=== PATIENT | female | born 1970 | race Caucasian/White ===

== ENCOUNTER 2022-12-30 23:55 | Emergency (ER) | payer MEDICARE, MEDICAID, SELFPAY ==
[2022-12-30 23:55] VITALS: BP 160/80; PULSE 96; RESP 16; O2SAT 96; BMI 37.3
--- NOTE | 2022-12-31 00:04 | XR_ITS ---
The [address] [address] Patient Name: COLETTE DINH MRN: [id number] date: 1970 Sex: F Assigned Patient Location: ED.MAIN Current Patient Location: ED.MAIN Accession/Order Number: [id number] Exam Date: 12/31/2022 00:20 Report Date: 12/31/2022 01:29 At the request of: SHIRIN WOLFE Procedure: XR ribs LT min 3V w CXR1V EXAM: XR ribs LT min 3V w CXR1V HISTORY: fall, anterolateral left rib injury COMPARISON: None. TECHNIQUE: One view of the chest with frontal and oblique views of the left ribs were obtained. FINDINGS: Cholecystectomy clips are noted. The cardiac silhouette is normal in size. There are medial left basilar opacities. There is no significant pneumothorax or pleural effusion. No acute osseous abnormality is seen. No definite displaced rib fracture is seen. XR/XR ribs LT min 3V w CXR1V IMPRESSION: 1. Medial left basilar opacities which are felt to represent atelectasis. 2. No definite displaced rib fracture is seen. Electronically authenticated by: Thea RAI Date: 12/31/2022 01:29
--- NOTE | 2022-12-31 00:05 | ED_ITS ---
HPI - General Adult General Chief complaint: Fall Stated complaint: FALL L KNEE Time Seen by Provider: 12/31/22 00:00 History of Present Illness HPI narrative: patient arrived by EMS for evaluation of left anterolateral rib cage pain after a fall about 4.5 hours ago. She was walking when she tripped on sidewalk edging and fell forward and to the left, landing onto bent knees, scraping the left knee and striking the left anterolateral chest wall on the ground. No head injury or LOC. NO neck or back injury. No injury to the left UE. She scraped the left knee and applied a bandage and libia wrap to the left knee. She took some tylenol for pain. She said that the left sided rib pain worsened so she called 911 around 1135pm tonight. She received 4mg Zofran IV and 2mg Morphine IV by EMS. Related Data Home Medications Medication Instructions Recorded Confirmed albuterol sulfate 90 mcg/actuation 2 inh inhalation PRN PRN shortness 12/31/22 12/31/22 aerosol inhaler of breath or wheezing aspirin 81 mg capsule 81 mg PO DAILY 12/31/22 12/31/22 atorvastatin 40 mg tablet 40 mg PO DAILY 12/31/22 12/31/22 carvedilol 6.25 mg tablet 6.25 mg PO Q12H 12/31/22 12/31/22 esomeprazole magnesium 40 mg 40 mg PO Q24H 12/31/22 12/31/22 capsule,delayed release fluticasone propionate 110 3 puff inhalation PRN PRN 12/31/22 12/31/22 mcg/actuation HFA aerosol inhaler bronchospasm (Flovent HFA) glipizide 10 mg tablet 20 mg PO BID 12/31/22 12/31/22 hydrochlorothiazide 12.5 mg capsule 12.5 mg PO DAILY 12/31/22 12/31/22 insulin glargine U-300 conc 300 unit subcut 12/31/22 unit/mL (1.5 mL) subcutaneous pen (Bill Astudillo U-300 Insulin) insulin lispro 100 unit/mL subcut 12/31/22 subcutaneous pen lisinopril 5 mg tablet 5 mg PO DAILY 12/31/22 12/31/22 losartan 25 mg tablet 25 mg PO DAILY 12/31/22 12/31/22 metformin 1,000 mg tablet 1,000 mg PO BID 12/31/22 12/31/22 Previous Rx's Medication Instructions Recorded nabumetone 750 mg tablet 750 mg PO BID PRN pain #20 tabs 12/31/22 Allergies Allergy/AdvReac Type Severity Reaction Status Date / Time latex Allergy Intermediate itch Verified 12/31/22 00:07 codine AdvReac Intermediate Vomiting Uncoded 12/31/22 00:07 Exam Narrative Exam Narrative: Nurses note and vital signs reviewed and patient is not hypoxic. afebrile General: The patient appears well and in no apparent distress. Patient is resting comfortably on cart. GCS = 15. Skin: Warm, dry, no pallor noted. Head: Normocephalic, atraumatic Neck: Supple, trachea mid-line. Full ROM and no cervical spinal tenderness. Eyes: PERRLA, EOMI ENT: TMs clear, no hemotympanum detected, no blood in posterior oropharynx Cardiovascular: Regular Rate and Rhythm Respiratory: Patient is in no distress, no accessory muscle use, lungs are clear to auscultation, no wheezing, rales or rhonchi Chest Wall: anterolateral left rib cage tenderness just below the left breast at the midaxillary and nipple lines - no flail chest, contusion, abrasion, or other external signs of chest trauma. Back: No thoracic or lumbar tenderness to palpation. Negative straight leg raise bilaterally. Musculoskeletal: Soft tissue abrasion to the left knee at the patella - no sign of long bone fracture, no upper or lower extremity tenderness or swelling. Pulses at femoral, DP, PT, and popliteal were 2+ bilaterally. Moves all four extremities in all modalities with 5/5 strength. GI: Normal bowel sounds, no tenderness to palpation, no masses appreciated. No rebound, guarding, or rigidity noted. Neurological: A&O x4, normal equal harpsichord maker strength, normal finger to nose, normal speech, normal coordination, normal motor, normal sensory. Psychiatric: Cooperative Constitutional Vital Signs, click to edit/add: Last Vital Signs Pulse 96 H 12/30/22 23:55 Resp 16 12/30/22 23:55 BP 160/80 H 12/30/22 23:55 Pulse Ox 96 12/30/22 23:55 O2 Del Method Room Air 12/30/22 23:55 Course Vital Signs Vital signs: Vital Signs Pulse Rate 96 H 12/30/22 23:55 Respiratory Rate 16 12/30/22 23:55 Blood Pressure 160/80 H 12/30/22 23:55 Pulse Oximetry 96 12/30/22 23:55 Oxygen Delivery Method Room Air 12/30/22 23:55 Pulse Rate 96 H 12/30/22 23:55 Respiratory Rate 16 12/30/22 23:55 Blood Pressure 160/80 H 12/30/22 23:55 Pulse Oximetry 96 12/30/22 23:55 Oxygen Delivery Method Room Air 12/30/22 23:55 Medical Decision Making MDM Narrative Medical decision making narrative: patient already received morphine IV from EMS. Xrays of the left ribs and chest obtained. ED nurse bandaged an reapplied libia wrap to left knee. No acute rib fractures identified. Patient informed of my rad interpretation and was discharged home with prescriptions for relafen and robaxin to be taken at home.. Imaging Data xr ribs and chest: My impression: no acute fracture, PTX or other acute cardiopulmonary abnormality identified Discharge Plan Discharge Chief Complaint: Fall Clinical Impression: Contusion of rib on left side, Abrasion of knee, left Patient Disposition: Home, Self-Care Time of Disposition Decision: 01:26 Prescriptions / Home Meds: New nabumetone 750 mg tablet 750 mg PO BID PRN (Reason: pain) Qty: 20 0RF No Action albuterol sulfate 90 mcg/actuation HFA aerosol inhaler 2 inh INHALATION PRN PRN (Reason: shortness of breath or wheezing) insulin lispro 100 unit/mL insulin pen SUBCUT Bill Astudillo U-300 Insulin 300 unit/mL (1.5 mL) insulin pen SUBCUT aspirin 81 mg capsule 81 mg PO DAILY atorvastatin 40 mg tablet 40 mg PO DAILY losartan 25 mg tablet 25 mg PO DAILY fluticasone propionate [Flovent HFA] 110 mcg/actuation HFA aerosol inhaler 3 puff INHALATION PRN PRN (Reason: bronchospasm) esomeprazole magnesium 40 mg capsule,delayed release(DR/EC) 40 mg PO Q24H glipizide 10 mg tablet 20 mg PO BID hydrochlorothiazide 12.5 mg capsule 12.5 mg PO DAILY lisinopril 5 mg tablet 5 mg PO DAILY metformin 1,000 mg tablet 1,000 mg PO BID carvedilol 6.25 mg tablet 6.25 mg PO Q12H Instructions: Abrasion (ED), Rib Contusion (ED) Stand Alone Forms: Portal Instructions Referrals: Shayy Ly MD [Primary Care Provider] - 1 week
[2022-12-31 01:34] VITALS: BP 140/70
== END 2022-12-31 02:00 | disposition home or self-care (01) ==
PROVIDERS: Emergency Provider Emergency Medicine; PCP Family Medicine
DX: S20.212A Contusion of left front wall of thorax, initial encounter (principal); S80.212A Abrasion, left knee, initial encounter; W01.10XA Fall on same level from slipping, tripping and stumbling with subsequent striking against unspecified object, initial encounter; Z79.82 Long term (current) use of aspirin; Z79.899 Other long term (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 therapy; Z79.4 Long term (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 of insulin; Z79.84 Long term (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 of oral hypoglycemic drugs
CPT/HCPCS: 71101; 99283

== ENCOUNTER 2023-03-22 08:27 | Outpatient (OUT) | payer MEDICARE, MEDICAID, SELFPAY ==
[2023-03-22 10:03] LABS: Estimated Average Glucose 324 mg/dL; Glycohemoglobin A1C 12.9 % (4.5-6.2)
== END 2023-03-22 08:28 | disposition home or self-care (01) ==
LOC: LAB 08:29
PROVIDERS: PCP Family Medicine; Visit Provider Family Medicine
DX: E11.65 Type 2 diabetes mellitus with hyperglycemia (principal)
CPT/HCPCS: 36415; 83036

== ENCOUNTER 2023-04-25 23:05 | Emergency (ER) | payer MEDICARE, MEDICAID, SELFPAY ==
--- NOTE | 2023-04-25 23:27 | ED_ITS ---
HPI - Nausea/Vomiting/Diarrhea General Chief complaint: Nausea/Vomiting/Diarrhea Stated complaint: ABD Pain Time Seen by Provider: 04/25/23 23:22 History of Present Illness HPI Narrative: ill past 3 days. complains of elevated BS. Emesis x4 today. urine felt hot and she was taking OTC Azo. No diarrhea or dyspnea Related Data Home Medications Medication Instructions Recorded Confirmed albuterol sulfate 90 mcg/actuation 2 inh inhalation PRN PRN shortness 12/31/22 12/31/22 aerosol inhaler of breath or wheezing aspirin 81 mg capsule 81 mg PO DAILY 12/31/22 12/31/22 atorvastatin 40 mg tablet 40 mg PO DAILY 12/31/22 12/31/22 carvedilol 6.25 mg tablet 6.25 mg PO Q12H 12/31/22 12/31/22 esomeprazole magnesium 40 mg 40 mg PO Q24H 12/31/22 12/31/22 capsule,delayed release fluticasone propionate 110 3 puff inhalation PRN PRN 12/31/22 12/31/22 mcg/actuation HFA aerosol inhaler bronchospasm (Flovent HFA) glipizide 10 mg tablet 20 mg PO BID 12/31/22 12/31/22 hydrochlorothiazide 12.5 mg capsule 12.5 mg PO DAILY 12/31/22 12/31/22 insulin glargine U-300 conc 300 unit subcut 12/31/22 unit/mL (1.5 mL) subcutaneous pen ([employer] SoloStar U-300 Insulin) insulin lispro 100 unit/mL subcut 12/31/22 subcutaneous pen lisinopril 5 mg tablet 5 mg PO DAILY 12/31/22 12/31/22 losartan 25 mg tablet 25 mg PO DAILY 12/31/22 12/31/22 metformin 1,000 mg tablet 1,000 mg PO BID 12/31/22 12/31/22 Previous Rx's Medication Instructions Recorded nabumetone 750 mg tablet 750 mg PO BID PRN pain #20 tabs 12/31/22 Allergies Allergy/AdvReac Type Severity Reaction Status Date / Time latex Allergy Intermediate itch Verified 12/31/22 00:07 codine AdvReac Intermediate Vomiting Uncoded 12/31/22 00:07 Review of Systems ROS Status of ROS 10 or more systems reviewed and unremark able except as noted in history and below PFSH PFSH Social History Smoking status: Never smoker Exam Constitutional Vital Signs, click to edit/add: Last Vital Signs Pulse 87 04/26/23 04:36 Resp 16 04/26/23 04:36 BP 140/80 04/26/23 04:36 Pulse Ox 94 L 04/26/23 04:36 O2 Del Method Room Air 04/26/23 04:36 Common normals: no apparent distress, oriented x3, healthy appearing, alert and well nourished Eye Common normals: EOMs intact bilaterally and conjunctivae normal Respiratory Common normals: normal respiratory effort, no retractions, no use of accessory muscles and clear to auscultation bilaterally Cardio Common normals: regular rate, regular rhythm, S1 normal heart sound and S2 normal heart sound GI Other: suprapubic tenderness Extremity Common normals: normal to inspection and full ROM Other: trace ankle edema bilat Neuro Common normals: oriented x3, CN's II-XII intact bilaterally, moves all extremities and no focal motor deficits Psych Appearance: grossly normal Course Vital Signs Vital signs: Vital Signs Pulse Rate 89 04/26/23 02:01 Respiratory Rate 14 04/26/23 02:01 Blood Pressure 156/80 H 04/26/23 02:01 Pulse Oximetry 95 04/26/23 02:01 Oxygen Delivery Method Room Air 04/26/23 02:01 Pulse Rate 87 04/26/23 04:36 Respiratory Rate 16 04/26/23 04:36 Blood Pressure 140/80 04/26/23 04:36 Pulse Oximetry 94 L 04/26/23 04:36 Oxygen Delivery Method Room Air 04/26/23 04:36 MDM - Nausea/Vomiting/Diarrhea MDM Narrative Medical decision making narrative: patient presents with suprapubic pain. States her BS was high at home and she vomited. On exam found to have suprapubic tenderness. labs with hyponatremia that will require follow up as well as mild hypokalemia. abnormal labs likely related to diuretic use. UA positive. cxray WNL. Patient not in DKA. RBS 268 and Ph WNL. patient feeling better after hydration and antiemetics. Given dose of Rocephin and discharged with prescription for bactrim and zofran. Is to follow up with her doctor for recheck including recheck of her labs Lab Data Labs: Lab Results 04/25/23 04/26/23 04/26/23 Range/Units 23:44 01:26 01:50 WBC 11.0 (4.0-11.0) 10^3/uL RBC 4.60 (4.20-5.40) 10^6/uL Hgb 13.5 (12.0-16.0) g/dL Hct 39.7 (36.0-48.0) % MCV 86.3 (81.0-99.0) fL MCH 29.3 (26.7-34.0) pg MCHC 34.0 (29.9-35.2) g/dL RDW 12.3 (11.0-15.0) % Plt Count 252 (150-450) 10^3/uL MPV 10.8 (9.5-13.5) fL Neut % (Auto) 58.2 (43.0-75.0) % Lymph % (Auto) 32.0 (20.5-60.0) % [place] % (Auto) 7.0 (1.7-12.0) % Eos % (Auto) 2.0 (0.9-7.0) % Baso % (Auto) 0.5 (0.2-2.0) % Neut # (Auto) 6.4 (1.4-6.5) 10^3/uL Lymph # (Auto) 3.5 (1.2-3.8) 10^3/uL [place] # (Auto) 0.8 (0.3-0.8) 10^3/uL Eos # (Auto) 0.2 (0.0-0.7) 10^3/uL Baso # (Auto) 0.1 (0.0-0.1) 10^3/uL Abs Immat Gran (auto) 0.03 (0.00-0.03) 10^3/uL Imm/Tot Granulo (auto) 0.3 (0.0-0.5) % VBG pH 7.367 (7.330-7.430) VBG pCO2 46.3 (40.0-52.0) mmHg Sodium 128 L (136-145) mmol/L Potassium 3.2 L (3.5-5.1) mmol/L Chloride 93 L (98-107) mmol/L Carbon Dioxide 28.1 (21.0-32.0) mmol/L Anion Gap 10.1 BUN 14.0 (7.0-18.0) mg/dL Creatinine 0.77 (0.55-1.02) mg/dL Est GFR ( Amer) >60 (>=60) Est GFR (Non-Af Amer) >60 (>=60) BUN/Creatinine Ratio 18.2 Glucose 268 H (74-106) mg/dL Lactate 2.3 H* (0.4-2.0) mmol/L Calcium 9.0 (8.5-10.1) mg/dL Total Bilirubin 0.4 (0.2-1.0) mg/dL AST 37 (15-37) U/L ALT 83 H (14-59) U/L Alkaline Phosphatase 123 H (46-116) U/L Troponin I High Sens 19.1 (4.0-51.3) pg/mL Total Protein 6.8 (6.4-8.2) g/dL Albumin 2.9 L (3.4-5.0) g/dL Globulin 3.9 g/dL Albumin/Globulin Ratio 0.7 Lipase 70.0 (16.0-77.0) U/L Urine Color Lt. yellow (YELLOW) Urine Clarity Clear (CLEAR) Urine pH 5.5 (5.0-9.0) Ur Specific [place] 1.025 (1.005-1.025) Urine Protein 30 A (NEG/TRACE) mg/dL Urine Glucose (UA) 100 A (NEGATIVE) mg/dL Urine Ketones Negative (NEGATIVE) mg/dL Urine Occult Blood Moderate A (NEGATIVE) Urine Nitrite Negative (NEGATIVE) Urine Bilirubin Negative (NEGATIVE) Urine Urobilinogen 0.2 (0.2-1.0) EU/dL Ur Leukocyte Esterase Moderate A (NEGATIVE) Urine RBC 0-2 (0-2) #/HPF Urine WBC 5-10 A (NONE SEEN) #/HPF Ur Squamous Epith Cells Rare (NONE/RARE) #/LPF Urine Crystals None seen (None Seen) #/HPF Urine Bacteria None seen (NONE SEEN) #/HPF Urine Casts None seen (NONE SEEN) #/LPF Urine Mucus None seen (NONE SEEN) POC Glucose (74-106) mg/dL 12/26/23 12/26/23 Range/Units 02:51 03:53 WBC (4.0-11.0) 10^3/uL RBC (4.20-5.40) 10^6/uL Hgb (12.0-16.0) g/dL Hct (36.0-48.0) % MCV (81.0-99.0) fL MCH (26.7-34.0) pg MCHC (29.9-35.2) g/dL RDW (11.0-15.0) % Plt Count (150-450) 10^3/uL MPV (9.5-13.5) fL Neut % (Auto) (43.0-75.0) % Lymph % (Auto) (20.5-60.0) % [place] % (Auto) (1.7-12.0) % Eos % (Auto) (0.9-7.0) % Baso % (Auto) (0.2-2.0) % Neut # (Auto) (1.4-6.5) 10^3/uL Lymph # (Auto) (1.2-3.8) 10^3/uL [place] # (Auto) (0.3-0.8) 10^3/uL Eos # (Auto) (0.0-0.7) 10^3/uL Baso # (Auto) (0.0-0.1) 10^3/uL Abs Immat Gran (auto) (0.00-0.03) 10^3/uL Imm/Tot Granulo (auto) (0.0-0.5) % VBG pH (7.330-7.430) VBG pCO2 (40.0-52.0) mmHg Sodium (136-145) mmol/L Potassium (3.5-5.1) mmol/L Chloride (98-107) mmol/L Carbon Dioxide (21.0-32.0) mmol/L Anion Gap BUN (7.0-18.0) mg/dL Creatinine (0.55-1.02) mg/dL Est GFR ( Amer) (>=60) Est GFR (Non-Af Amer) (>=60) BUN/Creatinine Ratio Glucose (74-106) mg/dL Lactate 1.3 (0.4-2.0) mmol/L Calcium (8.5-10.1) mg/dL Total Bilirubin (0.2-1.0) mg/dL AST (15-37) U/L ALT (14-59) U/L Alkaline Phosphatase (46-116) U/L Troponin I High Sens (4.0-51.3) pg/mL Total Protein (6.4-8.2) g/dL Albumin (3.4-5.0) g/dL Globulin g/dL Albumin/Globulin Ratio Lipase (16.0-77.0) U/L Urine Color (YELLOW) Urine Clarity (CLEAR) Urine pH (5.0-9.0) Ur Specific [place] [address] [place] (1.005-1.025) Urine Protein (NEG/TRACE) mg/dL Urine Glucose (UA) (NEGATIVE) mg/dL Urine Ketones (NEGATIVE) mg/dL Urine Occult Blood (NEGATIVE) Urine Nitrite (NEGATIVE) Urine Bilirubin (NEGATIVE) Urine Urobilinogen (0.2-1.0) EU/dL Ur Leukocyte Esterase (NEGATIVE) Urine RBC (0-2) #/HPF Urine WBC (NONE SEEN) #/HPF Ur Squamous Epith Cells (NONE/RARE) #/LPF Urine Crystals (None Seen) #/HPF Urine Bacteria (NONE SEEN) #/HPF Urine Casts (NONE SEEN) #/LPF Urine Mucus (NONE SEEN) POC Glucose 279 H (74-106) mg/dL Imaging Data Chest x-ray: Radiologist's impression: xam Date: 04/25/2023 23:40 Report Date: 04/26/2023 01:34 At the request of: SAWYER MERINO Procedure: XR chest 1V EXAMINATION:XR chest 1V INDICATION:vomiting COMPARISON:12/31/2022 TECHNIQUE:A single frontal view of the chest is submitted. FINDINGS: The cardiac silhouette is accentuated due to the technique of the exam. The pulmonary vascularity is within normal limits. There is bibasilar atelectasis related to hypoventilatory changes in the chest. No suspicious infiltrates are present. There is no costophrenic angle blunting. XR/XR chest 1V IMPRESSION: Bibasilar atelectasis. Unremarkable plain film examination of the chest otherwise. Discharge Plan Discharge Chief Complaint: Nausea/Vomiting/Diarrhea Clinical Impression: UTI (urinary tract infection), Nausea & vomiting, Acute hyponatremia Patient Disposition: Home, Self-Care Prescriptions / Home Meds: No Action albuterol sulfate 90 mcg/actuation HFA aerosol inhaler 2 inh INHALATION PRN PRN (Reason: shortness of breath or wheezing) insulin lispro 100 unit/mL insulin pen SUBCUT [employer] SoloStar U-300 Insulin 300 unit/mL (1.5 mL) insulin pen SUBCUT aspirin 81 mg capsule 81 mg PO DAILY atorvastatin 40 mg tablet 40 mg PO DAILY losartan 25 mg tablet 25 mg PO DAILY fluticasone propionate [Flovent HFA] 110 mcg/actuation HFA aerosol inhaler 3 puff INHALATION PRN PRN (Reason: bronchospasm) esomeprazole magnesium 40 mg capsule,delayed release(DR/EC) 40 mg PO Q24H glipizide 10 mg tablet 20 mg PO BID hydrochlorothiazide 12.5 mg capsule 12.5 mg PO DAILY lisinopril 5 mg tablet 5 mg PO DAILY metformin 1,000 mg tablet 1,000 mg PO BID carvedilol 6.25 mg tablet 6.25 mg PO Q12H nabumetone 750 mg tablet 750 mg PO BID PRN (Reason: pain) Qty: 20 0RF Instructions: Urinary Tract Infection in Women (DC), Acute Nausea and Vomiting (DC) Stand Alone Forms: Portal Instructions Referrals: Shayy Ly MD [Primary Care Provider] - 1 week Discharge Date/Time: 04/26/23 04:38
--- NOTE | 2023-04-25 23:29 | XR_ITS ---
The [address] [address] Patient Name: COLETTE DINH MRN: [id number] date: 1970 Sex: F Assigned Patient Location: ER Current Patient Location: ER Accession/Order Number: [id number] Exam Date: 04/25/2023 23:40 Report Date: 04/26/2023 01:34 At the request of: SAWYER MERINO Procedure: XR chest 1V EXAMINATION:XR chest 1V INDICATION:vomiting COMPARISON:12/31/2022 TECHNIQUE:A single frontal view of the chest is submitted. FINDINGS: The cardiac silhouette is accentuated due to the technique of the exam. The pulmonary vascularity is within normal limits. There is bibasilar atelectasis related to hypoventilatory changes in the chest. No suspicious infiltrates are present. There is no costophrenic angle blunting. XR/XR chest 1V IMPRESSION: Bibasilar atelectasis. Unremarkable plain film examination of the chest otherwise. Electronically authenticated by: JEISON JORDAN Date: 04/26/2023 01:34
[2023-04-25 23:51] LABS: Basophils Absolute Auto 0.1 10^3/uL (0.0-0.1); Basophils Percent Auto 0.5 % (0.2-2.0); Eosinophils Absolute Auto 0.2 10^3/uL (0.0-0.7); Hematocrit 39.7 % (36.0-48.0); Hemoglobin 13.5 g/dL (12.0-16.0); Immature Granulocytes Abs Auto 0.03 10^3/uL (0.00-0.03); Immature Granulocytes Pct Auto 0.3 % (0.0-0.5); Lymphocytes Absolute Auto 3.5 10^3/uL (1.2-3.8); Mean Corpuscular Hemoglobin 29.3 pg (26.7-34.0); Mean Corpuscular Volume 86.3 fL (81.0-99.0); Mean Platelet Volume 10.8 fL (9.5-13.5); Monocytes Absolute Auto 0.8 10^3/uL (0.3-0.8); Neutrophils Absolute Auto 6.4 10^3/uL (1.4-6.5); Neutrophils Percent Auto 58.2 % (43.0-75.0); Platelet Count 252 10^3/uL (150-450); Red Cell Distribution Width 12.3 % (11.0-15.0)
[2023-04-26] MEDS: 0.9 % SODIUM CHLORIDE 1,000 ML 999 ML IV ×2 (00:07→03:02)
[2023-04-26] MEDS: KETOROLAC TROMETHAMINE 30 MG/ML VIAL IVP (00:08)
[2023-04-26] MEDS: ONDANSETRON PF 4 MG/2 ML VIAL IV (00:08)
[2023-04-26 00:13] LABS: Alanine Aminotransferase 83 U/L (14-59); Albumin Globulin Ratio 0.7; Albumin Level 2.9 g/dL (3.4-5.0); Alkaline Phosphatase 123 U/L (46-116); Anion Gap 10.1; Aspartate Amino Transferase 37 U/L (15-37); BUN Creatinine Ratio 18.2; Bilirubin Total 0.4 mg/dL (0.2-1.0); Carbon Dioxide 28.1 mmol/L (21.0-32.0); Chloride 93 mmol/L (98-107); Estimated GFR (African America >60 (>=60); Estimated GFR (Non-African Ame >60 (>=60); Globulin 3.9 g/dL; Glucose 268 mg/dL (74-106); Potassium 3.2 mmol/L (3.5-5.1); Sodium 128 mmol/L (136-145); Total Protein 6.8 g/dL (6.4-8.2); Troponin I High Sensitivity 19.1 pg/mL (4.0-51.3)
[2023-04-26 00:18] LABS: Lactate/Lactic Acid 2.3 mmol/L (0.4-2.0)
[2023-04-26 01:34] LABS: PCO2 VBG 46.3 mmHg (40.0-52.0); pH VBG 7.367 (7.330-7.430)
[2023-04-26 02:01] VITALS: BP 156/80; PULSE 89; RESP 14; O2SAT 95
[2023-04-26 02:03] LABS: Bilirubin Urine NEGATIVE (NEGATIVE); Blood Urine MODERATE (NEGATIVE); Clarity Urine CLEAR (CLEAR); Color Urine LT. YELLOW (YELLOW); Glucose Urine UA 100 mg/dL (NEGATIVE); Ketones Urine NEGATIVE (NEGATIVE); Leukocyte Esterase Urine MODERATE (NEGATIVE); Nitrite Urine NEGATIVE (NEGATIVE); Protein Urine 30 mg/dL (NEG/TRACE); Specific Gravity Urine 1.025 (1.005-1.025); Urobilinogen Urine 0.2 EU/dL (0.2-1.0); pH Urine 5.5 (5.0-9.0)
[2023-04-26 02:05] LABS: Urine Microscopic Indicated YES
[2023-04-26 02:21] LABS: Bacteria Urine NONE SEEN #/HPF (NONE SEEN); Cast Seen? NONE SEEN #/LPF (NONE SEEN); Crystals Seen? None Seen #/HPF (None Seen); Mucus Urine NONE SEEN (NONE SEEN); RBC Urine 0-2 #/HPF (0-2); Squamous Epithelial Cell Urine RARE #/LPF (NONE/RARE)
[2023-04-26] MEDS: CEFTRIAXONE 1,000 MG in 0.9 % SODIUM CHLORIDE 50 ML 100 MG IV (03:03)
[2023-04-26 03:14] LABS: Lactate/Lactic Acid 1.3 mmol/L (0.4-2.0)
[2023-04-26 03:55] LABS: Glucometer 279 mg/dL (74-106)
[2023-04-26 04:36] VITALS: BP 140/80; PULSE 87; RESP 16; O2SAT 94
== END 2023-04-26 04:38 | disposition home or self-care (01) ==
PROVIDERS: Emergency Provider Internal Medicine; PCP Family Medicine
DX: N39.0 Urinary tract infection, site not specified (principal); R11.2 Nausea with vomiting, unspecified; E87.1 Hypo-osmolality and hyponatremia; Z79.82 Long term (current) use of aspirin; Z79.4 Long term (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 of insulin; Z79.84 Long term (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 of oral hypoglycemic drugs; Z79.899 Other long term (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 therapy
CPT/HCPCS: 36415; 36600; 71045; 80053; 81001; 82800; 82805; 83605; 83690; 84484; 85025; 96361; 96365; 96375; 99284

== ENCOUNTER 2023-05-06 16:14 | Emergency (ER) | payer MEDICARE, MEDICAID, SELFPAY ==
--- OUTSIDE RECORDS SUMMARY | 2023-05-06 16:20 | XMS_ITS | CCD ---
Author Name Unknown Address [address] [facility] [address] [place] [address] Organization [facility] Care Team Providers Care Rehabilitation Team Lead Name Role Phone PHYSICIAN, DEFAULT Unavailable Unavailable PHYSICIAN, DEFAULT Unavailable Unavailable MATT MIDDLETON Unavailable Unavailable PHYSICIAN, DEFAULT Unavailable Unavailable PHYSICIAN, DEFAULT Unavailable Unavailable MATT MIDDLETON Unavailable Unavailable Shayy Dela Cruz Unavailable JOSE DE JESUS, DR SHAYY Reyes Primary Care Unavailable MALCOLM EVANS Consulting Unavailable MALCOLM EVANS Attending Unavailable MALCOLM EVANS Admitting Unavailable JOSE DE JESUS, DR SHAYY Reyes Consulting Unavailable DELA CRUZ, DR SHAYY Reyes Attending Unavailable DELA CRUZ, DR SHAYY Reyes Admitting Unavailable DELA CRUZ, DR SHAYY Reyes Primary Care Unavailable DANIEL, JORDYN Ayon Attending Unavailable JORDYN SANCHEZ Admitting Unavailable Narinder Lan Consulting Unavailable DELA CRUZ, DR SHAYY Reyes Primary Care Unavailable JORDYN SANCHEZ Consulting Unavailable DELA CRUZ, DR SHAYY Reyes Primary Care Unavailable MARKER ., DR FOWLER Attending Unavailable GRECHNY ., SHAY CESPEDES Consulting Unavailabl e MARKER ., DR FOWLER Admitting Unavailable JAVAD ROB Consulting Unavailable HAY ., DR CARPIO Consulting Unavailable HAY ., DR CARPIO Attending Unavailable DELA CRUZ, DR SHAYY Reyes Primary Care Unavailable HAY ., DR CARPIO Admitting Unavailable DELA CRUZ, DR SHAYY Reyes Attending Unavailable DELA CRUZ, DR SHAYY Reyes Admitting Unavailable Narinder Lan Consulting Unavailable DELA CRUZ, DR SHAYY Reyes Primary Care Unavailable DELA CRUZ, DR SHAYY Reyes Consulting Unavailable DELA CRUZ, DR SHAYY Reyes Consulting Unavailable DELA CRUZ, DR SHAYY Reyes Attending Unavailable DELA CRUZ, DR SHAYY Reyes Admitting Unavailable DELA CRUZ, DR SHAYY Reyes Primary Care Unavailable DELA CRUZ, DR SHAYY Reyes Primary Care Unavailable MISC, DR IVERSON Consulting Unavailable MISC, DR IVERSON Attending Unavailable MISC, DR IVERSON Admitting Unavailable DELA CRUZ, DR SHAYY Reyes Attending Unavailable DELA CRUZ, DR SHAYY Reyes Admitting Unavailable DELA CRUZ, DR SHAYY Reyes Primary Care Unavailable Narinder Lan Consulting Unavailable DELA CRUZ, DR SHAYY Reyes Consulting Unavailable Shayy Dela Cruz Admitting Unavailable Shayy Dela Cruz Attending Unavailable MARQUES MOROCHO Attending Unavailable CHRISTEN BENITES Attending Unavailable MALCOLM EVANS Attending Unavailable Lynne Hernandez Unavailable Allergies Allergy Classification Reported Allergen(s) Allergy Type Date of Onset Reaction(s) Facility (1 source) codeine Drug Allergy 9 [facility] Repository (3 sources) Latex; Translations: [LATEX] Drug allergy (disorder) 9 [facility]ository (19 sources) Codeine; Translations: [CODEINE] Drug Allergy 0 nausea [facility] Repository (12 sources) Latex Drug allergy sores on skin [employer] Other (1 source) Codeine Drug Allergy [facility] Repository (1 source) atorvastatin; Translations: [ATORVASTATIN] Drug Allergy 3 [facility] Repository Medications Current Medications Medication Drug Class(es) Dates Sig (Normalized) Sig (Original) Albuterol (18 sources) beta2-Adrenergic Agonist take 2 puff(s) by inhalation every four hours as needed Albuterol Sulfate HFA 108 (90 Base) MCG/ACT INHALE 2 PUFFS EVERY 4 HOURS NEEDED for 17 Active take 2 puff(s) by in halation every four hours as needed Albuterol Sulfate HFA 108 (90 Base) MCG/ACT INHALE 2 PUFFS EVERY 4 HOURS NEEDED for 17 Active ProAir HFA Activ e Albuterol Sulfate 108 (90 Base) MCG/ACT (6 sources) take 1 puff(s) by inhalation every four hours as needed Albuterol Sulfate 108 (90 Base) MCG/ACT 1 puff as needed Inhalation every 4 hrs Active Alcohol Swabs - (5 sources) Alcohol Swabs - as directed Active Aspir-81 (12 sources) Aspir-81 Active carvedilol 6.25 mg oral tablet (5 sources) alpha-Adrenergic Petty, beta-Adrenergic Petty take 1 tablet by mouth every twenty-four hours Carvedilol 6.25 MG 1 tablet once a day Active cetirizine hydrochloride 10 mg oral tablet (12 sources) Histamine-1 Receptor Antagonist take 1 tablet by mouth every twenty-four hours ZyrTEC Allergy 10 MG 1 tablet Orally Once a day Active esomeprazole 40 mg delayed release oral capsule (12 sources) Proton Pump Inhibitor take 1 capsule by mouth once daily Esomeprazole Magnesium 40 mg TAKE ONE CAPSULE BY MOUTH DAILY 90 for 90 Active fluticasone propionate 0.05 mg/actuat metered dose nasal spray (20 sources) Corticosteroid take 2 puff(s) by mouth twice daily Flovent HFA 110 MCG/ACT INHALE 2 PUFFS BY MOUTH TWICE A DAY for 90 Active take 2 spray(s) nasal route once daily Fluticasone Propionate 50 MCG/ACT 2 spray in each nostril Nasally Once a day Active take 2 spray(s) nasal route once daily Fluticasone Propionate 50 MCG/ACT 2 spray in each nostril Nasally Once a day Active glipiZIDE 10 mg oral tablet (12 sources) Sulfonylurea take 2 tablets by mouth twice daily glipiZIDE 10 mg TAKE 2 (TWO) TABLET BY MOUTH TWO TIMES DAILY for 90 Active hydroCHLOROthiazide 12.5 mg oral capsule (7 sources) Thiazide Diuretic take 1 capsule by mouth every twenty-four hours hydroCHLOROthiazide 12.5 MG 1 capsule in the morning Orally Once a day Active 1.5 ml insulin glargine 300 unt/ml pen injector (12 sources) Insulin Analog Toujeo SoloStar 300 UNIT/ML INJECT 75U UNDER SKIN TWICE DAILY for 79 Active 3 ml insulin lispro 100 unt/ml pen injector (18 sources) Insulin Analog HumaLOG KwikPen 100 UNIT/ML as directed Subcutaneous three times daily Active Insulin Lispro ( 1 Unit Dial) 100 UNIT/ML INJECT DIRECTED PER SLIDING SCALE THREE TIMES A DAY (EXPECTED 30 TO 40 UNITS DAILY) for 90 Active isopropyl alcohol 0.7 ml/ml medicated pad (7 sources) Alcohol Swabs - as directed 4 times a day for 30 days Active Alcohol Swabs - as directed Active losartan potassium 25 mg oral tablet (12 sources) Angiotensin 2 Receptor Petty take 1 tablet by mouth every twenty-four hours Losartan Potassium 25 MG 1 tablet Orally Once a day Active metFORMIN hydrochloride 1000 mg oral tablet (12 sources) Biguanide take 1 tablet by mouth twice daily metFORMIN HCl 1000 mg TAKE 1 (ONE) TABLET BY MOUTH TWO TIMES DAILY for 90 Active metoprolol tartrate 25 mg oral tablet (12 sources) beta-Adrenergic Petty take 1 tablet by mouth every twelve hours Metoprolol Tartrate 25 MG 1 tablet with food Orally Twice a day Active montelukast 10 mg oral tablet (12 sources) Leukotriene Receptor Antagonist take 1 tablet by mouth every twenty-four hours Singulair 10 MG 1 tablet Orally Once a day Active Nitro Sublingual 0.4 0.4mg (12 sources) Nitro Sublingual 0.4 0.4mg 1 Sublingual Every 5min x3 Active OneTouch Verio - (6 sources) OneTouch Verio - USE ONE STRIP FOUR TIMES A DAY for 30 days Active OneTouch Verio - USE ONE STRIP FOUR TIMES A DAY for 30 Active simvastatin 20 mg oral tablet (12 sources) HMG-CoA Reductase Inhibitor take 1 tablet by mouth every twenty-four hours Simvastatin 20 MG 1 tablet in the evening Orally Once a day Active Completed/Discontinued Medications Medication Drug Class(es) Dates Sig (Normalized) Sig (Original) azithromycin 250 mg oral tablet (12 sources) Macrolide Antimicrobial Start: 06-22-2022 Azithromycin 250 MG as directed Orally 2 tabs po today, then 1 tab daily x 4 more days for 5 Jun, Not-Taking/PRN tiZANidine 4 mg oral tablet (12 sources) Central alpha-2 Adrenergic Agonist take 1 tablet by mouth every eight hours tiZANidine HCl 4 MG 1 tablet as needed Orally Three times a day Not-Taking/PRN Problems Active Problems Problem Classification Problem Date Documented Date Episodic/Chronic Acquired foot deformities (12 sources) Acquired deformity of toe of left foot; Translations: [Acquired deformities of toe(s), unspecified, left foot] Episodic Acquired foot deformities (12 sources) Acquired deformity of toe; Translations: [Acquired deformities of toe(s), unspecified, right foot] Episodic Asthma (13 sources) Intermittent asthma; Translations: [Mild intermittent asthma, uncomplicated] Onset: 11-09-2021 Chronic Coronary atherosclerosis and other heart disease (19 sources) Atherosclerosis of coronary artery without angina pectoris; Translations: [Atherosclerotic heart disease of [place] coronary artery without angina pectoris] Onset: 03-24-2022 Chronic Diabetes mellitus with complications (20 sources) Hyperglycemia due to type 2 diabetes mellitus; Translations: [Type 2 diabetes mellitus with hyperglycemia] Onset: 05-19-2022 Chronic Diabetes mellitus without complication (1 source) Type 2 diabetes mellitus without complications; Translations: [TYPE 2 DM WITHOUT COMPLICATIONS] Onset: 04-08-2022 Chronic Disorders of lipid metabolism (19 sources) Dyslipidemia; Translations: [Hyperlipidemia, unspecified] Onset: 11-09-2021 Chronic Esophageal disorders (13 sources) Gastroesophageal reflux disease; Translations: [Gastro-esophageal reflux disease without esophagitis] Onset: 11-09-2021 Chronic Essential hypertension (3 sources) Essential (primary) hypertension; Translations: [ESSENTIAL PRIMARY HYPERTENSION] Onset: 05-19-2022 Chronic Mycoses (12 sources) Candidiasis of mouth; Translations: [Candidal stomatitis] Episodic Osteoarthritis (1 source) Unspecified osteoarthritis, unspecified site; Translations: [UNSPECIFIED OSTEOARTHRITIS UNS SITE] Onset: 11-09-2021 Chronic Other aftercare (2 sources) terminal gauger (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 of insulin; Translations: [QUALITY CONTROL CHEMIST CURRENT USE OF INSULIN] Onset: 04-08-2022 Episodic Other aftercare (6 sources) Long-term current use of insulin; Translations: [[facility] (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 of insulin] Episodic Other connective tissue disease (20 sources) Pain in limb; Translations: [Pain in right toe(s)] Episodic Other connective tissue disease (5 sources) Pain in right toe(s); Translations: [PAIN IN RIGHT TOES] Onset: 01-11-2022 Episodic Other non-traumatic joint disorders (5 sources) Shoulder pain; Translations: [Pain in left shoulder] Episodic Other non-traumatic joint disorders (7 sources) Pain in left shoulder; Translations: [Left shoulder pain] Episodic Other nutritional; endocrine; and metabolic disorders (12 sources) Obesity; Translations: [Obesity, unspecified] Chronic Other screening for suspected conditions (not mental disorders or infectious disease) (5 sources) Encounter for screening mammogram for malignant neoplasm of breast; Translations: [ENC SCR MAMMO MALIG NEOPLASM BREAST] Onset: 07-20-2022 Episodic Other upper respiratory infections (1 source) Acute maxillary sinusitis, unspecified Episodic Spondylosis; intervertebral disc disorders; other back problems (12 sources) Pain in thoracic spine; Translations: [Pain in thoracic spine] Episodic Unclassified (1 source) Encounter for screening for malignant neoplasm of cervix; Translations: [Encounter for screening for malignant neoplasm of cervix] Onset: 09-20-2022 Viral infection (12 sources) Herpes labialis; Translations: [Herpesviral vesicular dermatitis] Episodic Past or Other Problems Problem Classification Problem Date Documented Da te Episodic/Chronic Acute and chronic tonsillitis (1 source) Acute tonsillitis, unspecified; Translations: [ACUTE TONSILLITIS UNSPECIFIED] Onset: 11-09-2021 Episodic E Codes: Natural/environment (1 source) Other and unspecified overexertion or strenuous movements or postures, initial encounter; Translations: [OTH AND UNS OVREXRT/STRN MVMT/POS INT] Onset: 04-08-2022 Episodic Genitourinary symptoms and ill-defined conditions (1 source) Personal history of urinary (tract) infections; Translations: [PERS HX URINARY TRACT INFECTIONS] Onset: 04-08-2022 Episodic Other aftercare (1 source) terminal gauger (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; Translations: [INTERMEDIATE CURRENT USE OF ASPIRIN] Onset: 04-08-2022 Episodic Other aftercare (1 source) terminal gauger (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 of oral hypoglycemic drugs; Translations: [QUALITY CONTROL CHEMIST USE ORAL HYPOGLYCEMIC DX] Onset: 04-08-2022 Episodic Other aftercare (1 source) Other fpc (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 therapy; Translations: [OTH QUALITY CONTROL CHEMIST CURRENT DRUG THERAPY] Onset: 11-09-2021 Episodic Other connective tissue disease (4 sources) Pain in left foot; Translations: [PAIN IN LEFT FOOT] Onset: 04-14-2022 Episodic Other non-traumatic joint disorders (4 sources) Pain in right hip; Translations: [PAIN IN RIGHT HIP] Onset: 04-06-2022 Episodic Other upper respiratory disease (4 sources) Pain in throat; Translations: [PAIN IN THROAT] Onset: 11-05-2021 Episodic Phlebitis; thrombophlebitis and thromboembolism (1 source) Personal history of other venous thrombosis and embolism; Translations: [PERS HX OTH VENOUS THROMBOSIS AND EMBO] Onset: 11-09-2021 Episodic Residual codes; unclassified (1 source) Acquired absence of other specified parts of digestive tract; Translations: [ACQ ABSENCE OTH PART DIGESTV TRACT] Onset: 11-09-2021 Episodic Sprains and strains (1 source) Strain of muscle, fascia and tendon of right hip, initial encounter; Translations: [STRAIN MUSC FASC TENDON RT HIP INIT] Onset: 04-08-2022 Episodic Results Test Name Value Interpretation Reference Range Facility Office Visiton 12-13-2022 Follow-up visit [id number] Arlette Ramos 1970 F Date Provider Department Center 12/13/2022 3848-MARQUES MOROCHO [facility]ARD [facility] No family history on file Level of Service:07045 HI OFFICE/OUTPATIENT ESTABLISHED LOW MDM 20-29 MIN Reason for Visit and Comments: Follow-up [773824] - 4 mo follow up Normal [facility] IGP,Aptima HPV,Age Gdlnon PAP HPV Aptima Negative Normal Negative [facility] Comment on above: Order Comment: RAE ENRIQUEZ TECHNIQUE:: BROOM-ALONE GYNOCOLOGICAL BODY SITE:: CERVIX ENDOCERVIX Result Comment: This nucleic acid amplification test detects fourteen high- risk HPV types (16,18,31,33,35,39,45,51,52,56,58,59,66,68) without differentiation. PERFORMED BY: [address] [address] PATHOLOGIST HOUSE REGISTRY RN RUBINA RICCI M.D. Performed By: #### P AP [id number] #### [facility] , Pap Image Guided Note Normal . [facility] Comment on above: Order Comment: RAE ENRIQUEZ TECHNIQUE:: BROOM-ALONE GYNOCOLOGICAL BODY SITE:: CERVIX ENDOCERVIX Result Comment: TEST S RESULT FLAG UNITS REF RANGE LAB Clinician Provided Cytology Information Source.............Cervix;Endocervix No. of containers..01 ThinPrep Vial Age Brandono MARTINOG Joie... FLAG LEGEND: L-Low Normal,H-High Normal,LL-Alert Low,HH-Alert High <-Panic Low,>-Panic High,A-Abnormal,AA-Critical Abnormal Performed at: 01 =G [facility] [id number] Christina Burden MD, Performed By: #### P AP [id number] #### [facility] , Result Comment: TEST S RESULT FLAG UNITS REF RANGE LAB DIAGNOSIS: 02 NEGATIVE FOR INTRAEPITHELIAL LESION OR MALIGNANCY. CELLULAR CHANGES ASSOCIATED WITH ATROPHY ARE PRESENT. Specimen adequacy: 02 Satisfactory for evaluation. Endocervical component may not be distinguished in cases of atrophy. Performed by: 02 Rama Baker, Human Resources Benefits Manager (ASCP) . 02 Note: Note 02 The Pap smear is a screening test designed to aid in the detection of premalignant and malignant conditions of the uterine cervix. It is not a diagnostic procedure and should not be used as the sole means of detecting cervical cancer. Both false-positive and false-negative reports do occur. Test Methodology: Note 02 This liquid based ThinPrep(R) pap test was screened with the use of an image guided system. FLAG LEGEND: L-Low Normal,H-High Normal,LL-Alert Low,HH-Alert High <-Panic Low,>-Panic High,A-Abnormal,AA-Critical Abnormal Performed at: [address] [facility] [id number] Christina Burden MD, CBC AUTO DIFFon 08-27-2022 BASO # 0.0 103/ul Normal 0.0-0.1 [facility] Comment on above: Performed By: #### C BC #### [facility] [address] [address] [address] Sarah Church Basophils/100 WBC (Bld) 0.5 % Normal 0.2-2.0 [facility] Comment on above: Performed By: #### C BC #### [facility] [address] [place] [address] Dr. Sarah Church EO # 0.2 103/ul Normal 0.0-0.7 [facility] Comment on above: Performed By: #### C BC #### [facility] [address] [place] [address] Dr. Sarah Church Eosinophils/100 WBC (Bld) 2.2 % Normal 0.9-7.0 [facility] Comment on above: Performed By: #### C BC #### [facility] [address] [place] [address] Dr. Sarah Church Erythrocyte distribution width (RBC) [Ratio] 12.5 % Normal 11.0-15.0 [facility] Comment on above: Performed By: #### C BC #### [facility] [address] [place] [address] Dr. Sarah Church Hematocrit (Bld) [Volume fraction] 44.1 % Normal 36.0-48.0 [facility] Comment on above: Performed By: #### C BC #### [facility] [address] [place], [place] [id number] Dr. Sarah Church Hemoglobin (Bld) [Mass/Vol] 15.1 g/dL Normal 12.0-16.0 [facility] Comment on above: Performed By: #### C BC #### [facility] [address] [place] [address] Dr. Sarah Church IG # 0.02 10e3/ul Normal 0.00-0.03 [facility] Comment on above: Performed By: #### C BC #### [facility] [address] [place] [address] Dr. Sarah Church IG % 0.2 % Normal 0.0-0.5 [facility] Comment on above: Performed By: #### C BC #### [facility] [address] [place] [address] Dr. Sarah Chucrh LYMPH # 2.9 103/ul Normal 1.2-3.8 [facility] Comment on above: Performed By: #### C BC #### [facility] [address] [place] [address] Dr. Sarah Church Lymphocytes/100 WBC (Bld) 33.4 % Normal 20.5-60.0 [facility] Comment on above: Performed By: #### C BC #### [facility] [address] [place] [address] Dr. Sarah Church MANUAL DIFF REQ NO Normal [facility] Comment on above: Performed By: #### C BC #### [facility] [address] [place] [address] Dr. Sarah Church MCH (RBC) [Entitic mass] 29.1 pg Normal 26.7-34.0 [facility] Comment on above: Performed By: #### C BC #### [facility] [address] [place] [address] Dr. Sarah Church MCHC (RBC) [Mass/Vol] 34.2 g/dL Normal 29.9-35.2 [facility] Comment on above: Performed By: #### C BC #### [facility] [address] [place] [address] Dr. Sarah Church MCV (RBC) [Entitic vol] 85.0 fL Normal 81.0-99.0 [facility] Comment on above: Performed By: #### C BC #### [facility] [address] [place] [address] Dr. Sarah Church MONO # 0.6 103/ul Normal 0.3-0.8 [facility] Comment on above: Performed By: #### C BC #### [facility] [address] [address] [address] Sarah Church Monocytes/100 WBC (Bld) 6.8 % Normal 1.7-12.0 [facility] Comment on above: Performed By: #### C BC #### [facility] [address] [place] [address] Dr. Sarah Church NEUT # 4.9 103/ul Normal 1.4-6.5 [facility] Comment on above: Performed By: #### C BC #### [facility] [address] [place] [address] Dr. Sarah Church Neutrophils/100 WBC (Bld) 56.9 % Normal 43.0-75.0 [facility] Comment on above: Performed By: #### C BC #### [facility] [address] [place] [address] Dr. Sarah Church Platelet mean volume (Bld) [Entitic vol] 10.8 fL Normal 9.5-13.5 [facility] Comment on above: Performed By: #### C BC #### [facility] [address] [place] [address] Dr. Sarah Church PLT 276 103/ul Normal 150-450 [facility] Comment on above: Performed By: #### C BC #### [facility] [address] [place] [address] Dr. Sarah Church RBC 5.19 106/ul Normal 4.20-5.40 [facility] Comment on above: Performed By: #### C BC #### [facility] [address] [place] [address] Dr. Sarah Church WBC 8.6 103/ul Normal 4.0-11.0 [facility] Comment on above: Performed By: #### C BC #### [facility] [address] [place] [address] Dr. Sarah Church LIPID PROFILEon 08-27-2022 CHOL-HDL RATIO NORM SEE BELOW Normal [facility] Comment on above: Result Comment: 3.3 - 4.4 LOW RISK 4.4 - 7.1 AVERAGE RISK 7.1 - 11.0 MODERATE RISK >11.0 HIGH RISK Performed By: #### L IPID, CMP #### [facility] [address] [address] [address] Sarah Church Cholesterol [Mass/Vol] 110 mg/dL Normal <=200 [facility] Comment on above: Performed By: #### L IPID, CMP #### [facility] [address] [address] [address] Sarah Church Cholesterol in HDL [Mass/Vol] 33 mg/dL Critically low 40-60 [facility] Comment on above: Performed By: #### L IPID, CMP #### [facility] [address] [address] [address] Sarah Church Cholesterol in LDL [Mass/Vol] 58.0 mg/dL Normal [facility] Comment on above: Performed By: #### L IPID, CMP #### [facility] [address] [address] [address] Sarah Church Cholesterol.total/C holesterol in HDL [Mass ratio] 3.3 {ratio} Normal [facility] Comment on above: Performed By: #### L IPID, CMP #### [facility] [address] [address] [address] Sarah Church HDL NORMAL > or = 60 mg/dl - LO W CARDIOVASCULAR RISK <40 mg/dl - HIGH CARDIOVASCULAR RISK Normal [facility] Comment on above: Performed By: #### L IPID, CMP #### [facility] [address] [address] [address] Sarah Church LDL CALC NORMAL SEE BELOW Normal [facility] Comment on above: Result Comment: <100 mg/dl OPTIMAL 100 - 129 mg/dl NEAR OR ABOVE OPTIMAL 130 - 159 mg/dl BORDERLINE HIGH 160 - 189 mg/dl HIGH >190 mg/dl VERY HIGH Performed By: #### L IPID, CMP #### [facility] [address] [address] [address] Sarah Church Triglyceride [Mass/Vol] 95 mg/dL Normal <=150 [facility] Comment on above: Performed By: #### L IPID, CMP #### [facility] [address] [place] [address] Dr. Sarah Church VLDL CALC 19.0 mg/dL Normal [facility] Comment on above: Performed By: #### L IPID, CMP #### [facility] [address] [place] [address] Dr. Sarah Church PROF 14(COMP METB)on 023 Albumin [Mass/Vol] 3.3 g/dL Critically low 3.4-5.0 [facility] Comment on above: Performed By: #### L IPID, CMP #### [facility] [address] [place] [address] Dr. Sarah Church Albumin/Globulin [Mass ratio] 0.8 {ratio} Normal [facility] Comment on above: Performed By: #### L IPID, CMP #### [facility] [address] [place] [address] Dr. Sarah Church ALP [Catalytic activity/Vol] 100 U/L Normal 46-116 [facility] Comment on above: Performed By: #### L IPID, CMP #### [facility] [address] [place] [address] Dr. Sarah Church ALT [Catalytic activity/Vol] 74 U/L Critically high 14-59 [facility] Comment on above: Performed By: #### L IPID, CMP #### [facility] [address] [place] [address] Dr. Sarah Church Anion gap [Moles/Vol] 13.2 mmol/L Normal [facility] Comment on above: Performed By: #### L IPID, CMP #### [facility] [address] [place] [address] Dr. Sarah Church AST [Catalytic activity/Vol] 42 U/L Critically high 15-37 [facility] Comment on above: Performed By: #### L IPID, CMP #### [facility] [address] [place] [address] Dr. Sarah Church Bilirubin [Mass/Vol] 0.4 mg/dL Normal 0.2-1.0 [facility] Comment on above: Performed By: #### L IPID, CMP #### [facility] [address] [place] [address] Dr. Sarah Church Calcium [Mass/Vol] 9.2 mg/dL Normal 8.5-10.1 [facility] Comment on above: Performed By: #### L IPID, CMP #### [facility] [address] [place] [address] Dr. Sarah Church Chloride [Moles/Vol] 99 mmol/L Normal 98-107 [facility] Comment on above: Performed By: #### L IPID, CMP #### [facility] [address] [place] [address] Dr. Sarah Church CO2 [Moles/Vol] 30.4 mmol/L Normal 21.0-32.0 [facility] Comment on above: Performed By: #### L IPID, CMP #### [facility] Laboratory [address] [place] [address] Dr. Sarah Church Creatinine [Mass/Vol] 0.78 mg/dL Normal 0.55-1.02 [facility] Comment on above: Performed By: #### L IPID, CMP #### [facility] [address] [place] [address] Dr. Sarah Church EGFR-AF MALAYSIAN >60 Normal >=60 [facility] [place] [facility] Comment on above: Performed By: #### L IPID, CMP #### [facility] [address] [place] [address] Dr. Sarah Church EGFR-NON AF MALAYSIAN >60 Normal >=60 [facility] Comment on above: Performed By: #### L IPID, CMP #### [facility] [address] [place] [address] Dr. Sarah Church Globulin (S) [Mass/Vol] 4.0 g/dL Normal [facility] Comment on above: Performed By: #### L IPID, CMP #### [facility] [address] [place] [address] Dr. Sarah Church Glucose [Mass/Vol] 255 mg/dL Critically high 74-106 [facility] Comment on above: Performed By: #### L IPID, CMP #### [facility] [address] [address] [address] Sarah Church Potassium [Moles/Vol] 3.6 mmol/L Normal 3.5-5.1 [facility] Comment on above: Performed By: #### L IPID, CMP #### [facility] [address] [place] [address] Dr. Sarah Church Protein [Mass/Vol] 7.3 g/dL Normal 6.4-8.2 [facility] Comment on above: Performed By: #### L IPID, CMP #### [facility] [address] [place] [address] Dr. Sarah Church Sodium [Moles/Vol] 139 mmol/L Normal 136-145 [facility] Comment on above: Performed By: #### L IPID, CMP #### [facility] [address] [place] [address] Dr. Sarah Church Urea nitrogen [Mass/Vol] 8.0 mg/dL Normal 7.0-18.0 [facility] Comment on above: Performed By: #### L IPID, CMP #### [facility] [address] [place] [address] Dr. Sarah Church Urea nitrogen/Creatinine [Mass ratio] 10.3 mg/mg Normal [facility] Comment on above: Performed By: #### L IPID, CMP #### [facility] [address] [place] [address] Dr. Sarah Church 37on 08-10-2022 37 -Start hydrochlorothiazide 12.5 mg in the morning -Check labs 1 week after starting new medication -Take blood pressure to appointment with Dr. Dela Cruz for correlation Normal [facility] Office Visiton 08-10-2022 Follow-up visit [id number] Arlette Ramos 1970 F Date Provider Department Center 08/10/2022 [id number]-[facility]RHAPREDCHRISTEN [facility] No family history on file Level of Service:73839 HI OFFICE/OUTPATIENT ESTABLISHED MOD MDM 30-39 MIN Reason for Visit and Comments: Coronary Artery Disease [187] Hypertension [748614] Normal [facility] MG MAMM SCREEN 3D ROB CADon 07-20-2022 MG MAMM SCREEN 3D ROB CAD Patient: ZOILA RAMOS Exam Date: 07/20/2022 : 1970 Gender:F Ordering : DR SHAYY DELA CRUZ M.D. Admission #: [id number] Family : Order #: [id number] CLICK HERE TO VIEW EXAM RADIOLOGY REPORT PROCEDURE: MAMMOGRAM SCREENING 3D BILATERAL CAD COMPARISON: MAMMO ROB SCREEN W CAD DIG, 05/16/2012. INDICATIONS: Screening mammography Calculator Name NCI Breast Cancer Risk Assessment Tool 5 Year Breast Cancer Risk 1.20% Lifetime Breast Cancer Risk 10.80% Personal Breast Cancer No Personal Ovarian Cancer No Treatments None Family Cancers None LOCATION: [facility] BREAST COMPOSITION: Almost entirely fatty. FINDINGS: DIAGNOSTIC CATEGORY 1--NEGATIVE. RIGHT BREAST: No significant suspicious finding. No significant change has occurred. LEFT BREAST: No significant suspicious finding. No significant change has occurred. RECOMMENDATIONS: ROUTINE MAMMOGRAM AND CLINICAL EVALUATION IN 12 MONTHS. PLEASE NOTE: A NORMAL MAMMOGRAM DOES NOT EXCLUDE THE POSSIBILITY OF BREAST CANCER. A CLINICALLY SUSPICIOUS PALPABLE LUMP SHOULD BE BIOPSIED. Dictated by: Narinder Lan M.D. on 07/21/2022 at 08:22 Approved by: Narinder Lan M.D. on 07/21/2022 at 08:24 Normal [facility] PROF CHEM 8 (BAS METB)on Anion gap [Moles/Vol] 14.5 mmol/L Normal [facility] Comment on above: Performed By: #### B MP #### [facility] [address] [place], [place] [address] Dr. Sarah Church Calcium [Mass/Vol] 9.8 mg/dL Normal 8.5-10.1 [facility] Comment on above: Performed By: #### B MP #### [facility] [address] [place], [place] [address] Dr. Sarah Church Chloride [Moles/Vol] 99 mmol/L Normal 98-107 [facility] Comment on above: Performed By: #### B MP #### [facility] [address] [address] [address] Sarah Church CO2 [Moles/Vol] 27.2 mmol/L Normal 21.0-32.0 [facility] Comment on above: Performed By: #### B MP #### [facility] [address] [address] [address] Sarah Church Creatinine [Mass/Vol] 0.80 mg/dL Normal 0.55-1.02 [facility] Comment on above: Performed By: #### B MP #### [facility] [address] [address] [address] Sarah Church EGFR-AF MALAYSIAN >60 Normal >=60 [facility] Comment on above: Performed By: #### B MP #### [facility] [address] [address] [address] Sarah Church EGFR-NON AF MALAYSIAN >60 Normal >=60 [facility] Comment on above: Performed By: #### B MP #### [facility] [address] [address] [address] Sarah Church Glucose [Mass/Vol] 458 mg/dL Critically high 74-106 [facility] Comment on above: Performed By: #### B MP #### [facility] [address] [address] [address] Sarah Church Potassium [Moles/Vol] 4.7 mmol/L Normal 3.5-5.1 [facility] Comment on above: Performed By: #### B MP #### [facility] [address] [address] [address] Saarh Church Sodium [Moles/Vol] 136 mmol/L Normal 136-145 [facility] Comment on above: Performed By: #### B MP #### [facility] [address] [address] [address] Sarah Church Urea nitrogen [Mass/Vol] 15.0 mg/dL Normal 7.0-18.0 [facility] Comment on above: Performed By: #### B MP #### [facility] [address] [address] [address] Sarah Church Urea nitrogen/Creatinine [Mass ratio] 18.8 mg/mg Normal [facility] Comment on above: Performed By: #### B MP #### [facility] [address] [address] [address] Sarah Church Orders Onlyon 06-04-2022 Orders Only [id number] Richard,Arlette Sidhu 1970 F Date Provider Department Center 06/04/2022 Shila-JESSICA STONE [facility] No family history on file [facility] 36on 06-01-2022 36 Patient called and i s very confused. You recently switched her from lisinopril to losartan (due to cough). She called today to tell me the pharmacy did not have her script for Lipitor. I told her you did not prescribe that and made no mention of it in your note. She swears you told her you were switching her to Lipitor for her high cholesterol . HELP!! lol Normal [facility] Orders Onlyon 06-01-2022 Orders Only [id number] RichardArlette Sidhu 1970 F Date Provider Department Center 06/01/2022 aCrlos-MALCOLM EVANS [facility]. No family history on file [facility] 36on 05-28-2022 36 Spoke with flaca she states to call in script of losartan 25 mg QD Normal [facility] GLYCOHEMOGLOBIN A1Con 2022 ADA RECOMMENDATION SEE BELOW Normal [facility] Comment on above: Result Comment: ADA RECOMMENDED LIMIT 4.0 - 6.0 ADA THERAPEUTIC TARGET < 7.0 ACTION SUGGESTED > 7.0 Performed By: #### A 1C ####[facility] [address] [id number]. Sarah Church Glucose [Mass/Vol] 266 mg/dL Normal [facility] Comment on above: Performed By: #### A 1C ####[facility] [address] [id number]. Sarah Church HbA1c (Bld) [Mass fraction] 10.9 % Critically high 4.5-6.2 [facility] Comment on above: Performed By: #### A 1C ####[facility] [address] [place], [place] [address]VaDr. Sarah Church Office Visiton 05-19-2022 Follow-up visit [id number] Arlette Ramos 1970 F Date Provider Department Center 05/19/2022 MALCOLM SCHAFER [facility] C[facility] No family history on file Level of Service:08649 HI OFFICE/OUTPATIENT ESTABLISHED MOD MDM 30-39 MIN Reason for Visit and Comments: Coronary Artery Disease [187] Hyperlipidemia [182] Normal [facility] XR HIP RT 2 3V W PELVISon XR HIP RT 2 3V W PELVIS EXAM: XR HIP RT 2 3V W PELVIS HISTORY: Pain in right hip joint COMPARISON: None. TECHNIQUE: 2 views of the right hip FINDINGS: No acute fracture seen. Joint alignment is normal. Joint spaces are preserved. Soft tissues appear unremarkable. IMPRESSION: No acute fracture or malalignment. Electronically authenticated by: JAVAD ROB Date: 2022-04-06 21:15 Normal [facility] CBC AUTO DIFFon 11-05-2021 BASO # 0.1 103/ul Normal 0.0-0.1 [facility] Comment on above: Performed By: #### C BC #### [facility] [address] [address] [address] Sarah Church Basophils/100 WBC (Bld) 0.4 % Normal 0.2-2.0 [facility] Comment on above: Performed By: #### C BC #### [facility] [address] [address] [address] Sarah Church EO # 0.2 103/ul Normal 0.0-0.7 [facility] Comment on above: Performed By: #### C BC #### [facility] [address] [address] [address] Sarah Church Eosinophils/100 WBC (Bld) 1.3 % Normal 0.9-7.0 [facility] Comment on above: Performed By: #### C BC #### [facility] [address] [place] [address] Dr. Sarah Church Erythrocyte distribution width (RBC) [Ratio] 12.3 % Normal 11.0-15.0 [facility] Comment on above: Performed By: #### C BC #### [facility] [address] [place] [address] Dr. Sarah Church Hematocrit (Bld) [Volume fraction] 43.1 % Normal 36.0-48.0 [facility] Comment on above: Performed By: #### C BC #### [facility] [address] [place] [address] Dr. Sarah Church Hemoglobin (Bld) [Mass/Vol] 14.6 g/dL Normal 12.0-16.0 [facility] Comment on above: Performed By: #### C BC #### [facility] [address] [place] [address] Dr. Sarah Church IG # 0.04 10e3/ul Critically high 0.00-0.03 [facility] Comment on above: Performed By: #### C BC #### [facility] [address] [place] [address] Dr. Sarah Church IG % 0.3 % Normal 0.0-0.5 [facility] Comment on above: Performed By: #### C BC #### [facility] [address] [place] [address] Dr. Sarah Church LYMPH # 1.6 103/ul Normal 1.2-3.8 [facility] Comment on above: Performed By: #### C BC #### [facility] [address] [place] [address] Dr. Sarah Church Lymphocytes/100 WBC (Bld) 12.5 % Critically low 20.5-60.0 [facility] Comment on above: Performed By: #### C BC #### [facility] [address] [place] [address] Dr. Sarah Church MANUAL DIFF REQ NO Normal [facility] Comment on above: Performed By: #### C BC #### [facility] [address] [place] [address] Dr. Sarah Church MCH (RBC) [Entitic mass] 29.4 pg Normal 26.7-34.0 [facility] Comment on above: Performed By: #### C BC #### [facility] [address] [place] [address] Dr. Sarah Church MCHC (RBC) [Mass/Vol] 33.9 g/dL Normal 29.9-35.2 [facility] Comment on above: Performed By: #### C BC #### [facility] [address] [address] [address] Sarah Church MCV (RBC) [Entitic vol] 86.7 fL Normal 81.0-99.0 [facility] Comment on above: Performed By: #### C BC #### [facility] [address] [place] [address] Dr. Sarah Church MONO # 1.0 103/ul Critically high 0.3-0.8 [facility] Comment on above: Performed By: #### C BC #### [facility] [address] [place] [address] Dr. Sarah Church Monocytes/100 WBC (Bld) 7.7 % Normal 1.7-12.0 [facility] Comment on above: Performed By: #### C BC #### [facility] [address] [place] [address] Dr. Sarah Church NEUT # 9.6 103/ul Critically high 1.4-6.5 [facility] Comment on above: Performed By: #### C BC #### [facility] [address] [place] [address] Dr. Sarah Church Neutrophils/100 WBC (Bld) 77.8 % Critically high 43.0-75.0 [facility] Comment on above: Performed By: #### C BC #### [facility] [address] [place] [address] Dr. Sarah Church Platelet mean volume (Bld) [Entitic vol] 11.0 fL Normal 9.5-13.5 [facility] Comment on above: Performed By: #### C BC #### [facility] [address] [place] [address] Dr. Sarah Church PLT 220 103/ul Normal 150-450 [facility] Comment on above: Performed By: #### C BC #### [facility] [address] [address] [address] Sarah Church RBC 4.97 106/ul Normal 4.20-5.40 [facility] Comment on above: Performed By: #### C BC #### [facility] [address] [address] [address] Sarah Church WBC 12.4 103/ul Critically high 4.0-11.0 [facility] Comment on above: Performed By: #### C BC #### [facility] [address] [address] [address] Sarah Church GROUP A STREP CULTUREon S. pyogenes Ag Ql (Unsp spec) Culture Observations: NEGATIVE FOR GROUP A STREPTOCOCCUS. Normal [facility] Comment on above: Performed By: #### G RASTCX, SSCRN ####[facility] [address] [address]Dr. Sarah Church POINT OF CARE GLUCOSEon Glucose [Mass/Vol] 214 mg/dL Critically high 74-106 [facility] Comment on above: Performed By: #### P OCGLUC #### [facility] [address] [address] [address] Sarah Church STREPT SCREENon 11-05-2021 STREP SCREEN A Negative Normal NEGATIVE [facility] Comment on above: Performed By: #### G RASTCX, SSCRN ####[facility] [address] [address]Dr. Sarah Church CBC AUTO DIFFon 10-16-2021 BASO # 0.1 103/ul Normal 0.0-0.1 [facility] Comment on above: Performed By: #### C BC #### [facility] [address] [address] [address] Sarah Church Basophils/100 WBC (Bld) 0.8 % Normal 0.2-2.0 [facility] Comment on above: Performed By: #### C BC #### [facility] [address] [place] [address] Dr. Sarah Church EO # 0.3 103/ul Normal 0.0-0.7 [facility] Comment on above: Performed By: #### C BC #### [facility] [address] [place] [address] Dr. Sarah Church Eosinophils/100 WBC (Bld) 3.4 % Normal 0.9-7.0 [facility] Comment on above: Performed By: #### C BC #### [facility] [address] [place] [address] Dr. Sarah Church Erythrocyte distribution width (RBC) [Ratio] 12.6 % Normal 11.0-15.0 [facility] Comment on above: Performed By: #### C BC #### [facility] [address] [place] [address] Dr. Sarah Church Hematocrit (Bld) [Volume fraction] 45.4 % Normal 36.0-48.0 [facility] Comment on above: Performed By: #### C BC #### [facility] [address] [place] [address] Dr. Sarah Church Hemoglobin (Bld) [Mass/Vol] 15.0 g/dL Normal 12.0-16.0 [facility] Comment on above: Performed By: #### C BC #### [facility] [address] [place] [address] Dr. Sarah Church IG # 0.02 10e3/ul Normal 0.00-0.03 [facility] Comment on above: Performed By: #### C BC #### [facility] [address] [place] [address] Dr. Sarah Church IG % 0.2 % Normal 0.0-0.5 [facility] Comment on above: Performed By: #### C BC #### [facility] [address] [place] [address] Dr. Sarah Church LYMPH # 2.7 103/ul Normal 1.2-3.8 [facility] Comment on above: Performed By: #### C BC #### [facility] [address] [place] [address] Dr. Sarah Church Lymphocytes/100 WBC (Bld) 31.0 % Normal 20.5-60.0 [facility] Comment on above: Performed By: #### C BC #### [facility] [address] [place] [address] Dr. Sarah Church MANUAL DIFF REQ NO Normal [facility] Comment on above: Performed By: #### C BC #### [facility] [address] [place] [address] Dr. Sarah Church MCH (RBC) [Entitic mass] 29.3 pg Normal 26.7-34.0 [facility] Comment on above: Performed By: #### C BC #### [facility] [address] [place] [address] Dr. Sarah Church MCHC (RBC) [Mass/Vol] 33.0 g/dL Normal 29.9-35.2 [facility] Comment on above: Performed By: #### C BC #### [facility] [address] [place] [address] Dr. Sarah Church MCV (RBC) [Entitic vol] 88.7 fL Normal 81.0-99.0 [facility] Comment on above: Performed By: #### C BC #### [facility] [address] [place] [address] Dr. Sarah Church MONO # 0.6 103/ul Normal 0.3-0.8 [facility] Comment on above: Performed By: #### C BC #### [facility] [address] [place] [address] Dr. Sarah Church Monocytes/100 WBC (Bld) 6.5 % Normal 1.7-12.0 [facility] Comment on above: Performed By: #### C BC #### [facility] [address] [place] [address] Dr. Sarah Church NEUT # 5.0 103/ul Normal 1.4-6.5 [facility] Comment on above: Performed By: #### C BC #### [facility] [address] [address] [address] Sarah Church Neutrophils/100 WBC (Bld) 58.1 % Normal 43.0-75.0 [facility] Comment on above: Performed By: #### C BC #### [facility] [address] [address] [address] Sarah Church Platelet mean volume (Bld) [Entitic vol] 11.0 fL Normal 9.5-13.5 [facility] Comment on above: Performed By: #### C BC #### [facility] [address] [address] [address] Sarah Church PLT 226 103/ul Normal 150-450 [facility] Comment on above: Performed By: #### C BC #### [facility] [address] [place] [address] [address] Sarah Church RBC 5.12 106/ul Normal 4.20-5.40 [facility] Comment on above: Performed By: #### C BC #### [facility] [address] [address] [address] Sarah Church WBC 8.6 103/ul Normal 4.0-11.0 [facility] Comment on above: Performed By: #### C BC #### [facility] [address] [address] [address] Sarah Church GLYCOHEMOGLOBIN A1Con 2021 ADA RECOMMENDATION SEE BELOW Normal [facility] Comment on above: Result Comment: ADA RECOMMENDED LIMIT 4.0 - 6.0 ADA THERAPEUTIC TARGET < 7.0 ACTION SUGGESTED > 7.0 Performed By: #### A 1C ####[facility] [address] [place] [address]Dr. Sarah Church Glucose [Mass/Vol] 275 mg/dL Normal [facility] Comment on above: Performed By: #### A 1C ####[facility] [address] [place] [id number]. Sarah Church HbA1c (Bld) [Mass fraction] 11.2 % Critically high 4.5-6.2 [facility] Comment on above: Performed By: #### A 1C ####[facility] [address] [place], [place] [address]Np. Sarah Church LIPID PROFILEon 10-16-2021 CHOL-HDL RATIO NORM SEE BELOW Normal [facility] Comment on above: Result Comment: 3.3 - 4.4 LOW RISK 4.4 - 7.1 AVERAGE RISK 7.1 - 11.0 MODERATE RISK >11.0 HIGH RISK Performed By: #### L IPID, CMP ####[facility] [address] [place], [place] [address]Do. Sarah Church Cholesterol [Mass/Vol] 159 mg/dL Normal <=200 [facility] Comment on above: Performed By: #### L IPID, CMP ####[facility] [address] [place] [id number]. Corriebrenden Church Cholesterol in HDL [Mass/Vol] 41 mg/dL Normal 40-60 [facility] Comment on above: Performed By: #### L IPID, CMP ####[facility] [address] [place] [id number]. Corriebrenden Ranjit Cholesterol in LDL [Mass/Vol] 102.6 mg/dL Normal [facility] Comment on above: Performed By: #### L IPID, CMP ####[facility] [address] [place] [id number]. Sarah Ranjit Cholesterol.total/C holesterol in HDL [Mass ratio] 3.9 {ratio} Normal [facility] Comment on above: Performed By: #### L IPID, CMP ####[facility] [address] [place] [id number]. Sarah Church HDL NORMAL > or = 60 mg/dl - LO W CARDIOVASCULAR RISK <40 mg/dl - HIGH CARDIOVASCULAR RISK Normal [facility] Comment on above: Performed By: #### L IPID, CMP ####[facility] [address] [place] [id number]. Sarah Church LDL CALC NORMAL SEE BELOW Normal [facility] Comment on above: Result Comment: <100 mg/dl OPTIMAL 100 - 129 mg/dl NEAR OR ABOVE OPTIMAL 130 - 159 mg/dl BORDERLINE HIGH 160 - 189 mg/dl HIGH >190 mg/dl VERY HIGH Performed By: #### L IPID, CMP ####[facility] [address] [place] [address]Dr. Sarah Church Triglyceride [Mass/Vol] 77 mg/dL Normal <=150 [facility] Comment on above: Performed By: #### L IPID, CMP ####[facility] [address] [place] [address]Dr. Sarah Church VLDL CALC 15.4 mg/dL Normal [facility] Comment on above: Performed By: #### L IPID, CMP ####[facility] [address] [place] [address]Dr. Sarah Church MICROALBUMIN, RAND URon 09-30 mALB 2.0 mg/L Normal <=30.0 [facility] Comment on above: Performed By: #### M ALBR #### [facility] [address] [place] [address] [address] Sarah Church PROF 14(COMP METB)on 022 Albumin [Mass/Vol] 3.5 g/dL Normal 3.4-5.0 [facility] Comment on above: Performed By: #### L IPID, CMP ####[facility] [address] [place] [address]Dr. Sarah Church Albumin/Globulin [Mass ratio] 0.8 {ratio} Normal [facility] Comment on above: Performed By: #### L IPID, CMP ####[facility] [address] [place] [address]Dr. Sarah Church ALP [Catalytic activity/Vol] 85 U/L Normal 46-116 [facility] Comment on above: Performed By: #### L IPID, CMP ####[facility] [address] [place] [address]Dr. Sarah Church ALT [Catalytic activity/Vol] 59 U/L Normal 14-59 [facility] Comment on above: Performed By: #### L IPID, CMP ####[facility] [address] [place] [address]Dr. Sarah Church Anion gap [Moles/Vol] 15.1 mmol/L Normal [facility] Comment on above: Performed By: #### L IPID, CMP ####[facility] [address] [place], [place] [address]Dr. Sarah Church AST [Catalytic activity/Vol] 32 U/L Normal 15-37 [facility] Comment on above: Performed By: #### L IPID, CMP ####[facility] [address] [place], [place] [address]Dr. Sarah Church Bilirubin [Mass/Vol] 0.4 mg/dL Normal 0.2-1.0 [facility] Comment on above: Performed By: #### L IPID, CMP ####[facility] [address] [place], [place] [address]Dr. Sarah Church Calcium [Mass/Vol] 9.0 mg/dL Normal 8.5-10.1 [facility] Comment on above: Performed By: #### L IPID, CMP ####[facility] [address] [place], [place] [address]Dr. Sarah Church Chloride [Moles/Vol] 102 mmol/L Normal 98-107 [facility] Comment on above: Performed By: #### L IPID, CMP ####[facility] [address] [place], [place] [address]Dr. Sarah Church CO2 [Moles/Vol] 30.2 mmol/L Normal 21.0-32.0 [facility] [place] [facility] Comment on above: Performed By: #### L IPID, CMP ####[facility] [address] [place], [place] [address]Dr. Sarah Church Creatinine [Mass/Vol] 0.81 mg/dL Normal 0.55-1.02 [facility] Comment on above: Performed By: #### L IPID, CMP ####[facility] [address] [place], [place] [address]Dr. Sarah Church EGFR-AF MALAYSIAN >60 Normal >=60 [facility] [place] [facility] Comment on above: Performed By: #### L IPID, CMP ####[facility] [address] [place], [place] [address]Dr. Sarah Church EGFR-NON AF MALAYSIAN >60 Normal >=60 [facility] Comment on above: Performed By: #### L IPID, CMP ####[facility] [address] [place] [address]Dr. Sarah Church Globulin (S) [Mass/Vol] 3.9 g/dL Normal [facility] Comment on above: Performed By: #### L IPID, CMP ####[facility] [address] [place] [id number]. Sarah Church Glucose [Mass/Vol] 218 mg/dL Critically high 74-106 T [facility] Comment on above: Performed By: #### L IPID, CMP ####[facility] [id number] [place], [place] [address]Dr. Sarah Church Potassium [Moles/Vol] 4.3 mmol/L Normal 3.5-5.1 [facility] Comment on above: Performed By: #### L IPID, CMP ####[facility] [id number] [place], [place] [address]Dr. Sarah Church Protein [Mass/Vol] 7.4 g/dL Normal 6.4-8.2 [facility] Comment on above: Performed By: #### L IPID, CMP ####[facility] [address] [place], [place] [address]Dr. Sarah Church Sodium [Moles/Vol] 143 mmol/L Normal 136-145 [facility] Comment on above: Performed By: #### L IPID, CMP ####[facility] [id number] [place], [place] [address]Dr. Sarah Church Urea nitrogen [Mass/Vol] 14.0 mg/dL Normal 7.0-18.0 [facility] Comment on above: Performed By: #### L IPID, CMP ####[facility] [id number] [place], [place] [address]Dr. Sarah Church Urea nitrogen/Creatinine [Mass ratio] 17.2 mg/mg Normal [facility] Comment on above: Performed By: #### L IPID, CMP ####[facility] [address] [place], [place] [address]Lp. Sarah Church Vital Signs Date Time Vital Sign Value Performing Clinician Facility 04-15-2023 11:00-0500 Body height 157.48 cm Shayy Dela Cruz Other [facility] Other 04-15-2023 11:00-0500 Body mass index (BMI) [Ratio] 37.49 kg/m2 Shayy Dela Cruz Other [facility] Other 04-15-2023 11:00-0500 Body weight 92.99 kg Shayy Dela Cruz Other [facility] Other 04-15-2023 11:00-0500 Diastolic blood pressure 84 mm[Hg] Shayy Dela Cruz Other [facility] Other 04-15-2023 11:00-0500 Systolic blood pressure 142 mm[Hg] Shayy Dela Cruz Other [facility] Other 06-22-2022 13:30-0500 Body height 157.48 cm Shayy Dela Cruz Other [facility] Other 06-22-2022 13:30-0500 Body mass index (BMI) [Ratio] 36.94 kg/m2 Shayy Dela Cruz Other [facility] Other 06-22-2022 13:30-0500 Body weight 91.63 kg Shayy Dela Cruz Other [facility] Other 06-22-2022 13:30-0500 Diastolic blood pressure 74 mm[Hg] Shayy Dela Cruz Other [facility] Other 06-22-2022 13:30-0500 SaO2% (BldA) [Mass fraction] 97 % Shayy Dela Cruz Other [facility] Other 06-22-2022 13:30-0500 Systolic blood pressure 112 mm[Hg] Shayy Jose De Jesus Other [facility] Other Encounters Encounter Date Encounter Type Care Provider Facility Start: 04-22-2023 End: 04-22-2023 ambulatory Shayy Jose De Jesus Other [facility] Other Start: 04-22-2023 Telephone encounter Shayy Jose De Jesus [facility] Start: 04-20-2023 End: 04-20-2023 ambulatory Lynne Fitt Other [facility] Other Start: 04-20-2023 Telephone encounter Lynne Fitt [facility] Start: 04-18-2023 End: 04-18-2023 ambulatory Lynne Fitt Other [facility] Other Start: 04-18-2023 Telephone encounter Lynne Austint [facility] Start: 04-15-2023 End: 04-15-2023 ambulatory Shayy Jose De Jesus Other [facility] Other Start: 04-15-2023 Office outpatient visit 15 minutes Shayyjudi Dela Cruz [facility] Start: 04-06-2023 End: 04-06-2023 ambulatory Shayy Dela Cruz Other [facility] Other Start: 04-06-2023 Telephone encounter Shayy Jose De Jesus [facility] Start: 02-25-2023 End: 02-25-2023 ambulatory Shayy Dela Cruz Other [facility] Other Start: 02-25-2023 Telephone encounter Shayy Jose De Jesus [facility] Start: 12-13-2022 End: 12-13-2022 ambulatory [facility] Start: 10-29-2022 End: 10-29-2022 ambulatory Shayy Dela Cruz Other [facility] Other Start: 10-29-2022 Telephone encounter Shayy Dela Cruz [facility] Start: 09-20-2022 End: 09-20-2022 ambulatory Shayy Dela Cruz Facility:[facility] Start: 08-27-2022 End: 08-28-[address] SHAYY DELA CRUZ Facility:[facility] Start: 08-10-2022 End: 08-10-2022 ambulatory [facility] Start: 07-20-2022 End: 07-21-[address] SHAYY DELA CRUZ Facility:[facility] Start: 07-19-2022 End: 07-19-2022 ambulatory Shayy Dela Cruz Other [facility] Other Start: 07-19-2022 Telephone encounter Shayy Dela Cruz [facility] Start: 07-12-2022 End: 07-13-[address] SHAYY DELA CRUZ Facility:[facility] Start: 07-05-2022 End: 07-05-2022 ambulatory Shayy Dela Cruz Other [facility] Other Start: 07-05-2022 Telephone encounter Shayy Dela Cruz [facility] Start: 06-28-2022 End: 06-28-2022 ambulatory Shayy Dela Cruz Other [facility] Other Start: 06-28-2022 Telephone encounter Shayy Dela Cruz [facility] Start: 06-22-2022 End: 06-22-2022 ambulatory Shayy Dela Cruz Other [facility] Other Start: 06-22-2022 Office outpatient visit 15 minutes Shayy Dela Cruz [facility] Start: 05-27-2022 End: 05-27-2022 ambulatory Shayy Dela Cruz Other [facility] Other Start: 05-27-2022 Telephone encounter Shayy Dela Cruz [facility] Start: 05-19-2022 End: 05-20-[address] SHAYY DELA CRUZ Facility:[facility] Start: 04-14-2022 End: 04-15-2022 ambulatory JORDYN HOLLANDCECIL Facility:[facility] Start: 04-06-2022 End: 04-07-[address] SHAYY DELA CRUZ Facility:[facility] Start: 01-11-2022 End: 01-12-[address] SHAYY DELA CRUZ Facility:[facility] Start: 11-05-2021 End: 11-05-[address] SHIRIN Hitchcock Facility:[facility] Start: 10-16-2021 End: 10-17-[address] SHAYY DELA CRUZ Facility:[facility] Start: 05-10-2017 End: 05-11-2017 Ambulatory DEFAULT PHYSICIAN Facility:[facility] Start: 05-05-2017 End: 05-06-2017 Ambulatory DEFAULT PHYSICIAN Facility:[facility] Procedures Date Procedure Procedure Detail Performing Clinician Start: 12-13-2022 Follow-up visit Follow-up MARQUES MOROCHO Immunizations Immunization Date Immunization Notes Care Provider Fa cili 02-01-2022 influenza virus vaccine, split virus (incl. purified surface antigen) Shayy Dela Cruz Other [facility] Other Payers Date Payer Category Payer Self-pay 2021 Medicaid [id number] 2017 Unknown [id number] 1972 Unknown [id number] 2..84 [id number] 1972 Unknown [id number] 2.16.84 [id number] 1972 Unknown [id number] .16.84 [id number] 1972 Unknown [id number] 2.16.84 [id number] 1972 Unknown [id number] 2.16.84 [id number] 1972 Unknown [id number] 2.16.84 [id number] 1972 Unknown [id number] 2.16.84 [id number] 1972 Unknown [id number] 2.16.84 [id number] 1972 Unknown [id number] 2.16.84 [id number] 1957 Medicaid [id number] 2. [id number] 1957 Medicare [id number] 2. [id number] Unknown Unknown [id number] 2.16.8 [id number] Social History Date Type Detail Facility Unknown if ever smoked [facility] Other Sex Assigned At Sex Assigned At Bir th [facility] Other Medical Equipment Procedure Code Equipment Code Equipment Original Text Equi pment Identifier Dates Clinical Notes 01-11-2022 to 04-15-2023 Note Date & Type Note Facility 04-15-2023 Evaluation note Encounter Date Diagnosis Assessment Notes Apr, Type 2 diabetes mellitus with hyperglycemia (ICD-10 - E11.65) Rx handwritten for diabetic shoes. Pt agrees to referral to specialty clinic. Continue present meds and discussed healthy diet in meantime. 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 year old female patient with coronary artery disease status post PCI to proximal RCA and mid circumflex in 2004, hyperlipidemia, hypertension, type 2 diabetes, and obesity seen in follow-up. Patient adamantly denies any cardiac complaints or concerns. Patient denies any chest pain or shortness of breath. Patient denies any lower extremity edema, orthopnea, or proximal nocturnal dyspnea. No near-syncope or syncope. No dizziness or lightheadedness. She states that her blood pressure has been well controlled at home. She is unsure as to why it is elevated when she comes into clinic, but she states that it is well controlled when checked at home. She checks Bp at home at least twice daily. 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 Social History Tobacco Use Smoking status: Never Smokeless tobacco: Never Substance Use Topics Alcohol use: Not Currently Review of Systems Cardiovascular: Positive for leg swelling. Negative for chest pain, claudication, dyspnea on exertion, irregular heartbeat, near-syncope, orthopnea, palpitations, paroxysmal nocturnal dyspnea and syncope. Objective Visit Vitals BP 143/80 (BP Location: Left arm, Patient Position: Sitting, BP Cuff Size: Large adult) Pulse 87 Ht 1.575 m (5' 2 ) Wt 92.7 kg (204 lb 6.4 oz) SpO2 97% BMI 37.39 kg/m??? Smoking Status Never BSA 2.01 m??? Physical Exam General: Awake, alert, in no acute distress Pulm: Breath sounds clear to ascultation bilaterally with no wheeze, crackles or rhonchi Cards: Regular rate and rhythm, S1, S2. No S3 or S4 gallop. Murmur: none Abd: Soft, Nontender, physiologic bowel sounds are present Extr: Lower extremity edema: 1+. Skin: warm, dry, well perfused Neuro: A&Ox3, No gross deficits Allergies Allergies Allergen Reactions Codeine Latex Other Lipitor [Atorvastatin] Cough Medications Current Outpatient Medications: albuterol 90 mcg/actuation inhaler, INHALE TWO PUFFS EVERY FOUR HOURS, NEEDED, Disp: , Rfl: aspirin 81 mg EC tablet, Take 1 tablet every day by oral route as directed for 90 days., Disp: , Rfl: atorvastatin (Lipitor) 40 mg tablet, Take 1 tablet (40 mg) by mouth in the morning., Disp: 90 tablet, Rfl: 3 budesonide-formoteroL (Symbicort) 160-4.5 mcg/actuation inhaler, , Disp: , Rfl: esomeprazole (NexIUM) [address] capsule, Take 1 capsule by mouth in the morning., Disp: , Rfl: glipiZIDE (Glucotrol) 10 mg tablet, TAKE 2 (TWO) TABLET BY MOUTH TWO TIMES DAILY, Disp: , Rfl: hydroCHLOROthiazide (Microzide) 12.5 mg capsule, Take 1 capsule (12.5 mg) by mouth in the morning., Disp: 30 capsule, Rfl: 2 insulin glargine (Toujeo SoloStar U-300 Insulin) 300 unit/mL (1.5 mL) injection, INJECT 75 UNITS UNDER SKIN TWICE A DAY, Disp: , Rfl: losartan (Cozaar) 25 mg tablet, Take 1 tablet (25 mg) by mouth in the morning., Disp: 90 tablet, Rfl: 3 magnesium oxide (Mag-Ox) 400 mg tablet, 400 mg in the morning., Disp: , Rfl: metFORMIN (Glucophage) 1,000 mg tablet, TAKE 1 (ONE) TABLET BY MOUTH TWO TIMES DAILY, Disp: , Rfl: metoprolol tartrate (Lopressor) 25 mg tablet, Take 1 tablet (25 mg) by mouth in the morning and at bedtime., Disp: 180 tablet, Rfl: 3 montelukast (Singulair) 10 mg tablet, Take 1 tablet every day by oral route for 30 days., Disp: , Rfl: nitroglycerin (Nitrostat) 0.4 mg SL tablet, PLACE 1 TABLET UNDER YOUR TONGUE EVERY 5 MINUTES NEEDED FOR CHEST PAIN FOR 3 DOSES ONLY. IF NO RELIEF, CALL 911, Disp: , Rfl: carvedilol (Coreg) 6.25 mg tablet, Take 1 tablet (6.25 mg) by mouth with breakfast and with evening meal., Disp: 180 tablet, Rfl: 3 Recent Labs 07/12/2022 Sodium 136, potassium 4.7, chloride 99, CO2 27.2, BUN 15, creatinine 0.8, GFR greater than 60% 10/17/2021 WBC 8.6, hemoglobin 15, hematocrit 45.4, platelets 226 Sodium 143, potassium 4.3, chloride 102, CO2 30.2, glucose 218, BUN 14, creatinine 0.81, ALT 59, AST 32 Cholesterol 159, HDL 41, triglycerides 77, LDL 102.6 Imaging and other tests Echocardiogram: 05/05/2017 Left Ventricle: Global left ventricular systolic function is normal (Visually estimated EF 65-70%). The left ventricle is normal size. No regional wall motion abnormality. Interventricular septal thickness is increased in the proximal portion. Right Ventricle: The right ventricle is normal in size. Normal right ventricular systolic function. Doppler studies suggest normal right sided pressures. Left Atrium: The left atrium is normal in size. Right Atrium: The right atrium is normal in size. The IVC is normal sized. There is inspiratory collapse of the IVC. Mitral V (more content not included)...[facility] 08-10-2022 NoteCardiology Clinic Note Subjective Zoila Ramos is a 52 y.o. year old female patient with coronary artery disease status post PCI to proximal RCA and mid circumflex in 2004, hyperlipidemia, hypertension, type 2 diabetes, and obesity seen in follow-up. She was last seen by Manny Evans CNP on 05/19/2022. She was hypertensive at the time, lisinopril 5 mg was added and she was asked to continue her metoprolol. She did not tolerate lisinopril due to a cough, was subsequently switched to losartan. She is doing better now with resolution of the cough. She is has been maintaining a log at home with BP predominantly in the 130s/70s. 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 Social History Tobacco Use Smoking status: Never Smokeless tobacco: Never Substance Use Topics Alcohol use: Not Currently Review of Systems Cardiovascular: Positive for leg swelling. Negative for chest pain, claudication, dyspnea on exertion, irregular heartbeat, near-syncope, orthopnea, palpitations, paroxysmal nocturnal dyspnea and syncope. Objective Visit Vitals BP 169/86 (BP Location: Right arm, Patient Position: Sitting) Pulse 84 Ht 1.575 m (5' 2 ) Wt 95.3 kg (210 lb) SpO2 96% BMI 38.41 kg/m??? Smoking Status Never BSA 2.04 m??? Physical Exam General: Awake, alert, in no acute distress Pulm: Breath sounds clear to ascultation bilaterally with no wheeze, crackles or rhonchi Cards: Regular rate and rhythm, S1, S2. No S3 or S4 gallop. Murmur: none Abd: Soft, Nontender, physiologic bowel sounds are present Extr: Lower extremity edema: 1+. Skin: warm, dry, well perfused Neuro: A&Ox3, No gross deficits Allergies Allergies Allergen Reactions Codeine Latex Other Lipitor [Atorvastatin] Cough Medications Current Outpatient Medications: albuterol 90 mcg/actuation inhaler, INHALE TWO PUFFS EVERY FOUR HOURS, NEEDED, Disp: , Rfl: aspirin 81 mg EC tablet, Take 1 tablet every day by oral route as directed for 90 days., Disp: , Rfl: atorvastatin (Lipitor) 40 mg tablet, Take 1 tablet (40 mg) by mouth in the morning., Disp: 90 tablet, Rfl: 3 budesonide-formoteroL (Symbicort) 160-4.5 mcg/actuation inhaler, , Disp: , Rfl: esomeprazole (NexIUM) [address] capsule, Take 1 capsule by mouth in the morning., Disp: , Rfl: glipiZIDE (Glucotrol) 10 mg tablet, TAKE 2 (TWO) TABLET BY MOUTH TWO TIMES DAILY, Disp: , Rfl: insulin glargine (Toujeo SoloStar U-300 Insulin) 300 unit/mL (1.5 mL) injection, INJECT 75 UNITS UNDER SKIN TWICE A DAY, Disp: , Rfl: losartan (Cozaar) 25 mg tablet, Take 1 tablet (25 mg) by mouth in the morning., Disp: 90 tablet, Rfl: 3 metFORMIN (Glucophage) 1,000 mg tablet, TAKE 1 (ONE) TABLET BY MOUTH TWO TIMES DAILY, Disp: , Rfl: metoprolol tartrate (Lopressor) 25 mg tablet, Take 1 tablet (25 mg) by mouth in the morning and at bedtime., Disp: 180 tablet, Rfl: 3 montelukast (Singulair) 10 mg tablet, Take 1 tablet every day by oral route for 30 days., Disp: , Rfl: nitroglycerin (Nitrostat) 0.4 mg SL tablet, PLACE 1 TABLET UNDER YOUR TONGUE EVERY 5 MINUTES NEEDED FOR CHEST PAIN FOR 3 DOSES ONLY. IF NO RELIEF, CALL 911, Disp: , Rfl: hydroCHLOROthiazide (Microzide) 12.5 mg capsule, Take 1 capsule (12.5 mg) by mouth in the morning., Disp: 30 capsule, Rfl: 2 Recent Labs 07/12/2022 Sodium 136, potassium 4.7, chloride 99, CO2 27.2, BUN 15, creatinine 0.8, GFR greater than 60% 10/17/2021 WBC 8.6, hemoglobin 15, hematocrit 45.4, platelets 226 Sodium 143, potassium 4.3, chloride 102, CO2 30.2, glucose 218, BUN 14, creatinine 0.81, ALT 59, AST 32 Cholesterol 159, HDL 41, triglycerides 77, LDL 102.6 Imaging and other tests Echocardiogram: 05/05/2017 Left Ventricle: Global left ventricular systolic function is normal (Visually estimated EF 65-70%). The left ventricle is normal size. No regional wall motion abnormality. Interventricular septal thickness is increased in the proximal portion. Right Ventricle: The right ventricle is normal in size. Normal right ventricular systolic function. Doppler studies suggest normal right sided pressures. Left Atrium: The left atrium is normal in size. Right Atrium: The right atrium is normal in size. The IVC is normal sized. There is inspiratory collapse of the IVC. Mitral Valve: The mitral valve is normal in mobility and thickness. Mild mitral regurgitation. Aortic Valve: Trileaflet aortic valve with normal mobility. No aortic valve regurgitation. Tricuspid Valve: Normal tricuspid valve. Trivial tricuspid regurgitation. Pulmonic Valve: Normal pulmonary valve. Trivial pulmonary regurgitation. Great Vessels: The root is normal in size. The (more content not included)... [facility]02-21-2023 Evaluation note* Encounter Date Diagnosis Assessment Notes Treatment Notes Treatment Clinical Notes Jun, Acute non-recurrent maxillary sinusitis (ICD-10 - J01.00) Jun, Controlled type 2 diabetes mellitus with hyperglycemia, unspecified whether fpc insulin use (ICD-10 - E11.65) Once again advised management at diabetes clinic. She declines and will continue meds, followup in 3 months, and recheck labs at that time. She is eating more of a keto diet and is certain that is helping her A1C improve. Jun, Screening mammogram for breast cancer (ICD-10 - Z12.31) Zoila will call for an appt [facility] Other 01-31-2023 NoteIn light of elevated LDL will change simvastatin to lipitor 40 mg daily. Will repeat liver function and lipid level in 2 months. Staff to notify pt. Malcolm Eavns NP Division of Cardiology, [facility]- [phone] Pager- [phone] Email- [email or web address] NotePatient here for 1 year follow up CAD and dyslipidemia. Had lipid in September 2021. Denies chest pain and SOB. Says her BP has been high lately, but is unable to give me readings, as she does not have a BP monitor at home. Has been wearing compression stockings for LE edema and says they help a lot. Gets lightheaded sometimes and thinks it's related to her blood sugar. PCP switched her from atorvastatin to simvastatin since last visit. Review of Systems Cardiovascular: Positive for leg swelling. Neurological: Positive for headaches and light-headedness. All other systems reviewed and are negative.[facility] 05-19-2022 NoteUTP CARDIOLOGY PROGRESS NOTE HPI: Zoila Ramos is a 52 y.o. female here for Coronary Artery Disease and Hyperlipidemia Patient here for 1 year follow up CAD and dyslipidemia. Had lipid in September 2021. Denies chest pain and SOB. Says her BP has been high lately, but is unable to give me readings, as she does not have a BP monitor at home. Has been wearing compression stockings for LE edema and says they help a lot. Gets lightheaded sometimes and thinks it's related to her blood sugar. Denied chest pain, shortness of breath, orthopnea Reports elevated b/p at times. Denied headache, vision changes, one sided weakness, N/T other than her typical neuropathy of B/L feet. States she has increased levels of stress r/t taking care of her sister and family issues Review of Systems Cardiovascular: Positive for leg swelling. Neurological: Positive for headaches and light-headedness. All other systems reviewed and are negative. Visit Vitals BP 164/83 (BP Location: Right arm, Patient Position: Sitting) Pulse 81 Ht 1.575 m (5' 2 ) Wt 93.9 kg (207 lb) SpO2 97% BMI 37.86 kg/m??? Smoking Status Never BSA 2.03 m??? Allergies Allergen Reactions Codeine Latex Other Medications: Current Outpatient Medications on File Prior to Visit Medication Sig Dispense Refill albuterol 90 mcg/actuation inhaler INHALE TWO PUFFS EVERY FOUR HOURS, NEEDED aspirin 81 mg EC tablet Take 1 tablet every day by oral route as directed for 90 days. budesonide-formoteroL (Symbicort) 160-4.5 mcg/actuation inhaler esomeprazole (NexIUM) [address] capsule Take 1 capsule by mouth in the morning. glipiZIDE (Glucotrol) 10 mg tablet TAKE 2 (TWO) TABLET BY MOUTH TWO TIMES DAILY insulin aspart (NovoLOG) 100 unit/mL (3 mL) pen Inject by sub-q route as directed for 28 days. insulin glargine (Toujeo SoloStar U-300 Insulin) 300 unit/mL (1.5 mL) injection INJECT 75 UNITS UNDER SKIN TWICE A DAY metFORMIN (Glucophage) 1,000 mg tablet TAKE 1 (ONE) TABLET BY MOUTH TWO TIMES DAILY montelukast (Singulair) 10 mg tablet Take 1 tablet every day by oral route for 30 days. nitroglycerin (Nitrostat) 0.[address] 1 TABLET UNDER YOUR TONGUE EVERY 5 MINUTES NEEDED FOR CHEST PAIN FOR 3 DOSES ONLY. IF NO RELIEF, CALL 911 simvastatin (Zocor) 20 mg tablet Take 1 tablet by mouth at bedtime. [DISCONTINUED] atorvastatin (Lipitor) 40 mg tablet Take 1 tablet by mouth at bedtime. [DISCONTINUED] metoprolol tartrate (Lopressor) 25 mg tablet Take 1 tablet by mouth in the morning and at bedtime. [DISCONTINUED] clopidogrel (Plavix) 75 mg tablet Take 1 tablet by mouth in the morning. [DISCONTINUED] fluticasone (Flovent HFA) 110 mcg/actuation inhaler No current facility-administered medications on file prior to visit. Physical Exam: Constitutional: Appearance: Normal appearance. Without apparent distress, obese HENT: Head: Normocephalic and atraumatic. Nose: Nose normal. Mouth/Throat: Mouth: Mucous membranes are moist. Eyes: Extraocular Movements: Extraocular movements intact. Conjunctiva/sclera: Conjunctivae normal. Neck: Vascular: No JVD. Cardiovascular: Rate and Rhythm: Normal rate and regular rhythm. Pulses: Dorsalis pedis pulses are 3 on the right side and 3on the left side. Posterior tibial pulses are 3 on the right side and 3 on the left side. Heart sounds: Normal heart sounds, S1 normal and S2 normal. Pulmonary: Effort: Pulmonary effort is normal. Breath sounds: Normal breath sounds. Abdominal: General: Bowel sounds are normal. Palpations: Abdomen is soft. Musculoskeletal: General: Normal range of motion. Cervical back: Normal range of motion. Right lower leg: No edema. Left lower leg: No edema. Skin: General: Skin is warm and dry. Capillary Refill: Capillary refill takes less than 2 seconds. Neurological: General: No focal deficit present. Mental Status: She is alert and oriented to person, place, and time. Psychiatric: Mood and Affect: Mood normal. Behavior: Behavior normal. Thought Content: Thought content normal. Judgment: Judgment normal. Labs: Reviewed- renal function normal, K+ normal Liver function normal and lipid panel LDL remains > 70- at 102.6 she has continued simvastatin Last lab values have been reviewed CV Testing: No echocardiogram results found for the past 12 months Assessment/Plan: Coronary arteriosclerosis in [place] artery Coronary artery disease is stable, no concerning symptoms continue risk factor modifications- heart healthy diet, regular exercise as tolerated and continue all medications. Essential hypertension Hypertension is uncontrolled, Will add lisinopril 5 mg po daily, and continue metoprolol Goal b/p 130/80 or less, monitor for dry persistent cough- call office for any concerns, repeat BMP in 1 week RTC 1 month to review B/P [facility]Un[facility] Note Hypertension is uncontrolled, Will add lisinopril 5 mg po daily, and continue metoprolol Goal b/p 130/80 or less, monitor for dry persistent cough- call office for any concerns, repeat BMP in 1 week RTC 1 month to review B/P [facility]01-18-2023 Note Coronary artery disease is stable, no concerning symptoms continue risk factor modifications- heart healthy diet, regular exercise as tolerated and continue all medications.[facility] 04-15-2022 NotePROCEDURE: XR FOOT LT MIN 3 VIEWS HISTORY: Pain in left foot ; chronic midfoot plantar pain; no known injury COMPARISON: None. FINDINGS: BONES:Mild degenerative changes of the first toe interphalangeal joints and the second metatarsophalangeal joint. No fracture, dislocation, bone lesion. SOFT TISSUES:No visible soft tissue swelling. EFFUSION:None visible. OTHER: Negative. IMPRESSION: 1. No specific findings to account for patient's symptoms. 2. Mild degenerative joint disease. Electronically authenticated by: NARINDER LAN Date: 2022-04-15 06:08[facility]09-12-2022 NotePROCEDURE: XR TOES RT MIN 2 V HISTORY: Pain of toe of right foot ; first toe pain following injury COMPARISON: None. FINDINGS: BONES:No fracture, acute abnormality, or significant arthropathy. SOFT TISSUES:No visible soft tissue swelling. EFFUSION:None visible. OTHER: Negative. IMPRESSION: 1. No acute bone abnormality. 2. Mild degenerative joint disease. Electronically authenticated by: NARINDER LAN Date: 2022-01-11 18:48[facility] note[facility] InformationNort [employer] Other History general Narrative - Reported* Type Description Date Medical History Herpes labialis Medical History Candidiasis of mouth Medical History Type 2 diabetes holli itus with diabetic polyneuropathy, unspecified whether terminal supervisor insulin use Medical History Controlled type 2 di abetes mellitus with hyperglycemia, unspecified whether fpc insulin use Medical History Obesity Medical History Dyslipidemia Medical History CAD in [place] artery Medical History Asthma, intermittent Medical History Gastroesophageal reflux disease Medical History Acquired deformities of toe(s), unspecified, right foot Medical History Acquired deformity of left toe Medical History Left shoulder pain Medical History Back pain, thoracic Medical History Pain of left foot Medical History Toe pain, right Medical History Hypertension Surgical History right shoulder arthroscopy Surgical History cholecystectomy Surgical History appendectomy Surgical History 7 stents 1999 [employer] Other History general Narrative - Reported* Type Description Date Medical History Herpes labialis Medical History Candidiasis of mouth Medical History Type 2 diabetes holli itus with diabetic polyneuropathy, unspecified whether terminal supervisor insulin use Medical History Controlled type 2 di abetes mellitus with hyperglycemia, unspecified whether fpc insulin use Medical History Obesity Medical History Dyslipidemia Medical History CAD in [place] artery Medical History Asthma, intermittent Medical History Gastroesophageal reflux disease Medical History Acquired deformities of toe(s), unspecified, right foot Medical History Acquired deformity of left toe Medical History Left shoulder pain Medical History Back pain, thoracic Medical History Pain of left foot Medical History Toe pain, right Medical History Hypertension Surgical History right shoulder arthroscopy Surgical History cholecystectomy Surgical History appendectomy Surgical History 7 stents 1999 Hospitalization History see surgical history [employer] Other Summary Purpose Family History No Family History Records FoundNo Family History Records FoundNo Family History Records FoundNo Family History Records Found Advance Directives No Advanced Directives Records FoundNo Advanced Directives Records FoundNo Advanced Directives Records FoundNo Advanced Directives Records Found Reason for Referral Reason *FU 04/22 [facility] - on insulin. high readings. Diagnosis 1 Type 2 diabetes holli itus with hyperglycemia (E11.65) Referral Organization [facility] Referring Provider First Name Shayy Referring Provider Last Name Jose De Jesus Referring Provider Specialty Family [facility] cine Referred Organization [facility] Referred Provider Marcia Mendes Referred Address [address],[place], [place],[address] Referred Provider Specialty Nurse Huey saldaña Referral Priority Routine General Notes Heather Jenkins 01:25:59 PM >received today, notes locked, insurance attached, referral faxed Additional Source Comments INFORMATION SOURCE (unrecogn ized section and content) DATE CREATED AUTHOR 10/25/2017 [facility] DATE CREATED AUTHOR AUTHOR'S ORGANIZ ATION 09/03/2022 [facility] DATE CREATED AUTHOR AUTHOR'S ORGANIZ ATION 10/10/2022 [facility] DATE CREATED AUTHOR AUTHOR'S ORGANIZ ATION 12/13/2022 [facility] REASON FOR VISIT (unrecogniz ed section and content) labsmessage3 MONTH FOLLOW UP ACrefillmessagemessageRefill3 month Follow upDM [id number] Referralrefills FOR RECORDS PERTAINING TO PATIENTS WHO ARE OR HAVE BEEN ENROLLED IN A CHEMICAL DEPENDENCY/SUBSTANCEABUSE PROGRAM, SOME INFORMATION MAY BE OMITTED. This clinical summary was aggregated from multiple sources. Caution should be exercised in using it in the provision of clinical care. This summary normalizes information from multiple sources, and as a consequence, information in this document may materially change the coding, format and clinical context of patient data. In addition, data may be omitted in some cases. CLINICAL DECISIONS SHOULD BE BASED ON THE PRIMARY CLINICAL RECORDS. [employer] provides no warranty or guarantee of the accuracy or completeness of information in this document.
[2023-05-06 16:21] VITALS: BP 163/83; PULSE 93; RESP 18; TEMP 36.4; O2SAT 96; BMI 34.4
--- NOTE | 2023-05-06 16:22 | XR_ITS ---
The [address] [place] [address] [address] Patient Name: COLETTE DINH MRN: [id number] date: 1970 Sex: F Assigned Patient Location: ER Current Patient Location: ER Accession/Order Number: [id number] Exam Date: 05/06/2023 16:32 Report Date: 05/06/2023 17:31 At the request of: SANDRINE CORRALES Procedure: XR wrist RT min 3V IMAGES REVIEWED: XR wrist RT min 3V, XR hand RT 2V COMPARISON: 11/06/2015. CLINICAL INDICATION: injury, pain FINDINGS/IMPRESSION: Suspect acute nondisplaced distal ulnar fracture with adjacent focal ulnar wrist soft tissue swelling. Otherwise the right hand and wrist appear intact. No dislocation. Electronically authenticated by: BARRON BEY Date: 05/06/2023 17:31
--- NOTE | 2023-05-06 16:22 | XR_ITS ---
The [address] [address] Patient Name: COLETTE DINH MRN: [id number] date: 1970 Sex: F Assigned Patient Location: ER Current Patient Location: ER Accession/Order Number: [id number] Exam Date: 05/06/2023 16:32 Report Date: 05/06/2023 17:31 At the request of: SANDRINE CORRALES Procedure: XR hand RT 2V IMAGES REVIEWED: XR wrist RT min 3V, XR hand RT 2V COMPARISON: 11/06/2015. CLINICAL INDICATION: injury, pain FINDINGS/IMPRESSION: Suspect acute nondisplaced distal ulnar fracture with adjacent focal ulnar wrist soft tissue swelling. Otherwise the right hand and wrist appear intact. No dislocation. Electronically authenticated by: BARRON BEY Date: 05/06/2023 17:31
[2023-05-06] MEDS: ACETAMINOPHEN 325 MG TABLET 650 MG PO (16:55)
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
== END 2023-05-06 17:59 | disposition home or self-care (01) ==
PROVIDERS: Emergency Provider Emergency Medicine; PCP Family Medicine
DX: S52.601A Unspecified fracture of lower end of right ulna, initial encounter for closed fracture (principal); W23.0XXA Caught, crushed, jammed, or pinched between moving objects, initial encounter; Z79.82 Long term (current) use of aspirin; Z79.899 Other long term (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 therapy; Z79.4 Long term (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 of insulin; Z79.84 Long term (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 of oral hypoglycemic drugs
CPT/HCPCS: 29125; 73110; 73120; 99283

== ENCOUNTER 2023-05-11 15:15 | Emergency (ER) | payer MEDICARE, MEDICAID, SELFPAY ==
[2023-05-11 15:28] VITALS: BP 148/90; PULSE 86; TEMP 36.8; O2SAT 98; BMI 37.5
--- OUTSIDE RECORDS SUMMARY | 2023-05-11 15:31 | XMS_ITS | CCD ---
Author Name Unknown Address [address] [facility] [address] [place] [address] Organization [facility] Care Team Providers Care Reconstructive Surgeon Name Role Phone PHYSICIAN, DEFAULT Unavailable Unavailable [...] e MARKER ., DR FOWLER Admitting Unavailable AHJAVAD ARREGUIN Consulting Unavailable HAY ., DR CARPIO Consulting [...] DELA CRUZ, DR SHAYY Reyes Admitting Unavailable DLEA CRUZ, DR SHAYY Reyes Primary Care Unavailable [...] (1 source) codeine Drug Allergy 9 [facility] Repository (3 sources) Latex; Translations: [LATEX] Drug allergy (disorder) 9 [facility] Repository (19 sources) Codeine; Translations: [CODEINE] Drug Allergy 0 nausea [facility] Repository (12 sources) Latex Drug allergy sores on skin [employer] Other (1 source) Codeine Drug Allergy [facility] Repository (1 source) atorvastatin; Translations: [ATORVASTATIN] Drug Allergy 3 [facility] Repository Medications Current Medications Medication Drug Class(es) [...] angina pectoris; Translations: [Atherosclerotic heart disease of [place] coronary artery without angina pectoris] Onset: 03-24-2022 [...] Onset: 11-09-2021 Chronic Other aftercare (2 sources) 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; Translations: [SUBSTATION WIREMAN CURRENT USE OF INSULIN] Onset: 04-08-2022 Episodic Other aftercare (6 sources) Long-term current use of insulin; Translations: [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] Episodic Other connective [...] Onset: 04-08-2022 Episodic Other aftercare (1 source) 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 (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; Translations: [SUBSTATION WIREMAN CURRENT USE OF ASPIRIN] Onset: 04-08-2022 Episodic Other aftercare (1 source) care home (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 of oral hypoglycemic drugs; Translations: [SUBSTATION WIREMAN USE ORAL HYPOGLYCEMIC DX] Onset: 04-08-2022 Episodic Other aftercare (1 source) 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 (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 therapy; Translations: [OTH SUBSTATION WIREMAN CURRENT DRUG THERAPY] Onset: 11-09-2021 Episodic Other [...] Range Facility Office Visiton 12-13-2022 Follow-up visit [id number] Arlette Ramos 1970 F Date Provider Department Center 12/13/2022 3848-MARQUES MOROCHO CARD [facility] No family history on file Level of Service:37729 ID OFFICE/OUTPATIENT ESTABLISHED LOW MDM 20-29 MIN Reason for Visit and Comments: Follow-up [851142] - 4 mo follow up Normal [facility] IGP,Aptima HPV,Age Gdlnon PAP HPV Aptima Negative Normal Negative [facility] Comment on above: Order Comment: RAE ENRIQUEZ TECHNIQUE:: BROOM-ALONE GYNOCOLOGICAL BODY SITE:: CERVIX ENDOCERVIX Result Comment: This nucleic acid amplification test detects fourteen high- risk HPV types (16,18,31,33,35,39,45,51,52,56,58,59,66,68) without differentiation. PERFORMED BY: [address] [place] [address] PATHOLOGIST VAMP THROATER RUBINA RICCI M.D. Performed By: #### P AP [id number] #### [facility] , Pap Image Guided Note Normal . [facility] Comment on above: Order Comment: RAE ENRIQUEZ TECHNIQUE:: BROOM-ALONE GYNOCOLOGICAL BODY SITE:: CERVIX ENDOCERVIX Result Comment: TEST S RESULT FLAG UNITS REF RANGE LAB Clinician Provided Cytology Information Source.............Cervix;Endocervix No. of containers..01 ThinPrep Vial Age Brandono MARTINOG Joie... FLAG LEGEND: L-Low Normal,H-High Normal,LL-Alert Low,HH-Alert High <-Panic Low,>-Panic High,A-Abnormal,AA-Critical Abnormal Performed at: 01 =G [facility] [id number] Christina Burden MD, Performed By: #### P AP [id number] #### [facility] , Result Comment: TEST S RESULT FLAG UNITS REF RANGE LAB DIAGNOSIS: 02 NEGATIVE FOR INTRAEPITHELIAL LESION OR MALIGNANCY. CELLULAR CHANGES ASSOCIATED WITH ATROPHY ARE PRESENT. Specimen adequacy: 02 Satisfactory for evaluation. Endocervical component may not be distinguished in cases of atrophy. Performed by: 02 Rama Baker, Avionics Mechanic (ASCP) . 02 Note: Note 02 The [...] <-Panic Low,>-Panic High,A-Abnormal,AA-Critical Abnormal Performed at: [address] [id number] Christina Burden MD, CBC AUTO DIFFon 08-27-2022 BASO # 0.0 103/ul Normal 0.0-0.1 [facility] Comment on above: Performed By: #### C BC #### [facility] [address] [address] [address] Sarah Church Basophils/100 WBC (Bld) 0.5 % Normal 0.2-2.0 [facility] Comment on above: Performed By: #### C BC #### [facility] [address] [place] [address] Dr. Sarah Church EO # 0.2 103/ul Normal 0.0-0.7 [facility] Comment on above: Performed By: #### C BC #### [facility] [address] [place] [address] Dr. Sarah Church Eosinophils/100 WBC (Bld) 2.2 % Normal 0.9-7.0 [facility] Comment on above: Performed By: #### C BC #### [facility] [address] [place] [address] Dr. Sarah Church Erythrocyte distribution width (RBC) [Ratio] 12.5 % Normal 11.0-15.0 [facility] Comment on above: Performed By: #### C BC #### [facility] [address] [place] [address] Dr. Sarah Church Hematocrit (Bld) [Volume fraction] 44.1 % Normal 36.0-48.0 [facility] Comment on above: Performed By: #### C BC #### [facility] [address] [place], [place] [id number] Dr. Sarah Church Hemoglobin (Bld) [Mass/Vol] 15.1 g/dL Normal 12.0-16.0 [facility] Comment on above: Performed By: #### C BC #### [facility] [address] [place] [address] Dr. Sarah Church IG # 0.02 10e3/ul Normal 0.00-0.03 [facility] Comment on above: Performed By: #### C BC #### [facility] [address] [place] [address] Dr. Sarah Church IG % 0.2 % Normal 0.0-0.5 [facility] Comment on above: Performed By: #### C BC #### [facility] [address] [place] [address] Dr. Sarah Church LYMPH # 2.9 103/ul Normal 1.2-3.8 [facility] Comment on above: Performed By: #### C BC #### [facility] [address] [place] [address] Dr. Sarah Church Lymphocytes/100 WBC (Bld) 33.4 % Normal 20.5-60.0 [facility] Comment on above: Performed By: #### C BC #### [facility] [address] [place] [address] Dr. Sarah Church MANUAL DIFF REQ NO Normal [facility] Comment on above: Performed By: #### C BC #### [facility] [address] [place] [address] Dr. Sarah Church MCH (RBC) [Entitic mass] 29.1 pg Normal 26.7-34.0 [facility] Comment on above: Performed By: #### C BC #### [facility] [address] [place] [address] Dr. Sarah Church MCHC (RBC) [Mass/Vol] 34.2 g/dL Normal 29.9-35.2 [facility] Comment on above: Performed By: #### C BC #### [facility] [address] [place] [address] Dr. Sarah Church MCV (RBC) [Entitic vol] 85.0 fL Normal 81.0-99.0 [facility] Comment on above: Performed By: #### C BC #### [facility] [address] [place] [address] Dr. Sarah Church MONO # 0.6 103/ul Normal 0.3-0.8 [facility] Comment on above: Performed By: #### C BC #### [facility] [address] [address] [address] Sarah Church Monocytes/100 WBC (Bld) 6.8 % Normal 1.7-12.0 [facility] Comment on above: Performed By: #### C BC #### [facility] [address] [place] [address] Dr. Sarah Church NEUT # 4.9 103/ul Normal 1.4-6.5 [facility] Comment on above: Performed By: #### C BC #### [facility] [address] [place] [address] Dr. Sarah Church Neutrophils/100 WBC (Bld) 56.9 % Normal 43.0-75.0 [facility] Comment on above: Performed By: #### C BC #### [facility] [address] [place] [address] Dr. Sarah Church Platelet mean volume (Bld) [Entitic vol] 10.8 fL Normal 9.5-13.5 [facility] Comment on above: Performed By: #### C BC #### [facility] [address] [place] [address] Dr. Sarah Church PLT 276 103/ul Normal 150-450 [facility] Comment on above: Performed By: #### C BC #### [facility] [address] [place] [address] Dr. Sarah Church RBC 5.19 106/ul Normal 4.20-5.40 [facility] Comment on above: Performed By: #### C BC #### [facility] [address] [place] [address] Dr. Sarah Church WBC 8.6 103/ul Normal 4.0-11.0 [facility] Comment on above: Performed By: #### C BC #### [facility] [address] [place] [address] Dr. Sarah Church LIPID PROFILEon 08-27-2022 CHOL-HDL RATIO NORM SEE BELOW Normal [facility] Comment on above: Result Comment: 3.3 - 4.4 LOW RISK 4.4 - 7.1 AVERAGE RISK 7.1 - 11.0 MODERATE RISK >11.0 HIGH RISK Performed By: #### L IPID, CMP #### [facility] [address] [address] [address] Sarah Church Cholesterol [Mass/Vol] 110 mg/dL Normal <=200 [facility] Comment on above: Performed By: #### L IPID, CMP #### [facility] [address] [address] [address] Sarah Church Cholesterol in HDL [Mass/Vol] 33 mg/dL Critically low 40-60 [facility] Comment on above: Performed By: #### L IPID, CMP #### [facility] [address] [address] [address] Sarah Church Cholesterol in LDL [Mass/Vol] 58.0 mg/dL Normal [facility] Comment on above: Performed By: #### L IPID, CMP #### [facility] [address] [address] [address] Sarah Church Cholesterol.total/C holesterol in HDL [Mass ratio] 3.3 {ratio} Normal [facility] Comment on above: Performed By: #### L IPID, CMP #### [facility] [address] [address] [address] Sarah Church HDL NORMAL > or = 60 mg/dl - LO W CARDIOVASCULAR RISK <40 mg/dl - HIGH CARDIOVASCULAR RISK Normal [facility] Comment on above: Performed By: #### L IPID, CMP #### [facility] [address] [address] [address] Sarah Church LDL CALC NORMAL SEE BELOW Normal [facility] Comment on above: Result Comment: <100 mg/dl OPTIMAL 100 - 129 mg/dl NEAR OR ABOVE OPTIMAL 130 - 159 mg/dl BORDERLINE HIGH 160 - 189 mg/dl HIGH >190 mg/dl VERY HIGH Performed By: #### L IPID, CMP #### [facility] [address] [address] [address] Sarah Church Triglyceride [Mass/Vol] 95 mg/dL Normal <=150 [facility] Comment on above: Performed By: #### L IPID, CMP #### [facility] [address] [place] [address] Dr. Sarah Church VLDL CALC 19.0 mg/dL Normal [facility] Comment on above: Performed By: #### L IPID, CMP #### [facility] [address] [place] [address] Dr. Sarah Church PROF 14(COMP METB)on 023 Albumin [Mass/Vol] 3.3 g/dL Critically low 3.4-5.0 Th e [facility] Comment on above: Performed By: #### L IPID, CMP #### [facility] [address] [place] [address] Dr. Sarah Church Albumin/Globulin [Mass ratio] 0.8 {ratio} Normal [facility] Comment on above: Performed By: #### L IPID, CMP #### [facility] [address] [place] [address] Dr. Sarah Church ALP [Catalytic activity/Vol] 100 U/L Normal 46-116 [facility] Comment on above: Performed By: #### L IPID, CMP #### [facility] [address] [place] [address] Dr. Sarah Church ALT [Catalytic activity/Vol] 74 U/L Critically high 14-59 [facility] Comment on above: Performed By: #### L IPID, CMP #### [facility] [address] [place] [address] Dr. Sarah Church Anion gap [Moles/Vol] 13.2 mmol/L Normal [facility] Comment on above: Performed By: #### L IPID, CMP #### [facility] [address] [place] [address] Dr. Sarah Church AST [Catalytic activity/Vol] 42 U/L Critically high 15-37 [facility] Comment on above: Performed By: #### L IPID, CMP #### [facility] [address] [place] [address] Dr. Sarah Church Bilirubin [Mass/Vol] 0.4 mg/dL Normal 0.2-1.0 [facility] Comment on above: Performed By: #### L IPID, CMP #### [facility] [address] [place] [address] Dr. Sarah Church Calcium [Mass/Vol] 9.2 mg/dL Normal 8.5-10.1 [facility] Comment on above: Performed By: #### L IPID, CMP #### [facility] [address] [place] [address] Dr. Sarah Church Chloride [Moles/Vol] 99 mmol/L Normal 98-107 [facility] Comment on above: Performed By: #### L IPID, CMP #### [facility] [address] [place] [address] Dr. Sarah Church CO2 [Moles/Vol] 30.4 mmol/L Normal 21.0-32.0 [facility] Comment on above: Performed By: #### L IPID, CMP #### [facility] [address] [place] [address] Dr. Sarah Church Creatinine [Mass/Vol] 0.78 mg/dL Normal 0.55-1.02 [facility] Comment on above: Performed By: #### L IPID, CMP #### [facility] [address] [place] [address] Dr. Sarah Church EGFR-AF CONGOLESE >60 Normal >=[address] [facility] Comment on above: Performed By: #### L IPID, CMP #### [facility] [address] [place] [address] Dr. Sarah Church EGFR-NON AF CONGOLESE >60 Normal >=60 [facility] Comment on above: Performed By: #### L IPID, CMP #### [facility] [address] [place] [address] Dr. Sarah Church Globulin (S) [Mass/Vol] 4.0 g/dL Normal [facility] Comment on above: Performed By: #### L IPID, CMP #### [facility] [address] [place] [address] Dr. Sarah Church Glucose [Mass/Vol] 255 mg/dL Critically high 74-106 [facility] Comment on above: Performed By: #### L IPID, CMP #### [facility] [address] [address] [address] Sarah Church Potassium [Moles/Vol] 3.6 mmol/L Normal 3.5-5.1 [facility] Comment on above: Performed By: #### L IPID, CMP #### [facility] [address] [place] [address] Dr. Sarah Church Protein [Mass/Vol] 7.3 g/dL Normal 6.4-8.2 [facility] Comment on above: Performed By: #### L IPID, CMP #### [facility] [address] [place] [address] Dr. Sarah Church Sodium [Moles/Vol] 139 mmol/L Normal 136-145 [facility] Comment on above: Performed By: #### L IPID, CMP #### [facility] [address] [place] [address] Dr. Sarah Church Urea nitrogen [Mass/Vol] 8.0 mg/dL Normal 7.0-18.0 [facility] Comment on above: Performed By: #### L IPID, CMP #### [facility] [address] [place] [address] Dr. Sarah Church Urea nitrogen/Creatinine [Mass ratio] 10.3 mg/mg Normal [facility] Comment on above: Performed By: #### L IPID, CMP #### [facility] [address] [place] [address] Dr. Sarah Church 37on 08-10-2022 37 -Start hydrochlorothiazide 12.5 mg in the morning -Check labs 1 week after starting new medication -Take blood pressure to appointment with Dr. Dela Cruz for correlation Normal [facility] Office Visiton 08-10-2022 Follow-up visit [id number] Arlette Ramos 1970 F Date Provider Department Center 08/10/2022 [id number]-ZUKNGWZRECHRISTEN BENITES BH CARD [facility] No family history on file Level of Service:76572 ID OFFICE/OUTPATIENT ESTABLISHED MOD MDM 30-39 MIN Reason for Visit and Comments: Coronary Artery Disease [187] Hypertension [471312] Normal [facility] MG MAMM SCREEN 3D ROB CADon 07-20-2022 MG MAMM SCREEN 3D ROB CAD Patient: ZOILA RAMOS Exam Date: 07/20/2022 : 1970 Gender:F Ordering : DR SHAYY DELA CRUZ M.D. Admission #: [id number] Family : Order #: [id number] CLICK HERE TO VIEW EXAM RADIOLOGY REPORT PROCEDURE: MAMMOGRAM SCREENING 3D BILATERAL CAD COMPARISON: MAMMO ROB SCREEN W CAD DIG, 05/16/2012. INDICATIONS: Screening mammography Calculator Name NCI Breast Cancer Risk Assessment Tool 5 Year Breast Cancer Risk 1.20% Lifetime Breast Cancer Risk 10.80% Personal Breast Cancer No Personal Ovarian Cancer No Treatments None Family Cancers None LOCATION: [facility] BREAST COMPOSITION: Almost entirely fatty. FINDINGS: DIAGNOSTIC [...] Lan M.D. on 07/21/2022 at 08:24 Normal [facility] PROF CHEM 8 (BAS METB)on Anion gap [Moles/Vol] 14.5 mmol/L Normal [facility] Comment on above: Performed By: #### B MP #### [facility] [address] [place], [place] [address] Dr. Sarah Church Calcium [Mass/Vol] 9.8 mg/dL Normal 8.5-10.1 [facility] Comment on above: Performed By: #### B MP #### [facility] [address] [place], [place] [address] Dr. Sarah Church Chloride [Moles/Vol] 99 mmol/L Normal 98-107 [facility] Comment on above: Performed By: #### B MP #### [facility] [address] [address] [address] Sarah Church CO2 [Moles/Vol] 27.2 mmol/L Normal 21.0-32.0 [facility] Comment on above: Performed By: #### B MP #### [facility] [address] [address] [address] Sarah Church Creatinine [Mass/Vol] 0.80 mg/dL Normal 0.55-1.02 [facility] Comment on above: Performed By: #### B MP #### [facility] [address] [address] [address] Sarah Church EGFR-AF CONGOLESE >60 Normal >=60 [facility] Comment on above: Performed By: #### B MP #### [facility] [address] [address] [address] Sarah Church EGFR-NON AF CONGOLESE >60 Normal >=60 [facility] Comment on above: Performed By: #### B MP #### [facility] [address] [address] [address] Sarah Church Glucose [Mass/Vol] 458 mg/dL Critically high 74-106 T [facility] Comment on above: Performed By: #### B MP #### [facility] [address] [address] [address] Sarah Church Potassium [Moles/Vol] 4.7 mmol/L Normal 3.5-5.1 [facility] Comment on above: Performed By: #### B MP #### [facility] [address] [address] [address] Sarah Church Sodium [Moles/Vol] 136 mmol/L Normal 136-145 [facility] Comment on above: Performed By: #### B MP #### [facility] [address] [address] [address] Sarah Church Urea nitrogen [Mass/Vol] 15.0 mg/dL Normal 7.0-18.0 [facility] Comment on above: Performed By: #### B MP #### [facility] [address] [address] [address] Sarah Church Urea nitrogen/Creatinine [Mass ratio] 18.8 mg/mg Normal [facility] Comment on above: Performed By: #### B MP #### [facility] [address] [address] [address] Sarah Church Orders Onlyon 06-04-2022 Orders Only [id number] Richard,Arlette Sidhu 1970 F Date Provider Department Center 06/04/2022 Shila-JESSICA STONE [facility] No family history on file [facility] 36on 06-01-2022 36 Patient called and i [...] her high cholesterol . HELP!! lol Normal [facility] Orders Onlyon 06-01-2022 Orders Only [id number] RichardArlette Sidhu 1970 F Date Provider Department Center 06/01/2022 Carlos-MALCOLM EVANS [facility]. No family history on file [facility] 36on 05-28-2022 36 Spoke with flaca she states to call in script of losartan 25 mg QD Normal [facility] GLYCOHEMOGLOBIN A1Con 2022 ADA RECOMMENDATION SEE BELOW Normal [facility] Comment on above: Result Comment: ADA RECOMMENDED LIMIT 4.0 - 6.0 ADA THERAPEUTIC TARGET < 7.0 ACTION SUGGESTED > 7.0 Performed By: #### A 1C ####[facility] [id number] [id number][address] Sarah Church Glucose [Mass/Vol] 266 mg/dL Normal [facility] Comment on above: Performed By: #### A 1C ####[facility] [id number] [id number][address] Sarah Church HbA1c (Bld) [Mass fraction] 10.9 % Critically high 4.5-6.2 [facility] Comment on above: Performed By: #### A 1C ####[facility] [id number] [place], [place] [address]XkDr. Sarah Church Office Visiton 05-19-2022 Follow-up visit [id number] Arlette Ramos 1970 F Date Provider Department Center 05/19/2022 MALCOLM SCHAFER BH CARD [facility] No family history on file Level of Service:66251 ID OFFICE/OUTPATIENT ESTABLISHED MOD MDM 30-39 MIN Reason for Visit and Comments: Coronary Artery Disease [187] Hyperlipidemia [182] [facility] Center XR HIP RT 2 3V W PELVISon [...] JAVAD ROB Date: 2022-04-06 21:15 Normal [facility] CBC AUTO DIFFon 11-05-2021 BASO # 0.1 103/ul Normal 0.0-0.1 [facility] Comment on above: Performed By: #### C BC #### [facility] Laboratory [address] [address] [address] Sarah Church Basophils/100 WBC (Bld) 0.4 % Normal 0.2-2.0 [facility] Comment on above: Performed By: #### C BC #### [facility] Laboratory [address] [address] [address] Sarah Church EO # 0.2 103/ul Normal 0.0-0.7 [facility] Comment on above: Performed By: #### C BC #### [facility] [address] [address] [address] Sarah Church Eosinophils/100 WBC (Bld) 1.3 % Normal 0.9-7.0 [facility] Comment on above: Performed By: #### C BC #### [facility] Laboratory [address] [place] [address] Dr. Sarah Church Erythrocyte distribution width (RBC) [Ratio] 12.3 % Normal 11.0-15.0 [facility] Comment on above: Performed By: #### C BC #### [facility] Laboratory [address] [place] [address] Dr. Sarah Church Hematocrit (Bld) [Volume fraction] 43.1 % Normal 36.0-48.0 [facility] Comment on above: Performed By: #### C BC #### [facility] [address] [place] [address] Dr. Sarah Church Hemoglobin (Bld) [Mass/Vol] 14.6 g/dL Normal 12.0-16.0 [facility] Comment on above: Performed By: #### C BC #### [facility] Laboratory [address] [place] [address] Dr. Sarah Church IG # 0.04 10e3/ul Critically high 0.00-0.03 [facility] Comment on above: Performed By: #### C BC #### [facility] [address] [place] [address] Dr. Sarah Church IG % 0.3 % Normal 0.0-0.5 [facility] Comment on above: Performed By: #### C BC #### [facility] [address] [place] [address] Dr. Sarah Church LYMPH # 1.6 103/ul Normal 1.2-3.8 [facility] Comment on above: Performed By: #### C BC #### [facility] [address] [place] [address] Dr. Sarah Church Lymphocytes/100 WBC (Bld) 12.5 % Critically low 20.5-60.0 [facility] Comment on above: Performed By: #### C BC #### [facility] [address] [place] [address] Dr. Sarah Church MANUAL DIFF REQ NO Normal [facility] Comment on above: Performed By: #### C BC #### [facility] [address] [place] [address] Dr. Sarah Church MCH (RBC) [Entitic mass] 29.4 pg Normal 26.7-34.0 [facility] Comment on above: Performed By: #### C BC #### [facility] [address] [place] [address] Dr. Sarah Church MCHC (RBC) [Mass/Vol] 33.9 g/dL Normal 29.9-35.2 [facility] Comment on above: Performed By: #### C BC #### [facility] [address] [address] [address] Sarah Church MCV (RBC) [Entitic vol] 86.7 fL Normal 81.0-99.0 [facility] Comment on above: Performed By: #### C BC #### [facility] [address] [place] [address] Dr. Sarah Church MONO # 1.0 103/ul Critically high 0.3-0.8 [facility] Comment on above: Performed By: #### C BC #### [facility] [address] [place] [address] Dr. Sarah Church Monocytes/100 WBC (Bld) 7.7 % Normal 1.7-12.0 [facility] Comment on above: Performed By: #### C BC #### [facility] [address] [place] [address] Dr. Sarah Church NEUT # 9.6 103/ul Critically high 1.4-6.5 [facility] Comment on above: Performed By: #### C BC #### [facility] [address] [place] [address] Dr. Sarah Church Neutrophils/100 WBC (Bld) 77.8 % Critically high 43.0-75.0 [facility] Comment on above: Performed By: #### C BC #### [facility] [address] [place] [address] Dr. Sarah Church Platelet mean volume (Bld) [Entitic vol] 11.0 fL Normal 9.5-13.5 [facility] Comment on above: Performed By: #### C BC #### [facility] [address] [place] [address] Dr. Sarah Church PLT 220 103/ul Normal 150-450 [facility] Comment on above: Performed By: #### C BC #### [facility] [address] [address] [address] Sarah Church RBC 4.97 106/ul Normal 4.20-5.40 [facility] Comment on above: Performed By: #### C BC #### [facility] [address] [address] [address] Sarah Church WBC 12.4 103/ul Critically high 4.0-11.0 [facility] Comment on above: Performed By: #### C BC #### [facility] [address] [address] [address] Sarah Church GROUP A STREP CULTUREon S. pyogenes Ag Ql (Unsp spec) Culture Observations: NEGATIVE FOR GROUP A STREPTOCOCCUS. Normal [facility] Comment on above: Performed By: #### G RASTCX, SSCRN ####[facility] [address] [address]Dr. Sarah Church POINT OF CARE GLUCOSEon Glucose [Mass/Vol] 214 mg/dL Critically high 74-106 [facility] Comment on above: Performed By: #### P OCGLUC #### [facility] [address] [address] [address] Sarah Church STREPT SCREENon 11-05-2021 STREP SCREEN A Negative Normal NEGATIVE [facility] Comment on above: Performed By: #### G RASTCX, SSCRN ####[facility] [address] [address]Dr. Sarah Church CBC AUTO DIFFon 10-16-2021 BASO # 0.1 103/ul Normal 0.0-0.1 [facility] Comment on above: Performed By: #### C BC #### [facility] [address] [address] [address] Sarah Church Basophils/100 WBC (Bld) 0.8 % Normal 0.2-2.0 [facility] Comment on above: Performed By: #### C BC #### [facility] [address] [place] [address] Dr. Sarah Church EO # 0.3 103/ul Normal 0.0-0.7 [facility] Comment on above: Performed By: #### C BC #### [facility] [address] [place] [address] Dr. Sarah Church Eosinophils/100 WBC (Bld) 3.4 % Normal 0.9-7.0 [facility] Comment on above: Performed By: #### C BC #### [facility] [address] [place] [address] Dr. Sarah Church Erythrocyte distribution width (RBC) [Ratio] 12.6 % Normal 11.0-15.0 [facility] Comment on above: Performed By: #### C BC #### [facility] [address] [place] [address] Dr. Sarah Church Hematocrit (Bld) [Volume fraction] 45.4 % Normal 36.0-48.0 [facility] Comment on above: Performed By: #### C BC #### [facility] [address] [place] [address] Dr. Sarah Church Hemoglobin (Bld) [Mass/Vol] 15.0 g/dL Normal 12.0-16.0 [facility] Comment on above: Performed By: #### C BC #### [facility] [address] [place] [address] Dr. Sarah Church IG # 0.02 10e3/ul Normal 0.00-0.03 [facility] Comment on above: Performed By: #### C BC #### [facility] [address] [place] [address] Dr. Sarah Church IG % 0.2 % Normal 0.0-0.5 [facility] Comment on above: Performed By: #### C BC #### [facility] [address] [place] [address] Dr. Sarah Church LYMPH # 2.7 103/ul Normal 1.2-3.8 [facility] Comment on above: Performed By: #### C BC #### [facility] [address] [place] [address] Dr. Sarah Church Lymphocytes/100 WBC (Bld) 31.0 % Normal 20.5-60.0 [facility] Comment on above: Performed By: #### C BC #### [facility] [address] [place] [address] Dr. Sarah Church MANUAL DIFF REQ NO Normal [facility] Comment on above: Performed By: #### C BC #### [facility] [address] [place] [address] Dr. Sarah Church MCH (RBC) [Entitic mass] 29.3 pg Normal 26.7-34.0 [facility] Comment on above: Performed By: #### C BC #### [facility] [address] [place] [address] Dr. Sarah Church MCHC (RBC) [Mass/Vol] 33.0 g/dL Normal 29.9-35.2 [facility] Comment on above: Performed By: #### C BC #### [facility] [address] [place] [address] Dr. Sarah Church MCV (RBC) [Entitic vol] 88.7 fL Normal 81.0-99.0 [facility] Comment on above: Performed By: #### C BC #### [facility] [address] [place] [address] Dr. Sarah Church MONO # 0.6 103/ul Normal 0.3-0.8 [facility] Comment on above: Performed By: #### C BC #### [facility] [address] [place] [address] Dr. Sarah Church Monocytes/100 WBC (Bld) 6.5 % Normal 1.7-12.0 [facility] Comment on above: Performed By: #### C BC #### [facility] [address] [place] [address] Dr. Sarah Church NEUT # 5.0 103/ul Normal 1.4-6.5 [facility] Comment on above: Performed By: #### C BC #### [facility] [address] [address] [address] Sarah Church Neutrophils/100 WBC (Bld) 58.1 % Normal 43.0-75.0 [facility] Comment on above: Performed By: #### C BC #### [facility] [address] [address] [address] Sarah Church Platelet mean volume (Bld) [Entitic vol] 11.0 fL Normal 9.5-13.5 [facility] Comment on above: Performed By: #### C BC #### [facility] [address] [address] [address] Sarah Church PLT 226 103/ul Normal 150-450 [facility] Comment on above: Performed By: #### C BC #### [facility] [address] [address] [address] Sarah Church RBC 5.12 106/ul Normal 4.20-5.40 [facility] Comment on above: Performed By: #### C BC #### [facility] [address] [address] [address] Sarah Church WBC 8.6 103/ul Normal 4.0-11.0 [facility] Comment on above: Performed By: #### C BC #### [facility] [address] [address] [address] Sarah Church GLYCOHEMOGLOBIN A1Con 2021 ADA RECOMMENDATION SEE BELOW Normal [facility] Comment on above: Result Comment: ADA RECOMMENDED LIMIT 4.0 - 6.0 ADA THERAPEUTIC TARGET < 7.0 ACTION SUGGESTED > 7.0 Performed By: #### A 1C ####[facility] [address] [address]Dr. Sarah Church Glucose [Mass/Vol] 275 mg/dL Normal [facility] Comment on above: Performed By: #### A 1C ####[facility] [address] [id number]. Sarah Church HbA1c (Bld) [Mass fraction] 11.2 % Critically high 4.5-6.2 [facility] Comment on above: Performed By: #### A 1C ####[facility] [address] [place], [place] [address]Bm. Sarah Church LIPID PROFILEon 10-16-2021 CHOL-HDL RATIO NORM SEE BELOW Normal [facility] Comment on above: Result Comment: 3.3 - 4.4 LOW RISK 4.4 - 7.1 AVERAGE RISK 7.1 - 11.0 MODERATE RISK >11.0 HIGH RISK Performed By: #### L IPID, CMP ####[facility] [address] [place], [place] [address]Fj. Sarah Church Cholesterol [Mass/Vol] 159 mg/dL Normal <=200 [facility] Comment on above: Performed By: #### L IPID, CMP ####[facility] [address] [id number]. Corriebrenden Church Cholesterol in HDL [Mass/Vol] 41 mg/dL Normal 40-60 [facility] Comment on above: Performed By: #### L IPID, CMP ####[facility] [address] [id number]. Corriebrenden Ranjit Cholesterol in LDL [Mass/Vol] 102.6 mg/dL Normal [facility] Comment on above: Performed By: #### L IPID, CMP ####[facility] [address] [id number]. Sarah Ranjit Cholesterol.total/C holesterol in HDL [Mass ratio] 3.9 {ratio} Normal [facility] Comment on above: Performed By: #### L IPID, CMP ####[facility] [address] [id number]. Sarah Church HDL NORMAL > or = 60 mg/dl - LO W CARDIOVASCULAR RISK <40 mg/dl - HIGH CARDIOVASCULAR RISK Normal [facility] Comment on above: Performed By: #### L IPID, CMP ####[facility] [address] [id number]. Sarah Church LDL CALC NORMAL SEE BELOW Normal [facility] Comment on above: Result Comment: <100 mg/dl OPTIMAL 100 - 129 mg/dl NEAR OR ABOVE OPTIMAL 130 - 159 mg/dl BORDERLINE HIGH 160 - 189 mg/dl HIGH >190 mg/dl VERY HIGH Performed By: #### L IPID, CMP ####[facility] [address] [address]Dr. Sarah Church Triglyceride [Mass/Vol] 77 mg/dL Normal <=150 [facility] Comment on above: Performed By: #### L IPID, CMP ####[facility] [address] [address]Dr. Sarah Church VLDL CALC 15.4 mg/dL Normal [facility] Comment on above: Performed By: #### L IPID, CMP ####[facility] [address] [address]Dr. Sarah Church MICROALBUMIN, RAND URon 09-30 mALB 2.0 mg/L Normal <=30.0 [facility] Comment on above: Performed By: #### M ALBR #### [facility] Laboratory [address] [address] [address] Sarah Church PROF 14(COMP METB)on 022 Albumin [Mass/Vol] 3.5 g/dL Normal 3.4-5.0 [facility] Comment on above: Performed By: #### L IPID, CMP ####[facility] [address] [address]Dr. Sarah Church Albumin/Globulin [Mass ratio] 0.8 {ratio} Normal [facility] Comment on above: Performed By: #### L IPID, CMP ####[facility] [address] [address]Dr. Sarah Church ALP [Catalytic activity/Vol] 85 U/L Normal 46-116 [facility] Comment on above: Performed By: #### L IPID, CMP ####[facility] [address] [address]Dr. Sarah Church ALT [Catalytic activity/Vol] 59 U/L Normal 14-59 [facility] Comment on above: Performed By: #### L IPID, CMP ####[facility] [address] [address]Dr. Sarah Church Anion gap [Moles/Vol] 15.1 mmol/L Normal [facility] Comment on above: Performed By: #### L IPID, CMP ####[facility] [address] [place], [place] [address]Dr. Sarah Church AST [Catalytic activity/Vol] 32 U/L Normal 15-37 [facility] Comment on above: Performed By: #### L IPID, CMP ####[facility] [address] [place], [place] [address]Dr. Sarah Church Bilirubin [Mass/Vol] 0.4 mg/dL Normal 0.2-1.0 [facility] Comment on above: Performed By: #### L IPID, CMP ####[facility] [address] [place], [place] [address]Dr. Sarah Church Calcium [Mass/Vol] 9.0 mg/dL Normal 8.5-10.1 [facility] Comment on above: Performed By: #### L IPID, CMP ####[facility] [address] [place], [place] [address]Dr. Sarah Church Chloride [Moles/Vol] 102 mmol/L Normal 98-107 [facility] Comment on above: Performed By: #### L IPID, CMP ####[facility] [address] [place], [place] [address]Dr. Sarah Church CO2 [Moles/Vol] 30.2 mmol/L Normal 21.0-32.[address] [facility] Comment on above: Performed By: #### L IPID, CMP ####[facility] [address] [place], [place] [address]Dr. Sarah Church Creatinine [Mass/Vol] 0.81 mg/dL Normal 0.55-1.02 [facility] Comment on above: Performed By: #### L IPID, CMP ####[facility] [address] [place], [place] [address]Dr. Sarah Church EGFR-AF CONGOLESE >60 Normal >=[address] [facility] Comment on above: Performed By: #### L IPID, CMP ####[facility] [address] [place], [place] [id number]. Sarah Church EGFR-NON AF CONGOLESE >60 Normal >=60 [facility] Comment on above: Performed By: #### L IPID, CMP ####[facility] [address] [address]Dr. Sarah Church Globulin (S) [Mass/Vol] 3.9 g/dL Normal [facility] Comment on above: Performed By: #### L IPID, CMP ####[facility] [address] [address]Dr. Sarah Church Glucose [Mass/Vol] 218 mg/dL Critically high 74-106 T [facility] Comment on above: Performed By: #### L IPID, CMP ####[facility] [address] [place], [place] [address]Dr. Sarah Church Potassium [Moles/Vol] 4.3 mmol/L Normal 3.5-5.1 [facility] Comment on above: Performed By: #### L IPID, CMP ####[facility] [address] [place], [place] [address]Dr. Sarah Church Protein [Mass/Vol] 7.4 g/dL Normal 6.4-8.2 [facility] Comment on above: Performed By: #### L IPID, CMP ####[facility] [address] [place], [place] [address]Dr. Sarah Church Sodium [Moles/Vol] 143 mmol/L Normal 136-145 [facility] Comment on above: Performed By: #### L IPID, CMP ####[facility] [address] [place], [place] [address]Dr. Sarah Church Urea nitrogen [Mass/Vol] 14.0 mg/dL Normal 7.0-18.0 [facility] Comment on above: Performed By: #### L IPID, CMP ####[facility] [address] [place], [place] [address]Dr. Sarah Church Urea nitrogen/Creatinine [Mass ratio] 17.2 mg/mg Normal [facility] Comment on above: Performed By: #### L IPID, CMP ####[facility] [address] [place], [place] [address]Uw. Sarah Church Vital Signs Date Time Vital Sign Value Performing Clinician Facility 04-15-2023 11:00-0500 Body height 157.48 cm Shayy Dela Cruz Other [facility] Other 04-15-2023 11:00-0500 Body mass index (BMI) [Ratio] 37.49 kg/m2 Shayy Dela Cruz Other [facility] Other 04-15-2023 11:00-0500 Body weight 92.99 kg Shayy Dela Cruz Other [facility] Other 04-15-2023 11:00-0500 Diastolic blood pressure 84 mm[Hg] Shayy Dela Cruz Other [facility] Other 04-15-2023 11:00-0500 Systolic blood pressure 142 mm[Hg] Shayy Dela Cruz Other [facility] Other 06-22-2022 13:30-0500 Body height 157.48 cm Shayy Dela Cruz Other [facility] Other 06-22-2022 13:30-0500 Body mass index (BMI) [Ratio] 36.94 kg/m2 Shayy Dela Cruz Other [facility] Other 06-22-2022 13:30-0500 Body weight 91.63 kg Shayy Dela Cruz Other [facility] Other 06-22-2022 13:30-0500 Diastolic blood pressure 74 mm[Hg] Shayy Dela Cruz Other [facility] Other 06-22-2022 13:30-0500 SaO2% (BldA) [Mass fraction] 97 % Shayy Dela Cruz Other [facility] Other 06-22-2022 13:30-0500 Systolic blood pressure 112 mm[Hg] Shayy Jose De Jesus Other [facility] Other Encounters Encounter Date Encounter Type Care Provider Facility Start: 04-22-2023 End: 04-22-2023 ambulatory Shayy Jose De Jesus Other [facility] Other Start: 04-22-2023 Telephone encounter Shayy Jose De Jesus [facility] Start: 04-20-2023 End: 04-20-2023 ambulatory Lynne Fitt Other [facility] Other Start: 04-20-2023 Telephone encounter Lynne Fitt [facility] Start: 04-18-2023 End: 04-18-2023 ambulatory Lynne Fitt Other [facility] Other Start: 04-18-2023 Telephone encounter Lynne Austint [facility] Start: 04-15-2023 End: 04-15-2023 ambulatory Shayy Jose De Jesus Other [facility] Other Start: 04-15-2023 Office outpatient visit 15 minutes Shayyjudi Dela Cruz [facility] Start: 04-06-2023 End: 04-06-2023 ambulatory Shayy Dela Cruz Other [facility] Other Start: 04-06-2023 Telephone encounter Shayy Jose De Jesus [facility] Start: 02-25-2023 End: 02-25-2023 ambulatory Shayy Dela Cruz Other [facility] Other Start: 02-25-2023 Telephone encounter Shayy Jose De Jesus [facility] Start: 12-13-2022 End: 12-13-2022 ambulatory [facility] Start: 10-29-2022 End: 10-29-2022 ambulatory Shayy Dela Cruz Other [facility] Other Start: 10-29-2022 Telephone encounter [facility] [facility] Start: 09-20-2022 End: 09-20-2022 ambulatory Shayy Dela Cruz Facility:[facility] Start: 08-27-2022 End: 08-28-[address] SHAYY DELA CRUZ Facility:[facility] Start: 08-10-2022 End: 08-10-2022 ambulatory [facility] Start: 07-20-2022 End: 07-21-[address] SHAYY DELA CRUZ Facility:[facility] Start: 07-19-2022 End: 07-19-2022 ambulatory Shayy Dela Cruz Other [employer] Other Start: 07-19-2022 Telephone encounter Shayy Dela Cruz [facility] Start: 07-12-2022 End: 07-13-[address] SHAYY DELA CRUZ Facility:[facility] Start: 07-05-2022 End: 07-05-2022 ambulatory Shayy Deal Cruz Other [employer] Other Start: 07-05-2022 Telephone encounter Shayy Dela Cruz [facility] Start: 06-28-2022 End: 06-28-2022 ambulatory Shayy Dela Cruz Other [employer] Other Start: 06-28-2022 Telephone encounter Shayy Dela Cruz [facility] Start: 06-22-2022 End: 06-22-2022 ambulatory Shayy Dela Cruz Other [employer] Other Start: 06-22-2022 Office outpatient visit 15 minutes Shayy Dela Cruz [facility] Start: 05-27-2022 End: 05-27-2022 ambulatory Shayy Dela Cruz Other [employer] Other Start: 05-27-2022 Telephone encounter Shayy Dela Cruz [facility] Start: 05-19-2022 End: 05-20-[address] SHAYY [...] Start: 05-10-2017 End: 05-11-2017 Ambulatory DEFAULT PHYSICIAN Facility:[facility] Start: 05-05-2017 End: 05-06-2017 Ambulatory DEFAULT PHYSICIAN Facility:[facility] Procedures Date Procedure Procedure Detail Performing Clinician Start: 12-13-2022 Follow-up visit Follow-up MARQUES MOROCHO Immunizations Immunization Date Immunization Notes Care Provider Fa cili 02-01-2022 influenza virus vaccine, split virus (incl. purified surface antigen) Shayy Dela Cruz Other [employer] Other Payers Date Payer Category Payer Self-pay 2021 Medicaid [id number] 2017 Unknown [id number] 1972 Unknown [id number] 2..84 [id number] 1972 Unknown [id number] 2.16.84 [id number] 1972 Unknown [id number] .16.84 0.1.524275.3.579.2.593 1972 Unknown [id number] 2.16.84 0.1.859854.3.579.2.59 1972 Unknown [id number] 2.16.84 0.1.932140.3.579.2.593 1972 Unknown [id number] 2.16.84 0.1.819483.3.579.2.593 1972 Unknown [id number] 2.16.84 0.1.316880.3.579.2.593 1972 Unknown [id number] 2.16.84 0.1.071707.3.579.2.593 1972 Unknown [id number] 2.16.84 0.1.056108.3.579.2.593 1957 Medicaid [id number] 2. [id number] 1957 Medicare [id number] 2. [id number] Unknown Unknown [id number] 2.16.8 [id number] Social History Date Type Detail Facility Unknown if ever smoked [employer] Other Sex Assigned At Sex Assigned At Bir th [employer] Other Medical Equipment Procedure Code Equipment Code [...] and discussed healthy diet in meantime. 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 Mitral V (more content not included)...[facility] 08-10-2022 NoteCardiology Clinic Note Subjective Zoila Ramos [...] Active Problem List Diagnosis Coronary arteriosclerosis in [place] artery Old myocardial infarction Sinusitis Type 1 [...] in size. The (more content not included)... [facility]02-21-2023 Evaluation note* Encounter Date Diagnosis Assessment Notes Treatment Notes Treatment Clinical Notes Jun, Acute non-recurrent maxillary sinusitis (ICD-10 - J01.00) Jun, Controlled type 2 diabetes mellitus with hyperglycemia, unspecified whether residential insulin use (ICD-10 - E11.65) Once again advised management at diabetes clinic. She declines and will continue meds, followup in 3 months, and recheck labs at that time. She is eating more of a keto diet and is certain that is helping her A1C improve. Jun, Screening mammogram for breast cancer (ICD-10 - Z12.31) Zoila will call for an appt [facility] Other 01-31-2023 NoteIn light of elevated LDL will change simvastatin to lipitor 40 mg daily. Will repeat liver function and lipid level in 2 months. Staff to notify pt. Malcolm Evans NP Division of Cardiology, [facility]- [phone] Pager- [phone] Email- [email or web address] NotePatient here for 1 year follow up [...] light-headedness. All other systems reviewed and are negative.[facility] 05-19-2022 NoteUTP CARDIOLOGY PROGRESS NOTE HPI: Zoila [...] past 12 months Assessment/Plan: Coronary arteriosclerosis in [place] artery Coronary artery disease is stable, no [...] week RTC 1 month to review B/P [facility]Un[facility]01-18-2023 Note Hypertension is uncontrolled, Will add lisinopril 5 mg po daily, and continue metoprolol Goal b/p 130/80 or less, monitor for dry persistent cough- call office for any concerns, repeat BMP in 1 week RTC 1 month to review B/P [facility]01-18-2023 Note Coronary artery disease is stable, no concerning symptoms continue risk factor modifications- heart healthy diet, regular exercise as tolerated and continue all medications.[facility] 04-15-2022 NotePROCEDURE: XR FOOT LT MIN 3 [...] Electronically authenticated by: NARINDER LAN Date: 2022-04-15 06:08[facility]09-12-2022 NotePROCEDURE: XR TOES RT MIN 2 V HISTORY: Pain of toe of right foot ; first toe pain following injury COMPARISON: None. FINDINGS: BONES:No fracture, acute abnormality, or significant arthropathy. SOFT TISSUES:No visible soft tissue swelling. EFFUSION:None visible. OTHER: Negative. IMPRESSION: 1. No acute bone abnormality. 2. Mild degenerative joint disease. 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 Medical History Controlled type 2 di abetes mellitus with hyperglycemia, unspecified whether residential insulin use Medical History Obesity Medical History Dyslipidemia Medical History CAD in [place] artery Medical History Asthma, intermittent Medical History [...] History appendectomy Surgical History 7 stents 1999 [employer] Other History general Narrative - Reported* Type Description Date Medical History Herpes labialis Medical History Candidiasis of mouth Medical History Type 2 diabetes holli itus with diabetic polyneuropathy, unspecified whether residential insulin use Medical History Controlled type 2 di abetes mellitus with hyperglycemia, unspecified whether residential insulin use Medical History Obesity Medical History Dyslipidemia Medical History CAD in [place] artery Medical History Asthma, intermittent Medical History [...] stents 1999 Hospitalization History see surgical history [employer] Other Summary Purpose Family History No Family [...] itus with hyperglycemia (E11.65) Referral Organization [facility] Referring Provider First Name Shayy Referring Provider Last Name Jose De Jesus Referring Provider Specialty [facility] cine Referred Organization [facility] Referred Provider Marcia Mendes Referred Address [address],[place], [place],[address] Referred Provider Specialty Nurse Huey saldaña Referral Priority Routine General Notes Heather Jenkins 01:25:59 PM >received today, notes locked, insurance attached, referral faxed Additional Source Comments INFORMATION SOURCE (unrecogn ized section and content) DATE CREATED AUTHOR 10/25/2017 [facility] DATE CREATED AUTHOR AUTHOR'S ORGANIZ ATION 09/03/2022 [facility] DATE CREATED AUTHOR AUTHOR'S ORGANIZ ATION 10/10/2022 [facility] DATE CREATED AUTHOR AUTHOR'S ORGANIZ ATION 12/13/2022 [facility] REASON FOR VISIT (unrecogniz ed section and content) labsmessage3 MONTH FOLLOW UP ACrefillmessagemessageRefill3 month Follow upDM [id number] Referralrefills FOR RECORDS PERTAINING TO PATIENTS WHO [...] BE BASED ON THE PRIMARY CLINICAL RECORDS. [employer] provides no warranty or guarantee of the accuracy or completeness of information in this document.
== END 2023-05-11 15:53 | disposition left against medical advice (07) ==
PROVIDERS: Emergency Provider Emergency Medicine Emergency Medical Services; PCP Family Medicine
DX: Z53.21 Procedure and treatment not carried out due to patient leaving prior to being seen by health care provider (principal)

== ENCOUNTER 2023-05-23 09:56 | Outpatient (OUT) | payer MEDICARE, MEDICAID, SELFPAY ==
--- NOTE | 2023-05-23 | XR_ITS ---
The [place] [id number] Patient Name: COLETTE DINH MRN: [id number] date: 1970 Sex: F Assigned Patient Location: [facility] Current Patient Location: RAD Accession/Order Number: [id number] Exam Date: 05/23/2023 10:05 Report Date: 05/23/2023 10:27 At the request of: COLTEN ENCARNACION Procedure: XR wrist RT min 3V PROCEDURE: XR wrist RT min 3V COMPARISON: 05/06/2023 HISTORY: RIGHT WRIST PAIN FINDINGS: BONES:Increase in lytic changes of the distal ulna consistent with a healing fracture. Distal radius appears intact. Mild degenerative changes SOFT TISSUES:Negative. No visible soft tissue swelling. EFFUSION:None visible. OTHER: Overlying fiberglass cast obscures bone detail XR/XR wrist RT min 3V IMPRESSION: Stable distal ulnar fracture with lytic phase of healing Electronically authenticated by: JOHN JAVED Date: 05/23/2023 10:27
== END 2023-05-23 09:57 | disposition home or self-care (01) ==
LOC: RAD 09:56
PROVIDERS: PCP Family Medicine; Visit Provider Orthopaedic Surgery
DX: S52.691D Other fracture of lower end of right ulna, subsequent encounter for closed fracture with routine healing (principal)
CPT/HCPCS: 73110

== ENCOUNTER 2023-06-20 09:58 | Outpatient (OUT) | payer MEDICARE, MEDICAID, SELFPAY ==
--- NOTE | 2023-06-20 | XR_ITS ---
The [address] [address] Patient Name: COLETTE DINH MRN: [id number] date: 1970 Sex: F Assigned Patient Location: Current Patient Location: Accession/Order Number: [id number] Exam Date: 06/20/2023 11:00 Report Date: 06/20/2023 13:51 At the request of: COLTEN ENCARNACION Procedure: XR wrist RT min 3V EXAM: XR wrist RT min 3V HISTORY: RIGHT WRIST PAIN COMPARISON: 05/23/2023 TECHNIQUE: 3 views of the right wrist were obtained. FINDINGS: The circular cast has been removed. There is a comminuted fracture involving the distal ulnar metaphysis, with additional fracture lines now visible, primarily related to demineralization. Healing is incomplete. There is no other evidence of an acute fracture or dislocation. Increasing osteopenia is noted. Arteriovascular calcifications are seen in the wrist. XR/XR wrist RT min 3V IMPRESSION: The circular cast has been removed. The mineralization secondary to disuse has revealed multiple additional fracture lines involve a the distal ulna, and the fracture lines remain visible. There is no other evidence of an acute fracture or dislocation. Electronically authenticated by: JORDYN PAIGE Date: 06/20/2023 13:51
--- OUTSIDE RECORDS SUMMARY | 2023-06-20 10:02 | XMS_ITS | CCD ---
Author Name Unknown Address [address] [place] [address] Organization [facility] Care Team Providers Care Customer Service Associate Name Role Phone PHYSICIAN, DEFAULT Unavailable Unavailable PHYSICIAN, DEFAULT Unavailable Unavailable MATT MIDDLETON Unavailable Unavailable PHYSICIAN, DEFAULT Unavailable Unavailable PHYSICIAN, DEFAULT Unavailable Unavailable MATT MIDDLETON Unavailable Unavailable Shayy Dela Cruz Unavailable JOSE DE JESUS, DR SHAYY Delgado Primary Care Unavailable MALCOLM EVANS Consulting Unavailable MALCOLM EVANS Attending Unavailable MALCOLM EVANS Admitting Unavailable JOSE DE JESUS, DR SHAYY Delgado Consulting Unavailable DELA CRUZ, DR SHAYY Delgado Attending Unavailable DELA CRUZ, DR SHAYY Delgado Admitting Unavailable DELA CRUZ, DR SHAYY Delgado Primary Care Unavailable DANIEL, JORDYN Ayon Attending Unavailable JORDYN SANCHEZ Admitting Unavailable Narinder Lan Consulting Unavailable JOSE DE JESUS, DR SHAYY Delgado Primary Care Unavailable JORDYN SANCHEZ Consulting Unavailable JOSE DE JESUS, DR SHAYY Delgado Primary Care Unavailable MARKER ., DR FOWLER Attending Unavailable GRECHNY ., SHAY CESPEDES Consulting Unavailjia delgado MARKER ., DR FOWLER Admitting Unavailable JAVAD ROB Consulting Unavailable HAY ., DR CARPIO Consulting Unavailable HAY ., DR CARPIO Attending Unavailable DELA CRUZ, DR SHAYY Delgado Primary Care Unavailable HAY ., DR CARPIO Admitting Unavailable DELA CRUZ, DR SHAYY Delgado Attending Unavailable DELA CRUZ, DR SHAYY Delgado Admitting Unavailable Narinder Lan Consulting Unavailable JOSE DE JESUS, DR SHAYY Delgado Primary Care Unavailable JOSE DE JESUS, DR SHAYY Delgado Consulting Unavailable JOSE DE JESUS, DR SHAYY Delgado Consulting Unavailable DELA CRUZ, DR SHAYY Delgado Attending Unavailable DELA CRUZ, DR SHAYY Delgado Admitting Unavailable DELA CRUZ, DR SHAYY Delgado Primary Care Unavailable JOSE DE JESUS, DR SHAYY Delgado Primary Care Unavailable MISC, DR IVERSON Consulting Unavailable MISC, DR IVERSON Attending Unavailable MISC, DR IVERSON Admitting Unavailable DELA CRUZ, DR SHAYY Delgado Attending Unavailable DELA CRUZ, DR SHAYY Delgado Admitting Unavailable JOSE DE JESUS, DR SHAYY Delgado Primary Care Unavailable Narinder Lan Consulting Unavailable JOSE DE JESUS, DR SHAYY Delgado Consulting Unavailable MARQUES MOROCHO Attending Unavailable CHRISTEN BENITES Attending Unavailable MALCOLM EVANS Attending Unavailable AustinLynne crook Unavailable Cathie Vargas Unavailable MD Shayy Dela Cruz Primary Care Provider [phone] MD Shayy Dela Cruz Attending Provider [phone] Shayy Dela Cruz Admitting Unavailable Shayy Dela Cruz Attending Unavailable Brittani Collier Admitting Unavailable Brittani Collier Attending Unavailable Shayy Dela Cruz Primary Care Unavailable Shayy Dela Cruz Admitting Unavailable Shayy Dela Cruz Primary Care Unavailable Shayy Dela Cruz Attending Unavailable Allergies Allergy Classification Reported Allergen(s) Allergy Type Date of Onset Reaction(s) Facility (1 source) codeine Drug Allergy 9 [facility] Repository (4 sources) Latex; Translations: [LATEX] Drug allergy (disorder) 9 sores on skin [facility] Repository (20 sources) Codeine; Translations: [CODEINE] Drug Allergy 0 nausea [facility] Repository (18 sources) Latex Drug allergy sores on skin [facility] Other (1 source) Codeine Drug Allergy [facility] Repository (1 source) atorvastatin; Translations: [ATORVASTATIN] Drug Allergy 3 [facility] Repository (1 source) Codeine Drug Allergy 4 [facility] Repository (1 source) Latex Drug allergy (disorder) 4 [facility] Repository Medications Current Medications Medication Drug Class(es) Dates Sig (Normalized) Sig (Original) [id number] 60 actuat albuterol 0.09 mg/actuat metered dose inhaler (20 sources) beta2-Adrenergic Agonist take 2 puff(s) by inhalation every four hours as needed Albuterol Sulfate HFA 108 (90 Base) MCG/ACT INHALE 2 PUFFS EVERY 4 HOURS NEEDED for 17 Active ProAir HFA Not-T aking/PRN take 2 puff(s) by in halation every four hours as needed Albuterol Sulfate HFA 108 (90 Base) MCG/ ACT INHALE 2 PUFFS EVERY 4 HOURS NEEDED for 17 Active ProAir HFA Activ e Albuterol Sulfate 108 (90 Base) MCG/ACT (6 sources) take 1 puff(s) by inhalation every four hours as needed Albuterol Sulfate 108 (90 Base) MCG/ACT 1 puff as needed Inhalation every 4 hrs Active Alcohol Swabs - (5 sources) Alcohol Swabs - as directed Active Aspir-81 (12 sources) Aspir-81 Active aspirin 81 mg delayed release oral tablet (4 sources) Platelet Aggregation Inhibitor, Nonsteroidal Anti-inflammatory Drug take 1 tablet by mouth every twenty-four hours Aspirin Adult Low Dose 81 MG 1 tablet Orally Once a day Active atorvastatin 40 mg oral tablet (5 sources) HMG-CoA Reductase Inhibitor Start: take 1 tablet by mouth every twenty-four hours Atorvastatin Calcium 40 MG 1 tablet Orally Once a day for 90 days May, Active carvedilol 6.25 mg oral tablet (11 sources) alpha-Adrenergic Petty, beta-Adrenergic Petty take 1 tablet by mouth every twenty-four hours Carvedilol 6.25 MG 1 tablet with food Orally once a day for 90 days Active cetirizine hydrochloride 10 mg oral tablet (12 sources) Histamine-1 Receptor Antagonist take 1 tablet by mouth every twenty-four hours ZyrTEC Allergy 10 MG 1 tablet Orally Once a day Active Dexcom G7 Buggy Ladle Tender - (4 sources) Start: Dexcom G7 Buggy Ladle Tender - as directed as directed 4 x daily for 365 days E 11.65, Z 79.4 Jun, Active Dexcom G7 Sensor - (4 sources) Start: Dexcom G7 Sensor - as directed in vitro every 10 days for 90 days E 11.65, Z79.4 Jun, Active esomeprazole 40 mg delayed release oral capsule (18 sources) Proton Pump Inhibitor take 1 capsule by mouth once daily Esomeprazole Magnesium 40 mg TAKE ONE CAPSULE BY MOUTH DAILY 90 for 90 Active 120 actuat fluticasone propionate 0.11 mg/actuat metered dose inhaler (20 sources) Corticosteroid take 2 puff(s) by [...] each nostril Nasally Once a day Active FreeStyle Amrik 3 Strong - (3 sources) Start: 06-06-2023 FreeStyle Libr e 3 Strong - as directed invitro 4 times daily for 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 Jun, Active FreeStyle Amrik 3 Sensor - (3 sources) Start: 06-06-2023 FreeStyle Libr e 3 Sensor - as directed invitro change every 14 days for 84 days Dx E11.65 Jun, Active glipiZIDE 10 mg oral tablet (18 sources) Sulfonylurea glipiZIDE 10 mg take 1 tablet twice daily with meals Active take 2 tablets by mouth twice da natalio glipiZIDE 10 mg TAKE 2 (TWO) TABLET BY MOUTH TWO TIMES DAILY for 90 Active hydroCHLOROthiazide 12.5 mg oral capsule (7 sources) Thiazide Diuretic take 1 capsule by mouth every twenty-four hours hydroCHLOROthiazide 12.5 MG 1 capsule in the morning Orally Once a day Active 1.5 ml insulin glargine 300 unt/ml pen injector (18 sources) Insulin Analog Toujeo SoloStar 300 UNIT/ML 78 u Subcutaneous daily for 90 days Active Toujeo SoloStar 300 UNIT/ML 75 Units q am 80 Units q PM 75 U q am , 80 U q pm for 90 days Active Toujeo SoloStar 300 UNIT/ML INJECT 75U UNDER SKIN TWICE DAILY for 79 Active 3 ml insulin lispro 100 unt/ ml pen injector (20 sources) Insulin Analog HumaLOG KwikPen 100 UNIT/ML ISS 1:10 and ICF 1:5 Subcutaneous 4 x daily for 90 days Expect up to 120 u per day Active isopropyl alcohol 0.7 ml/ml medicated pad (13 sources) Alcohol Swabs - as directed 4 times a day for 30 days Active Alcohol Swabs - as directed Active losartan potassium 25 mg oral tablet (18 sources) Angiotensin 2 Receptor Petty take 1 tablet by mouth every twenty-four hours Losartan Potassium 25 MG 1 tablet Orally Once a day Active metFORMIN hydrochloride 1000 mg oral tablet (18 sources) Biguanide take 1 tablet by mouth every twenty-four hours metFORMIN HCl 1000 mg 1 tablet with a meal Orally Once a day Active take 1 tablet by mouth twice johnathon ly metFORMIN HCl 1000 mg TAKE 1 (ONE) TABLET BY MOUTH TWO TIMES DAILY for 90 Active metoprolol tartrate 25 mg oral tablet (12 sources) beta-Adrenergic Petty take 1 tablet by mouth every twelve hours Metoprolol Tartrate 25 MG 1 tablet with food Orally Twice a day Active montelukast 10 mg oral tablet (18 sources) Leukotriene Receptor Antagonist take 1 tablet by mouth every twenty-four hours Singulair 10 MG 1 tablet Orally Once a day Active Nitro Sublingual 0.4 0.4mg (20 sources) Nitro Sublingual 0.4 0.4mg 1 Sublingual Tablet As Needed for 30 days Not-Taking/PRN Nitro Sublingual 0.4 0.4mg 1 Sublingual Tablet As Needed for 30 days Active Nitro Sublingual 0.4 0.4mg 1 Sublingual Every 5min x3 for 30 days Active Nitro Sublingual 0.4 0.4mg 1 Sublingual Every 5min x3 Active OneTouch Verio - (12 sources) OneTouch Verio - USE ONE STRIP FOUR TIMES A DAY Active OneTouch Verio - USE ONE STRIP FOUR TIMES A DAY for 30 days Active OneTouch Verio - USE ONE STRIP FOUR TIMES A DAY for 30 Active Completed/Discontinued Medications Medication Drug Class(es) Dates Sig (Normalized) Sig (Original) azithromycin 250 mg oral tablet (18 sources) Macrolide Antimicrobial Start: 06-22-2022 Azithromycin 250 MG as directed Orally 2 tabs po today, then 1 tab daily x 4 more days for 5 Jun, Not-Taking/PRN simvastatin 20 mg oral tablet (18 sources) HMG-CoA Reductase Inhibitor take 1 tablet by mouth every twenty-four hours Simvastatin 20 MG 1 tablet in the evening Orally Once a day Not-Taking/PRN tiZANidine 4 mg oral tablet (18 sources) Central alpha-2 Adrenergic Agonist take 1 tablet by mouth every eight hours tiZANidine HCl 4 MG 1 tablet as needed Orally Three times a day Not-Taking/PRN Problems Active Problems Problem Classification Problem Date Documented Date Episodic/Chronic Acquired foot deformities (18 sources) Acquired deformity of toe of left foot; Translations: [Acquired deformities of toe(s), unspecified, left foot] Episodic Acquired foot deformities (18 sources) Acquired deformity of toe; Translations: [Acquired deformities of toe(s), unspecified, right foot] Episodic Administrative/social admission (1 source) Dietary counseling and surveillance Episodic Asthma (19 sources) Intermittent asthma; Translations: [Mild intermittent asthma, uncomplicated] Onset: 11-09-2021 Chronic Coronary atherosclerosis and other heart disease (20 sources) Atherosclerosis of coronary artery without angina pectoris; Translations: [Atherosclerotic heart disease of [place] coronary artery without angina pectoris] Onset: 03-24-2022 Chronic Diabetes mellitus with complications (20 sources) Hyperglycemia due to type 2 diabetes mellitus; Translations: [Type 2 diabetes mellitus with hyperglycemia] Onset: 05-19-2022 Chronic Diabetes mellitus without complication (2 sources) Type 2 diabetes mellitus without complications; Translations: [TYPE 2 DM WITHOUT COMPLICATIONS] Onset: 04-08-2022 Chronic Disorders of lipid metabolism (20 sources) Dyslipidemia; Translations: [Hyperlipidemia, unspecified] Onset: 11-09-2021 Chronic Esophageal disorders (19 sources) Gastroesophageal reflux disease; Translations: [Gastro-esophageal reflux disease without esophagitis] Onset: 11-09-2021 Chronic Essential hypertension (8 sources) Essential (primary) hypertension; Translations: [Hypertensive disorder] Onset: 05-19-2022 Chronic Mycoses (18 sources) Candidiasis of mouth; Translations: [Candidal stomatitis] Episodic Nutritional deficiencies (5 sources) Vitamin D deficiency; Translations: [Vitamin D deficiency, unspecified] Chronic Osteoarthritis (1 source) Unspecified osteoarthritis, unspecified site; Translations: [UNSPECIFIED OSTEOARTHRITIS UNS SITE] Onset: 11-09-2021 Chronic Other aftercare (4 sources) 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; Translations: [[facility] CURRENT USE OF INSULIN] Onset: 04-08-2022 Episodic Other aftercare (15 sources) Long-term current use of insulin; Translations: [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] Episodic Other connective tissue disease (20 sources) Pain in limb; Translations: [Pain in right toe(s)] Episodic Other connective tissue disease (5 sources) Pain in left foot; Translations: [PAIN IN LEFT FOOT] Onset: 04-14-2022 Episodic Other connective tissue disease (6 sources) Pain in right toe(s); Translations: [PAIN IN RIGHT TOES] Onset: 01-11-2022 Episodic Other non-traumatic joint disorders (5 sources) Shoulder pain; Translations: [Pain in left shoulder] Episodic Other non-traumatic joint disorders (13 sources) Pain in left shoulder; Translations: [Left shoulder pain] Episodic Other nutritional; endocrine; and metabolic disorders (18 sources) Obesity; Translations: [Obesity, unspecified] Chronic Other nutritional; endocrine; and metabolic disorders (3 sources) Obese class II; Translations: [Body mass index (BMI) 37.0-37.9, adult] Chronic Other nutritional; endocrine; and metabolic disorders (2 sources) Body mass index (BMI) 37.0-37.9, adult; Translations: [BMI 37.0-37.9, adult] Chronic Other screening for suspected conditions (not mental disorders or infectious disease) (5 sources) Encounter for screening mammogram for malignant neoplasm of breast; Translations: [ENC SCR MAMMO MALIG NEOPLASM BREAST] Onset: 07-20-2022 Episodic Other upper respiratory infections (1 source) Acute maxillary sinusitis, unspecified Episodic Spondylosis; intervertebral disc disorders; other back problems (18 sources) Pain in thoracic spine; Translations: [Pain in thoracic spine] Episodic Unclassified (1 source) Encounter for screening for malignant neoplasm of cervix; Translations: [Encounter for screening for malignant neoplasm of cervix] Onset: 09-20-2022 Viral infection (18 sources) Herpes labialis; Translations: [Herpesviral vesicular dermatitis] [...] Onset: 04-08-2022 Episodic Other aftercare (1 source) [facility] (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; Translations: [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 CURRENT USE OF ASPIRIN] Onset: 04-08-2022 Episodic Other aftercare (1 source) 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 of oral hypoglycemic drugs; Translations: [[facility] USE ORAL HYPOGLYCEMIC DX] Onset: 04-08-2022 Episodic Other aftercare (1 source) Other joint terminal attack controller (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 therapy; Translations: [OTH 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 CURRENT DRUG THERAPY] Onset: 11-09-2021 Episodic Other non-traumatic joint disorders (4 sources) [...] Test Name Value Interpretation Reference Range Facility Glucose - FINGER STICKon Glucose [Mass/Vol] 360 mg/dL [facility] Other Office Visiton 12-13-2022 Follow-up visit [id number] Arlette Ramos 1970 F Date Provider Department Center 12/13/2022 [facility]8-MARQUES MOROCHO CARD [facility] No family history on file Level of Service:07066 [place] OFFICE/OUTPATIENT ESTABLISHED LOW MDM 20-29 MIN Reason for Visit and Comments: Follow-up [412648] - 4 mo follow up Normal [facility] IGP,Aptima HPV,Age Gdlnon PAP HPV Aptima Negative Normal Negative [facility] Comment on above: Order Comment: COLLE CTION TECHNIQUE:: BROOM-ALONE GYNOCOLOGICAL BODY SITE:: CERVIX ENDOCERVIX Result Comment: This nucleic acid amplification test detects fourteen high- risk HPV types (16,18,31,33,35,39,45,51,52,56,58,59,66,68) without differentiation. PERFORMED BY: [facility] [place] [address] PATHOLOGIST BIOLOGY LECTURER RUBINA RICCI M.D. Performed By: #### P AP [id number] #### [facility] , Pap Image Guided Note Normal . [facility] Comment on above: Order Comment: COLLE CTGEO TECHNIQUE:: BROOM-ALONE GYNOCOLOGICAL BODY SITE:: CERVIX ENDOCERVIX Result Comment: TEST S RESULT FLAG UNITS REF RANGE LAB Clinician Provided Cytology Information Source.............Cervix;Endocervix No. of containers..01 ThinPrep Vial Age Algo ACOG Joie... 01 FLAG LEGEND: L-Low Normal,H-High Normal,LL-Alert Low,HH-Alert High <-Panic Low,>-Panic High,A-Abnormal,AA-Critical Abnormal Performed at: 01 =G Dary Torrez [address] [place] [address] [place] [address] Christina Burden MD, Performed By: #### P AP [id number] #### [facility] , Result Comment: TEST S RESULT FLAG UNITS REF RANGE LAB DIAGNOSIS: 02 NEGATIVE FOR INTRAEPITHELIAL LESION OR MALIGNANCY. CELLULAR CHANGES ASSOCIATED WITH ATROPHY ARE PRESENT. Specimen adequacy: 02 Satisfactory for evaluation. Endocervical component may not be distinguished in cases of atrophy. Performed by: 02 [employer] ([facility]) . 02 Note: Note 02 The Pap [...] <-Panic Low,>-Panic High,A-Abnormal,AA-Critical Abnormal Performed at: [address] [facility] [address] Christina Burden MD, CBC AUTO DIFFon 08-27-2022 BASO # 0.0 103/ul Normal 0.0-0.1 [facility] Comment on above: Performed By: #### C BC #### [facility] Laboratory [address] [address] [address] Sarah Church Basophils/100 WBC (Bld) 0.5 % Normal 0.2-2.0 [facility] Comment on above: Performed By: #### C BC #### [facility] [address] [address] [address] Sarah Church EO # 0.2 103/ul Normal 0.0-0.7 [facility] Comment on above: Performed By: #### C BC #### [facility] [address] [place] [address] Dr. Sarah Church Eosinophils/100 WBC (Bld) 2.2 % Normal 0.9-7.0 [facility] Comment on above: Performed By: #### C BC #### [facility] [address] [place] [address] Dr. Sarah Church Erythrocyte distribution width (RBC) [Ratio] 12.5 % Normal 11.0-15.0 [facility] Comment on above: Performed By: #### C BC #### [facility] [address] [place] [address] Dr. Sarah Church Hematocrit (Bld) [Volume fraction] 44.1 % Normal 36.0-48.0 [facility] Comment on above: Performed By: #### C BC #### [facility] [address] [place] [address] Dr. Sarah Church Hemoglobin (Bld) [Mass/Vol] 15.1 g/dL Normal 12.0-16.0 [facility] Comment on above: Performed By: #### C BC #### [facility] [address] [place] [address] Dr. Sarah Church IG # 0.02 10e3/ul Normal 0.00-0.03 [facility] Comment on above: Performed By: #### C BC #### [facility] [address] [place] [address] Dr. Sarah Church IG % 0.2 % Normal 0.0-0.5 [facility] Comment on above: Performed By: #### C BC #### [facility] [address] [place] [address] Dr. Sarah Church LYMPH # 2.9 103/ul Normal 1.2-3.8 [facility] Comment on above: Performed By: #### C BC #### [facility] [address] [place] [address] Dr. Sarah Church Lymphocytes/100 WBC (Bld) 33.4 % Normal 20.5-60.0 [facility] Comment on above: Performed By: #### C BC #### [facility] [address] [place] [address] Dr. Sarah Church MANUAL DIFF REQ NO Normal [facility] Comment on above: Performed By: #### C BC #### [facility] [address] [place] [address] Dr. Sarah Church MCH (RBC) [Entitic mass] 29.1 pg Normal 26.7-34.0 [facility] Comment on above: Performed By: #### C BC #### [facility] [address] [place] [address] Dr. Sarah Church MCHC (RBC) [Mass/Vol] 34.2 g/dL Normal 29.9-35.2 [facility] Comment on above: Performed By: #### C BC #### [facility] [address] [place] [address] Dr. Sarah Church MCV (RBC) [Entitic vol] 85.0 fL Normal 81.0-99.0 [facility] Comment on above: Performed By: #### C BC #### [facility] [address] [place] [address] Dr. Sarah Church MONO # 0.6 103/ul Normal 0.3-0.8 [facility] Comment on above: Performed By: #### C BC #### [facility] [address] [place] [address] Dr. Sarah Church Monocytes/100 WBC (Bld) 6.8 % Normal 1.7-12.0 [facility] Comment on above: Performed By: #### C BC #### [facility] [address] [place] [address] Dr. Sarah Church NEUT # 4.9 103/ul Normal 1.4-6.5 [facility] Comment on above: Performed By: #### C BC #### [facility] [address] [place] [address] Dr. Sarah Church Neutrophils/100 WBC (Bld) 56.9 % Normal 43.0-75.0 [facility] Comment on above: Performed By: #### C BC #### [facility] [address] [place] [address] Dr. Sarah Church Platelet mean volume (Bld) [Entitic vol] 10.8 fL Normal 9.5-13.5 [facility] Comment on above: Performed By: #### C BC #### [facility] [address] [place] [address] Dr. Sarah Church PLT 276 103/ul Normal 150-450 [facility] Comment on above: Performed By: #### C BC #### [facility] [address] [place] [address] Dr. Sarah Church RBC 5.19 106/ul Normal 4.20-5.40 [facility] Comment on above: Performed By: #### C BC #### [facility] [address] [place] [address] Dr. Sarah Church WBC 8.6 103/ul Normal 4.0-11.0 [facility] Comment on above: Performed By: #### C BC #### [facility] [address] [place] [address] Dr. Sarah Church LIPID PROFILEon 08-27-2022 CHOL-HDL RATIO NORM SEE BELOW Normal [facility] Comment on above: Result Comment: 3.3 - 4.4 LOW RISK 4.4 - 7.1 AVERAGE RISK 7.1 - 11.0 MODERATE RISK >11.0 HIGH RISK Performed By: #### L IPID, CMP #### [facility] [address] [place] [address] Dr. Sarah Church Cholesterol [Mass/Vol] 110 mg/dL Normal <=200 [facility] Comment on above: Performed By: #### L IPID, CMP #### [facility] [address] [place] [address] Dr. Sarah Church Cholesterol in HDL [Mass/Vol] 33 mg/dL Critically low 40-60 [facility] Comment on above: Performed By: #### L IPID, CMP #### [facility] [address] [address] [address] Sarah Church Cholesterol in LDL [Mass/Vol] 58.0 mg/dL Normal [facility] Comment on above: Performed By: #### L IPID, CMP #### [facility] [address] [address] [address] Sarah Church Cholesterol.total/C holesterol in HDL [Mass ratio] 3.3 {ratio} Normal [facility] Comment on above: Performed By: #### L IPID, CMP #### [facility] [address] [address] [address] Sarah Church HDL NORMAL > or = 60 mg/dl - LO W CARDIOVASCULAR RISK <40 mg/dl - HIGH CARDIOVASCULAR RISK Normal [facility] Comment on above: Performed By: #### L IPID, CMP #### [facility] [address] [place] [address] Dr. Sarah Church LDL CALC NORMAL SEE BELOW Normal [place] Comment on above: Result Comment: <100 mg/dl OPTIMAL 100 - 129 mg/dl NEAR OR ABOVE OPTIMAL 130 - 159 mg/dl BORDERLINE HIGH 160 - 189 mg/dl HIGH >190 mg/dl VERY HIGH Performed By: #### L IPID, CMP #### [facility] [address] [place] [address] Dr. Sarah Church Triglyceride [Mass/Vol] 95 mg/dL Normal <=150 [facility] Comment on above: Performed By: #### L IPID, CMP #### [facility] [address] [address] [address] Sarah Church VLDL CALC 19.0 mg/dL Normal [facility] Comment on above: Performed By: #### L IPID, CMP #### [facility] [address] [place] [address] Dr. Sarah Church PROF 14(COMP METB)on 023 Albumin [Mass/Vol] 3.3 g/dL Critically low 3.4-5.0 [facility] Comment on above: Performed By: #### L IPID, CMP #### [facility] [address] [address] [address] Sarah Church Albumin/Globulin [Mass ratio] 0.8 {ratio} Normal [facility] Comment on above: Performed By: #### L IPID, CMP #### [facility] [address] [address] [address] Sarah Church ALP [Catalytic activity/Vol] 100 U/L Normal 46-116 [facility] Comment on above: Performed By: #### L IPID, CMP #### [facility] [address] [address] [address] Sarah Church ALT [Catalytic activity/Vol] 74 U/L Critically high 14-59 [facility] Comment on above: Performed By: #### L IPID, CMP #### [facility] [address] [address] [address] Sarah Church Anion gap [Moles/Vol] 13.2 mmol/L Normal [facility] Comment on above: Performed By: #### L IPID, CMP #### [facility] [address] [address] [address] Sarah Church AST [Catalytic activity/Vol] 42 U/L Critically high 15-37 [facility] Comment on above: Performed By: #### L IPID, CMP #### [facility] [address] [address] [address] Sarah Church Bilirubin [Mass/Vol] 0.4 mg/dL Normal 0.2-1.0 [facility] Comment on above: Performed By: #### L IPID, CMP #### [facility] [address] [address] [address] Sarah Church Calcium [Mass/Vol] 9.2 mg/dL Normal 8.5-10.1 [facility] Comment on above: Performed By: #### L IPID, CMP #### [facility] [address] [address] [address] Sarah Church Chloride [Moles/Vol] 99 mmol/L Normal 98-107 [facility] Comment on above: Performed By: #### L IPID, CMP #### [facility] [address] [address] [address] Sarah Church CO2 [Moles/Vol] 30.4 mmol/L Normal 21.0-32.0 [facility] Comment on above: Performed By: #### L IPID, CMP #### [facility] [address] [address] [address] Sarah Church Creatinine [Mass/Vol] 0.78 mg/dL Normal 0.55-1.02 [facility] Comment on above: Performed By: #### L IPID, CMP #### [facility] [address] [address] [address] Sarah Church EGFR-AF MAURITANIAN >60 Normal >=60 [facility] Comment on above: Performed By: #### L IPID, CMP #### [facility] [address] [address] [address] Sarah Church EGFR-NON AF MAURITANIAN >60 Normal >=60 [facility] Comment on above: Performed By: #### L IPID, CMP #### [facility] [address] [address] [address] Sarah Church Globulin (S) [Mass/Vol] 4.0 g/dL Normal [facility] Comment on above: Performed By: #### L IPID, CMP #### [facility] [address] [address] [address] Sarah Church Glucose [Mass/Vol] 255 mg/dL Critically high 74-106 [facility] Comment on above: Performed By: #### L IPID, CMP #### [facility] [address] [address] [address] Sarah Church Potassium [Moles/Vol] 3.6 mmol/L Normal 3.5-5.1 [facility] Comment on above: Performed By: #### L IPID, CMP #### [facility] [address] [address] [address] Sarah Church Protein [Mass/Vol] 7.3 g/dL Normal 6.4-8.2 [facility] Comment on above: Performed By: #### L IPID, CMP #### [facility] [address] [address] [address] Sarah Church Sodium [Moles/Vol] 139 mmol/L Normal 136-145 [facility] Comment on above: Performed By: #### L IPID, CMP #### [facility] [address] [address] [address] Sarah Church Urea nitrogen [Mass/Vol] 8.0 mg/dL Normal 7.0-18.0 [facility] Comment on above: Performed By: #### L IPID, CMP #### [facility] [address] [address] [address] Sarah Church Urea nitrogen/Creatinine [Mass ratio] 10.3 mg/mg Normal [facility] Comment on above: Performed By: #### L IPID, CMP #### [facility] [address] [address] [address] Sarah Church 37on 08-10-2022 37 -Start hydrochlorothiazide 12.5 mg in the morning -Check labs 1 week after starting new medication -Take blood pressure to appointment with Dr. Dela Cruz for correlation [facility] Office Visiton 08-10-2022 Follow-up visit [id number] Richard,Arlettefrancisco Sidhu 1970 F Date Provider Department Center 08/10/2022 [id number] BENITES [facility] No family history on file Level of Service:07236 [place] OFFICE/OUTPATIENT ESTABLISHED MOD MDM 30-39 MIN Reason for Visit and Comments: Coronary Artery Disease [187] Hypertension [777078] Normal [facility] MG MAMM SCREEN 3D ROB CADon 07-20-2022 MG MAMM SCREEN 3D ROB CAD Patient: ZOILA RAMOS Exam Date: 07/20/2022 : 1970 Gender:F Ordering : DR SHAYY DELA CRUZ M.D. Admission #: [id number] Family : Order #: [id number] CLICK HERE TO VIEW EXAM RADIOLOGY REPORT PROCEDURE: MAMMOGRAM SCREENING 3D BILATERAL CAD COMPARISON: MAMMO ROB SCREEN W CAD DIG, 05/16/2012. INDICATIONS: Screening mammography Calculator Name NCI Breast Cancer Risk Assessment Tool 5 Year Breast Cancer Risk 1.20% Lifetime Breast Cancer Risk 10.80% Personal Breast Cancer No Personal Ovarian Cancer No Treatments None Family Cancers None LOCATION: [facility] BREAST COMPOSITION: Almost entirely fatty. FINDINGS: DIAGNOSTIC CATEGORY 1--NEGATIVE. RIGHT BREAST: No significant suspicious finding. No significant change has occurred. LEFT BREAST: No significant suspicious finding. No significant change has occurred. RECOMMENDATIONS: ROUTINE MAMMOGRAM AND CLINICAL EVALUATION IN 12 MONTHS. PLEASE NOTE: A NORMAL MAMMOGRAM DOES NOT EXCLUDE THE POSSIBILITY OF BREAST CANCER. A CLINICALLY SUSPICIOUS PALPABLE LUMP SHOULD BE BIOPSIED. Dictated by: Nrainder Lan M.D. on 07/21/2022 at 08:22 Approved by: Narinder Lan M.D. on 07/21/2022 at 08:24 Normal [facility] PROF CHEM 8 (BAS METB)on Anion gap [Moles/Vol] 14.5 mmol/L Normal [facility] Comment on above: Performed By: #### B MP #### [facility] [address] [address] [address] Sarah Church Calcium [Mass/Vol] 9.8 mg/dL Normal 8.5-10.1 [facility] Comment on above: Performed By: #### B MP #### [facility] [address] [address] [address] Sarah Church Chloride [Moles/Vol] 99 mmol/L Normal 98-107 [facility] Comment on above: Performed By: #### B MP #### [facility] [address] [address] [address] Sarah Church CO2 [Moles/Vol] 27.2 mmol/L Normal 21.0-32.0 [facility] Comment on above: Performed By: #### B MP #### [facility] [address] [address] [address] Sarah Church Creatinine [Mass/Vol] 0.80 mg/dL Normal 0.55-1.02 [facility] Comment on above: Performed By: #### B MP #### [facility] [address] [address] [address] Sarah Chruch EGFR-AF MAURITANIAN >60 Normal >=60 [facility] Comment on above: Performed By: #### B MP #### [facility] [address] [address] [address] Sarah Church EGFR-NON AF MAURITANIAN >60 Normal >=60 [facility] Comment on above: Performed By: #### B MP #### [facility] [address] [id number] Sarah Church Glucose [Mass/Vol] 458 mg/dL Critically high 74-106 [facility] Comment on above: Performed By: #### B MP #### [facility] [address] [address] [address] Sarah Church Potassium [Moles/Vol] 4.7 mmol/L Normal 3.5-5.1 [facility] Comment on above: Performed By: #### B MP #### [facility] [address] [address] [address] Sarah Church Sodium [Moles/Vol] 136 mmol/L Normal 136-145 [facility] Comment on above: Performed By: #### B MP #### [facility] [address] [address] [address] Sarah Church Urea nitrogen [Mass/Vol] 15.0 mg/dL Normal 7.0-18.0 [facility] Comment on above: Performed By: #### B MP #### [facility] [address] [address] [address] Sarah Church Urea nitrogen/Creatinine [Mass ratio] 18.8 mg/mg Normal [facility] Comment on above: Performed By: #### B MP #### [facility] [address] [address] [address] Sarah Church Orders Onlyon 06-04-2022 Orders Only [id number] Arlette Ramos 1970 F Date Provider Department Center 06/04/2022 Harris8JESSICA KAY [facility] No family history on file Normal [facility] 36on 06-01-2022 36 Patient called [...] her high cholesterol . HELP!! lol Normal [facility] Orders Onlyon 06-01-2022 Orders Only [id number] Arlette Ramos K 1970 F Date Provider Department Center 06/01/2022 [facility]COL[facility] SCHAFER [facility] Leobardo . No family history on file Normal [facility] 36on 05-28-2022 36 Spoke with flaca she states to call in script of losartan 25 mg QD Normal [facility] GLYCOHEMOGLOBIN A1Con 2022 ADA RECOMMENDATION SEE BELOW Normal [facility] Comment on above: Result Comment: ADA RECOMMENDED LIMIT 4.0 - 6.0 ADA THERAPEUTIC TARGET < 7.0 ACTION SUGGESTED > 7.0 Performed By: #### A 1C ####[facility] [id number] [address]DrCoretta Church Glucose [Mass/Vol] 266 mg/dL Normal [facility] Comment on above: Performed By: #### A 1C ####[facility] [id number] [address]DrCoretta Church HbA1c (Bld) [Mass fraction] 10.9 % Critically high 4.5-6.2 [facility] Comment on above: Performed By: #### A 1C ####[facility] [id number] [address] Sarah Church Office Visiton 05-19-2022 Follow-up visit [id number] Arlette Ramos 1970 F Date Provider Department Center 05/19/2022 MALCOLM SCHAFER MADELYN [facility] No family history on file Level of Service:07446 [place] OFFICE/OUTPATIENT ESTABLISHED MOD MDM 30-39 MIN Reason for Visit and Comments: Coronary Artery Disease [187] Hyperlipidemia [182] Normal [facility] XR HIP RT 2 3V [...] JAVAD ROB Date: 2022-04-06 21:15 Normal [facility] CBC AUTO DIFFon 11-05-2021 BASO # 0.1 103/ul Normal 0.0-0.1 [facility] Comment on above: Performed By: #### C BC #### [facility] [address] [address] [address] Sarah Church Basophils/100 WBC (Bld) 0.4 % Normal 0.2-2.0 [facility] Comment on above: Performed By: #### C BC #### [facility] [address] [place] [address] Dr. Sarah Church EO # 0.2 103/ul Normal 0.0-0.7 [facility] Comment on above: Performed By: #### C BC #### [facility] [address] [address] [address] Sarah Church Eosinophils/100 WBC (Bld) 1.3 % Normal 0.9-7.0 [facility] Comment on above: Performed By: #### C BC #### [facility] [address] [place] [address] Dr. Sarah Church Erythrocyte distribution width (RBC) [Ratio] 12.3 % Normal 11.0-15.0 [facility] Comment on above: Performed By: #### C BC #### [facility] [address] [address] [address] Sarah Church Hematocrit (Bld) [Volume fraction] 43.1 % Normal 36.0-48.0 [facility] Comment on above: Performed By: #### C BC #### [facility] [address] [place] [address] Dr. Sarah Church Hemoglobin (Bld) [Mass/Vol] 14.6 g/dL Normal 12.0-16.0 [facility] Comment on above: Performed By: #### C BC #### [facility] [address] [address] [address] Sarah Church IG # 0.04 10e3/ul Critically high 0.00-0.03 [facility] Comment on above: Performed By: #### C BC #### [facility] [address] [address] [address] Sarah Church IG % 0.3 % Normal 0.0-0.5 [facility] Comment on above: Performed By: #### C BC #### [facility] [address] [place] [address] Dr. Sarah Church LYMPH # 1.6 103/ul Normal 1.2-3.8 [facility] Comment on above: Performed By: #### C BC #### [facility] [address] [place] [address] Dr. Sarah Church Lymphocytes/100 WBC (Bld) 12.5 % Critically low 20.5-60.0 [facility] Comment on above: Performed By: #### C BC #### [facility] [address] [place] [address] Dr. Sarah Church MANUAL DIFF REQ NO Normal [place] Comment on above: Performed By: #### C BC #### [facility] [address] [place] [address] Dr. Sarah Church MCH (RBC) [Entitic mass] 29.4 pg Normal 26.7-34.0 [facility] Comment on above: Performed By: #### C BC #### [facility] [address] [place] [address] Dr. Sarah Church MCHC (RBC) [Mass/Vol] 33.9 g/dL Normal 29.9-35.2 [facility] Comment on above: Performed By: #### C BC #### [facility] [address] [place] [address] Dr. Sarah Church MCV (RBC) [Entitic vol] 86.7 fL Normal 81.0-99.0 [facility] Comment on above: Performed By: #### C BC #### [facility] [address] [address] [address] Sarah Church MONO # 1.0 103/ul Critically high 0.3-0.8 [facility] Comment on above: Performed By: #### C BC #### [facility] [address] [place] [address] Dr. Sarah Church Monocytes/100 WBC (Bld) 7.7 % Normal 1.7-12.0 [facility] Comment on above: Performed By: #### C BC #### [facility] [address] [place] [address] Dr. Sarah Church NEUT # 9.6 103/ul Critically high 1.4-6.5 [facility] Comment on above: Performed By: #### C BC #### [facility] [address] [place] [address] Dr. Sarah Church Neutrophils/100 WBC (Bld) 77.8 % Critically high 43.0-75.0 [facility] Comment on above: Performed By: #### C BC #### [facility] [address] [place] [address] Dr. Sarah Church Platelet mean volume (Bld) [Entitic vol] 11.0 fL Normal 9.5-13.5 [facility] Comment on above: Performed By: #### C BC #### [facility] [address] [place] [address] Dr. Sarah Church PLT 220 103/ul Normal 150-450 [facility] Comment on above: Performed By: #### C BC #### [facility] [address] [place] [address] Dr. Sarah Church RBC 4.97 106/ul Normal 4.20-5.40 [facility] Comment on above: Performed By: #### C BC #### [facility] [address] [place] [address] Dr. Sarah Church WBC 12.4 103/ul Critically high 4.0-11.0 [facility] Comment on above: Performed By: #### C BC #### [facility] [address] [place] [address] Dr. Sarah Church GROUP A STREP CULTUREon S. pyogenes Ag Ql (Unsp spec) Culture Observations: NEGATIVE FOR GROUP A STREPTOCOCCUS. Normal [facility] Comment on above: Performed By: #### G RASTCX, SSCRN ####[facility] [id number] [address]Dr[address] Sarah Church POINT OF CARE GLUCOSEon Glucose [Mass/Vol] 214 mg/dL Critically high 74-106 [facility] Comment on above: Performed By: #### P OCGLUC #### [facility] [address] [address] [address] Sarah Church STREPT SCREENon 11-05-2021 STREP SCREEN A Negative Normal NEGATIVE [facility] Comment on above: Performed By: #### G RASTCX, SSCRN ####[facility] [id number] [address]Dr. Sarah Church CBC AUTO DIFFon 10-16-2021 BASO # 0.1 103/ul Normal 0.0-0.1 [facility] Comment on above: Performed By: #### C BC #### [facility] [address] [address] [address] Sarah Church Basophils/100 WBC (Bld) 0.8 % Normal 0.2-2.0 [facility] Comment on above: Performed By: #### C BC #### [facility] [address] [address] [address] Sarah Church EO # 0.3 103/ul Normal 0.0-0.7 [facility] Comment on above: Performed By: #### C BC #### [facility] [address] [address] [address] Sarah Church Eosinophils/100 WBC (Bld) 3.4 % Normal 0.9-7.0 [facility] Comment on above: Performed By: #### C BC #### [facility] [address] [place] [address] Dr. Sarah Church Erythrocyte distribution width (RBC) [Ratio] 12.6 % Normal 11.0-15.0 [facility] Comment on above: Performed By: #### C BC #### [facility] [address] [place] [address] Dr. Sarah Church Hematocrit (Bld) [Volume fraction] 45.4 % Normal 36.0-48.0 [facility] Comment on above: Performed By: #### C BC #### [facility] [address] [place] [address] Dr. Sarah Church Hemoglobin (Bld) [Mass/Vol] 15.0 g/dL Normal 12.0-16.0 [facility] Comment on above: Performed By: #### C BC #### [facility] [address] [place] [address] Dr. Sarah Church IG # 0.02 10e3/ul Normal 0.00-0.03 [facility] Comment on above: Performed By: #### C BC #### [facility] [address] [place] [address] Dr. Sarah Church IG % 0.2 % Normal 0.0-0.5 [facility] Comment on above: Performed By: #### C BC #### [facility] [address] [place] [address] Dr. Sarah Church LYMPH # 2.7 103/ul Normal 1.2-3.8 [facility] Comment on above: Performed By: #### C BC #### [facility] [address] [place] [address] Dr. Sarah Church Lymphocytes/100 WBC (Bld) 31.0 % Normal 20.5-60.0 [facility] Comment on above: Performed By: #### C BC #### [facility] [address] [place] [address] Dr. Sarah Church MANUAL DIFF REQ NO Normal [place] Comment on above: Performed By: #### C BC #### [facility] [address] [place] [address] Dr. Sarah Church MCH (RBC) [Entitic mass] 29.3 pg Normal 26.7-34.0 [facility] Comment on above: Performed By: #### C BC #### [facility] Laboratory [address] [address] [address] Sarah Church MCHC (RBC) [Mass/Vol] 33.0 g/dL Normal 29.9-35.2 [facility] Comment on above: Performed By: #### C BC #### [facility] Laboratory [address] [address] [address] Sarah Church MCV (RBC) [Entitic vol] 88.7 fL Normal 81.0-99.0 [facility] [place] Comment on above: Performed By: #### C BC #### [facility] Laboratory [address] [place] [address] Dr. Sarah Church MONO # 0.6 103/ul Normal 0.3-0.8 [facility] Comment on above: Performed By: #### C BC #### [facility] Laboratory [address] [place] [address] Dr. Sarah Church Monocytes/100 WBC (Bld) 6.5 % Normal 1.7-12.0 [facility] Comment on above: Performed By: #### C BC #### [facility] Laboratory [address] [place] [address] Dr. Sarah Church NEUT # 5.0 103/ul Normal 1.4-6.5 [facility] Comment on above: Performed By: #### C BC #### [facility] Laboratory [address] [place] [address] Dr. Sarah Church Neutrophils/100 WBC (Bld) 58.1 % Normal 43.0-75.0 [facility] [place] Comment on above: Performed By: #### C BC #### [facility] Laboratory [address] [place] [address] Dr. Sarah Church Platelet mean volume (Bld) [Entitic vol] 11.0 fL Normal 9.5-13.5 [facility] [place] Comment on above: Performed By: #### C BC #### [facility] Laboratory [address] [place] [address] Dr. Sarah Church PLT 226 103/ul Normal 150-450 [facility] [place] Comment on above: Performed By: #### C BC #### [facility] Laboratory [address] [address] [address] Sarah Church RBC 5.12 106/ul Normal 4.20-5.40 [facility] Comment on above: Performed By: #### C BC #### [facility] Laboratory [address] [address] [address] Sarah Church WBC 8.6 103/ul Normal 4.0-11.0 [facility] Comment on above: Performed By: #### C BC #### [facility] Laboratory [address] [address] [address] Sarah Church GLYCOHEMOGLOBIN A1Con 2021 ADA RECOMMENDATION SEE BELOW Normal [facility] Comment on above: Result Comment: ADA RECOMMENDED LIMIT 4.0 - 6.0 ADA THERAPEUTIC TARGET < 7.0 ACTION SUGGESTED > 7.0 Performed By: #### A 1C ####[facility] [address] [address]DrCoretta Church Glucose [Mass/Vol] 275 mg/dL Normal [facility] Comment on above: Performed By: #### A 1C ####[facility] [address] [address]DrCoretta Church HbA1c (Bld) [Mass fraction] 11.2 % Critically high 4.5-6.2 [facility] Comment on above: Performed By: #### A 1C ####[facility] [address] [address]DrCoretta Church LIPID PROFILEon 10-16-2021 CHOL-HDL RATIO NORM SEE BELOW Normal [facility] Comment on above: Result Comment: 3.3 - 4.4 LOW RISK 4.4 - 7.1 AVERAGE RISK 7.1 - 11.0 MODERATE RISK >11.0 HIGH RISK Performed By: #### L IPID, CMP ####[facility] [address] [address]DrCoretta Church Cholesterol [Mass/Vol] 159 mg/dL Normal <=200 [facility] Comment on above: Performed By: #### L IPID, CMP ####[facility] [address] [address]Dr. Sarah Church Cholesterol in HDL [Mass/Vol] 41 mg/dL Normal 40-60 [facility] Comment on above: Performed By: #### L IPID, CMP ####[facility] [address] [address]Dr. Corriebrenden Ranjit Cholesterol in LDL [Mass/Vol] 102.6 mg/dL Normal [facility] Comment on above: Performed By: #### L IPID, CMP ####[facility] [address] [address]Dr. Sarah Church Cholesterol.total/C holesterol in HDL [Mass ratio] 3.9 {ratio} Normal [facility] Comment on above: Performed By: #### L IPID, CMP ####[facility] [address] [address]Dr. Sarah Church HDL NORMAL > or = 60 mg/dl - LO W CARDIOVASCULAR RISK <40 mg/dl - HIGH CARDIOVASCULAR RISK Normal [facility] Comment on above: Performed By: #### L IPID, CMP ####[facility] [address] [address]Dr. Sarah Church LDL CALC NORMAL SEE BELOW Normal [facility] Comment on above: Result Comment: <100 mg/dl OPTIMAL 100 - 129 mg/dl NEAR OR ABOVE OPTIMAL 130 - 159 mg/dl BORDERLINE HIGH 160 - 189 mg/dl HIGH >190 mg/dl VERY HIGH Performed By: #### L IPID, CMP ####[facility] [address] [address]Dr. Sarah Church Triglyceride [Mass/Vol] 77 mg/dL Normal <=150 [facility] Comment on above: Performed By: #### L IPID, CMP ####[facility] [address] [address]Dr. Sarah Church VLDL CALC 15.4 mg/dL Normal [facility] Comment on above: Performed By: #### L IPID, CMP ####[facility] [address] [address]Dr. Sarah Church MICROALBUMIN, RAND URon 06-1 mALB 2.0 mg/L Normal <=30.0 [facility] Comment on above: Performed By: #### M ALBR #### [facility] Laboratory [address] [address] [address] Sarah Church PROF 14(COMP METB)on 022 Albumin [Mass/Vol] 3.5 g/dL Normal 3.4-5.0 [facility] Comment on above: Performed By: #### L IPID, CMP ####[facility] [address] [address]Dr. Sarah Church Albumin/Globulin [Mass ratio] 0.8 {ratio} Normal [facility] Comment on above: Performed By: #### L IPID, CMP ####[facility] [address] [address]Dr. Sarah Church ALP [Catalytic activity/Vol] 85 U/L Normal 46-116 [facility] [place] Comment on above: Performed By: #### L IPID, CMP ####[facility] [address] [address]Dr. Sarah Church ALT [Catalytic activity/Vol] 59 U/L Normal 14-59 [facility] Comment on above: Performed By: #### L IPID, CMP ####[facility] [address] [address]Dr. Sarah Church Anion gap [Moles/Vol] 15.1 mmol/L Normal [facility] Comment on above: Performed By: #### L IPID, CMP ####[facility] [address] [address]Dr. Sarah Church AST [Catalytic activity/Vol] 32 U/L Normal 15-37 [facility] Comment on above: Performed By: #### L IPID, CMP ####[facility] [address] [address]Dr. Sarah Church Bilirubin [Mass/Vol] 0.4 mg/dL Normal 0.2-1.0 [facility] Comment on above: Performed By: #### L IPID, CMP ####[facility] [address] [address]Dr. Sarah Church Calcium [Mass/Vol] 9.0 mg/dL Normal 8.5-10.1 [facility] Comment on above: Performed By: #### L IPID, CMP ####[facility] [address] [address]Dr. Sarah Church Chloride [Moles/Vol] 102 mmol/L Normal 98-107 [facility] Comment on above: Performed By: #### L IPID, CMP ####[facility] [address] [address]Dr. Sarah Church CO2 [Moles/Vol] 30.2 mmol/L Normal 21.0-32.0 [facility] Comment on above: Performed By: #### L IPID, CMP ####[facility] [address] [address]Dr. Sarah Church Creatinine [Mass/Vol] 0.81 mg/dL Normal 0.55-1.02 [facility] Comment on above: Performed By: #### L IPID, CMP ####[facility] [address] [address]Dr. Sarah Church EGFR-AF MAURITANIAN >60 Normal >=60 [facility] Comment on above: Performed By: #### L IPID, CMP ####[facility] [address] [address]Dr. Sarah Church EGFR-NON AF MAURITANIAN >60 Normal >=60 [facility] Comment on above: Performed By: #### L IPID, CMP ####[facility] [address] [address]Dr. Sarah Church Globulin (S) [Mass/Vol] 3.9 g/dL Normal [facility] [place] Comment on above: Performed By: #### L IPID, CMP ####[facility] [address] [address]Dr. Sarah Church Glucose [Mass/Vol] 218 mg/dL Critically high 74-106 [facility] Comment on above: Performed By: #### L IPID, CMP ####[facility] [address] [id number]. Sarah Church Potassium [Moles/Vol] 4.3 mmol/L Normal 3.5-5.1 [facility] Comment on above: Performed By: #### L IPID, CMP ####[facility] [address] [place], [place] [address]Dr. Sarah Church Protein [Mass/Vol] 7.4 g/dL Normal 6.4-8.2 [facility] Comment on above: Performed By: #### L IPID, CMP ####[facility] [address] [id number]. Corriebrenden Church Sodium [Moles/Vol] 143 mmol/L Normal 136-145 [facility] Comment on above: Performed By: #### L IPID, CMP ####[facility] [address] [place], [place] [address]Dr. Sarah Church Urea nitrogen [Mass/Vol] 14.0 mg/dL Normal 7.0-18.0 [facility] Comment on above: Performed By: #### L IPID, CMP ####[facility] [address] [place], [place] [address]Dr. Sarah Ranjit Urea nitrogen/Creatinine [Mass ratio] 17.2 mg/mg Normal [facility] Comment on above: Performed By: #### L IPID, CMP ####[facility] [address] [place], [place] [address]Dr. Corriebrenden Ranjit Vital Signs Date Time Vital Sign Value Performing Clinician Facility 05-25-2023 11:00-0500 Body height 157.48 cm Cathie Vargas Other [facility] 05-25-2023 11:00-0500 Body mass index (BMI) [Ratio] 37.23 kg/m2 Cathie Vargas Other [facility] Other 05-25-2023 11:00-0500 Body weight 92.35 kg Cathie Vargas Other [facility] 05-25-2023 11:00-0500 Diastolic blood pressure 71 mm[Hg] Cathie Scally Other [facility] 05-25-2023 11:00-0500 Respiratory rate 18 /min Cathie Scally Other [facility] Other 05-25-2023 11:00-0500 SaO2% (BldA) [Mass fraction] 95 % Cathie Scally Other [facility] Other 05-25-2023 11:00-0500 Systolic blood pressure 139 mm[Hg] Cathie Scally Other [facility] 04-15-2023 11:00-0500 Body height 157.48 cm Shayy Dela Cruz Other [facility] 04-15-2023 11:00-0500 Body mass index (BMI) [Ratio] 37.49 kg/m2 Shayy Dela Cruz Other [facility] Other 04-15-2023 11:00-0500 Body weight 92.99 kg Shayy Dela Cruz Other [facility] Other 04-15-2023 11:00-0500 Body weight 92.98 kg MD Shayy Dela Cruz Work Phone: [facility] 04-15-2023 11:00-0500 Diastolic blood pressure 84 mm[Hg] Shayy Dela Cruz Other [facility] 04-15-2023 11:00-0500 Systolic blood pressure 142 mm[Hg] Shayy Dela Cruz Other [facility] 06-22-2022 13:30-0500 Body height 157.48 cm Shayy Dela Cruz Other [facility] Other 06-22-2022 13:30-0500 Body mass index (BMI) [Ratio] 36.94 kg/m2 Shayy Dela Cruz Other [facility] Other 06-22-2022 13:30-0500 Body weight 91.63 kg Shayy Dela Cruz Other [facility] Other 06-22-2022 13:30-0500 Diastolic blood pressure 74 mm[Hg] Shayy Dela Cruz Other [facility] Other 06-22-2022 13:30-0500 SaO2% (BldA) [Mass fraction] 97 % Shayy Dela Cruz Other [facility] Other 06-22-2022 13:30-0500 Systolic blood pressure 112 mm[Hg] Shayy Dela Cruz Other [facility] Other Encounters Encounter Date Encounter Type Care Provider Facility Start: 06-14-2023 ambulatory Brittani Quirosi lity:[facility] Start: 06-14-2023 End: 06-14-2023 ambulatory MD Shayy Dela Cruz Work Phone: [facility] Work Phone: Start: 06-14-2023 End: 06-14-2023 Patient encounter procedure MD Shayy Dela rCuz Work Phone: [facility] Work Phone: Start: 06-06-2023 End: 06-06-2023 ambulatory Shayy Dela Cruz Other [facility] Other Start: 06-06-2023 Telephone encounter Shayy Dela Cruz [facility] Start: 05-25-2023 [facility] visit new patient Cathie Sheikh kate [facility] Start: 05-25-2023 End: 05-25-2023 ambulatory Shayy Dela Cruz [facility] Other Start: 05-25-2023 Registered Recurring MD Shayy Dela Cruz [facility] Work Phone: Start: 05-25-2023 End: 05-25-2023 Patient encounter procedure MD Shayy Dela Cruz Work Phone: [facility]- Start: 05-12-2023 End: 05-12-2023 ambulatory Shayy Dela Cruz Other [facility] Other Start: 05-12-2023 Telephone encounter Shayy Dela Cruz [facility] Start: 05-10-2023 End: 05-10-2023 ambulatory Shayy Dela Cruz Other [facility] Other Start: 05-10-2023 Telephone encounter Shayy Dela Cruz [facility] Start: 04-22-2023 End: 04-22-2023 ambulatory Shayy Dela Cruz Other [facility] Other Start: 04-22-2023 Telephone encounter Shayy Dela Cruz [facility] Start: 04-20-2023 End: 04-20-2023 ambulatory Lynne Hernandez Other [facility] Other Start: 04-20-2023 Telephone encounter Lynne Hernandez [facility] Start: 04-18-2023 End: 04-18-2023 ambulatory Lynne Hernandez Other [facility] Other Start: 04-18-2023 Telephone encounter Lynne Hernandez [facility] Start: 04-15-2023 End: 04-15-2023 ambulatory Shayy Dela Cruz Other [facility] Other Start: 04-15-2023 Office outpatient visit 15 minutes Shayy Dela Cruz [facility] Start: 04-15-2023 End: 04-15-2023 Patient encounter procedure MD Shayy Dela Cruz Work Phone: [facility] Work Phone: Start: 04-06-2023 End: 04-06-2023 ambulatory Shayy Dela Cruz Other [facility] Other Start: 04-06-2023 Telephone encounter Shayy Dela Cruz [facility] Start: 02-25-2023 End: 02-25-2023 ambulatory Shayy Dela Cruz Other [facility] Other Start: 02-25-2023 Telephone encounter Shayy Dela Cruz [facility] Start: 12-13-2022 End: 12-13-2022 [facility] Start: 10-29-2022 End: 10-29-2022 ambulatory Shayy Dela Cruz Other [facility] Other Start: 10-29-2022 Telephone encounter Shayy Dela Cruz [facility] Start: 09-20-2022 End: 09-20-2022 ambulatory Shayy Dela Cruz Facility:[facility] Start: 08-27-2022 End: 08-28-[address] SHAYY DELA CRUZ Facility:[facility] Start: 08-10-2022 End: 08-10-2022 ambulatory [facility] Start: 07-20-2022 End: 07-21-[address] SHAYY DELA CRUZ Facility:[facility] Start: 07-19-2022 End: 07-19-2022 ambulatory Shayy Dela Cruz Other [facility] Other Start: 07-19-2022 Telephone encounter Shayy Dela Cruz [facility] Start: 07-12-2022 End: 07-13-[address] SHAYY DELA CRUZ Facility:[facility] Start: 07-05-2022 End: 07-05-2022 ambulatory Shayy Dela Cruz Other [facility] Other Start: 07-05-2022 Telephone encounter Shayy Dela Cruz [facility] Start: 06-28-2022 End: 06-28-2022 ambulatory Shayy Dela Cruz Other [facility] Other Start: 06-28-2022 Telephone encounter Shayy Dela Cruz [facility] Start: 06-22-2022 End: 06-22-2022 ambulatory Shayy Dela Cruz Other [facility] Other Start: 06-22-2022 Office outpatient visit 15 minutes Shayy Dela Cruz [facility] Start: 05-27-2022 End: 05-27-2022 ambulatory Shayy Dela Cruz Other [facility] Other Start: 05-27-2022 Telephone encounter Shayy Dela Cruz [facility] Start: 05-19-2022 End: 05-20-[address] SHAYY DELA CRUZ Facility:[facility] Start: 04-14-2022 End: 04-15-2022 ambulatory JORDYN SANCHEZ Facility:[facility] Start: 04-06-2022 End: 04-07-[address] SHAYY DELA CRUZ Facility:[facility] Start: 01-11-2022 End: 01-12-[address] SHAYY DELA CRUZ Facility:[facility] Start: 11-05-2021 End: 11-05-[address] SHIRIN Hitchcock Facility:[facility] Start: 10-16-2021 End: 10-17-[address] SHAYY DELA CRUZ Facility:[facility] Start: 05-10-2017 End: 05-11-2017 Ambulatory DEFAULT PHYSICIAN Facility:[facility] Start: 05-05-2017 End: 05-06-2017 Ambulatory DEFAULT PHYSICIAN Facility:[facility] Procedures Date Procedure Procedure Detail Performing Clinician Start: 12-13-2022 Follow-up visit Follow-up MARQUES MOROCHO Immunizations Immunization Date Immunization Notes Care Provider Fa cility 02-01-2022 influenza virus vaccine, split virus (incl. purified surface antigen) Shayy Dela Cruz Other [facility] Other 02-01-2022 influenza virus vaccine, unspecified formulation MD Shayy Dela Cruz Work Phone: [facility] Payers Date Payer Category Payer Medicare [id number] 2022 Self-pay 2021 Medicaid [id number] 2017 Unknown [id number] 1972 Unknown [id number] 2.16.84 [id number] 1972 Unknown [id number] 2.16.84 [id number] 1972 Unknown [id number] 2.16.84 [id number] 1972 Unknown [id number] 2.16.84 [id number] 1972 Unknown [id number] 2.16.84 [id number] 1972 Unknown [id number] 2.16.84 [id number] 1972 Unknown [id number] 2.16.84 [id number] 1972 Unknown [id number] 2.16.84 [id number] 1972 Unknown [id number] 2.16.84 [id number] 1957 Medicaid [id number] 2. [id number] 1957 Medicare [id number] . [id number] Unknown Unknown [id number] .16.8 [id number] Unknown [id number] .16.8 [id number] Unknown [id number] .16.8 [id number] Social History Date Type Detail Facility Unknown if ever smoked [facility] Other Sex Assigned At Sex Assigned At Bir th [facility] Other Start: 1970 Sex Assigned At Female F [facility] Medical Equipment Procedure Code Equipment Code Equipment Original Text Equi pment Identifier Dates Clinical Notes 01-11-2022 to 06-06-2023 Note Date & Type Note Facility 06-06-2023 Evaluation note Encounter Date Diagnosis Assessment Notes Jun, Controlled type 2 diabetes mellitus with hyperglycemia, unspecified whether joint terminal attack controller insulin use (ICD-10 - E11.65) [facility] Other 01-24-2024 Evaluation note* Encounter Date Diagnosis Assessment Notes Treatment Notes Treatment Clinical Notes May, Type 2 diabetes mellitus with hyperglycemia (ICD-10 - E11.65) ASSESSMENT: 1. Uncontrolled, a Type 2 diabetes with A1c of 12.9% (per PCP 03-24-2023) 2. Blood glucose levels are significantly above goal according to A1c, handwritten blood glucose offers sugars consistent with elevations but unclear variability could have concern for lows due to likely overbasalization. Will have patient reduce to once daily Toujeo 78 units, if she is noted to have blood glucose running under 103 of 7 days in a week we will reduce by 10%. We will have her take her Humalog 1 unit for every 5 carbohydrates and 1 unit for every 10 mg/dL above goal. Have given her handwritten information since she is able to easily identify amounts of insulin for each scenario. We did review signs and symptoms of hypoglycemia.Will continue patient on metformin 1000 mg once daily, Ozempic consideration next visit when medication of concerns for close. She will continue glipizide, reduce to 10 mg twice daily instead of 20 mg twice daily. Will have her stop if she has postprandial low blood sugars. We did place CGM today. I have her return to clinic in 10 days for download and further optimization. Follow-up with provider in 8 weeks. 3. Patient is alert, oriented and receptive to making changes or counseling. Notes: Seen for an assessment of current glucose pattern, changes in treatment plan, counseling and coordination of care related to diabetes, risks, and benefits of treatment, medications, side effects. Given handouts to reinforce concepts reviewed during counseling, see scanned notes. TOPICS REVIEWED: 1. Time was spent reviewing: a. Basic concepts of diabetes, progressive beta cell , concepts of basal/bolus/correc tive insulin requirements. Basal: The goal is fasting blood glucose of 90-130mg. IF fasting blood glucose starts to run under 100mg 3x's/ week, decrease dose by 10%. Bolus: The goal is to hold the blood glucose level steady meal to meal. If pt. is going to have increased physical activity after a meal, decrease the schedule meal dose prior to the activity by 30-50%. If pt. skips a meal do not take this dose. Correction: The goal is to correct an elevated glucose back into the 100-150mg range b. Nutrition: Concepts of healthy diet, encouraged to decrease saturated fat in diet and increase non-starchy vegetables and fruits in diet. BMI: Pt. needs to select one small change to decrease caloric intake or increase physical activity to help decrease weight. c. Correct treatment of hypoglycemia, carry a glucose source at all times on your person, in vehicles, and at bedside. Can use glucose tablets/4, four ounces of pop or juice equal to 15 G of carbohydrate. Blood glucose should be 100 mg/dl or higher when driving. d. ADA glucose goals for age and medical complexity reviewed e. Patient questions addressed 2. Activity/exercise: Encouraged to start any form of physical activity. Start low level and increase slowly to a minimal goal of 150 minutes/week. Limit activity to what is allowed by other issues such as cardiac, pulmonary or orthopedic restrictions. 3. Standards of care: Reminded to have an annual dilated eye exam, A1C every 3 months, urine testing for microalbumin once/year, check feet daily and report any cuts or sores that do not appear to be healing. 4. Meter: Plan to check blood glucose: Please check blood glucose levels 4 times/day. Back to back meals reveal effectiveness of bolus dosing. The blood glucose data is used to determine insulin doses and confirm symptoms for hypoglycemia and hyperglcyemia. 5. [facility]. Contact office if any issues or concerns with patterns of hypoglycemia, hyperglycemia, or diabetes medication issues. 6. Prescriptions: New patient 05-25-2023 uses [facility]. May, Vitamin D deficiency (ICD-10 - E55.9) Learning About Vitamin D material was published to portal May, Dietary counseling and surveillance (ICD-10 - Z71.3) Learning About Healthy Weight material was published to portal May, Hyperlipidemia (ICD-10 - E78.5) Learning About High Cholesterol material was published to portal May, HTN (hypertension) (ICD-10 - I10) High Blood Pressure: Care Instructions material was published to portal May, FDC current use of insulin (ICD-10 - Z79.4) May, BMI 37.0-37.9, adult (ICD-10 - Z68.37) May, Other 05/25/2023 The patient was given a Dexcom G7 sensor sample and an Office Owned Proacta Strong. She was taught how to use the system and shown how to apply the sensor via demonstration and provided picture/written handout. She successfully applied the sensor to the back of her right arm with assistance from her sister. She was not able to open the insertion device or apply the Overpatch on her own due to having a cast on her right arm. 30 minutes were spent educating the patient by Nguyễn Norwood RN, [facility]. [facility] Other 12-15-2023 Evaluation note* Encounter Date Diagnosis Assessment Notes Treatment Notes Treatment Clinical Notes Apr, Type 2 diabetes mellitus with hyperglycemia (ICD-10 - E11.65) Rx handwritten for diabetic shoes. Pt agrees to referral to specialty clinic. Continue present meds and discussed healthy diet in meantime. 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 Mitral V (more content not included)...[facility] 08-10-2022 NoteCardiology Clinic Note Subjective [...] Active Problem List Diagnosis Coronary arteriosclerosis in [place] artery Old myocardial infarction Sinusitis Type 1 [...] in size. The (more content not included)... [facility]02-21-2023 Evaluation note* Encounter Date Diagnosis Assessment Notes Treatment Notes Treatment Clinical Notes Jun, Acute non-recurrent maxillary sinusitis (ICD-10 - J01.00) Jun, Controlled type 2 diabetes mellitus with hyperglycemia, unspecified whether joint terminal attack controller insulin use (ICD-10 - E11.65) Once again advised management at diabetes clinic. She declines and will continue meds, followup in 3 months, and recheck labs at that time. She is eating more of a keto diet and is certain that is helping her A1C improve. Jun, Screening mammogram for breast cancer (ICD-10 - Z12.31) Zoila will call for an appt [facility] Other 01-31-2023 NoteIn light of elevated LDL will change simvastatin to lipitor 40 mg daily. Will repeat liver function and lipid level in 2 months. Staff to notify ptCoretta Evans QUILL REAMER Division of Cardiology, [facility]- [phone] Pager- [phone] Email- [email or web address]01-18-2023 NotePatient here for 1 year [...] light-headedness. All other systems reviewed and are negative.[facility] 05-19-2022 NoteUTP CARDIOLOGY PROGRESS NOTE [...] past 12 months Assessment/Plan: Coronary arteriosclerosis in [place] artery Coronary artery disease is stable, no [...] week RTC 1 month to review [facility] Hypertension is uncontrolled, Will add lisinopril 5 mg po daily, and continue metoprolol Goal b/p 130/80 or less, monitor for dry persistent cough- call office for any concerns, repeat BMP in 1 week RTC 1 month to review B/P [facility]01-18-2023 Note Coronary artery disease is stable, no concerning symptoms continue risk factor modifications- heart healthy diet, regular exercise as tolerated and continue all medications.[facility] 04-15-2022 NotePROCEDURE: XR FOOT LT [...] Electronically authenticated by: NARINDER LAN Date: 2022-04-15 06:08[facility]09-12-2022 NotePROCEDURE: XR TOES RT MIN 2 V HISTORY: Pain of toe of right foot ; first toe pain following injury COMPARISON: None. FINDINGS: BONES:No fracture, acute abnormality, or significant arthropathy. SOFT TISSUES:No visible soft tissue swelling. EFFUSION:None visible. OTHER: Negative. IMPRESSION: 1. No acute bone abnormality. 2. Mild degenerative joint disease. Electronically authenticated by: NARINDER LAN Date: 2022-01-11 18:48[facility] complaint+Reason for visit Narrative* Chief Complaint 3 Month Follow Up Referral Dr. Negro Dela Cruz DM download [facility] Work Phone: Evaluation noteNo InformationNort [employer] Other Evaluation noteNo assessment information available [facility] Work Phone: History general Narrative - Reported* Type Description Date Medical History Herpes labialis Medical History Candidiasis of mouth Medical History Type 2 diabetes holli itus with diabetic polyneuropathy, unspecified whether mcfp insulin use Medical History Controlled type 2 di abetes mellitus with hyperglycemia, unspecified whether mcfp insulin use Medical History Obesity Medical History Dyslipidemia Medical History CAD in [place] artery Medical History Asthma, intermittent Medical History [...] History appendectomy Surgical History 7 stents 1999 [facility] Other [facility] general Narrative - Reported* Type Description Date Medical History Herpes labialis Medical History Candidiasis of mouth Medical History Type 2 diabetes holli itus with diabetic polyneuropathy, unspecified whether joint terminal attack controller insulin use Medical History Controlled type 2 di abetes mellitus with hyperglycemia, unspecified whether joint terminal attack controller insulin use Medical History Obesity Medical History Dyslipidemia Medical History CAD in [place] artery Medical History Asthma, intermittent Medical History [...] stents 1999 Hospitalization History see surgical history [facility] Other History general Narrative - Reported* Type Description Date Medical History Herpes labialis Medical History Candidiasis of mouth Medical History Type 2 diabetes holli itus with diabetic polyneuropathy, unspecified whether joint terminal attack controller insulin use Medical History Controlled type 2 di abetes mellitus with hyperglycemia, unspecified whether mcfp insulin use Medical History Obesity Medical History Dyslipidemia Medical History CAD in [place] artery Medical History Asthma, intermittent Medical History Gastroesophageal reflux disease Medical History Acquired deformities of toe(s), unspecified, right foot Medical History Acquired deformity of left toe Medical History Left shoulder pain Medical History Back pain, thoracic Medical History Pain of left foot Medical History Toe pain, right Medical History Hypertension Medical History Right writ fracture 05-06-2023 Surgical History right shoulder arthroscopy Surgical History cholecystectomy Surgical History appendectomy Surgical History 7 stents, coronary 2000 Hospitalization History see surgical history [facility] Other Summary Purpose Family History No Family History Records Found Relationship Condition Age at Onset Recorded Date/T matt father Diabetes mellitus Unknown Heart disease Unknown Unknown family member Family history of other condition Unknow n Not Specified Unknown Diabetes mellitus Unknown Advance Directives No Advanced Directives Records Found Advance Directive Response Recorded Date/ Time Advance Directives No September 22 2:19pm Reason for Referral Reason *FU 04/22 [facility] - on insulin. high readings. Diagnosis 1 Type 2 diabetes holli itus with hyperglycemia (E11.65) Referral Organization [facility] Referring Provider First Name Shayy Referring Provider Last Name Jose De Jesus Referring Provider Specialty [facility] Referred Organization [facility] Referred Provider Marcia Mendes Referred Address [address] [place] [address],[facility],[place], [place],[address] Referred Provider Specialty Nurse Huey saldaña Referral Priority Routine General Notes Heather Jenkins 01:25:59 PM >received today, notes locked, insurance attached, referral faxed Additional Source Comments INFORMATION SOURCE (unrecogn ized section and content) DATE CREATED AUTHOR 10/25/2017 [facility] DATE CREATED AUTHOR AUTHOR'S ORGANIZ ATION 09/03/2022 [facility] DATE CREATED AUTHOR AUTHOR'S ORGANIZ ATION 12/13/2022 [facility] DATE CREATED AUTHOR AUTHOR'S ORGANIZ ATION 06/19/2023 [facility] REASON FOR VISIT (unrecogniz ed section and content) labsmessage3 MONTH FOLLOW UP ACrefillmessagemessageRefill3 month Follow upDM [id number] ReferralrefillsNo InformationRefillReferral Dr. Negro OsoriogeDDiogenes sensor running outNo Information Care Teams (unrecognized sec tion and content) Team Status: Active Member Role Status Dates Shayy Dela Cruz MD Primary Care Provider Active Team Status: Inactive Member Role Status Dates Shayy Dela Cruz MD Attending Provider Active St art: April 15, 2023 End: April 15, 2023 Team Status: Inactive Member Role Status Dates Cathie Vargas APRN Attending Provider Active Start: May 25, 2023 End: May 25, 2023 Team Status: Active Member Role Status Dates Shayy Dela Cruz MD Primary Care Provide r, Attending Provider Active Start: May 25, 2023 Team Status: Inactive Member Role Status Dates Shayy Dela Cruz MD Primary Care Provider Active Start: June 14, 2023 End: June 14, 2023 Brittani Collier RN Attending Provider Active Start: June 14, 2023 End: June 14, 2023 Cathie Vargas APRN Active Star t: June 14, 2023 End: June 14, 2023 Goals (unrecognized section and content) Goals may be documented in a n alternate section FOR RECORDS PERTAINING TO PATIENTS WHO ARE [...] BE BASED ON THE PRIMARY CLINICAL RECORDS. [employer] provides no warranty or guarantee of the accuracy or completeness of information in this document.
== END 2023-06-20 09:59 | disposition home or self-care (01) ==
LOC: EC 09:58
PROVIDERS: PCP Family Medicine; Visit Provider Orthopaedic Surgery
DX: S52.691D Other fracture of lower end of right ulna, subsequent encounter for closed fracture with routine healing (principal)
CPT/HCPCS: 73110

== ENCOUNTER 2023-07-04 07:20 | Outpatient (RCR) | payer MEDICARE, MEDICAID, SELFPAY | END 2023-09-16 12:07 | disposition home or self-care (01) | LOC: OT 07:20 | PROVIDERS: PCP Family Medicine; Visit Provider Orthopaedic Surgery | DX: S52.691D Other fracture of lower end of right ulna, subsequent encounter for closed fracture with routine healing (principal); M25.531 Pain in right wrist | CPT/HCPCS: 97022; 97140; 97165; 97530 ==

== ENCOUNTER 2023-07-12 18:12 | Emergency (ER) | payer MEDICARE, MEDICAID, SELFPAY ==
[2023-07-12 18:16] VITALS: BP 190/107; PULSE 90; RESP 17; TEMP 36.8; O2SAT 96; BMI 38.4
--- NOTE | 2023-07-12 18:24 | PC.NURSE ---
patient reports she has had issues with elevated blood pressure since last night. patient states it has been fluctuating and she had palpitations, dizziness, and some shortness of breath when it was at its highest. patient reports she has not been taking her hydrochlorothiazide for the past 2 months due to it makes me pee nonstop and i didn't think it was good to sit on the toilet all day.
--- OUTSIDE RECORDS SUMMARY | 2023-07-12 18:30 | XMS_ITS | CCD ---
Author Name Unknown Address [address] [place] [address] Organization [facility] Care Team Providers Care Major Account Representative Name Role Phone PHYSICIAN, DEFAULT Unavailable Unavailable [...] SHAYY Reyes Primary Care Unavailable JORDYN SANCHEZ Attending Unavailable JORDYN SANCHEZ Admitting Unavailable Narinder Lna Consulting Unavailable DELA CRUZ, DR SHAYY Reyes Primary Care Unavailable JORDYN SANCHEZ Consulting Unavailable JOSE DE JESUS, DR SHAYY Reyes Primary Care Unavailable MARKER [...] Reyes Admitting Unavailable Narinder Lan Consulting Unavailable JOSE DE JESUS, DR SHAYY Reyes Primary Care Unavailable DELA CRUZ, DR SHAYY Reyes Consulting Unavailable JOSE DE JESUS, DR SHAYY Reyes [...] DELA CRUZ, DR SHAYY Reyes Consulting Unavailable ALGHOTHANI, MOHAMAD Attending Unavailable CHRISTEN BENITES Attending Unavailable MALCOLM EVANS Attending Unavailable Lynne Hernandez Unavailable Cathie Vargas Unavailable MD Shayy Dela Cruz Primary Care Provider [phone] MD Shayy Dela Cruz Attending Provider [phone] Shayy Dela Cruz Admitting Unavailable Shayy Dela Cruz Primary Care Unavailable Shayy Dela Cruz Attending Unavailable Shayy Dela Cruz Admitting Unavailable Shayy Dela Cruz Attending Unavailable Brittani Collier Admitting Unavailable Brittani Collier Attending Unavailable Shayy Dela Cruz Primary Care Unavailable Allergies Allergy Classification Reported Allergen(s) Allergy Type Date of Onset Reaction(s) Facility (1 source) codeine Drug Allergy 9 [facility] (5 sources) Latex; Translations: [LATEX] Drug allergy (disorder) 9 sores on skin [facility] (20 sources) Codeine; Translations: [CODEINE] Drug Allergy 0 nausea [facility] Repository (18 sources) Latex Drug allergy sores on skin [facility] Other (1 source) Codeine Drug Allergy [facility] Repository (1 source) atorvastatin; Translations: [ATORVASTATIN] Drug Allergy 3 [facility]ository (1 source) Codeine Drug Allergy 4 [facility] Repository (1 source) Latex Drug allergy (disorder) 4 [facility] Medications Current Medications Medication Drug Class(es) Dates Sig (Normalized) Sig (Original) [id number] actuat albuterol 0.09 mg/actuat metered dose [...] Orally Once a day Active Dexcom G7 Phone Counselor - (4 sources) Start: Dexcom G7 Phone Counselor - as directed as directed 4 x [...] Once a day Active FreeStyle Amrik 3 [place] - (3 sources) Start: 06-06-2023 FreeStyle Libr e 3 [place] - as directed invitro 4 times daily [...] angina pectoris; Translations: [Atherosclerotic heart disease of seminole coronary artery without angina pectoris] Onset: 03-24-2022 Chronic Diabetes mellitus with complications (20 sources) Hyperglycemia due to type 2 diabetes mellitus; Translations: [Type 2 diabetes mellitus with hyperglycemia] Onset: 05-19-2022 Chronic Diabetes mellitus without complication (4 sources) Type 2 diabetes mellitus without complications; Translations: [Type 2 diabetes mellitus] Onset: 04-08-2022 06-14-2023 Chronic Disorders of lipid metabolism (20 sources) [...] Onset: 11-09-2021 Chronic Other aftercare (4 sources) 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; Translations: [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 OF INSULIN] Onset: 04-08-2022 Episodic Other aftercare (15 sources) Long-term current use of insulin; Translations: [FPC (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 of insulin] Episodic Other connective [...] Onset: 04-08-2022 Episodic Other aftercare (1 source) FPC (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; Translations: [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] Onset: 04-08-2022 Episodic Other aftercare (1 source) 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 helper termite (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 of oral hypoglycemic drugs; Translations: [[facility] USE ORAL HYPOGLYCEMIC DX] Onset: 04-08-2022 Episodic Other aftercare (1 source) Other skilled nursing (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 therapy; Translations: [OTH [facility] CURRENT DRUG THERAPY] Onset: 11-09-2021 Episodic Other [...] - FINGER STICKon Glucose [Mass/Vol] 360 mg/dL [facility] Other Office Visiton 12-13-2022 Follow-up visit [id number] Arlette Ramos 1970 F Date Provider Department Center 12/13/2022 Jay8-MARQUES MOROCHO CARD [facility] No family history on file Level of Service:45800 SD OFFICE/OUTPATIENT ESTABLISHED LOW MDM 20-29 MIN Reason for Visit and Comments: Follow-up [814201] - 4 mo follow up Normal [facility] IGP,Aptima HPV,Age Gdlnon PAP HPV Aptima Negative Normal Negative [facility] Comment on above: Order Comment: COLLE CTION TECHNIQUE:: BROOM-ALONE GYNOCOLOGICAL BODY SITE:: CERVIX ENDOCERVIX Result Comment: This nucleic acid amplification test detects fourteen high- risk HPV types (16,18,31,33,35,39,45,51,52,56,58,59,66,68) without differentiation. PERFORMED BY: [facility] OLEGARIO MARTINEZ [id number] PATHOLOGIST VACUUM CLEANER ASSEMBLER RUBINA RICCI M.D. Performed By: ###Domenica FREEMAN [id number] #### [facility] , Pap Image Guided Note Normal . [facility] Comment on above: Order Comment: COLLE CTION TECHNIQUE:: BROOM-ALONE GYNOCOLOGICAL BODY SITE:: CERVIX ENDOCERVIX Result Comment: TEST S RESULT FLAG UNITS REF RANGE LAB Clinician Provided Cytology Information Source.............Cervix;Endocervix No. of containers..01 ThinPrep Vial Age Algo ACOG Joie... 01 FLAG LEGEND: L-Low Normal,H-High Normal,LL-Alert Low,HH-Alert High <-Panic Low,>-Panic High,A-Abnormal,AA-Critical Abnormal Performed at: 01 =G Dary Torrez [address] [place] [place] [address] Christina Burden MD, Performed By: #### Tejinder FREEMAN [id number] #### [facility] , Result Comment: TEST S RESULT FLAG UNITS REF RANGE LAB DIAGNOSIS: 02 NEGATIVE FOR INTRAEPITHELIAL LESION OR MALIGNANCY. CELLULAR CHANGES ASSOCIATED WITH ATROPHY ARE PRESENT. Specimen adequacy: 02 Satisfactory for evaluation. Endocervical component may not be distinguished in cases of atrophy. Performed by: 02 Rama Baker, Music Box Mechanic ([facility]) . 02 Note: Note 02 The [...] Low,>-Panic High,A-Abnormal,AA-Critical Abnormal Performed at: [address] [address] Christina Burden MD, CBC AUTO DIFFon 08-27-2022 BASO # 0.0 103/ul Normal 0.0-0.1 [facility] Comment on above: Performed By: #### C BC #### [facility] [address] [place] [address] Dr. Sarah Church Basophils/100 WBC (Bld) 0.5 % Normal 0.2-2.0 [facility] Comment on above: Performed By: #### C BC #### [facility] [address] [place] [address] [address] Sarah Church EO # 0.2 103/ul Normal 0.0-0.7 [facility] Comment on above: Performed By: #### C BC #### [facility] [address] [place] [address] Dr. Sarah Church Eosinophils/100 WBC (Bld) 2.2 % Normal 0.9-7.0 [facility] Comment on above: Performed By: #### C BC #### [facility] [address] [place] [address] Dr. Sarah Church Erythrocyte distribution width (RBC) [Ratio] 12.5 % Normal 11.0-15.0 [facility] Comment on above: Performed By: #### C BC #### [facility] [address] [place] [address] Dr. Sarah Church Hematocrit (Bld) [Volume fraction] 44.1 % Normal 36.0-48.0 [facility] Comment on above: Performed By: #### C BC #### [facility] [address] [place] [address] Dr. Sarah Churhc Hemoglobin (Bld) [Mass/Vol] 15.1 g/dL Normal 12.0-16.0 [facility] Comment on above: Performed By: #### C BC #### [facility] [address] [place] [address] Dr. Sarah Church IG # 0.02 10e3/ul Normal 0.00-0.03 [facility] Comment on above: Performed By: #### C BC #### [facility] [address] [place] [address] Dr. Sarah Church IG % 0.2 % Normal 0.0-0.5 [facility] Comment on above: Performed By: #### C BC #### [facility] [address] [place] [address] Dr. Sarah Church LYMPH # 2.9 103/ul Normal 1.2-3.8 [facility] Comment on above: Performed By: #### C BC #### [facility] [address] [place] [address] Dr. Sarah Church Lymphocytes/100 WBC (Bld) 33.4 % Normal 20.5-60.0 [facility] Comment on above: Performed By: #### C BC #### [facility] [address] [place] [address] Dr. Sarah Church MANUAL DIFF REQ NO Normal [facility] Comment on above: Performed By: #### C BC #### [facility] [address] [place] [address] Dr. Sarah Church MCH (RBC) [Entitic mass] 29.1 pg Normal 26.7-34.0 [facility] Comment on above: Performed By: #### C BC #### [facility] [address] [place] [address] Dr. Sarah Church MCHC (RBC) [Mass/Vol] 34.2 g/dL Normal 29.9-35.2 [facility] Comment on above: Performed By: #### C BC #### [facility] [address] [place] [address] Dr. Sarah Church MCV (RBC) [Entitic vol] 85.0 fL Normal 81.0-99.0 [facility] Comment on above: Performed By: #### C BC #### [facility] [address] [place] [address] Dr. Sarah Church MONO # 0.6 103/ul Normal 0.3-0.8 [facility] Comment on above: Performed By: #### C BC #### [facility] [address] [place] [address] Dr. Sarah Church Monocytes/100 WBC (Bld) 6.8 % Normal 1.7-12.0 [facility] Comment on above: Performed By: #### C BC #### [facility] [address] [place] [address] Dr. Sarah Church NEUT # 4.9 103/ul Normal 1.4-6.5 [facility] Comment on above: Performed By: #### C BC #### [facility] [address] [place] [address] Dr. Sarah Church Neutrophils/100 WBC (Bld) 56.9 % Normal 43.0-75.0 [facility] Comment on above: Performed By: #### C BC #### [facility] [address] [address] [address] Sarah Church Platelet mean volume (Bld) [Entitic vol] 10.8 fL Normal 9.5-13.5 [facility] Comment on above: Performed By: #### C BC #### [facility] [address] [address] [address] Sarah Church PLT 276 103/ul Normal 150-450 [facility] Comment on above: Performed By: #### C BC #### [facility] [address] [place] [address] Dr. Sarah Church RBC 5.19 106/ul Normal 4.20-5.40 [facility] Comment on above: Performed By: #### C BC #### [facility] [address] [place] [address] Dr. Sarah Church WBC 8.6 103/ul Normal 4.0-11.0 [facility] Comment on above: Performed By: #### C BC #### [facility] [address] [place] [address] Dr. Sarah Church LIPID PROFILEon 08-27-2022 CHOL-HDL RATIO NORM SEE BELOW Normal [facility] Comment on above: Result Comment: 3.3 - 4.4 LOW RISK 4.4 - 7.1 AVERAGE RISK 7.1 - 11.0 MODERATE RISK >11.0 HIGH RISK Performed By: #### L IPID, CMP #### [facility] [address] [place] [address] Dr. Sarah Church Cholesterol [Mass/Vol] 110 mg/dL Normal <=200 [facility] Comment on above: Performed By: #### L IPID, CMP #### [facility] [address] [place] [address] Dr. Sarah Church Cholesterol in HDL [Mass/Vol] 33 mg/dL Critically low 40-60 [facility] Comment on above: Performed By: #### L IPID, CMP #### [facility] [address] [place] [address] Dr. Sarah Church Cholesterol in LDL [Mass/Vol] 58.0 mg/dL Normal [facility] Comment on above: Performed By: #### L IPID, CMP #### [facility] [address] [address] [address] Sarah Church Cholesterol.total/C holesterol in HDL [Mass ratio] 3.3 {ratio} Normal [facility] Comment on above: Performed By: #### L IPID, CMP #### [facility] [address] [address] [address] Sarah Church HDL NORMAL > or = 60 mg/dl - LO W CARDIOVASCULAR RISK <40 mg/dl - HIGH CARDIOVASCULAR RISK Normal [facility] Comment on above: Performed By: #### L IPID, CMP #### [facility] [address] [place] [address] Dr. Sarah Church LDL CALC NORMAL SEE BELOW Normal [facility] Comment on above: Result Comment: <100 mg/dl OPTIMAL 100 - 129 mg/dl NEAR OR ABOVE OPTIMAL 130 - 159 mg/dl BORDERLINE HIGH 160 - 189 mg/dl HIGH >190 mg/dl VERY HIGH Performed By: #### L IPID, CMP #### [facility] [address] [place] [address] Dr. Sarah Church Triglyceride [Mass/Vol] 95 mg/dL Normal <=150 [facility] Comment on above: Performed By: #### L IPID, CMP #### [facility] [address] [place] [address] Dr. Sarah Church VLDL CALC 19.0 mg/dL Normal [facility] Comment on above: Performed By: #### L IPID, CMP #### [facility] [address] [place] [address] Dr. Sarah Church PROF 14(COMP METB)on 023 Albumin [Mass/Vol] 3.3 g/dL Critically low 3.4-5.0 Th [facility] Comment on above: Performed By: #### L IPID, CMP #### [facility] [address] [place] [address] Dr. Sarah Church Albumin/Globulin [Mass ratio] 0.8 {ratio} Normal [facility] Comment on above: Performed By: #### L IPID, CMP #### [facility] [address] [place] [address] Dr. Sarah Church ALP [Catalytic activity/Vol] 100 U/L Normal 46-116 [facility] Comment on above: Performed By: #### L IPID, CMP #### [facility] [address] [address] [address] Sarah Church ALT [Catalytic activity/Vol] 74 U/L Critically high 14-59 [facility] Comment on above: Performed By: #### L IPID, CMP #### [facility] [address] [place] [address] Dr. Sarah Church Anion gap [Moles/Vol] 13.2 mmol/L Normal [facility] Comment on above: Performed By: #### L IPID, CMP #### [facility] [address] [place] [address] Dr. Sarah Church AST [Catalytic activity/Vol] 42 U/L Critically high 15-37 [facility] Comment on above: Performed By: #### L IPID, CMP #### [facility] [address] [place] [address] Dr. Sarah Church Bilirubin [Mass/Vol] 0.4 mg/dL Normal 0.2-1.0 [facility] Comment on above: Performed By: #### L IPID, CMP #### [facility] [address] [place] [address] Dr. Sarah Church Calcium [Mass/Vol] 9.2 mg/dL Normal 8.5-10.1 [facility] Comment on above: Performed By: #### L IPID, CMP #### [facility] [address] [place] [address] Dr. Sarah Church Chloride [Moles/Vol] 99 mmol/L Normal 98-107 [facility] Comment on above: Performed By: #### L IPID, CMP #### [facility] [address] [place] [address] Dr. Sarah Church CO2 [Moles/Vol] 30.4 mmol/L Normal 21.0-32.0 [facility] Comment on above: Performed By: #### L IPID, CMP #### [facility] [address] [place] [address] Dr. Sarah Church Creatinine [Mass/Vol] 0.78 mg/dL Normal 0.55-1.02 [facility] Comment on above: Performed By: #### L IPID, CMP #### [facility] [address] [address] [address] Sarah Church EGFR-AF CUBAN >60 Normal >=60 [facility] Comment on above: Performed By: #### L IPID, CMP #### [facility] [address] [place] [address] Dr. Sarah Church EGFR-NON AF CUBAN >60 Normal >=60 [facility] Comment on above: Performed By: #### L IPID, CMP #### [facility] [address] [place] [address] Dr. Sarah Church Globulin (S) [Mass/Vol] 4.0 g/dL Normal [facility] Comment on above: Performed By: #### L IPID, CMP #### [facility] [address] [place] [address] Dr. Sarah Church Glucose [Mass/Vol] 255 mg/dL Critically high 74-[address] [facility] Comment on above: Performed By: #### L IPID, CMP #### [facility] [address] [place] [address] Dr. Sarah Church Potassium [Moles/Vol] 3.6 mmol/L Normal 3.5-5.1 [facility] Comment on above: Performed By: #### L IPID, CMP #### [facility] [address] [place] [address] Dr. Sarah Church Protein [Mass/Vol] 7.3 g/dL Normal 6.4-8.2 [facility] Comment on above: Performed By: #### L IPID, CMP #### [facility] [address] [place] [address] Dr. Sarah Church Sodium [Moles/Vol] 139 mmol/L Normal 136-145 [facility] Comment on above: Performed By: #### L IPID, CMP #### [facility] [address] [address] [address] Sarah Church Urea nitrogen [Mass/Vol] 8.0 mg/dL Normal 7.0-18.0 [facility] Comment on above: Performed By: #### L IPID, CMP #### [facility] [address] [address] [address] Sarah Church Urea nitrogen/Creatinine [Mass ratio] 10.3 mg/mg Normal [facility] Comment on above: Performed By: #### L IPID, CMP #### [facility] [address] [address] [address] Sarah Church 37on 08-10-2022 37 -Start hydrochlorothiazide 12.5 mg in the morning -Check labs 1 week after starting new medication -Take blood pressure to appointment with Dr. Dela Cruz for correlation [facility] Office Visiton 08-10-2022 Follow-up visit [id number] RichardArlette 1970 F Date Provider Department Center 08/10/2022 [id number] BENITES [facility] No family history on file Level of Service:32968 SD OFFICE/OUTPATIENT ESTABLISHED MOD MDM 30-39 MIN Reason for Visit and Comments: Coronary Artery Disease [187] Hypertension [049602] Normal [facility] MG MAMM SCREEN 3D ROB CADon 07-20-2022 MG MAMM SCREEN 3D ROB CAD Patient: ZOILA RAMOS Dorothy Exam Date: 07/20/2022 : 1970 Gender:F Ordering : DR SHAYY DELA CRUZ M.D. Admission #: [id number] Family : Order #: [id number] CLICK HERE TO VIEW EXAM RADIOLOGY REPORT PROCEDURE: MAMMOGRAM SCREENING 3D BILATERAL CAD COMPARISON: MAMMO ROB SCREEN W CAD DIG, 05/16/2012. INDICATIONS: Screening mammography Calculator Name NCI Breast Cancer Risk Assessment Tool 5 Year Breast Cancer Risk 1.20% Lifetime Breast Cancer Risk 10.80% Personal Breast Cancer No Personal Ovarian Cancer No Treatments None Family Cancers None LOCATION: [facility] BREAST COMPOSITION: Almost entirely fatty. FINDINGS: DIAGNOSTIC [...] By: #### B MP #### [facility] [address] [address] [address] Sarah Church Calcium [Mass/Vol] 9.8 mg/dL Normal 8.5-10.1 [facility] Comment on above: Performed By: #### B MP #### [facility] [address] [address] [address] Sarah Church Chloride [Moles/Vol] 99 mmol/L Normal 98-107 [facility] Comment on above: Performed By: #### B MP #### [facility] [address] [address] [address] Sarah Church CO2 [Moles/Vol] 27.2 mmol/L Normal 21.0-32.0 [facility] Comment on above: Performed By: #### B MP #### [facility] [address] [address] [address] Sarah Church Creatinine [Mass/Vol] 0.80 mg/dL Normal 0.55-1.02 [facility] Comment on above: Performed By: #### B MP #### [facility] [address] [address] [address] Sarah Church EGFR-AF CUBAN >60 Normal >=60 [facility] Comment on above: Performed By: #### B MP #### [facility] [address] [address] [address] Sarah Church EGFR-NON AF CUBAN >60 Normal >=60 [facility] Comment on above: Performed By: #### B MP #### [facility] [address] [address] [address] Sarah Church Glucose [Mass/Vol] 458 mg/dL Critically high 74-[address] [facility] Comment on above: Performed By: #### B MP #### [facility] [address] [address] [address] Sarah Church Potassium [Moles/Vol] 4.7 mmol/L Normal 3.5-5.1 [facility] Comment on above: Performed By: #### B MP #### [facility] [address] [address] [address] Sarah Church Sodium [Moles/Vol] 136 mmol/L Normal 136-145 [facility] Comment on above: Performed By: #### B MP #### [facility] [address] [address] [address] Sarah Church Urea nitrogen [Mass/Vol] 15.0 mg/dL Normal 7.0-18.0 [facility] Comment on above: Performed By: #### B MP #### [facility] [address] [address] [address] Sarah Church Urea nitrogen/Creatinine [Mass ratio] 18.8 mg/mg Normal [facility] Comment on above: Performed By: #### B MP #### [facility] [address] [address] [address] Sarah Church Orders Onlyon 06-04-2022 Orders Only [id number] Arlette Ramos 1970 F Date Provider Department Center 06/04/2022 Harris8-JESSICA STONE [facility] No family history on file Normal [facility] 36on 06-01-2022 36 Patient called and i [...] her high cholesterol . HELP!! lol Normal [facility] Orders Onlyon 06-01-2022 Orders Only [id number] Arlette Ramos K 1970 Provider Department Center 06/01/2022 MALCOLM SCHAFER [facility] Le[facility] . No family history on file Normal [facility] 36on 05-28-2022 36 Spoke with flaca she states to call in script of losartan 25 mg QD Normal [facility] GLYCOHEMOGLOBIN A1Con 2022 ADA RECOMMENDATION SEE BELOW Normal [facility] Comment on above: Result Comment: ADA RECOMMENDED LIMIT 4.0 - 6.0 ADA THERAPEUTIC TARGET < 7.0 ACTION SUGGESTED > 7.0 Performed By: #### A 1C ####[facility] [id number] [address] Sarah Church Glucose [Mass/Vol] 266 mg/dL Normal [facility] Comment on above: Performed By: #### A 1C ####[facility] [id number] [address]Dr[address] Sarah Church HbA1c (Bld) [Mass fraction] 10.9 % Critically high 4.5-6.2 [facility] Comment on above: Performed By: #### A 1C ####[facility] [address] [place] [address]Dr. Sarah Church Office Visiton 05-19-2022 Follow-up visit [id number] Arlette Ramos [facility] 1970 Provider Department Center 05/19/2022 MALCOLM SCHAFER [facility] No family history on file Level of Service:47042 SD OFFICE/OUTPATIENT ESTABLISHED MOD MDM 30-39 MIN Reason for Visit and Comments: Coronary Artery Disease [187] Hyperlipidemia [182] Normal [facility] XR HIP RT 2 3V W PELVISon [...] fracture or malalignment. Electronically authenticated by: JAVAD VIRGILIORODRÍGUEZ Date: 2022-04-06 21:15 Normal [facility] CBC AUTO DIFFon 11-05-2021 BASO # 0.1 103/ul Normal 0.0-0.1 [facility] Comment on above: Performed By: #### C BC #### [facility] Laboratory [address] [place] [address] Dr. Sarah Church Basophils/100 WBC (Bld) 0.4 % Normal 0.2-2.0 [facility] Comment on above: Performed By: #### C BC #### [facility] Laboratory [address] [place] [address] Dr. Sarah Church EO # 0.2 103/ul Normal 0.0-0.7 [facility] Comment on above: Performed By: #### C BC #### [facility] Laboratory [address] [place] [address] Dr. Sarah Church Eosinophils/100 WBC (Bld) 1.3 % Normal 0.9-7.0 [facility] Comment on above: Performed By: #### C BC #### [facility] Laboratory [address] [place] [address] Dr. Sarah Church Erythrocyte distribution width (RBC) [Ratio] 12.3 % Normal 11.0-15.0 [facility] Comment on above: Performed By: #### C BC #### [facility] Laboratory [address] [place] [address] Dr. Sarah Church Hematocrit (Bld) [Volume fraction] 43.1 % Normal 36.0-48.0 [facility] Comment on above: Performed By: #### C BC #### [facility] Laboratory [address] [place] [address] Dr. Sarah Church Hemoglobin (Bld) [Mass/Vol] 14.6 g/dL Normal 12.0-16.0 [facility] Comment on above: Performed By: #### C BC #### [facility] Laboratory [address] [place] [address] Dr. Sarah Church IG # 0.04 10e3/ul Critically high 0.00-0.03 [facility] Comment on above: Performed By: #### C BC #### [facility] Laboratory [address] [place] [address] Dr. Sarah Church IG % 0.3 % Normal 0.0-0.5 [facility] Comment on above: Performed By: #### C BC #### [facility] Laboratory [address] [place] [address] Dr. Sarah Church LYMPH # 1.6 103/ul Normal 1.2-3.8 [facility] Comment on above: Performed By: #### C BC #### [facility] Laboratory [address] [place] [address] Dr. Sarah Church Lymphocytes/100 WBC (Bld) 12.5 % Critically low 20.5-60.0 [facility] Comment on above: Performed By: #### C BC #### [facility] Laboratory [address] [place] [address] Dr. Sarah Church MANUAL DIFF REQ NO Normal [facility] Comment on above: Performed By: #### C BC #### [facility] Laboratory [address] [place] [address] Dr. Sarah Church MCH (RBC) [Entitic mass] 29.4 pg Normal 26.7-34.0 [facility] Comment on above: Performed By: #### C BC #### [facility] Laboratory [address] [place] [address] Dr. Sarah Church MCHC (RBC) [Mass/Vol] 33.9 g/dL Normal 29.9-35.2 [facility] Comment on above: Performed By: #### C BC #### [facility] Laboratory [address] [place] [address] Dr. Sarah Church MCV (RBC) [Entitic vol] 86.7 fL Normal 81.0-99.0 [facility] Comment on above: Performed By: #### C BC #### [facility] Laboratory [address] [place] [address] Dr. Sarah Church MONO # 1.0 103/ul Critically high 0.3-0.8 [facility] Comment on above: Performed By: #### C BC #### [facility] Laboratory [address] [place] [address] Dr. Sarah Church Monocytes/100 WBC (Bld) 7.7 % Normal 1.7-12.0 [facility] Comment on above: Performed By: #### C BC #### [facility] Laboratory [address] [place] [address] Dr. Sarah Church NEUT # 9.6 103/ul Critically high 1.4-6.5 [facility] Comment on above: Performed By: #### C BC #### [facility] Laboratory [address] [place] [address] Dr. Sarah Church Neutrophils/100 WBC (Bld) 77.8 % Critically high 43.0-75.0 [facility] Comment on above: Performed By: #### C BC #### [facility] Laboratory [address] [place] [address] Dr. Sarah Church Platelet mean volume (Bld) [Entitic vol] 11.0 fL Normal 9.5-13.5 [facility] Comment on above: Performed By: #### C BC #### [facility] Laboratory [address] [place] [address] Dr. Sarah Church PLT 220 103/ul Normal 150-450 [facility] Comment on above: Performed By: #### C BC #### [facility] Laboratory [address] [place] [address] Dr. Sarah Church RBC 4.97 106/ul Normal 4.20-5.40 [facility] Comment on above: Performed By: #### C BC #### [facility] Laboratory [address] [place] [address] Dr. Sarah Church WBC 12.4 103/ul Critically high 4.0-11.0 [facility] Comment on above: Performed By: #### C BC #### [facility] Laboratory [address] [place] [address] Dr. Sarah Church GROUP A STREP CULTUREon 07-0 S. pyogenes Ag (Unsp spec) Culture Observations: NEGATIVE FOR GROUP A STREPTOCOCCUS. Normal [facility] Comment on above: Performed By: #### G RASTCX, SSCRN ####[facility] [address] [place] [address]Dr. Sarah Church POINT OF CARE GLUCOSEon 07-0 Glucose [Mass/Vol] 214 mg/dL Critically high 74-[address] [facility] Comment on above: Performed By: #### P OCGLUC #### [facility] Laboratory [address] [address] [address] Sarah Church STREPT SCREENon 11-05-2021 STREP SCREEN A Negative Normal NEGATIVE [facility] Comment on above: Performed By: #### G RASTCX SSCRN ####[facility] [address] [place] [address]Dr. Sarah Church CBC AUTO DIFFon 10-16-2021 BASO # 0.1 103/ul Normal 0.0-0.1 [facility] Comment on above: Performed By: #### C BC #### [facility] Laboratory [address] [place] [address] Dr. Sarah Church Basophils/100 WBC (Bld) 0.8 % Normal 0.2-2.0 [facility] Comment on above: Performed By: #### C BC #### [facility] Laboratory [address] [place] [address] Dr. Sarah Church EO # 0.3 103/ul Normal 0.0-0.7 [facility] Comment on above: Performed By: #### C BC #### [facility] Laboratory [address] [place] [address] Dr. Sarah Church Eosinophils/100 WBC (Bld) 3.4 % Normal 0.9-7.0 [facility] Comment on above: Performed By: #### C BC #### [facility] Laboratory [address] [place] [address] Dr. Sarah Church Erythrocyte distribution width (RBC) [Ratio] 12.6 % Normal 11.0-15.0 [facility] Comment on above: Performed By: #### C BC #### [facility] Laboratory [address] [place] [address] Dr. Sarah Church Hematocrit (Bld) [Volume fraction] 45.4 % Normal 36.0-48.0 [facility] Comment on above: Performed By: #### C BC #### [facility] Laboratory [address] [place] [address] Dr. Sarah Church Hemoglobin (Bld) [Mass/Vol] 15.0 g/dL Normal 12.0-16.0 [facility] Comment on above: Performed By: #### C BC #### [facility] Laboratory [address] [place] [address] Dr. Sarah Church IG # 0.02 10e3/ul Normal 0.00-0.03 [facility] Comment on above: Performed By: #### C BC #### [facility] Laboratory [address] [place] [address] Dr. Sarah Church IG % 0.2 % Normal 0.0-0.5 [facility] Comment on above: Performed By: #### C BC #### [facility] Laboratory [address] [place] [address] Dr. Sarah Church LYMPH # 2.7 103/ul Normal 1.2-3.8 [facility] Comment on above: Performed By: #### C BC #### [facility] Laboratory [address] [place] [address] Dr. Sarah Church Lymphocytes/100 WBC (Bld) 31.0 % Normal 20.5-60.0 [facility] Comment on above: Performed By: #### C BC #### [facility] Laboratory [address] [place] [address] Dr. Sarah Church MANUAL DIFF REQ NO Normal [facility] Comment on above: Performed By: #### C BC #### [facility] Laboratory [address] [place] [address] Dr. Sarah Church MCH (RBC) [Entitic mass] 29.3 pg Normal 26.7-34.0 [facility] Comment on above: Performed By: #### C BC #### [facility] Laboratory [address] [place] [address] Dr. Sarah Church MCHC (RBC) [Mass/Vol] 33.0 g/dL Normal 29.9-35.2 [facility] Comment on above: Performed By: #### C BC #### [facility] Laboratory [address] [place] [address] Dr. Sarah Church MCV (RBC) [Entitic vol] 88.7 fL Normal 81.0-99.0 [facility] Comment on above: Performed By: #### C BC #### [facility] Laboratory [address] [address] [address] Sarah Church MONO # 0.6 103/ul Normal 0.3-0.8 [facility] Comment on above: Performed By: #### C BC #### [facility] Laboratory [address] [place] [address] Dr. Sarah Church Monocytes/100 WBC (Bld) 6.5 % Normal 1.7-12.0 [facility] Comment on above: Performed By: #### C BC #### [facility] Laboratory [address] [place] [address] Dr. Sarah Church NEUT # 5.0 103/ul Normal 1.4-6.5 [facility] Comment on above: Performed By: #### C BC #### [facility] Laboratory [address] [place] [address] Dr. Sarah Church Neutrophils/100 WBC (Bld) 58.1 % Normal 43.0-75.0 [facility] Comment on above: Performed By: #### C BC #### [facility] Laboratory [address] [place] [address] Dr. Sarah Church Platelet mean volume (Bld) [Entitic vol] 11.0 fL Normal 9.5-13.5 [facility] Comment on above: Performed By: #### C BC #### [facility] Laboratory [address] [place] [address] Dr. Sarah Church PLT 226 103/ul Normal 150-450 [facility] Comment on above: Performed By: #### C BC #### [facility] Laboratory [address] [place] [address] Dr. Sarah Church RBC 5.12 106/ul Normal 4.20-5.40 [facility] Comment on above: Performed By: #### C BC #### [facility] Laboratory [address] [address] [address] Sarah Church WBC 8.6 103/ul Normal 4.0-11.0 [facility] Comment on above: Performed By: #### C BC #### [facility] Laboratory [address] [address] [address] Sarah Church GLYCOHEMOGLOBIN A1Con 2021 ADA RECOMMENDATION SEE BELOW Normal [facility] Comment on above: Result Comment: ADA RECOMMENDED LIMIT 4.0 - 6.0 ADA THERAPEUTIC TARGET < 7.0 ACTION SUGGESTED > 7.0 Performed By: #### A 1C ####[facility] [address] [place] [address]Dr. Sarah Church Glucose [Mass/Vol] 275 mg/dL Normal [facility] Comment on above: Performed By: #### A 1C ####[facility] [address] [place] [address]DrCoretta Church HbA1c (Bld) [Mass fraction] 11.2 % Critically high 4.5-6.2 [facility] Comment on above: Performed By: #### A 1C ####[facility] [address] [place] [address]DrCoretta Church LIPID PROFILEon 10-16-2021 CHOL-HDL RATIO NORM SEE BELOW Normal [facility] Comment on above: Result Comment: 3.3 - 4.4 LOW RISK 4.4 - 7.1 AVERAGE RISK 7.1 - 11.0 MODERATE RISK >11.0 HIGH RISK Performed By: #### L IPID, CMP ####[facility] [address] [place] [address]Dr. Sarah Church Cholesterol [Mass/Vol] 159 mg/dL Normal <=200 [facility] Comment on above: Performed By: #### L IPID, CMP ####[facility] [address] [place] [id number] Church Cholesterol in HDL [Mass/Vol] 41 mg/dL Normal 40-60 [facility] Comment on above: Performed By: #### L IPID, CMP ####[facility] [address] [place] [address]Dr. Sarah Church Cholesterol in LDL [Mass/Vol] 102.6 mg/dL Normal [facility] Comment on above: Performed By: #### L IPID, CMP ####[facility] [address] [place] [address]Dr. Sraah Church Cholesterol.total/C holesterol in HDL [Mass ratio] 3.9 {ratio} Normal [facility] Comment on above: Performed By: #### L IPID, CMP ####[facility] [address] [place] [address]Dr. Sarah Church HDL NORMAL > or = 60 mg/dl - LO W CARDIOVASCULAR RISK <40 mg/dl - HIGH CARDIOVASCULAR RISK Normal [facility] Comment on above: Performed By: #### L IPID, CMP ####[facility] [address] [place], [place] [address]Dr. Sarah Church LDL CALC NORMAL SEE BELOW Normal [facility] Comment on above: Result Comment: <100 mg/dl OPTIMAL 100 - 129 mg/dl NEAR OR ABOVE OPTIMAL 130 - 159 mg/dl BORDERLINE HIGH 160 - 189 mg/dl HIGH >190 mg/dl VERY HIGH Performed By: #### L IPID, CMP ####[facility] [address] [place] [address]Dr. Sarah Church Triglyceride [Mass/Vol] 77 mg/dL Normal <=150 [facility] Comment on above: Performed By: #### L IPID, CMP ####[facility] [address] [place] [address]Dr. Sarah Church VLDL CALC 15.4 mg/dL Normal [facility] Comment on above: Performed By: #### L IPID, CMP ####[facility] [address] [place] [address]Dr. Sarah Church MICROALBUMIN, RAND URon 06-1 mALB 2.0 mg/L Normal <=30.0 [facility] Comment on above: Performed By: #### M ALBR #### [facility] Laboratory [address] [place], [place] [address] Dr. Sarah Church PROF 14(COMP METB)on 022 Albumin [Mass/Vol] 3.5 g/dL Normal 3.4-5.0 [facility] Comment on above: Performed By: #### L IPID, CMP ####[facility] [address] [place] [id number]. Sarah Church Albumin/Globulin [Mass ratio] 0.8 {ratio} Normal [facility] Comment on above: Performed By: #### L IPID, CMP ####[facility] [address] [place] [address]Dr. Sarah Church ALP [Catalytic activity/Vol] 85 U/L Normal 46-116 [facility] Comment on above: Performed By: #### L IPID, CMP ####[facility] [address] [place] [address]Dr. Sarah Church ALT [Catalytic activity/Vol] 59 U/L Normal 14-59 [facility] Comment on above: Performed By: #### L IPID, CMP ####[facility] [address] [place] [address]Dr. Sarah Church Anion gap [Moles/Vol] 15.1 mmol/L Normal [facility] Comment on above: Performed By: #### L IPID, CMP ####[facility] [address] [place] [address]Dr. Sarah Church AST [Catalytic activity/Vol] 32 U/L Normal 15-37 [facility] Comment on above: Performed By: #### L IPID, CMP ####[facility] [address] [place] [id number]. Sarah Church Bilirubin [Mass/Vol] 0.4 mg/dL Normal 0.2-1.0 [facility] Comment on above: Performed By: #### L IPID, CMP ####[facility] [address] [place] [address]Dr. Sarah Church Calcium [Mass/Vol] 9.0 mg/dL Normal 8.5-10.1 [facility] Comment on above: Performed By: #### L IPID, CMP ####[facility] [address] [place] [address]Dr. Sarah Church Chloride [Moles/Vol] 102 mmol/L Normal 98-107 [facility] Comment on above: Performed By: #### L IPID, CMP ####[facility] [address] [place] [address]Dr. Sarah Church CO2 [Moles/Vol] 30.2 mmol/L Normal 21.0-32.0 [facility] Comment on above: Performed By: #### L IPID, CMP ####[facility] [address] [place], [place] [address]Dr. Sarah Church Creatinine [Mass/Vol] 0.81 mg/dL Normal 0.55-1.02 [facility] Comment on above: Performed By: #### L IPID, CMP ####[facility] [address] [place], [place] [address]Dr. Sarah Church EGFR-AF CUBAN >60 Normal >=60 [facility] Comment on above: Performed By: #### L IPID, CMP ####[facility] [address] [place], [place] [address]Dr. Sarah Church EGFR-NON AF CUBAN >60 Normal >=60 [facility] Comment on above: Performed By: #### L IPID, CMP ####[facility] [address] [place], [place] [address]Dr. Sarah Church Globulin (S) [Mass/Vol] 3.9 g/dL Normal [facility] Comment on above: Performed By: #### L IPID, CMP ####[facility] [address] [place], [place] [address]Dr. Sarah Church Glucose [Mass/Vol] 218 mg/dL Critically high 74-[address] [facility] Comment on above: Performed By: #### L IPID, CMP ####[facility] [address] [place], [place] [address]Dr. Sarah Church Potassium [Moles/Vol] 4.3 mmol/L Normal 3.5-5.1 [facility] Comment on above: Performed By: #### L IPID, CMP ####[facility] [address] [address]Dr. Sarah Church Protein [Mass/Vol] 7.4 g/dL Normal 6.4-8.2 [facility] Comment on above: Performed By: #### L IPID, CMP ####[facility] [address] [place], [place] [address]Dr. Sarah Church Sodium [Moles/Vol] 143 mmol/L Normal 136-145 [facility] Comment on above: Performed By: #### L IPID, CMP ####[facility] [address] [place], [place] [address]Dr. Sarah Church Urea nitrogen [Mass/Vol] 14.0 mg/dL Normal 7.0-18.0 [facility] Comment on above: Performed By: #### L IPID, CMP ####[facility] [address] [place], [place] [address]Dr. Sarah Church Urea nitrogen/Creatinine [Mass ratio] 17.2 mg/mg Normal [facility] Comment on above: Performed By: #### L IPID, CMP ####[facility] [address] [place], [place] [address]Dr. Sarah Church Vital Signs Date Time Vital Sign Value Performing Clinician Facility 05-25-2023 11:00-0500 Body height 157.48 cm Cathie Vargas Other [facility] 05-25-2023 11:00-0500 Body mass index (BMI) [Ratio] 37.23 kg/m2 Cathie Vargas Other [facility] Other 05-25-2023 11:00-0500 Body weight 92.35 kg Cathie Vargas Other [facility] 05-25-2023 11:00-0500 Diastolic blood pressure 71 mm[Hg] Cathie Vargas Other [facility] 05-25-2023 11:00-0500 Respiratory rate 18 /min Cathie Vargas Other [facility] Other 05-25-2023 11:00-0500 SaO2% (BldA) [Mass fraction] 95 % Cathie Vargas Other [facility] Other 05-25-2023 11:00-0500 Systolic blood pressure 139 mm[Hg] Cathie Vargas Other [facility] 04-15-2023 11:00-0500 Body height 157.48 cm Shayy Dela Cruz Other [facility] 04-15-2023 11:00-0500 Body mass index (BMI) [Ratio] 37.49 kg/m2 Shayy Dela Cruz Other [facility] Other 04-15-2023 11:00-0500 Body weight 92.99 kg Shayy Dela Cruz Other [facility] Other 04-15-2023 11:00-0500 Body weight 92.98 kg MD Shayy Dela Cruz Work Phone: [facility] 04-15-2023 11:00-0500 Diastolic blood pressure 84 mm[Hg] Shayy Dela Cruz Other [facility] 04-15-2023 11:00-0500 Systolic blood pressure 142 mm[Hg] Shayy Dela Cruz Other [facility] 06-22-2022 13:30-0500 Body height 157.48 cm Shayy Dela Cruz Other [facility] Other 06-22-2022 13:30-0500 Body mass index (BMI) [Ratio] 36.94 kg/m2 Shayy Dela Cruz Other [facility] Other 06-22-2022 13:30-0500 Body weight 91.63 kg Shayy Dela Cruz Other [facility] Other 06-22-2022 13:30-0500 Diastolic blood pressure 74 mm[Hg] Shayy Dela Cruz Other [facility] Other 06-22-2022 13:30-0500 SaO2% (BldA) [Mass fraction] 97 % Shayy Dela Cruz Other [facility] Other 06-22-2022 13:30-0500 Systolic blood pressure 112 mm[Hg] Shayy Dela Cruz Other [facility] Other Encounters Encounter Date Encounter Type Care Provider Facility Start: 06-14-2023 ambulatory Brittani Law lity:[facility] Start: 06-14-2023 End: 06-14-2023 ambulatory MD Shayy Dela Cruz Work Phone: [facility] Work Phone: Start: 06-14-2023 End: 06-14-2023 Patient encounter procedure MD Shayy Dela Cruz Work Phone: [facility] Work Phone: Start: 06-06-2023 End: 06-06-2023 ambulatory Shayy Dela Cruz Other [facility] Other Start: 06-06-2023 Telephone encounter Shayy Dela Cruz [facility] Start: 05-25-2023 FQ visit new patient Cathie love [facility] Start: 05-25-2023 End: 05-26-2023 ambulatory MD Shayy Dela Cruz Work Phone: [facility] Other Start: 05-25-2023 End: 05-25-2023 Discharged Recurring MD Shayy Dela Cruz Work Phone: [facility] Work Phone: Start: 05-25-2023 Registered Recurring MD [facility] Work Phone: Start: 05-25-2023 End: 05-25-2023 Patient encounter procedure MD Shayy Dela Cruz Work Phone: [facility]- Start: 05-12-2023 End: 05-12-2023 ambulatory Shayy Dela Cruz Other [facility] Other Start: 05-12-2023 Telephone encounter Shayy Dela Cruz [facility] Start: 05-10-2023 End: 05-10-2023 ambulatory Shayy Dela Cruz Other [facility] Other Start: 05-10-2023 Telephone encounter Shayy Dela Cruz [facility] Start: 04-22-2023 End: 04-22-2023 ambulatory Shayy Dela Cruz Other [facility] Other Start: 04-22-2023 Telephone encounter Shayy Dela Cruz [facility] Start: 04-20-2023 End: 04-20-2023 ambulatory Lynne Avilat Other [facility] Other Start: 04-20-2023 Telephone encounter Lynneana Avilat [facility] Start: 04-18-2023 End: 04-18-2023 ambulatory Lynneana Avilat Other [facility] Other Start: 04-18-2023 Telephone encounter Lynneana Avilat [facility] Start: 04-15-2023 End: 04-15-2023 ambulatory Shayy Dela Cruz Other [facility] Other Start: 04-15-2023 Office outpatient visit 15 minutes Shayy Dela Cruz [facility] Start: 04-15-2023 End: 04-15-2023 Patient encounter procedure MD Shayy Dela Cruz Work Phone: [facility] Work Phone: Start: 04-06-2023 End: 04-06-2023 ambulatory Shayy Dela Cruz Other [facility] Other Start: 04-06-2023 Telephone encounter Shayy Dela Cruz [facility] Start: 02-25-2023 End: 02-25-2023 ambulatory Shayy Dela Cruz Other [facility] Other Start: 02-25-2023 Telephone encounter Shayy Dela Cruz [facility] Start: 12-13-2022 End: 12-13-2022 ambulatory [facility] Start: 10-29-2022 End: 10-29-2022 ambulatory Shayy Dela Cruz Other [facility] Other Start: 10-29-2022 Telephone encounter Shayy Dela Cruz [facility] Start: 09-20-2022 End: 09-20-2022 ambulatory Shayy Dela Cruz Facility:[facility] Start: 08-27-2022 End: 08-28-[address] SHAYY DELA CRUZ Facility:[facility] Start: 08-10-2022 End: 08-10-2022 ambulatory [facility] Start: 07-20-2022 End: 07-21-[address] SHAYY DELA CRUZ Facility:[facility] Start: 07-19-2022 End: 07-19-2022 ambulatory Shayy Dela Cruz Other [facility] Other Start: 07-19-2022 Telephone encounter Shayy Dela Cruz [facility] Start: 07-12-2022 End: 07-13-[address] SHAYY DELA CRUZ Facility:[facility] Start: 07-05-2022 End: 07-05-2022 ambulatory Shayy Dela Cruz Other [facility] Other Start: 07-05-2022 Telephone encounter Shayy Dela Cruz [facility] Start: 06-28-2022 End: 06-28-2022 ambulatory Shayy Dela Cruz Other [facility] Other Start: 06-28-2022 Telephone encounter Shayy Dela Cruz [facility] Start: 06-22-2022 End: 06-22-2022 ambulatory Shayy Dela Cruz Other [employer] Other Start: 06-22-2022 Office outpatient visit 15 minutes Shayy Dela Cruz [facility] Start: 05-27-2022 End: 05-27-2022 ambulatory Shayy Dela Cruz Other [facility] Other Start: 05-27-2022 Telephone encounter Shayy Dela Cruz [facility] Start: 05-19-2022 End: 05-20-[address] SHAYY DELA CRUZ Facility:[facility] Start: 04-14-2022 End: 04-15-2022 ambulatory JORDYN SANCHEZ Facility:[facility] Start: 04-06-2022 End: 04-07-[address] SHAYY DELA CRUZ Facility:[facility] Start: 01-11-2022 End: 01-12-[address] SHAYY DELA CRUZ Facility:[facility] Start: 11-05-2021 End: 11-05-[address] SHIRIN Hitchcock Facility:[facility] Start: 10-16-2021 End: 10-17-[address] SHAYY DELA CRUZ Facility: Start: 05-10-2017 End: 05-11-2017 Ambulatory DEFAULT PHYSICIAN Facility:[facility] Start: 05-05-2017 End: 05-06-2017 Ambulatory DEFAULT PHYSICIAN Facility:[facility] Procedures Date Procedure Procedure Detail Performing Clinician Start: 12-13-2022 Follow-up visit Follow-up MARQUES MOROCHO Immunizations Immunization Date Immunization Notes Care Provider Fa ciliadrrion 02-01-2022 influenza virus vaccine, split virus (incl. purified surface antigen) Shayy Dela Cruz Other [facility] Other 02-01-2022 influenza virus vaccine, unspecified formulation MD Shayy Dela Cruz Work Phone: [facility] Payers Date Payer Category Payer Medicare [id number] 2022 Self-pay 2021 Medicaid [id number] 2017 Unknown [id number] 1972 Unknown [id number] 2.16.84 [id number] 1972 Unknown [id number] 2.16.84 [id number] 1972 Unknown [id number] 2.16.84 [id number] 1972 Unknown [id number] 2.16.84 [id number] 1972 Unknown [id number] 2.16.84 0.1.529450.3.579.2.593 1972 Unknown [id number] 2.16.84 0.1.810375.3.579.2.593 1972 Unknown [id number] 2.16.84 0.1.454266.3.579.2.593 1972 Unknown [id number] 2.16.84 0.1.996403.3.579.2.593 1972 Unknown [id number] 2.16.84 0.1.412089.3.579.2.593 1957 Medicaid [id number] . .[id number] 1957 Medicare [id number] . .[id number] Unknown Unknown [id number] .16.8 [id number] Unknown [id number] .16. 40.1.521325.3.579.2.531 Unknown [id number] .16. [id number] Social History Date Type Detail Facility Unknown if ever smoked [facility] Other Sex Assigned At Sex Assigned At Bir th [facility] Other Start: 1970 Sex Assigned At Female F [facility] Medical Equipment Procedure Code Equipment Code Equipment Original Text Equi pment Identifier Dates Clinical Notes 01-11-2022 to 06-06-2023 Note Date & Type Note Facility 06-06-2023 Evaluation note Encounter Date Diagnosis Assessment Notes Jun, Controlled type 2 diabetes mellitus with hyperglycemia, unspecified whether long term care administrator insulin use (ICD-10 - E11.65) [facility] Other 01-24-2024 Evaluation note* Encounter Date Diagnosis [...] issues. 6. Prescriptions: New patient 05-25-2023 uses [facility]. 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 She was taught how to use the [...] educating the patient by Nguyễn Norwood RN, [facility]. [facility] Other 12-15-2023 Evaluation note* Encounter Date Diagnosis Assessment Notes Treatment Notes Treatment Clinical Notes Apr, Type 2 diabetes mellitus with hyperglycemia (ICD-10 - E11.65) Rx handwritten for diabetic shoes. Pt agrees to referral to specialty clinic. Continue present meds and discussed healthy diet in meantime. 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 Mitral V (more content not included)...[facility] 08-10-2022 NoteCardiology Clinic Note Subjective Zoila Ramos [...] Active Problem List Diagnosis Coronary arteriosclerosis in seminole artery Old myocardial infarction Sinusitis Type 1 [...] in size. The (more content not included)... [facility]02-21-2023 Evaluation note* Encounter Date Diagnosis Assessment Notes Treatment Notes Treatment Clinical Notes Jun, Acute non-recurrent maxillary sinusitis (ICD-10 - J01.00) Jun, Controlled type 2 diabetes mellitus with hyperglycemia, unspecified whether long term care administrator insulin use (ICD-10 - E11.65) Once again advised management at diabetes clinic. She declines and will continue meds, followup in 3 months, and recheck labs at that time. She is eating more of a keto diet and is certain that is helping her A1C improve. Jun, Screening mammogram for breast cancer (ICD-10 - Z12.31) Zoila will call for an appt [facility] Other 01-31-2023 NoteIn light of elevated LDL will change simvastatin to lipitor 40 mg daily. Will repeat liver function and lipid level in 2 months. Staff to notify pt. Malcolm Evans GAS FITTER HELPER Division of Cardiology, [facility] Ph- [phone] Pager- [phone] Email- [email or web address]01-18-2023 NotePatient here for 1 year follow up [...] light-headedness. All other systems reviewed and are negative.[facility] 05-19-2022 NoteUTP CARDIOLOGY PROGRESS NOTE HPI: Zoila [...] past 12 months Assessment/Plan: Coronary arteriosclerosis in seminole artery Coronary artery disease is stable, no [...] week RTC 1 month to review B/P [facility]-18-2023 Note Hypertension is uncontrolled, Will add lisinopril 5 mg po daily, and continue metoprolol Goal b/p 130/80 or less, monitor for dry persistent cough- call office for any concerns, repeat BMP in 1 week RTC 1 month to review B/P [facility]01-18-2023 Note Coronary artery disease is stable, no concerning symptoms continue risk factor modifications- heart healthy diet, regular exercise as tolerated and continue all medications.[facility] 04-15-2022 NotePROCEDURE: XR FOOT LT MIN 3 [...] authenticated by: NARINDER LAN Date: 2022-01-11 18:48[facility]Reason for [facility] Narrative* Chief Complaint 3 Month Follow Up Referral Dr. Negro LAGUERRE download [facility] Work Phone: Chief complaint+Reason for visit Narrative* Chief Complaint 3 Month Follow Up Referral Dr. Negro LAGUERRE download Reason for Visit Type 2 diabetes holli itus [facility] Work Phone: Evaluation noteNo InformationNort inEarth Other Evaluation noteNo assessment information available [facility] Work Phone: Evaluation note* Diagnosis Onset Date Resolution Status Type 2 diabetes mellitus acu te [facility] Work Phone: History general Narrative - Reported* Type Description Date Medical History Herpes labialis Medical History Candidiasis of mouth Medical History Type 2 diabetes holli itus with diabetic polyneuropathy, unspecified whether skilled nursing insulin use Medical History Controlled type 2 di abetes mellitus with hyperglycemia, unspecified whether long term care administrator insulin use Medical History Obesity Medical History Dyslipidemia Medical History CAD in seminole artery Medical History Asthma, intermittent Medical History [...] History appendectomy Surgical History 7 stents 1999 [facility] Other Hisvjjp general Narrative - Reported* Type Description Date Medical History Herpes labialis Medical History Candidiasis of mouth Medical History Type 2 diabetes holli itus with diabetic polyneuropathy, unspecified whether long term care administrator insulin use Medical History Controlled type 2 di abetes mellitus with hyperglycemia, unspecified whether long term care administrator insulin use Medical History Obesity Medical History Dyslipidemia Medical History CAD in seminole artery Medical History Asthma, intermittent Medical History [...] stents 1999 Hospitalization History see surgical history [facility] Other History general Narrative - Reported* Type Description Date Medical History Herpes labialis Medical History Candidiasis of mouth Medical History Type 2 diabetes holli itus with diabetic polyneuropathy, unspecified whether long term care administrator insulin use Medical History Controlled type 2 di abetes mellitus with hyperglycemia, unspecified whether skilled nursing insulin use Medical History Obesity Medical History Dyslipidemia Medical History CAD in seminole artery Medical History Asthma, intermittent Medical History [...] History appendectomy Surgical History 7 stents, coronary 1999 Hospitalization History see surgical history [facility] Other Summary Purpose Family History No Family History Records Found Relationship Condition Age at Onset Recorded Date/T matt father Diabetes mellitus Unknown Heart disease Unknown Unknown family member Family history of other condition Unknow n Not Specified Unknown Diabetes mellitus Unknown Advance Directives No Advanced Directives Records Found Advance Directive Response Recorded Date/ Time Advance Directives No September 22 3 2:19pm Reason for Referral Reason *FU 04/22 [facility] - on insulin. high readings. Diagnosis 1 Type 2 diabetes holli itus with hyperglycemia (E11.65) Referral Organization [facility] Referring Provider First Name Shayy Referring Provider Last Name Jose De Jesus Referring Provider Specialty Family [facility] Referred Organization [facility] Referred Provider Marcia Mendes Referred Address [address] [place] [address],[address],[place], [place],[address] Referred Provider Specialty Nurse Huey saldaña Referral Priority Routine General Notes Heather Jenkins 01:25:59 PM >received today, notes locked, insurance attached, referral faxed Additional Source Comments INFORMATION SOURCE (unrecogn ized section and content) DATE CREATED AUTHOR 10/25/2017 [facility] DATE CREATED AUTHOR AUTHOR'S ORGANIZ ATION [facility] [facility] DATE CREATED AUTHOR AUTHOR'S ORGANIZ ATION 12/13/2022 [facility] DATE CREATED AUTHOR AUTHOR'S ORGANIZ ATION 07/01/2023 [facility] REASON FOR VISIT (unrecogniz ed section and content) labsmessage3 MONTH FOLLOW UP ACrefillmessagemessageRefill3 month Follow upDM [id number] ReferralrefillsNo InformationRefillReferral Dr. Negro Gallegos sensor running outNo Information Care Teams (unrecognized [...] June 14, 2023 End: June 14, 2023 Team Status: Inactive Member Role Status Dates Shayy Dela Cruz MD Primary Care Provide r, Attending Provider Active Start: May 25, 2023 End: May 25, 2023 Goals (unrecognized section and content) Goals [...] BE BASED ON THE PRIMARY CLINICAL RECORDS. [facility]. provides no warranty or guarantee of the accuracy or completeness of information in this document.
--- NOTE | 2023-07-12 18:31 | ECG_ITS ---
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: : 1970 Requested By: SUKH DELA CRUZ Order Number: [id number] Reading MD: ANDER KAMARA Measurements Intervals [place] Rate: 88 P: 63 DE: 142 QRS: -54 QRSD: 114 T: 102 QT: 396 QTc: 442 Interpretive Statements 1100 Sinus rhythm 2630 Left anterior fascicular block 5234 Left ventricular hypertrophy with repolarization abnormality 8003 Consistent with pulmonary disease Remote anteroseptal VA 9150 abnormal ECG Compared to ECG 04/26/2017 10:53:16 Left ventricular hypertrophy now present Early repolarization now present Myocardial infarct finding no longer present Electronically Signed On 07-12-2023 22:37:45 EDT by ANDER KAMARA
--- NOTE | 2023-07-12 18:32 | ED.GENADUL1 ---
HPI - General Adult General Chief complaint: Arrhythmia/Palpitations Stated complaint: High Blood Pressure Time Seen by Provider: 07/12/23 18:13 Source: patient Mode of arrival: ambulance Limitations: no limitations History of Present Illness HPI narrative: 53-year-old female to the emergency department with chief complaint of elevated blood pressure. Patient reports that over the last twenty-four hours she has noted her blood pressures been increasing. She reports it is been high for the last two months that she has had some medication issues. She reports it has been greater than a hundred and eighty systolic for the last twenty-four hours. She has been taking her carvedilol and losartan. Patient reports that there was an issue transferring her prescriptions to a different pharmacy and she was not taking them correctly because the instructions change by accident. She reports that today is the 1st day she is taking the medications at the prescribed doses. She denies any chest pain or shortness of breath. She reports she is also out of her insulin and is urinating a lot. She is concerned her glucose may be high. Related Data Home Medications Medication Instructions Recorded Confirmed albuterol sulfate 90 mcg/actuation 2 inh inhalation PRN PRN shortness 12/31/22 12/31/22 aerosol inhaler of breath or wheezing aspirin 81 mg capsule 81 mg PO DAILY 12/31/22 12/31/22 atorvastatin 40 mg tablet 40 mg PO DAILY 12/31/22 12/31/22 carvedilol 6.25 mg tablet 6.25 mg PO Q12H 12/31/22 12/31/22 esomeprazole magnesium 40 mg 40 mg PO Q24H 12/31/22 12/31/22 capsule,delayed release fluticasone propionate 110 3 puff inhalation PRN PRN 12/31/22 12/31/22 mcg/actuation HFA aerosol inhaler bronchospasm (Flovent HFA) glipizide 10 mg tablet 20 mg PO BID 12/31/22 12/31/22 hydrochlorothiazide 12.5 mg capsule 12.5 mg PO DAILY 12/31/22 12/31/22 insulin glargine U-300 conc 300 unit subcut 12/31/22 unit/mL (1.5 mL) subcutaneous pen (Bill Astudillo U-300 Insulin) insulin lispro 100 unit/mL subcut 12/31/22 subcutaneous pen lisinopril 5 mg tablet 5 mg PO DAILY 12/31/22 12/31/22 losartan 25 mg tablet 25 mg PO DAILY 12/31/22 12/31/22 metformin 1,000 mg tablet 1,000 mg PO BID 12/31/22 12/31/22 Previous Rx's Medication Instructions Recorded nabumetone 750 mg tablet 750 mg PO BID PRN pain #20 tabs 12/31/22 Allergies Allergy/AdvReac Type Severity Reaction Status Date / Time latex Allergy Intermediate itch Verified 07/12/23 18:16 insulin lispro Allergy Mild Rash Verified 07/12/23 18:16 codine AdvReac Intermediate Vomiting Uncoded 07/12/23 18:16 Review of Systems ROS Status of ROS 10 or more systems reviewed and unremarkable except as noted in history and below [facility] Social History Smoking status: Never smoker Exam Narrative Exam Narrative: VITALS: I have reviewed the triage vital signs. GENERAL: Well developed, well appearing adult in no acute distress. NEURO: Alert and oriented. Moves all extremities. Face is symmetric and expressive. EYES: PERRL. No scleral icterus or conjunctival injection. No discharge. HENT: Normocephalic, atraumatic. Hearing is grossly intact. Nares grossly patent and without discharge. Mucous membranes moist. NECK: No JVD. Patient moves neck without restriction. CARDIO: Rhythm regular. Normal rate. No murmur, rub, or gallop. Pulses equal bilaterally in the upper and lower extremity. No lower extremity edema. PULM: Lungs clear to auscultation in all dickens. No wheezes, rales, or rhonchi. No conversational dyspnea. No splinting, stridor, or accessory muscle use. GI/: Abdomen is soft and non-tender. Normoactive bowel sounds. EXTREMITIES: Symmetric muscle bulk. No joint swelling. No clubbing, cyanosis, or deformity. SKIN: Warm and dry. Normal turgor. No rash or lesions appreciated. PSYCH: Mood, affect, and interaction is appropriate to the setting. Constitutional Vital Signs, click to edit/add: Last Vital Signs Temp 98.2 F 07/12/23 18:16 Pulse 90 07/12/23 18:16 Resp 17 07/12/23 18:16 BP 190/107 H 07/12/23 18:16 Pulse Ox 96 07/12/23 18:16 Course Vital Signs Vital signs: Vital Signs Temperature 98.2 F 07/12/23 18:16 Pulse Rate 90 07/12/23 18:16 Respiratory Rate 17 07/12/23 18:16 Blood Pressure 190/107 H 07/12/23 18:16 Pulse Oximetry 96 07/12/23 18:16 Temperature 98.2 F 07/12/23 18:16 Pulse Rate 90 07/12/23 18:16 Respiratory Rate 17 07/12/23 18:16 Blood Pressure 190/107 H 07/12/23 18:16 Pulse Oximetry 96 07/12/23 18:16 Medical Decision Making MDM Narrative Medical decision making narrative: 53-year-old female to the emergency Department chief complaint of elevated blood pressure. Vital stable, patient is afebrile. She has no evidence of hypertensive emergency. She does report she has not been taking her insulin. We'll obtain some basic labs. EKG performed. Patient agrees with this plan. Care was signed out to Dr. Ayala. Lab Data Lab results reviewed: Yes I reviewed the patient's lab results ECG Data Attestation: I personally reviewed and interpreted this ECG as follows: (NSR @ 88. LVH. NO STEMI. NORMAL QTC. ) Discharge Plan Discharge Chief Complaint: Arrhythmia/Palpitations Clinical Impression: Non compliance w medication regimen, Asymptomatic hypertension Patient Disposition: Still a Patient Prescriptions / Home Meds: No Action albuterol sulfate 90 mcg/actuation HFA aerosol inhaler 2 inh INHALATION PRN PRN (Reason: shortness of breath or wheezing) insulin lispro 100 unit/mL insulin pen SUBCUT Toulast SoloStar U-300 Insulin 300 unit/mL (1.5 mL) insulin pen SUBCUT aspirin 81 mg capsule 81 mg PO DAILY atorvastatin 40 mg tablet 40 mg PO DAILY losartan 25 mg tablet 25 mg PO DAILY fluticasone propionate [Flovent HFA] 110 mcg/actuation HFA aerosol inhaler 3 puff INHALATION PRN PRN (Reason: bronchospasm) esomeprazole magnesium 40 mg capsule,delayed release(DR/EC) 40 mg PO Q24H glipizide 10 mg tablet 20 mg PO BID hydrochlorothiazide 12.5 mg capsule 12.5 mg PO DAILY lisinopril 5 mg tablet 5 mg PO DAILY metformin 1,000 mg tablet 1,000 mg PO BID carvedilol 6.25 mg tablet 6.25 mg PO Q12H nabumetone 750 mg tablet 750 mg PO BID PRN (Reason: pain) Qty: 20 0RF Referrals: Shayy Ly MD [Primary Care Provider] - 1 week
[2023-07-12 18:37] LABS: Basophils Percent Auto 0.5 % (0.2-2.0); Eosinophils Absolute Auto 0.1 10^3/uL (0.0-0.7); Eosinophils Percent Auto 1.5 % (0.9-7.0); Hematocrit 42.8 % (36.0-48.0); Hemoglobin 14.3 g/dL (12.0-16.0); Immature Granulocytes Abs Auto 0.01 10^3/uL (0.00-0.03); Immature Granulocytes Pct Auto 0.1 % (0.0-0.5); Lymphocytes Absolute Auto 2.7 10^3/uL (1.2-3.8); Lymphocytes Percent Auto 34.1 % (20.5-60.0); Mean Corpuscular HGB Conc 33.4 g/dL (29.9-35.2); Mean Corpuscular Hemoglobin 29.2 pg (26.7-34.0); Mean Corpuscular Volume 87.5 fL (81.0-99.0); Mean Platelet Volume 10.9 fL (9.5-13.5); Monocytes Absolute Auto 0.5 10^3/uL (0.3-0.8); Monocytes Percent Auto 6.4 % (1.7-12.0); Neutrophils Absolute Auto 4.5 10^3/uL (1.4-6.5); Neutrophils Percent Auto 57.4 % (43.0-75.0); Platelet Count 259 10^3/uL (150-450); Red Blood Count 4.89 10^6/uL (4.20-5.40); Red Cell Distribution Width 12.7 % (11.0-15.0); White Blood Count 7.8 10^3/uL (4.0-11.0)
[2023-07-12 18:40] LABS: Anion Gap 14.9; BUN Creatinine Ratio 15.4; Calcium 9.1 mg/dL (8.5-10.1); Carbon Dioxide 26.1 mmol/L (21.0-32.0); Chloride 100 mmol/L (98-107); Estimated GFR (African America >60 (>=60); Estimated GFR (Non-African Ame >60 (>=60); Glucose 215 mg/dL (74-106); Sodium 137 mmol/L (136-145)
== END 2023-07-12 18:57 | disposition home or self-care (01) ==
PROVIDERS: Emergency Provider Student in an Organized Health Care Education/Training Program; PCP Family Medicine
DX: I10 Essential (primary) hypertension (principal); Z91.148 Patient's other noncompliance with medication regimen for other reason; Z79.899 Other long term (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 therapy; Z79.4 Long term (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 of insulin; Z79.82 Long term (current) use of aspirin; Z79.84 Long term (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 of oral hypoglycemic drugs
CPT/HCPCS: 36415; 80048; 85025; 93005; 99284

== ENCOUNTER 2023-07-18 09:20 | Outpatient (OUT) | payer MEDICARE, MEDICAID, SELFPAY ==
--- NOTE | 2023-07-18 | XR_ITS ---
[facility] [place] [id number] Patient Name: COLETTE DINH MRN: [id number] date: 1970 Sex: F Assigned Patient Location: Current Patient Location: Accession/Order Number: [id number] Exam Date: 07/18/2023 09:37 Report Date: 07/18/2023 13:48 At the request of: COLTEN ENCARNACION Procedure: XR wrist RT min 3V PROCEDURE: XR wrist RT min 3V COMPARISON: 06/20/2023 HISTORY: RIGHT WRIST PAIN FINDINGS: BONES:Distal ulna fractures are less well seen on the current exam consistent with interval bone formation. No new fracture or dislocation. Degenerative changes with joint space narrowing most significant in the medial carpus SOFT TISSUES:Negative. No visible soft tissue swelling. EFFUSION:None visible. OTHER: Incidental vascular calcifications XR/XR wrist RT min 3V IMPRESSION: Stable healing complex fracture of the distal ulna Electronically authenticated by: JOHN JAVED Date: 07/18/2023 13:48
--- OUTSIDE RECORDS SUMMARY | 2023-07-18 09:40 | XMS_ITS | CCD ---
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 Role Phone PHYSICIAN, DEFAULT Unavailable Unavailable [...] Unavailable HAY ., DR CARPIO Attending Unavailable EDLA CRUZ, DR SHAYY Reyes Primary Care Unavailable [...] MD Shayy Dela Cruz Primary Care Provider MD Shayy Dela Cruz Attending Provider Shayy Dela Cruz Admitting Unavailable Shayy Dela Cruz Primary Care Unavailable Shayy Dela Cruz Attending Unavailable Shayy Dela Cruz Admitting Unavailable Shayy Dela Cruz Attending Unavailable Brittani Collier Admitting Unavailable Brittani Collier Attending Unavailable Shayy Dela Cruz Primary Care Unavailable Allergies Allergy Classification Reported Allergen(s) Allergy Type Date of Onset Reaction(s) Facility (1 source) codeine Drug Allergy 9 [facility] Repository (5 sources) Latex; Translations: [LATEX] Drug allergy (disorder) 9 sores on skin [facility] Repository (20 sources) Codeine; Translations: [CODEINE] Drug Allergy 0 nausea [facility] Repository (18 sources) Latex Drug allergy sores on skin [facility] Other (1 source) Codeine Drug Allergy [facility] Repository (1 source) atorvastatin; Translations: [ATORVASTATIN] Drug Allergy 3 [facility] Repository (1 source) Codeine Drug Allergy 4 [facility] Repository (1 source) Latex Drug allergy (disorder) 4 [facility] Repository Medications Current Medications Medication Drug Class(es) Dates Sig (Normalized) Sig (Original) [id number] 60 actuat albuterol 0.09 mg/actuat metered dose [...] Orally Once a day Active Dexcom 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 - (4 sources) Start: Dexcom 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 - as directed as directed 4 x [...] Once a day Active FreeStyle Amrik 3 Hayden - (3 sources) Start: 06-06-2023 FreeStyle Libr e 3 Hayden - as directed invitro 4 times daily [...] angina pectoris; Translations: [Atherosclerotic heart disease of [place] coronary artery without angina pectoris] Onset: 03-24-2022 [...] Chronic Other aftercare (4 sources) 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; Translations: [RETAIL COORDINATOR CURRENT USE OF INSULIN] Onset: 04-08-2022 Episodic Other aftercare (15 sources) Long-term current use of insulin; Translations: [MCC (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 of insulin] Episodic Other connective [...] Onset: 04-08-2022 Episodic Other aftercare (1 source) MCC (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; Translations: [RETAIL COORDINATOR CURRENT USE OF ASPIRIN] Onset: 04-08-2022 Episodic Other aftercare (1 source) 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 helper (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 of oral hypoglycemic drugs; Translations: [RESIDENTIAL USE ORAL HYPOGLYCEMIC DX] Onset: 04-08-2022 Episodic Other aftercare (1 source) Other jail (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 therapy; Translations: [OTH RESIDENTIAL CURRENT DRUG THERAPY] Onset: 11-09-2021 Episodic Other [...] - FINGER STICKon Glucose [Mass/Vol] 360 mg/dL [facility] Other Office Visiton 12-13-2022 Follow-up visit [id number] Arlette Ramos 1970 F Date Provider Department Center 12/13/2022 Jay8-MARQUES MOROCHO [facility]ARD [facility] No family history on file Level of Service:94108 [place] OFFICE/OUTPATIENT ESTABLISHED LOW MDM 20-29 MIN Reason for Visit and Comments: Follow-up [274110] - 4 mo follow up Normal [facility] IGP,Aptima HPV,Age Gdlnon PAP HPV Aptima Negative Normal Negative [facility] Comment on above: Order Comment: COLLE CTION TECHNIQUE:: BROOM-ALONE GYNOCOLOGICAL BODY SITE:: CERVIX ENDOCERVIX Result Comment: This nucleic acid amplification test detects fourteen high- risk HPV types (16,18,31,33,35,39,45,51,52,56,58,59,66,68) without differentiation. PERFORMED BY: [facility] OLEGARIO MARTINEZ [id number] PATHOLOGIST TRANSCRIPTION TYPIST RUBINA RICCI M.D. Performed By: ###Domenica FREEMAN [id number] #### [facility] , Pap Image Guided Note Normal . [facility] Comment on above: Order Comment: COLLE CTION TECHNIQUE:: BROOM-ALONE GYNOCOLOGICAL BODY SITE:: CERVIX ENDOCERVIX Result Comment: TEST S RESULT FLAG UNITS REF RANGE LAB Clinician Provided Cytology Information Source.............Cervix;Endocervix No. of containers..01 ThinPrep Vial Age Algo ACOG Joie... 01 FLAG LEGEND: L-Low Normal,H-High Normal,LL-Alert Low,HH-Alert High <-Panic Low,>-Panic High,A-Abnormal,AA-Critical Abnormal Performed at: 01 =G Dary Torrez [address] [place] [address] Christina Burden MD, Performed By: #### Tejinder FREEMAN [id number] #### [facility] , Result Comment: TEST S RESULT FLAG UNITS REF RANGE LAB DIAGNOSIS: 02 NEGATIVE FOR INTRAEPITHELIAL LESION OR MALIGNANCY. CELLULAR CHANGES ASSOCIATED WITH ATROPHY ARE PRESENT. Specimen adequacy: 02 Satisfactory for evaluation. Endocervical component may not be distinguished in cases of atrophy. Performed by: 02 Rama Baker, Supervisor [employer]illing And Packing ([facility]) . 02 Note: Note 02 The Pap [...] Low,>-Panic High,A-Abnormal,AA-Critical Abnormal Performed at: [address] [address] Christina Burden MD, CBC AUTO DIFFon 08-27-2022 BASO # 0.0 103/ul Normal 0.0-0.1 [facility] Comment on above: Performed By: #### C BC #### [facility] [address] [place] [address] Dr. Sarah Church Basophils/100 WBC (Bld) 0.5 % Normal 0.2-2.0 [facility] Comment on above: Performed By: #### C BC #### [facility] [address] [place] [address] [address] Sarah Church EO # 0.2 103/ul Normal 0.0-0.7 [facility] Comment on above: Performed By: #### C BC #### [facility] [address] [place] [address] Dr. Sarah Church Eosinophils/100 WBC (Bld) 2.2 % Normal 0.9-7.0 [facility] Comment on above: Performed By: #### C BC #### [facility] [address] [place] [address] Dr. Sarah Church Erythrocyte distribution width (RBC) [Ratio] 12.5 % Normal 11.0-15.0 [facility] Comment on above: Performed By: #### C BC #### [facility] [address] [place] [address] Dr. Sarah Church Hematocrit (Bld) [Volume fraction] 44.1 % Normal 36.0-48.0 [facility] Comment on above: Performed By: #### C BC #### [facility] [address] [place] [address] Dr. Sarah Church Hemoglobin (Bld) [Mass/Vol] 15.1 g/dL Normal 12.0-16.0 [facility] Comment on above: Performed By: #### C BC #### [facility] [address] [place] [address] Dr. Sarah Church IG # 0.02 10e3/ul Normal 0.00-0.03 [facility] Comment on above: Performed By: #### C BC #### [facility] [address] [place] [address] Dr. Sarah Church IG % 0.2 % Normal 0.0-0.5 [facility] Comment on above: Performed By: #### C BC #### [facility] [address] [place] [address] Dr. Sarah Church LYMPH # 2.9 103/ul Normal 1.2-3.8 [facility] Comment on above: Performed By: #### C BC #### [facility] [address] [place] [address] Dr. Sarah Church Lymphocytes/100 WBC (Bld) 33.4 % Normal 20.5-60.0 [facility] Comment on above: Performed By: #### C BC #### [facility] [address] [place] [address] Dr. Sarah Church MANUAL DIFF REQ NO Normal [facility] Comment on above: Performed By: #### C BC #### [facility] [address] [place] [address] Dr. Sarah Church MCH (RBC) [Entitic mass] 29.1 pg Normal 26.7-34.0 [facility] Comment on above: Performed By: #### C BC #### [facility] [address] [place] [address] Dr. Sarah Church MCHC (RBC) [Mass/Vol] 34.2 g/dL Normal 29.9-35.2 [facility] Comment on above: Performed By: #### C BC #### [facility] [address] [place] [address] Dr. Sarah Church MCV (RBC) [Entitic vol] 85.0 fL Normal 81.0-99.0 [facility] Comment on above: Performed By: #### C BC #### [facility] [address] [place] [address] Dr. Sarah Church MONO # 0.6 103/ul Normal 0.3-0.8 [facility] Comment on above: Performed By: #### C BC #### [facility] [address] [place] [address] Dr. Sarah Church Monocytes/100 WBC (Bld) 6.8 % Normal 1.7-12.0 [facility] Comment on above: Performed By: #### C BC #### [facility] [address] [place] [address] Dr. Sarah Church NEUT # 4.9 103/ul Normal 1.4-6.5 [facility] Comment on above: Performed By: #### C BC #### [facility] [address] [place] [address] Dr. Sarah Church Neutrophils/100 WBC (Bld) 56.9 % Normal 43.0-75.0 [facility] Comment on above: Performed By: #### C BC #### [facility] [address] [address] [address] Sarah Church Platelet mean volume (Bld) [Entitic vol] 10.8 fL Normal 9.5-13.5 [facility] Comment on above: Performed By: #### C BC #### [facility] [address] [address] [address] Sarah Church PLT 276 103/ul Normal 150-450 [facility] Comment on above: Performed By: #### C BC #### [facility] [address] [place] [address] Dr. Sarah Church RBC 5.19 106/ul Normal 4.20-5.40 [facility] Comment on above: Performed By: #### C BC #### [facility] [address] [place] [address] Dr. Sarah Church WBC 8.6 103/ul Normal 4.0-11.0 [facility] Comment on above: Performed By: #### C BC #### [facility] [address] [place] [address] Dr. Sarah Church LIPID PROFILEon 08-27-2022 CHOL-HDL RATIO NORM SEE BELOW Normal [facility] Comment on above: Result Comment: 3.3 - 4.4 LOW RISK 4.4 - 7.1 AVERAGE RISK 7.1 - 11.0 MODERATE RISK >11.0 HIGH RISK Performed By: #### L IPID, CMP #### [facility] [address] [place] [address] Dr. Sarah Church Cholesterol [Mass/Vol] 110 mg/dL Normal <=200 [facility] Comment on above: Performed By: #### L IPID, CMP #### [facility] [address] [place] [address] Dr. Sarah Church Cholesterol in HDL [Mass/Vol] 33 mg/dL Critically low 40-60 [facility] Comment on above: Performed By: #### L IPID, CMP #### [facility] [address] [place] [address] Dr. Sarah Church Cholesterol in LDL [Mass/Vol] 58.0 mg/dL Normal [facility] Comment on above: Performed By: #### L IPID, CMP #### [facility] [address] [address] [address] Sarah Church Cholesterol.total/C holesterol in HDL [Mass ratio] 3.3 {ratio} Normal [facility] Comment on above: Performed By: #### L IPID, CMP #### [facility] [address] [address] [address] Sarah Church HDL NORMAL > or = 60 mg/dl - LO W CARDIOVASCULAR RISK <40 mg/dl - HIGH CARDIOVASCULAR RISK Normal [facility] Comment on above: Performed By: #### L IPID, CMP #### [facility] [address] [place] [address] Dr. Sarah Church LDL CALC NORMAL SEE BELOW Normal [facility] Comment on above: Result Comment: <100 mg/dl OPTIMAL 100 - 129 mg/dl NEAR OR ABOVE OPTIMAL 130 - 159 mg/dl BORDERLINE HIGH 160 - 189 mg/dl HIGH >190 mg/dl VERY HIGH Performed By: #### L IPID, CMP #### [facility] [address] [place] [address] Dr. Sarah Church Triglyceride [Mass/Vol] 95 mg/dL Normal <=150 [facility] Comment on above: Performed By: #### L IPID, CMP #### [facility] [address] [place] [address] Dr. Sarah Church VLDL CALC 19.0 mg/dL Normal [facility] Comment on above: Performed By: #### L IPID, CMP #### [facility] [address] [place] [address] Dr. Sarah Church PROF 14(COMP METB)on 023 Albumin [Mass/Vol] 3.3 g/dL Critically low 3.4-5.0 [facility] Comment on above: Performed By: #### L IPID, CMP #### [facility] [address] [place] [address] Dr. Sarah Church Albumin/Globulin [Mass ratio] 0.8 {ratio} Normal [facility] Comment on above: Performed By: #### L IPID, CMP #### [facility] [address] [place] [address] Dr. Sarah Church ALP [Catalytic activity/Vol] 100 U/L Normal 46-116 [facility] Comment on above: Performed By: #### L IPID, CMP #### [facility] [address] [address] [address] Sarah Church ALT [Catalytic activity/Vol] 74 U/L Critically high 14-59 [facility] Comment on above: Performed By: #### L IPID, CMP #### [facility] [address] [place] [address] Dr. Sarah Church Anion gap [Moles/Vol] 13.2 mmol/L Normal [facility] Comment on above: Performed By: #### L IPID, CMP #### [facility] [address] [place] [address] Dr. Sarah Church AST [Catalytic activity/Vol] 42 U/L Critically high 15-37 [facility] Comment on above: Performed By: #### L IPID, CMP #### [facility] [address] [place] [address] Dr. Sarah Church Bilirubin [Mass/Vol] 0.4 mg/dL Normal 0.2-1.0 [facility] Comment on above: Performed By: #### L IPID, CMP #### [facility] [address] [place] [address] Dr. Sarah Church Calcium [Mass/Vol] 9.2 mg/dL Normal 8.5-10.1 [facility] Comment on above: Performed By: #### L IPID, CMP #### [facility] [address] [place] [address] Dr. Sarah Church Chloride [Moles/Vol] 99 mmol/L Normal 98-107 [facility] Comment on above: Performed By: #### L IPID, CMP #### [facility] [address] [place] [address] Dr. Sarah Church CO2 [Moles/Vol] 30.4 mmol/L Normal 21.0-32.0 [facility] Comment on above: Performed By: #### L IPID, CMP #### [facility] [address] [place] [address] Dr. Sarah Church Creatinine [Mass/Vol] 0.78 mg/dL Normal 0.55-1.02 [facility] Comment on above: Performed By: #### L IPID, CMP #### [facility] [address] [address] [address] Sarah Church EGFR-AF MACEDONIAN >60 Normal >=60 [facility] Comment on above: Performed By: #### L IPID, CMP #### [facility] [address] [place] [address] Dr. Sarah Church EGFR-NON AF MACEDONIAN >60 Normal >=60 [facility] Comment on above: Performed By: #### L IPID, CMP #### [facility] [address] [place] [address] Dr. Sarah Church Globulin (S) [Mass/Vol] 4.0 g/dL Normal [facility] Comment on above: Performed By: #### L IPID, CMP #### [facility] [address] [place] [address] Dr. Sarah Church Glucose [Mass/Vol] 255 mg/dL Critically high 74-[address] [facility] Comment on above: Performed By: #### L IPID, CMP #### [facility] [address] [place] [address] Dr. Sarah Church Potassium [Moles/Vol] 3.6 mmol/L Normal 3.5-5.1 [facility] Comment on above: Performed By: #### L IPID, CMP #### [facility] [address] [place] [address] Dr. Sarah Church Protein [Mass/Vol] 7.3 g/dL Normal 6.4-8.2 [facility] Comment on above: Performed By: #### L IPID, CMP #### [facility] [address] [place] [address] Dr. Sarah Church Sodium [Moles/Vol] 139 mmol/L Normal 136-145 [facility] Comment on above: Performed By: #### L IPID, CMP #### [facility] [address] [address] [address] Sarah Church Urea nitrogen [Mass/Vol] 8.0 mg/dL Normal 7.0-18.0 [facility] Comment on above: Performed By: #### L IPID, CMP #### [facility] [address] [address] [address] Sarah Church Urea nitrogen/Creatinine [Mass ratio] 10.3 mg/mg Normal [facility] Comment on above: Performed By: #### L IPID, CMP #### [facility] [address] [address] [address] Sarah Church 37on 08-10-2022 37 -Start hydrochlorothiazide 12.5 mg in the morning -Check labs 1 week after starting new medication -Take blood pressure to appointment with Dr. Dela Cruz for correlation [facility] Office Visiton 08-10-2022 Follow-up visit [id number] RichardArlette 1970 F Date Provider Department Center 08/10/2022 [id number] BENITES [facility] No family history on file Level of Service:75059 [place] OFFICE/OUTPATIENT ESTABLISHED MOD MDM 30-39 MIN Reason for Visit and Comments: Coronary Artery Disease [187] Hypertension [225237] Normal [facility] MG MAMM SCREEN 3D ROB CADon 07-20-2022 MG MAMM SCREEN 3D ROB CAD Patient: ZOILA RAMOS Dorothy Exam Date: 07/20/2022 : 1970 Gender:F Ordering : DR SHAYY DELA CRUZ M.D. Admission #: [id number] Family : Order #: [id number] CLICK HERE TO VIEW EXAM RADIOLOGY REPORT PROCEDURE: MAMMOGRAM SCREENING 3D BILATERAL CAD COMPARISON: MAMMO ROB SCREEN W CAD DIG, 05/16/2012. INDICATIONS: Screening mammography Calculator Name NCI Breast Cancer Risk Assessment Tool 5 Year Breast Cancer Risk 1.20% Lifetime Breast Cancer Risk 10.80% Personal Breast Cancer No Personal Ovarian Cancer No Treatments None Family Cancers None LOCATION: [facility] BREAST COMPOSITION: Almost entirely fatty. FINDINGS: [...] Lan M.D. on 07/21/2022 at 08:24 Normal [facility] PROF CHEM 8 (BAS METB)on Anion gap [Moles/Vol] 14.5 mmol/L Normal [facility] Comment on above: Performed By: #### B MP #### [facility] [address] [address] [address] Sarah Church Calcium [Mass/Vol] 9.8 mg/dL Normal 8.5-10.1 [facility] Comment on above: Performed By: #### B MP #### [facility] [address] [address] [address] Sraah Church Chloride [Moles/Vol] 99 mmol/L Normal 98-107 [facility] Comment on above: Performed By: #### B MP #### [facility] [address] [address] [address] Sarah Church CO2 [Moles/Vol] 27.2 mmol/L Normal 21.0-32.0 [facility] Comment on above: Performed By: #### B MP #### [facility] [address] [address] [address] Sarah Church Creatinine [Mass/Vol] 0.80 mg/dL Normal 0.55-1.02 [facility] Comment on above: Performed By: #### B MP #### [facility] [address] [address] [address] Sarah Church EGFR-AF MACEDONIAN >60 Normal >=60 [facility] Comment on above: Performed By: #### B MP #### [facility] [address] [address] [address] Sarah Church EGFR-NON AF MACEDONIAN >60 Normal >=60 [facility] Comment on above: Performed By: #### B MP #### [facility] [address] [address] [address] Sarah Church Glucose [Mass/Vol] 458 mg/dL Critically high 74-[address] [facility] Comment on above: Performed By: #### B MP #### [facility] [address] [address] [address] Sarah Church Potassium [Moles/Vol] 4.7 mmol/L Normal 3.5-5.1 [facility] Comment on above: Performed By: #### B MP #### [facility] [address] [address] [address] Sarah Church Sodium [Moles/Vol] 136 mmol/L Normal 136-145 [facility] Comment on above: Performed By: #### B MP #### [facility] [address] [address] [address] Sarah Church Urea nitrogen [Mass/Vol] 15.0 mg/dL Normal 7.0-18.0 [facility] Comment on above: Performed By: #### B MP #### [facility] [address] [address] [address] Sarah Church Urea nitrogen/Creatinine [Mass ratio] 18.8 mg/mg Normal [facility] Comment on above: Performed By: #### B MP #### [facility] [address] [address] [address] Sarah Church Orders Onlyon 06-04-2022 Orders Only [id number] Arlette Ramos 1970 F Date Provider Department Center 06/04/2022 Harris8-JESSICA STONE [facility] No family history on file Normal [facility] 36on 06-01-2022 36 Patient called and [...] her high cholesterol . HELP!! lol Normal [facility] Orders Onlyon 06-01-2022 Orders Only [id number] Arlette Ramos K 1970 Provider Department Center 06/01/2022 MALCOLM SCHAFER [facility] Leobardo . No family history on file Normal [facility] 36on 05-28-2022 36 Spoke with flaca she states to call in script of losartan 25 mg QD Normal [facility] GLYCOHEMOGLOBIN A1Con 2022 ADA RECOMMENDATION SEE BELOW Normal [facility] Comment on above: Result Comment: ADA RECOMMENDED LIMIT 4.0 - 6.0 ADA THERAPEUTIC TARGET < 7.0 ACTION SUGGESTED > 7.0 Performed By: #### A 1C ####[facility] [id number] [address] Sarah Church Glucose [Mass/Vol] 266 mg/dL Normal [facility] Comment on above: Performed By: #### A 1C ####[facility] [id number] [address]Dr[address] Sarah Church HbA1c (Bld) [Mass fraction] 10.9 % Critically high 4.5-6.2 [facility] Comment on above: Performed By: #### A 1C ####[facility] [id number] [address]Dr[address] Sarah Church Office Visiton 05-19-2022 Follow-up visit [id number] Arlette Ramos Thea 1970 Provider Department Center 05/19/2022 MALCOLM SCHAFER [facility] No family history on file Level of Service:13108 [place] OFFICE/OUTPATIENT ESTABLISHED MOD MDM 30-39 MIN Reason for Visit and Comments: Coronary Artery Disease [187] Hyperlipidemia [182] Normal [facility] XR HIP RT 2 3V W [...] JAVAD VIRGILIORODRÍGUEZ Date: 2022-04-06 21:15 Normal [facility] CBC AUTO DIFFon 11-05-2021 BASO # 0.1 103/ul Normal 0.0-0.1 [facility] Comment on above: Performed By: #### C BC #### [facility] [address] [place] [address] Dr. Sarah Church Basophils/100 WBC (Bld) 0.4 % Normal 0.2-2.0 [facility] Comment on above: Performed By: #### C BC #### [facility] [address] [place] [address] Dr. Sarah Church EO # 0.2 103/ul Normal 0.0-0.7 [facility] Comment on above: Performed By: #### C BC #### [facility] [address] [place] [address] Dr. Sarah Church Eosinophils/100 WBC (Bld) 1.3 % Normal 0.9-7.0 [facility] Comment on above: Performed By: #### C BC #### [facility] [address] [place] [address] Dr. Sarah Church Erythrocyte distribution width (RBC) [Ratio] 12.3 % Normal 11.0-15.0 [facility] Comment on above: Performed By: #### C BC #### [facility] [facility] [address] [place] [address] Dr. Sarah Church Hematocrit (Bld) [Volume fraction] 43.1 % Normal 36.0-48.0 [facility] Comment on above: Performed By: #### C BC #### [facility] [address] [place] [address] Dr. Sarah Church Hemoglobin (Bld) [Mass/Vol] 14.6 g/dL Normal 12.0-16.0 [facility] Comment on above: Performed By: #### C BC #### [facility] [address] [place] [address] Dr. Sarah Church IG # 0.04 10e3/ul Critically high 0.00-0.03 [facility] Comment on above: Performed By: #### C BC #### [facility] [address] [place] [address] Dr. Sarah Church IG % 0.3 % Normal 0.0-0.5 [facility] Comment on above: Performed By: #### C BC #### [facility] [address] [place] [address] Dr. Sarah Church LYMPH # 1.6 103/ul Normal 1.2-3.8 [facility] Comment on above: Performed By: #### C BC #### [facility] [address] [place] [address] Dr. Sarah Church Lymphocytes/100 WBC (Bld) 12.5 % Critically low 20.5-60.0 [facility] Comment on above: Performed By: #### C BC #### [facility] [address] [place] [address] Dr. Sarah Church MANUAL DIFF REQ NO Normal [facility] Comment on above: Performed By: #### C BC #### [facility] [address] [place] [address] Dr. Sarah Church MCH (RBC) [Entitic mass] 29.4 pg Normal 26.7-34.0 [facility] Comment on above: Performed By: #### C BC #### [facility] [address] [place] [address] Dr. Sarah Church MCHC (RBC) [Mass/Vol] 33.9 g/dL Normal 29.9-35.2 [facility] Comment on above: Performed By: #### C BC #### [facility] [address] [place] [address] Dr. Sarah Church MCV (RBC) [Entitic vol] 86.7 fL Normal 81.0-99.0 [facility] Comment on above: Performed By: #### C BC #### [facility] [address] [place] [address] Dr. Sarah Church MONO # 1.0 103/ul Critically high 0.3-0.8 [facility] Comment on above: Performed By: #### C BC #### [facility] [address] [place] [address] Dr. Sarah Church Monocytes/100 WBC (Bld) 7.7 % Normal 1.7-12.0 [facility] Comment on above: Performed By: #### C BC #### [facility] [address] [place] [address] Dr. Sarah Church NEUT # 9.6 103/ul Critically high 1.4-6.5 [facility] Comment on above: Performed By: #### C BC #### [facility] [address] [place] [address] Dr. Sarah Church Neutrophils/100 WBC (Bld) 77.8 % Critically high 43.0-75.0 [facility] Comment on above: Performed By: #### C BC #### [facility] [address] [place] [address] Dr. Sarah Church Platelet mean volume (Bld) [Entitic vol] 11.0 fL Normal 9.5-13.5 [facility] Comment on above: Performed By: #### C BC #### [facility] [address] [place] [address] Dr. Sarah Church PLT 220 103/ul Normal 150-450 [facility] Comment on above: Performed By: #### C BC #### [facility] [address] [place] [address] Dr. Sarah Church RBC 4.97 106/ul Normal 4.20-5.40 [facility] Comment on above: Performed By: #### C BC #### [facility] [address] [place] [address] Dr. Sarah Church WBC 12.4 103/ul Critically high 4.0-11.0 [facility] Comment on above: Performed By: #### C BC #### [facility] [address] [place] [address] Dr. Sarah Church GROUP A STREP CULTUREon 07-0 S. pyogenes Ag (Unsp spec) Culture Observations: NEGATIVE FOR GROUP A STREPTOCOCCUS. Normal [facility] Comment on above: Performed By: #### G RASTCX, SSCRN ####[facility] [address] [address]Dr. Sarah Church POINT OF CARE GLUCOSEon 07-0 Glucose [Mass/Vol] 214 mg/dL Critically high 74-[address] [facility] Comment on above: Performed By: #### P OCGLUC #### [facility] [address] [address] [address] Sarah Church STREPT SCREENon 11-05-2021 STREP SCREEN A Negative Normal NEGATIVE [facility] Comment on above: Performed By: #### G RASTCX SSCRN ####[facility] [address] [address]Dr. Sarah Church CBC AUTO DIFFon 10-16-2021 BASO # 0.1 103/ul Normal 0.0-0.1 [facility] Comment on above: Performed By: #### C BC #### [facility] [address] [place] [address] Dr. Sarah Church Basophils/100 WBC (Bld) 0.8 % Normal 0.2-2.0 [facility] Comment on above: Performed By: #### C BC #### [facility] [address] [place] [address] Dr. Sarah Church EO # 0.3 103/ul Normal 0.0-0.7 [facility] Comment on above: Performed By: #### C BC #### [facility] [address] [place] [address] Dr. Sarah Church Eosinophils/100 WBC (Bld) 3.4 % Normal 0.9-7.0 [facility] Comment on above: Performed By: #### C BC #### [facility] [address] [place] [address] Dr. Sarah Church Erythrocyte distribution width (RBC) [Ratio] 12.6 % Normal 11.0-15.0 [facility] Comment on above: Performed By: #### C BC #### [facility] [address] [place] [address] Dr. Sarah Church Hematocrit (Bld) [Volume fraction] 45.4 % Normal 36.0-48.0 [facility] Comment on above: Performed By: #### C BC #### [facility] [address] [place] [address] Dr. Sarah Church Hemoglobin (Bld) [Mass/Vol] 15.0 g/dL Normal 12.0-16.0 [facility] Comment on above: Performed By: #### C BC #### [facility] [address] [place] [address] Dr. Sarah Church IG # 0.02 10e3/ul Normal 0.00-0.03 [facility] Comment on above: Performed By: #### C BC #### [facility] [address] [place] [address] Dr. Sarah Church IG % 0.2 % Normal 0.0-0.5 [facility] Comment on above: Performed By: #### C BC #### [facility] [address] [place] [address] Dr. Sarah Church LYMPH # 2.7 103/ul Normal 1.2-3.8 [facility] Comment on above: Performed By: #### C BC #### [facility] [address] [place] [address] Dr. Sarah Church Lymphocytes/100 WBC (Bld) 31.0 % Normal 20.5-60.0 [facility] Comment on above: Performed By: #### C BC #### [facility] [address] [place] [address] Dr. Sarah Church MANUAL DIFF REQ NO Normal [facility] Comment on above: Performed By: #### C BC #### [facility] [address] [place] [address] Dr. Sarah Church MCH (RBC) [Entitic mass] 29.3 pg Normal 26.7-34.0 [facility] Comment on above: Performed By: #### C BC #### [facility] [address] [place] [address] Dr. Sarah Church MCHC (RBC) [Mass/Vol] 33.0 g/dL Normal 29.9-35.2 [facility] Comment on above: Performed By: #### C BC #### [facility] [address] [place] [address] Dr. Sarah Church MCV (RBC) [Entitic vol] 88.7 fL Normal 81.0-99.0 [facility] Comment on above: Performed By: #### C BC #### [facility] [address] [address] [address] Sarah Church MONO # 0.6 103/ul Normal 0.3-0.8 [facility] Comment on above: Performed By: #### C BC #### [facility] [address] [place] [address] Dr. Sarah Church Monocytes/100 WBC (Bld) 6.5 % Normal 1.7-12.0 [facility] Comment on above: Performed By: #### C BC #### [facility] [address] [place] [address] Dr. Sarah Church NEUT # 5.0 103/ul Normal 1.4-6.5 [facility] Comment on above: Performed By: #### C BC #### [facility] [address] [place] [address] Dr. Sarah Church Neutrophils/100 WBC (Bld) 58.1 % Normal 43.0-75.0 [facility] Comment on above: Performed By: #### C BC #### [facility] [address] [place] [address] Dr. Sarah Church Platelet mean volume (Bld) [Entitic vol] 11.0 fL Normal 9.5-13.5 [facility] Comment on above: Performed By: #### C BC #### [facility] [address] [place] [address] Dr. Sarah Church PLT 226 103/ul Normal 150-450 [facility] Comment on above: Performed By: #### C BC #### [facility] [address] [place] [address] Dr. Sarah Church RBC 5.12 106/ul Normal 4.20-5.40 [facility] Comment on above: Performed By: #### C BC #### [facility] [address] [address] [address] Sarah Church WBC 8.6 103/ul Normal 4.0-11.0 [facility] Comment on above: Performed By: #### C BC #### [facility] [address] [address] [address] Sarah Church GLYCOHEMOGLOBIN A1Con 2021 ADA RECOMMENDATION SEE BELOW Normal [facility] Comment on above: Result Comment: ADA RECOMMENDED LIMIT 4.0 - 6.0 ADA THERAPEUTIC TARGET < 7.0 ACTION SUGGESTED > 7.0 Performed By: #### A 1C ####[facility] [address] [address]Dr. Sarah Church Glucose [Mass/Vol] 275 mg/dL Normal [facility] Comment on above: Performed By: #### A 1C ####[facility] [address] [address]DrCoretta Church HbA1c (Bld) [Mass fraction] 11.2 % Critically high 4.5-6.2 [facility] Comment on above: Performed By: #### A 1C ####[facility] [address] [address]DrCoretta Church LIPID PROFILEon 10-16-2021 CHOL-HDL RATIO NORM SEE BELOW Normal [facility] Comment on above: Result Comment: 3.3 - 4.4 LOW RISK 4.4 - 7.1 AVERAGE RISK 7.1 - 11.0 MODERATE RISK >11.0 HIGH RISK Performed By: #### L IPID, CMP ####[facility] [address] [address]Dr. Sarah Church Cholesterol [Mass/Vol] 159 mg/dL Normal <=200 [facility] Comment on above: Performed By: #### L IPID, CMP ####[facility] [address] [id number] Church Cholesterol in HDL [Mass/Vol] 41 mg/dL Normal 40-60 [facility] Comment on above: Performed By: #### L IPID, CMP ####[facility] [address] [address]Dr. Sarah Church Cholesterol in LDL [Mass/Vol] 102.6 mg/dL Normal [facility] Comment on above: Performed By: #### L IPID, CMP ####[facility] [address] [address]Dr. Sarah Church Cholesterol.total/C holesterol in HDL [Mass ratio] 3.9 {ratio} Normal [facility] Comment on above: Performed By: #### L IPID, CMP ####[facility] [address] [address]Dr. Sarah Church HDL NORMAL > or = 60 mg/dl - LO W CARDIOVASCULAR RISK <40 mg/dl - HIGH CARDIOVASCULAR RISK Normal [facility] Comment on above: Performed By: #### L IPID, CMP ####[facility] [address] [place], [place] [address]Dr. Sarah Church LDL CALC NORMAL SEE BELOW Normal [facility] Comment on above: Result Comment: <100 mg/dl OPTIMAL 100 - 129 mg/dl NEAR OR ABOVE OPTIMAL 130 - 159 mg/dl BORDERLINE HIGH 160 - 189 mg/dl HIGH >190 mg/dl VERY HIGH Performed By: #### L IPID, CMP ####[facility] [address] [address]Dr. Sarah Church Triglyceride [Mass/Vol] 77 mg/dL Normal <=150 [facility] Comment on above: Performed By: #### L IPID, CMP ####[facility] [address] [address]Dr. Sarah Church VLDL CALC 15.4 mg/dL Normal [facility] Comment on above: Performed By: #### L IPID, CMP ####[facility] [address] [address]Dr. Sarah Church MICROALBUMIN, RAND URon 06-1 mALB 2.0 mg/L Normal <=30.0 [facility] Comment on above: Performed By: #### M ALBR #### [facility] [address] [place], [place] [address] Dr. Sarah Church PROF 14(COMP METB)on 022 Albumin [Mass/Vol] 3.5 g/dL Normal 3.4-5.0 [facility] Comment on above: Performed By: #### L IPID, CMP ####[facility] [address] [id number]. Sarah Church Albumin/Globulin [Mass ratio] 0.8 {ratio} Normal [facility] Comment on above: Performed By: #### L IPID, CMP ####[facility] [address] [address]Dr. Sarah Church ALP [Catalytic activity/Vol] 85 U/L Normal 46-116 [facility] Comment on above: Performed By: #### L IPID, CMP ####[facility] [address] [address]Dr. Sarah Church ALT [Catalytic activity/Vol] 59 U/L Normal 14-59 [facility] Comment on above: Performed By: #### L IPID, CMP ####[facility] [address] [address]Dr. Sarah Church Anion gap [Moles/Vol] 15.1 mmol/L Normal [facility] Comment on above: Performed By: #### L IPID, CMP ####[facility] [address] [address]Dr. Sarah Church AST [Catalytic activity/Vol] 32 U/L Normal 15-37 [facility] Comment on above: Performed By: #### L IPID, CMP ####[facility] [address] [id number]. Sarah Church Bilirubin [Mass/Vol] 0.4 mg/dL Normal 0.2-1.0 [facility] Comment on above: Performed By: #### L IPID, CMP ####[facility] [address] [address]Dr. Sarah Church Calcium [Mass/Vol] 9.0 mg/dL Normal 8.5-10.1 [facility] Comment on above: Performed By: #### L IPID, CMP ####[facility] [address] [address]Dr. Sarah Church Chloride [Moles/Vol] 102 mmol/L Normal 98-107 [facility] Comment on above: Performed By: #### L IPID, CMP ####[facility] [address] [address]Dr. Sarah Church CO2 [Moles/Vol] 30.2 mmol/L Normal 21.0-32.0 [facility] Comment on above: Performed By: #### L IPID, CMP ####[facility] [address] [place], [place] [address]Dr. Sarah Church Creatinine [Mass/Vol] 0.81 mg/dL Normal 0.55-1.02 [facility] Comment on above: Performed By: #### L IPID, CMP ####[facility] [address] [place], [place] [address]Dr. Sarah Church EGFR-AF MACEDONIAN >60 Normal >=60 [facility] Comment on above: Performed By: #### L IPID, CMP ####[facility] [address] [place], [place] [address]Dr. Sarah Church EGFR-NON AF MACEDONIAN >60 Normal >=60 [facility] Comment on above: Performed By: #### L IPID, CMP ####[facility] [address] [place], [place] [address]Dr. Sarah Church Globulin (S) [Mass/Vol] 3.9 g/dL Normal [facility] Comment on above: Performed By: #### L IPID, CMP ####[facility] [address] [place], [place] [address]Dr. Sarah Church Glucose [Mass/Vol] 218 mg/dL Critically high 74-[address] [facility] Comment on above: Performed By: #### L IPID, CMP ####[facility] [address] [place], [place] [address]Dr. Sarah Church Potassium [Moles/Vol] 4.3 mmol/L Normal 3.5-5.1 [facility] Comment on above: Performed By: #### L IPID, CMP ####[facility] [address] [address]Dr. Sarah Church Protein [Mass/Vol] 7.4 g/dL Normal 6.4-8.2 [facility] Comment on above: Performed By: #### L IPID, CMP ####[facility] [address] [place], [place] [address]Dr. Sarah Church Sodium [Moles/Vol] 143 mmol/L Normal 136-145 [facility] Comment on above: Performed By: #### L IPID, CMP ####[facility] [address] [place], [place] [address]Dr. Sarah Church Urea nitrogen [Mass/Vol] 14.0 mg/dL Normal 7.0-18.0 [facility] Comment on above: Performed By: #### L IPID, CMP ####[facility] [address] [place], [place] [address]Dr. Sarah Church Urea nitrogen/Creatinine [Mass ratio] 17.2 mg/mg Normal [facility] Comment on above: Performed By: #### L IPID, CMP ####[facility] [address] [place], [place] [address]Dr. Sarah Church Vital Signs Date Time Vital Sign Value Performing Clinician Facility 05-25-2023 11:00-0500 Body height 157.48 cm Cathie Vargas Other [facility] 05-25-2023 11:00-0500 Body mass index (BMI) [Ratio] 37.23 kg/m2 Cathie Vargas Other [facility] Other 05-25-2023 11:00-0500 Body weight 92.35 kg Cathie Vargas Other [facility] 05-25-2023 11:00-0500 Diastolic blood pressure 71 mm[Hg] Cathie Vargas Other [facility] 05-25-2023 11:00-0500 Respiratory rate 18 /min Cathie Vargas Other [facility] Other 05-25-2023 11:00-0500 SaO2% (BldA) [Mass fraction] 95 % Cathie Vargas Other [facility] Other 05-25-2023 11:00-0500 Systolic blood pressure 139 mm[Hg] Cathie Vargas Other [facility] 04-15-2023 11:00-0500 Body height 157.48 cm Shayy Dela Cruz Other [facility] 04-15-2023 11:00-0500 Body mass index (BMI) [Ratio] 37.49 kg/m2 Shayy Dela Cruz Other [facility] Other 04-15-2023 11:00-0500 Body weight 92.99 kg Shayy Dela Cruz Other [facility] Other 04-15-2023 11:00-0500 Body weight 92.98 kg MD Shayy Dela Cruz Work Phone: [facility] 04-15-2023 11:00-0500 Diastolic blood pressure 84 mm[Hg] Shayy Dela Cruz Other [facility] 04-15-2023 11:00-0500 Systolic blood pressure 142 mm[Hg] Shayy Dela Cruz Other [facility] 06-22-2022 13:30-0500 Body height 157.48 cm Shayy Dela Cruz Other [facility] Other 06-22-2022 13:30-0500 Body mass index (BMI) [Ratio] 36.94 kg/m2 Shayy Dela Cruz Other [facility] Other 06-22-2022 13:30-0500 Body weight 91.63 kg Shayy Dela Cruz Other [facility] Other 06-22-2022 13:30-0500 Diastolic blood pressure 74 mm[Hg] Shayy Dela Cruz Other [facility] Other 06-22-2022 13:30-0500 SaO2% (BldA) [Mass fraction] 97 % Shayy Dela Cruz Other [facility] [employer] Other 06-22-2022 13:30-0500 Systolic blood pressure 112 mm[Hg] Shayy Dela Cruz Other [facility] Other Encounters Encounter Date Encounter Type Care Provider Facility Start: 06-14-2023 ambulatory Brittani Law lity:[facility] Start: 06-14-2023 End: 06-14-2023 ambulatory MD Shayy Dela Cruz Work Phone: [facility] Work Phone: Start: 06-14-2023 End: 06-14-2023 Patient encounter procedure MD Shayy Dela Cruz Work Phone: [facility] Work Phone: Start: 06-06-2023 End: 06-06-2023 ambulatory Shayy Dela Cruz Other [facility] Other Start: 06-06-2023 Telephone encounter Shayy Dela Cruz [facility] Start: 05-25-2023 FQ visit new patient Cathie love [facility] Start: 05-25-2023 End: 05-26-2023 ambulatory MD Shayy Dela Cruz Work Phone: [facility] [employer] Other Start: 05-25-2023 End: 05-25-2023 Discharged Recurring MD Shayy Dela Cruz Work Phone: [facility] Work Phone: Start: 05-25-2023 Registered Recurring MD [facility] Work Phone: Start: 05-25-2023 End: 05-25-2023 Patient encounter procedure MD Shayy Dela Cruz Work Phone: [facility]- Start: 05-12-2023 End: 05-12-2023 ambulatory Shayy Dela Cruz Other [facility] Other Start: 05-12-2023 Telephone encounter Shayy Dela Cruz [facility] Start: 05-10-2023 End: 05-10-2023 ambulatory Shayy Dela Cruz Other [facility] Other Start: 05-10-2023 Telephone encounter Shayy Dela Cruz [facility] Start: 04-22-2023 End: 04-22-2023 ambulatory Shayy Dela Cruz Other [facility] Other Start: 04-22-2023 Telephone encounter Shayy Dela Cruz [facility] Start: 04-20-2023 End: 04-20-2023 ambulatory Lynne Avilat Other [facility] Other Start: 04-20-2023 Telephone encounter Lynneana Avilat [facility] Start: 04-18-2023 End: 04-18-2023 ambulatory Lynneana Avilat Other [facility] Other Start: 04-18-2023 Telephone encounter Lynneana Avilat [facility] Start: 04-15-2023 End: 04-15-2023 ambulatory Shayy Dela Cruz Other [facility] Other Start: 04-15-2023 Office outpatient visit 15 [address] [facility] Start: 04-15-2023 End: 04-15-2023 Patient encounter procedure MD Shayy Dela Cruz Work Phone: [facility] Work Phone: Start: 04-06-2023 End: 04-06-2023 ambulatory Shayy Dela Cruz Other [facility] Other Start: 04-06-2023 Telephone encounter Shayy Dela Cruz [facility] Start: 02-25-2023 End: 02-25-2023 ambulatory Shayy Dela Curz Other [facility] Other Start: 02-25-2023 Telephone encounter Shayy Dela Cruz [facility] Start: 12-13-2022 End: 12-13-2022 ambulatory [facility] Start: 10-29-2022 End: 10-29-2022 ambulatory Shayy Dela Cruz Other [facility] Other Start: 10-29-2022 Telephone encounter Shayy Dela Cruz [facility] Start: 09-20-2022 End: 09-20-2022 ambulatory Shayy Dela Cruz Facility:[facility] Start: 08-27-2022 End: 08-28-[address] SHAYY DELA CRUZ Facility:[facility] Start: 08-10-2022 End: 08-10-2022 ambulatory [facility] Start: 07-20-2022 End: 07-21-[address] SHAYY DELA CRUZ Facility:[facility] Start: 07-19-2022 End: 07-19-2022 ambulatory Shayy Dela Cruz Other [facility] Other Start: 07-19-2022 Telephone encounter Shayy Dela Cruz [facility] Start: 07-12-2022 End: 07-13-[address] SHAYY DELA CRUZ Facility:[facility] Start: 07-05-2022 End: 07-05-2022 ambulatory Shayy Dela Cruz Other [facility] Other Start: 07-05-2022 Telephone encounter Shayy Dela Cruz [facility] Start: 06-28-2022 End: 06-28-2022 ambulatory Shayy Dela Cruz Other [facility] Other Start: 06-28-2022 Telephone encounter Shayy Dela Cruz [facility] Start: 06-22-2022 End: 06-22-2022 ambulatory Shayy Dela Cruz Other [facility] Other Start: 06-22-2022 Office outpatient visit [address] [facility] Start: 05-27-2022 End: 05-27-2022 ambulatory Shayy Dela Cruz Other [facility] Other Start: 05-27-2022 Telephone encounter Shayy Dela Cruz [facility] Start: 05-19-2022 End: 05-20-2022 ambulatory [...] Start: 05-10-2017 End: 05-11-2017 Ambulatory DEFAULT PHYSICIAN Facility:[facility] Start: 05-05-2017 End: 05-06-2017 Ambulatory DEFAULT PHYSICIAN Facility:[facility] Procedures Date Procedure Procedure Detail Performing Clinician Start: 12-13-2022 Follow-up visit Follow-up MARQUES MOROCHO Immunizations Immunization Date Immunization Notes Care Provider Fa cilidarrion 02-01-2022 influenza virus vaccine, split virus (incl. purified surface antigen) Shayy Dela Cruz Other [facility] Other 02-01-2022 influenza virus vaccine, unspecified formulation MD Shayy Dela Cruz Work Phone: [facility] Payers Date Payer Category Payer Medicare [id number] 2022 Self-pay 2021 Medicaid [id number] 2017 Unknown [id number] 1972 Unknown [id number] 2.16.84 0.1.779403.3.579.2.593 1972 Unknown [id number] 2.16.84 0.1.324786.3.579.2.593 1972 Unknown [id number] 2.16.84 0.1.787677.3.579.2.593 1972 Unknown [id number] 2.16.84 0.1.702136.3.579.2.593 1972 Unknown [id number] 2.16.84 0.1.875306.3.579.2.593 1972 Unknown [id number] 2.16.84 0.1.539964.3.579.2.593 1972 Unknown [id number] 2.16.84 0.1.180210.3.579.2.593 1972 Unknown [id number] 2.16.84 0.1.945089.3.579.2.593 1972 Unknown [id number] 2.16.84 0.1.153585.3.579.2.593 1957 Medicaid [id number] . .[id number] 1957 Medicare [id number] . .[id number] Unknown Unknown [id number] .16.8 40.1.116063.3.579.2.531 Unknown [id number] .16. 40.1.910713.3.579.2.531 Unknown [id number] .16. 40.1.415430.3.579.2.531 Social History Date Type Detail Facility Unknown if ever smoked [facility] Other Sex Assigned At Sex Assigned At Bir th [facility] Other Start: 1970 Sex Assigned At Female F [facility] Medical Equipment Procedure Code Equipment Code Equipment Original Text Equi pment Identifier Dates Clinical Notes 01-11-2022 to 06-06-2023 Note Date & Type Note Facility 06-06-2023 Evaluation note Encounter Date Diagnosis Assessment Notes Jun, Controlled type 2 diabetes mellitus with hyperglycemia, unspecified whether long lines operator insulin use (ICD-10 - E11.65) [facility] Other 01-24-2024 Evaluation note* Encounter Date Diagnosis [...] issues. 6. Prescriptions: New patient 05-25-2023 uses [facility]. 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 She was taught how to use the [...] educating the patient by Nguyễn Norwood RN, [facility]. [facility] Other 12-15-2023 Evaluation note* Encounter Date Diagnosis Assessment Notes Treatment Notes Treatment Clinical Notes Apr, Type 2 diabetes mellitus with hyperglycemia (ICD-10 - E11.65) Rx handwritten for diabetic shoes. Pt agrees to referral to specialty clinic. Continue present meds and discussed healthy diet in meantime. Apr, MCC (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 of insulin (ICD-10 - Z79.4) [facility] Other 08-14-2023 NoteCardiology Clinic Note Subjective Zoila [...] Active Problem List Diagnosis Coronary arteriosclerosis in sho[place] artery Old myocardial infarction Sinusitis Type 1 [...] the IVC. Mitral V (more content not included)...[facility] 08-10-2022 NoteCardiology Clinic Note Subjective Zoila [...] Active Problem List Diagnosis Coronary arteriosclerosis in sho[place] artery Old myocardial infarction Sinusitis Type 1 [...] in size. The (more content not included)... [facility]02-21-2023 Evaluation note* Encounter Date Diagnosis Assessment Notes Treatment Notes Treatment Clinical Notes Jun, Acute non-recurrent maxillary sinusitis (ICD-10 - J01.00) Jun, Controlled type 2 diabetes mellitus with hyperglycemia, unspecified whether long lines operator insulin use (ICD-10 - E11.65) Once again advised management at diabetes clinic. She declines and will continue meds, followup in 3 months, and recheck labs at that time. She is eating more of a keto diet and is certain that is helping her A1C improve. Jun, Screening mammogram for breast cancer (ICD-10 - Z12.31) Zoila will call for an appt [facility] Other 01-31-2023 NoteIn light of elevated LDL will change simvastatin to lipitor 40 mg daily. Will repeat liver function and lipid level in 2 months. Staff to notify pt. Malcolm Evans [employer] Division of Cardiology, [facility] Ph- [phone] Pager- [phone] Email- [email or web address]-2023 NotePatient here for 1 year follow [...] light-headedness. All other systems reviewed and are negative.[facility] 05-19-2022 NoteUTP CARDIOLOGY PROGRESS NOTE HPI: [...] past 12 months Assessment/Plan: Coronary arteriosclerosis in [place] artery Coronary artery disease is stable, no [...] week RTC 1 month to review B/P [facility]01-18-2023 Note Hypertension is uncontrolled, Will add lisinopril 5 mg po daily, and continue metoprolol Goal b/p 130/80 or less, monitor for dry persistent cough- call office for any concerns, repeat BMP in 1 week RTC 1 month to review B/P [facility]01-18-2023 Note Coronary artery disease is stable, no concerning symptoms continue risk factor modifications- heart healthy diet, regular exercise as tolerated and continue all medications.[facility] 04-15-2022 NotePROCEDURE: XR FOOT LT MIN [...] Electronically authenticated by: NARINDER LAN Date: 2022-04-15 06:08[facility]09-12-2022 NotePROCEDURE: XR TOES RT MIN 2 V HISTORY: Pain of toe of right foot ; first toe pain following injury COMPARISON: None. FINDINGS: BONES:No fracture, acute abnormality, or significant arthropathy. SOFT TISSUES:No visible soft tissue swelling. EFFUSION:None visible. OTHER: Negative. IMPRESSION: 1. No acute bone abnormality. 2. Mild degenerative joint disease. Electronically authenticated by: NARINDER LAN Date: 2022-01-11 18:48[facility] for [facility] Narrative* Chief Complaint 3 Month Follow Up Referral Dr. Negro LAGUERRE download [facility] Work Phone: Chief complaint+Reason for visit Narrative* Chief Complaint 3 Month Follow Up Referral Dr. Negro LAGUERRE download Reason for Visit Type 2 diabetes holli itus [facility] Work Phone: Evaluation noteNo InformationNort [employer] Other Evaluation noteNo assessment information available [facility] Work Phone: Evaluation note* Diagnosis Onset Date Resolution Status Type 2 diabetes mellitus acu te [facility] Work Phone: History general Narrative - Reported* Type Description Date Medical History Herpes labialis Medical History Candidiasis of mouth Medical History Type 2 diabetes holli itus with diabetic polyneuropathy, unspecified whether jail insulin use Medical History Controlled type 2 di abetes mellitus with hyperglycemia, unspecified whether long lines operator insulin use Medical History Obesity Medical History Dyslipidemia Medical History CAD in [place] artery Medical History Asthma, intermittent Medical History [...] History appendectomy Surgical History 7 stents 1999 [facility] Other Histykb general Narrative - Reported* Type Description Date Medical History Herpes labialis Medical History Candidiasis of mouth Medical History Type 2 diabetes holli itus with diabetic polyneuropathy, unspecified whether long lines operator insulin use Medical History Controlled type 2 di abetes mellitus with hyperglycemia, unspecified whether long lines operator insulin use Medical History Obesity Medical History Dyslipidemia Medical History CAD in [place] artery Medical History Asthma, intermittent Medical History [...] stents 1999 Hospitalization History see surgical history [facility] Other History general Narrative - Reported* Type Description Date Medical History Herpes labialis Medical History Candidiasis of mouth Medical History Type 2 diabetes holli itus with diabetic polyneuropathy, unspecified whether long lines operator insulin use Medical History Controlled type 2 di abetes mellitus with hyperglycemia, unspecified whether jail insulin use Medical History Obesity Medical History Dyslipidemia Medical History CAD in [place] artery Medical History Asthma, intermittent Medical History [...] coronary 1999 Hospitalization History see surgical history [facility] Other Summary Purpose Family History No Family [...] Jose De Jesus Referring Provider Specialty Family [facility] Referred Organization [facility] Referred Provider Marcia Mendes Referred Address [address] [place] [address],[address],[place], [place],[address] Referred Provider Specialty Nurse Huey saldaña Referral Priority Routine General Notes Heather Jenkins 01:25:59 PM >received today, notes locked, insurance attached, referral faxed Additional Source Comments INFORMATION SOURCE (unrecogn ized section and content) DATE CREATED AUTHOR 10/25/2017 [facility] DATE CREATED AUTHOR AUTHOR'S ORGANIZ ATION 09/03/2022 [facility] DATE CREATED AUTHOR AUTHOR'S ORGANIZ ATION 12/13/2022 [facility] DATE CREATED AUTHOR AUTHOR'S ORGANIZ ATION 07/01/2023 [facility] REASON FOR VISIT (unrecogniz ed section and content) labsmessage3 MONTH FOLLOW UP ACrefillmessagemessageRefill3 month Follow upDM IkrymyalI2nEB ReferralrefillsNo InformationRefillReferral Dr. Negro Gallegos sensor running [...] BE BASED ON THE PRIMARY CLINICAL RECORDS. [facility]. provides no warranty or guarantee of the accuracy or completeness of information in this document.
== END 2023-07-18 09:21 | disposition home or self-care (01) ==
LOC: EC 09:20
PROVIDERS: PCP Family Medicine; Visit Provider Orthopaedic Surgery
DX: S52.691D Other fracture of lower end of right ulna, subsequent encounter for closed fracture with routine healing (principal)
CPT/HCPCS: 73110

== ENCOUNTER 2023-08-29 10:22 | Outpatient (OUT) | payer MEDICARE, MEDICAID, SELFPAY ==
--- NOTE | 2023-08-29 | XR_ITS ---
The [address] [address] Patient Name: COLETTE DINH MRN: [id number] date: 1970 Sex: F Assigned Patient Location: Current Patient Location: Accession/Order Number: [id number] Exam Date: 08/29/2023 10:25 Report Date: 08/29/2023 13:38 At the request of: COLTEN ENCARNACION Procedure: XR wrist RT min 3V EXAM: XR wrist RT min 3V HISTORY: RIGHT WRIST PAIN COMPARISON: 07/18/2023 TECHNIQUE: 3 views the right wrist were obtained. FINDINGS: There is been progressive osseous healing of the fracture of the distal ulna previously noted. No acute fracture or dislocation is otherwise identified. Diffuse osteopenia is noted. The joint spaces are intact throughout. Arteriovascular calcifications are noted. XR/XR wrist RT min 3V IMPRESSION: Continued progressive healing of the fracture of the distal ulna. Fracture lines are not readily visualized. Electronically authenticated by: JORDYN PAIGE Date: 08/29/2023 13:38
--- OUTSIDE RECORDS SUMMARY | 2023-08-29 10:38 | XMS_ITS | CCD ---
Author Organization [facility] Care Team Providers Care Customer Trainer Name Role Phone PHYSICIAN, DEFAULT Unavailable Unavailable PHYSICIAN, DEFAULT Unavailable Unavailable NADERER MATT Unavailable Unavailable PHYSICIAN, DEFAULT Unavailable Unavailable PHYSICIAN, DEFAULT Unavailable Unavailable NADERER MATT Unavailable Unavailable Shayy Dela Cruz Unavailable JOSE DE JESUS, DR SHAYY Reyes Primary Care Unavailable MALCOLM EVANS Consulting Unavailable MALCOLM EVANS Attending Unavailable MALCOLM EVANS Admitting Unavailable DELA CRUZ, DR SHAYY Reyes Consulting [...] e MARKER ., DR FOWLER Admitting Unavailable AHDOOTJAVAD Consulting Unavailable HAY ., DR CARPIO Consulting [...] DELA CRUZ, DR SHAYY Reyes Consulting Unavailable MARQUES MOROCHO Attending Unavailable WITHERELL, SHELMITH Attending Unavailable MALCOLM EVANS Attending Unavailable Lynne Hernandez Unavailable Cathie Vargas Unavailable MD Shayy Dela Cruz Primary Care Provider [phone] MD Shayy Dela Cruz Attending Provider Shayy Dela Cruz Admitting Unavailable Shayy Dela Cruz Primary Care Unavailable Shayy Dela Cruz Attending Unavailable Shayy Dela Cruz Admitting Unavailable Shayy Dela Cruz Attending Unavailable Brittani Collier Admitting Unavailable Brittani Collier Attending Unavailable Shayy Dela Cruz Primary Care Unavailable MD Shayy Dela Cruz Primary Care Provider MD Shayy Dela Cruz Attending Provider Allergies Allergy Classification Reported Allergen(s) Allergy Type Date of Onset Reaction(s) Facility (1 source) codeine Drug Allergy 9 [facility] Repository (9 sources) Latex; Translations: [LATEX] Drug allergy (disorder) 9 sores on skin [facility] Repository (20 sources) Codeine; Translations: [CODEINE] Drug Allergy 0 nausea [facility] Repository (18 sources) Latex Drug allergy sores on skin [facility] Other (1 source) Codeine Drug Allergy [facility] Repository (1 source) atorvastatin; Translations: [ATORVASTATIN] Drug Allergy 3 [facility] Repository (1 source) Codeine Drug Allergy 4 [facility] Repository (1 source) Latex Drug allergy (disorder) 4 [facility] Repository Medications Current Medications Medication Drug Class(es) Dates Sig (Normalized) Sig (Original) [id number] 200 actuat albuterol 0.09 mg/actuat metered dose inhaler (20 sources) beta2-Adrenergic Agonist Start: 07-28-2023 take 1 puff(s) by inhalation every four hours Albuterol Sulfate Active 2 PUFF INHALATION Every 4 hours July 28, 2023 12:00am take 2 puff(s) by in halation every [...] aspirin 81 mg delayed release oral tablet (8 sources) Platelet Aggregation Inhibitor, Nonsteroidal Anti-inflammatory Drug Start: Aspirin (Adult Low Dose Aspirin) 81 mg tablet,delayed release (DR/EC) Active 81 MG PO Daily July 06, 2023 1:00am take 1 tablet by bin th every twenty-four hours Aspirin Adult Low Dose 81 MG 1 tablet Orally Once a day Active atorvastatin 40 mg oral tablet (13 sources) HMG-CoA Reductase Inhibitor Start: 07-06-2023 End: 07-19-2023 take 40 mg by mouth once daily Atorvastatin Active 40 MG PO Daily July 19, 2023 12:00am Start: 05-12-2023 take 1 tablet by bin th every twenty-four hours Atorvastatin Calcium 40 MG 1 tablet Orally Once a day for 90 days May, Active Blood-Glucose Meter,Continuous (Freestyle Amrik 3 [place]) misc (3 sources) Start: 07-28-2023 Blood-Glucose Meter,Continuous (Freestyle Amrik 3 [place]) misc Active EACH .ROUTE .MEDSUPPLY July 28, 2023 12:00am As directed Blood-Glucose Sensor (Freestyle Amrik 3 Sensor) device (3 sources) Start: 07-28-2023 Blood-Glucose Sensor (Freestyle Amrik 3 Sensor) device Active EACH .ROUTE .MEDSUPPLY July 28, 2023 12:00am As directed carvedilol 6.25 mg oral tablet (15 sources) alpha-Adrener gic Petty, beta-Adrenerg ic Petty Start: 07-06-2023 take 1 tablet by mouth once daily at mealtime Carvedilol Active 6.25 MG PO Daily July 06, 2023 1:00am FreeTextSi tablet with food Orally once a day; Note: Source Status: Taking; Refills: 3; Qty: 90 Tablet; Provider: Jose De Jesus Reyes take 1 tablet by bni th every twenty-four hours Carvedilol 6.25 MG 1 tablet with food Orally once a day for 90 days Active cetirizine hydrochloride 10 mg oral tablet (12 sources) Histamine-1 Receptor Antagonist take 1 tablet by mouth every twenty-four hours ZyrTEC Allergy 10 MG 1 tablet Orally Once a day Active Dexcom G7 [place]oconut Boiler - (4 sources) Start: 06-03-19 24 Dexcom G7 [place] Boiler - as directed as directed 4 x daily for 365 days E 11.65, Z 79.4 Jun, Active Dexcom G7 Sensor - (4 sources) Start: 06-03-19 24 Dexcom G7 Sensor - as directed in vitro every 10 days for 90 days E 11.65, Z79.4 Jun, Active esomeprazole 40 mg delayed release oral capsule (20 sources) Proton Pump Inhibitor Start: 07-06-19 24 take 1 capsule by mouth once daily Esomeprazole Magnesium Active 40 MG PO Daily July 06, 2023 1:00am FreeTextSig: TAKE ONE CAPSULE BY MOUTH DAILY 90; Note: Source Status: Taking; Refills: 1; Qty: 90 Each; Provider: Jose De Jesus Reyes take 1 capsule by mouth once johnathon ly Esomeprazole Magnesium 40 mg TAKE ONE CAPSULE BY MOUTH DAILY 90 for 90 Active famotidine 20 mg oral tablet (1 source) Histamine-2 Receptor Antagonist Start: 08-22-2023 take 20 mg by mouth once daily at bedtime Famotidine Active 20 MG PO Daily at bedtime August 22, 2023 12:00am fluticasone (20 sources) Corticosteroid Start: 07-28-2023 take 1 puff(s) by inhalation twice daily Fluticasone Propionate Active 2 PUFF INHALATION Twice daily July 28, 2023 12:40pm Start: 07-06-2023 take 2 spray(s) nasa l route once daily Fluticasone Propionate Active 2 SPRAY INTRANASAL Daily July 06, 2023 1:00am FreeTextSi spray in each nostril Nasally Once a day; Note: Source Status: Taking; Provider: Sam Brand ( ) Start: 07-06-2023 End: 07-28-2023 take 2 puff(s) by mouth twice daily Fluticasone Propionate Discontinued INHALATION July 06, 2023 1:00am July 28, 2023 12:43pm FreeTextSig: INHALE 2 PUFFS BY MOUTH TWICE A DAY; Note: Source Status: Taking; Refills: 1; Qty: 36 Gram; Provider: Jose De Jesus Lucas ( ) Start: 07-06-2023 take 2 puff(s) by mo uth twice daily Fluticasone Propionate Active INHALATION July 06, 2023 1:00am FreeTextSig: INHALE 2 PUFFS BY MOUTH TWICE A DAY; Note: Source Status: Taking; Refills: 1; Qty: 36 Gram; Provider: Jose De Jesus Lucas ( ) take 2 puff(s) by mo uth twice daily Flovent HFA 110 MCG/ACT INHALE 2 PUFFS BY MOUTH TWICE A DAY for 90 Active take 2 spray(s) nasa l route once daily Fluticasone Propionate 50 MCG/ACT 2 spray in each nostril Nasally Once a day Active take 2 spray(s) nasa l route once daily Fluticasone Propionate 50 MCG/ACT 2 spray in each nostril Nasally Once a day Active FreeStyle Amrik 3 [place] - (3 sources) Start: 06-06-2023 FreeStyle Libr e 3 [place] - as directed invitro 4 times daily for 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 Jun, Active FreeStyle Amrik 3 Sensor - (3 sources) Start: 06-06-2023 FreeStyle Libr e 3 Sensor - as directed invitro change every 14 days for 84 days Dx E11.65 Jun, Active glipiZIDE 10 mg oral tablet (20 sources) Sulfonylurea Start: 08-24-2023 take 5 mg by mouth twice daily at mealtime Glipizide Active 5 MG PO Twice daily August 24, 2023 2:14pm FreeTextSig: take 5 mg twice daily with meals; Note: Source Status: Continue; Provider: Sam Brand Start: 07-06-2023 End: 08-24-2023 take 1 tablet by mouth twice daily at mealtime Glipizide Discontinued 10 MG PO Twice daily July 06, 2023 1:00am August 24, 2023 2:15pm FreeTextSig: take 1 tablet twice daily with meals; Note: Source Status: Continue; Provider: Jose De Jesus Reyes glipiZIDE 10 mg take 1 tablet twice daily with meals Active take 2 tablets by mo uth twice daily glipiZIDE 10 mg TAKE 2 [...] UNDER SKIN TWICE DAILY for 79 Active Insulin Glargine U-300 Conc (Toujeo Solostar U-300 Insulin) 300 unit/mL (1.5 mL) insulin pen (8 sources) Start: 08-24-2023 Insulin Glargi ne U-300 Conc (Toujeo Solostar U-300 Insulin) 300 unit/mL (1.5 mL) insulin pen Active 76 UNIT SUBCUT Daily August 24, 2023 2:13pm Start: 07-28-2023 End: 08-24-2023 Insulin Glargine U-300 Conc (Toujeo Solostar U-300 Insulin) 300 unit/mL (1.5 mL) insulin pen Discontinued 78 UNIT SUBCUT Daily July 28, 2023 12:38pm August 24, 2023 2:15pm Start: 07-28-2023 Insulin Glargi ne U-300 Conc (Toujeo Solostar U-300 Insulin) 300 unit/mL (1.5 mL) insulin pen Active 78 UNIT SUBCUT Daily July 28, 2023 12:38pm Start: 07-06-2023 End: 07-28-2023 Insulin Glargine U-300 Conc (Toujeo Solostar U-300 Insulin) 300 unit/mL (1.5 mL) insulin pen Discontinued UNIT SUBCUT July 06, 2023 1:00am July 28, 2023 12:43pm FreeTextSi u Subcutaneous daily; Note: Source Status: Continue; Provider: Jose De Jesus Reyes Start: 07-06-2023 Insulin Glargi ne U-300 Conc (Toujeo Solostar U-300 Insulin) 300 unit/mL (1.5 mL) insulin pen Active UNIT SUBCUT July 06, 2023 1:00am FreeTextSi u Subcutaneous daily; Note: Source Status: Continue; Provider: Jose De Jesus Reyes Insulin Lispro (Humalog Kwikpen Insulin) 100 unit/mL insulin pen (11 sources) Start: 07-28-2023 inject 1 dose by subcutaneous injection once before mealtime Insulin Lispro (Humalog Kwikpen Insulin) 100 unit/mL insulin pen Active 1 sliding scale dose SUBCUT 3x/Day before meals & bedtime July 28, 2023 12:39pm Start: 07-08-2023 End: 07-28-2023 Insulin Lispro (Humalog Kwik pen Insulin) 100 unit/mL insulin pen Discontinued SUBCUT July 08, 2023 10:01am July 28, 2023 12:43pm Start: 07-08-2023 Insulin Lispro (Humalog Kwikpen Insulin) 100 unit/mL insulin pen Active SUBCUT July 08, 2023 10:01am Start: 07-06-2023 End: 07-08-2023 Insulin Lispro (Humalog Kwik pen Insulin) 100 unit/mL insulin pen Discontinued SUBCUT July 06, 2023 1:00am July 08, 2023 10:08am FreeTextSig: ISS 1:10 and ICF 1:5 Subcutaneous 4 x daily; Note: Source Status: ContinueExpect up to 120 u per day; Provider: Sam Calvillo isopropyl alcohol 0.7 ml/ml medicated pad (17 sources) Start: 07-06-2023 Alcohol Swabs Active PAD TOPICAL July 06, 2023 1:00am FreeTextSig: as directed 4 times a day; Note: Source Status: Taking; Refills: 3; Provider: Jose De Jesus Reyes Alcohol Swabs - as directed 4 times a day for 30 days Active Alcohol Swabs - as directed Active losartan potassium 25 mg oral tablet (20 sources) Angiotensin 2 Receptor Petty Start: 07-28-2023 take 25 mg by mouth once daily Losartan Active 25 MG PO Daily July 28, 2023 12:00am Start: 07-06-2023 End: 07-19-2023 take 1 tablet by mouth once daily Losartan Discontinued 1 TAB PO Daily July 06, 2023 1:00am July 19, 2023 11:12am FreeTextSi tablet Orally Once a day; Note: Source Status: Taking; Provider: Sam Brand ( ) take 1 tablet by bin th every twenty-four hours Losartan Potassium 25 MG 1 tablet Orally Once a day Active metFORMIN hydrochloride 1000 mg oral tablet (20 sources) Biguanide Start: 07-06-2023 End: 07-19-2023 take 1 tablet by mouth once daily Metformin Active 1000 MG PO Daily July 19, 2023 11:06am FreeTextSi tablet with a meal Orally Once a day; Note: Source Status: Continue; Provider: Jose De Jesus Reyes take 1 tablet by bin th every twenty-four hours metFORMIN HCl 1000 mg [...] day Active montelukast 10 mg oral tablet (20 sources) Leukotriene Receptor Antagonist Start: 07-06-19 take 1 tablet by mouth once daily Montelukast (Singulair) 10 mg tablet Active 1 TAB PO Daily July 06, 2023 1:00am FreeTextSi tablet Orally Once a day; Note: Source Status: Taking; Provider: Sam Brand ( ) take 1 tablet by bin th every twenty-four hours Singulair 10 MG 1 [...] FOUR TIMES A DAY for 30 Active simethicone 125 mg oral caps ule (3 sources) Start: 07-28-2023 Simethicone (G as-X Extra Strength) 125 mg capsule Active 125 MG PO 1 to 2 times per day July 28, 2023 12:00am Completed/Discontinued Medications Medication Drug Class(es) Dates Sig (Normalized) Sig (Original) azithromycin 250 mg oral tablet (18 sources) Macrolide Antimicrobial Start: 06-22-2022 Azithromycin 250 MG as directed Orally 2 tabs po today, then 1 tab daily x 4 more days for 5 Jun, Not-Taking/PRN Insulin Aspart U-100 (Novolog Flexpen U-100 Insulin) 100 unit/mL (3 mL) insulin pen (4 sources) Start: 07-12-2023 End: 07-19-2023 inject 1 dose by subcutaneous injection once daily Insulin Aspart U-100 (Novolog Flexpen U-100 Insulin) 100 unit/mL (3 mL) insulin pen Discontinued 1 sliding scale dose SUBCUT Use as Directed July 12, 2023 12:00am July 19, 2023 11:10am ICR 1:5, ISS 1:10, expect up to 100 u per day. Did not tolerate Lispro 3 ml insulin lispro 200 unt/ml pen injector (20 sources) Insulin Analog Start: 07-08-2023 End: 07-19-2023 Insulin Lispro (Humalog Kwikpen Insulin) 200 unit/mL (3 mL) insulin pen Discontinued 1 sliding scale dose SUBCUT Use as Directed July 08, 2023 1:00am July 19, 2023 11:11am icr 1:5, iss 1:10, EXPECT UP TO 100 U PER DAY, HAS WRITTEN INSTRUCTIONS HumaLOG KwikPen 100 UNIT/ML ISS 1:10 and ICF 1:5 Subcutaneous 4 x daily for 90 days Expect up to 120 u per day Active Semaglutide (2 sources) Start: 07-28-2023 End: 08-19-2023 Semaglutide (Ozempic) 0.25 mg or 0.5 mg (2 mg/3 mL) pen injector Discontinued 0.25 MG SUBCUT every week 1.84 30 July 28, 2023 12:00am August 19, 2023 10:52am for 4 weeks simvastatin 20 mg oral tablet (20 sources) HMG-CoA Reductase Inhibitor Start: 07-06-2023 End: 07-19-2023 take 1 tablet by mouth once daily in the evening Simvastatin Discontinued 1 TAB PO Daily July 06, 2023 1:00am July 19, 2023 11:07am FreeTextSi tablet in the evening Orally Once a day; Note: Source Status: Not-Taking\PRN; Provider: Sam Brand ( ) take 1 tablet by bin th every twenty-four hours Simvastatin 20 MG 1 tablet in the evenin g Orally Once a day Not-Taking/PRN tiZANidine 4 mg oral tablet (20 sources) Central alpha-2 Adrenergic Agonist Start: 07-06-2023 End: 07-19-2023 take 1 tablet by mouth three times daily as needed Tizanidine Discontinued 4 MG PO Three times daily July 06, 2023 1:00am July 19, 2023 11:08am FreeTextSi tablet as needed Orally Three times a day; Note: Source Status: Not-Taking\PRN; Provider: Sam Brand ( ) take 1 tablet by bin th every eight hours tiZANidine HCl 4 MG 1 tablet as needed O rally Three times a day Not-Taking/PRN Problems Active Problems Problem Classification Problem Date Documented Date Episodic/Chronic Acquired foot deformities (18 sources) Acquired deformity of toe of left foot; Translations: [Acquired deformities of toe(s), unspecified, left foot] Episodic Acquired foot deformities (18 sources) Acquired deformity of toe; Translations: [Acquired deformities of toe(s), unspecified, right foot] Episodic Administrative/social admission (6 sources) Dietary counseling and surveillance; Translations: [Patient encounter status] Episodic Asthma (19 sources) Intermittent asthma; Translations: [Mild intermittent asthma, uncomplicated] Onset: 11-09-2021 Chronic Coronary atherosclerosis and other heart disease (20 sources) Atherosclerosis of coronary artery without angina pectoris; Translations: [Atherosclerotic heart disease of [place] coronary artery without angina pectoris] Onset: 03-24-2022 Chronic Diabetes mellitus with complications (20 sources) Hyperglycemia due to type 2 diabetes mellitus; Translations: [Type 2 diabetes mellitus with hyperglycemia] Onset: 05-19-2022 Chronic Diabetes mellitus without complication (18 sources) Type 2 diabetes mellitus without complications; Translations: [Type 2 diabetes mellitus] Onset: 04-08-2022 06-14-2023 Chronic Disorders of lipid metabolism (20 sources) Dyslipidemia; Translations: [Hyperlipidemia, unspecified] Onset: 11-09-2021 Chronic Esophageal disorders (20 sources) Gastroesophageal reflux disease; Translations: [Gastro-esophageal reflux disease without esophagitis] Onset: 11-09-2021 08-19-2023 Chronic Essential hypertension (13 sources) Essential (primary) hypertension; Translations: [Hypertensive disorder] Onset: 05-19-2022 Chronic Fracture of upper limb (6 sources) Fracture at wrist and/or hand level; Translations: [Fracture of unspecified carpal bone, right wrist, initial encounter for closed fracture] 07-19-2023 Episodic Mycoses (18 sources) Candidiasis of mouth; Translations: [Candidal stomatitis] Episodic Nutritional deficiencies (10 sources) Vitamin D deficiency; Translations: [Vitamin D deficiency, unspecified] Chronic Osteoarthritis (1 source) Unspecified osteoarthritis, unspecified site; Translations: [UNSPECIFIED OSTEOARTHRITIS UNS SITE] Onset: 11-09-2021 Chronic Other aftercare (6 sources) FPC (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 of insulin; Translations: [Long-term (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 of insulin] Onset: 04-08-2022 Episodic Other aftercare (18 sources) Long-term current use of insulin; Translations: [FPC (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 of insulin] 07-28-2023 Episodic Other connective tissue disease (20 sources) Pain in limb; Translations: [Pain in right toe(s)] Episodic Other connective tissue disease (5 sources) Pain in left foot; Translations: [PAIN IN LEFT FOOT] Onset: 04-14-2022 Episodic Other connective tissue disease (6 sources) Pain in right toe(s); Translations: [PAIN IN RIGHT TOES] Onset: 01-11-2022 Episodic Other injuries and conditions due to external causes (3 sources) Fracture of bone; Translations: [Other injury of unspecified body region, initial encounter] 07-28-2023 Episodic Other non-traumatic joint disorders (5 sources) [...] Chronic Other nutritional; endocrine; and metabolic disorders (4 sources) Body mass index (BMI) 37.0-37.9, adult; Translations: [Body Mass Index 37.0-37.9, adult] Chronic Other nutritional; endocrine; and metabolic disorders (3 sources) Body mass index 30+ - obesity; Translations: [Body mass index (BMI) 37.0-37.9, adult] 07-28-2023 Chronic Other screening for suspected conditions (not [...] source) FPC (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; Translations: [GENERAL ENGINEER CURRENT USE OF ASPIRIN] Onset: 04-08-2022 Episodic Other aftercare (1 source) FPC (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 of oral hypoglycemic drugs; Translations: [ALF USE ORAL HYPOGLYCEMIC DX] Onset: 04-08-2022 Episodic Other aftercare (1 source) Other superintendent container terminal (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 therapy; Translations: [OTH GENERAL ENGINEER CURRENT DRUG THERAPY] Onset: 11-09-2021 Episodic Other [...] Test Name Value Interpretation Reference Range Facility HbA1c HPLC (Bld) [Mass fract ion]on 07-28-2023 HbA1c (Bld) [Mass fraction] 10.3 % [facility] No Panel Informationon 07-27 Bedside Glucose 126 [facility] Basophils Auto (Bld) [#/Vol] on 07-12-2023 Basophils (Bld) [#/Vol] 0.0 10 3/uL 0.0-0.1 [facility] Basophils/100 WBC Auto (Bld) on 07-12-2023 Basophils/100 WBC (Bld) 0.5 % 0.2-2.0 [facility] Eosinophils/100 WBC Auto (Bl d)on 07-12-2023 Eosinophils/100 WBC (Bld) 1.5 % 0.9-7.0 [facility] Erythrocyte distribution wid th Auto (RBC) [Ratio]on 07-12-2023 Erythrocyte distribution width (RBC) [Ratio] 12.7 % 11.0-15.0 [facility] Estimated glomerular filtrat ion rate (GFR) non- Americanon 07-12-2023 GFR/1.73 sq M.predicted among non-blacks MDRD (S/P/Bld) [Vol rate/Area] mL/min/{1.73_m2} >=60 [facility] Hematocrit Auto (Bld) [Volum e fraction]on 07-12-2023 Hematocrit (Bld) [Volume fraction] 42.8 % 36.0-48.0 [facility] Hemoglobin [Mass/volume] in Bloodon 07-12-2023 Hemoglobin (Bld) [Mass/Vol] 14.3 g/dL 12.0-16.0 [facility] Laboratory - Chemistry and C hemistry - challengeon 07-12-2023 Calcium [Mass/Vol] 9.1 mg/dL 8.5-10.1 [facility] Chloride [Moles/Vol] 100 mmol/L 98-107 [facility] CO2 [Moles/Vol] 26.1 mmol/L 21.0-32.0 [facility] Creatinine [Mass/Vol] 0.78 mg/dL 0.55-1.02 [facility] GFR/1.73 sq M.predicted MDRD (S/P/Bld) [Vol rate/Area] mL/min/{1.73_m2} >=60 [facility] Glucose [Mass/Vol] 215 mg/dL 74-106 [facility] Potassium [Moles/Vol] 4.0 mmol/L 3.5-5.1 [facility] Sodium [Moles/Vol] 137 mmol/L 136-145 [facility] Urea nitrogen [Mass/Vol] 12.0 mg/dL 7.0-18.0 [facility] Urea nitrogen/Creatinine [Mass ratio] 15.4 mg/mg [facility] Laboratory - Hematology and Cell countson 07-12-2023 Immature granulocytes/100 WBC (Bld) 0.1 % 0.0-0.5 [facility] Leukocytes [#/volume] correc alma delia for nucleated erythrocytes in Blood by Automated counon 07-12-2023 WBC corrected for nucl RBC Auto (Bld) [#/Vol] 7.8 10 3/uL 4.0-11.0 [facility] Lymphocytes Auto (Bld) [#/Vo l]on 07-12-2023 Lymphocytes (Bld) [#/Vol] 2.7 10 3/uL 1.2-3.8 [facility] Lymphocytes/100 WBC Auto (Bl d)on 07-12-2023 Lymphocytes/100 WBC (Bld) 34.1 % 20.5-60.0 [facility] MCH Auto (RBC) [Entitic mass ]on 07-12-2023 MCH (RBC) [Entitic mass] 29.2 pg 26.7-34.0 [facility] MCHC Auto (RBC) [Mass/Vol]on 07-12-2023 MCHC (RBC) [Mass/Vol] 33.4 g/dL 29.9-35.2 [facility] MCV Auto (RBC) [Entitic vol] on 07-12-2023 MCV (RBC) [Entitic vol] 87.5 fL 81.0-99.0 [facility] Monocytes Auto (Bld) [#/Vol] on 07-12-2023 Monocytes (Bld) [#/Vol] 0.5 10 3/uL 0.3-0.8 [facility] Monocytes/100 WBC Auto (Bld) on 07-12-2023 Monocytes/100 WBC (Bld) 6.4 % 1.7-12.0 [facility] Neutrophils Auto (Bld) [#/Vo l]on 07-12-2023 Neutrophils (Bld) [#/Vol] 4.5 10 3/uL 1.4-6.5 [facility] Neutrophils/100 WBC Auto (Bl d)on 07-12-2023 Neutrophils/100 WBC (Bld) 57.4 % 43.0-75.0 [facility] No Panel Informationon 07-11 Eosinophils # (Auto) 0.1 10 3/uL 0.0-0.7 [facility] Immature Granulocyte # (Auto) 0.01 10 3/uL 0.00-0.03 [facility] Platelet mean volume Auto (B ld) [Entitic vol]on 07-12-2023 Platelet mean volume (Bld) [Entitic vol] 10.9 fL 9.5-13.5 [facility] Platelets Auto (Bld) [#/Vol] on 07-12-2023 Platelets (Bld) [#/Vol] 259 10 3/uL 150-450 [facility] RBC Auto (Bld) [#/Vol]on RBC (Bld) [#/Vol] 4.89 10 6/uL 4.20-5.40 [facility] Serum or plasma anion gap de terminationon 07-12-2023 Anion gap [Moles/Vol] 14.9 mmol/L [facility] Glucose - FINGER STICKon Glucose [Mass/Vol] 360 mg/dL [employer] Other Office Visiton 12-13-2022 Follow-up visit [id number] Arlette Ramos 1970 F Date Provider Department Center 12/13/2022 [facility]8-MARQUES MOROCHO CARD [facility] No family history on file Level of Service:20234 [place] OFFICE/OUTPATIENT ESTABLISHED LOW MDM 20-29 MIN Reason for Visit and Comments: Follow-up [139692] - 4 mo follow up Normal [facility] IGP,Aptima HPV,Age Gdlnon PAP HPV Aptima Negative Normal Negative [facility] Comment on above: Order Comment: COLLE CTION TECHNIQUE:: BROOM-ALONE GYNOCOLOGICAL BODY SITE:: CERVIX ENDOCERVIX Result Comment: This nucleic acid amplification test detects fourteen high- risk HPV types (16,18,31,33,35,39,45,51,52,56,58,59,66,68) without differentiation. PERFORMED BY: [facility] [place] [address] PATHOLOGIST BAIL ATTACHER RUBINA RICCI M.D. Performed By: #### Tejinder FREEMAN [id number] #### [facility] , Pap Image Guided Note Normal . [facility] Comment on above: Order Comment: COLLE CTION TECHNIQUE:: BROOM-ALONE GYNOCOLOGICAL BODY SITE:: CERVIX ENDOCERVIX Result Comment: TEST S RESULT FLAG UNITS REF RANGE LAB Clinician Provided Cytology Information Source.............Cervix;Endocervix No. of containers..01 ThinPrep Vial Age Algo ACOG Joie... 67 01 FLAG LEGEND: L-Low Normal,H-High Normal,LL-Alert Low,HH-Alert High <-Panic Low,>-Panic High,A-Abnormal,AA-Critical Abnormal Performed at: 01 =G Dary Torrez [address] [place] [address], [place] [id number] Christina Burden MD, Performed By: #### Tejinder FREEMAN [id number] #### [facility] , Result Comment: TEST S RESULT FLAG UNITS REF RANGE LAB DIAGNOSIS: 02 NEGATIVE FOR INTRAEPITHELIAL LESION OR MALIGNANCY. CELLULAR CHANGES ASSOCIATED WITH ATROPHY ARE PRESENT. Specimen adequacy: 02 Satisfactory for evaluation. Endocervical component may not be distinguished in cases of atrophy. Performed by: 02 Rama Baker, Shift Supervisor Rn ([facility]) . 02 Note: Note 02 The [...] Low,>-Panic High,A-Abnormal,AA-Critical Abnormal Performed at: [address] [id number] Christina Burden MD, CBC AUTO DIFFon 08-27-2022 BASO # 0.0 103/ul Normal 0.0-0.1 [facility] Comment on above: Performed By: #### C BC #### [facility] [address] [place], [place] [address] Dr. Sarah Church Basophils/100 WBC (Bld) 0.5 % Normal 0.2-2.0 [facility] Comment on above: Performed By: #### C BC #### [facility] [address] [place] [address] Dr. Sarah Church EO # 0.2 103/ul Normal 0.0-0.7 [facility] Comment on above: Performed By: #### C BC #### [facility] [address] [place] [address] Dr. Sarah Church Eosinophils/100 WBC (Bld) 2.2 % Normal 0.9-7.0 [facility] Comment on above: Performed By: #### C BC #### [facility] [address] [place] [address] Dr. Sarah Church Erythrocyte distribution width (RBC) [Ratio] 12.5 % Normal 11.0-15.0 [facility] Comment on above: Performed By: #### C BC #### [facility] [address] [place] [address] Dr. Sarah Church Hematocrit (Bld) [Volume fraction] 44.1 % Normal 36.0-48.0 [facility] Comment on above: Performed By: #### C BC #### [facility] [address] [place] [address] Dr. Sarah Church Hemoglobin (Bld) [Mass/Vol] 15.1 g/dL Normal 12.0-16.0 [facility] Comment on above: Performed By: #### C BC #### [facility] [address] [place] [address] Dr. Sarah Church IG # 0.02 10e3/ul Normal 0.00-0.03 [facility] Comment on above: Performed By: #### C BC #### [facility] [address] [place] [address] Dr. Sarah Church IG % 0.2 % Normal 0.0-0.5 [facility] Comment on above: Performed By: #### C BC #### [facility] [address] [place] [address] Dr. Sarah Church LYMPH # 2.9 103/ul Normal 1.2-3.8 [facility] Comment on above: Performed By: #### C BC #### [facility] [address] [place] [address] Dr. Sarah Church Lymphocytes/100 WBC (Bld) 33.4 % Normal 20.5-60.0 [facility] Comment on above: Performed By: #### C BC #### [facility] [address] [place] [address] Dr. Sarah Church MANUAL DIFF REQ NO Normal [facility] Comment on above: Performed By: #### C BC #### [facility] [address] [place] [address] Dr. Sarah Church MCH (RBC) [Entitic mass] 29.1 pg Normal 26.7-34.0 [facility] Comment on above: Performed By: #### C BC #### [facility] [address] [place] [address] Dr. Sarah Church MCHC (RBC) [Mass/Vol] 34.2 g/dL Normal 29.9-35.2 [facility] Comment on above: Performed By: #### C BC #### [facility] [address] [place] [address] Dr. Sarah Church MCV (RBC) [Entitic vol] 85.0 fL Normal 81.0-99.0 [facility] Comment on above: Performed By: #### C BC #### [facility] [address] [place] [address] Dr. Sarah Church MONO # 0.6 103/ul Normal 0.3-0.8 [facility] Comment on above: Performed By: #### C BC #### [facility] [address] [place] [address] Dr. Sarah Church Monocytes/100 WBC (Bld) 6.8 % Normal 1.7-12.0 [facility] Comment on above: Performed By: #### C BC #### [facility] [address] [place] [address] Dr. Sarah Church NEUT # 4.9 103/ul Normal 1.4-6.5 [facility] Comment on above: Performed By: #### C BC #### [facility] [address] [place] [address] Dr. Sarah Church Neutrophils/100 WBC (Bld) 56.9 % Normal 43.0-75.0 [facility] Comment on above: Performed By: #### C BC #### [facility] [address] [place] [address] Dr. Sarah Church Platelet mean volume (Bld) [Entitic vol] 10.8 fL Normal 9.5-13.5 [facility] Comment on above: Performed By: #### C BC #### [facility] [address] [place] [address] [address] Sarah Church PLT 276 103/ul Normal 150-450 [facility] Comment on above: Performed By: #### C BC #### [facility] [address] [place] [address] Dr. Sarah Church RBC 5.19 106/ul Normal 4.20-5.40 [facility] Comment on above: Performed By: #### C BC #### [facility] [address] [place] [address] Dr. Sarah Church WBC 8.6 103/ul Normal 4.0-11.0 [facility] Comment on above: Performed By: #### C BC #### [facility] [address] [place] [address] Dr. Sarah Church LIPID PROFILEon 08-27-2022 CHOL-HDL RATIO NORM SEE BELOW Normal [facility] Comment on above: Result Comment: 3.3 - 4.4 LOW RISK 4.4 - 7.1 AVERAGE RISK 7.1 - 11.0 MODERATE RISK >11.0 HIGH RISK Performed By: #### L IPID, CMP #### [facility] [address] [place] [address] Dr. Sarah Church Cholesterol [Mass/Vol] 110 mg/dL Normal <=200 [facility] Comment on above: Performed By: #### L IPID, CMP #### [facility] [address] [place] [address] Dr. Sarah Church Cholesterol in HDL [Mass/Vol] 33 mg/dL Critically low 40-60 [facility] Comment on above: Performed By: #### L IPID, CMP #### [facility] [address] [place] [address] [address] Sarah Church Cholesterol in LDL [Mass/Vol] 58.0 mg/dL Normal [facility] Comment on above: Performed By: #### L IPID, CMP #### [facility] [address] [address] [address] Sarah Church Cholesterol.total/C holesterol in HDL [Mass ratio] 3.3 {ratio} Normal [facility] Comment on above: Performed By: #### L IPID, CMP #### [facility] [address] [address] [address] Sarah Church HDL NORMAL > or = 60 mg/dl - LO W CARDIOVASCULAR RISK <40 mg/dl - HIGH CARDIOVASCULAR RISK Normal [facility] Comment on above: Performed By: #### L IPID, CMP #### [facility] [address] [place] [address] Dr. Sarah Church LDL CALC NORMAL SEE BELOW Normal [facility] Comment on above: Result Comment: <100 mg/dl OPTIMAL 100 - 129 mg/dl NEAR OR ABOVE OPTIMAL 130 - 159 mg/dl BORDERLINE HIGH 160 - 189 mg/dl HIGH >190 mg/dl VERY HIGH Performed By: #### L IPID, CMP #### [facility] [address] [address] [address] Sarah Church Triglyceride [Mass/Vol] 95 mg/dL Normal <=150 [facility] Comment on above: Performed By: #### L IPID, CMP #### [facility] [address] [address] [address] Sarah Church VLDL CALC 19.0 mg/dL Normal [facility] Comment on above: Performed By: #### L IPID, CMP #### [facility] [address] [address] [address] Sarah Church PROF 14(COMP METB)on 023 Albumin [Mass/Vol] 3.3 g/dL Critically low 3.4-5.0 [facility] Comment on above: Performed By: #### L IPID, CMP #### [facility] [address] [place] [address] Dr. Sarah Church Albumin/Globulin [Mass ratio] 0.8 {ratio} Normal [facility] Comment on above: Performed By: #### L IPID, CMP #### [facility] [address] [address] [address] Sarah Church ALP [Catalytic activity/Vol] 100 U/L Normal 46-116 [facility] Comment on above: Performed By: #### L IPID, CMP #### [facility] [address] [address] [address] Sarah Church ALT [Catalytic activity/Vol] 74 U/L Critically high 14-59 [facility] Comment on above: Performed By: #### L IPID, CMP #### [facility] [address] [address] [address] Sarah Church Anion gap [Moles/Vol] 13.2 mmol/L Normal [facility] Comment on above: Performed By: #### L IPID, CMP #### [facility] [address] [address] [address] Sarah Church AST [Catalytic activity/Vol] 42 U/L Critically high 15-37 [facility] Comment on above: Performed By: #### L IPID, CMP #### [facility] [address] [place] [address] [address] Sarah Church Bilirubin [Mass/Vol] 0.4 mg/dL Normal 0.2-1.0 [facility] Comment on above: Performed By: #### L IPID, CMP #### [facility] [address] [address] [address] Sarah Church Calcium [Mass/Vol] 9.2 mg/dL Normal 8.5-10.1 [facility] Comment on above: Performed By: #### L IPID, CMP #### [facility] [address] [address] [address] Sarah Church Chloride [Moles/Vol] 99 mmol/L Normal 98-107 [facility] Comment on above: Performed By: #### L IPID, CMP #### [facility] [address] [place] [address] Dr. Sarah Church CO2 [Moles/Vol] 30.4 mmol/L Normal 21.0-32.0 [facility] Comment on above: Performed By: #### L IPID, CMP #### [facility] [address] [address] [address] Sarah Church Creatinine [Mass/Vol] 0.78 mg/dL Normal 0.55-1.02 [facility] Comment on above: Performed By: #### L IPID, CMP #### [facility] [address] [place] [address] Dr. Sarah Church EGFR-AF COLOMBIAN >60 Normal >=60 [facility] Comment on above: Performed By: #### L IPID, CMP #### [facility] [address] [place] [address] Dr. Sarah Church EGFR-NON AF COLOMBIAN >60 Normal >=60 [facility] Comment on above: Performed By: #### L IPID, CMP #### [facility] [address] [address] [address] Sarah Church Globulin (S) [Mass/Vol] 4.0 g/dL Normal [facility] Comment on above: Performed By: #### L IPID, CMP #### [facility] [address] [place] [address] Dr. Sarah Church Glucose [Mass/Vol] 255 mg/dL Critically high 74-106 T [facility] Comment on above: Performed By: #### L IPID, CMP #### [facility] [address] [address] [address] Sarah Church Potassium [Moles/Vol] 3.6 mmol/L Normal 3.5-5.1 [facility] Comment on above: Performed By: #### L IPID, CMP #### [facility] [address] [address] [address] Sarah Church Protein [Mass/Vol] 7.3 g/dL Normal 6.4-8.[address] [facility] Comment on above: Performed By: #### L IPID, CMP #### [facility] [address] [address] [address] Sarah Church Sodium [Moles/Vol] 139 mmol/L Normal 136-145 [facility] Comment on above: Performed By: #### L IPID, CMP #### [facility] [address] [address] [address] Sarah Church Urea nitrogen [Mass/Vol] 8.0 mg/dL Normal 7.0-18.0 [facility] Comment on above: Performed By: #### L IPID, CMP #### [facility] [address] [address] [address] Sarah Church Urea nitrogen/Creatinine [Mass ratio] 10.3 mg/mg Normal [facility] Comment on above: Performed By: #### L IPID, CMP #### [facility] [address] [address] [address] Sarah Church 37on 08-10-2022 37 -Start hydrochlorothiazide 12.5 mg in the morning -Check labs 1 week after starting new medication -Take blood pressure to appointment with Dr. Dela Cruz for correlation [facility] Office Visiton 08-10-2022 Follow-up visit [id number] Qi Ramosfrancisco Sidhu 1970 F Date Provider Department Center 08/10/2022 [id number]-HOGBURNBNCHRISTEN BENITES [facility] No family history on file Level of Service:06779 [place] OFFICE/OUTPATIENT ESTABLISHED MOD MDM 30-39 MIN Reason for Visit and Comments: Coronary Artery Disease [187] Hypertension [142527] Normal [facility] MG MAMM SCREEN 3D ROB CADon 07-20-2022 MG MAMM SCREEN 3D ROB CAD Patient: ZOILA RAMOS Exam Date: 07/20/2022 : 1970 Gender:F Ordering : DR SHAYY DELA CRUZ M.D. Admission #: [id number] Family : Order #: [id number] CLICK HERE TO VIEW EXAM RADIOLOGY REPORT PROCEDURE: MAMMOGRAM SCREENING 3D BILATERAL CAD COMPARISON: MAMMO ROB SCREEN W CAD DIG, 05/16/2012. INDICATIONS: Screening mammography Calculator Name NCI Breast Cancer Risk Assessment Tool 5 Year Breast Cancer Risk 1.20% Lifetime Breast Cancer Risk 10.80% Personal Breast Cancer No Personal Ovarian Cancer No Treatments None Family Cancers None LOCATION: [facility] BREAST COMPOSITION: Almost entirely fatty. FINDINGS: [...] Lan M.D. on 07/21/2022 at 08:24 Normal [facility] PROF CHEM 8 (BAS METB)on Anion gap [Moles/Vol] 14.5 mmol/L Normal [facility] Comment on above: Performed By: #### B MP #### [facility] [address] [address] [address] Sarah Church Calcium [Mass/Vol] 9.8 mg/dL Normal 8.5-10.1 [facility] Comment on above: Performed By: #### B MP #### [facility] [address] [address] [address] Sarah Church Chloride [Moles/Vol] 99 mmol/L Normal 98-107 [facility] Comment on above: Performed By: #### B MP #### [facility] [address] [place] [address] [address] Sarah Church CO2 [Moles/Vol] 27.2 mmol/L Normal 21.0-32.0 [facility] Comment on above: Performed By: #### B MP #### [facility] [address] [address] [address] Sarah Church Creatinine [Mass/Vol] 0.80 mg/dL Normal 0.55-1.02 [facility] Comment on above: Performed By: #### B MP #### [facility] [address] [place] [address] [address] Sarah Church EGFR-AF COLOMBIAN >60 Normal >=60 [facility] Comment on above: Performed By: #### B MP #### [facility] [address] [address] [address] Sarah Church EGFR-NON AF COLOMBIAN >60 Normal >=60 [facility] Comment on above: Performed By: #### B MP #### [facility] [address] [address] [address] Sarah Church Glucose [Mass/Vol] 458 mg/dL Critically high 74-106 T [facility] Comment on above: Performed By: #### B MP #### [facility] [address] [address] [address] Sarah Church Potassium [Moles/Vol] 4.7 mmol/L Normal 3.5-5.1 [facility] Comment on above: Performed By: #### B MP #### [facility] [address] [address] [address] Sarah Church Sodium [Moles/Vol] 136 mmol/L Normal 136-145 [facility] Comment on above: Performed By: #### B MP #### [facility] [address] [address] [address] Sarah Church Urea nitrogen [Mass/Vol] 15.0 mg/dL Normal 7.0-18.0 [facility] Comment on above: Performed By: #### B MP #### [facility] [address] [address] [address] Sarah Church Urea nitrogen/Creatinine [Mass ratio] 18.8 mg/mg Normal [facility] Comment on above: Performed By: #### B MP #### [facility] [address] [address] [address] Sarah Church Orders Onlyon 06-04-2022 Orders Only [id number] Arlette Ramos 1970 F Date Provider Department Center 06/04/20[address] JESSICA MXA [facility] No family history on file Normal [facility] 36on 06-01-2022 36 Patient called and [...] her high cholesterol . HELP!! lol Normal [facility] Orders Onlyon 06-01-2022 Orders Only [id number] Arlette Ramos 1970 F Date Provider Department Center 06/01/2022 MALCOLM SCHAFER [address] No family history on file Normal [facility] 36on 05-28-2022 36 Spoke with flaca she states to call in script of losartan 25 mg QD Normal [facility] GLYCOHEMOGLOBIN A1Con 2022 ADA RECOMMENDATION SEE BELOW Normal [facility] Comment on above: Result Comment: ADA RECOMMENDED LIMIT 4.0 - 6.0 ADA THERAPEUTIC TARGET < 7.0 ACTION SUGGESTED > 7.0 Performed By: #### A 1C ####[facility] [id number] [address]Dr. Sarah Church Glucose [Mass/Vol] 266 mg/dL Normal [facility] Comment on above: Performed By: #### A 1C ####[facility] [id number] [address]Dr. Sarah Church HbA1c (Bld) [Mass fraction] 10.9 % Critically high 4.5-6.2 [facility] Comment on above: Performed By: #### A 1C ####[facility] [id number] [address]Dr. Sarah Church Office Visiton 05-19-2022 Follow-up visit [id number] Arlette Ramos 1970 F Date Provider Department Center 05/19/2022 MALCOML SCHAFER [facility] No family history on file Level of Service:49355 [place] OFFICE/OUTPATIENT ESTABLISHED MOD MDM 30-39 MIN Reason for Visit and Comments: Coronary Artery Disease [187] Hyperlipidemia [182] Normal [facility] XR HIP RT 2 3V W [...] fracture or malalignment. Electronically authenticated by: JAVAD POOLERODRÍGUEZ Date: 2022-04-06 21:15 Normal [facility] CBC AUTO DIFFon 11-05-2021 BASO # 0.1 103/ul Normal 0.0-0.1 [facility] Comment on above: Performed By: #### C BC #### [facility] [address] [address] [address] Sarah Church Basophils/100 WBC (Bld) 0.4 % Normal 0.2-2.0 [facility] Comment on above: Performed By: #### C BC #### [facility] [address] [place] [address] Dr. Sarah Church EO # 0.2 103/ul Normal 0.0-0.7 [facility] Comment on above: Performed By: #### C BC #### [facility] [address] [address] [address] Sarah Church Eosinophils/100 WBC (Bld) 1.3 % Normal 0.9-7.0 [facility] Comment on above: Performed By: #### C BC #### [facility] [address] [place] [address] Dr. Sarah Church Erythrocyte distribution width (RBC) [Ratio] 12.3 % Normal 11.0-15.0 [facility] Comment on above: Performed By: #### C BC #### [facility] [address] [place] [address] Dr. Sarah Church Hematocrit (Bld) [Volume fraction] 43.1 % Normal 36.0-48.0 [facility] Comment on above: Performed By: #### C BC #### [facility] [address] [address] [address] Sarah Church Hemoglobin (Bld) [Mass/Vol] 14.6 g/dL Normal 12.0-16.0 [facility] Comment on above: Performed By: #### C BC #### [facility] [address] [place] [address] Dr. Sarah Church IG # 0.04 10e3/ul Critically high 0.00-0.03 [facility] Comment on above: Performed By: #### C BC #### [facility] [address] [place] [address] Dr. Sarah Church IG % 0.3 % Normal 0.0-0.5 [facility] Comment on above: Performed By: #### C BC #### [facility] [address] [place] [address] Dr. Sarah Church LYMPH # 1.6 103/ul Normal 1.2-3.8 [facility] Comment on above: Performed By: #### C BC #### [facility] [address] [place] [address] Dr. Sarah Church Lymphocytes/100 WBC (Bld) 12.5 % Critically low 20.5-60.0 [facility] Comment on above: Performed By: #### C BC #### [facility] [address] [place] [address] Dr. Sarah Church MANUAL DIFF REQ NO Normal [facility] Comment on above: Performed By: #### C BC #### [facility] [address] [place] [address] Dr. Sarah Church MCH (RBC) [Entitic mass] 29.4 pg Normal 26.7-34.0 [facility] Comment on above: Performed By: #### C BC #### [facility] [address] [place] [address] Dr. Sarah Church MCHC (RBC) [Mass/Vol] 33.9 g/dL Normal 29.9-35.2 [facility] Comment on above: Performed By: #### C BC #### [facility] [address] [place] [address] Dr. Sarah Church MCV (RBC) [Entitic vol] 86.7 fL Normal 81.0-99.0 [facility] Comment on above: Performed By: #### C BC #### [facility] [address] [place] [address] Dr. Sarah Church MONO # 1.0 103/ul Critically high 0.3-0.8 [facility] Comment on above: Performed By: #### C BC #### [facility] [address] [place] [address] Dr. Sarah Church Monocytes/100 WBC (Bld) 7.7 % Normal 1.7-12.0 [facility] Comment on above: Performed By: #### C BC #### [facility] [address] [place] [address] Dr. Sarah Church NEUT # 9.6 103/ul Critically high 1.4-6.5 [facility] Comment on above: Performed By: #### C BC #### [facility] [address] [place] [address] Dr. Sarah Church Neutrophils/100 WBC (Bld) 77.8 % Critically high 43.0-75.0 [facility] Comment on above: Performed By: #### C BC #### [facility] [address] [place] [address] Dr. Sarah Church Platelet mean volume (Bld) [Entitic vol] 11.0 fL Normal 9.5-13.5 [facility] Comment on above: Performed By: #### C BC #### [facility] [address] [place] [address] Dr. Sarah Church PLT 220 103/ul Normal 150-450 [facility] Comment on above: Performed By: #### C BC #### [facility] [address] [place] [address] Dr. Sarah Church RBC 4.97 106/ul Normal 4.20-5.40 [facility] Comment on above: Performed By: #### C BC #### [facility] [address] [place] [address] Dr. Sarah Church WBC 12.4 103/ul Critically high 4.0-11.0 [facility] Comment on above: Performed By: #### C BC #### [facility] [address] [place] [address] Dr. Sarah Church GROUP A STREP CULTUREon S. pyogenes Ag Ql (Unsp spec) Culture Observations: NEGATIVE FOR GROUP A STREPTOCOCCUS. Normal [facility] Comment on above: Performed By: #### G RASTCX, SSCRN ####[facility] [id number] [address]Dr. Sarah Church POINT OF CARE GLUCOSEon 07-0 Glucose [Mass/Vol] 214 mg/dL Critically high 74-106 T [facility] Comment on above: Performed By: #### P OCGLUC #### [facility] [address] [address] [address] Sarah Church STREPT SCREENon 11-05-2021 STREP SCREEN A Negative Normal NEGATIVE [facility] Comment on above: Performed By: #### G RASTCX, SSCRN ####[facility] [id number] [address]Dr. Sarah Church CBC AUTO DIFFon 10-16-2021 BASO # 0.1 103/ul Normal 0.0-0.1 [facility] Comment on above: Performed By: #### C BC #### [facility] [address] [place] [address] Dr. Sarah Church Basophils/100 WBC (Bld) 0.8 % Normal 0.2-2.0 [facility] Comment on above: Performed By: #### C BC #### [facility] Laboratory [address] [place] [address] Dr. Sarah Church EO # 0.3 103/ul Normal 0.0-0.7 [facility] Comment on above: Performed By: #### C BC #### [facility] Laboratory [address] [place] [address] Dr. Sarah Church Eosinophils/100 WBC (Bld) 3.4 % Normal 0.9-7.0 [facility] Comment on above: Performed By: #### C BC #### [facility] Laboratory [address] [place] [address] Dr. Sarah Church Erythrocyte distribution width (RBC) [Ratio] 12.6 % Normal 11.0-15.0 [facility] Comment on above: Performed By: #### C BC #### [facility] [address] [place] [address] Dr. Sarah Church Hematocrit (Bld) [Volume fraction] 45.4 % Normal 36.0-48.0 [facility] Comment on above: Performed By: #### C BC #### [facility] [address] [place] [address] Dr. Sarah Church Hemoglobin (Bld) [Mass/Vol] 15.0 g/dL Normal 12.0-16.0 [facility] Comment on above: Performed By: #### C BC #### [facility] [address] [place] [address] Dr. Sarah Church IG # 0.02 10e3/ul Normal 0.00-0.03 [facility] Comment on above: Performed By: #### C BC #### [facility] [address] [place] [address] Dr. Sarah Church IG % 0.2 % Normal 0.0-0.5 [facility] Comment on above: Performed By: #### C BC #### [facility] [address] [place] [address] Dr. Sarah Church LYMPH # 2.7 103/ul Normal 1.2-3.8 [facility] Comment on above: Performed By: #### C BC #### [facility] [address] [place] [address] Dr. Sarah Church Lymphocytes/100 WBC (Bld) 31.0 % Normal 20.5-60.0 [facility] Comment on above: Performed By: #### C BC #### [facility] [address] [place] [address] Dr. Sarah Church MANUAL DIFF REQ NO Normal [facility] Comment on above: Performed By: #### C BC #### [facility] [address] [place] [address] Dr. Sarah Church MCH (RBC) [Entitic mass] 29.3 pg Normal 26.7-34.0 [facility] Comment on above: Performed By: #### C BC #### [facility] [address] [address] [address] Sarah Church MCHC (RBC) [Mass/Vol] 33.0 g/dL Normal 29.9-35.2 [facility] Comment on above: Performed By: #### C BC #### [facility] [address] [place] [address] Dr. Sarah Church MCV (RBC) [Entitic vol] 88.7 fL Normal 81.0-99.0 [facility] Comment on above: Performed By: #### C BC #### [facility] [address] [place] [address] Dr. Sarah Church MONO # 0.6 103/ul Normal 0.3-0.8 [facility] Comment on above: Performed By: #### C BC #### [facility] [address] [place] [address] Dr. Sarah Church Monocytes/100 WBC (Bld) 6.5 % Normal 1.7-12.0 [facility] Comment on above: Performed By: #### C BC #### [facility] [address] [place] [address] Dr. Sarah Church NEUT # 5.0 103/ul Normal 1.4-6.5 [facility] Comment on above: Performed By: #### C BC #### [facility] [address] [place] [address] Dr. Sarah Church Neutrophils/100 WBC (Bld) 58.1 % Normal 43.0-75.0 [facility] Comment on above: Performed By: #### C BC #### [facility] [address] [place] [address] Dr. Sarah Church Platelet mean volume (Bld) [Entitic vol] 11.0 fL Normal 9.5-13.5 [facility] Comment on above: Performed By: #### C BC #### [facility] [address] [place] [address] Dr. Sarah Church PLT 226 103/ul Normal 150-450 [facility] Comment on above: Performed By: #### C BC #### [facility] [address] [place] [address] Dr. Sarah Church RBC 5.12 106/ul Normal 4.20-5.40 [facility] Comment on above: Performed By: #### C BC #### [facility] [address] [address] [address] Sarah Church WBC 8.6 103/ul Normal 4.0-11.0 [facility] Comment on above: Performed By: #### C BC #### [facility] [address] [address] [address] Sarah Church GLYCOHEMOGLOBIN A1Con 2021 ADA RECOMMENDATION SEE BELOW Normal [facility] Comment on above: Result Comment: ADA RECOMMENDED LIMIT 4.0 - 6.0 ADA THERAPEUTIC TARGET < 7.0 ACTION SUGGESTED > 7.0 Performed By: #### A 1C ####[facility] [address] [address]DrCoretta Church Glucose [Mass/Vol] 275 mg/dL Normal [facility] Comment on above: Performed By: #### A 1C ####[facility] [address] [address]DrCoretta Church HbA1c (Bld) [Mass fraction] 11.2 % Critically high 4.5-6.2 [facility] Comment on above: Performed By: #### A 1C ####[facility] [address] [address]Dr. Sarah Church LIPID PROFILEon 10-16-2021 CHOL-HDL RATIO NORM SEE BELOW Normal [facility] Comment on above: Result Comment: 3.3 - 4.4 LOW RISK 4.4 - 7.1 AVERAGE RISK 7.1 - 11.0 MODERATE RISK >11.0 HIGH RISK Performed By: #### L IPID, CMP ####[facility] [address] [address]DrCoretta Church Cholesterol [Mass/Vol] 159 mg/dL Normal <=200 [facility] Comment on above: Performed By: #### L IPID, CMP ####[facility] [address] [address]DrCoretta Church Cholesterol in HDL [Mass/Vol] 41 mg/dL Normal 40-60 [facility] Comment on above: Performed By: #### L IPID, CMP ####[facility] [address] [address]Dr. Sarah Church Cholesterol in LDL [Mass/Vol] 102.6 mg/dL Normal [facility] Comment on above: Performed By: #### L IPID, CMP ####[facility] [address] [address]Dr. Sarah Church Cholesterol.total/C holesterol in HDL [Mass ratio] 3.9 {ratio} Normal [facility] Comment on above: Performed By: #### L IPID, CMP ####[facility] [address] [address]Dr. Sarah Church HDL NORMAL > or = 60 mg/dl - LO W CARDIOVASCULAR RISK <40 mg/dl - HIGH CARDIOVASCULAR RISK Normal [facility] Comment on above: Performed By: #### L IPID, CMP ####[facility] [address] [address]Dr. Sarah Church LDL CALC NORMAL SEE BELOW Normal [facility] Comment on above: Result Comment: <100 mg/dl OPTIMAL 100 - 129 mg/dl NEAR OR ABOVE OPTIMAL 130 - 159 mg/dl BORDERLINE HIGH 160 - 189 mg/dl HIGH >190 mg/dl VERY HIGH Performed By: #### L IPID, CMP ####[facility] [address] [address]Dr. Sarah Church Triglyceride [Mass/Vol] 77 mg/dL Normal <=150 [facility] Comment on above: Performed By: #### L IPID, CMP ####[facility] [address] [address]Dr. Sarah Church VLDL CALC 15.4 mg/dL Normal [facility] Comment on above: Performed By: #### L IPID, CMP ####[facility] [address] [address]Dr. Sarah Church MICROALBUMIN, RAND URon 06-1 mALB 2.0 mg/L Normal <=30.0 [facility] Comment on above: Performed By: #### M ALBR #### [facility] [address] [place], [place] [address] Dr. Sarah Church PROF 14(COMP METB)on 022 Albumin [Mass/Vol] 3.5 g/dL Normal 3.4-5.0 [facility] Comment on above: Performed By: #### L IPID, CMP ####[facility] [address] [id number] hCurch Albumin/Globulin [Mass ratio] 0.8 {ratio} Normal [facility] Comment on above: Performed By: #### L IPID, CMP ####[facility] [address] [address]DrCoretta Church ALP [Catalytic activity/Vol] 85 U/L Normal 46-116 [facility] Comment on above: Performed By: #### L IPID, CMP ####[facility] [address] [address]DrCoretta Church ALT [Catalytic activity/Vol] 59 U/L Normal 14-59 [facility] Comment on above: Performed By: #### L IPID, CMP ####[facility] [address] [address]DrCoretta Church Anion gap [Moles/Vol] 15.1 mmol/L Normal [facility] Comment on above: Performed By: #### L IPID, CMP ####[facility] [address] [address]Dr. Sarah Church AST [Catalytic activity/Vol] 32 U/L Normal 15-37 [facility] Comment on above: Performed By: #### L IPID, CMP ####[facility] [address] [address]DrCoretta Church Bilirubin [Mass/Vol] 0.4 mg/dL Normal 0.2-1.0 [facility] Comment on above: Performed By: #### L IPID, CMP ####[facility] [address] [address]DrCoretta Church Calcium [Mass/Vol] 9.0 mg/dL Normal 8.5-10.1 [facility] Comment on above: Performed By: #### L IPID, CMP ####[facility] [address] [address]Dr. Sarah Church Chloride [Moles/Vol] 102 mmol/L Normal 98-107 [facility] Comment on above: Performed By: #### L IPID, CMP ####[facility] [address] [address]Dr. Corriebrenden Church CO2 [Moles/Vol] 30.2 mmol/L Normal 21.0-32.0 [facility] Comment on above: Performed By: #### L IPID, CMP ####[facility] [address] [place], [place] [address]Dr. Sarah Church Creatinine [Mass/Vol] 0.81 mg/dL Normal 0.55-1.02 [facility] Comment on above: Performed By: #### L IPID, CMP ####[facility] [address] [place], [place] [address]Dr. Corriebrenden Ranjit EGFR-AF COLOMBIAN >60 Normal >=60 [facility] Comment on above: Performed By: #### L IPID, CMP ####[facility] [address] [place], [place] [address]Dr. Corriebrenden Ranjit EGFR-NON AF COLOMBIAN >60 Normal >=60 [facility] Comment on above: Performed By: #### L IPID, CMP ####[facility] [address] [place], [place] [address]Dr. Sarah Church Globulin (S) [Mass/Vol] 3.9 g/dL Normal [facility] Comment on above: Performed By: #### L IPID, CMP ####[facility] [address] [place], [place] [address]Dr. Sarah Church Glucose [Mass/Vol] 218 mg/dL Critically high 74-106 [facility] Comment on above: Performed By: #### L IPID, CMP ####[facility] [address] [place], [place] [address]Dr. Sarah Church Potassium [Moles/Vol] 4.3 mmol/L Normal 3.5-5.1 [facility] Comment on above: Performed By: #### L IPID, CMP ####[facility] [address] [address]Dr. Sarah Church Protein [Mass/Vol] 7.4 g/dL Normal 6.4-8.[address] [facility] Comment on above: Performed By: #### L IPID, CMP ####[facility] [address] [address]Dr. Sarah Church Sodium [Moles/Vol] 143 mmol/L Normal 136-[address] [facility] Comment on above: Performed By: #### L IPID, CMP ####[facility] [address] [address]Dr. Sarah Church Urea nitrogen [Mass/Vol] 14.0 mg/dL Normal 7.0-18.0 [facility] Comment on above: Performed By: #### L IPID, CMP ####[facility] [address] [address]Dr. Sarah Church Urea nitrogen/Creatinine [Mass ratio] 17.2 mg/mg Normal [facility] Comment on above: Performed By: #### L IPID, CMP ####[facility] [address] [address]Dr. Sarah Church Vital Signs Date Time Vital Sign Value Performing Clinician Facility 08-24-2023 15:08040 Body height 157.48 cm [facility] 08-24-2023 15:080400 Body mass index (BMI) [Ratio] 37.5 kg/m2 [facility] 08-24-2023 15:080400 Body weight 93.21 kg [facility] 08-19-2023 10:43-0400 Body height 157.48 cm MD Shayy Dela Cruz Work Phone: [facility] 08-19-2023 10:43-0400 Body mass index (BMI) [Ratio] 37.5 kg/m2 MD Shayy Dela Cruz Work Phone: [facility] 08-19-2023 10:43-0400 Body weight 93.09 kg MD Shayy Dela Cruz Work Phone: [facility] 08-19-2023 10:43-0400 Diastolic blood pressure 79 mm[Hg] MD Shayy Dela Cruz Work Phone: [facility] 08-19-2023 10:43-0400 Heart rate 83 /min MD Shayy Dela Cruz Work Phone: [facility] 08-19-2023 10:43-0400 Systolic blood pressure 135 mm[Hg] MD Shayy Dela Cruz Work Phone: [facility] 07-28-2023 14:22-0400 Body height 157.48 cm MD Shayy Dela Cruz Work Phone: [facility] 07-28-2023 14:22-0400 Body mass index (BMI) [Ratio] 37.6 kg/m2 MD Shayy Dela Cruz Work Phone: [facility] 07-28-2023 14:22-0400 Body weight 93.44 kg MD Shayy Dela Cruz Work Phone: [facility] 07-28-2023 14:22-0400 Diastolic blood pressure 84 mm[Hg] MD Shayy Dela Cruz Work Phone: [facility] 07-28-2023 14:22-0400 Heart rate 83 /min MD Shayy Dela Cruz Work Phone: [facility] 07-28-2023 14:22-0400 Respiratory rate 18 /min MD Shayy Dela Cruz Work Phone: [facility] 07-28-2023 14:22-0400 SaO2% (BldA) [Mass fraction] 97 % MD Shayy Dela Cruz Work Phone: [facility] 07-28-2023 14:22-0400 Systolic blood pressure 140 mm[Hg] MD Shayy Dela Cruz Work Phone: [facility] 07-19-2023 10:57-0400 Body height 157.48 cm MD Shayy Dela Cruz Work Phone: [facility] 07-19-2023 10:57-0400 Body mass index (BMI) [Ratio] 37.1 kg/m2 MD Shayy Dela Cruz Work Phone: [facility] 07-19-2023 10:57-0400 Body weight 92.07 kg MD Shayy Dela Cruz Work Phone: [facility] 07-19-2023 10:57-0400 Diastolic blood pressure 68 mm[Hg] MD Shayy Dela Cruz Work Phone: [facility] 07-19-2023 10:57-0400 Heart rate 89 /min MD Shayy Dela Cruz Work Phone: [facility] 07-19-2023 10:57-0400 Systolic blood pressure 132 mm[Hg] MD Shayy Dela Cruz Work Phone: [facility] 05-25-2023 11:00-0500 Body height 157.48 cm Cathie Scally Other [facility] 05-25-2023 11:00-0500 Body mass index (BMI) [Ratio] 37.23 kg/m2 Cathie Scally Other [employer] [facility] [employer] Other 05-25-2023 11:00-0500 Body weight 92.35 kg Cathie Scally Other [facility] 05-25-2023 11:00-0500 Diastolic blood pressure 71 mm[Hg] Cathie Scally Other [facility] 05-25-2023 11:00-0500 Respiratory rate 18 /min Cathie Scally Other [employer] Other 05-25-2023 11:00-0500 SaO2% (BldA) [Mass fraction] 95 % Cathie Scally Other [employer] Other 05-25-2023 11:00-0500 Systolic blood pressure 139 mm[Hg] Cathie Vargas Other [facility] 04-15-2023 11:00-0500 Body height 157.48 cm Shayy Dela Cruz Other [facility] 04-15-2023 11:00-0500 Body mass index (BMI) [Ratio] 37.49 kg/m2 Shayy Dela Cruz Other [employer] Other 04-15-2023 11:00-0500 Body weight 92.99 kg Shayy Dela Cruz Other [employer] Other 04-15-2023 11:00-0500 Body weight 92.98 kg MD Shayy Dela Cruz Work Phone: [facility] 04-15-2023 11:00-0500 Diastolic blood pressure 84 mm[Hg] Shayy Dela Cruz Other [facility] 04-15-2023 11:00-0500 Systolic blood pressure 142 mm[Hg] Shayy Dela Cruz Other [facility] 06-22-2022 13:30-0500 Body height 157.48 cm Shayy Dela Cruz Other [employer] Other 06-22-2022 13:30-0500 Body mass index (BMI) [Ratio] 36.94 kg/m2 Shayy Dela Cruz Other [employer] Other 06-22-2022 13:30-0500 Body weight 91.63 kg Shayy Dela Cruz Other [employer] Other 06-22-2022 13:30-0500 Diastolic blood pressure 74 mm[Hg] Shayy Dela Cruz Other [employer] Other 06-22-2022 13:30-0500 SaO2% (BldA) [Mass fraction] 97 % Shayy Dela Cruz Other [facility] [employer] Other 06-22-2022 13:30-0500 Systolic blood pressure 112 mm[Hg] Shayy Dela Cruz Other [facility] [employer] Other Encounters Encounter Date Encounter Type Care Provider Facility Start: 08-24-2023 End: 08-24-2023 ambulatory [facility] Work Phone: Start: 08-24-2023 End: 08-24-2023 Patient encounter procedure [facility] Work Phone: Start: 08-19-2023 End: 08-19-2023 ambulatory MD Shayy Dela Cruz Work Phone: [facility] Work Phone: Start: 08-19-2023 End: 08-19-2023 Patient encounter procedure MD Shayy Dela Cruz Work Phone: [facility]ician [facility] Work Phone: Start: 07-28-2023 End: 07-28-2023 ambulatory MD Shayy Dela Cruz Work Phone: [facility] Work Phone: Start: 07-28-2023 End: 07-28-2023 Patient encounter procedure MD Shayy Dela Cruz Work Phone: [facility] Work Phone: Start: 07-19-2023 End: 07-19-2023 ambulatory MD Shayy Dela Cruz Work Phone: [facility] Work Phone: Start: 07-19-2023 End: 07-19-2023 Patient encounter procedure MD Shayy Dela Cruz Work Phone: [facility] Work Phone: Start: 07-12-2023 Non-patient / Non-visit MD Shayy Dela Cruz Work Phone: [facility] [employer] Work Phone: Start: 06-14-2023 ambulatory Brittani Law lity:[facility] Start: 06-14-2023 End: 06-14-2023 ambulatory MD Shayy Dela Cruz Work Phone: [facility] Work Phone: Start: 06-14-2023 End: 06-14-2023 Patient encounter procedure MD Shayy Dela Cruz Work Phone: [facility]ician [facility] Work Phone: Start: 06-06-2023 End: 06-06-2023 ambulatory Shayy Dela Cruz Other [facility] [employer] Other Start: 06-06-2023 Telephone encounter Shayy Dela Cruz [facility] Start: 05-25-2023 [facility] visit new patient Cathie Sheikh y [facility] Start: 05-25-2023 End: 05-26-2023 ambulatory MD Shayy Dela Cruz Work Phone: [facility] [employer] Other Start: 05-25-2023 End: 05-25-2023 Discharged Recurring MD [facility] Work Phone: Start: 05-25-2023 Registered Recurring MD [facility] Work Phone: Start: 05-25-2023 End: 05-25-2023 Patient encounter procedure MD Shayy Dela Cruz Work Phone: [facility]- Start: 05-12-2023 End: 05-12-2023 ambulatory Shayy Dela Cruz Other [employer] Other Start: 05-12-2023 Telephone encounter Shayy Dela Cruz [facility] Start: 05-10-2023 End: 05-10-2023 ambulatory Shayy Dela Cruz Other [employer] Other Start: 05-10-2023 Telephone encounter Shayy Dela Cruz [facility] Start: 04-22-2023 End: 04-22-2023 ambulatory Shayy Dela Cruz Other [employer] Other Start: 04-22-2023 Telephone encounter Shayy Jose De Jesus [facility] Start: 04-20-2023 End: 04-20-2023 ambulatory Lynne Avilat Other [employer] Other Start: 04-20-2023 Telephone encounter Lynne Hernandez [facility] Start: 04-18-2023 End: 04-18-2023 ambulatory Lynne Fitt Other [employer] Other Start: 04-18-2023 Telephone encounter Lynneana Hernandez [facility] Start: 04-15-2023 End: 04-15-2023 ambulatory Shayy Jose De Jesus Other [employer] Other Start: 04-15-2023 Office outpatient visit 15 minutes Shayy Dela Cruz [facility] Start: 04-15-2023 End: 04-15-2023 Patient encounter procedure MD Shayy Dela Cruz Work Phone: [facility] Work Phone: Start: 04-06-2023 End: 04-06-2023 ambulatory Shayy Dela Cruz Other [employer] Other Start: 04-06-2023 Telephone encounter Shayy Dela Cruz [facility] Start: 02-25-2023 End: 02-25-2023 ambulatory Shayy Dela Cruz Other [employer] Other Start: 02-25-2023 Telephone encounter Shayy Dela Cruz [facility] Start: 12-13-2022 End: 12-13-2022 ambulatory MARQUES MOROCHO [facility] Start: 10-29-2022 End: 10-29-2022 ambulatory Shayy Dela Cruz Other [employer] Other Start: 10-29-2022 Telephone encounter Shayy Dela Cruz [facility] Start: 09-20-2022 End: 09-20-2022 ambulatory Shayy Dela Cruz Facility:[facility] Start: 08-27-2022 End: 08-28-[address] SHAYY DELA CRUZ Facility:[facility] Start: 08-10-2022 End: 08-10-2022 ambulatory [facility] Start: 07-20-2022 End: 07-21-[address] SHAYY DELA CRUZ Facility:[facility] Start: 07-19-2022 End: 07-19-2022 ambulatory Shayy Dela Cruz Other [employer] Other Start: 07-19-2022 Telephone encounter Shayy Dela Cruz [facility] Start: 07-12-2022 End: 07-13-[address] SHAYY DELA CRUZ Facility:[facility] Start: 07-05-2022 End: 07-05-2022 ambulatory Shayy Dela Cruz Other [employer] Other Start: 07-05-2022 Telephone encounter Shayy Dela Cruz [facility] Start: 06-28-2022 End: 06-28-2022 ambulatory Shayy Dela Cruz Other [employer] Other Start: 06-28-2022 Telephone encounter Shayy Dela Cruz [facility] Start: 06-22-2022 End: 06-22-2022 ambulatory Shayy Dela Cruz Other [employer] Other Start: 06-22-2022 Office outpatient visit 15 minutes Shayy Dela Cruz [facility] Start: 05-27-2022 End: 05-27-2022 ambulatory Shayy Dela Cruz Other [employer] Other Start: 05-27-2022 Telephone encounter Shayy Dela Cruz [facility] Start: 05-19-2022 End: 05-20-[address] SHAYY DELA CRUZ Facility:[facility] Start: 04-14-2022 End: 04-15-2022 ambulatory JORDYN SANCHEZ Facility:[facility] Start: 04-06-2022 End: 04-07-[address] SHAYY DELA CRUZ Facility:[facility] Start: 01-11-2022 End: 01-12-[address] SHAYY DELA CRUZ Facility:[facility] Start: 11-05-2021 End: 11-05-[address] SHIRIN WOLFE . Facility:[facility] Start: 10-16-2021 End: 10-17-[address] SHAYY DELA CRUZ Facility:[facility] Start: 05-10-2017 End: 05-11-2017 Ambulatory DEFAULT PHYSICIAN Facility:[facility] Start: 05-05-2017 End: 05-06-2017 Ambulatory DEFAULT PHYSICIAN Facility:[facility] Procedures Date Procedure Procedure Detail Performing Clinician Start: 12-13-2022 Follow-up visit Follow-up MARQUES MOROCHO Immunizations Immunization Date Immunization Notes Care Provider Fa cility 02-01-2022 influenza virus vaccine, split virus (incl. purified surface antigen) Shayy Dela Cruz Other [employer] Other 02-01-2022 influenza virus vaccine, unspecified formulation MD Shayy Dela Cruz Work Phone: [facility] Payers Date Payer Category Payer Medicare [id number] 2022 Self-pay 2021 Medicaid [id number] 2017 Unknown [id number] 1972 Unknown [id number] .. [id number] 1972 Unknown [id number] 06.17.83 [id number] 1972 Unknown [id number] 06.17.83 [id number] 1972 Unknown [id number] 2.16.84 [id number] 1972 Unknown [id number] 2.16.84 [id number] 1972 Unknown [id number] 2.16.84 [id number] 1972 Unknown [id number] 2.16.84 [id number] 1972 Unknown [id number] 2.16.84 [id number] 1972 Unknown [id number] 2.16.84 [id number] 1959 Medicaid [id number] 2. [id number] 1959 Medicare [id number] 2. [id number] Unknown Unknown [id number] 2.16.8 [id number] Unknown [id number] 2.16.8 [id number] Unknown [id number] 2.16.8 [id number] Social History Date Type Detail Facility Unknown if ever smoked [employer] Other Sex Assigned At Sex Assigned At Bir [employer] Other Start: 1970 Sex Assigned At Female F [facility] Start: 07-19-2023 Tobacco smoking status NHIS Never smoked tobacco (finding) [facility] Medical Equipment Procedure Code Equipment Code Equipment Origin al Text Equipment Identifier Dates Pen Needle, Diab etic (Bd Ultra-Fine Mini Pen Needle) 31 gauge x 3/16 needle Start: 07-28-2023 Pen Needle, Diab etic (Bd Ultra-Fine Mini Pen Needle) 31 gauge x 3/16 needle Start: 07-28-2023 Pen Needle, Diab etic (Bd Ultra-Fine Mini Pen Needle) 31 gauge x 3/16 needle Start: 08-23-2023 Pen Needle, Diab etic (Bd Ultra-Fine Mini Pen Needle) 31 gauge x 3/16 needle Start: 07-28-2023 End: 08-23-2023 Clinical Notes 01-11-2022 to 06-06-2023 Note Date & Type Note Facility 06-06-2023 Evaluation note Encounter Date Diagnosis Assessment Notes Jun, Controlled type 2 diabetes mellitus with hyperglycemia, unspecified whether superintendent container terminal insulin use (ICD-10 - E11.65) [facility] Other 01-24-2024 Evaluation note* Encounter Date Diagnosis [...] issues. 6. Prescriptions: New patient 05-25-2023 uses [facility]. 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 She was taught how to use the [...] educating the patient by Nguyễn Norwood RN, [facility]. [employer] Other 12-15-2023 Evaluation note* Encounter Date Diagnosis Assessment Notes Treatment Notes Treatment Clinical Notes Apr, Type 2 diabetes mellitus with hyperglycemia (ICD-10 - E11.65) Rx handwritten for diabetic shoes. Pt agrees to referral to specialty clinic. Continue present meds and discussed healthy diet in meantime. 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 Mitral V (more content not included)...[facility] 08-10-2022 NoteCardiology Clinic Note Subjective Zoila [...] Active Problem List Diagnosis Coronary arteriosclerosis in [place] artery Old myocardial infarction Sinusitis Type 1 [...] in size. The (more content not included)... [facility]02-21-2023 Evaluation note* Encounter Date Diagnosis Assessment Notes Treatment Notes Treatment Clinical Notes Jun, Acute non-recurrent maxillary sinusitis (ICD-10 - J01.00) Jun, Controlled type 2 diabetes mellitus with hyperglycemia, unspecified whether custodial insulin use (ICD-10 - E11.65) Once again advised management at diabetes clinic. She declines and will continue meds, followup in 3 months, and recheck labs at that time. She is eating more of a keto diet and is certain that is helping her A1C improve. Jun, Screening mammogram for breast cancer (ICD-10 - Z12.31) Zoila will call for an appt [facility] Other 01-31-2023 NoteIn light of elevated LDL will change simvastatin to lipitor 40 mg daily. Will repeat liver function and lipid level in 2 months. Staff to notify pt. Malcolm Evans NP Division of Cardiology, [facility]- [phone] Pager- [phone] Email- [email or web address] NotePatient here for 1 year follow [...] light-headedness. All other systems reviewed and are negative.[facility] 05-19-2022 NoteUTP CARDIOLOGY PROGRESS NOTE HPI: [...] past 12 months Assessment/Plan: Coronary arteriosclerosis in [place] artery Coronary artery disease is stable, no [...] week RTC 1 month to review [facility] Hypertension is uncontrolled, Will add lisinopril 5 mg po daily, and continue metoprolol Goal b/p 130/80 or less, monitor for dry persistent cough- call office for any concerns, repeat BMP in 1 week RTC 1 month to review B/P [facility]01-18-2023 Note Coronary artery disease is stable, no concerning symptoms continue risk factor modifications- heart healthy diet, regular exercise as tolerated and continue all medications.[facility] 04-15-2022 NotePROCEDURE: XR FOOT LT MIN [...] Electronically authenticated by: NARINDER LAN Date: 2022-04-15 06:08[facility]09-12-2022 NotePROCEDURE: XR TOES RT MIN 2 V HISTORY: Pain of toe of right foot ; first toe pain following injury COMPARISON: None. FINDINGS: BONES:No fracture, acute abnormality, or significant arthropathy. SOFT TISSUES:No visible soft tissue swelling. EFFUSION:None visible. OTHER: Negative. IMPRESSION: 1. No acute bone abnormality. 2. Mild degenerative joint disease. Electronically authenticated by: NARINDER LAN Date: 2022-01-11 18:48[facility] complaint+Reason for visit Narrative* Chief Complaint 3 Month Follow Up Referral Dr. Negro LAGUERRE download [facility] Work Phone: chief complaint+Reason for visit Narrative* Chief Complaint 3 Month Follow Up Referral Dr. Negro LAGUERRE download Reason for Visit Type 2 diabetes holli [facility] Work Phone: chief complaint+Reason for visit Narrative* Chief Complaint Referral Dr. Negro LAGUERRE download 3 Month Check up Reason for Visit Type 2 diabetes holli [facility] Work Phone: chief complaint+Reason for visit Narrative* Chief Complaint Referral Dr. Negro LAGUERRE download 3 Month Check up amrik reader Reason for Visit Type 2 diabetes holli itus Right wrist fracture Type [address] [facility] Work Phone: chief complaint+Reason for visit Narrative* Chief Complaint Referral Dr. Negro LAGUERRE download 3 Month Check up amrik reader Gastroesophageal reflux disease (GERD) Reason for Visit Type 2 diabetes holli itus Right wrist fracture Type 2 diabetes mellitus BMI 37.0-37.9, adult Dietary counseling and surveillance History of myocardial infarction HTN (hypertension) Hyperlipidemia Long-term insulin use Type 2 diabetes mellitus Vitamin D deficiency Gastroesophageal reflux disease [facility] Work Phone: Evaluation noteNo InformationNort Cmed Other Evaluation noteNo assessment information available [facility] Work Phone: Evaluation note* Diagnosis Onset Date Resolution Status Type 2 diabetes mellitus acu te [facility] Work Phone: Evaluation note* Diagnosis Onset Date Resolution Status Type 2 diabetes mellitus acu te Right wrist fracture acute Type 2 diabetes mellitus acu te [facility] Work Phone: Evaluation note* Diagnosis Onset Date Resolution Status Type 2 diabetes mellitus acu te Right wrist fracture acute Type 2 diabetes mellitus acu te BMI 37.0-37.9, adult acute Dietary counseling and surveillance acute History of myocardial infarction acute HTN (hypertension) acute Hyperlipidemia acute Long-term insulin use acute Type 2 diabetes mellitus acu te Vitamin D deficiency acute Gastroesophageal reflux disease acute [facility] Work Phone: Evaluation note* Diagnosis Onset Date Resolution Status Type 2 diabetes mellitus acu te Right wrist fracture acute Type 2 diabetes mellitus acu te BMI 37.0-37.9, adult acute Dietary counseling and surveillance acute History of myocardial infarction acute HTN (hypertension) acute Hyperlipidemia acute Long-term insulin use acute Type 2 diabetes mellitus acu te Vitamin D deficiency acute Gastroesophageal reflux disease acute Type 2 diabetes mellitus acu te [facility] Work Phone: History general Narrative - Reported* Type Description Date Medical History Herpes labialis Medical History Candidiasis of mouth Medical History Type 2 diabetes holli itus with diabetic polyneuropathy, unspecified whether custodial insulin use Medical History Controlled type 2 di abetes mellitus with hyperglycemia, unspecified whether superintendent container terminal insulin use Medical History Obesity Medical History Dyslipidemia Medical History CAD in [place] artery Medical History Asthma, intermittent Medical History [...] History appendectomy Surgical History 7 stents 1999 [employer] Other Hiswnkp general Narrative - Reported* Type Description Date Medical History Herpes labialis Medical History Candidiasis of mouth Medical History Type 2 diabetes holli itus with diabetic polyneuropathy, unspecified whether superintendent container terminal insulin use Medical History Controlled type 2 di abetes mellitus with hyperglycemia, unspecified whether superintendent container terminal insulin use Medical History Obesity Medical History Dyslipidemia Medical History CAD in [place] artery Medical History Asthma, intermittent Medical History [...] stents 1999 Hospitalization History see surgical history [employer] Other History general Narrative - Reported* Type Description Date Medical History Herpes labialis Medical History Candidiasis of mouth Medical History Type 2 diabetes holli itus with diabetic polyneuropathy, unspecified whether superintendent container terminal insulin use Medical History Controlled type 2 di abetes mellitus with hyperglycemia, unspecified whether superintendent container terminal insulin use Medical History Obesity Medical History Dyslipidemia Medical History CAD in [place] artery Medical History Asthma, intermittent Medical History [...] coronary 1999 Hospitalization History see surgical history [employer] Other Summary Purpose Family History Relationship Condition Age at Onset Recorded Date/T matt father Diabetes mellitus Unknown Heart disease Unknown Unknown family member Family history of other condition Unknow n Not Specified Unknown Diabetes mellitus Unknown Advance Directives Advance Directive Response Recorded Date/ Time Advance Directives No September 22 3 2:19pm Advance Directive Response Recorded Date/ Time Advance Directives No September 22 3 3:19pm Reason for Referral Reason *FU 04/22 [facility] - on insulin. high readings. Diagnosis 1 Type 2 diabetes holli itus with hyperglycemia (E11.65) Referral Organization [facility] Referring Provider First Name Shayy Referring Provider Last Name Jose De Jesus Referring Provider Specialty Family [facility] Referred Organization [facility] Referred Provider Marcia Mendes Referred Address [address],[place], [place],[address] Referred Provider Specialty Nurse Pracenmanuel saldaña Referral Priority Routine General Notes Heather Jenkins 01:25:59 PM >received today, notes locked, insurance attached, referral faxed Chief Complaint and Reason for Visit Chief Complaint download 3 Month Check up amrik reader Gastroesophageal reflux disease (GERD) 4 week DL per DS/ amrik Reason for Visit Type 2 diabetes holli itus Right wrist fracture Type 2 diabetes mellitus BMI 37.0-37.9, adult Dietary counseling and surveillance History of myocardial infarction HTN (hypertension) Hyperlipidemia Long-term insulin use Type 2 diabetes mellitus Vitamin D deficiency Gastroesophageal reflux disease Type 2 diabetes mellitus Additional Source Comments INFORMATION SOURCE (unrecogn ized section and content) DATE CREATED AUTHOR 10/25/2017 [facility] DATE CREATED AUTHOR AUTHOR'S ORGANIZ ATION 09/03/2022 [facility] DATE CREATED AUTHOR AUTHOR'S ORGANIZ ATION 12/13/2022 [facility] DATE CREATED AUTHOR AUTHOR'S ORGANIZ ATION 07/01/2023 [facility] REASON FOR VISIT (unrecogniz ed section and content) labsmessage3 MONTH FOLLOW UP ACrefillmessagemessageRefill3 month Follow upDM [id number] ReferralrefillsNo InformationRefillReferral Dr. Negro Gallegos sensor running [...] Care Provide r, Attending Provider Active Start: July 12, 2023 Team Status: Inactive Member Role Status Dates Shayy Dela Cruz MD Primary Care Provide r, Attending Provider Active Start: July 19, 2023 End: July 19, 2023 Team Status: Inactive Member Role Status Dates Shayy Dela Cruz MD Primary Care Provider Active Start: July 28, 2023 End: July 28, 2023 Cathie Vargas APRN Attending Provider Active Start: July 28, 2023 End: July 28, 2023 Team Status: Inactive Member Role Status Dates Shayy Dela Cruz MD Primary Care Provide r, Attending Provider Active Start: August 19, 2023 End: August 19, 2023 Team Status: Inactive Member Role Status Dates Shayy Dela Cruz MD Primary Care Provider Active Start: August 24, 2023 End: August 24, 2023 Brittani Collier RN Attending Provider Active Start: August 24, 2023 End: August 24, 2023 Cathie Vargas APRN Active Star t: August 24, 2023 End: August 24, 2023 Goals (unrecognized section and content) Goals [...] BE BASED ON THE PRIMARY CLINICAL RECORDS. [employer] provides no warranty or guarantee of the accuracy or completeness of information in this document.
== END 2023-08-29 10:23 | disposition home or self-care (01) ==
LOC: EC 10:22
PROVIDERS: PCP Family Medicine; Visit Provider Orthopaedic Surgery
DX: S52.691D Other fracture of lower end of right ulna, subsequent encounter for closed fracture with routine healing (principal)
CPT/HCPCS: 73110

== ENCOUNTER 2023-09-04 14:48 | Emergency (ER) | payer MEDICARE, MEDICAID, SELFPAY ==
[2023-09-04 14:55] VITALS: BP 192/90; PULSE 86; TEMP 37.3; O2SAT 99; BMI 34.1
--- NOTE | 2023-09-04 15:10 | ED_ITS ---
HPI HPI - Extremity Injury (Lower) General Chief Complaint: Extremity Injury, Lower Stated Complaint: RT LOWER EXTREMITY PAIN Time Seen by Provider: 09/04/23 15:10 Source: patient Mode of arrival: ambulance Limitations: no limitations History of Present Illness HPI Narrative: Patient is a 53-year-old female presents to the ER via EMS for evaluation of right ankle pain. She denies injury. She reports moderate to severe pain on the medial aspect of the right ankle after wearing flat shoes and attending restoration. Patient reports no fever or recent illness. She is on insulin for diabetes but believes she has type II. She reports taking medication for her blood pressure. Patient appears in no distress but admits she is in therapy already for her right wrist, but has never experienced ankle pain before. Patient states she called EMS because she had trouble walking.Pain localized to the medial ankle and radiates to the arch, she denies pain into her foot Injury: Right: ankle Related Data Home Medications ?Medication ?Instructions ?Recorded ?Confirmed albuterol sulfate 90 mcg/actuation 2 inh inhalation PRN PRN shortness 12/31/22 12/31/22 aerosol inhaler of breath or wheezing aspirin 81 mg capsule 81 mg PO DAILY 12/31/22 12/31/22 atorvastatin 40 mg tablet 40 mg PO DAILY 12/31/22 12/31/22 carvedilol 6.25 mg tablet 6.25 mg PO Q12H 12/31/22 12/31/22 esomeprazole magnesium 40 mg 40 mg PO Q24H 12/31/22 12/31/22 capsule,delayed release fluticasone propionate 110 3 puff inhalation PRN PRN 12/31/22 12/31/22 mcg/actuation HFA aerosol inhaler bronchospasm (Flovent HFA) glipizide 10 mg tablet 20 mg PO BID 12/31/22 12/31/22 hydrochlorothiazide 12.5 mg capsule 12.5 mg PO DAILY 12/31/22 12/31/22 insulin glargine U-300 conc 300 unit subcut 12/31/22 unit/mL (1.5 mL) subcutaneous pen (Toujeo SoloStar U-300 Insulin) insulin lispro 100 unit/mL subcut 12/31/22 subcutaneous pen lisinopril 5 mg tablet 5 mg PO DAILY 12/31/22 12/31/22 losartan 25 mg tablet 25 mg PO DAILY 12/31/22 12/31/22 metformin 1,000 mg tablet 1,000 mg PO BID 12/31/22 12/31/22 Previous Rx's ?Medication ?Instructions ?Recorded nabumetone 750 mg tablet 750 mg PO BID PRN pain #20 tabs 12/31/22 ibuprofen 600 mg tablet 600 mg PO TID PRN pain #30 tabs 09/04/23 Allergies Allergy/AdvReac Type Severity Reaction Status Date / Time latex Allergy Intermediate itch Verified 07/12/23 18:16 insulin lispro Allergy Mild Rash Verified 07/12/23 18:16 codine AdvReac Intermediate Vomiting Uncoded 07/12/23 18:16 Opioid HPI Opioid Management Most Recent Pain and Opioid Data: Last Pain Scale 0 09/04/23 15:48 Last MAR Pain Assessment 09/04/23 15:48 Review of Systems ROS Constitutional Denies: fever or chills Eyes Denies: change in vision or blurry vision Ears, nose, mouth, and throat Denies: throat pain or neck pain Cardiovascular Denies: chest pain or palpitations Respiratory Denies: shortness of breath or cough Gastrointestinal Denies: abdominal pain or nausea Musculoskeletal Reports: extremity pain (Right medial ankle); Denies: back pain or neck pain Integumentary/Breast Denies: rash, itching or redness Neurological Denies: headache Psychiatric Denies: anxiety Hematologic/Lymphatic Denies: easy bruising PFSH PFSH Social History Smoking status: Never smoker Exam Narrative Exam Narrative: Vital signs reviewed and nurse's notes. The patient is not hypoxic. General: Alert, no acute distress, patient resting comfortably Skin: warm, intact, no pallor noted Head: Normocephalic, atraumatic Eye: Normal conjunctiva, no exudates Respiratory: No acute distress, lungs CTA Musculoskeletal: No evidence of deformity to the Ankle or knee. There is Minimal amount of swelling The medial ankle along the posterior tibial tendon.. There is no ecchymosis. No erythema or warmth noted. DP and PT pulses are intact 2+. Normal sensation, normal capillary refill less than 2 seconds. There is no cyan osis or mottling noted. The patient has tenderness to Distribution of the posterior tibial tendon medial ankle. No pain to distal fibula. no pain with syndesmotic compression. The patient has no laxity , Negative anterior drawer. The patient has negative Chris testing. The patient was able to flex and extend although with pain at the ankle with resisted planterflexion. No joint warmth. painless prom. Patient was able to extend leg off the cart without difficulty. No tenderness noted to the 5th MT, midfoot, or proximal fibular area. There is no pain with calcaneal squeeze, achilles tendon is intact and no defect is palpated. The patient has no pelvic instability. The patient has no shortening or rotation noted to the bilateral lower extremities. Neurological: alert and orient x4, normal sensory and motor observed. Psychiatric: Cooperative Constitutional Vital Signs, click to edit/add: Last Vital Signs Temp 99.2 F 09/04/23 14:55 Pulse 86 09/04/23 14:55 Resp 18 09/04/23 14:55 BP 192/90 H 09/04/23 14:55 Pulse Ox 99 09/04/23 14:55 O2 Del Method Room Air 09/04/23 14:55 Course Vital Signs Vital signs: Vital Signs Temperature 99.2 F 09/04/23 14:55 Pulse Rate 86 09/04/23 14:55 Respiratory Rate 18 09/04/23 14:55 Blood Pressure 192/90 H 09/04/23 14:55 Pulse Oximetry 99 09/04/23 14:55 Oxygen Delivery Method Room Air 09/04/23 14:55 Temperature 99.2 F 09/04/23 14:55 Pulse Rate 86 09/04/23 14:55 Respiratory Rate 18 09/04/23 14:55 Blood Pressure 192/90 H 09/04/23 14:55 Pulse Oximetry 99 09/04/23 14:55 Oxygen Delivery Method Room Air 09/04/23 14:55 MDM - Extremity Injury (Lower) MDM Narrative Medical decision making narrative: Patient with no bony tenderness, suspect pes planus, patient wearing flat shoes at restoration when symptoms started and patient likely has posterior tibial tendinitis. We discussed Motrin and Tylenol, her blood pressure was rechecked manually at the bedside 170/88. Patient admits to having blood pressure medicine at home but that her blood pressure has been running high. Patient agreeable to ice elevate will use crutches to offload the ankle. X-rays were discussed at bedside Patient denies injury has absolutely 0 pain to the distal fibula. We discussed the read for possible stress fracture and patient is asymptomatic to the lateral malleolus but states she did break this when she was younger. Her pain is focally isolated to the posterior tibial tendon. We discussed calf stretches. She may use crutches to be toe-touch weightbearing pending follow-up with podiatry. Trever wrap applied for compression.Discussed the importance of ice. Patient states she is in physical therapy for right wrist range of motion but that she is okay to use crutches with her right wrist reported a fracture that has resulted in some stiffness but she is working on the range of motion and advised that she would have no difficulty using the crutches. We discussed the risks and benefits of being dispensed a boot, she would like to discuss this with the social welfare research worker that she had a wrist brace that was not covered under her insurance. She ended up purchasing one herself to save cost. As patient does not have any tenderness to the distal fibula I am agreements that she does not require any splinting at this time given her onset of pain after wearing new shoes to restoration. The patient is to followup with primary care physician / Podiatry group in next 1-2 days or to return to the emergency department should any of the signs or symptoms worsen or new symptoms develop. Patient had questions answered. The patient agrees with the following Diagnosis and Treatment plan and the patient will be discharged home. Imaging Data right ankle xray: Radiologist's impression: ITS Impressions Ankle X-Ray 09/04/23 15:28 IMPRESSION: Nondisplaced fracture of the lateral malleolus. There is slight periosteal reaction of the lateral malleolus which may suggest this is a stress fracture. Electronically authenticated by: EZE SHEPPARD Date: 09/04/2023 16:01 discussed pt may have broke ankle with fall and wrist fracture recently,, periosteal reaction noted for healing. ( right wrist fx is healed per pt with no Pain) Discharge Plan Discharge Stand Alone Forms: Portal Instructions Chief Complaint: Extremity Injury, Lower Clinical Impression: Acute right ankle pain, Posterior tibial tendinitis, right leg Patient Disposition: Home, Self-Care Time of Disposition Decision: 16:38 Condition: Good Prescriptions / Home Meds: New ibuprofen 600 mg tablet 600 mg PO TID PRN (Reason: pain) Qty: 30 0RF No Action albuterol sulfate 90 mcg/actuation HFA aerosol inhaler 2 inh INHALATION PRN PRN (Reason: shortness of breath or wheezing) insulin lispro 100 unit/mL insulin pen SUBCUT Bill Desirar U-300 Insulin 300 unit/mL (1.5 mL) insulin pen SUBCUT aspirin 81 mg capsule 81 mg PO DAILY atorvastatin 40 mg tablet 40 mg PO DAILY losartan 25 mg tablet 25 mg PO DAILY fluticasone propionate [Flovent HFA] 110 mcg/actuation HFA aerosol inhaler 3 puff INHALATION PRN PRN (Reason: bronchospasm) esomeprazole magnesium 40 mg capsule,delayed release(DR/EC) 40 mg PO Q24H glipizide 10 mg tablet 20 mg PO BID hydrochlorothiazide 12.5 mg capsule 12.5 mg PO DAILY lisinopril 5 mg tablet 5 mg PO DAILY metformin 1,000 mg tablet 1,000 mg PO BID carvedilol 6.25 mg tablet 6.25 mg PO Q12H nabumetone 750 mg tablet 750 mg PO BID PRN (Reason: pain) Qty: 20 0RF Print Language: Qatari Instructions: Tendinitis (ED) Additional Instructions: call podiatry office for appt tomorrow, Ice/ elevate Use crutches to nonweight bear or toe touch weight bear. Referrals: Shayy Ly MD [Primary Care Provider] - 1 week Sadi Bruce DPM [Physician] - As soon as possible
--- OUTSIDE RECORDS SUMMARY | 2023-09-04 15:22 | XMS_ITS | CCD ---
Author Organization [facility] Care Team Providers Care Assistant General Manager Name Role Phone PHYSICIAN, DEFAULT Unavailable Unavailable [...] [employer] Unavailable DELA CRUZ, DR SHAYY Reeys Primary Care Unavailable DELA CRUZ, DR SHAYY [...] MD Shayy Dela Cruz Primary Care Provider [phone] MD Shayy Dela Cruz Attending Provider Allergies Allergy Classification Reported Allergen(s) Allergy Type Date of Onset Reaction(s) Facility (1 source) codeine Drug Allergy 9 [facility] Repository (9 sources) Latex; Translations: [LATEX] Drug allergy (disorder) 9 sores on skin [facility] Repository (20 sources) Codeine; Translations: [CODEINE] Drug Allergy 0 nausea [facility] Repository (18 sources) Latex Drug allergy sores on skin [facility] Other (1 source) Codeine Drug Allergy [facility] Repository (1 source) atorvastatin; Translations: [ATORVASTATIN] Drug Allergy 3 [facility] Repository (1 source) Codeine Drug Allergy 4 [facility] Repository (1 source) Latex Drug allergy (disorder) 4 [facility] Repository Medications Current Medications Medication Drug Class(es) Dates Sig (Normalized) Sig (Original) [id number] 200 actuat albuterol 0.09 mg/actuat metered dose [...] May, Active Blood-Glucose Meter,Continuous (Freestyle Amrik 3 [place]) misc (3 sources) Start: 07-28-2023 Blood-Glucose Meter,Continuous (Freestyle Amrik 3 [place]) misc Active EACH .ROUTE .MEDSUPPLY July 28, [...] tablet by bin th every twenty-four hours Carvedilol 6.25 MG 1 tablet with food Orally once a day for 90 days Active cetirizine hydrochloride 10 mg oral tablet (12 sources) Histamine-1 Receptor Antagonist take 1 tablet by mouth every twenty-four hours ZyrTEC Allergy 10 MG 1 tablet Orally Once a day Active Dexcom G7 Pulmonologist Intensivist - (4 sources) Start: 06-03-19 24 Dexcom G7 Pulmonologist Intensivist - as directed as directed 4 x [...] Once a day Active FreeStyle Amrik 3 [place] - (3 sources) Start: 06-06-2023 FreeStyle Libr e 3 [place] - as directed invitro 4 times daily [...] angina pectoris; Translations: [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] Onset: 03-24-2022 [...] Onset: 11-09-2021 Chronic Other aftercare (6 sources) custodial (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 of insulin; Translations: [Long-term (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 of insulin] Onset: 04-08-2022 Episodic Other aftercare (18 sources) Long-term current use of insulin; Translations: [terminal gauger (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 of insulin] 07-28-2023 Episodic Other [...] terminal gauger (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; Translations: [[facility] CURRENT USE OF ASPIRIN] Onset: 04-08-2022 Episodic Other aftercare (1 source) terminal gauger (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 of oral hypoglycemic drugs; Translations: [CROSSBAR SWITCH ADJUSTER USE ORAL HYPOGLYCEMIC DX] Onset: 04-08-2022 Episodic Other aftercare (1 source) Other [facility] (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 therapy; Translations: [OTH [facility] CURRENT DRUG THERAPY] Onset: 11-09-2021 Episodic Other [...] 07-28-2023 HbA1c (Bld) [Mass fraction] 10.3 % [facility] No Panel Informationon 07-27 Bedside Glucose 126 [facility] Basophils Auto (Bld) [#/Vol] on 07-12-2023 Basophils (Bld) [#/Vol] 0.0 10 3/uL 0.0-0.1 [facility] Basophils/100 WBC Auto (Bld) on 07-12-2023 Basophils/100 WBC (Bld) 0.5 % 0.2-2.0 [facility] Eosinophils/100 WBC Auto (Bl d)on 07-12-2023 Eosinophils/100 WBC (Bld) 1.5 % 0.9-7.0 [facility] Erythrocyte distribution wid th Auto (RBC) [Ratio]on 07-12-2023 Erythrocyte distribution width (RBC) [Ratio] 12.7 % 11.0-15.0 [facility] Estimated glomerular filtrat ion rate (GFR) non- Americanon 07-12-2023 GFR/1.73 sq M.predicted among non-blacks MDRD (S/P/Bld) [Vol rate/Area] mL/min/{1.73_m2} >=60 [facility] Hematocrit Auto (Bld) [Volum e fraction]on 07-12-2023 Hematocrit (Bld) [Volume fraction] 42.8 % 36.0-48.0 [facility] Hemoglobin [Mass/volume] in Bloodon 07-12-2023 Hemoglobin (Bld) [Mass/Vol] 14.3 g/dL 12.0-16.0 [facility] Laboratory - Chemistry and C hemistry - challengeon 07-12-2023 Calcium [Mass/Vol] 9.1 mg/dL 8.5-10.1 [facility] Chloride [Moles/Vol] 100 mmol/L 98-107 [facility] CO2 [Moles/Vol] 26.1 mmol/L 21.0-32.0 [facility] Creatinine [Mass/Vol] 0.78 mg/dL 0.55-1.02 [facility] GFR/1.73 sq M.predicted MDRD (S/P/Bld) [Vol rate/Area] mL/min/{1.73_m2} >=60 [facility] Glucose [Mass/Vol] 215 mg/dL 74-106 [facility] Potassium [Moles/Vol] 4.0 mmol/L 3.5-5.1 [facility] Sodium [Moles/Vol] 137 mmol/L 136-145 [facility] Urea nitrogen [Mass/Vol] 12.0 mg/dL 7.0-18.0 [facility] Urea nitrogen/Creatinine [Mass ratio] 15.4 mg/mg [facility] Laboratory - Hematology and Cell countson 07-12-2023 Immature granulocytes/100 WBC (Bld) 0.1 % 0.0-0.5 [facility] Leukocytes [#/volume] correc alma delia for nucleated erythrocytes in Blood by Automated counon 07-12-2023 WBC corrected for nucl RBC Auto (Bld) [#/Vol] 7.8 10 3/uL 4.0-11.0 [facility] Lymphocytes Auto (Bld) [#/Vo l]on 07-12-2023 Lymphocytes (Bld) [#/Vol] 2.7 10 3/uL 1.2-3.8 [facility] Lymphocytes/100 WBC Auto (Bl d)on 07-12-2023 Lymphocytes/100 WBC (Bld) 34.1 % 20.5-60.0 [facility] MCH Auto (RBC) [Entitic mass ]on 07-12-2023 MCH (RBC) [Entitic mass] 29.2 pg 26.7-34.0 [facility] MCHC Auto (RBC) [Mass/Vol]on 07-12-2023 MCHC (RBC) [Mass/Vol] 33.4 g/dL 29.9-35.2 [facility] MCV Auto (RBC) [Entitic vol] on 07-12-2023 MCV (RBC) [Entitic vol] 87.5 fL 81.0-99.0 [facility] Monocytes Auto (Bld) [#/Vol] on 07-12-2023 Monocytes (Bld) [#/Vol] 0.5 10 3/uL 0.3-0.8 [facility] Monocytes/100 WBC Auto (Bld) on 07-12-2023 Monocytes/100 WBC (Bld) 6.4 % 1.7-12.0 [facility] Neutrophils Auto (Bld) [#/Vo l]on 07-12-2023 Neutrophils (Bld) [#/Vol] 4.5 10 3/uL 1.4-6.5 [facility] Neutrophils/100 WBC Auto (Bl d)on 07-12-2023 Neutrophils/100 WBC (Bld) 57.4 % 43.0-75.0 [facility] No Panel Informationon 07-11 Eosinophils # (Auto) 0.1 10 3/uL 0.0-0.7 [facility] Immature Granulocyte # (Auto) 0.01 10 3/uL 0.00-0.03 [facility] Platelet mean volume Auto (B ld) [Entitic vol]on 07-12-2023 Platelet mean volume (Bld) [Entitic vol] 10.9 fL 9.5-13.5 [facility] Platelets Auto (Bld) [#/Vol] on 07-12-2023 Platelets (Bld) [#/Vol] 259 10 3/uL 150-450 [facility] RBC Auto (Bld) [#/Vol]on RBC (Bld) [#/Vol] 4.89 10 6/uL 4.20-5.40 [facility] Serum or plasma anion gap de terminationon 07-12-2023 Anion gap [Moles/Vol] 14.9 mmol/L [facility] Glucose - FINGER STICKon Glucose [Mass/Vol] 360 mg/dL [facility] Other Office Visiton 12-13-2022 Follow-up visit [id number] Arlette Ramos 1970 F Date Provider Department Center 12/13/2022 [facility]8-MARQUES [facility]OCHO [facility] No family history on file Level of Service:08662 [place] OFFICE/OUTPATIENT ESTABLISHED LOW MDM 20-29 MIN Reason for Visit and Comments: Follow-up [230469] - 4 mo follow up Normal [facility] IGP,Aptima HPV,Age Gdlnon PAP HPV Aptima Negative Normal Negative [facility] Comment on above: Order Comment: COLLE CTION TECHNIQUE:: BROOM-ALONE GYNOCOLOGICAL BODY SITE:: CERVIX ENDOCERVIX Result Comment: This nucleic acid amplification test detects fourteen high- risk HPV types (16,18,31,33,35,39,45,51,52,56,58,59,66,68) without differentiation. PERFORMED BY: [facility] [place] [address] PATHOLOGIST PATROLLER RUBINA RICCI M.D. Performed By: #### Tejinder FREEMAN [id number] #### [facility] , Pap Image Guided Note Normal . [facility] Comment on above: Order Comment: COLLE CTION TECHNIQUE:: BROOM-ALONE GYNOCOLOGICAL BODY SITE:: CERVIX ENDOCERVIX Result Comment: TEST S RESULT FLAG UNITS REF RANGE LAB Clinician Provided Cytology Information Source.............Cervix;Endocervix No. of containers..01 ThinPrep Vial Age Algo ACOG Joie... 67 01 FLAG LEGEND: L-Low Normal,H-High Normal,LL-Alert Low,HH-Alert High <-Panic Low,>-Panic High,A-Abnormal,AA-Critical Abnormal Performed at: 01 =G Dary Torrez [address] [place] [address], [place] [address] Christina Burden MD, Performed By: #### Tejinder FREEMAN [id number] #### [facility] , Result Comment: TEST S RESULT FLAG UNITS REF RANGE LAB DIAGNOSIS: 02 NEGATIVE FOR INTRAEPITHELIAL LESION OR MALIGNANCY. CELLULAR CHANGES ASSOCIATED WITH ATROPHY ARE PRESENT. Specimen adequacy: 02 Satisfactory for evaluation. Endocervical component may not be distinguished in cases of atrophy. Performed by: 02 Rama Baker, Concrete Placement Equipment Operator ([facility]) . 02 Note: Note 02 The [...] Low,>-Panic High,A-Abnormal,AA-Critical Abnormal Performed at: [address] [address] Christina Burden MD, CBC AUTO DIFFon 08-27-2022 BASO # 0.0 103/ul Normal 0.0-0.1 [facility] Comment on above: Performed By: #### C BC #### [facility] [address] [place], [place] [address] Dr. Sarah Church Basophils/100 WBC (Bld) 0.5 % Normal 0.2-2.0 [facility] Comment on above: Performed By: #### C BC #### [facility] [address] [place] [address] Dr. Sarah Church EO # 0.2 103/ul Normal 0.0-0.7 [facility] Comment on above: Performed By: #### C BC #### [facility] [address] [place] [address] Dr. Sarah Church Eosinophils/100 WBC (Bld) 2.2 % Normal 0.9-7.0 [facility] Comment on above: Performed By: #### C BC #### [facility] [address] [place] [address] Dr. Sarah Church Erythrocyte distribution width (RBC) [Ratio] 12.5 % Normal 11.0-15.0 [facility] Comment on above: Performed By: #### C BC #### [facility] [address] [place] [address] Dr. Sarah Church Hematocrit (Bld) [Volume fraction] 44.1 % Normal 36.0-48.0 [facility] Comment on above: Performed By: #### C BC #### [facility] [address] [place] [address] Dr. Sarah Church Hemoglobin (Bld) [Mass/Vol] 15.1 g/dL Normal 12.0-16.0 [facility] Comment on above: Performed By: #### C BC #### [facility] [address] [place] [address] Dr. Sarah Church IG # 0.02 10e3/ul Normal 0.00-0.03 [facility] Comment on above: Performed By: #### C BC #### [facility] [address] [place] [address] Dr. Sarah Church IG % 0.2 % Normal 0.0-0.5 [facility] Comment on above: Performed By: #### C BC #### [facility] [address] [place] [address] Dr. Sarah Church LYMPH # 2.9 103/ul Normal 1.2-3.8 [facility] Comment on above: Performed By: #### C BC #### [facility] [address] [place] [address] Dr. Sarah Church Lymphocytes/100 WBC (Bld) 33.4 % Normal 20.5-60.0 [facility] Comment on above: Performed By: #### C BC #### [facility] [address] [place] [address] Dr. Sarah Church MANUAL DIFF REQ NO Normal [facility] Comment on above: Performed By: #### C BC #### [facility] [address] [place] [address] Dr. Sarah Church MCH (RBC) [Entitic mass] 29.1 pg Normal 26.7-34.0 [facility] Comment on above: Performed By: #### C BC #### [facility] [address] [place] [address] Dr. Sarah Church MCHC (RBC) [Mass/Vol] 34.2 g/dL Normal 29.9-35.2 [facility] Comment on above: Performed By: #### C BC #### [facility] [address] [place] [address] Dr. Sarah Church MCV (RBC) [Entitic vol] 85.0 fL Normal 81.0-99.0 [facility] Comment on above: Performed By: #### C BC #### [facility] [address] [place] [address] Dr. Sarah Church MONO # 0.6 103/ul Normal 0.3-0.8 [facility] Comment on above: Performed By: #### C BC #### [facility] [address] [place] [address] Dr. Sarah Church Monocytes/100 WBC (Bld) 6.8 % Normal 1.7-12.0 [facility] Comment on above: Performed By: #### C BC #### [facility] [address] [place] [address] Dr. Sarah Church NEUT # 4.9 103/ul Normal 1.4-6.5 [facility] Comment on above: Performed By: #### C BC #### [facility] [address] [place] [address] Dr. Sarah Church Neutrophils/100 WBC (Bld) 56.9 % Normal 43.0-75.0 [facility] Comment on above: Performed By: #### C BC #### [facility] [address] [place] [address] Dr. Sarah Church Platelet mean volume (Bld) [Entitic vol] 10.8 fL Normal 9.5-13.5 [facility] Comment on above: Performed By: #### C BC #### [facility] [address] [place] [address] [address] Sarah Church PLT 276 103/ul Normal 150-450 [facility] Comment on above: Performed By: #### C BC #### [facility] [address] [place] [address] Dr. Sarah Church RBC 5.19 106/ul Normal 4.20-5.40 [facility] Comment on above: Performed By: #### C BC #### [facility] [address] [place] [address] Dr. Sarah Church WBC 8.6 103/ul Normal 4.0-11.0 [facility] Comment on above: Performed By: #### C BC #### [facility] [address] [place] [address] Dr. Sarah Church LIPID PROFILEon 08-27-2022 CHOL-HDL RATIO NORM SEE BELOW Normal [facility] Comment on above: Result Comment: 3.3 - 4.4 LOW RISK 4.4 - 7.1 AVERAGE RISK 7.1 - 11.0 MODERATE RISK >11.0 HIGH RISK Performed By: #### L IPID, CMP #### [facility] [address] [place] [address] Dr. Sarah Church Cholesterol [Mass/Vol] 110 mg/dL Normal <=200 [facility] Comment on above: Performed By: #### L IPID, CMP #### [facility] [address] [place] [address] Dr. Sarah Church Cholesterol in HDL [Mass/Vol] 33 mg/dL Critically low 40-60 [facility] Comment on above: Performed By: #### L IPID, CMP #### [facility] [address] [place] [address] [address] Sarah Church Cholesterol in LDL [Mass/Vol] 58.0 mg/dL Normal [facility] Comment on above: Performed By: #### L IPID, CMP #### [facility] [address] [place] [address] [address] Sarah Church Cholesterol.total/C holesterol in HDL [Mass ratio] 3.3 {ratio} Normal [facility] Comment on above: Performed By: #### L IPID, CMP #### [facility] [address] [place] [address] [address] Sarah Church HDL NORMAL > or = 60 mg/dl - LO W CARDIOVASCULAR RISK <40 mg/dl - HIGH CARDIOVASCULAR RISK Normal [facility] Comment on above: Performed By: #### L IPID, CMP #### [facility] [address] [place] [address] Dr. Sarah Church LDL CALC NORMAL SEE BELOW Normal [facility] Comment on above: Result Comment: <100 mg/dl OPTIMAL 100 - 129 mg/dl NEAR OR ABOVE OPTIMAL 130 - 159 mg/dl BORDERLINE HIGH 160 - 189 mg/dl HIGH >190 mg/dl VERY HIGH Performed By: #### L IPID, CMP #### [facility] [address] [place] [address] [address] Sarah Church Triglyceride [Mass/Vol] 95 mg/dL Normal <=150 [facility] Comment on above: Performed By: #### L IPID, CMP #### [facility] [address] [place] [address] [address] Sarah Church VLDL CALC 19.0 mg/dL Normal [facility] Comment on above: Performed By: #### L IPID, CMP #### [facility] [address] [place] [address] [address] Sarah Church PROF 14(COMP METB)on 023 Albumin [Mass/Vol] 3.3 g/dL Critically low 3.4-5.[address] [facility] Comment on above: Performed By: #### L IPID, CMP #### [facility] [address] [place] [address] Dr. Sarah Church Albumin/Globulin [Mass ratio] 0.8 {ratio} Normal [facility] Comment on above: Performed By: #### L IPID, CMP #### [facility] [address] [place] [address] [address] Sarah Church ALP [Catalytic activity/Vol] 100 U/L Normal 46-116 [facility] Comment on above: Performed By: #### L IPID, CMP #### [facility] [address] [place] [address] [address] Sarah Church ALT [Catalytic activity/Vol] 74 U/L Critically high 14-59 [facility] Comment on above: Performed By: #### L IPID, CMP #### [facility] [address] [place] [address] [address] Sarah Church Anion gap [Moles/Vol] 13.2 mmol/L Normal [facility] Comment on above: Performed By: #### L IPID, CMP #### [facility] [address] [place] [address] [address] Sarah Church AST [Catalytic activity/Vol] 42 U/L Critically high 15-37 [facility] Comment on above: Performed By: #### L IPID, CMP #### [facility] [address] [place] [address] [address] Sarah Church Bilirubin [Mass/Vol] 0.4 mg/dL Normal 0.2-1.0 [facility] Comment on above: Performed By: #### L IPID, CMP #### [facility] [address] [place] [address] [address] Sarah Chucrh Calcium [Mass/Vol] 9.2 mg/dL Normal 8.5-10.1 [facility] Comment on above: Performed By: #### L IPID, CMP #### [facility] [address] [place] [address] [address] Sarah Church Chloride [Moles/Vol] 99 mmol/L Normal 98-107 [facility] Comment on above: Performed By: #### L IPID, CMP #### [facility] [address] [place] [address] Dr. Sarah Church CO2 [Moles/Vol] 30.4 mmol/L Normal 21.0-32.0 [facility] Comment on above: Performed By: #### L IPID, CMP #### [facility] [address] [place] [address] [address] Sarah Church Creatinine [Mass/Vol] 0.78 mg/dL Normal 0.55-1.02 [facility] Comment on above: Performed By: #### L IPID, CMP #### [facility] [address] [place] [address] Dr. Sarah Church EGFR-AF COMORAN >60 Normal >=60 [facility] Comment on above: Performed By: #### L IPID, CMP #### [facility] [address] [place] [address] Dr. Sarah Church EGFR-NON AF COMORAN >60 Normal >=60 [facility] Comment on above: Performed By: #### L IPID, CMP #### [facility] [address] [place] [address] [address] Sarah Church Globulin (S) [Mass/Vol] 4.0 g/dL Normal [facility] Comment on above: Performed By: #### L IPID, CMP #### [facility] [address] [place] [address] Dr. Sarah Church Glucose [Mass/Vol] 255 mg/dL Critically high 74-106 [facility] Comment on above: Performed By: #### L IPID, CMP #### [facility] [address] [place] [address] [address] Sarah Church Potassium [Moles/Vol] 3.6 mmol/L Normal 3.5-5.1 [facility] Comment on above: Performed By: #### L IPID, CMP #### [facility] [address] [place] [address] [address] Sarah Church Protein [Mass/Vol] 7.3 g/dL Normal 6.4-8.2 [facility] Comment on above: Performed By: #### L IPID, CMP #### [facility] [address] [place] [address] [address] Sarah Church Sodium [Moles/Vol] 139 mmol/L Normal 136-145 [facility] Comment on above: Performed By: #### L IPID, CMP #### [facility] [address] [place] [address] [address] Sarah Church Urea nitrogen [Mass/Vol] 8.0 mg/dL Normal 7.0-18.0 [facility] Comment on above: Performed By: #### L IPID, CMP #### [facility] [address] [place] [address] [address] Sarah Church Urea nitrogen/Creatinine [Mass ratio] 10.3 mg/mg Normal [facility] Comment on above: Performed By: #### L IPID, CMP #### [facility] [address] [place] [address] [address] Sarah Church 37on 08-10-2022 37 -Start hydrochlorothiazide 12.5 mg in the morning -Check labs 1 week after starting new medication -Take blood pressure to appointment with Dr. Dela Cruz for correlation [facility] Office Visiton 08-10-2022 Follow-up visit [id number] Qi Ramosfrancisco Sidhu 1970 F Date Provider Department Center 08/10/2022 [id number] BENITES [facility] No family history on file Level of Service:77025 [place] OFFICE/OUTPATIENT ESTABLISHED MOD MDM 30-39 MIN Reason for Visit and Comments: Coronary Artery Disease [187] Hypertension [569663] Normal [facility] MG MAMM SCREEN 3D ROB CADon 07-20-2022 MG MAMM SCREEN 3D ROB CAD Patient: ZOILA RAMOS Exam Date: 07/20/2022 : 1970 Gender:F Ordering : DR SHAYY DELA CRUZ M.D. Admission #: [id number] Family : Order #: [id number] CLICK HERE TO VIEW EXAM RADIOLOGY REPORT PROCEDURE: MAMMOGRAM SCREENING 3D BILATERAL CAD COMPARISON: MAMMO ROB SCREEN W CAD DIG, 05/16/2012. INDICATIONS: Screening mammography Calculator Name NCI Breast Cancer Risk Assessment Tool 5 Year Breast Cancer Risk 1.20% Lifetime Breast Cancer Risk 10.80% Personal Breast Cancer No Personal Ovarian Cancer No Treatments None Family Cancers None LOCATION: [facility] BREAST COMPOSITION: Almost entirely fatty. FINDINGS: DIAGNOSTIC [...] Lan M.D. on 07/21/2022 at 08:24 Normal [facility] PROF CHEM 8 (BAS METB)on Anion gap [Moles/Vol] 14.5 mmol/L Normal [facility] Comment on above: Performed By: #### B MP #### [facility] [address] [place] [address] [address] Sarah Church Calcium [Mass/Vol] 9.8 mg/dL Normal 8.5-10.1 [facility] Comment on above: Performed By: #### B MP #### [facility] [address] [place] [address] [address] Sarah Church Chloride [Moles/Vol] 99 mmol/L Normal 98-107 [facility] Comment on above: Performed By: #### B MP #### [facility] [address] [place] [address] [address] Sarah Church CO2 [Moles/Vol] 27.2 mmol/L Normal 21.0-32.0 [facility] Comment on above: Performed By: #### B MP #### [facility] [address] [place] [address] [address] Sarah Church Creatinine [Mass/Vol] 0.80 mg/dL Normal 0.55-1.02 [facility] Comment on above: Performed By: #### B MP #### [facility] [facility] [address] [address] [address] Sarah Church EGFR-AF COMORAN >60 Normal >=60 [facility] Comment on above: Performed By: #### B MP #### [facility] [address] [address] [address] Sarah Church EGFR-NON AF COMORAN >60 Normal >=60 [facility] Comment on above: Performed By: #### B MP #### [facility] [address] [address] [address] Sarah Church Glucose [Mass/Vol] 458 mg/dL Critically high 74-106 T [facility] Comment on above: Performed By: #### B MP #### [facility] [address] [address] [address] Sarah Church Potassium [Moles/Vol] 4.7 mmol/L Normal 3.5-5.1 [facility] Comment on above: Performed By: #### B MP #### [facility] [address] [address] [address] Sarah Church Sodium [Moles/Vol] 136 mmol/L Normal 136-145 [facility] Comment on above: Performed By: #### B MP #### [facility] [address] [address] [address] Sarah Church Urea nitrogen [Mass/Vol] 15.0 mg/dL Normal 7.0-18.0 [facility] Comment on above: Performed By: #### B MP #### [facility] [address] [address] [address] Sarah Church Urea nitrogen/Creatinine [Mass ratio] 18.8 mg/mg Normal [facility] Comment on above: Performed By: #### B MP #### [facility] [address] [address] [address] Sarah Church Orders Onlyon 06-04-2022 Orders Only [id number] Arlette Ramos 1970 F Date Provider Department Center 06/04/2022 JESSICA MAX [facility] No family history on file Normal [facility] 36on 06-01-2022 36 Patient called and i [...] her high cholesterol . HELP!! lol Normal [facility] Orders Onlyon 06-01-2022 Orders Only [id number] Arlette Ramos 1970 F Date Provider Department Center 06/01/2022 MALCOLM SCHAFER MAD[facility]N [facility] [facility] No family history on file Normal [facility] 36on 05-28-2022 36 Spoke with flaca she states to call in script of losartan 25 mg QD Normal [facility] GLYCOHEMOGLOBIN A1Con 2022 ADA RECOMMENDATION SEE BELOW Normal [facility] Comment on above: Result Comment: ADA RECOMMENDED LIMIT 4.0 - 6.0 ADA THERAPEUTIC TARGET < 7.0 ACTION SUGGESTED > 7.0 Performed By: #### A 1C ####[facility] [address] [address]Dr. Sarah Church Glucose [Mass/Vol] 266 mg/dL Normal [facility] Comment on above: Performed By: #### A 1C ####[facility] [address] [address]Dr. Sarah Church HbA1c (Bld) [Mass fraction] 10.9 % Critically high 4.5-6.2 [facility] Comment on above: Performed By: #### A 1C ####[facility] [address] [address]Dr. Sarah Church Office Visiton 05-19-2022 Follow-up visit [id number] Arlette Ramos 1970 F Date Provider Department Center 05/19/2022 MALCOLM SCHAFER [facility] No family history on file Level of Service:71227 MA OFFICE/OUTPATIENT ESTABLISHED MOD MDM 30-39 MIN Reason for Visit and Comments: Coronary Artery Disease [187] Hyperlipidemia [182] Normal [facility] XR HIP RT 2 3V W PELVISon [...] JAVAD POOLERODRÍGUEZ Date: 2022-04-06 21:15 Normal [facility] CBC AUTO DIFFon 11-05-2021 BASO # 0.1 103/ul Normal 0.0-0.1 [facility] Comment on above: Performed By: #### C BC #### [facility] [address] [address] [address] Sarah Church Basophils/100 WBC (Bld) 0.4 % Normal 0.2-2.0 [facility] Comment on above: Performed By: #### C BC #### [facility] [address] [place] [address] Dr. Sarah Church EO # 0.2 103/ul Normal 0.0-0.7 [facility] Comment on above: Performed By: #### C BC #### [facility] [address] [address] [address] Sarah Church Eosinophils/100 WBC (Bld) 1.3 % Normal 0.9-7.0 [facility] Comment on above: Performed By: #### C BC #### [facility] [address] [place] [address] Dr. Sarah Church Erythrocyte distribution width (RBC) [Ratio] 12.3 % Normal 11.0-15.0 [facility] Comment on above: Performed By: #### C BC #### [facility] [address] [place] [address] Dr. Sarah Church Hematocrit (Bld) [Volume fraction] 43.1 % Normal 36.0-48.0 [facility] Comment on above: Performed By: #### C BC #### [facility] [address] [address] [address] Sarah Church Hemoglobin (Bld) [Mass/Vol] 14.6 g/dL Normal 12.0-16.0 [facility] Comment on above: Performed By: #### C BC #### [facility] [address] [place] [address] Dr. Sarah Church IG # 0.04 10e3/ul Critically high 0.00-0.03 [facility] Comment on above: Performed By: #### C BC #### [facility] [address] [place] [address] Dr. Sarah Church IG % 0.3 % Normal 0.0-0.5 [facility] Comment on above: Performed By: #### C BC #### [facility] [address] [place] [address] Dr. Sarah Church LYMPH # 1.6 103/ul Normal 1.2-3.8 [facility] Comment on above: Performed By: #### C BC #### [facility] [address] [place] [address] Dr. Sarah Church Lymphocytes/100 WBC (Bld) 12.5 % Critically low 20.5-60.0 [facility] Comment on above: Performed By: #### C BC #### [facility] [address] [place] [address] Dr. Sarah Church MANUAL DIFF REQ NO Normal [facility] Comment on above: Performed By: #### C BC #### [facility] [address] [place] [address] Dr. Sarah Church MCH (RBC) [Entitic mass] 29.4 pg Normal 26.7-34.0 [facility] Comment on above: Performed By: #### C BC #### [facility] [address] [place] [address] Dr. Sarah Church MCHC (RBC) [Mass/Vol] 33.9 g/dL Normal 29.9-35.2 [facility] Comment on above: Performed By: #### C BC #### [facility] [address] [place] [address] Dr. Sarah Church MCV (RBC) [Entitic vol] 86.7 fL Normal 81.0-99.0 [facility] Comment on above: Performed By: #### C BC #### [facility] [address] [place] [address] Dr. Sarah Church MONO # 1.0 103/ul Critically high 0.3-0.8 [facility] Comment on above: Performed By: #### C BC #### [facility] [address] [place] [address] Dr. Sarah Church Monocytes/100 WBC (Bld) 7.7 % Normal 1.7-12.0 [facility] Comment on above: Performed By: #### C BC #### [facility] [address] [place] [address] Dr. Sarah Church NEUT # 9.6 103/ul Critically high 1.4-6.5 [facility] Comment on above: Performed By: #### C BC #### [facility] [address] [place] [address] Dr. Sarah Church Neutrophils/100 WBC (Bld) 77.8 % Critically high 43.0-75.0 [facility] Comment on above: Performed By: #### C BC #### [facility] [address] [place] [address] Dr. Sarah Church Platelet mean volume (Bld) [Entitic vol] 11.0 fL Normal 9.5-13.5 [facility] Comment on above: Performed By: #### C BC #### [facility] [address] [place] [address] Dr. Sarah Church PLT 220 103/ul Normal 150-450 [facility] Comment on above: Performed By: #### C BC #### [facility] [address] [place] [address] Dr. Sarah Church RBC 4.97 106/ul Normal 4.20-5.40 [facility] Comment on above: Performed By: #### C BC #### [facility] [address] [place] [address] Dr. Sarah Church WBC 12.4 103/ul Critically high 4.0-11.0 [facility] Comment on above: Performed By: #### C BC #### [facility] [address] [place] [address] Dr. Sarah Church GROUP A STREP CULTUREon S. pyogenes Ag Ql (Unsp spec) Culture Observations: NEGATIVE FOR GROUP A STREPTOCOCCUS. Normal [facility] Comment on above: Performed By: #### G RASTCX, SSCRN ####[facility] [address] [address]Dr. Sarah Church POINT OF CARE GLUCOSEon 07-0 Glucose [Mass/Vol] 214 mg/dL Critically high 74-106 T [facility] Comment on above: Performed By: #### P OCGLUC #### [facility] [address] [address] [address] Sarah Church STREPT SCREENon 11-05-2021 STREP SCREEN A Negative Normal NEGATIVE [facility] Comment on above: Performed By: #### G RASTCX, SSCRN ####[facility] [address] [address]Dr. Sarah Church CBC AUTO DIFFon 10-16-2021 BASO # 0.1 103/ul Normal 0.0-0.1 [facility] Comment on above: Performed By: #### C BC #### [facility] [address] [place] [address] Dr. Sarah Church Basophils/100 WBC (Bld) 0.8 % Normal 0.2-2.0 [facility] Comment on above: Performed By: #### C BC #### [facility] [address] [place] [address] Dr. Sarah Church EO # 0.3 103/ul Normal 0.0-0.7 [facility] Comment on above: Performed By: #### C BC #### [facility] [address] [place] [address] Dr. Sarah Church Eosinophils/100 WBC (Bld) 3.4 % Normal 0.9-7.0 [facility] Comment on above: Performed By: #### C BC #### [facility] [address] [place] [address] Dr. Sarah Church Erythrocyte distribution width (RBC) [Ratio] 12.6 % Normal 11.0-15.0 [facility] Comment on above: Performed By: #### C BC #### [facility] [address] [place] [address] Dr. Sarah Church Hematocrit (Bld) [Volume fraction] 45.4 % Normal 36.0-48.0 [facility] Comment on above: Performed By: #### C BC #### [facility] [address] [place] [address] Dr. Sarah Church Hemoglobin (Bld) [Mass/Vol] 15.0 g/dL Normal 12.0-16.0 [facility] Comment on above: Performed By: #### C BC #### [facility] [address] [place] [address] Dr. Sarah Church IG # 0.02 10e3/ul Normal 0.00-0.03 [facility] Comment on above: Performed By: #### C BC #### [facility] [address] [place] [address] Dr. Sarah Church IG % 0.2 % Normal 0.0-0.5 [facility] Comment on above: Performed By: #### C BC #### [facility] [address] [place] [address] Dr. Sarah Church LYMPH # 2.7 103/ul Normal 1.2-3.8 [facility] Comment on above: Performed By: #### C BC #### [facility] [address] [place] [address] Dr. Sarah Church Lymphocytes/100 WBC (Bld) 31.0 % Normal 20.5-60.0 [facility] Comment on above: Performed By: #### C BC #### [facility] [address] [place] [address] Dr. Sarah Church MANUAL DIFF REQ NO Normal [facility] Comment on above: Performed By: #### C BC #### [facility] [address] [place] [address] Dr. Sarah Church MCH (RBC) [Entitic mass] 29.3 pg Normal 26.7-34.0 [facility] Comment on above: Performed By: #### C BC #### [facility] [address] [address] [address] Sarah Church MCHC (RBC) [Mass/Vol] 33.0 g/dL Normal 29.9-35.2 [facility] Comment on above: Performed By: #### C BC #### [facility] [address] [place] [address] Dr. Sarah Church MCV (RBC) [Entitic vol] 88.7 fL Normal 81.0-99.0 [facility] Comment on above: Performed By: #### C BC #### [facility] [address] [place] [address] Dr. Sarah Church MONO # 0.6 103/ul Normal 0.3-0.8 [facility] Comment on above: Performed By: #### C BC #### [facility] [address] [place] [address] Dr. Sarah Church Monocytes/100 WBC (Bld) 6.5 % Normal 1.7-12.0 [facility] Comment on above: Performed By: #### C BC #### [facility] [address] [place] [address] Dr. Sarah Church NEUT # 5.0 103/ul Normal 1.4-6.5 [facility] Comment on above: Performed By: #### C BC #### [facility] [address] [place] [address] Dr. Sarah Church Neutrophils/100 WBC (Bld) 58.1 % Normal 43.0-75.0 [facility] Comment on above: Performed By: #### C BC #### [facility] [address] [place] [address] Dr. Sarah Church Platelet mean volume (Bld) [Entitic vol] 11.0 fL Normal 9.5-13.5 [facility] Comment on above: Performed By: #### C BC #### [facility] [address] [place] [address] Dr. Sarah Church PLT 226 103/ul Normal 150-450 [facility] Comment on above: Performed By: #### C BC #### [facility] [address] [place] [address] Dr. Sarah Church RBC 5.12 106/ul Normal 4.20-5.40 [facility] Comment on above: Performed By: #### C BC #### [facility] [address] [address] [address] Sarah Church WBC 8.6 103/ul Normal 4.0-11.0 [facility] Comment on above: Performed By: #### C BC #### [facility] [address] [address] [address] Sarah Church GLYCOHEMOGLOBIN A1Con 2021 ADA RECOMMENDATION SEE BELOW Normal [facility] Comment on above: Result Comment: ADA RECOMMENDED LIMIT 4.0 - 6.0 ADA THERAPEUTIC TARGET < 7.0 ACTION SUGGESTED > 7.0 Performed By: #### A 1C ####[facility] [address] [address]DrCoretta Church Glucose [Mass/Vol] 275 mg/dL Normal [facility] Comment on above: Performed By: #### A 1C ####[facility] [address] [address]DrCoretta Church HbA1c (Bld) [Mass fraction] 11.2 % Critically high 4.5-6.2 [facility] Comment on above: Performed By: #### A 1C ####[facility] [address] [address]Dr. Sarah Church LIPID PROFILEon 10-16-2021 CHOL-HDL RATIO NORM SEE BELOW Normal [facility] Comment on above: Result Comment: 3.3 - 4.4 LOW RISK 4.4 - 7.1 AVERAGE RISK 7.1 - 11.0 MODERATE RISK >11.0 HIGH RISK Performed By: #### L IPID, CMP ####[facility] [address] [address]DrCoretta Church Cholesterol [Mass/Vol] 159 mg/dL Normal <=200 [facility] Comment on above: Performed By: #### L IPID, CMP ####[facility] [address] [address]DrCoretta Church Cholesterol in HDL [Mass/Vol] 41 mg/dL Normal 40-60 [facility] Comment on above: Performed By: #### L IPID, CMP ####[facility] [address] [address]Dr. Sarah Church Cholesterol in LDL [Mass/Vol] 102.6 mg/dL Normal [facility] Comment on above: Performed By: #### L IPID, CMP ####[facility] [address] [address]Dr. Sarah Church Cholesterol.total/C holesterol in HDL [Mass ratio] 3.9 {ratio} Normal [facility] Comment on above: Performed By: #### L IPID, CMP ####[facility] [address] [address]Dr. Sarah Church HDL NORMAL > or = 60 mg/dl - LO W CARDIOVASCULAR RISK <40 mg/dl - HIGH CARDIOVASCULAR RISK Normal [facility] Comment on above: Performed By: #### L IPID, CMP ####[facility] [address] [address]Dr. Sarah Church LDL CALC NORMAL SEE BELOW Normal [facility] Comment on above: Result Comment: <100 mg/dl OPTIMAL 100 - 129 mg/dl NEAR OR ABOVE OPTIMAL 130 - 159 mg/dl BORDERLINE HIGH 160 - 189 mg/dl HIGH >190 mg/dl VERY HIGH Performed By: #### L IPID, CMP ####[facility] [address] [address]Dr. Sarah Church Triglyceride [Mass/Vol] 77 mg/dL Normal <=150 [facility] Comment on above: Performed By: #### L IPID, CMP ####[facility] [address] [address]Dr. Sarah Church VLDL CALC 15.4 mg/dL Normal [facility] Comment on above: Performed By: #### L IPID, CMP ####[facility] [address] [address]Dr. Sarah Church MICROALBUMIN, RAND URon 06-1 mALB 2.0 mg/L Normal <=30.0 [facility] Comment on above: Performed By: #### M ALBR #### [facility] [address] [place], [place] [address] Dr. Sarah Church PROF 14(COMP METB)on 022 Albumin [Mass/Vol] 3.5 g/dL Normal 3.4-5.0 [facility] Comment on above: Performed By: #### L IPID, CMP ####[facility] [address] [id number] Church Albumin/Globulin [Mass ratio] 0.8 {ratio} Normal [facility] Comment on above: Performed By: #### L IPID, CMP ####[facility] [address] [address]DrCoretta Church ALP [Catalytic activity/Vol] 85 U/L Normal 46-116 [facility] Comment on above: Performed By: #### L IPID, CMP ####[facility] [address] [address]DrCoretta Church ALT [Catalytic activity/Vol] 59 U/L Normal 14-59 [facility] Comment on above: Performed By: #### L IPID, CMP ####[facility] [address] [address]DrCoretta Church Anion gap [Moles/Vol] 15.1 mmol/L Normal [facility] Comment on above: Performed By: #### L IPID, CMP ####[facility] [address] [address]Dr. Sarah Church AST [Catalytic activity/Vol] 32 U/L Normal 15-37 [facility] Comment on above: Performed By: #### L IPID, CMP ####[facility] [address] [address]DrCoretta Church Bilirubin [Mass/Vol] 0.4 mg/dL Normal 0.2-1.0 [facility] Comment on above: Performed By: #### L IPID, CMP ####[facility] [address] [address]DrCoretta Church Calcium [Mass/Vol] 9.0 mg/dL Normal 8.5-10.1 [facility] Comment on above: Performed By: #### L IPID, CMP ####[facility] [address] [address]Dr. Sarah Church Chloride [Moles/Vol] 102 mmol/L Normal 98-107 [facility] Comment on above: Performed By: #### L IPID, CMP ####[facility] [address] [address]Dr. Corriebrenden Church CO2 [Moles/Vol] 30.2 mmol/L Normal 21.0-32.0 [facility] Comment on above: Performed By: #### L IPID, CMP ####[facility] [address] [place], [place] [address]Dr. Sarah Church Creatinine [Mass/Vol] 0.81 mg/dL Normal 0.55-1.02 [facility] Comment on above: Performed By: #### L IPID, CMP ####[facility] [address] [place], [place] [address]Dr. Corriebrenden Ranjit EGFR-AF COMORAN >60 Normal >=60 [facility] Comment on above: Performed By: #### L IPID, CMP ####[facility] [address] [place], [place] [address]Dr. Corriebrenden Ranjit EGFR-NON AF COMORAN >60 Normal >=60 [facility] Comment on above: Performed By: #### L IPID, CMP ####[facility] [address] [place], [place] [address]Dr. Sarah Church Globulin (S) [Mass/Vol] 3.9 g/dL Normal [facility] Comment on above: Performed By: #### L IPID, CMP ####[facility] [address] [place], [place] [address]Dr. Sarah Church Glucose [Mass/Vol] 218 mg/dL Critically high 74-106 T [facility] Comment on above: Performed By: #### L IPID, CMP ####[facility] [address] [place], [place] [address]Dr. Sarah Church Potassium [Moles/Vol] 4.3 mmol/L Normal 3.5-5.1 [facility] Comment on above: Performed By: #### L IPID, CMP ####[facility] [address] [address]Dr. Sarah Church Protein [Mass/Vol] 7.4 g/dL Normal 6.4-8.2 [facility] Comment on above: Performed By: #### L IPID, CMP ####[facility] [address] [address]Dr. Sarah Church Sodium [Moles/Vol] 143 mmol/L Normal 136-145 [facility] Comment on above: Performed By: #### L IPID, CMP ####[facility] [address] [address]Dr. Sarah Church Urea nitrogen [Mass/Vol] 14.0 mg/dL Normal 7.0-18.0 [facility] Comment on above: Performed By: #### L IPID, CMP ####[facility] [address] [address]Dr. Sarah Church Urea nitrogen/Creatinine [Mass ratio] 17.2 mg/mg Normal [facility] Comment on above: Performed By: #### L IPID, CMP ####[facility] [address] [address]Dr. Sarah Church Vital Signs Date Time Vital Sign Value Performing Clinician Facility 08-24-2023 15:08040 Body height 157.48 cm [facility] 08-24-2023 15:[id number] Body mass index (BMI) [Ratio] 37.5 kg/m2 [facility] 08-24-2023 15:[id number] Body weight 93.21 kg [facility] 08-19-2023 10:43-0400 Body height 157.48 cm MD Shayy Dela Cruz Work Phone: [facility] 08-19-2023 10:43-0400 Body mass index (BMI) [Ratio] 37.5 kg/m2 MD Shayy Dela Cruz Work Phone: [facility] 08-19-2023 10:43-0400 Body weight 93.09 kg MD Shayy Dela Cruz Work Phone: [facility] 08-19-2023 10:43-0400 Diastolic blood pressure 79 mm[Hg] MD Shayy Dela Cruz Work Phone: [facility] 08-19-2023 10:43-0400 Heart rate 83 /min MD Shayy Dela Cruz Work Phone: [facility] 08-19-2023 10:43-0400 Systolic blood pressure 135 mm[Hg] MD Shayy Dela Cruz Work Phone: [facility] 07-28-2023 14:22-0400 Body height 157.48 cm MD Shayy Dela Cruz Work Phone: [facility] 07-28-2023 14:22-0400 Body mass index (BMI) [Ratio] 37.6 kg/m2 MD Shayy Dela Cruz Work Phone: [facility] 07-28-2023 14:22-0400 Body weight 93.44 kg MD Shayy Dela Cruz Work Phone: [facility] 07-28-2023 14:22-0400 Diastolic blood pressure 84 mm[Hg] MD Shayy Dela Cruz Work Phone: [facility] 07-28-2023 14:22-0400 Heart rate 83 /min MD Shayy Dela Cruz Work Phone: [facility] 07-28-2023 14:22-0400 Respiratory rate 18 /min MD Shayy Dela Cruz Work Phone: [facility] 07-28-2023 14:22-0400 SaO2% (BldA) [Mass fraction] 97 % MD Shayy Dela Cruz Work Phone: [facility] 07-28-2023 14:22-0400 Systolic blood pressure 140 mm[Hg] MD Shayy Dela Cruz Work Phone: [facility] 07-19-2023 10:57-0400 Body height 157.48 cm MD Shayy Dela Cruz Work Phone: [facility] 07-19-2023 10:57-0400 Body mass index (BMI) [Ratio] 37.1 kg/m2 MD Shayy Dela Cruz Work Phone: [facility] 07-19-2023 10:57-0400 Body weight 92.07 kg MD Shayy Dela Cruz Work Phone: [facility] 07-19-2023 10:57-0400 Diastolic blood pressure 68 mm[Hg] MD Shayy Dela Cruz Work Phone: [facility] 07-19-2023 10:57-0400 Heart rate 89 /min MD Shayy Dela Cruz Work Phone: [facility] 07-19-2023 10:57-0400 Systolic blood pressure 132 mm[Hg] MD Shayy Dela Cruz Work Phone: [facility] 05-25-2023 11:00-0500 Body height 157.48 cm Cathie Scally Other [facility] 05-25-2023 11:00-0500 Body mass index (BMI) [Ratio] 37.23 kg/m2 Cathie Scally Other [employer] [facility] [employer] Other 05-25-2023 11:00-0500 Body weight 92.35 kg Cathie Scally Other [facility] 05-25-2023 11:00-0500 Diastolic blood pressure 71 mm[Hg] Cathie Scally Other [facility] 05-25-2023 11:00-0500 Respiratory rate 18 /min Cathie Scally Other [employer] Other 05-25-2023 11:00-0500 SaO2% (BldA) [Mass fraction] 95 % Cathie Scally Other [employer] Other 05-25-2023 11:00-0500 Systolic blood pressure 139 mm[Hg] Cathie Vargas Other [facility] 04-15-2023 11:00-0500 Body height 157.48 cm Shayy Dela Cruz Other [facility] 04-15-2023 11:00-0500 Body mass index (BMI) [Ratio] 37.49 kg/m2 Shayy Dela Cruz Other [employer] Other 04-15-2023 11:00-0500 Body weight 92.99 kg Shayy Dela Cruz Other [employer] Other 04-15-2023 11:00-0500 Body weight 92.98 kg MD Shayy Dela Cruz Work Phone: [facility] 04-15-2023 11:00-0500 Diastolic blood pressure 84 mm[Hg] Shayy Dela Cruz Other [facility] 04-15-2023 11:00-0500 Systolic blood pressure 142 mm[Hg] Shayy Dela Cruz Other [facility] 06-22-2022 13:30-0500 Body height 157.48 cm Shayy Dela Cruz Other [employer] Other 06-22-2022 13:30-0500 Body mass index (BMI) [Ratio] 36.94 kg/m2 Shayy Dela Cruz Other [employer] Other 06-22-2022 13:30-0500 Body weight 91.63 kg Shayy Dela Cruz Other [employer] Other 06-22-2022 13:30-0500 Diastolic blood pressure 74 mm[Hg] Shayy Dela Cruz Other [employer] Other 06-22-2022 13:30-0500 SaO2% (BldA) [Mass fraction] 97 % Shayy Dela Cruz Other [facility] [employer] Other 06-22-2022 13:30-0500 Systolic blood pressure 112 mm[Hg] Shayy Dela Cruz Other [facility] [employer] Other Encounters Encounter Date Encounter Type Care Provider Facility Start: 08-24-2023 End: 08-24-2023 ambulatory [facility] Work Phone: Start: 08-24-2023 End: 08-24-2023 Patient encounter procedure [facility] Work Phone: Start: 08-19-2023 End: 08-19-2023 ambulatory MD Shayy Dela Cruz Work Phone: [facility] Work Phone: Start: 08-19-2023 End: 08-19-2023 Patient encounter procedure MD Shayy Dela Cruz Work Phone: [facility] Work Phone: Start: 07-28-2023 End: 07-28-2023 ambulatory MD Shayy Dela Cruz Work Phone: [facility] Work Phone: Start: 07-28-2023 End: 07-28-2023 Patient encounter procedure MD Shayy Dela Cruz Work Phone: [facility] Work Phone: Start: 07-19-2023 End: 07-19-2023 ambulatory MD Shayy Dela Cruz Work Phone: [facility] Work Phone: Start: 07-19-2023 End: 07-19-2023 Patient encounter procedure MD Shayy Dela Cruz Work Phone: [facility] Work Phone: Start: 07-12-2023 Non-patient / Non-visit MD Shayy Dela Cruz Work Phone: [facility] [employer] Work Phone: Start: 06-14-2023 ambulatory Brittani Law lity:[facility] Start: 06-14-2023 End: 06-14-2023 ambulatory MD Shayy Dela Cruz Work Phone: [facility] Work Phone: Start: 06-14-2023 End: 06-14-2023 Patient encounter procedure MD Shayy Dela Cruz Work Phone: [facility] Work Phone: Start: 06-06-2023 End: 06-06-2023 ambulatory Shayy Dela Cruz Other [facility] [employer] Other Start: 06-06-2023 Telephone encounter Shayy Dela Cruz [facility] Start: 05-25-2023 FQHC visit new patient Cathie Sheikh y [facility] Start: 05-25-2023 End: 05-26-2023 ambulatory MD Shayy Dela Cruz Work Phone: [facility] [employer] Other Start: 05-25-2023 End: 05-25-2023 Discharged Recurring MD Shyay Dela [facility] Work Phone: Start: 05-25-2023 Registered Recurring MD Shayy Dela Cruz [facility] Work Phone: Start: 05-25-2023 End: 05-25-2023 Patient encounter procedure MD Shayy Dela Cruz Work Phone: [facility]- Start: 05-12-2023 End: 05-12-2023 ambulatory Shayy Dela Cruz Other [employer] Other Start: 05-12-2023 Telephone encounter Shayy Dela Cruz [facility] Start: 05-10-2023 End: 05-10-2023 ambulatory Shayy Dela Cruz Other [employer] Other Start: 05-10-2023 Telephone encounter Shayy Dela Cruz [facility] Start: 04-22-2023 End: 04-22-2023 ambulatory Shayy Dela Cruz Other [employer] Other Start: 04-22-2023 Telephone encounter Shayy Jose De Jesus [facility] Start: 04-20-2023 End: 04-20-2023 ambulatory Lynne Avilat Other [employer] Other Start: 04-20-2023 Telephone encounter Lynne Hernandez [facility] Start: 04-18-2023 End: 04-18-2023 ambulatory Lynne Fitt Other [employer] Other Start: 04-18-2023 Telephone encounter Lynneana Hernandez [facility] Start: 04-15-2023 End: 04-15-2023 ambulatory Shayy Jose De Jesus Other [employer] Other Start: 04-15-2023 Office outpatient visit 15 minutes Shayy Dela Cruz [facility] Start: 04-15-2023 End: 04-15-2023 Patient encounter procedure MD Shayy Dela Cruz Work Phone: [facility] Work Phone: Start: 04-06-2023 End: 04-06-2023 ambulatory Shayy Dela Cruz Other [employer] Other Start: 04-06-2023 Telephone encounter Shayy Dela Cruz [facility] Start: 02-25-2023 End: 02-25-2023 ambulatory Shayy Dela Cruz Other [employer] Other Start: 02-25-2023 Telephone encounter Shayy Dela Cruz [facility] Start: 12-13-2022 End: 12-13-2022 ambulatory MARQUES MORCOHO [facility] Start: 10-29-2022 End: 10-29-2022 ambulatory Shayy Dela Cruz Other [employer] Other Start: 10-29-2022 Telephone encounter Shayy Dela Cruz [facility] Start: 09-20-2022 End: 09-20-2022 ambulatory Shayy Dela Cruz Facility:[facility] Start: 08-27-2022 End: 08-28-[address] SHAYY DELA CRUZ Facility:[facility] Start: 08-10-2022 End: 08-10-[address] [facility] Start: 07-20-2022 End: 07-21-[address] SHAYY DELA CRUZ Facility:[facility] Start: 07-19-2022 End: 07-19-2022 ambulatory Shayy Dela Cruz Other [employer] Other Start: 07-19-2022 Telephone encounter Shayy Dela Cruz [facility] Start: 07-12-2022 End: 07-13-[address] SHAYY DELA CRUZ Facility:[facility] Start: 07-05-2022 End: 07-05-2022 ambulatory Shayy Dela Cruz Other [employer] Other Start: 07-05-2022 Telephone encounter Shayy Dela Cruz [facility] Start: 06-28-2022 End: 06-28-2022 ambulatory Shayy Dela Cruz Other [employer] Other Start: 06-28-2022 Telephone encounter Shayy Dela Cruz [facility] Start: 06-22-2022 End: 06-22-2022 ambulatory Shayy Dela Cruz Other [employer] Other Start: 06-22-2022 Office outpatient visit 15 minutes Shayy Dela Cruz [facility] Start: 05-27-2022 End: 05-27-2022 ambulatory Shayy Dela Cruz Other [employer] Other Start: 05-27-2022 Telephone encounter Shayy Dela Cruz [facility] Start: 05-19-2022 End: 05-20-[address] SHAYY [...] Start: 05-10-2017 End: 05-11-2017 Ambulatory DEFAULT PHYSICIAN Facility:[facility] Start: 05-05-2017 End: 05-06-2017 Ambulatory DEFAULT PHYSICIAN Facility:[facility] Procedures Date Procedure Procedure Detail Performing Clinician Start: 12-13-2022 Follow-up visit Follow-up MARQUES MOROCHO Immunizations Immunization Date Immunization Notes Care Provider Fa cility 02-01-2022 influenza virus vaccine, split virus (incl. purified surface antigen) Shayy Dela Cruz Other [employer] Other 02-01-2022 influenza virus vaccine, unspecified formulation MD Shayy Dela Cruz Work Phone: [facility] Payers Date Payer Category Payer Medicare [id number] 2022 Self-pay 2021 Medicaid [id number] 2017 Unknown [id number] 1970 Unknown [id number] .. [id number] 1972 Unknown [id number] 06.17.83 [id number] 1972 Unknown [id number] 06.17.83 [id number] 1972 Unknown [id number] 2.16.84 [id number] 1972 Unknown [id number] 2.16.84 [id number] 1972 Unknown [id number] 2.16.84 [id number] 1972 Unknown [id number] 2.16.84 [id number] 1972 Unknown [id number] 2.16.84 [id number] 1972 Unknown [id number] 2.16.84 [id number] 1957 Medicaid [id number] 2. [id number] 1957 Medicare [id number] 2. [id number] Unknown Unknown [id number] 2.16.8 [id number] Unknown [id number] 2.16.8 [id number] Unknown [id number] 2.16.8 [id number] Social History Date Type Detail Facility Unknown if ever smoked [employer] Other Sex Assigned At Sex Assigned At Bir [employer] Other Start: 1970 Sex Assigned At Female F [facility] Start: 07-19-2023 Tobacco smoking status NHIS Never smoked tobacco (finding) [facility] Medical Equipment Procedure Code Equipment Code [...] 2 diabetes mellitus with hyperglycemia, unspecified whether mcc insulin use (ICD-10 - E11.65) [facility] Other 01-24-2024 Evaluation note* Encounter Date Diagnosis [...] Instructions material was published to portal May, custodial current use of insulin (ICD-10 - Z79.4) May, BMI 37.0-37.9, adult (ICD-10 - Z68.37) May, Other 05/25/2023 The patient was given a Dexcom G7 sensor sample and an 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 She was taught how to use the [...] educating the patient by Nguyễn Norwood RN, [facility]. [employer] Other 12-15-2023 Evaluation note* Encounter Date Diagnosis Assessment Notes Treatment Notes Treatment Clinical Notes Apr, Type 2 diabetes mellitus with hyperglycemia (ICD-10 - E11.65) Rx handwritten for diabetic shoes. Pt agrees to referral to specialty clinic. Continue present meds and discussed healthy diet in meantime. Apr, terminal gauger (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 of insulin (ICD-10 - Z79.4) [facility] Other 08-14-2023 NoteCardiology Clinic Note Subjective Zoila [...] Active Problem List Diagnosis Coronary arteriosclerosis in sitka artery Old myocardial infarction Sinusitis Type 1 [...] the IVC. Mitral V (more content not included)...[facility] 08-10-2022 NoteCardiology Clinic Note Subjective Zoila Ramos [...] Active Problem List Diagnosis Coronary arteriosclerosis in sitka artery Old myocardial infarction Sinusitis Type 1 [...] in size. The (more content not included)... [facility]02-21-2023 Evaluation note* Encounter Date Diagnosis Assessment Notes Treatment Notes Treatment Clinical Notes Jun, Acute non-recurrent maxillary sinusitis (ICD-10 - J01.00) Jun, Controlled type 2 diabetes mellitus with hyperglycemia, unspecified whether mcc insulin use (ICD-10 - E11.65) Once again advised management at diabetes clinic. She declines and will continue meds, followup in 3 months, and recheck labs at that time. She is eating more of a keto diet and is certain that is helping her A1C improve. Jun, Screening mammogram for breast cancer (ICD-10 - Z12.31) Zoila will call for an appt [facility] Other 01-31-2023 NoteIn light of elevated LDL will change simvastatin to lipitor 40 mg daily. Will repeat liver function and lipid level in 2 months. Staff to notify pt. Malcolm Eavns NP Division of Cardiology, [facility]- [phone] Pager- [phone] Email- [email or web address] NotePatient here for 1 year follow [...] light-headedness. All other systems reviewed and are negative.[facility] 05-19-2022 NoteUTP CARDIOLOGY PROGRESS NOTE HPI: Zoila [...] past 12 months Assessment/Plan: Coronary arteriosclerosis in sitka artery Coronary artery disease is stable, no [...] week RTC 1 month to review B/[facility] Note Hypertension is uncontrolled, Will add lisinopril 5 mg po daily, and continue metoprolol Goal b/p 130/80 or less, monitor for dry persistent cough- call office for any concerns, repeat BMP in 1 week RTC 1 month to review B/P [facility]01-18-2023 Note Coronary artery disease is stable, no concerning symptoms continue risk factor modifications- heart healthy diet, regular exercise as tolerated and continue all medications.[facility] 04-15-2022 NotePROCEDURE: XR FOOT LT MIN 3 [...] Electronically authenticated by: NARINDER LAN Date: 2022-04-15 06:08[facility]09-12-2022 NotePROCEDURE: XR TOES RT MIN 2 V HISTORY: Pain of toe of right foot ; first toe pain following injury COMPARISON: None. FINDINGS: BONES:No fracture, acute abnormality, or significant arthropathy. SOFT TISSUES:No visible soft tissue swelling. EFFUSION:None visible. OTHER: Negative. IMPRESSION: 1. No acute bone abnormality. 2. Mild degenerative joint disease. Electronically authenticated by: NARINDER LAN Date: 2022-01-11 18:48[facility] complaint+Reason for visit Narrative* Chief Complaint 3 Month Follow Up Referral Dr. Negro LAGUERRE download [facility] Work Phone: chief complaint+Reason for visit Narrative* Chief Complaint 3 Month Follow Up Referral Dr. Negro LAGUERRE download Reason for Visit Type 2 diabetes holli [facility] Work Phone: chief complaint+Reason for visit Narrative* Chief Complaint Referral Dr. Negro LAGUERRE download 3 Month Check up Reason for Visit Type 2 diabetes holli [facility] Work Phone: chief complaint+Reason for visit Narrative* Chief Complaint Referral Dr. Negro LAGUERRE download 3 Month Check up amrik reader Reason for Visit Type 2 diabetes holli itus Right wrist fracture Type 2 diabetes mellitus [facility] Work Phone: chief complaint+Reason for visit Narrative* [...] mellitus Vitamin D deficiency Gastroesophageal reflux disease [facility] Work Phone: Evaluation noteNo InformationNort [employer] Other Evaluation noteNo assessment information available [facility] Work Phone: Evaluation note* Diagnosis Onset Date Resolution Status Type [address] [facility] Work Phone: Evaluation note* Diagnosis Onset Date Resolution Status Type 2 diabetes mellitus acu te Right wrist fracture acute Type 2 diabetes mellitus acu te [facility] Work Phone: Evaluation note* Diagnosis Onset Date Resolution Status Type 2 diabetes mellitus acu te Right wrist fracture acute Type 2 diabetes mellitus acu te BMI 37.0-37.9, adult acute Dietary counseling and surveillance acute History of myocardial infarction acute HTN (hypertension) acute Hyperlipidemia acute Long-term insulin use acute Type 2 diabetes mellitus acu te Vitamin D deficiency acute Gastroesophageal reflux disease acute [facility] Work Phone: Evaluation note* Diagnosis Onset Date [...] acute Type 2 diabetes mellitus acu te [facility] Work Phone: History general Narrative - Reported* Type Description Date Medical History Herpes labialis Medical History Candidiasis of mouth Medical History Type 2 diabetes holli itus with diabetic polyneuropathy, unspecified whether director long term care insulin use Medical History Controlled type 2 di abetes mellitus with hyperglycemia, unspecified whether mcc insulin use Medical History Obesity Medical History Dyslipidemia Medical History CAD in sitka artery Medical History Asthma, intermittent Medical History [...] History appendectomy Surgical History 7 stents 1999 [facility] Other Hishlty general Narrative - Reported* Type Description Date Medical History Herpes labialis Medical History Candidiasis of mouth Medical History Type 2 diabetes holli itus with diabetic polyneuropathy, unspecified whether mcc insulin use Medical History Controlled type 2 di abetes mellitus with hyperglycemia, unspecified whether director long term care insulin use Medical History Obesity Medical History Dyslipidemia Medical History CAD in [place] artery Medical History Asthma, intermittent Medical History [...] stents 1999 Hospitalization History see surgical history [facility] Other History general Narrative - Reported* Type Description Date Medical History Herpes labialis Medical History Candidiasis of mouth Medical History Type 2 diabetes holli itus with diabetic polyneuropathy, unspecified whether director long term care insulin use Medical History Controlled type 2 di abetes mellitus with hyperglycemia, unspecified whether mcc insulin use Medical History Obesity Medical History Dyslipidemia Medical History CAD in [place] artery Medical History Asthma, intermittent Medical History [...] coronary 1999 Hospitalization History see surgical history [facility] Other Summary Purpose Family History Relationship Condition [...] itus with hyperglycemia (E11.65) Referral Organization [facility] Referring Provider First Name Shayy Referring Provider Last Name Jose De Jesus Referring Provider Specialty Family [facility] Referred Organization [facility] Referred Provider Marcia Mendes Referred Address [address],[place], [place],[address] Referred Provider Specialty Nurse Pracenmanuel saldaña Referral [...] and content) DATE CREATED AUTHOR 10/25/2017 [facility] DATE CREATED AUTHOR AUTHOR'S ORGANIZ ATION 09/03/2022 [facility] DATE CREATED AUTHOR AUTHOR'S ORGANIZ ATION 12/13/2022 [facility] DATE CREATED AUTHOR AUTHOR'S ORGANIZ ATION 07/01/2023 [facility] REASON FOR VISIT (unrecogniz ed section and content) labsmessage3 MONTH FOLLOW UP ACrefillmessagemessageRefill3 month Follow upDM [id number] ReferralrefillsNo InformationRefillReferral Dr. Negro Gallegos sensor running [...] BE BASED ON THE PRIMARY CLINICAL RECORDS. [employer] provides no warranty or guarantee of the accuracy or completeness of information in this document.
--- NOTE | 2023-09-04 15:28 | XR_ITS ---
[facility] [place] [id number] Patient Name: COLETTE DINH MRN: [id number] date: 1970 Sex: F Assigned Patient Location: ER Current Patient Location: ER Accession/Order Number: [id number] Exam Date: 09/04/2023 15:37 Report Date: 09/04/2023 16:01 At the request of: WAYNE CALZADA Procedure: XR ankle RT min 3V EXAM: XR ankle RT min 3V TECHNIQUE: AP, lateral and oblique views right ankle HISTORY: pain medial ankle COMPARISON: None. FINDINGS: There is linear lucency of the lateral malleolus on the AP view suspicious for a nondisplaced fracture.Soft tissue swelling anteriorly.Small plantar calculus spur. Ankle mortise is aligned. XR/XR ankle RT min 3V IMPRESSION: Nondisplaced fracture of the lateral malleolus. There is slight periosteal reaction of the lateral malleolus which may suggest this is a stress fracture. Electronically authenticated by: EZE SHEPPARD Date: 09/04/2023 16:01
[2023-09-04] MEDS: ACETAMINOPHEN 500 MG TABLET 1000 MG PO (15:48)
[2023-09-04] MEDS: IBUPROFEN 600 MG TABLET PO (15:48)
== END 2023-09-04 16:56 | disposition home or self-care (01) ==
PROVIDERS: Emergency Provider Emergency Medicine; PCP Family Medicine
DX: M76.821 Posterior tibial tendinitis, right leg (principal); M25.571 Pain in right ankle and joints of right foot; E11.9 Type 2 diabetes mellitus without complications; Z79.4 Long term (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 of insulin; Z79.899 Other long term (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 therapy; Z79.82 Long term (current) use of aspirin; Z79.84 Long term (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 of oral hypoglycemic drugs
CPT/HCPCS: 73610; 99283

== ENCOUNTER 2023-10-04 09:35 | Outpatient (RCR) | payer MEDICARE, MEDICAID, SELFPAY | END 2023-11-17 13:59 | disposition home or self-care (01) | LOC: PT 09:35 | PROVIDERS: PCP Family Medicine; Visit Provider Podiatrist Foot & Ankle Surgery | DX: S86.011D Strain of right Achilles tendon, subsequent encounter (principal) | CPT/HCPCS: 97035; 97110; 97140; 97161 ==

== ENCOUNTER 2023-11-28 10:33 | Outpatient (RCR) | payer MEDICARE, MEDICAID, SELFPAY | END 2023-12-28 16:24 | disposition home or self-care (01) | LOC: PT 10:33 | PROVIDERS: PCP Family Medicine; Visit Provider Physician Assistant | DX: S86.011D Strain of right Achilles tendon, subsequent encounter (principal) | CPT/HCPCS: 20560; 97110; 97140; 97161 ==

== ENCOUNTER 2023-12-23 09:54 | Outpatient (OUT) | payer MEDICARE, MEDICAID, SELFPAY ==
--- NOTE | 2023-12-23 10:05 | MM_ITS ---
Patient Name: COLETTE DINH MR#: [id number] : 1970 Exam Date: 12/23/2023 Ordering Doctor: DR Shayy Ly M.D. RADIOLOGY REPORT PROCEDURE: MM TOMOSYNTHESIS SCREENING BI COMPARISON: MG MAMM SCREEN 3D ROB CAD, 07/20/2022. INDICATIONS: Screening Calculator Name NCI Breast Cancer Risk Assessment Tool 5 Year Breast Cancer Risk 1.20% Lifetime Breast Cancer Risk 10.60% Personal Breast Cancer No Personal Ovarian Cancer No Treatments None Family Cancers Sister with ovarian cancer at age 50. LOCATION: [facility] BREAST COMPOSITION: The breasts are almost entirely fatty. FINDINGS: DIAGNOSTIC CATEGORY 1--NEGATIVE. NO CHANGE FROM COMPARISON ASSESSMENT. Scattered benign-appearing calcifications are present. Scattered benign-appearing lymph nodes are present. RIGHT BREAST: No significant suspicious finding. LEFT BREAST: No significant suspicious finding. RECOMMENDATIONS: ROUTINE MAMMOGRAM AND CLINICAL EVALUATION IN 12 MONTHS. PLEASE NOTE: A NORMAL MAMMOGRAM DOES NOT EXCLUDE THE POSSIBILITY OF BREAST CANCER. A CLINICALLY SUSPICIOUS PALPABLE LUMP SHOULD BE BIOPSIED. Dictated by: Bigg Gutiérrez MD on 12/23/2023 at 11:17 Approved by: Bigg Gutiérrez MD on 12/23/2023 at 11:18
== END 2023-12-23 09:55 | disposition home or self-care (01) ==
LOC: RAD 09:54
PROVIDERS: PCP Family Medicine; Visit Provider Family Medicine
DX: Z12.31 Encounter for screening mammogram for malignant neoplasm of breast (principal); Z80.41 Family history of malignant neoplasm of ovary
CPT/HCPCS: 77063; 77067

== ENCOUNTER 2024-02-27 10:26 | Emergency (ER) | payer MEDICARE, MEDICAID, SELFPAY ==
[2024-02-27 10:30] VITALS: BP 154/91; PULSE 83; TEMP 36.9; O2SAT 97; BMI 38.0
--- NOTE | 2024-02-27 10:42 | XR_ITS ---
The [address] [address] Patient Name: COLETTE DINH MRN: [id number] date: 1970 Sex: F Assigned Patient Location: ER Current Patient Location: ED.MAIN Accession/Order Number: [id number] Exam Date: 02/27/2024 10:55 Report Date: 02/27/2024 11:25 At the request of: SANDRINE CORRALES Procedure: XR ankle RT min 3V PROCEDURE: XR foot RT min 3V, XR ankle RT min 3V, XR tibia fibula RT 2V COMPARISON: None. HISTORY: pain FINDINGS: BONES:No definite fracture or dislocation of the tib-fib, ankle or foot. Lucency in the distal fibula on ankle image 2 likely represents mock band from rotation of the ankle. Moderate plantar enthesopathic spurring of the calcaneus SOFT TISSUES:Negative. No visible soft tissue swelling. EFFUSION:None visible. OTHER: Vascular calcifications XR/XR ankle RT min 3V IMPRESSION: No acute fracture Electronically authenticated by: JOHN JAVED Date: 02/27/2024 11:25
--- NOTE | 2024-02-27 10:42 | XR_ITS ---
The [address] [address] Patient Name: COLETTE DINH MRN: [id number] date: 1970 Sex: F Assigned Patient Location: ER Current Patient Location: ED.MAIN Accession/Order Number: [id number] Exam Date: 02/27/2024 10:57 Report Date: 02/27/2024 11:25 At the request of: SANDRINE CORRALES Procedure: XR foot RT min 3V PROCEDURE: XR foot RT min 3V, XR ankle RT min 3V, XR tibia fibula RT 2V COMPARISON: None. HISTORY: pain FINDINGS: BONES:No definite fracture or dislocation of the tib-fib, ankle or foot. Lucency in the distal fibula on ankle image 2 likely represents mock band from rotation of the ankle. Moderate plantar enthesopathic spurring of the calcaneus SOFT TISSUES:Negative. No visible soft tissue swelling. EFFUSION:None visible. OTHER: Vascular calcifications XR/XR foot RT min 3V IMPRESSION: No acute fracture Electronically authenticated by: JOHN JAVED Date: 02/27/2024 11:25
--- NOTE | 2024-02-27 10:42 | XR_ITS ---
The [address] [address] Patient Name: COLETTE DINH MRN: [id number] date: 1970 Sex: F Assigned Patient Location: ER Current Patient Location: ED.MAIN Accession/Order Number: [id number] Exam Date: 02/27/2024 10:55 Report Date: 02/27/2024 11:25 At the request of: SANDRINE CORRALES Procedure: XR tibia fibula RT 2V PROCEDURE: XR foot RT min 3V, XR ankle RT min 3V, XR tibia fibula RT 2V COMPARISON: None. HISTORY: pain FINDINGS: BONES:No definite fracture or dislocation of the tib-fib, ankle or foot. Lucency in the distal fibula on ankle image 2 likely represents mock band from rotation of the ankle. Moderate plantar enthesopathic spurring of the calcaneus SOFT TISSUES:Negative. No visible soft tissue swelling. EFFUSION:None visible. OTHER: Vascular calcifications XR/XR tibia fibula RT 2V IMPRESSION: No acute fracture Electronically authenticated by: JOHN JAVED Date: 02/27/2024 11:25
--- OUTSIDE RECORDS SUMMARY | 2024-02-27 11:20 | XMS_ITS | CCD ---
Author Organization [facility] CliniSytn Care Team Providers Care Range Scientist Name Role Phone PHYSICIAN, DEFAULT Unavailable Unavailable PHYSICIAN, DEFAULT Unavailable Unavailable NADCADY MATT Unavailable Unavailable PHYSICIAN, DEFAULT Unavailable Unavailable PHYSICIAN, DEFAULT Unavailable Unavailable NADCADY MATT Unavailable Unavailable Shayy Dela Cruz Unavailable [...] e MARKER ., DR FOWLER Admitting Unavailable AHOTJAVAD Consulting Unavailable HAY ., DR CARPIO Consulting [...] Attending Unavailable MISC, DR IVERSON Admitting Unavailable JOSE DE JESUS, DR SHAYY Reyes Attending Unavailable DELA CRUZ, DR SHAYY Reyes Admitting Unavailable DELA CRUZ, DR SHAYY Reyes Primary Care Unavailable Narinder Lan Consulting Unavailable DELA CRUZ, DR SHAYY Reyes Consulting Unavailable MARQUES MOROCHO Attending Unavailable CHRISTEN BENITES Attending Unavailable MALCOLM EVANS Attending Unavailable AustinambreenLynne Unavailable Scalcinthya, Cathie Unavailable MD Shayy Dela Cruz Primary Care Provider MD Shayy Dela Cruz Attending Provider MD Shayy Dela Cruz Primary Care Provider MD Shayy Dela Cruz Attending Provider Sam, ITALIAN TUTOR Cathie C Attending Provider Scally, Cathie C Admitting Unavailable Sam, Cathie C Attending Unavailable Shayy Dela Cruz Admitting Unavailable Shayy Dela Cruz Primary Care Unavailable Shayy Dela Cruz Attending Unavailable Brittani Collier Admitting Unavailable Brittani Collier Attending Unavailable Shayy Dela Cruz Primary Care Unavailable Allergies Allergy Classification Reported Allergen(s) Allergy Type Date of Onset Reaction(s) Facility (1 source) codeine Drug Allergy [address] [facility] Repository (17 sources) Latex; Translations: [LATEX] Drug allergy (disorder) 9 sores on skin [facility] Repository (20 sources) Codeine; Translations: [CODEINE] Drug Allergy [address] [facility] Repository (18 sources) Latex Drug allergy sores on skin [facility] Other (1 source) Codeine Drug Allergy [facility] Repository (1 source) atorvastatin; Translations: [ATORVASTATIN] Drug Allergy 3 [facility] Repository (6 sources) cat dander Allergy to substance 4 Sneezing, Itching [facility] (6 sources) dog dander Allergy to substance 4 Sneezing, Itching [facility] (6 sources) ozempic Propensity to adverse reactions 4 Vomiting [facility] (1 source) Codeine Drug Allergy 4 [facility] Repository (1 source) Latex Drug allergy (disorder) 4 [facility] Repository Medications Current Medications Medication Drug Class(es) Dates Sig (Normalized) Sig (Original) [id number] 200 actuat albuterol 0.09 mg/actuat metered dose inhaler (20 sources) beta2-Adrenergic Agonist Start: 01-23-2024 take 2 puff(s) by inhalation every four hours as needed Albuterol Sulfate Active 0 .ROUTE .COMPLEX 8.5 January 23, 2024 1:13pm INHALE 2 PUFFS EVERY 4 HOURS NEEDED FOR WHEEZE OR FOR SHORTNESS OF BREATH Start: 07-28-2023 End: 01-23-2024 take 1 puff(s) by inhalation every four hours Albuterol Sulfate Discontinued 2 PUFF INHALATION Every 4 hours 8.5 November 29, 2023 4:24pm January 23, 2024 1:13pm take 2 puff(s) by in halation every [...] aspirin 81 mg delayed release oral tablet (20 sources) Platelet Aggregation Inhibitor, Nonsteroidal Anti-inflammatory Drug Start: Aspirin (Adult Low Dose Aspirin) 81 mg tablet,delayed release (DR/EC) Active 81 MG PO Daily December 05, 2023 12:00am Start: 07-06-2023 End: 09-29-2023 Aspirin (Adult Low Dose Aspi rin) 81 mg tablet,delayed release (DR/EC) Discontinued 81 MG PO Daily July 06, 2023 1:00am September 29, 2023 1:34pm take 1 tablet by bin th every twenty-four hours Aspirin Adult Low Dose 81 MG 1 tablet Orally Once a day Active atorvastatin 40 mg oral tablet (20 sources) HMG-CoA Reductase Inhibitor Start: 07-06-2023 End: 07-19-2023 take 40 mg by mouth once daily Atorvastatin Active 40 MG PO Daily July 19, 2023 12:00am Start: 05-12-2023 take 1 tablet by bin th every twenty-four hours Atorvastatin Calcium 40 MG 1 tablet Orally Once a day for 90 days May, Active Blood-Glucose Meter,Continuo us (Dexcom G7 Neon Glass Bender) misc (4 sources) Start: 12-13-2023 Blood-Glucose Meter,Continuous (Dexcom G7 Neon Glass Bender) misc Active 0 .Route December 13, 2023 12:00am As directed Start: 12-13-2023 Blood-Glucose Meter,Continuous (Dexcom G7 Neon Glass Bender) misc Active 0 .ROUTE December 13, 2023 12:00am As directed Blood-Glucose Sensor (Dexcom G7 Sensor) device (4 sources) Start: 12-13-2023 Blood-Glucose Sensor (Dexcom G7 Sensor) device Active 0 .Route December 13, 2023 12:00am As directed Start: 12-13-2023 Blood-Glucose Sensor (Dexcom G7 Sensor) device Active 0 .ROUTE December 13, 2023 12:00am As directed carvedilol 6.25 mg oral tablet (20 sources) alpha-Adrenergic Petty, beta-Adrenergic Petty Start: 10-10-2023 take 1 tablet by mouth twice daily at mealtime Carvedilol Active 6.25 MG PO Twice daily October 10, 2023 3:55pm FreeTextSi tablet with food Orally once a day; Note: Source Status: Taking; Refills: 3; Qty: 90 Tablet; Provider: Jose De Jesus Reyes Start: 07-06-2023 End: 10-10-2023 take 1 tablet by mouth once daily at mealtime Carvedilol Discontinued 6.25 MG PO Daily July 06, 2023 1:00am October 10, 2023 3:58pm FreeTextSi tablet with food Orally once a [...] Orally Once a day Active Dexcom G7 Neon Glass Bender - (4 sources) Start: 06-03-19 24 Dexcom G7 Neon Glass Bender - as directed as directed 4 x daily for 365 days E 11.65, Z 79.4 Jun, Active Dexcom G7 Sensor - (4 sources) Start: 06-03-19 24 Dexcom G7 Sensor - as directed in vitro every 10 days for 90 days E 11.65, Z79.4 02 Jun, 2023 Active Esomeprazole (20 sources) Proton Pump Inhibitor Start: 02-06-20 take 1 capsule by mouth once daily Esomeprazole Magnesium Active 0 .ROUTE .COMPLEX 90 February 06, 2024 9:00am TAKE ONE CAPSULE BY MOUTH DAILY Start: 07-06-2023 End: 02-06-2024 take 1 capsule by mouth once daily Esomeprazole Magnesium Discontinued 40 MG PO Daily July 06, 2023 1:00am February 06, 2024 9:00am FreeTextSig: TAKE ONE CAPSULE BY MOUTH DAILY 90; Note: Source Status: Taking; Refills: 1; Qty: 90 Each; Provider: Jose De Jesus Reyes take 1 capsule by [facility] once daily Esomeprazole Magnesium 40 mg TAKE ONE CAPSULE BY MOUTH DAILY 90 for 90 Active fluticasone (20 sources) Corticosteroid Start: 02-07-2024 take 1 puff(s) by inhalation twice daily Fluticasone Propionate Active 2 PUFF INHALATION Twice daily February 07, 2024 8:24am Start: 02-01-2024 Fluticasone Pr opionate Active 2 SPRAY INTRANASAL Daily February 01, 2024 4:49pm Start: 11-29-2023 End: 02-07-2024 take 1 puff(s) by inhalation twice daily Fluticasone Propionate Discontinued 2 PUFF INHALATION Twice daily November 29, 2023 4:24pm February 07, 2024 8:24am Start: 11-29-2023 take 1 puff(s) by in halation twice daily Fluticasone Propionate Active 2 PUFF INHALATION Twice daily November 29, 2023 4:24pm Start: 07-28-2023 End: 11-29-2023 take 1 puff(s) by inhalation twice daily Fluticasone Propionate Discontinued 2 PUFF INHALATION Twice daily July 28, 2023 12:40pm November 29, 2023 4:24pm Start: 07-28-2023 take 1 puff(s) by in halation twice daily Fluticasone Propionate Active 2 PUFF INHALATION Twice daily July 28, 2023 12:40pm Start: 07-06-2023 End: 02-01-2024 take 2 spray(s) nasal route once daily Fluticasone Propionate Discontinued 2 SPRAY INTRANASAL Daily July 06, 2023 1:00am February 01, 2024 4:49pm FreeTextSi spray in each nostril Nasally Once [...] Once a day Active FreeStyle Amrik 3 Hematite - (3 sources) Start: 06-06-2023 FreeStyle Libr e 3 Hematite - as directed invitro 4 times daily [...] Insulin) 300 unit/mL (1.5 mL) insulin pen (20 sources) Start: 02-23-2024 Insulin Glargi ne U-300 Conc (Toujeo Solostar U-300 Insulin) 300 unit/mL (1.5 mL) insulin pen Active 84 UNIT SUBCUT Daily February 23, 2024 1:21pm Start: 12-13-2023 End: 02-23-2024 Insulin Glargine U-300 Conc (Toujeo Solostar U-300 Insulin) 300 unit/mL (1.5 mL) insulin pen Discontinued 80 UNIT SUBCUT Daily December 13, 2023 1:08pm February 23, 2024 1:22pm Start: 12-13-2023 Insulin Glargi ne U-300 Conc (Toujeo Solostar U-300 Insulin) 300 unit/mL (1.5 mL) insulin pen Active 80 UNIT SUBCUT Daily December 13, 2023 1:08pm Start: 08-24-2023 End: 12-13-2023 Insulin Glargine U-300 Conc (Toujeo Solostar U-300 Insulin) 300 unit/mL (1.5 mL) insulin pen Discontinued 76 UNIT SUBCUT Daily August 24, 2023 2:13pm December 13, 2023 1:15pm Start: 08-24-2023 Insulin Glargi ne U-300 Conc [...] Start: 07-06-2023 Insulin Glargi ne U-300 Conc (Toulast Solostar U-300 Insulin) 300 unit/mL (1.5 mL) insulin pen Active UNIT SUBCUT July 06, 2023 1:00am FreeTextSi u Subcutaneous daily; Note: Source Status: Continue; Provider: Jose De Jesus Reyes isopropyl alcohol 0.7 ml/ml medicated pad (20 sources) Start: 12-23-2023 End: 12-23-2023 Alcohol Swabs Active 1 PAD TOPICAL Three times daily 300 30 December 23, 2023 11:17am Use to cleanse skin before checking blood sugar Start: 07-06-2023 End: 12-23-2023 Alcohol Swabs Discontinued P AD TOPICAL July 06, 2023 1:00am December 23, 2023 11:13am FreeTextSig: as directed 4 times a day; Note: Source Status: Taking; Refills: 3; Provider: Jose De Jesus Reyes Alcohol Swabs - as directed 4 times a day for 30 days Active Alcohol Swabs - as directed Active losartan potassium 25 mg oral tablet (20 sources) Angiotensin 2 Receptor Petty Start: 07-28-2023 End: 10-11-2023 take 25 mg by mouth once daily Losartan Active 25 MG PO Daily October 11, 2023 8:39am Start: 07-06-2023 End: 07-19-2023 take 1 tablet [...] (20 sources) Leukotriene Receptor Antagonist Start: 07-06-19 End: 09-29-19 take 1 tablet by mouth once daily Montelukast (Singulair) 10 mg tablet Active 10 MG PO Daily September 29, 2023 1:39pm take 1 tablet by bin th every [...] Active simethicone 125 mg oral caps ule (18 sources) Start: 09-29-2023 Simethicone (G as-X Extra Strength) 125 mg capsule Active 250 MG PO Daily at bedtime September 29, 2023 1:39pm Start: 07-28-2023 End: 09-29-2023 Simethicone (Gas-X Extra Str ength) 125 mg capsule Discontinued 125 MG PO 1 to 2 times per day July 28, 2023 12:00am September 29, 2023 1:40pm Completed/Discontinued Medications Medication Drug Class(es) Dates Sig (Normalized) Sig (Original) azithromycin 250 mg oral tablet (18 sources) Macrolide Antimicrobial Start: 06-22-2022 Azithromycin 250 MG as directed Orally 2 tabs po today, then 1 tab daily x 4 more days for 5 Jun, Not-Taking/PRN Blood-Glucose Meter,Continuous (Freestyle Amrik 3 Hematite) misc (11 sources) Start: 07-28-2023 End: 12-13-2023 Blood-Glucose Meter,Continuous (Freestyle Amrik 3 Hematite) misc Discontinued EACH .ROUTE .MEDSUPPLY July 28, 2023 12:00am December 13, 2023 1:09pm As directed Start: 07-28-2023 Blood-Glucose Meter,Continuous (Freestyle Amrik 3 Hematite) misc Active EACH .ROUTE .MEDSUPPLY July 28, 2023 12:00am As directed Blood-Glucose Sensor (Freest yle Amrik 3 Sensor) device (11 sources) Start: 07-28-2023 End: 12-13-2023 Blood-Glucose Sensor (Freest yle Amrik 3 Sensor) device Discontinued EACH .ROUTE .MEDSUPPLY July 28, 2023 12:00am December 13, 2023 1:09pm As directed Start: 07-28-2023 Blood-Glucose Sensor (Freestyle Amrik 3 Sensor) device Active EACH .ROUTE .MEDSUPPLY July 28, 2023 12:00am As directed famotidine 20 mg oral tablet (20 sources) Histamine-2 Receptor Antagonist Start: 08-22-2023 End: 09-29-2023 take 20 mg by mouth once daily at bedtime Famotidine Discontinued 20 MG PO Daily at bedtime September 19, 2023 3:02pm September 29, 2023 1:40pm Insulin Aspart U-100 (Novolog Flexpen U-100 Insulin) 100 unit/mL (3 mL) insulin pen (12 sources) Start: 07-12-2023 End: 07-19-2023 inject 1 [...] pen injector (20 sources) Insulin Analog Start: 09-19-2023 End: 02-23-2024 Insulin Lispro (Humalog Kwikpen Insulin) 200 unit/mL (3 mL) insulin pen Discontinued 0 SUBCUT Use as Directed 90 90 December 23, 2023 2:06pm February 23, 2024 1:22pm 1:5 ICR ac TID plus 1:10 Corrective scale ac(hs if >200 half dose) SQ, 90-day (expect up to 190 units/day) Start: 07-08-2023 End: 07-19-2023 Insulin Lispro (Humalog Kwik pen Insulin) 200 unit/mL (3 mL) insulin pen Discontinued 1 sliding scale dose SUBCUT Use as Directed 90 90 July 08, 2023 1:00am July 19, 2023 11:11am icr 1:5, iss 1:10, EXPECT UP TO 100 U PER DAY, HAS WRITTEN INSTRUCTIONS HumaLOG KwikPen 100 UNIT/ML ISS 1:10 and ICF 1:5 Subcutaneous 4 x daily for 90 days Expect up to 120 u per day Active Insulin Lispro (Humalog Kwikpen Insulin) 100 unit/mL insulin pen (20 sources) Start: 07-28-2023 End: 09-19-2023 inject 1 dose by subcutaneous injection once before mealtime Insulin Lispro (Humalog Kwikpen Insulin) 100 unit/mL insulin pen Discontinued 1 sliding scale dose SUBCUT 3x/Day before meals & bedtime July 28, 2023 12:39pm September 19, 2023 10:58am Start: 07-28-2023 inject 1 dose by sub cutaneous injection once before mealtime Insulin Lispro (Humalog [...] 120 u per day; Provider: Sam Calvillo meloxicam 15 mg oral tablet (7 sources) Nonsteroidal Anti-inflammatory Drug Start: 09-29-2023 End: 12-05-2023 take 15 mg by mouth once daily Meloxicam Discontinued 15 MG PO Daily September 29, 2023 12:00am December 05, 2023 11:28am Semaglutide (10 sources) Start: 07-28-2023 End: 08-19-2023 Semaglutide (Ozempic) 0.25 mg or 0.5 mg (2 mg/3 mL) pen injector Discontinued 0.25 MG SUBCUT every week 1.84 July 28, 2023 12:00am August 19, 2023 [...] toe(s), unspecified, right foot] Episodic Administrative/social admission (20 sources) Dietary counseling and surveillance; Translations: [Patient encounter status] Episodic Asthma (19 sources) Intermittent asthma; Translations: [Mild intermittent asthma, uncomplicated] Onset: 11-09-2021 Chronic Coronary atherosclerosis and other heart disease (20 sources) Atherosclerosis of coronary artery without angina pectoris; Translations: [Atherosclerotic heart disease of [place] coronary artery without angina pectoris] Onset: 03-24-2022 Chronic Diabetes mellitus with complications (20 sources) Hyperglycemia due to type 2 diabetes mellitus; Translations: [Type 2 diabetes mellitus with hyperglycemia] Onset: 05-19-2022 Chronic Diabetes mellitus without complication (20 sources) Type 2 diabetes mellitus without complications; Translations: [Type 2 diabetes mellitus] Onset: 04-08-2022 06-14-2023 Chronic Disorders of lipid metabolism (20 sources) Dyslipidemia; Translations: [Hyperlipidemia, unspecified] Onset: 11-09-2021 Chronic Esophageal disorders (20 sources) Gastroesophageal reflux disease; Translations: [Gastro-esophageal reflux disease without esophagitis] Onset: 11-09-2021 08-19-2023 Chronic Essential hypertension (20 sources) Essential (primary) hypertension; Translations: [Hypertensive disorder] Onset: 05-19-2022 Chronic Fracture of upper limb (16 sources) Fracture at wrist and/or hand level; Translations: [Fracture of unspecified carpal bone, right wrist, initial encounter for closed fracture] 07-19-2023 Episodic Mycoses (18 sources) Candidiasis of mouth; Translations: [Candidal stomatitis] Episodic Nutritional deficiencies (20 sources) Vitamin D deficiency; Translations: [Vitamin D deficiency, unspecified] Onset: 02-23-2024 Chronic Osteoarthritis (1 source) Unspecified osteoarthritis, unspecified site; Translations: [UNSPECIFIED OSTEOARTHRITIS UNS SITE] Onset: 11-09-2021 Chronic Other aftercare (17 sources) manager terminal (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 of insulin; Translations: [Long-term (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 of insulin] Onset: 04-08-2022 Episodic Other aftercare (20 sources) Long-term current use of insulin; Translations: [detention (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 of insulin] 07-28-2023 Episodic Other [...] injuries and conditions due to external causes (11 sources) Fracture of bone; Translations: [Other injury of unspecified body region, initial encounter] 07-28-2023 Episodic Other non-traumatic joint disorders (5 sources) Shoulder pain; Translations: [Pain in left shoulder] Episodic Other non-traumatic joint disorders (13 sources) Pain in left shoulder; Translations: [Left shoulder pain] Episodic Other non-traumatic joint disorders (7 sources) Ankle pain; Translations: [Pain in right ankle and joints of right foot] 09-06-2023 Episodic Other non-traumatic joint disorders (3 sources) Pain in right ankle and joints of right foot; Translations: [Pain in joint, ankle and foot] 09-06-2023 Episodic Other nutritional; endocrine; and metabolic disorders (18 sources) Obesity; Translations: [Obesity, unspecified] Chronic Other nutritional; endocrine; and metabolic disorders (3 sources) Obese class II; Translations: [Body mass index (BMI) 37.0-37.9, adult] Chronic Other nutritional; endocrine; and metabolic disorders (15 sources) Body mass index (BMI) 37.0-37.9, adult; Translations: [Body Mass Index 37.0-37.9, adult] Chronic Other nutritional; endocrine; and metabolic disorders (11 sources) Body mass index 30+ - obesity; Translations: [Body mass index (BMI) 37.0-37.9, adult] 07-28-2023 Chronic Other screening for suspected conditions (not mental disorders or infectious disease) (15 sources) Encounter for screening mammogram for malignant neoplasm of breast; Translations: [Patient encounter status] Onset: 07-20-2022 Episodic Other upper respiratory infections (1 source) Acute maxillary sinusitis, unspecified Episodic Spondylosis; intervertebral disc disorders; other back problems (18 sources) Pain in thoracic spine; Translations: [Pain in thoracic spine] Episodic Viral infection (18 sources) Herpes labialis; Translations: [...] Onset: 04-08-2022 Episodic Other aftercare (1 source) detention (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; Translations: [SENIOR CARE CURRENT USE OF ASPIRIN] Onset: 04-08-2022 Episodic Other aftercare (1 source) detention (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 of oral hypoglycemic drugs; Translations: [CLINICAL RESEARCH ADMINISTRATOR USE ORAL HYPOGLYCEMIC DX] Onset: 04-08-2022 Episodic Other aftercare (1 source) Other manager terminal (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 therapy; Translations: [OTH SENIOR CARE CURRENT DRUG THERAPY] Onset: 11-09-2021 Episodic Other [...] Test Name Value Interpretation Reference Range Facility Creatinine [Mass/volume] in UrineOrdered By: Cathie Vargas on 02-23-2024 Creatinine (U) [Mass/Vol] 28.00 mg/dL [facility] Comment on above: No reference range e stablished MicroAlb Creat Ratio,Uon Creatinine, Urine (Random) 28.00 mg/dL Normal [facility] Comment on above: Result Comment: No r eference range established Performed By: #### U RMACRERAT #### [address] Microalbumin/Creati nine Ratio Not performed Normal 0.0-30.0 [facility] Comment on above: Result Comment: PERF ORMED BY: [place] [id number] PATHOLOGIST CORRECTIVE THERAPIST RUBINA RICCI M.D. Performed By: #### U RMACRERAT #### [address] Microalbumin [Mass/volume] i n UrineOrdered By: Cathie Vargas on 02-23-2024 Albumin DL <= 20 mg/L (U) [Mass/Vol] mg/dL Normal 0.0-1.8 [facility] Comment on above: Performed By: #### U RMACRERAT #### [facility] [address] [place] [address] Urine microalbumin/creatinin e mass ratioOrdered By: Cathie Vargas on 02-23-2024 Albumin/Creatinine DL <= 20 mg/L (U) [Mass ratio] TNP [facility] Comment on above: Test not performed HbA1c HPLC (Bld) [Mass fract ion]on 12-13-2023 HbA1c (Bld) [Mass fraction] 9.9 % [facility] No Panel Informationon 12-12 Bedside Glucose 118 [facility] No Panel Informationon 09-28 Bedside Glucose 278 [facility] HbA1c HPLC (Bld) [Mass fract ion]on 07-28-2023 HbA1c (Bld) [Mass fraction] 10.3 % [facility] No Panel Informationon 07-27 Bedside Glucose 126 [facility] Basophils Auto (Bld) [#/Vol] on 07-12-2023 Basophils (Bld) [#/Vol] 0.0 10 3/uL 0.0-0.1 [facility] Basophils/100 WBC Auto (Bld) on 07-12-2023 Basophils/100 WBC (Bld) 0.5 % 0.2-2.0 [facility] Eosinophils/100 WBC Auto (Bl d)on 07-12-2023 Eosinophils/100 WBC (Bld) 1.5 % 0.9-7.0 [facility] Erythrocyte distribution wid th Auto (RBC) [Ratio]on 07-12-2023 Erythrocyte distribution width (RBC) [Ratio] 12.7 % 11.0-15.0 [facility] Estimated glomerular filtrat ion rate (GFR) non- Americanon 07-12-2023 GFR/1.73 sq M.predicted among non-blacks MDRD (S/P/Bld) [Vol rate/Area] mL/min/{1.73_m2} >=60 [facility] Hematocrit Auto (Bld) [Volum e fraction]on 07-12-2023 Hematocrit (Bld) [Volume fraction] 42.8 % 36.0-48.0 [facility] Hemoglobin [Mass/volume] in Bloodon 07-12-2023 Hemoglobin (Bld) [Mass/Vol] 14.3 g/dL 12.0-16.0 [facility] Laboratory - Chemistry and C hemistry - challengeon 07-12-2023 Calcium [Mass/Vol] 9.1 mg/dL 8.5-10.1 [facility] Chloride [Moles/Vol] 100 mmol/L 98-107 [facility] CO2 [Moles/Vol] 26.1 mmol/L 21.0-32.0 [facility] Creatinine [Mass/Vol] 0.78 mg/dL 0.55-1.02 [facility] GFR/1.73 sq M.predicted MDRD (S/P/Bld) [Vol rate/Area] mL/min/{1.73_m2} >=60 [facility] Glucose [Mass/Vol] 215 mg/dL 74-106 [facility] Potassium [Moles/Vol] 4.0 mmol/L 3.5-5.1 [facility] Sodium [Moles/Vol] 137 mmol/L 136-145 [facility] Urea nitrogen [Mass/Vol] 12.0 mg/dL 7.0-18.0 [facility] Urea nitrogen/Creatinine [Mass ratio] 15.4 mg/mg [facility] Laboratory - Hematology and Cell countson 07-12-2023 Immature granulocytes/100 WBC (Bld) 0.1 % 0.0-0.5 [facility] Leukocytes [#/volume] correc alma delia for nucleated erythrocytes in Blood by Automated counon 07-12-2023 WBC corrected for nucl RBC Auto (Bld) [#/Vol] 7.8 10 3/uL 4.0-11.0 [facility] Lymphocytes Auto (Bld) [#/Vo l]on 07-12-2023 Lymphocytes (Bld) [#/Vol] 2.7 10 3/uL 1.2-3.8 [facility] Lymphocytes/100 WBC Auto (Bl d)on 07-12-2023 Lymphocytes/100 WBC (Bld) 34.1 % 20.5-60.0 [facility] MCH Auto (RBC) [Entitic mass ]on 07-12-2023 MCH (RBC) [Entitic mass] 29.2 pg 26.7-34.0 [facility] MCHC Auto (RBC) [Mass/Vol]on 07-12-2023 MCHC (RBC) [Mass/Vol] 33.4 g/dL 29.9-35.2 [facility] MCV Auto (RBC) [Entitic vol] on 07-12-2023 MCV (RBC) [Entitic vol] 87.5 fL 81.0-99.0 [facility] Monocytes Auto (Bld) [#/Vol] on 07-12-2023 Monocytes (Bld) [#/Vol] 0.5 10 3/uL 0.3-0.8 [facility] Monocytes/100 WBC Auto (Bld) on 07-12-2023 Monocytes/100 WBC (Bld) 6.4 % 1.7-12.0 [facility] Neutrophils Auto (Bld) [#/Vo l]on 07-12-2023 Neutrophils (Bld) [#/Vol] 4.5 10 3/uL 1.4-6.5 [facility] Neutrophils/100 WBC Auto (Bl d)on 07-12-2023 Neutrophils/100 WBC (Bld) 57.4 % 43.0-75.0 [facility] No Panel Informationon 07-11 Eosinophils # (Auto) 0.1 10 3/uL 0.0-0.7 [facility] Immature Granulocyte # (Auto) 0.01 10 3/uL 0.00-0.03 [facility] Platelet mean volume Auto (B ld) [Entitic vol]on 07-12-2023 Platelet mean volume (Bld) [Entitic vol] 10.9 fL 9.5-13.5 [facility] Platelets Auto (Bld) [#/Vol] on 07-12-2023 Platelets (Bld) [#/Vol] 259 10 3/uL 150-450 [facility] RBC Auto (Bld) [#/Vol]on RBC (Bld) [#/Vol] 4.89 10 6/uL 4.20-5.40 [facility] Serum or plasma anion gap de terminationon 07-12-2023 Anion gap [Moles/Vol] 14.9 mmol/L [facility] Glucose - FINGER STICKon Glucose [Mass/Vol] 360 mg/dL [facility] Other Office Visiton 12-13-2022 Follow-up visit [id number] Arlette Ramos 1970 F Date Provider Department Center 12/13/2022 [id number]-[facility]QU[facility] No family history on file Level of Service:73852 [place] OFFICE/OUTPATIENT ESTABLISHED LOW MDM 20-29 MIN Reason for Visit and Comments: Follow-up [125254] - [address] [facility] CBC AUTO DIFFon 08-27-2022 BASO # 0.0 103/ul Normal 0.0-0.1 [facility] Comment on above: Performed By: #### C BC #### [facility] [address] [place] [address] Dr. Sarah Church Basophils/100 WBC (Bld) 0.5 % Normal 0.2-2.0 [facility] Comment on above: Performed By: #### C BC #### [facility] [address] [place] [address] Dr. Sarah Church EO # 0.2 103/ul Normal 0.0-0.7 [facility] Comment on above: Performed By: #### C BC #### [facility] [facility] [address] [place] [address] Dr. Sarah Church Eosinophils/100 WBC (Bld) 2.2 % Normal 0.9-7.0 [facility] Comment on above: Performed By: #### C BC #### [facility] [address] [place] [address] Dr. Sarah Church Erythrocyte distribution width (RBC) [Ratio] 12.5 % Normal 11.0-15.0 [facility] Comment on above: Performed By: #### C BC #### [facility] [address] [place] [address] Dr. Sarah Church Hematocrit (Bld) [Volume fraction] 44.1 % Normal 36.0-48.0 [facility] Comment on above: Performed By: #### C BC #### [facility] [address] [place] [address] Dr. Sarah Church Hemoglobin (Bld) [Mass/Vol] 15.1 g/dL Normal 12.0-16.0 [facility] Comment on above: Performed By: #### C BC #### [facility] [address] [place] [address] Dr. Sarah Church IG # 0.02 10e3/ul Normal 0.00-0.03 [facility] Comment on above: Performed By: #### C BC #### [facility] [address] [place] [address] Dr. Sarah Church IG % 0.2 % Normal 0.0-0.5 [facility] Comment on above: Performed By: #### C BC #### [facility] [address] [place] [address] Dr. Sarah Church LYMPH # 2.9 103/ul Normal 1.2-3.8 [facility] Comment on above: Performed By: #### C BC #### [facility] [address] [place] [address] Dr. Sarah Church Lymphocytes/100 WBC (Bld) 33.4 % Normal 20.5-60.0 [facility] Comment on above: Performed By: #### C BC #### [facility] [address] [place] [address] Dr. Sarah Church MANUAL DIFF REQ NO Normal [facility] Comment on above: Performed By: #### C BC #### [facility] [address] [place] [address] Dr. Sarah Church MCH (RBC) [Entitic mass] 29.1 pg Normal 26.7-34.0 [facility] Comment on above: Performed By: #### C BC #### [facility] [address] [place] [address] Dr. Sarah Church MCHC (RBC) [Mass/Vol] 34.2 g/dL Normal 29.9-35.2 [facility] Comment on above: Performed By: #### C BC #### [facility] [address] [place] [address] Dr. Sarah Church MCV (RBC) [Entitic vol] 85.0 fL Normal 81.0-99.0 [facility] Comment on above: Performed By: #### C BC #### [facility] [address] [place] [address] Dr. Sarah Church MONO # 0.6 103/ul Normal 0.3-0.8 [facility] Comment on above: Performed By: #### C BC #### [facility] [address] [place] [address] Dr. Sarah Church Monocytes/100 WBC (Bld) 6.8 % Normal 1.7-12.0 [facility] Comment on above: Performed By: #### C BC #### [facility] [address] [place] [address] Dr. Sarah Church NEUT # 4.9 103/ul Normal 1.4-6.5 [facility] Comment on above: Performed By: #### C BC #### [facility] [address] [place] [address] Dr. Sarah Church Neutrophils/100 WBC (Bld) 56.9 % Normal 43.0-75.0 [facility] Comment on above: Performed By: #### C BC #### [facility] [address] [place] [address] Dr. aSrah Church Platelet mean volume (Bld) [Entitic vol] 10.8 fL Normal 9.5-13.5 [facility] Comment on above: Performed By: #### C BC #### [facility] [address] [place] [address] Dr. Sarah Church PLT 276 103/ul Normal 150-450 [facility] Comment on above: Performed By: #### C BC #### [facility] [address] [place] [address] Dr. Sarah Church RBC 5.19 106/ul Normal 4.20-5.40 [facility] Comment on above: Performed By: #### C BC #### [facility] [address] [place] [address] Dr. Sarah Church WBC 8.6 103/ul Normal 4.0-11.0 [facility] Comment on above: Performed By: #### C BC #### [facility] [address] [place] [address] Dr. Sarah Church LIPID PROFILEon 08-27-2022 CHOL-HDL RATIO NORM SEE BELOW Normal [facility] Comment on above: Result Comment: 3.3 - 4.4 LOW RISK 4.4 - 7.1 AVERAGE RISK 7.1 - 11.0 MODERATE RISK >11.0 HIGH RISK Performed By: #### L IPID, CMP #### [facility] [address] [place] [address] Dr. Sarah Church Cholesterol [Mass/Vol] 110 mg/dL Normal <=200 [facility] Comment on above: Performed By: #### L IPID, CMP #### [facility] [address] [address] [address] Sarah Church Cholesterol in HDL [Mass/Vol] 33 mg/dL Critically low 40-60 [facility] Comment on above: Performed By: #### L IPID, CMP #### [facility] [address] [address] [address] Sarah Church Cholesterol in LDL [Mass/Vol] 58.0 mg/dL Normal [facility] Comment on above: Performed By: #### L IPID, CMP #### [facility] [address] [address] [address] Sarah Church Cholesterol.total/C holesterol in HDL [Mass ratio] 3.3 {ratio} Normal [facility] Comment on above: Performed By: #### L IPID, CMP #### [facility] [address] [address] [address] Sarah Church HDL NORMAL > or = 60 mg/dl - LO W CARDIOVASCULAR RISK <40 mg/dl - HIGH CARDIOVASCULAR RISK Normal [facility] Comment on above: Performed By: #### L IPID, CMP #### [facility] [address] [address] [address] Sarah Church LDL CALC NORMAL SEE BELOW Normal [facility] Comment on above: Result Comment: <100 mg/dl OPTIMAL 100 - 129 mg/dl NEAR OR ABOVE OPTIMAL 130 - 159 mg/dl BORDERLINE HIGH 160 - 189 mg/dl HIGH >190 mg/dl VERY HIGH Performed By: #### L IPID, CMP #### [facility] [address] [address] [address] Sarah Church Triglyceride [Mass/Vol] 95 mg/dL Normal <=150 [facility] Comment on above: Performed By: #### L IPID, CMP #### [facility] [address] [address] [address] Sarah Church VLDL CALC 19.0 mg/dL Normal [facility] Comment on above: Performed By: #### L IPID, CMP #### [facility] [address] [address] [address] Sarah Church PROF 14(COMP METB)on 023 Albumin [Mass/Vol] 3.3 g/dL Critically low 3.4-5.0 [facility] Comment on above: Performed By: #### L IPID, CMP #### [facility] [address] [place] [address] Dr. Sarah Church Albumin/Globulin [Mass ratio] 0.8 {ratio} Normal [facility] Comment on above: Performed By: #### L IPID, CMP #### [facility] [address] [place] [address] Dr. Sarah Church ALP [Catalytic activity/Vol] 100 U/L Normal 46-116 [facility] Comment on above: Performed By: #### L IPID, CMP #### [facility] [address] [place] [address] Dr. Sarah Church ALT [Catalytic activity/Vol] 74 U/L Critically high 14-59 [facility] Comment on above: Performed By: #### L IPID, CMP #### [facility] [address] [place] [address] Dr. Sarah Church Anion gap [Moles/Vol] 13.2 mmol/L Normal [facility] Comment on above: Performed By: #### L IPID, CMP #### [facility] [address] [place] [address] Dr. Sarah Church AST [Catalytic activity/Vol] 42 U/L Critically high 15-37 [facility] Comment on above: Performed By: #### L IPID, CMP #### [facility] [address] [place] [address] Dr. Sarah Church Bilirubin [Mass/Vol] 0.4 mg/dL Normal 0.2-1.0 [facility] Comment on above: Performed By: #### L IPID, CMP #### [facility] [address] [place] [address] Dr. Sarah Church Calcium [Mass/Vol] 9.2 mg/dL Normal 8.5-10.1 [facility] Comment on above: Performed By: #### L IPID, CMP #### [facility] [address] [place] [address] Dr. Sarah Church Chloride [Moles/Vol] 99 mmol/L Normal 98-107 [facility] Comment on above: Performed By: #### L IPID, CMP #### [facility] [address] [place] [address] Dr. Sarah Church CO2 [Moles/Vol] 30.4 mmol/L Normal 21.0-32.0 [facility] Comment on above: Performed By: #### L IPID, CMP #### [facility] [address] [place] [address] Dr. Sarah Church Creatinine [Mass/Vol] 0.78 mg/dL Normal 0.55-1.02 [facility] Comment on above: Performed By: #### L IPID, CMP #### [facility] [address] [place] [address] Dr. Sarah Church EGFR-AF CITIZEN [place] >60 Normal >=60 [facility] Comment on above: Performed By: #### L IPID, CMP #### [facility] [address] [place] [address] Dr. Sarah Church EGFR-NON AF CITIZEN [place] >60 Normal >=60 [facility] Comment on above: Performed By: #### L IPID, CMP #### [facility] [address] [place] [address] Dr. Sarah Church Globulin (S) [Mass/Vol] 4.0 g/dL Normal [facility] Comment on above: Performed By: #### L IPID, CMP #### [facility] [address] [place] [address] Dr. Sarah Church Glucose [Mass/Vol] 255 mg/dL Critically high 74-[address] [facility] Comment on above: Performed By: #### L IPID, CMP #### [facility] [address] [place] [address] Dr. Sarah Church Potassium [Moles/Vol] 3.6 mmol/L Normal 3.5-5.1 [facility] Comment on above: Performed By: #### L IPID, CMP #### [facility] [address] [address] [address] Sarah Church Protein [Mass/Vol] 7.3 g/dL Normal 6.4-8.2 [facility] Comment on above: Performed By: #### L IPID, CMP #### [facility] [address] [address] [address] Sarah Church Sodium [Moles/Vol] 139 mmol/L Normal 136-145 [facility] Comment on above: Performed By: #### L IPID, CMP #### [facility] [address] [place] [address] Dr. Sarah Church Urea nitrogen [Mass/Vol] 8.0 mg/dL Normal 7.0-18.0 [facility] Comment on above: Performed By: #### L IPID, CMP #### [facility] [address] [place] [address] Dr. Sarah Church Urea nitrogen/Creatinine [Mass ratio] 10.3 mg/mg Normal [facility] Comment on above: Performed By: #### L IPID, CMP #### [facility] [address] [place] [address] Dr. Sarah Church 37on 08-10-2022 37 -Start hydrochlorothiazide 12.5 mg in the morning -Check labs 1 week after starting new medication -Take blood pressure to appointment with Dr. Dela Cruz for correlation [facility] Office Visiton 08-10-2022 Follow-up visit [id number] Arlette Ramos 1970 F Date Provider Department Center 08/10/2022 [id number] BENITES [facility] No family history on file Level of Service:28110 [place] OFFICE/OUTPATIENT ESTABLISHED MOD MDM 30-39 MIN Reason for Visit and Comments: Coronary Artery Disease [187] Hypertension [157149] Normal [facility] MG MAMM SCREEN 3D ROB CADon 07-20-2022 MG MAMM SCREEN 3D ROB CAD Patient: ZOILA RAMOS Exam Date: 07/20/2022 : 1970 Gender:F Ordering : DR SHAYY DELA CRUZ M.D. Admission #: [id number] Family : Order #: [id number] CLICK HERE TO VIEW EXAM RADIOLOGY REPORT PROCEDURE: MAMMOGRAM SCREENING 3D BILATERAL CAD COMPARISON: MAMMO ROB SCREEN W CAD DIG, 05/16/2012. INDICATIONS: Screening mammography Calculator Name NCI Breast Cancer Risk Assessment Tool 5 Year Breast Cancer Risk 1.20% Lifetime Breast Cancer Risk 10.80% Personal Breast Cancer No Personal Ovarian Cancer No Treatments None Family Cancers None LOCATION: [facility] BREAST COMPOSITION: Almost entirely fatty. FINDINGS: DIAGNOSTIC [...] Lan M.D. on 07/21/2022 at 08:24 Normal [facility] PROF CHEM 8 (BAS METB)on Anion gap [Moles/Vol] 14.5 mmol/L Normal [facility] Comment on above: Performed By: #### B MP #### [facility] [address] [address] [address] Sarah Church Calcium [Mass/Vol] 9.8 mg/dL Normal 8.5-10.1 [facility] Comment on above: Performed By: #### B MP #### [facility] [address] [address] [address] Sarah Church Chloride [Moles/Vol] 99 mmol/L Normal 98-107 [facility] Comment on above: Performed By: #### B MP #### [facility] [address] [address] [address] Sarah Church CO2 [Moles/Vol] 27.2 mmol/L Normal 21.0-32.0 [facility] Comment on above: Performed By: #### B MP #### [facility] [address] [place] [address] Dr. Sarah Church Creatinine [Mass/Vol] 0.80 mg/dL Normal 0.55-1.02 [facility] Comment on above: Performed By: #### B MP #### [facility] [address] [address] [address] Sarah Church EGFR-AF CITIZ[place] >60 Normal >=60 [facility] Comment on above: Performed By: #### B MP #### [facility] [address] [place] [address] Dr. Sarah Church EGFR-NON AF CITIZEN [place] >60 Normal >=60 [facility] Comment on above: Performed By: #### B MP #### [facility] [address] [place] [address] Dr. Sarah Church Glucose [Mass/Vol] 458 mg/dL Critically high 74-106 [facility] Comment on above: Performed By: #### B MP #### [facility] [address] [address] [address] Sarah Church Potassium [Moles/Vol] 4.7 mmol/L Normal 3.5-5.1 [facility] Comment on above: Performed By: #### B MP #### [facility] [address] [place] [address] Dr. Sarah Church Sodium [Moles/Vol] 136 mmol/L Normal 136-145 [facility] Comment on above: Performed By: #### B MP #### [facility] [address] [place] [address] Dr. Sarah Church Urea nitrogen [Mass/Vol] 15.0 mg/dL Normal 7.0-18.0 [facility] Comment on above: Performed By: #### B MP #### [facility] [address] [place] [address] Dr. Sarah Church Urea nitrogen/Creatinine [Mass ratio] 18.8 mg/mg Normal [facility] Comment on above: Performed By: #### B MP #### [facility] [address] [place] [address] Dr. Sarah Church Orders Onlyon 06-04-2022 Orders Only [id number] RichardArlette crook erasmo Sidhu 1970 Provider Department [facility] 06/04/2022 Shila-JESSICA STONE MADELYN [facility] No family history on file Normal [facility] 36on 06-01-2022 36 Patient called [...] her high cholesterol . HELP!! lol Normal [facility] Orders Onlyon 06-01-2022 Orders Only [id number] RichardArlette crook erasmo Sidhu 1970 Provider [facility] 06/01/[address] No family history on file [facility] 36on 05-28-2022 36 Spoke with flaca she states to call in script of losartan [address] [facility] GLYCOHEMOGLOBIN A1Con 2022 ADA RECOMMENDATION SEE BELOW Normal [facility] Comment on above: Result Comment: ADA RECOMMENDED LIMIT 4.0 - 6.0 ADA THERAPEUTIC TARGET < 7.0 ACTION SUGGESTED > 7.0 Performed By: #### A 1C ####[facility] [id number] [id number] Sarah Church Glucose [Mass/Vol] 266 mg/dL Normal [facility] Comment on above: Performed By: #### A 1C ####[facility] [id number] [place], [place] [address]Lj. Sarah Church HbA1c (Bld) [Mass fraction] 10.9 % Critically high 4.5-6.2 [facility] Comment on above: Performed By: #### A 1C ####[facility] [id number] [id number][address] Sarah Church Office Visiton 05-19-2022 Follow-up visit [id number] RichardArlette Sidhu 1970 F Date Provider Department Center 05/19/2022 MALCOLM SCHAFER CARD [facility] No family history on file Level of Service:61108 [place] OFFICE/OUTPATIENT ESTABLISHED MOD MDM 30-39 MIN Reason for Visit and Comments: Coronary Artery Disease [187] Hyperlipidemia [182] Normal [facility] XR HIP RT 2 3V [...] JAVAD ROB Date: 2022-04-06 21:15 Normal [facility] CBC AUTO DIFFon 11-05-2021 BASO # 0.1 103/ul Normal 0.0-0.1 [facility] Comment on above: Performed By: #### C BC #### [facility] [address] [place] [address] Dr. Sarah Church Basophils/100 WBC (Bld) 0.4 % Normal 0.2-2.0 [facility] Comment on above: Performed By: #### C BC #### [facility] [address] [place] [address] Dr. Sarah Church EO # 0.2 103/ul Normal 0.0-0.7 [facility] Comment on above: Performed By: #### C BC #### [facility] [address] [place] [address] Dr. Sarah Church Eosinophils/100 WBC (Bld) 1.3 % Normal 0.9-7.0 [facility] Comment on above: Performed By: #### C BC #### [facility] [address] [place] [address] Dr. Sarah Church Erythrocyte distribution width (RBC) [Ratio] 12.3 % Normal 11.0-15.0 [facility] Comment on above: Performed By: #### C BC #### [facility] [address] [place] [address] Dr. Sarah Church Hematocrit (Bld) [Volume fraction] 43.1 % Normal 36.0-48.0 [facility] Comment on above: Performed By: #### C BC #### [facility] [address] [place] [address] Dr. Sarah Church Hemoglobin (Bld) [Mass/Vol] 14.6 g/dL Normal 12.0-16.0 [facility] Comment on above: Performed By: #### C BC #### [facility] [address] [place] [address] Dr. Sarah Church IG # 0.04 10e3/ul Critically high 0.00-0.03 [facility] Comment on above: Performed By: #### C BC #### [facility] [address] [place] [address] Dr. Sarah Church IG % 0.3 % Normal 0.0-0.5 [facility] Comment on above: Performed By: #### C BC #### [facility] [address] [place] [address] Dr. Sarah Church LYMPH # 1.6 103/ul Normal 1.2-3.8 [facility] Comment on above: Performed By: #### C BC #### [facility] [address] [place] [address] Dr. Sarah Church Lymphocytes/100 WBC (Bld) 12.5 % Critically low 20.5-60.0 [facility] Comment on above: Performed By: #### C BC #### [facility] [address] [place] [address] Dr. Sarah Church MANUAL DIFF REQ NO Normal [facility] Comment on above: Performed By: #### C BC #### [facility] [address] [place] [address] Dr. Sarah Church MCH (RBC) [Entitic mass] 29.4 pg Normal 26.7-34.0 [facility] Comment on above: Performed By: #### C BC #### [facility] [address] [place] [address] Dr. Sarah Church MCHC (RBC) [Mass/Vol] 33.9 g/dL Normal 29.9-35.2 [facility] Comment on above: Performed By: #### C BC #### [facility] [address] [place] [address] Dr. Sarah Church MCV (RBC) [Entitic vol] 86.7 fL Normal 81.0-99.0 [facility] Comment on above: Performed By: #### C BC #### [facility] [address] [place] [address] Dr. Sarah Church MONO # 1.0 103/ul Critically high 0.3-0.8 [facility] Comment on above: Performed By: #### C BC #### [facility] [address] [place] [address] Dr. Sarah Church Monocytes/100 WBC (Bld) 7.7 % Normal 1.7-12.0 [facility] Comment on above: Performed By: #### C BC #### [facility] [address] [place] [address] Dr. Sarah Church NEUT # 9.6 103/ul Critically high 1.4-6.5 [facility] Comment on above: Performed By: #### C BC #### [facility] [address] [place] [address] Dr. Sarah Church Neutrophils/100 WBC (Bld) 77.8 % Critically high 43.0-75.0 [facility] Comment on above: Performed By: #### C BC #### [facility] [address] [place] [address] Dr. Sarah Church Platelet mean volume (Bld) [Entitic vol] 11.0 fL Normal 9.5-13.5 [facility] Comment on above: Performed By: #### C BC #### [facility] [address] [place] [address] Dr. Sarah Church PLT 220 103/ul Normal 150-450 [facility] Comment on above: Performed By: #### C BC #### [facility] [address] [place] [address] Dr. Sarah Church RBC 4.97 106/ul Normal 4.20-5.40 [facility] Comment on above: Performed By: #### C BC #### [facility] [address] [address] [address] Sarah Church WBC 12.4 103/ul Critically high 4.0-11.0 [facility] Comment on above: Performed By: #### C BC #### [facility] [address] [place] [address] Dr. Sarah Church GROUP A STREP CULTUREon S. pyogenes Ag Ql (Unsp spec) Culture Observations: NEGATIVE FOR GROUP A STREPTOCOCCUS. Normal [facility] Comment on above: Performed By: #### G RASTCX, SSCRN ####[facility] [id number] [address]Dr. Sarah Church POINT OF CARE GLUCOSEon Glucose [Mass/Vol] 214 mg/dL Critically high 74-[address] [facility] Comment on above: Performed By: #### P OCGLUC #### [facility] [address] [place] [address] Dr. Sarah Church STREPT SCREENon 11-05-2021 STREP SCREEN A Negative Normal NEGATIVE [facility] Comment on above: Performed By: #### G RASTCX, SSCRN ####[facility] [id number] [address]Dr. Sarah Church CBC AUTO DIFFon 10-16-2021 BASO # 0.1 103/ul Normal 0.0-0.1 [facility] Comment on above: Performed By: #### C BC #### [facility] [address] [place] [address] Dr. Sarah Church Basophils/100 WBC (Bld) 0.8 % Normal 0.2-2.0 [facility] Comment on above: Performed By: #### C BC #### [facility] [address] [place] [address] Dr. Sarah Church EO # 0.3 103/ul Normal 0.0-0.7 [facility] Comment on above: Performed By: #### C BC #### [facility] [address] [place] [address] Dr. Sarah Church Eosinophils/100 WBC (Bld) 3.4 % Normal 0.9-7.0 [facility] Comment on above: Performed By: #### C BC #### [facility] [address] [place] [address] Dr. Sarah Church Erythrocyte distribution width (RBC) [Ratio] 12.6 % Normal 11.0-15.0 [facility] Comment on above: Performed By: #### C BC #### [facility] [address] [place] [address] Dr. Sarah Church Hematocrit (Bld) [Volume fraction] 45.4 % Normal 36.0-48.0 [facility] Comment on above: Performed By: #### C BC #### [facility] [address] [place] [address] Dr. Sarah Church Hemoglobin (Bld) [Mass/Vol] 15.0 g/dL Normal 12.0-16.0 [facility] Comment on above: Performed By: #### C BC #### [facility] [address] [place] [address] Dr. Sarah Church IG # 0.02 10e3/ul Normal 0.00-0.03 [facility] Comment on above: Performed By: #### C BC #### [facility] [address] [place] [address] Dr. Sarah Church IG % 0.2 % Normal 0.0-0.5 [facility] Comment on above: Performed By: #### C BC #### [facility] [address] [place] [address] Dr. Sarah Church LYMPH # 2.7 103/ul Normal 1.2-3.8 [facility] Comment on above: Performed By: #### C BC #### [facility] [address] [place] [address] Dr. Sarah Church Lymphocytes/100 WBC (Bld) 31.0 % Normal 20.5-60.0 [facility] Comment on above: Performed By: #### C BC #### [facility] [address] [place] [address] Dr. Sarah Church MANUAL DIFF REQ NO Normal [facility] Comment on above: Performed By: #### C BC #### [facility] [address] [place] [address] Dr. Sarah Church MCH (RBC) [Entitic mass] 29.3 pg Normal 26.7-34.0 [facility] Comment on above: Performed By: #### C BC #### [facility] [address] [place] [address] Dr. Sarah Church MCHC (RBC) [Mass/Vol] 33.0 g/dL Normal 29.9-35.2 [facility] Comment on above: Performed By: #### C BC #### [facility] [address] [place] [address] Dr. Sarah Church MCV (RBC) [Entitic vol] 88.7 fL Normal 81.0-99.0 [facility] Comment on above: Performed By: #### C BC #### [facility] [address] [place] [address] Dr. Sarah Church MONO # 0.6 103/ul Normal 0.3-0.8 [facility] Comment on above: Performed By: #### C BC #### [facility] [address] [place] [address] Dr. Sarah Church Monocytes/100 WBC (Bld) 6.5 % Normal 1.7-12.0 [facility] Comment on above: Performed By: #### C BC #### [facility] [address] [place] [address] Dr. Sarah Church NEUT # 5.0 103/ul Normal 1.4-6.5 [facility] Comment on above: Performed By: #### C BC #### [facility] [address] [place] [address] Dr. Sarah Church Neutrophils/100 WBC (Bld) 58.1 % Normal 43.0-75.0 [facility] Comment on above: Performed By: #### C BC #### [facility] [address] [place] [address] Dr. Sarah Church Platelet mean volume (Bld) [Entitic vol] 11.0 fL Normal 9.5-13.5 [facility] Comment on above: Performed By: #### C BC #### [facility] [address] [address] [address] Sarah Church PLT 226 103/ul Normal 150-450 [facility] Comment on above: Performed By: #### C BC #### [facility] [address] [address] [address] Sarah Church RBC 5.12 106/ul Normal 4.20-5.40 [facility] Comment on above: Performed By: #### C BC #### [facility] [address] [address] [address] Sarah Church WBC 8.6 103/ul Normal 4.0-11.0 [facility] Comment on above: Performed By: #### C BC #### [facility] [address] [address] [address] Sarah Church GLYCOHEMOGLOBIN A1Con 2021 ADA RECOMMENDATION SEE BELOW Normal [facility] Comment on above: Result Comment: ADA RECOMMENDED LIMIT 4.0 - 6.0 ADA THERAPEUTIC TARGET < 7.0 ACTION SUGGESTED > 7.0 Performed By: #### A 1C ####[facility] [address] [address]Dr. Sarah Church Glucose [Mass/Vol] 275 mg/dL Normal [facility] Comment on above: Performed By: #### A 1C ####[facility] [id number] [address]Dr. Sarah Church HbA1c (Bld) [Mass fraction] 11.2 % Critically high 4.5-6.2 [facility] Comment on above: Performed By: #### A 1C ####[facility] [address] [address]Dr. Sarah Church LIPID PROFILEon 10-16-2021 CHOL-HDL RATIO NORM SEE BELOW Normal [facility] Comment on above: Result Comment: 3.3 - 4.4 LOW RISK 4.4 - 7.1 AVERAGE RISK 7.1 - 11.0 MODERATE RISK >11.0 HIGH RISK Performed By: #### L IPID, CMP ####[facility] [address] [id number]. Sarah Church Cholesterol [Mass/Vol] 159 mg/dL Normal <=200 [facility] Comment on above: Performed By: #### L IPID, CMP ####[facility] [id number] [id number]. Sarah Church Cholesterol in HDL [Mass/Vol] 41 mg/dL Normal 40-60 [facility] Comment on above: Performed By: #### L IPID, CMP ####[facility] [address] [id number]. Sarah Church Cholesterol in LDL [Mass/Vol] 102.6 mg/dL Normal [facility] Comment on above: Performed By: #### L IPID, CMP ####[facility] [address] [address]Dr. Corriebrenden Ranjit Cholesterol.total/C holesterol in HDL [Mass ratio] 3.9 {ratio} Normal [facility] Comment on above: Performed By: #### L IPID, CMP ####[facility] [address] [id number]. Sarah Church HDL NORMAL > or = 60 mg/dl - LO W CARDIOVASCULAR RISK <40 mg/dl - HIGH CARDIOVASCULAR RISK Normal [facility] Comment on above: Performed By: #### L IPID, CMP ####[facility] [address] [id number]. Sarah Church LDL CALC NORMAL SEE BELOW Normal [facility] Comment on above: Result Comment: <100 mg/dl OPTIMAL 100 - 129 mg/dl NEAR OR ABOVE OPTIMAL 130 - 159 mg/dl BORDERLINE HIGH 160 - 189 mg/dl HIGH >190 mg/dl VERY HIGH Performed By: #### L IPID, CMP ####[facility] [address] [id number]. Sarah Church Triglyceride [Mass/Vol] 77 mg/dL Normal <=150 [facility] Comment on above: Performed By: #### L IPID, CMP ####[facility] [address] [address]Dr. Sarah Church VLDL CALC 15.4 mg/dL Normal [facility] Comment on above: Performed By: #### L IPID, CMP ####[facility] [address] [address]Dr. Sarah Church MICROALBUMIN, RAND URon - mALB 2.0 mg/L Normal <=30.0 [facility] Comment on above: Performed By: #### M ALBR #### [facility] [address] [place], [place] [address] Dr. Sarah Church PROF 14(COMP METB)on 022 Albumin [Mass/Vol] 3.5 g/dL Normal 3.4-5.0 [facility] Comment on above: Performed By: #### L IPID, CMP ####[facility] [address] [address]Dr. Sarah Church Albumin/Globulin [Mass ratio] 0.8 {ratio} Normal [facility] Comment on above: Performed By: #### L IPID, CMP ####[facility] [address] [address]Dr. Sarah Church ALP [Catalytic activity/Vol] 85 U/L Normal 46-116 [facility] Comment on above: Performed By: #### L IPID, CMP ####[facility] [address] [address]Dr. Sarah Church ALT [Catalytic activity/Vol] 59 U/L Normal 14-59 [facility] Comment on above: Performed By: #### L IPID, CMP ####[facility] [address] [id number]. Sarah Church Anion gap [Moles/Vol] 15.1 mmol/L Normal [facility] Comment on above: Performed By: #### L IPID, CMP ####[facility] [address] [address]Dr. Sarah Church AST [Catalytic activity/Vol] 32 U/L Normal 15-37 [facility] Comment on above: Performed By: #### L IPID, CMP ####[facility] [address] [place], [place] [address]Dr. Sarah Church Bilirubin [Mass/Vol] 0.4 mg/dL Normal 0.2-1.0 [facility] Comment on above: Performed By: #### L IPID, CMP ####[facility] [address] [place], [place] [address]Dr. Sarah Church Calcium [Mass/Vol] 9.0 mg/dL Normal 8.5-10.1 [facility] Comment on above: Performed By: #### L IPID, CMP ####[facility] [address] [place], [place] [address]Dr. Sarah Church Chloride [Moles/Vol] 102 mmol/L Normal 98-107 [facility] Comment on above: Performed By: #### L IPID, CMP ####[facility] [address] [place], [place] [address]Dr. Sarah Church CO2 [Moles/Vol] 30.2 mmol/L Normal 21.0-32.0 [facility] Comment on above: Performed By: #### L IPID, CMP ####[facility] [address] [place], [place] [address]Dr. Sarah Church Creatinine [Mass/Vol] 0.81 mg/dL Normal 0.55-1.02 [facility] Comment on above: Performed By: #### L IPID, CMP ####[facility] [address] [place], [place] [address]Dr. Sarah Church EGFR-AF CITIZEN [place] >60 Normal >=60 [facility] Comment on above: Performed By: #### L IPID, CMP ####[facility] [address] [place], [place] [address]Dr. Corriebrenden Church EGFR-NON AF CITIZEN OF [place] >60 Normal >=60 [facility] Comment on above: Performed By: #### L IPID, CMP ####[facility] [address] [place], [place] [address]Dr. Sarah Church Globulin (S) [Mass/Vol] 3.9 g/dL Normal [facility] Comment on above: Performed By: #### L IPID, CMP ####[facility] [address] [place], [place] [address]Dr. Corriebrenden Church Glucose [Mass/Vol] 218 mg/dL Critically high 74-[address] [facility] Comment on above: Performed By: #### L IPID, CMP ####[facility] [address] [place], [place] [address]Dr. Sarah Church Potassium [Moles/Vol] 4.3 mmol/L Normal 3.5-5.1 [facility] Comment on above: Performed By: #### L IPID, CMP ####[facility] [address] [place], [place] [address]Dr. Sarah Church Protein [Mass/Vol] 7.4 g/dL Normal 6.4-8.2 [facility] Comment on above: Performed By: #### L IPID, CMP ####[facility] [address] [place], [place] [address]Dr. Sarah Church Sodium [Moles/Vol] 143 mmol/L Normal 136-145 [facility] Comment on above: Performed By: #### L IPID, CMP ####[facility] [address] [place], [place] [address]Dr. Sarah Church Urea nitrogen [Mass/Vol] 14.0 mg/dL Normal 7.0-18.0 [facility] Comment on above: Performed By: #### L IPID, CMP ####[facility] [address] [place], [place] [address]Dr. Sarah Church Urea nitrogen/Creatinine [Mass ratio] 17.2 mg/mg Normal [facility] Comment on above: Performed By: #### L IPID, CMP ####[facility] [address] [place], [place] [address]Dr. Sarah Church Vital Signs Date Time Vital Sign Value Performing Clinician Facility 02-23-2024 13:23-0400 Body height 157.48 cm [facility] 02-23-2024 13:23-0400 Body mass index (BMI) [Ratio] 38 kg/m2 [facility] 02-23-2024 13:23-0400 Body weight 94.37 kg [facility] 02-23-2024 13:23-0400 Diastolic blood pressure 78 mm[Hg] [facility] 02-23-2024 13:23-0400 Heart rate 75 /min [facility] 02-23-2024 13:23-0400 Respiratory rate 18 /min [facility] 02-23-2024 13:23-0400 SaO2% (BldA) [Mass fraction] 97 % [facility] 02-23-2024 13:23-0400 Systolic blood pressure 170 mm[Hg] [facility] 12-13-2023 13:03-0400 Body height 157.48 cm [facility] 12-13-2023 13:03-0400 Body mass index (BMI) [Ratio] 37.1 kg/m2 [facility] 12-13-2023 13:03-0400 Body weight 92.07 kg [facility] 12-13-2023 13:03-0400 Diastolic blood pressure 86 mm[Hg] [facility] 12-13-2023 13:03-0400 Heart rate 78 /min [facility] 12-13-2023 13:03-0400 Respiratory rate 18 /min [facility] 12-13-2023 13:03-0400 SaO2% (BldA) [Mass fraction] 96 % [facility] 12-13-2023 13:03-0400 Systolic blood pressure 153 mm[Hg] [facility] 12-05-2023 11:24-0400 Body height 157.48 cm [facility] 12-05-2023 11:24-0400 Body mass index (BMI) [Ratio] 36.9 kg/m2 [facility] 12-05-2023 11:24-0400 Body weight 91.62 kg [facility] 12-05-2023 11:24-0400 Diastolic blood pressure 75 mm[Hg] [facility] 12-05-2023 11:24-0400 Heart rate 80 /min [facility] 12-05-2023 11:24-0400 Systolic blood pressure 133 mm[Hg] [facility] 09-29-2023 13:44-0400 Diastolic blood pressure 76 mm[Hg] [facility] 09-29-2023 13:44-0400 Systolic blood pressure 130 mm[Hg] [facility] 09-29-2023 13:19-0400 Body height 157.48 cm [facility] 09-29-2023 13:19-0400 Body mass index (BMI) [Ratio] 38.7 kg/m2 [facility] 09-29-2023 13:19-0400 Body weight 95.9 kg [facility] 09-29-2023 13:19-0400 Heart rate 89 /min [facility] 09-29-2023 13:19-0400 Respiratory rate 18 /min [facility] 09-29-2023 13:19-0400 SaO2% (BldA) [Mass fraction] 98 % [facility] 09-06-2023 11:08-0400 Body height 157.48 cm [facility] 09-06-2023 11:08-0400 Body mass index (BMI) [Ratio] 37.6 kg/m2 [facility] 09-06-2023 11:08-0400 Body weight 93.44 kg [facility] 09-06-2023 11:08-0400 Diastolic blood pressure 72 mm[Hg] [facility] 09-06-2023 11:08-0400 Heart rate 89 /min [facility] 09-06-2023 11:08-0400 Systolic blood pressure 127 mm[Hg] [facility] 08-24-2023 15:08-0400 Body height 157.48 cm [facility] 08-24-2023 15:08-0400 Body mass index (BMI) [Ratio] 37.5 kg/m2 [facility] 08-24-2023 15:08-0400 Body weight 93.21 kg [facility] 08-19-2023 10:43-0400 Body height 157.48 cm MD Shayy Dela Cruz Work Phone: [facility] 08-19-2023 10:43-0400 Body mass index (BMI) [Ratio] 37.5 kg/m2 MD Shayy Dela Cruz Work Phone: [facility] 08-19-2023 10:43-0400 Body weight 93.09 kg MD Shayy Dela Cruz Work Phone: [facility] 08-19-2023 10:43-0400 Diastolic blood pressure 79 mm[Hg] MD Shayy Dela Cruz Work Phone: [facility] 08-19-2023 10:43-0400 Heart rate 83 /min MD Shayy Dela Cruz Work Phone: [facility] 08-19-2023 10:43-0400 Systolic blood pressure 135 mm[Hg] MD Shayy Dela Cruz Work Phone: [facility] 07-28-2023 14:22-0400 Body height 157.48 cm MD Shayy Dela Cruz Work Phone: [facility] 07-28-2023 14:22-0400 Body mass index (BMI) [Ratio] 37.6 kg/m2 MD Shayy Dela Cruz Work Phone: [facility] 07-28-2023 14:22-0400 Body weight 93.44 kg MD Shayy Dela Cruz Work Phone: [facility] 07-28-2023 14:22-0400 Diastolic blood pressure 84 mm[Hg] MD Shayy Dela Cruz Work Phone: [facility] 07-28-2023 14:22-0400 Heart rate 83 /min MD Shayy Dela Cruz Work Phone: [facility] 07-28-2023 14:22-0400 Respiratory rate 18 /min MD Shayy Dela Cruz Work Phone: [facility] 07-28-2023 14:22-0400 SaO2% (BldA) [Mass fraction] 97 % MD Shayy Dela Cruz Work Phone: [facility] 07-28-2023 14:22-0400 Systolic blood pressure 140 mm[Hg] MD Shayy Dela Cruz Work Phone: [facility] 07-19-2023 10:57-0400 Body height 157.48 cm MD Shayy Dela Cruz Work Phone: [facility] 07-19-2023 10:57-0400 Body mass index (BMI) [Ratio] 37.1 kg/m2 MD Shayy Dela Cruz Work Phone: [facility] 07-19-2023 10:57-0400 Body weight 92.07 kg MD Shayy Dela Cruz Work Phone: [facility] 07-19-2023 10:57-0400 Diastolic blood pressure 68 mm[Hg] MD Shayy Dela Cruz Work Phone: [facility] 07-19-2023 10:57-0400 Heart rate 89 /min MD Shayy Dela Cruz Work Phone: [facility] 07-19-2023 10:57-0400 Systolic blood pressure 132 mm[Hg] MD Shayy Dela Cruz Work Phone: [facility] 05-25-2023 11:00-0500 Body height 157.48 cm Cathie Scally Other [facility] 05-25-2023 11:00-0500 Body mass index (BMI) [Ratio] 37.23 kg/m2 Cathie Scally Other [facility] [employer] Other 05-25-2023 11:00-0500 Body weight 92.35 kg Cathie Scally Other [facility] 05-25-2023 11:00-0500 Diastolic blood pressure 71 mm[Hg] Cathie Scally Other [facility] 05-25-2023 11:00-0500 Respiratory rate 18 /min Cathie Scally Other [facility] [employer] Other 05-25-2023 11:00-0500 SaO2% (BldA) [Mass fraction] 95 % Cathie Vargas Other [facility] [employer] Other 05-25-2023 11:00-0500 Systolic blood pressure 139 mm[Hg] Cathie Vargas Other [facility] 04-15-2023 11:00-0500 Body height 157.48 cm Shayy Dela Cruz Other [facility] 04-15-2023 11:00-0500 Body mass index (BMI) [Ratio] 37.49 kg/m2 Shayy Dela Cruz Other [employer] Other 04-15-2023 11:00-0500 Body weight 92.99 kg Shayy Dela Cruz Other [facility] [employer] Other 04-15-2023 11:00-0500 Body weight 92.98 kg MD Shayy Dela Cruz Work Phone: [facility] 04-15-2023 11:00-0500 Diastolic blood pressure 84 mm[Hg] Shayy Dela Cruz Other [facility] 04-15-2023 11:00-0500 Systolic blood pressure 142 mm[Hg] Shayy Dela Cruz Other [facility] 06-22-2022 13:30-0500 Body height 157.48 cm Shayy Dela Cruz Other [employer] Other 06-22-2022 13:30-0500 Body mass index (BMI) [Ratio] 36.94 kg/m2 Shayy Dela Cruz Other [employer] Other 06-22-2022 13:30-0500 Body weight 91.63 kg Shayy Dela Cruz Other [employer] Other 06-22-2022 13:30-0500 Diastolic blood pressure 74 mm[Hg] Shayy Dela Cruz Other [employer] Other 06-22-2022 13:30-0500 SaO2% (BldA) [Mass fraction] 97 % Shayy Dela Cruz Other [employer] Other 06-22-2022 13:30-0500 Systolic blood pressure 112 mm[Hg] Shayy Dela Cruz Other [employer] Other Encounters Encounter Date Encounter Type Care Provider Facility Start: 02-23-2024 End: 02-23-2024 ambulatory Cathie Vargas [facility] Work Phone: Start: 02-23-2024 End: 02-23-2024 Patient encounter procedure [employer] Cathie Vargas Work Phone: [facility] Work Phone: Start: 02-23-2024 End: 02-23-2024 ambulatory [facility] Work Phone: Start: 02-23-2024 End: 02-23-2024 Patient encounter procedure [facility] Work Phone: Start: 01-17-2024 End: 01-17-2024 ambulatory [facility] Work Phone: Start: 01-17-2024 End: 01-17-2024 Patient encounter procedure [facility] Work Phone: Start: 12-13-2023 End: 12-13-2023 ambulatory [facility] Work Phone: Start: 12-13-2023 End: 12-13-2023 Patient encounter procedure [facility] Work Phone: Start: 12-05-2023 End: 12-05-2023 ambulatory [facility] Work Phone: Start: 12-05-2023 End: 12-05-2023 Patient encounter procedure [facility] Work Phone: Start: 11-07-2023 End: 11-07-2023 ambulatory [facility] Work Phone: Start: 11-07-2023 End: 11-07-2023 Patient encounter procedure [facility] Work Phone: Start: 09-29-2023 End: 09-29-2023 ambulatory [facility] Work Phone: Start: 09-29-2023 End: 09-29-2023 Patient encounter procedure [facility] Work Phone: Start: 09-06-2023 End: 09-06-2023 ambulatory [facility] Work Phone: Start: 09-06-2023 End: 09-06-2023 Patient encounter procedure [facility] Work Phone: Start: 08-24-2023 End: 08-24-2023 ambulatory [facility] Work Phone: Start: 08-24-2023 End: 08-24-2023 Patient encounter procedure [facility] Work Phone: Start: 08-19-2023 End: 08-19-2023 ambulatory MD Shayy Dela Cruz Work Phone: [facility] Work Phone: Start: 08-19-2023 End: 08-19-2023 Patient encounter procedure MD Shayy Dela Cruz Work Phone: [facility] Work Phone: Start: 07-28-2023 End: 07-28-2023 ambulatory MD Shayy Dela Cruz Work Phone: [facility] Work Phone: Start: 07-28-2023 End: 07-28-2023 Patient encounter procedure MD Shayy Dela Cruz Work Phone: [facility] Work Phone: Start: 07-19-2023 End: 07-19-2023 ambulatory MD Shayy Dela Cruz Work Phone: [facility] Work Phone: Start: 07-19-2023 End: 07-19-2023 Patient encounter procedure MD Shayy Dela Cruz Work Phone: [facility] Work Phone: Start: 07-12-2023 Non-patient / Non-visit MD Shayy Dela Cruz Work Phone: [facility] Work Phone: Start: 06-14-2023 End: 06-14-2023 Patient encounter procedure MD Shayy Dela Cruz Work Phone: [facility] Work Phone: Start: 06-14-2023 End: 06-14-2023 ambulatory MD Shayy Dela Cruz Work Phone: [facility] Work Phone: Start: 06-06-2023 End: 06-06-2023 ambulatory Shayy Dela Cruz Other [employer] Other Start: 06-06-2023 Telephone encounter Shayy Dela Cruz [facility] Start: 05-25-2023 [facility] visit new patient Cathie Sheikh y [facility] Start: 05-25-2023 End: 05-25-2023 ambulatory MD Shayy Dela Cruz Work Phone: [employer] Other Start: 05-25-2023 End: 05-25-2023 Discharged Recurring MD Shayy Dela Cruz Work Phone: [facility] Work Phone: Start: 05-25-2023 Registered Recurring MD Shayy Dela Cruz [facility] Work Phone: Start: 05-25-2023 End: 05-25-2023 Patient encounter procedure MD Shayy Dela Cruz Work Phone: [facility]- Start: 05-12-2023 End: 05-12-2023 ambulatory Shayy Dela Cruz Other [facility] Other Start: 05-12-2023 Telephone encounter Shayy Dela Cruz [facility] Start: 05-10-2023 End: 05-10-2023 ambulatory Shayy Dela Cruz Other [facility] Other Start: 05-10-2023 Telephone encounter Shayy Dela Cruz [facility] Start: 04-22-2023 End: 04-22-2023 ambulatory Shayy Dela Cruz Other [facility] Other Start: 04-22-2023 Telephone encounter Shayy Dela Cruz [facility] Start: 04-20-2023 End: 04-20-2023 ambulatory Lynne Hernandez Other [facility] Other Start: 04-20-2023 Telephone encounter Lynne Avilat [facility] Start: 04-18-2023 End: 04-18-2023 ambulatory Lynne Avilat Other [facility] Other Start: 04-18-2023 Telephone encounter Lynne Avilat [facility] Start: 04-15-2023 End: 04-15-2023 ambulatory Shayy Dela Cruz Other [facility] Other Start: 04-15-2023 Office outpatient visit 15 minutes Shayy Dela Cruz [facility] Start: 04-15-2023 End: 04-15-2023 Patient encounter procedure MD Shayy Dela Cruz Work Phone: [facility] Work Phone: Start: 04-06-2023 End: 04-06-2023 ambulatory Shayy Dela Cruz Other [facility] Other Start: 04-06-2023 Telephone encounter Shayy Dela Cruz [facility] Start: 02-25-2023 End: 02-25-2023 ambulatory Shayy Dela Cruz Other [facility] Other Start: 02-25-2023 Telephone encounter Shayy Dela Cruz [facility] Start: 12-13-2022 End: 12-13-2022 ambulatory MARQUES [facility] Start: 10-29-2022 End: 10-29-2022 ambulatory Shayy Dela Cruz Other [facility] Other Start: 10-29-2022 Telephone encounter Shayy Dela Cruz [facility] Start: 08-27-2022 End: 08-28-[address] SHAYY DELA CRUZ Facility:[facility] Start: 08-10-2022 End: 08-10-2022 ambulatory [facility] Start: 07-20-2022 End: 07-21-[address] SHAYY DELA CRUZ Facility:[facility] Start: 07-19-2022 End: 07-19-2022 ambulatory Shayy Dela Cruz Other [facility] Other Start: 07-19-2022 Telephone encounter Shayy Dela Cruz [facility] Start: 07-12-2022 End: 07-13-[address] SHAYY DELA CRUZ Facility:[facility] Start: 07-05-2022 End: 07-05-2022 ambulatory Shayy Dela Cruz Other [facility] Other Start: 07-05-2022 Telephone encounter Shayy Dela Cruz [facility] Start: 06-28-2022 End: 06-28-2022 ambulatory Shayy Dela Cruz Other [facility] Other Start: 06-28-2022 Telephone encounter Shayy Dela Cruz [facility] Start: 06-22-2022 End: 06-22-2022 ambulatory Shayy Dela Cruz Other [facility] Other Start: 06-22-2022 Office outpatient visit 15 minutes Shayy Dela Cruz [facility] Start: 05-27-2022 End: 05-27-2022 ambulatory Shayy Dela Cruz Other [facility] Other Start: 05-27-2022 Telephone encounter Shayy Dela Cruz [facility] Start: 05-19-2022 End: 05-20-[address] [...] Start: 12-13-2022 Follow-up visit Follow-up MARQUES MOROCHO Plan of Treatment Date Care Activity Detail Author Comprehensive metabo lic 2000 panel - Serum or Plasma [facility] enter MG Breast - bilateral Screening [facility] Immunizations Immunization Date Immunization Notes Care Provider Fa cility 02-01-2022 influenza virus vaccine, split virus (incl. purified surface antigen) Shayy Dela Cruz Other [facility] Other 02-01-2022 influenza virus vaccine, unspecified formulation MD Shayy Dela Cruz Work Phone: [facility] Payers Date Payer Category Payer Medicare [id number] 2023 Self-pay 2021 Medicaid [id number] 2017 Unknown [id number] 1972 Unknown [id number] 2.16.84 [id number] 1972 Unknown [id number] 2.16.84 [id number] 1972 Unknown [id number] 2.16.84 [id number] 1972 Unknown [id number] 2.16.84 [id number] 1972 Unknown [id number] 2.16.84 [id number] 1972 Unknown [id number] 2.16.84 [id number] 1972 Unknown [id number] 2.16.84 [id number] 1972 Unknown [id number] 2.16.84 [id number] 1972 Unknown [id number] 2.16.84 [id number] 1959 Medicaid [id number] 2. [id number] 1957 Medicare [id number] . [id number] Unknown Unknown [id number] 2.16.8 [id number] Unknown [id number] 2.16.8 [id number] Social History Date Type Detail Facility Unknown if ever smoked [facility] Other Sex Assigned At Sex Assigned At Bir th [facility] Other Start: 1970 Sex Assigned At Female F [facility] Start: 07-19-2023 Tobacco smoking status NHIS Never smoked tobacco (finding) [facility] Medical Equipment Procedure Code Equipment Code [...] x 3/16 needle Start: 07-28-2023 End: 08-23-2023 Pen Needle, Diab etic (Bd Ultra-Fine Mini Pen Needle) 31 gauge x 3/16 needle Start: 08-23-2023 Pen Needle, Diab etic (Bd Ultra-Fine Mini Pen Needle) 31 gauge x 3/16 needle Start: 07-28-2023 End: 08-23-2023 Pen Needle, Diab etic (Bd Ultra-Fine Mini Pen Needle) 31 gauge x 3/16 needle Start: 08-23-2023 Pen Needle, Diab etic (Bd Ultra-Fine Mini Pen Needle) 31 gauge x 3/16 needle Start: 07-28-2023 End: 08-23-2023 Pen Needle, Diab etic (Bd Ultra-Fine Mini Pen Needle) 31 gauge x 3/16 needle Start: 08-23-2023 Pen Needle, Diab etic (Bd Ultra-Fine Mini Pen Needle) 31 gauge x 3/16 needle Start: 07-28-2023 End: 08-23-2023 Pen Needle, Diab etic (Bd Ultra-Fine Mini Pen Needle) 31 gauge x 3/16 needle Start: 08-23-2023 Pen Needle, Diab etic (Bd Ultra-Fine Mini Pen Needle) 31 gauge x 3/16 needle Start: 07-28-2023 End: 08-23-2023 Pen Needle, Diab etic (Bd Ultra-Fine Mini Pen Needle) 31 gauge x 3/16 needle Start: 08-23-2023 Pen Needle, Diab etic (Bd Ultra-Fine Mini Pen Needle) 31 gauge x 3/16 needle Start: 07-28-2023 End: 08-23-2023 Blood Sugar Diagnostic (Onetouch Verio Test Strips) strip Start: 12-23-2023 Lancets Start: 12-23-2023 Pen Needle, Diab etic (Bd Ultra-Fine Mini Pen Needle) 31 gauge x 3/16 needle Start: 08-23-2023 Blood Sugar Diagnostic (Onetouch Verio Test Strips) strip Start: 12-23-2023 End: 12-23-2023 Lancets Start: 12-23-2023 End: 12-23-2023 Pen Needle, Diab etic (Bd Ultra-Fine Mini Pen Needle) 31 gauge x 3/16 needle Start: 07-28-2023 End: 08-23-2023 Blood Sugar Diagnostic (Onetouch Verio Test Strips) strip Start: 12-23-2023 Lancets Start: 12-23-2023 Pen Needle, Diab etic (Bd Ultra-Fine Mini Pen Needle) 31 gauge x 3/16 needle Start: 08-23-2023 Blood Sugar Diagnostic (Onetouch Verio Test Strips) strip Start: 12-23-2023 End: 12-23-2023 Lancets Start: 12-23-2023 End: 12-23-2023 Pen Needle, Diab etic (Bd Ultra-Fine Mini Pen Needle) 31 gauge x 3/16 needle Start: 07-28-2023 End: 08-23-2023 Blood Sugar Diagnostic (Onetouch Verio Test Strips) strip Start: 12-23-2023 Lancets Start: 12-23-2023 Pen Needle, Diab etic (Bd Ultra-Fine Mini Pen Needle) 31 gauge x 3/16 needle Start: 08-23-2023 Blood Sugar Diagnostic (Onetouch Verio Test Strips) strip Start: 12-23-2023 End: 12-23-2023 Lancets Start: 12-23-2023 End: 12-23-2023 Pen Needle, Diab etic (Bd Ultra-Fine Mini Pen Needle) 31 gauge x 3/16 needle Start: 07-28-2023 End: 08-23-2023 Clinical Notes 01-11-2022 to 06-06-2023 Note Date & Type Note Facility 06-06-2023 Evaluation note Encounter Date Diagnosis Assessment Notes Jun, Controlled type 2 diabetes mellitus with hyperglycemia, unspecified whether manager terminal insulin use (ICD-10 - E11.65) [facility] Other 01-24-2024 Evaluation note* Encounter Date Diagnosis [...] Instructions material was published to portal May, detention current use of insulin (ICD-10 - Z79.4) May, BMI 37.0-37.9, adult (ICD-10 - Z68.37) May, Other 05/25/2023 The patient was given a Dexcom G7 sensor sample and an Office Owned Loaner Hematite. She was taught how to use the [...] educating the patient by Nguyễn Norwood RN, [facility]. [facility] Other 12-15-2023 Evaluation note* Encounter Date Diagnosis Assessment Notes Treatment Notes Treatment Clinical Notes Apr, Type 2 diabetes mellitus with hyperglycemia (ICD-10 - E11.65) Rx handwritten for diabetic shoes. Pt agrees to referral to specialty clinic. Continue present meds and discussed healthy diet in meantime. Apr, detention (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 of insulin (ICD-10 - Z79.4) [facility] Other 08-14-2023 NoteCardiology Clinic Note Subjective Zoila [...] Active Problem List Diagnosis Coronary arteriosclerosis in [place] artery Old myocardial infarction Sinusitis Type 1 [...] the IVC. Mitral V (more content not included)...[facility] 08-10-2022 NoteCardiology Clinic Note Subjective [...] Active Problem List Diagnosis Coronary arteriosclerosis in [place] artery Old myocardial infarction Sinusitis Type 1 [...] in size. The (more content not included)... [facility]02-21-2023 Evaluation note* Encounter Date Diagnosis Assessment Notes Treatment Notes Treatment Clinical Notes Jun, Acute non-recurrent maxillary sinusitis (ICD-10 - J01.00) Jun, Controlled type 2 diabetes mellitus with hyperglycemia, unspecified whether manager terminal insulin use (ICD-10 - E11.65) Once again advised management at diabetes clinic. She declines and will continue meds, followup in 3 months, and recheck labs at that time. She is eating more of a keto diet and is certain that is helping her A1C improve. Jun, Screening mammogram for breast cancer (ICD-10 - Z12.31) Zoila will call for an [employer] [facility] Other 01-31-2023 NoteIn light of elevated LDL will change simvastatin to lipitor 40 mg daily. Will repeat liver function and lipid level in 2 months. Staff to notify pt. Malcolm Evans DATA LIBRARIAN Division of Cardiology, [facility]- [phone] Pager- [phone] Email- [email or web address]01-18-2023 NotePatient here for 1 year follow up [...] light-headedness. All other systems reviewed and are negative.[facility] 05-19-2022 NoteUTP CARDIOLOGY PROGRESS NOTE [...] past 12 months Assessment/Plan: Coronary arteriosclerosis in [place] artery Coronary artery disease is stable, no [...] week RTC 1 month to review B/P [facility]01-18-2023 Note Hypertension is uncontrolled, Will add lisinopril 5 mg po daily, and continue metoprolol Goal b/p 130/80 or less, monitor for dry persistent cough- call office for any concerns, repeat BMP in 1 week RTC 1 month to review B/P [facility]01-18-2023 Note Coronary artery disease is stable, no concerning symptoms continue risk factor modifications- heart healthy diet, regular exercise as tolerated and continue all medications.[facility] 04-15-2022 NotePROCEDURE: XR FOOT LT [...] Electronically authenticated by: NARINDER LAN Date: 2022-04-15 06:08[facility]09-12-2022 NotePROCEDURE: XR TOES RT MIN 2 V HISTORY: Pain of toe of right foot ; first toe pain following injury COMPARISON: None. FINDINGS: BONES:No fracture, acute abnormality, or significant arthropathy. SOFT TISSUES:No visible soft tissue swelling. EFFUSION:None visible. OTHER: Negative. IMPRESSION: 1. No acute bone abnormality. 2. Mild degenerative joint disease. Electronically authenticated by: NARINDER LAN Date: 2022-01-11 18:48[facility]Reason for visit Narrative* Chief Complaint 3 Month Follow Up Referral Dr. Negro Dela Cruz DM download [facility] Work Phone: chief complaint+Reason for visit Narrative* Chief Complaint 3 Month Follow Up Referral Dr. Negro Dela Cruz DM download Reason for Visit Type 2 diabetes holli [facility] Work Phone: chief complaint+Reason for visit Narrative* Chief Complaint Referral Dr. Negro LAGUERRE download 3 Month Check up Reason for Visit Type 2 diabetes holli [facility] Work Phone: chief complaint+Reason for visit Narrative* Chief Complaint Referral Dr. Negro LAGUERRE download 3 Month Check up amrik reader Reason for Visit Type 2 diabetes holli itus Right wrist fracture Type 2 diabetes mellitus [facility] Work Phone: chief complaint+Reason for visit [...] mellitus Vitamin D deficiency Gastroesophageal reflux disease [facility] Work Phone: Evaluation noteNo InformationNort [facility] Other Evaluation noteNo assessment information available [facility] Work Phone: Evaluation note* Diagnosis Onset Date Resolution Status Type 2 diabetes mellitus acu te [facility] Work Phone: Evaluation note* Diagnosis Onset Date Resolution Status Type 2 diabetes mellitus acu te Right wrist fracture acute Type 2 diabetes mellitus acu te [facility] Work Phone: Evaluation note* Diagnosis Onset Date Resolution Status Type 2 diabetes mellitus acu te Right wrist fracture acute Type 2 diabetes mellitus acu te BMI 37.0-37.9, adult acute Dietary counseling and surveillance acute History of myocardial infarction acute HTN (hypertension) acute Hyperlipidemia acute Long-term insulin use acute Type 2 diabetes mellitus acu te Vitamin D deficiency acute Gastroesophageal reflux disease acute [facility] Work Phone: evaluation note* Diagnosis Onset Date Resolution Status Type [...] acute Type 2 diabetes mellitus acu te [facility] Work Phone: evaluation note* Diagnosis Onset Date Resolution Status Right wrist fracture acute Type 2 diabetes mellitus acu te BMI 37.0-37.9, adult acute Dietary counseling and surveillance acute History of myocardial infarction acute HTN (hypertension) acute Hyperlipidemia acute Long-term insulin use acute Type 2 diabetes mellitus acu te Vitamin D deficiency acute Gastroesophageal reflux disease acute Type 2 diabetes mellitus acu te Gastroesophageal reflux disease acute Right ankle pain acute Type 2 diabetes mellitus acu te [facility] Work Phone: evaluation note* Diagnosis Onset Date Resolution Status Gastroesophageal reflux disease acute Type 2 diabetes mellitus acu te Gastroesophageal reflux disease acute Right ankle pain acute Type 2 diabetes mellitus acu te BMI 37.0-37.9, adult acute Dietary counseling and surveillance acute History of myocardial infarction acute HTN (hypertension) acute Hyperlipidemia acute Long-term insulin use acute Type 2 diabetes mellitus acu te Vitamin D deficiency acute Type 2 diabetes mellitus acu te [facility] Work Phone: evaluation note* Diagnosis Onset Date Resolution Status Gastroesophageal reflux disease acute Right ankle pain acute Type 2 diabetes mellitus acu te BMI 37.0-37.9, adult acute Dietary counseling and surveillance acute History of myocardial infarction acute HTN (hypertension) acute Hyperlipidemia acute Long-term insulin use acute Type 2 diabetes mellitus acu te Vitamin D deficiency acute Type 2 diabetes mellitus acu te Screening mammogram for breast cancer acute [facility] Work Phone: evaluation note* Diagnosis Onset Date Resolution Status BMI 37.0-37.9, adult acute Dietary counseling and surveillance acute History of myocardial infarction acute HTN (hypertension) acute Hyperlipidemia acute Long-term insulin use acute Type 2 diabetes mellitus acu te Vitamin D deficiency acute Type 2 diabetes mellitus acu te Gastroesophageal reflux disease acute Screening mammogram for breast cancer acute Type 2 diabetes mellitus acu te BMI 37.0-37.9, adult acute Dietary counseling and surveillance acute History of myocardial infarction acute HTN (hypertension) acute Hyperlipidemia acute Long-term insulin use acute Type 2 diabetes mellitus acu te Vitamin D deficiency acute [facility] Work Phone: Evaluation note* Diagnosis Onset Date Resolution Status Type 2 diabetes mellitus acu te Gastroesophageal reflux disease acute Screening mammogram for breast cancer acute Type 2 diabetes mellitus acu te BMI 37.0-37.9, adult acute Dietary counseling and surveillance acute History of myocardial infarction acute HTN (hypertension) acute Hyperlipidemia acute Long-term insulin use acute Type 2 diabetes mellitus acu te Vitamin D deficiency acute Type 2 diabetes mellitus acu te [facility] Work Phone: Evaluation note* Diagnosis Onset Date Resolution Status Gastroesophageal reflux disease acute Screening mammogram for breast cancer acute Type 2 diabetes mellitus acu te BMI 37.0-37.9, adult acute Dietary counseling and surveillance acute History of myocardial infarction acute HTN (hypertension) acute Hyperlipidemia acute Long-term insulin use acute Type 2 diabetes mellitus acu te Vitamin D deficiency acute Type 2 diabetes mellitus acu te BMI 37.0-37.9, adult acute Dietary counseling and surveillance acute History of myocardial infarction acute HTN (hypertension) acute Hyperlipidemia acute Long-term insulin use acute Type 2 diabetes mellitus acu te Vitamin D deficiency acute [facility] Work Phone: Hisblds general Narrative - Reported* Type Description Date Medical History Herpes labialis Medical History Candidiasis of mouth Medical History Type 2 diabetes holli itus with diabetic polyneuropathy, unspecified whether senior care insulin use Medical History Controlled type 2 di abetes mellitus with hyperglycemia, unspecified whether senior care insulin use Medical History Obesity Medical History Dyslipidemia Medical History CAD in [place] artery Medical History Asthma, intermittent Medical History [...] History appendectomy Surgical History 7 stents 1999 [facility] Other [place] general Narrative - Reported* Type Description Date Medical History Herpes labialis Medical History Candidiasis of mouth Medical History Type 2 diabetes holli itus with diabetic polyneuropathy, unspecified whether manager terminal insulin use Medical History Controlled type 2 di abetes mellitus with hyperglycemia, unspecified whether manager terminal insulin use Medical History Obesity Medical History Dyslipidemia Medical History CAD in [place] artery Medical History Asthma, intermittent Medical History [...] stents 1999 Hospitalization History see surgical history [facility] Other History general Narrative - Reported* Type Description Date Medical History Herpes labialis Medical History Candidiasis of mouth Medical History Type 2 diabetes holli itus with diabetic polyneuropathy, unspecified whether manager terminal insulin use Medical History Controlled type 2 di abetes mellitus with hyperglycemia, unspecified whether senior care insulin use Medical History Obesity Medical History Dyslipidemia Medical History CAD in [place] artery Medical History Asthma, intermittent Medical History [...] coronary 1999 Hospitalization History see surgical history [facility] Other Summary Purpose Family History No Family History Records Found Relationship Condition Age at Onset Recorded Date/T matt father Diabetes mellitus Unknown Heart disease Unknown Unknown family member Family history of other condition Unknow n Not Specified Unknown Diabetes mellitus Unknown Relationship Condition Age at Onset Recorded Date/T matt father Diabetes mellitus Unknown Heart disease Unknown Unknown family member Family history of other condition Unknow n mother Unknown Diabetes mellitus Unknown Advance Directives No [...] itus with hyperglycemia (E11.65) Referral Organization [facility] Karli fuchs Referring Provider First Name Shayy Referring Provider Last Name Jose De Jesus Referring Provider [facility]ty [facility] Referred Organization [facility] Referred Provider Marcia Mendes Referred Address [address],[place], [place],[address] Referred Provider Specialty Nurse uHey saldaña Referral Priority Routine General Notes Heather [...] Gastroesophageal reflux disease Type 2 diabetes mellitus Chief Complaint download 3 Month Check up amrik reader Gastroesophageal reflux disease (GERD) 4 week DL per DS/ amrik follow up Reason for Visit Type 2 diabetes holli itus Right wrist fracture Type 2 diabetes mellitus BMI 37.0-37.9, adult Dietary counseling and surveillance History of myocardial infarction HTN (hypertension) Hyperlipidemia Long-term insulin use Type 2 diabetes mellitus Vitamin D deficiency Gastroesophageal reflux disease Type 2 diabetes mellitus Chief Complaint 3 Month Check up amrik reader Gastroesophageal reflux disease (GERD) 4 week DL per DS/ amrik follow up DMN f/u / amrik reader Reason for Visit Right wrist fracture Type 2 diabetes mellitus BMI 37.0-37.9, adult Dietary counseling and surveillance History of myocardial infarction HTN (hypertension) Hyperlipidemia Long-term insulin use Type 2 diabetes mellitus Vitamin D deficiency Gastroesophageal reflux disease Type 2 diabetes mellitus Gastroesophageal reflux disease Right ankle pain Type 2 diabetes mellitus Chief Complaint Gastroesophageal ref lux disease (GERD) 4 week DL per DS/ amrik follow up DMN f/u / amrik reader DL 5 week Reason for Visit Gastroesophageal ref lux disease Type 2 diabetes mellitus Gastroesophageal reflux disease Right ankle pain Type 2 diabetes mellitus BMI 37.0-37.9, adult Dietary counseling and surveillance History of myocardial infarction HTN (hypertension) Hyperlipidemia Long-term insulin use Type 2 diabetes mellitus Vitamin D deficiency Type 2 diabetes mellitus Chief Complaint follow up DMN f/u / amrik reader DL 5 week 3 month f/u Reason for Visit Gastroesophageal ref lux disease Right ankle pain Type 2 diabetes mellitus BMI 37.0-37.9, adult Dietary counseling and surveillance History of myocardial infarction HTN (hypertension) Hyperlipidemia Long-term insulin use Type 2 diabetes mellitus Vitamin D deficiency Type 2 diabetes mellitus Screening mammogram for breast cancer Chief Complaint DMN f/u / amrik read er DL 5 week 3 month f/u 10 week f/u DMN f/u Reason for Visit BMI 37.0-37.9, adult Dietary counseling and surveillance History of myocardial infarction HTN (hypertension) Hyperlipidemia Long-term insulin use Type 2 diabetes mellitus Vitamin D deficiency Type 2 diabetes mellitus Gastroesophageal reflux disease Screening mammogram for breast cancer Type 2 diabetes mellitus BMI 37.0-37.9, adult Dietary counseling and surveillance History of myocardial infarction HTN (hypertension) Hyperlipidemia Long-term insulin use Type 2 diabetes mellitus Vitamin D deficiency Chief Complaint DL 5 week 3 month f/u 10 week f/u DMN f/u 5 week Reason for Visit Type 2 diabetes holli itus Gastroesophageal reflux disease Screening mammogram for breast cancer Type 2 diabetes mellitus BMI 37.0-37.9, adult Dietary counseling and surveillance History of myocardial infarction HTN (hypertension) Hyperlipidemia Long-term insulin use Type 2 diabetes mellitus Vitamin D deficiency Type 2 diabetes mellitus Chief Complaint 3 month f/u 10 week f/u DMN f/u 5 week 10 week f/u-DMN f/u /dexcom on phone Reason for Visit Gastroesophageal ref lux disease Screening mammogram for breast cancer Type 2 diabetes mellitus BMI 37.0-37.9, adult Dietary counseling and surveillance History of myocardial infarction HTN (hypertension) Hyperlipidemia Long-term insulin use Type 2 diabetes mellitus Vitamin D deficiency Type 2 diabetes mellitus BMI 37.0-37.9, adult Dietary counseling and surveillance History of myocardial infarction HTN (hypertension) Hyperlipidemia Long-term insulin use Type 2 diabetes mellitus Vitamin D deficiency Chief Complaint 3 month f/u 10 week f/u DMN f/u 5 week 10 week f/u-DMN f/u /dexcom on phone Vitamin D deficiency Hyperlipidemia Type 2 diabete Reason for Visit Gastroesophageal ref lux disease Screening mammogram for breast cancer Type 2 diabetes mellitus BMI 37.0-37.9, adult Dietary counseling and surveillance History of myocardial infarction HTN (hypertension) Hyperlipidemia Long-term insulin use Type 2 diabetes mellitus Vitamin D deficiency Type 2 diabetes mellitus BMI 37.0-37.9, adult Dietary counseling and surveillance History of myocardial infarction HTN (hypertension) Hyperlipidemia Long-term insulin use Type 2 diabetes mellitus Vitamin D deficiency Additional Source Comments INFORMATION SOURCE (unrecogn ized section and content) DATE CREATED AUTHOR 10/25/2017 [facility] DATE CREATED AUTHOR AUTHOR'S ORGANIZ ATION 09/03/2022 [facility] DATE CREATED AUTHOR AUTHOR'S ORGANIZ ATION 12/13/2022 [facility] DATE CREATED AUTHOR AUTHOR'S ORGANIZ ATION 02/25/2024 [facility] REASON FOR VISIT (unrecogniz ed section and content) labsmessage3 MONTH FOLLOW UP ACrefillmessagemessageRefill3 month Follow upDM [id number] ReferralrefillsNo InformationRefillReferral Dr. Negro Gallegos sensor running [...] August 24, 2023 End: August 24, 2023 Team Status: Inactive Member Role Status Dates Shayy Dela Cruz MD Primary Care Provide r, Attending Provider Active Start: September 06, 2023 End: September 06, 2023 Team Status: Inactive Member Role Status Dates Shayy Dela Cruz MD Primary Care Provider Active Start: September 29, 2023 End: September 29, 2023 Cathie Vargas APRN Attending Provider Active Start: September 29, 2023 End: September 29, 2023 Team Status: Inactive Member Role Status Dates Shayy Dela Cruz MD Primary Care Provider Active Start: November 07, 2023 End: November 07, 2023 Curtis Norwood RN Attending Provider Active St art: November 07, 2023 End: November 07, 2023 Cathie Vargas APRN Active Star t: November 07, 2023 End: November 07, 2023 Team Status: Active Member Role Status Dates Shayy Dela Cruz MD Primary Care Provide r, Attending Provider Active Start: July 12, 2023 Team Status: Inactive Member Role Status Susan Dela Cruz MD Primary Care Provide r, Attending Provider Active Start: July 19, 2023 End: July 19, 2023 Team Status: Inactive Member Role Status Susan Dela Cruz MD Primary Care Provider Active [...] 2023 Team Status: Inactive Member Role Status Susan Dela Cruz MD Primary Care Provider Active Start: June 14, 2023 End: June 14, 2023 Brittani Collier RN Attending Provider Active Start: June 14, 2023 End: June 14, 2023 Cathie Vargas APRN Active Star t: June 14, 2023 End: June 14, 2023 Team Status: Inactive Member Role Status Susan Dela Cruz MD Primary Care Provide r, Attending Provider Active Start: May 25, 2023 End: May 25, 2023 Team Status: Inactive Member Role Status Susan Dela Cruz MD Primary Care Provide r, Attending Provider Active Start: December 05, 2023 End: December 05, 2023 Team Status: Inactive Member Role Status Susan Dela Cruz MD Primary Care Provider Active Start: December 13, 2023 End: December 13, 2023 Cathie Vargas APRN Attending Provider Active Start: December 13, 2023 End: December 13, 2023 Team Status: Inactive Member Role Status Susan Dela Cruz MD Primary Care Provider Active Start: January 17, 2024 End: January 17, 2024 Cathie Vargas APRN Active Star t: January 17, 2024 End: January 17, 2024 Brittani Collier RN Attending Provider Active Start: January 17, 2024 End: January 17, 2024 Team Status: Inactive Member Role Status Dates Shayy Dela Cruz MD Primary Care Provider Active Start: February 23, 2024 End: February 23, 2024 Cathie Vargas APRN Attending Provider Active Start: February 23, 2024 End: February 23, 2024 Team Status: Inactive Member Role Status Dates Cathie Vargas APRN Attending Provider Active Start: February 23, 2024 End: February 23, 2024 Goals (unrecognized section and content) Goals may [...] BE BASED ON THE PRIMARY CLINICAL RECORDS. [facility] [employer] [facility]. provides no warranty or guarantee of the accuracy or completeness of information in this document.
--- NOTE | 2024-02-27 11:55 | ED.GENADUL1 ---
HPI HPI - General Adult General Chief complaint: Extremity Injury, Lower Stated complaint: LOWER EXTREMITY INJURY Time Seen by Provider: 02/27/24 11:41 Source: patient and family Mode of arrival: Wheelchair Limitations: no limitations History of Present Illness HPI narrative: Patient is a 54-year-old female who is presenting to the ER today with chief complaint of right Achilles and calf pain. Patient injured this back in September. Patient has seen Dr. Bruce previously. Patient never had surgery on her left Achilles. Patient does have a walking boot at home that is not in good condition. She does not have crutches. Patient stated that today she had a misstep, and had a possible dorsiflexion injury where she felt a popping sensation to her left Achilles and left lower calf. Patient was brought to the ER by another friend. Patient has pain in the bottom of her left calf and Achilles. Patient has not had anything for pain prior to arrival. Ice was applied. No acute complaints. no other injury.. All systems are negative except as noted/marked. All systems reviewed and otherwise negative. Nurses note and vital signs reviewed and patient is not hypoxic. General: The patient appears well and in no apparent distress. Patient is resting comfortably on cart. Patient is not toxic, lethargic, or listless Skin: Warm, dry, no pallor noted. There is no rash noted. No petechiae, purpura. Head: Normocephalic, atraumatic Eye: Normal conjunctiva, no drainage, EOMI. PERRL Ears, Nose, Mouth, and Throat: oral mucosa is moist. Nares patent. Mouth without vesicles. Cardiovascular: Regular Rate and Rhythm, no murmur, gallop, rub Respiratory: Patient is in no distress, no accessory muscle use, lungs are clear to auscultation, no wheezing, rales or rhonchi Musculoskeletal: Patient has full range of motion of all of the extremities except the left lower leg. Patient has moderate to severe tenderness to palpation to insertion of left Achilles, there is some soft tissue bogginess there as well. Also moderate to severe tenderness to palpation to the bottom of her left calf, positive Lowe test. Otherwise no tenderness to palpation to bilateral malleoli, no bony tenderness to palpation in the left foot., no motor, sensory, or focal neurological deficits Neurological: A&O x4, normal speech Psychiatric: Cooperative Related Data Home Medications ?Medication ?Instructions ?Recorded ?Confirmed albuterol sulfate 90 mcg/actuation 2 inh inhalation PRN PRN shortness 12/31/22 12/31/22 aerosol inhaler of breath or wheezing aspirin 81 mg capsule 81 mg PO DAILY 12/31/22 12/31/22 atorvastatin 40 mg tablet 40 mg PO DAILY 12/31/22 12/31/22 carvedilol 6.25 mg tablet 6.25 mg PO Q12H 12/31/22 12/31/22 esomeprazole magnesium 40 mg 40 mg PO Q24H 12/31/22 12/31/22 capsule,delayed release fluticasone propionate 110 3 puff inhalation PRN PRN 12/31/22 12/31/22 mcg/actuation HFA aerosol inhaler bronchospasm (Flovent HFA) glipizide 10 mg tablet 20 mg PO BID 12/31/22 12/31/22 hydrochlorothiazide 12.5 mg capsule 12.5 mg PO DAILY 12/31/22 12/31/22 insulin glargine U-300 conc 300 unit subcut 12/31/22 unit/mL (1.5 mL) subcutaneous pen (Toujeo SoloStar U-300 Insulin) insulin lispro 100 unit/mL subcut 12/31/22 subcutaneous pen lisinopril 5 mg tablet 5 mg PO DAILY 12/31/22 12/31/22 losartan 25 mg tablet 25 mg PO DAILY 12/31/22 12/31/22 metformin 1,000 mg tablet 1,000 mg PO BID 12/31/22 12/31/22 Previous Rx's ?Medication ?Instructions ?Recorded nabumetone 750 mg tablet 750 mg PO BID PRN pain #20 tabs 12/31/22 ibuprofen 600 mg tablet 600 mg PO TID PRN pain #30 tabs 09/04/23 hydrocodone 5 mg-acetaminophen 325 1 tab PO Q4H PRN pain #10 tabs 02/27/24 mg tablet Allergies Allergy/AdvReac Type Severity Reaction Status Date / Time latex Allergy Intermediate itch Verified 07/12/23 18:16 insulin lispro Allergy Mild Rash Verified 07/12/23 18:16 codine AdvReac Intermediate Vomiting Uncoded 07/12/23 18:16 Opioid HPI Opioid Management Most Recent Opioid Data: Last Pain Scale 9 02/27/24 10:47 02/27/24 Last ED Pain Assessment 02/27/24 10:47 PFSH PFSH Social History Smoking status: Never smoker Little interest or pleasure in doing things: not at all Feeling down, depressed, or hopeless: not at all Exam Constitutional Vital Signs, click to edit/add: Last Vital Signs Temp 98.4 F 02/27/24 10:30 Pulse 83 02/27/24 10:30 Resp 18 02/27/24 10:30 BP 154/91 H 02/27/24 10:30 Pulse Ox 97 02/27/24 10:30 O2 Del Method Room Air 02/27/24 10:30 Course Vital Signs Vital signs: Vital Signs Temperature 98.4 F 02/27/24 10:30 Pulse Rate 83 02/27/24 10:30 Respiratory Rate 18 02/27/24 10:30 Blood Pressure 154/91 H 02/27/24 10:30 Pulse Oximetry 97 02/27/24 10:30 Oxygen Delivery Method Room Air 02/27/24 10:30 Temperature 98.4 F 02/27/24 10:30 Pulse Rate 83 02/27/24 10:30 Respiratory Rate 18 02/27/24 10:30 Blood Pressure 154/91 H 02/27/24 10:30 Pulse Oximetry 97 02/27/24 10:30 Oxygen Delivery Method Room Air 02/27/24 10:30 Medical Decision Making MDM Narrative Medical decision making narrative: Patient x-ray of her left tib-fib, ankle and x-ray and left foot x-ray shows no acute fracture dislocation or acute abnormality. Patient apparently has a soft tissue injury again. Patient was given a knee surgical wound boot, education was done at bedside. Patient has crutches at home. Patient was given a pain pill prior to discharge. Patient understands importance of alternating ice and anti-inflammatories along with prescription for pain medicine. Patient will call Dr. Bruce today. No questions at discharge. Patient understands importance of elevation and ice. Patient was placed in a left cam boot surgical boot Splint was assisted with . The patient was neurovascularly intact before and after the splint was placed. The affected bones/injured area had proper alignment in a splint. Education on splint care at home was given at bedside. Patient and family have no questions at discharge. Discharge Plan Discharge Chief Complaint: Extremity Injury, Lower Clinical Impression: Strain of left Achilles tendon, initial encounter, Pain of left calf Patient Disposition: Home, Self-Care Time of Disposition Decision: 12:00 Condition: Fair Prescriptions / Home Meds: New hydrocodone-acetaminophen 5-325 mg tablet 1 tab PO Q4H PRN (Reason: pain) Qty: 10 0RF No Action albuterol sulfate 90 mcg/actuation HFA aerosol inhaler 2 inh INHALATION PRN PRN (Reason: shortness of breath or wheezing) insulin lispro 100 unit/mL insulin pen SUBCUT Toujeo SoloStar U-300 Insulin 300 unit/mL (1.5 mL) insulin pen SUBCUT aspirin 81 mg capsule 81 mg PO DAILY atorvastatin 40 mg tablet 40 mg PO DAILY losartan 25 mg tablet 25 mg PO DAILY fluticasone propionate [Flovent HFA] 110 mcg/actuation HFA aerosol inhaler 3 puff INHALATION PRN PRN (Reason: bronchospasm) esomeprazole magnesium 40 mg capsule,delayed release(DR/EC) 40 mg PO Q24H glipizide 10 mg tablet 20 mg PO BID hydrochlorothiazide 12.5 mg capsule 12.5 mg PO DAILY lisinopril 5 mg tablet 5 mg PO DAILY metformin 1,000 mg tablet 1,000 mg PO BID carvedilol 6.25 mg tablet 6.25 mg PO Q12H nabumetone 750 mg tablet 750 mg PO BID PRN (Reason: pain) Qty: 20 0RF ibuprofen 600 mg tablet 600 mg PO TID PRN (Reason: pain) Qty: 30 0RF Print Language: Croatian Instructions: Achilles Tendon Rupture (ED), Achilles Tendinitis (ED), P.R.I.C.E. Treatment (ED), Leg Pain (ED) Additional Instructions: I am not diagnosing you with a Achilles tear at this time, but she may have injured her Achilles tendon again on the left. He may also have a left calf strain as well. Call Dr. Bruce today to follow-up. Ice 20 minutes on, 20 minutes off. Use surgical boot while ambulating for the next 1 to 2 weeks, take your surgical boot off for ice and shower. Follow-up with PCP as needed Referrals: Shayy Ly MD [Primary Care Provider] - 1 week Discharge Date/Time: 02/27/24 12:18
[2024-02-27] MEDS: HYDROCODONE/ACET 5-325 MG TABLET 1 TAB PO (12:11)
== END 2024-02-27 12:18 | disposition home or self-care (01) ==
PROVIDERS: Emergency Provider Emergency Medicine; PCP Family Medicine
DX: S86.012A Strain of left Achilles tendon, initial encounter (principal); M79.661 Pain in right lower leg; X58.XXXA Exposure to other specified factors, initial encounter
CPT/HCPCS: 73590; 73610; 73630; 99284

== ENCOUNTER 2024-03-21 08:37 | Outpatient (OUT) | payer MEDICARE, MEDICAID, SELFPAY ==
--- NOTE | 2024-03-21 08:39 | MR_ITS ---
[facility] [place] [id number] Patient Name: COLETTE DINH MRN: [id number] date: 1970 Sex: F Assigned Patient Location: MRI Current Patient Location: Accession/Order Number: [id number] Exam Date: 03/21/2024 09:55 Report Date: 03/24/2024 06:53 At the request of: JORDYN SANCHEZ Procedure: MR ankle RT wo con HISTORY: Pain in the posterior aspect of the right ankle in the region of the Achilles tendon since feeling a pop. Evaluate for Achilles tendon tear. MR ankle RT wo con: 03/21/2024 9:55 AM EST COMPARISON: Radiographs right ankle 02/19/2024. TECHNIQUE: Multiplanar, multisequence MRI images of the ankle were obtained without contrast. FINDINGS: Several images are slightly degraded by motion artifact. LIGAMENTS: The anterior talofibular ligament appears within normal limits. The calcaneofibular ligament, posterior talofibular ligament, and distal tibiofibular ligaments appear within normal limits. The deltoid ligament complex appears within normal limits. TENDONS: There is a high-grade longitudinal partial-thickness intrasubstance tear of the majority of the length of the Achilles tendon extending from the proximal Achilles tendon to the distal Achilles tendon approximately 1.6 cm from its insertion on the calcaneus. This tear spans 4.7 cm in craniocaudal dimension and involves approximately 80% of the AP thickness of the tendon. The other tendons of the ankle appear within normal limits. SINUS TARSI AND TARSAL TUNNEL: No space-occupying mass is seen in the tarsal tunnel or the sinus tarsi. BONES AND JOINTS: The bone marrow signal intensity is age appropriate. There are mild degenerative changes of the tibiotalar joint and there is mild subchondral cystic change within the posterocentral aspect of the tibial plafond. There are mild degenerative changes of the talonavicular joint. There are also mild degenerative changes along the anterior aspect of the distal tibiofibular syndesmosis with osteophyte formation in this region. PLANTAR FASCIA: There is a plantar calcaneal enthesophyte and there is evidence of the sequela of remote plantar fasciitis involving the proximal portion of the central band of the plantar fascia. SOFT TISSUES: There is soft tissue swelling along the posterior aspect of the ankle and along the medial and lateral aspect of the ankle. MR/MR ankle RT wo con IMPRESSION: 1. There is a high-grade longitudinal partial-thickness intrasubstance tear of the majority of the length of the Achilles tendon as described above. The other tendons of the ankle appear within normal limits. 2. There are degenerative changes involving multiple joints as described above. 3. No acute ligamentous injury. Electronically authenticated by: SHAWN WILLIAMSON Date: 03/24/2024 06:53
--- OUTSIDE RECORDS SUMMARY | 2024-03-21 08:55 | XMS_ITS | CCD ---
Author Organization [facility] CliniSynv Care Team Providers Care Process Line Operator Name Role Phone PHYSICIAN, DEFAULT Unavailable Unavailable [...] Provider MD Shayy Dela Cruz Attending Provider [phone] MD Shayy Dela Cruz Primary Care Provider MD Shayy Dela Cruz Attending Provider Sam, SCIENCE INTERPRETER Cathie C Attending Provider Scally, Cathie C Admitting Unavailable Sam, Cathie C Attending Unavailable Shayy Dela Cruz Admitting Unavailable Shayy Dela Cruz Primary Care Unavailable Shayy Dela Cruz Attending Unavailable Brittani Collier Admitting Unavailable Brittani Collier Attending Unavailable Shayy Dela Cruz Primary Care Unavailable Allergies Allergy Classification Reported Allergen(s) Allergy Type Date of Onset Reaction(s) Facility (1 source) codeine Drug Allergy 9 [facility] Repository (17 sources) Latex; Translations: [LATEX] Drug allergy (disorder) 9 sores on skin [facility] Repository (20 sources) Codeine; Translations: [CODEINE] Drug Allergy 0 nausea [facility] Repository (18 sources) Latex Drug allergy sores on skin [facility] Other (1 source) Codeine Drug Allergy [facility] Repository (1 source) atorvastatin; Translations: [ATORVASTATIN] Drug Allergy 3 [facility] Repository (6 sources) cat dander Allergy to substance 4 Sneezing, Itching [facility] (6 sources) dog dander Allergy to substance 4 Sneezing, Itching [facility] (6 sources) ozempic Propensity to adverse reactions 4 Vomiting [facility] (1 source) Codeine Drug Allergy 4 [facility] Repository (1 source) Latex Drug allergy (disorder) 4 [facility] Repository Medications Current Medications Medication Drug Class(es) Dates Sig (Normalized) Sig (Original) [id number] 200 actuat albuterol 0.09 mg/actuat metered dose [...] May, Active Blood-Glucose Meter,Continuo us (Dexcom G[employer]) misc (4 sources) Start: 12-13-2023 Blood-Glucose Meter,Continuous (Dexcom G[employer] T[employer]) misc Active 0 .Route December 13, 2023 12:00am As directed Start: 12-13-2023 Blood-Glucose Meter,Continuous (Dexcom G[employer] Tester) misc Active 0 .ROUTE December 13, 2023 [...] Orally Once a day Active Dexcom G[employer] - (4 sources) Start: 06-03-19 24 Dexcom G7 [employer] Tester - as directed as directed 4 x [...] De Jesus Reyes take 1 capsule by [facility] once daily Esomeprazole Magnesium 40 mg TAKE [...] Once a day Active [employer] Amrik [facility] [place] - (3 sources) Start: 06-06-2023 FreeStyle Libr e 3 [place] - as directed invitro 4 times daily [...] Jun, Not-Taking/PRN Blood-Glucose Meter,Continuous (Freestyle [employer]rik [employer] [place]) misc (11 sources) Start: 07-28-2023 End: 12-13-2023 Blood-Glucose Meter,Continuous (Freestyle [employer]rik [employer] [place]) misc Discontinued EACH .ROUTE .MEDSUPPLY July 28, 2023 12:00am December 13, 2023 1:09pm As directed Start: 07-28-2023 Blood-Glucose Meter,Continuous (Freestyle [employer]rik 3 [place]) misc Active EACH .ROUTE .MEDSUPPLY July 28, [...] a day; Note: Source Status: Not-Taking\PRN; Provider: [employer]Sm [employer] ( ) take 1 tablet by [...] angina pectoris; Translations: [Atherosclerotic heart disease of [place] coronary artery without angina pectoris] Onset: 03-24-2022 [...] Onset: 11-09-2021 Chronic Other aftercare (17 sources) nursing home (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 of insulin; Translations: [Long-term (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 of insulin] Onset: 04-08-2022 Episodic Other aftercare (20 sources) Long-term current use of insulin; Translations: [nursing home (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 of insulin] 07-28-2023 Episodic Other [...] Onset: 04-08-2022 Episodic Other aftercare (1 source) nursing home (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; 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] Onset: 04-08-2022 Episodic Other aftercare (1 source) nursing home (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 of oral hypoglycemic drugs; Translations: [CARE HOME USE ORAL HYPOGLYCEMIC DX] Onset: 04-08-2022 Episodic Other aftercare (1 source) Other assisted (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 therapy; Translations: [OTH MACHINE REPAIRER MAINTENANCE CURRENT DRUG THERAPY] Onset: 11-09-2021 Episodic Other [...] on 02-23-2024 Creatinine (U) [Mass/Vol] 28.00 mg/dL [facility] Comment on above: No reference range e stablished MicroAlb Creat Ratio,Uon Creatinine, Urine (Random) 28.00 mg/dL Normal [facility] Comment on above: Result Comment: No r eference range established Performed By: #### U RMACRERAT #### [address] Microalbumin/Creati nine Ratio Not performed Normal 0.0-30.0 [facility] Comment on above: Result Comment: PERF ORMED BY: [place] [address] PATHOLOGIST EXPENSE ANALYST RUBINA RICCI M.D. Performed By: #### U RMACRERAT #### [address] Microalbumin [Mass/volume] i n UrineOrdered By: Cathie Vargas on 02-23-2024 Albumin DL <= 20 mg/L (U) [Mass/Vol] mg/dL Normal 0.0-1.8 [facility] Comment on above: Performed By: #### U RMACRERAT #### [facility] [address] [place] [address] Urine microalbumin/creatinin e mass ratioOrdered By: Cathie Vargas on 02-23-2024 Albumin/Creatinine DL <= 20 mg/L (U) [Mass ratio] TNP [facility] Comment on above: Test not performed HbA1c HPLC (Bld) [Mass fract ion]on 12-13-2023 HbA1c (Bld) [Mass fraction] 9.9 % [facility] No Panel Informationon 12-12 Bedside Glucose 118 [facility] No Panel Informationon 09-28 Bedside Glucose 278 [facility] HbA1c HPLC (Bld) [Mass fract ion]on 07-28-2023 HbA1c (Bld) [Mass fraction] 10.3 % [facility] No Panel Informationon 07-27 Bedside Glucose 126 [facility] Basophils Auto (Bld) [#/Vol] on 07-12-2023 Basophils (Bld) [#/Vol] 0.0 10 3/uL 0.0-0.1 [facility] Basophils/100 WBC Auto (Bld) on 07-12-2023 Basophils/100 WBC (Bld) 0.5 % 0.2-2.0 [facility] Eosinophils/100 WBC Auto (Bl d)on 07-12-2023 Eosinophils/100 WBC (Bld) 1.5 % 0.9-7.0 [facility] Erythrocyte distribution wid th Auto (RBC) [Ratio]on 07-12-2023 Erythrocyte distribution width (RBC) [Ratio] 12.7 % 11.0-15.0 [facility] Estimated glomerular filtrat ion rate (GFR) non- Americanon 07-12-2023 GFR/1.73 sq M.predicted among non-blacks MDRD (S/P/Bld) [Vol rate/Area] mL/min/{1.73_m2} >=60 [facility] Hematocrit Auto (Bld) [Volum e fraction]on 07-12-2023 Hematocrit (Bld) [Volume fraction] 42.8 % 36.0-48.0 [facility] Hemoglobin [Mass/volume] in Bloodon 07-12-2023 Hemoglobin (Bld) [Mass/Vol] 14.3 g/dL 12.0-16.0 [facility] Laboratory - Chemistry and C hemistry - challengeon 07-12-2023 Calcium [Mass/Vol] 9.1 mg/dL 8.5-10.1 [facility] Chloride [Moles/Vol] 100 mmol/L 98-107 [facility] CO2 [Moles/Vol] 26.1 mmol/L 21.0-32.0 [facility] Creatinine [Mass/Vol] 0.78 mg/dL 0.55-1.02 [facility] GFR/1.73 sq M.predicted MDRD (S/P/Bld) [Vol rate/Area] mL/min/{1.73_m2} >=60 [facility] Glucose [Mass/Vol] 215 mg/dL 74-106 [facility] Potassium [Moles/Vol] 4.0 mmol/L 3.5-5.1 [facility] Sodium [Moles/Vol] 137 mmol/L 136-145 [facility] Urea nitrogen [Mass/Vol] 12.0 mg/dL 7.0-18.0 [facility] Urea nitrogen/Creatinine [Mass ratio] 15.4 mg/mg [facility] Laboratory - Hematology and Cell countson 07-12-2023 Immature granulocytes/100 WBC (Bld) 0.1 % 0.0-0.5 [facility] Leukocytes [#/volume] correc alma delia for nucleated erythrocytes in Blood by Automated counon 07-12-2023 WBC corrected for nucl RBC Auto (Bld) [#/Vol] 7.8 10 3/uL 4.0-11.0 [facility] Lymphocytes Auto (Bld) [#/Vo l]on 07-12-2023 Lymphocytes (Bld) [#/Vol] 2.7 10 3/uL 1.2-3.8 [facility] Lymphocytes/100 WBC Auto (Bl d)on 07-12-2023 Lymphocytes/100 WBC (Bld) 34.1 % 20.5-60.0 [facility] MCH Auto (RBC) [Entitic mass ]on 07-12-2023 MCH (RBC) [Entitic mass] 29.2 pg 26.7-34.0 [facility] MCHC Auto (RBC) [Mass/Vol]on 07-12-2023 MCHC (RBC) [Mass/Vol] 33.4 g/dL 29.9-35.2 [facility] MCV Auto (RBC) [Entitic vol] on 07-12-2023 MCV (RBC) [Entitic vol] 87.5 fL 81.0-99.0 [facility] Monocytes Auto (Bld) [#/Vol] on 07-12-2023 Monocytes (Bld) [#/Vol] 0.5 10 3/uL 0.3-0.8 [facility] Monocytes/100 WBC Auto (Bld) on 07-12-2023 Monocytes/100 WBC (Bld) 6.4 % 1.7-12.0 [facility] Neutrophils Auto (Bld) [#/Vo l]on 07-12-2023 Neutrophils (Bld) [#/Vol] 4.5 10 3/uL 1.4-6.5 [facility] Neutrophils/100 WBC Auto (Bl d)on 07-12-2023 Neutrophils/100 WBC (Bld) 57.4 % 43.0-75.0 [facility] No Panel Informationon 07-11 Eosinophils # (Auto) 0.1 10 3/uL 0.0-0.7 [facility] Immature Granulocyte # (Auto) 0.01 10 3/uL 0.00-0.03 [facility] Platelet mean volume Auto (B ld) [Entitic vol]on 07-12-2023 Platelet mean volume (Bld) [Entitic vol] 10.9 fL 9.5-13.5 [facility] Platelets Auto (Bld) [#/Vol] on 07-12-2023 Platelets (Bld) [#/Vol] 259 10 3/uL 150-450 [facility] RBC Auto (Bld) [#/Vol]on RBC (Bld) [#/Vol] 4.89 10 6/uL 4.20-5.40 [facility] Serum or plasma anion gap de terminationon 07-12-2023 Anion gap [Moles/Vol] 14.9 mmol/L [facility] Glucose - FINGER STICKon Glucose [Mass/Vol] 360 mg/dL [facility] Other Office Visiton 12-13-2022 Follow-up visit [id number] Arlette Ramos 1970 F Date Provider Department Center 12/13/2022 [id number]-MARQUES MOROCHO [facility] No family history on file Level of Service:10146 [place] OFFICE/OUTPATIENT ESTABLISHED LOW MDM 20-29 MIN Reason for Visit and Comments: Follow-up [504539] - 4 mo follow up Normal [facility] CBC AUTO DIFFon 08-27-2022 BASO # 0.0 103/ul Normal 0.0-0.1 [facility] Comment on above: Performed By: #### C BC #### [facility] [address] [place] [address] Dr. Sarah Church Basophils/100 WBC (Bld) 0.5 % Normal 0.2-2.0 [facility] Comment on above: Performed By: #### C BC #### [facility] [address] [place] [address] Dr. Sarah Church EO # 0.2 103/ul Normal 0.0-0.7 [facility] Comment on above: Performed By: #### C BC #### [facility] [address] [place] [address] Dr. Sarah Church Eosinophils/100 WBC (Bld) 2.2 % Normal 0.9-7.0 [facility] Comment on above: Performed By: #### C BC #### [facility] [address] [place] [address] Dr. Sarah Church Erythrocyte distribution width (RBC) [Ratio] 12.5 % Normal 11.0-15.0 [facility] Comment on above: Performed By: #### C BC #### [facility] [address] [place] [address] Dr. Sarah Church Hematocrit (Bld) [Volume fraction] 44.1 % Normal 36.0-48.0 [facility] Comment on above: Performed By: #### C BC #### [facility] [address] [place] [address] Dr. Sarah Church Hemoglobin (Bld) [Mass/Vol] 15.1 g/dL Normal 12.0-16.0 [facility] Comment on above: Performed By: #### C BC #### [facility] [address] [place] [address] Dr. Sarah Church IG # 0.02 10e3/ul Normal 0.00-0.03 [facility] Comment on above: Performed By: #### C BC #### [facility] [address] [place] [address] Dr. Sarah Church IG % 0.2 % Normal 0.0-0.5 [facility] Comment on above: Performed By: #### C BC #### [facility] [address] [place] [address] Dr. Sarah Church LYMPH # 2.9 103/ul Normal 1.2-3.8 [facility] Comment on above: Performed By: #### C BC #### [facility] [address] [place] [address] Dr. Sarah Church Lymphocytes/100 WBC (Bld) 33.4 % Normal 20.5-60.0 [facility] Comment on above: Performed By: #### C BC #### [facility] [address] [place] [address] Dr. Sarah Church MANUAL DIFF REQ NO Normal [facility] Comment on above: Performed By: #### C BC #### [facility] [address] [place] [address] Dr. Sarah Church MCH (RBC) [Entitic mass] 29.1 pg Normal 26.7-34.0 [facility] Comment on above: Performed By: #### C BC #### [facility] [address] [place] [address] Dr. Sarah Church MCHC (RBC) [Mass/Vol] 34.2 g/dL Normal 29.9-35.2 [facility] Comment on above: Performed By: #### C BC #### [facility] [address] [place] [address] Dr. Sarah Church MCV (RBC) [Entitic vol] 85.0 fL Normal 81.0-99.0 [facility] Comment on above: Performed By: #### C BC #### [facility] [address] [place] [address] Dr. Sarah Church MONO # 0.6 103/ul Normal 0.3-0.8 [facility] Comment on above: Performed By: #### C BC #### [facility] [address] [place] [address] Dr. Sarah Church Monocytes/100 WBC (Bld) 6.8 % Normal 1.7-12.0 [facility] Comment on above: Performed By: #### C BC #### [facility] [address] [place] [address] Dr. Sarah Church NEUT # 4.9 103/ul Normal 1.4-6.5 [facility] Comment on above: Performed By: #### C BC #### [facility] [address] [place] [address] Dr. Sarah Church Neutrophils/100 WBC (Bld) 56.9 % Normal 43.0-75.0 [facility] Comment on above: Performed By: #### C BC #### [facility] [address] [place] [address] Dr. Sarah Church Platelet mean volume (Bld) [Entitic vol] 10.8 fL Normal 9.5-13.5 [facility] Comment on above: Performed By: #### C BC #### [facility] [address] [place] [address] Dr. Sarah Church PLT 276 103/ul Normal 150-450 [facility] Comment on above: Performed By: #### C BC #### [facility] [address] [place] [address] Dr. Sarah Church RBC 5.19 106/ul Normal 4.20-5.40 [facility] Comment on above: Performed By: #### C BC #### [facility] [address] [place] [address] Dr. Sarah Church WBC 8.6 103/ul Normal 4.0-11.0 [facility] Comment on above: Performed By: #### C BC #### [facility] [address] [place] [address] Dr. Sarah Church LIPID PROFILEon 08-27-2022 CHOL-HDL RATIO NORM SEE BELOW Normal [facility] Comment on above: Result Comment: 3.3 - 4.4 LOW RISK 4.4 - 7.1 AVERAGE RISK 7.1 - 11.0 MODERATE RISK >11.0 HIGH RISK Performed By: #### L IPID, CMP #### [facility] [address] [place] [address] Dr. Sarah Church Cholesterol [Mass/Vol] 110 mg/dL Normal <=200 [facility] Comment on above: Performed By: #### L IPID, CMP #### [facility] [address] [address] [address] Sarah Church Cholesterol in HDL [Mass/Vol] 33 mg/dL Critically low 40-60 [facility] Comment on above: Performed By: #### L IPID, CMP #### [facility] [address] [address] [address] Sarah Church Cholesterol in LDL [Mass/Vol] 58.0 mg/dL Normal [facility] Comment on above: Performed By: #### L IPID, CMP #### [facility] [address] [address] [address] Sarah Church Cholesterol.total/C holesterol in HDL [Mass ratio] 3.3 {ratio} Normal [facility] Comment on above: Performed By: #### L IPID, CMP #### [facility] [address] [address] [address] Sarah Church HDL NORMAL > or = 60 mg/dl - LO W CARDIOVASCULAR RISK <40 mg/dl - HIGH CARDIOVASCULAR RISK Normal [facility] Comment on above: Performed By: #### L IPID, CMP #### [facility] [address] [address] [address] Sarah Church LDL CALC NORMAL SEE BELOW Normal [facility] Comment on above: Result Comment: <100 mg/dl OPTIMAL 100 - 129 mg/dl NEAR OR ABOVE OPTIMAL 130 - 159 mg/dl BORDERLINE HIGH 160 - 189 mg/dl HIGH >190 mg/dl VERY HIGH Performed By: #### L IPID, CMP #### [facility] [address] [address] [address] Sarah Church Triglyceride [Mass/Vol] 95 mg/dL Normal <=150 [facility] Comment on above: Performed By: #### L IPID, CMP #### [facility] [address] [address] [address] Sarah Church VLDL CALC 19.0 mg/dL Normal [facility] Comment on above: Performed By: #### L IPID, CMP #### [facility] [address] [address] [address] Sarah Church PROF 14(COMP METB)on 023 Albumin [Mass/Vol] 3.3 g/dL Critically low 3.4-5.0 [facility] Comment on above: Performed By: #### L IPID, CMP #### [facility] [address] [place] [address] Dr. Sarah Church Albumin/Globulin [Mass ratio] 0.8 {ratio} Normal [facility] Comment on above: Performed By: #### L IPID, CMP #### [facility] [address] [place] [address] Dr. Sarah Church ALP [Catalytic activity/Vol] 100 U/L Normal 46-116 [facility] Comment on above: Performed By: #### L IPID, CMP #### [facility] [address] [place] [address] Dr. Sarah Church ALT [Catalytic activity/Vol] 74 U/L Critically high 14-59 [facility] Comment on above: Performed By: #### L IPID, CMP #### [facility] [address] [place] [address] Dr. Sarah Church Anion gap [Moles/Vol] 13.2 mmol/L Normal [facility] Comment on above: Performed By: #### L IPID, CMP #### [facility] [address] [place] [address] Dr. Sarah Church AST [Catalytic activity/Vol] 42 U/L Critically high 15-37 [facility] Comment on above: Performed By: #### L IPID, CMP #### [facility] [address] [place] [address] Dr. Sarah Church Bilirubin [Mass/Vol] 0.4 mg/dL Normal 0.2-1.0 [facility] Comment on above: Performed By: #### L IPID, CMP #### [facility] [address] [place] [address] Dr. Sarah Church Calcium [Mass/Vol] 9.2 mg/dL Normal 8.5-10.1 [facility] Comment on above: Performed By: #### L IPID, CMP #### [facility] [address] [place] [address] Dr. Sarah Church Chloride [Moles/Vol] 99 mmol/L Normal 98-107 [facility] Comment on above: Performed By: #### L IPID, CMP #### [facility] [address] [place] [address] Dr. Sarah Church CO2 [Moles/Vol] 30.4 mmol/L Normal 21.0-32.0 [facility] Comment on above: Performed By: #### L IPID, CMP #### [facility] [address] [place] [address] Dr. Sarah Church Creatinine [Mass/Vol] 0.78 mg/dL Normal 0.55-1.02 [facility] Comment on above: Performed By: #### L IPID, CMP #### [facility] [address] [place] [address] Dr. Sarah Church EGFR-AF CANADIAN >60 Normal >=60 [facility] Comment on above: Performed By: #### L IPID, CMP #### [facility] [address] [place] [address] Dr. Sarah Church EGFR-NON AF CANADIAN >60 Normal >=60 [facility] Comment on above: Performed By: #### L IPID, CMP #### [facility] [address] [place] [address] Dr. Sarah Church Globulin (S) [Mass/Vol] 4.0 g/dL Normal [facility] Comment on above: Performed By: #### L IPID, CMP #### [facility] [address] [place] [address] Dr. Sarah Cuhrch Glucose [Mass/Vol] 255 mg/dL Critically high 74-106 [facility] Comment on above: Performed By: #### L IPID, CMP #### [facility] [address] [place] [address] Dr. Sarah Church Potassium [Moles/Vol] 3.6 mmol/L Normal 3.5-5.1 [facility] Comment on above: Performed By: #### L IPID, CMP #### [facility] [address] [address] [address] Sarah Church Protein [Mass/Vol] 7.3 g/dL Normal 6.4-8.2 [facility] Comment on above: Performed By: #### L IPID, CMP #### [facility] [address] [address] [address] Sarah Church Sodium [Moles/Vol] 139 mmol/L Normal 136-145 [facility] Comment on above: Performed By: #### L IPID, CMP #### [facility] [address] [place] [address] Dr. Sarah Church Urea nitrogen [Mass/Vol] 8.0 mg/dL Normal 7.0-18.0 [facility] Comment on above: Performed By: #### L IPID, CMP #### [facility] [address] [place] [address] Dr. Sarah Church Urea nitrogen/Creatinine [Mass ratio] 10.3 mg/mg Normal [facility] Comment on above: Performed By: #### L IPID, CMP #### [facility] [address] [place] [address] Dr. Sarah Church 37on 08-10-2022 37 -Start hydrochlorothiazide 12.5 mg in the morning -Check labs 1 week after starting new medication -Take blood pressure to appointment with Dr. Dela Cruz for correlation [facility] Office Visiton 08-10-2022 Follow-up visit [id number] Arlette Ramos 1970 F Date Provider Department Center 08/10/2022 [id number] BENITES [facility] No family history on file Level of Service:91931 [place] OFFICE/OUTPATIENT ESTABLISHED MOD MDM 30-39 MIN Reason for Visit and Comments: Coronary Artery Disease [187] Hypertension [991361] Normal [facility] MG MAMM SCREEN 3D ROB CADon 07-20-2022 MG MAMM SCREEN 3D ROB CAD Patient: ZOILA RAMOS Exam Date: 07/20/2022 : 1970 Gender:F Ordering : DR SHAYY DELA CRUZ M.D. Admission #: [id number] Family : Order #: [id number] CLICK HERE TO VIEW EXAM RADIOLOGY REPORT PROCEDURE: MAMMOGRAM SCREENING 3D BILATERAL CAD COMPARISON: MAMMO ROB SCREEN W CAD DIG, 05/16/2012. INDICATIONS: Screening mammography Calculator Name NCI Breast Cancer Risk Assessment Tool 5 Year Breast Cancer Risk 1.20% Lifetime Breast Cancer Risk 10.80% Personal Breast Cancer No Personal Ovarian Cancer No Treatments None Family Cancers None LOCATION: [facility] BREAST COMPOSITION: Almost entirely fatty. FINDINGS: DIAGNOSTIC [...] M.D. on 07/21/2022 at 08:24 Normal [facility] PROF CHEM 8 (BAS METB)on Anion gap [Moles/Vol] 14.5 mmol/L Normal [facility] Comment on above: Performed By: #### B MP #### [facility] [address] [address] [address] Sarah Church Calcium [Mass/Vol] 9.8 mg/dL Normal 8.5-10.1 [facility] Comment on above: Performed By: #### B MP #### [facility] [address] [address] [address] Sarah Church Chloride [Moles/Vol] 99 mmol/L Normal 98-107 [facility] [facility] Comment on above: Performed By: #### B MP #### [facility] [address] [address] [address] Sarah Church CO2 [Moles/Vol] 27.2 mmol/L Normal 21.0-32.0 [facility] Comment on above: Performed By: #### B MP #### [facility] [address] [place] [address] Dr. Sarah Church Creatinine [Mass/Vol] 0.80 mg/dL Normal 0.55-1.02 [facility] Comment on above: Performed By: #### B MP #### [facility] [address] [address] [address] Sarah Church EGFR-AF CANADIAN >60 Normal >=60 [facility] Comment on above: Performed By: #### B MP #### [facility] [address] [place] [address] Dr. Sarah Church EGFR-NON AF CANADIAN >60 Normal >=60 [facility] Comment on above: Performed By: #### B MP #### [facility] [address] [place] [address] Dr. Sarah Church Glucose [Mass/Vol] 458 mg/dL Critically high 74-106 [facility] Comment on above: Performed By: #### B MP #### [facility] [address] [address] [address] Sarah Church Potassium [Moles/Vol] 4.7 mmol/L Normal 3.5-5.1 [facility] Comment on above: Performed By: #### B MP #### [facility] [address] [place] [address] Dr. Sarah Church Sodium [Moles/Vol] 136 mmol/L Normal 136-145 [facility] Comment on above: Performed By: #### B MP #### [facility] [address] [place] [address] Dr. Sarah Church Urea nitrogen [Mass/Vol] 15.0 mg/dL Normal 7.0-18.0 [facility] Comment on above: Performed By: #### B MP #### [facility] [address] [place] [address] Dr. Sarah Church Urea nitrogen/Creatinine [Mass ratio] 18.8 mg/mg Normal [facility] Comment on above: Performed By: #### B MP #### [facility] [address] [place] [address] Dr. Sarah Church Orders Onlyon 06-04-2022 Orders Only [id number] RichardArlette crook erasmo Sidhu 1970 Provider Department Center 06/04/2022 Shila-JESSICA STONE MADELYN Robert [facility] No family history on file Normal [facility] 36on 06-01-2022 36 Patient called and [...] her high cholesterol . HELP!! lol Normal [facility] Orders Onlyon 06-01-2022 Orders Only [id number] RichardArlette crook erasmo Sidhu 1970 Provider Department Center 06/01/[address] No family history on file [facility] 36on 05-28-2022 36 Spoke with flaca she states to call in script of losartan 25 mg QD Normal [facility] GLYCOHEMOGLOBIN A1Con 2022 ADA RECOMMENDATION SEE BELOW Normal [facility] Comment on above: Result Comment: ADA RECOMMENDED LIMIT 4.0 - 6.0 ADA THERAPEUTIC TARGET < 7.0 ACTION SUGGESTED > 7.0 Performed By: #### A 1C ####[facility] [id number] [id number]. Sarah Church Glucose [Mass/Vol] 266 mg/dL Normal [facility] Comment on above: Performed By: #### A 1C ####[facility] [address] [place], [place] [address]In. Sarah Church HbA1c (Bld) [Mass fraction] 10.9 % Critically high 4.5-6.2 [facility] Comment on above: Performed By: #### A 1C ####[facility] [address] [id number]. Sarah Church Office Visiton 05-19-2022 Follow-up visit [id number] RichardArlette Sidhu 1970 F Date Provider Department Center 05/19/2022 MALCOLM SCHAFER CARD [facility] No family history on file Level of Service:12850 [place] OFFICE/OUTPATIENT ESTABLISHED MOD MDM 30-39 MIN Reason for Visit and Comments: Coronary Artery Disease [187] Hyperlipidemia [182] Normal [facility] XR HIP RT 2 3V W [...] JAVAD ROB Date: 2022-04-06 21:15 Normal [facility] CBC AUTO DIFFon 11-05-2021 BASO # 0.1 103/ul Normal 0.0-0.1 [facility] Comment on above: Performed By: #### C BC #### [facility] [address] [place] [address] Dr. Sarah Church Basophils/100 WBC (Bld) 0.4 % Normal 0.2-2.0 [facility] Comment on above: Performed By: #### C BC #### [facility] [address] [place] [address] Dr. Sarah Church EO # 0.2 103/ul Normal 0.0-0.7 [facility] Comment on above: Performed By: #### C BC #### [facility] [address] [place] [address] Dr. Sarah Church Eosinophils/100 WBC (Bld) 1.3 % Normal 0.9-7.0 [facility] Comment on above: Performed By: #### C BC #### [facility] [address] [place] [address] Dr. Sarah Church Erythrocyte distribution width (RBC) [Ratio] 12.3 % Normal 11.0-15.0 [facility] Comment on above: Performed By: #### C BC #### [facility] [address] [place] [address] Dr. Sarah Church Hematocrit (Bld) [Volume fraction] 43.1 % Normal 36.0-48.0 [facility] Comment on above: Performed By: #### C BC #### [facility] [address] [place] [address] Dr. Sarah Church Hemoglobin (Bld) [Mass/Vol] 14.6 g/dL Normal 12.0-16.0 [facility] Comment on above: Performed By: #### C BC #### [facility] [address] [place] [address] Dr. Sarah Church IG # 0.04 10e3/ul Critically high 0.00-0.03 [facility] Comment on above: Performed By: #### C BC #### [facility] [address] [place] [address] Dr. Sarah Church IG % 0.3 % Normal 0.0-0.5 [facility] Comment on above: Performed By: #### C BC #### [facility] [address] [place] [address] Dr. Sarah Church LYMPH # 1.6 103/ul Normal 1.2-3.8 [facility] Comment on above: Performed By: #### C BC #### [facility] [address] [place] [address] Dr. Sarah Church Lymphocytes/100 WBC (Bld) 12.5 % Critically low 20.5-60.0 [facility] Comment on above: Performed By: #### C BC #### [facility] [address] [place] [address] Dr. Sarah Church MANUAL DIFF REQ NO Normal [facility] Comment on above: Performed By: #### C BC #### [facility] [address] [place] [address] Dr. Sarah Church MCH (RBC) [Entitic mass] 29.4 pg Normal 26.7-34.0 [facility] Comment on above: Performed By: #### C BC #### [facility] [address] [place] [address] Dr. Sarah Church MCHC (RBC) [Mass/Vol] 33.9 g/dL Normal 29.9-35.2 [facility] Comment on above: Performed By: #### C BC #### [facility] [address] [place] [address] Dr. Sarah Church MCV (RBC) [Entitic vol] 86.7 fL Normal 81.0-99.0 [facility] Comment on above: Performed By: #### C BC #### [facility] [address] [place] [address] Dr. Sarah Church MONO # 1.0 103/ul Critically high 0.3-0.8 [facility] Comment on above: Performed By: #### C BC #### [facility] [address] [place] [address] Dr. Sarah Church Monocytes/100 WBC (Bld) 7.7 % Normal 1.7-12.0 [facility] Comment on above: Performed By: #### C BC #### [facility] [address] [place] [address] Dr. Sarah Church NEUT # 9.6 103/ul Critically high 1.4-6.5 [facility] Comment on above: Performed By: #### C BC #### [facility] [address] [place] [address] Dr. Sarah Church Neutrophils/100 WBC (Bld) 77.8 % Critically high 43.0-75.0 [facility] Comment on above: Performed By: #### C BC #### [facility] [address] [place] [address] Dr. Sarah Church Platelet mean volume (Bld) [Entitic vol] 11.0 fL Normal 9.5-13.5 [facility] Comment on above: Performed By: #### C BC #### [facility] [address] [place] [address] Dr. Sarah Church PLT 220 103/ul Normal 150-450 [facility] Comment on above: Performed By: #### C BC #### [facility] [address] [place] [address] Dr. Sarah Church RBC 4.97 106/ul Normal 4.20-5.40 [facility] Comment on above: Performed By: #### C BC #### [facility] [address] [address] [address] Sarah Church WBC 12.4 103/ul Critically high 4.0-11.0 [facility] Comment on above: Performed By: #### C BC #### [facility] [address] [place] [address] Dr. Sarah Church GROUP A STREP CULTUREon S. pyogenes Ag Ql (Unsp spec) Culture Observations: NEGATIVE FOR GROUP A STREPTOCOCCUS. Normal [facility] Comment on above: Performed By: #### G RASTCX, SSCRN ####[facility] [address] [address]. Sarah Chucrh POINT OF CARE GLUCOSEon Glucose [Mass/Vol] 214 mg/dL Critically high 74-106 [facility] Comment on above: Performed By: #### P OCGLUC #### [facility] [address] [place] [address] Dr. Sarah Church STREPT SCREENon 11-05-2021 STREP SCREEN A Negative Normal NEGATIVE [facility] Comment on above: Performed By: #### G RASTCX, SSCRN ####[facility] [address] [address]Dr. Sarah Church CBC AUTO DIFFon 10-16-2021 BASO # 0.1 103/ul Normal 0.0-0.1 [facility] Comment on above: Performed By: #### C BC #### [facility] [address] [place] [address] Dr. Sarah Church Basophils/100 WBC (Bld) 0.8 % Normal 0.2-2.0 [facility] Comment on above: Performed By: #### C BC #### [facility] [address] [place] [address] Dr. Sarah Church EO # 0.3 103/ul Normal 0.0-0.7 [facility] Comment on above: Performed By: #### C BC #### [facility] [address] [place] [address] Dr. Sarah Church Eosinophils/100 WBC (Bld) 3.4 % Normal 0.9-7.0 [facility] Comment on above: Performed By: #### C BC #### [facility] [address] [place] [address] Dr. Sarah Church Erythrocyte distribution width (RBC) [Ratio] 12.6 % Normal 11.0-15.0 [facility] Comment on above: Performed By: #### C BC #### [facility] [address] [place] [address] Dr. Sarah Church Hematocrit (Bld) [Volume fraction] 45.4 % Normal 36.0-48.0 [facility] Comment on above: Performed By: #### C BC #### [facility] [address] [place] [address] Dr. Sarah Church Hemoglobin (Bld) [Mass/Vol] 15.0 g/dL Normal 12.0-16.0 [facility] Comment on above: Performed By: #### C BC #### [facility] [address] [place] [address] Dr. Sarah Church IG # 0.02 10e3/ul Normal 0.00-0.03 [facility] Comment on above: Performed By: #### C BC #### [facility] [address] [place] [address] Dr. Sarah Church IG % 0.2 % Normal 0.0-0.5 [facility] Comment on above: Performed By: #### C BC #### [facility] [address] [place] [address] Dr. Sarah Church LYMPH # 2.7 103/ul Normal 1.2-3.8 [facility] Comment on above: Performed By: #### C BC #### [facility] [address] [place] [address] Dr. Sarah Church Lymphocytes/100 WBC (Bld) 31.0 % Normal 20.5-60.0 [facility] Comment on above: Performed By: #### C BC #### [facility] [address] [place] [address] Dr. Sarah Church MANUAL DIFF REQ NO Normal [facility] Comment on above: Performed By: #### C BC #### [facility] [address] [place] [address] Dr. Sarah Church MCH (RBC) [Entitic mass] 29.3 pg Normal 26.7-34.0 [facility] Comment on above: Performed By: #### C BC #### [facility] [address] [place] [address] Dr. Sarah Church MCHC (RBC) [Mass/Vol] 33.0 g/dL Normal 29.9-35.2 [facility] Comment on above: Performed By: #### C BC #### [facility] [address] [place] [address] Dr. Sarah Church MCV (RBC) [Entitic vol] 88.7 fL Normal 81.0-99.0 [facility] Comment on above: Performed By: #### C BC #### [facility] [address] [place] [address] Dr. Sarah Church MONO # 0.6 103/ul Normal 0.3-0.8 [facility] Comment on above: Performed By: #### C BC #### [facility] [address] [place] [address] Dr. Sarah Church Monocytes/100 WBC (Bld) 6.5 % Normal 1.7-12.0 [facility] Comment on above: Performed By: #### C BC #### [facility] [address] [place] [address] Dr. Sarah Church NEUT # 5.0 103/ul Normal 1.4-6.5 [facility] Comment on above: Performed By: #### C BC #### [facility] [address] [place] [address] Dr. Sarah Church Neutrophils/100 WBC (Bld) 58.1 % Normal 43.0-75.0 [facility] Comment on above: Performed By: #### C BC #### [facility] [address] [place] [address] Dr. Sarah Church Platelet mean volume (Bld) [Entitic vol] 11.0 fL Normal 9.5-13.5 [facility] Comment on above: Performed By: #### C BC #### [facility] [address] [address] [address] Sarah Church PLT 226 103/ul Normal 150-450 [facility] Comment on above: Performed By: #### C BC #### [facility] [address] [address] [address] Sarah Church RBC 5.12 106/ul Normal 4.20-5.40 [facility] Comment on above: Performed By: #### C BC #### [facility] [address] [address] [address] Sarah Church WBC 8.6 103/ul Normal 4.0-11.0 [facility] Comment on above: Performed By: #### C BC #### [facility] [address] [address] [address] Sarah Church GLYCOHEMOGLOBIN A1Con 2021 ADA RECOMMENDATION SEE BELOW Normal [facility] Comment on above: Result Comment: ADA RECOMMENDED LIMIT 4.0 - 6.0 ADA THERAPEUTIC TARGET < 7.0 ACTION SUGGESTED > 7.0 Performed By: #### A 1C ####[facility] [address] [address]Dr. Sarah Church Glucose [Mass/Vol] 275 mg/dL Normal [facility] Comment on above: Performed By: #### A 1C ####[facility] [address] [address]Dr. Sarah Church HbA1c (Bld) [Mass fraction] 11.2 % Critically high 4.5-6.2 [facility] Comment on above: Performed By: #### A 1C ####[facility] [address] [address]Dr. Sarah Church LIPID PROFILEon 10-16-2021 CHOL-HDL RATIO NORM SEE BELOW Normal [facility] Comment on above: Result Comment: 3.3 - 4.4 LOW RISK 4.4 - 7.1 AVERAGE RISK 7.1 - 11.0 MODERATE RISK >11.0 HIGH RISK Performed By: #### L IPID, CMP ####[facility] [address] [id number]. Sarah Church Cholesterol [Mass/Vol] 159 mg/dL Normal <=200 [facility] Comment on above: Performed By: #### L IPID, CMP ####[facility] [address] [id number]. Sarah Church Cholesterol in HDL [Mass/Vol] 41 mg/dL Normal 40-60 [facility] Comment on above: Performed By: #### L IPID, CMP ####[facility] [address] [id number]. Sarah Church Cholesterol in LDL [Mass/Vol] 102.6 mg/dL Normal [facility] Comment on above: Performed By: #### L IPID, CMP ####[facility] [address] [id number]. Corriebrenden Ranjit Cholesterol.total/C holesterol in HDL [Mass ratio] 3.9 {ratio} Normal [facility] Comment on above: Performed By: #### L IPID, CMP ####[facility] [address] [id number]. Sarah Church HDL NORMAL > or = 60 mg/dl - LO W CARDIOVASCULAR RISK <40 mg/dl - HIGH CARDIOVASCULAR RISK Normal [facility] Comment on above: Performed By: #### L IPID, CMP ####[facility] [address] [id number]. Sarah Church LDL CALC NORMAL SEE BELOW Normal [facility] Comment on above: Result Comment: <100 mg/dl OPTIMAL 100 - 129 mg/dl NEAR OR ABOVE OPTIMAL 130 - 159 mg/dl BORDERLINE HIGH 160 - 189 mg/dl HIGH >190 mg/dl VERY HIGH Performed By: #### L IPID, CMP ####[facility] [address] [id number]. Sarah Church Triglyceride [Mass/Vol] 77 mg/dL Normal <=150 [facility] Comment on above: Performed By: #### L IPID, CMP ####[facility] [address] [id number]. Sarah Church VLDL CALC 15.4 mg/dL Normal [facility] Comment on above: Performed By: #### L IPID, CMP ####[facility] [address] [id number]. Sarah Church MICROALBUMIN, RAND URon - mALB 2.0 mg/L Normal <=30.0 [facility] Comment on above: Performed By: #### M ALBR #### [facility] [address] [place], [place] [address] Dr. Sarah Church PROF 14(COMP METB)on 022 Albumin [Mass/Vol] 3.5 g/dL Normal 3.4-5.0 [facility] Comment on above: Performed By: #### L IPID, CMP ####[facility] [address] [address]Dr. Sarah Church Albumin/Globulin [Mass ratio] 0.8 {ratio} Normal [facility] Comment on above: Performed By: #### L IPID, CMP ####[facility] [address] [address]Dr. Sarah Church ALP [Catalytic activity/Vol] 85 U/L Normal 46-116 [facility] Comment on above: Performed By: #### L IPID, CMP ####[facility] [address] [address]Dr. Sarah Church ALT [Catalytic activity/Vol] 59 U/L Normal 14-59 [facility] Comment on above: Performed By: #### L IPID, CMP ####[facility] [address] [id number]. Sarah Church Anion gap [Moles/Vol] 15.1 mmol/L Normal [facility] Comment on above: Performed By: #### L IPID, CMP ####[facility] [address] [address]Dr. Sarah Church AST [Catalytic activity/Vol] 32 U/L Normal 15-37 [facility] Comment on above: Performed By: #### L IPID, CMP ####[facility] [address] [place], [place] [address]Dr. Sarah Church Bilirubin [Mass/Vol] 0.4 mg/dL Normal 0.2-1.0 [facility] Comment on above: Performed By: #### L IPID, CMP ####[facility] [address] [place], [place] [address]Dr. Sarah Church Calcium [Mass/Vol] 9.0 mg/dL Normal 8.5-10.1 [facility] Comment on above: Performed By: #### L IPID, CMP ####[facility] [address] [place], [place] [address]Dr. Sarah Church Chloride [Moles/Vol] 102 mmol/L Normal 98-107 [facility] Comment on above: Performed By: #### L IPID, CMP ####[facility] [address] [place], [place] [address]Dr. Sarah Church CO2 [Moles/Vol] 30.2 mmol/L Normal 21.0-32.0 [facility] Comment on above: Performed By: #### L IPID, CMP ####[facility] [address] [place], [place] [address]Dr. Sarah Church Creatinine [Mass/Vol] 0.81 mg/dL Normal 0.55-1.02 [facility] Comment on above: Performed By: #### L IPID, CMP ####[facility] [address] [place], [place] [address]Dr. Sarah Chruch EGFR-AF CANADIAN >60 Normal >=60 [facility] Comment on above: Performed By: #### L IPID, CMP ####[facility] [address] [place], [place] [address]Dr. Corriebrenden Church EGFR-NON AF CANADIAN >60 Normal >=60 [facility] Comment on above: Performed By: #### L IPID, CMP ####[facility] [address] [place], [place] [address]Dr. Sarah Church Globulin (S) [Mass/Vol] 3.9 g/dL Normal [facility] Comment on above: Performed By: #### L IPID, CMP ####[facility] [address] [place], [place] [address]Dr. Corriebrenden Church Glucose [Mass/Vol] 218 mg/dL Critically high 74-106 [facility] Comment on above: Performed By: #### L IPID, CMP ####[facility] [address] [place], [place] [address]Dr. Sarah Church Potassium [Moles/Vol] 4.3 mmol/L Normal 3.5-5.1 [facility] Comment on above: Performed By: #### L IPID, CMP ####[facility] [address] [place], [place] [address]Dr. Sarah Church Protein [Mass/Vol] 7.4 g/dL Normal 6.4-8.2 [facility] Comment on above: Performed By: #### L IPID, CMP ####[facility] [address] [place], [place] [address]Dr. Sarah Church Sodium [Moles/Vol] 143 mmol/L Normal 136-145 [facility] Comment on above: Performed By: #### L IPID, CMP ####[facility] [address] [place], [place] [address]Dr. Sarah Church Urea nitrogen [Mass/Vol] 14.0 mg/dL Normal 7.0-18.0 [facility] Comment on above: Performed By: #### L IPID, CMP ####[facility] [address] [place], [place] [address]Dr. Sarah Church Urea nitrogen/Creatinine [Mass ratio] 17.2 mg/mg Normal [facility] Comment on above: Performed By: #### L IPID, CMP ####[facility] [address] [place], [place] [address]Dr. Sarah Church Vital Signs Date Time Vital Sign Value Performing Clinician Facility 02-23-2024 13:23-0400 Body height 157.48 cm [facility] 02-23-2024 13:23-0400 Body mass index (BMI) [Ratio] 38 kg/m2 [facility] 02-23-2024 13:23-0400 Body weight 94.37 kg [facility] 02-23-2024 13:23-0400 Diastolic blood pressure 78 mm[Hg] [facility] 02-23-2024 13:23-0400 Heart rate 75 /min [facility] 02-23-2024 13:23-0400 Respiratory rate 18 /min [facility] 02-23-2024 13:23-0400 SaO2% (BldA) [Mass fraction] 97 % [facility] 02-23-2024 13:23-0400 Systolic blood pressure 170 mm[Hg] [facility] 12-13-2023 13:03-0400 Body height 157.48 cm [facility] 12-13-2023 13:03-0400 Body mass index (BMI) [Ratio] 37.1 kg/m2 [facility] 12-13-2023 13:03-0400 Body weight 92.07 kg [facility] 12-13-2023 13:03-0400 Diastolic blood pressure 86 mm[Hg] [facility] 12-13-2023 13:03-0400 Heart rate 78 /min [facility] 12-13-2023 13:03-0400 Respiratory rate 18 /min [facility] 12-13-2023 13:03-0400 SaO2% (BldA) [Mass fraction] 96 % [facility] 12-13-2023 13:03-0400 Systolic blood pressure 153 mm[Hg] [facility] 12-05-2023 11:24-0400 Body height 157.48 cm [facility] 12-05-2023 11:24-0400 Body mass index (BMI) [Ratio] 36.9 kg/m2 [facility] 12-05-2023 11:24-0400 Body weight 91.62 kg [facility] 12-05-2023 11:24-0400 Diastolic blood pressure 75 mm[Hg] [facility] 12-05-2023 11:24-0400 Heart rate 80 /min [facility] 12-05-2023 11:24-0400 Systolic blood pressure 133 mm[Hg] [facility] 09-29-2023 13:44-0400 Diastolic blood pressure 76 mm[Hg] [facility] 09-29-2023 13:44-0400 Systolic blood pressure 130 mm[Hg] [facility] 09-29-2023 13:19-0400 Body height 157.48 cm [facility] 09-29-2023 13:19-0400 Body mass index (BMI) [Ratio] 38.7 kg/m2 [facility] 09-29-2023 13:19-0400 Body weight 95.9 kg [facility] 09-29-2023 13:19-0400 Heart rate 89 /min [facility] 09-29-2023 13:19-0400 Respiratory rate 18 /min [facility] 09-29-2023 13:19-0400 SaO2% (BldA) [Mass fraction] 98 % [facility] 09-06-2023 11:08-0400 Body height 157.48 cm [facility] 09-06-2023 11:08-0400 Body mass index (BMI) [Ratio] 37.6 kg/m2 [facility] 09-06-2023 11:08-0400 Body weight 93.44 kg [facility] 09-06-2023 11:08-0400 Diastolic blood pressure 72 mm[Hg] [facility] 09-06-2023 11:08-0400 Heart rate 89 /min [facility] 09-06-2023 11:08-0400 Systolic blood pressure 127 mm[Hg] [facility] 08-24-2023 15:08-0400 Body height 157.48 cm [facility] 08-24-2023 15:08-0400 Body mass index (BMI) [Ratio] 37.5 kg/m2 [facility] 08-24-2023 15:08-0400 Body weight 93.21 kg [facility] 08-19-2023 10:43-0400 Body height 157.48 cm MD Shayy Dela Cruz Work Phone: [facility] 08-19-2023 10:43-0400 Body mass index (BMI) [Ratio] 37.5 kg/m2 MD Shayy Dela Cruz Work Phone: [facility] 08-19-2023 10:43-0400 Body weight 93.09 kg MD Shayy Dela Cruz Work Phone: [facility] 08-19-2023 10:43-0400 Diastolic blood pressure 79 mm[Hg] MD Shayy Dela Cruz Work Phone: [facility] 08-19-2023 10:43-0400 Heart rate 83 /min MD Shayy Dela Cruz Work Phone: [facility] 08-19-2023 10:43-0400 Systolic blood pressure 135 mm[Hg] MD Shayy Dela Cruz Work Phone: [facility] 07-28-2023 14:22-0400 Body height 157.48 cm MD Shayy Dela Cruz Work Phone: [facility] 07-28-2023 14:22-0400 Body mass index (BMI) [Ratio] 37.6 kg/m2 MD Shayy Dela Cruz Work Phone: [facility] 07-28-2023 14:22-0400 Body weight 93.44 kg MD Shayy Dela Cruz Work Phone: [facility] 07-28-2023 14:22-0400 Diastolic blood pressure 84 mm[Hg] MD Shayy Dela Cruz Work Phone: [facility] 07-28-2023 14:22-0400 Heart rate 83 /min MD Shayy Dela Cruz Work Phone: [facility] 07-28-2023 14:22-0400 Respiratory rate 18 /min MD Shayy Dela Cruz Work Phone: [facility] 07-28-2023 14:22-0400 SaO2% (BldA) [Mass fraction] 97 % MD Shayy Dela Cruz Work Phone: [facility] 07-28-2023 14:22-0400 Systolic blood pressure 140 mm[Hg] MD Shayy Dela Cruz Work Phone: [facility] 07-19-2023 10:57-0400 Body height 157.48 cm MD Shayy Dela Cruz Work Phone: [facility] 07-19-2023 10:57-0400 Body mass index (BMI) [Ratio] 37.1 kg/m2 MD Shayy Dela Cruz Work Phone: [facility] 07-19-2023 10:57-0400 Body weight 92.07 kg MD Shayy Dela Cruz Work Phone: [facility] 07-19-2023 10:57-0400 Diastolic blood pressure 68 mm[Hg] MD Shayy Dela Cruz Work Phone: [facility] 07-19-2023 10:57-0400 Heart rate 89 /min MD Shayy Dela Cruz Work Phone: [facility] 07-19-2023 10:57-0400 Systolic blood pressure 132 mm[Hg] MD Shayy Dela Cruz Work Phone: [facility] 05-25-2023 11:00-0500 Body height 157.48 cm Cathie Scally Other [facility] 05-25-2023 11:00-0500 Body mass index (BMI) [Ratio] 37.23 kg/m2 Cathie Scally Other [facility] [employer] Other 05-25-2023 11:00-0500 Body weight 92.35 kg Cathie Scally Other [facility] 05-25-2023 11:00-0500 Diastolic blood pressure 71 mm[Hg] Cathie Scally Other [facility] 05-25-2023 11:00-0500 Respiratory rate 18 /min Cathie Scally Other [facility] [employer] Other 05-25-2023 11:00-0500 SaO2% (BldA) [Mass fraction] 95 % Cathie Vargas Other [facility] [employer] Other 05-25-2023 11:00-0500 Systolic blood pressure 139 mm[Hg] Cathie Vargas Other [facility] 04-15-2023 11:00-0500 Body height 157.48 cm Shayy Dela Cruz Other [facility] 04-15-2023 11:00-0500 Body mass index (BMI) [Ratio] 37.49 kg/m2 Shayy Dela Cruz Other [facility] Other 04-15-2023 11:00-0500 Body weight 92.99 kg Shayy Dela Cruz Other [facility] [employer] Other 04-15-2023 11:00-0500 Body weight 92.98 kg MD Shayy Dela Cruz Work Phone: [facility] 04-15-2023 11:00-0500 Diastolic blood pressure 84 mm[Hg] Shayy Dela Cruz Other [facility] 04-15-2023 11:00-0500 Systolic blood pressure 142 mm[Hg] Shayy Dela Cruz Other [facility] 06-22-2022 13:30-0500 Body height 157.48 cm Shayy Dela Cruz Other [facility] Other 06-22-2022 13:30-0500 Body mass index (BMI) [Ratio] 36.94 kg/m2 Shayy Dela Cruz Other [facility] Other 06-22-2022 13:30-0500 Body weight 91.63 kg Shayy Dela Cruz Other [facility] Other 06-22-2022 13:30-0500 Diastolic blood pressure 74 mm[Hg] Shayy Dela Cruz Other [facility] Other 06-22-2022 13:30-0500 SaO2% (BldA) [Mass fraction] 97 % Shayy Dela Cruz Other [facility] Other 06-22-2022 13:30-0500 Systolic blood pressure 112 mm[Hg] Shayy Dela Cruz Other [facility] Other Encounters Encounter Date Encounter Type Care Provider Facility Start: 02-23-2024 End: 02-23-2024 ambulatory Cathie Vargas [facility] Work Phone: Start: 02-23-2024 End: 02-23-2024 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 Work Phone: [facility] Work Phone: Start: 02-23-2024 End: 02-23-2024 ambulatory [facility] Work Phone: Start: 02-23-2024 End: 02-23-2024 Patient encounter procedure [facility] Work Phone: Start: 01-17-2024 End: 01-17-2024 ambulatory [facility] Work Phone: Start: 01-17-2024 End: 01-17-2024 Patient encounter procedure [facility] Work Phone: Start: 12-13-2023 End: 12-13-2023 ambulatory [facility] Work Phone: Start: 12-13-2023 End: 12-13-2023 Patient encounter procedure [facility] Work Phone: Start: 12-05-2023 End: 12-05-2023 ambulatory [facility] Work Phone: Start: 12-05-2023 End: 12-05-2023 Patient encounter procedure [facility] Work Phone: Start: 11-07-2023 End: 11-07-2023 ambulatory [place] Work Phone: Start: 11-07-2023 End: 11-07-2023 Patient encounter procedure [facility] Work Phone: Start: 09-29-2023 End: 09-29-2023 ambulatory [place] Work Phone: Start: 09-29-2023 End: 09-29-2023 Patient encounter procedure [facility] Work Phone: Start: 09-06-2023 End: 09-06-2023 ambulatory [place] Work Phone: Start: 09-06-2023 End: 09-06-2023 Patient encounter procedure [facility] Work Phone: Start: 08-24-2023 End: 08-24-2023 ambulatory [place] Work Phone: Start: 08-24-2023 End: 08-24-2023 Patient encounter procedure [facility] Work Phone: Start: 08-19-2023 End: 08-19-2023 ambulatory MD Shayy Dela Cruz Work Phone: [facility] Work Phone: Start: 08-19-2023 End: 08-19-2023 Patient encounter procedure MD Shayy Dela Cruz Work Phone: [facility] Work Phone: Start: 07-28-2023 End: 07-28-2023 ambulatory MD Shayy Dela Cruz Work Phone: [facility] Work Phone: Start: 07-28-2023 End: 07-28-2023 Patient encounter procedure MD Shayy Dela Cruz Work Phone: [facility] Work Phone: Start: 07-19-2023 End: 07-19-2023 ambulatory MD Shayy Dela Cruz Work Phone: [facility] Work Phone: Start: 07-19-2023 End: 07-19-2023 Patient encounter procedure MD Shayy Dela Cruz Work Phone: [facility] Work Phone: Start: 07-12-2023 Non-patient / Non-visit MD Shayy Dela Cruz Work Phone: [facility] Work Phone: Start: 06-14-2023 End: 06-14-2023 Patient encounter procedure MD Shayy Dela Cruz Work Phone: [facility] Work Phone: Start: 06-14-2023 End: 06-14-2023 ambulatory MD Shayy Dela Cruz Work Phone: [facility] Work Phone: Start: 06-06-2023 End: 06-06-2023 ambulatory Shayy Dela Cruz Other [facility] Other Start: 06-06-2023 Telephone encounter Shayy Dela [facility] Start: 05-25-2023 [facility] visit new patient Cathie Sheikh y [facility] Start: 05-25-2023 End: 05-25-2023 ambulatory MD Shayy Dela Cruz Work Phone: [facility] Other Start: 05-25-2023 End: 05-25-2023 Discharged Recurring MD Shayy Dela Cruz Work Phone: [facility] Work Phone: Start: 05-25-2023 Registered Recurring MD Shayy Dela Cruz [facility] Work Phone: Start: 05-25-2023 End: 05-25-2023 Patient encounter procedure MD Shayy Dela Cruz Work Phone: [facility]- Start: 05-12-2023 End: 05-12-2023 ambulatory Shayy Dela Cruz Other [facility] Other Start: 05-12-2023 Telephone encounter Shayy Dela [facility] Start: 05-10-2023 End: 05-10-2023 ambulatory Shayy Dela Cruz Other [facility] Other Start: 05-10-2023 Telephone encounter Shayy Dela Cruz [facility] Start: 04-22-2023 End: 04-22-2023 ambulatory Shayy Dela Cruz Other [facility] Other Start: 04-22-2023 Telephone encounter Shayy Dela Cruz [facility] Start: 04-20-2023 End: 04-20-2023 ambulatory Lynne Hernandez Other [facility] Other Start: 04-20-2023 Telephone encounter Lynne Avilat [facility] Start: 04-18-2023 End: 04-18-2023 ambulatory Lynne Avilat Other [facility] Other Start: 04-18-2023 Telephone encounter Lynne Avilat [facility] Start: 04-15-2023 End: 04-15-2023 ambulatory Shayy Dela Cruz Other [facility] Other Start: 04-15-2023 Office outpatient visit 15 minutes Shayy Dela Cruz [facility] Start: 04-15-2023 End: 04-15-2023 Patient encounter procedure MD Shayy Dela Cruz Work Phone: [facility] Work Phone: Start: 04-06-2023 End: 04-06-2023 ambulatory Shayy Dela Cruz Other [facility] Other Start: 04-06-2023 Telephone encounter Shayy Dela Cruz [facility] Start: 02-25-2023 End: 02-25-2023 ambulatory Shayy Dela Cruz Other [facility] Other Start: 02-25-2023 Telephone encounter Shayy Dela Cruz [facility] Start: 12-13-2022 End: 12-13-2022 ambulatory [facility] Start: 10-29-2022 End: 10-29-2022 ambulatory Shayy Dela Cruz Other [facility] Other Start: 10-29-2022 Telephone encounter Shayy Dela Cruz [facility] Start: 08-27-2022 End: 08-28-[address] SHAYY DELA CRUZ Facility:[facility] Start: 08-10-2022 End: 08-10-2022 ambulatory [facility] Start: 07-20-2022 End: 07-21-[address] SHAYY DELA CRUZ Facility:[facility] Start: 07-19-2022 End: 07-19-2022 ambulatory Shayy Dela Cruz Other [facility] Other Start: 07-19-2022 Telephone encounter Shayy Dela Cruz [facility] Start: 07-12-2022 End: 07-13-[address] SHAYY DELA CRUZ Facility:[facility] Start: 07-05-2022 End: 07-05-2022 ambulatory Shayy Dela Cruz Other [facility] Other Start: 07-05-2022 Telephone encounter Shayy Dela Cruz [facility] Start: 06-28-2022 End: 06-28-2022 ambulatory Shayy Dela Cruz Other [facility] Other Start: 06-28-2022 Telephone encounter Shayy Dela Cruz [facility] Start: 06-22-2022 End: 06-22-2022 ambulatory Shayy Dela Cruz Other [facility] Other Start: 06-22-2022 Office outpatient visit 15 minutes Shayy Dela Cruz [facility] Start: 05-27-2022 End: 05-27-2022 ambulatory Shayy Dela Cruz Other [facility] Other Start: 05-27-2022 Telephone encounter Shayy Dela Cruz [facility] Start: 05-19-2022 End: 05-20-[address] SHAYY [...] Start: 05-10-2017 End: 05-11-2017 Ambulatory DEFAULT PHYSICIAN Facility:[facility] Start: 05-05-2017 End: 05-06-2017 Ambulatory DEFAULT PHYSICIAN Facility:[facility] Procedures Date Procedure Procedure Detail Performing Clinician Start: 12-13-2022 Follow-up visit Follow-up MARQUES MOROCHO Plan of Treatment Date Care Activity Detail Author Comprehensive metabo lic 2000 panel - Serum or Plasma [facility] enter MG Breast - bilateral Screening [facility] Immunizations Immunization Date Immunization Notes Care Provider Fa cility 02-01-2022 influenza virus vaccine, split virus (incl. purified surface antigen) Shayy Dela Cruz Other [facility] Other 02-01-2022 influenza virus vaccine, unspecified formulation MD Shayy Dela Cruz Work Phone: [facility] Payers Date Payer Category Payer Medicare [id number] 2023 Self-pay 2021 Medicaid [id number] 2017 Unknown [id number] 1972 Unknown [id number] 2.16.84 [id number] 1972 Unknown [id number] 2.16.84 [id number] 1972 Unknown [id number] 2.16.84 [id number] 1972 Unknown [id number] 2.16.84 [id number] 1972 Unknown [id number] 2.16.84 [id number] 1972 Unknown [id number] 2.16.84 [id number] 1972 Unknown [id number] 2.16.84 [id number] 1972 Unknown [id number] 2.16.84 [id number] 1972 Unknown [id number] 2.16.84 [id number] 1957 Medicaid [id number] 2. [id number] 1957 Medicare [id number] . [id number] Unknown Unknown [id number] 2.16.8 [id number] Unknown [id number] 2.16.8 [id number] Social History Date Type Detail Facility Unknown if ever smoked [facility] Other Sex Assigned At Sex Assigned At Bir th [facility] Other Start: 1970 Sex Assigned At Female F [facility] Start: 07-19-2023 Tobacco smoking status NHIS Never smoked tobacco (finding) [facility] Medical Equipment Procedure Code Equipment Code [...] 2 diabetes mellitus with hyperglycemia, unspecified whether assisted insulin use (ICD-10 - E11.65) [place] Other 01-24-2024 Evaluation note* Encounter Date Diagnosis [...] Instructions material was published to portal May, nursing home current use of insulin (ICD-10 - Z79.4) May, BMI 37.0-37.9, adult (ICD-10 - Z68.37) May, Other 05/25/2023 The patient was given a Dexcom G7 sensor sample and an [employer] [place]. She was taught how to use the [...] educating the patient by Nguyễn Norwood RN, [facility]. [facility] Other 12-15-2023 Evaluation note* Encounter Date Diagnosis Assessment Notes Treatment Notes Treatment Clinical Notes Apr, Type 2 diabetes mellitus with hyperglycemia (ICD-10 - E11.65) Rx handwritten for diabetic shoes. Pt agrees to referral to specialty clinic. Continue present meds and discussed healthy diet in meantime. Apr, nursing home (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 of insulin (ICD-10 - Z79.4) [facility] Other 08-14-2023 NoteCardiology Clinic Note Subjective Zoila [...] Active Problem List Diagnosis Coronary arteriosclerosis in [place] artery Old myocardial infarction Sinusitis Type 1 [...] the IVC. Mitral V (more content not included)...[facility] 08-10-2022 NoteCardiology Clinic Note Subjective Zoila [...] Active Problem List Diagnosis Coronary arteriosclerosis in [place] artery Old myocardial infarction Sinusitis Type 1 [...] in size. The (more content not included)... [facility]02-21-2023 Evaluation note* Encounter Date Diagnosis Assessment Notes Treatment Notes Treatment Clinical Notes Jun, Acute non-recurrent maxillary sinusitis (ICD-10 - J01.00) Jun, Controlled type 2 diabetes mellitus with hyperglycemia, unspecified whether director long term care insulin use (ICD-10 - E11.65) Once again advised management at diabetes clinic. She declines and will continue meds, followup in 3 months, and recheck labs at that time. She is eating more of a keto diet and is certain that is helping her A1C improve. Jun, Screening mammogram for breast cancer (ICD-10 - Z12.31) Zoila will call for an [employer] [facility] Other 01-31-2023 NoteIn light of elevated LDL will change simvastatin to lipitor 40 mg daily. Will repeat liver function and lipid level in 2 months. Staff to notify pt. Malcolm Evans PRINT FINISHER Division of Cardiology, [facility]- [phone] Pager- [phone] Email- [email or web address]01-18-2023 NotePatient here for 1 year [...] light-headedness. All other systems reviewed and are negative.[facility] 05-19-2022 NoteUTP CARDIOLOGY PROGRESS NOTE HPI: [...] past 12 months Assessment/Plan: Coronary arteriosclerosis in [place] artery Coronary artery disease is stable, no [...] RTC 1 month to review B/P [facility]01-18-2023 Note Hypertension is uncontrolled, Will add lisinopril 5 mg po daily, and continue metoprolol Goal b/p 130/80 or less, monitor for dry persistent cough- call office for any concerns, repeat BMP in 1 week RTC 1 month to review B/P [facility]01-18-2023 Note Coronary artery disease is stable, no concerning symptoms continue risk factor modifications- heart healthy diet, regular exercise as tolerated and continue all medications.[facility] 04-15-2022 NotePROCEDURE: XR FOOT LT MIN [...] Electronically authenticated by: NARINDER LAN Date: 2022-04-15 06:08[facility]09-12-2022 NotePROCEDURE: XR TOES RT MIN 2 V HISTORY: Pain of toe of right foot ; first toe pain following injury COMPARISON: None. FINDINGS: BONES:No fracture, acute abnormality, or significant arthropathy. SOFT TISSUES:No visible soft tissue swelling. EFFUSION:None visible. OTHER: Negative. IMPRESSION: 1. No acute bone abnormality. 2. Mild degenerative joint disease. Electronically authenticated by: NARINDER LAN Date: 2022-01-11 18:48[facility]Reason for visit Narrative* Chief Complaint 3 Month Follow Up Referral Dr. Negro Dela Cruz DM download [facility] Work Phone: chief complaint+Reason for visit Narrative* Chief Complaint 3 Month Follow Up Referral Dr. Negro Dela Cruz DM download Reason for Visit Type 2 diabetes holli [facility] Work Phone: chief complaint+Reason for visit Narrative* Chief Complaint Referral Dr. Negro LAGUERRE download 3 Month Check up Reason for Visit Type 2 diabetes holli [facility] Work Phone: chief complaint+Reason for visit Narrative* Chief Complaint Referral Dr. Negro LAGUERRE download 3 Month Check up amrik reader Reason for Visit Type 2 diabetes holli itus Right wrist fracture Type 2 diabetes mellitus [facility] Work Phone: chief complaint+Reason [...] D deficiency Gastroesophageal reflux disease [facility] Work Phone: Evaluation noteNo InformationN[place] Other Evaluation noteNo assessment information available [facility] Work Phone: Evaluation note* Diagnosis Onset Date Resolution Status Type 2 diabetes mellitus acu te [facility] Work Phone: Evaluation note* Diagnosis Onset Date Resolution Status Type 2 diabetes mellitus acu te Right wrist fracture acute Type 2 diabetes mellitus acu te [facility] Work Phone: Evaluation note* Diagnosis Onset [...] acute Gastroesophageal reflux disease acute [facility] Work Phone: evaluation note* Diagnosis Onset [...] 2 diabetes mellitus acu te [facility] Work Phone: evaluation note* Diagnosis Onset [...] 2 diabetes mellitus acu te [facility] Work Phone: evaluation note* Diagnosis Onset [...] 2 diabetes mellitus acu te [facility] Work Phone: evaluation note* Diagnosis Onset [...] te Screening mammogram for breast cancer acute [facility] Work Phone: evaluation note* Diagnosis Onset [...] mellitus acu te Vitamin D deficiency acute [facility] Work Phone: Evaluation note* Diagnosis Onset [...] 2 diabetes mellitus acu te [facility] Work Phone: Evaluation note* Diagnosis Onset [...] mellitus acu te Vitamin D deficiency acute [facility] Work Phone: Hisovni general Narrative - Reported* Type Description Date Medical History Herpes labialis Medical History Candidiasis of mouth Medical History Type 2 diabetes holli itus with diabetic polyneuropathy, unspecified whether director long term care insulin use Medical History Controlled type 2 di abetes mellitus with hyperglycemia, unspecified whether assisted insulin use Medical History Obesity Medical History Dyslipidemia Medical History CAD in [place] artery Medical History Asthma, intermittent Medical History [...] History appendectomy Surgical History 7 stents 1999 [facility] Other [facility] general Narrative - Reported* Type Description Date Medical History Herpes labialis Medical History Candidiasis of mouth Medical History Type 2 diabetes holli itus with diabetic polyneuropathy, unspecified whether assisted insulin use Medical History Controlled type 2 di abetes mellitus with hyperglycemia, unspecified whether assisted insulin use Medical History Obesity Medical History Dyslipidemia Medical History CAD in [place] artery Medical History Asthma, intermittent Medical History [...] stents 1999 Hospitalization History see surgical history [facility] Other History general Narrative - Reported* Type Description Date Medical History Herpes labialis Medical History Candidiasis of mouth Medical History Type 2 diabetes holli itus with diabetic polyneuropathy, unspecified whether assisted insulin use Medical History Controlled type 2 di abetes mellitus with hyperglycemia, unspecified whether assisted insulin use Medical History Obesity Medical History Dyslipidemia Medical History CAD in [place] artery Medical History Asthma, intermittent Medical History [...] coronary 1999 Hospitalization History see surgical history [facility] Other Summary Purpose Family History No Family [...] itus with hyperglycemia (E11.65) Referral Organization [facility] Karli fuchs Referring Provider First Name Shayy Referring Provider Last Name Jose De Jesus Referring Provider Specialty [facility] Referred Organization [facility] Referred Provider Marcia Mendes Referred Address [address],[place], [place],[address] Referred Provider Specialty Nurse Huey saldaña Referral [...] and content) DATE CREATED AUTHOR 10/25/2017 [facility] DATE CREATED AUTHOR AUTHOR'S ORGANIZ ATION 09/03/2022 [facility] DATE CREATED AUTHOR AUTHOR'S ORGANIZ ATION 12/13/2022 [facility] DATE CREATED AUTHOR AUTHOR'S ORGANIZ ATION 02/25/2024 [facility] REASON FOR VISIT (unrecogniz ed section and content) labsmessage3 MONTH FOLLOW UP ACrefillmessagemessageRefill3 month Follow upDM [id number] ReferralrefillsNo InformationRefillReferral Dr. Negro Gallegos sensor running [...] June 14, 2023 End: June 14, 2023 Britatni Collier RN Attending Provider Active Start: June [...] BE BASED ON THE PRIMARY CLINICAL RECORDS. [facility] [employer] [facility]. provides no warranty or guarantee of the accuracy or completeness of information in this document.
[2024-03-26 08:08] LABS: Glucometer 145 mg/dL (74-106)
== END 2024-03-21 08:38 | disposition home or self-care (01) ==
LOC: MRI 08:38
PROVIDERS: PCP Family Medicine; Visit Provider Podiatrist Foot & Ankle Surgery
DX: S86.011A Strain of right Achilles tendon, initial encounter (principal)
CPT/HCPCS: 36415; 73721

== ENCOUNTER 2024-04-12 14:53 | Outpatient (RCR) | payer MEDICARE, MEDICAID, SELFPAY | END 2024-05-01 14:59 | disposition home or self-care (01) | LOC: PT 14:53 | PROVIDERS: PCP Family Medicine; Visit Provider Podiatrist Foot & Ankle Surgery | DX: S86.011D Strain of right Achilles tendon, subsequent encounter (principal); E11.42 Type 2 diabetes mellitus with diabetic polyneuropathy | CPT/HCPCS: 97035; 97116; 97140; 97161; 97530 ==

== ENCOUNTER 2024-04-19 21:20 | Emergency (ER) | payer MEDICARE, MEDICAID, SELFPAY ==
[2024-04-19 21:22] VITALS: BP 180/99; PULSE 106; TEMP 36.8; O2SAT 96; BMI 41.2
--- OUTSIDE RECORDS SUMMARY | 2024-04-19 21:25 | XMS_ITS | CCD ---
Author Organization [facility] Care Team Providers Care Linux Unix System Administrator Name Role Phone PHYSICIAN, DEFAULT Unavailable Unavailable [...] Reyes Admitting Unavailable DELA CRUZ, DR SHAYY eRyes Primary Care Unavailable JORDYN SANCHEZ Attending Unavailable [...] MD Shayy Dela Cruz Attending Provider Sam, CONTRACT FORESTER Cathie C Attending Provider Scally, Cathie C Admitting Unavailable Sam, Cathie C Attending Unavailable Shayy Dela Cruz Admitting Unavailable Shayy Dela Cruz Primary Care Unavailable Shayy Dela Cruz Attending Unavailable Brittani Collier Admitting Unavailable Brittani Collier Attending Unavailable Shayy Dela Cruz Primary Care Unavailable Allergies Allergy Classification Reported Allergen(s) Allergy Type Date of Onset Reaction(s) Facility (1 source) codeine Drug Allergy 9 [facility] Repository (17 sources) Latex; Translations: [LATEX] Drug allergy (disorder) 9 sores on skin [facility] Repository (20 sources) Codeine; Translations: [CODEINE] Drug Allergy 0 nausea [facility] Repository (18 sources) Latex Drug allergy sores on skin [facility] Other (1 source) Codeine Drug Allergy [facility] Repository (1 source) atorvastatin; Translations: [ATORVASTATIN] Drug Allergy 3 [facility] Repository (6 sources) cat dander Allergy to substance 4 Sneezing, Itching [facility] (6 sources) dog dander Allergy to substance 4 Sneezing, Itching [facility] (6 sources) ozempic Propensity to adverse reactions 4 Vomiting [facility] (1 source) Codeine Drug Allergy 4 [facility] Repository (1 source) Latex Drug allergy (disorder) 4 [facility] Repository Medications Current Medications Medication Drug Class(es) Dates Sig (Normalized) Sig (Original) [id number] 200 actuat albuterol 0.09 mg/actuat metered dose [...] May, Active Blood-Glucose Meter,Continuo us ([employer]) misc (4 sources) Start: 12-13-2023 Blood-Glucose Meter,Continuous ([employer]) misc Active 0 .Route December 13, 2023 12:00am As directed Start: 12-13-2023 Blood-Glucose Meter,Continuous ([employer]) misc Active 0 .ROUTE December 13, 2023 [...] Orally Once a day Active [employer] - (4 sources) Start: 06-03-19 24 [employer] - as directed as directed 4 x [...] De Jesus Reyes take 1 capsule by [facility] once daily Esomeprazole Magnesium 40 mg [...] Once a day Active [employer] [facility] [place] - (3 sources) Start: 06-06-2023 [employer] [place] - as directed invitro 4 times daily [...] with meals; Note: Source Status: Continue; Provider: Jsoe De Jesus Reyes glipiZIDE 10 mg take [...] Jun, Not-Taking/PRN Blood-Glucose Meter,Continuous ([employer] [place]) misc (11 sources) Start: 07-28-2023 End: 12-13-2023 Blood-Glucose Meter,Continuous ([employer] [place]) misc Discontinued EACH .ROUTE .MEDSUPPLY July 28, 2023 12:00am December 13, 2023 1:09pm As directed Start: 07-28-2023 Blood-Glucose Meter,Continuous ([employer] [place]) misc Active EACH .ROUTE .MEDSUPPLY July 28, [...] a day; Note: Source Status: Not-Taking\PRN; Provider: Sma Brand ( ) take 1 tablet by [...] angina pectoris; Translations: [Atherosclerotic heart disease of [place] coronary artery without angina pectoris] Onset: 03-24-2022 [...] Onset: 11-09-2021 Chronic Other aftercare (17 sources) senior care (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 of insulin; Translations: [Long-term (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 of insulin] Onset: 04-08-2022 Episodic Other aftercare (20 sources) Long-term current use of insulin; Translations: [senior care (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 of insulin] 07-28-2023 Episodic Other [...] Onset: 04-08-2022 Episodic Other aftercare (1 source) senior care (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; Translations: [CONSERVATOR ARTIFACTS CURRENT USE OF ASPIRIN] Onset: 04-08-2022 Episodic Other aftercare (1 source) senior care (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 of oral hypoglycemic drugs; Translations: [INTERMEDIATE USE ORAL HYPOGLYCEMIC DX] Onset: 04-08-2022 Episodic Other aftercare (1 source) Other usp (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 therapy; Translations: [OTH CONSERVATOR ARTIFACTS CURRENT DRUG THERAPY] Onset: 11-09-2021 Episodic Other [...] on 02-23-2024 Creatinine (U) [Mass/Vol] 28.00 mg/dL [facility] Comment on above: No reference range e stablished MicroAlb Creat Ratio,Uon Creatinine, Urine (Random) 28.00 mg/dL Normal [facility] Comment on above: Result Comment: No r eference range established Performed By: #### U RMACRERAT #### [address] Microalbumin/Creati nine Ratio Not performed Normal 0.0-30.0 [facility] Comment on above: Result Comment: PERF ORMED BY: [place] [address] PATHOLOGIST LAST MODEL DEPARTMENT SUPERVISOR RUBINA RICCI M.D. Performed By: #### U RMACRERAT #### [address] Microalbumin [Mass/volume] i n UrineOrdered By: Cathie Vargas on 02-23-2024 Albumin DL <= 20 mg/L (U) [Mass/Vol] mg/dL Normal 0.0-1.8 [facility] Comment on above: Performed By: #### U RMACRERAT #### [facility] [address] [place] [address] Urine microalbumin/creatinin e mass ratioOrdered By: Cathie Vargas on 02-23-2024 Albumin/Creatinine DL <= 20 mg/L (U) [Mass ratio] TNP [facility] Comment on above: Test not performed HbA1c HPLC (Bld) [Mass fract ion]on 12-13-2023 HbA1c (Bld) [Mass fraction] 9.9 % [facility] No Panel Informationon 12-12 Bedside Glucose 118 [facility] No Panel Informationon 09-28 Bedside Glucose 278 [facility] HbA1c HPLC (Bld) [Mass fract ion]on 07-28-2023 HbA1c (Bld) [Mass fraction] 10.3 % [facility] No Panel Informationon 07-27 Bedside Glucose 126 [facility] Basophils Auto (Bld) [#/Vol] on 07-12-2023 Basophils (Bld) [#/Vol] 0.0 10 3/uL 0.0-0.1 [facility] Basophils/100 WBC Auto (Bld) on 07-12-2023 Basophils/100 WBC (Bld) 0.5 % 0.2-2.0 [facility] Eosinophils/100 WBC Auto (Bl d)on 07-12-2023 Eosinophils/100 WBC (Bld) 1.5 % 0.9-7.0 [facility] Erythrocyte distribution wid th Auto (RBC) [Ratio]on 07-12-2023 Erythrocyte distribution width (RBC) [Ratio] 12.7 % 11.0-15.0 [facility] Estimated glomerular filtrat ion rate (GFR) non- Americanon 07-12-2023 GFR/1.73 sq M.predicted among non-blacks MDRD (S/P/Bld) [Vol rate/Area] mL/min/{1.73_m2} >=60 [facility] Hematocrit Auto (Bld) [Volum e fraction]on 07-12-2023 Hematocrit (Bld) [Volume fraction] 42.8 % 36.0-48.0 [facility] Hemoglobin [Mass/volume] in Bloodon 07-12-2023 Hemoglobin (Bld) [Mass/Vol] 14.3 g/dL 12.0-16.0 [facility] Laboratory - Chemistry and C hemistry - challengeon 07-12-2023 Calcium [Mass/Vol] 9.1 mg/dL 8.5-10.1 [facility] Chloride [Moles/Vol] 100 mmol/L 98-107 [facility] CO2 [Moles/Vol] 26.1 mmol/L 21.0-32.0 [facility] Creatinine [Mass/Vol] 0.78 mg/dL 0.55-1.02 [facility] GFR/1.73 sq M.predicted MDRD (S/P/Bld) [Vol rate/Area] mL/min/{1.73_m2} >=60 [facility] Glucose [Mass/Vol] 215 mg/dL 74-106 [facility] Potassium [Moles/Vol] 4.0 mmol/L 3.5-5.1 [facility] Sodium [Moles/Vol] 137 mmol/L 136-145 [facility] Urea nitrogen [Mass/Vol] 12.0 mg/dL 7.0-18.0 [facility] Urea nitrogen/Creatinine [Mass ratio] 15.4 mg/mg [facility] Laboratory - Hematology and Cell countson 07-12-2023 Immature granulocytes/100 WBC (Bld) 0.1 % 0.0-0.5 [facility] Leukocytes [#/volume] correc alma delia for nucleated erythrocytes in Blood by Automated counon 07-12-2023 WBC corrected for nucl RBC Auto (Bld) [#/Vol] 7.8 10 3/uL 4.0-11.0 [facility] Lymphocytes Auto (Bld) [#/Vo l]on 07-12-2023 Lymphocytes (Bld) [#/Vol] 2.7 10 3/uL 1.2-3.8 [facility] Lymphocytes/100 WBC Auto (Bl d)on 07-12-2023 Lymphocytes/100 WBC (Bld) 34.1 % 20.5-60.0 [facility] MCH Auto (RBC) [Entitic mass ]on 07-12-2023 MCH (RBC) [Entitic mass] 29.2 pg 26.7-34.0 [facility] MCHC Auto (RBC) [Mass/Vol]on 07-12-2023 MCHC (RBC) [Mass/Vol] 33.4 g/dL 29.9-35.2 [facility] MCV Auto (RBC) [Entitic vol] on 07-12-2023 MCV (RBC) [Entitic vol] 87.5 fL 81.0-99.0 [facility] Monocytes Auto (Bld) [#/Vol] on 07-12-2023 Monocytes (Bld) [#/Vol] 0.5 10 3/uL 0.3-0.8 [facility] Monocytes/100 WBC Auto (Bld) on 07-12-2023 Monocytes/100 WBC (Bld) 6.4 % 1.7-12.0 [facility] Neutrophils Auto (Bld) [#/Vo l]on 07-12-2023 Neutrophils (Bld) [#/Vol] 4.5 10 3/uL 1.4-6.5 [facility] Neutrophils/100 WBC Auto (Bl d)on 07-12-2023 Neutrophils/100 WBC (Bld) 57.4 % 43.0-75.0 [facility] No Panel Informationon 07-11 Eosinophils # (Auto) 0.1 10 3/uL 0.0-0.7 [facility] Immature Granulocyte # (Auto) 0.01 10 3/uL 0.00-0.03 [facility] Platelet mean volume Auto (B ld) [Entitic vol]on 07-12-2023 Platelet mean volume (Bld) [Entitic vol] 10.9 fL 9.5-13.5 [facility] Platelets Auto (Bld) [#/Vol] on 07-12-2023 Platelets (Bld) [#/Vol] 259 10 3/uL 150-450 [facility] RBC Auto (Bld) [#/Vol]on RBC (Bld) [#/Vol] 4.89 10 6/uL 4.20-5.40 [facility] Serum or plasma anion gap de terminationon 07-12-2023 Anion gap [Moles/Vol] 14.9 mmol/L [facility] Glucose - FINGER STICKon Glucose [Mass/Vol] 360 mg/dL [facility] Other Office Visiton 12-13-2022 Follow-up visit [id number] Arlette Ramos 1970 F Date Provider Department Center 12/13/2022 [id number]-MARQUES MOROCHO [facility] No family history on file Level of Service:04964 [place] OFFICE/OUTPATIENT ESTABLISHED LOW MDM 20-29 MIN Reason for Visit and Comments: Follow-up [980787] - 4 mo follow up Normal [facility] CBC AUTO DIFFon 08-27-2022 BASO # 0.0 103/ul Normal 0.0-0.1 [facility] Comment on above: Performed By: #### C BC #### [facility] [address] [place] [address] Dr. Sarah Church Basophils/100 WBC (Bld) 0.5 % Normal 0.2-2.0 [facility] Comment on above: Performed By: #### C BC #### [facility] [address] [place] [address] Dr. Sarah Church EO # 0.2 103/ul Normal 0.0-0.7 [facility] Comment on above: Performed By: #### C BC #### [facility] [address] [place] [address] Dr. Sarah Church Eosinophils/100 WBC (Bld) 2.2 % Normal 0.9-7.0 [facility] Comment on above: Performed By: #### C BC #### [facility] [address] [place] [address] Dr. Sarah Church Erythrocyte distribution width (RBC) [Ratio] 12.5 % Normal 11.0-15.0 [facility] Comment on above: Performed By: #### C BC #### [facility] [address] [place] [address] Dr. Sarah Church Hematocrit (Bld) [Volume fraction] 44.1 % Normal 36.0-48.0 [facility] Comment on above: Performed By: #### C BC #### [facility] [address] [place] [address] Dr. Sarah Church Hemoglobin (Bld) [Mass/Vol] 15.1 g/dL Normal 12.0-16.0 [facility] Comment on above: Performed By: #### C BC #### [facility] [address] [place] [address] Dr. Sarah Church IG # 0.02 10e3/ul Normal 0.00-0.03 [facility] Comment on above: Performed By: #### C BC #### [facility] [address] [place] [address] Dr. Sarah Church IG % 0.2 % Normal 0.0-0.5 [facility] Comment on above: Performed By: #### C BC #### [facility] [address] [place] [address] Dr. Sarah Church LYMPH # 2.9 103/ul Normal 1.2-3.8 [facility] Comment on above: Performed By: #### C BC #### [facility] [address] [place] [address] Dr. Sarah Church Lymphocytes/100 WBC (Bld) 33.4 % Normal 20.5-60.0 [facility] Comment on above: Performed By: #### C BC #### [facility] [address] [place] [address] Dr. Sarah Church MANUAL DIFF REQ NO Normal [facility] Comment on above: Performed By: #### C BC #### [facility] [address] [place] [address] Dr. Sarah Church MCH (RBC) [Entitic mass] 29.1 pg Normal 26.7-34.0 [facility] Comment on above: Performed By: #### C BC #### [facility] [address] [place] [address] Dr. Sarah Church MCHC (RBC) [Mass/Vol] 34.2 g/dL Normal 29.9-35.2 [facility] Comment on above: Performed By: #### C BC #### [facility] [address] [place] [address] Dr. Sarah Church MCV (RBC) [Entitic vol] 85.0 fL Normal 81.0-99.0 [facility] Comment on above: Performed By: #### C BC #### [facility] [address] [place] [address] Dr. Sarah Church MONO # 0.6 103/ul Normal 0.3-0.8 [facility] Comment on above: Performed By: #### C BC #### [facility] [address] [place] [address] Dr. Sarah Church Monocytes/100 WBC (Bld) 6.8 % Normal 1.7-12.0 [facility] Comment on above: Performed By: #### C BC #### [facility] [address] [place] [address] Dr. Sarah Church NEUT # 4.9 103/ul Normal 1.4-6.5 [facility] Comment on above: Performed By: #### C BC #### [facility] [address] [place] [address] Dr. Sarah Church Neutrophils/100 WBC (Bld) 56.9 % Normal 43.0-75.0 [facility] Comment on above: Performed By: #### C BC #### [facility] [address] [place] [address] Dr. Sarah Church Platelet mean volume (Bld) [Entitic vol] 10.8 fL Normal 9.5-13.5 [facility] Comment on above: Performed By: #### C BC #### [facility] [address] [place] [address] Dr. Sarah Church PLT 276 103/ul Normal 150-450 [facility] Comment on above: Performed By: #### C BC #### [facility] [address] [place] [address] Dr. Sarah Church RBC 5.19 106/ul Normal 4.20-5.40 [facility] Comment on above: Performed By: #### C BC #### [facility] [address] [place] [address] Dr. Sarah Church WBC 8.6 103/ul Normal 4.0-11.0 [facility] Comment on above: Performed By: #### C BC #### [facility] [address] [place] [address] Dr. Sarah Church LIPID PROFILEon 08-27-2022 CHOL-HDL RATIO NORM SEE BELOW Normal [facility] Comment on above: Result Comment: 3.3 - 4.4 LOW RISK 4.4 - 7.1 AVERAGE RISK 7.1 - 11.0 MODERATE RISK >11.0 HIGH RISK Performed By: #### L IPID, CMP #### [facility] [address] [place] [address] Dr. Sarah Church Cholesterol [Mass/Vol] 110 mg/dL Normal <=200 [facility] Comment on above: Performed By: #### L IPID, CMP #### [facility] [address] [address] [address] Sarah Church Cholesterol in HDL [Mass/Vol] 33 mg/dL Critically low 40-60 [facility] Comment on above: Performed By: #### L IPID, CMP #### [facility] [address] [address] [address] Sarah Church Cholesterol in LDL [Mass/Vol] 58.0 mg/dL Normal [facility] Comment on above: Performed By: #### L IPID, CMP #### [facility] [address] [address] [address] Sarah Church Cholesterol.total/C holesterol in HDL [Mass ratio] 3.3 {ratio} Normal [facility] Comment on above: Performed By: #### L IPID, CMP #### [facility] [address] [address] [address] Sarah Church HDL NORMAL > or = 60 mg/dl - LO W CARDIOVASCULAR RISK <40 mg/dl - HIGH CARDIOVASCULAR RISK Normal [facility] Comment on above: Performed By: #### L IPID, CMP #### [facility] [address] [address] [address] Sarah Church LDL CALC NORMAL SEE BELOW Normal [facility] Comment on above: Result Comment: <100 mg/dl OPTIMAL 100 - 129 mg/dl NEAR OR ABOVE OPTIMAL 130 - 159 mg/dl BORDERLINE HIGH 160 - 189 mg/dl HIGH >190 mg/dl VERY HIGH Performed By: #### L IPID, CMP #### [facility] [address] [address] [address] Sarah Church Triglyceride [Mass/Vol] 95 mg/dL Normal <=150 [facility] Comment on above: Performed By: #### L IPID, CMP #### [facility] [address] [address] [address] Sarah Church VLDL CALC 19.0 mg/dL Normal [facility] Comment on above: Performed By: #### L IPID, CMP #### [facility] [address] [address] [address] Sarah Church PROF 14(COMP METB)on 023 Albumin [Mass/Vol] 3.3 g/dL Critically low 3.4-5.0 [facility] Comment on above: Performed By: #### L IPID, CMP #### [facility] [address] [place] [address] Dr. Sarah Church Albumin/Globulin [Mass ratio] 0.8 {ratio} Normal [facility] Comment on above: Performed By: #### L IPID, CMP #### [facility] [address] [place] [address] Dr. Sarah Church ALP [Catalytic activity/Vol] 100 U/L Normal 46-116 [facility] Comment on above: Performed By: #### L IPID, CMP #### [facility] [address] [place] [address] Dr. Sarah Church ALT [Catalytic activity/Vol] 74 U/L Critically high 14-59 [facility] Comment on above: Performed By: #### L IPID, CMP #### [facility] [address] [place] [address] Dr. Sarah Church Anion gap [Moles/Vol] 13.2 mmol/L Normal [facility] Comment on above: Performed By: #### L IPID, CMP #### [facility] [address] [place] [address] Dr. Sarah Church AST [Catalytic activity/Vol] 42 U/L Critically high 15-37 [facility] Comment on above: Performed By: #### L IPID, CMP #### [facility] [address] [place] [address] Dr. Sarah Church Bilirubin [Mass/Vol] 0.4 mg/dL Normal 0.2-1.0 [facility] Comment on above: Performed By: #### L IPID, CMP #### [facility] [address] [place] [address] Dr. Sarah Church Calcium [Mass/Vol] 9.2 mg/dL Normal 8.5-10.1 [facility] Comment on above: Performed By: #### L IPID, CMP #### [facility] [address] [place] [address] Dr. Sarah Church Chloride [Moles/Vol] 99 mmol/L Normal 98-107 [facility] Comment on above: Performed By: #### L IPID, CMP #### [facility] [address] [place] [address] Dr. Sarah Church CO2 [Moles/Vol] 30.4 mmol/L Normal 21.0-32.0 [facility] Comment on above: Performed By: #### L IPID, CMP #### [facility] [address] [place] [address] Dr. Sarah Church Creatinine [Mass/Vol] 0.78 mg/dL Normal 0.55-1.02 [facility] Comment on above: Performed By: #### L IPID, CMP #### [facility] [address] [place] [address] Dr. Sarah Church EGFR-AF ICELANDIC >60 Normal >=60 [facility] Comment on above: Performed By: #### L IPID, CMP #### [facility] [address] [place] [address] Dr. Sarah Church EGFR-NON AF ICELANDIC >60 Normal >=60 [facility] Comment on above: Performed By: #### L IPID, CMP #### [facility] [address] [place] [address] Dr. Sarah Church Globulin (S) [Mass/Vol] 4.0 g/dL Normal [facility] Comment on above: Performed By: #### L IPID, CMP #### [facility] [address] [place] [address] Dr. Sarah Church Glucose [Mass/Vol] 255 mg/dL Critically high 74-106 [facility] Comment on above: Performed By: #### L IPID, CMP #### [facility] [address] [place] [address] Dr. Sarah Church Potassium [Moles/Vol] 3.6 mmol/L Normal 3.5-5.1 [facility] Comment on above: Performed By: #### L IPID, CMP #### [facility] [address] [address] [address] Sarah Church Protein [Mass/Vol] 7.3 g/dL Normal 6.4-8.2 [facility] Comment on above: Performed By: #### L IPID, CMP #### [facility] [address] [address] [address] Sarah Church Sodium [Moles/Vol] 139 mmol/L Normal 136-145 [facility] Comment on above: Performed By: #### L IPID, CMP #### [facility] [address] [place] [address] Dr. Sarah Church Urea nitrogen [Mass/Vol] 8.0 mg/dL Normal 7.0-18.0 [facility] Comment on above: Performed By: #### L IPID, CMP #### [facility] [address] [place] [address] Dr. Sarah Church Urea nitrogen/Creatinine [Mass ratio] 10.3 mg/mg Normal [facility] Comment on above: Performed By: #### L IPID, CMP #### [facility] [address] [place] [address] Dr. Sarah Church 37on 08-10-2022 37 -Start hydrochlorothiazide 12.5 mg in the morning -Check labs 1 week after starting new medication -Take blood pressure to appointment with Dr. Dela Cruz for correlation [facility] Office Visiton 08-10-2022 Follow-up visit [id number] Arlette Ramos 1970 F Date Provider Department Center 08/10/2022 [id number] BENITES [facility] No family history on file Level of Service:29207 [place] OFFICE/OUTPATIENT ESTABLISHED MOD MDM 30-39 MIN Reason for Visit and Comments: Coronary Artery Disease [187] Hypertension [986095] Normal [facility] MG MAMM SCREEN 3D ROB CADon 07-20-2022 MG MAMM SCREEN 3D ROB CAD Patient: ZOILA RAMOS Exam Date: 07/20/2022 : 1970 Gender:F Ordering : DR SHAYY DELA CRUZ M.D. Admission #: [id number] Family : Order #: [id number] CLICK HERE TO VIEW EXAM RADIOLOGY REPORT PROCEDURE: MAMMOGRAM SCREENING 3D BILATERAL CAD COMPARISON: MAMMO ROB SCREEN W CAD DIG, 05/16/2012. INDICATIONS: Screening mammography Calculator Name NCI Breast Cancer Risk Assessment Tool 5 Year Breast Cancer Risk 1.20% Lifetime Breast Cancer Risk 10.80% Personal Breast Cancer No Personal Ovarian Cancer No Treatments None Family Cancers None LOCATION: [facility] BREAST COMPOSITION: Almost entirely fatty. FINDINGS: [...] M.D. on 07/21/2022 at 08:24 Normal [facility] PROF CHEM 8 (BAS METB)on Anion gap [Moles/Vol] 14.5 mmol/L Normal [facility] Comment on above: Performed By: #### B MP #### [facility] [address] [address] [address] Sarah Church Calcium [Mass/Vol] 9.8 mg/dL Normal 8.5-10.1 [facility] Comment on above: Performed By: #### B MP #### [facility] [address] [address] [address] Sarah Church Chloride [Moles/Vol] 99 mmol/L Normal 98-107 [facility] Comment on above: Performed By: #### B MP #### [facility] [address] [address] [address] Sarah Church CO2 [Moles/Vol] 27.2 mmol/L Normal 21.0-32.0 [facility] Comment on above: Performed By: #### B MP #### [facility] [address] [place] [address] Dr. Sarah Church Creatinine [Mass/Vol] 0.80 mg/dL Normal 0.55-1.02 [facility] Comment on above: Performed By: #### B MP #### [facility] [address] [address] [address] Sarah Church EGFR-AF ICELANDIC >60 Normal >=60 [facility] Comment on above: Performed By: #### B MP #### [facility] [address] [place] [address] Dr. Sarah Church EGFR-NON AF ICELANDIC >60 Normal >=60 [facility] Comment on above: Performed By: #### B MP #### [facility] [address] [place] [address] Dr. Sarah Church Glucose [Mass/Vol] 458 mg/dL Critically high 74-106 [facility] Comment on above: Performed By: #### B MP #### [facility] [address] [address] [address] Sarah Church Potassium [Moles/Vol] 4.7 mmol/L Normal 3.5-5.1 [facility] Comment on above: Performed By: #### B MP #### [facility] [address] [place] [address] Dr. Sarah Church Sodium [Moles/Vol] 136 mmol/L Normal 136-145 [facility] Comment on above: Performed By: #### B MP #### [facility] [address] [place] [address] Dr. Sarah Church Urea nitrogen [Mass/Vol] 15.0 mg/dL Normal 7.0-18.0 [facility] Comment on above: Performed By: #### B MP #### [facility] [address] [place] [address] Dr. Sarah Church Urea nitrogen/Creatinine [Mass ratio] 18.8 mg/mg Normal [facility] Comment on above: Performed By: #### B MP #### [facility] [address] [place] [address] Dr. Sarah Church Orders Onlyon 06-04-2022 Orders Only [id number] RichardArlette crook erasmo Sidhu 1970 Provider [facility] 06/04/2022 Shila-JESSICA STONE MADELYN Robert [facility] No family history on file Normal [facility] 36on 06-01-2022 36 Patient called and [...] her high cholesterol . HELP!! lol Normal [facility] Orders Onlyon 06-01-2022 Orders Only [id number] RichardArlette crook erasmo Sidhu 1970 [facility] 06/01/[address] No family history on file [facility] 36on 05-28-2022 36 Spoke with flaca she states to call in script of losartan 25 mg QD Normal [facility] GLYCOHEMOGLOBIN A1Con 2022 ADA RECOMMENDATION SEE BELOW Normal [facility] Comment on above: Result Comment: ADA RECOMMENDED LIMIT 4.0 - 6.0 ADA THERAPEUTIC TARGET < 7.0 ACTION SUGGESTED > 7.0 Performed By: #### A 1C ####[facility] [address] [address]Dr. Sarah Church Glucose [Mass/Vol] 266 mg/dL Normal [facility] Comment on above: Performed By: #### A 1C ####[facility] [address] [place], [place] [address]Dc. Sarah Church HbA1c (Bld) [Mass fraction] 10.9 % Critically high 4.5-6.2 [facility] Comment on above: Performed By: #### A 1C ####[facility] [address] [address]Dr. Sarah Church Office Visiton 05-19-2022 Follow-up visit [id number] RichardArlette Sidhu 1970 F Date Provider Department Center 05/19/2022 MALCOLM SCHAFER CARD [facility] No family history on file Level of Service:52399 UT OFFICE/OUTPATIENT ESTABLISHED MOD MDM 30-39 MIN Reason for Visit and Comments: Coronary Artery Disease [187] Hyperlipidemia [182] Normal [facility] XR HIP RT 2 3V W [...] JAVAD ROB Date: 2022-04-06 21:15 Normal [facility] CBC AUTO DIFFon 11-05-2021 BASO # 0.1 103/ul Normal 0.0-0.1 [facility] Comment on above: Performed By: #### C BC #### [facility] [address] [place] [address] Dr. Sarah Church Basophils/100 WBC (Bld) 0.4 % Normal 0.2-2.0 [facility] Comment on above: Performed By: #### C BC #### [facility] [address] [place] [address] Dr. Sarah Church EO # 0.2 103/ul Normal 0.0-0.7 [facility] Comment on above: Performed By: #### C BC #### [facility] [address] [place] [address] Dr. Sarah Church Eosinophils/100 WBC (Bld) 1.3 % Normal 0.9-7.0 [facility] Comment on above: Performed By: #### C BC #### [facility] [address] [place] [address] Dr. Sarah Church Erythrocyte distribution width (RBC) [Ratio] 12.3 % Normal 11.0-15.0 [facility] Comment on above: Performed By: #### C BC #### [facility] [address] [place] [address] Dr. Sarah Church Hematocrit (Bld) [Volume fraction] 43.1 % Normal 36.0-48.0 [facility] Comment on above: Performed By: #### C BC #### [facility] [address] [place] [address] Dr. Sarah Church Hemoglobin (Bld) [Mass/Vol] 14.6 g/dL Normal 12.0-16.0 [facility] Comment on above: Performed By: #### C BC #### [facility] [address] [place] [address] Dr. Sarah Church IG # 0.04 10e3/ul Critically high 0.00-0.[address] [facility] Comment on above: Performed By: #### C BC #### [facility] [address] [place] [address] Dr. Sarah Church IG % 0.3 % Normal 0.0-0.5 [facility] Comment on above: Performed By: #### C BC #### [facility] [address] [place] [address] Dr. Sarah Church LYMPH # 1.6 103/ul Normal 1.2-3.8 [facility] Comment on above: Performed By: #### C BC #### [facility] [address] [place] [address] Dr. Sarah Church Lymphocytes/100 WBC (Bld) 12.5 % Critically low 20.5-60.0 [facility] Comment on above: Performed By: #### C BC #### [facility] [address] [place] [address] Dr. Sarah Church MANUAL DIFF REQ NO Normal [facility] Comment on above: Performed By: #### C BC #### [facility] [address] [place] [address] Dr. Sarah Church MCH (RBC) [Entitic mass] 29.4 pg Normal 26.7-34.0 [facility] Comment on above: Performed By: #### C BC #### [facility] [address] [place] [address] Dr. Sarah Church MCHC (RBC) [Mass/Vol] 33.9 g/dL Normal 29.9-35.2 [facility] Comment on above: Performed By: #### C BC #### [facility] [address] [place] [address] Dr. Sarah Church MCV (RBC) [Entitic vol] 86.7 fL Normal 81.0-99.0 [facility] Comment on above: Performed By: #### C BC #### [facility] [address] [place] [address] Dr. Sarah Church MONO # 1.0 103/ul Critically high 0.3-0.8 [facility] Comment on above: Performed By: #### C BC #### [facility] [address] [place] [address] Dr. Sarah Church Monocytes/100 WBC (Bld) 7.7 % Normal 1.7-12.0 [facility] Comment on above: Performed By: #### C BC #### [facility] [address] [place] [address] Dr. Sarah Church NEUT # 9.6 103/ul Critically high 1.4-6.5 [facility] Comment on above: Performed By: #### C BC #### [facility] [address] [place] [address] Dr. Sarah Church Neutrophils/100 WBC (Bld) 77.8 % Critically high 43.0-75.0 [facility] Comment on above: Performed By: #### C BC #### [facility] [address] [place] [address] Dr. Sarah Church Platelet mean volume (Bld) [Entitic vol] 11.0 fL Normal 9.5-13.5 [facility] Comment on above: Performed By: #### C BC #### [facility] [address] [place] [address] Dr. Sarah Church PLT 220 103/ul Normal 150-450 [facility] Comment on above: Performed By: #### C BC #### [facility] [address] [place] [address] Dr. Sarah Church RBC 4.97 106/ul Normal 4.20-5.40 [facility] Comment on above: Performed By: #### C BC #### [facility] [address] [address] [address] Sarah Church WBC 12.4 103/ul Critically high 4.0-11.0 [facility] Comment on above: Performed By: #### C BC #### [facility] [address] [place] [address] Dr. Sarah Church GROUP A STREP CULTUREon S. pyogenes Ag Ql (Unsp spec) Culture Observations: NEGATIVE FOR GROUP A STREPTOCOCCUS. Normal [facility] Comment on above: Performed By: #### G RASTCX, SSCRN ####[facility] [address] [address]Dr. Sarah Church POINT OF CARE GLUCOSEon Glucose [Mass/Vol] 214 mg/dL Critically high 74-106 [facility] Comment on above: Performed By: #### P OCGLUC #### [facility] [address] [place] [address] Dr. Sarah Church STREPT SCREENon 11-05-2021 STREP SCREEN A Negative Normal NEGATIVE [facility] Comment on above: Performed By: #### G RASTCX, SSCRN ####[facility] [address] [address]Dr. Sarah Church CBC AUTO DIFFon 10-16-2021 BASO # 0.1 103/ul Normal 0.0-0.1 [facility] Comment on above: Performed By: #### C BC #### [facility] [address] [place] [address] Dr. Sarah Church Basophils/100 WBC (Bld) 0.8 % Normal 0.2-2.0 [facility] Comment on above: Performed By: #### C BC #### [facility] [address] [place] [address] Dr. Sarah Church EO # 0.3 103/ul Normal 0.0-0.7 [facility] Comment on above: Performed By: #### C BC #### [facility] [address] [place] [address] Dr. Sarah Church Eosinophils/100 WBC (Bld) 3.4 % Normal 0.9-7.0 [facility] Comment on above: Performed By: #### C BC #### [facility] [address] [place] [address] Dr. Sarah Church Erythrocyte distribution width (RBC) [Ratio] 12.6 % Normal 11.0-15.0 [facility] Comment on above: Performed By: #### C BC #### [facility] [address] [place] [address] Dr. Sarah Church Hematocrit (Bld) [Volume fraction] 45.4 % Normal 36.0-48.0 [facility] Comment on above: Performed By: #### C BC #### [facility] [address] [place] [address] Dr. Sarah Church Hemoglobin (Bld) [Mass/Vol] 15.0 g/dL Normal 12.0-16.0 [facility] Comment on above: Performed By: #### C BC #### [facility] [address] [place] [address] Dr. Sarah Church IG # 0.02 10e3/ul Normal 0.00-0.03 [facility] Comment on above: Performed By: #### C BC #### [facility] [address] [place] [address] Dr. Sarah Church IG % 0.2 % Normal 0.0-0.5 [facility] Comment on above: Performed By: #### C BC #### [facility] [address] [place] [address] Dr. Sarah Church LYMPH # 2.7 103/ul Normal 1.2-3.8 [facility] Comment on above: Performed By: #### C BC #### [facility] [address] [place] [address] Dr. Sarah Church Lymphocytes/100 WBC (Bld) 31.0 % Normal 20.5-60.0 [facility] Comment on above: Performed By: #### C BC #### [facility] [address] [place] [address] Dr. Sarah Church MANUAL DIFF REQ NO Normal [facility] Comment on above: Performed By: #### C BC #### [facility] [address] [place] [address] Dr. Sarah Church MCH (RBC) [Entitic mass] 29.3 pg Normal 26.7-34.0 [facility] Comment on above: Performed By: #### C BC #### [facility] [address] [place] [address] Dr. Sarah Church MCHC (RBC) [Mass/Vol] 33.0 g/dL Normal 29.9-35.2 [facility] Comment on above: Performed By: #### C BC #### [facility] [address] [place] [address] Dr. Sarah Church MCV (RBC) [Entitic vol] 88.7 fL Normal 81.0-99.0 [facility] Comment on above: Performed By: #### C BC #### [facility] [address] [place] [address] Dr. Sarah Church MONO # 0.6 103/ul Normal 0.3-0.8 [facility] Comment on above: Performed By: #### C BC #### [facility] [address] [place] [address] Dr. Sarah Church Monocytes/100 WBC (Bld) 6.5 % Normal 1.7-12.0 [facility] Comment on above: Performed By: #### C BC #### [facility] [address] [place] [address] Dr. Sarah Church NEUT # 5.0 103/ul Normal 1.4-6.5 [facility] Comment on above: Performed By: #### C BC #### [facility] [address] [place] [address] Dr. Sarah Church Neutrophils/100 WBC (Bld) 58.1 % Normal 43.0-75.0 [facility] Comment on above: Performed By: #### C BC #### [facility] [address] [place] [address] Dr. Sarah Church Platelet mean volume (Bld) [Entitic vol] 11.0 fL Normal 9.5-13.5 [facility] Comment on above: Performed By: #### C BC #### [facility] [address] [address] [address] Sarah Church PLT 226 103/ul Normal 150-450 [facility] Comment on above: Performed By: #### C BC #### [facility] [address] [address] [address] Sarah Church RBC 5.12 106/ul Normal 4.20-5.40 [facility] Comment on above: Performed By: #### C BC #### [facility] [address] [address] [address] Sarah Church WBC 8.6 103/ul Normal 4.0-11.0 [facility] Comment on above: Performed By: #### C BC #### [facility] [address] [address] [address] Sarah Church GLYCOHEMOGLOBIN A1Con 2021 ADA RECOMMENDATION SEE BELOW Normal [facility] Comment on above: Result Comment: ADA RECOMMENDED LIMIT 4.0 - 6.0 ADA THERAPEUTIC TARGET < 7.0 ACTION SUGGESTED > 7.0 Performed By: #### A 1C ####[facility] [address] [address]Dr. Sarah Church Glucose [Mass/Vol] 275 mg/dL Normal [facility] Comment on above: Performed By: #### A 1C ####[facility] [address] [address]Dr. Sarah Church HbA1c (Bld) [Mass fraction] 11.2 % Critically high 4.5-6.2 [facility] Comment on above: Performed By: #### A 1C ####[facility] [address] [address]Dr. Sarah Church LIPID PROFILEon 10-16-2021 CHOL-HDL RATIO NORM SEE BELOW Normal [facility] Comment on above: Result Comment: 3.3 - 4.4 LOW RISK 4.4 - 7.1 AVERAGE RISK 7.1 - 11.0 MODERATE RISK >11.0 HIGH RISK Performed By: #### L IPID, CMP ####[facility] [address] [address]Dr. Sarah Church Cholesterol [Mass/Vol] 159 mg/dL Normal <=200 [facility] Comment on above: Performed By: #### L IPID, CMP ####[facility] [address] [address]Dr. Sarah Church Cholesterol in HDL [Mass/Vol] 41 mg/dL Normal 40-60 [facility] Comment on above: Performed By: #### L IPID, CMP ####[facility] [address] [address]Dr. Sarah Church Cholesterol in LDL [Mass/Vol] 102.6 mg/dL Normal [facility] Comment on above: Performed By: #### L IPID, CMP ####[facility] [address] [address]Dr. Corriebrenden Ranjit Cholesterol.total/C holesterol in HDL [Mass ratio] 3.9 {ratio} Normal [facility] Comment on above: Performed By: #### L IPID, CMP ####[facility] [address] [address]Dr. Sarah Church HDL NORMAL > or = 60 mg/dl - LO W CARDIOVASCULAR RISK <40 mg/dl - HIGH CARDIOVASCULAR RISK Normal [facility] Comment on above: Performed By: #### L IPID, CMP ####[facility] [address] [address]Dr. Sarah Church LDL CALC NORMAL SEE BELOW Normal [facility] Comment on above: Result Comment: <100 mg/dl OPTIMAL 100 - 129 mg/dl NEAR OR ABOVE OPTIMAL 130 - 159 mg/dl BORDERLINE HIGH 160 - 189 mg/dl HIGH >190 mg/dl VERY HIGH Performed By: #### L IPID, CMP ####[facility] [address] [address]Dr. Sarah Church Triglyceride [Mass/Vol] 77 mg/dL Normal <=150 [facility] Comment on above: Performed By: #### L IPID, CMP ####[facility] [address] [address]Dr. Sarah Church VLDL CALC 15.4 mg/dL Normal [facility] Comment on above: Performed By: #### L IPID, CMP ####[facility] [address] [address]Dr. Sarah Church MICROALBUMIN, RAND URon - mALB 2.0 mg/L Normal <=30.0 [facility] Comment on above: Performed By: #### M ALBR #### [facility] [address] [place], [place] [address] Dr. Sarah Church PROF 14(COMP METB)on 022 Albumin [Mass/Vol] 3.5 g/dL Normal 3.4-5.0 [facility] Comment on above: Performed By: #### L IPID, CMP ####[facility] [address] [address]Dr. Sarah Church Albumin/Globulin [Mass ratio] 0.8 {ratio} Normal [facility] Comment on above: Performed By: #### L IPID, CMP ####[facility] [address] [address]Dr. Sarah Church ALP [Catalytic activity/Vol] 85 U/L Normal 46-116 [facility] Comment on above: Performed By: #### L IPID, CMP ####[facility] [address] [address]Dr. Sarah Church ALT [Catalytic activity/Vol] 59 U/L Normal 14-59 [facility] Comment on above: Performed By: #### L IPID, CMP ####[facility] [address] [address]Dr. Sarah Church Anion gap [Moles/Vol] 15.1 mmol/L Normal [facility] Comment on above: Performed By: #### L IPID, CMP ####[facility] [address] [address]Dr. Sarah Church AST [Catalytic activity/Vol] 32 U/L Normal 15-37 [facility] Comment on above: Performed By: #### L IPID, CMP ####[facility] [address] [place], [place] [address]Dr. Sarah Church Bilirubin [Mass/Vol] 0.4 mg/dL Normal 0.2-1.0 [facility] Comment on above: Performed By: #### L IPID, CMP ####[facility] [address] [place], [place] [address]Dr. Sarah Church Calcium [Mass/Vol] 9.0 mg/dL Normal 8.5-10.1 [facility] Comment on above: Performed By: #### L IPID, CMP ####[facility] [address] [place], [place] [address]Dr. Sarah Church Chloride [Moles/Vol] 102 mmol/L Normal 98-107 [facility] Comment on above: Performed By: #### L IPID, CMP ####[facility] [address] [place], [place] [address]Dr. Sarah Church CO2 [Moles/Vol] 30.2 mmol/L Normal 21.0-32.0 [facility] Comment on above: Performed By: #### L IPID, CMP ####[facility] [address] [place], [place] [address]Dr. Sarah Church Creatinine [Mass/Vol] 0.81 mg/dL Normal 0.55-1.02 [facility] Comment on above: Performed By: #### L IPID, CMP ####[facility] [address] [place], [place] [address]Dr. Sarah Church EGFR-AF ICELANDIC >60 Normal >=60 [facility] Comment on above: Performed By: #### L IPID, CMP ####[facility] [address] [place], [place] [address]Dr. Corriebrenden Church EGFR-NON AF ICELANDIC >60 Normal >=60 [facility] Comment on above: Performed By: #### L IPID, CMP ####[facility] [address] [place], [place] [address]Dr. Sarah Church Globulin (S) [Mass/Vol] 3.9 g/dL Normal [facility] Comment on above: Performed By: #### L IPID, CMP ####[facility] [address] [place], [place] [address]Dr. Corriebrenden Church Glucose [Mass/Vol] 218 mg/dL Critically high 74-106 T [facility] Comment on above: Performed By: #### L IPID, CMP ####[facility] [address] [place], [place] [address]Dr. Sarah Church Potassium [Moles/Vol] 4.3 mmol/L Normal 3.5-5.1 [facility] Comment on above: Performed By: #### L IPID, CMP ####[facility] [address] [place], [place] [address]Dr. Sarah Church Protein [Mass/Vol] 7.4 g/dL Normal 6.4-8.2 [facility] Comment on above: Performed By: #### L IPID, CMP ####[facility] [address] [place], [place] [address]Dr. Sarah Church Sodium [Moles/Vol] 143 mmol/L Normal 136-145 [facility] Comment on above: Performed By: #### L IPID, CMP ####[facility] [address] [place], [place] [address]Dr. Sarah Church Urea nitrogen [Mass/Vol] 14.0 mg/dL Normal 7.0-18.0 [facility] Comment on above: Performed By: #### L IPID, CMP ####[facility] [address] [place], [place] [address]Dr. Sarah Church Urea nitrogen/Creatinine [Mass ratio] 17.2 mg/mg Normal [facility] Comment on above: Performed By: #### L IPID, CMP ####[facility] [address] [place], [place] [address]Dr. Sarah Church Vital Signs Date Time Vital Sign Value Performing Clinician Facility 02-23-2024 13:23-0400 Body height 157.48 cm [facility] 02-23-2024 13:23-0400 Body mass index (BMI) [Ratio] 38 kg/m2 [facility] 02-23-2024 13:23-0400 Body weight 94.37 kg [facility] 02-23-2024 13:23-0400 Diastolic blood pressure 78 mm[Hg] [facility] 02-23-2024 13:23-0400 Heart rate 75 /min [facility] 02-23-2024 13:23-0400 Respiratory rate 18 /min [facility] 02-23-2024 13:23-0400 SaO2% (BldA) [Mass fraction] 97 % [facility] 02-23-2024 13:23-0400 Systolic blood pressure 170 mm[Hg] [facility] 12-13-2023 13:03-0400 Body height 157.48 cm [facility] 12-13-2023 13:03-0400 Body mass index (BMI) [Ratio] 37.1 kg/m2 [facility] 12-13-2023 13:03-0400 Body weight 92.07 kg [facility] 12-13-2023 13:03-0400 Diastolic blood pressure 86 mm[Hg] [facility] 12-13-2023 13:03-0400 Heart rate 78 /min [facility] 12-13-2023 13:03-0400 Respiratory rate 18 /min [facility] 12-13-2023 13:03-0400 SaO2% (BldA) [Mass fraction] 96 % [facility] 12-13-2023 13:03-0400 Systolic blood pressure 153 mm[Hg] [facility] 12-05-2023 11:24-0400 Body height 157.48 cm [facility] 12-05-2023 11:24-0400 Body mass index (BMI) [Ratio] 36.9 kg/m2 [facility] 12-05-2023 11:24-0400 Body weight 91.62 kg [facility] 12-05-2023 11:24-0400 Diastolic blood pressure 75 mm[Hg] [facility] 12-05-2023 11:24-0400 Heart rate 80 /min [facility] 12-05-2023 11:24-0400 Systolic blood pressure 133 mm[Hg] [facility] 09-29-2023 13:44-0400 Diastolic blood pressure 76 mm[Hg] [facility] 09-29-2023 13:44-0400 Systolic blood pressure 130 mm[Hg] [facility] 09-29-2023 13:19-0400 Body height 157.48 cm [facility] 09-29-2023 13:19-0400 Body mass index (BMI) [Ratio] 38.7 kg/m2 [facility] 09-29-2023 13:19-0400 Body weight 95.9 kg [facility] 09-29-2023 13:19-0400 Heart rate 89 /min [facility] 09-29-2023 13:19-0400 Respiratory rate 18 /min [facility] 09-29-2023 13:19-0400 SaO2% (BldA) [Mass fraction] 98 % [facility] 09-06-2023 11:08-0400 Body height 157.48 cm [facility] 09-06-2023 11:08-0400 Body mass index (BMI) [Ratio] 37.6 kg/m2 [facility] 09-06-2023 11:08-0400 Body weight 93.44 kg [facility] 09-06-2023 11:08-0400 Diastolic blood pressure 72 mm[Hg] [facility] 09-06-2023 11:08-0400 Heart rate 89 /min [facility] 09-06-2023 11:08-0400 Systolic blood pressure 127 mm[Hg] [facility] 08-24-2023 15:08-0400 Body height 157.48 cm [facility] 08-24-2023 15:08-0400 Body mass index (BMI) [Ratio] 37.5 kg/m2 [facility] 08-24-2023 15:08-0400 Body weight 93.21 kg [facility] 08-19-2023 10:43-0400 Body height 157.48 cm MD Shayy Dela Cruz Work Phone: [facility] 08-19-2023 10:43-0400 Body mass index (BMI) [Ratio] 37.5 kg/m2 MD Shayy Dela Cruz Work Phone: [facility] 08-19-2023 10:43-0400 Body weight 93.09 kg MD Shayy Dela Cruz Work Phone: [facility] 08-19-2023 10:43-0400 Diastolic blood pressure 79 mm[Hg] MD Shayy Dela Cruz Work Phone: [facility] 08-19-2023 10:43-0400 Heart rate 83 /min MD Shayy Dela Cruz Work Phone: [facility] 08-19-2023 10:43-0400 Systolic blood pressure 135 mm[Hg] MD Shayy Dela Cruz Work Phone: [facility] 07-28-2023 14:22-0400 Body height 157.48 cm MD Shayy Dela Cruz Work Phone: [facility] 07-28-2023 14:22-0400 Body mass index (BMI) [Ratio] 37.6 kg/m2 MD Shayy Dela Cruz Work Phone: [facility] 07-28-2023 14:22-0400 Body weight 93.44 kg MD Shayy Dela Cruz Work Phone: [facility] 07-28-2023 14:22-0400 Diastolic blood pressure 84 mm[Hg] MD Shayy Dela Cruz Work Phone: [facility] 07-28-2023 14:22-0400 Heart rate 83 /min MD Shayy Dela Cruz Work Phone: [facility] 07-28-2023 14:22-0400 Respiratory rate 18 /min MD Shayy Dela Cruz Work Phone: [facility] 07-28-2023 14:22-0400 SaO2% (BldA) [Mass fraction] 97 % MD Shayy Dela Cruz Work Phone: [facility] 07-28-2023 14:22-0400 Systolic blood pressure 140 mm[Hg] MD Shayy Dela Cruz Work Phone: [facility] 07-19-2023 10:57-0400 Body height 157.48 cm MD Shayy Dela Cruz Work Phone: [facility] 07-19-2023 10:57-0400 Body mass index (BMI) [Ratio] 37.1 kg/m2 MD Shayy Dela Cruz Work Phone: [facility] 07-19-2023 10:57-0400 Body weight 92.07 kg MD Shayy Dela Cruz Work Phone: [facility] 07-19-2023 10:57-0400 Diastolic blood pressure 68 mm[Hg] MD Shayy Dela Cruz Work Phone: [facility] 07-19-2023 10:57-0400 Heart rate 89 /min MD Shayy Dela Cruz Work Phone: [facility] 07-19-2023 10:57-0400 Systolic blood pressure 132 mm[Hg] MD Shayy Dela Cruz Work Phone: [facility] 05-25-2023 11:00-0500 Body height 157.48 cm Cathie Scally Other [facility] 05-25-2023 11:00-0500 Body mass index (BMI) [Ratio] 37.23 kg/m2 Cathie Scally Other [facility] [employer] Other 05-25-2023 11:00-0500 Body weight 92.35 kg Cathie Scally Other [facility] 05-25-2023 11:00-0500 Diastolic blood pressure 71 mm[Hg] Cathie Scally Other [facility] 05-25-2023 11:00-0500 Respiratory rate 18 /min Cathie Scally Other [facility] [employer] Other 05-25-2023 11:00-0500 SaO2% (BldA) [Mass fraction] 95 % Cathie Vargas Other [facility] [employer] Other 05-25-2023 11:00-0500 Systolic blood pressure 139 mm[Hg] Cathie Vargas Other [facility] 04-15-2023 11:00-0500 Body height 157.48 cm Shayy Dela Cruz Other [facility] 04-15-2023 11:00-0500 Body mass index (BMI) [Ratio] 37.49 kg/m2 Shayy Dela Cruz Other [facility] [email or web address] Other 04-15-2023 11:00-0500 Body weight 92.99 kg Shayy Dela Cruz Other [facility] [employer] Other 04-15-2023 11:00-0500 Body weight 92.98 kg MD Shayy Dela Cruz Work Phone: [facility] 04-15-2023 11:00-0500 Diastolic blood pressure 84 mm[Hg] Shayy Dela Cruz Other [facility] 04-15-2023 11:00-0500 Systolic blood pressure 142 mm[Hg] Shayy Dela Cruz Other [facility] 06-22-2022 13:30-0500 Body height 157.48 cm Shayy Dela Cruz Other [employer] Other 06-22-2022 13:30-0500 Body mass index (BMI) [Ratio] 36.94 kg/m2 Shayy Dela Cruz Other [employer] Other 06-22-2022 13:30-0500 Body weight 91.63 kg Shayy Dela Cruz Other [employer] Other 06-22-2022 13:30-0500 Diastolic blood pressure 74 mm[Hg] Shayy Dela Cruz Other [employer] Other 06-22-2022 13:30-0500 SaO2% (BldA) [Mass fraction] 97 % Shayy Dela Cruz Other [employer] Other 06-22-2022 13:30-0500 Systolic blood pressure 112 mm[Hg] Shayy Dela Cruz Other [employer] Other Encounters Encounter Date Encounter Type Care Provider Facility Start: 02-23-2024 End: 02-23-2024 ambulatory Cathie Vargas [facility] Work Phone: Start: 02-23-2024 End: 02-23-2024 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 Work Phone: Start: 01-17-2024 End: 01-17-2024 ambulatory [facility] Work Phone: Start: 01-17-2024 End: 01-17-2024 Patient encounter procedure [facility] Work Phone: Start: 12-13-2023 End: 12-13-2023 ambulatory [facility] Work Phone: Start: 12-13-2023 End: 12-13-2023 Patient encounter procedure [facility] Work Phone: Start: 12-05-2023 End: 12-05-2023 ambulatory [facility] Work Phone: Start: 12-05-2023 End: 12-05-2023 Patient encounter procedure [facility] Work Phone: Start: 11-07-2023 End: 11-07-2023 ambulatory [facility] Work Phone: Start: 11-07-2023 End: 11-07-2023 Patient encounter procedure [facility] Work Phone: Start: 09-29-2023 End: 09-29-2023 ambulatory [facility] Work Phone: Start: 09-29-2023 End: 09-29-2023 Patient encounter procedure [facility] Work Phone: Start: 09-06-2023 End: 09-06-2023 ambulatory [facility] Work Phone: Start: 09-06-2023 End: 09-06-2023 Patient encounter procedure [facility] Work Phone: Start: 08-24-2023 End: 08-24-2023 ambulatory [facility] Work Phone: Start: 08-24-2023 End: 08-24-2023 Patient encounter procedure [facility] Work Phone: Start: 08-19-2023 End: 08-19-2023 ambulatory MD Shayy Dela Cruz Work Phone: [facility] Work Phone: Start: 08-19-2023 End: 08-19-2023 Patient encounter procedure MD Shayy Dela Cruz Work Phone: [facility] Work Phone: Start: 07-28-2023 End: 07-28-2023 ambulatory MD Shayy Dela Cruz Work Phone: [facility] Work Phone: Start: 07-28-2023 End: 07-28-2023 Patient encounter procedure MD Shayy Dela Cruz Work Phone: [facility] Work Phone: Start: 07-19-2023 End: 07-19-2023 ambulatory MD Shayy Dela Cruz Work Phone: [facility] Work Phone: Start: 07-19-2023 End: 07-19-2023 Patient encounter procedure MD Shayy Dela Cruz Work Phone: [facility] Work Phone: Start: 07-12-2023 Non-patient / Non-visit MD Shayy Dela Cruz Work Phone: [facility] [employer] Work Phone: Start: 06-14-2023 End: 06-14-2023 Patient encounter procedure MD Shayy Dela Cruz Work Phone: [facility] Work Phone: Start: 06-14-2023 End: 06-14-2023 ambulatory MD Shayy Dela Cruz Work Phone: [facility] Work Phone: Start: 06-06-2023 End: 06-06-2023 ambulatory Shayy Dela Cruz Other [employer] Other Start: 06-06-2023 Telephone encounter Shayy Dela Cruz [facility] Start: 05-25-2023 FQHC visit new patient Cathie Sheikh y [facility] Start: 05-25-2023 End: 05-25-2023 ambulatory MD Shayy Dela Cruz Work Phone: [employer] Other Start: 05-25-2023 End: 05-25-2023 Discharged Recurring MD Shayy Dela Cruz Work Phone: [facility] Work Phone: Start: 05-25-2023 Registered Recurring MD Shayy Dela Cruz Work Phone: [facility] Work Phone: Start: 05-25-2023 End: 05-25-2023 Patient encounter procedure MD Shayy Dela Cruz Work Phone: [facility]- Start: 05-12-2023 End: 05-12-2023 ambulatory Shayy Dela Cruz Other [employer] Other Start: 05-12-2023 Telephone encounter Shayy Dela Cruz [facility] Start: 05-10-2023 End: 05-10-2023 ambulatory Shayy Dela Cruz Other [employer] Other Start: 05-10-2023 Telephone encounter Shayy Dela Cruz [facility] Start: 04-22-2023 End: 04-22-2023 ambulatory Shayy Dela Cruz Other [employer] Other Start: 04-22-2023 Telephone encounter Shayy Dela Cruz [facility] Start: 04-20-2023 End: 04-20-2023 ambulatory Lynne Hernandez Other [employer] Other Start: 04-20-2023 Telephone encounter Lynne Avilat [facility] Start: 04-18-2023 End: 04-18-2023 ambulatory Lynne Avilat Other [employer] Other Start: 04-18-2023 Telephone encounter Lynne Avilat [facility] Start: 04-15-2023 End: 04-15-2023 ambulatory Shayy Dela Cruz Other [employer] Other Start: 04-15-2023 Office outpatient visit 15 minutes Shayy Dela Cruz [facility] Start: 04-15-2023 End: 04-15-2023 Patient encounter procedure MD Shayy Dela Cruz Work Phone: [facility] Work Phone: Start: 04-06-2023 End: 04-06-2023 ambulatory Shayy Dela Cruz Other [employer] Other Start: 04-06-2023 Telephone encounter Shayy Dela Cruz [facility] Start: 02-25-2023 End: 02-25-2023 ambulatory Shayy Dela Cruz Other [employer] Other Start: 02-25-2023 Telephone encounter Shayy Dela Cruz [facility] Start: 12-13-2022 End: 12-13-2022 ambulatory [facility] Start: 10-29-2022 End: 10-29-2022 ambulatory Shayy Dela Cruz Other [employer] Other Start: 10-29-2022 Telephone encounter Shayy Dela Cruz [facility] Start: 08-27-2022 End: 08-28-[address] SHAYY DELA CRUZ Facility:[facility] Start: 08-10-2022 End: 08-10-2022 ambulatory [facility] Start: 07-20-2022 End: 07-21-[address] SHAYY DELA CRUZ Facility:[facility] Start: 07-19-2022 End: 07-19-2022 ambulatory Shayy Dela Cruz Other [employer] Other Start: 07-19-2022 Telephone encounter Shayy Dela Cruz [facility] Start: 07-12-2022 End: 07-13-[address] SHAYY DELA CRUZ Facility:[facility] Start: 07-05-2022 End: 07-05-2022 ambulatory Shayy Dela Cruz Other [employer] Other Start: 07-05-2022 Telephone encounter Shayy Dela Cruz [facility] Start: 06-28-2022 End: 06-28-2022 ambulatory Shayy Dela Cruz Other [employer] Other Start: 06-28-2022 Telephone encounter Shayy Dela Cruz [facility] Start: 06-22-2022 End: 06-22-2022 ambulatory Shayy Dela Cruz Other [employer] Other Start: 06-22-2022 Office outpatient visit 15 minutes Shayy Dela Cruz [facility] Start: 05-27-2022 End: 05-27-2022 ambulatory Shayy Dela Cruz Other [employer] Other Start: 05-27-2022 Telephone encounter Shayy Dela Cruz [facility] Start: 05-19-2022 End: 05-20-[address] [...] Start: 05-10-2017 End: 05-11-2017 Ambulatory DEFAULT PHYSICIAN Facility:[facility] Start: 05-05-2017 End: 05-06-2017 Ambulatory DEFAULT PHYSICIAN Facility:[facility] Procedures Date Procedure Procedure Detail Performing Clinician Start: 12-13-2022 Follow-up visit Follow-up MARQUES MOROCHO Plan of Treatment Date Care Activity Detail Author Comprehensive metabo lic 2000 panel - Serum or Plasma [facility] enter MG Breast - bilateral Screening [facility] Immunizations Immunization Date Immunization Notes Care Provider Fa cility 02-01-2022 influenza virus vaccine, split virus (incl. purified surface antigen) Shayy Dela Cruz Other [employer] Other 02-01-2022 influenza virus vaccine, unspecified formulation MD Shayy Dela Cruz Work Phone: [facility] Payers Date Payer Category Payer Medicare [id number] 2023 Self-pay 2021 Medicaid [id number] 2017 Unknown [id number] 1972 Unknown [id number] 2.16.84 [id number] 1972 Unknown [id number] 2.16.84 [id number] 1972 Unknown [id number] 2.16.84 [id number] 1972 Unknown [id number] 2.16.84 [id number] 1972 Unknown [id number] 2.16.84 [id number] 1972 Unknown [id number] 2.16.84 [id number] 1972 Unknown [id number] 2.16.84 [id number] 1972 Unknown [id number] 2.16.84 [id number] 1972 Unknown [id number] 2.16.84 [id number] 1957 Medicaid [id number] 2. [id number] 1957 Medicare [id number] . [id number] Unknown Unknown [id number] 2.16.8 [id number] Unknown [id number] 2.16.8 [id number] Social History Date Type Detail Facility Unknown if ever smoked [employer] Other Sex Assigned At Sex Assigned At Bir th [employer] Other Start: 1970 Sex Assigned At Female F [facility] Start: 07-19-2023 Tobacco smoking status NHIS Never smoked tobacco (finding) [facility] Medical Equipment Procedure Code Equipment Code Equipment [...] 2 diabetes mellitus with hyperglycemia, unspecified whether usp insulin use (ICD-10 - E11.65) [facility] [email or web address] Other 01-24-2024 Evaluation note* Encounter Date Diagnosis [...] Instructions material was published to portal May, senior care current use of insulin (ICD-10 - Z79.4) May, BMI 37.0-37.9, adult (ICD-10 - Z68.37) May, Other 05/25/2023 The patient was given a Dexcom G7 sensor sample and an [employer] [place]. She was taught how to use the [...] educating the patient by Nguyễn Norwood RN, [facility][NOTE 3]. [employer] Other 12-15-2023 Evaluation note* Encounter Date Diagnosis Assessment Notes Treatment Notes Treatment Clinical Notes Apr, Type 2 diabetes mellitus with hyperglycemia (ICD-10 - E11.65) Rx handwritten for diabetic shoes. Pt agrees to referral to specialty clinic. Continue present meds and discussed healthy diet in meantime. Apr, senior care (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 of insulin (ICD-10 - Z79.4) [employer] Other 08-14-2023 NoteCardiology Clinic Note Subjective Zoila [...] Active Problem List Diagnosis Coronary arteriosclerosis in [place] artery Old myocardial infarction Sinusitis Type 1 [...] the IVC. Mitral V (more content not included)...[facility] 08-10-2022 NoteCardiology Clinic Note Subjective Zoila [...] Active Problem List Diagnosis Coronary arteriosclerosis in [place] artery Old myocardial infarction Sinusitis Type 1 [...] in size. The (more content not included)... [facility]02-21-2023 Evaluation note* Encounter Date Diagnosis Assessment Notes Treatment Notes Treatment Clinical Notes Jun, Acute non-recurrent maxillary sinusitis (ICD-10 - J01.00) Jun, Controlled type 2 diabetes mellitus with hyperglycemia, unspecified whether intermission coordinator insulin use (ICD-10 - E11.65) Once again advised management at diabetes clinic. She declines and will continue meds, followup in 3 months, and recheck labs at that time. She is eating more of a keto diet and is certain that is helping her A1C improve. Jun, Screening mammogram for breast cancer (ICD-10 - Z12.31) Zoila will call for an [employer] Other 01-31-2023 NoteIn light of elevated LDL will change simvastatin to lipitor 40 mg daily. Will repeat liver function and lipid level in 2 months. Staff to notify pt. Malcolm Evans LEARNING AND DEVELOPMENT DIRECTOR Division of Cardiology, [facility]- [phone] Pager- [phone] Email- [email or web address]01-18-2023 NotePatient here for 1 year follow [...] light-headedness. All other systems reviewed and are negative.[facility] 05-19-2022 NoteUTP CARDIOLOGY PROGRESS NOTE HPI: [...] past 12 months Assessment/Plan: Coronary arteriosclerosis in [place] artery Coronary artery disease is stable, no [...] week RTC 1 month to review B/P [facility]01-18-2023 Note Hypertension is uncontrolled, Will add lisinopril 5 mg po daily, and continue metoprolol Goal b/p 130/80 or less, monitor for dry persistent cough- call office for any concerns, repeat BMP in 1 week RTC 1 month to review B/P [facility]01-18-2023 Note Coronary artery disease is stable, no concerning symptoms continue risk factor modifications- heart healthy diet, regular exercise as tolerated and continue all medications.[facility] 04-15-2022 NotePROCEDURE: XR FOOT LT MIN [...] Electronically authenticated by: NARINDER LAN Date: 2022-04-15 06:08[facility]09-12-2022 NotePROCEDURE: XR TOES RT MIN 2 V HISTORY: Pain of toe of right foot ; first toe pain following injury COMPARISON: None. FINDINGS: BONES:No fracture, acute abnormality, or significant arthropathy. SOFT TISSUES:No visible soft tissue swelling. EFFUSION:None visible. OTHER: Negative. IMPRESSION: 1. No acute bone abnormality. 2. Mild degenerative joint disease. Electronically authenticated by: NARINDER LAN Date: 2022-01-11 18:48[facility]Reason for visit Narrative* Chief Complaint 3 Month Follow Up Referral Dr. Nergo Dela Cruz DM download [facility] Work Phone: chief complaint+Reason for visit Narrative* Chief Complaint 3 Month Follow Up Referral Dr. Negro Dela Cruz DM download Reason for Visit Type 2 diabetes holli [facility] Work Phone: chief complaint+Reason for visit Narrative* Chief Complaint Referral Dr. Negro LAGUERRE download 3 Month Check up Reason for Visit Type 2 diabetes holli [facility] Work Phone: chief complaint+Reason for visit Narrative* Chief Complaint Referral Dr. Negro [place] download 3 Month Check up amrik reader Reason for Visit Type 2 diabetes holli itus Right wrist fracture Type 2 diabetes mellitus [facility] Work Phone: chief complaint+Reason for [...] mellitus Vitamin D deficiency Gastroesophageal reflux disease [facility] Work Phone: Evaluation noteNo InformationNort [email or web address] Other Evaluation noteNo assessment information available [facility] Work Phone: Evaluation note* Diagnosis Onset Date Resolution Status Type 2 diabetes mellitus acu te [facility] Work Phone: Evaluation note* Diagnosis Onset Date Resolution Status Type 2 diabetes mellitus acu te Right wrist fracture acute Type 2 diabetes mellitus acu te [facility] Work Phone: Evaluation note* Diagnosis [...] D deficiency acute Gastroesophageal reflux disease acute [facility] Work Phone: evaluation note* Diagnosis Onset Date [...] acute Type 2 diabetes mellitus acu te [facility] Work Phone: evaluation note* Diagnosis Onset Date [...] acute Type 2 diabetes mellitus acu te [facility] Work Phone: evaluation note* Diagnosis Onset Date [...] acute Type 2 diabetes mellitus acu te [facility] Work Phone: evaluation note* Diagnosis Onset Date [...] te Screening mammogram for breast cancer acute [facility] Work Phone: evaluation note* Diagnosis Onset Date [...] mellitus acu te Vitamin D deficiency acute [facility] Work Phone: Evaluation note* Diagnosis [...] acute Type 2 diabetes mellitus acu te [facility] Work Phone: Evaluation note* Diagnosis [...] mellitus acu te Vitamin D deficiency acute [facility] Work Phone: Hismatq general Narrative - Reported* Type Description Date Medical History Herpes labialis Medical History Candidiasis of mouth Medical History Type 2 diabetes holli itus with diabetic polyneuropathy, unspecified whether intermission coordinator insulin use Medical History Controlled type 2 di abetes mellitus with hyperglycemia, unspecified whether usp insulin use Medical History Obesity Medical History Dyslipidemia Medical History CAD in [place] artery Medical History Asthma, intermittent Medical History [...] History appendectomy Surgical History 7 stents 1999 [facility] Other Hisyvra general Narrative - Reported* Type Description Date Medical History Herpes labialis Medical History Candidiasis of mouth Medical History Type 2 diabetes holli itus with diabetic polyneuropathy, unspecified whether usp insulin use Medical History Controlled type 2 di abetes mellitus with hyperglycemia, unspecified whether usp insulin use Medical History Obesity Medical History Dyslipidemia Medical History CAD in [place] artery Medical History Asthma, intermittent Medical History [...] stents 1999 Hospitalization History see surgical history [facility] Other History general Narrative - Reported* Type Description Date Medical History Herpes labialis Medical History Candidiasis of mouth Medical History Type 2 diabetes holli itus with diabetic polyneuropathy, unspecified whether usp insulin use Medical History Controlled type 2 di abetes mellitus with hyperglycemia, unspecified whether usp insulin use Medical History Obesity Medical History Dyslipidemia Medical History CAD in [place] artery Medical History Asthma, intermittent Medical History [...] coronary 1999 Hospitalization History see surgical history [facility] Other Summary Purpose Family History No Family [...] itus with hyperglycemia (E11.65) Referral Organization [facility] Karli fuchs Referring Provider First Name Shayy Referring Provider Last Name Jose De Jesus Referring Provider Specialty [facility] Referred Organization [facility] Referred Provider Marcia Mendes Referred Address [address],[place], [place],[address] Referred Provider Specialty Nurse Huey saldaña Referral [...] and content) DATE CREATED AUTHOR 10/25/2017 [facility] DATE CREATED AUTHOR AUTHOR'S ORGANIZ ATION 09/03/2022 [facility] DATE CREATED AUTHOR AUTHOR'S ORGANIZ ATION 12/13/2022 [facility] DATE CREATED AUTHOR AUTHOR'S ORGANIZ ATION 02/25/2024 [facility] REASON FOR VISIT (unrecogniz ed section and content) labsmessage3 MONTH FOLLOW UP ACrefillmessagemessageRefill3 month Follow upDM [id number] ReferralrefillsNo InformationRefillReferral Dr. Negro Gallegos sensor running [...] Status: Inactive Member Role Status Dates Shayy Del aCruz MD Primary Care Provider Active Start: August [...] BE BASED ON THE PRIMARY CLINICAL RECORDS. [facility] provides no warranty or guarantee of the accuracy or completeness of information in this document.
--- NOTE | 2024-04-19 21:31 | XR_ITS ---
[facility] [place] [id number] Patient Name: COLETTE DINH MRN: [id number] date: 1970 Sex: F Assigned Patient Location: ED.MAIN Current Patient Location: Accession/Order Number: [id number] Exam Date: 04/19/2024 21:45 Report Date: 04/19/2024 22:59 At the request of: IRENE WASHBURN Procedure: XR foot LT min 3V EXAMINATION: XR foot LT min 3V, , 04/19/2024 9:45 PM EST INDICATION: second toe injury HISTORY: Ordering Provider Reason for Exam: second toe injury Technologist Note: Additional: COMPARISON: None. TECHNIQUE: Left foot x-ray: 3 view(s). FINDINGS: Acute comminuted mild displaced fracture of the distal phalanx of the second toe is seen with tiny fracture fragments. Joint alignment is anatomic. Joint spaces are preserved. Soft tissues are within normal limits. XR/XR foot LT min 3V IMPRESSION: Acute comminuted mild displaced fracture of the distal phalanx of the second toe is seen with tiny fracture fragments. Electronically authenticated by: JAVAD ROB Date: 04/19/2024 22:59
--- NOTE | 2024-04-19 21:34 | ED.LOWEXI1 ---
HPI HPI - Extremity Injury (Lower) General Chief Complaint: Extremity Injury, Lower Stated Complaint: LE INJURY Time Seen by Provider: 04/19/24 21:21 Source: patient Mode of arrival: walk-in Limitations: no limitations History of Present Illness HPI Narrative: 54-year-old female presents for pain to her left second toe. She states she injured it last night when she was trying to stand on her toes to reach something. She felt sudden onset of pain in the second toe. She did not fall. The pain is moderate and worse if she touches it. Related Data Home Medications ?Medication ?Instructions ?Recorded ?Confirmed albuterol sulfate 90 mcg/actuation 2 inh inhalation PRN PRN shortness 12/31/22 04/19/24 aerosol inhaler of breath or wheezing aspirin 81 mg capsule 81 mg PO DAILY 12/31/22 04/19/24 atorvastatin 40 mg tablet 40 mg PO DAILY 12/31/22 04/19/24 carvedilol 6.25 mg tablet 6.25 mg PO Q12H 12/31/22 04/19/24 esomeprazole magnesium 40 mg 40 mg PO Q24H 12/31/22 04/19/24 capsule,delayed release fluticasone propionate 110 3 puff inhalation PRN PRN 12/31/22 04/19/24 mcg/actuation HFA aerosol inhaler bronchospasm (Flovent HFA) glipizide 10 mg tablet 10 mg PO BID 12/31/22 04/19/24 hydrochlorothiazide 12.5 mg capsule 12.5 mg PO DAILY 12/31/22 04/19/24 insulin glargine U-300 conc 300 unit subcut 12/31/22 unit/mL (1.5 mL) subcutaneous pen (Bill Astudillo U-300 Insulin) insulin lispro 100 unit/mL subcut 12/31/22 subcutaneous pen losartan 25 mg tablet 25 mg PO DAILY 12/31/22 04/19/24 metformin 1,000 mg tablet 500 mg PO BID 12/31/22 04/19/24 famotidine 20 mg tablet mg 04/19/24 meloxicam 15 mg tablet mg 04/19/24 nitroglycerin 0.4 mg sublingual mg 04/19/24 tablet Previous Rx's ?Medication ?Instructions ?Recorded ibuprofen 600 mg tablet 600 mg PO TID PRN pain #30 tabs 09/04/23 amoxicillin 875 mg-potassium 1 tab PO BID #14 tabs 04/19/24 clavulanate 125 mg tablet Allergies Allergy/AdvReac Type Severity Reaction Status Date / Time tomato Allergy Severe Nausea Verified 04/19/24 21:36 latex Allergy Intermediate itch Verified 04/19/24 21:36 insulin lispro Allergy Mild Rash Verified 04/19/24 21:36 codine AdvReac Intermediate Vomiting Uncoded 04/19/24 21:36 Opioid HPI Opioid Management Most Recent Pain and Opioid Data: Last Pain Scale 9 02/27/24 10:47 02/27/24 Review of Systems ROS Narrative A ten point review of systems is negative except as noted above. PFSH PFSH Social History Smoking status: Never smoker Little interest or pleasure in doing things: not at all Feeling down, depressed, or hopeless: not at all Exam Narrative Exam Narrative: Nurses note and vital signs reviewed and patient is not hypoxic. General: The patient appears well and in no apparent distress. Patient is resting comfortably on cart. Skin: Warm, dry, no pallor noted. There is no rash noted. Head: Normocephalic, atraumatic Eye: Normal conjunctiva, no drainage Ears, Nose, Mouth, and Throat: oral mucosa is moist. Nares patent. Cardiovascular: Regular Rate and Rhythm Respiratory: Patient is in no distress, no accessory muscle use, lungs are clear to auscultation, no wheezing, rales or rhonchi Back: non-tender GI: Soft and nontender Musculoskeletal: Her left foot is examined. There is swelling and bruising and some erythema at the distal aspect of her second toe. Skin is intact. No drainage. The other toes are not tender. Neurological: A&O, normal speech Psychiatric: Cooperative Constitutional Vital Signs, click to edit/add: Last Vital Signs Temp 98.3 F 04/19/24 21:22 Pulse 106 H 04/19/24 21:22 Resp 20 04/19/24 21:22 BP 180/99 H 04/19/24 21:22 Pulse Ox 96 04/19/24 21:22 O2 Del Method Room Air 04/19/24 21:22 Course Vital Signs Vital signs: Vital Signs Temperature 98.3 F 04/19/24 21:22 Pulse Rate 106 H 04/19/24 21:22 Respiratory Rate 20 04/19/24 21:22 Blood Pressure 180/99 H 04/19/24 21:22 Pulse Oximetry 96 04/19/24 21:22 Oxygen Delivery Method Room Air 04/19/24 21:22 Temperature 98.3 F 04/19/24 21:22 Pulse Rate 106 H 04/19/24 21:22 Respiratory Rate 20 04/19/24 21:22 Blood Pressure 180/99 H 04/19/24 21:22 Pulse Oximetry 96 04/19/24 21:22 Oxygen Delivery Method Room Air 04/19/24 21:22 MDM - Extremity Injury (Lower) MDM Narrative Medical decision making narrative: X-ray of the foot on my interpretation shows erosion of the distal phalanx of the second toe, consistent with osteomyelitis. She does not require admission to the hospital at this point. She was given a dose of Augmentin here and prescribed Augmentin. She already is wearing a boot on her right foot and I do not feel comfortable putting his shoe or a boot on this foot as well because of the risk of fall. She is going to call her welfare case worker office in the morning and the importance of follow-up was discussed with her thoroughly. She was advised of the possible need for surgery. Treatment diagnosis and follow-up were discussed thoroughly. Differential Diagnosis Differential diagnosis: Likely other (Fracture, sprain, cellulitis, osteomyelitis) Imaging Data Foot x-ray: My impression: Erosion of distal phalanx of second toe Discharge Plan Discharge Chief Complaint: Extremity Injury, Lower Clinical Impression: Osteomyelitis of second toe of left foot Patient Disposition: Home, Self-Care Time of Disposition Decision: 22:14 Condition: Good Mode of Transportation: Private Vehicle Prescriptions / Home Meds: New amoxicillin-pot clavulanate 875-125 mg tablet 1 tab PO BID Qty: 14 0RF No Action albuterol sulfate 90 mcg/actuation HFA aerosol inhaler 2 inh INHALATION PRN PRN (Reason: shortness of breath or wheezing) insulin lispro 100 unit/mL insulin pen SUBCUT insulin glargine U-300 conc [[employer] U-300 Insulin] 300 unit/mL (1.5 mL) insulin pen SUBCUT aspirin 81 mg capsule 81 mg PO DAILY atorvastatin 40 mg tablet 40 mg PO DAILY losartan 25 mg tablet 25 mg PO DAILY fluticasone propionate [Flovent HFA] 110 mcg/actuation HFA aerosol inhaler 3 puff INHALATION PRN PRN (Reason: bronchospasm) esomeprazole magnesium 40 mg capsule,delayed release(DR/EC) 40 mg PO Q24H glipizide 10 mg tablet 10 mg PO BID hydrochlorothiazide 12.5 mg capsule 12.5 mg PO DAILY metformin 1,000 mg tablet 500 mg PO BID carvedilol 6.25 mg tablet 6.25 mg PO Q12H ibuprofen 600 mg tablet 600 mg PO TID PRN (Reason: pain) Qty: 30 0RF meloxicam 15 mg tablet famotidine 20 mg tablet nitroglycerin 0.4 mg tablet, sublingual Print Language: Tajik Instructions: Osteomyelitis (ED) Additional Instructions: Call Dr. Bruce's office in the morning, to be seen this week or early next week. Referrals: Shayy Ly MD [Primary Care Provider] - 1 week Sadi Bruce DPM [Physician] - As soon as possible
[2024-04-19] MEDS: AMOXICILLIN/POT CLAV 875-125 MG TABLET 1 TAB PO (22:30)
[2024-04-19 22:41] VITALS: BP 140/75
== END 2024-04-19 22:40 | disposition home or self-care (01) ==
PROVIDERS: Emergency Provider Emergency Medicine; PCP Family Medicine
DX: M86.8X7 Other osteomyelitis, ankle and foot (principal)
CPT/HCPCS: 73630; 99283

== ENCOUNTER 2024-04-27 09:15 | Outpatient (OUT) | payer MEDICARE, MEDICAID, SELFPAY ==
--- NOTE | 2024-04-27 | XR_ITS ---
[facility] [place] [id number] Patient Name: COLETTE DINH MRN: [id number] date: 1970 Sex: F Assigned Patient Location: Current Patient Location: Accession/Order Number: [id number] Exam Date: 04/27/2024 09:20 Report Date: 04/27/2024 13:47 At the request of: JORDYN SANCHEZ Procedure: XR foot LT min 3V PROCEDURE: XR foot LT min 3V HISTORY: LEFT FOOT PAIN COMPARISON: XR foot left 04/19/2024 FINDINGS: BONES:Acute to subacute transverse fracture through distal neck of second toe distal phalanx with slight medial displacement of the tuft. Old fracture fragment at medial base of second proximal phalanx likely sequela of remote injury. Mild flattening of plantar arch. SOFT TISSUES:No visible soft tissue swelling. EFFUSION:None visible. OTHER: Negative. XR/XR foot LT min 3V IMPRESSION: 1. Stable acute to subacute fracture of second toe distal phalanx. Electronically authenticated by: COLTNE TIRADO Date: 04/27/2024 13:47
--- OUTSIDE RECORDS SUMMARY | 2024-04-27 09:35 | XMS_ITS | CCD ---
Author Organization [facility] CliniSypr Care Team Providers Care Airborne Sensor Specialist Name Role Phone PHYSICIAN, DEFAULT Unavailable Unavailable PHYSICIAN, DEFAULT Unavailable Unavailable NADCADY MATT Unavailable Unavailable PHYSICIAN, DEFAULT Unavailable Unavailable PHYSICIAN, DEFAULT Unavailable Unavailable NADCADY MATT Unavailable Unavailable Shayy Dela Cruz Unavailable JOSE DE JESUS, DR SHAYY Reyes Primary Care Unavailable MALCOLM EVANS Consulting Unavailable MALCOLM EVANS Attending Unavailable MALCLOM EVANS Admitting Unavailable JOSE DE JESUS, DR SHAYY Reyes Consulting Unavailable DELA CRUZ, DR SHAYY Reyes Attending Unavailable DELA CRUZ, DR SHAYY Reyes Admitting Unavailable DELA CRUZ, DR SHAYY Reyes Primary Care Unavailable JORDYN SANCHEZ Attending Unavailable JORDYN SANCHEZ Admitting Unavailable Narinder Lan Consulting Unavailable DEAL CRUZ, DR SHAYY Reyes Primary Care Unavailable [...] DELA CRUZ, DR SHAYY Reyes Admitting Unavailable Narindre Lan Consulting Unavailable DELA CRUZ, DR SHAYY [...] Provider MD Shayy Dela Cruz Attending Provider [phone] Sam, RN GYN Cathie C Attending Provider Scally, Cathie C Admitting Unavailable Sam, Cathie C Attending Unavailable Shayy Dela Cruz Admitting Unavailable Shayy Dela Cruz Primary Care Unavailable Shayy Dela Cruz Attending Unavailable Brittani Collier Admitting Unavailable Brittani Collier Attending Unavailable Shayy Dela Cruz Primary Care Unavailable Allergies Allergy Classification Reported Allergen(s) Allergy Type Date of Onset Reaction(s) Facility (1 source) codeine Drug Allergy 9 [facility] Repository (17 sources) Latex; Translations: [LATEX] Drug allergy (disorder) 9 sores on skin [facility] Repository (20 sources) Codeine; Translations: [CODEINE] Drug Allergy 0 nausea [facility] Repository (18 sources) Latex Drug allergy sores on skin [email or web address] Other (1 source) Codeine Drug Allergy [facility] Repository (1 source) atorvastatin; Translations: [ATORVASTATIN] Drug Allergy 3 [facility] Repository (6 sources) cat dander Allergy to substance 4 Sneezing, Itching [facility] (6 sources) dog dander Allergy to substance 4 Sneezing, Itching [facility] (6 sources) ozempic Propensity to adverse reactions 4 Vomiting [facility] (1 source) Codeine Drug Allergy 4 [facility] Repository (1 source) Latex Drug allergy (disorder) 4 [facility] Repository Medications Current Medications Medication Drug Class(es) Dates Sig (Normalized) Sig (Original) [id number] 200 actuat albuterol 0.09 mg/actuat metered dose [...] May, Active Blood-Glucose Meter,Continuo us ([employer]) misc (4 sources) Start: 12-13-2023 Blood-Glucose Meter,Continuous ([employer]) misc Active 0 .Route December 13, 2023 12:00am As directed Start: 12-13-2023 Blood-Glucose Meter,Continuous ([employer]) misc Active 0 .ROUTE December 13, 2023 [...] Orally Once a day Active [employer] - (4 sources) Start: 06-03-19 24 [employer] - as directed as directed 4 x [...] De Jesus Reyes take 1 capsule by [facility] once daily Esomeprazole Magnesium 40 mg [...] Once a day Active [employer]Style Amrik [facility] [place] - (3 sources) Start: 06-06-2023 FreeStyle Libr e 3 [place] - as directed invitro 4 times daily [...] Jun, Not-Taking/PRN Blood-Glucose Meter,Continuous ([employer] [place]) misc (11 sources) Start: 07-28-2023 End: 12-13-2023 Blood-Glucose Meter,Continuous ([employer] [facility] [place]) misc Discontinued EACH .ROUTE .MEDSUPPLY July 28, 2023 12:00am December 13, 2023 1:09pm As directed Start: 07-28-2023 Blood-Glucose Meter,Continuous ([employer] [facility] [place]) misc Active EACH .ROUTE .MEDSUPPLY July 28, [...] angina pectoris; Translations: [Atherosclerotic heart disease of [place] coronary artery without angina pectoris] Onset: 03-24-2022 [...] Onset: 11-09-2021 Chronic Other aftercare (17 sources) [facility] (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 of insulin; Translations: [Long-term (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 of insulin] Onset: 04-08-2022 Episodic Other aftercare (20 sources) Long-term current use of insulin; Translations: [[facility] (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 of insulin] 07-28-2023 Episodic Other [...] Onset: 04-08-2022 Episodic Other aftercare (1 source) [facility] (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; 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] Onset: 04-08-2022 Episodic Other aftercare (1 source) [facility] (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 of oral hypoglycemic drugs; Translations: [[facility] USE ORAL HYPOGLYCEMIC DX] Onset: 04-08-2022 Episodic Other aftercare (1 source) Other jail (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 therapy; Translations: [OTH FITNESS FLOOR ATTENDANT CURRENT DRUG THERAPY] Onset: 11-09-2021 Episodic Other [...] on 02-23-2024 Creatinine (U) [Mass/Vol] 28.00 mg/dL [facility] Comment on above: No reference range e stablished MicroAlb Creat Ratio,Uon Creatinine, Urine (Random) 28.00 mg/dL Normal The Count Includes [facility] Comment on above: Result Comment: No r eference range established Performed By: #### U RMACRERAT #### [address] Microalbumin/Creati nine Ratio Not performed Normal 0.0-30.0 The Count Includes [facility] Comment on above: Result Comment: PERF ORMED BY: [place] [address] PATHOLOGIST HOURLY ASSOCIATE RUBINA RICCI M.D. Performed By: #### U RMACRERAT #### [address] Microalbumin [Mass/volume] i n UrineOrdered By: Cathie Vargas on 02-23-2024 Albumin DL <= 20 mg/L (U) [Mass/Vol] mg/dL Normal 0.0-1.8 [facility] Comment on above: Performed By: #### U RMACRERAT #### [facility] [address] [place] [address] Urine microalbumin/creatinin e mass ratioOrdered By: Cathie Vargas on 02-23-2024 Albumin/Creatinine DL <= 20 mg/L (U) [Mass ratio] TNP [facility] Comment on above: Test not performed HbA1c HPLC (Bld) [Mass fract ion]on 12-13-2023 HbA1c (Bld) [Mass fraction] 9.9 % [facility] No Panel Informationon 12-12 Bedside Glucose 118 [facility] No Panel Informationon 09-28 Bedside Glucose 278 [facility] HbA1c HPLC (Bld) [Mass fract ion]on 07-28-2023 HbA1c (Bld) [Mass fraction] 10.3 % [facility] No Panel Informationon 07-27 Bedside Glucose 126 [facility] Basophils Auto (Bld) [#/Vol] on 07-12-2023 Basophils (Bld) [#/Vol] 0.0 10 3/uL 0.0-0.1 [facility] Basophils/100 WBC Auto (Bld) on 07-12-2023 Basophils/100 WBC (Bld) 0.5 % 0.2-2.0 [facility] Eosinophils/100 WBC Auto (Bl d)on 07-12-2023 Eosinophils/100 WBC (Bld) 1.5 % 0.9-7.0 [facility] Erythrocyte distribution wid th Auto (RBC) [Ratio]on 07-12-2023 Erythrocyte distribution width (RBC) [Ratio] 12.7 % 11.0-15.0 [facility] Estimated glomerular filtrat ion rate (GFR) non- Americanon 07-12-2023 GFR/1.73 sq M.predicted among non-blacks MDRD (S/P/Bld) [Vol rate/Area] mL/min/{1.73_m2} >=60 [facility] Hematocrit Auto (Bld) [Volum e fraction]on 07-12-2023 Hematocrit (Bld) [Volume fraction] 42.8 % 36.0-48.0 [facility] Hemoglobin [Mass/volume] in Bloodon 07-12-2023 Hemoglobin (Bld) [Mass/Vol] 14.3 g/dL 12.0-16.0 [facility] Laboratory - Chemistry and C hemistry - challengeon 07-12-2023 Calcium [Mass/Vol] 9.1 mg/dL 8.5-10.1 [facility] Chloride [Moles/Vol] 100 mmol/L 98-107 [facility] CO2 [Moles/Vol] 26.1 mmol/L 21.0-32.0 [facility] Creatinine [Mass/Vol] 0.78 mg/dL 0.55-1.02 [facility] GFR/1.73 sq M.predicted MDRD (S/P/Bld) [Vol rate/Area] mL/min/{1.73_m2} >=60 [facility] Glucose [Mass/Vol] 215 mg/dL 74-106 [facility] Potassium [Moles/Vol] 4.0 mmol/L 3.5-5.1 [facility] Sodium [Moles/Vol] 137 mmol/L 136-145 [facility] Urea nitrogen [Mass/Vol] 12.0 mg/dL 7.0-18.0 [facility] Urea nitrogen/Creatinine [Mass ratio] 15.4 mg/mg [facility] Laboratory - Hematology and Cell countson 07-12-2023 Immature granulocytes/100 WBC (Bld) 0.1 % 0.0-0.5 [facility] Leukocytes [#/volume] correc alma delia for nucleated erythrocytes in Blood by Automated counon 07-12-2023 WBC corrected for nucl RBC Auto (Bld) [#/Vol] 7.8 10 3/uL 4.0-11.0 [facility] Lymphocytes Auto (Bld) [#/Vo l]on 07-12-2023 Lymphocytes (Bld) [#/Vol] 2.7 10 3/uL 1.2-3.8 [facility] Lymphocytes/100 WBC Auto (Bl d)on 07-12-2023 Lymphocytes/100 WBC (Bld) 34.1 % 20.5-60.0 [facility] MCH Auto (RBC) [Entitic mass ]on 07-12-2023 MCH (RBC) [Entitic mass] 29.2 pg 26.7-34.0 [facility] MCHC Auto (RBC) [Mass/Vol]on 07-12-2023 MCHC (RBC) [Mass/Vol] 33.4 g/dL 29.9-35.2 [facility] MCV Auto (RBC) [Entitic vol] on 07-12-2023 MCV (RBC) [Entitic vol] 87.5 fL 81.0-99.0 [facility] Monocytes Auto (Bld) [#/Vol] on 07-12-2023 Monocytes (Bld) [#/Vol] 0.5 10 3/uL 0.3-0.8 [facility] Monocytes/100 WBC Auto (Bld) on 07-12-2023 Monocytes/100 WBC (Bld) 6.4 % 1.7-12.0 [facility] Neutrophils Auto (Bld) [#/Vo l]on 07-12-2023 Neutrophils (Bld) [#/Vol] 4.5 10 3/uL 1.4-6.5 [facility] Neutrophils/100 WBC Auto (Bl d)on 07-12-2023 Neutrophils/100 WBC (Bld) 57.4 % 43.0-75.0 [facility] No Panel Informationon 07-11 Eosinophils # (Auto) 0.1 10 3/uL 0.0-0.7 [facility] Immature Granulocyte # (Auto) 0.01 10 3/uL 0.00-0.03 [facility] Platelet mean volume Auto (B ld) [Entitic vol]on 07-12-2023 Platelet mean volume (Bld) [Entitic vol] 10.9 fL 9.5-13.5 [facility] Platelets Auto (Bld) [#/Vol] on 07-12-2023 Platelets (Bld) [#/Vol] 259 10 3/uL 150-450 [facility] RBC Auto (Bld) [#/Vol]on RBC (Bld) [#/Vol] 4.89 10 6/uL 4.20-5.40 [facility] Serum or plasma anion gap de terminationon 07-12-2023 Anion gap [Moles/Vol] 14.9 mmol/L [facility] Glucose - FINGER STICKon Glucose [Mass/Vol] 360 mg/dL [email or web address] Other Office Visiton 12-13-2022 Follow-up visit [id number] Arlette Ramos 1970 F Date Provider Department Center 12/13/2022 [id number]-MARQUES [facility] No family history on file Level of Service:38305 [place] OFFICE/OUTPATIENT ESTABLISHED LOW MDM 20-29 MIN Reason for Visit and Comments: Follow-up [088907] - 4 mo follow up Normal [facility] CBC AUTO DIFFon 08-27-2022 BASO # 0.0 103/ul Normal 0.0-0.1 [facility] Comment on above: Performed By: #### C BC #### [facility] [address] [place] [address] Dr. Sarah Church Basophils/100 WBC (Bld) 0.5 % Normal 0.2-2.0 [facility] Comment on above: Performed By: #### C BC #### [facility] [address] [place] [address] Dr. Sarah Church EO # 0.2 103/ul Normal 0.0-0.7 [facility] Comment on above: Performed By: #### C BC #### [facility] [address] [place] [address] Dr. Sarah Church Eosinophils/100 WBC (Bld) 2.2 % Normal 0.9-7.0 [facility] Comment on above: Performed By: #### C BC #### [facility] [address] [place] [address] Dr. Sarah Church Erythrocyte distribution width (RBC) [Ratio] 12.5 % Normal 11.0-15.0 [facility] Comment on above: Performed By: #### C BC #### [facility] [address] [place] [address] Dr. Sarah Church Hematocrit (Bld) [Volume fraction] 44.1 % Normal 36.0-48.0 [facility] Comment on above: Performed By: #### C BC #### [facility] [address] [place] [address] Dr. Sarah Church Hemoglobin (Bld) [Mass/Vol] 15.1 g/dL Normal 12.0-16.0 [facility] Comment on above: Performed By: #### C BC #### [facility] [address] [place] [address] Dr. Sarah Church IG # 0.02 10e3/ul Normal 0.00-0.03 [facility] Comment on above: Performed By: #### C BC #### [facility] [address] [place] [address] Dr. Sarah Church IG % 0.2 % Normal 0.0-0.5 [facility] Comment on above: Performed By: #### C BC #### [facility] [address] [place] [address] Dr. Sarah Church LYMPH # 2.9 103/ul Normal 1.2-3.8 [facility] Comment on above: Performed By: #### C BC #### [facility] [address] [place] [address] Dr. Sarah Church Lymphocytes/100 WBC (Bld) 33.4 % Normal 20.5-60.0 [facility] Comment on above: Performed By: #### C BC #### [facility] [address] [place] [address] Dr. Sarah Church MANUAL DIFF REQ NO Normal [facility] Comment on above: Performed By: #### C BC #### [facility] [address] [place] [address] Dr. Sarah Church MCH (RBC) [Entitic mass] 29.1 pg Normal 26.7-34.0 [facility] Comment on above: Performed By: #### C BC #### [facility] [address] [place] [address] Dr. Sarah Church MCHC (RBC) [Mass/Vol] 34.2 g/dL Normal 29.9-35.2 [facility] Comment on above: Performed By: #### C BC #### [facility] [address] [place] [address] Dr. Sarah Church MCV (RBC) [Entitic vol] 85.0 fL Normal 81.0-99.0 [facility] Comment on above: Performed By: #### C BC #### [facility] [address] [place] [address] Dr. Sarah Church MONO # 0.6 103/ul Normal 0.3-0.8 [facility] Comment on above: Performed By: #### C BC #### [facility] [address] [place] [address] Dr. Sarah Church Monocytes/100 WBC (Bld) 6.8 % Normal 1.7-12.0 [facility] Comment on above: Performed By: #### C BC #### [facility] [address] [place] [address] Dr. Sarah Church NEUT # 4.9 103/ul Normal 1.4-6.5 [facility] Comment on above: Performed By: #### C BC #### [facility] [address] [place] [address] Dr. Sarah Church Neutrophils/100 WBC (Bld) 56.9 % Normal 43.0-75.0 [facility] Comment on above: Performed By: #### C BC #### [facility] [address] [place] [address] Dr. Sarah Church Platelet mean volume (Bld) [Entitic vol] 10.8 fL Normal 9.5-13.5 [facility] Comment on above: Performed By: #### C BC #### [facility] [address] [place] [address] Dr. Sarah Church PLT 276 103/ul Normal 150-450 [facility] Comment on above: Performed By: #### C BC #### [facility] [address] [place] [address] Dr. Sarah Church RBC 5.19 106/ul Normal 4.20-5.40 [facility] Comment on above: Performed By: #### C BC #### [facility] [address] [place] [address] Dr. Sarah Church WBC 8.6 103/ul Normal 4.0-11.0 [facility] Comment on above: Performed By: #### C BC #### [facility] [address] [place] [address] Dr. Sarah Church LIPID PROFILEon 08-27-2022 CHOL-HDL RATIO NORM SEE BELOW Normal [facility] Comment on above: Result Comment: 3.3 - 4.4 LOW RISK 4.4 - 7.1 AVERAGE RISK 7.1 - 11.0 MODERATE RISK >11.0 HIGH RISK Performed By: #### L IPID, CMP #### [facility] [address] [place] [address] Dr. Sarah Church Cholesterol [Mass/Vol] 110 mg/dL Normal <=200 [facility] Comment on above: Performed By: #### L IPID, CMP #### [facility] [address] [address] [address] Sarah Church Cholesterol in HDL [Mass/Vol] 33 mg/dL Critically low 40-60 [facility] Comment on above: Performed By: #### L IPID, CMP #### [facility] [address] [address] [address] Sarah Church Cholesterol in LDL [Mass/Vol] 58.0 mg/dL Normal [facility] Comment on above: Performed By: #### L IPID, CMP #### [facility] [address] [address] [address] Sarah Church Cholesterol.total/C holesterol in HDL [Mass ratio] 3.3 {ratio} Normal [facility] Comment on above: Performed By: #### L IPID, CMP #### [facility] [address] [address] [address] Sarah Church HDL NORMAL > or = 60 mg/dl - LO W CARDIOVASCULAR RISK <40 mg/dl - HIGH CARDIOVASCULAR RISK Normal [facility] Comment on above: Performed By: #### L IPID, CMP #### [facility] [address] [address] [address] Sarah Church LDL CALC NORMAL SEE BELOW Normal [facility] Comment on above: Result Comment: <100 mg/dl OPTIMAL 100 - 129 mg/dl NEAR OR ABOVE OPTIMAL 130 - 159 mg/dl BORDERLINE HIGH 160 - 189 mg/dl HIGH >190 mg/dl VERY HIGH Performed By: #### L IPID, CMP #### [facility] [address] [address] [address] Sarah Church Triglyceride [Mass/Vol] 95 mg/dL Normal <=150 [facility] Comment on above: Performed By: #### L IPID, CMP #### [facility] [address] [address] [address] Sarah Church VLDL CALC 19.0 mg/dL Normal [facility] Comment on above: Performed By: #### L IPID, CMP #### [facility] [address] [address] [address] Sarah Church PROF 14(COMP METB)on 023 Albumin [Mass/Vol] 3.3 g/dL Critically low 3.4-5.0 [facility] Comment on above: Performed By: #### L IPID, CMP #### [facility] [address] [place] [address] Dr. Sarah Church Albumin/Globulin [Mass ratio] 0.8 {ratio} Normal [facility] Comment on above: Performed By: #### L IPID, CMP #### [facility] [address] [place] [address] Dr. Sarah Church ALP [Catalytic activity/Vol] 100 U/L Normal 46-116 [facility] Comment on above: Performed By: #### L IPID, CMP #### [facility] [address] [place] [address] Dr. Sarah Church ALT [Catalytic activity/Vol] 74 U/L Critically high 14-59 [facility] Comment on above: Performed By: #### L IPID, CMP #### [facility] [address] [place] [address] Dr. Sarah Church Anion gap [Moles/Vol] 13.2 mmol/L Normal [facility] Comment on above: Performed By: #### L IPID, CMP #### [facility] [address] [place] [address] Dr. Sarah Church AST [Catalytic activity/Vol] 42 U/L Critically high 15-37 [facility] Comment on above: Performed By: #### L IPID, CMP #### [facility] [address] [place] [address] Dr. Sarah Church Bilirubin [Mass/Vol] 0.4 mg/dL Normal 0.2-1.0 [facility] Comment on above: Performed By: #### L IPID, CMP #### [facility] [address] [place] [address] Dr. Sarah Church Calcium [Mass/Vol] 9.2 mg/dL Normal 8.5-10.1 [facility] Comment on above: Performed By: #### L IPID, CMP #### [facility] [address] [place] [address] Dr. Sarah Church Chloride [Moles/Vol] 99 mmol/L Normal 98-107 [facility] Comment on above: Performed By: #### L IPID, CMP #### [facility] [address] [place] [address] Dr. Sarah Church CO2 [Moles/Vol] 30.4 mmol/L Normal 21.0-32.0 [facility] Comment on above: Performed By: #### L IPID, CMP #### [facility] [address] [place] [address] Dr. Sarah Church Creatinine [Mass/Vol] 0.78 mg/dL Normal 0.55-1.02 [facility] Comment on above: Performed By: #### L IPID, CMP #### [facility] [address] [place] [address] Dr. Sarah Church EGFR-AF MACANESE >60 Normal >=60 [facility] Comment on above: Performed By: #### L IPID, CMP #### [facility] [address] [place] [address] Dr. Sarah Church EGFR-NON AF MACANESE >60 Normal >=60 [facility] Comment on above: Performed By: #### L IPID, CMP #### [facility] [address] [place] [address] Dr. Sarah Church Globulin (S) [Mass/Vol] 4.0 g/dL Normal [facility] Comment on above: Performed By: #### L IPID, CMP #### [facility] [address] [place] [address] Dr. Sarah Church Glucose [Mass/Vol] 255 mg/dL Critically high 74-106 [facility] Comment on above: Performed By: #### L IPID, CMP #### [facility] [address] [place] [address] Dr. Sarah Church Potassium [Moles/Vol] 3.6 mmol/L Normal 3.5-5.1 [facility] Comment on above: Performed By: #### L IPID, CMP #### [facility] [address] [address] [address] Sarah Church Protein [Mass/Vol] 7.3 g/dL Normal 6.4-8.2 [facility] Comment on above: Performed By: #### L IPID, CMP #### [facility] [address] [address] [address] Sarah Church Sodium [Moles/Vol] 139 mmol/L Normal 136-145 [facility] Comment on above: Performed By: #### L IPID, CMP #### [facility] [address] [place] [address] Dr. Sarah Church Urea nitrogen [Mass/Vol] 8.0 mg/dL Normal 7.0-18.0 [facility] Comment on above: Performed By: #### L IPID, CMP #### [facility] [address] [place] [address] Dr. Sarah Church Urea nitrogen/Creatinine [Mass ratio] 10.3 mg/mg Normal [facility] Comment on above: Performed By: #### L IPID, CMP #### [facility] [address] [place] [address] Dr. Sarah Church 37on 08-10-2022 37 -Start hydrochlorothiazide 12.5 mg in the morning -Check labs 1 week after starting new medication -Take blood pressure to appointment with Dr. Dela Cruz for correlation [facility] Office Visiton 08-10-2022 Follow-up visit [id number] Arlette Ramos 1970 F Date Provider Department Center 08/10/2022 [id number] BENITES [facility] No family history on file Level of Service:57402 [place] OFFICE/OUTPATIENT ESTABLISHED MOD MDM 30-39 MIN Reason for Visit and Comments: Coronary Artery Disease [187] Hypertension [310969] Normal [facility] MG MAMM SCREEN 3D ROB CADon 07-20-2022 MG MAMM SCREEN 3D ROB CAD Patient: ZOILA RAMOS Exam Date: 07/20/2022 : 1970 Gender:F Ordering : DR SHAYY DELA CRUZ M.D. Admission #: [id number] Family : Order #: [id number] CLICK HERE TO VIEW EXAM RADIOLOGY REPORT PROCEDURE: MAMMOGRAM SCREENING 3D BILATERAL CAD COMPARISON: MAMMO ROB SCREEN W CAD DIG, 05/16/2012. INDICATIONS: Screening mammography Calculator Name NCI Breast Cancer Risk Assessment Tool 5 Year Breast Cancer Risk 1.20% Lifetime Breast Cancer Risk 10.80% Personal Breast Cancer No Personal Ovarian Cancer No Treatments None Family Cancers None LOCATION: [facility] BREAST COMPOSITION: Almost entirely fatty. FINDINGS: [...] M.D. on 07/21/2022 at 08:24 Normal [facility] PROF CHEM 8 (BAS METB)on Anion gap [Moles/Vol] 14.5 mmol/L Normal [facility] Comment on above: Performed By: #### B MP #### [facility] [address] [address] [address] Sarah Church Calcium [Mass/Vol] 9.8 mg/dL Normal 8.5-10.1 [facility] Comment on above: Performed By: #### B MP #### [facility] [address] [address] [address] Sarah Church Chloride [Moles/Vol] 99 mmol/L Normal 98-107 [facility] Comment on above: Performed By: #### B MP #### [facility] [address] [address] [address] Sarah Church CO2 [Moles/Vol] 27.2 mmol/L Normal 21.0-32.0 [facility] Comment on above: Performed By: #### B MP #### [facility] [address] [place] [address] Dr. Sarah Church Creatinine [Mass/Vol] 0.80 mg/dL Normal 0.55-1.02 [facility] Comment on above: Performed By: #### B MP #### [facility] [address] [address] [address] Sarah Church EGFR-AF MACANESE >60 Normal >=60 [facility] Comment on above: Performed By: #### B MP #### [facility] [address] [place] [address] Dr. Sarah Church EGFR-NON AF MACANESE >60 Normal >=60 [facility] Comment on above: Performed By: #### B MP #### [facility] [address] [place] [address] Dr. Sarah Church Glucose [Mass/Vol] 458 mg/dL Critically high 74-106 [facility] Comment on above: Performed By: #### B MP #### [facility] [address] [address] [address] Sarah Church Potassium [Moles/Vol] 4.7 mmol/L Normal 3.5-5.1 [facility] Comment on above: Performed By: #### B MP #### [facility] [address] [place] [address] Dr. Sarah Church Sodium [Moles/Vol] 136 mmol/L Normal 136-145 [facility] Comment on above: Performed By: #### B MP #### [facility] [address] [place] [address] Dr. Sarah Church Urea nitrogen [Mass/Vol] 15.0 mg/dL Normal 7.0-18.0 [facility] Comment on above: Performed By: #### B MP #### [facility] [address] [place] [address] Dr. Sarah Church Urea nitrogen/Creatinine [Mass ratio] 18.8 mg/mg Normal [facility] Comment on above: Performed By: #### B MP #### [facility] [address] [place] [address] Dr. Sarah Church Orders Onlyon 06-04-2022 Orders Only [id number] RichardArlette crook erasmo Sidhu 1970 Provider Department Center 06/04/2022 Shila-JESSICA STONE MADELYN Robert [facility] No family history on file Normal [facility] 36on 06-01-2022 36 Patient called [...] her high cholesterol . HELP!! lol Normal [facility] Orders Onlyon 06-01-2022 Orders Only [id number] RichardArlette crook erasmo Sidhu 1970 Provider Department Center 06/01/[address] No family history on file [facility] 36on 05-28-2022 36 Spoke with flaca she states to call in script of losartan 25 mg QD Normal [facility] GLYCOHEMOGLOBIN A1Con 2022 ADA RECOMMENDATION SEE BELOW Normal [facility] Comment on above: Result Comment: ADA RECOMMENDED LIMIT 4.0 - 6.0 ADA THERAPEUTIC TARGET < 7.0 ACTION SUGGESTED > 7.0 Performed By: #### A 1C ####[facility] [address] [id number]. Sarah Church Glucose [Mass/Vol] 266 mg/dL Normal [facility] Comment on above: Performed By: #### A 1C ####[facility] [address] [place], [place] [address]Kl. Sarah Church HbA1c (Bld) [Mass fraction] 10.9 % Critically high 4.5-6.2 [facility] Comment on above: Performed By: #### A 1C ####[facility] [address] [id number]. Sarah Church Office Visiton 05-19-2022 Follow-up visit [id number] RichardArlette Sidhu 1970 F Date Provider Department Center 05/19/2022 MALCOLM SCHAFER CARD [facility] No family history on file Level of Service:95549 [place] OFFICE/OUTPATIENT ESTABLISHED MOD MDM 30-39 MIN Reason for Visit and Comments: Coronary Artery Disease [187] Hyperlipidemia [182] Normal [facility] XR HIP RT 2 3V [...] JAVAD ROB Date: 2022-04-06 21:15 Normal [facility] CBC AUTO DIFFon 11-05-2021 BASO # 0.1 103/ul Normal 0.0-0.1 [facility] Comment on above: Performed By: #### C BC #### [facility] [address] [place] [address] Dr. Sarah Church Basophils/100 WBC (Bld) 0.4 % Normal 0.2-2.0 [facility] Comment on above: Performed By: #### C BC #### [facility] [address] [place] [address] Dr. Sarah Church EO # 0.2 103/ul Normal 0.0-0.7 [facility] Comment on above: Performed By: #### C BC #### [facility] [address] [place] [address] Dr. Sarah Church Eosinophils/100 WBC (Bld) 1.3 % Normal 0.9-7.0 [facility] Comment on above: Performed By: #### C BC #### [facility] [address] [place] [address] Dr. Sarah Church Erythrocyte distribution width (RBC) [Ratio] 12.3 % Normal 11.0-15.0 [facility] Comment on above: Performed By: #### C BC #### [facility] [address] [place] [address] Dr. Sarah Church Hematocrit (Bld) [Volume fraction] 43.1 % Normal 36.0-48.0 [facility] Comment on above: Performed By: #### C BC #### [facility] [address] [place] [address] Dr. Sarah Church Hemoglobin (Bld) [Mass/Vol] 14.6 g/dL Normal 12.0-16.0 [facility] Comment on above: Performed By: #### C BC #### [facility] [address] [place] [address] Dr. Sarah Church IG # 0.04 10e3/ul Critically high 0.00-0.03 [facility] Comment on above: Performed By: #### C BC #### [facility] [address] [place] [address] Dr. Sarah Church IG % 0.3 % Normal 0.0-0.5 [facility] Comment on above: Performed By: #### C BC #### [facility] [address] [place] [address] Dr. Sarah Church LYMPH # 1.6 103/ul Normal 1.2-3.8 [facility] Comment on above: Performed By: #### C BC #### [facility] [address] [place] [address] Dr. Sarah Church Lymphocytes/100 WBC (Bld) 12.5 % Critically low 20.5-60.0 [facility] Comment on above: Performed By: #### C BC #### [facility] [address] [place] [address] Dr. Sarah Church MANUAL DIFF REQ NO Normal [facility] Comment on above: Performed By: #### C BC #### [facility] [address] [place] [address] Dr. Sarah Church MCH (RBC) [Entitic mass] 29.4 pg Normal 26.7-34.0 [facility] Comment on above: Performed By: #### C BC #### [facility] [address] [place] [address] Dr. Sarah Church MCHC (RBC) [Mass/Vol] 33.9 g/dL Normal 29.9-35.2 [facility] Comment on above: Performed By: #### C BC #### [facility] [address] [place] [address] Dr. Sarah Church MCV (RBC) [Entitic vol] 86.7 fL Normal 81.0-99.0 [facility] Comment on above: Performed By: #### C BC #### [facility] [address] [place] [address] Dr. Sarah Church MONO # 1.0 103/ul Critically high 0.3-0.8 [facility] Comment on above: Performed By: #### C BC #### [facility] [address] [place] [address] Dr. Sarah Church Monocytes/100 WBC (Bld) 7.7 % Normal 1.7-12.0 [facility] Comment on above: Performed By: #### C BC #### [facility] [address] [place] [address] Dr. Sarah Church NEUT # 9.6 103/ul Critically high 1.4-6.5 [facility] Comment on above: Performed By: #### C BC #### [facility] [address] [place] [address] Dr. Sarah Church Neutrophils/100 WBC (Bld) 77.8 % Critically high 43.0-75.0 [facility] Comment on above: Performed By: #### C BC #### [facility] [address] [place] [address] Dr. Sarah Church Platelet mean volume (Bld) [Entitic vol] 11.0 fL Normal 9.5-13.5 [facility] Comment on above: Performed By: #### C BC #### [facility] [address] [place] [address] Dr. Sarah Church PLT 220 103/ul Normal 150-450 [facility] Comment on above: Performed By: #### C BC #### [facility] [address] [place] [address] Dr. Sarah Church RBC 4.97 106/ul Normal 4.20-5.40 [facility] Comment on above: Performed By: #### C BC #### [facility] [address] [address] [address] Sarah Church WBC 12.4 103/ul Critically high 4.0-11.0 [facility] Comment on above: Performed By: #### C BC #### [facility] [address] [place] [address] Dr. Sarah Church GROUP A STREP CULTUREon S. pyogenes Ag Ql (Unsp spec) Culture Observations: NEGATIVE FOR GROUP A STREPTOCOCCUS. Normal [facility] Comment on above: Performed By: #### G RASTCX, SSCRN ####[facility] [address] [address]Dr. Sarah Church POINT OF CARE GLUCOSEon Glucose [Mass/Vol] 214 mg/dL Critically high 74-106 [facility] Comment on above: Performed By: #### P OCGLUC #### [facility] [address] [place] [address] Dr. Sarah Church STREPT SCREENon 11-05-2021 STREP SCREEN A Negative Normal NEGATIVE [facility] Comment on above: Performed By: #### G RASTCX, SSCRN ####[facility] [address] [address]Dr. Sarah Church CBC AUTO DIFFon 10-16-2021 BASO # 0.1 103/ul Normal 0.0-0.1 [facility] Comment on above: Performed By: #### C BC #### [facility] [address] [place] [address] Dr. Sarah Church Basophils/100 WBC (Bld) 0.8 % Normal 0.2-2.0 [facility] Comment on above: Performed By: #### C BC #### [facility] [address] [place] [address] Dr. Sarah Church EO # 0.3 103/ul Normal 0.0-0.7 [facility] Comment on above: Performed By: #### C BC #### [facility] [address] [place] [address] Dr. Sarah Church Eosinophils/100 WBC (Bld) 3.4 % Normal 0.9-7.0 [facility] Comment on above: Performed By: #### C BC #### [facility] [address] [place] [address] Dr. Sarah Church Erythrocyte distribution width (RBC) [Ratio] 12.6 % Normal 11.0-15.0 [facility] Comment on above: Performed By: #### C BC #### [facility] [address] [place] [address] Dr. Sarah Church Hematocrit (Bld) [Volume fraction] 45.4 % Normal 36.0-48.0 [facility] Comment on above: Performed By: #### C BC #### [facility] [address] [place] [address] Dr. Sarah Church Hemoglobin (Bld) [Mass/Vol] 15.0 g/dL Normal 12.0-16.0 [facility] Comment on above: Performed By: #### C BC #### [facility] [address] [place] [address] Dr. Sarah Church IG # 0.02 10e3/ul Normal 0.00-0.03 [facility] Comment on above: Performed By: #### C BC #### [facility] [address] [place] [address] Dr. Sarah Church IG % 0.2 % Normal 0.0-0.5 [facility] Comment on above: Performed By: #### C BC #### [facility] [address] [place] [address] Dr. Sarah Church LYMPH # 2.7 103/ul Normal 1.2-3.8 [facility] Comment on above: Performed By: #### C BC #### [facility] [address] [place] [address] Dr. Sarah Church Lymphocytes/100 WBC (Bld) 31.0 % Normal 20.5-60.0 [facility] Comment on above: Performed By: #### C BC #### [facility] [address] [place] [address] Dr. Sarah Church MANUAL DIFF REQ NO Normal [facility] Comment on above: Performed By: #### C BC #### [facility] [address] [place] [address] Dr. Sarah Church MCH (RBC) [Entitic mass] 29.3 pg Normal 26.7-34.0 [facility] Comment on above: Performed By: #### C BC #### [facility] [address] [place] [address] Dr. Sarah Church MCHC (RBC) [Mass/Vol] 33.0 g/dL Normal 29.9-35.2 [facility] Comment on above: Performed By: #### C BC #### [facility] [address] [place] [address] Dr. Sarah Church MCV (RBC) [Entitic vol] 88.7 fL Normal 81.0-99.0 [facility] Comment on above: Performed By: #### C BC #### [facility] [address] [place] [address] Dr. Sarah Church MONO # 0.6 103/ul Normal 0.3-0.8 [facility] Comment on above: Performed By: #### C BC #### [facility] [address] [place] [address] Dr. Sarah Church Monocytes/100 WBC (Bld) 6.5 % Normal 1.7-12.0 [facility] Comment on above: Performed By: #### C BC #### [facility] [address] [place] [address] Dr. Sarah Church NEUT # 5.0 103/ul Normal 1.4-6.5 [facility] Comment on above: Performed By: #### C BC #### [facility] [address] [place] [address] Dr. Sarah Church Neutrophils/100 WBC (Bld) 58.1 % Normal 43.0-75.0 [facility] Comment on above: Performed By: #### C BC #### [facility] [address] [place] [address] Dr. Sarah Church Platelet mean volume (Bld) [Entitic vol] 11.0 fL Normal 9.5-13.5 [facility] Comment on above: Performed By: #### C BC #### [facility] [address] [address] [address] Sarah Church PLT 226 103/ul Normal 150-450 [facility] Comment on above: Performed By: #### C BC #### [facility] [address] [address] [address] Sarah Church RBC 5.12 106/ul Normal 4.20-5.40 [facility] Comment on above: Performed By: #### C BC #### [facility] [address] [address] [address] Sarah Church WBC 8.6 103/ul Normal 4.0-11.0 [facility] Comment on above: Performed By: #### C BC #### [facility] [address] [address] [address] Sarah Church GLYCOHEMOGLOBIN A1Con 2021 ADA RECOMMENDATION SEE BELOW Normal [facility] Comment on above: Result Comment: ADA RECOMMENDED LIMIT 4.0 - 6.0 ADA THERAPEUTIC TARGET < 7.0 ACTION SUGGESTED > 7.0 Performed By: #### A 1C ####[facility] [address] [address]Dr. Sarah Church Glucose [Mass/Vol] 275 mg/dL Normal [facility] Comment on above: Performed By: #### A 1C ####[facility] [address] [address]Dr. Sarah Church HbA1c (Bld) [Mass fraction] 11.2 % Critically high 4.5-6.2 [facility] Comment on above: Performed By: #### A 1C ####[facility] [address] [address]Dr. Sarah Church LIPID PROFILEon 10-16-2021 CHOL-HDL RATIO NORM SEE BELOW Normal [facility] Comment on above: Result Comment: 3.3 - 4.4 LOW RISK 4.4 - 7.1 AVERAGE RISK 7.1 - 11.0 MODERATE RISK >11.0 HIGH RISK Performed By: #### L IPID, CMP ####[facility] [address] [phone]. Sarah Church Cholesterol [Mass/Vol] 159 mg/dL Normal <=200 [facility] Comment on above: Performed By: #### L IPID, CMP ####[facility] [address] [phone]. Sarah Church Cholesterol in HDL [Mass/Vol] 41 mg/dL Normal 40-60 [facility] Comment on above: Performed By: #### L IPID, CMP ####[facility] [address] [phone]. Sarah Church Cholesterol in LDL [Mass/Vol] 102.6 mg/dL Normal [facility] Comment on above: Performed By: #### L IPID, CMP ####[facility] [address] [phone]. Corriebrenden Ranjit Cholesterol.total/C holesterol in HDL [Mass ratio] 3.9 {ratio} Normal [facility] Comment on above: Performed By: #### L IPID, CMP ####[facility] [address] [phone]. Sarah Church HDL NORMAL > or = 60 mg/dl - LO W CARDIOVASCULAR RISK <40 mg/dl - HIGH CARDIOVASCULAR RISK Normal [facility] Comment on above: Performed By: #### L IPID, CMP ####[facility] [address] [phone]. Sarah Church LDL CALC NORMAL SEE BELOW Normal [facility] Comment on above: Result Comment: <100 mg/dl OPTIMAL 100 - 129 mg/dl NEAR OR ABOVE OPTIMAL 130 - 159 mg/dl BORDERLINE HIGH 160 - 189 mg/dl HIGH >190 mg/dl VERY HIGH Performed By: #### L IPID, CMP ####[facility] [address] [phone]. Sarah Church Triglyceride [Mass/Vol] 77 mg/dL Normal <=150 [facility] Comment on above: Performed By: #### L IPID, CMP ####[facility] [address] [phone]. Sarah Church VLDL CALC 15.4 mg/dL Normal [facility] Comment on above: Performed By: #### L IPID, CMP ####[facility] [address] [phone]. Sarah Church MICROALBUMIN, RAND URon - mALB 2.0 mg/L Normal <=30.0 [facility] Comment on above: Performed By: #### M ALBR #### [facility] [address] [place], [place] [address] Dr. Sarah Church PROF 14(COMP METB)on 022 Albumin [Mass/Vol] 3.5 g/dL Normal 3.4-5.0 [facility] Comment on above: Performed By: #### L IPID, CMP ####[facility] [address] [address]Dr. Sarah Church Albumin/Globulin [Mass ratio] 0.8 {ratio} Normal [facility] Comment on above: Performed By: #### L IPID, CMP ####[facility] [address] [address]Dr. Sarah Church ALP [Catalytic activity/Vol] 85 U/L Normal 46-116 [facility] Comment on above: Performed By: #### L IPID, CMP ####[facility] [address] [address]Dr. Sarah Church ALT [Catalytic activity/Vol] 59 U/L Normal 14-59 [facility] Comment on above: Performed By: #### L IPID, CMP ####[facility] [address] [id number]. Sarah Church Anion gap [Moles/Vol] 15.1 mmol/L Normal [facility] Comment on above: Performed By: #### L IPID, CMP ####[facility] [address] [address]Dr. Sarah Church AST [Catalytic activity/Vol] 32 U/L Normal 15-37 [facility] Comment on above: Performed By: #### L IPID, CMP ####[facility] [address] [place], [place] [address]Dr. Sarah Church Bilirubin [Mass/Vol] 0.4 mg/dL Normal 0.2-1.0 [facility] Comment on above: Performed By: #### L IPID, CMP ####[facility] [address] [place], [place] [address]Dr. Sarah Church Calcium [Mass/Vol] 9.0 mg/dL Normal 8.5-10.1 [facility] Comment on above: Performed By: #### L IPID, CMP ####[facility] [address] [place], [place] [address]Dr. Sarah Church Chloride [Moles/Vol] 102 mmol/L Normal 98-107 [facility] Comment on above: Performed By: #### L IPID, CMP ####[facility] [address] [place], [place] [address]Dr. Sarah Church CO2 [Moles/Vol] 30.2 mmol/L Normal 21.0-32.0 The [facility] Comment on above: Performed By: #### L IPID, CMP ####[facility] [address] [place], [place] [address]Dr. Sarah Church Creatinine [Mass/Vol] 0.81 mg/dL Normal 0.55-1.02 [facility] Comment on above: Performed By: #### L IPID, CMP ####[facility] [address] [place], [place] [address]Dr. Sarah Church EGFR-AF MACANESE >60 Normal >=60 The [facility] Comment on above: Performed By: #### L IPID, CMP ####[facility] [address] [place], [place] [address]Dr. Corriebrenden Church EGFR-NON AF MACANESE >60 Normal >=60 [facility] Comment on above: Performed By: #### L IPID, CMP ####[facility] [address] [place], [place] [address]Dr. Sarah Church Globulin (S) [Mass/Vol] 3.9 g/dL Normal [facility] Comment on above: Performed By: #### L IPID, CMP ####[facility] [address] [place], [place] [address]Dr. Corriebrenden Church Glucose [Mass/Vol] 218 mg/dL Critically high 74-106 [facility] Comment on above: Performed By: #### L IPID, CMP ####[facility] [address] [place], [place] [address]Dr. Sarah Church Potassium [Moles/Vol] 4.3 mmol/L Normal 3.5-5.1 [facility] Comment on above: Performed By: #### L IPID, CMP ####[facility] [address] [place], [place] [address]Dr. Sarah Church Protein [Mass/Vol] 7.4 g/dL Normal 6.4-8.2 [facility] Comment on above: Performed By: #### L IPID, CMP ####[facility] [address] [place], [place] [address]Dr. Sarah Church Sodium [Moles/Vol] 143 mmol/L Normal 136-145 [facility] Comment on above: Performed By: #### L IPID, CMP ####[facility] [address] [place], [place] [address]Dr. Sarah Church Urea nitrogen [Mass/Vol] 14.0 mg/dL Normal 7.0-18.0 [facility] Comment on above: Performed By: #### L IPID, CMP ####[facility] [address] [place], [place] [address]Dr. Sarah Church Urea nitrogen/Creatinine [Mass ratio] 17.2 mg/mg Normal [facility] Comment on above: Performed By: #### L IPID, CMP ####[facility] [address] [place], [place] [address]Dr. Sarah Church Vital Signs Date Time Vital Sign Value Performing Clinician Facility 02-23-2024 13:23-0400 Body height 157.48 cm [facility] 02-23-2024 13:23-0400 Body mass index (BMI) [Ratio] 38 kg/m2 [facility] 02-23-2024 13:23-0400 Body weight 94.37 kg [facility] 02-23-2024 13:23-0400 Diastolic blood pressure 78 mm[Hg] [facility] 02-23-2024 13:23-0400 Heart rate 75 /min [facility] 02-23-2024 13:23-0400 Respiratory rate 18 /min [facility] 02-23-2024 13:23-0400 SaO2% (BldA) [Mass fraction] 97 % [facility] [facility]24 13:23-0400 Systolic blood pressure 170 mm[Hg] [facility] 12-13-2023 13:03-0400 Body height 157.48 cm [facility] 12-13-2023 13:03-0400 Body mass index (BMI) [Ratio] 37.1 kg/m2 [facility] 12-13-2023 13:03-0400 Body weight 92.07 kg [facility] 12-13-2023 13:03-0400 Diastolic blood pressure 86 mm[Hg] [facility] 12-13-2023 13:03-0400 Heart rate 78 /min [facility] 12-13-2023 13:03-0400 Respiratory rate 18 /min [facility] 12-13-2023 13:03-0400 SaO2% (BldA) [Mass fraction] 96 % [facility] 12-13-2023 13:03-0400 Systolic blood pressure 153 mm[Hg] [facility] 12-05-2023 11:24-0400 Body height 157.48 cm [facility] 12-05-2023 11:24-0400 Body mass index (BMI) [Ratio] 36.9 kg/m2 [facility] 12-05-2023 11:24-0400 Body weight 91.62 kg [facility] 12-05-2023 11:24-0400 Diastolic blood pressure 75 mm[Hg] [facility] 12-05-2023 11:24-0400 Heart rate 80 /min [facility] 12-05-2023 11:24-0400 Systolic blood pressure 133 mm[Hg] [facility] 09-29-2023 13:44-0400 Diastolic blood pressure 76 mm[Hg] [facility] 09-29-2023 13:44-0400 Systolic blood pressure 130 mm[Hg] [facility] 09-29-2023 13:19-0400 Body height 157.48 cm [facility] 09-29-2023 13:19-0400 Body mass index (BMI) [Ratio] 38.7 kg/m2 [facility] 09-29-2023 13:19-0400 Body weight 95.9 kg [facility] 09-29-2023 13:19-0400 Heart rate 89 /min [facility] 09-29-2023 13:19-0400 Respiratory rate 18 /min [facility] 09-29-2023 13:19-0400 SaO2% (BldA) [Mass fraction] 98 % [facility] 09-06-2023 11:08-0400 Body height 157.48 cm [facility] 09-06-2023 11:08-0400 Body mass index (BMI) [Ratio] 37.6 kg/m2 [facility] 09-06-2023 11:08-0400 Body weight 93.44 kg [facility] 09-06-2023 11:08-0400 Diastolic blood pressure 72 mm[Hg] [facility] 09-06-2023 11:08-0400 Heart rate 89 /min [facility] 09-06-2023 11:08-0400 Systolic blood pressure 127 mm[Hg] [facility] 08-24-2023 15:08-0400 Body height 157.48 cm [facility] 08-24-2023 15:08-0400 Body mass index (BMI) [Ratio] 37.5 kg/m2 [facility] 08-24-2023 15:08-0400 Body weight 93.21 kg [facility] 08-19-2023 10:43-0400 Body height 157.48 cm MD Shayy Dela Cruz Work Phone: [facility] 08-19-2023 10:43-0400 Body mass index (BMI) [Ratio] 37.5 kg/m2 MD Shayy Dela Cruz Work Phone: [facility] 08-19-2023 10:43-0400 Body weight 93.09 kg MD Shayy Dela Cruz Work Phone: [facility] 08-19-2023 10:43-0400 Diastolic blood pressure 79 mm[Hg] MD Shayy Dela Cruz Work Phone: [facility] 08-19-2023 10:43-0400 Heart rate 83 /min MD Shayy Dela Cruz Work Phone: [facility] 08-19-2023 10:43-0400 Systolic blood pressure 135 mm[Hg] MD Shayy Dela Cruz Work Phone: [facility] 07-28-2023 14:22-0400 Body height 157.48 cm MD Shayy Dela Cruz Work Phone: [facility] 07-28-2023 14:22-0400 Body mass index (BMI) [Ratio] 37.6 kg/m2 MD Shayy Dela Cruz Work Phone: [facility] 07-28-2023 14:22-0400 Body weight 93.44 kg MD Shayy Dela Cruz Work Phone: [facility] 07-28-2023 14:22-0400 Diastolic blood pressure 84 mm[Hg] MD Shayy Dela Cruz Work Phone: [facility] 07-28-2023 14:22-0400 Heart rate 83 /min MD Shayy Dela Cruz Work Phone: [facility] 07-28-2023 14:22-0400 Respiratory rate 18 /min MD Shayy Dela Cruz Work Phone: [facility] 07-28-2023 14:22-0400 SaO2% (BldA) [Mass fraction] 97 % MD Shayy Dela Cruz Work Phone: [facility] 07-28-2023 14:22-0400 Systolic blood pressure 140 mm[Hg] MD Shayy Dela Cruz Work Phone: [facility] 07-19-2023 10:57-0400 Body height 157.48 cm MD Shayy Dela Cruz Work Phone: [facility] 07-19-2023 10:57-0400 Body mass index (BMI) [Ratio] 37.1 kg/m2 MD Shayy Dela Cruz Work Phone: [facility] 07-19-2023 10:57-0400 Body weight 92.07 kg MD Shayy Dela Cruz Work Phone: [facility] 07-19-2023 10:57-0400 Diastolic blood pressure 68 mm[Hg] MD Shayy Dela Cruz Work Phone: [facility] 07-19-2023 10:57-0400 Heart rate 89 /min MD Shayy Dela Cruz Work Phone: [facility] 07-19-2023 10:57-0400 Systolic blood pressure 132 mm[Hg] MD Shayy Dela Cruz Work Phone: [facility] 05-25-2023 11:00-0500 Body height 157.48 cm Cathie Scally Other [facility] 05-25-2023 11:00-0500 Body mass index (BMI) [Ratio] 37.23 kg/m2 Cathie Scally Other [facility] [employer] Other 05-25-2023 11:00-0500 Body weight 92.35 kg Cathie Scally Other [facility] 05-25-2023 11:00-0500 Diastolic blood pressure 71 mm[Hg] Cathie Scally Other [facility] 05-25-2023 11:00-0500 Respiratory rate 18 /min Cathie Scally Other [facility] [email or web address] Other 05-25-2023 11:00-0500 SaO2% (BldA) [Mass fraction] 95 % Cathie Vargas Other [facility] [employer] Other 05-25-2023 11:00-0500 Systolic blood pressure 139 mm[Hg] Cathie Vargas Other [facility] 04-15-2023 11:00-0500 Body height 157.48 cm Shayy Dela Cruz Other [facility] 04-15-2023 11:00-0500 Body mass index (BMI) [Ratio] 37.49 kg/m2 Shayy Dela Cruz Other [employer] Other 04-15-2023 11:00-0500 Body weight 92.99 kg Shayy Dela Cruz Other [facility] [email or web address] Other 04-15-2023 11:00-0500 Body weight 92.98 kg MD Shayy Dela Cruz Work Phone: [facility] 04-15-2023 11:00-0500 Diastolic blood pressure 84 mm[Hg] Shayy Dela Cruz Other [facility] 04-15-2023 11:00-0500 Systolic blood pressure 142 mm[Hg] Shayy Dela Cruz Other [facility] 06-22-2022 13:30-0500 Body height 157.48 cm Shayy Dela Cruz Other [email or web address] Other 06-22-2022 13:30-0500 Body mass index (BMI) [Ratio] 36.94 kg/m2 Shayy Dela Cruz Other [email or web address] Other 06-22-2022 13:30-0500 Body weight 91.63 kg Shayy Dela Cruz Other [email or web address] Other 06-22-2022 13:30-0500 Diastolic blood pressure 74 mm[Hg] Shayy Dela Cruz Other [email or web address] Other 06-22-2022 13:30-0500 SaO2% (BldA) [Mass fraction] 97 % Shayy Dela Cruz Other [email or web address] Other 06-22-2022 13:30-0500 Systolic blood pressure 112 mm[Hg] Shayy Dela Cruz Other [email or web address] Other Encounters Encounter Date Encounter Type Care Provider Facility Start: 02-23-2024 End: 02-23-2024 ambulatory Cathie Vargas [facility] Work Phone: Start: 02-23-2024 End: 02-23-2024 Patient encounter procedure RN GYN Cathie Vargas Work Phone: [facility] Work Phone: Start: 02-23-2024 End: 02-23-2024 ambulatory [facility] Work Phone: Start: 02-23-2024 End: 02-23-2024 Patient encounter procedure Count Includes [facility] Work Phone: Start: 01-17-2024 End: 01-17-2024 ambulatory [facility] Work Phone: Start: 01-17-2024 End: 01-17-2024 Patient encounter procedure Count Includes [facility] Work Phone: Start: 12-13-2023 End: 12-13-2023 ambulatory [facility] Work Phone: Start: 12-13-2023 End: 12-13-2023 Patient encounter procedure Count Includes [facility] Work Phone: Start: 12-05-2023 End: 12-05-2023 ambulatory [facility] Work Phone: Start: 12-05-2023 End: 12-05-2023 Patient encounter procedure [facility] Work Phone: Start: 11-07-2023 End: 11-07-2023 ambulatory [facility] Work Phone: Start: 11-07-2023 End: 11-07-2023 Patient encounter procedure Count Includes [facility] Work Phone: Start: 09-29-2023 End: 09-29-2023 ambulatory [facility] Work Phone: Start: 09-29-2023 End: 09-29-2023 Patient encounter procedure Count Includes [facility] Work Phone: Start: 09-06-2023 End: 09-06-2023 ambulatory [facility] Work Phone: Start: 09-06-2023 End: 09-06-2023 Patient encounter procedure Count Includes [facility] Work Phone: Start: 08-24-2023 End: 08-24-2023 ambulatory [facility] Work Phone: Start: 08-24-2023 End: 08-24-2023 Patient encounter procedure Count Includes [facility] Work Phone: Start: 08-19-2023 End: 08-19-2023 ambulatory MD Shayy Dela Cruz Work Phone: [facility] [place] Work Phone: Start: 08-19-2023 End: 08-19-2023 Patient encounter procedure MD Shayy Dela Cruz Work Phone: Count Includes [facility] Work Phone: Start: 07-28-2023 End: 07-28-2023 ambulatory MD Shayy Dela Cruz Work Phone: [facility] [place] Work Phone: Start: 07-28-2023 End: 07-28-2023 Patient encounter procedure MD Shayy Dela Cruz Work Phone: Count Includes [facility] Work Phone: Start: 07-19-2023 End: 07-19-2023 ambulatory MD Shayy Dela Cruz Work Phone: [facility] Work Phone: Start: 07-19-2023 End: 07-19-2023 Patient encounter procedure MD Shayy Dela Cruz Work Phone: Count Includes [facility] Work Phone: Start: 07-12-2023 Non-patient / Non-visit MD Shayy Dela Cruz Work Phone: [facility] [employer] Work Phone: Start: 06-14-2023 End: 06-14-2023 Patient encounter procedure MD Shayy Dela Cruz Work Phone: [facility] Work Phone: Start: 06-14-2023 End: 06-14-2023 ambulatory MD Shayy Dela Cruz Work Phone: [facility] [place] Work Phone: Start: 06-06-2023 End: 06-06-2023 ambulatory Shayy Dela Cruz Other [email or web address] Other Start: 06-06-2023 Telephone encounter Shayy Dela Cruz [facility] Start: 05-25-2023 [facility] visit new patient Cathie Sheikh y [facility] Start: 05-25-2023 End: 05-25-2023 ambulatory MD Shayy Dela Cruz Work Phone: [email or web address] Other Start: 05-25-2023 End: 05-25-2023 Discharged Recurring MD Shayy Dela Cruz Work Phone: [facility] Work Phone: Start: 05-25-2023 Registered Recurring MD Shayy Dela Cruz [facility] Work Phone: Start: 05-25-2023 End: 05-25-2023 Patient encounter procedure MD Shayy Dela Cruz Work Phone: Count Includes [facility]- Start: 05-12-2023 End: 05-12-2023 ambulatory Shayy Dela Cruz Other [email or web address] Other Start: 05-12-2023 Telephone encounter Shayy Dela Cruz [facility] Start: 05-10-2023 End: 05-10-2023 ambulatory Shayy Dela Cruz Other [email or web address] Other Start: 05-10-2023 Telephone encounter Shayy Dela Cruz [facility] Start: 04-22-2023 End: 04-22-2023 ambulatory Shayy Dela Cruz Other [email or web address] Other Start: 04-22-2023 Telephone encounter Shayy Dela Cruz [facility] Start: 04-20-2023 End: 04-20-2023 ambulatory Lynne Hernandez Other [email or web address] Other Start: 04-20-2023 Telephone encounter Lynne Avilat [facility] Start: 04-18-2023 End: 04-18-2023 ambulatory Lynne Avilat Other [email or web address] Other Start: 04-18-2023 Telephone encounter Lynne Avilat [facility] Start: 04-15-2023 End: 04-15-2023 ambulatory Shayy Dela Cruz Other [email or web address] Other Start: 04-15-2023 Office outpatient visit 15 minutes Shayy Dela Cruz [facility] Start: 04-15-2023 End: 04-15-2023 Patient encounter procedure MD Shayy Dela Cruz Work Phone: Count Includes [facility] Work Phone: Start: 04-06-2023 End: 04-06-2023 ambulatory Shayy Dela Cruz Other [email or web address] Other Start: 04-06-2023 Telephone encounter Shayy Dela Cruz [facility] Start: 02-25-2023 End: 02-25-2023 ambulatory Shayy Dela Cruz Other [email or web address] Other Start: 02-25-2023 Telephone encounter Shayy Dela Cruz [facility] Start: 12-13-2022 End: 12-13-2022 ambulatory [facility]QUES [facility] Start: 10-29-2022 End: 10-29-2022 ambulatory Shayy Dela Cruz Other [email or web address] Other Start: 10-29-2022 Telephone encounter Shayy Dela Cruz [facility] Start: 08-27-2022 End: 08-28-[address] SHAYY DELA CRUZ Facility:[facility] Start: 08-10-2022 End: 08-10-2022 ambulatory [facility] Start: 07-20-2022 End: 07-21-[address] SHAYY DELA CRUZ Facility:[facility] Start: 07-19-2022 End: 07-19-2022 ambulatory Shayy Dela Cruz Other [email or web address] Other Start: 07-19-2022 Telephone encounter Shayy Dela Cruz [facility] Start: 07-12-2022 End: 07-13-[address] SHAYY DELA CRUZ Facility:[facility] Start: 07-05-2022 End: 07-05-2022 ambulatory Shayy Dela Cruz Other [email or web address] Other Start: 07-05-2022 Telephone encounter Shayy Dela Cruz [facility] Start: 06-28-2022 End: 06-28-2022 ambulatory Shayy Dela Cruz Other [email or web address] Other Start: 06-28-2022 Telephone encounter Shayy Dela Cruz [facility] Start: 06-22-2022 End: 06-22-2022 ambulatory Shayy Dela Cruz Other [email or web address] Other Start: 06-22-2022 Office outpatient visit 15 minutes Shayy Dela Cruz [facility] Start: 05-27-2022 End: 05-27-2022 ambulatory Shayy Dela Cruz Other [email or web address] Other Start: 05-27-2022 Telephone encounter Shayy Dela Cruz [facility] Start: 05-19-2022 End: 05-20-[address] [...] lic 2000 panel - Serum or Plasma [facility] enter MG Breast - bilateral Screening [facility] Immunizations Immunization Date Immunization Notes Care Provider Fa cility 02-01-2022 influenza virus vaccine, split virus (incl. purified surface antigen) Shayy Dela Cruz Other [email or web address] Other 02-01-2022 influenza virus vaccine, unspecified formulation MD Shayy Dela Cruz Work Phone: [facility] Payers Date Payer Category Payer Medicare [id number] 2023 Self-pay 2021 Medicaid [id number] 2017 Unknown [id number] 1972 Unknown [id number] 2.16.84 [id number] 1972 Unknown [id number] 2.16.84 [id number] 1972 Unknown [id number] 2.16.84 [id number] 1972 Unknown [id number] 2.16.84 [id number] 1972 Unknown [id number] 2.16.84 [id number] 1972 Unknown [id number] 2.16.84 [id number] 1972 Unknown [id number] 2.16.84 [id number] 1972 Unknown [id number] 2.16.84 [id number] 1972 Unknown [id number] 2.16.84 [id number] 1957 Medicaid [id number] 2. [id number] 1957 Medicare [id number] . [id number] Unknown Unknown [id number] 2.16.8 [id number] Unknown [id number] 2.16.8 [id number] Social History Date Type Detail Facility Unknown if ever smoked [email or web address] Other Sex Assigned At Sex Assigned At Bir th [email or web address] Other Start: 1970 Sex Assigned At Female F [facility] Start: 07-19-2023 Tobacco smoking status NHIS Never smoked tobacco (finding) [facility] Medical Equipment Procedure Code Equipment Code Equipment [...] 2 diabetes mellitus with hyperglycemia, unspecified whether jail insulin use (ICD-10 - E11.65) [employer] Other 01-24-2024 Evaluation note* Encounter Date Diagnosis [...] Instructions material was published to portal May, [facility] current use of insulin (ICD-10 - Z79.4) May, BMI 37.0-37.9, adult (ICD-10 - Z68.37) May, Other 05/25/2023 The patient was given a Dexcom G7 sensor sample and an [employer] [place]. She was taught how to use the [...] educating the patient by Nguyễn Norwood RN, [facility]. [email or web address] Other 12-15-2023 Evaluation note* Encounter Date Diagnosis Assessment Notes Treatment Notes Treatment Clinical Notes Apr, Type 2 diabetes mellitus with hyperglycemia (ICD-10 - E11.65) Rx handwritten for diabetic shoes. Pt agrees to referral to specialty clinic. Continue present meds and discussed healthy diet in meantime. Apr, [facility] (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 of insulin (ICD-10 - Z79.4) [email or web address] Other 08-14-2023 NoteCardiology Clinic Note Subjective Zoila [...] Active Problem List Diagnosis Coronary arteriosclerosis in kashia artery Old myocardial infarction Sinusitis Type 1 [...] the IVC. Mitral V (more content not included)...[facility] 08-10-2022 NoteCardiology Clinic Note Subjective [...] Active Problem List Diagnosis Coronary arteriosclerosis in kashia artery Old myocardial infarction Sinusitis Type 1 [...] in size. The (more content not included)... 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 She declines and will continue meds, followup in 3 months, and recheck labs at that time. She is eating more of a keto diet and is certain that is helping her A1C improve. Jun, Screening mammogram for breast cancer (ICD-10 - Z12.31) Zoila will call for an [place] [email or web address] Other 01-31-2023 NoteIn light of elevated LDL will change simvastatin to lipitor 40 mg daily. Will repeat liver function and lipid level in 2 months. Staff to notify pt. Malcolm Evans REED DIPPER Division of Cardiology, [facility]- [phone] Pager- [phone] Email- [email or web address]01-18-2023 NotePatient here for 1 year follow up [...] light-headedness. All other systems reviewed and are negative.[facility] 05-19-2022 NoteUTP CARDIOLOGY PROGRESS NOTE [...] past 12 months Assessment/Plan: Coronary arteriosclerosis in kashia artery Coronary artery disease is stable, no [...] week RTC 1 month to review B/P [facility]01-18-2023 Note Hypertension is uncontrolled, Will add lisinopril 5 mg po daily, and continue metoprolol Goal b/p 130/80 or less, monitor for dry persistent cough- call office for any concerns, repeat BMP in 1 week RTC 1 month to review B/[facility]01-18-2023 Note Coronary artery disease is stable, no concerning symptoms continue risk factor modifications- heart healthy diet, regular exercise as tolerated and continue all medications.[facility] 04-15-2022 NotePROCEDURE: XR FOOT LT [...] Electronically authenticated by: NARINDER LAN Date: 2022-04-15 06:08[facility]09-12-20[facility] NotePROCEDURE: XR TOES RT MIN 2 V HISTORY: Pain of toe of right foot ; first toe pain following injury COMPARISON: None. FINDINGS: BONES:No fracture, acute abnormality, or significant arthropathy. SOFT TISSUES:No visible soft tissue swelling. EFFUSION:None visible. OTHER: Negative. IMPRESSION: 1. No acute bone abnormality. 2. Mild degenerative joint disease. Electronically authenticated by: NARINDER LAN Date: 2022-01-11 18:48[facility]+Reason for visit Narrative* Chief Complaint 3 Month Follow Up Referral Dr. Negro Dela Cruz DM download [facility] [place] Work Phone: chief complaint+Reason for visit Narrative* Chief Complaint 3 Month Follow Up Referral Dr. Negro Dela Cruz DM download Reason for Visit Type 2 diabetes holli [facility] Work Phone: chief complaint+Reason for visit Narrative* Chief Complaint Referral Dr. Negro LAGUERRE download 3 Month Check up Reason for Visit Type 2 diabetes holli [facility] Work Phone: chief complaint+Reason for visit Narrative* Chief Complaint Referral Dr. Negro LAGUERRE download 3 Month Check up amrik reader Reason for Visit Type 2 diabetes holli itus Right wrist fracture Type 2 diabetes mellitus [facility] [place] Work Phone: chief complaint+Reason for visit Narrative* [...] mellitus Vitamin D deficiency Gastroesophageal reflux disease [facility] [place] Work Phone: Evaluation noteNo [employer] Other Evaluation noteNo assessment information available [facility] [place] Work Phone: Evaluation note* Diagnosis Onset Date Resolution Status Type 2 diabetes mellitus acu te [facility] Work Phone: Evaluation note* Diagnosis Onset Date Resolution Status Type 2 diabetes mellitus acu te Right wrist fracture acute Type 2 diabetes mellitus acu te [facility] [place] Work Phone: Evaluation note* Diagnosis Onset Date Resolution Status Type 2 diabetes mellitus acu te Right wrist fracture acute Type 2 diabetes mellitus acu te BMI 37.0-37.9, adult acute Dietary counseling and surveillance acute History of myocardial infarction acute HTN (hypertension) acute Hyperlipidemia acute Long-term insulin use acute Type 2 diabetes mellitus acu te Vitamin D deficiency acute Gastroesophageal reflux disease acute [facility] [place] Work Phone: evaluation note* Diagnosis Onset Date [...] acute Type 2 diabetes mellitus acu te [facility] [place] Work Phone: evaluation note* Diagnosis Onset Date [...] acute Type 2 diabetes mellitus acu te [facility] [place] Work Phone: evaluation note* Diagnosis Onset Date [...] acute Type 2 diabetes mellitus acu te [facility] [place] Work Phone: evaluation note* Diagnosis Onset Date [...] te Screening mammogram for breast cancer acute [facility] [place] Work Phone: evaluation note* Diagnosis Onset Date [...] mellitus acu te Vitamin D deficiency acute [facility] [place] Work Phone: Evaluation note* Diagnosis Onset Date [...] acute Type 2 diabetes mellitus acu te [facility] [place] Work Phone: Evaluation note* Diagnosis Onset Date [...] mellitus acu te Vitamin D deficiency acute [facility] [place] Work Phone: Hislil[facility] general Narrative - Reported* Type Description Date Medical History Herpes labialis Medical History Candidiasis of mouth Medical History Type 2 diabetes holli itus with diabetic polyneuropathy, 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 Medical History Controlled type 2 di abetes mellitus with hyperglycemia, unspecified whether jail insulin use Medical History Obesity Medical History Dyslipidemia Medical History CAD in kashia artery Medical History Asthma, intermittent Medical History [...] History appendectomy Surgical History 7 stents 1999 [email or web address] Other Hislet[facility] general Narrative - Reported* Type Description Date Medical History Herpes labialis Medical History Candidiasis of mouth Medical History Type 2 diabetes holli itus with diabetic polyneuropathy, unspecified whether jail insulin use Medical History Controlled type 2 di abetes mellitus with hyperglycemia, unspecified whether jail insulin use Medical History Obesity Medical History Dyslipidemia Medical History CAD in kashia artery Medical History Asthma, intermittent Medical History [...] stents 1999 Hospitalization History see surgical history [email or web address] Other History general Narrative - Reported* Type Description Date Medical History Herpes labialis Medical History Candidiasis of mouth Medical History Type 2 diabetes holli itus with diabetic polyneuropathy, unspecified whether jail insulin use Medical History Controlled type 2 di abetes mellitus with hyperglycemia, unspecified whether jail insulin use Medical History Obesity Medical History Dyslipidemia Medical History CAD in kashia artery Medical History Asthma, intermittent Medical History [...] coronary 1999 Hospitalization History see surgical history [email or web address] Other Summary Purpose Family History No Family [...] itus with hyperglycemia (E11.65) Referral Organization [facility] Karli fuchs Referring Provider First Name Shayy Referring Provider Last Name Jose De Jesus Referring Provider Specialty [facility] Referred Organization [facility] Referred Provider Marcia Mendes Referred Address [address],[place], [place],[address] Referred Provider Specialty Nurse Huey saldaña Referral [...] and content) DATE CREATED AUTHOR 10/25/2017 [facility] DATE CREATED AUTHOR AUTHOR'S ORGANIZ ATION 09/03/2022 [facility] DATE CREATED AUTHOR AUTHOR'S ORGANIZ ATION 12/13/2022 [facility] DATE CREATED AUTHOR AUTHOR'S ORGANIZ ATION 02/25/2024 [facility] REASON FOR VISIT (unrecogniz ed section and content) labsmessage3 MONTH FOLLOW UP ACrefillmessagemessageRefill3 month Follow upDM [id number] ReferralrefillsNo InformationRefillReferral Dr. Negro Gallegos sensor running [...] BE BASED ON THE PRIMARY CLINICAL RECORDS. [facility]. provides no warranty or guarantee of the accuracy or completeness of information in this document.
== END 2024-04-27 09:16 | disposition home or self-care (01) ==
LOC: EC 09:15
PROVIDERS: PCP Family Medicine; Visit Provider Podiatrist Foot & Ankle Surgery
DX: M79.672 Pain in left foot (principal); S92.535D Nondisplaced fracture of distal phalanx of left lesser toe(s), subsequent encounter for fracture with routine healing
CPT/HCPCS: 73630

== ENCOUNTER 2024-05-02 10:01 | Outpatient (RCR) | payer MEDICARE, MEDICAID, SELFPAY | END 2024-06-13 08:12 | disposition home or self-care (01) | LOC: PT 10:01 | PROVIDERS: PCP Family Medicine; Visit Provider Podiatrist Foot & Ankle Surgery | DX: S86.011D Strain of right Achilles tendon, subsequent encounter (principal); M79.671 Pain in right foot; E11.42 Type 2 diabetes mellitus with diabetic polyneuropathy | CPT/HCPCS: 97035; 97110; 97112; 97140 ==

== ENCOUNTER 2024-05-06 19:11 | Emergency (ER) | payer MEDICARE, MEDICAID, SELFPAY ==
[2024-05-06 19:33] VITALS: BP 160/78; PULSE 92; TEMP 36.6; O2SAT 97; BMI 40.2
--- NOTE | 2024-05-06 19:56 | XR_ITS ---
[facility] [place] [id number] Patient Name: COLETTE DINH MRN: [id number] date: 1970 Sex: F Assigned Patient Location: ER Current Patient Location: Accession/Order Number: [id number] Exam Date: 05/06/2024 08:01 Report Date: 05/06/2024 21:27 At the request of: MALCOLM MARKER Procedure: XR toe LT min 2V EXAM: XR toe LT min 2V TECHNIQUE: AP, lateral and oblique views left toes HISTORY: 2nd toe infection COMPARISON: 04/27/2024 FINDINGS: Destructive appearance of the tuft of the second distal phalanx with overlying soft tissue swelling. Appearance is similar compared to 04/19/2024. Mild degenerative changes of the second digit. Vascular calcifications. XR/XR toe LT min 2V IMPRESSION: Suspicious for osteomyelitis of the tuft of the second distal phalanx. The appearance is fairly similar to 04/19/2024. Electronically authenticated by: EZE SHEPPARD Date: 05/06/2024 21:27
--- NOTE | 2024-05-06 19:58 | ED_ITS ---
HPI - Extremity Problem General Chief complaint: Extremity Problem, Nontraumatic Stated complaint: other Time Seen by Provider: 05/06/24 19:50 Source: patient Mode of arrival: walk-in Limitations: no limitations History of Present Illness HPI Narrative: This 54-year-old female who is currently on antibiotics and being treated by Dr. Bruce for an osteomyelitis of the left second toe presents for evaluation of bleeding from the toe. She states that she was putting dishes away and went to change her bandage and had a large amount of bleeding from the bottom of the toe. She could not tell where the bleeding was coming from. She called EMS and was brought to the emergency department for evaluation. She denies any injury. She has not had any fever. She states the toe looks a lot better than it did wh en she started her antibiotic treatment. She has had several x-rays done of the toe but would like another x-ray done so when she sees Dr. Bruce She denies any fevers or chills. She denies any pain in the toe. The bleeding has stopped at this time. Related Data Home Medications ?Medication ?Instructions ?Recorded ?Confirmed albuterol sulfate 90 mcg/actuation 2 inh inhalation PRN PRN shortness 12/31/22 04/19/24 aerosol inhaler of breath or wheezing aspirin 81 mg capsule 81 mg PO DAILY 12/31/22 04/19/24 atorvastatin 40 mg tablet 40 mg PO DAILY 12/31/22 04/19/24 carvedilol 6.25 mg tablet 6.25 mg PO Q12H 12/31/22 04/19/24 esomeprazole magnesium 40 mg 40 mg PO Q24H 12/31/22 04/19/24 capsule,delayed release fluticasone propionate 110 3 puff inhalation PRN PRN 12/31/22 04/19/24 mcg/actuation HFA aerosol inhaler bronchospasm (Flovent HFA) glipizide 10 mg tablet 10 mg PO BID 12/31/22 04/19/24 hydrochlorothiazide 12.5 mg capsule 12.5 mg PO DAILY 12/31/22 04/19/24 insulin glargine U-300 conc 300 unit subcut 12/31/22 unit/mL (1.5 mL) subcutaneous pen (Bill Astudillo U-300 Insulin) insulin lispro 100 unit/mL subcut 12/31/22 subcutaneous pen losartan 25 mg tablet 25 mg PO DAILY 12/31/22 04/19/24 metformin 1,000 mg tablet 500 mg PO BID 12/31/22 04/19/24 famotidine 20 mg tablet mg 04/19/24 meloxicam 15 mg tablet mg 04/19/24 nitroglycerin 0.4 mg sublingual mg 04/19/24 tablet Previous Rx's ?Medication ?Instructions ?Recorded ibuprofen 600 mg tablet 600 mg PO TID PRN pain #30 tabs 09/04/23 amoxicillin 875 mg-potassium 1 tab PO BID #14 tabs 04/19/24 clavulanate 125 mg tablet Allergies Allergy/AdvReac Type Severity Reaction Status Date / Time tomato Allergy Severe Nausea Verified 05/06/24 19:38 latex Allergy Intermediate itch Verified 05/06/24 19:38 insulin lispro Allergy Mild Rash Verified 05/06/24 19:38 codine AdvReac Intermediate Vomiting Uncoded 05/06/24 19:38 Review of Systems ROS Status of ROS 10 or more systems reviewed and unremark able except as noted in history and below [facility] Social History Smoking status: Never smoker Little interest or pleasure in doing things: not at all Feeling down, depressed, or hopeless: not at all Exam Narrative Exam Narrative: Vital signs and Nursing Notes reviewed: Patient is afebrile with a normal pulse, blood pressure is elevated at 160/78, she is not hypoxic with pulse ox of 97% on room air General: Overweight female, she is awake, alert, oriented, no acute distress, lying comfortably on the stretcher HEENT: Normocephalic atraumatic, mucous membranes are moist and pink, eyes are clear, normal conjunctiva, vision is grossly intact Chest: Lungs are clear to auscultation with good air entry, there is no wheezing rhonchi or rales appreciated no accessory muscle use, patient is speaking in complete sentences-no chest wall tenderness to palpation CVS: Regular rate and rhythm S1-S2, no murmurs rubs or gallops, pulses are brisk and equal bilaterally ABD: Soft, nondistended, nontender, no rebound guarding or rigidity, bowel sounds are normal, no pulsatile masses appreciated Extremities: There is mild swelling and redness to the distal end of the left second toe. The base of the toe has a piece of missing skin. There is no active bleeding. There is no drainage or sign of necrosis. There is no lymphangitic streaking or sign of gangrene. There is no crepitus in the toe or foot. There is no foul smell. The remainder of the foot is normal in appearance with normal capillary refill and strong peripheral pulses. Skin: Normal in appearance without rash,pallor, petechiae or purpura Neuro: No focal deficits Constitutional Vital Signs, click to edit/add: Last Vital Signs Temp 97.9 F 05/06/24 19:33 Pulse 92 H 05/06/24 19:33 Resp 18 05/06/24 19:33 BP 160/78 H 05/06/24 19:33 Pulse Ox 97 05/06/24 19:33 O2 Del Method Room Air 05/06/24 19:33 Course Vital Signs Vital signs: Vital Signs Temperature 97.9 F 05/06/24 19:33 Pulse Rate 92 H 05/06/24 19:33 Respiratory Rate 18 05/06/24 19:33 Blood Pressure 160/78 H 05/06/24 19:33 Pulse Oximetry 97 05/06/24 19:33 Oxygen Delivery Method Room Air 05/06/24 19:33 Temperature 97.9 F 05/06/24 19:33 Pulse Rate 92 H 05/06/24 19:33 Respiratory Rate 18 05/06/24 19:33 Blood Pressure 160/78 H 05/06/24 19:33 Pulse Oximetry 97 05/06/24 19:33 Oxygen Delivery Method Room Air 05/06/24 19:33 MDM - Extremity (Nontraumatic) MDM Narrative Medical decision making narrative: This 54-year-old female who is being treated for a left second toe osteomyelitis by Dr. Bruce and is on Augmentin according to her records is brought to the emergency department by EMS after she took the dressing off of her left great toe and it was bleeding. She denies any injury to it. The bleeding had stopped prior to arrival but she does have a skin defect on the plantar aspect of the left second toe.. She states the toe looks a lot better than it did prior to receiving antibiotics. She has not had a fever. There is no sign of necrosis or gangrene to the foot. There is no lymphangitic streaking. She requested an x-ray be repeated because she is supposed to see Dr. Bruce in follow up. X-ray was reviewed by radiology and shows a destructive appearance of the tuft of the second toe similar to prior x-rays. There is no notable gas in the tissues and again the patient does not have any sign of gangrene. The wound on the bottom of her foot was cleaned and a dressing was replaced by the nursing staff and she was placed in a postop shoe. She was encouraged to continue her antibiotics and return to the emergency department for worsening symptoms or any concerns. Medical Records Medical records narrative: [place] [address] XRay Report Signed Patient: COLETTE DINH MR#: [id number] : 1970 Acct:[id number] Age/Sex: 54 / F ADM Date: 05/06/24 Loc: ER Attending Dr: Ordering Physician: Shelly Gaviria Date of Service: 05/06/24 Procedure(s): XR toe LT min 2V Accession Number(s): [id number] cc: Shayy Ly M.D.; Shelly Gaviria~ [facility] [place] [id number] Patient Name: COLETTE DINH MRN: [id number] date: 1970 Sex: F Assigned Patient Location: ER Current Patient Location: Accession/Order Number: [id number] Exam Date: 05/06/2024 08:01 Report Date: 05/06/2024 21:27 At the request of: SHELLY GAVIRIA Procedure: XR toe LT min 2V EXAM: XR toe LT min 2V TECHNIQUE: AP, lateral and oblique views left toes HISTORY: 2nd toe infection COMPARISON: 04/27/2024 FINDINGS: Destructive appearance of the tuft of the second distal phalanx with overlying soft tissue swelling. Appearance is similar compared to 04/19/2024. Mild degenerative changes of the second digit. Vascular calcifications. XR/XR toe LT min 2V IMPRESSION: Suspicious for osteomyelitis of the tuft of the second distal phalanx. The appearance is fairly similar to 04/19/2024. Electronically authenticated by: EZE SHEPPARD Date: 05/06/2024 21:27 Discharge Plan Discharge Chief Complaint: Extremity Problem, Nontraumatic Clinical Impression: Open toe wound, Osteomyelitis of toe of left foot Patient Disposition: Home, Self-Care Time of Disposition Decision: 20:53 Prescriptions / Home Meds: No Action albuterol sulfate 90 mcg/actuation HFA aerosol inhaler 2 inh INHALATION PRN PRN (Reason: shortness of breath or wheezing) insulin lispro 100 unit/mL insulin pen SUBCUT insulin glargine U-300 conc [T[employer] SoloStar U-300 Insulin] 300 unit/mL (1.5 mL) insulin pen SUBCUT aspirin 81 mg capsule 81 mg PO DAILY atorvastatin 40 mg tablet 40 mg PO DAILY losartan 25 mg tablet 25 mg PO DAILY fluticasone propionate [Flovent HFA] 110 mcg/actuation HFA aerosol inhaler 3 puff INHALATION PRN PRN (Reason: bronchospasm) esomeprazole magnesium 40 mg capsule,delayed release(DR/EC) 40 mg PO Q24H glipizide 10 mg tablet 10 mg PO BID hydrochlorothiazide 12.5 mg capsule 12.5 mg PO DAILY metformin 1,000 mg tablet 500 mg PO BID carvedilol 6.25 mg tablet 6.25 mg PO Q12H ibuprofen 600 mg tablet 600 mg PO TID PRN (Reason: pain) Qty: 30 0RF meloxicam 15 mg tablet famotidine 20 mg tablet nitroglycerin 0.4 mg tablet, sublingual amoxicillin-pot clavulanate 875-125 mg tablet 1 tab PO BID Qty: 14 0RF Print Language: Panamanian Instructions: Osteomyelitis (ED) Referrals: Shayy Ly MD [Primary Care Provider] - 1 week Discharge Date/Time: 05/06/24 21:28
--- NOTE | 2024-05-06 21:20 | PC.NURSE ---
L second toe with a blister to the toe pad. Blister is ruptured. Area cleansed and dressed. Surgical shoe applied.
--- NOTE | 2024-05-06 21:25 | PC.NURSE ---
Written and verbal d/C instructions reviewed with pt. She verbalized understanding and plans to comply with podiatry.
== END 2024-05-06 21:28 | disposition home or self-care (01) ==
PROVIDERS: Emergency Provider Emergency Medicine; PCP Family Medicine
DX: S91.105A Unspecified open wound of left lesser toe(s) without damage to nail, initial encounter (principal); M86.8X7 Other osteomyelitis, ankle and foot
CPT/HCPCS: 73660; 99283

== ENCOUNTER 2024-05-09 13:00 | Outpatient (OUT) | payer MEDICARE, MEDICAID, SELFPAY ==
--- NOTE | 2024-05-09 13:04 | VEIN_ITS ---
[facility] [place] [id number] Patient Name: COLETTE DINH MRN: [id number] date: 1970 Sex: F Assigned Patient Location: Current Patient Location: Accession/Order Number: [id number] Exam Date: 05/09/2024 13:04 Report Date: 05/09/2024 14:53 At the request of: JORDYN SANCHEZ Procedure: VC SEGMENTAL PRESSURES EXAM: VC SEGMENTAL PRESSURES HISTORY: R09.89 COMPARISON: None. FINDINGS: Segmental pressures presented as follows (right, left) in mmHg. Brachial: 132, N/A Lower thigh: 178, 201 Calf: 179, 174 DPA: 248, 234 ROSIN BARREL FILLER: 259, 113 1st Toe: 86, 103 HIEU: 1.96, 1.77 TBI: 0.65, 0.78 The ABIs are elevated The TBI's are Acceptable PVR waveforms: Right leg: Thigh: Normal Above knee: Normal Below knee: Normal Right ankle: Normal Left leg: Thigh: Normal Above knee: Normal Below knee: Normal Right ankle: Normal VEIN/VC SEGMENTAL PRESSURES IMPRESSION: Elevated ABIs suggest bilateral calcific atherosclerosis Normal PVR waveforms Electronically authenticated by: JOHN JAVED Date: 05/09/2024 14:53
== END 2024-05-09 13:01 | disposition home or self-care (01) ==
LOC: VC 13:00
PROVIDERS: PCP Family Medicine; Visit Provider Podiatrist Foot & Ankle Surgery
DX: R09.89 Other specified symptoms and signs involving the circulatory and respiratory systems (principal)
CPT/HCPCS: 93923

== ENCOUNTER 2024-05-15 13:25 | Outpatient (OUT) | payer MEDICARE, MEDICAID, SELFPAY ==
--- OUTSIDE RECORDS SUMMARY | 2024-05-15 13:30 | XMS_ITS | CCD ---
Author Organization [facility] CliniSyde Care Team Providers Care Policy Issue Clerk Name Role Phone PHYSICIAN, DEFAULT Unavailable Unavailable [...] MD Shayy Dela Cruz Attending Provider Sam, PUPIL PERSONNEL SERVICES DIRECTOR Cathie C Attending Provider Scally, Cathie C Admitting Unavailable Sam, Cathie C Attending Unavailable Shayy Dela Cruz Admitting Unavailable Shayy Dela Cruz Primary Care Unavailable Shayy Dela Cruz Attending Unavailable Brittani Collier Admitting Unavailable Brittani Collier Attending Unavailable Shayy Dela Cruz Primary Care Unavailable Allergies Allergy Classification Reported Allergen(s) Allergy Type Date of Onset Reaction(s) Facility (1 source) codeine Drug Allergy 9 [facility] Repository (17 sources) Latex; Translations: [LATEX] Drug allergy (disorder) 9 sores on skin [facility] Repository (20 sources) Codeine; Translations: [CODEINE] Drug Allergy 0 nausea [facility] Repository (18 sources) Latex Drug allergy sores on skin [facility] Other (1 source) Codeine Drug Allergy The [facility] Repository (1 source) atorvastatin; Translations: [ATORVASTATIN] Drug Allergy 3 [facility] Repository (6 sources) cat dander Allergy to substance 4 Sneezing, Itching [facility] (6 sources) dog dander Allergy to substance 4 Sneezing, Itching [facility] (6 sources) ozempic Propensity to adverse reactions 4 Vomiting [facility] (1 source) Codeine Drug Allergy 4 [facility] Repository (1 source) Latex Drug allergy (disorder) 4 [facility] Repository Medications Current Medications Medication Drug Class(es) Dates Sig (Normalized) Sig (Original) sut231959 200 actuat albuterol 0.09 mg/actuat metered dose [...] May, Active Blood-Glucose Meter,Continuo us (Dexcom G7 Director Of Integrated Marketing) misc (4 sources) Start: 12-13-2023 Blood-Glucose Meter,Continuous (Dexcom G7 Director Of Integrated Marketing) misc Active 0 .Route December 13, 2023 12:00am As directed Start: 12-13-2023 Blood-Glucose Meter,Continuous (Dexcom G7 Director Of Integrated Marketing) misc Active 0 .ROUTE December 13, 2023 [...] Orally Once a day Active Dexcom G7 Director Of Integrated Marketing - (4 sources) Start: 06-03-19 24 Dexcom G7 Director Of Integrated Marketing - as directed as directed 4 x [...] De Jesus Reyes take 1 capsule by [facility] once daily Esomeprazole Magnesium 40 mg [...] Once a day Active [employer]Style Amrik [facility] [place] - (3 sources) Start: 06-06-2023 FreeStyle Libr e 3 [place] - as directed invitro 4 times daily [...] Jun, Not-Taking/PRN Blood-Glucose Meter,Continuous ([employer] [place]) misc (11 sources) Start: 07-28-2023 End: 12-13-2023 Blood-Glucose Meter,Continuous (Freestyle [employer] [place]) misc Discontinued EACH .ROUTE .MEDSUPPLY July 28, 2023 12:00am December 13, 2023 1:09pm As directed Start: 07-28-2023 Blood-Glucose Meter,Continuous (Freestyle [employer]rik [employer] [place]) misc Active EACH .ROUTE .MEDSUPPLY July 28, [...] angina pectoris; Translations: [Atherosclerotic heart disease of [place] coronary artery without angina pectoris] Onset: 03-24-2022 [...] Onset: 11-09-2021 Chronic Other aftercare (17 sources) 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; Translations: [Long-term (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 of insulin] Onset: 04-08-2022 Episodic Other aftercare (20 sources) Long-term current use of insulin; Translations: [retirement (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 of insulin] 07-28-2023 Episodic Other [...] Onset: 04-08-2022 Episodic Other aftercare (1 source) retirement (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; Translations: [PENITENTIARY CURRENT USE OF ASPIRIN] Onset: 04-08-2022 Episodic Other aftercare (1 source) retirement (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 of oral hypoglycemic drugs; Translations: [WATERSHED PROGRAM MANAGER USE ORAL HYPOGLYCEMIC DX] Onset: 04-08-2022 Episodic Other aftercare (1 source) Other long term care administrator (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 therapy; Translations: [OTH PENITENTIARY CURRENT DRUG THERAPY] Onset: 11-09-2021 Episodic Other [...] on 02-23-2024 Creatinine (U) [Mass/Vol] 28.00 mg/dL [facility] Comment on above: No reference range e stablished MicroAlb Creat Ratio,Uon Creatinine, Urine (Random) 28.00 mg/dL Normal [facility] Comment on above: Result Comment: No r eference range established Performed By: #### U RMACRERAT #### [address] Microalbumin/Creati nine Ratio Not performed Normal 0.0-30.0 [facility] Comment on above: Result Comment: PERF ORMED BY: [place] [address] PATHOLOGIST WAREHOUSE OPERATIONS MANAGER RUBINA RICCI M.D. Performed By: #### U RMACRERAT #### [address] Microalbumin [Mass/volume] i n UrineOrdered By: Cathie Vargas on 02-23-2024 Albumin DL <= 20 mg/L (U) [Mass/Vol] mg/dL Normal 0.0-1.8 [facility] Comment on above: Performed By: #### U RMACRERAT #### [facility] [address] [place] [address] Urine microalbumin/creatinin e mass ratioOrdered By: Cathie Vargas on 02-23-2024 Albumin/Creatinine DL <= 20 mg/L (U) [Mass ratio] TNP [facility] Comment on above: Test not performed HbA1c HPLC (Bld) [Mass fract ion]on 12-13-2023 HbA1c (Bld) [Mass fraction] 9.9 % [facility] No Panel Informationon 12-12 Bedside Glucose 118 [facility] No Panel Informationon 09-28 Bedside Glucose 278 [facility] HbA1c HPLC (Bld) [Mass fract ion]on 07-28-2023 HbA1c (Bld) [Mass fraction] 10.3 % [facility] No Panel Informationon 07-27 Bedside Glucose 126 [facility] Basophils Auto (Bld) [#/Vol] on 07-12-2023 Basophils (Bld) [#/Vol] 0.0 10 3/uL 0.0-0.1 [facility] Basophils/100 WBC Auto (Bld) on 07-12-2023 Basophils/100 WBC (Bld) 0.5 % 0.2-2.0 [facility] Eosinophils/100 WBC Auto (Bl d)on 07-12-2023 Eosinophils/100 WBC (Bld) 1.5 % 0.9-7.0 [facility] Erythrocyte distribution wid th Auto (RBC) [Ratio]on 07-12-2023 Erythrocyte distribution width (RBC) [Ratio] 12.7 % 11.0-15.0 [facility] Estimated glomerular filtrat ion rate (GFR) non- Americanon 07-12-2023 GFR/1.73 sq M.predicted among non-blacks MDRD (S/P/Bld) [Vol rate/Area] mL/min/{1.73_m2} >=60 [facility] Hematocrit Auto (Bld) [Volum e fraction]on 07-12-2023 Hematocrit (Bld) [Volume fraction] 42.8 % 36.0-48.0 [facility] Hemoglobin [Mass/volume] in Bloodon 07-12-2023 Hemoglobin (Bld) [Mass/Vol] 14.3 g/dL 12.0-16.0 [facility] Laboratory - Chemistry and C hemistry - challengeon 07-12-2023 Calcium [Mass/Vol] 9.1 mg/dL 8.5-10.1 [facility] Chloride [Moles/Vol] 100 mmol/L 98-107 [facility] CO2 [Moles/Vol] 26.1 mmol/L 21.0-32.0 [facility] Creatinine [Mass/Vol] 0.78 mg/dL 0.55-1.02 [facility] GFR/1.73 sq M.predicted MDRD (S/P/Bld) [Vol rate/Area] mL/min/{1.73_m2} >=60 [facility] Glucose [Mass/Vol] 215 mg/dL 74-106 [facility] Potassium [Moles/Vol] 4.0 mmol/L 3.5-5.1 [facility] Sodium [Moles/Vol] 137 mmol/L 136-145 [facility] Urea nitrogen [Mass/Vol] 12.0 mg/dL 7.0-18.0 [facility] Urea nitrogen/Creatinine [Mass ratio] 15.4 mg/mg [facility] Laboratory - Hematology and Cell countson 07-12-2023 Immature granulocytes/100 WBC (Bld) 0.1 % 0.0-0.5 [facility] Leukocytes [#/volume] correc alma delia for nucleated erythrocytes in Blood by Automated counon 07-12-2023 WBC corrected for nucl RBC Auto (Bld) [#/Vol] 7.8 10 3/uL 4.0-11.0 [facility] Lymphocytes Auto (Bld) [#/Vo l]on 07-12-2023 Lymphocytes (Bld) [#/Vol] 2.7 10 3/uL 1.2-3.8 [facility] Lymphocytes/100 WBC Auto (Bl d)on 07-12-2023 Lymphocytes/100 WBC (Bld) 34.1 % 20.5-60.0 [facility] MCH Auto (RBC) [Entitic mass ]on 07-12-2023 MCH (RBC) [Entitic mass] 29.2 pg 26.7-34.0 [facility] MCHC Auto (RBC) [Mass/Vol]on 07-12-2023 MCHC (RBC) [Mass/Vol] 33.4 g/dL 29.9-35.2 [facility] MCV Auto (RBC) [Entitic vol] on 07-12-2023 MCV (RBC) [Entitic vol] 87.5 fL 81.0-99.0 [facility] Monocytes Auto (Bld) [#/Vol] on 07-12-2023 Monocytes (Bld) [#/Vol] 0.5 10 3/uL 0.3-0.8 [facility] Monocytes/100 WBC Auto (Bld) on 07-12-2023 Monocytes/100 WBC (Bld) 6.4 % 1.7-12.0 [facility] Neutrophils Auto (Bld) [#/Vo l]on 07-12-2023 Neutrophils (Bld) [#/Vol] 4.5 10 3/uL 1.4-6.5 [facility] Neutrophils/100 WBC Auto (Bl d)on 07-12-2023 Neutrophils/100 WBC (Bld) 57.4 % 43.0-75.0 [facility] No Panel Informationon 07-11 Eosinophils # (Auto) 0.1 10 3/uL 0.0-0.7 [facility] Immature Granulocyte # (Auto) 0.01 10 3/uL 0.00-0.03 [facility] Platelet mean volume Auto (B ld) [Entitic vol]on 07-12-2023 Platelet mean volume (Bld) [Entitic vol] 10.9 fL 9.5-13.5 [facility] Platelets Auto (Bld) [#/Vol] on 07-12-2023 Platelets (Bld) [#/Vol] 259 10 3/uL 150-450 [facility] RBC Auto (Bld) [#/Vol]on RBC (Bld) [#/Vol] 4.89 10 6/uL 4.20-5.40 [facility] Serum or plasma anion gap de terminationon 07-12-2023 Anion gap [Moles/Vol] 14.9 mmol/L [facility] Glucose - FINGER STICKon Glucose [Mass/Vol] 360 mg/dL [facility] Other Office Visiton 12-13-2022 Follow-up visit [id number] Arlette Ramos 1970 F Date Provider Department Center 12/13/2022 [id number]-MARQUES [facility] No family history on file Level of Service:85402 MD OFFICE/OUTPATIENT ESTABLISHED LOW MDM 20-29 MIN Reason for Visit and Comments: Follow-up [099845] - 4 mo follow up Normal [facility] CBC AUTO DIFFon 08-27-2022 BASO # 0.0 103/ul Normal 0.0-0.1 [facility] Comment on above: Performed By: #### C BC #### [facility] [address] [place] [address] Dr. Sarah Church Basophils/100 WBC (Bld) 0.5 % Normal 0.2-2.0 [facility] Comment on above: Performed By: #### C BC #### [facility] [address] [place] [address] Dr. Sarah Church EO # 0.2 103/ul Normal 0.0-0.7 [facility] Comment on above: Performed By: #### C BC #### [facility] [address] [place] [address] Dr. Sarah Church Eosinophils/100 WBC (Bld) 2.2 % Normal 0.9-7.0 [facility] Comment on above: Performed By: #### C BC #### [facility] [address] [place] [address] Dr. Sarah Church Erythrocyte distribution width (RBC) [Ratio] 12.5 % Normal 11.0-15.0 [facility] Comment on above: Performed By: #### C BC #### [facility] [address] [place] [address] Dr. Sarah Church Hematocrit (Bld) [Volume fraction] 44.1 % Normal 36.0-48.0 [facility] Comment on above: Performed By: #### C BC #### [facility] [address] [place] [address] Dr. Sarah Church Hemoglobin (Bld) [Mass/Vol] 15.1 g/dL Normal 12.0-16.0 [facility] Comment on above: Performed By: #### C BC #### [facility] [address] [place] [address] Dr. Sarah Church IG # 0.02 10e3/ul Normal 0.00-0.03 [facility] Comment on above: Performed By: #### C BC #### [facility] [address] [place] [address] Dr. Sarah Church IG % 0.2 % Normal 0.0-0.5 [facility] Comment on above: Performed By: #### C BC #### [facility] [address] [place] [address] Dr. Sarah Church LYMPH # 2.9 103/ul Normal 1.2-3.8 [facility] Comment on above: Performed By: #### C BC #### [facility] [address] [place] [address] Dr. Sarah Church Lymphocytes/100 WBC (Bld) 33.4 % Normal 20.5-60.0 [facility] Comment on above: Performed By: #### C BC #### [facility] [address] [place] [address] Dr. Sarah Church MANUAL DIFF REQ NO Normal [facility] Comment on above: Performed By: #### C BC #### [facility] [address] [place] [address] Dr. Sarah Church MCH (RBC) [Entitic mass] 29.1 pg Normal 26.7-34.0 [facility] Comment on above: Performed By: #### C BC #### [facility] [address] [place] [address] Dr. Sarah Church MCHC (RBC) [Mass/Vol] 34.2 g/dL Normal 29.9-35.2 [facility] Comment on above: Performed By: #### C BC #### [facility] [address] [place] [address] Dr. Sarah Church MCV (RBC) [Entitic vol] 85.0 fL Normal 81.0-99.0 [facility] Comment on above: Performed By: #### C BC #### [facility] [address] [place] [address] Dr. Sarah Church MONO # 0.6 103/ul Normal 0.3-0.8 [facility] Comment on above: Performed By: #### C BC #### [facility] [address] [place] [address] Dr. Sarah Church Monocytes/100 WBC (Bld) 6.8 % Normal 1.7-12.0 [facility] Comment on above: Performed By: #### C BC #### [facility] [address] [place] [address] Dr. Saarh Church NEUT # 4.9 103/ul Normal 1.4-6.5 [facility] Comment on above: Performed By: #### C BC #### [facility] [address] [place] [address] Dr. Sarah Church Neutrophils/100 WBC (Bld) 56.9 % Normal 43.0-75.0 [facility] Comment on above: Performed By: #### C BC #### [facility] [address] [place] [address] Dr. Sarah Church Platelet mean volume (Bld) [Entitic vol] 10.8 fL Normal 9.5-13.5 [facility] Comment on above: Performed By: #### C BC #### [facility] [address] [place] [address] Dr. Sarah Church PLT 276 103/ul Normal 150-450 [facility] Comment on above: Performed By: #### C BC #### [facility] [address] [place] [address] Dr. Sarah Church RBC 5.19 106/ul Normal 4.20-5.40 [facility] Comment on above: Performed By: #### C BC #### [facility] [address] [place] [address] Dr. Sarah Church WBC 8.6 103/ul Normal 4.0-11.0 [facility] Comment on above: Performed By: #### C BC #### [facility] [address] [place] [address] Dr. Sarah Church LIPID PROFILEon 08-27-2022 CHOL-HDL RATIO NORM SEE BELOW Normal [facility] Comment on above: Result Comment: 3.3 - 4.4 LOW RISK 4.4 - 7.1 AVERAGE RISK 7.1 - 11.0 MODERATE RISK >11.0 HIGH RISK Performed By: #### L IPID, CMP #### [facility] [address] [place] [address] Dr. Sarah Church Cholesterol [Mass/Vol] 110 mg/dL Normal <=200 [facility] Comment on above: Performed By: #### L IPID, CMP #### [facility] [address] [address] [address] Sarah Church Cholesterol in HDL [Mass/Vol] 33 mg/dL Critically low 40-60 [facility] Comment on above: Performed By: #### L IPID, CMP #### [facility] [address] [address] [address] Sarah Church Cholesterol in LDL [Mass/Vol] 58.0 mg/dL Normal [facility] Comment on above: Performed By: #### L IPID, CMP #### [facility] [address] [address] [address] Sarah Church Cholesterol.total/C holesterol in HDL [Mass ratio] 3.3 {ratio} Normal [facility] Comment on above: Performed By: #### L IPID, CMP #### [facility] [address] [address] [address] Sarah Church HDL NORMAL > or = 60 mg/dl - LO W CARDIOVASCULAR RISK <40 mg/dl - HIGH CARDIOVASCULAR RISK Normal [facility] Comment on above: Performed By: #### L IPID, CMP #### [facility] [address] [address] [address] Sarah Church LDL CALC NORMAL SEE BELOW Normal [facility] Comment on above: Result Comment: <100 mg/dl OPTIMAL 100 - 129 mg/dl NEAR OR ABOVE OPTIMAL 130 - 159 mg/dl BORDERLINE HIGH 160 - 189 mg/dl HIGH >190 mg/dl VERY HIGH Performed By: #### L IPID, CMP #### [facility] [address] [address] [address] Sarah Church Triglyceride [Mass/Vol] 95 mg/dL Normal <=150 [facility] Comment on above: Performed By: #### L IPID, CMP #### [facility] [address] [address] [address] Sarah Church VLDL CALC 19.0 mg/dL Normal [facility] Comment on above: Performed By: #### L IPID, CMP #### [facility] [address] [address] [address] Sarah Church PROF 14(COMP METB)on 023 Albumin [Mass/Vol] 3.3 g/dL Critically low 3.4-5.0 [facility] Comment on above: Performed By: #### L IPID, CMP #### [facility] [address] [place] [address] Dr. Sarah Church Albumin/Globulin [Mass ratio] 0.8 {ratio} Normal [facility] Comment on above: Performed By: #### L IPID, CMP #### [facility] [address] [place] [address] Dr. Sarah Church ALP [Catalytic activity/Vol] 100 U/L Normal 46-116 [facility] Comment on above: Performed By: #### L IPID, CMP #### [facility] [address] [place] [address] Dr. Sarah Church ALT [Catalytic activity/Vol] 74 U/L Critically high 14-59 [facility] Comment on above: Performed By: #### L IPID, CMP #### [facility] [address] [place] [address] Dr. Sarah Church Anion gap [Moles/Vol] 13.2 mmol/L Normal [facility] Comment on above: Performed By: #### L IPID, CMP #### [facility] [address] [place] [address] Dr. Sarah Church AST [Catalytic activity/Vol] 42 U/L Critically high 15-37 [facility] Comment on above: Performed By: #### L IPID, CMP #### [facility] [address] [place] [address] Dr. Sarah Church Bilirubin [Mass/Vol] 0.4 mg/dL Normal 0.2-1.0 [facility] Comment on above: Performed By: #### L IPID, CMP #### [facility] [address] [place] [address] Dr. Sarah Church Calcium [Mass/Vol] 9.2 mg/dL Normal 8.5-10.1 [facility] Comment on above: Performed By: #### L IPID, CMP #### [facility] [address] [place] [address] Dr. Sarah Church Chloride [Moles/Vol] 99 mmol/L Normal 98-107 [facility] Comment on above: Performed By: #### L IPID, CMP #### [facility] [address] [place] [address] Dr. Sarah Church CO2 [Moles/Vol] 30.4 mmol/L Normal 21.0-32.0 [facility] Comment on above: Performed By: #### L IPID, CMP #### [facility] [address] [place] [address] Dr. Sarah Church Creatinine [Mass/Vol] 0.78 mg/dL Normal 0.55-1.02 [facility] Comment on above: Performed By: #### L IPID, CMP #### [facility] [address] [place] [address] Dr. Sarah Church EGFR-AF GREEK >60 Normal >=60 [facility] Comment on above: Performed By: #### L IPID, CMP #### [facility] [address] [place] [address] Dr. Sarah Church EGFR-NON AF GREEK >60 Normal >=60 [facility] Comment on above: Performed By: #### L IPID, CMP #### [facility] [address] [place] [address] Dr. Sarah Church Globulin (S) [Mass/Vol] 4.0 g/dL Normal [facility] Comment on above: Performed By: #### L IPID, CMP #### [facility] [address] [place] [address] Dr. Sarah Church Glucose [Mass/Vol] 255 mg/dL Critically high 74-106 [facility] Comment on above: Performed By: #### L IPID, CMP #### [facility] [address] [place] [address] Dr. Sarah Church Potassium [Moles/Vol] 3.6 mmol/L Normal 3.5-5.1 [facility] Comment on above: Performed By: #### L IPID, CMP #### [facility] [address] [address] [address] Sarah Church Protein [Mass/Vol] 7.3 g/dL Normal 6.4-8.2 [facility] Comment on above: Performed By: #### L IPID, CMP #### [facility] [address] [address] [address] Sarah Church Sodium [Moles/Vol] 139 mmol/L Normal 136-145 [facility] Comment on above: Performed By: #### L IPID, CMP #### [facility] [address] [place] [address] Dr. Sarah Church Urea nitrogen [Mass/Vol] 8.0 mg/dL Normal 7.0-18.0 [facility] Comment on above: Performed By: #### L IPID, CMP #### [facility] [address] [place] [address] Dr. Sarah Church Urea nitrogen/Creatinine [Mass ratio] 10.3 mg/mg Normal [facility] Comment on above: Performed By: #### L IPID, CMP #### [facility] [address] [place] [address] Dr. Sarah Church 37on 08-10-2022 37 -Start hydrochlorothiazide 12.5 mg in the morning -Check labs 1 week after starting new medication -Take blood pressure to appointment with Dr. Dela Cruz for correlation [facility] Office Visiton 08-10-2022 Follow-up visit [id number] Arlette Ramos 1970 F Date Provider Department Center 08/10/2022 [id number]-HIUAUAVKPCHRISTEN BENITES [facility] No family history on file Level of Service:16996 MD OFFICE/OUTPATIENT ESTABLISHED MOD MDM 30-39 MIN Reason for Visit and Comments: Coronary Artery Disease [187] Hypertension [288330] Normal [facility] MG MAMM SCREEN 3D ROB CADon 07-20-2022 MG MAMM SCREEN 3D ROB CAD Patient: ZOILA RAMOS Exam Date: 07/20/2022 : 1970 Gender:F Ordering : DR SHAYY DELA CRUZ M.D. Admission #: [id number] Family : Order #: [id number] CLICK HERE TO VIEW EXAM RADIOLOGY REPORT PROCEDURE: MAMMOGRAM SCREENING 3D BILATERAL CAD COMPARISON: MAMMO ROB SCREEN W CAD DIG, 05/16/2012. INDICATIONS: Screening mammography Calculator Name NCI Breast Cancer Risk Assessment Tool 5 Year Breast Cancer Risk 1.20% Lifetime Breast Cancer Risk 10.80% Personal Breast Cancer No Personal Ovarian Cancer No Treatments None Family Cancers None LOCATION: [facility] BREAST COMPOSITION: Almost entirely fatty. FINDINGS: [...] M.D. on 07/21/2022 at 08:24 Normal [facility] PROF CHEM 8 (BAS METB)on Anion gap [Moles/Vol] 14.5 mmol/L Normal [facility] Comment on above: Performed By: #### B MP #### [facility] [address] [address] [address] Sarah Church Calcium [Mass/Vol] 9.8 mg/dL Normal 8.5-10.1 [facility] Comment on above: Performed By: #### B MP #### [facility] [address] [address] [address] Sarah Church Chloride [Moles/Vol] 99 mmol/L Normal 98-107 [facility] Comment on above: Performed By: #### B MP #### [facility] [address] [address] [address] Sarah Church CO2 [Moles/Vol] 27.2 mmol/L Normal 21.0-32.0 [facility] Comment on above: Performed By: #### B MP #### [facility] [address] [place] [address] Dr. Sarah Church Creatinine [Mass/Vol] 0.80 mg/dL Normal 0.55-1.02 [facility] Comment on above: Performed By: #### B MP #### [facility] [address] [address] [address] Sarah Church EGFR-AF GREEK >60 Normal >=60 [facility] Comment on above: Performed By: #### B MP #### [facility] [address] [place] [address] Dr. Sarah Church EGFR-NON AF GREEK >60 Normal >=60 [facility] Comment on above: Performed By: #### B MP #### [facility] [address] [place] [address] Dr. Sarah Church Glucose [Mass/Vol] 458 mg/dL Critically high 74-[address] [facility] Comment on above: Performed By: #### B MP #### [facility] [address] [address] [address] Sarah Church Potassium [Moles/Vol] 4.7 mmol/L Normal 3.5-5.1 [facility] Comment on above: Performed By: #### B MP #### [facility] [address] [place] [address] Dr. Sarah Church Sodium [Moles/Vol] 136 mmol/L Normal 136-145 [facility] Comment on above: Performed By: #### B MP #### [facility] [address] [place] [address] Dr. Sarah Church Urea nitrogen [Mass/Vol] 15.0 mg/dL Normal 7.0-18.0 [facility] Comment on above: Performed By: #### B MP #### [facility] [address] [place] [address] Dr. Sarah Church Urea nitrogen/Creatinine [Mass ratio] 18.8 mg/mg Normal [facility] Comment on above: Performed By: #### B MP #### [facility] [address] [place] [address] Dr. Sarah Church Orders Onlyon 06-04-2022 Orders Only [id number] RichardArlette crook erasmo Sidhu 1970 Provider Department Center 06/04/2022 Shila-JESSICA STONE MADELYN [place] [facility] No family history on file Normal [facility] 36on 06-01-2022 36 Patient called [...] her high cholesterol . HELP!! lol Normal [facility] Orders Onlyon 06-01-2022 Orders Only [id number] RichardArlette crook erasmo Sidhu 1970 Provider Department Center 06/01/[address] No family history on file [facility] 36on 05-28-2022 36 Spoke with flaca she states to call in script of losartan 25 mg QD Normal [facility] GLYCOHEMOGLOBIN A1Con 2022 ADA RECOMMENDATION SEE BELOW Normal [facility] Comment on above: Result Comment: ADA RECOMMENDED LIMIT 4.0 - 6.0 ADA THERAPEUTIC TARGET < 7.0 ACTION SUGGESTED > 7.0 Performed By: #### A 1C ####[facility] [address] [id number]. Sarah Church Glucose [Mass/Vol] 266 mg/dL Normal [facility] Comment on above: Performed By: #### A 1C ####[facility] [address] [place], [place] [address]Sr. Sarah Church HbA1c (Bld) [Mass fraction] 10.9 % Critically high 4.5-6.2 [facility] Comment on above: Performed By: #### A 1C ####[facility] [address] [id number]. Sarah Church Office Visiton 05-19-2022 Follow-up visit [id number] RichardArlette Sidhu 1970 F Date Provider Department Center 05/19/2022 MALCOLM SCHAFER CARD [place] [facility] No family history on file Level of Service:78304 MD OFFICE/OUTPATIENT ESTABLISHED MOD MDM 30-39 MIN Reason for Visit and Comments: Coronary Artery Disease [187] Hyperlipidemia [182] Normal [facility] XR HIP RT 2 3V [...] JAVAD ROB Date: 2022-04-06 21:15 Normal [facility] CBC AUTO DIFFon 11-05-2021 BASO # 0.1 103/ul Normal 0.0-0.1 [facility] Comment on above: Performed By: #### C BC #### [facility] [address] [place] [address] Dr. Sarah Church Basophils/100 WBC (Bld) 0.4 % Normal 0.2-2.0 [facility] Comment on above: Performed By: #### C BC #### [facility] [address] [place] [address] Dr. Sarah Church EO # 0.2 103/ul Normal 0.0-0.7 [facility] Comment on above: Performed By: #### C BC #### [facility] [address] [place] [address] Dr. Sarah Church Eosinophils/100 WBC (Bld) 1.3 % Normal 0.9-7.0 [facility] Comment on above: Performed By: #### C BC #### [facility] [address] [place] [address] Dr. Sarah Church Erythrocyte distribution width (RBC) [Ratio] 12.3 % Normal 11.0-15.0 [facility] Comment on above: Performed By: #### C BC #### [facility] [address] [place] [address] Dr. Sarah Church Hematocrit (Bld) [Volume fraction] 43.1 % Normal 36.0-48.0 [facility] Comment on above: Performed By: #### C BC #### [facility] [address] [place] [address] Dr. Sarah Church Hemoglobin (Bld) [Mass/Vol] 14.6 g/dL Normal 12.0-16.0 [facility] Comment on above: Performed By: #### C BC #### [facility] [address] [place] [address] Dr. Sarah Church IG # 0.04 10e3/ul Critically high 0.00-0.03 [facility] Comment on above: Performed By: #### C BC #### [facility] [address] [place] [address] Dr. Sarah Church IG % 0.3 % Normal 0.0-0.5 [facility] Comment on above: Performed By: #### C BC #### [facility] [address] [place] [address] Dr. Sarah Church LYMPH # 1.6 103/ul Normal 1.2-3.8 [facility] Comment on above: Performed By: #### C BC #### [facility] [address] [place] [address] Dr. Sarah Church Lymphocytes/100 WBC (Bld) 12.5 % Critically low 20.5-60.0 [facility] Comment on above: Performed By: #### C BC #### [facility] [address] [place] [address] Dr. Sarah Church MANUAL DIFF REQ NO Normal [facility] Comment on above: Performed By: #### C BC #### [facility] [address] [place] [address] Dr. Sarah Church MCH (RBC) [Entitic mass] 29.4 pg Normal 26.7-34.0 [facility] Comment on above: Performed By: #### C BC #### [facility] [address] [place] [address] Dr. Sarah Church MCHC (RBC) [Mass/Vol] 33.9 g/dL Normal 29.9-35.2 [facility] Comment on above: Performed By: #### C BC #### [facility] [address] [place] [address] Dr. Sarah Church MCV (RBC) [Entitic vol] 86.7 fL Normal 81.0-99.0 [facility] Comment on above: Performed By: #### C BC #### [facility] [address] [place] [address] Dr. Sarah Church MONO # 1.0 103/ul Critically high 0.3-0.8 [facility] Comment on above: Performed By: #### C BC #### [facility] [address] [place] [address] Dr. Sarah Church Monocytes/100 WBC (Bld) 7.7 % Normal 1.7-12.0 [facility] Comment on above: Performed By: #### C BC #### [facility] [address] [place] [address] Dr. Sarah Church NEUT # 9.6 103/ul Critically high 1.4-6.5 [facility] Comment on above: Performed By: #### C BC #### [facility] [address] [place] [address] Dr. Sarah Church Neutrophils/100 WBC (Bld) 77.8 % Critically high 43.0-75.0 [facility] Comment on above: Performed By: #### C BC #### [facility] [address] [place] [address] Dr. Sarah Church Platelet mean volume (Bld) [Entitic vol] 11.0 fL Normal 9.5-13.5 [facility] Comment on above: Performed By: #### C BC #### [facility] [address] [place] [address] Dr. Sarah Church PLT 220 103/ul Normal 150-450 [facility] Comment on above: Performed By: #### C BC #### [facility] [address] [place] [address] Dr. Sarah Church RBC 4.97 106/ul Normal 4.20-5.40 [facility] Comment on above: Performed By: #### C BC #### [facility] [address] [address] [address] Sarah Church WBC 12.4 103/ul Critically high 4.0-11.0 [facility] Comment on above: Performed By: #### C BC #### [facility] [address] [place] [address] Dr. Sarah Church GROUP A STREP CULTUREon S. pyogenes Ag Ql (Unsp spec) Culture Observations: NEGATIVE FOR GROUP A STREPTOCOCCUS. Normal [facility] Comment on above: Performed By: #### G RASTCX, SSCRN ####[facility] [address] [address]Dr. Sarah Church POINT OF CARE GLUCOSEon Glucose [Mass/Vol] 214 mg/dL Critically high 74-106 [facility] Comment on above: Performed By: #### P OCGLUC #### [facility] [address] [place] [address] Dr. Sarah Church STREPT SCREENon 11-05-2021 STREP SCREEN A Negative Normal NEGATIVE [facility] Comment on above: Performed By: #### G RASTCX, SSCRN ####[facility] [address] [address]Dr. Sarah Church CBC AUTO DIFFon 10-16-2021 BASO # 0.1 103/ul Normal 0.0-0.1 [facility] Comment on above: Performed By: #### C BC #### [facility] [address] [place] [address] Dr. Sarah Church Basophils/100 WBC (Bld) 0.8 % Normal 0.2-2.0 [facility] Comment on above: Performed By: #### C BC #### [facility] [address] [place] [address] Dr. Sarah Church EO # 0.3 103/ul Normal 0.0-0.7 [facility] Comment on above: Performed By: #### C BC #### [facility] [address] [place] [address] Dr. Sarah Church Eosinophils/100 WBC (Bld) 3.4 % Normal 0.9-7.0 [facility] Comment on above: Performed By: #### C BC #### [facility] [address] [place] [address] Dr. Sarah Church Erythrocyte distribution width (RBC) [Ratio] 12.6 % Normal 11.0-15.0 [facility] Comment on above: Performed By: #### C BC #### [facility] [address] [place] [address] Dr. Sarah Church Hematocrit (Bld) [Volume fraction] 45.4 % Normal 36.0-48.0 [facility] Comment on above: Performed By: #### C BC #### [facility] [address] [place] [address] Dr. Sarah Church Hemoglobin (Bld) [Mass/Vol] 15.0 g/dL Normal 12.0-16.0 [facility] Comment on above: Performed By: #### C BC #### [facility] [address] [place] [address] Dr. Sarah Church IG # 0.02 10e3/ul Normal 0.00-0.03 [facility] Comment on above: Performed By: #### C BC #### [facility] [address] [place] [address] Dr. Sarah Church IG % 0.2 % Normal 0.0-0.5 [facility] Comment on above: Performed By: #### C BC #### [facility] [address] [place] [address] Dr. Sarah Church LYMPH # 2.7 103/ul Normal 1.2-3.8 [facility] Comment on above: Performed By: #### C BC #### [facility] [address] [place] [address] Dr. Sarah Church Lymphocytes/100 WBC (Bld) 31.0 % Normal 20.5-60.0 [facility] Comment on above: Performed By: #### C BC #### [facility] [address] [place] [address] Dr. Sarah Church MANUAL DIFF REQ NO Normal [facility] [place] Comment on above: Performed By: #### C BC #### [facility] [address] [place] [address] Dr. Sarah Church MCH (RBC) [Entitic mass] 29.3 pg Normal 26.7-34.0 [facility] Comment on above: Performed By: #### C BC #### [facility] [address] [place] [address] Dr. Sarah Church MCHC (RBC) [Mass/Vol] 33.0 g/dL Normal 29.9-35.2 [facility] Comment on above: Performed By: #### C BC #### [facility] [address] [place] [address] Dr. Sarah Church MCV (RBC) [Entitic vol] 88.7 fL Normal 81.0-99.0 [facility] Comment on above: Performed By: #### C BC #### [facility] [address] [place] [address] Dr. Sarah Church MONO # 0.6 103/ul Normal 0.3-0.8 [facility] Comment on above: Performed By: #### C BC #### [facility] [address] [place] [address] Dr. Sarah Church Monocytes/100 WBC (Bld) 6.5 % Normal 1.7-12.0 [facility] Comment on above: Performed By: #### C BC #### [facility] [address] [place] [address] Dr. Sarah Church NEUT # 5.0 103/ul Normal 1.4-6.5 [facility] Comment on above: Performed By: #### C BC #### [facility] [address] [place] [address] Dr. Sarah Church Neutrophils/100 WBC (Bld) 58.1 % Normal 43.0-75.0 [facility] Comment on above: Performed By: #### C BC #### [facility] [address] [place] [address] Dr. Sarah Church Platelet mean volume (Bld) [Entitic vol] 11.0 fL Normal 9.5-13.5 [facility] Comment on above: Performed By: #### C BC #### [facility] [address] [address] [address] Sarah Church PLT 226 103/ul Normal 150-450 [facility] Comment on above: Performed By: #### C BC #### [facility] [address] [address] [address] Sarah Church RBC 5.12 106/ul Normal 4.20-5.40 [facility] Comment on above: Performed By: #### C BC #### [facility] [address] [address] [address] Sarah Church WBC 8.6 103/ul Normal 4.0-11.0 [facility] Comment on above: Performed By: #### C BC #### [facility] [address] [address] [address] Sarah Church GLYCOHEMOGLOBIN A1Con 2021 ADA RECOMMENDATION SEE BELOW Normal [facility] Comment on above: Result Comment: ADA RECOMMENDED LIMIT 4.0 - 6.0 ADA THERAPEUTIC TARGET < 7.0 ACTION SUGGESTED > 7.0 Performed By: #### A 1C ####[facility] [address] [address]Dr. Sarah Church Glucose [Mass/Vol] 275 mg/dL Normal [facility] Comment on above: Performed By: #### A 1C ####[facility] [address] [address]Dr. Sarah Church HbA1c (Bld) [Mass fraction] 11.2 % Critically high 4.5-6.2 [facility] Comment on above: Performed By: #### A 1C ####[facility] [address] [address]Dr. Sarah Church LIPID PROFILEon 10-16-2021 CHOL-HDL RATIO NORM SEE BELOW Normal [facility] Comment on above: Result Comment: 3.3 - 4.4 LOW RISK 4.4 - 7.1 AVERAGE RISK 7.1 - 11.0 MODERATE RISK >11.0 HIGH RISK Performed By: #### L IPID, CMP ####[facility] [address] [id number]. Sarah Church Cholesterol [Mass/Vol] 159 mg/dL Normal <=200 [facility] Comment on above: Performed By: #### L IPID, CMP ####[facility] [address] [id number]. Sarah Church Cholesterol in HDL [Mass/Vol] 41 mg/dL Normal 40-60 [facility] Comment on above: Performed By: #### L IPID, CMP ####[facility] [address] [id number]. Sarah Church Cholesterol in LDL [Mass/Vol] 102.6 mg/dL Normal [facility] Comment on above: Performed By: #### L IPID, CMP ####[facility] [address] [id number]. Corriebrenden Ranjit Cholesterol.total/C holesterol in HDL [Mass ratio] 3.9 {ratio} Normal [facility] Comment on above: Performed By: #### L IPID, CMP ####[facility] [address] [id number]. Sarah Church HDL NORMAL > or = 60 mg/dl - LO W CARDIOVASCULAR RISK <40 mg/dl - HIGH CARDIOVASCULAR RISK Normal [facility] Comment on above: Performed By: #### L IPID, CMP ####[facility] [address] [id number]. Sarah Church LDL CALC NORMAL SEE BELOW Normal [facility] [place] Comment on above: Result Comment: <100 mg/dl OPTIMAL 100 - 129 mg/dl NEAR OR ABOVE OPTIMAL 130 - 159 mg/dl BORDERLINE HIGH 160 - 189 mg/dl HIGH >190 mg/dl VERY HIGH Performed By: #### L IPID, CMP ####[facility] [address] [id number]. Sarah Church Triglyceride [Mass/Vol] 77 mg/dL Normal <=150 [facility] Comment on above: Performed By: #### L IPID, CMP ####[facility] [address] [phone]. Sarah Church VLDL CALC 15.4 mg/dL Normal [facility] Comment on above: Performed By: #### L IPID, CMP ####[facility] [address] [id number]. Sarah Church MICROALBUMIN, RAND URon - mALB 2.0 mg/L Normal <=30.0 [facility] Comment on above: Performed By: #### M ALBR #### [facility] [address] [place], [place] [address] Dr. Sarah Church PROF 14(COMP METB)on 022 Albumin [Mass/Vol] 3.5 g/dL Normal 3.4-5.0 [facility] Comment on above: Performed By: #### L IPID, CMP ####[facility] [address] [address]Dr. Sarah Church Albumin/Globulin [Mass ratio] 0.8 {ratio} Normal [facility] Comment on above: Performed By: #### L IPID, CMP ####[facility] [address] [address]Dr. Sarah Church ALP [Catalytic activity/Vol] 85 U/L Normal 46-116 [facility] Comment on above: Performed By: #### L IPID, CMP ####[facility] [address] [address]Dr. Sarah Church ALT [Catalytic activity/Vol] 59 U/L Normal 14-59 [facility] Comment on above: Performed By: #### L IPID, CMP ####[facility] [address] [id number]. Sarah Church Anion gap [Moles/Vol] 15.1 mmol/L Normal [facility] Comment on above: Performed By: #### L IPID, CMP ####[facility] [address] [address]Dr. Sarah Church AST [Catalytic activity/Vol] 32 U/L Normal 15-37 [facility] Comment on above: Performed By: #### L IPID, CMP ####[facility] [address] [place], [place] [address]Dr. Sarah Church Bilirubin [Mass/Vol] 0.4 mg/dL Normal 0.2-1.0 [facility] Comment on above: Performed By: #### L IPID, CMP ####[facility] [address] [place], [place] [address]Dr. Sarah Church Calcium [Mass/Vol] 9.0 mg/dL Normal 8.5-10.1 [facility] Comment on above: Performed By: #### L IPID, CMP ####[facility] [address] [place], [place] [address]Dr. Sarah Church Chloride [Moles/Vol] 102 mmol/L Normal 98-107 [facility] Comment on above: Performed By: #### L IPID, CMP ####[facility] [address] [place], [place] [address]Dr. Sarah Church CO2 [Moles/Vol] 30.2 mmol/L Normal 21.0-32.0 [facility] Comment on above: Performed By: #### L IPID, CMP ####[facility] [address] [place], [place] [address]Dr. Sarah Church Creatinine [Mass/Vol] 0.81 mg/dL Normal 0.55-1.02 [facility] Comment on above: Performed By: #### L IPID, CMP ####[facility] [address] [place], [place] [address]Dr. Sarah Church EGFR-AF GREEK >60 Normal >=60 [facility] Comment on above: Performed By: #### L IPID, CMP ####[facility] [address] [place], [place] [address]Dr. Corriebrenden Church EGFR-NON AF GREEK >60 Normal >=60 [facility] Comment on above: Performed By: #### L IPID, CMP ####[facility] [address] [place], [place] [address]Dr. Sarah Church Globulin (S) [Mass/Vol] 3.9 g/dL Normal [facility] Comment on above: Performed By: #### L IPID, CMP ####[facility] [address] [place], [place] [address]Dr. Corriebrenden Church Glucose [Mass/Vol] 218 mg/dL Critically high 74-106 T [facility] Comment on above: Performed By: #### L IPID, CMP ####[facility] [address] [place], [place] [address]Dr. Sarah Church Potassium [Moles/Vol] 4.3 mmol/L Normal 3.5-5.1 [facility] Comment on above: Performed By: #### L IPID, CMP ####[facility] [address] [place], [place] [address]Dr. Sarah Church Protein [Mass/Vol] 7.4 g/dL Normal 6.4-8.2 [facility] Comment on above: Performed By: #### L IPID, CMP ####[facility] [address] [place], [place] [address]Dr. Sarah Church Sodium [Moles/Vol] 143 mmol/L Normal 136-145 [facility] Comment on above: Performed By: #### L IPID, CMP ####[facility] [address] [place], [place] [address]Dr. Sarah Church Urea nitrogen [Mass/Vol] 14.0 mg/dL Normal 7.0-18.0 [facility] Comment on above: Performed By: #### L IPID, CMP ####[facility] [address] [place], [place] [address]Dr. Sarah Church Urea nitrogen/Creatinine [Mass ratio] 17.2 mg/mg Normal [facility] Comment on above: Performed By: #### L IPID, CMP ####[facility] [address] [place], [place] [address]Dr. Sarah Church Vital Signs Date Time Vital Sign Value Performing Clinician Facility 02-23-2024 13:23-0400 Body height 157.48 cm [facility] 02-23-2024 13:23-0400 Body mass index (BMI) [Ratio] 38 kg/m2 [facility] 02-23-2024 13:23-0400 Body weight 94.37 kg [facility] 02-23-2024 13:23-0400 Diastolic blood pressure 78 mm[Hg] [facility] 02-23-2024 13:23-0400 Heart rate 75 /min [facility] 02-23-2024 13:23-0400 Respiratory rate 18 /min [facility] 02-23-2024 13:23-0400 SaO2% (BldA) [Mass fraction] 97 % [facility] 02-23-2024 13:23-0400 Systolic blood pressure 170 mm[Hg] [facility] 12-13-2023 13:03-0400 Body height 157.48 cm [facility] 12-13-2023 13:03-0400 Body mass index (BMI) [Ratio] 37.1 kg/m2 [facility] 12-13-2023 13:03-0400 Body weight 92.07 kg [facility] 12-13-2023 13:03-0400 Diastolic blood pressure 86 mm[Hg] [facility] 12-13-2023 13:03-0400 Heart rate 78 /min [facility] 12-13-2023 13:03-0400 Respiratory rate 18 /min [facility] 12-13-2023 13:03-0400 SaO2% (BldA) [Mass fraction] 96 % [facility] 12-13-2023 13:03-0400 Systolic blood pressure 153 mm[Hg] [facility] 12-05-2023 11:24-0400 Body height 157.48 cm [facility] 12-05-2023 11:24-0400 Body mass index (BMI) [Ratio] 36.9 kg/m2 [facility] 12-05-2023 11:24-0400 Body weight 91.62 kg [facility] 12-05-2023 11:24-0400 Diastolic blood pressure 75 mm[Hg] [facility] 12-05-2023 11:24-0400 Heart rate 80 /min [facility] 12-05-2023 11:24-0400 Systolic blood pressure 133 mm[Hg] [facility] 09-29-2023 13:44-0400 Diastolic blood pressure 76 mm[Hg] [facility] 09-29-2023 13:44-0400 Systolic blood pressure 130 mm[Hg] [facility] 09-29-2023 13:19-0400 Body height 157.48 cm [facility] 09-29-2023 13:19-0400 Body mass index (BMI) [Ratio] 38.7 kg/m2 [facility] 09-29-2023 13:19-0400 Body weight 95.9 kg [facility] 09-29-2023 13:19-0400 Heart rate 89 /min [facility] 09-29-2023 13:19-0400 Respiratory rate 18 /min [facility] 09-29-2023 13:19-0400 SaO2% (BldA) [Mass fraction] 98 % [facility] 09-06-2023 11:08-0400 Body height 157.48 cm [facility] 09-06-2023 11:08-0400 Body mass index (BMI) [Ratio] 37.6 kg/m2 [facility] 09-06-2023 11:08-0400 Body weight 93.44 kg [facility] 09-06-2023 11:08-0400 Diastolic blood pressure 72 mm[Hg] [facility] 09-06-2023 11:08-0400 Heart rate 89 /min [facility] 09-06-2023 11:08-0400 Systolic blood pressure 127 mm[Hg] [facility] 08-24-2023 15:08-0400 Body height 157.48 cm [facility] 08-24-2023 15:08-0400 Body mass index (BMI) [Ratio] 37.5 kg/m2 [facility] 08-24-2023 15:08-0400 Body weight 93.21 kg [facility] 08-19-2023 10:43-0400 Body height 157.48 cm MD Shayy Dela Cruz Work Phone: [facility] 08-19-2023 10:43-0400 Body mass index (BMI) [Ratio] 37.5 kg/m2 MD Shayy Dela Cruz Work Phone: [facility] 08-19-2023 10:43-0400 Body weight 93.09 kg MD Shayy Dela Cruz Work Phone: [facility] 08-19-2023 10:43-0400 Diastolic blood pressure 79 mm[Hg] MD Shayy Dela Cruz Work Phone: [facility] 08-19-2023 10:43-0400 Heart rate 83 /min MD Shayy Dela Cruz Work Phone: [facility] 08-19-2023 10:43-0400 Systolic blood pressure 135 mm[Hg] MD Shayy Dela Cruz Work Phone: [facility] 07-28-2023 14:22-0400 Body height 157.48 cm MD Shayy Dela Cruz Work Phone: [facility] 07-28-2023 14:22-0400 Body mass index (BMI) [Ratio] 37.6 kg/m2 MD Shayy Dela Cruz Work Phone: [facility] 07-28-2023 14:22-0400 Body weight 93.44 kg MD Shayy Dela Cruz Work Phone: [facility] 07-28-2023 14:22-0400 Diastolic blood pressure 84 mm[Hg] MD Shayy Dela Cruz Work Phone: [facility] 07-28-2023 14:22-0400 Heart rate 83 /min MD Shayy Dela Cruz Work Phone: [facility] 07-28-2023 14:22-0400 Respiratory rate 18 /min MD Shayy Dela Cruz Work Phone: [facility] 07-28-2023 14:22-0400 SaO2% (BldA) [Mass fraction] 97 % MD Shayy Dela Cruz Work Phone: [facility] 07-28-2023 14:22-0400 Systolic blood pressure 140 mm[Hg] MD Shayy Dela Cruz Work Phone: [facility] 07-19-2023 10:57-0400 Body height 157.48 cm MD Shayy Dela Cruz Work Phone: [facility] 07-19-2023 10:57-0400 Body mass index (BMI) [Ratio] 37.1 kg/m2 MD Shayy Dela Cruz Work Phone: [facility] 07-19-2023 10:57-0400 Body weight 92.07 kg MD Shayy Dela Cruz Work Phone: [facility] 07-19-2023 10:57-0400 Diastolic blood pressure 68 mm[Hg] MD Shayy Dela Cruz Work Phone: [facility] 07-19-2023 10:57-0400 Heart rate 89 /min MD Shayy Dela Cruz Work Phone: [facility] 07-19-2023 10:57-0400 Systolic blood pressure 132 mm[Hg] MD Shayy Dela Cruz Work Phone: [facility] 05-25-2023 11:00-0500 Body height 157.48 cm Cathie Scally Other [facility] 05-25-2023 11:00-0500 Body mass index (BMI) [Ratio] 37.23 kg/m2 Cathie Scally Other [facility] Other 05-25-2023 11:00-0500 Body weight 92.35 kg Cathie Scally Other [facility] 05-25-2023 11:00-0500 Diastolic blood pressure 71 mm[Hg] Cathie Scally Other [facility] 05-25-2023 11:00-0500 Respiratory rate 18 /min Cathie Scally Other [facility] Other 05-25-2023 11:00-0500 SaO2% (BldA) [Mass fraction] 95 % Cathie Vargas Other [facility] Other 05-25-2023 11:00-0500 Systolic blood pressure 139 mm[Hg] Cathie Vargas Other [facility] 04-15-2023 11:00-0500 Body height 157.48 cm Shayy Dela Cruz Other [facility] 04-15-2023 11:00-0500 Body mass index (BMI) [Ratio] 37.49 kg/m2 Shayy Dela Cruz Other [place] [facility] Other 04-15-2023 11:00-0500 Body weight 92.99 kg Shayy Dela Cruz Other [facility] Other 04-15-2023 11:00-0500 Body weight 92.98 kg MD Shayy Dela Cruz Work Phone: [facility] 04-15-2023 11:00-0500 Diastolic blood pressure 84 mm[Hg] Shayy Dela Cruz Other [facility] 04-15-2023 11:00-0500 Systolic blood pressure 142 mm[Hg] Shayy Dela Cruz Other [facility] 06-22-2022 13:30-0500 Body height 157.48 cm Shayy Dela Cruz Other [facility] Other 06-22-2022 13:30-0500 Body mass index (BMI) [Ratio] 36.94 kg/m2 Shayy Dela Cruz Other [facility] Other 06-22-2022 13:30-0500 Body weight 91.63 kg Shayy Dela Cruz Other [facility] Other 06-22-2022 13:30-0500 Diastolic blood pressure 74 mm[Hg] Shayy Dela Cruz Other [facility] Other 06-22-2022 13:30-0500 SaO2% (BldA) [Mass fraction] 97 % Shayy Dela Cruz Other [facility] Other 06-22-2022 13:30-0500 Systolic blood pressure 112 mm[Hg] Shayy Dela Cruz Other [facility] Other Encounters Encounter Date Encounter Type Care Provider Facility Start: 02-23-2024 End: 02-23-2024 ambulatory Cathie Vargas [facility] Work Phone: Start: 02-23-2024 End: 02-23-2024 Patient encounter procedure [employer] DIRECTOR Cathie Vargas Work Phone: [facility] Work Phone: Start: 02-23-2024 End: 02-23-2024 ambulatory [facility] Work Phone: Start: 02-23-2024 End: 02-23-2024 Patient encounter procedure [facility] Work Phone: Start: 01-17-2024 End: 01-17-2024 ambulatory [facility] Work Phone: Start: 01-17-2024 End: 01-17-2024 Patient encounter procedure [facility] Work Phone: Start: 12-13-2023 End: 12-13-2023 ambulatory [facility] Work Phone: Start: 12-13-2023 End: 12-13-2023 Patient encounter procedure [facility] Work Phone: Start: 12-05-2023 End: 12-05-2023 ambulatory [facility] Work Phone: Start: 12-05-2023 End: 12-05-2023 Patient encounter procedure [facility] Work Phone: Start: 11-07-2023 End: 11-07-2023 ambulatory [facility] Work Phone: Start: 11-07-2023 End: 11-07-2023 Patient encounter procedure [facility] Work Phone: Start: 09-29-2023 End: 09-29-2023 ambulatory [facility] Work Phone: Start: 09-29-2023 End: 09-29-2023 Patient encounter procedure [facility] Work Phone: Start: 09-06-2023 End: 09-06-2023 ambulatory [facility] Work Phone: Start: 09-06-2023 End: 09-06-2023 Patient encounter procedure [facility] Work Phone: Start: 08-24-2023 End: 08-24-2023 ambulatory [facility] Work Phone: Start: 08-24-2023 End: 08-24-2023 Patient encounter procedure [facility] Work Phone: Start: 08-19-2023 End: 08-19-2023 ambulatory MD Shayy Dela Cruz Work Phone: [facility] Work Phone: Start: 08-19-2023 End: 08-19-2023 Patient encounter procedure MD Shayy Dela Cruz Work Phone: [facility] Work Phone: Start: 07-28-2023 End: 07-28-2023 ambulatory MD Shayy Dela Cruz Work Phone: [facility] Work Phone: Start: 07-28-2023 End: 07-28-2023 Patient encounter procedure MD Shayy Dela Cruz Work Phone: [facility] Work Phone: Start: 07-19-2023 End: 07-19-2023 ambulatory MD Shayy Dela Cruz Work Phone: [facility] Work Phone: Start: 07-19-2023 End: 07-19-2023 Patient encounter procedure MD Shayy Dela Cruz Work Phone: [facility] Work Phone: Start: 07-12-2023 Non-patient / Non-visit MD Shayy Dela Cruz Work Phone: [facility] Work Phone: Start: 06-14-2023 End: 06-14-2023 Patient encounter procedure MD Shayy Dela Cruz Work Phone: [facility] Work Phone: Start: 06-14-2023 End: 06-14-2023 ambulatory MD Shayy Dela Cruz Work Phone: [facility] Work Phone: Start: 06-06-2023 End: 06-06-2023 ambulatory Shayy Dela Cruz Other [facility] Other Start: 06-06-2023 Telephone encounter Shayy Dela Cruz [facility] Start: 05-25-2023 [facility] visit new patient Cathie Sheikh y [facility] Start: 05-25-2023 End: 05-25-2023 ambulatory MD Shayy Dela Cruz Work Phone: [facility] Other Start: 05-25-2023 End: 05-25-2023 Discharged Recurring MD Shayy Dela Cruz Work Phone: [facility] Work Phone: Start: 05-25-2023 Registered Recurring MD Shayy Dela Cruz [facility] Work [facility]: Start: 05-25-2023 End: 05-25-2023 Patient encounter procedure MD Shayy Dela Cruz Work Phone: [facility]- Start: 05-12-2023 End: 05-12-2023 ambulatory Shayy Dela Cruz Other [facility] Other Start: 05-12-2023 Telephone encounter Shayy Dela Cruz [facility] Start: 05-10-2023 End: 05-10-2023 ambulatory Shayy Dela Cruz Other [facility] Other Start: 05-10-2023 Telephone encounter Shayy Dela Cruz [facility] Start: 04-22-2023 End: 04-22-2023 ambulatory Shayy Dela Cruz Other [facility] Other Start: 04-22-2023 Telephone encounter Shayy Dela Cruz [facility] Start: 04-20-2023 End: 04-20-2023 ambulatory Lynne Hernandez Other [facility] Other Start: 04-20-2023 Telephone encounter Lynne Avilat [facility] Start: 04-18-2023 End: 04-18-2023 ambulatory Lynne Avilat Other [facility] Other Start: 04-18-2023 Telephone encounter Lynne Avilat [facility] Start: 04-15-2023 End: 04-15-2023 ambulatory Shayy Dela Cruz Other [facility] Other Start: 04-15-2023 Office outpatient visit 15 minutes Shayy Dela Cruz [facility] Start: 04-15-2023 End: 04-15-2023 Patient encounter procedure MD Shayy Dela Cruz Work Phone: [facility] Work Phone: Start: 04-06-2023 End: 04-06-2023 ambulatory Shayy Dela Cruz Other [facility] Other Start: 04-06-2023 Telephone encounter Shayy Dela Cruz [facility] Start: 02-25-2023 End: 02-25-2023 ambulatory Shayy Dela Cruz Other [facility] Other Start: 02-25-2023 Telephone encounter Shayy Dela Cruz [facility] Start: 12-13-2022 End: 12-13-2022 ambulatory [facility] Start: 10-29-2022 End: 10-29-2022 ambulatory Shayy Dela Cruz Other [facility] Other Start: 10-29-2022 Telephone encounter Shayy Dela Cruz [facility] Start: 08-27-2022 End: 08-28-[address] SHAYY DELA CRUZ Facility:[facility] Start: 08-10-2022 End: 08-10-2022 ambulatory [facility] Start: 07-20-2022 End: 07-21-[address] SHAYY DELA CRUZ Facility:[facility] Start: 07-19-2022 End: 07-19-2022 ambulatory Shayy Dela Cruz Other [facility] Other Start: 07-19-2022 Telephone encounter Shayy Dela Cruz [facility] Start: 07-12-2022 End: 07-13-[address] SHAYY DELA CRUZ Facility:[facility] Start: 07-05-2022 End: 07-05-2022 ambulatory Shayy Dela Cruz Other [facility] Other Start: 07-05-2022 Telephone encounter Shayy Dela Cruz [facility] Start: 06-28-2022 End: 06-28-2022 ambulatory Shayy Dela Cruz Other [facility] Other Start: 06-28-2022 Telephone encounter Shayy Dela Cruz [facility] Start: 06-22-2022 End: 06-22-2022 ambulatory Shayy Dela Cruz Other [facility] Other Start: 06-22-2022 Office outpatient visit 15 minutes Shayy Dela Cruz [facility] Start: 05-27-2022 End: 05-27-2022 ambulatory Shayy Dela Cruz Other [facility] Other Start: 05-27-2022 Telephone encounter Shayy Dela Cruz [facility] Start: 05-19-2022 End: 05-20-[address] SHAYY [...] Start: 05-10-2017 End: 05-11-2017 Ambulatory DEFAULT PHYSICIAN Facility:[facility] Start: 05-05-2017 End: 05-06-2017 Ambulatory DEFAULT PHYSICIAN Facility:[facility] Procedures Date Procedure Procedure Detail Performing Clinician Start: 12-13-2022 Follow-up visit Follow-up MARQUES MOROCHO Plan of Treatment Date Care Activity Detail Author Comprehensive metabo lic 2000 panel - Serum or Plasma [facility] enter MG Breast - bilateral Screening [facility] Immunizations Immunization Date Immunization Notes Care Provider Fa cility 02-01-2022 influenza virus vaccine, split virus (incl. purified surface antigen) Shayy Dela Cruz Other [facility] Other 02-01-2022 influenza virus vaccine, unspecified formulation MD Shayy Dela Cruz Work Phone: [facility] Payers Date Payer Category Payer Medicare [id number] 2023 Self-pay 2021 Medicaid [id number] 2017 Unknown [id number] 1972 Unknown [id number] 2.16.84 [id number] 1972 Unknown [id number] 2.16.84 [id number] 1972 Unknown [id number] 2.16.84 [id number] 1972 Unknown [id number] 2.16.84 [id number] 1972 Unknown [id number] 2.16.84 [id number] 1972 Unknown [id number] 2.16.84 [id number] 1972 Unknown [id number] 2.16.84 [id number] 1972 Unknown [id number] 2.16.84 [id number] 1972 Unknown [id number] 2.16.84 [id number] 1957 Medicaid [id number] 2. [id number] 1957 Medicare [id number] . [id number] Unknown Unknown [id number] 2.16.8 [id number] Unknown [id number] 2.16.8 [id number] Social History Date Type Detail Facility Unknown if ever smoked [facility] Other Sex Assigned At Sex Assigned At Bir th [facility] Other Start: 1970 Sex Assigned At Female F [facility] Start: 07-19-2023 Tobacco smoking status NHIS Never smoked tobacco (finding) [facility] Medical Equipment Procedure Code Equipment Code [...] care administrator insulin use (ICD-10 - E11.65) [place] Other 01-24-2024 Evaluation note* Encounter Date Diagnosis [...] Instructions material was published to portal May, retirement current use of insulin (ICD-10 - Z79.4) May, BMI 37.0-37.9, adult (ICD-10 - Z68.37) May, Other 05/25/2023 The patient was given a Dexcom G7 sensor sample and an [employer] [place]. She was taught how to use the [...] educating the patient by Nguyễn Norwood RN, [facility]. [facility] Other 12-15-2023 Evaluation note* Encounter Date Diagnosis Assessment Notes Treatment Notes Treatment Clinical Notes Apr, Type 2 diabetes mellitus with hyperglycemia (ICD-10 - E11.65) Rx handwritten for diabetic shoes. Pt agrees to referral to specialty clinic. Continue present meds and discussed healthy diet in meantime. Apr, retirement (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 of insulin (ICD-10 - Z79.4) [facility] Other 08-14-2023 NoteCardiology Clinic Note Subjective Zoila [...] Active Problem List Diagnosis Coronary arteriosclerosis in [place] artery Old myocardial infarction Sinusitis Type 1 [...] the IVC. Mitral V (more content not included)...[facility] 08-10-2022 NoteCardiology Clinic Note Subjective [...] Active Problem List Diagnosis Coronary arteriosclerosis in [place] artery Old myocardial infarction Sinusitis Type 1 [...] in size. The (more content not included)... [facility]02-21-2023 Evaluation note* Encounter Date Diagnosis [...] - Z12.31) Zoila will call for an [employer] [facility] Other 01-31-2023 NoteIn light of elevated LDL will change simvastatin to lipitor 40 mg daily. Will repeat liver function and lipid level in 2 months. Staff to notify pt. Malcolm Evans DIRECT CARE PROVIDER Division of Cardiology, [facility]- [phone] Pager- [phone] Email- [email or web address] NotePatient here for 1 year follow [...] light-headedness. All other systems reviewed and are negative.[facility] 05-19-2022 NoteUTP CARDIOLOGY PROGRESS NOTE [...] past 12 months Assessment/Plan: Coronary arteriosclerosis in [place] artery Coronary artery disease is stable, no [...] RTC 1 month to review B/P [facility]01-18-2023 Note Hypertension is uncontrolled, Will add lisinopril 5 mg po daily, and continue metoprolol Goal b/p 130/80 or less, monitor for dry persistent cough- call office for any concerns, repeat BMP in 1 week RTC 1 month to review B/P [facility]01-18-2023 Note Coronary artery disease is stable, no concerning symptoms continue risk factor modifications- heart healthy diet, regular exercise as tolerated and continue all medications.[facility] 04-15-2022 NotePROCEDURE: XR FOOT LT [...] Electronically authenticated by: NARINDER LAN Date: 2022-04-15 06:08[facility]09-12-2022 NotePROCEDURE: XR TOES RT MIN 2 V HISTORY: Pain of toe of right foot ; first toe pain following injury COMPARISON: None. FINDINGS: BONES:No fracture, acute abnormality, or significant arthropathy. SOFT TISSUES:No visible soft tissue swelling. EFFUSION:None visible. OTHER: Negative. IMPRESSION: 1. No acute bone abnormality. 2. Mild degenerative joint disease. Electronically authenticated by: NARINDER LAN Date: 2022-01-11 18:48[facility] for [facility] N[facility]ative* Chief Complaint 3 Month Follow Up Referral Dr. Negro Dela Cruz DM download [facility] Work Phone: chief complaint+Reason for visit Narrative* Chief Complaint 3 Month Follow Up Referral Dr. Negro Dela Cruz DM download Reason for Visit Type 2 diabetes [facility] Work Phone: chief complaint+Reason for visit Narrative* Chief Complaint Referral Dr. Negro LAGUERRE download 3 Month Check up Reason for Visit Type 2 diabetes [facility] Work Phone: chief complaint+Reason for visit Narrative* Chief Complaint Referral Dr. Negro LAGUERRE download 3 Month Check up amrik reader Reason for Visit Type 2 diabetes holli [facility]us Right wrist fracture Type 2 diabetes mellitus [facility] Work Phone: chief complaint+Reason for [...] mellitus Vitamin D deficiency Gastroesophageal reflux disease [facility] Work Phone: Evaluation noteNo InformationN[place] Other Evaluation noteNo assessment information available [facility] Work Phone: Evaluation note* Diagnosis Onset Date Resolution Status Type 2 diabetes mellitus acu te [facility] Work Phone: Evaluation note* Diagnosis Onset Date Resolution Status Type 2 diabetes mellitus acu te Right wrist fracture acute Type 2 diabetes mellitus acu te [facility] Work Phone: Evaluation note* Diagnosis [...] D deficiency acute Gastroesophageal reflux disease acute [facility] Work Phone: evaluation note* Diagnosis [...] acute Type 2 diabetes mellitus acu te [facility] Work Phone: evaluation note* Diagnosis [...] acute Type 2 diabetes mellitus acu te [facility] Work Phone: evaluation note* Diagnosis [...] acute Type 2 diabetes mellitus acu te [facility] Work Phone: evaluation note* Diagnosis [...] te Screening mammogram for breast cancer acute [facility] Work Phone: evaluation note* Diagnosis [...] mellitus acu te Vitamin D deficiency acute [facility] Work Phone: Evaluation note* Diagnosis [...] acute Type 2 diabetes mellitus acu te [facility] Work Phone: Evaluation note* Diagnosis [...] mellitus acu te Vitamin D deficiency acute [facility] Work Phone: Hisqpxo general Narrative - Reported* Type Description Date Medical History Herpes labialis Medical History Candidiasis of mouth Medical History Type 2 diabetes holli itus with diabetic polyneuropathy, unspecified whether mcfp insulin use Medical History Controlled type 2 di abetes mellitus with hyperglycemia, unspecified whether mcfp insulin use Medical History Obesity Medical History Dyslipidemia Medical History CAD in [place] artery Medical History Asthma, intermittent Medical History [...] History appendectomy Surgical History 7 stents 1999 [facility] Other [place] general Narrative - Reported* Type Description Date Medical History Herpes labialis Medical History Candidiasis of mouth Medical History Type 2 diabetes holli itus with diabetic polyneuropathy, unspecified whether long term care administrator insulin use Medical History Controlled type 2 di abetes mellitus with hyperglycemia, unspecified whether long term care administrator insulin use Medical History Obesity Medical History Dyslipidemia Medical History CAD in [place] artery Medical History Asthma, intermittent Medical History [...] stents 1999 Hospitalization History see surgical history [facility] Other History general Narrative - Reported* Type Description Date Medical History Herpes labialis Medical History Candidiasis of mouth Medical History Type 2 diabetes holli itus with diabetic polyneuropathy, unspecified whether long term care administrator insulin use Medical History Controlled type 2 di abetes mellitus with hyperglycemia, unspecified whether mcfp insulin use Medical History Obesity Medical History Dyslipidemia Medical History CAD in [place] artery Medical History Asthma, intermittent Medical History [...] coronary 1999 Hospitalization History see surgical history [facility] Other Summary Purpose Family History No Family [...] itus with hyperglycemia (E11.65) Referral Organization [facility] Karli fuchs Referring Provider First Name Shayy Referring Provider Last Name Jose De Jesus Referring Provider Specialty [facility] Referred Organization [facility] Referred Provider Marcia Mendes Referred Address [address],[place], [place],[address] Referred Provider Specialty Nurse Huey saldaña Referral [...] and content) DATE CREATED AUTHOR 10/25/2017 [facility] DATE CREATED AUTHOR AUTHOR'S ORGANIZ ATION 09/03/2022 [facility] DATE CREATED AUTHOR AUTHOR'S ORGANIZ ATION 12/13/2022 [facility] DATE CREATED AUTHOR AUTHOR'S ORGANIZ ATION 02/25/2024 [facility] REASON FOR VISIT (unrecogniz ed section and content) labsmessage3 MONTH FOLLOW UP ACrefillmessagemessageRefill3 month Follow upDM [id number] ReferralrefillsNo InformationRefillReferral Dr. Negro Gallegos sensor running [...] BE BASED ON THE PRIMARY CLINICAL RECORDS. [facility] [employer] [facility] provides no warranty or guarantee of the accuracy or completeness of information in this document.
--- NOTE | 2024-05-15 13:43 | MR_ITS ---
[facility] [place] [id number] Patient Name: COLETTE DINH MRN: [id number] date: 1970 Sex: F Assigned Patient Location: MRI Current Patient Location: MRI Accession/Order Number: [id number] Exam Date: 05/15/2024 14:45 Report Date: 05/15/2024 16:47 At the request of: JORDYN SANCHEZ Procedure: MR foot LT wo con EXAM: MR foot LT wo con HISTORY: Osteomyelitis Second Toe COMPARISON: 05/06/2024 TECHNIQUE: MRI images obtained with multiple sequences. MRI of the left foot without contrast. Sequences obtained by standard department protocol. FINDINGS: Achilles tendon is intact. Plantar fascia is intact. Decreased T1 signal at the second distal phalangeal tuft, consistent with osteomyelitis. There are associated erosions seen on the radiograph from 05/06/2024. No other areas suspicious for osteomyelitis by this modality and technique. Extensor and flexor tendons are intact. No acute fractures. No ankle joint effusion. No abnormal signal of the plantar musculature. MR/MR foot LT wo con IMPRESSION: 1. Decreased T1 signal at the second distal phalangeal tuft, consistent with osteomyelitis. There are associated erosions seen on the radiograph from 05/06/2024. 2. No other areas suspicious for osteomyelitis by this modality and technique. Electronically authenticated by: THOMAS PIERSON Date: 05/15/2024 16:47
== END 2024-05-15 13:26 | disposition home or self-care (01) ==
LOC: MRI 13:26
PROVIDERS: PCP Family Medicine; Visit Provider Podiatrist Foot & Ankle Surgery
DX: M86.8X8 Other osteomyelitis, other site (principal)
CPT/HCPCS: 73718

== ENCOUNTER 2024-05-16 12:32 | Outpatient (OUT) | payer MEDICARE, MEDICAID, SELFPAY ==
[2024-05-16 12:50] LABS: Basophils Percent Auto 0.6 % (0.2-2.0); Eosinophils Absolute Auto 0.3 10^3/uL (0.0-0.7); Eosinophils Percent Auto 3.5 % (0.9-7.0); Hematocrit 39.4 % (36.0-48.0); Immature Granulocytes Abs Auto 0.02 10^3/uL (0.00-0.03); Immature Granulocytes Pct Auto 0.3 % (0.0-0.5); Lymphocytes Absolute Auto 2.2 10^3/uL (1.2-3.8); Lymphocytes Percent Auto 30.4 % (20.5-60.0); Mean Corpuscular Hemoglobin 29.3 pg (26.7-34.0); Mean Corpuscular Volume 88.7 fL (81.0-99.0); Mean Platelet Volume 9.9 fL (9.5-13.5); Monocytes Absolute Auto 0.5 10^3/uL (0.3-0.8); Monocytes Percent Auto 7.1 % (1.7-12.0); Neutrophils Absolute Auto 4.2 10^3/uL (1.4-6.5); Neutrophils Percent Auto 58.1 % (43.0-75.0); Platelet Count 243 10^3/uL (150-450); Red Blood Count 4.44 10^6/uL (4.20-5.40); Red Cell Distribution Width 12.9 % (11.0-15.0); White Blood Count 7.2 10^3/uL (4.0-11.0)
[2024-05-16 12:52] LABS: Erythrocyte Sedimentation Rate 28 mm/hr (<=30)
[2024-05-16 13:13] LABS: Anion Gap 11.5; BUN Creatinine Ratio 11.9; C Reactive Protein 1.26 mg/dL (<=0.50); Calcium 9.1 mg/dL (8.5-10.1); Carbon Dioxide 30.6 mmol/L (21.0-32.0); Chloride 104 mmol/L (98-107); Estimated GFR (African America >60 (>=60 mL/min/1.73m^2); Estimated GFR (Non-African Ame 58 (>=60 mL/min/1.73m^2); Glucose 206 mg/dL (74-106); Potassium 5.1 mmol/L (3.5-5.1); Sodium 141 mmol/L (136-145)
== END 2024-05-16 12:33 | disposition home or self-care (01) ==
LOC: LAB 12:34
PROVIDERS: PCP Family Medicine; Visit Provider Podiatrist Foot & Ankle Surgery
DX: M86.8X8 Other osteomyelitis, other site (principal)
CPT/HCPCS: 36415; 80048; 85025; 85652; 86140

== ENCOUNTER 2024-05-30 15:51 | Outpatient (OUT) | payer MEDICARE, MEDICAID, SELFPAY | END 2024-05-30 15:52 | disposition home or self-care (01) | LOC: WC 15:52 | PROVIDERS: PCP Family Medicine; Visit Provider Physician Assistant | DX: E11.621 Type 2 diabetes mellitus with foot ulcer (principal); L97.521 Non-pressure chronic ulcer of other part of left foot limited to breakdown of skin | CPT/HCPCS: G0463 ==

== ENCOUNTER 2024-06-01 13:53 | Outpatient (OUT) | payer MEDICARE, MEDICAID, SELFPAY ==
[2024-06-01 14:21] LABS: Basophils Percent Auto 0.6 % (0.2-2.0); Eosinophils Absolute Auto 0.2 10^3/uL (0.0-0.7); Eosinophils Percent Auto 2.7 % (0.9-7.0); Hematocrit 41.6 % (36.0-48.0); Hemoglobin 13.7 g/dL (12.0-16.0); Immature Granulocytes Abs Auto 0.02 10^3/uL (0.00-0.03); Immature Granulocytes Pct Auto 0.3 % (0.0-0.5); Lymphocytes Absolute Auto 2.6 10^3/uL (1.2-3.8); Lymphocytes Percent Auto 41.2 % (20.5-60.0); Mean Corpuscular HGB Conc 32.9 g/dL (29.9-35.2); Mean Corpuscular Hemoglobin 29.5 pg (26.7-34.0); Mean Corpuscular Volume 89.5 fL (81.0-99.0); Mean Platelet Volume 10.1 fL (9.5-13.5); Monocytes Absolute Auto 0.5 10^3/uL (0.3-0.8); Monocytes Percent Auto 7.6 % (1.7-12.0); Neutrophils Percent Auto 47.6 % (43.0-75.0); Platelet Count 298 10^3/uL (150-450); Red Blood Count 4.65 10^6/uL (4.20-5.40); Red Cell Distribution Width 13.2 % (11.0-15.0); White Blood Count 6.3 10^3/uL (4.0-11.0)
[2024-06-01 14:26] LABS: Anion Gap 9.8; BUN Creatinine Ratio 14.9; Carbon Dioxide 29.8 mmol/L (21.0-32.0); Chloride 105 mmol/L (98-107); Estimated GFR (African America >60 (>=60 mL/min/1.73m^2); Estimated GFR (Non-African Ame 58 (>=60 mL/min/1.73m^2); Glucose 171 mg/dL (74-106); Potassium 4.6 mmol/L (3.5-5.1); Sodium 140 mmol/L (136-145)
== END 2024-06-01 13:54 | disposition home or self-care (01) ==
LOC: LAB 13:55
PROVIDERS: PCP Family Medicine; Visit Provider Physician Assistant
DX: M86.8X7 Other osteomyelitis, ankle and foot (principal)
CPT/HCPCS: 36415; 80048; 85025

== ENCOUNTER 2024-06-07 14:19 | Emergency (ER) | payer MEDICARE, MEDICAID, SELFPAY ==
[2024-06-07] VITALS (26 sets, daily range): BP systolic 141–171; BP diastolic 71–99; PULSE 96–101; TEMP 36.8–36.9; O2SAT 92–99; BMI 85.1
--- OUTSIDE RECORDS SUMMARY | 2024-06-07 14:44 | XMS_ITS | CCD ---
Author Organization [facility] Care Team Providers Care Hide Tanner Name Role Phone PHYSICIAN, DEFAULT Unavailable Unavailable [...] DR SHAYY Reyes Primary Care Unavailable JORDYN BRUCE Attending Unavailable JORDYN BRUCE Admitting Unavailable Narinder Lan Consulting Unavailable DELA CRUZ, DR SHAYY Reyes Primary Care Unavailable JORDYN BRUCE Consulting Unavailable DELA CRUZ, DR SHAYY Reyes [...] MD Shayy Dela Cruz Attending Provider Sam, CHISEL WORKER Cathie C Attending Provider Scally, Cathie C Admitting Unavailable Sam, Cathie C Attending Unavailable Shayy Dela Cruz Admitting Unavailable Shayy Dela Cruz Primary Care Unavailable Shayy Dela Cruz Attending Unavailable Brittani Collier Admitting Unavailable Brittani Collier Attending Unavailable Shayy Dela Cruz Primary Care Unavailable Allergies Allergy Classification Reported Allergen(s) Allergy Type Date of Onset Reaction(s) Facility (1 source) codeine Drug Allergy 9 [facility] Repository (19 sources) Latex; Translations: [LATEX] Drug allergy (disorder) 9 sores on skin [facility] Rep[facility] (20 sources) Codeine; Translations: [CODEINE] Drug Allergy 0 nausea [facility] Repository (18 sources) Latex Drug allergy sores on skin Stupeflix Other (1 source) Codeine Drug Allergy [facility] Repository (1 source) atorvastatin; Translations: [ATORVASTATIN] Drug Allergy 3 [facility] Repository (8 sources) cat dander Allergy to substance 4 Sneezing, Itching [facility] (8 sources) dog dander Allergy to substance 4 Sneezing, Itching [facility] (8 sources) ozempic Propensity to adverse reactions 4 Vomiting [facility] (1 source) Codeine Drug Allergy 4 [facility] Repository (1 source) Latex Drug allergy (disorder) 4 [facility] Repository Medications Current Medications Medication Drug Class(es) Dates Sig (Normalized) Sig (Original) Albuterol Sulfate 108 (90 Base) MCG/ACT (6 [...] Platelet Aggregation Inhibitor, Nonsteroidal Anti-inflammatory Drug Start: 12-05-2023 Aspirin (Adult Low Dose Aspirin) 81 mg tablet,delayed release (DR/EC) Active 81 MG PO Daily December 04, 2023 11:00pm Start: 07-06-2023 End: 09-29-2023 Aspirin (Adult Low Dose Aspi rin) 81 mg tablet,delayed release (DR/EC) Discontinued 81 MG PO Daily July 06, 2023 12:00am September 29, 2023 12:34pm take 1 tablet by bin th every twenty-four hours Aspirin Adult Low Dose 81 MG 1 tablet Orally Once a day Active atorvastatin 40 mg oral tablet (20 sources) HMG-CoA Reductase Inhibitor Start: 03-13-2024 take 1 tablet by mouth once daily Atorvastatin 40 mg tablet Active 0 .ROUTE .COMPLEX 90 March 13, 2024 4:10pm TAKE 1 TABLET BY MOUTH EVERY DAY FOR 90 DAYS Start: 07-06-2023 End: 03-13-2024 take 1 tablet by mouth once daily Atorvastatin 40 mg tablet Discontinued 40 MG PO Daily July 18, 2023 11:00pm March 13, 2024 4:10pm Start: 05-12-2023 take 1 tablet by bin th every twenty-four hours Atorvastatin Calcium 40 MG 1 tablet Orally Once a day for 90 days May, Active Blood-Glucose Meter,Continuo us (Dexcom G7 [facility] Manager) misc (6 sources) Start: 12-13-2023 Blood-Glucose Meter,Continuous (Dexcom G7 [facility] Manager) misc Active 0 .Route December 12, 2023 11:00pm As directed Start: 12-13-2023 Blood-Glucose Meter,Continuous (Dexcom G7 [facility] [facility] Manager) misc Active 0 .Route December 13, 2023 12:00am As directed Start: 12-13-2023 Blood-Glucose Meter,Continuous (Dexcom G7 Collision Center Manager) misc Active 0 .ROUTE December 13, 2023 12:00am As directed Blood-Glucose Sensor (Dexcom G7 Sensor) device (6 sources) Start: 12-13-2023 Blood-Glucose Sensor (Dexcom G7 Sensor) device Active 0 .Route December 12, 2023 11:00pm As directed Start: 12-13-2023 Blood-Glucose Sensor (Dexcom G7 Sensor) device Active 0 .Route December 13, 2023 12:00am As directed Start: 12-13-2023 Blood-Glucose Sensor (Dexcom G7 Sensor) device Active 0 .ROUTE December 13, 2023 12:00am As directed carvedilol 6.25 mg oral tablet (20 sources) alpha-Adrenergic Petty, beta-Adrenergic Petty Start: 10-10-2023 End: 03-09-2024 take 1 tablet by mouth twice daily Carvedilol 6.25 mg tablet Active 6.25 MG PO Twice daily 180 March 09, 2024 9:42am Start: 07-06-2023 End: 10-10-2023 take 1 tablet by mouth once daily at mealtime Carvedilol 6.25 mg tablet Discontinued 6.25 MG PO Daily July 06, 2023 12:00am October 10, 2023 2:58pm FreeTextSi tablet with food Orally once a day; Note: Source Status: Taking; Refills: 3; Qty: 90 Tablet; Provider: Jose De Jesus Reyes take 1 tablet by bin every twenty-four hours Carvedilol 6.25 MG 1 tablet with food Orally once a day for 90 days Active cetirizine hydrochloride 10 mg oral tablet (12 sources) Histamine-1 Receptor Antagonist take 1 tablet by mouth every twenty-four hours ZyrTEC Allergy 10 MG 1 tablet Orally Once a day Active Dexcom G7 [facility] Manager - (4 sources) Start: 06-03-19 24 Dexcom G7 Coll[employer] [facility] Manager - as directed as directed 4 x daily for 365 days E 11.65, Z 79.4 Jun, Active Dexcom G7 Sensor - (4 sources) Start: 06-03-19 24 Dexcom G7 Sensor - as directed in vitro every 10 days for 90 days E 11.65, Z79.4 Jun, Active esomeprazole 40 mg delayed release oral capsule (20 sources) Proton Pump Inhibitor Start: 03-09-20 take 1 capsule by mouth once daily Esomeprazole Magnesium 40 mg capsule,delayed release(DR/EC) Active 0 .ROUTE .COMPLEX March 09, 2024 9:43am TAKE ONE CAPSULE BY MOUTH DAILY Start: 02-06-2024 take 1 capsule by mo uth once daily Esomeprazole Magnesium Active 0 .ROUTE .COMPLEX February 06, 2024 9:00am TAKE ONE CAPSULE BY MOUTH DAILY Start: 07-06-2023 End: 02-06-2024 take 1 capsule by mouth once daily Esomeprazole Magnesium 40 mg capsule,delayed release(DR/EC) Discontinued 40 MG PO Daily July 06, 2023 12:00am February 06, 2024 8:00am FreeTextSig: TAKE ONE CAPSULE BY MOUTH DAILY 90; Note: Source Status: Taking; Refills: 1; Qty: 90 Each; Provider: Jose De Jesus Reyes take 1 capsule by mo uth once daily Esomeprazole Magnesium 40 mg TAKE ONE CAPSULE BY MOUTH DAILY 90 for 90 Active fluticasone propionate 0.05 mg/actuat metered dose nasal spray (20 sources) Corticosteroid Start: 02-07-2024 take 1 puff(s) by inhalation twice daily Fluticasone Propionate Active 2 PUFF INHALATION Twice daily February 07, 2024 8:24am Start: 02-01-2024 End: 03-26-2024 Fluticasone Propionate 50 mcg/actuation spray,suspension Active 2 SPRAY INTRANASAL Daily March 26, 2024 1:10pm Start: 11-29-2023 End: 02-07-2024 take 1 puff(s) [...] nasal route once daily Fluticasone Propionate 50 mcg/actuation spray,suspension Discontinued 2 SPRAY INTRANASAL Daily July 06, 2023 12:00am February 01, 2024 3:49pm FreeTextSi spray in each nostril Nasally Once [...] each nostril Nasally Once a day Active Fluticasone Propionate 110 mcg/actuation HFA aerosol inhaler (10 sources) Start: 04-09-2024 take 1 puff(s) by inhalation twice daily Fluticasone Propionate 110 mcg/actuation HFA aerosol inhaler Active 2 PUFF INHALATION Twice daily April 09, 2024 4:53pm Start: 02-07-2024 End: 04-09-2024 take 1 puff(s) by inhalation twice daily Fluticasone Propionate 110 mcg/actuation HFA aerosol inhaler Discontinued 2 PUFF INHALATION Twice daily February 07, 2024 7:24am April 09, 2024 4:53pm Start: 11-29-2023 End: 02-07-2024 take 1 puff(s) by inhalation twice daily Fluticasone Propionate 110 mcg/actuation HFA aerosol inhaler Discontinued 2 PUFF INHALATION Twice daily November 29, 2023 3:24pm February 07, 2024 7:24am Start: 07-28-2023 End: 11-29-2023 take 1 puff(s) by inhalation twice daily Fluticasone Propionate 110 mcg/actuation HFA aerosol inhaler Discontinued 2 PUFF INHALATION Twice daily July 28, 2023 11:40am November 29, 2023 3:24pm Start: 07-06-2023 End: 07-28-2023 take 2 puff(s) by mouth twice daily Fluticasone Propionate 110 mcg/actuation HFA aerosol inhaler Discontinued INHALATION July 06, 2023 12:00am July 28, 2023 11:43am FreeTextSig: INHALE 2 PUFFS BY MOUTH TWICE A DAY; Note: Source Status: Taking; Refills: 1; Qty: 36 Gram; Provider: Jose De Jesus Lucas ( ) FreeStyle Amrik 3 [place] - (3 sources) Start: 06-06-2023 FreeStyle Libr e 3 [place] - as directed invitro 4 times daily for 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 Jun, Active FreeStyle Amrik 3 Sensor - (3 sources) Start: 06-06-2023 FreeStyle Libr e 3 Sensor - as directed invitro change every 14 days for 84 days Dx E11.65 Jun, Active glipiZIDE 10 mg oral tablet (20 sources) Sulfonylurea Start: 08-24-2023 End: 03-08-2024 take 5 mg by mouth twice daily, then take 2 tablets by mouth at mealtime Glipizide 10 mg tablet Active 5 MG PO Twice daily March 08, 2024 12:53pm take 5 mg with 2 largest meals Start: 08-24-2023 take 5 mg by mouth t wice daily at mealtime Glipizide Active 5 MG PO Twice daily August 24, 2023 2:14pm FreeTextSig: take 5 mg twice daily with meals; Note: Source Status: Continue; Provider: Sam Brand Start: 07-06-2023 End: 08-24-2023 take 1 tablet by mouth twice daily at mealtime Glipizide 10 mg tablet Discontinued 10 MG PO Twice daily July 06, 2023 12:00am August 24, 2023 1:15pm FreeTextSig: take 1 tablet twice daily with [...] 79 Active Insulin Glargine U-300 Conc (Toujeo Max U-300 Solostar) 300 unit/mL (3 mL) insulin pen (5 sources) Start: 05-28-2024 Insulin Glargi ne U-300 Conc (Toujeo Max U-300 Solostar) 300 unit/mL (3 mL) insulin pen Active 87 UNIT SUBCUT Daily May 28, 2024 9:45am Titrate to 100 u daily, has written instructions. Dispense ToujeoSolostar if any procurement/ delay issues Start: 03-08-2024 End: 05-28-2024 Insulin Glargine U-300 Conc (Toujeo Max U-300 Solostar) 300 unit/mL (3 mL) insulin pen Discontinued 87 UNIT SUBCUT Daily March 08, 2024 11:14am May 28, 2024 9:48am Titrate to 100 u daily, has written instructions. Dispense ToujeoSolostar if any procurement/ delay issues Start: 03-08-2024 Insulin Glargi ne U-300 Conc (Toujeo Max U-300 Solostar) 300 unit/mL (3 mL) insulin pen Active 87 UNIT SUBCUT Daily March 08, 2024 11:14am Titrate to 100 u daily, has written instructions. Dispense ToujeoSolostar if any procurement/ delay issues Start: 02-24-2024 End: 03-08-2024 Insulin Glargine U-300 Conc (Toujeo Max U-300 Solostar) 300 unit/mL (3 mL) insulin pen Discontinued 30 UNIT SUBCUT Daily February 23, 2024 11:00pm March 08, 2024 11:15am Titrate to 100 u daily, has written instructions. Dispense ToujeoSolostar if any procurement/ delay issues isopropyl alcohol 0.7 ml/ml medicated pad (20 sources) Start: 12-23-2023 End: 12-23-2023 Alcohol Swabs pads, medicate d Active 1 PAD TOPICAL Three times daily as needed for Dx E11.65 or insurance preferred 300 December 23, 2023 10:17am Use to cleanse skin before checking blood sugar Start: 07-06-2023 End: 12-23-2023 Alcohol Swabs pads, medicate d Discontinued PAD TOPICAL July 06, 2023 12:00am December 23, 2023 10:13am FreeTextSig: as directed 4 times a day; Note: Source Status: Taking; Refills: 3; Provider: Jose De Jesus Reyes Alcohol Swabs - as directed 4 times a day for 30 days Active Alcohol Swabs - as directed Active metFORMIN hydrochloride 1000 mg oral tablet (20 sources) Biguanide Start: 05-28-2024 Metformin 1,00 0 mg tablet Active 0 .ROUTE .COMPLEX 180 May 28, 2024 5:00pm TAKE 1 TABLET TWICE A DAY Start: 07-06-2023 End: 05-28-2024 take 1 tablet by mouth once daily Metformin 1,000 mg tablet Discontinued 1000 MG PO Daily July 19, 2023 10:06am May 28, 2024 5:00pm FreeTextSi tablet with a meal Orally Once a day; Note: Source Status: Continue; Provider: Jose De Jesus Reyes take 1 tablet by bni th every twenty-four hours metFORMIN HCl 1000 mg 1 tablet with a meal Orally Once a day Active take 1 tablet by bin th twice daily metFORMIN HCl 1000 mg TAKE [...] 10 MG PO Daily September 29, 2023 12:39pm take 1 tablet by bin th every [...] Active simethicone 125 mg oral caps ule (20 sources) Start: 09-29-2023 Simethicone (G as-X Extra Strength) 125 mg capsule Active 250 MG PO Daily at bedtime as needed September 29, 2023 12:39pm Start: 07-28-2023 End: 09-29-2023 Simethicone (Gas-X Extra Str ength) 125 mg capsule Discontinued 125 MG PO 1 to 2 times per day as needed July 27, 2023 11:00pm September 29, 2023 12:40pm Completed/Discontinued Medications Medication Drug Class(es) Dates Sig (Normalized) Sig (Original) [id number] 200 actuat albuterol 0.09 mg/actuat metered dose inhaler (20 sources) beta2-Adrenergic Agonist Start: 01-23-2024 End: 05-07-2024 take 2 puff(s) by inhalation every four hours as needed Albuterol Sulfate 90 mcg/actuation HFA aerosol inhaler Discontinued 0 .ROUTE .COMPLEX 8.5 March 13, 2024 4:10pm May 07, 2024 10:18am INHALE 2 PUFFS EVERY 4 HOURS NEEDED FOR WHEEZE OR FOR SHORTNESS OF BREATH Start: 07-28-2023 End: 01-23-2024 take 1 puff(s) by inhalation every four hours as needed for wheezing Albuterol Sulfate 90 mcg/actuation HFA aerosol inhaler Discontinued 2 PUFF INHALATION Every 4 hours as needed for shortness of breath or wheezing 8.5 November 29, 2023 3:24pm January 23, 2024 12:13pm take 2 puff(s) by in halation every [...] for 17 Active ProAir HFA Activ e azithromycin 250 mg oral tablet (18 sources) Macrolide Antimicrobial Start: 06-22-2022 Azithromycin 250 MG as directed Orally 2 tabs po today, then 1 tab daily x 4 more days for 5 Jun, Not-Taking/PRN Blood-Glucose Meter,Continuous (Freestyle Amrik 3 [place]) misc (13 sources) Start: 07-28-2023 End: 12-13-2023 Blood-Glucose Meter,Continuous (Freestyle Amrik 3 [place]) misc Discontinued EACH .ROUTE .MEDSUPPLY July 27, 2023 11:00pm December 13, 2023 12:09pm As directed Start: 07-28-2023 End: 12-13-2023 Blood-Glucose Meter,Continuo us (Freestyle Amrik 3 [place]) misc Discontinued EACH .ROUTE .MEDSUPPLY July 28, 2023 12:00am December 13, 2023 1:09pm As directed Start: 07-28-2023 Blood-Glucose Meter,Continuous (Freestyle Amrik 3 [place]) misc Active EACH .ROUTE .MEDSUPPLY July 28, 2023 12:00am As directed Blood-Glucose Sensor (Freest yle Amrik 3 Sensor) device (13 sources) Start: 07-28-2023 End: 12-13-2023 Blood-Glucose Sensor (Freest yle Amrik 3 Sensor) device Discontinued EACH .ROUTE .MEDSUPPLY July 27, 2023 11:00pm December 13, 2023 12:09pm As directed Start: 07-28-2023 End: 12-13-2023 Blood-Glucose Sensor (Freest yle Amrik 3 Sensor) device Discontinued EACH .ROUTE .MEDSUPPLY July 28, 2023 12:00am December 13, 2023 1:09pm As directed Start: 07-28-2023 Blood-Glucose Sensor (Freestyle Amrik 3 Sensor) device Active EACH .ROUTE .MEDSUPPLY July 28, 2023 12:00am As directed Esomeprazole Magnesium 40 mg capsule,delayed release(DR/EC) (2 sources) Start: 02-06-2024 End: 03-09-2024 take 1 capsule by mouth once daily Esomeprazole Magnesium 40 mg capsule,delayed release(DR/EC) Discontinued 0 .ROUTE .COMPLEX 90 February 06, 2024 8:00am March 09, 2024 9:43am TAKE ONE CAPSULE BY MOUTH DAILY famotidine 20 mg oral tablet (20 sources) Histamine-2 Receptor Antagonist Start: 08-22-2023 End: 03-09-2024 take 1 tablet by mouth once daily at bedtime as needed Famotidine 20 mg tablet Discontinued 20 MG PO Daily at bedtime as needed September 29, 2023 12:37pm March 09, 2024 9:43am Insulin Aspart U-100 (Novolog Flexpen U-100 Insulin) 100 unit/mL (3 mL) insulin pen (14 sources) Start: 07-12-2023 End: 07-19-2023 inject 1 dose by subcutaneous injection once daily Insulin Aspart U-100 (Novolog Flexpen U-100 Insulin) 100 unit/mL (3 mL) insulin pen Discontinued 1 sliding scale dose SUBCUT Use as Directed July 11, 2023 11:00pm July 19, 2023 10:10am ICR 1:5, ISS 1:10, expect up to 100 u per day. Did not tolerate Lispro Start: 07-12-2023 End: 07-19-2023 inject 1 dose by subcutaneous injection once daily Insulin Aspart U-100 (Novolog Flexpen U-100 Insulin) 100 unit/mL (3 mL) insulin pen Discontinued 1 sliding scale dose SUBCUT Use as Directed July 12, 2023 12:00am July 19, 2023 11:10am ICR 1:5, ISS 1:10, expect up to 100 u per day. Did not tolerate Lispro Insulin Glargine U-300 Conc (Toujeo Solostar U-300 Insulin) 300 unit/mL (1.5 mL) insulin pen (20 sources) Start: 02-23-2024 End: 05-30-2024 Insulin Glargine U-300 Conc (Toujeo Solostar U-300 Insulin) 300 unit/mL (1.5 mL) insulin pen Discontinued 84 UNIT SUBCUT Daily February 23, 2024 12:21pm May 30, 2024 11:00am Start: 02-23-2024 Insulin Glargi ne U-300 Conc (Toujeo Solostar U-300 Insulin) 300 unit/mL (1.5 mL) insulin pen Active 84 UNIT SUBCUT Daily February 23, 2024 12:21pm Start: 02-23-2024 Insulin Glargi ne U-300 Conc (Toujeo Solostar U-300 Insulin) 300 unit/mL (1.5 mL) insulin pen Active 84 UNIT SUBCUT Daily February 23, 2024 1:21pm Start: 12-13-2023 End: 02-23-2024 Insulin Glargine U-300 Conc (Toujeo Solostar U-300 Insulin) 300 unit/mL (1.5 mL) insulin pen Discontinued 80 UNIT SUBCUT Daily December 13, 2023 12:08pm February 23, 2024 12:22pm Start: 12-13-2023 End: 02-23-2024 Insulin Glargine U-300 [...] 76 UNIT SUBCUT Daily August 24, 2023 1:13pm December 13, 2023 12:15pm Start: 08-24-2023 End: 12-13-2023 Insulin Glargine U-300 [...] 78 UNIT SUBCUT Daily July 28, 2023 11:38am August 24, 2023 1:15pm Start: 07-28-2023 End: 08-24-2023 Insulin Glargine U-300 [...] pen Discontinued UNIT SUBCUT July 06, 2023 12:00am July 28, 2023 11:43am FreeTextSi u Subcutaneous daily; Note: Source Status: Continue; Provider: Jose De Jesus Reyes Start: 07-06-2023 End: 07-28-2023 Insulin Glargine U-300 [...] Status: Continue; Provider: Jose De Jesus Reyes 3 ml insulin lispro 200 unt/ml pen injector (20 sources) Insulin Analog Start: 09-19-2023 End: 05-28-2024 Insulin Lispro (Humalog Kwikpen Insulin) 200 unit/mL (3 mL) insulin pen Discontinued 0 SUBCUT Use as Directed February 23, 2024 12:21pm March 07, 2024 5:26pm 1:3 ICR ac TID plus 1:10 Corrective scale ac(hs if >200 half dose) SQ, 90-day (expect up to 190 units/day) Start: 07-08-2023 End: 07-19-2023 Insulin Lispro (Humalog Kwik pen Insulin) 200 unit/mL (3 mL) insulin pen Discontinued 1 sliding scale dose SUBCUT Use as Directed 90 90 July 08, 2023 12:00am July 19, 2023 10:11am icr 1:5, iss 1:10, EXPECT UP TO [...] before meals & bedtime July 28, 2023 11:39am September 19, 2023 9:58am Start: 07-28-2023 End: 09-19-2023 inject 1 dose [...] insulin pen Discontinued SUBCUT July 08, 2023 9:01am July 28, 2023 11:43am Start: 07-08-2023 End: 07-28-2023 Insulin Lispro (Humalog Kwik pen Insulin) 100 unit/mL insulin pen Discontinued SUBCUT July 08, 2023 10:01am July 28, 2023 12:43pm Start: 07-08-2023 Insulin Lispro (Humalog Kwikpen Insulin) 100 unit/mL insulin pen Active SUBCUT July 08, 2023 10:01am Start: 07-06-2023 End: 07-08-2023 Insulin Lispro (Humalog Kwik pen Insulin) 100 unit/mL insulin pen Discontinued SUBCUT July 06, 2023 12:00am July 08, 2023 9:08am FreeTextSig: ISS 1:10 and ICF 1:5 Subcutaneous 4 x daily; Note: Source Status: ContinueExpect up to 120 u per day; Provider: Sam Calvillo Start: 07-06-2023 End: 07-08-2023 Insulin Lispro (Humalog Kwik pen Insulin) 100 unit/mL insulin pen Discontinued SUBCUT July 06, 2023 1:00am July 08, 2023 10:08am FreeTextSig: ISS 1:10 and ICF 1:5 Subcutaneous 4 x daily; Note: Source Status: ContinueExpect up to 120 u per day; Provider: Sam Calvillo losartan potassium 25 mg oral tablet (20 sources) Angiotensin 2 Receptor Petty Start: 07-28-2023 End: 03-09-2024 take 1 tablet by mouth once daily Losartan 25 mg tablet Discontinued 25 MG PO Daily October 11, 2023 7:39am March 09, 2024 9:43am Start: 07-06-2023 End: 07-19-2023 take 1 tablet by mouth once daily Losartan 25 mg tablet Discontinued 1 TAB PO Daily July 06, 2023 12:00am July 19, 2023 10:12am FreeTextSi tablet Orally Once a day; Note: Source Status: Taking; Provider: Sam Brand ( ) take 1 tablet by bin th every twenty-four hours Losartan Potassium 25 MG 1 tablet Orally Once a day Active meloxicam 15 mg oral tablet (9 sources) Nonsteroidal Anti-inflammatory Drug Start: 09-29-2023 End: 12-05-2023 take 1 tablet by mouth once daily Meloxicam 15 mg tablet Discontinued 15 MG PO Daily September 28, 2023 11:00pm December 05, 2023 10:28am Semaglutide (12 sources) Start: 07-28-2023 End: 08-19-2023 Semaglutide (Ozempic) 0.25 mg or 0.5 mg (2 mg/3 mL) pen injector Discontinued 0.25 MG SUBCUT every week 1.84 July 27, 2023 11:00pm August 19, 2023 9:52am for 4 weeks Start: 07-28-2023 End: 08-19-2023 Semaglutide (Ozempic) 0.25 m g or 0.5 mg (2 mg/3 mL) pen injector Discontinued 0.25 MG SUBCUT every week 1.84 30 July 28, 2023 12:00am August 19, 2023 10:52am for 4 weeks simvastatin 20 mg oral tablet (20 sources) HMG-CoA Reductase Inhibitor Start: 07-06-2023 End: 07-19-2023 take 1 tablet by mouth once daily in the evening Simvastatin 20 mg tablet Discontinued 1 TAB PO Daily July 06, 2023 12:00am July 19, 2023 10:07am FreeTextSi tablet in the evening Orally Once a day; Note: Source Status: Not-TakingundefinedPRN; Provider: Sam Brand ( ) take 1 tablet by bin th every twenty-four hours Simvastatin 20 MG 1 tablet in the evenin g Orally Once a day Not-Taking/PRN tiZANidine 4 mg oral tablet (20 sources) Central alpha-2 Adrenergic Agonist Start: 07-06-2023 End: 07-19-2023 take 1 tablet by mouth three times daily as needed Tizanidine 4 mg tablet Discontinued 4 MG PO Three times daily July 06, 2023 12:00am July 19, 2023 10:08am FreeTextSi tablet as needed Orally Three times a day; Note: Source Status: Not-TakingundefinedP RN; Provider: Sam Brand ( ) take 1 [...] angina pectoris; 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] Onset: 11-23-2022 Chronic Diabetes mellitus with complications (20 sources) [...] Onset: 05-19-2022 Chronic Fracture of upper limb (18 sources) Fracture at wrist and/or hand level; [...] Onset: 11-09-2021 Chronic Other aftercare (17 sources) 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; Translations: [Long-term (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 of insulin] Onset: 04-08-2022 Episodic Other aftercare (20 sources) Long-term current use of insulin; Translations: [halfway (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 of insulin] 07-28-2023 Episodic Other [...] injuries and conditions due to external causes (13 sources) Fracture of bone; Translations: [Other injury of unspecified body region, initial encounter] 07-28-2023 Episodic Other non-traumatic joint disorders (5 sources) Shoulder pain; Translations: [Pain in left shoulder] Episodic Other non-traumatic joint disorders (13 sources) Pain in left shoulder; Translations: [Left shoulder pain] Episodic Other non-traumatic joint disorders (9 sources) Ankle pain; Translations: [Pain in right [...] Chronic Other nutritional; endocrine; and metabolic disorders (13 sources) Body mass index 30+ - obesity; Translations: [Body mass index (BMI) 37.0-37.9, adult] 07-28-2023 Chronic Other screening for suspected conditions (not mental disorders or infectious disease) (17 sources) Encounter for screening mammogram for malignant [...] Onset: 04-08-2022 Episodic Other aftercare (1 source) halfway (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; Translations: [[employer] FORMER CURRENT USE OF ASPIRIN] Onset: 04-08-2022 Episodic Other aftercare (1 source) halfway (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 of oral hypoglycemic drugs; Translations: [PRISON USE ORAL HYPOGLYCEMIC DX] Onset: 04-08-2022 Episodic Other aftercare (1 source) Other [facility]p (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 therapy; Translations: [OTH PRISON CURRENT DRUG THERAPY] Onset: 11-09-2021 Episodic Other [...] Test Name Value Interpretation Reference Range Facility Basophils Auto (Bld) [#/Vol] on 05-16-2024 Basophils (Bld) [#/Vol] Automated basophil count 0.0-0.1 [facility] Basophils/100 WBC Auto (Bld) on 05-16-2024 Basophils/100 WBC (Bld) Automated basophil % 0.2-2.0 [facility] Eosinophils/100 WBC Auto (Bl d)on 05-16-2024 Eosinophils/100 WBC (Bld) Automated eosinophil % 0.9-7.0 [facility] Erythrocyte distribution wid th Auto (RBC) [Ratio]on 05-16-2024 Erythrocyte distribution width (RBC) [Ratio] Erythrocyte distribution width [Ratio] by Automated count 11.0-15.0 [facility] Estimated glomerular filtrat ion rate (GFR) non- Americanon 05-16-2024 GFR/1.73 sq M.predicted among non-blacks MDRD (S/P/Bld) [Vol rate/Area] Estimated glomerular filtration rate (GFR) non- Low >=60 mL/min/1.73m 2 [facility] Hematocrit Auto (Bld) [Volum e fraction]on 05-16-2024 Hematocrit (Bld) [Volume fraction] Hematocrit [Volume Fraction] of Blood by Automated count 36.0-48.0 [facility] Hemoglobin [Mass/volume] in Bloodon 05-16-2024 Hemoglobin (Bld) [Mass/Vol] Hemoglobin [Mass/volume] in Blood 12.0-16.0 [facility] Laboratory - Chemistry and C hemistry - challengeon 05-16-2024 Calcium [Mass/Vol] 9.1 mg/dL 8.5-10.1 [facility] Chloride [Moles/Vol] 104 mmol/L 98-107 [facility] CO2 [Moles/Vol] 30.6 mmol/L 21.0-32.0 [facility] Creatinine [Mass/Vol] 1.01 mg/dL 0.55-1.02 [facility] GFR/1.73 sq M.predicted MDRD (S/P/Bld) [Vol rate/Area] mL/min/{1.73_m2} >=60 mL/min/1.73m 2 [facility] Glucose [Mass/Vol] 206 mg/dL High 74-106 [facility] Potassium [Moles/Vol] 5.1 mmol/L 3.5-5.1 [facility] Sodium [Moles/Vol] 141 mmol/L 136-145 [facility] Urea nitrogen [Mass/Vol] 12.0 mg/dL 7.0-18.0 [facility] Urea nitrogen/Creatinine [Mass ratio] 11.9 mg/mg [facility] - Hematology and Cell countson 05-16-2024 ESR (Bld) [Velocity] 28 mm/h <=30 [facility] Immature granulocytes/100 WBC (Bld) 0.3 % 0.0-0.5 [facility] Leukocytes [#/volume] correc alma delia for nucleated erythrocytes in Blood by Automated counon 05-16-2024 WBC corrected for nucl RBC Auto (Bld) [#/Vol] Leukocytes [#/volume] corrected for nucleated erythrocytes in Blood by Automated coun 4.0-11.0 [facility] Lymphocytes Auto (Bld) [#/Vo l]on 05-16-2024 Lymphocytes (Bld) [#/Vol] Lymphocytes [#/volume] in Blood by Automated count 1.2-3.8 [facility] Lymphocytes/100 WBC Auto (Bl d)on 05-16-2024 Lymphocytes/100 WBC (Bld) Lymphocytes/100 leukocytes in Blood by Automated count 20.5-60.0 [facility] MCH Auto (RBC) [Entitic mass ]on 05-16-2024 MCH (RBC) [Entitic mass] MCH [Entitic mass] by Automated count 26.7-34.0 [facility] MCHC Auto (RBC) [Mass/Vol]on 05-16-2024 MCHC (RBC) [Mass/Vol] MCHC [Mass/volume] by Automated count 29.9-35.2 [facility] MCV Auto (RBC) [Entitic vol] on 05-16-2024 MCV (RBC) [Entitic vol] MCV [Entitic volume] by Automated count 81.0-99.0 [facility] Monocytes Auto (Bld) [#/Vol] on 05-16-2024 Monocytes (Bld) [#/Vol] Automated blood monocyte count 0.3-0.8 [facility] Monocytes/100 WBC Auto (Bld) on 05-16-2024 Monocytes/100 WBC (Bld) Automated monocyte % 1.7-12.0 [facility] Neutrophils Auto (Bld) [#/Vo l]on 05-16-2024 Neutrophils (Bld) [#/Vol] Neutrophils [#/volume] in Blood by Automated count 1.4-6.5 [facility] Neutrophils/100 WBC Auto (Bl d)on 05-16-2024 Neutrophils/100 WBC (Bld) Automated neutrophil % 43.0-75.0 [facility] No Panel Informationon 05-16 C-Reactive Protein, Quantitative 1.26 mg/dL High <=0.50 [facility] Eosinophils # (Auto) 0.3 10 3/uL 0.0-0.7 [facility] Immature Granulocyte # (Auto) 0.02 10 3/uL 0.00-0.03 [facility] Platelet mean volume Auto (B ld) [Entitic vol]on 05-16-2024 Platelet mean volume (Bld) [Entitic vol] Platelet mean volume [Entitic volume] in Blood by Automated count 9.5-13.5 [facility] Platelets Auto (Bld) [#/Vol] on 05-16-2024 Platelets (Bld) [#/Vol] Platelets [#/volume] in Blood by Automated count 150-450 [facility] RBC Auto (Bld) [#/Vol]on RBC (Bld) [#/Vol] Erythrocytes [#/volu me] in Blood by Automated count 4.20-5.40 [facility] Serum or plasma anion gap de terminationon 05-16-2024 Anion gap [Moles/Vol] Serum or plasma anion gap determination [facility] Creatinine [Mass/volume] in UrineOrdered By: Cathie Vargas on 02-23-2024 Creatinine (U) [Mass/Vol] 28.00 mg/dL [facility] Comment on above: No reference range e stablished MicroAlb Creat Ratio,Uon Creatinine, Urine (Random) 28.00 mg/dL Normal [facility] Comment on above: Result Comment: No r eference range established Performed By: #### U RMACRERAT #### [facility] [address] Microalbumin/Creati nine Ratio Not performed Normal 0.0-30.0 [facility] Comment on above: Result Comment: PERF ORMED BY: [place] [address] PATHOLOGIST ROLL FILLER RUBINA RICCI M.D. Performed By: #### U RMACRERAT #### [facility] [address] [place] [address] [place] Microalbumin [Mass/volume] i n UrineOrdered By: Cathie Vargas on 02-23-2024 Albumin DL <= 20 mg/L (U) [Mass/Vol] mg/dL Normal 0.0-1.8 [facility] Comment on above: Performed By: #### U RMACRERAT #### [facility] [address] Urine microalbumin/creatinin e mass ratioOrdered By: Cathie Vargas on 02-23-2024 Albumin/Creatinine DL <= 20 mg/L (U) [Mass ratio] TNP [facility] Comment on above: Test not performed HbA1c HPLC (Bld) [Mass fract ion]on 12-13-2023 HbA1c (Bld) [Mass fraction] 9.9 % [facility] No Panel Informationon 12-12 Bedside Glucose 118 [facility] No Panel Informationon 09-28 Bedside Glucose 278 [facility] HbA1c HPLC (Bld) [Mass fract ion]on 07-28-2023 HbA1c (Bld) [Mass fraction] 10.3 % [facility] No Panel Informationon 07-27 Bedside Glucose 126 [facility] Basophils Auto (Bld) [#/Vol] on 07-12-2023 Basophils (Bld) [#/Vol] 0.0 10 3/uL 0.0-0.1 [facility] Basophils/100 WBC Auto (Bld) on 07-12-2023 Basophils/100 WBC (Bld) 0.5 % 0.2-2.0 [facility] Eosinophils/100 WBC Auto (Bl d)on 07-12-2023 Eosinophils/100 WBC (Bld) 1.5 % 0.9-7.0 [facility] Erythrocyte distribution wid th Auto (RBC) [Ratio]on 07-12-2023 Erythrocyte distribution width (RBC) [Ratio] 12.7 % 11.0-15.0 [facility] Estimated glomerular filtrat ion rate (GFR) non- Americanon 07-12-2023 GFR/1.73 sq M.predicted among non-blacks MDRD (S/P/Bld) [Vol rate/Area] mL/min/{1.73_m2} >=60 [facility] Hematocrit Auto (Bld) [Volum e fraction]on 07-12-2023 Hematocrit (Bld) [Volume fraction] 42.8 % 36.0-48.0 [facility] Hemoglobin [Mass/volume] in Bloodon 07-12-2023 Hemoglobin (Bld) [Mass/Vol] 14.3 g/dL 12.0-16.0 [facility] - Chemistry and C hemistry - challengeon 07-12-2023 Calcium [Mass/Vol] 9.1 mg/dL 8.5-10.1 [facility] Chloride [Moles/Vol] 100 mmol/L 98-107 [facility] CO2 [Moles/Vol] 26.1 mmol/L 21.0-32.0 [facility] Creatinine [Mass/Vol] 0.78 mg/dL 0.55-1.02 [facility] GFR/1.73 sq M.predicted MDRD (S/P/Bld) [Vol rate/Area] mL/min/{1.73_m2} >=60 [facility] Glucose [Mass/Vol] 215 mg/dL 74-106 [facility] Potassium [Moles/Vol] 4.0 mmol/L 3.5-5.1 [facility] Sodium [Moles/Vol] 137 mmol/L 136-145 [facility] Urea nitrogen [Mass/Vol] 12.0 mg/dL 7.0-18.0 [facility] Urea nitrogen/Creatinine [Mass ratio] 15.4 mg/mg [facility] - Hematology and Cell countson 07-12-2023 Immature granulocytes/100 WBC (Bld) 0.1 % 0.0-0.5 [facility] Leukocytes [#/volume] correc alma delia for nucleated erythrocytes in Blood by Automated counon 07-12-2023 WBC corrected for nucl RBC Auto (Bld) [#/Vol] 7.8 10 3/uL 4.0-11.0 [facility] Lymphocytes Auto (Bld) [#/Vo l]on 07-12-2023 Lymphocytes (Bld) [#/Vol] 2.7 10 3/uL 1.2-3.8 [facility] Lymphocytes/100 WBC Auto (Bl d)on 07-12-2023 Lymphocytes/100 WBC (Bld) 34.1 % 20.5-60.0 [facility] MCH Auto (RBC) [Entitic mass ]on 07-12-2023 MCH (RBC) [Entitic mass] 29.2 pg 26.7-34.0 [facility] MCHC Auto (RBC) [Mass/Vol]on 07-12-2023 MCHC (RBC) [Mass/Vol] 33.4 g/dL 29.9-35.2 [facility] MCV Auto (RBC) [Entitic vol] on 07-12-2023 MCV (RBC) [Entitic vol] 87.5 fL 81.0-99.0 [facility] Monocytes Auto (Bld) [#/Vol] on 07-12-2023 Monocytes (Bld) [#/Vol] 0.5 10 3/uL 0.3-0.8 [facility] Monocytes/100 WBC Auto (Bld) on 07-12-2023 Monocytes/100 WBC (Bld) 6.4 % 1.7-12.0 [facility] Neutrophils Auto (Bld) [#/Vo l]on 07-12-2023 Neutrophils (Bld) [#/Vol] 4.5 10 3/uL 1.4-6.5 [facility] Neutrophils/100 WBC Auto (Bl d)on 07-12-2023 Neutrophils/100 WBC (Bld) 57.4 % 43.0-75.0 [facility] No Panel Informationon 07-11 Eosinophils # (Auto) 0.1 10 3/uL 0.0-0.7 [facility] Immature Granulocyte # (Auto) 0.01 10 3/uL 0.00-0.03 [facility] Platelet mean volume Auto (B ld) [Entitic vol]on 07-12-2023 Platelet mean volume (Bld) [Entitic vol] 10.9 fL 9.5-13.5 [facility] Platelets Auto (Bld) [#/Vol] on 07-12-2023 Platelets (Bld) [#/Vol] 259 10 3/uL 150-450 [facility] RBC Auto (Bld) [#/Vol]on RBC (Bld) [#/Vol] 4.89 10 6/uL 4.20-5.40 [facility] Serum or plasma anion gap de terminationon 07-12-2023 Anion gap [Moles/Vol] 14.9 mmol/L [facility] Glucose - FINGER STICKon Glucose [Mass/Vol] 360 mg/dL [facility] Other Office Visiton 12-13-2022 Follow-up visit [id number] Arlette Ramos 1970 F Date Provider Department Center 12/13/2022 [id number] No family history on file Level of Service:39944 [place] OFFICE/OUTPATIENT ESTABLISHED LOW MDM 20-29 MIN Reason for Visit and Comments: Follow-up [376465] - 4 mo follow up Normal [facility] CBC AUTO DIFFon 08-27-2022 BASO # 0.0 103/ul Normal 0.0-0.1 [facility] Comment on above: Performed By: #### C BC #### [facility] [address] [place] [address] Dr. Sarah Church Basophils/100 WBC (Bld) 0.5 % Normal 0.2-2.0 [facility] Comment on above: Performed By: #### C BC #### [facility] [address] [place] [address] Dr. Sarah Church EO # 0.2 103/ul Normal 0.0-0.7 [facility] Comment on above: Performed By: #### C BC #### [facility] [address] [place] [address] Dr. Sarah Church Eosinophils/100 WBC (Bld) 2.2 % Normal 0.9-7.0 [facility] Comment on above: Performed By: #### C BC #### [facility] [address] [place] [address] Dr. Sarah Church Erythrocyte distribution width (RBC) [Ratio] 12.5 % Normal 11.0-15.0 [facility] Comment on above: Performed By: #### C BC #### [facility] [address] [place] [address] Dr. Sarah Church Hematocrit (Bld) [Volume fraction] 44.1 % Normal 36.0-48.0 [facility] Comment on above: Performed By: #### C BC #### [facility] [address] [place] [address] Dr. Sarah Church Hemoglobin (Bld) [Mass/Vol] 15.1 g/dL Normal 12.0-16.0 [facility] Comment on above: Performed By: #### C BC #### [facility] [address] [place] [address] Dr. Sarah Church IG # 0.02 10e3/ul Normal 0.00-0.03 [facility] Comment on above: Performed By: #### C BC #### [facility] [address] [place] [address] Dr. Sarah Church IG % 0.2 % Normal 0.0-0.5 [facility] Comment on above: Performed By: #### C BC #### [facility] [address] [place] [address] Dr. Sarah Church LYMPH # 2.9 103/ul Normal 1.2-3.8 [facility] Comment on above: Performed By: #### C BC #### [facility] [address] [place] [address] Dr. Sarah Church Lymphocytes/100 WBC (Bld) 33.4 % Normal 20.5-60.0 [facility] Comment on above: Performed By: #### C BC #### [facility] [address] [place] [address] Dr. Sarah Church MANUAL DIFF REQ NO Normal [facility] Comment on above: Performed By: #### C BC #### [facility] [address] [place] [address] Dr. Sarah Church MCH (RBC) [Entitic mass] 29.1 pg Normal 26.7-34.0 [facility] Comment on above: Performed By: #### C BC #### [facility] [address] [place] [address] Dr. Sarah Church MCHC (RBC) [Mass/Vol] 34.2 g/dL Normal 29.9-35.2 [facility] Comment on above: Performed By: #### C BC #### [facility] [address] [place] [address] Dr. Sarah Church MCV (RBC) [Entitic vol] 85.0 fL Normal 81.0-99.0 [facility] Comment on above: Performed By: #### C BC #### [facility] [address] [place] [address] Dr. Sarah Church MONO # 0.6 103/ul Normal 0.3-0.8 [facility] Comment on above: Performed By: #### C BC #### [facility] [address] [place] [address] Dr. Sarah Church Monocytes/100 WBC (Bld) 6.8 % Normal 1.7-12.0 [facility] Comment on above: Performed By: #### C BC #### [facility] [address] [place] [address] Dr. Sarah Church NEUT # 4.9 103/ul Normal 1.4-6.5 [facility] Comment on above: Performed By: #### C BC #### [facility] [address] [place] [address] Dr. Sarah Church Neutrophils/100 WBC (Bld) 56.9 % Normal 43.0-75.0 [facility] Comment on above: Performed By: #### C BC #### [facility] [address] [place] [address] Dr. Sarah Church Platelet mean volume (Bld) [Entitic vol] 10.8 fL Normal 9.5-13.5 [facility] Comment on above: Performed By: #### C BC #### [facility] [address] [place] [address] Dr. Sarah Church PLT 276 103/ul Normal 150-450 [facility] Comment on above: Performed By: #### C BC #### [facility] [address] [address] [address] Sarah Church RBC 5.19 106/ul Normal 4.20-5.40 [facility] Comment on above: Performed By: #### C BC #### [facility] [address] [address] [address] Sarah Church WBC 8.6 103/ul Normal 4.0-11.0 [facility] Comment on above: Performed By: #### C BC #### [facility] [address] [address] [address] Sarah Church LIPID PROFILEon 08-27-2022 CHOL-HDL RATIO NORM SEE BELOW Normal [facility] Comment on above: Result Comment: 3.3 - 4.4 LOW RISK 4.4 - 7.1 AVERAGE RISK 7.1 - 11.0 MODERATE RISK >11.0 HIGH RISK Performed By: #### L IPID, CMP #### [facility] [address] [place] [address] Dr. Sarah Church Cholesterol [Mass/Vol] 110 mg/dL Normal <=200 [facility] Comment on above: Performed By: #### L IPID, CMP #### [facility] [address] [place] [address] Dr. Sarah Church Cholesterol in HDL [Mass/Vol] 33 mg/dL Critically low 40-60 [facility] Comment on above: Performed By: #### L IPID, CMP #### [facility] [address] [address] [address] Sarah Church Cholesterol in LDL [Mass/Vol] 58.0 mg/dL Normal [facility] Comment on above: Performed By: #### L IPID, CMP #### [facility] [address] [place] [address] Dr. Sarah Church Cholesterol.total/C holesterol in HDL [Mass ratio] 3.3 {ratio} Normal [facility] Comment on above: Performed By: #### L IPID, CMP #### [facility] [address] [place] [address] Dr. Sarah Church HDL NORMAL > or = 60 mg/dl - LO W CARDIOVASCULAR RISK <40 mg/dl - HIGH CARDIOVASCULAR RISK Normal [facility] Comment on above: Performed By: #### L IPID, CMP #### [facility] [address] [address] [address] Sarah Church LDL CALC NORMAL SEE BELOW Normal [facility] Comment on above: Result Comment: <100 mg/dl OPTIMAL 100 - 129 mg/dl NEAR OR ABOVE OPTIMAL 130 - 159 mg/dl BORDERLINE HIGH 160 - 189 mg/dl HIGH >190 mg/dl VERY HIGH Performed By: #### L IPID, CMP #### [facility] [address] [address] [address] Sarah Church Triglyceride [Mass/Vol] 95 mg/dL Normal <=150 [facility] Comment on above: Performed By: #### L IPID, CMP #### [facility] [address] [place] [address] Dr. Sarah Church VLDL CALC 19.0 mg/dL Normal [facility] Comment on above: Performed By: #### L IPID, CMP #### [facility] [address] [address] [address] Sarah Church PROF 14(COMP METB)on 023 Albumin [Mass/Vol] 3.3 g/dL Critically low 3.4-5.0 [facility] Comment on above: Performed By: #### L IPID, CMP #### [facility] [address] [place] [address] Dr. Sarah Church Albumin/Globulin [Mass ratio] 0.8 {ratio} Normal [facility] Comment on above: Performed By: #### L IPID, CMP #### [facility] [address] [address] [address] Sarah Church ALP [Catalytic activity/Vol] 100 U/L Normal 46-116 [facility] Comment on above: Performed By: #### L IPID, CMP #### [facility] [address] [address] [address] Sarah Church ALT [Catalytic activity/Vol] 74 U/L Critically high 14-59 [facility] Comment on above: Performed By: #### L IPID, CMP #### [facility] [address] [address] [address] Sarah Church Anion gap [Moles/Vol] 13.2 mmol/L Normal [facility] Comment on above: Performed By: #### L IPID, CMP #### [facility] [address] [place] [address] Dr. Sarah Church AST [Catalytic activity/Vol] 42 U/L Critically high 15-37 [facility] Comment on above: Performed By: #### L IPID, CMP #### [facility] [address] [place] [address] Dr. Sarah Church Bilirubin [Mass/Vol] 0.4 mg/dL Normal 0.2-1.0 [facility] Comment on above: Performed By: #### L IPID, CMP #### [facility] [address] [place] [address] Dr. Sarah Church Calcium [Mass/Vol] 9.2 mg/dL Normal 8.5-10.1 [facility] Comment on above: Performed By: #### L IPID, CMP #### [facility] [address] [place] [address] Dr. Sarah Church Chloride [Moles/Vol] 99 mmol/L Normal 98-107 [facility] Comment on above: Performed By: #### L IPID, CMP #### [facility] [address] [place] [address] Dr. Sarah Church CO2 [Moles/Vol] 30.4 mmol/L Normal 21.0-32.0 [facility] Comment on above: Performed By: #### L IPID, CMP #### [facility] [address] [place] [address] Dr. Sarah Cuhrch Creatinine [Mass/Vol] 0.78 mg/dL Normal 0.55-1.02 [facility] Comment on above: Performed By: #### L IPID, CMP #### [facility] [address] [place] [address] Dr. Sarah Church EGFR-AF NICARAGUAN >60 Normal >=60 [facility] Comment on above: Performed By: #### L IPID, CMP #### [facility] [address] [place] [address] Dr. Sarah Church EGFR-NON AF NICARAGUAN >60 Normal >=60 [facility] Comment on above: Performed By: #### L IPID, CMP #### [facility] [address] [place] [address] Dr. Sarah Church Globulin (S) [Mass/Vol] 4.0 g/dL Normal [facility] Comment on above: Performed By: #### L IPID, CMP #### [facility] [address] [place] [address] Dr. Sarah Church Glucose [Mass/Vol] 255 mg/dL Critically high 74-106 [facility] Comment on above: Performed By: #### L IPID, CMP #### [facility] [address] [place] [address] Dr. Sarah Church Potassium [Moles/Vol] 3.6 mmol/L Normal 3.5-5.1 [facility] Comment on above: Performed By: #### L IPID, CMP #### [facility] [address] [place] [address] Dr. Sarah Church Protein [Mass/Vol] 7.3 g/dL Normal 6.4-8.2 [facility] Comment on above: Performed By: #### L IPID, CMP #### [facility] [address] [place] [address] Dr. Sarah Church Sodium [Moles/Vol] 139 mmol/L Normal 136-145 [facility] Comment on above: Performed By: #### L IPID, CMP #### [facility] [address] [place] [address] Dr. Sarah Church Urea nitrogen [Mass/Vol] 8.0 mg/dL Normal 7.0-18.0 [facility] Comment on above: Performed By: #### L IPID, CMP #### [facility] [address] [place] [address] Dr. Sarah Church Urea nitrogen/Creatinine [Mass ratio] 10.3 mg/mg Normal [facility] Comment on above: Performed By: #### L IPID, [facility] #### [facility] [address] [address] [address] Sarah Church 37on 08-10-2022 37 -Start hydrochlorothiazide 12.5 mg in the morning -Check labs 1 week after starting new medication -Take blood pressure to appointment with Dr. Dela Cruz for correlation Normal [facility] Office Visiton 08-10-2022 Follow-up visit [id number] Arlette Ramos 1970 F Date Provider Department Center 08/10/2022 [id number] BENITES [facility] No family history on file Level of Service:80958 [place] OFFICE/OUTPATIENT ESTABLISHED MOD MDM 30-39 MIN Reason for Visit and Comments: Coronary Artery Disease [187] Hypertension [209405] Normal [facility] MG MAMM SCREEN 3D ROB CADon 07-20-2022 MG MAMM SCREEN 3D ROB CAD Patient: ZOILA RAMOS Exam Date: 07/20/2022 : 1970 Gender:F Ordering : DR SHAYY DELA CRUZ M.D. Admission #: [id number] Family : Order #: [id number] CLICK HERE TO VIEW EXAM RADIOLOGY REPORT PROCEDURE: MAMMOGRAM SCREENING 3D BILATERAL CAD COMPARISON: MAMMO ROB SCREEN W CAD DIG, 05/16/2012. INDICATIONS: Screening mammography Calculator Name NCI Breast Cancer Risk Assessment Tool 5 Year Breast Cancer Risk 1.20% Lifetime Breast Cancer Risk 10.80% Personal Breast Cancer No Personal Ovarian Cancer No Treatments None Family Cancers None LOCATION: [facility] BREAST COMPOSITION: Almost entirely fatty. FINDINGS: [...] on 07/21/2022 at 08:24 Normal [facility] PROF CHEM 8 (BAS METB)on Anion gap [Moles/Vol] 14.5 mmol/L Normal [facility] Comment on above: Performed By: #### B MP #### [facility] [address] [address] [address] Sarah Church Calcium [Mass/Vol] 9.8 mg/dL Normal 8.5-10.1 [facility] Comment on above: Performed By: #### B MP #### [facility] [address] [address] [address] Sarah Church Chloride [Moles/Vol] 99 mmol/L Normal 98-107 [facility] Comment on above: Performed By: #### B MP #### [facility] [address] [place] [address] Dr. Sarah Church CO2 [Moles/Vol] 27.2 mmol/L Normal 21.0-32.0 [facility] Comment on above: Performed By: #### B MP #### [facility] [address] [address] [address] Sarah Church Creatinine [Mass/Vol] 0.80 mg/dL Normal 0.55-1.02 [facility] Comment on above: Performed By: #### B MP #### [facility] [address] [place] [address] Dr. Sarah Church EGFR-AF NICARAGUAN >60 Normal >=60 [facility] Comment on above: Performed By: #### B MP #### [facility] [address] [address] [address] Sarah Church EGFR-NON AF NICARAGUAN >60 Normal >=60 [facility] Comment on above: Performed By: #### B MP #### [facility] [address] [address] [address] Sarah Church Glucose [Mass/Vol] 458 mg/dL Critically high 74-106 T [facility] Comment on above: Performed By: #### B MP #### [facility] [address] [address] [address] Sarah Church Potassium [Moles/Vol] 4.7 mmol/L Normal 3.5-5.1 [facility] Comment on above: Performed By: #### B MP #### [facility] [address] [address] [address] Sarah Church Sodium [Moles/Vol] 136 mmol/L Normal 136-145 [facility] Comment on above: Performed By: #### B MP #### [facility] [address] [address] [address] Sarah Church Urea nitrogen [Mass/Vol] 15.0 mg/dL Normal 7.0-18.0 [facility] Comment on above: Performed By: #### B MP #### [facility] [address] [address] [address] Sarah Church Urea nitrogen/Creatinine [Mass ratio] 18.8 mg/mg Normal [facility] Comment on above: Performed By: #### B MP #### [facility] [address] [address] [address] Sarah Church Orders 06-04-2022 Orders Only [id number] Arlette Ramos 1970 F Date Provider Department Center 06/04/2022 JESSICA MAX MADELYN [facility] No family history on file [facility] 06-01-2022 36 Patient called and i s [...] for her high cholesterol . HELP!! lol [facility] Orders 06-01-2022 Orders Only [id number] Arlette Ramos 1970 F Date Provider Department Center 06/01/2022 MALCOLM SCHAFER. No family history on file [facility] 05-28-2022 36 Spoke with flaca she states to call in script of losartan 25 mg QD Normal [facility] GLYCOHEMOGLOBIN A1Con 2022 ADA RECOMMENDATION SEE BELOW Normal [facility] Comment on above: Result Comment: ADA RECOMMENDED LIMIT 4.0 - 6.0 ADA THERAPEUTIC TARGET < 7.0 ACTION SUGGESTED > 7.0 Performed By: #### A 1C ####[facility] [address] [place], [place] [address]TwCoretta Church Glucose [Mass/Vol] 266 mg/dL Normal [facility] Comment on above: Performed By: #### A 1C ####[facility] [address] [place], [place] [address]XqCoretta Church HbA1c (Bld) [Mass fraction] 10.9 % Critically high 4.5-6.2 [facility] Comment on above: Performed By: #### A 1C ####[facility] [address] [place], [place] [address]MzCoretta Church Office Visiton 05-19-2022 Follow-up visit [id number] Arlette Ramos 1970 F Date Provider Department Center 05/19/2022 Carlos-NATHAN, MALCOLM [facility] No family history on file Level of Service:96429 [place] OFFICE/OUTPATIENT ESTABLISHED MOD [facility] 30-39 MIN Reason for Visit and Comments: Coronary Artery Disease [187] Hyperlipidemia [182] Normal [facility] XR HIP RT 2 3V [...] by: JAVAD ROB Date: 2022-04-06 21:15 Normal [facility] CBC AUTO DIFFon 11-05-2021 BASO # 0.1 103/ul Normal 0.0-0.1 [facility] Comment on above: Performed By: #### C BC #### [facility] [address] [place], [place] [address] Dr. Sarah Church Basophils/100 WBC (Bld) 0.4 % Normal 0.2-2.0 [facility] Comment on above: Performed By: #### C BC #### [facility] [address] [place] [address] Dr. Sarah Church EO # 0.2 103/ul Normal 0.0-0.7 [facility] Comment on above: Performed By: #### C BC #### [facility] [address] [place] [address] Dr. Sarah Church Eosinophils/100 WBC (Bld) 1.3 % Normal 0.9-7.0 [facility] Comment on above: Performed By: #### C BC #### [facility] [address] [place] [address] Dr. Sarah Church Erythrocyte distribution width (RBC) [Ratio] 12.3 % Normal 11.0-15.0 [facility] Comment on above: Performed By: #### C BC #### [facility] [address] [place] [address] Dr. Sarah Church Hematocrit (Bld) [Volume fraction] 43.1 % Normal 36.0-48.0 [facility] Comment on above: Performed By: #### C BC #### [facility] [address] [place] [address] Dr. Sarah Church Hemoglobin (Bld) [Mass/Vol] 14.6 g/dL Normal 12.0-16.0 [facility] Comment on above: Performed By: #### C BC #### [facility] [address] [place] [address] Dr. Sarah Church IG # 0.04 10e3/ul Critically high 0.00-0.03 [facility] Comment on above: Performed By: #### C BC #### [facility] [address] [place] [address] Dr. Sarah Church IG % 0.3 % Normal 0.0-0.5 [facility] Comment on above: Performed By: #### C BC #### [facility] [address] [place] [address] Dr. Sarah Church LYMPH # 1.6 103/ul Normal 1.2-3.8 [facility] Comment on above: Performed By: #### C BC #### [facility] [address] [place] [address] Dr. Sarah Church Lymphocytes/100 WBC (Bld) 12.5 % Critically low 20.5-60.0 [facility] Comment on above: Performed By: #### C BC #### [facility] [address] [place] [address] Dr. Sarah Church MANUAL DIFF REQ NO Normal [facility] Comment on above: Performed By: #### C BC #### [facility] [address] [place] [address] Dr. Sarah Church MCH (RBC) [Entitic mass] 29.4 pg Normal 26.7-34.0 [facility] Comment on above: Performed By: #### C BC #### [facility] [address] [place] [address] Dr. Sarah Church MCHC (RBC) [Mass/Vol] 33.9 g/dL Normal 29.9-35.2 [facility] Comment on above: Performed By: #### C BC #### [facility] [address] [place] [address] Dr. Sarah Church MCV (RBC) [Entitic vol] 86.7 fL Normal 81.0-99.0 [facility] Comment on above: Performed By: #### C BC #### [facility] [address] [place] [address] Dr. Sarah Church MONO # 1.0 103/ul Critically high 0.3-0.8 [facility] Comment on above: Performed By: #### C BC #### [facility] [address] [place] [address] Dr. Sarah Church Monocytes/100 WBC (Bld) 7.7 % Normal 1.7-12.0 [facility] Comment on above: Performed By: #### C BC #### [facility] [address] [place] [address] Dr. Sarah Church NEUT # 9.6 103/ul Critically high 1.4-6.5 [facility] Comment on above: Performed By: #### C BC #### [facility] [address] [address] [address] Sarah Church Neutrophils/100 WBC (Bld) 77.8 % Critically high 43.0-75.0 [facility] Comment on above: Performed By: #### C BC #### [facility] [address] [address] [address] Sarah Church Platelet mean volume (Bld) [Entitic vol] 11.0 fL Normal 9.5-13.5 [facility] Comment on above: Performed By: #### C BC #### [facility] [address] [address] [address] Sarah Church PLT 220 103/ul Normal 150-450 [facility] Comment on above: Performed By: #### C BC #### [facility] [address] [address] [address] Sarah Church RBC 4.97 106/ul Normal 4.20-5.40 [facility] Comment on above: Performed By: #### C BC #### [facility] [address] [address] [address] Sarah Church WBC 12.4 103/ul Critically high 4.0-11.0 [facility] Comment on above: Performed By: #### C BC #### [facility] [address] [address] [address] Sarah Church GROUP A STREP CULTUREon S. pyogenes Ag Ql (Unsp spec) Culture Observations: NEGATIVE FOR GROUP A STREPTOCOCCUS. Normal [facility] Comment on above: Performed By: #### G RASTCX, SSCRN ####[facility] [address] [address]Dr. Sarah Church POINT OF CARE GLUCOSEon Glucose [Mass/Vol] 214 mg/dL Critically high 74-106 T [facility] Comment on above: Performed By: #### P OCGLUC #### [facility] [address] [place] [address] Dr. Sarah Church STREPT SCREENon 11-05-2021 STREP SCREEN A Negative Normal NEGATIVE [facility] Comment on above: Performed By: #### G RASTCX, SSCRN ####[facility] [address] [address]Dr. Sarah Church CBC AUTO DIFFon 10-16-2021 BASO # 0.1 103/ul Normal 0.0-0.1 [facility] Comment on above: Performed By: #### C BC #### [facility] [address] [address] [address] Sarah Church Basophils/100 WBC (Bld) 0.8 % Normal 0.2-2.0 [facility] Comment on above: Performed By: #### C BC #### [facility] [address] [address] [address] Sarah Church EO # 0.3 103/ul Normal 0.0-0.7 [facility] Comment on above: Performed By: #### C BC #### [facility] [address] [address] [address] Sarah Church Eosinophils/100 WBC (Bld) 3.4 % Normal 0.9-7.0 [facility] Comment on above: Performed By: #### C BC #### [facility] [address] [address] [address] Sarah Church Erythrocyte distribution width (RBC) [Ratio] 12.6 % Normal 11.0-15.0 [facility] Comment on above: Performed By: #### C BC #### [facility] [address] [address] [address] Sarah Church Hematocrit (Bld) [Volume fraction] 45.4 % Normal 36.0-48.0 [facility] Comment on above: Performed By: #### C BC #### [facility] [address] [address] [address] Sarah Church Hemoglobin (Bld) [Mass/Vol] 15.0 g/dL Normal 12.0-16.0 [facility] Comment on above: Performed By: #### C BC #### [facility] [address] [place] [address] Dr. Sarah Church IG # 0.02 10e3/ul Normal 0.00-0.03 [facility] Comment on above: Performed By: #### C BC #### [facility] [address] [place] [address] Dr. Sarah Church IG % 0.2 % Normal 0.0-0.5 [facility] Comment on above: Performed By: #### C BC #### [facility] [address] [place] [address] Dr. Sarah Church LYMPH # 2.7 103/ul Normal 1.2-3.8 [facility] Comment on above: Performed By: #### C BC #### [facility] [address] [place] [address] Dr. Sarah Church Lymphocytes/100 WBC (Bld) 31.0 % Normal 20.5-60.0 [facility] Comment on above: Performed By: #### C BC #### [facility] [address] [place] [address] Dr. Sarah Church MANUAL DIFF REQ NO Normal [facility] Comment on above: Performed By: #### C BC #### [facility] [address] [place] [address] Dr. Sarah Chucrh MCH (RBC) [Entitic mass] 29.3 pg Normal 26.7-34.0 [facility] Comment on above: Performed By: #### C BC #### [facility] [address] [place] [address] Dr. Sarah Church MCHC (RBC) [Mass/Vol] 33.0 g/dL Normal 29.9-35.2 [facility] Comment on above: Performed By: #### C BC #### [facility] [address] [place] [address] Dr. Sarah Church MCV (RBC) [Entitic vol] 88.7 fL Normal 81.0-99.0 [facility] Comment on above: Performed By: #### C BC #### [facility] [address] [place] [address] Dr. Sarah Church MONO # 0.6 103/ul Normal 0.3-0.8 [facility] Comment on above: Performed By: #### C BC #### [facility] [address] [place] [address] Dr. Sarah Church Monocytes/100 WBC (Bld) 6.5 % Normal 1.7-12.0 [facility] Comment on above: Performed By: #### C BC #### [facility] [address] [place] [address] Dr. Sarah Church NEUT # 5.0 103/ul Normal 1.4-6.5 [facility] Comment on above: Performed By: #### C BC #### [facility] [address] [place] [address] Dr. Sarah Church Neutrophils/100 WBC (Bld) 58.1 % Normal 43.0-75.0 [facility] Comment on above: Performed By: #### C BC #### [facility] [address] [place] [address] Dr. Sarah Church Platelet mean volume (Bld) [Entitic vol] 11.0 fL Normal 9.5-13.5 [facility] Comment on above: Performed By: #### C BC #### [facility] [address] [place] [address] Dr. Sarah Church PLT 226 103/ul Normal 150-450 [facility] Comment on above: Performed By: #### C BC #### [facility] [address] [place] [address] Dr. Sarah Church RBC 5.12 106/ul Normal 4.20-5.40 [facility] Comment on above: Performed By: #### C BC #### [facility] [address] [place] [address] Dr. Sarah Church WBC 8.6 103/ul Normal 4.0-11.0 [facility] Comment on above: Performed By: #### C BC #### [facility] [address] [place] [address] Dr. Sarah Church GLYCOHEMOGLOBIN A1Con 06-17- 2022 ADA RECOMMENDATION SEE BELOW Normal [facility] Comment on above: Result Comment: ADA RECOMMENDED LIMIT 4.0 - 6.0 ADA THERAPEUTIC TARGET < 7.0 ACTION SUGGESTED > 7.0 Performed By: #### A 1C ####[facility] [address] [address]Dr. Sarah Church Glucose [Mass/Vol] 275 mg/dL Normal [facility] Comment on above: Performed By: #### A 1C ####[facility] [address] [address]Dr. Sarah Church HbA1c (Bld) [Mass fraction] 11.2 % Critically high 4.5-6.2 [facility] Comment on above: Performed By: #### A 1C ####[facility] [address] [address]Dr. Sarah Church LIPID PROFILEon 10-16-2021 CHOL-HDL RATIO NORM SEE BELOW Normal [facility] Comment on above: Result Comment: 3.3 - 4.4 LOW RISK 4.4 - 7.1 AVERAGE RISK 7.1 - 11.0 MODERATE RISK >11.0 HIGH RISK Performed By: #### L IPID, CMP ####[facility] [address] [address]Dr. Sarah Church Cholesterol [Mass/Vol] 159 mg/dL Normal <=200 [facility] Comment on above: Performed By: #### L IPID, CMP ####[facility] [address] [address]Dr. Corriebrenden Church Cholesterol in HDL [Mass/Vol] 41 mg/dL Normal 40-60 [facility] Comment on above: Performed By: #### L IPID, CMP ####[facility] [address] [id number]. Sarah Church Cholesterol in LDL [Mass/Vol] 102.6 mg/dL Normal [facility] Comment on above: Performed By: #### L IPID, CMP ####[facility] [address] [id number]. Corriebrenden Ranjit Cholesterol.total/C holesterol in HDL [Mass ratio] 3.9 {ratio} Normal [facility] Comment on above: Performed By: #### L IPID, CMP ####[facility] [address] [address]Dr. Sarah Church HDL NORMAL > or = 60 mg/dl - LO W CARDIOVASCULAR RISK <40 mg/dl - HIGH CARDIOVASCULAR RISK Normal [facility] Comment on above: Performed By: #### L IPID, CMP ####[facility] [address] [address]Dr. Sarah Church LDL CALC NORMAL SEE BELOW Normal [facility] Comment on above: Result Comment: <100 mg/dl OPTIMAL 100 - 129 mg/dl NEAR OR ABOVE OPTIMAL 130 - 159 mg/dl BORDERLINE HIGH 160 - 189 mg/dl HIGH >190 mg/dl VERY HIGH Performed By: #### L IPID, CMP ####[facility] [address] [address]Dr. Sarah Church Triglyceride [Mass/Vol] 77 mg/dL Normal <=150 [facility] Comment on above: Performed By: #### L IPID, CMP ####[facility] [address] [address]Dr. Sarah Church VLDL CALC 15.4 mg/dL Normal [facility] Comment on above: Performed By: #### L IPID, CMP ####[facility] [address] [address]Dr. Sarah Church MICROALBUMIN, RAND URon 06- mALB 2.0 mg/L Normal <=30.0 [facility] Comment on above: Performed By: #### M ALBR #### [facility] [address] [address] [address] Sarah Church PROF 14(COMP METB)on 022 Albumin [Mass/Vol] 3.5 g/dL Normal 3.4-5.0 [facility] Comment on above: Performed By: #### L IPID, CMP ####[facility] [address] [address]Dr. Sarah Church Albumin/Globulin [Mass ratio] 0.8 {ratio} Normal [facility] Comment on above: Performed By: #### L IPID, CMP ####[facility] [address] [address]Dr. Sarah Church ALP [Catalytic activity/Vol] 85 U/L Normal 46-116 [facility] Comment on above: Performed By: #### L IPID, CMP ####[facility] [address] [address]Dr. Sarah Church ALT [Catalytic activity/Vol] 59 U/L Normal 14-59 [facility] Comment on above: Performed By: #### L IPID, CMP ####[facility] [address] [address]Dr. Corriebrenden Ranjit Anion gap [Moles/Vol] 15.1 mmol/L Normal [facility] Comment on above: Performed By: #### L IPID, CMP ####[facility] [id number] [place], [place] [address]Dr. Sarah Ranjit AST [Catalytic activity/Vol] 32 U/L Normal 15-37 [facility] Comment on above: Performed By: #### L IPID, CMP ####[facility] [address] [place], [place] [address]Dr. Corriebrenden Ranjit Bilirubin [Mass/Vol] 0.4 mg/dL Normal 0.2-1.0 [facility] Comment on above: Performed By: #### L IPID, CMP ####[facility] [address] [place], [place] [address]Dr. Sarah Church Calcium [Mass/Vol] 9.0 mg/dL Normal 8.5-10.1 [facility] Comment on above: Performed By: #### L IPID, CMP ####[facility] [address] [place], [place] [address]Dr. Sarah Church Chloride [Moles/Vol] 102 mmol/L Normal 98-107 [facility] Comment on above: Performed By: #### L IPID, CMP ####[facility] [address] [place], [place] [address]Dr. Sarah Church CO2 [Moles/Vol] 30.2 mmol/L Normal 21.0-32.0 [facility] Comment on above: Performed By: #### L IPID, CMP ####[facility] [address] [address]Dr. Sarah Church Creatinine [Mass/Vol] 0.81 mg/dL Normal 0.55-1.02 [facility] Comment on above: Performed By: #### L IPID, CMP ####[facility] [address] [id number]. Sarah Church EGFR-AF NICARAGUAN >60 Normal >=60 [facility] Comment on above: Performed By: #### L IPID, CMP ####[facility] [address] [address]Dr. Sarah Church EGFR-NON AF NICARAGUAN >60 Normal >=60 [facility] Comment on above: Performed By: #### L IPID, CMP ####[facility] [address] [address]Dr. Sarah Church Globulin (S) [Mass/Vol] 3.9 g/dL Normal [facility] Comment on above: Performed By: #### L IPID, CMP ####[facility] [address] [address]Dr. Sarah Church Glucose [Mass/Vol] 218 mg/dL Critically high 74-106 T [facility] Comment on above: Performed By: #### L IPID, CMP ####[facility] [address] [address]Dr. Sarah Church Potassium [Moles/Vol] 4.3 mmol/L Normal 3.5-5.1 [facility] Comment on above: Performed By: #### L IPID, CMP ####[facility] [address] [address]Dr. Sarah Church Protein [Mass/Vol] 7.4 g/dL Normal 6.4-8.2 [facility] Comment on above: Performed By: #### L IPID, CMP ####[facility] [address] [address]Dr. Sarah Church Sodium [Moles/Vol] 143 mmol/L Normal 136-145 [facility] Comment on above: Performed By: #### L IPID, CMP ####[facility] [address] [place], [place] [address]Qb. Sarah Church Urea nitrogen [Mass/Vol] 14.0 mg/dL Normal 7.0-18.0 [facility] Comment on above: Performed By: #### L IPID, CMP ####[facility] [address] [place], [place] [address]Ne. Sarah Church Urea nitrogen/Creatinine [Mass ratio] 17.2 mg/mg Normal [facility] Comment on above: Performed By: #### L IPID, CMP ####[facility] [address] [place], [place] [address]Ij. Sarah Church Vital Signs Date Time Vital Sign Value Performing Clinician Facility 05-30-2024 10:48-0500 Body height 157.48 cm [facility] 05-30-2024 10:48-0500 Body mass index (BMI) [Ratio] 38.5 kg/m2 [facility] 05-30-2024 10:48-0500 Body weight 95.7 kg [facility] 05-30-2024 10:48-0500 Diastolic blood pressure 77 mm[Hg] [facility] 05-30-2024 10:48-0500 Heart rate 80 /min [facility] 05-30-2024 10:48-0500 Systolic blood pressure 133 mm[Hg] [facility] 02-23-2024 13:23-0400 Body height 157.48 cm [facility] 02-23-2024 13:23-0400 Body mass index (BMI) [Ratio] 38 kg/m2 [facility] 02-23-2024 13:23-0400 Body weight 94.37 kg [facility] 02-23-2024 13:23-0400 Diastolic blood pressure 78 mm[Hg] [facility] 02-23-2024 13:23-0400 Heart rate 75 /min [facility] 02-23-2024 13:23-0400 Respiratory rate 18 /min [facility] 02-23-2024 13:23-0400 SaO2% (BldA) [Mass fraction] 97 % [facility] 02-23-2024 13:23-0400 Systolic blood pressure 170 mm[Hg] [facility] 12-13-2023 13:03-0400 Body height 157.48 cm [facility] 12-13-2023 13:03-0400 Body mass index (BMI) [Ratio] 37.1 kg/m2 [facility] 12-13-2023 13:03-0400 Body weight 92.07 kg [facility] 12-13-2023 13:03-0400 Diastolic blood pressure 86 mm[Hg] [facility] 12-13-2023 13:03-0400 Heart rate 78 /min [facility] 12-13-2023 13:03-0400 Respiratory rate 18 /min [facility] 12-13-2023 13:03-0400 SaO2% (BldA) [Mass fraction] 96 % [facility] 12-13-2023 13:03-0400 Systolic blood pressure 153 mm[Hg] [facility] 12-05-2023 11:24-0400 Body height 157.48 cm [facility] 12-05-2023 11:24-0400 Body mass index (BMI) [Ratio] 36.9 kg/m2 [facility] 12-05-2023 11:24-0400 Body weight 91.62 kg [facility] 12-05-2023 11:24-0400 Diastolic blood pressure 75 mm[Hg] [facility] 12-05-2023 11:24-0400 Heart rate 80 /min [facility] 12-05-2023 11:24-0400 Systolic blood pressure 133 mm[Hg] [facility] 09-29-2023 13:44-0400 Diastolic blood pressure 76 mm[Hg] [facility] 09-29-2023 13:44-0400 Systolic blood pressure 130 mm[Hg] [facility] 09-29-2023 13:19-0400 Body height 157.48 cm [facility] 09-29-2023 13:19-0400 Body mass index (BMI) [Ratio] 38.7 kg/m2 [facility] 09-29-2023 13:19-0400 Body weight 95.9 kg [facility] 09-29-2023 13:19-0400 Heart rate 89 /min [facility] 09-29-2023 13:19-0400 Respiratory rate 18 /min [facility] 09-29-2023 13:19-0400 SaO2% (BldA) [Mass fraction] 98 % [facility] 09-06-2023 11:08-0400 Body height 157.48 cm [facility] 09-06-2023 11:08-0400 Body mass index (BMI) [Ratio] 37.6 kg/m2 [facility] 09-06-2023 11:08-0400 Body weight 93.44 kg [facility] 09-06-2023 11:08-0400 Diastolic blood pressure 72 mm[Hg] [facility] 09-06-2023 11:08-0400 Heart rate 89 /min [facility] 09-06-2023 11:08-0400 Systolic blood pressure 127 mm[Hg] [facility] 08-24-2023 15:08-0400 Body height 157.48 cm [facility] 08-24-2023 15:08-0400 Body mass index (BMI) [Ratio] 37.5 kg/m2 [facility] 08-24-2023 15:08-0400 Body weight 93.21 kg [facility] 08-19-2023 10:43-0400 Body height 157.48 cm MD Shayy Dela Cruz Work Phone: [facility] 08-19-2023 10:43-0400 Body mass index (BMI) [Ratio] 37.5 kg/m2 MD Shayy Dela Cruz Work Phone: [facility] 08-19-2023 10:43-0400 Body weight 93.09 kg MD Shayy Dela Cruz Work Phone: [facility] 08-19-2023 10:43-0400 Diastolic blood pressure 79 mm[Hg] MD Shayy Dela Cruz Work Phone: [facility] 08-19-2023 10:43-0400 Heart rate 83 /min MD Shayy Dela Cruz Work Phone: [facility] 08-19-2023 10:43-0400 Systolic blood pressure 135 mm[Hg] MD Shayy DelaC ruz Work Phone: [facility] 07-28-2023 14:22-0400 Body height 157.48 cm MD Shayy Dela Cruz Work Phone: [facility] 07-28-2023 14:22-0400 Body mass index (BMI) [Ratio] 37.6 kg/m2 MD Shayy Dela Cruz Work Phone: [facility] 07-28-2023 14:22-0400 Body weight 93.44 kg MD Shayy Dela Cruz Work Phone: [facility] 07-28-2023 14:22-0400 Diastolic blood pressure 84 mm[Hg] MD Shayy Dela Cruz Work Phone: [facility] 07-28-2023 14:22-0400 Heart rate 83 /min MD Shayy Dela Cruz Work Phone: [facility] 07-28-2023 14:22-0400 Respiratory rate 18 /min MD Shayy Dela Cruz Work Phone: [facility] 07-28-2023 14:22-0400 SaO2% (BldA) [Mass fraction] 97 % MD Shayy Dela Cruz Work Phone: [facility] 07-28-2023 14:22-0400 Systolic blood pressure 140 mm[Hg] MD Shayy Dela Cruz Work Phone: [facility] 07-19-2023 10:57-0400 Body height 157.48 cm MD Shayy Dela Cruz Work Phone: [facility] 07-19-2023 10:57-0400 Body mass index (BMI) [Ratio] 37.1 kg/m2 MD Shayy Dela Cruz Work Phone: [facility] 07-19-2023 10:57-0400 Body weight 92.07 kg MD Shayy Dela Cruz Work Phone: [facility] 07-19-2023 10:57-0400 Diastolic blood pressure 68 mm[Hg] MD Shayy Dela Cruz Work Phone: [facility] 07-19-2023 10:57-0400 Heart rate 89 /min MD Shayy Dela Cruz Work Phone: [facility] 07-19-2023 10:57-0400 Systolic blood pressure 132 mm[Hg] MD Shayy Dela Cruz Work Phone: [facility] 05-25-2023 11:00-0500 Body height 157.48 cm Cathie Scally Other [facility] 05-25-2023 11:00-0500 Body mass index (BMI) [Ratio] 37.23 kg/m2 Cathie Scally Other [facility] [employer] Other 05-25-2023 11:00-0500 Body weight 92.35 kg Cathie Scally Other [facility] 05-25-2023 11:00-0500 Diastolic blood pressure 71 mm[Hg] Cathie Scally Other [facility] 05-25-2023 11:00-0500 Respiratory rate 18 /min Cathie Scally Other [facility] [employer] Other 05-25-2023 11:00-0500 SaO2% (BldA) [Mass fraction] 95 % Cathie Scally Other [facility] [employer] Other 05-25-2023 11:00-0500 Systolic blood pressure 139 mm[Hg] Cathie Scally Other [facility] 04-15-2023 11:00-0500 Body height 157.48 cm Shayy Dela Cruz Other [facility] 04-15-2023 11:00-0500 Body mass index (BMI) [Ratio] 37.49 kg/m2 Shayy Dela Cruz Other [facility] [employer] Other 04-15-2023 11:00-0500 Body weight 92.99 kg Shayy Dela Cruz Other [facility] [employer] Other 04-15-2023 11:00-0500 Body weight 92.98 kg MD Shayy Dela Cruz Work Phone: [facility] 04-15-2023 11:00-0500 Diastolic blood pressure 84 mm[Hg] Shayy Dela Cruz Other [facility] 04-15-2023 11:00-0500 Systolic blood pressure 142 mm[Hg] Shayy Dela Cruz Other [facility] 06-22-2022 13:30-0500 Body height 157.48 cm Shayy Dela Cruz Other [facility] [employer] Other 06-22-2022 13:30-0500 Body mass index (BMI) [Ratio] 36.94 kg/m2 Shayy Dela Cruz Other [employer] Other 06-22-2022 13:30-0500 Body weight 91.63 kg Shayy Dela Cruz Other [employer] Other 06-22-2022 13:30-0500 Diastolic blood pressure 74 mm[Hg] Shayy Dela Cruz Other [employer] Other 06-22-2022 13:30-0500 SaO2% (BldA) [Mass fraction] 97 % Shayy Dela Cruz Other [employer] Other 06-22-2022 13:30-0500 Systolic blood pressure 112 mm[Hg] Shayy Dela Cruz Other [facility] [employer] Other Encounters Encounter Date Encounter Type Care Provider Facility Start: 05-30-2024 End: 05-30-2024 ambulatory [facility] Work Phone: Start: 05-30-2024 End: 05-30-2024 Patient encounter procedure [facility] Work Phone: Start: 05-24-2024 End: 05-24-2024 ambulatory [facility] Work Phone: Start: 05-24-2024 End: 05-24-2024 Patient encounter procedure [facility] Work Phone: Start: 05-16-2024 Non-patient / Non-visit 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 Work Phone: [facility] Work Phone: Start: 02-23-2024 End: 02-23-2024 ambulatory [facility] Work Phone: Start: 02-23-2024 End: 02-23-2024 Patient encounter procedure [facility] Work Phone: Start: 01-17-2024 End: 01-17-2024 ambulatory [facility] Work Phone: Start: 01-17-2024 End: 01-17-2024 Patient encounter procedure [facility] Work Phone: Start: 12-13-2023 End: 12-13-2023 ambulatory [facility] Work Phone: Start: 12-13-2023 End: 12-13-2023 Patient encounter procedure [facility] Work Phone: Start: 12-05-2023 End: 12-05-2023 ambulatory [facility] Work Phone: Start: 12-05-2023 End: 12-05-2023 Patient encounter procedure [facility] Work Phone: Start: 11-07-2023 End: 11-07-2023 ambulatory [facility] Work Phone: Start: 11-07-2023 End: 11-07-2023 Patient encounter procedure [facility] Work Phone: Start: 09-29-2023 End: 09-29-2023 ambulatory [facility] Work Phone: Start: 09-29-2023 End: 09-29-2023 Patient encounter [facility] Work Phone: Start: 09-06-2023 End: 09-06-2023 ambulatory [facility] Work Phone: Start: 09-06-2023 End: 09-06-2023 Patient encounter procedure [facility] Work Phone: Start: 08-24-2023 End: 08-24-2023 ambulatory [facility] Work Phone: Start: 08-24-2023 End: 08-24-2023 Patient encounter procedure [facility] Work Phone: Start: 08-19-2023 End: 08-19-2023 ambulatory MD Shayy Dela Cruz Work Phone: [facility] Work Phone: Start: 08-19-2023 End: 08-19-2023 Patient encounter procedure MD Shayy Dela Cruz Work Phone: [facility] Work Phone: Start: 07-28-2023 End: 07-28-2023 ambulatory MD Shayy Dela Cruz Work Phone: [facility] Work Phone: Start: 07-28-2023 End: 07-28-2023 Patient encounter procedure MD Shayy Dela Cruz Work Phone: [facility] Work Phone: Start: 07-19-2023 End: 07-19-2023 ambulatory MD Shayy Dela Cruz Work Phone: [facility] Work Phone: Start: 07-19-2023 End: 07-19-2023 Patient encounter procedure MD Shayy Dela Cruz Work Phone: [facility] Work Phone: Start: 07-12-2023 Non-patient / Non-visit MD Shayy Dela Cruz Work Phone: [facility] Work Phone: Start: 06-14-2023 End: 06-14-2023 Patient encounter procedure MD Shayy Dela Cruz Work Phone: [facility] Work Phone: Start: 06-14-2023 End: 06-14-2023 ambulatory MD Shayy Dela Cruz Work Phone: [facility] Work Phone: Start: 06-06-2023 End: 06-06-2023 ambulatory Shayy Dela Cruz Other [employer] Other Start: 06-06-2023 Telephone encounter Shayy Dela Cruz [facility] Start: 05-25-2023 [facility] visit new patient Cathie love [facility] Start: 05-25-2023 End: 05-25-2023 ambulatory MD Shayy Dela Cruz Work Phone: [employer] Other Start: 05-25-2023 End: 05-25-2023 Discharged Recurring MD Shayy Dela Cruz Work Phone: [facility] Work Phone: Start: 05-25-2023 Registered Recurring MD Shayy Dela Cruz Work Phone: [facility] Work Phone: Start: 05-25-2023 End: 05-25-2023 Patient encounter procedure MD Shayy Dela Cruz Work Phone: [facility]- Start: 05-12-2023 End: 05-12-2023 ambulatory Shayy Dela Cruz Other [employer] Other Start: 05-12-2023 Telephone encounter Shayy Dela Cruz [facility] Start: 05-10-2023 End: 05-10-2023 ambulatory Shayy Dela Cruz Other [employer] Other Start: 05-10-2023 Telephone encounter Shayy Dela Cruz [facility] Start: 04-22-2023 End: 04-22-2023 ambulatory Shayy Dela Cruz Other [employer] Other Start: 04-22-2023 Telephone encounter Shayy Dela Cruz [facility] Start: 04-20-2023 End: 04-20-2023 ambulatory Lynne Hernandez Other [employer] Other Start: 04-20-2023 Telephone encounter Lynne Hernandez [facility] Start: 04-18-2023 End: 04-18-2023 ambulatory Lynne Hernandez Other [employer] Other Start: 04-18-2023 Telephone encounter Lynne galvan [facility] Start: 04-15-2023 End: 04-15-2023 ambulatory Shayy Dela Cruz Other [employer] Other Start: 04-15-2023 Office outpatient visit 15 minutes Shayy Dela Cruz [facility] Start: 04-15-2023 End: 04-15-2023 Patient encounter procedure MD Shayy Dela Cruz Work Phone: [facility] Work Phone: Start: 04-06-2023 End: 04-06-2023 ambulatory Shayy Dela Cruz Other [employer] Other Start: 04-06-2023 Telephone encounter Shayy Dela Cruz [facility] Start: 02-25-2023 End: 02-25-2023 ambulatory Shayy Dela Cruz Other [employer] Other Start: 02-25-2023 Telephone encounter Shayy Dela Cruz [facility] Start: 12-13-2022 End: 12-13-2022 [facility] Start: 10-29-2022 End: 10-29-2022 ambulatory Shayy Dela Cruz Other [employer] Other Start: 10-29-2022 Telephone encounter Shayy Dela Cruz [facility] Start: 08-27-2022 End: 08-28-[address] SHAYY DELA CRUZ Facility:[facility] Start: 08-10-2022 End: 08-10-2022 [facility] Start: 07-20-2022 End: 07-21-[address] SHAYY DELA CRUZ Facility:[facility] Start: 07-19-2022 End: 07-19-2022 ambulatory Shayy Dela Cruz Other [employer] Other Start: 07-19-2022 Telephone encounter Shayy Dela Cruz [facility] Start: 07-12-2022 End: 07-13-[address] SHAYY DELA CRUZ Facility:[facility] Start: 07-05-2022 End: 07-05-2022 ambulatory Shayy Dela Cruz Other [employer] Other Start: 07-05-2022 Telephone encounter Shayy Dela Cruz [facility] Start: 06-28-2022 End: 06-28-2022 ambulatory Shayy Dela Cruz Other [employer] Other Start: 06-28-2022 Telephone encounter Shayy Dela Cruz [facility] Start: 06-22-2022 End: 06-22-2022 ambulatory Shayy Dela Cruz Other [employer] Other Start: 06-22-2022 Office outpatient visit 15 minutes Shayy Dela Cruz [facility] Start: 05-27-2022 End: 05-27-2022 ambulatory Shayy Dela Cruz Other [employer] Other Start: 05-27-2022 Telephone encounter Shayy Dela Cruz [facility] Start: 05-19-2022 End: 05-20-[address] SHAYY DELA CRUZ Facility:[facility] Start: 04-14-2022 End: 04-15-2022 ambulatory JORDYN BRUCE Facility:[facility] Start: 04-06-2022 End: 04-07-[address] SHAYY DELA CRUZ Facility:[facility] Start: 01-11-2022 End: 01-12-[address] SHAYY DELA CRUZ Facility:[facility] Start: 11-05-2021 End: 11-05-[address] SHIRIN WOLFE . Facility:[facility] Start: 10-16-2021 End: 10-17-[address] SHAYY DELA CRUZ Facility:[facility] Start: 05-10-2017 End: 05-11-2017 Ambulatory DEFAULT PHYSICIAN Facility:[facility] Start: 05-05-2017 End: 05-06-2017 Ambulatory DEFAULT PHYSICIAN Facility:[facility] Procedures Date Procedure Procedure Detail Performing Clinician Start: 12-13-2022 Follow-up visit Follow-up YESSENIAOLIVEGabo AGUILARDELILAHMILTON Plan of Treatment Date Care Activity Detail Author Comprehensive metabo lic 2000 panel - Serum or Plasma [facility] enter MG Breast - bilateral Screening [facility] Immunizations Immunization Date Immunization Notes Care Provider Fa cility 02-01-2022 influenza virus vaccine, split virus (incl. purified surface antigen) Shayy Dela Cruz Other [employer] Other 02-01-2022 influenza virus vaccine, unspecified formulation MD Shayy Dela Cruz Work Phone: [facility] Payers Date Payer Category Payer Medicare [id number] 2023 Self-pay 2021 Medicaid [id number] 2017 Unknown [id number] 1972 Unknown [id number] 2.16.84 [id number] 1972 Unknown [id number] 2.16.84 [id number] 1972 Unknown [id number] 2.16.84 [id number] 1972 Unknown [id number] 2.16.84 [id number] 1972 Unknown [id number] 2.16.84 [id number] 1972 Unknown [id number] 2.16.84 [id number] 1972 Unknown [id number] 2.16.84 [id number] 1972 Unknown [id number] 2.16.84 [id number] 1972 Unknown [id number] 2.16.84 [id number] 1957 Medicaid [id number] 2. [id number] 1957 Medicare [id number] 2. [id number] Unknown Unknown [id number] 2.16.8 [id number] Unknown [id number] 2.16.8 [id number] Social History Date Type Detail Facility Unknown if ever smoked [facility] [employer] Other Sex Assigned At Sex Assigned At [facility] [employer] Other Start: 1970 Sex Assigned At Female [facility] Start: 07-19-2023 End: 05-25-2024 Tobacco smoking status NHIS Never smoked tobacco (finding) [facility] Start: 05-24-2024 End: 05-30-2024 Sex Female (finding) [facility] NEGATED: Highlighted row [facility] Medical Equipment Procedure Code Equipment [...] Verio Test Strips) strip Start: 12-23-2023 Lancets misc Start: 12-23-2023 Pen Needle, Diab etic (Bd Ultra-Fine Mini Pen Needle) 31 gauge x 3/16 needle Start: 08-23-2023 Blood Sugar Diagnostic (Onetouch Verio Test Strips) strip Start: 12-23-2023 End: 12-23-2023 Lancets misc Start: 12-23-2023 End: 12-23-2023 Pen Needle, Diab etic (Bd Ultra-Fine Mini Pen Needle) 31 gauge x 3/16 needle Start: 07-28-2023 End: 08-23-2023 Blood Sugar Diagnostic (Onetouch Verio Test Strips) strip Start: 12-23-2023 Lancets misc Start: 12-23-2023 Pen Needle, Diab etic (Bd Ultra-Fine Mini Pen Needle) 31 gauge x 3/16 needle Start: 08-23-2023 Blood Sugar Diagnostic (Onetouch Verio Test Strips) strip Start: 12-23-2023 End: 12-23-2023 Lancets misc Start: 12-23-2023 End: 12-23-2023 Pen Needle, Diab etic (Bd Ultra-Fine Mini Pen Needle) 31 gauge x 3/16 needle Start: 07-28-2023 End: 08-23-2023 Clinical Notes 01-11-2022 to 04-19-2024 Note Date & Type Note Facility 04-19-2024 Evaluation note Diagnosis Onset Date Resolution Type 2 diabetes mellitus acute April 19, [address] 024 2:03pm [facility] Work Phone: 1(465) 413-274812-19-2024 Evaluation note* Diagnosis Onset Date Resolution Status Admit Date Type 2 diabetes mellitus acute April 19, 2024 2:03pm Type 2 diabetes mellitus acute May 24, 2024 12:54pm [facility] Work Phone: 1(826) 381-637702-05-2024 Evaluation note* Encounter Date Diagnosis Assessment Notes Treatment Notes Treatment Clinical Notes Jun, Controlled type 2 diabetes mellitus with hyperglycemia, 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 6. Prescriptions: New patient 05-25-2023 uses [facility]. 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 She was taught how to use the [...] educating the patient by Nguyễn Norwood RN, [facility]. [employer] Other 12-15-2023 Evaluation note* Encounter Date Diagnosis Assessment Notes Treatment Notes Treatment Clinical Notes Apr, Type 2 diabetes mellitus with hyperglycemia (ICD-10 - E11.65) Rx handwritten for diabetic shoes. Pt agrees to referral to specialty clinic. Continue present meds and discussed healthy diet in meantime. 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 Mitral V (more content not included)...[facility] 08-10-2022 NoteCardiology Clinic Note Subjective [...] Active Problem List Diagnosis Coronary arteriosclerosis in jena artery Old myocardial infarction Sinusitis Type 1 [...] in size. The (more content not included)... [facility]02-21-2023 Evaluation note* Encounter Date Diagnosis Assessment Notes Treatment Notes Treatment Clinical Notes Jun, Acute non-recurrent maxillary sinusitis (ICD-10 - J01.00) Jun, Controlled type 2 diabetes mellitus with hyperglycemia, unspecified whether usp insulin use (ICD-10 - E11.65) Once again advised management at diabetes clinic. She declines and will continue meds, followup in 3 months, and recheck labs at that time. She is eating more of a keto diet and is certain that is helping her A1C improve. Jun, Screening mammogram for breast cancer (ICD-10 - Z12.31) Zoila will call for an appt [employer] Other 01-31-2023 NoteIn light of elevated LDL will change simvastatin to lipitor 40 mg daily. Will repeat liver function and lipid level in 2 months. Staff to notify pt. Malcolm Evans NP Division of Cardiology, [facility]- [phone] Pager- [phone] Email- [email or web address] NotePatient here for 1 year follow up [...] light-headedness. All other systems reviewed and are negative.[facility] 05-19-2022 NoteUTP CARDIOLOGY PROGRESS NOTE [...] past 12 months Assessment/Plan: Coronary arteriosclerosis in jena artery Coronary artery disease is stable, no [...] review B/P logUnSelect [facility]01-18-2023 Note Hypertension is uncontrolled, Will add lisinopril 5 mg po daily, and continue metoprolol Goal b/p 130/80 or less, monitor for dry persistent cough- call office for any concerns, repeat BMP in 1 week RTC 1 month to review B/P logUnSelect [facility]01-18-2023 Note Coronary artery disease is stable, no concerning symptoms continue risk factor modifications- heart healthy diet, regular exercise as tolerated and continue all medications.[facility] 04-15-2022 NotePROCEDURE: XR FOOT LT [...] authenticated by: NARINDER LAN Date: 2022-04-15 06:08[facility]09-12-2022 NotePROCEDURE: XR TOES RT MIN 2 V HISTORY: Pain of toe of right foot ; first toe pain following injury COMPARISON: None. FINDINGS: BONES:No fracture, acute abnormality, or significant arthropathy. SOFT TISSUES:No visible soft tissue swelling. EFFUSION:None visible. OTHER: Negative. IMPRESSION: 1. No acute bone abnormality. 2. Mild degenerative joint disease. Electronically authenticated by: NARINDER LAN Date: 2022-01-11 18:48[facility]+Reason for visit Narrative* Chief Complaint 3 Month Follow Up Referral Dr. Negro LAGUERRE download [facility] Work Phone: chief complaint+Reason for visit Narrative* Chief Complaint 3 Month Follow Up Referral Dr. Negro LAGUERRE download Reason for Visit Type 2 diabetes holli [facility] Work Phone: Chizs complaint+Reason for visit Narrative* Chief Complaint Referral Dr. Negro LAGUERRE download 3 Month Check up Reason for Visit Type 2 diabetes holli [facility] Work Phone: chief complaint+Reason for visit Narrative* Chief Complaint Referral Dr. Negro LAGUERRE download 3 Month Check up amrik reader Reason for Visit Type 2 diabetes holli itus Right wrist fracture Type [address] [facility] Work Phone: chief complaint+Reason for visit [...] mellitus Vitamin D deficiency Gastroesophageal reflux disease [facility] Work Phone: Evaluation noteNo InformationNort [employer] Other Evaluation noteNo assessment information available [facility] Work Phone: Evaluation note* Diagnosis Onset Date Resolution Status Type 2 diabetes mellitus acu te [facility] Work Phone: evaluation note* Diagnosis Onset Date Resolution Status Type 2 diabetes mellitus acu te Right wrist fracture acute Type 2 diabetes mellitus acu te [facility] Work Phone: evaluation note* Diagnosis Onset Date Resolution Status Type 2 diabetes mellitus acu te Right wrist fracture acute Type 2 diabetes mellitus acu te BMI 37.0-37.9, adult acute Dietary counseling and surveillance acute History of myocardial infarction acute HTN (hypertension) acute Hyperlipidemia acute Long-term insulin use acute Type 2 diabetes mellitus acu te Vitamin D deficiency acute Gastroesophageal reflux disease acute [facility] [facility] Work Phone: evaluation note* Diagnosis Onset [...] acute Type 2 diabetes [address] [facility] Work Phone: evaluation note* Diagnosis Onset [...] acute Type 2 diabetes mellitus [facility] Work Phone: Evaluation note* Diagnosis Onset [...] acute Type 2 diabetes mellitus [facility] te [facility] Work Phone: evaluation note* Diagnosis Onset [...] te Screening mammogram for breast cancer acute [facility] Work Phone: Evaluation note* Diagnosis Onset Date Resolution Status BMI [...] mellitus acu te Vitamin D deficiency acute [facility] Work Phone: Evaluation note* Diagnosis Onset [...] acute Type 2 diabetes mellitus acu te [facility] Work Phone: Evaluation note* Diagnosis Onset [...] mellitus acu te Vitamin D deficiency acute [facility] Work Phone: History general Narrative - Reported* Type Description Date Medical History Herpes labialis Medical History Candidiasis of mouth Medical History Type 2 diabetes holli itus with diabetic polyneuropathy, unspecified whether long line [employer]ster insulin use Medical History Controlled type 2 di abetes mellitus with hyperglycemia, unspecified whether usp insulin use Medical History Obesity Medical History Dyslipidemia Medical History CAD in jena artery Medical History Asthma, intermittent Medical History [...] History appendectomy Surgical History 7 stents 1999 Stupeflix Other History general Narrative - Reported* Type Description Date Medical History Herpes labialis Medical History Candidiasis of mouth Medical History Type 2 diabetes holli itus with diabetic polyneuropathy, unspecified whether usp insulin use Medical History Controlled type 2 di abetes mellitus with hyperglycemia, unspecified whether long line [place]ster insulin use Medical History Obesity Medical History Dyslipidemia Medical History CAD in jena artery Medical History Asthma, intermittent Medical History [...] stents 1999 Hospitalization History see surgical history Stupeflix Other Hisichm general Narrative - Reported* Type Description Date Medical History Herpes labialis Medical History Candidiasis of mouth Medical History Type 2 diabetes holli itus with diabetic polyneuropathy, unspecified whether usp insulin use Medical History Controlled type 2 di abetes mellitus with hyperglycemia, unspecified whether usp insulin use Medical History Obesity Medical History Dyslipidemia Medical History CAD in jena artery Medical History Asthma, intermittent Medical History [...] coronary 1999 Hospitalization History see surgical history Stupeflix Other Summary Purpose Family History Relationship Condition [...] mother Unknown Diabetes mellitus Unknown Advance Directives Advance Directive Response Recorded Date/ Time Advance Directives No September 22 3 2:19pm Advance Directive Response Recorded Date/ Time Advance Directives No September 22 3:19pm Advance Directive Response Recorded Date/ Time Advance Directives No May 25, 2024 2:03pm Reason for Referral Reason *FU 04/22 [facility] - on insulin. high readings. Diagnosis 1 Type 2 diabetes holli itus with hyperglycemia (E11.65) Referral Organization [facility] Karli fuchs Referring Provider First Name Shayy Referring Provider Last Name Jose De Jesus Referring Provider Specialty Family [facility] Referred Organization [facility] Referred Provider Marcia Mendes Referred Address [address] [place] [address],[facility],[place],[address] Referred Provider Specialty Nurse Huey saldaña Referral [...] diabetes mellitus Vitamin D deficiency Chief Complaint Admit Date Amb Documentation February 28, 2024 1 :37pm Amb Documentation May 07, 2024 3: 31pm Dexcom reader DL May 24, 2024 1 2:54pm Reason for Visit Admit Date Type 2 diabetes mellitus April 19, 2024 2:03pm Chief Complaint Admit Date Amb Documentation May 07, 2024 3: 31pm Dexcom reader DL May 24, 2024 1 2:54pm Wellness May 30, 2024 1 0:42am Reason for Visit Admit Date Type 2 diabetes mellitus April 19, 2024 2:03pm Type 2 diabetes mellitus May 24, 2 025 12:54pm Additional Source Comments INFORMATION SOURCE (unrecogn ized section and content) DATE CREATED AUTHOR 10/25/2017 [facility] DATE CREATED AUTHOR AUTHOR'S ORGANIZ ATION 09/03/2022 [facility] DATE CREATED AUTHOR AUTHOR'S ORGANIZ ATION 12/13/2022 [facility] DATE CREATED AUTHOR AUTHOR'S ORGANIZ ATION 02/25/[address] [facility] REASON FOR VISIT (unrecogniz ed section and content) labsmessage3 MONTH FOLLOW UP ACrefillmessagemessageRefill3 month Follow upDM [id number] ReferralrefillsNo InformationRefillReferral Dr. Negro Gallegos sensor running outNo Information Care Teams (unrecognized sec tion and content) Team Status: Active Member Role Status Dates PHYSICIAN NO FAMILY Primary Care Provider Active Team Status: Inactive Member Role Status Dates Brittani Collier , RN Attending Provider Active Start: April 19, 2024 End: April 19, 2024 Cathie Vargas APRN Active Star t: April 19, 2024 End: April 19, 2024 PHYSICIAN NO FAMILY Primary Care Provider Active Start: April 19, 2024 End: April 19, 2024 Team Status: Active Member Role Status Dates PHYSICIAN NO FAMILY Primary Care Provider Active Start: May 07, 2024 Brittney Drummond CMA Attending Provider Active Start: May 07, 2024 Team Status: Active Member Role Status Dates PHYSICIAN NO FAMILY Primary Care Provider Active Start: May 16, 2024 Jordyn Bruce DPM MS Attending Provider Active Start: May 16, 2024 Team Status: Inactive Member Role Status Dates PHYSICIAN NO FAMILY Primary Care Provider Active Start: May 24, 2024 End: May 24, 2024 Curtis Norwood RN Attending Provider Active St art: May 24, 2024 End: May 24, 2024 Cathie Vargas APRN Active Star t: May 24, 2024 End: May 24, 2024 Team Status: Inactive Member Role Status Dates PHYSICIAN NO FAMILY Primary Care Provider Active Start: May 30, 2024 End: May 30, 2024 Shayy Dela Cruz MD Attending Provider Active St art: May 30, 2024 End: May 30, 2024 Team Status: Active Member Role Status Dates [...] 2023 End: September 29, 2023 Cathie Vargas , CHISEL WORKER Attending Provider Active Start: September 29, 2023 End: September 29, 2023 Team Status: Inactive Member Role Status Dates Shayy Dela Cruz MD Primary Care Provider Active Start: November 07, 2023 End: November 07, 2023 Curtis Norwood RN Attending Provider Active St art: November 07, 2023 End: November 07, 2023 Cathie Vargas , CHISEL WORKER Active Star t: November 07, 2023 End: [...] 2023 End: July 28, 2023 Cathie Vargas , CHISEL WORKER Attending Provider Active Start: July 28, 2023 End: July 28, 2023 Team Status: Inactive Member Role Status Susan Dela Cruz MD Attending Provider Active St art: April 15, 2023 End: April 15, 2023 Team Status: Inactive Member Role Status Dates Cathie Vargas , FATEMEH Attending Provider Active Start: May 25, 2023 [...] 2023 End: June 14, 2023 Cathie Vargas , CHISEL WORKER Active Star t: June 14, 2023 End: [...] 2024 End: February 23, 2024 Team Status: Active Member Role Status Dates PHYSICIAN NO FAMILY Primary Care Provider Active Team Status: Active Member Role Status Dates Brittney Drummond CMA Attending Provider Active Start: February 28, 2024 Team Status: Inactive Member Role Status Dates Brittani Collier RN Attending Provider Active Start: April 19, 2024 End: April 19, 2024 Cathie Vagras , FATEMEH Active Star t: April 19, 2024 End: April 19, 2024 PHYSICIAN NO FAMILY Primary Care Provider Active Start: April 19, 2024 End: April 19, 2024 Team Status: Active Member Role Status Dates PHYSICIAN NO FAMILY Primary Care Provider Active Start: May 07, 2024 Brittney Drummond CMA Attending Provider Active Start: May 07, 2024 Team Status: Active Member Role Status Dates PHYSICIAN NO FAMILY Primary Care Provider Active Start: May 16, 2024 Jordyn Bruce DPM MS Attending Provider Active Start: May 16, 2024 Team Status: Inactive Member Role Status Dates PHYSICIAN NO FAMILY Primary Care Provider Active Start: May 24, 2024 End: May 24, 2024 Curtis Norwood RN Attending Provider Active St art: May 24, 2024 End: May 24, 2024 Cathie Vargas APRN Active Star t: May 24, 2024 End: May 24, 2024 Team Status: Inactive Member Role Status Dates PHYSICIAN NO FAMILY Primary Care Provider Active Start: May 30, 2024 End: May 30, 2024 Shayy Dela Cruz MD Attending Provider Active St art: May 30, 2024 End: May 30, 2024 Goals (unrecognized section and content) Goals [...] BE BASED ON THE PRIMARY CLINICAL RECORDS. [employer] provides no warranty or guarantee of the accuracy or completeness of information in this document.
--- NOTE | 2024-06-07 17:21 | PC.NURSE ---
this patient complains of swelling and a burning sensation(12/09) to 2nd and 3rd toes and inside 3rd toe black color, unknown onset
--- NOTE | 2024-06-07 17:29 | XR_ITS ---
[facility] [place] [id number] Patient Name: COLETTE DINH MRN: [id number] date: 1970 Sex: F Assigned Patient Location: ER Current Patient Location: ER Accession/Order Number: [id number] Exam Date: 06/07/2024 17:50 Report Date: 06/07/2024 19:32 At the request of: YECENIA MAURICE Procedure: XR foot LT min 3V EXAM: XR foot LT min 3V TECHNIQUE: AP, lateral and oblique views left foot HISTORY: infection COMPARISON: 04/27/2024 and MRI 05/15/2024 FINDINGS: Destruction of the tuft of the second distal interphalangeal noted. Small erosion of the medial aspect of the tuft of the third distal phalanx. Vascular calcification. XR/XR foot LT min 3V IMPRESSION: Osteomyelitis of the tuft of the second distal phalanx similar to recent examinations. Increased prominence of lucency of the medial aspect of the tuft and third distal phalanx suspicious for osteomyelitis. Electronically authenticated by: EZE SHEPPARD Date: 06/07/2024 19:32
--- NOTE | 2024-06-07 17:31 | ED.GENADUL1 ---
HPI HPI - General Adult General Chief complaint: Extremity Problem, Nontraumatic Stated complaint: INFECTION IN LOWER EXTREMITY Time Seen by Provider: 06/07/24 17:05 Mode of arrival: walk-in History of Present Illness HPI narrative: 54 year old female presents to the ED for a wound check. She developed a blister on the second toe of her left foot about one month ago. States the discoloration has spread to the third toe. Denies injury, weakness. She is diabetic. Reports completing antibiotics 4 days ago with no improvement. Related Data Home Medications ?Medication ?Instructions ?Recorded ?Confirmed albuterol sulfate 90 mcg/actuation 2 inh inhalation PRN PRN shortness 12/31/22 04/19/24 aerosol inhaler of breath or wheezing aspirin 81 mg capsule 81 mg PO DAILY 12/31/22 04/19/24 atorvastatin 40 mg tablet 40 mg PO DAILY 12/31/22 04/19/24 carvedilol 6.25 mg tablet 6.25 mg PO Q12H 12/31/22 04/19/24 esomeprazole magnesium 40 mg 40 mg PO Q24H 12/31/22 04/19/24 capsule,delayed release fluticasone propionate 110 3 puff inhalation PRN PRN 12/31/22 04/19/24 mcg/actuation HFA aerosol inhaler bronchospasm (Flovent HFA) glipizide 10 mg tablet 10 mg PO BID 12/31/22 04/19/24 hydrochlorothiazide 12.5 mg capsule 12.5 mg PO DAILY 12/31/22 04/19/24 insulin glargine U-300 conc 300 unit subcut 12/31/22 unit/mL (1.5 mL) subcutaneous pen (Bill Astudillo U-300 Insulin) insulin lispro 100 unit/mL subcut 12/31/22 subcutaneous pen losartan 25 mg tablet 25 mg PO DAILY 12/31/22 04/19/24 metformin 1,000 mg tablet 500 mg PO BID 12/31/22 04/19/24 famotidine 20 mg tablet mg 04/19/24 meloxicam 15 mg tablet mg 04/19/24 nitroglycerin 0.4 mg sublingual mg 04/19/24 tablet Previous Rx's ?Medication ?Instructions ?Recorded ibuprofen 600 mg tablet 600 mg PO TID PRN pain #30 tabs 09/04/23 amoxicillin 875 mg-potassium 1 tab PO BID #14 tabs 04/19/24 clavulanate 125 mg tablet amoxicillin 875 mg-potassium 1 tab PO Q12H #20 tabs 06/07/24 clavulanate 125 mg tablet sulfamethoxazole 800 1 tab PO BID #20 tabs 06/07/24 mg-trimethoprim 160 mg tablet (Bactrim DS) Allergies Allergy/AdvReac Type Severity Reaction Status Date / Time tomato Allergy Severe Nausea Verified 05/06/24 19:38 latex Allergy Intermediate itch Verified 05/06/24 19:38 insulin lispro Allergy Mild Rash Verified 05/06/24 19:38 codine AdvReac Intermediate Vomiting Uncoded 05/06/24 19:38 Opioid HPI Opioid Management Most Recent Opioid Data: Last Pain Scale 8 06/07/24 17:19 06/07/24 Review of Systems ROS Constitutional Denies: fever or chills Ears, nose, mouth, and throat Denies: neck pain Cardiovascular Denies: chest pain Respiratory Denies: shortness of breath Gastrointestinal Denies: abdominal pain, vomiting or diarrhea Musculoskeletal Reports: extremity pain; Denies: back pain or neck pain Integumentary/Breast Reports: redness and sores PFSH PFSH Social History Smoking status: Never smoker Little interest or pleasure in doing things: not at all Feeling down, depressed, or hopeless: not at all Exam Constitutional Vital Signs, click to edit/add: Last Vital Signs Temp 98.5 F 06/07/24 17:57 Pulse 96 H 06/07/24 17:57 Resp 93 H 06/07/24 17:57 BP 163/78 H 06/07/24 20:30 Pulse Ox 99 06/07/24 20:40 O2 Del Method Room Air 06/07/24 14:24 Common normals: no apparent distress and oriented x3 General appearance: cooperative Eye Common normals: conjunctivae normal and no scleral icterus Neck & C-Spine Common normals: supple Chest Chest: symmetrical chest wall rise Respiratory Common normals: normal respiratory effort Effort & inspection: able to speak in complete sentences and symmetric chest movement Cardio Common normals: regular rate Peripheral pulses: posterior tibial pulses present and dorsalis pedis pulses present Extremity Other: Open wounds to second and third digits of left foot. There are areas of black discoloration between the two toes with surrounding erythema. No drainage at this time. Pedal pulses palpable. Course Vital Signs Vital signs: Vital Signs Temperature 98.2 F 06/07/24 14:24 Pulse Rate 101 H 06/07/24 14:24 Respiratory Rate 18 06/07/24 14:24 Blood Pressure 144/99 H 06/07/24 14:24 Pulse Oximetry 98 06/07/24 14:24 Oxygen Delivery Method Room Air 06/07/24 14:24 Temperature 98.5 F 06/07/24 17:57 Pulse Rate 96 H 06/07/24 17:57 Respiratory Rate 93 H 06/07/24 17:57 Blood Pressure 163/78 H 06/07/24 20:30 Pulse Oximetry 99 06/07/24 20:40 Oxygen Delivery Method Room Air 06/07/24 14:24 Medical Decision Making MDM Narrative Medical decision making narrative: Initial lactic acid was 2.1, repeat 1.9. She was given IV antibiotics. I spoke with Dr. 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 The patient is able to follow up in the office this week. He requested prescriptions for Augmentin and Bactrim. Findings were discussed with the patient. A dressing was applied. Follow up as directed. XR: Osteomyelitis of the tuft of the second distal phalanx similar to recent examinations. Increased prominence of lucency of the medial aspect of the tuft and third distal phalanx suspicious for osteomyelitis. Medical Records Medical records reviewed: Yes I reviewed the patient's medical records Lab Data Lab results reviewed: Yes I reviewed the patient's lab results Labs: Lab Results 06/07/24 06/07/24 Range/Units 17:30 20:35 WBC 9.7 (4.0-11.0) 10^3/uL RBC 4.45 (4.20-5.40) 10^6/uL Hgb 13.4 (12.0-16.0) g/dL Hct 39.4 (36.0-48.0) % MCV 88.5 (81.0-99.0) fL MCH 30.1 (26.7-34.0) pg MCHC 34.0 (29.9-35.2) g/dL RDW 13.0 (11.0-15.0) % Plt Count 279 (150-450) 10^3/uL MPV 10.0 (9.5-13.5) fL Neut % (Auto) 64.7 (43.0-75.0) % Lymph % (Auto) 23.7 (20.5-60.0) % Hardeman % (Auto) 7.7 (1.7-12.0) % Eos % (Auto) 3.0 (0.9-7.0) % Baso % (Auto) 0.7 (0.2-2.0) % Neut # (Auto) 6.3 (1.4-6.5) 10^3/uL Lymph # (Auto) 2.3 (1.2-3.8) 10^3/uL Hardeman # (Auto) 0.8 (0.3-0.8) 10^3/uL Eos # (Auto) 0.3 (0.0-0.7) 10^3/uL Baso # (Auto) 0.1 (0.0-0.1) 10^3/uL Abs Immat Gran (auto) 0.02 (0.00-0.03) 10^3/uL Imm/Tot Granulo (auto) 0.2 (0.0-0.5) % ESR 41 H (<=30) mm/hr Sodium 142 (136-145) mmol/L Potassium 4.4 (3.5-5.1) mmol/L Chloride 104 (98-107) mmol/L Carbon Dioxide 27.1 (21.0-32.0) mmol/L Anion Gap 15.3 BUN 23.0 H (7.0-18.0) mg/dL Creatinine 0.86 (0.55-1.02) mg/dL Est GFR ( Amer) >60 (>=60 mL/min/1.73m^2) Est GFR (Non-Af Amer) >60 (>=60 mL/min/1.73m^2) BUN/Creatinine Ratio 26.7 Glucose 157 H (74-106) mg/dL Lactate 2.1 H 1.9 (0.4-2.0) mmol/L Calcium 9.4 (8.5-10.1) mg/dL Total Bilirubin 0.2 (0.2-1.0) mg/dL AST 16 (15-37) U/L ALT 39 (14-59) U/L Alkaline Phosphatase 115 (46-116) U/L C-Reactive Protein 1.46 H (<=0.50) mg/dL Total Protein 7.3 (6.4-8.2) g/dL Albumin 3.3 L (3.4-5.0) g/dL Globulin 4.0 g/dL Albumin/Globulin Ratio 0.8 Imaging Data XR: Attestation: I have reviewed the pertinent imaging results. Radiologist's impression: ITS Impressions Foot X-Ray 06/07/24 17:29 IMPRESSION: Osteomyelitis of the tuft of the second distal phalanx similar to recent examinations. Increased prominence of lucency of the medial aspect of the tuft and third distal phalanx suspicious for osteomyelitis. Electronically authenticated by: EZE SHEPPARD Date: 06/07/2024 19:32 Discharge Plan Discharge Chief Complaint: Extremity Problem, Nontraumatic Clinical Impression: Osteomyelitis of second toe of left foot, Osteomyelitis of third toe of left foot Patient Disposition: Home, Self-Care Time of Disposition Decision: 21:09 Condition: Good Mode of Transportation: Private Vehicle Prescriptions / Home Meds: New amoxicillin-pot clavulanate 875-125 mg tablet 1 tab PO Q12H Qty: 20 0RF sulfamethoxazole-trimethoprim [Bactrim DS] 800-160 mg tablet 1 tab PO BID Qty: 20 0RF No Action albuterol sulfate 90 mcg/actuation HFA aerosol inhaler 2 inh INHALATION PRN PRN (Reason: shortness of breath or wheezing) insulin lispro 100 unit/mL insulin pen SUBCUT insulin glargine U-300 conc [Toujeo SoloStar U-300 Insulin] 300 unit/mL (1.5 mL) insulin pen SUBCUT aspirin 81 mg capsule 81 mg PO DAILY atorvastatin 40 mg tablet 40 mg PO DAILY losartan 25 mg tablet 25 mg PO DAILY fluticasone propionate [Flovent HFA] 110 mcg/actuation HFA aerosol inhaler 3 puff INHALATION PRN PRN (Reason: bronchospasm) esomeprazole magnesium 40 mg capsule,delayed release(DR/EC) 40 mg PO Q24H glipizide 10 mg tablet 10 mg PO BID hydrochlorothiazide 12.5 mg capsule 12.5 mg PO DAILY metformin 1,000 mg tablet 500 mg PO BID carvedilol 6.25 mg tablet 6.25 mg PO Q12H ibuprofen 600 mg tablet 600 mg PO TID PRN (Reason: pain) Qty: 30 0RF meloxicam 15 mg tablet famotidine 20 mg tablet nitroglycerin 0.4 mg tablet, sublingual amoxicillin-pot clavulanate 875-125 mg tablet 1 tab PO BID Qty: 14 0RF Print Language: Turkish Instructions: Osteomyelitis (ED) Additional Instructions: Return to the ER for worsening symptoms. Referrals: Shayy Ly MD [Primary Care Provider] - 1 week Sadi Bruce DPM [Physician] - 1 week
[2024-06-07 17:37] LABS: Basophils Absolute Auto 0.1 10^3/uL (0.0-0.1); Basophils Percent Auto 0.7 % (0.2-2.0); Eosinophils Absolute Auto 0.3 10^3/uL (0.0-0.7); Hematocrit 39.4 % (36.0-48.0); Hemoglobin 13.4 g/dL (12.0-16.0); Immature Granulocytes Abs Auto 0.02 10^3/uL (0.00-0.03); Immature Granulocytes Pct Auto 0.2 % (0.0-0.5); Lymphocytes Absolute Auto 2.3 10^3/uL (1.2-3.8); Lymphocytes Percent Auto 23.7 % (20.5-60.0); Mean Corpuscular Hemoglobin 30.1 pg (26.7-34.0); Mean Corpuscular Volume 88.5 fL (81.0-99.0); Monocytes Absolute Auto 0.8 10^3/uL (0.3-0.8); Monocytes Percent Auto 7.7 % (1.7-12.0); Neutrophils Absolute Auto 6.3 10^3/uL (1.4-6.5); Neutrophils Percent Auto 64.7 % (43.0-75.0); Platelet Count 279 10^3/uL (150-450); Red Blood Count 4.45 10^6/uL (4.20-5.40); White Blood Count 9.7 10^3/uL (4.0-11.0)
[2024-06-07] MEDS: PIPERACILLIN SODIUM/TAZOBACTAM 4.5 GM in 0.9 % SODIUM CHLORIDE 50 ML IV (17:46)
[2024-06-07 17:53] LABS: Alanine Aminotransferase 39 U/L (14-59); Albumin Globulin Ratio 0.8; Albumin Level 3.3 g/dL (3.4-5.0); Alkaline Phosphatase 115 U/L (46-116); Anion Gap 15.3; Aspartate Amino Transferase 16 U/L (15-37); BUN Creatinine Ratio 26.7; Bilirubin Total 0.2 mg/dL (0.2-1.0); C Reactive Protein 1.46 mg/dL (<=0.50); Calcium 9.4 mg/dL (8.5-10.1); Carbon Dioxide 27.1 mmol/L (21.0-32.0); Chloride 104 mmol/L (98-107); Erythrocyte Sedimentation Rate 41 mm/hr (<=30); Estimated GFR (African America >60 (>=60 mL/min/1.73m^2); Estimated GFR (Non-African Ame >60 (>=60 mL/min/1.73m^2); Glucose 157 mg/dL (74-106); Potassium 4.4 mmol/L (3.5-5.1); Sodium 142 mmol/L (136-145); Total Protein 7.3 g/dL (6.4-8.2)
[2024-06-07 18:13] LABS: Lactate/Lactic Acid 2.1 mmol/L (0.4-2.0)
[2024-06-07] MEDS: VANCOMYCIN HCL 2,000 MG in 0.9 % SODIUM CHLORIDE 500 ML 250 MG IV (18:29)
[2024-06-07] MEDS: 0.9 % SODIUM CHLORIDE 1,000 ML 1000 ML IV (18:29)
[2024-06-07 21:02] LABS: Lactate/Lactic Acid 1.9 mmol/L (0.4-2.0)
[2024-06-07] MEDS: OXYCODONE HCL/ACETAMINOPHEN 5MG/325MG 2 TAB PO (21:42)
--- NOTE | 2024-06-07 21:57 | PC.NURSE ---
i gave this patient verbal and paper discharge orders along with 2 e-scripts and this patient voices yes to understanding these. at time of discharge this patient voices no concerns and shows no signs of distress
== END 2024-06-07 21:58 | disposition home or self-care (01) ==
PROVIDERS: Nurse Practitioner Family; Emergency Provider Emergency Medicine; PCP Family Medicine
DX: E11.69 Type 2 diabetes mellitus with other specified complication (principal); M86.8X7 Other osteomyelitis, ankle and foot; Z79.4 Long term (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 of insulin
CPT/HCPCS: 36415; 73630; 80053; 83605; 85025; 85652; 86140; 96365; 96366; 96368; 99285; J2543; J3370

== ENCOUNTER 2024-06-12 13:05 | Outpatient (OUT) | payer MEDICARE, MEDICAID, SELFPAY ==
--- OUTSIDE RECORDS SUMMARY | 2024-06-12 13:24 | XMS_ITS | CCD ---
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 Phone PHYSICIAN, DEFAULT Unavailable Unavailable [...] MD Shayy Dela Cruz Primary Care Provider [phone] MD Shayy Dela Cruz Attending Provider [phone] MD Shayy Dela Cruz Primary Care Provider MD Shayy Dela Cruz Attending Provider Sam, ASSISTANT CENTER MANAGER Cathie C Attending Provider Scally, Cathie C Admitting Unavailable Sam, Cathie C Attending Unavailable Shayy Dela Cruz Admitting Unavailable Shayy Dela Cruz Primary Care Unavailable Shayy Dela Cruz Attending Unavailable Brittani Collier Admitting Unavailable Brittani Collier Attending Unavailable Shayy Dela Cruz Primary Care Unavailable Allergies Allergy Classification Reported Allergen(s) Allergy Type Date of Onset Reaction(s) Facility (1 source) codeine Drug Allergy 9 [facility] Repository (19 sources) Latex; Translations: [LATEX] Drug allergy (disorder) 9 sores on skin [facility] Repository (20 sources) Codeine; Translations: [CODEINE] Drug Allergy 0 nausea [facility] Repository (18 sources) Latex Drug allergy sores on skin [employer] [facility] Other (1 source) Codeine Drug Allergy [facility] Repository (1 source) atorvastatin; Translations: [ATORVASTATIN] Drug Allergy 3 [facility] Repository (8 sources) cat dander Allergy to substance 4 Sneezing, Itching [facility] (8 sources) dog dander Allergy to substance 4 Sneezing, Itching [facility] (8 sources) ozempic Propensity to adverse reactions [address] [facility] (1 source) Codeine Drug Allergy [address] [facility] Repository (1 source) Latex Drug allergy (disorder) [address] [facility] Repository Medications Current Medications Medication Drug [...] May, Active Blood-Glucose Meter,Continuo us ([employer]ex[employer]) misc (6 sources) Start: 12-13-2023 Blood-Glucose Meter,Continuous ([employer]ex[employer]) misc Active 0 .Route December 12, 2023 11:00pm As directed Start: 12-13-2023 Blood-Glucose Meter,Continuous (Dex[employer]) misc Active 0 .Route December 13, 2023 12:00am As directed Start: 12-13-2023 Blood-Glucose Meter,Continuous (Dex[employer]) misc Active 0 .ROUTE December 13, 2023 [...] Orally Once a day Active [employer] - (4 sources) Start: 06-03-19 24 Dexcom [employer] - as directed as directed 4 x [...] Jesus Lucas ( ) [employer] [place] - (3 sources) Start: 06-06-2023 [employer] [place] - as directed invitro 4 times daily [...] Drug Class(es) Dates Sig (Normalized) Sig (Original) [id number] 200 actuat albuterol 0.09 mg/actuat metered dose [...] Jun, Not-Taking/PRN Blood-Glucose Meter,Continuous ([employer] [place]) misc (13 sources) Start: 07-28-2023 End: 12-13-2023 Blood-Glucose Meter,Continuous ([employer] [place]) misc Discontinued EACH .ROUTE .MEDSUPPLY July 27, 2023 11:00pm December 13, 2023 12:09pm As directed Start: 07-28-2023 End: 12-13-2023 Blood-Glucose Meter,Continuo us ([employer] [place]) misc Discontinued EACH .ROUTE .MEDSUPPLY July 28, 2023 12:00am December 13, 2023 1:09pm As directed Start: 07-28-2023 Blood-Glucose Meter,Continuous ([employer] [place]) misc Active EACH .ROUTE .MEDSUPPLY July 28, [...] angina pectoris; Translations: [Atherosclerotic heart disease of [place] coronary artery without angina pectoris] Onset: 11-23-2022 [...] Onset: 11-09-2021 Chronic Other aftercare (17 sources) detention (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 of insulin; Translations: [Long-term (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 of insulin] Onset: 04-08-2022 Episodic Other aftercare (20 sources) Long-term current use of insulin; Translations: [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] 07-28-2023 Episodic Other [...] Onset: 04-08-2022 Episodic Other aftercare (1 source) 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 Basophils/100 WBC Auto (Bld) on 05-16-2024 Basophils/100 WBC (Bld) Automated basophil % 0.2-2.[address] [facility] Eosinophils/100 WBC Auto (Bl d)on 05-16-2024 Eosinophils/100 WBC (Bld) Automated eosinophil % 0.9-7.[address] [facility] Erythrocyte distribution wid th Auto (RBC) [Ratio]on 05-16-2024 Erythrocyte distribution width (RBC) [Ratio] Erythrocyte distribution width [Ratio] by Automated count 11.0-15.[address] [facility] Estimated glomerular filtrat ion rate (GFR) non- Americanon 05-16-2024 GFR/1.73 sq M.predicted among non-blacks MDRD (S/P/Bld) [Vol rate/Area] Estimated glomerular filtration rate (GFR) non- Low >=60 mL/min/1.73m [address] [facility] Hematocrit Auto (Bld) [Volum e fraction]on 05-16-2024 Hematocrit (Bld) [Volume fraction] Hematocrit [Volume Fraction] of Blood by Automated count 36.0-48.[address] [facility] Hemoglobin [Mass/volume] in Bloodon 05-16-2024 Hemoglobin (Bld) [Mass/Vol] Hemoglobin [Mass/volume] in Blood 12.0-16.[address] [facility] Laboratory - Chemistry and C hemistry - challengeon 05-16-2024 Calcium [Mass/Vol] 9.1 mg/dL 8.5-10.1 [facility] Chloride [Moles/Vol] 104 mmol/L 98-[address] [facility] CO2 [Moles/Vol] 30.6 mmol/L 21.0-32.0 [facility] Creatinine [Mass/Vol] 1.01 mg/dL 0.55-1.[address] [facility] GFR/1.73 sq M.predicted MDRD (S/P/Bld) [Vol rate/Area] mL/min/{1.73_m2} >=60 mL/min/1.73m [address] [facility] Glucose [Mass/Vol] 206 mg/dL High 74-106 [facility] Potassium [Moles/Vol] 5.1 mmol/L 3.5-5.[address] [facility] Sodium [Moles/Vol] 141 mmol/L 136-145 [facility] Urea nitrogen [Mass/Vol] 12.0 mg/dL 7.0-18.[address] [facility] Urea nitrogen/Creatinine [Mass ratio] 11.9 mg/mg [facility] Laboratory - Hematology and Cell countson 05-16-2024 ESR (Bld) [Velocity] 28 mm/h <=[address] [facility] Immature granulocytes/100 WBC (Bld) 0.3 % 0.0-0.[address] [facility] Leukocytes [#/volume] correc alma delia for nucleated erythrocytes in Blood by Automated counon 05-16-2024 WBC corrected for nucl RBC Auto (Bld) [#/Vol] Leukocytes [#/volume] corrected for nucleated erythrocytes in Blood by Automated coun 4.0-11.[address] [facility] Lymphocytes Auto (Bld) [#/Vo l]on 05-16-2024 Lymphocytes (Bld) [#/Vol] Lymphocytes [#/volume] in Blood by Automated count 1.2-3.[address] [facility] Lymphocytes/100 WBC Auto (Bl d)on 05-16-2024 Lymphocytes/100 WBC (Bld) Lymphocytes/100 leukocytes in Blood by Automated count 20.5-60.[address] [facility] MCH Auto (RBC) [Entitic mass ]on 05-16-2024 MCH (RBC) [Entitic mass] MCH [Entitic mass] by Automated count 26.7-34.[address] [facility] MCHC Auto (RBC) [Mass/Vol]on 05-16-2024 MCHC (RBC) [Mass/Vol] MCHC [Mass/volume] by Automated count 29.9-35.[address] [facility] MCV Auto (RBC) [Entitic vol] on 05-16-2024 MCV (RBC) [Entitic vol] MCV [Entitic volume] by Automated count 81.0-99.[address] [facility] Monocytes Auto (Bld) [#/Vol] on 05-16-2024 Monocytes (Bld) [#/Vol] Automated blood monocyte count 0.3-0.[address] [facility] Monocytes/100 WBC Auto (Bld) on 05-16-2024 Monocytes/100 WBC (Bld) Automated monocyte % 1.7-12.[address] [facility] Neutrophils Auto (Bld) [#/Vo l]on 05-16-2024 Neutrophils (Bld) [#/Vol] Neutrophils [#/volume] in Blood by Automated count 1.4-6.[address] [facility] Neutrophils/100 WBC Auto (Bl d)on 05-16-2024 Neutrophils/100 WBC (Bld) Automated neutrophil % 43.0-75.[address] [facility] No Panel Informationon 05-16 C-Reactive Protein, Quantitative 1.26 mg/dL High <=0.[address] [facility] Eosinophils # (Auto) 0.3 10 3/uL 0.0-0.[address] [facility] Immature Granulocyte # (Auto) 0.02 10 3/uL 0.00-0.[address] [facility] Platelet mean volume Auto (B ld) [Entitic vol]on 05-16-2024 Platelet mean volume (Bld) [Entitic vol] Platelet mean volume [Entitic volume] in Blood by Automated count 9.5-13.[address] [facility] Platelets Auto (Bld) [#/Vol] on 05-16-2024 Platelets (Bld) [#/Vol] Platelets [#/volume] in Blood by Automated count 150-[address] [facility] RBC Auto (Bld) [#/Vol]on RBC (Bld) [#/Vol] Erythrocytes [#/volu me] in Blood by Automated count 4.20-5.[address] [facility] Serum or plasma anion gap de terminationon 05-16-2024 Anion gap [Moles/Vol] Serum or plasma anion gap determination [facility] Creatinine [Mass/volume] in UrineOrdered By: Cathie Vargas on 02-23-2024 Creatinine (U) [Mass/Vol] 28.00 mg/dL [facility] Comment on above: No reference range e stablished MicroAlb Creat Ratio,Uon Creatinine, Urine (Random) 28.00 mg/dL Normal [facility] Comment on above: Result Comment: No r eference range established Performed By: #### U RMACRERAT #### [facility] [address] Microalbumin/Creati nine Ratio Not performed Normal 0.0-30.0 [facility] Comment on above: Result Comment: PERF ORMED BY: [place] [address] PATHOLOGIST WALLPAPER PRINTER HELPER RUBINA RICCI M.D. Performed By: #### U RMACRERAT #### [facility] [address] [place] [address] [place] Microalbumin [Mass/volume] i n UrineOrdered By: Cathie Vargas on 02-23-2024 Albumin DL <= 20 mg/L (U) [Mass/Vol] mg/dL Normal 0.0-1.[address] [facility] Comment on above: Performed By: #### U RMACRERAT #### [facility] [address] Urine microalbumin/creatinin e mass ratioOrdered By: Cathie Vargas on 02-23-2024 Albumin/Creatinine DL <= 20 mg/L (U) [Mass ratio] TNP [facility] Comment on above: Test not performed HbA1c HPLC (Bld) [Mass fract ion]on 12-13-2023 HbA1c (Bld) [Mass fraction] 9.9 % [facility] No Panel Informationon 12-12 Bedside Glucose [address] [facility] No Panel Informationon 09-28 Bedside Glucose [address] [facility] HbA1c HPLC (Bld) [Mass fract ion]on 07-28-2023 HbA1c (Bld) [Mass fraction] 10.3 % [facility] No Panel Informationon 07-27 Bedside Glucose [address] [facility] Basophils Auto (Bld) [#/Vol] on 07-12-2023 Basophils (Bld) [#/Vol] 0.0 10 3/uL 0.0-0.[address] [facility] Basophils/100 WBC Auto (Bld) on 07-12-2023 Basophils/100 WBC (Bld) 0.5 % 0.2-2.[address] [facility] Eosinophils/100 WBC Auto (Bl d)on 07-12-2023 Eosinophils/100 WBC (Bld) 1.5 % 0.9-7.[address] [facility] Erythrocyte distribution wid th Auto (RBC) [Ratio]on 07-12-2023 Erythrocyte distribution width (RBC) [Ratio] 12.7 % 11.0-15.[address] [facility] Estimated glomerular filtrat ion rate (GFR) non- Americanon 07-12-2023 GFR/1.73 sq M.predicted among non-blacks MDRD (S/P/Bld) [Vol rate/Area] mL/min/{1.73_m2} >=[address] [facility] Hematocrit Auto (Bld) [Volum e fraction]on 07-12-2023 Hematocrit (Bld) [Volume fraction] 42.8 % 36.0-48.[address] [facility] Hemoglobin [Mass/volume] in Bloodon 07-12-2023 Hemoglobin (Bld) [Mass/Vol] 14.3 g/dL 12.0-16.[address] [facility] Laboratory - Chemistry and C hemistry - challengeon 07-12-2023 Calcium [Mass/Vol] 9.1 mg/dL 8.5-10.1 [facility] Chloride [Moles/Vol] 100 mmol/L 98-[address] [facility] CO2 [Moles/Vol] 26.1 mmol/L 21.0-32.0 [facility] Creatinine [Mass/Vol] 0.78 mg/dL 0.55-1.[address] [facility] GFR/1.73 sq M.predicted MDRD (S/P/Bld) [Vol rate/Area] mL/min/{1.73_m2} >=[address] [facility] Glucose [Mass/Vol] 215 mg/dL 74-106 [facility] Potassium [Moles/Vol] 4.0 mmol/L 3.5-5.[address] [facility] Sodium [Moles/Vol] 137 mmol/L 136-145 [facility] Urea nitrogen [Mass/Vol] 12.0 mg/dL 7.0-18.[address] [facility] Urea nitrogen/Creatinine [Mass ratio] 15.4 mg/mg [facility] Laboratory - Hematology and Cell countson 07-12-2023 Immature granulocytes/100 WBC (Bld) 0.1 % 0.0-0.[address] [facility] Leukocytes [#/volume] correc alma delia for nucleated erythrocytes in Blood by Automated counon 07-12-2023 WBC corrected for nucl RBC Auto (Bld) [#/Vol] 7.8 10 3/uL 4.0-11.[address] [facility] Lymphocytes Auto (Bld) [#/Vo l]on 07-12-2023 Lymphocytes (Bld) [#/Vol] 2.7 10 3/uL 1.2-3.[address] [facility] Lymphocytes/100 WBC Auto (Bl d)on 07-12-2023 Lymphocytes/100 WBC (Bld) 34.1 % 20.5-60.[address] [facility] MCH Auto (RBC) [Entitic mass ]on 07-12-2023 MCH (RBC) [Entitic mass] 29.2 pg 26.7-34.[address] [facility] MCHC Auto (RBC) [Mass/Vol]on 07-12-2023 MCHC (RBC) [Mass/Vol] 33.4 g/dL 29.9-35.[address] [facility] MCV Auto (RBC) [Entitic vol] on 07-12-2023 MCV (RBC) [Entitic vol] 87.5 fL 81.0-99.[address] [facility] Monocytes Auto (Bld) [#/Vol] on 07-12-2023 Monocytes (Bld) [#/Vol] 0.5 10 3/uL 0.3-0.[address] [facility] Monocytes/100 WBC Auto (Bld) on 07-12-2023 Monocytes/100 WBC (Bld) 6.4 % 1.7-12.[address] [facility] Neutrophils Auto (Bld) [#/Vo l]on 07-12-2023 Neutrophils (Bld) [#/Vol] 4.5 10 3/uL 1.4-6.[address] [facility] Neutrophils/100 WBC Auto (Bl d)on 07-12-2023 Neutrophils/100 WBC (Bld) 57.4 % 43.0-75.[address] [facility] No Panel Informationon 07-11 Eosinophils # (Auto) 0.1 10 3/uL 0.0-0.[address] [facility] Immature Granulocyte # (Auto) 0.01 10 3/uL 0.00-0.[address] [facility] Platelet mean volume Auto (B ld) [Entitic vol]on 07-12-2023 Platelet mean volume (Bld) [Entitic vol] 10.9 fL 9.5-13.[address] [facility] Platelets Auto (Bld) [#/Vol] on 07-12-2023 Platelets (Bld) [#/Vol] 259 10 3/uL 150-[address] [facility] RBC Auto (Bld) [#/Vol]on RBC (Bld) [#/Vol] 4.89 10 6/uL 4.20-5.40 [facility] Serum or plasma anion gap de terminationon 07-12-2023 Anion gap [Moles/Vol] 14.9 mmol/L [facility] Glucose - FINGER STICKon Glucose [Mass/Vol] 360 mg/dL [employer] [facility] Other Office Visiton 12-13-2022 Follow-up visit [id number] Arlette Ramos 1970 F Date Provider Department Center 12/13/2022 3848-MARQUES MOROCHO CARD [facility] No family history on file Level of Service:71606 [place] OFFICE/OUTPATIENT ESTABLISHED LOW MDM 20-29 MIN Reason for Visit and Comments: Follow-up [012237] - 4 mo follow up Normal [facility] CBC AUTO DIFFon 08-27-2022 BASO # 0.0 103/ul Normal 0.0-0.1 [facility] Comment on above: Performed By: #### C BC #### [facility] [address] [place] [address] Dr. Sarah Church Basophils/100 WBC (Bld) 0.5 % Normal 0.2-2.0 [facility] Comment on above: Performed By: #### C BC #### [facility] [address] [place] [address] Dr. Sarah Church EO # 0.2 103/ul Normal 0.0-0.7 [facility] Comment on above: Performed By: #### C BC #### [facility] [address] [place] [address] Dr. Sarah Church Eosinophils/100 WBC (Bld) 2.2 % Normal 0.9-7.0 [facility] Comment on above: Performed By: #### C BC #### [facility] [address] [place] [address] Dr. Sarah Church Erythrocyte distribution width (RBC) [Ratio] 12.5 % Normal 11.0-15.0 [facility] Comment on above: Performed By: #### C BC #### [facility] [address] [place] [address] Dr. Sarah Church Hematocrit (Bld) [Volume fraction] 44.1 % Normal 36.0-48.0 [facility] Comment on above: Performed By: #### C BC #### [facility] [address] [place] [address] Dr. Sarah Church Hemoglobin (Bld) [Mass/Vol] 15.1 g/dL Normal 12.0-16.0 [facility] Comment on above: Performed By: #### C BC #### [facility] [address] [place] [address] Dr. Sarah Church IG # 0.02 10e3/ul Normal 0.00-0.03 [facility] Comment on above: Performed By: #### C BC #### [facility] [address] [place] [address] Dr. Sarah Church IG % 0.2 % Normal 0.0-0.5 [facility] Comment on above: Performed By: #### C BC #### [facility] [address] [place] [address] Dr. Sarah Church LYMPH # 2.9 103/ul Normal 1.2-3.8 [facility] Comment on above: Performed By: #### C BC #### [facility] [address] [place] [address] Dr. Sarah Church Lymphocytes/100 WBC (Bld) 33.4 % Normal 20.5-60.0 [facility] Comment on above: Performed By: #### C BC #### [facility] [address] [place] [address] Dr. Sarah Church MANUAL DIFF REQ NO Normal [facility] Comment on above: Performed By: #### C BC #### [facility] [address] [place] [address] Dr. Sarah Church MCH (RBC) [Entitic mass] 29.1 pg Normal 26.7-34.0 [facility] Comment on above: Performed By: #### C BC #### [facility] [address] [place] [address] Dr. Sarah Church MCHC (RBC) [Mass/Vol] 34.2 g/dL Normal 29.9-35.2 [facility] Comment on above: Performed By: #### C BC #### [facility] [address] [place] [address] Dr. Sarah Church MCV (RBC) [Entitic vol] 85.0 fL Normal 81.0-99.0 [facility] Comment on above: Performed By: #### C BC #### [facility] [address] [place] [address] Dr. Sarah Church MONO # 0.6 103/ul Normal 0.3-0.8 [facility] Comment on above: Performed By: #### C BC #### [facility] [address] [place] [address] Dr. Sarah Church Monocytes/100 WBC (Bld) 6.8 % Normal 1.7-12.0 [facility] Comment on above: Performed By: #### C BC #### [facility] [address] [place] [address] Dr. Sarah Church NEUT # 4.9 103/ul Normal 1.4-6.5 [facility] Comment on above: Performed By: #### C BC #### [facility] [address] [place] [address] Dr. Sarah Church Neutrophils/100 WBC (Bld) 56.9 % Normal 43.0-75.0 [facility] Comment on above: Performed By: #### C BC #### [facility] [address] [place] [address] Dr. Sarah Church Platelet mean volume (Bld) [Entitic vol] 10.8 fL Normal 9.5-13.5 [facility] Comment on above: Performed By: #### C BC #### [facility] [address] [place] [address] Dr. Sarah Church PLT 276 103/ul Normal 150-450 [facility] Comment on above: Performed By: #### C BC #### [facility] [address] [address] [address] Sarah Church RBC 5.19 106/ul Normal 4.20-5.40 [facility] Comment on above: Performed By: #### C BC #### [facility] [address] [address] [address] Sarah Church WBC 8.6 103/ul Normal 4.0-11.0 [facility] Comment on above: Performed By: #### C BC #### [facility] [address] [address] [address] Sarah Church LIPID PROFILEon 08-27-2022 CHOL-HDL RATIO NORM SEE BELOW Normal [facility] Comment on above: Result Comment: 3.3 - 4.4 LOW RISK 4.4 - 7.1 AVERAGE RISK 7.1 - 11.0 MODERATE RISK >11.0 HIGH RISK Performed By: #### L IPID, CMP #### [facility] [address] [place] [address] Dr. Sarah Church Cholesterol [Mass/Vol] 110 mg/dL Normal <=200 [facility] Comment on above: Performed By: #### L IPID, CMP #### [facility] [address] [place] [address] Dr. Sarah Church Cholesterol in HDL [Mass/Vol] 33 mg/dL Critically low 40-60 [facility] Comment on above: Performed By: #### L IPID, CMP #### [facility] [address] [address] [address] Sarah Church Cholesterol in LDL [Mass/Vol] 58.0 mg/dL Normal [facility] Comment on above: Performed By: #### L IPID, CMP #### [facility] [address] [place] [address] Dr. Sarah Church Cholesterol.total/C holesterol in HDL [Mass ratio] 3.3 {ratio} Normal [facility] Comment on above: Performed By: #### L IPID, CMP #### [facility] [address] [place] [address] Dr. Sarah Church HDL NORMAL > or = 60 mg/dl - LO W CARDIOVASCULAR RISK <40 mg/dl - HIGH CARDIOVASCULAR RISK Normal [facility] Comment on above: Performed By: #### L IPID, CMP #### [facility] [address] [address] [address] Sarah Church LDL CALC NORMAL SEE BELOW Normal [facility] Comment on above: Result Comment: <100 mg/dl OPTIMAL 100 - 129 mg/dl NEAR OR ABOVE OPTIMAL 130 - 159 mg/dl BORDERLINE HIGH 160 - 189 mg/dl HIGH >190 mg/dl VERY HIGH Performed By: #### L IPID, CMP #### [facility] [address] [address] [address] Sarah Church Triglyceride [Mass/Vol] 95 mg/dL Normal <=150 [facility] Comment on above: Performed By: #### L IPID, CMP #### [facility] [address] [place] [address] Dr. Sarah Church VLDL CALC 19.0 mg/dL Normal [facility] Comment on above: Performed By: #### L IPID, CMP #### [facility] [address] [address] [address] Sarah Church PROF 14(COMP METB)on 023 Albumin [Mass/Vol] 3.3 g/dL Critically low 3.4-5.0 [facility] Comment on above: Performed By: #### L IPID, CMP #### [facility] [address] [place] [address] Dr. Sarah Church Albumin/Globulin [Mass ratio] 0.8 {ratio} Normal [facility] Comment on above: Performed By: #### L IPID, CMP #### [facility] [address] [address] [address] Sarah Church ALP [Catalytic activity/Vol] 100 U/L Normal 46-116 [facility] Comment on above: Performed By: #### L IPID, CMP #### [facility] [address] [address] [address] Sarah Church ALT [Catalytic activity/Vol] 74 U/L Critically high 14-59 [facility] Comment on above: Performed By: #### L IPID, CMP #### [facility] [address] [address] [address] Sarah Church Anion gap [Moles/Vol] 13.2 mmol/L Normal [facility] Comment on above: Performed By: #### L IPID, CMP #### [facility] [address] [place] [address] Dr. Sarah Church AST [Catalytic activity/Vol] 42 U/L Critically high 15-37 [facility] Comment on above: Performed By: #### L IPID, CMP #### [facility] [address] [place] [address] Dr. Sarah Church Bilirubin [Mass/Vol] 0.4 mg/dL Normal 0.2-1.0 [facility] Comment on above: Performed By: #### L IPID, CMP #### [facility] [address] [place] [address] Dr. Sarah Church Calcium [Mass/Vol] 9.2 mg/dL Normal 8.5-10.1 [facility] Comment on above: Performed By: #### L IPID, CMP #### [facility] [address] [place] [address] Dr. Sarah Church Chloride [Moles/Vol] 99 mmol/L Normal 98-107 [facility] Comment on above: Performed By: #### L IPID, CMP #### [facility] [address] [place] [address] Dr. Sarah Church CO2 [Moles/Vol] 30.4 mmol/L Normal 21.0-32.0 [facility] Comment on above: Performed By: #### L IPID, CMP #### [facility] [address] [place] [address] Dr. Sarah Church Creatinine [Mass/Vol] 0.78 mg/dL Normal 0.55-1.02 [facility] Comment on above: Performed By: #### L IPID, CMP #### [facility] [address] [place] [address] Dr. Sarah Church EGFR-AF JORDANIAN >60 Normal >=60 [facility] Comment on above: Performed By: #### L IPID, CMP #### [facility] [address] [place] [address] Dr. Sarah Church EGFR-NON AF JORDANIAN >60 Normal >=60 [facility] Comment on above: Performed By: #### L IPID, CMP #### [facility] [address] [place] [address] Dr. Sarah Church Globulin (S) [Mass/Vol] 4.0 g/dL Normal [facility] Comment on above: Performed By: #### L IPID, CMP #### [facility] [address] [place] [address] Dr. Sarah Church Glucose [Mass/Vol] 255 mg/dL Critically high 74-106 [facility] Comment on above: Performed By: #### L IPID, CMP #### [facility] [address] [place] [address] Dr. Sarah Church Potassium [Moles/Vol] 3.6 mmol/L Normal 3.5-5.1 [facility] Comment on above: Performed By: #### L IPID, CMP #### [facility] [address] [place] [address] Dr. Sarah Church Protein [Mass/Vol] 7.3 g/dL Normal 6.4-8.2 [facility] Comment on above: Performed By: #### L IPID, CMP #### [facility] [address] [place] [address] Dr. Sarah Church Sodium [Moles/Vol] 139 mmol/L Normal 136-145 [facility] Comment on above: Performed By: #### L IPID, CMP #### [facility] [address] [place] [address] Dr. Sarah Church Urea nitrogen [Mass/Vol] 8.0 mg/dL Normal 7.0-18.0 [facility] Comment on above: Performed By: #### L IPID, CMP #### [facility] [address] [place] [address] Dr. Sarah Church Urea nitrogen/Creatinine [Mass ratio] 10.3 mg/mg Normal [facility] Comment on above: Performed By: #### L IPID, [facility] #### [facility] [address] [address] [address] Sarah Church 37on 08-10-2022 37 -Start hydrochlorothiazide 12.5 mg in the morning -Check labs 1 week after starting new medication -Take blood pressure to appointment with Dr. Dela Cruz for correlation Normal [facility] Office Visiton 08-10-2022 Follow-up visit [id number] Arlette Ramos 1970 F Date Provider Department Center 08/10/2022 [id number]-HUYWSAPKECHRISTEN BENITES [facility] No family history on file Level of Service:14597 [place] OFFICE/OUTPATIENT ESTABLISHED MOD MDM 30-39 MIN Reason for Visit and Comments: Coronary Artery Disease [187] Hypertension [190490] Normal [facility] MG MAMM SCREEN 3D ROB CADon 07-20-2022 MG MAMM SCREEN 3D ROB CAD Patient: ZOILA RAMOS Exam Date: 07/20/2022 : 1970 Gender:F Ordering : DR SHAYY DELA CRUZ M.D. Admission #: [id number] Family : Order #: [id number] CLICK HERE TO VIEW EXAM RADIOLOGY REPORT PROCEDURE: MAMMOGRAM SCREENING 3D BILATERAL CAD COMPARISON: MAMMO ROB SCREEN W CAD DIG, 05/16/2012. INDICATIONS: Screening mammography Calculator Name NCI Breast Cancer Risk Assessment Tool 5 Year Breast Cancer Risk 1.20% Lifetime Breast Cancer Risk 10.80% Personal Breast Cancer No Personal Ovarian Cancer No Treatments None Family Cancers None LOCATION: [facility] BREAST COMPOSITION: Almost entirely fatty. FINDINGS: [...] Lan M.D. on 07/21/2022 at 08:24 Normal [facility] PROF CHEM 8 (BAS METB)on Anion gap [Moles/Vol] 14.5 mmol/L Normal [facility] Comment on above: Performed By: #### B MP #### [facility] [address] [address] [address] Sarah Church Calcium [Mass/Vol] 9.8 mg/dL Normal 8.5-10.1 [facility] Comment on above: Performed By: #### B MP #### [facility] [address] [address] [address] Sarah Church Chloride [Moles/Vol] 99 mmol/L Normal 98-107 [facility] Comment on above: Performed By: #### B MP #### [facility] [address] [place] [address] Dr. Sarah Church CO2 [Moles/Vol] 27.2 mmol/L Normal 21.0-32.0 [facility] Comment on above: Performed By: #### B MP #### [facility] [address] [address] [address] Sarah Church Creatinine [Mass/Vol] 0.80 mg/dL Normal 0.55-1.02 [facility] Comment on above: Performed By: #### B MP #### [facility] [address] [place] [address] Dr. Sarah Church EGFR-AF JORDANIAN >60 Normal >=60 [facility] Comment on above: Performed By: #### B MP #### [facility] [address] [address] [address] Sarah Church EGFR-NON AF JORDANIAN >60 Normal >=60 [facility] Comment on above: Performed By: #### B MP #### [facility] [address] [address] [address] Sarah Church Glucose [Mass/Vol] 458 mg/dL Critically high 74-106 [facility] Comment on above: Performed By: #### B MP #### [facility] [address] [address] [address] Sarah Church Potassium [Moles/Vol] 4.7 mmol/L Normal 3.5-5.1 [facility] Comment on above: Performed By: #### B MP #### [facility] [address] [address] [address] Sarah Church Sodium [Moles/Vol] 136 mmol/L Normal 136-145 [facility] Comment on above: Performed By: #### B MP #### [facility] [address] [address] [address] Sarah Church Urea nitrogen [Mass/Vol] 15.0 mg/dL Normal 7.0-18.0 [facility] Comment on above: Performed By: #### B MP #### [facility] [address] [address] [address] Sarah Church Urea nitrogen/Creatinine [Mass ratio] 18.8 mg/mg Normal [facility] Comment on above: Performed By: #### B MP #### [facility] [address] [address] [address] Sarah Church Orders 06-04-2022 Orders Only [id number] Arlette Ramos 1970 F Date Provider Department Center 06/04/2022 JESSICA MAX MADELYN [facility] No family history on file [facility] 06-01-2022 36 Patient called and i s [...] for her high cholesterol . HELP!! lol [facility] Orders 06-01-2022 Orders Only [id number] Arlette Ramos 1970 F Date Provider Department Center 06/01/2022 MALCOLM SCHAFER. No family history on file [facility] 05-28-2022 36 Spoke with flaca she states to call in script of losartan 25 mg QD Normal [facility] GLYCOHEMOGLOBIN A1Con 2022 ADA RECOMMENDATION SEE BELOW Normal [facility] Comment on above: Result Comment: ADA RECOMMENDED LIMIT 4.0 - 6.0 ADA THERAPEUTIC TARGET < 7.0 ACTION SUGGESTED > 7.0 Performed By: #### A 1C ####[facility] [address] [place], [place] [address]NzCoretta Church Glucose [Mass/Vol] 266 mg/dL Normal [facility] Comment on above: Performed By: #### A 1C ####[facility] [address] [place], [place] [address]LnCoretta Church HbA1c (Bld) [Mass fraction] 10.9 % Critically high 4.5-6.2 [facility] Comment on above: Performed By: #### A 1C ####[facility] [address] [place], [place] [address]FjCoretta Church Office Visiton 05-19-2022 Follow-up visit [id number] Arlette Ramos 1970 F Date Provider Department Center 05/19/2022 Carlos-NATHAN, MALCOLM [facility] No family history on file Level of Service:61800 [place] OFFICE/OUTPATIENT ESTABLISHED MOD [facility] 30-39 MIN Reason for Visit and Comments: Coronary Artery Disease [187] Hyperlipidemia [182] Normal [facility] XR HIP RT 2 3V W [...] by: JAVAD ROB Date: 2022-04-06 21:15 Normal [facility] CBC AUTO DIFFon 11-05-2021 BASO # 0.1 103/ul Normal 0.0-0.1 [facility] Comment on above: Performed By: #### C BC #### [facility] [address] [place], [place] [address] Dr. Sarah Church Basophils/100 WBC (Bld) 0.4 % Normal 0.2-2.0 [facility] Comment on above: Performed By: #### C BC #### [facility] [address] [place] [address] Dr. Sarah Church EO # 0.2 103/ul Normal 0.0-0.7 [facility] Comment on above: Performed By: #### C BC #### [facility] [address] [place] [address] Dr. Sarah Church Eosinophils/100 WBC (Bld) 1.3 % Normal 0.9-7.0 [facility] Comment on above: Performed By: #### C BC #### [facility] [address] [place] [address] Dr. Sarah Church Erythrocyte distribution width (RBC) [Ratio] 12.3 % Normal 11.0-15.0 [facility] Comment on above: Performed By: #### C BC #### [facility] [address] [place] [address] Dr. Sarah Church Hematocrit (Bld) [Volume fraction] 43.1 % Normal 36.0-48.0 [facility] Comment on above: Performed By: #### C BC #### [facility] [address] [place] [address] Dr. Sarah Church Hemoglobin (Bld) [Mass/Vol] 14.6 g/dL Normal 12.0-16.0 [facility] Comment on above: Performed By: #### C BC #### [facility] [address] [place] [address] Dr. Sarah Church IG # 0.04 10e3/ul Critically high 0.00-0.03 [facility] Comment on above: Performed By: #### C BC #### [facility] [address] [place] [address] Dr. Sarah Church IG % 0.3 % Normal 0.0-0.5 [facility] Comment on above: Performed By: #### C BC #### [facility] [address] [place] [address] Dr. Sarah Church LYMPH # 1.6 103/ul Normal 1.2-3.8 [facility] Comment on above: Performed By: #### C BC #### [facility] [address] [place] [address] Dr. Sarah Church Lymphocytes/100 WBC (Bld) 12.5 % Critically low 20.5-60.0 [facility] Comment on above: Performed By: #### C BC #### [facility] [address] [place] [address] Dr. Sarah Church MANUAL DIFF REQ NO Normal [facility] Comment on above: Performed By: #### C BC #### [facility] [address] [place] [address] Dr. Sarah Church MCH (RBC) [Entitic mass] 29.4 pg Normal 26.7-34.0 [facility] Comment on above: Performed By: #### C BC #### [facility] [address] [place] [address] Dr. Sarah Church MCHC (RBC) [Mass/Vol] 33.9 g/dL Normal 29.9-35.2 [facility] Comment on above: Performed By: #### C BC #### [facility] [address] [place] [address] Dr. Sarah Church MCV (RBC) [Entitic vol] 86.7 fL Normal 81.0-99.0 [facility] Comment on above: Performed By: #### C BC #### [facility] [address] [place] [address] Dr. Sarah Church MONO # 1.0 103/ul Critically high 0.3-0.8 [facility] Comment on above: Performed By: #### C BC #### [facility] [address] [place] [address] Dr. Sarah Church Monocytes/100 WBC (Bld) 7.7 % Normal 1.7-12.0 [facility] Comment on above: Performed By: #### C BC #### [facility] [address] [place] [address] Dr. Sarah Church NEUT # 9.6 103/ul Critically high 1.4-6.5 [facility] Comment on above: Performed By: #### C BC #### [facility] [address] [address] [address] Sarah Church Neutrophils/100 WBC (Bld) 77.8 % Critically high 43.0-75.0 [facility] Comment on above: Performed By: #### C BC #### [facility] [address] [address] [address] Sarah Church Platelet mean volume (Bld) [Entitic vol] 11.0 fL Normal 9.5-13.5 [facility] Comment on above: Performed By: #### C BC #### [facility] [address] [address] [address] Sarah Church PLT 220 103/ul Normal 150-450 [facility] Comment on above: Performed By: #### C BC #### [facility] [address] [address] [address] Sarah Church RBC 4.97 106/ul Normal 4.20-5.40 [facility] Comment on above: Performed By: #### C BC #### [facility] [address] [address] [address] Sarah Church WBC 12.4 103/ul Critically high 4.0-11.0 [facility] Comment on above: Performed By: #### C BC #### [facility] [address] [address] [address] Sarah Church GROUP A STREP CULTUREon S. pyogenes Ag Ql (Unsp spec) Culture Observations: NEGATIVE FOR GROUP A STREPTOCOCCUS. Normal [facility] Comment on above: Performed By: #### G RASTCX, SSCRN ####[facility] [address] [address]Dr. Sarah Church POINT OF CARE GLUCOSEon Glucose [Mass/Vol] 214 mg/dL Critically high 74-106 [facility] Comment on above: Performed By: #### P OCGLUC #### [facility] [address] [place] [address] Dr. Sarah Church STREPT SCREENon 11-05-2021 STREP SCREEN A Negative Normal NEGATIVE [place] Comment on above: Performed By: #### G RASTCX, SSCRN ####[facility] [address] [address]Dr. Sarah Church CBC AUTO DIFFon 10-16-2021 BASO # 0.1 103/ul Normal 0.0-0.1 [facility] Comment on above: Performed By: #### C BC #### [facility] [address] [address] [address] Sarah Church Basophils/100 WBC (Bld) 0.8 % Normal 0.2-2.0 [facility] Comment on above: Performed By: #### C BC #### [facility] [address] [address] [address] Sarah Church EO # 0.3 103/ul Normal 0.0-0.7 [facility] Comment on above: Performed By: #### C BC #### [facility] [address] [address] [address] Sarah Church Eosinophils/100 WBC (Bld) 3.4 % Normal 0.9-7.0 [facility] Comment on above: Performed By: #### C BC #### [facility] [address] [address] [address] Sarah Church Erythrocyte distribution width (RBC) [Ratio] 12.6 % Normal 11.0-15.0 [facility] Comment on above: Performed By: #### C BC #### [facility] [address] [address] [address] Sarah Church Hematocrit (Bld) [Volume fraction] 45.4 % Normal 36.0-48.0 [facility] Comment on above: Performed By: #### C BC #### [facility] [address] [address] [address] Sarah Church Hemoglobin (Bld) [Mass/Vol] 15.0 g/dL Normal 12.0-16.0 [facility] Comment on above: Performed By: #### C BC #### [facility] [address] [place] [address] Dr. Sarah Church IG # 0.02 10e3/ul Normal 0.00-0.03 [facility] Comment on above: Performed By: #### C BC #### [facility] [address] [place] [address] Dr. Sarah Church IG % 0.2 % Normal 0.0-0.5 [facility] Comment on above: Performed By: #### C BC #### [facility] [address] [place] [address] Dr. Sarah Church LYMPH # 2.7 103/ul Normal 1.2-3.8 [facility] Comment on above: Performed By: #### C BC #### [facility] [address] [place] [address] Dr. Sarah Church Lymphocytes/100 WBC (Bld) 31.0 % Normal 20.5-60.0 [facility] Comment on above: Performed By: #### C BC #### [facility] [address] [place] [address] Dr. Sarah Church MANUAL DIFF REQ NO Normal [facility] Comment on above: Performed By: #### C BC #### [facility] [address] [place] [address] Dr. Sarah Church MCH (RBC) [Entitic mass] 29.3 pg Normal 26.7-34.0 [facility] Comment on above: Performed By: #### C BC #### [facility] [address] [place] [address] Dr. Sarah Church MCHC (RBC) [Mass/Vol] 33.0 g/dL Normal 29.9-35.2 [facility] Comment on above: Performed By: #### C BC #### [facility] [address] [place] [address] Dr. Sarah Church MCV (RBC) [Entitic vol] 88.7 fL Normal 81.0-99.0 [facility] Comment on above: Performed By: #### C BC #### [facility] [address] [place] [address] Dr. Sarah Church MONO # 0.6 103/ul Normal 0.3-0.8 [facility] Comment on above: Performed By: #### C BC #### [facility] [address] [place] [address] Dr. Sarah Church Monocytes/100 WBC (Bld) 6.5 % Normal 1.7-12.0 [facility] Comment on above: Performed By: #### C BC #### [facility] [address] [place] [address] Dr. Sarah Church NEUT # 5.0 103/ul Normal 1.4-6.5 [facility] Comment on above: Performed By: #### C BC #### [facility] [address] [place] [address] Dr. Sarah Church Neutrophils/100 WBC (Bld) 58.1 % Normal 43.0-75.0 [facility] Comment on above: Performed By: #### C BC #### [facility] [address] [place] [address] Dr. Sarah Church Platelet mean volume (Bld) [Entitic vol] 11.0 fL Normal 9.5-13.5 [facility] Comment on above: Performed By: #### C BC #### [facility] [address] [place] [address] Dr. Sarah Church PLT 226 103/ul Normal 150-450 [facility] Comment on above: Performed By: #### C BC #### [facility] [address] [place] [address] Dr. Sarah Church RBC 5.12 106/ul Normal 4.20-5.40 [facility] Comment on above: Performed By: #### C BC #### [facility] [address] [place] [address] Dr. Sarah Church WBC 8.6 103/ul Normal 4.0-11.0 [facility] Comment on above: Performed By: #### C BC #### [facility] [address] [place] [address] Dr. Sarah Church GLYCOHEMOGLOBIN A1Con 06-17- 2022 ADA RECOMMENDATION SEE BELOW Normal [facility] Comment on above: Result Comment: ADA RECOMMENDED LIMIT 4.0 - 6.0 ADA THERAPEUTIC TARGET < 7.0 ACTION SUGGESTED > 7.0 Performed By: #### A 1C ####[facility] [address] [address]Dr. Sarah Church Glucose [Mass/Vol] 275 mg/dL Normal [facility] Comment on above: Performed By: #### A 1C ####[facility] [address] [address]Dr. Sarah Church HbA1c (Bld) [Mass fraction] 11.2 % Critically high 4.5-6.2 [facility] Comment on above: Performed By: #### A 1C ####[facility] [address] [address]Dr. Sarah Church LIPID PROFILEon 10-16-2021 CHOL-HDL RATIO NORM SEE BELOW Normal [facility] Comment on above: Result Comment: 3.3 - 4.4 LOW RISK 4.4 - 7.1 AVERAGE RISK 7.1 - 11.0 MODERATE RISK >11.0 HIGH RISK Performed By: #### L IPID, CMP ####[facility] [address] [address]Dr. Sarah Church Cholesterol [Mass/Vol] 159 mg/dL Normal <=200 [facility] Comment on above: Performed By: #### L IPID, CMP ####[facility] [address] [address]Dr. Corriebrenden Church Cholesterol in HDL [Mass/Vol] 41 mg/dL Normal 40-60 [facility] Comment on above: Performed By: #### L IPID, CMP ####[facility] [address] [place] [id number]. Sarah Church Cholesterol in LDL [Mass/Vol] 102.6 mg/dL Normal [facility] Comment on above: Performed By: #### L IPID, CMP ####[facility] [address] [address]Dr. Corriebrenden Ranjit Cholesterol.total/C holesterol in HDL [Mass ratio] 3.9 {ratio} Normal [facility] Comment on above: Performed By: #### L IPID, CMP ####[facility] [address] [address]Dr. Sarah Church HDL NORMAL > or = 60 mg/dl - LO W CARDIOVASCULAR RISK <40 mg/dl - HIGH CARDIOVASCULAR RISK Normal [facility] Comment on above: Performed By: #### L IPID, CMP ####[facility] [address] [address]Dr. Sarah Church LDL CALC NORMAL SEE BELOW Normal [facility] Comment on above: Result Comment: <100 mg/dl OPTIMAL 100 - 129 mg/dl NEAR OR ABOVE OPTIMAL 130 - 159 mg/dl BORDERLINE HIGH 160 - 189 mg/dl HIGH >190 mg/dl VERY HIGH Performed By: #### L IPID, CMP ####[facility] [address] [address]Dr. Sarah Church Triglyceride [Mass/Vol] 77 mg/dL Normal <=150 [facility] Comment on above: Performed By: #### L IPID, CMP ####[facility] [address] [address]Dr. Sarah Church VLDL CALC 15.4 mg/dL Normal [facility] Comment on above: Performed By: #### L IPID, CMP ####[facility] [address] [address]Dr. Sarah Church MICROALBUMIN, RAND URon 06- mALB 2.0 mg/L Normal <=30.0 [facility] Comment on above: Performed By: #### M ALBR #### [facility] [address] [address] [address] Sarah Church PROF 14(COMP METB)on 022 Albumin [Mass/Vol] 3.5 g/dL Normal 3.4-5.0 [facility] Comment on above: Performed By: #### L IPID, CMP ####[facility] [address] [address]Dr. Sarah Church Albumin/Globulin [Mass ratio] 0.8 {ratio} Normal [facility] Comment on above: Performed By: #### L IPID, CMP ####[facility] [address] [address]Dr. Sarah Church ALP [Catalytic activity/Vol] 85 U/L Normal 46-116 [facility] Comment on above: Performed By: #### L IPID, CMP ####[facility] [address] [address]Dr. Sarah Church ALT [Catalytic activity/Vol] 59 U/L Normal 14-59 [facility] Comment on above: Performed By: #### L IPID, CMP ####[facility] [address] [address]Dr. Corriebrenden Ranjit Anion gap [Moles/Vol] 15.1 mmol/L Normal [facility] Comment on above: Performed By: #### L IPID, CMP ####[facility] [address] [place], [place] [address]Dr. Sarah Ranjit AST [Catalytic activity/Vol] 32 U/L Normal 15-37 [facility] Comment on above: Performed By: #### L IPID, CMP ####[facility] [address] [place], [place] [address]Dr. Corriebrenden Ranjit Bilirubin [Mass/Vol] 0.4 mg/dL Normal 0.2-1.0 [facility] Comment on above: Performed By: #### L IPID, CMP ####[facility] [address] [place], [place] [address]Dr. Sarah Church Calcium [Mass/Vol] 9.0 mg/dL Normal 8.5-10.1 [facility] Comment on above: Performed By: #### L IPID, CMP ####[facility] [address] [place], [place] [address]Dr. Sarah Church Chloride [Moles/Vol] 102 mmol/L Normal 98-107 [facility] Comment on above: Performed By: #### L IPID, CMP ####[facility] [address] [place], [place] [address]Dr. Sarah Church CO2 [Moles/Vol] 30.2 mmol/L Normal 21.0-32.0 [facility] Comment on above: Performed By: #### L IPID, CMP ####[facility] [address] [place] [address]Dr. Sarah Church Creatinine [Mass/Vol] 0.81 mg/dL Normal 0.55-1.02 [facility] Comment on above: Performed By: #### L IPID, CMP ####[facility] [address] [place] [id number]. Sarah Church EGFR-AF JORDANIAN >60 Normal >=60 [facility] Comment on above: Performed By: #### L IPID, CMP ####[facility] [address] [place] [address]Dr. Sarah Church EGFR-NON AF JORDANIAN >60 Normal >=60 [facility] Comment on above: Performed By: #### L IPID, CMP ####[facility] [address] [place] [address]Dr. Sarah Church Globulin (S) [Mass/Vol] 3.9 g/dL Normal [facility] Comment on above: Performed By: #### L IPID, CMP ####[facility] [address] [place] [address]Dr. Sarah Church Glucose [Mass/Vol] 218 mg/dL Critically high 74-106 [facility] Comment on above: Performed By: #### L IPID, CMP ####[facility] [address] [place] [address]Dr. Sarah Church Potassium [Moles/Vol] 4.3 mmol/L Normal 3.5-5.1 [facility] Comment on above: Performed By: #### L IPID, CMP ####[facility] [address] [place] [address]Dr. Sarah Church Protein [Mass/Vol] 7.4 g/dL Normal 6.4-8.2 [facility] Comment on above: Performed By: #### L IPID, CMP ####[facility] [id number] [place] [address]Dr. Sarah Church Sodium [Moles/Vol] 143 mmol/L Normal 136-145 [facility] Comment on above: Performed By: #### L IPID, CMP ####[facility] [id number] [place], [place] [address]Pj. Sarah Church Urea nitrogen [Mass/Vol] 14.0 mg/dL Normal 7.0-18.0 [facility] Comment on above: Performed By: #### L IPID, CMP ####[facility] [id number] [place], [place] [address]Ye. Sarah Church Urea nitrogen/Creatinine [Mass ratio] 17.2 mg/mg Normal [facility] Comment on above: Performed By: #### L IPID, CMP ####[facility] [id number] [place], [place] [address]Da. Sarah Church Vital Signs Date Time Vital Sign Value Performing Clinician Facility 05-30-2024 10:48-0500 Body height 157.48 cm [facility] [place] 05-30-2024 10:48-0500 Body mass index (BMI) [Ratio] 38.5 kg/m2 [facility] 05-30-2024 10:48-0500 Body weight 95.7 kg [facility] [place] 05-30-2024 10:48-0500 Diastolic blood pressure 77 mm[Hg] [facility] 05-30-2024 10:48-0500 Heart rate 80 /min [facility] [place] 05-30-2024 10:48-0500 Systolic blood pressure 133 mm[Hg] [facility] 02-23-2024 13:23-0400 Body height 157.48 cm [facility] [place] 02-23-2024 13:23-0400 Body mass index (BMI) [Ratio] 38 kg/m2 [facility] 02-23-2024 13:23-0400 Body weight 94.37 kg [facility] [place] 02-23-2024 13:23-0400 Diastolic blood pressure 78 mm[Hg] [facility] 02-23-2024 13:23-0400 Heart rate 75 /min [facility] [place] 02-23-2024 13:23-0400 Respiratory rate 18 /min [facility] 02-23-2024 13:23-0400 SaO2% (BldA) [Mass fraction] 97 % [facility] 02-23-2024 13:23-0400 Systolic blood pressure 170 mm[Hg] [facility] 12-13-2023 13:03-0400 Body height 157.48 cm [facility] [place] 12-13-2023 13:03-0400 Body mass index (BMI) [Ratio] 37.1 kg/m2 [facility] 12-13-2023 13:03-0400 Body weight 92.07 kg [facility] [place] 12-13-2023 13:03-0400 Diastolic blood pressure 86 mm[Hg] [facility] 12-13-2023 13:03-0400 Heart rate 78 /min [facility] [place] 12-13-2023 13:03-0400 Respiratory rate 18 /min [facility] 12-13-2023 13:03-0400 SaO2% (BldA) [Mass fraction] 96 % [facility] 12-13-2023 13:03-0400 Systolic blood pressure 153 mm[Hg] [facility] 12-05-2023 11:24-0400 Body height 157.48 cm [facility] [place] 12-05-2023 11:24-0400 Body mass index (BMI) [Ratio] 36.9 kg/m2 [facility] 12-05-2023 11:24-0400 Body weight 91.62 kg [facility] [place] 12-05-2023 11:24-0400 Diastolic blood pressure 75 mm[Hg] [facility] 12-05-2023 11:24-0400 Heart rate 80 /min [facility] [place] 12-05-2023 11:24-0400 Systolic blood pressure 133 mm[Hg] [facility] 09-29-2023 13:44-0400 Diastolic blood pressure 76 mm[Hg] [facility] 09-29-2023 13:44-0400 Systolic blood pressure 130 mm[Hg] [facility] 09-29-2023 13:19-0400 Body height 157.48 cm [facility] [place] 09-29-2023 13:19-0400 Body mass index (BMI) [Ratio] 38.7 kg/m2 [facility] 09-29-2023 13:19-0400 Body weight 95.9 kg [facility] [place] 09-29-2023 13:19-0400 Heart rate 89 /min [facility] [place] 09-29-2023 13:19-0400 Respiratory rate 18 /min [facility] 09-29-2023 13:19-0400 SaO2% (BldA) [Mass fraction] 98 % [facility] 09-06-2023 11:08-0400 Body height 157.48 cm [facility] [place] 09-06-2023 11:08-0400 Body mass index (BMI) [Ratio] 37.6 kg/m2 [facility] 09-06-2023 11:08-0400 Body weight 93.44 kg [facility] [place] 09-06-2023 11:08-0400 Diastolic blood pressure 72 mm[Hg] [facility] 09-06-2023 11:08-0400 Heart rate 89 /min [facility] [place] 09-06-2023 11:08-0400 Systolic blood pressure 127 mm[Hg] [facility] 08-24-2023 15:08-0400 Body height 157.48 cm [facility] [place] 08-24-2023 15:08-0400 Body mass index (BMI) [Ratio] 37.5 kg/m2 [facility] 08-24-2023 15:08-0400 Body weight 93.21 kg [facility] [place] 08-19-2023 10:43-0400 Body height 157.48 cm MD Shayy Dela Cruz Work Phone: [facility] 08-19-2023 10:43-0400 Body mass index (BMI) [Ratio] 37.5 kg/m2 MD Shayy Dela Cruz Work Phone: [facility] 08-19-2023 10:43-0400 Body weight 93.09 kg MD Shayy Dela Cruz Work Phone: [facility] 08-19-2023 10:43-0400 Diastolic blood pressure 79 mm[Hg] MD Shayy Dela Cruz Work Phone: [facility] 08-19-2023 10:43-0400 Heart rate 83 /min MD Shayy Dela Cruz Work Phone: [facility] 08-19-2023 10:43-0400 Systolic blood pressure 135 mm[Hg] MD Shayy Dela Cruz Work Phone: [facility] 07-28-2023 14:22-0400 Body height 157.48 cm MD Shayy Dela Cruz Work Phone: [facility] 07-28-2023 14:22-0400 Body mass index (BMI) [Ratio] 37.6 kg/m2 MD Shayy Dela Cruz Work Phone: [facility] 07-28-2023 14:22-0400 Body weight 93.44 kg MD Shayy Dela Cruz Work Phone: [facility] 07-28-2023 14:22-0400 Diastolic blood pressure 84 mm[Hg] MD Shayy Dela Cruz Work Phone: [facility] 07-28-2023 14:22-0400 Heart rate 83 /min MD Shayy Dela Cruz Work Phone: [facility] 07-28-2023 14:22-0400 Respiratory rate 18 /min MD Shayy Dela Cruz Work Phone: [facility] 07-28-2023 14:22-0400 SaO2% (BldA) [Mass fraction] 97 % MD Shayy Dela Cruz Work Phone: [facility] 07-28-2023 14:22-0400 Systolic blood pressure 140 mm[Hg] MD Shayy Dela Cruz Work Phone: [facility] 07-19-2023 10:57-0400 Body height 157.48 cm MD Shayy Dela Cruz Work Phone: [facility] 07-19-2023 10:57-0400 Body mass index (BMI) [Ratio] 37.1 kg/m2 MD Shayy Dela Cruz Work Phone: [facility] 07-19-2023 10:57-0400 Body weight 92.07 kg MD Shayy Dela Cruz Work Phone: [facility] 07-19-2023 10:57-0400 Diastolic blood pressure 68 mm[Hg] MD Shayy Dela Cruz Work Phone: [facility] 07-19-2023 10:57-0400 Heart rate 89 /min MD Shayy Dela Cruz Work Phone: [facility] 07-19-2023 10:57-0400 Systolic blood pressure 132 mm[Hg] MD Shayy Dela Cruz Work Phone: [facility] 05-25-2023 11:00-0500 Body height 157.48 cm Cathie Scally Other [facility] 05-25-2023 11:00-0500 Body mass index (BMI) [Ratio] 37.23 kg/m2 Cathie Scally Other [facility] [employer] Other 05-25-2023 11:00-0500 Body weight 92.35 kg Cathie Scally Other [facility] 05-25-2023 11:00-0500 Diastolic blood pressure 71 mm[Hg] Cathie Scally Other [facility] 05-25-2023 11:00-0500 Respiratory rate 18 /min Cathie Scally Other [facility] [employer] Other 05-25-2023 11:00-0500 SaO2% (BldA) [Mass fraction] 95 % Cathie Scally Other [facility] [employer] Other 05-25-2023 11:00-0500 Systolic blood pressure 139 mm[Hg] Cathie Scally Other [facility] 04-15-2023 11:00-0500 Body height 157.48 cm Shayy Dela Cruz Other [facility] 04-15-2023 11:00-0500 Body mass index (BMI) [Ratio] 37.49 kg/m2 Shayy Dela Cruz Other [facility] [employer] Other 04-15-2023 11:00-0500 Body weight 92.99 kg Shayy Dela Cruz Other [facility] [employer] Other 04-15-2023 11:00-0500 Body weight 92.98 kg MD Shayy Dela Cruz Work Phone: [facility] 04-15-2023 11:00-0500 Diastolic blood pressure 84 mm[Hg] Shayy Dela Cruz Other [facility] 04-15-2023 11:00-0500 Systolic blood pressure 142 mm[Hg] Shayy Dela Cruz Other [facility] 06-22-2022 13:30-0500 Body height 157.48 cm Shayy Dela Cruz Other [facility] [employer] Other 06-22-2022 13:30-0500 Body mass index (BMI) [Ratio] 36.94 kg/m2 Shayy Dela Cruz Other [employer] Other 06-22-2022 13:30-0500 Body weight 91.63 kg Shayy Dela Cruz Other [employer] Other 06-22-2022 13:30-0500 Diastolic blood pressure 74 mm[Hg] Shayy Dela Cruz Other [employer] Other 06-22-2022 13:30-0500 SaO2% (BldA) [Mass fraction] 97 % Shayy Dela Cruz Other [employer] Other 06-22-2022 13:30-0500 Systolic blood pressure 112 mm[Hg] Shayy Dela Cruz Other [facility] [employer] Other Encounters Encounter Date Encounter Type Care Provider Facility Start: 05-30-2024 End: 05-30-2024 ambulatory [facility] Work Phone: Start: 05-30-2024 End: 05-30-2024 Patient encounter procedure [facility] Physician [facility] Work Phone: Start: 05-24-2024 End: 05-24-2024 ambulatory [facility] Work Phone: Start: 05-24-2024 End: 05-24-2024 Patient encounter procedure [facility] Physician [facility] Work Phone: Start: 05-16-2024 Non-patient / Non-visit [facility] Physician [facility] [employer] Work Phone: Start: 05-07-2024 Non-patient / Non-visit [facility] Physician [facility] Work Phone: Start: 04-19-2024 End: 04-19-2024 Patient encounter procedure [facility] Physician [facility] Work Phone: Start: 02-28-2024 Non-patient / Non-visit [facility] Physician [facility] Work Phone: Start: 02-23-2024 End: 02-23-2024 ambulatory Cathie Vargas [facility] Work Phone: Start: 02-23-2024 End: 02-23-2024 Patient encounter procedure ASSISTANT CENTER MANAGER Cathie Vargas Work Phone: [facility] Work Phone: Start: 02-23-2024 End: 02-23-2024 ambulatory [facility] Work Phone: Start: 02-23-2024 End: 02-23-2024 Patient encounter procedure [facility] Physician [facility] Work Phone: Start: 01-17-2024 End: 01-17-[address] [facility] Work Phone: Start: 01-17-2024 End: 01-17-2024 Patient encounter procedure [facility] Work Phone: Start: 12-13-2023 End: 12-13-2023 ambulatory [facility] Work Phone: Start: 12-13-2023 End: 12-13-2023 Patient encounter procedure [facility] Work Phone: Start: 12-05-2023 End: 12-05-2023 ambulatory [facility] Work Phone: Start: 12-05-2023 End: 12-05-2023 Patient encounter procedure [facility] Work Phone: Start: 11-07-2023 End: 11-07-2023 ambulatory [facility] Work Phone: Start: 11-07-2023 End: 11-07-2023 Patient encounter procedure [facility] Work Phone: Start: 09-29-2023 End: 09-29-2023 ambulatory [facility] Work Phone: Start: 09-29-2023 End: 09-29-2023 Patient encounter procedure [facility] Work Phone: Start: 09-06-2023 End: 09-06-2023 ambulatory [facility] Work Phone: Start: 09-06-2023 End: 09-06-2023 Patient encounter procedure [facility] Physician [facility] Work Phone: Start: 08-24-2023 End: 08-24-2023 ambulatory [facility] Work Phone: Start: 08-24-2023 End: 08-24-2023 Patient encounter procedure [facility] Work Phone: Start: 08-19-2023 End: 08-19-2023 ambulatory MD Shayy Dela Cruz Work Phone: [facility] Work Phone: Start: 08-19-2023 End: 08-19-2023 Patient encounter procedure MD Shayy Dela Cruz Work Phone: [facility] Physician [facility] Work Phone: Start: 07-28-2023 End: 07-28-2023 ambulatory MD Shayy Dela Cruz Work Phone: [facility] Work Phone: Start: 07-28-2023 End: 07-28-2023 Patient encounter procedure MD Shayy Dela Cruz Work Phone: [facility] Work Phone: Start: 07-19-2023 End: 07-19-2023 ambulatory MD Shayy Dela Cruz Work Phone: [facility] Work Phone: Start: 07-19-2023 End: 07-19-2023 Patient encounter procedure MD Shayy Dela Cruz Work Phone: [facility] Work Phone: Start: 07-12-2023 Non-patient / Non-visit MD Shayy Dela Cruz Work Phone: [facility] Work Phone: Start: 06-14-2023 End: 06-14-2023 Patient encounter procedure MD Shayy Dela Cruz Work Phone: [facility] Work Phone: Start: 06-14-2023 End: 06-14-2023 ambulatory MD Shayy Dela Cruz Work Phone: [facility] Work Phone: Start: 06-06-2023 End: 06-06-2023 ambulatory Shayy Dela Cruz Other [employer] Other Start: 06-06-2023 Telephone encounter Shayy Dela Cruz [facility] Start: 05-25-2023 [facility] visit new patient Cathie love [facility] Start: 05-25-2023 End: 05-25-2023 ambulatory MD Shayy Dela Cruz Work Phone: [employer] Other Start: 05-25-2023 End: 05-25-2023 Discharged Recurring MD Shayy Dela Cruz Work Phone: [facility] Work Phone: Start: 05-25-2023 Registered Recurring MD Shayy Dela Cruz Work Phone: [facility] Work Phone: Start: 05-25-2023 End: 05-25-2023 Patient encounter procedure MD Shayy Dela Cruz Work Phone: [facility]- Start: 05-12-2023 End: 05-12-2023 ambulatory Shayy Dela Cruz Other [employer] Other Start: 05-12-2023 Telephone encounter Shayy Dela Cruz [facility] Start: 05-10-2023 End: 05-10-2023 ambulatory Shayy Dela Cruz Other [employer] Other Start: 05-10-2023 Telephone encounter Shayy Dela Cruz [facility] Start: 04-22-2023 End: 04-22-2023 ambulatory Shayy Dela Cruz Other [employer] Other Start: 04-22-2023 Telephone encounter Shayy Dela Cruz [facility] Start: 04-20-2023 End: 04-20-2023 ambulatory Lynne Hernandez Other [employer] Other Start: 04-20-2023 Telephone encounter Lynne Hernandez [facility] Start: 04-18-2023 End: 04-18-2023 ambulatory Lynne Hernandez Other [employer] Other Start: 04-18-2023 Telephone encounter Lynne galvan [facility] Start: 04-15-2023 End: 04-15-2023 ambulatory hSayy Dela Cruz Other [employer] Other Start: 04-15-2023 Office outpatient visit 15 minutes Shayy Dela Cruz [facility] Start: 04-15-2023 End: 04-15-2023 Patient encounter procedure MD Shayy Dela Cruz Work Phone: [facility] Work Phone: Start: 04-06-2023 End: 04-06-2023 ambulatory Shayy Dela Cruz Other [employer] Other Start: 04-06-2023 Telephone encounter Shayy Dela Cruz [facility] Start: 02-25-2023 End: 02-25-2023 ambulatory Shayy Dela Cruz Other [employer] Other Start: 02-25-2023 Telephone encounter Shayy Dela Cruz [facility] Start: 12-13-2022 End: 12-13-2022 [facility] Start: 10-29-2022 End: 10-29-2022 ambulatory Shayy Dela Cruz Other [employer] Other Start: 10-29-2022 Telephone encounter Shayy Dela Cruz [facility] Start: 08-27-2022 End: 08-28-[address] SHAYY DELA CRUZ Facility:[facility] Start: 08-10-2022 End: 08-10-2022 [facility] Start: 07-20-2022 End: 07-21-[address] SHAYY DELA CRUZ Facility:[facility] Start: 07-19-2022 End: 07-19-2022 ambulatory Shayy Dela Cruz Other [employer] Other Start: 07-19-2022 Telephone encounter Shayy Dela Cruz [facility] Start: 07-12-2022 End: 07-13-[address] SHAYY DELA CRUZ Facility:[facility] Start: 07-05-2022 End: 07-05-2022 ambulatory Shayy Dela Cruz Other [employer] Other Start: 07-05-2022 Telephone encounter Shayy Dela Cruz [facility] Start: 06-28-2022 End: 06-28-2022 ambulatory Shayy Dela Cruz Other [employer] Other Start: 06-28-2022 Telephone encounter Shayy Dela Cruz [facility] Start: 06-22-2022 End: 06-22-2022 ambulatory Shayy Dela Cruz Other [employer] Other Start: 06-22-2022 Office outpatient visit 15 minutes Shayy Dela Cruz [facility] Start: 05-27-2022 End: 05-27-2022 ambulatory Shayy Dela Cruz Other [employer] Other Start: 05-27-2022 Telephone encounter Shayy Dela Cruz [facility] Start: 05-19-2022 End: 05-20-2022 ambulatory [...] Start: 05-10-2017 End: 05-11-2017 Ambulatory DEFAULT PHYSICIAN Facility:[facility] Start: 05-05-2017 End: 05-06-2017 Ambulatory DEFAULT PHYSICIAN Facility:[facility] Procedures Date Procedure Procedure Detail Performing Clinician Start: 12-13-2022 Follow-up visit Follow-up YESSENIAOLIVEGabo AGUILARDELILAHMILTON Plan of Treatment Date Care Activity Detail Author Comprehensive metabo lic 2000 panel - Serum or Plasma [facility] enter MG Breast - bilateral Screening [facility] Immunizations Immunization Date Immunization Notes Care Provider Fa cility 02-01-2022 influenza virus vaccine, split virus (incl. purified surface antigen) Shayy Dela Cruz Other [employer] Other 02-01-2022 influenza virus vaccine, unspecified formulation MD Shayy Dela Cruz Work Phone: [facility] Payers Date Payer Category Payer Medicare [id number] 2023 Self-pay 2021 Medicaid [id number] 2017 Unknown [id number] 1972 Unknown [id number] 2.16.84 [id number] 1972 Unknown [id number] 2.16.84 [id number] 1972 Unknown [id number] 2.16.84 [id number] 1972 Unknown [id number] 2.16.84 [id number] 1972 Unknown [id number] 2.16.84 [id number] 1972 Unknown [id number] 2.16.84 [id number] 1972 Unknown [id number] 2.16.84 [id number] 1972 Unknown [id number] 2.16.84 [id number] 1972 Unknown [id number] 2.16.84 [id number] 1957 Medicaid [id number] 2. [id number] 1957 Medicare [id number] 2. [id number] Unknown Unknown [id number] 2.16.8 [id number] Unknown [id number] 2.16.8 [id number] Social History Date Type Detail Facility Unknown if ever smoked [facility] [employer] Other Sex Assigned At Sex Assigned At [facility] [employer] Other Start: 1970 Sex Assigned At Female [facility] Start: 07-19-2023 End: 05-25-2024 Tobacco smoking status NHIS Never smoked tobacco (finding) [facility] Start: 05-24-2024 End: 05-30-2024 Sex Female (finding) [facility] NEGATED: Highlighted row 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 She was taught how to use the [...] the patient by Nguyễn Norwood RN, [facility]. [employer] Other 12-15-2023 Evaluation note* Encounter Date Diagnosis Assessment Notes Treatment Notes Treatment Clinical Notes Apr, Type 2 diabetes mellitus with hyperglycemia (ICD-10 - E11.65) Rx handwritten for diabetic shoes. Pt agrees to referral to specialty clinic. Continue present meds and discussed healthy diet in meantime. Apr, detention (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 of insulin (ICD-10 - Z79.4) [employer] Other 08-14-2023 NoteCardiology Clinic Note Subjective Zoila [...] Active Problem List Diagnosis Coronary arteriosclerosis in [place] artery Old myocardial infarction Sinusitis Type 1 [...] the IVC. Mitral V (more content not included)...[facility] 08-10-2022 NoteCardiology Clinic Note Subjective Zoila [...] Active Problem List Diagnosis Coronary arteriosclerosis in [place] artery Old myocardial infarction Sinusitis Type 1 [...] in size. The (more content not included)... [facility]02-21-2023 Evaluation note* Encounter Date Diagnosis Assessment Notes Treatment Notes Treatment Clinical Notes Jun, Acute non-recurrent maxillary sinusitis (ICD-10 - J01.00) Jun, Controlled type 2 diabetes mellitus with hyperglycemia, unspecified whether detention insulin use (ICD-10 - E11.65) Once again advised management at diabetes clinic. She declines and will continue meds, followup in 3 months, and recheck labs at that time. She is eating more of a keto diet and is certain that is helping her A1C improve. Jun, Screening mammogram for breast cancer (ICD-10 - Z12.31) Zoila will call for an appt [employer] Other 01-31-2023 NoteIn light of elevated LDL will change simvastatin to lipitor 40 mg daily. Will repeat liver function and lipid level in 2 months. Staff to notify pt. Malcolm Evans NP Division of Cardiology, [facility]- [phone] Pager- [phone] Email- [email or web address]-2023 NotePatient here for 1 year follow [...] light-headedness. All other systems reviewed and are negative.[facility] 05-19-2022 NoteUTP CARDIOLOGY PROGRESS NOTE HPI: [...] past 12 months Assessment/Plan: Coronary arteriosclerosis in [place] artery Coronary artery disease is stable, no [...] week RTC 1 month to review B/P logUnSamaritan Hospital01-18-2023 Note Hypertension is uncontrolled, Will add lisinopril 5 mg po daily, and continue metoprolol Goal b/p 130/80 or less, monitor for dry persistent cough- call office for any concerns, repeat BMP in 1 week RTC 1 month to review B/P logUnSamaritan Hospital01-18-2023 Note Coronary artery disease is stable, no concerning symptoms continue risk factor modifications- heart healthy diet, regular exercise as tolerated and continue all medications.[facility] 04-15-2022 NotePROCEDURE: XR FOOT LT MIN [...] Electronically authenticated by: NARINDER LAN Date: 2022-04-15 06:08[facility]09-12-2022 NotePROCEDURE: XR TOES RT MIN 2 V HISTORY: Pain of toe of right foot ; first toe pain following injury COMPARISON: None. FINDINGS: BONES:No fracture, acute abnormality, or significant arthropathy. SOFT TISSUES:No visible soft tissue swelling. EFFUSION:None visible. OTHER: Negative. IMPRESSION: 1. No acute bone abnormality. 2. Mild degenerative joint disease. Electronically authenticated by: NARINDER LAN Date: 2022-01-11 18:48[facility] HospitalChief complaint+Reason for visit Narrative* Chief Complaint 3 Month Follow Up Referral Dr. Negro LAGUERRE download [facility] Work Phone: chief complaint+Reason for visit Narrative* Chief Complaint 3 Month Follow Up Referral Dr. Negro LAGUERRE download Reason for Visit Type 2 diabetes holli [facility] Work Phone: Chibs complaint+Reason for visit Narrative* Chief Complaint Referral Dr. Negro LAGUERRE download 3 Month Check up Reason for Visit Type 2 diabetes holli [facility] Work Phone: chief complaint+Reason for visit Narrative* Chief Complaint Referral Dr. Negro LAGUERRE download 3 Month Check up amrik reader Reason for Visit Type 2 diabetes holli itus Right wrist fracture Type 2 diabetes mellitus [facility] Work Phone: chief complaint+Reason for visit [...] mellitus Vitamin D deficiency Gastroesophageal reflux disease [facility] Work Phone: Evaluation noteNo InformationNort [employer] Other Evaluation noteNo assessment information available [facility] Work Phone: Evaluation note* Diagnosis Onset Date Resolution Status Type 2 diabetes mellitus acu te [facility] Work Phone: evaluation note* Diagnosis Onset Date Resolution Status Type 2 diabetes mellitus acu te Right wrist fracture acute Type 2 diabetes mellitus acu te [facility] Work Phone: evaluation note* Diagnosis Onset Date Resolution Status Type 2 diabetes mellitus acu te Right wrist fracture acute Type 2 diabetes mellitus acu te BMI 37.0-37.9, adult acute Dietary counseling and surveillance acute History of myocardial infarction acute HTN (hypertension) acute Hyperlipidemia acute Long-term insulin use acute Type 2 diabetes mellitus acu te Vitamin D deficiency acute Gastroesophageal reflux disease acute [facility] Work Phone: evaluation note* Diagnosis Onset [...] acute Type 2 diabetes mellitus acu te [facility] Work Phone: evaluation note* Diagnosis Onset [...] acute Type 2 diabetes mellitus acu te [facility] Work Phone: Evaluation note* Diagnosis Onset [...] acute Type 2 diabetes mellitus acu te [facility] Work Phone: evaluation note* Diagnosis Onset [...] te Screening mammogram for breast cancer acute [facility] Work Phone: Evaluation note* Diagnosis Onset [...] mellitus acu te Vitamin D deficiency acute [facility] Work Phone: Evaluation note* Diagnosis Onset [...] acute Type 2 diabetes mellitus acu te [facility] Work Phone: Evaluation note* Diagnosis Onset [...] mellitus acu te Vitamin D deficiency acute [facility] Work Phone: History general Narrative - Reported* Type Description Date Medical History Herpes labialis Medical History Candidiasis of mouth Medical History Type 2 diabetes holli itus with diabetic polyneuropathy, unspecified whether detention insulin use Medical History Controlled type 2 di abetes mellitus with hyperglycemia, unspecified whether detention insulin use Medical History Obesity Medical History Dyslipidemia Medical History CAD in [place] artery Medical History Asthma, intermittent Medical History [...] History appendectomy Surgical History 7 stents 1999 [employer] Other History general Narrative - Reported* Type Description Date Medical History Herpes labialis Medical History Candidiasis of mouth Medical History Type 2 diabetes holli itus with diabetic polyneuropathy, unspecified whether detention insulin use Medical History Controlled type 2 di abetes mellitus with hyperglycemia, 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 Medical History Obesity Medical History Dyslipidemia Medical History CAD [place] artery Medical History Asthma, intermittent Medical History [...] stents 1999 Hospitalization History see surgical history [employer] Other Hisvcgu general Narrative - Reported* Type Description Date Medical History Herpes labialis Medical History Candidiasis of mouth Medical History Type 2 diabetes holli itus with diabetic polyneuropathy, unspecified whether detention insulin use Medical History Controlled type 2 di abetes mellitus with hyperglycemia, unspecified whether detention insulin use Medical History Obesity Medical History Dyslipidemia Medical History CAD in [place] artery Medical History Asthma, intermittent Medical History [...] coronary 1999 Hospitalization History see surgical history [employer] Other Summary Purpose Family History Relationship Condition [...] holli itus with hyperglycemia (E11.65) Referral Organization [facility] Karli fuchs Referring Provider First Name Shayy Referring Provider Last Name Jose De Jesus Referring Provider Specialty Family [facility] Referred Organization [facility] Referred Provider Marcia Mendes Referred Address [address] [place] [address],[facility],[place],[address] Referred Provider Specialty Nurse Huey saldaña Referral [...] and content) DATE CREATED AUTHOR 10/25/2017 [facility] DATE CREATED AUTHOR AUTHOR'S ORGANIZ ATION 09/03/2022 [facility] DATE CREATED AUTHOR AUTHOR'S ORGANIZ ATION 12/13/2022 [facility] DATE CREATED AUTHOR AUTHOR'S ORGANIZ ATION 02/25/2024 [facility] REASON FOR VISIT (unrecogniz ed section and content) labsmessage3 MONTH FOLLOW UP ACrefillmessagemessageRefill3 month Follow upDM [id number] ReferralrefillsNo InformationRefillReferral Dr. Negro Gallegos sensor running [...] End: September 29, 2023 Cathie Vargas , ASSISTANT CENTER MANAGER Attending Provider Active Start: September 29, 2023 End: September 29, 2023 Team Status: Inactive Member Role Status Dates Shayy Dela Cruz MD Primary Care Provider Active Start: November 07, 2023 End: November 07, 2023 Curtis Norwood RN Attending Provider Active St art: November 07, 2023 End: November 07, 2023 Cathie Vargas , ASSISTANT CENTER MANAGER Active Star t: November 07, 2023 End: [...] End: July 28, 2023 Cathie Vargas , ASSISTANT CENTER MANAGER Attending Provider Active Start: July 28, 2023 [...] End: June 14, 2023 Cathie Vargas , ASSISTANT CENTER MANAGER Active Star t: June 14, 2023 End: [...] 2024 End: April 19, 2024 Cathie Vargas , FATEMEH Active Star t: April 19, [...] BE BASED ON THE PRIMARY CLINICAL RECORDS. [employer] provides no warranty or guarantee of the accuracy or completeness of information in this document.
[2024-06-12 14:52] LABS: Alanine Aminotransferase 36 U/L (14-59); Albumin Globulin Ratio 0.7; Albumin Level 3.1 g/dL (3.4-5.0); Alkaline Phosphatase 118 U/L (46-116); Anion Gap 16.1; Aspartate Amino Transferase 18 U/L (15-37); BUN Creatinine Ratio 12.6; Bilirubin Total 0.3 mg/dL (0.2-1.0); Calcium 9.1 mg/dL (8.5-10.1); Carbon Dioxide 28.4 mmol/L (21.0-32.0); Chloride 102 mmol/L (98-107); Chol HDL Ratio 2.9; Cholesterol 124 mg/dL (<=200); Estimated GFR (African America >60 (>=60 mL/min/1.73m^2); Estimated GFR (Non-African Ame >60 (>=60 mL/min/1.73m^2); Globulin 4.2 g/dL; Glucose 197 mg/dL (74-106); HDL Cholesterol 43 mg/dL (40-60); LDL Cholesterol Calculated 67.4 mg/dL; Potassium 4.5 mmol/L (3.5-5.1); Sodium 142 mmol/L (136-145); Total Protein 7.3 g/dL (6.4-8.2); Triglycerides 68 mg/dL (<=150); VLDL CHOLESTEROL 13.6 mg/dL
[2024-06-13 04:07] LABS: Vitamin B12 998 pg/mL (232-1245)
== END 2024-06-12 13:06 | disposition home or self-care (01) ==
LOC: LAB 13:06
PROVIDERS: PCP Family Medicine; Visit Provider Nurse Practitioner Family
DX: E55.9 Vitamin D deficiency, unspecified (principal); Z79.4 Long term (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 of insulin; E11.65 Type 2 diabetes mellitus with hyperglycemia; E78.5 Hyperlipidemia, unspecified; E11.9 Type 2 diabetes mellitus without complications; Z68.37 Body mass index [BMI] 37.0-37.9, adult
CPT/HCPCS: 36415; 80053; 80061; 82306; 82607

== ENCOUNTER 2024-06-13 13:07 | Outpatient (OUT) | payer MEDICARE, MEDICAID, SELFPAY ==
--- NOTE | 2024-06-13 | XR_ITS ---
[facility] [place] [id number] Patient Name: COLETTE DINH MRN: [id number] date: 1970 Sex: F Assigned Patient Location: Current Patient Location: Accession/Order Number: [id number] Exam Date: 06/13/2024 13:08 Report Date: 06/14/2024 10:01 At the request of: FABIÁN STERLING Procedure: XR foot LT min 3V PROCEDURE: XR foot LT min 3V HISTORY: LEFT FOOT PAIN ; wounds involving the second, third, and fourth toes COMPARISON: XR foot left 06/07/2024, 05/06/2024, 04/27/2024 FINDINGS: BONES:Persistent osseous destruction of tip of second distal phalanx. Subtle lucencies involving the distal medial margins of the distal phalanx of the third and fourth toes. SOFT TISSUES:Soft tissue swelling of tip of second toe. EFFUSION:None visible. OTHER: Negative. XR/XR foot LT min 3V IMPRESSION: 1. Grossly stable appearance of the tips of the distal phalanx of the second, third, and fourth digits suggestive of osteomyelitis. 2. Prominent soft tissue swelling of tip of second toe; possibly mild soft tissue swelling of fourth toe. Electronically authenticated by: COLTEN TIRADO Date: 06/14/2024 10:01
== END 2024-06-13 13:08 | disposition home or self-care (01) ==
LOC: WC 13:07
PROVIDERS: PCP Family Medicine; Visit Provider Physician Assistant
DX: E11.621 Type 2 diabetes mellitus with foot ulcer (principal); L97.521 Non-pressure chronic ulcer of other part of left foot limited to breakdown of skin; M79.672 Pain in left foot
CPT/HCPCS: 73630; G0463

== ENCOUNTER 2024-06-19 13:04 | Outpatient (OUT) | payer MEDICARE, MEDICAID, SELFPAY ==
--- NOTE | 2024-06-19 13:09 | ECG_ITS ---
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
--- NOTE | 2024-06-19 14:10 | XR_ITS ---
[facility] [place] [id number] Patient Name: COLETTE DINH MRN: [id number] date: 1970 Sex: F Assigned Patient Location: [facility] Current Patient Location: [facility] Accession/Order Number: [id number] Exam Date: 06/19/2024 14:34 Report Date: 06/19/2024 14:37 At the request of: JORDYN SANCHEZ DPNegro Procedure: XR chest 2V PA AND LATERAL CHEST: CLINICAL HISTORY: Preop exam. Diabetic toe ulcers. COMPARISON: None There is no focal parenchymal consolidation, effusion or pneumothorax. The cardiac, hilar and mediastinal silhouettes are within normal limits. There is no vascular congestion. The visualized bony structures are osteopenic. There is endplate spurring the spine. XR/XR chest 2V IMPRESSION: NO ACUTE CARDIOPULMONARY ABNORMALITY. Impression dictated by: Aliyah Nicole M.D.06/19/2024 2:37 PM Dictation Location: [email or web address] Electronically authenticated by: [id number] Y Date: 06/19/2024 14:37
[2024-06-19 14:22] LABS: Basophils Absolute Auto 0.1 10^3/uL (0.0-0.1); Basophils Percent Auto 0.7 % (0.2-2.0); Eosinophils Absolute Auto 0.3 10^3/uL (0.0-0.7); Eosinophils Percent Auto 2.8 % (0.9-7.0); Hematocrit 39.1 % (36.0-48.0); Hemoglobin 13.1 g/dL (12.0-16.0); Immature Granulocytes Abs Auto 0.01 10^3/uL (0.00-0.03); Immature Granulocytes Pct Auto 0.1 % (0.0-0.5); Lymphocytes Absolute Auto 2.5 10^3/uL (1.2-3.8); Lymphocytes Percent Auto 28.3 % (20.5-60.0); Mean Corpuscular HGB Conc 33.5 g/dL (29.9-35.2); Mean Corpuscular Hemoglobin 29.2 pg (26.7-34.0); Mean Corpuscular Volume 87.3 fL (81.0-99.0); Mean Platelet Volume 10.1 fL (9.5-13.5); Monocytes Absolute Auto 0.5 10^3/uL (0.3-0.8); Neutrophils Absolute Auto 5.5 10^3/uL (1.4-6.5); Neutrophils Percent Auto 62.1 % (43.0-75.0); Platelet Count 359 10^3/uL (150-450); Red Blood Count 4.48 10^6/uL (4.20-5.40); Red Cell Distribution Width 13.1 % (11.0-15.0); White Blood Count 8.8 10^3/uL (4.0-11.0)
[2024-06-19 14:35] LABS: Anion Gap 11.5; BUN Creatinine Ratio 15.7; Carbon Dioxide 27.7 mmol/L (21.0-32.0); Chloride 102 mmol/L (98-107); Estimated GFR (African America >60 (>=60 mL/min/1.73m^2); Estimated GFR (Non-African Ame >60 (>=60 mL/min/1.73m^2); Glucose 139 mg/dL (74-106); Potassium 4.2 mmol/L (3.5-5.1); Sodium 137 mmol/L (136-145)
[2024-06-19 14:51] LABS: INR 1.01; Partial Thromboplastin Time 25.3 sec (22.3-36.2); Prothrombin Time 10.7 sec (9.0-11.6)
--- NOTE | 2024-06-19 17:06 | ECG_ITS ---
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
== END 2024-06-19 13:05 | disposition home or self-care (01) ==
LOC: PST 13:04
PROVIDERS: PCP Family Medicine; Visit Provider Podiatrist Foot & Ankle Surgery
DX: Z01.810 Encounter for preprocedural cardiovascular examination (principal); Z01.812 Encounter for preprocedural laboratory examination; E11.621 Type 2 diabetes mellitus with foot ulcer; L97.529 Non-pressure chronic ulcer of other part of left foot with unspecified severity; I25.10 Atherosclerotic heart disease of native coronary artery without angina pectoris
CPT/HCPCS: 71046; 80048; 85025; 85610; 85730; 93005

== ENCOUNTER 2024-06-19 17:04 | Emergency (ER) | payer MEDICARE, MEDICAID, SELFPAY ==
--- OUTSIDE RECORDS SUMMARY | 2024-06-19 17:18 | XMS_ITS | CCD ---
Author Organization [facility] CliniSyoh Care Team Providers Care Customer Support Agent Name Role Phone PHYSICIAN, DEFAULT Unavailable Unavailable PHYSICIAN, DEFAULT Unavailable Unavailable NADERER MATT Unavailable Unavailable PHYSICIAN, DEFAULT Unavailable Unavailable PHYSICIAN, DEFAULT Unavailable Unavailable NADLEER MATT Unavailable Unavailable Shayy Dela Cruz Unavailable [...] SHELMITH Attending Unavailable MALCOLM EVANS Attending Unavailable MaryNegran Unavailable Scally, Cathie Unavailable MD Shayy Dela Cruz Primary Care Provider [phone] MD Shayy Dela Cruz Attending Provider MD Shayy Dela Cruz Primary Care Provider MD Shayy Dela Cruz Attending Provider [phone] Scally, SUPERVISOR PLEATING Cathie C Attending Provider Scally, Cathie C Admitting Unavailable Scalcinthya, Cathie C Attending Unavailable Shayy Dela Cruz Admitting Unavailable Shayy Dela Cruz Primary Care Unavailable Shayy Dela Cruz Attending Unavailable Frangmc, Brittani Admitting Unavailable Frangmc Brittani Attending Unavailable Shayy Dela Cruz Primary Care Unavailable Unavailable Primary Care Provider UnavailNACHO [place] Attending Unavailable Allergies Allergy Classification Reported Allergen(s) Allergy Type Date of Onset Reaction(s) Facility (1 source) codeine Drug Allergy [address] [facility] Repository (20 sources) Latex; Translations: [LATEX] Drug allergy (disorder) 9 sores [address] skin [facility] (20 sources) Codeine; Translations: [CODEINE] Drug Allergy [address] [facility] Repository (19 sources) Latex Drug allergy 5 sores on skin [facility] Other (1 source) Codeine Drug Allergy [facility] Repository (1 source) atorvastatin; Translations: [ATORVASTATIN] Drug Allergy 3 [facility] (8 sources) cat dander Allergy to substance 4 Sneezing, Itching [facility] (8 sources) dog dander Allergy to substance 4 Sneezing, Itching [facility] (8 sources) ozempic Propensity to adverse reactions 4 Vomiting [facility] (1 source) Codeine Drug Allergy 4 [facility] Repository (1 source) Latex Drug allergy (disorder) 4 [facility] Repository (2 sources) Insulin Lispro; Translations: [INSULIN LISPRO] Drug Allergy 5 Rash [facility] (2 sources) tomato allergenic extract; Translations: [TOMATO] Drug Allergy 5 [facility] Medications Current Medications Medication Drug Class(es) Dates Sig (Normalized) Sig (Original) Albuterol Sulfate 108 (90 Base) MCG/ACT (6 sources) take 1 puff(s) by inhalation every four hours as needed Albuterol Sulfate 108 (90 Base) MCG/ACT 1 puff as needed Inhalation every 4 hrs Active Alcohol Swabs - (5 sources) Alcohol Swabs - as directed Active amoxicillin 875 mg / clavulanate 125 mg oral tablet (1 source) Penicillin-class Antibacterial Start: 06-07-2024 take 1 tablet by mouth once amoxicillin-pot clavulanate (AUGMENTIN) 875-125 mg per tablet Take 1 tablet by mouth every 12 (twelve) hours. 06/07/2024 Active Aspir-81 (12 sources) Aspir-81 Active aspirin [...] May, Active Blood-Glucose Meter,Continuo us (Dexcom G7 Scaffold Setter) misc (6 sources) Start: 12-13-2023 Blood-Glucose Meter,Continuous (Dexcom G7 Scaffold Setter) misc Active 0 .Route December 12, 2023 11:00pm As directed Start: 12-13-2023 Blood-Glucose Meter,Continuous (Dexcom G7 Scaffold Setter) misc Active 0 .Route December 13, 2023 12:00am As directed Start: 12-13-2023 Blood-Glucose Meter,Continuous (Dexcom G7 Scaffold Setter) misc Active 0 .ROUTE December 13, 2023 [...] Orally Once a day Active Dexcom G7 Scaffold Setter - (4 sources) Start: 06-03-19 24 Dexcom G7 Scaffold Setter - as directed as directed 4 x daily for 365 days E 11.65, Z 79.4 Jun, Active Dexcom G7 Sensor - (4 sources) Start: 06-03-19 24 Dexcom G7 Sensor - as directed in vitro every 10 days for 90 days E 11.65, Z79.4 02 Jun, 2023 Active esomeprazole 40 mg delayed release oral capsule (20 sources) Proton Pump Inhibitor Start: 03-09-20 take 1 capsule by mouth once daily Esomeprazole Magnesium 40 mg capsule,delayed release(DR/EC) Active 0 .ROUTE .COMPLEX March 09, 2024 9:43am TAKE ONE CAPSULE BY MOUTH DAILY Start: 02-06-2024 take 1 capsule by [facility] once daily Esomeprazole Magnesium Active 0 .ROUTE [...] 90 Each; Provider: Jose De Jesus Reyes fluticasone propionate 0.05 mg/actuat metered dose nasal spray (20 sources) Corticosteroid Start: 04-30-2024 take 2 spray(s) nasal route in the morning fluticasone propionate (FLONASE) 50 mcg/actuation nasal spray Administer 2 sprays into each nostril in the morning. 04/30/2024 Active Start: 02-07-2024 take 1 puff(s) by in halation twice [...] Lucas ( ) take 2 puff(s) by in halation in the morning FLOVENT HFA 110 mcg/actuation inhaler Inhale 2 puffs in the morning and 2 puffs before bedtime. Active take 2 puff(s) by mo uth twice [...] Jesus Lucas ( ) FreeStyle Amrik 3 [place] - (3 sources) Start: 06-06-2023 FreeStyle Libr e 3 [place] - as directed invitro 4 times daily [...] tablet Active 5 MG PO Twice daily 60 March 08, 2024 12:53pm take 5 mg [...] Continue; Provider: Jose De Jesus Reyes take 2 tablets by mo uth twice daily glipiZIDE 10 mg TAKE 2 (TWO) TABLET BY MOUTH TWO TIMES DAILY for 90 Active hydroCHLOROthiazide 12.5 mg oral capsule (7 sources) Thiazide Diuretic take 1 capsule by mouth every twenty-four hours hydroCHLOROthiazide 12.5 MG 1 capsule in the morning Orally Once a day Active 3 ml insulin glargine 300 unt/ml pen injector (19 sources) Insulin Analog Start: 2024 TOUJEO MAX U-300 SOLOSTAR 300 unit/mL (3 mL) insulin pen Inject 95 Unit under the skin in the morning. 05/24/2024 Active Toujeo SoloStar 300 UNIT/ML 78 u Subcutaneous [...] Continue; Provider: Jose De Jesus Reyes take 0.5 tablet by m outh in the morning metFORMIN (GLUCOPHAGE) 1000 mg tablet Apply 0.5 tablets (500 mg total) to the mouth or throat in the morning and 0.5 tablets (500 mg total) in the evening. Apply with meals. 250mg in am, 250mg in pm. Active take 1 tablet by bin th every [...] Leukotriene Receptor Antagonist Start: 07-06-19 End: 09-29-19 24 take 1 tablet by mouth once daily Montelukast (Singulair) 10 mg tablet Active 10 MG PO Daily September 29, 2023 12:39pm take 1 tablet by bni th every twenty-four hours Singulair 10 MG [...] 27, 2023 11:00pm September 29, 2023 12:40pm sulfamethoxazole 800 mg / trimethoprim 160 mg oral tablet (1 source) Dihydrofolate Reductase Inhibitor Antibacterial, Sulfonamide Antimicrobial Start: 06-07-2024 take 1 tablet by mouth once in the morning sulfamethoxazole-trimethoprim (BACTRIM DS) 800-160 mg per tablet Take 1 tablet by mouth in the morning and 1 tablet before bedtime. 06/07/2024 Active Completed/Discontinued Medications Medication Drug Class(es) Dates Sig (Normalized) Sig (Original) [id number] 200 actuat albuterol 0.09 mg/actuat metered dose [...] Jun, Not-Taking/PRN Blood-Glucose Meter,Continuous (Freestyle Amrik 3 [place]) misc (13 sources) Start: 07-28-2023 End: 12-13-2023 Blood-Glucose Meter,Continuous (Freestyle Amrik 3 [place]) misc Discontinued EACH .ROUTE .MEDSUPPLY July 27, 2023 11:00pm December 13, 2023 12:09pm As directed Start: 07-28-2023 End: 12-13-2023 Blood-Glucose Meter,Continuo us (Freestyle Amrik 3 [place]) misc Discontinued EACH .ROUTE .MEDSUPPLY July 28, 2023 12:00am December 13, 2023 1:09pm As directed Start: 07-28-2023 Blood-Glucose Meter,Continuous (Freestyle Amrik 3 [place]) misc Active EACH .ROUTE .MEDSUPPLY July 28, [...] Status: Taking; Provider: Sam Brand ( ) meloxicam 15 mg oral tablet (9 sources) [...] Status: Not-TakingundefinedPRN; Provider: Sam Brand ( ) tiZANidine 4 mg oral tablet (20 sources) Central alpha-2 Adrenergic Agonist Start: 07-06-2023 End: 07-19-2023 take 1 tablet by mouth three times daily as needed Tizanidine 4 mg tablet Discontinued 4 MG PO Three times daily July 06, 2023 12:00am July 19, 2023 10:08am FreeTextSi tablet as needed Orally Three times a day; Note: Source Status: Not-TakingundefinedPRN; Provider: [...] angina pectoris; Translations: [Atherosclerotic heart disease of [place] coronary artery without angina pectoris] Onset: 03-24-2022 [...] initial encounter for closed fracture] 07-19-2023 Episodic Gangrene (3 sources) Gangrene of toe of left foot; Translations: [Gangrene, not elsewhere classified] Onset: 06-14-2024 06-14-2024 Episodic Mycoses (18 sources) Candidiasis of mouth; Translations: [Candidal stomatitis] Episodic Nutritional deficiencies (20 sources) Vitamin D deficiency; Translations: [Vitamin D deficiency, unspecified] Onset: 02-23-2024 Chronic Osteoarthritis (1 source) Unspecified osteoarthritis, unspecified site; Translations: [UNSPECIFIED OSTEOARTHRITIS UNS SITE] Onset: 11-09-2021 Chronic Other aftercare (17 sources) 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; Translations: [Long-term (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 of insulin] Onset: 04-08-2022 Episodic Other aftercare (20 sources) Long-term current use of insulin; Translations: [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] 07-28-2023 Episodic Other [...] in thoracic spine] Episodic Unclassified (1 source) left 2nd, 3rd, 4th toes discolored, painful Onset: 06-14-2024 Viral infection (18 sources) Herpes labialis; Translations: [...] Onset: 04-08-2022 Episodic Other aftercare (1 source) [facility] (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; Translations: [AGENT CURRENT USE OF ASPIRIN] Onset: 04-08-2022 Episodic Other aftercare (1 source) terminal 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 (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 of oral hypoglycemic drugs; Translations: [SKILLED NURSING USE ORAL HYPOGLYCEMIC DX] Onset: 04-08-2022 Episodic Other aftercare (1 source) Other terminal 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 (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 therapy; Translations: [OTH SKILLED NURSING CURRENT DRUG THERAPY] Onset: 11-09-2021 Episodic Other [...] Basophils (Bld) [#/Vol] Automated basophil count 0.0-0.1 [facility] Basophils/100 WBC Auto (Bld) on 05-16-2024 Basophils/100 WBC (Bld) Automated basophil % 0.2-2.0 [facility] Eosinophils/100 WBC Auto (Bl d)on 05-16-2024 Eosinophils/100 WBC (Bld) Automated eosinophil % 0.9-7.0 [facility] Erythrocyte distribution wid th Auto (RBC) [Ratio]on 05-16-2024 Erythrocyte distribution width (RBC) [Ratio] Erythrocyte distribution width [Ratio] by Automated count 11.0-15.0 [facility] Estimated glomerular filtrat ion rate (GFR) non- Americanon 05-16-2024 GFR/1.73 sq M.predicted among non-blacks MDRD (S/P/Bld) [Vol rate/Area] Estimated glomerular filtration rate (GFR) non- Low >=60 mL/min/1.73m 2 [facility] Hematocrit Auto (Bld) [Volum e fraction]on 05-16-2024 Hematocrit (Bld) [Volume fraction] Hematocrit [Volume Fraction] of Blood by Automated count 36.0-48.0 [facility] Hemoglobin [Mass/volume] in Bloodon 05-16-2024 Hemoglobin (Bld) [Mass/Vol] Hemoglobin [Mass/volume] in Blood 12.0-16.0 [facility] Laboratory - Chemistry and C hemistry - challengeon 05-16-2024 Calcium [Mass/Vol] 9.1 mg/dL 8.5-10.1 [facility] Chloride [Moles/Vol] 104 mmol/L 98-107 [facility] CO2 [Moles/Vol] 30.6 mmol/L 21.0-32.0 [facility] Creatinine [Mass/Vol] 1.01 mg/dL 0.55-1.02 [facility] GFR/1.73 sq M.predicted MDRD (S/P/Bld) [Vol rate/Area] mL/min/{1.73_m2} >=60 mL/min/1.73m 2 [facility] Glucose [Mass/Vol] 206 mg/dL High 74-106 [facility] Potassium [Moles/Vol] 5.1 mmol/L 3.5-5.1 [facility] Sodium [Moles/Vol] 141 mmol/L 136-145 [facility] Urea nitrogen [Mass/Vol] 12.0 mg/dL 7.0-18.0 [facility] Urea nitrogen/Creatinine [Mass ratio] 11.9 mg/mg [facility] Laboratory - Hematology and Cell countson 05-16-2024 ESR (Bld) [Velocity] 28 mm/h <=30 [facility] Immature granulocytes/100 WBC (Bld) 0.3 % 0.0-0.5 [facility] Leukocytes [#/volume] correc alma delia for nucleated erythrocytes in Blood by Automated counon 05-16-2024 WBC corrected for nucl RBC Auto (Bld) [#/Vol] Leukocytes [#/volume] corrected for nucleated erythrocytes in Blood by Automated coun 4.0-11.0 [facility] Lymphocytes Auto (Bld) [#/Vo l]on 05-16-2024 Lymphocytes (Bld) [#/Vol] Lymphocytes [#/volume] in Blood by Automated count 1.2-3.8 [facility] Lymphocytes/100 WBC Auto (Bl d)on 05-16-2024 Lymphocytes/100 WBC (Bld) Lymphocytes/100 leukocytes in Blood by Automated count 20.5-60.0 [facility] MCH Auto (RBC) [Entitic mass ]on 05-16-2024 MCH (RBC) [Entitic mass] MCH [Entitic mass] by Automated count 26.7-34.0 [facility] MCHC Auto (RBC) [Mass/Vol]on 05-16-2024 MCHC (RBC) [Mass/Vol] MCHC [Mass/volume] by Automated count 29.9-35.2 [facility] MCV Auto (RBC) [Entitic vol] on 05-16-2024 MCV (RBC) [Entitic vol] MCV [Entitic volume] by Automated count 81.0-99.0 [facility] Monocytes Auto (Bld) [#/Vol] on 05-16-2024 Monocytes (Bld) [#/Vol] Automated blood monocyte count 0.3-0.8 [facility] Monocytes/100 WBC Auto (Bld) on 05-16-2024 Monocytes/100 WBC (Bld) Automated monocyte % 1.7-12.0 [facility] Neutrophils Auto (Bld) [#/Vo l]on 05-16-2024 Neutrophils (Bld) [#/Vol] Neutrophils [#/volume] in Blood by Automated count 1.4-6.5 [facility] Neutrophils/100 WBC Auto (Bl d)on 05-16-2024 Neutrophils/100 WBC (Bld) Automated neutrophil % 43.0-75.0 [facility] No Panel Informationon 05-16 C-Reactive Protein, Quantitative 1.26 mg/dL High <=0.50 [facility] Eosinophils # (Auto) 0.3 10 3/uL 0.0-0.7 [facility] Immature Granulocyte # (Auto) 0.02 10 3/uL 0.00-0.03 [facility] Platelet mean volume Auto (B ld) [Entitic vol]on 05-16-2024 Platelet mean volume (Bld) [Entitic vol] Platelet mean volume [Entitic volume] in Blood by Automated count 9.5-13.5 [facility] Platelets Auto (Bld) [#/Vol] on 05-16-2024 Platelets (Bld) [#/Vol] Platelets [#/volume] in Blood by Automated count 150-450 [facility] RBC Auto (Bld) [#/Vol]on RBC (Bld) [#/Vol] Erythrocytes [#/volu me] in Blood by Automated count 4.20-5.40 [facility] Serum or plasma anion gap de terminationon 05-16-2024 Anion gap [Moles/Vol] Serum or plasma anion gap determination [facility] Creatinine [Mass/volume] in UrineOrdered By: Cathie Vargas on 02-23-2024 Creatinine (U) [Mass/Vol] 28.00 mg/dL [facility] Comment on above: No reference range e stablished MicroAlb Creat Ratio,Uon Creatinine, Urine (Random) 28.00 mg/dL Normal [facility] Comment on above: Result Comment: No r eference range established Performed By: #### U RMACRERAT #### [facility] [address] [place] [address] Microalbumin/Creati nine Ratio Not performed Normal 0.0-30.0 [facility] Comment on above: Result Comment: PERF ORMED BY: [place] [address] PATHOLOGIST SUSTAINABLE DEVELOPMENT POLICY ANALYST RUBINA RICCI M.D. Performed By: #### U RMACRERAT #### [facility] [address] [place] [address] [place] Microalbumin [Mass/volume] i n UrineOrdered By: Cathie Vargas on 02-23-2024 Albumin DL <= 20 mg/L (U) [Mass/Vol] mg/dL Normal 0.0-1.8 [facility] Comment on above: Performed By: #### U RMACRERAT #### [facility] [address] Urine microalbumin/creatinin e mass ratioOrdered By: Cathie Vargas on 02-23-2024 Albumin/Creatinine DL <= 20 mg/L (U) [Mass ratio] TNP [facility] Comment on above: Test not performed HbA1c HPLC (Bld) [Mass fract ion]on 12-13-2023 HbA1c (Bld) [Mass fraction] 9.9 % [facility] No Panel Informationon 12-12 Bedside Glucose 118 [facility] No Panel Informationon 09-28 Bedside Glucose 278 [facility] HbA1c HPLC (Bld) [Mass fract ion]on 07-28-2023 HbA1c (Bld) [Mass fraction] 10.3 % [facility] No Panel Informationon 07-27 Bedside Glucose 126 [facility] Basophils Auto (Bld) [#/Vol] on 07-12-2023 Basophils (Bld) [#/Vol] 0.0 10 3/uL 0.0-0.1 [facility] Basophils/100 WBC Auto (Bld) on 07-12-2023 Basophils/100 WBC (Bld) 0.5 % 0.2-2.0 [facility] Eosinophils/100 WBC Auto (Bl d)on 07-12-2023 Eosinophils/100 WBC (Bld) 1.5 % 0.9-7.0 [facility] Erythrocyte distribution wid th Auto (RBC) [Ratio]on 07-12-2023 Erythrocyte distribution width (RBC) [Ratio] 12.7 % 11.0-15.0 [facility] Estimated glomerular filtrat ion rate (GFR) non- Americanon 07-12-2023 GFR/1.73 sq M.predicted among non-blacks MDRD (S/P/Bld) [Vol rate/Area] mL/min/{1.73_m2} >=60 [facility] Hematocrit Auto (Bld) [Volum e fraction]on 07-12-2023 Hematocrit (Bld) [Volume fraction] 42.8 % 36.0-48.0 [facility] Hemoglobin [Mass/volume] in Bloodon 07-12-2023 Hemoglobin (Bld) [Mass/Vol] 14.3 g/dL 12.0-16.0 [facility] Laboratory - Chemistry and C hemistry - challengeon 07-12-2023 Calcium [Mass/Vol] 9.1 mg/dL 8.5-10.1 [facility] Chloride [Moles/Vol] 100 mmol/L 98-107 [facility] CO2 [Moles/Vol] 26.1 mmol/L 21.0-32.0 [facility] Creatinine [Mass/Vol] 0.78 mg/dL 0.55-1.02 [facility] GFR/1.73 sq M.predicted MDRD (S/P/Bld) [Vol rate/Area] mL/min/{1.73_m2} >=60 [facility] Glucose [Mass/Vol] 215 mg/dL 74-106 [facility] Potassium [Moles/Vol] 4.0 mmol/L 3.5-5.1 [facility] Sodium [Moles/Vol] 137 mmol/L 136-145 [facility] Urea nitrogen [Mass/Vol] 12.0 mg/dL 7.0-18.0 [facility] Urea nitrogen/Creatinine [Mass ratio] 15.4 mg/mg [facility] Laboratory - Hematology and Cell countson 07-12-2023 Immature granulocytes/100 WBC (Bld) 0.1 % 0.0-0.5 [facility] Leukocytes [#/volume] correc alma delia for nucleated erythrocytes in Blood by Automated counon 07-12-2023 WBC corrected for nucl RBC Auto (Bld) [#/Vol] 7.8 10 3/uL 4.0-11.0 [facility] Lymphocytes Auto (Bld) [#/Vo l]on 07-12-2023 Lymphocytes (Bld) [#/Vol] 2.7 10 3/uL 1.2-3.8 [facility] Lymphocytes/100 WBC Auto (Bl d)on 07-12-2023 Lymphocytes/100 WBC (Bld) 34.1 % 20.5-60.0 [facility] MCH Auto (RBC) [Entitic mass ]on 07-12-2023 MCH (RBC) [Entitic mass] 29.2 pg 26.7-34.0 [facility] MCHC Auto (RBC) [Mass/Vol]on 07-12-2023 MCHC (RBC) [Mass/Vol] 33.4 g/dL 29.9-35.2 [facility] MCV Auto (RBC) [Entitic vol] on 07-12-2023 MCV (RBC) [Entitic vol] 87.5 fL 81.0-99.0 [facility] Monocytes Auto (Bld) [#/Vol] on 07-12-2023 Monocytes (Bld) [#/Vol] 0.5 10 3/uL 0.3-0.8 [facility] Monocytes/100 WBC Auto (Bld) on 07-12-2023 Monocytes/100 WBC (Bld) 6.4 % 1.7-12.0 [facility] Neutrophils Auto (Bld) [#/Vo l]on 07-12-2023 Neutrophils (Bld) [#/Vol] 4.5 10 3/uL 1.4-6.5 [facility] Neutrophils/100 WBC Auto (Bl d)on 07-12-2023 Neutrophils/100 WBC (Bld) 57.4 % 43.0-75.0 [facility] No Panel Informationon 07-11 Eosinophils # (Auto) 0.1 10 3/uL 0.0-0.7 [facility] Immature Granulocyte # (Auto) 0.01 10 3/uL 0.00-0.03 [facility] Platelet mean volume Auto (B ld) [Entitic vol]on 07-12-2023 Platelet mean volume (Bld) [Entitic vol] 10.9 fL 9.5-13.5 [facility] Platelets Auto (Bld) [#/Vol] on 07-12-2023 Platelets (Bld) [#/Vol] 259 10 3/uL 150-450 [facility] RBC Auto (Bld) [#/Vol]on RBC (Bld) [#/Vol] 4.89 10 6/uL 4.20-5.40 [facility] Serum or plasma anion gap de terminationon 07-12-2023 Anion gap [Moles/Vol] 14.9 mmol/L [facility] Glucose - FINGER STICKon Glucose [Mass/Vol] 360 mg/dL [facility] Other Office Visiton 12-13-2022 Follow-up visit [id number] Arlette Ramos 1970 F Date Provider Department Center 12/13/2022 [id number] MOROCHO [facility] No family history on file Level of Service:[id number] DC OFFICE/OUTPATIENT ESTABLISHED LOW MDM 20-29 MIN Reason for Visit and Comments: Follow-up [126199] - [address] [facility] CBC AUTO DIFFon 08-27-2022 BASO # 0.0 103/ul Normal 0.0-0.1 [facility] Comment on above: Performed By: #### C BC #### [facility] [address] [place] [address] Dr. Sarah Church Basophils/100 WBC (Bld) 0.5 % Normal 0.2-2.0 [facility] Comment on above: Performed By: #### C BC #### [facility] [address] [place] [address] Dr. Sarah Church EO # 0.2 103/ul Normal 0.0-0.7 [facility] Comment on above: Performed By: #### C BC #### [facility] [address] [place] [address] Dr. Sarah Church Eosinophils/100 WBC (Bld) 2.2 % Normal 0.9-7.0 [facility] Comment on above: Performed By: #### C BC #### [facility] [address] [place] [address] Dr. Sarah Church Erythrocyte distribution width (RBC) [Ratio] 12.5 % Normal 11.0-15.0 [facility] Comment on above: Performed By: #### C BC #### [facility] [address] [place] [address] Dr. Sarah Church Hematocrit (Bld) [Volume fraction] 44.1 % Normal 36.0-48.0 [facility] Comment on above: Performed By: #### C BC #### [facility] [address] [place] [address] Dr. Sarah Church Hemoglobin (Bld) [Mass/Vol] 15.1 g/dL Normal 12.0-16.0 [facility] Comment on above: Performed By: #### C BC #### [facility] [address] [place] [address] Dr. Sarah Church IG # 0.02 10e3/ul Normal 0.00-0.03 [facility] Comment on above: Performed By: #### C BC #### [facility] [address] [place] [address] Dr. Sarah Church IG % 0.2 % Normal 0.0-0.5 [facility] Comment on above: Performed By: #### C BC #### [facility] [address] [place] [address] Dr. Sarah Church LYMPH # 2.9 103/ul Normal 1.2-3.8 [facility] Comment on above: Performed By: #### C BC #### [facility] [address] [place] [address] Dr. Sarah Church Lymphocytes/100 WBC (Bld) 33.4 % Normal 20.5-60.0 [facility] Comment on above: Performed By: #### C BC #### [facility] [address] [place] [address] Dr. Sarah Church MANUAL DIFF REQ NO Normal [facility] Comment on above: Performed By: #### C BC #### [facility] [address] [place] [address] Dr. Sarah Church MCH (RBC) [Entitic mass] 29.1 pg Normal 26.7-34.0 [facility] Comment on above: Performed By: #### C BC #### [facility] [address] [place] [address] Dr. Sarah Church MCHC (RBC) [Mass/Vol] 34.2 g/dL Normal 29.9-35.2 [facility] Comment on above: Performed By: #### C BC #### [facility] [address] [address] [address] Sarah Church MCV (RBC) [Entitic vol] 85.0 fL Normal 81.0-99.0 [facility] Comment on above: Performed By: #### C BC #### [facility] [address] [address] [address] Sarah Church MONO # 0.6 103/ul Normal 0.3-0.8 [facility] Comment on above: Performed By: #### C BC #### [facility] [address] [place] [address] Dr. Sarah Church Monocytes/100 WBC (Bld) 6.8 % Normal 1.7-12.0 [facility] Comment on above: Performed By: #### C BC #### [facility] [address] [place] [address] Dr. Sarah Church NEUT # 4.9 103/ul Normal 1.4-6.5 [facility] Comment on above: Performed By: #### C BC #### [facility] [address] [place] [address] Dr. Sarah Church Neutrophils/100 WBC (Bld) 56.9 % Normal 43.0-75.0 [facility] Comment on above: Performed By: #### C BC #### [facility] [address] [place] [address] Dr. Sarah Church Platelet mean volume (Bld) [Entitic vol] 10.8 fL Normal 9.5-13.5 [facility] [facility] Comment on above: Performed By: #### C BC #### [facility] [address] [place] [address] Dr. Sarah Church PLT 276 103/ul Normal 150-450 [facility] Comment on above: Performed By: #### C BC #### [facility] [address] [place] [address] Dr. Sarah Church RBC 5.19 106/ul Normal 4.20-5.40 [facility] Comment on above: Performed By: #### C BC #### [facility] [address] [address] [address] Sarah Church WBC 8.6 103/ul Normal 4.0-11.0 [facility] Comment on above: Performed By: #### C BC #### [facility] [address] [address] [address] Sarah Church LIPID PROFILEon 08-27-2022 CHOL-HDL RATIO NORM SEE BELOW Normal [facility] Comment on above: Result Comment: 3.3 - 4.4 LOW RISK 4.4 - 7.1 AVERAGE RISK 7.1 - 11.0 MODERATE RISK >11.0 HIGH RISK Performed By: #### L IPID, CMP #### [facility] [address] [place] [address] Dr. Sarah Church Cholesterol [Mass/Vol] 110 mg/dL Normal <=200 [facility] Comment on above: Performed By: #### L IPID, CMP #### [facility] [address] [place] [address] Dr. Sarah Church Cholesterol in HDL [Mass/Vol] 33 mg/dL Critically low 40-60 [facility] Comment on above: Performed By: #### L IPID, CMP #### [facility] [address] [place] [address] Dr. Sarah Church Cholesterol in LDL [Mass/Vol] 58.0 mg/dL Normal [facility] Comment on above: Performed By: #### L IPID, CMP #### [facility] [address] [address] [address] Sarah Church Cholesterol.total/C holesterol in HDL [Mass ratio] 3.3 {ratio} Normal [facility] Comment on above: Performed By: #### L IPID, CMP #### [facility] [address] [place] [address] Dr. Sarah Church HDL NORMAL > or = 60 mg/dl - LO W CARDIOVASCULAR RISK <40 mg/dl - HIGH CARDIOVASCULAR RISK Normal [facility] Comment on above: Performed By: #### L IPID, CMP #### [facility] [address] [place] [address] Dr. Sarah Church LDL CALC NORMAL SEE BELOW Normal [facility] Comment on above: Result Comment: <100 mg/dl OPTIMAL 100 - 129 mg/dl NEAR OR ABOVE OPTIMAL 130 - 159 mg/dl BORDERLINE HIGH 160 - 189 mg/dl HIGH >190 mg/dl VERY HIGH Performed By: #### L IPID, CMP #### [facility] [address] [address] [address] Sarah Church Triglyceride [Mass/Vol] 95 mg/dL Normal <=150 [facility] Comment on above: Performed By: #### L IPID, CMP #### [facility] [address] [address] [address] Sarah Church VLDL CALC 19.0 mg/dL Normal [facility] Comment on above: Performed By: #### L IPID, CMP #### [facility] [address] [place] [address] Dr. Sarah Church PROF 14(COMP METB)on 023 Albumin [Mass/Vol] 3.3 g/dL Critically low 3.4-5.0 [facility] Comment on above: Performed By: #### L IPID, CMP #### [facility] [address] [address] [address] Sarah Church Albumin/Globulin [Mass ratio] 0.8 {ratio} Normal [facility] Comment on above: Performed By: #### L IPID, CMP #### [facility] [address] [address] [address] Sarah Church ALP [Catalytic activity/Vol] 100 U/L Normal 46-116 [facility] Comment on above: Performed By: #### L IPID, CMP #### [facility] [address] [address] [address] Sarah Church ALT [Catalytic activity/Vol] 74 U/L Critically high 14-59 [facility] Comment on above: Performed By: #### L IPID, CMP #### [facility] [address] [address] [address] Sarah Church Anion gap [Moles/Vol] 13.2 mmol/L Normal [facility] Comment on above: Performed By: #### L IPID, CMP #### [facility] [address] [address] [address] Sarah Church AST [Catalytic activity/Vol] 42 U/L Critically high 15-37 [facility] Comment on above: Performed By: #### L IPID, CMP #### [facility] [address] [address] [address] Sarah Church Bilirubin [Mass/Vol] 0.4 mg/dL Normal 0.2-1.0 [facility] Comment on above: Performed By: #### L IPID, CMP #### [facility] [address] [address] [address] Sarah Church Calcium [Mass/Vol] 9.2 mg/dL Normal 8.5-10.1 [facility] Comment on above: Performed By: #### L IPID, CMP #### [facility] [address] [place] [address] Dr. Sarah Church Chloride [Moles/Vol] 99 mmol/L Normal 98-107 [facility] Comment on above: Performed By: #### L IPID, CMP #### [facility] [address] [address] [address] Sarah Church CO2 [Moles/Vol] 30.4 mmol/L Normal 21.0-32.0 [facility] Comment on above: Performed By: #### L IPID, CMP #### [facility] [address] [place] [address] Dr. Sarah Church Creatinine [Mass/Vol] 0.78 mg/dL Normal 0.55-1.02 [facility] Comment on above: Performed By: #### L IPID, CMP #### [facility] [address] [place] [address] Dr. Sarah Church EGFR-AF GERMAN >60 Normal >=60 [facility] Comment on above: Performed By: #### L IPID, CMP #### [facility] [address] [place] [address] Dr. Sarah Church EGFR-NON AF GERMAN >60 Normal >=60 [facility] Comment on above: Performed By: #### L IPID, CMP #### [facility] [address] [address] [address] Sarah Church Globulin (S) [Mass/Vol] 4.0 g/dL Normal [facility] Comment on above: Performed By: #### L IPID, CMP #### [facility] [address] [address] [address] Sarah Church Glucose [Mass/Vol] 255 mg/dL Critically high 74-106 [facility] Comment on above: Performed By: #### L IPID, CMP #### [facility] [address] [address] [address] Sarah Church Potassium [Moles/Vol] 3.6 mmol/L Normal 3.5-5.1 [facility] Comment on above: Performed By: #### L IPID, CMP #### [facility] [address] [place] [address] Dr. Sarah Church Protein [Mass/Vol] 7.3 g/dL Normal 6.4-8.2 [facility] Comment on above: Performed By: #### L IPID, CMP #### [facility] [address] [address] [address] Sarah Church Sodium [Moles/Vol] 139 mmol/L Normal 136-145 [facility] Comment on above: Performed By: #### L IPID, CMP #### [facility] [address] [address] [address] Sarah Church Urea nitrogen [Mass/Vol] 8.0 mg/dL Normal 7.0-18.0 [facility] Comment on above: Performed By: #### L IPID, CMP #### [facility] [address] [place] [address] Dr. Sarah Church Urea nitrogen/Creatinine [Mass ratio] 10.3 mg/mg Normal [facility] Comment on above: Performed By: #### L IPID, CMP #### [facility] [address] [place] [address] Dr. Sarah Church 37on 08-10-2022 37 -Start hydrochlorothiazide 12.5 mg in the morning -Check labs 1 week after starting new medication -Take blood pressure to appointment with Dr. Dela Cruz for correlation Normal [facility] Office Visiton 08-10-2022 Follow-up visit [id number] Arlette Ramos 1970 F Date Provider Department Center 08/10/2022 [id number] BENITES [facility] [place] No family history on file Level of Service:68867 DC OFFICE/OUTPATIENT ESTABLISHED MOD MDM 30-39 MIN Reason for Visit and Comments: Coronary Artery Disease [187] Hypertension [480394] Normal [facility] MG MAMM SCREEN 3D ROB CADon 07-20-2022 MG MAMM SCREEN 3D ROB CAD Patient: ZOILA RAMOS Exam Date: 07/20/2022 : 1970 Gender:F Ordering : DR SHAYY DELA CRUZ M.D. Admission #: [id number] Family : Order #: [id number] CLICK HERE TO VIEW EXAM RADIOLOGY REPORT PROCEDURE: MAMMOGRAM SCREENING 3D BILATERAL CAD COMPARISON: MAMMO ROB SCREEN W CAD DIG, 05/16/2012. INDICATIONS: Screening mammography Calculator Name NCI Breast Cancer Risk Assessment Tool 5 Year Breast Cancer Risk 1.20% Lifetime Breast Cancer Risk 10.80% Personal Breast Cancer No Personal Ovarian Cancer No Treatments None Family Cancers None LOCATION: [facility] BREAST COMPOSITION: Almost entirely fatty. FINDINGS: DIAGNOSTIC [...] Lan M.D. on 07/21/2022 at 08:24 Normal [facility] PROF CHEM 8 (BAS METB)on Anion gap [Moles/Vol] 14.5 mmol/L Normal [facility] Comment on above: Performed By: #### B MP #### [facility] [address] [address] [address] Sarah Church Calcium [Mass/Vol] 9.8 mg/dL Normal 8.5-10.1 [facility] Comment on above: Performed By: #### B MP #### [facility] [address] [place] [address] Dr. Sarah Church Chloride [Moles/Vol] 99 mmol/L Normal 98-107 [facility] Comment on above: Performed By: #### B MP #### [facility] [address] [address] [address] Sarah Church CO2 [Moles/Vol] 27.2 mmol/L Normal 21.0-32.0 [facility] Comment on above: Performed By: #### B MP #### [facility] [address] [place] [address] Dr. Sarah Church Creatinine [Mass/Vol] 0.80 mg/dL Normal 0.55-1.02 [facility] Comment on above: Performed By: #### B MP #### [facility] [address] [place] [address] Dr. Sarah Church EGFR-AF GERMAN >60 Normal >=60 [facility] Comment on above: Performed By: #### B MP #### [facility] [address] [place] [address] Dr. Sarah Church EGFR-NON AF GERMAN >60 Normal >=60 [facility] Comment on above: Performed By: #### B MP #### [facility] [address] [place] [address] Dr. Sarah Church Glucose [Mass/Vol] 458 mg/dL Critically high 74-106 [facility] Comment on above: Performed By: #### B MP #### [facility] [address] [address] [address] Sarah Church Potassium [Moles/Vol] 4.7 mmol/L Normal 3.5-5.1 [facility] Comment on above: Performed By: #### B MP #### [facility] [address] [place] [address] Dr. Sarah Church Sodium [Moles/Vol] 136 mmol/L Normal 136-145 [facility] Comment on above: Performed By: #### B MP #### [facility] [address] [address] [address] Sarah Church Urea nitrogen [Mass/Vol] 15.0 mg/dL Normal 7.0-18.0 [facility] Comment on above: Performed By: #### B MP #### [facility] [address] [address] [address] Sarah Church Urea nitrogen/Creatinine [Mass ratio] 18.8 mg/mg Normal [facility] Comment on above: Performed By: #### B MP #### [facility] [address] [address] [address] Sarah Church Orders Onlyon 06-04-2022 Orders Only [id number] Arlette Ramos 1970 F Date Provider Department Center 06/04/2022 JESSICA MAX MADLEYN Robert [facility] No family history on file Normal [facility] 36on 06-01-2022 36 Patient called and [...] high cholesterol . HELP!! lol Normal [facility] Orders Onlyon 06-01-2022 Orders Only [id number] Arlette Ramos 1970 F Date Provider Department Center 06/01/[address] No family history on file [facility] 36on 05-28-2022 36 Spoke with flaca she states to call in script of losartan [address] [facility] GLYCOHEMOGLOBIN A1Con 2022 ADA RECOMMENDATION SEE BELOW Normal [facility] Comment on above: Result Comment: ADA RECOMMENDED LIMIT 4.0 - 6.0 ADA THERAPEUTIC TARGET < 7.0 ACTION SUGGESTED > 7.0 Performed By: #### A 1C ####[facility] [address] [place], [place] [address]YcCoretta Church Glucose [Mass/Vol] 266 mg/dL Normal [facility] Comment on above: Performed By: #### A 1C ####[facility] [address] [place], [place] [address]WmCoretta Church HbA1c (Bld) [Mass fraction] 10.9 % Critically high 4.5-6.2 [facility] Comment on above: Performed By: #### A 1C ####[facility] [address] [place], [place] [address]KwCoretta Church Office Visiton 05-19-2022 Follow-up visit [id number] Arlette Ramos 1970 F Date Provider Department Center 05/19/2022 MALCOLM SCHAFER [facility] [place] No family history on file Level of Service:27696 DC OFFICE/OUTPATIENT ESTABLISHED MOD MDM 30-39 MIN Reason for Visit and Comments: Coronary Artery Disease [187] Hyperlipidemia [182] Normal [facility] XR HIP RT 2 3V W [...] by: JAVAD ROB Date: 2022-04-06 21:15 Normal [facility] CBC AUTO DIFFon 11-05-2021 BASO # 0.1 103/ul Normal 0.0-0.1 [facility] Comment on above: Performed By: #### C BC #### [facility] [id number] Sarah Church Basophils/100 WBC (Bld) 0.4 % Normal 0.2-2.0 [facility] Comment on above: Performed By: #### C BC #### [facility] [address] [address] [address] Sarah Church EO # 0.2 103/ul Normal 0.0-0.7 [facility] Comment on above: Performed By: #### C BC #### [facility] [address] [place] [address] Dr. Sarah Church Eosinophils/100 WBC (Bld) 1.3 % Normal 0.9-7.0 [facility] Comment on above: Performed By: #### C BC #### [facility] [address] [place] [address] Dr. Sarah Church Erythrocyte distribution width (RBC) [Ratio] 12.3 % Normal 11.0-15.0 [facility] Comment on above: Performed By: #### C BC #### [facility] [address] [place] [address] Dr. Sarah Church Hematocrit (Bld) [Volume fraction] 43.1 % Normal 36.0-48.0 [facility] Comment on above: Performed By: #### C BC #### [facility] [address] [place] [address] Dr. Sarah Church Hemoglobin (Bld) [Mass/Vol] 14.6 g/dL Normal 12.0-16.0 [facility] Comment on above: Performed By: #### C BC #### [facility] [address] [place] [address] Dr. Sarah Church IG # 0.04 10e3/ul Critically high 0.00-0.03 [facility] Comment on above: Performed By: #### C BC #### [facility] [address] [place] [address] Dr. Sarah Church IG % 0.3 % Normal 0.0-0.5 [facility] Comment on above: Performed By: #### C BC #### [facility] [address] [place] [address] Dr. Sarah Church LYMPH # 1.6 103/ul Normal 1.2-3.8 [facility] Comment on above: Performed By: #### C BC #### [facility] [address] [place] [address] Dr. Sarah Church Lymphocytes/100 WBC (Bld) 12.5 % Critically low 20.5-60.0 [facility] Comment on above: Performed By: #### C BC #### [facility] [address] [place] [address] Dr. Sarah Church MANUAL DIFF REQ NO Normal [facility] Comment on above: Performed By: #### C BC #### [facility] [address] [place] [address] Dr. Sarah Church MCH (RBC) [Entitic mass] 29.4 pg Normal 26.7-34.0 [facility] Comment on above: Performed By: #### C BC #### [facility] [address] [place] [address] Dr. Sarah Church MCHC (RBC) [Mass/Vol] 33.9 g/dL Normal 29.9-35.2 [facility] Comment on above: Performed By: #### C BC #### [facility] [address] [place] [address] Dr. Sarah Church MCV (RBC) [Entitic vol] 86.7 fL Normal 81.0-99.0 [facility] Comment on above: Performed By: #### C BC #### [facility] [address] [place] [address] Dr. Sarah Church MONO # 1.0 103/ul Critically high 0.3-0.8 [facility] Comment on above: Performed By: #### C BC #### [facility] [address] [place] [address] Dr. Sarah Church Monocytes/100 WBC (Bld) 7.7 % Normal 1.7-12.0 [facility] Comment on above: Performed By: #### C BC #### [facility] [address] [place] [address] Dr. Sarah Church NEUT # 9.6 103/ul Critically high 1.4-6.5 [facility] Comment on above: Performed By: #### C BC #### [facility] [address] [place] [address] Dr. Sarah Church Neutrophils/100 WBC (Bld) 77.8 % Critically high 43.0-75.0 [facility] Comment on above: Performed By: #### C BC #### [facility] [address] [address] [address] Sarah Church Platelet mean volume (Bld) [Entitic vol] 11.0 fL Normal 9.5-13.5 [facility] Comment on above: Performed By: #### C BC #### [facility] [address] [address] [address] Sarah Church PLT 220 103/ul Normal 150-450 [facility] Comment on above: Performed By: #### C BC #### [facility] [address] [address] [address] Sarah Church RBC 4.97 106/ul Normal 4.20-5.40 [facility] Comment on above: Performed By: #### C BC #### [facility] [address] [address] [address] Sarah Church WBC 12.4 103/ul Critically high 4.0-11.0 [facility] Comment on above: Performed By: #### C BC #### [facility] [address] [address] [address] Sarah Church GROUP A STREP CULTUREon S. pyogenes Ag Ql (Unsp spec) Culture Observations: NEGATIVE FOR GROUP A STREPTOCOCCUS. Normal [facility] Comment on above: Performed By: #### G RASTCX, SSCRN ####[facility] [address] [address]Dr. Sarah Church POINT OF CARE GLUCOSEon Glucose [Mass/Vol] 214 mg/dL Critically high 74-106 [facility] Comment on above: Performed By: #### P OCGLUC #### [facility] [address] [address] [address] Sarah Church STREPT SCREENon 11-05-2021 STREP SCREEN A Negative Normal NEGATIVE [facility] Comment on above: Performed By: #### G RASTCX, SSCRN ####[facility] [address] [address]Dr. Sarah Church CBC AUTO DIFFon 10-16-2021 BASO # 0.1 103/ul Normal 0.0-0.1 [facility] Comment on above: Performed By: #### C BC #### [facility] [address] [place] [address] Dr. Sarah Church Basophils/100 WBC (Bld) 0.8 % Normal 0.2-2.0 [facility] Comment on above: Performed By: #### C BC #### [facility] [address] [place] [address] Dr. Sarah Church EO # 0.3 103/ul Normal 0.0-0.7 [facility] Comment on above: Performed By: #### C BC #### [facility] [address] [place] [address] Dr. Sarah Church Eosinophils/100 WBC (Bld) 3.4 % Normal 0.9-7.0 [facility] Comment on above: Performed By: #### C BC #### [facility] [address] [place] [address] Dr. Sarah Church Erythrocyte distribution width (RBC) [Ratio] 12.6 % Normal 11.0-15.0 [facility] Comment on above: Performed By: #### C BC #### [facility] [address] [place] [address] Dr. Sarah Church Hematocrit (Bld) [Volume fraction] 45.4 % Normal 36.0-48.0 [facility] Comment on above: Performed By: #### C BC #### [facility] [address] [place] [address] Dr. Sarah Church Hemoglobin (Bld) [Mass/Vol] 15.0 g/dL Normal 12.0-16.0 [facility] Comment on above: Performed By: #### C BC #### [facility] [address] [place] [address] Dr. Sarah Church IG # 0.02 10e3/ul Normal 0.00-0.03 [facility] Comment on above: Performed By: #### C BC #### [facility] [address] [place] [address] Dr. Sarah Church IG % 0.2 % Normal 0.0-0.5 [facility] Comment on above: Performed By: #### C BC #### [facility] [address] [place] [address] Dr. Sarah Church LYMPH # 2.7 103/ul Normal 1.2-3.8 [facility] Comment on above: Performed By: #### C BC #### [facility] [address] [place] [address] Dr. Sarah Church Lymphocytes/100 WBC (Bld) 31.0 % Normal 20.5-60.0 [facility] Comment on above: Performed By: #### C BC #### [facility] [address] [place] [address] Dr. Sarah Church MANUAL DIFF REQ NO Normal [facility] Comment on above: Performed By: #### C BC #### [facility] [address] [place] [address] Dr. Sarah Church MCH (RBC) [Entitic mass] 29.3 pg Normal 26.7-34.0 [facility] Comment on above: Performed By: #### C BC #### [facility] [address] [place] [address] Dr. Sarah Church MCHC (RBC) [Mass/Vol] 33.0 g/dL Normal 29.9-35.2 [facility] Comment on above: Performed By: #### C BC #### [facility] [address] [place] [address] Dr. Sarah Church MCV (RBC) [Entitic vol] 88.7 fL Normal 81.0-99.0 [facility] Comment on above: Performed By: #### C BC #### [facility] [address] [place] [address] Dr. Sarah Church MONO # 0.6 103/ul Normal 0.3-0.8 [facility] Comment on above: Performed By: #### C BC #### [facility] [address] [place] [address] Dr. Sarah Church Monocytes/100 WBC (Bld) 6.5 % Normal 1.7-12.0 [facility] Comment on above: Performed By: #### C BC #### [facility] [address] [address] [address] Sarah Church NEUT # 5.0 103/ul Normal 1.4-6.5 [facility] Comment on above: Performed By: #### C BC #### [facility] [address] [address] [address] Sarah Church Neutrophils/100 WBC (Bld) 58.1 % Normal 43.0-75.0 [facility] Comment on above: Performed By: #### C BC #### [facility] [address] [address] [address] Sarah Church Platelet mean volume (Bld) [Entitic vol] 11.0 fL Normal 9.5-13.5 [facility] Comment on above: Performed By: #### C BC #### [facility] [address] [place] [address] Dr. Sarah Church PLT 226 103/ul Normal 150-450 [facility] Comment on above: Performed By: #### C BC #### [facility] [address] [address] [address] Sarah Church RBC 5.12 106/ul Normal 4.20-5.40 [facility] Comment on above: Performed By: #### C BC #### [facility] [address] [place] [address] Dr. Sarah Church WBC 8.6 103/ul Normal 4.0-11.0 [facility] Comment on above: Performed By: #### C BC #### [facility] [address] [place] [address] Dr. Sarah Church GLYCOHEMOGLOBIN A1Con 2021 ADA RECOMMENDATION SEE BELOW Normal [facility] Comment on above: Result Comment: ADA RECOMMENDED LIMIT 4.0 - 6.0 ADA THERAPEUTIC TARGET < 7.0 ACTION SUGGESTED > 7.0 Performed By: #### A 1C ####[facility] [address] [address]Dr. Sarah Church Glucose [Mass/Vol] 275 mg/dL Normal [facility] Comment on above: Performed By: #### A 1C ####[facility] [address] [id number][address] Sarah Church HbA1c (Bld) [Mass fraction] 11.2 % Critically high 4.5-6.2 [facility] Comment on above: Performed By: #### A 1C ####[facility] [address] [id number][address] Sarah Church LIPID PROFILEon 10-16-2021 CHOL-HDL RATIO NORM SEE BELOW Normal [facility] Comment on above: Result Comment: 3.3 - 4.4 LOW RISK 4.4 - 7.1 AVERAGE RISK 7.1 - 11.0 MODERATE RISK >11.0 HIGH RISK Performed By: #### L IPID, CMP ####[facility] [address] [id number][address] Sarah Church Cholesterol [Mass/Vol] 159 mg/dL Normal <=200 [facility] Comment on above: Performed By: #### L IPID, CMP ####[facility] [address] [id number][address] Sarah Church Cholesterol in HDL [Mass/Vol] 41 mg/dL Normal 40-60 [facility] Comment on above: Performed By: #### L IPID, CMP ####[facility] [address] [id number]. Sarah Church Cholesterol in LDL [Mass/Vol] 102.6 mg/dL Normal [facility] Comment on above: Performed By: #### L IPID, CMP ####[facility] [address] [id number]. Sarah Church Cholesterol.total/C holesterol in HDL [Mass ratio] 3.9 {ratio} Normal [facility] Comment on above: Performed By: #### L IPID, CMP ####[facility] [id number] [id number]. Sarah Church HDL NORMAL > or = 60 mg/dl - LO W CARDIOVASCULAR RISK <40 mg/dl - HIGH CARDIOVASCULAR RISK Normal [facility] Comment on above: Performed By: #### L IPID, CMP ####[facility] [address] [place] [address]Dr. Sarah Church LDL CALC NORMAL SEE BELOW Normal [facility] Comment on above: Result Comment: <100 mg/dl OPTIMAL 100 - 129 mg/dl NEAR OR ABOVE OPTIMAL 130 - 159 mg/dl BORDERLINE HIGH 160 - 189 mg/dl HIGH >190 mg/dl VERY HIGH Performed By: #### L IPID, CMP ####[facility] [address] [place] [address]DrCoretta Church Triglyceride [Mass/Vol] 77 mg/dL Normal <=150 [facility] Comment on above: Performed By: #### L IPID, CMP ####[facility] [address] [place] [address]Dr. Sarah Church VLDL CALC 15.4 mg/dL Normal [facility] Comment on above: Performed By: #### L IPID, CMP ####[facility] [address]om[address] [place] [address]DrCoretta Church MICROALBUMIN, RAND URon - mALB 2.0 mg/L Normal <=30.0 [facility] Comment on above: Performed By: #### M ALBR #### [facility] [address] [address] [address] Sarah Church PROF 14(COMP METB)on 022 Albumin [Mass/Vol] 3.5 g/dL Normal 3.4-5.0 [facility] Comment on above: Performed By: #### L IPID, CMP ####[facility] [address] [place] [id number]. Sarah Church Albumin/Globulin [Mass ratio] 0.8 {ratio} Normal [facility] Comment on above: Performed By: #### L IPID, CMP ####[facility] [address]wb[address] [place] [address]Dr. Sarah Church ALP [Catalytic activity/Vol] 85 U/L Normal 46-116 [facility] Comment on above: Performed By: #### L IPID, CMP ####[facility] [address] [place] [address]Dr. Sarah Church ALT [Catalytic activity/Vol] 59 U/L Normal 14-59 [facility] Comment on above: Performed By: #### L IPID, CMP ####[facility] [address] [place] [address]Dr. Sarah Church Anion gap [Moles/Vol] 15.1 mmol/L Normal [facility] Comment on above: Performed By: #### L IPID, CMP ####[facility] [address] [place], [place] [address]Dr. Sarah Church AST [Catalytic activity/Vol] 32 U/L Normal 15-37 [facility] Comment on above: Performed By: #### L IPID, CMP ####[facility] [address] [place], [place] [address]Dr. Sarah Church Bilirubin [Mass/Vol] 0.4 mg/dL Normal 0.2-1.0 [facility] Comment on above: Performed By: #### L IPID, CMP ####[facility] [address] [place], [place] [address]Dr. Sarah Ranjit Calcium [Mass/Vol] 9.0 mg/dL Normal 8.5-10.1 [facility] Comment on above: Performed By: #### L IPID, CMP ####[facility] Y[address] [place], [place] [address]Dr. Sarah Church Chloride [Moles/Vol] 102 mmol/L Normal 98-107 [facility] Comment on above: Performed By: #### L IPID, CMP ####[facility] [address] [place], [place] [address]Dr. Sarah Church CO2 [Moles/Vol] 30.2 mmol/L Normal 21.0-32.0 [facility] Comment on above: Performed By: #### L IPID, CMP ####[facility] X[address] [place], [place] [address]Dr. Sarah Church Creatinine [Mass/Vol] 0.81 mg/dL Normal 0.55-1.02 [facility] Comment on above: Performed By: #### L IPID, CMP ####[facility] [address] [place] [address]Dr. Sarah Church EGFR-AF GERMAN >60 Normal >=60 [facility] Comment on above: Performed By: #### L IPID, CMP ####[facility] [address] [place] [id number]. Sarah Church EGFR-NON AF GERMAN >60 Normal >=60 [facility] Comment on above: Performed By: #### L IPID, CMP ####[facility] [address] [place] [id number]. Sarah Ranjit Globulin (S) [Mass/Vol] 3.9 g/dL Normal [facility] Comment on above: Performed By: #### L IPID, CMP ####[facility] [address] [place] [address]Dr. Corriebrenden Ranjit Glucose [Mass/Vol] 218 mg/dL Critically high 74-106 [facility] Comment on above: Performed By: #### L IPID, CMP ####[facility] [address] [place] [address]Dr. Sarah Ranjit Potassium [Moles/Vol] 4.3 mmol/L Normal 3.5-5.1 [facility] Comment on above: Performed By: #### L IPID, CMP ####[facility] [address] [place] [address]Dr. Sarah Ranjit Protein [Mass/Vol] 7.4 g/dL Normal 6.4-8.2 [facility] Comment on above: Performed By: #### L IPID, CMP ####[facility] [address] [place] [address]Dr. Sarah Ranjit Sodium [Moles/Vol] 143 mmol/L Normal 136-145 [facility] Comment on above: Performed By: #### L IPID, CMP ####[facility] [address] [place] [address]Dr. Sarah Ranjit Urea nitrogen [Mass/Vol] 14.0 mg/dL Normal 7.0-18.0 [facility] Comment on above: Performed By: #### L IPID, CMP ####[facility] [address] [place], [place] [address]KoCoretta Church Urea nitrogen/Creatinine [Mass ratio] 17.2 mg/mg Normal [facility] Comment on above: Performed By: #### L IPID, CMP ####[facility] [address] [place], [place] [address]Mx. Sarah Church Vital Signs Date Time Vital Sign Value Performing Clinician Facility 06-14-2024 [id number] Body height 157.5 cm Nacho Patiño MD Work Phone: [facility] 06-14-2024 10:21-0500 Body mass index (BMI) [Ratio] 38.59 kg/m2 Nacho Patiño MD Work Phone: [facility] 06-14-2024 10:21-0500 Body temperature 97.3 [degF] Nacho Patiño MD Work Phone: [facility] 06-14-2024 10:21-0500 Body weight 95.71 kg Nacho Patiño MD Work Phone: [facility] 06-14-2024 10:21-0500 Diastolic blood pressure 82 mm[Hg] Nacho Patiño MD Work Phone: [facility] 06-14-2024 10:21-0500 Heart rate 88 /min Nacho Patiño MD Work Phone: [facility] 06-14-2024 10:21-0500 SaO2% (BldA) [Mass fraction] 97 % Nacho Patiño MD Work Phone: [facility] 06-14-2024 10:21-0500 Systolic blood pressure 136 mm[Hg] Nacho Patiño MD Work Phone: [facility] 05-30-2024 10:48-0500 Body height 157.48 cm [facility] 05-30-2024 10:48-0500 Body mass index (BMI) [Ratio] 38.5 kg/m2 [facility] 05-30-2024 10:48-0500 Body weight 95.7 kg [facility] 05-30-2024 10:48-0500 Diastolic blood pressure 77 mm[Hg] [facility] 05-30-2024 10:48-0500 Heart rate 80 /min [facility] 05-30-2024 10:48-0500 Systolic blood pressure 133 mm[Hg] [facility] 02-23-2024 13:23-0400 Body height 157.48 cm [facility] 02-23-2024 13:23-0400 Body mass index (BMI) [Ratio] 38 kg/m2 [facility] 02-23-2024 13:23-0400 Body weight 94.37 kg [facility] 02-23-2024 13:23-0400 Diastolic blood pressure 78 mm[Hg] [facility] 02-23-2024 13:23-0400 Heart rate 75 /min [facility] 02-23-2024 13:23-0400 Respiratory rate 18 /min [facility] 02-23-2024 13:23-0400 SaO2% (BldA) [Mass fraction] 97 % [facility] 02-23-2024 13:23-0400 Systolic blood pressure 170 mm[Hg] [facility] 12-13-2023 13:03-0400 Body height 157.48 cm [facility] 12-13-2023 13:03-0400 Body mass index (BMI) [Ratio] 37.1 kg/m2 [facility] 12-13-2023 13:03-0400 Body weight 92.07 kg [facility] 12-13-2023 13:03-0400 Diastolic blood pressure 86 mm[Hg] [facility] 12-13-2023 13:03-0400 Heart rate 78 /min [facility] 12-13-2023 13:03-0400 Respiratory rate 18 /min [facility] 12-13-2023 13:03-0400 SaO2% (BldA) [Mass fraction] 96 % [facility] 12-13-2023 13:03-0400 Systolic blood pressure 153 mm[Hg] [facility] 12-05-2023 11:24-0400 Body height 157.48 cm [facility] 12-05-2023 11:24-0400 Body mass index (BMI) [Ratio] 36.9 kg/m2 [facility] 12-05-2023 11:24-0400 Body weight 91.62 kg [facility] 12-05-2023 11:24-0400 Diastolic blood pressure 75 mm[Hg] [facility] 12-05-2023 11:24-0400 Heart rate 80 /min [facility] 12-05-2023 11:24-0400 Systolic blood pressure 133 mm[Hg] [facility] 09-29-2023 13:44-0400 Diastolic blood pressure 76 mm[Hg] [facility] 09-29-2023 13:44-0400 Systolic blood pressure 130 mm[Hg] [facility] 09-29-2023 13:19-0400 Body height 157.48 cm [facility] 09-29-2023 13:19-0400 Body mass index (BMI) [Ratio] 38.7 kg/m2 [facility] 09-29-2023 13:19-0400 Body weight 95.9 kg [facility] 09-29-2023 13:19-0400 Heart rate 89 /min [facility] 09-29-2023 13:19-0400 Respiratory rate 18 /min [facility] 09-29-2023 13:19-0400 SaO2% (BldA) [Mass fraction] 98 % [facility] 09-06-2023 11:08-0400 Body height 157.48 cm [facility] 09-06-2023 11:08-0400 Body mass index (BMI) [Ratio] 37.6 kg/m2 [facility] 09-06-2023 11:08-0400 Body weight 93.44 kg [facility] 09-06-2023 11:08-0400 Diastolic blood pressure 72 mm[Hg] [facility] 09-06-2023 11:08-0400 Heart rate 89 /min [facility] 09-06-2023 11:08-0400 Systolic blood pressure 127 mm[Hg] [facility] 08-24-2023 15:08-0400 Body height 157.48 cm [facility] 08-24-2023 15:08-0400 Body mass index (BMI) [Ratio] 37.5 kg/m2 [facility] 08-24-2023 15:08-0400 Body weight 93.21 kg [facility] 08-19-2023 10:43-0400 Body height 157.48 cm MD Shayy Dela Cruz Work Phone: [facility] 08-19-2023 10:43-0400 Body mass index (BMI) [Ratio] 37.5 kg/m2 MD Shayy Dela Cruz Work Phone: [facility] 08-19-2023 10:43-0400 Body weight 93.09 kg MD Shayy Dela Cruz Work Phone: [facility] 08-19-2023 10:43-0400 Diastolic blood pressure 79 mm[Hg] MD Shayy Dela Cruz Work Phone: [facility] 08-19-2023 10:43-0400 Heart rate 83 /min MD Shayy Dela Cruz Work Phone: [facility] 08-19-2023 10:43-0400 Systolic blood pressure 135 mm[Hg] MD Shayy Dela Cruz Work Phone: [facility] 07-28-2023 14:22-0400 Body height 157.48 cm MD Shayy Dela Cruz Work Phone: [facility] 07-28-2023 14:22-0400 Body mass index (BMI) [Ratio] 37.6 kg/m2 MD Shayy Dela Cruz Work Phone: [facility] 07-28-2023 14:22-0400 Body weight 93.44 kg MD Shayy Dela Cruz Work Phone: [facility] 07-28-2023 14:22-0400 Diastolic blood pressure 84 mm[Hg] MD Shayy Dela Cruz Work Phone: [facility] 07-28-2023 14:22-0400 Heart rate 83 /min MD Shayy Dela Cruz Work Phone: [facility] 07-28-2023 14:22-0400 Respiratory rate 18 /min MD Shayy Dela Cruz Work Phone: [facility] 07-28-2023 14:22-0400 SaO2% (BldA) [Mass fraction] 97 % MD Shayy Dela Cruz Work Phone: [facility] 07-28-2023 14:22-0400 Systolic blood pressure 140 mm[Hg] MD Shayy Dela Cruz Work Phone: [facility] 07-19-2023 10:57-0400 Body height 157.48 cm MD Shayy Dela Cruz Work Phone: [facility] 07-19-2023 10:57-0400 Body mass index (BMI) [Ratio] 37.1 kg/m2 MD Shayy Dela Cruz Work Phone: [facility] 07-19-2023 10:57-0400 Body weight 92.07 kg MD Shayy Dela Cruz Work Phone: [facility] 07-19-2023 10:57-0400 Diastolic blood pressure 68 mm[Hg] MD Shayy Dela Cruz Work Phone: [facility] 07-19-2023 10:57-0400 Heart rate 89 /min MD Shayy Dela Cruz Work Phone: [facility] 07-19-2023 10:57-0400 Systolic blood pressure 132 mm[Hg] MD Shayy Dela Cruz Work Phone: [facility] 05-25-2023 11:00-0500 Body height 157.48 cm Cathie Vargas Other [facility] 05-25-2023 11:00-0500 Body mass index (BMI) [Ratio] 37.23 kg/m2 Cathie Vargas Other [employer] Other 05-25-2023 11:00-0500 Body weight 92.35 kg Cathie Scally Other [facility] 05-25-2023 11:00-0500 Diastolic blood pressure 71 mm[Hg] Cathie Scally Other [facility] 05-25-2023 11:00-0500 Respiratory rate 18 /min Cathie Scally Other [employer] Other 05-25-2023 11:00-0500 SaO2% (BldA) [Mass fraction] 95 % Cathie Scally Other [employer] Other 05-25-2023 11:00-0500 Systolic blood pressure 139 mm[Hg] Cathie Scally Other [facility] 04-15-2023 11:00-0500 Body height 157.48 cm Shayy Dela Cruz Other [facility] 04-15-2023 11:00-0500 Body mass index (BMI) [Ratio] 37.49 kg/m2 Shayy Dela Cruz Other [facility] [employer] Other 04-15-2023 11:00-0500 Body weight 92.99 kg Shayy Dela Cruz Other [facility] [employer] Other 04-15-2023 11:00-0500 Body weight 92.98 kg MD Shayy Dela Cruz Work Phone: [facility] 04-15-2023 11:00-0500 Diastolic blood pressure 84 mm[Hg] Shayy Dela Cruz Other [facility] 04-15-2023 11:00-0500 Systolic blood pressure 142 mm[Hg] Shayy Dela Cruz Other [facility] 06-22-2022 13:30-0500 Body height 157.48 cm Shayy Dela Cruz Other [employer] Other 06-22-2022 13:30-0500 Body mass index (BMI) [Ratio] 36.94 kg/m2 Shayy Dela Cruz Other [employer] Other 06-22-2022 13:30-0500 Body weight 91.63 kg Shayy Dela Cruz Other [employer] Other 06-22-2022 13:30-0500 Diastolic blood pressure 74 mm[Hg] Shayy Dela Cruz Other [employer] Other 06-22-2022 13:30-0500 SaO2% (BldA) [Mass fraction] 97 % Shayy Dela Cruz Other [employer] Other 06-22-2022 13:30-0500 Systolic blood pressure 112 mm[Hg] Shayy Dela Cruz Other [employer] Other Encounters Encounter Date Encounter Type Care Provider Facility Start: 06-14-2024 End: 06-14-2024 Office outpatient new 30 minutes Nacho Patiño MD Work Phone: [facility] Comment on above: 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[facility]) (Primary Dx) Start: 06-14-2024 End: 06-14-2024 ambulatory NACHO PATIÑO [facility] Start: 05-30-2024 End: 05-30-2024 ambulatory [facility] Work Phone: Start: 05-30-2024 End: 05-30-2024 Patient encounter procedure [facility] Work Phone: Start: 05-24-2024 End: 05-24-2024 ambulatory [facility] Work Phone: Start: 05-24-2024 End: 05-24-2024 Patient encounter procedure [facility] Work Phone: Start: 05-16-2024 Non-patient / Non-visit [facility] Work Phone: Start: 05-07-2024 Non-patient / Non-visit [facility] Work Phone: Start: 04-19-2024 End: 04-19-2024 Patient encounter procedure [facility] Work Phone: Start: 02-28-2024 Non-patient / Non-visit [facility] Work Phone: Start: 02-23-2024 End: 02-23-2024 ambulatory Cathielos Vargas [facility] Work Phone: Start: 02-23-2024 End: 02-23-2024 Patient encounter procedure [employer] Cathie Vargas Work Phone: [facility] Work Phone: Start: 02-23-2024 End: 02-23-2024 ambulatory [facility] Work Phone: Start: 02-23-2024 End: 02-23-2024 Patient encounter procedure [facility] Work Phone: Start: 01-17-2024 End: 01-17-2024 ambulatory [facility] Work Phone: Start: 01-17-2024 End: 01-17-2024 Patient encounter procedure [facility] Work Phone: Start: 12-13-2023 End: 12-13-2023 ambulatory [facility] Work Phone: Start: 12-13-2023 End: 12-13-2023 Patient encounter procedure [facility] Work Phone: Start: 12-05-2023 End: 12-05-2023 ambulatory [facility] Work Phone: Start: 12-05-2023 End: 12-05-2023 Patient encounter procedure [facility] Work Phone: Start: 11-07-2023 End: 11-07-2023 ambulatory [facility] Work Phone: Start: 11-07-2023 End: 11-07-2023 Patient encounter procedure [facility] Work Phone: Start: 09-29-2023 End: 09-29-2023 ambulatory [facility] Work Phone: Start: 09-29-2023 End: 09-29-2023 Patient encounter procedure [facility] Work Phone: Start: 09-06-2023 End: 09-06-2023 ambulatory [facility] Work Phone: Start: 09-06-2023 End: 09-06-2023 Patient encounter procedure [facility] Work Phone: Start: 08-24-2023 End: 08-24-2023 ambulatory [facility] Work Phone: Start: 08-24-2023 End: 08-24-2023 Patient encounter procedure [facility] Work Phone: Start: 08-19-2023 End: 08-19-2023 ambulatory MD Shayy Dela Cruz Work Phone: [facility] Work Phone: Start: 08-19-2023 End: 08-19-2023 Patient encounter procedure MD Shayy Dela Cruz Work Phone: [facility] Work Phone: Start: 07-28-2023 End: 07-28-2023 ambulatory MD Shayy Dela Cruz Work Phone: [facility] Work Phone: Start: 07-28-2023 End: 07-28-2023 Patient encounter procedure MD Shayy Dela Cruz Work Phone: [facility] Work Phone: Start: 07-19-2023 End: 07-19-2023 ambulatory MD Shayy Dela Cruz Work Phone: [facility] Work Phone: Start: 07-19-2023 End: 07-19-2023 Patient encounter procedure MD Shayy Dela Cruz Work Phone: [facility] Work Phone: Start: 07-12-2023 Non-patient / Non-visit MD Shayy Dela Cruz Work Phone: [facility] Work Phone: Start: 06-14-2023 End: 06-14-2023 Patient encounter procedure MD Shayy Dela Cruz Work Phone: [facility] Work Phone: Start: 06-14-2023 End: 06-14-2023 ambulatory MD Shayy Dela Cruz Work Phone: [facility] Work Phone: Start: 06-06-2023 End: 06-06-2023 ambulatory Shayy Dela Cruz Other [employer] Other Start: 06-06-2023 Telephone encounter Shayy Dela Cruz [facility] Start: 05-25-2023 [facility] visit new patient Cathie Sheikh y [facility] Start: 05-25-2023 End: 05-25-2023 ambulatory MD Shayy Dela Cruz Work Phone: [employer] Other Start: 05-25-2023 End: 05-25-2023 Discharged Recurring MD Shayy Dela Cruz Work Phone: [facility] Work Phone: Start: 05-25-2023 Registered Recurring MD Shayy Dela Cruz [facility] Work Phone: Start: 05-25-2023 End: 05-25-2023 Patient encounter procedure MD Shayy Dela Cruz Work Phone: [facility]- Start: 05-12-2023 End: 05-12-2023 ambulatory Shayy Dela Cruz Other [employer] Other Start: 05-12-2023 Telephone encounter Shayy Dela Cruz [facility] Start: 05-10-2023 End: 05-10-2023 ambulatory Shayy Dela Cruz Other [employer] Other Start: 05-10-2023 Telephone encounter Shayy Dela Cruz [facility] Start: 04-22-2023 End: 04-22-2023 ambulatory Shayy Dela Cruz Other [employer] Other Start: 04-22-2023 Telephone encounter Shayy Dela Cruz [facility] Start: 04-20-2023 End: 04-20-2023 ambulatory Lynne Fitt Other [employer] Other Start: 04-20-2023 Telephone encounter Lynne Fitt [facility] Start: 04-18-2023 End: 04-18-2023 ambulatory Lynne Austint Other [employer] Other Start: 04-18-2023 Telephone encounter Lynne Austint [facility] Start: 04-15-2023 End: 04-15-2023 ambulatory Shayy Dela Cruz Other [employer] Other Start: 04-15-2023 Office outpatient visit 15 minutes Shayy Dela Cruz [facility] Start: 04-15-2023 End: 04-15-2023 Patient encounter procedure MD Shayy Dela Cruz Work Phone: [facility] Work Phone: Start: 04-06-2023 End: 04-06-2023 ambulatory Shayy Dela Cruz Other [employer] Other Start: 04-06-2023 Telephone encounter Shayy Dela Cruz [facility] Start: 02-25-2023 End: 02-25-2023 ambulatory Shayy Dela Cruz Other [employer] Other Start: 02-25-2023 Telephone encounter Shayy Dela Cruz [facility] Start: 12-13-2022 End: 12-13-2022 ambulatory [facility] Start: 10-29-2022 End: 10-29-2022 ambulatory Shayy Dela Cruz Other [employer] Other Start: 10-29-2022 Telephone encounter Shayy Dela Cruz [facility] Start: 08-27-2022 End: 08-28-[address] SHAYY DELA CRUZ Facility:[facility] Start: 08-10-2022 End: 08-10-2022 ambulatory [facility] Start: 07-20-2022 End: 07-21-[address] SHAYY DELA CRUZ Facility:[facility] Start: 07-19-2022 End: 07-19-2022 ambulatory Shayy Dela Cruz Other [employer] Other Start: 07-19-2022 Telephone encounter Shayy Dela Cruz [facility] Start: 07-12-2022 End: 07-13-[address] SHAYY DELA CRUZ Facility:[facility] Start: 07-05-2022 End: 07-05-2022 ambulatory Shayy Dela Cruz Other [employer] Other Start: 07-05-2022 Telephone encounter Shayy Dela Cruz [facility] Start: 06-28-2022 End: 06-28-2022 ambulatory Shayy Dela Cruz Other [employer] Other Start: 06-28-2022 Telephone encounter Shayy Dela Cruz [facility] Start: 06-22-2022 End: 06-22-2022 ambulatory Shayy Dela Cruz Other [employer] Other Start: 06-22-2022 Office outpatient visit 15 minutes Shayy Dela Cruz [facility] Start: 05-27-2022 End: 05-27-2022 ambulatory Shayy Dela Cruz Other [employer] Other Start: 05-27-2022 Telephone encounter Shayy Dela Cruz [facility] Start: 05-19-2022 End: 05-20-[address] [...] Start: 05-10-2017 End: 05-11-2017 Ambulatory DEFAULT PHYSICIAN Facility:[facility] Start: 05-05-2017 End: 05-06-2017 Ambulatory DEFAULT PHYSICIAN Facility:[facility] Procedures Date Procedure Procedure Detail Performing Clinician Start: 12-13-2022 Follow-up visit Follow-up MARQUES MOROCHO Plan of Treatment Date Care Activity Detail Author Start: 01-01-2024 Influenza vaccination Influenza Vaccine [facility] [employer] [facility] Start: 01-15-2022 Administration of varicella zoster vaccine Zoster (Shingles) [facility] 2[facility] Start: 01-15-1993 Screening for malignant neoplasm of cervix [facility] Start: 01-15-1991 DTaP,Tdap and Td Vaccines (1 - Tdap) DTaP,Tdap and Td Vaccines (1 - Tdap) [facility] Start: 01-15-1990 Adult BMI Screening Adult BMI Screening [facility] Start: 1984 Depression Screening Depression Screening [facility] Start: 1984 Tobacco Screening Tobacco Screening [facility] Comprehensive metabo lic 2000 panel - Serum or Plasma [facility] MG Breast - bilatera l Screening [facility] Immunizations Immunization Date Immunization Notes Care Provider Fa cility 02-01-2022 influenza virus vaccine, split virus (incl. purified surface antigen) Shayy Dela Cruz Other [employer] Other 02-01-2022 influenza virus vaccine, unspecified formulation MD Shayy Dela Cruz Work Phone: [facility] Payers Date Payer Category Payer Medicare O ANTH MEDICARE [id number] 2023 Medicare [id number] 2023 Self-pay 2021 Medicaid [id number] 2017 Medicaid [place] [id number] 2017 Unknown [id number] 1972 Unknown [id number] 1972 Unknown [id number] [id number] 1972 Unknown [id number] 2.16.840.1.898245.3.579.2.593 1972 Unknown [id number] 2.16.840.1.362888.3.579.2.593 1972 Unknown [id number] 2.16.840.1.456448.3.579.2.593 1972 Unknown [id number] 2.16.840.1.430684.3.579.2.593 1972 Unknown [id number] 2.16.840.1.069010.3.579.2.593 1972 Unknown [id number] 2.16.840.1.979934.3.579.2.593 1972 Unknown [id number] [id number] 1972 Unknown [id number] [id number] 1959 Medicaid [id number] [id number] 1959 Medicare [id number] Unknown Unknown [id number] [id number] Unknown [id number] Social History Date Type Detail Facility Unknown if ever smoked [facility] Other Start: 06-14-2024 Sex Assigned At [facility] Other Start: 1970 Sex Assigned At Female [facility] Start: 07-19-2023 End: 06-14-2024 Tobacco smoking status NHIS Never smoked tobacco (finding) [facility] Start: 05-24-2024 End: 06-13-2024 Sex Female (finding) [facility] Start: 06-14-2024 Tobacco use and exposure Smokeless tobacco non-user [facility] Start: 06-14-2024 Alcoholic beverage intake Lifetime non-drinker (finding) [facility] Start: 06-14-2024 History of Social function [facility] Within the past 12 months we worried whether our food would run out before we got money to buy more. Never True [facility] Start: 1970 Sex assigned at Not on file [facility] NEGATED: Highlighted row [facility] Medical Equipment Procedure Code Equipment Code [...] 07-28-2023 End: 08-23-2023 Clinical Notes 01-11-2022 to 06-14-2024 Assessment & Plan Note - Nacho Patiño MD - 06/14/2024 11:11 AM ESTAssessment & Plan Note - Nacho Patiño MD - 06/14/2024 11:11 AM ESTMoazra Patiño MD - 06/14/2024 10:10 AM EST Note Date & Type Note Facility 06-14-2024 Evaluation + Plan note Associated Problem(s): Gangrene of toe of left foot ([facility]) Osteomyelitis and gangrenous changes of the left second and third and may be the fourth toe.She has normal PVR with toe pressure and normal HIEU and toe pressure index.I discussed with her that there is no VASc intervention needed at this time. She needs his aggressive blood sugar control IV antibiotics likely toe amputation by podiatry and risk factors modification. [facility] 06-14-2024 Miscellaneous Notes Associate d Problem(s): Gangrene of toe of left foot ([facility]) Osteomyelitis and gangrenous changes of the left second and third and may be the fourth toe.She has normal PVR with toe pressure and normal HIEU and toe pressure index.I discussed with her that there is no VASc intervention needed at this time. She needs his aggressive blood sugar control IV antibiotics likely toe amputation by podiatry and risk factors modification. documented in this encounter [facility] 06-14-2024 History of Presen t illness Narrative Images from the original note were not included. To: No primary care provider on file. HPI: Zoila Ramos is a 54 y.o. female with Osteomyelitis of the second and third toes under the care of podiatry. She was sent to us for vascular evaluation. She has a PVR with TBI that were normal. Her hemoglobin A1c was 9. I discussed with her aggressive control of diabetes best medical therapy and risk factors modification antibiotics and control of the infection surgically by podiatry.. Review of Systems: Review of Systems Constitutional: Negative. HENT: Negative. Respiratory: Negative. Cardiovascular: Negative. Gastrointestinal: Negative. Endocrine: Negative. Genitourinary: Negative. Musculoskeletal: Negative. Skin: Negative. Neurological: Negative. Hematological: Negative. Medications: Current Outpatient Medications on File Prior to Visit Medication Sig Dispense Refill amoxicillin-pot clavulanate (AUGMENTIN) 875-125 mg per tablet Take 1 tablet by mouth every 12 (twelve) hours. atorvastatin (LIPITOR) 40 mg tablet Take 1 tablet (40 mg total) by mouth in the morning. carvediloL (COREG) 6.25 mg tablet Take 1 tablet (6.25 mg total) by mouth in the morning and 1 tablet (6.25 mg total) in the evening. Take with meals. esomeprazole (NexIUM) 40 mg capsule Take 1 capsule (40 mg total) by mouth every morning before breakfast. FLOVENT HFA 110 mcg/actuation inhaler Inhale 2 puffs in the morning and 2 puffs before bedtime. fluticasone propionate (FLONASE) 50 mcg/actuation nasal spray Administer 2 sprays into each nostril in the morning. glipiZIDE (GLUCOTROL) 10 mg tablet Take 1 tablet (10 mg total) by mouth in the morning and 1 tablet (10 mg total) in the evening. Take before meals. losartan (COZAAR) 25 mg tablet Take 1 tablet (25 mg total) by mouth in the morning and 1 tablet (25 mg total) before bedtime. metFORMIN (GLUCOPHAGE) 1000 mg tablet Apply 0.5 tablets (500 mg total) to the mouth or throat in the morning and 0.5 tablets (500 mg total) in the evening. Apply with meals. 250mg in am, 250mg in pm. simvastatin (ZOCOR) 20 mg tablet Take 1 tablet (20 mg total) by mouth nightly. sulfamethoxazole-trimethoprim (BACTRIM DS) 800-160 mg per tablet Take 1 tablet by mouth in the morning and 1 tablet before bedtime. TOUJEO MAX U-300 SOLOSTAR 300 unit/mL (3 mL) insulin pen Inject 95 Unit under the skin in the morning. No current facility-administered medications on file prior to visit. Past Medical History: Past Medical History: Diagnosis Date Diabetes mellitus ([facility]) Past Surgical History: No past surgical history on file. Social and Family History: Social History Socioeconomic History Marital status: Single Spouse name: Not on file Number of children: Not on file Years of education: Not on file Highest education level: Not on file Occupational History Not on file Tobacco Use Smoking status: Never Smokeless tobacco: Never Substance and Sexual Activity Alcohol use: Never Drug use: Never Sexual activity: Defer Other Topics Concern Not on file Social History Narrative Not on file Social Drivers of Health Financial Resource Strain: Not on file Food Insecurity: No Food Insecurity (06/14/2024) Hunger Screening Food Insecurity - Worry: Never True Food Insecurity - Inability: Never True Transportation Needs: Not on file Physical Activity: Not on file Stress: Not on file Social Connections: Not on file Interpersonal Safety: Unknown (06/23/2023) Received from [facility] Fear of Current or Ex-Partner: Not on file Emotionally Abused: Not on file Physically Abused: Not on file Sexually Abused: Not on file Physically or Sexually Abused: Not on file Housing Instability: Not on file No family history on file. Recent Labs: Recent and relative labs were reviewed and interpreted and contributed to the assessment and plan below. Vitals: BP 136/82 (BP Site: Right Arm, BP Postition: Sitting, BP CUFF SIZE: M (9-13 inches)) Pulse 88 Temp 36.3 C (97.3 F) (Temporal) Ht 157.5 cm (5' 2 ) Wt 95.7 kg (211 lb) SpO2 97% BMI 38.59 kg/m Body mass index is 38.59 kg/m . Physical Exam: Physical Exam Constitutional: Appearance: Normal appearance. HENT: Head: Normocephalic and atraumatic. Mouth/Throat: Mouth: Mucous membranes are moist. Eyes: Extraocular Movements: Extraocular movements intact. Pupils: Pupils are equal, round, and reactive to light. Cardiovascular: Rate and Rhythm: Normal rate and regular rhythm. Pulmonary: Effort: Pulmonary effort is normal. Breath sounds: Normal breath sounds. Abdominal: General: Abdomen is flat. Bowel sounds are normal. Palpations: Abdomen is soft. Musculoskeletal: General: Normal range of motion. Cervical back: Normal range of motion. Skin: General: Skin is warm and dry. Neurological: General: No focal deficit present. Mental Status: She is alert and oriented to person, place, and time. Mental status is at baseline. Psychiatric: Mood and Affect: Mood normal. Behavior: Behavior normal. Thought Content: Thought content normal. Judgment: Judgment normal. Recent testing: PVR with toe pressure Assessment and Plan: Problem List Gangrene of toe of left foot (CMS-HCC) - Primary Current Assessment & Plan Osteomyelitis and gangrenous changes of the left second and third and may be the fourth toe.She has normal PVR with toe pressure and normal HIEU and toe pressure index.I discussed with her that there is no VASc intervention needed at this time. She needs his aggressive blood sugar control IV antibiotics likely toe amputation by podiatry and risk factors modification. Zoila was seen today for left 2nd, 3rd, 4th toes discolored, painful. Diagnoses and all orders for this visit: Gangrene of toe of left foot ([facility]) Nacho Patiño MD, SELMA, RPVI, FSVS, FACS [facility] [employer] [facility] This note was created with the assistance of a speech recognition program. While intending to generate a timely document that accurately reflects the content of the visit, no guarantee can be provided that every grammatical or spelling mistake has been or will be identified or corrected. Thank you for your understanding. documented in this encounter [facility] 04-19-2024 Evaluation note Diagnosis Onset Date Resolution Type 2 diabetes mellitus acute April 19, 2 024 2:03pm [facility] Work Phone: 1(260) 976-379812-19-2024 Evaluation note* Diagnosis Onset Date Resolution Status Admit Date Type 2 diabetes mellitus acute April 19, 2024 2:03pm Type 2 diabetes mellitus acute May 24, 2024 12:54pm [facility] Work Phone: 1(868) 364-512202-05-2024 Evaluation note* Encounter Date Diagnosis Assessment Notes Treatment Notes Treatment Clinical Notes Jun, Controlled type 2 diabetes mellitus with hyperglycemia, unspecified whether group home insulin use (ICD-10 - E11.65) [facility] Other 01-24-2024 Evaluation note* Encounter Date Diagnosis [...] issues. 6. Prescriptions: New patient 05-25-2023 uses Zinwave/Robert. 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 She was taught how to use the [...] educating the patient by Nguyễn Norwood RN, [facility]. [facility] Other 12-15-2023 Evaluation note* Encounter Date Diagnosis Assessment Notes Treatment Notes Treatment Clinical Notes Apr, Type 2 diabetes mellitus with hyperglycemia (ICD-10 - E11.65) Rx handwritten for diabetic shoes. Pt agrees to referral to specialty clinic. Continue present meds and discussed healthy diet in meantime. Apr, [facility] (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 of insulin (ICD-10 - Z79.4) [facility] Other 08-14-2023 NoteCardiology Clinic Note Subjective Zoila [...] Active Problem List Diagnosis Coronary arteriosclerosis in [place] artery Old myocardial infarction Sinusitis Type 1 [...] IVC. Mitral V (more content not included)...[facility] 08-10-2022 NoteCardiology Clinic Note Subjective Zoila [...] Active Problem List Diagnosis Coronary arteriosclerosis in [place] artery Old myocardial infarction Sinusitis Type 1 [...] size. The (more content not included)... 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 She declines and will continue meds, followup in 3 months, and recheck labs at that time. She is eating more of a keto diet and is certain that is helping her A1C improve. Jun, Screening mammogram for breast cancer (ICD-10 - Z12.31) Zoila will call for an [employer] [facility] Other 01-31-2023 NoteIn light of elevated LDL will change simvastatin to lipitor 40 mg daily. Will repeat liver function and lipid level in 2 months. Staff to notify pt. Malcolm Evans BLACK LEATHER BUFFER Division [facility]- [phone] Pager- [phone] Email- [email or web address] NotePatient here for 1 year [...] All other systems reviewed and are negative.[facility] 05-19-2022 NoteUTP CARDIOLOGY PROGRESS NOTE HPI: [...] past 12 months Assessment/Plan: Coronary arteriosclerosis in [place] artery Coronary artery disease is stable, no [...] week RTC 1 month to review B/P logUniversity [facility] Medical [id number] Note Hypertension is uncontrolled, Will add lisinopril 5 mg po daily, and continue metoprolol Goal b/p 130/80 or less, monitor for dry persistent cough- call office for any concerns, repeat BMP in 1 week RTC 1 month to review B/P logUn[facility]field [facility]01-18-2023 Note Coronary artery disease is stable, no concerning symptoms continue risk factor modifications- heart healthy diet, regular exercise as tolerated and continue all medications.[facility] 04-15-2022 NotePROCEDURE: XR FOOT LT MIN [...] Electronically authenticated by: NARINDER LAN Date: 2022-04-15 06:08[facility]09-12-2022 NotePROCEDURE: XR TOES RT MIN 2 V HISTORY: Pain of toe of right foot ; first toe pain following injury COMPARISON: None. FINDINGS: BONES:No fracture, acute abnormality, or significant arthropathy. SOFT TISSUES:No visible soft tissue swelling. EFFUSION:None visible. OTHER: Negative. IMPRESSION: 1. No acute bone abnormality. 2. Mild degenerative joint disease. Electronically authenticated by: NARINDER LAN Date: 2022-01-11 18:48[facility] complaint+Reason for visit Narrative* Chief Complaint 3 Month Follow Up Referral Dr. Negro LAGUERRE download [facility] Work Phone: Chief complaint+Reason for visit Narrative* Chief Complaint 3 Month Follow Up Referral Dr. Negro LAGUERRE download Reason for Visit Type 2 diabetes [facility] Work Phone: Chiny complaint+Reason for visit Narrative* Chief Complaint Referral Dr. Negro LAGUERRE download 3 Month Check up Reason for Visit Type 2 diabetes [facility] Work Phone: chief complaint+Reason for visit Narrative* Chief Complaint Referral Dr. Negro Dela Cruz DM download 3 Month Check up amrik reader Reason for Visit Type 2 diabetes holli itus Right wrist fracture Type 2 diabetes mellitus [facility] Work Phone: chief complaint+Reason for [...] mellitus Vitamin D deficiency Gastroesophageal reflux disease [facility] Work Phone: evaluation noteNo InformationNort [email or web address] Other Evalugwywn noteNo assessment information available [facility] Work Phone: evaluation note* Diagnosis Onset Date Resolution Status Type 2 diabetes mellitus acu te [facility] Work Phone: evaluation note* Diagnosis Onset Date Resolution Status Type 2 diabetes mellitus acu te Right wrist fracture acute Type 2 diabetes mellitus acu te [facility] Work Phone: evaluation note* Diagnosis [...] D deficiency acute Gastroesophageal reflux disease acute [facility] Work Phone: Evaluation note* Diagnosis [...] acute Type 2 diabetes mellitus acu te [facility] Work Phone: Evaluation note* Diagnosis Onset Date Resolution Status Right [...] acute Type 2 diabetes mellitus acu te [facility] Work Phone: Evaluation note* Diagnosis [...] acute Type 2 diabetes mellitus acu te [facility] Work Phone: evaluation note* Diagnosis [...] te Screening mammogram for breast cancer acute [facility] Work Phone: evaluation note* Diagnosis [...] mellitus acu te Vitamin D deficiency acute [facility] Work Phone: evaluation note* Diagnosis [...] acute Type 2 diabetes mellitus acu te [facility] Work Phone: Evaluation note* Diagnosis [...] mellitus acu te Vitamin D deficiency acute [facility] Work Phone: Evaluation note* Diagnosis Gangrene of toe of left foot ([facility])- Primary [facility] Narrative - Reported* Type Description Date Medical History Herpes labialis Medical History Candidiasis of mouth Medical History Type 2 diabetes holli itus with diabetic polyneuropathy, 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 Medical History Controlled type 2 di abetes mellitus with hyperglycemia, 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 Medical History Obesity Medical History Dyslipidemia Medical History CAD in [place] artery Medical History Asthma, intermittent Medical History [...] History appendectomy Surgical History 7 stents 1999 [facility] Other Hismqbp general Narrative - Reported* Type Description Date Medical History Herpes labialis Medical History Candidiasis of mouth Medical History Type 2 diabetes holli itus with diabetic polyneuropathy, 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 Medical History Controlled type 2 di abetes mellitus with hyperglycemia, 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 Medical History Obesity Medical History Dyslipidemia Medical History CAD in [place] artery Medical History Asthma, intermittent Medical History [...] stents 1999 Hospitalization History see surgical history [facility] Other History general Narrative - Reported* Type Description Date Medical History Herpes labialis Medical History Candidiasis of mouth Medical History Type 2 diabetes holli itus with diabetic polyneuropathy, 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 Medical History Controlled type 2 di abetes mellitus with hyperglycemia, 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 Medical History Obesity Medical History Dyslipidemia Medical History CAD in [place] artery Medical History Asthma, intermittent Medical History [...] coronary 1999 Hospitalization History see surgical history [facility] Other InstructionsNot on filedocumented in this encounter [place] Summary Purpose Family History No Family History [...] Advance Directives No September 22 3 3:19pm Advance Directive Response Recorded Date/ Time [...] [facility] Referred Organization [facility] Referred Provider Marcia Mendes Referred Address [address],[place], [place],[address] Referred Provider Specialty Nurse Huey saldaña Referral [...] and content) DATE CREATED AUTHOR 10/25/[address] [facility] DATE CREATED AUTHOR AUTHOR'S ORGANIZ ATION 09/03/2022 [facility] DATE CREATED AUTHOR AUTHOR'S ORGANIZ ATION 12/13/2022 [facility] DATE CREATED AUTHOR AUTHOR'S ORGANIZ ATION 02/25/2024 [facility] DATE CREATED AUTHOR AUTHOR'S ORGANIZ ATION 06/16/2024 [facility] REASON FOR VISIT (unrecogniz ed section and content) Reason Comments left 2nd, 3rd, 4th toes discolored, pain ful Pain improved from yesterday Care Teams (unrecognized sec tion and content) [...] 2023 End: August 24, 2023 Cathie Vargas , SUPERVISOR PLEATING Active Star t: August 24, 2023 End: [...] End: November 07, 2023 Cathie Vargas , SUPERVISOR PLEATING Active Star t: November 07, 2023 End: [...] 28, 2023 End: July 28, 2023 Cathie C Scally , SUPERVISOR PLEATING Attending Provider Active Start: July 28, 2023 End: July 28, 2023 Team Status: Inactive Member Role Status Dates Shayy Dela Cruz MD Attending Provider Active St art: April 15, 2023 End: April 15, 2023 Team Status: Inactive Member Role Status Dates Cathie Vargas , SUPERVISOR PLEATING Attending Provider Active Start: May 25, 2023 [...] End: June 14, 2023 Cathie Vargas , SUPERVISOR PLEATING Active Star t: June 14, 2023 End: [...] 2023 End: December 13, 2023 Cathie Vargas , SUPERVISOR PLEATING Attending Provider Active Start: December 13, 2023 End: December 13, 2023 Team Status: Inactive Member Role Status Susan Dela Cruz MD Primary Care Provider Active Start: January 17, 2024 End: January 17, 2024 Cathie Vargas , SUPERVISOR PLEATING Active Star t: January 17, 2024 End: January 17, 2024 Brittani Collier RN Attending Provider Active Start: January 17, 2024 End: January 17, 2024 Team Status: Inactive Member Role Status Susan Dela Cruz MD Primary Care Provider Active Start: February 23, 2024 End: February 23, 2024 Cathiesay Vargas , SUPERVISOR PLEATING Attending Provider Active Start: February 23, 2024 End: February 23, 2024 Team Status: Inactive Member Role Status Dates Cathie Vargas APRN Attending Provider Active Start: February 23, 2024 End: February 23, 2024 Team Status: Active Member Role Status Dates Brittney Drummond CMA Attending Provider Active Start: February 28, 2024 Goals (unrecognized section and content) Goals [...] BE BASED ON THE PRIMARY CLINICAL RECORDS. [employer] [facility]. provides no warranty or guarantee of the accuracy or completeness of information in this document.
[2024-06-19 17:29] VITALS: BP 170/80; PULSE 97; TEMP 36.6; O2SAT 91; BMI 38.6
--- NOTE | 2024-06-19 18:24 | ECG_ITS ---
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
[2024-06-19 19:05] VITALS: BP 162/83; PULSE 88; TEMP 36.8; O2SAT 96
[2024-06-19 19:14] LABS: Bilirubin Urine NEGATIVE (NEGATIVE); Blood Urine NEGATIVE (NEGATIVE); Clarity Urine CLEAR (CLEAR); Color Urine LT. YELLOW (YELLOW); Glucose Urine UA NEGATIVE (NEGATIVE); Ketones Urine NEGATIVE (NEGATIVE); Leukocyte Esterase Urine NEGATIVE (NEGATIVE); Nitrite Urine NEGATIVE (NEGATIVE); Protein Urine NEGATIVE (NEG/TRACE); Specific Gravity Urine <=1.005 (1.005-1.025); Urobilinogen Urine 0.2 EU/dL (0.2-1.0)
--- NOTE | 2024-06-19 19:14 | ED_ITS ---
HPI HPI - General Adult General Chief complaint: Nausea/Vomiting/Diarrhea Stated complaint: vomiting Time Seen by Provider: 06/19/24 17:29 Source: patient Mode of arrival: Wheelchair Limitations: no limitations History of Present Illness HPI narrative: 54-year-old female to the emergency department with chief complaint of nausea vomiting. She reports a cramping upper abdominal pain. This started today. Some loose bowel movements today. She denies any fever, sweats, chills. No medications taken. Related Data Home Medications ?Medication ?Instructions ?Recorded ?Confirmed albuterol sulfate 90 mcg/actuation 2 inh inhalation PRN PRN shortness 12/31/22 06/19/24 aerosol inhaler of breath or wheezing aspirin 81 mg capsule 81 mg PO DAILY 12/31/22 06/19/24 atorvastatin 40 mg tablet 40 mg PO DAILY 12/31/22 06/19/24 carvedilol 6.25 mg tablet 6.25 mg PO Q12H 12/31/22 06/19/24 esomeprazole magnesium 40 mg 40 mg PO Q24H 12/31/22 06/19/24 capsule,delayed release fluticasone propionate 110 3 puff inhalation PRN PRN 12/31/22 06/19/24 mcg/actuation HFA aerosol inhaler bronchospasm (Flovent HFA) glipizide 10 mg tablet 5 mg PO BID 12/31/22 06/19/24 insulin glargine U-300 conc 300 95 unit subcut QAM 12/31/22 06/19/24 unit/mL (1.5 mL) subcutaneous pen (Toujameso SoloStar U-300 Insulin) insulin lispro 100 unit/mL 1 sliding scale dose subcut TID 12/31/22 06/19/24 subcutaneous pen losartan 25 mg tablet 25 mg PO DAILY 12/31/22 06/19/24 metformin 1,000 mg tablet 500 mg PO BID 12/31/22 06/19/24 famotidine 20 mg tablet 20 mg PO QPM 04/19/24 06/19/24 meloxicam 15 mg tablet mg 04/19/24 nitroglycerin 0.4 mg sublingual 0.4 mg sublingual Q5M PRN chest 04/19/24 06/19/24 tablet pain fluticasone propionate 50 2 spray intranasal DAILY 06/19/24 06/19/24 mcg/actuation nasal spray,suspension hydrocodone 5 mg-acetaminophen 325 1 tab PO Q6H PRN pain 06/19/24 06/19/24 mg tablet Previous Rx's ?Medication ?Instructions ?Recorded amoxicillin 875 mg-potassium 1 tab PO Q12H #20 tabs 06/07/24 clavulanate 125 mg tablet sulfamethoxazole 800 1 tab PO BID #20 tabs 06/07/24 mg-trimethoprim 160 mg tablet (Bactrim DS) Allergies Allergy/AdvReac Type Severity Reaction Status Date / Time tomato Allergy Severe Nausea Verified 06/19/24 17:29 latex Allergy Intermediate itch Verified 06/19/24 17:29 insulin lispro Allergy Mild Rash Verified 06/19/24 17:29 codeine Allergy Vomiting Verified 06/19/24 17:29 Opioid HPI Opioid Management Most Recent Opioid Data: Last Pain Scale 8 06/07/24 17:19 06/07/24 Review of Systems ROS Status of ROS 10 or more systems reviewed and unremark able except as noted in history and below [facility] Medical History (Updated 06/19/24 @ 19:16 by Moshe Drummond MD) Deep vein thrombosis ?I82.409 - Acute embolism and thrombosis of unspecified deep veins of unspecified lower extremity (ICD-10) Asthma ?J45.909 - Unspecified asthma, uncomplicated (ICD-10) Dyspnea on exertion ?R06.09 - Other forms of dyspnea (ICD-10) Nausea ?R11.0 - Nausea (ICD-10) Neuropathy ?G62.9 - Polyneuropathy, unspecified (ICD-10) CAD (coronary artery disease) ?I25.10 - Atherosclerotic heart disease of [place] coronary artery without angina pectoris (ICD-10) Toe necrosis ?I96 - Gangrene, not elsewhere classified (ICD-10) Diabetes ?E11.9 - Type 2 diabetes mellitus without complications (ICD-10) Diabetic foot ulcer ?E11.621 - Type 2 diabetes mellitus with foot ulcer (ICD-10) ?L97.509 - Non-pressure chronic ulcer of other part of unspecified foot with unspecified severity (ICD-10) Disorder of arteries and arterioles ?I77.9 - Disorder of arteries and arterioles, unspecified (ICD-10) Chronic osteomyelitis involving left ankle and foot ?M86.672 - Other chronic osteomyelitis, left ankle and foot (ICD-10) Gangrene ?I96 - Gangrene, not elsewhere classified (ICD-10) Surgical History (Updated 06/19/24 @ 13:36 by Clarissa Navarrete NP) History of appendectomy ?Z90.49 - Acquired absence of other specified parts of digestive tract (ICD- 10) History of cholecystectomy ?Z90.49 - Acquired absence of other specified parts of digestive tract (ICD- 10) History of arthroscopy of shoulder ?Z98.890 - Other specified postprocedural states (ICD-10) S/P arterial stent (~2002) ?Z95.9 - Presence of cardiac and vascular implant and graft, unspecified (ICD-10) Family History (Updated 06/19/24 @ 13:36 by Clarissa Navarrete NP) Other Family history of diabetes mellitus Family history of heart disease Family history of hypertension Family history of myocardial infarction Social History (Updated 06/19/24 @ 13:31 by Clarissa Navarrete NP) Within the past year, how often did you have a drink containing alcohol: never Score interpretation: A score less than 3 is consistent with normal alcohol consumption. Smoking status: Never smoker Non-prescribed substance use: denies use Highest level of school completed/degree received: high school graduate Little interest or pleasure in doing things: not at all Feeling down, depressed, or hopeless: not at all Exam Narrative Exam Narrative: VITALS: I have reviewed the triage vital signs. GENERAL: Well developed, well appearing adult in no acute distress. NEURO: Alert and oriented. Moves all extremities. Face is symmetric and expressive. EYES: PERRL. No scleral icterus or conjunctival injection. No discharge. HENT: Normocephalic, atraumatic. Hearing is grossly intact. Nares grossly patent and without discharge. Mucous membranes moist. NECK: No JVD. Patient moves neck without restriction. CARDIO: Rhythm regular. Normal rate. No murmur, rub, or gallop. Pulses equal bilaterally in the upper and lower extremity. No lower extremity edema. PULM: Lungs clear to auscultation in [place]. No wheezes, rales, or rhonchi. No conversational dyspnea. No splinting, stridor, or accessory muscle use. GI/: Abdomen is soft and non-tender. Normoactive bowel sounds. EXTREMITIES: Symmetric muscle bulk. No joint swelling. No clubbing, cyanosis, or deformity. SKIN: Warm and dry. Normal turgor. No rash or lesions appreciated. PSYCH: Mood, affect, and interaction is appropriate to the setting. Constitutional Vital Signs, click to edit/add: Last Vital Signs Temp 98.2 F 06/19/24 19:05 Pulse 88 06/19/24 19:05 Resp 16 06/19/24 19:05 BP 162/83 H 06/19/24 19:05 Pulse Ox 96 06/19/24 19:05 O2 Del Method Room Air 06/19/24 17:29 Course Vital Signs Vital signs: Vital Signs Temperature 98 F 06/19/24 17:29 Pulse Rate 97 H 06/19/24 17:29 Respiratory Rate 18 06/19/24 17:29 Blood Pressure 170/80 H 06/19/24 17:29 Pulse Oximetry 91 L 06/19/24 17:29 Oxygen Delivery Method Room Air 06/19/24 17:29 Temperature 98.2 F 06/19/24 19:05 Pulse Rate 88 06/19/24 19:05 Respiratory Rate 16 06/19/24 19:05 Blood Pressure 162/83 H 06/19/24 19:05 Pulse Oximetry 96 06/19/24 19:05 Oxygen Delivery Method Room Air 06/19/24 17:29 Medical Decision Making MDM Narrative Medical decision making narrative: 54-year-old female to the emergency department chief complaint of cramping upper abdominal pain, nausea vomiting and diarrhea. Vital stable, the patient is afebrile. Abdominal examination is benign. Basic labs, abdominal series are ordered. Zofran and fluids ordered for symptom control. Care was signed out to Dr. Roa. Medical Records Medical records reviewed: Yes I reviewed the patient's medical records Discharge Plan Discharge Chief Complaint: Nausea/Vomiting/Diarrhea Clinical Impression: Nausea & vomiting Patient Disposition: Still a Patient Prescriptions / Home Meds: No Action albuterol sulfate 90 mcg/actuation HFA aerosol inhaler 2 inh INHALATION PRN PRN (Reason: shortness of breath or wheezing) insulin lispro 100 unit/mL insulin pen 1 sliding scale dose SUBCUT TID insulin glargine U-300 conc [Toujeo SoloStar U-300 Insulin] 300 unit/mL (1.5 mL) insulin pen 95 unit SUBCUT QAM aspirin 81 mg capsule 81 mg PO DAILY atorvastatin 40 mg tablet 40 mg PO DAILY losartan 25 mg tablet 25 mg PO DAILY fluticasone propionate [Flovent HFA] 110 mcg/actuation HFA aerosol inhaler 3 puff INHALATION PRN PRN (Reason: bronchospasm) esomeprazole magnesium 40 mg capsule,delayed release(DR/EC) 40 mg PO Q24H glipizide 10 mg tablet 5 mg PO BID metformin 1,000 mg tablet 500 mg PO BID carvedilol 6.25 mg tablet 6.25 mg PO Q12H amoxicillin-pot clavulanate 875-125 mg tablet 1 tab PO Q12H Qty: 20 0RF sulfamethoxazole-trimethoprim [Bactrim DS] 800-160 mg tablet 1 tab PO BID Qty: 20 0RF meloxicam 15 mg tablet famotidine 20 mg tablet 20 mg PO QPM nitroglycerin 0.4 mg tablet, sublingual 0.4 mg sublingual Q5M PRN (Reason: chest pain) fluticasone propionate 50 mcg/actuation spray,suspension 2 spray INTRANASAL DAILY hydrocodone-acetaminophen 5-325 mg tablet 1 tab PO Q6H PRN (Reason: pain) Print Language: Macanese Referrals: Shayy Ly MD [Primary Care Provider] - 1 week
[2024-06-19 19:20] LABS: Bacteria Urine NONE SEEN #/HPF (NONE SEEN); Cast Seen? NONE SEEN #/LPF (NONE SEEN); Crystals Seen? None Seen #/HPF (None Seen); Mucus Urine NONE SEEN (NONE SEEN); RBC Urine 0-2 #/HPF (0-2); Squamous Epithelial Cell Urine RARE #/LPF (NONE/RARE); Urine Culture Indicated NO; WBC Urine 0-2 #/HPF (NONE SEEN)
[2024-06-19 20:04] LABS: Basophils Absolute Auto 0.1 10^3/uL (0.0-0.1); Basophils Percent Auto 0.6 % (0.2-2.0); Eosinophils Absolute Auto 0.2 10^3/uL (0.0-0.7); Eosinophils Percent Auto 2.1 % (0.9-7.0); Hematocrit 40.7 % (36.0-48.0); Hemoglobin 13.8 g/dL (12.0-16.0); Immature Granulocytes Abs Auto 0.01 10^3/uL (0.00-0.03); Immature Granulocytes Pct Auto 0.1 % (0.0-0.5); Lymphocytes Absolute Auto 2.4 10^3/uL (1.2-3.8); Lymphocytes Percent Auto 28.2 % (20.5-60.0); Mean Corpuscular HGB Conc 33.9 g/dL (29.9-35.2); Mean Corpuscular Hemoglobin 29.8 pg (26.7-34.0); Mean Corpuscular Volume 87.9 fL (81.0-99.0); Monocytes Absolute Auto 0.5 10^3/uL (0.3-0.8); Monocytes Percent Auto 5.8 % (1.7-12.0); Neutrophils Absolute Auto 5.4 10^3/uL (1.4-6.5); Neutrophils Percent Auto 63.2 % (43.0-75.0); Platelet Count 364 10^3/uL (150-450); Red Blood Count 4.63 10^6/uL (4.20-5.40); Red Cell Distribution Width 13.2 % (11.0-15.0); White Blood Count 8.5 10^3/uL (4.0-11.0)
[2024-06-19] MEDS: ONDANSETRON PF 4 MG/2 ML VIAL IV (20:05)
[2024-06-19] MEDS: 0.9 % SODIUM CHLORIDE 1,000 ML 999 ML IV (20:05)
[2024-06-19 20:17] LABS: Alanine Aminotransferase 44 U/L (14-59); Albumin Globulin Ratio 0.8; Albumin Level 3.3 g/dL (3.4-5.0); Alkaline Phosphatase 110 U/L (46-116); Anion Gap 11.3; Aspartate Amino Transferase 23 U/L (15-37); BUN Creatinine Ratio 13.6; Bilirubin Total 0.3 mg/dL (0.2-1.0); Calcium 9.3 mg/dL (8.5-10.1); Carbon Dioxide 27.9 mmol/L (21.0-32.0); Chloride 102 mmol/L (98-107); Estimated GFR (African America >60 (>=60 mL/min/1.73m^2); Estimated GFR (Non-African Ame >60 (>=60 mL/min/1.73m^2); Globulin 4.3 g/dL; Glucose 175 mg/dL (74-106); Potassium 4.2 mmol/L (3.5-5.1); Sodium 137 mmol/L (136-145); Total Protein 7.6 g/dL (6.4-8.2)
--- NOTE | 2024-06-19 20:32 | ED_ITS ---
HPI - Nausea/Vomiting/Diarrhea General Chief complaint: Nausea/Vomiting/Diarrhea Stated complaint: vomiting Time Seen by Provider: 06/19/24 17:29 Source: patient Mode of arrival: Wheelchair Limitations: no limitations History of Present Illness HPI Narrative: 54-year-old female presented to the emergency department and was initially seen by her dentist and signed out to me after discussing the case with him sammyvictorino anderson. Please see his full history and physical exam. Related Data Home Medications ?Medication ?Instructions ?Recorded ?Confirmed albuterol sulfate 90 mcg/actuation 2 inh inhalation PRN PRN shortness 12/31/22 06/19/24 aerosol inhaler of breath or wheezing aspirin 81 mg capsule 81 mg PO DAILY 12/31/22 06/19/24 atorvastatin 40 mg tablet 40 mg PO DAILY 12/31/22 06/19/24 carvedilol 6.25 mg tablet 6.25 mg PO Q12H 12/31/22 06/19/24 esomeprazole magnesium 40 mg 40 mg PO Q24H 12/31/22 06/19/24 capsule,delayed release fluticasone propionate 110 3 puff inhalation PRN PRN 12/31/22 06/19/24 mcg/actuation HFA aerosol inhaler bronchospasm (Flovent HFA) glipizide 10 mg tablet 5 mg PO BID 12/31/22 06/19/24 insulin glargine U-300 conc 300 95 unit subcut QAM 12/31/22 06/19/24 unit/mL (1.5 mL) subcutaneous pen (Toujeo SoloStar U-300 Insulin) insulin lispro 100 unit/mL 1 sliding scale dose subcut TID 12/31/22 06/19/24 subcutaneous pen losartan 25 mg tablet 25 mg PO DAILY 12/31/22 06/19/24 metformin 1,000 mg tablet 500 mg PO BID 12/31/22 06/19/24 famotidine 20 mg tablet 20 mg PO QPM 04/19/24 06/19/24 meloxicam 15 mg tablet mg 04/19/24 nitroglycerin 0.4 mg sublingual 0.4 mg sublingual Q5M PRN chest 04/19/24 06/19/24 tablet pain fluticasone propionate 50 2 spray intranasal DAILY 06/19/24 06/19/24 mcg/actuation nasal spray,suspension hydrocodone 5 mg-acetaminophen 325 1 tab PO Q6H PRN pain 06/19/24 06/19/24 mg tablet Previous Rx's ?Medication ?Instructions ?Recorded amoxicillin 875 mg-potassium 1 tab PO Q12H #20 tabs 06/07/24 clavulanate 125 mg tablet sulfamethoxazole 800 1 tab PO BID #20 tabs 06/07/24 mg-trimethoprim 160 mg tablet (Bactrim DS) ondansetron 4 mg disintegrating 4 mg PO Q6H PRN nausea and 06/19/24 tablet vomiting #20 tabs Allergies Allergy/AdvReac Type Severity Reaction Status Date / Time tomato Allergy Severe Nausea Verified 06/19/24 17:29 latex Allergy Intermediate itch Verified 06/19/24 17:29 insulin lispro Allergy Mild Rash Verified 06/19/24 17:29 codeine Allergy Vomiting Verified 06/19/24 17:29 [facility] Medical History (Updated 06/19/24 @ 20:29 by Adriano Roa MD) Deep vein thrombosis ?I82.409 - Acute embolism and thrombosis of unspecified deep veins of unspecified lower extremity (ICD-10) Asthma ?J45.909 - Unspecified asthma, uncomplicated (ICD-10) Dyspnea on exertion ?R06.09 - Other forms of dyspnea (ICD-10) Nausea ?R11.0 - Nausea (ICD-10) Neuropathy ?G62.9 - Polyneuropathy, unspecified (ICD-10) CAD (coronary artery disease) ?I25.10 - Atherosclerotic heart disease of [place] coronary artery without angina pectoris (ICD-10) Toe necrosis ?I96 - Gangrene, not elsewhere classified (ICD-10) Diabetes ?E11.9 - Type 2 diabetes mellitus without complications (ICD-10) Diabetic foot ulcer ?E11.621 - Type 2 diabetes mellitus with foot ulcer (ICD-10) ?L97.509 - Non-pressure chronic ulcer of other part of unspecified foot with unspecified severity (ICD-10) Disorder of arteries and arterioles ?I77.9 - Disorder of arteries and arterioles, unspecified (ICD-10) Chronic osteomyelitis involving left ankle and foot ?M86.672 - Other chronic osteomyelitis, left ankle and foot (ICD-10) Gangrene ?I96 - Gangrene, not elsewhere classified (ICD-10) Surgical History (Updated 06/19/24 @ 13:36 by Clarissa Navarrete NP) History of appendectomy ?Z90.49 - Acquired absence of other specified parts of digestive tract (ICD- 10) History of cholecystectomy ?Z90.49 - Acquired absence of other specified parts of digestive tract (ICD- 10) History of arthroscopy of shoulder ?Z98.890 - Other specified postprocedural states (ICD-10) S/P arterial stent (~2002) ?Z95.9 - Presence of cardiac and vascular implant and graft, unspecified (ICD-10) Family History (Updated 06/19/24 @ 13:36 by Clarissa Navarrete NP) Other Family history of diabetes mellitus Family history of heart disease Family history of hypertension Family history of myocardial infarction Social History (Updated 06/19/24 @ 13:31 by Clarissa Navarrete NP) Within the past year, how often did you have a drink containing alcohol: never Score interpretation: A score less than 3 is consistent with normal alcohol consumption. Smoking status: Never smoker Non-prescribed substance use: denies use Highest level of school completed/degree received: high school graduate Little interest or pleasure in doing things: not at all Feeling down, depressed, or hopeless: not at all Exam Constitutional Vital Signs, click to edit/add: Last Vital Signs Temp 98.2 F 06/19/24 19:05 Pulse 88 06/19/24 19:05 Resp 16 06/19/24 19:05 BP 162/83 H 06/19/24 19:05 Pulse Ox 96 06/19/24 19:05 O2 Del Method Room Air 06/19/24 17:29 Course Vital Signs Vital signs: Vital Signs Temperature 98 F 06/19/24 17:29 Pulse Rate 97 H 06/19/24 17:29 Respiratory Rate 18 06/19/24 17:29 Blood Pressure 170/80 H 06/19/24 17:29 Pulse Oximetry 91 L 06/19/24 17:29 Oxygen Delivery Method Room Air 06/19/24 17:29 Temperature 98.2 F 06/19/24 19:05 Pulse Rate 88 06/19/24 19:05 Respiratory Rate 16 06/19/24 19:05 Blood Pressure 162/83 H 06/19/24 19:05 Pulse Oximetry 96 06/19/24 19:05 Oxygen Delivery Method Room Air 06/19/24 17:29 MDM - Nausea/Vomiting/Diarrhea MDM Narrative Medical decision making narrative: Blood work is, white count is 8.5. X-rays of the abdomen are consistent with mi ld constipation and no other acute findings. She was recommended MiraLAX and prescribed Zofran and she is able to be discharged home. Treatment diagnosis and follow-up were discussed with the patient. Differential Diagnosis Differential diagnosis: Likely gastroenteritis, dehydration and other (Constipation) Lab Data Attestation: I reviewed the patient's lab results. Labs: Lab Results 06/19/24 06/19/24 Range/Units 18:57 19:48 WBC 8.5 (4.0-11.0) 10^3/uL RBC 4.63 (4.20-5.40) 10^6/uL Hgb 13.8 (12.0-16.0) g/dL Hct 40.7 (36.0-48.0) % MCV 87.9 (81.0-99.0) fL MCH 29.8 (26.7-34.0) pg MCHC 33.9 (29.9-35.2) g/dL RDW 13.2 (11.0-15.0) % Plt Count 364 (150-450) 10^3/uL MPV 10.0 (9.5-13.5) fL Neut % (Auto) 63.2 (43.0-75.0) % Lymph % (Auto) 28.2 (20.5-60.0) % [place] % (Auto) 5.8 (1.7-12.0) % Eos % (Auto) 2.1 (0.9-7.0) % Baso % (Auto) 0.6 (0.2-2.0) % Neut # (Auto) 5.4 (1.4-6.5) 10^3/uL Lymph # (Auto) 2.4 (1.2-3.8) 10^3/uL [place] # (Auto) 0.5 (0.3-0.8) 10^3/uL Eos # (Auto) 0.2 (0.0-0.7) 10^3/uL Baso # (Auto) 0.1 (0.0-0.1) 10^3/uL Abs Immat Gran (auto) 0.01 (0.00-0.03) 10^3/uL Imm/Tot Granulo (auto) 0.1 (0.0-0.5) % Sodium 137 (136-145) mmol/L Potassium 4.2 (3.5-5.1) mmol/L Chloride 102 (98-107) mmol/L Carbon Dioxide 27.9 (21.0-32.0) mmol/L Anion Gap 11.3 BUN 12.0 (7.0-18.0) mg/dL Creatinine 0.88 (0.55-1.02) mg/dL Est GFR ( Amer) >60 (>=60 mL/min/1.73m^2) Est GFR (Non-Af Amer) >60 (>=60 mL/min/1.73m^2) BUN/Creatinine Ratio 13.6 Glucose 175 H (74-106) mg/dL Calcium 9.3 (8.5-10.1) mg/dL Total Bilirubin 0.3 (0.2-1.0) mg/dL AST 23 (15-37) U/L ALT 44 (14-59) U/L Alkaline Phosphatase 110 (46-116) U/L Total Protein 7.6 (6.4-8.2) g/dL Albumin 3.3 L (3.4-5.0) g/dL Globulin 4.3 g/dL Albumin/Globulin Ratio 0.8 Lipase 28.0 (16.0-77.0) U/L Urine Color Lt. yellow (YELLOW) Urine Clarity Clear (CLEAR) Urine pH 6.0 (5.0-9.0) Ur Specific [place] <=1.005 A (1.005-1.025) Urine Protein Negative (NEG/TRACE) mg/dL Urine Glucose (UA) Negative (NEGATIVE) mg/dL Urine Ketones Negative (NEGATIVE) mg/dL Urine Occult Blood Negative (NEGATIVE) Urine Nitrite Negative (NEGATIVE) Urine Bilirubin Negative (NEGATIVE) Urine Urobilinogen 0.2 (0.2-1.0) EU/dL Ur Leukocyte Esterase Negative (NEGATIVE) Urine RBC 0-2 (0-2) #/HPF Urine WBC 0-2 A (NONE SEEN) #/HPF Ur Squamous Epith Cells Rare (NONE/RARE) #/LPF Urine Crystals None seen (None Seen) #/HPF Urine Bacteria None seen (NONE SEEN) #/HPF Urine Casts None seen (NONE SEEN) #/LPF Urine Mucus None seen (NONE SEEN) Ur Culture Indicated? No Imaging Data Abdominal x-ray: Radiologist's impression: Nonobstructive bowel gas pattern, mild constipation throughout the colon ECG Data Attestation: I personally reviewed and interpreted this ECG as follows: (EKG on my interpretation shows sinus rhythm with a rate of 89 and no acute change) Discharge Plan Discharge Chief Complaint: Nausea/Vomiting/Diarrhea Clinical Impression: Nausea & vomiting, Constipation Patient Disposition: Home, Self-Care Time of Disposition Decision: 20:29 Condition: Good Mode of Transportation: Private Vehicle Prescriptions / Home Meds: New ondansetron 4 mg tablet,disintegrating 4 mg PO Q6H PRN (Reason: nausea and vomiting) Qty: 20 0RF No Action albuterol sulfate 90 mcg/actuation HFA aerosol inhaler 2 inh INHALATION PRN PRN (Reason: shortness of breath or wheezing) insulin lispro 100 unit/mL insulin pen 1 sliding scale dose SUBCUT TID insulin glargine U-300 conc [Toujeo SoloStar U-300 Insulin] 300 unit/mL (1.5 mL) insulin pen 95 unit SUBCUT QAM aspirin 81 mg capsule 81 mg PO DAILY atorvastatin 40 mg tablet 40 mg PO DAILY losartan 25 mg tablet 25 mg PO DAILY fluticasone propionate [Flovent HFA] 110 mcg/actuation HFA aerosol inhaler 3 puff INHALATION PRN PRN (Reason: bronchospasm) esomeprazole magnesium 40 mg capsule,delayed release(DR/EC) 40 mg PO Q24H glipizide 10 mg tablet 5 mg PO BID metformin 1,000 mg tablet 500 mg PO BID carvedilol 6.25 mg tablet 6.25 mg PO Q12H amoxicillin-pot clavulanate 875-125 mg tablet 1 tab PO Q12H Qty: 20 0RF sulfamethoxazole-trimethoprim [Bactrim DS] 800-160 mg tablet 1 tab PO BID Qty: 20 0RF meloxicam 15 mg tablet famotidine 20 mg tablet 20 mg PO QPM nitroglycerin 0.4 mg tablet, sublingual 0.4 mg sublingual Q5M PRN (Reason: chest pain) fluticasone propionate 50 mcg/actuation spray,suspension 2 spray INTRANASAL DAILY hydrocodone-acetaminophen 5-325 mg tablet 1 tab PO Q6H PRN (Reason: pain) Print Language: Icelandic Instructions: Constipation (ED), Acute Nausea and Vomiting (ED) Additional Instructions: [id number] MiraLAX for constipation Referrals: Shayy Ly MD [Primary Care Provider] - 1 week
--- NOTE | 2024-06-19 20:33 | PC.NURSE ---
this patient sitting upright on the bed looking at her cell phone. this patient voices her nausea is better now. this patient voices no concerns and shows no signs of distress
[2024-06-19 20:38] VITALS: BP 154/80; PULSE 88; TEMP 36.8; O2SAT 96
--- NOTE | 2024-06-19 20:51 | PC.NURSE ---
i gave this patient verbal and paper discharge orders along with 1 e-script and this patient voices yes to undersatnding these. at time of discharge this patient voices no concerns and shows no signs of distress
== END 2024-06-19 20:52 | disposition home or self-care (01) ==
PROVIDERS: Student in an Organized Health Care Education/Training Program; Emergency Provider Emergency Medicine; PCP Family Medicine
DX: R11.2 Nausea with vomiting, unspecified (principal); K59.00 Constipation, unspecified; R10.10 Upper abdominal pain, unspecified; E11.621 Type 2 diabetes mellitus with foot ulcer; L97.529 Non-pressure chronic ulcer of other part of left foot with unspecified severity; I25.10 Atherosclerotic heart disease of native coronary artery without angina pectoris; Z01.810 Encounter for preprocedural cardiovascular examination; Z01.812 Encounter for preprocedural laboratory examination; Z90.49 Acquired absence of other specified parts of digestive tract; R94.31 Abnormal electrocardiogram [ECG] [EKG]
CPT/HCPCS: 36415; 71046; 74019; 80048; 80053; 81001; 83690; 85025; 85610; 85730; 93005; 96361; 96374; 99285; J2405

== ENCOUNTER 2024-06-21 12:47 | Outpatient (OUT) | payer MEDICARE, MEDICAID, SELFPAY ==
--- NOTE | 2024-06-21 13:00 | CA_ITS ---
Patient Name: COLETTE DINH MR#: [id number] : 1970 Exam Date: 06/21/2024 Ordering Doctor: MARQUES MOROCHO M.D. ECHOCARDIOGRAM REPORT PROCEDURE: CA ECHO DOPPLER COMPLETE INDICATIONS: Abnormal ECG, cardiovascular disease, cardiac stents x 7, hypertension, diabetes COMPARISON: None. DESCRIPTION: COMPLETE ECHOCARDIOGRAM Real-time transthoracic echocardiography with 2D, M-mode, spectral and color flow Doppler performed. QUALITY: Technical quality was good. LEFT VENTRICLE: Normal chamber size. Mild concentric left ventricular hypertrophy. There is hypokinesis of the distal anterior septum and apex. Low normal global systolic function. LV EF: Normal left ventricular ejection fraction, (50%). DIASTOLIC: Diastolic function is indeterminate. ATRIAL SEPTUM: Visually appears intact. LEFT ATRIUM: Mildly dilated. RIGHT ATRIUM: Normal chamber size. RIGHT VENTRICLE: Normal chamber size. Normal right ventricular systolic function. TRICUSPID VALVE: Normal mobility and thickness. No stenosis with no regurgitation. Unable to assess right-sided pressures due to lack of measurable tricuspid regurgitation. MITRAL VALVE: Normal mobility and thickness. No evidence of mitral valve stenosis. Mild mitral annular calcification. Trivial mitral regurgitation. AORTIC VALVE: Normal trileaflet appearance. No visible sclerosis. Normal leaflet mobility. No evidence of aortic valve stenosis. No aortic regurgitation. AORTIC ROOT: Normal diameter and appearance. Ascending aorta is normal in size (3.2 cm). PULMONIC VALVE: Normal thickness and mobility. No stenosis. No regurgitation. PERICARDIUM: No evidence of pericardial effusion. IVC: Collapses with inspirations. IVC is normal in size. PLEURA: CONCLUSION: 1. Global left ventricular systolic function is at the lower limits of normal. Estimated LVEF is 50%. There is hypokinesis of the distal anterior septum and apex. Echocardiographic contrast can provide better visualization of segmental wall motion. 2. Normal right ventricular size and systolic function. 3. No significant valvular dysfunction. 4. Unable to assess right-sided pressures due to lack of measurable tricuspid regurgitation. Adult Echocardiography Procedure Report Left Ventricle LVEDD (3.7 - 5.6 cm): 3.76 cm LVESD (2.2 - 4.0 cm): 2.74 cm LVIVS thickness (0.6 - 1.2 cm): 1.13 cm LVPW thickness (0.5 - 1.0 cm): 1.39 cm e': 0.10 m/s E - e': 8.99 LVOT Max Gradient: 5.89 mm[Hg] LVOT Area (cm2): 1.21 m/s Peak Velocity (LVOT): 1.21 m/s Mean Velocity (LVOT): 0.82 m/s LVOT Diameter 2.03 cm Left Atrium LA Volume Index (2D A2C): 32.41 ml/m2 Left Atrium Systolic Dimension: 4.65 cm Mitral Valve MV E to A Ratio: 0.87 Mitral Valve A-Wave Peak Velocity: 1.06 m/s Mitral Valve E-Wave Peak Velocity: 0.93 m/s Right Ventricle Aorta AO Root Diam: 3.35 cm Ascending Ao Diam: 3.21 cm Aortic Valve AoV Area (Peak Zak): 2.96 cm2, 2.96 cm2 AoV Area (VTI): 3.20 cm2, 3.20 cm2 Peak Velocity(Antegrade Flow): 1.33 m/s Peak Gradient(Antegrade Flow): 7.08 mm[Hg] Mean Velocity(Antegrade Flow): 0.96 m/s Mean Gradient(Antegrade Flow): 4.13 mm[Hg] Velocity Time Integral: 31.27 cm Tricuspid Valve Pulmonic Valve Mean Gradient: 2.91 mm[Hg] Mean Velocity: 0.80 m/s Peak Velocity: 1.23 m/s, 1.16 m/s Peak Gradient: 5.41 mm[Hg], 6.01 mm[Hg] Right Atrium Right Atrium Systolic Pressure: 29.55 ml, 29.55 ml Dictated by: Zane Navarrete M.D. on 06/21/2024 at 17:41 Approved by: Zane Navarrete M.D. on 06/21/2024 at 17:47
== END 2024-06-21 12:48 | disposition home or self-care (01) ==
LOC: CARD 12:47
PROVIDERS: PCP Family Medicine; Visit Provider Internal Medicine Cardiovascular Disease
DX: R94.31 Abnormal electrocardiogram [ECG] [EKG] (principal); I25.10 Atherosclerotic heart disease of native coronary artery without angina pectoris
CPT/HCPCS: 93306

== ENCOUNTER 2024-06-26 08:59 | Outpatient (OUT) | payer MEDICARE, MEDICAID, SELFPAY ==
--- NOTE | 2024-06-26 09:00 | CA_ITS ---
Patient Name: COLETTE DINH MR#: [id number] : 1970 Exam Date: 06/26/2024 Ordering Doctor: MARQUES MOROCHO M.D. ECHOCARDIOGRAM REPORT PROCEDURE: CA ECHO LIMITED INDICATIONS: Evaluate EF with lumason COMPARISON: None. DESCRIPTION: Limited ECHOCARDIOGRAM Real-time transthoracic echocardiography with 2D and M-mode performed. QUALITY: Lumason contrast was administered due to suboptimal imaging for left ventricular opacification to improve delineation of endocardial boarders. LEFT VENTRICLE: The left ventricle is normal in size and systolic function is hyperdynamic. LV EF: Hyperdynamic left ventricular ejection fraction, (75%). DIASTOLIC: ATRIAL SEPTUM: LEFT ATRIUM: RIGHT ATRIUM: RIGHT VENTRICLE: Right ventricle appears normal in size with borderline systolic function. TRICUSPID VALVE: MITRAL VALVE: AORTIC VALVE: AORTIC ROOT: PULMONIC VALVE: PERICARDIUM: No evidence of pericardial effusion. IVC: PLEURA: CONCLUSION: 1. Normal left ventricular size with hyperdynamic systolic function. LVEF is 75%. 2. Lumason contrast was administered for better endocardial border definition. Dictated by: Zane Navarrete M.D. on 06/26/2024 at 15:59 Approved by: Zane Navarrete M.D. on 06/26/2024 at 16:01
--- OUTSIDE RECORDS SUMMARY | 2024-06-26 09:11 | XMS_ITS | CCD ---
Author Organization [facility] Care Team Providers Care [place] Planning Manager Name Role Phone PHYSICIAN, DEFAULT Unavailable [...] Unavailable DANIEL, JORDYN Ayon Attending Unavailable JORDYN BRUCE Admitting Unavailable Narinder Lan Consulting Unavailable JOSE DE JESUS, DR SHAYY Delgado Primary Care Unavailable JORDYN BRUCE Consulting Unavailable DELA CRUZ, DR SHAYY Delgado Primary Care Unavailable MARKER ., DR FOWLER Attending Unavailable GRECHNY .SHAY Consulting Unavailjia delgado MARKER ., DR FOWLER [...] CRUZ, DR SHAYY Delgado Primary Care Unavailable DELA CRUZ, DR SHAYY Delgado Primary Care Unavailable MISC, DR IVERSON Consulting Unavailable MISC, DR IVERSON Attending Unavailable MISC, DR IVERSON Admitting Unavailable DELA CRUZ, DR SHAYY Delgado Attending Unavailable DELA CRUZ, DR SHAYY Delgado Admitting Unavailable DELA CRUZ, DR SHAYY Delgado Primary Care Unavailable Zieber, Narinder Consulting Unavailable DR SHAYY DELA CRUZ Consulting Unavailable Mary Lynne Unavailable Sam, Cathie Unavailable MD Shayy Dela Cruz Primary Care Provider MD Shayy Dela Cruz Attending Provider MD Shayy Dela Cruz Primary Care Provider MD Shayy Dela Cruz Attending Provider Sam, TRAFFIC CONTROL SUPERVISOR Cathie C Attending Provider Scally, Cathie C Admitting Unavailable Sam, Cathie C Attending Unavailable Shayy Dela Cruz Admitting Unavailable Shayy Dela Cruz Primary Care Unavailable Shayy Dela Cruz Attending Unavailable AlysangBrittani bentley Admitting Unavailable Yadira Colliertany Attending Unavailable Shayy Dela Cruz Primary Care Unavailable Unavailable Primary Care Provider UnavailNACHO Alcala Attending Unavailable MARQUES MOROCHO Attending Unavailable Allergies Allergy Classification Reported Allergen(s) Allergy Type Date of Onset Reaction(s) Facility (1 source) codeine Drug Allergy 9 [facility] Repository (20 sources) Latex; Translations: [LATEX] Drug allergy (disorder) 9 sores on skin [facility] Repository (20 sources) Codeine; Translations: [CODEINE] Drug Allergy 0 nausea [facility] (19 sources) Latex Drug allergy 5 sores on skin [employer] Other (1 source) Codeine Drug Allergy [facility] Repository (8 sources) cat dander Allergy to substance 4 Sneezing, Itching [facility] (8 sources) dog dander Allergy to substance 4 Sneezing, Itching [facility] (8 sources) ozempic Propensity to adverse reactions 4 Vomiting [facility] (1 source) Codeine Drug Allergy 4 [facility] Repository (1 source) Latex Drug allergy (disorder) 4 [facility] Repository (3 sources) Insulin Lispro; Translations: [INSULIN LISPRO] Drug Allergy 5 Rash [facility] (3 sources) tomato allergenic extract; Translations: [TOMATO] Drug Allergy 5 [facility] Medications Current Medications Medication Drug Class(es) [...] May, Active Blood-Glucose Meter,Continuo us (Dexcom G7 Project Construction Assistant Manager) misc (6 sources) Start: 12-13-2023 Blood-Glucose Meter,Continuous (Dexcom G7 Project Construction Assistant Manager) misc Active 0 .Route December 12, 2023 11:00pm As directed Start: 12-13-2023 Blood-Glucose Meter,Continuous (Dexcom G7 Project Construction Assistant Manager) misc Active 0 .Route December 13, 2023 12:00am As directed Start: 12-13-2023 Blood-Glucose Meter,Continuous (Dexcom G7 Project Construction Assistant Manager) misc Active 0 .ROUTE December 13, [...] Qty: 90 Tablet; Provider: Jose De Jesus Delgado take 1 tablet by bin th every twenty-four hours Carvedilol 6.25 MG 1 tablet with food Orally once a day for 90 days Active cetirizine hydrochloride 10 mg oral tablet (12 sources) Histamine-1 Receptor Antagonist take 1 tablet by mouth every twenty-four hours ZyrTEC Allergy 10 MG 1 tablet Orally Once a day Active Dexcom G7 Project Construction Assistant Manager - (4 sources) Start: 06-03-19 24 Dexcom G7 Project Construction Assistant Manager - as directed as directed 4 [...] Start: 02-06-2024 take [address] [facility] once daily Esomeprazole Magnesium Active 0 .ROUTE [...] Qty: 90 Each; Provider: Jose De Jesus Delgado fluticasone propionate 0.05 mg/actuat metered dose nasal [...] Jesus Lucas ( ) [employer] Amrik [employer] [place] - (3 sources) Start: 06-06-2023 FreeStyle Libr e 3 [place] - as directed invitro 4 times daily [...] Source Status: Continue; Provider: Jose De Jesus Delagdo take 2 tablets by mo ut twice daily glipiZIDE 10 mg TAKE 2 [...] for Dx E11.65 or insurance preferred 300 30 December 23, 2023 10:17am Use to cleanse skin before checking blood sugar Start: 07-06-2023 End: 12-23-2023 Alcohol Swabs pads, medicate d Discontinued PAD TOPICAL July 06, 2023 12:00am December 23, 2023 10:13am FreeTextSig: as directed 4 times a day; Note: Source Status: Taking; Refills: 3; Provider: Jose De Jesus Delgado Alcohol Swabs - as directed 4 times [...] Source Status: Continue; Provider: Jose De Jesus Delgado take 0.5 tablet by m outh in [...] Drug Class(es) Dates Sig (Normalized) Sig (Original) [id number] 200 actuat albuterol 0.09 mg/actuat metered dose [...] Jun, Not-Taking/PRN Blood-Glucose Meter,Continuous (Freestyle Amrik 3 [place]) misc (13 sources) Start: 07-28-2023 End: 12-13-2023 Blood-Glucose Meter,Continuous (Freestyle Amrik 3 [place]) misc Discontinued EACH .ROUTE .MEDSUPPLY July 27, 2023 11:00pm December 13, 2023 12:09pm As directed Start: 07-28-2023 End: 12-13-2023 Blood-Glucose Meter,Continuo us (Freestyle Amrik 3 [place]) misc Discontinued EACH .ROUTE .MEDSUPPLY July 28, 2023 12:00am December 13, 2023 1:09pm As directed Start: 07-28-2023 Blood-Glucose Meter,Continuous (Freestyle Amrik 3 [place]) misc Active EACH .ROUTE .MEDSUPPLY July 28, [...] Source Status: Continue; Provider: Jose De Jesus Delgado Start: 07-06-2023 End: 07-28-2023 Insulin Glargine U-300 Conc (Toujeo Solostar U-300 Insulin) 300 unit/mL (1.5 mL) insulin pen Discontinued UNIT SUBCUT July 06, 2023 1:00am July 28, 2023 12:43pm FreeTextSi u Subcutaneous daily; Note: Source Status: Continue; Provider: Jose De Jesus Delgado Start: 07-06-2023 Insulin Glargi ne U-300 Conc (Toujeo Solostar U-300 Insulin) 300 unit/mL (1.5 mL) insulin pen Active UNIT SUBCUT July 06, 2023 1:00am FreeTextSi u Subcutaneous daily; Note: Source Status: Continue; Provider: Jose De Jesus Delgado 3 ml insulin lispro 200 unt/ml pen [...] scale dose SUBCUT Use as Directed 90 July 08, 2023 12:00am July 19, [...] angina pectoris; Translations: [Atherosclerotic heart disease of [place] coronary artery without angina pectoris] Onset: 07-12-2022 Chronic Diabetes mellitus with complications (20 sources) [...] Essential (primary) hypertension; Translations: [Hypertensive disorder] Onset: 07-13-2022 Chronic Fracture of upper limb (18 sources) [...] Onset: 11-09-2021 Chronic Other aftercare (17 sources) 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; Translations: [Long-term (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 of insulin] Onset: 04-08-2022 Episodic Other aftercare (20 sources) Long-term current use of insulin; Translations: [[facility] (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 of insulin] 07-28-2023 Episodic Other [...] conditions (not mental disorders or infectious disease) (19 sources) Encounter for screening mammogram for malignant [...] Onset: 04-08-2022 Episodic Other aftercare (1 source) 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; Translations: [[facility] CURRENT USE OF ASPIRIN] Onset: 04-08-2022 Episodic Other aftercare (1 source) [facility] (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 of oral hypoglycemic drugs; Translations: [[facility] USE ORAL HYPOGLYCEMIC DX] Onset: 04-08-2022 Episodic Other aftercare (1 source) Other 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 (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 therapy; Translations: [OTH MOTION STUDY ANALYST CURRENT DRUG THERAPY] Onset: 11-09-2021 Episodic Other [...] Value Interpretation Reference Range Facility Office Visiton 06-19-2024 Follow-up visit [id number] Zoila Ramos 1970 F Date Provider Department Center 06/19/2024 [id number]-MARQUES MOROCHO Hos No family history on file Level of Service:[address] [place] OFFICE/OUTPATIENT ESTABLISHED MOD MDM 30 MIN Normal [facility] Basophils Auto (Bld) [#/Vol] on 05-16-2024 Basophils (Bld) [#/Vol] Automated basophil count 0.0-0.1 [facility] Basophils/100 WBC Auto (Bld) on 05-16-2024 Basophils/100 WBC (Bld) Automated basophil % 0.2-2.0 [facility] Eosinophils/100 WBC Auto (Bl d)on 05-16-2024 Eosinophils/100 WBC (Bld) Automated eosinophil % 0.9-7.0 [facility] Erythrocyte distribution wid th Auto (RBC) [Ratio]on 05-16-2024 Erythrocyte distribution width (RBC) [Ratio] Erythrocyte distribution width [Ratio] by Automated count 11.0-15.0 [facility] Estimated glomerular filtrat ion rate (GFR) non- Americanon 05-16-2024 GFR/1.73 sq M.predicted among non-blacks MDRD (S/P/Bld) [Vol rate/Area] Estimated glomerular filtration rate (GFR) non- Low >=60 mL/min/1.73m 2 [facility] Hematocrit Auto (Bld) [Volum e fraction]on 05-16-2024 Hematocrit (Bld) [Volume fraction] Hematocrit [Volume Fraction] of Blood by Automated count 36.0-48.0 [facility] Hemoglobin [Mass/volume] in Bloodon 05-16-2024 Hemoglobin (Bld) [Mass/Vol] Hemoglobin [Mass/volume] in Blood 12.0-16.0 [facility] Laboratory - Chemistry and C hemistry - challengeon 05-16-2024 Calcium [Mass/Vol] 9.1 mg/dL 8.5-10.1 [facility] Chloride [Moles/Vol] 104 mmol/L 98-107 [facility] CO2 [Moles/Vol] 30.6 mmol/L 21.0-32.0 [facility] Creatinine [Mass/Vol] 1.01 mg/dL 0.55-1.02 [facility] GFR/1.73 sq M.predicted MDRD (S/P/Bld) [Vol rate/Area] mL/min/{1.73_m2} >=60 mL/min/1.73m 2 [facility] Glucose [Mass/Vol] 206 mg/dL High 74-106 [facility] Potassium [Moles/Vol] 5.1 mmol/L 3.5-5.1 [facility] Sodium [Moles/Vol] 141 mmol/L 136-145 [facility] Urea nitrogen [Mass/Vol] 12.0 mg/dL 7.0-18.0 [facility] Urea nitrogen/Creatinine [Mass ratio] 11.9 mg/mg [facility] Laboratory - Hematology and Cell countson 05-16-2024 ESR (Bld) [Velocity] 28 mm/h <=30 [facility] Immature granulocytes/100 WBC (Bld) 0.3 % 0.0-0.5 [facility] Leukocytes [#/volume] correc alma delia for nucleated erythrocytes in Blood by Automated counon 05-16-2024 WBC corrected for nucl RBC Auto (Bld) [#/Vol] Leukocytes [#/volume] corrected for nucleated erythrocytes in Blood by Automated coun 4.0-11.0 [facility] Lymphocytes Auto (Bld) [#/Vo l]on 05-16-2024 Lymphocytes (Bld) [#/Vol] Lymphocytes [#/volume] in Blood by Automated count 1.2-3.8 [facility] Lymphocytes/100 WBC Auto (Bl d)on 05-16-2024 Lymphocytes/100 WBC (Bld) Lymphocytes/100 leukocytes in Blood by Automated count 20.5-60.0 [facility] MCH Auto (RBC) [Entitic mass ]on 05-16-2024 MCH (RBC) [Entitic mass] MCH [Entitic mass] by Automated count 26.7-34.0 [facility] MCHC Auto (RBC) [Mass/Vol]on 05-16-2024 MCHC (RBC) [Mass/Vol] MCHC [Mass/volume] by Automated count 29.9-35.2 [facility] MCV Auto (RBC) [Entitic vol] on 05-16-2024 MCV (RBC) [Entitic vol] MCV [Entitic volume] by Automated count 81.0-99.0 [facility] Monocytes Auto (Bld) [#/Vol] on 05-16-2024 Monocytes (Bld) [#/Vol] Automated blood monocyte count 0.3-0.8 [facility] Monocytes/100 WBC Auto (Bld) on 05-16-2024 Monocytes/100 WBC (Bld) Automated monocyte % 1.7-12.0 [facility] Neutrophils Auto (Bld) [#/Vo l]on 05-16-2024 Neutrophils (Bld) [#/Vol] Neutrophils [#/volume] in Blood by Automated count 1.4-6.5 [facility] Neutrophils/100 WBC Auto (Bl d)on 05-16-2024 Neutrophils/100 WBC (Bld) Automated neutrophil % 43.0-75.0 [facility] No Panel Informationon 05-16 C-Reactive Protein, Quantitative 1.26 mg/dL High <=0.50 [facility] Eosinophils # (Auto) 0.3 10 3/uL 0.0-0.7 [facility] Immature Granulocyte # (Auto) 0.02 10 3/uL 0.00-0.03 [facility] Platelet mean volume Auto (B ld) [Entitic vol]on 05-16-2024 Platelet mean volume (Bld) [Entitic vol] Platelet mean volume [Entitic volume] in Blood by Automated count 9.5-13.5 [facility] Platelets Auto (Bld) [#/Vol] on 05-16-2024 Platelets (Bld) [#/Vol] Platelets [#/volume] in Blood by Automated count 150-450 [facility] RBC Auto (Bld) [#/Vol]on RBC (Bld) [#/Vol] Erythrocytes [#/volume] in Blood by Automated count 4.20-5.40 [facility] Serum or plasma anion gap de terminationon 05-16-2024 Anion gap [Moles/Vol] Serum or plasma anion gap determination [facility] Creatinine [Mass/volume] in UrineOrdered By: Cathie Vargas on 02-23-2024 Creatinine (U) [Mass/Vol] 28.00 mg/dL [facility] Comment on above: No reference range e stablished MicroAlb Creat Ratio,Uon Creatinine, Urine (Random) 28.00 mg/dL Normal [facility] Comment on above: Result Comment: No r eference range established Performed By: #### U RMACRERAT #### [facility] [address] [place] [address] Microalbumin/Creatin ine Ratio Not performed Normal 0.0-30.0 [facility] Comment on above: Result Comment: PERF ORMED BY: [place] [address] PATHOLOGIST EMERGENCY MEDICINE RUBINA RICCI M.D. Performed By: #### U RMACRERAT #### [facility] [address] [place] [address] [place] Microalbumin [Mass/volume] i n UrineOrdered By: Cathie Vargas on 02-23-2024 Albumin DL <= 20 mg/L (U) [Mass/Vol] mg/dL Normal 0.0-1.8 [facility] Comment on above: Performed By: #### U RMACRERAT #### [facility] [address] Urine microalbumin/creatinin e mass ratioOrdered By: Cathie Vargas on 02-23-2024 Albumin/Creatinine DL <= 20 mg/L (U) [Mass ratio] TNP [facility] Comment on above: Test not performed HbA1c HPLC (Bld) [Mass fract ion]on 12-13-2023 HbA1c (Bld) [Mass fraction] 9.9 % [facility] No Panel Informationon 12-12 Bedside Glucose 118 [facility] No Panel Informationon 09-28 Bedside Glucose 278 [facility] HbA1c HPLC (Bld) [Mass fract ion]on 07-28-2023 HbA1c (Bld) [Mass fraction] 10.3 % [facility] No Panel Informationon 07-27 Bedside Glucose 126 [facility] Basophils Auto (Bld) [#/Vol] on 07-12-2023 Basophils (Bld) [#/Vol] 0.0 10 3/uL 0.0-0.1 [facility] Basophils/100 WBC Auto (Bld) on 07-12-2023 Basophils/100 WBC (Bld) 0.5 % 0.2-2.0 [facility] Eosinophils/100 WBC Auto (Bl d)on 07-12-2023 Eosinophils/100 WBC (Bld) 1.5 % 0.9-7.0 [facility] Erythrocyte distribution wid th Auto (RBC) [Ratio]on 07-12-2023 Erythrocyte distribution width (RBC) [Ratio] 12.7 % 11.0-15.0 [facility] Estimated glomerular filtrat ion rate (GFR) non- Americanon 07-12-2023 GFR/1.73 sq M.predicted among non-blacks MDRD (S/P/Bld) [Vol rate/Area] mL/min/{1.73_m2} >=60 [facility] Hematocrit Auto (Bld) [Volum e fraction]on 07-12-2023 Hematocrit (Bld) [Volume fraction] 42.8 % 36.0-48.0 [facility] Hemoglobin [Mass/volume] in Bloodon 07-12-2023 Hemoglobin (Bld) [Mass/Vol] 14.3 g/dL 12.0-16.0 [facility] Laboratory - Chemistry and C hemistry - challengeon 07-12-2023 Calcium [Mass/Vol] 9.1 mg/dL 8.5-10.1 [facility] Chloride [Moles/Vol] 100 mmol/L 98-107 [facility] CO2 [Moles/Vol] 26.1 mmol/L 21.0-32.0 [facility] Creatinine [Mass/Vol] 0.78 mg/dL 0.55-1.02 [facility] GFR/1.73 sq M.predicted MDRD (S/P/Bld) [Vol rate/Area] mL/min/{1.73_m2} >=60 [facility] Glucose [Mass/Vol] 215 mg/dL 74-106 [facility] Potassium [Moles/Vol] 4.0 mmol/L 3.5-5.1 [facility] Sodium [Moles/Vol] 137 mmol/L 136-145 [facility] Urea nitrogen [Mass/Vol] 12.0 mg/dL 7.0-18.0 [facility] Urea nitrogen/Creatinine [Mass ratio] 15.4 mg/mg [facility] Laboratory - Hematology and Cell countson 07-12-2023 Immature granulocytes/100 WBC (Bld) 0.1 % 0.0-0.5 [facility] Leukocytes [#/volume] correc alma delia for nucleated erythrocytes in Blood by Automated counon 07-12-2023 WBC corrected for nucl RBC Auto (Bld) [#/Vol] 7.8 10 3/uL 4.0-11.0 [facility] Lymphocytes Auto (Bld) [#/Vo l]on 07-12-2023 Lymphocytes (Bld) [#/Vol] 2.7 10 3/uL 1.2-3.8 [facility] Lymphocytes/100 WBC Auto (Bl d)on 07-12-2023 Lymphocytes/100 WBC (Bld) 34.1 % 20.5-60.0 [facility] MCH Auto (RBC) [Entitic mass ]on 07-12-2023 MCH (RBC) [Entitic mass] 29.2 pg 26.7-34.0 [facility] MCHC Auto (RBC) [Mass/Vol]on 07-12-2023 MCHC (RBC) [Mass/Vol] 33.4 g/dL 29.9-35.2 [facility] MCV Auto (RBC) [Entitic vol] on 07-12-2023 MCV (RBC) [Entitic vol] 87.5 fL 81.0-99.0 [facility] Monocytes Auto (Bld) [#/Vol] on 07-12-2023 Monocytes (Bld) [#/Vol] 0.5 10 3/uL 0.3-0.8 [facility] Monocytes/100 WBC Auto (Bld) on 07-12-2023 Monocytes/100 WBC (Bld) 6.4 % 1.7-12.0 [facility] Neutrophils Auto (Bld) [#/Vo l]on 07-12-2023 Neutrophils (Bld) [#/Vol] 4.5 10 3/uL 1.4-6.5 [facility] Neutrophils/100 WBC Auto (Bl d)on 07-12-2023 Neutrophils/100 WBC (Bld) 57.4 % 43.0-75.0 [facility] No Panel Informationon 07-11 Eosinophils # (Auto) 0.1 10 3/uL 0.0-0.7 [facility] Immature Granulocyte # (Auto) 0.01 10 3/uL 0.00-0.03 [facility] Platelet mean volume Auto (B ld) [Entitic vol]on 07-12-2023 Platelet mean volume (Bld) [Entitic vol] 10.9 fL 9.5-13.5 [facility] Platelets Auto (Bld) [#/Vol] on 07-12-2023 Platelets (Bld) [#/Vol] 259 10 3/uL 150-450 [facility] RBC Auto (Bld) [#/Vol]on RBC (Bld) [#/Vol] 4.89 10 6/uL 4.20-5.40 [facility] Serum or plasma anion gap de terminationon 07-12-2023 Anion gap [Moles/Vol] 14.9 mmol/L [facility] Glucose - FINGER STICKon Glucose [Mass/Vol] 360 mg/dL [employer] Other CBC AUTO DIFFon 08-27-2022 BASO # 0.0 103/ul Normal 0.0-0.1 [facility] Comment on above: Performed By: #### C BC #### [facility] [address] [place] [address] Dr. Sarah Church Basophils/100 WBC (Bld) 0.5 % Normal 0.2-2.0 [facility] Comment on above: Performed By: #### C BC #### [facility] [address] [place] [address] Dr. Sarah Church EO # 0.2 103/ul Normal 0.0-0.7 [facility] Comment on above: Performed By: #### C BC #### [facility] [address] [place] [address] Dr. Sarah Church Eosinophils/100 WBC (Bld) 2.2 % Normal 0.9-7.0 [facility] Comment on above: Performed By: #### C BC #### [facility] [address] [place] [address] Dr. Sarah Church Erythrocyte distribution width (RBC) [Ratio] 12.5 % Normal 11.0-15.0 [facility] Comment on above: Performed By: #### C BC #### [facility] [address] [place] [address] Dr. Sarah Church Hematocrit (Bld) [Volume fraction] 44.1 % Normal 36.0-48.0 [facility] Comment on above: Performed By: #### C BC #### [facility] [address] [place] [address] Dr. Sarah Church Hemoglobin (Bld) [Mass/Vol] 15.1 g/dL Normal 12.0-16.0 [facility] Comment on above: Performed By: #### C BC #### [facility] [address] [place] [address] Dr. Sarah Church IG # 0.02 10e3/ul Normal 0.00-0.03 [facility] Comment on above: Performed By: #### C BC #### [facility] [address] [place] [address] Dr. Sarah Church IG % 0.2 % Normal 0.0-0.5 [facility] Comment on above: Performed By: #### C BC #### [facility] [address] [place] [address] Dr. Sarah Church LYMPH # 2.9 103/ul Normal 1.2-3.8 [facility] Comment on above: Performed By: #### C BC #### [facility] [address] [place] [address] Dr. Sarah Church Lymphocytes/100 WBC (Bld) 33.4 % Normal 20.5-60.0 [facility] Comment on above: Performed By: #### C BC #### [facility] [address] [place] [address] Dr. Sarah Church MANUAL DIFF REQ NO Normal [facility] Comment on above: Performed By: #### C BC #### [facility] [address] [place] [address] Dr. Sarah Church MCH (RBC) [Entitic mass] 29.1 pg Normal 26.7-34.0 [facility] Comment on above: Performed By: #### C BC #### [facility] [address] [place] [address] Dr. Sarah Church MCHC (RBC) [Mass/Vol] 34.2 g/dL Normal 29.9-35.2 [facility] Comment on above: Performed By: #### C BC #### [facility] [address] [place] [address] Dr. Sarah Church MCV (RBC) [Entitic vol] 85.0 fL Normal 81.0-99.0 [facility] Comment on above: Performed By: #### C BC #### [facility] [address] [place] [address] Dr. Sarah Church MONO # 0.6 103/ul Normal 0.3-0.8 [facility] Comment on above: Performed By: #### C BC #### [facility] [address] [place] [address] Dr. Sarah Church Monocytes/100 WBC (Bld) 6.8 % Normal 1.7-12.0 [facility] Comment on above: Performed By: #### C BC #### [facility] [address] [place] [address] Dr. Sarah Church NEUT # 4.9 103/ul Normal 1.4-6.5 [facility] Comment on above: Performed By: #### C BC #### [facility] [address] [place] [address] Dr. Sarah Church Neutrophils/100 WBC (Bld) 56.9 % Normal 43.0-75.0 [facility] Comment on above: Performed By: #### C BC #### [facility] [address] [place] [address] Dr. Sarah Church Platelet mean volume (Bld) [Entitic vol] 10.8 fL Normal 9.5-13.5 [facility] Comment on above: Performed By: #### C BC #### [facility] [address] [place] [address] Dr. Sarah Church PLT 276 103/ul Normal 150-450 [facility] Comment on above: Performed By: #### C BC #### [facility] [address] [place] [address] Dr. Sarah Church RBC 5.19 106/ul Normal 4.20-5.40 [facility] Comment on above: Performed By: #### C BC #### [facility] [address] [place] [address] Dr. Sarah Church WBC 8.6 103/ul Normal 4.0-11.0 [facility] Comment on above: Performed By: #### C BC #### [facility] [address] [address] [address] Sarah Church LIPID PROFILEon 08-27-2022 CHOL-HDL RATIO NORM SEE BELOW Normal [facility] Comment on above: Result Comment: 3.3 - 4.4 LOW RISK 4.4 - 7.1 AVERAGE RISK 7.1 - 11.0 MODERATE RISK >11.0 HIGH RISK Performed By: #### L IPID, CMP #### [facility] [address] [address] [address] Sarah Church Cholesterol [Mass/Vol] 110 mg/dL Normal <=200 [facility] Comment on above: Performed By: #### L IPID, CMP #### [facility] [address] [address] [address] Sarah Church Cholesterol in HDL [Mass/Vol] 33 mg/dL Critically low 40-60 [facility] Comment on above: Performed By: #### L IPID, CMP #### [facility] [address] [address] [address] Sarah Church Cholesterol in LDL [Mass/Vol] 58.0 mg/dL Normal [facility] Comment on above: Performed By: #### L IPID, CMP #### [facility] [address] [address] [address] Sarah Church Cholesterol.total/Ch olesterol in HDL [Mass ratio] 3.3 {ratio} Normal [facility] Comment on above: Performed By: #### L IPID, CMP #### [facility] [address] [address] [address] Sarah Church HDL NORMAL > or = 60 mg/dl - LOW CARDIOVASCULAR RISK <40 mg/dl - HIGH CARDIOVASCULAR RISK Normal [facility] Comment on above: Performed By: #### L IPID, CMP #### [facility] [address] [address] [address] Sarah Church LDL CALC NORMAL SEE BELOW Normal [facility] Comment on above: Result Comment: <100 mg/dl OPTIMAL 100 - 129 mg/dl NEAR OR ABOVE OPTIMAL 130 - 159 mg/dl BORDERLINE HIGH 160 - 189 mg/dl HIGH >190 mg/dl VERY HIGH Performed By: #### L IPID, CMP #### [facility] [address] [place] [address] Dr. Sarah Church Triglyceride [Mass/Vol] 95 mg/dL Normal <=150 [facility] Comment on above: Performed By: #### L IPID, CMP #### [facility] [address] [place] [address] Dr. Sarah Church VLDL CALC 19.0 mg/dL Normal [facility] Comment on above: Performed By: #### L IPID, CMP #### [facility] [address] [place] [address] Dr. Sarah Church PROF 14(COMP METB)on 023 Albumin [Mass/Vol] 3.3 g/dL Critically low 3.4-5.0 [facility] Comment on above: Performed By: #### L IPID, CMP #### [facility] [address] [place] [address] Dr. Sarah Church Albumin/Globulin [Mass ratio] 0.8 {ratio} Normal [facility] Comment on above: Performed By: #### L IPID, CMP #### [facility] [address] [place] [address] Dr. Sarah Church ALP [Catalytic activity/Vol] 100 U/L Normal 46-116 [facility] Comment on above: Performed By: #### L IPID, CMP #### [facility] [address] [place] [address] Dr. Sarah Church ALT [Catalytic activity/Vol] 74 U/L Critically high 14-59 [facility] Comment on above: Performed By: #### L IPID, CMP #### [facility] [address] [place] [address] Dr. Sarah Church Anion gap [Moles/Vol] 13.2 mmol/L Normal [facility] Comment on above: Performed By: #### L IPID, CMP #### [facility] [address] [place] [address] Dr. aSrah Church AST [Catalytic activity/Vol] 42 U/L Critically high 15-37 [facility] Comment on above: Performed By: #### L IPID, CMP #### [facility] [address] [place] [address] Dr. Sarah Church Bilirubin [Mass/Vol] 0.4 mg/dL Normal 0.2-1.0 [facility] Comment on above: Performed By: #### L IPID, CMP #### [facility] [address] [place] [address] Dr. Sarah Church Calcium [Mass/Vol] 9.2 mg/dL Normal 8.5-10.1 [facility] Comment on above: Performed By: #### L IPID, CMP #### [facility] [address] [place] [address] Dr. Sarah Church Chloride [Moles/Vol] 99 mmol/L Normal 98-107 [facility] Comment on above: Performed By: #### L IPID, CMP #### [facility] [address] [place] [address] Dr. Sarah Church CO2 [Moles/Vol] 30.4 mmol/L Normal 21.0-32.[address] [facility] Comment on above: Performed By: #### L IPID, CMP #### [facility] [address] [place] [address] Dr. Sarah Church Creatinine [Mass/Vol] 0.78 mg/dL Normal 0.55-1.02 [facility] Comment on above: Performed By: #### L IPID, CMP #### [facility] [address] [place] [address] Dr. Sarah Church EGFR-AF SOUTH AFRICAN >60 Normal >=[address] [facility] Comment on above: Performed By: #### L IPID, CMP #### [facility] [address] [place] [address] Dr. Sarah Church EGFR-NON AF SOUTH AFRICAN >60 Normal >=60 [facility] Comment on above: Performed By: #### L IPID, CMP #### [facility] [address] [place] [address] Dr. Sarah Church Globulin (S) [Mass/Vol] 4.0 g/dL Normal [facility] Comment on above: Performed By: #### L IPID, CMP #### [facility] [address] [place] [address] Dr. Sarah Church Glucose [Mass/Vol] 255 mg/dL Critically high 74-[address] [facility] Comment on above: Performed By: #### L IPID, CMP #### [facility] [address] [place] [address] Dr. Sarah Church Potassium [Moles/Vol] 3.6 mmol/L Normal 3.5-5.1 [facility] Comment on above: Performed By: #### L IPID, CMP #### [facility] [address] [place] [address] Dr. Sarah Church Protein [Mass/Vol] 7.3 g/dL Normal 6.4-8.2 [facility] Comment on above: Performed By: #### L IPID, CMP #### [facility] [address] [place] [address] Dr. Sarah Church Sodium [Moles/Vol] 139 mmol/L Normal 136-145 [facility] Comment on above: Performed By: #### L IPID, CMP #### [facility] [address] [place] [address] Dr. Sarah Church Urea nitrogen [Mass/Vol] 8.0 mg/dL Normal 7.0-18.0 [facility] Comment on above: Performed By: #### L IPID, CMP #### [facility] [address] [place] [address] Dr. Sarah Church Urea nitrogen/Creatinine [Mass ratio] 10.3 mg/mg Normal [facility] Comment on above: Performed By: #### L IPID, CMP #### [facility] [address] [place] [address] Dr. Sarah Church MG MAMM SCREEN 3D ROB CADon 07-20-2022 MG MAMM SCREEN 3D ROB CAD Patient: ZOILA RAMOS Exam Date: 07/20/2022 : 1970 Gender:F Ordering : DR SHAYY DELA CRUZ M.D. Admission #: [id number] Family : Order #: [id number] CLICK HERE TO VIEW EXAM RADIOLOGY REPORT PROCEDURE: MAMMOGRAM SCREENING 3D BILATERAL CAD COMPARISON: MAMMO ROB SCREEN W CAD DIG, 05/16/2012. INDICATIONS: Screening mammography Calculator Name NCI Breast Cancer Risk Assessment Tool 5 Year Breast Cancer Risk 1.20% Lifetime Breast Cancer Risk 10.80% Personal Breast Cancer No Personal Ovarian Cancer No Treatments None Family Cancers None LOCATION: [facility] BREAST COMPOSITION: Almost entirely fatty. FINDINGS: DIAGNOSTIC [...] Lan M.D. on 07/21/2022 at 08:24 Normal [facility] PROF CHEM 8 (BAS METB)on Anion gap [Moles/Vol] 14.5 mmol/L Normal [facility] Comment on above: Performed By: #### B MP #### [facility] [address] [address] [address] Sarah Church Calcium [Mass/Vol] 9.8 mg/dL Normal 8.5-10.1 [facility] Comment on above: Performed By: #### B MP #### [facility] [address] [address] [address] Sarah Church Chloride [Moles/Vol] 99 mmol/L Normal 98-107 [facility] Comment on above: Performed By: #### B MP #### [facility] [address] [address] [address] Sarah Church CO2 [Moles/Vol] 27.2 mmol/L Normal 21.0-32.0 [facility] Comment on above: Performed By: #### B MP #### [facility] [address] [address] [address] Sarah Church Creatinine [Mass/Vol] 0.80 mg/dL Normal 0.55-1.02 [facility] Comment on above: Performed By: #### B MP #### [facility] [address] [address] [address] Sarah Church EGFR-AF SOUTH AFRICAN >60 Normal >=60 [facility] Comment on above: Performed By: #### B MP #### [facility] [address] [address] [address] Sarah Church EGFR-NON AF SOUTH AFRICAN >60 Normal >=60 [facility] Comment on above: Performed By: #### B MP #### [facility] [address] [address] [address] Sarah Church Glucose [Mass/Vol] 458 mg/dL Critically high 74-[address] [facility] Comment on above: Performed By: #### B MP #### [facility] [address] [address] [address] Sarah Church Potassium [Moles/Vol] 4.7 mmol/L Normal 3.5-5.1 [facility] Comment on above: Performed By: #### B MP #### [facility] [address] [address] [address] Sarah Church Sodium [Moles/Vol] 136 mmol/L Normal 136-145 [facility] Comment on above: Performed By: #### B MP #### [facility] [address] [address] [address] Sarah Church Urea nitrogen [Mass/Vol] 15.0 mg/dL Normal 7.0-18.0 [facility] Comment on above: Performed By: #### B MP #### [facility] [address] [address] [address] Sarah Church Urea nitrogen/Creatinine [Mass ratio] 18.8 mg/mg Normal [facility] Comment on above: Performed By: #### B MP #### [facility] [address] [address] [address] Sarah Church GLYCOHEMOGLOBIN A1Con 2022 ADA RECOMMENDATION SEE BELOW Normal [facility] Comment on above: Result Comment: ADA RECOMMENDED LIMIT 4.0 - 6.0 ADA THERAPEUTIC TARGET < 7.0 ACTION SUGGESTED > 7.0 Performed By: #### A 1C ####[facility] [address] [address]Dr. Sarah Churhc Glucose [Mass/Vol] 266 mg/dL Normal [facility] Comment on above: Performed By: #### A 1C ####[facility] [address] [address]Dr. Sarah Church HbA1c (Bld) [Mass fraction] 10.9 % Critically high 4.5-6.2 [facility] Comment on above: Performed By: #### A 1C ####[facility] [address] [address]Dr. Sarah Church XR HIP RT 2 3V W PELVISon [...] Date: 2022-04-06 21:15 Normal [facility] CBC AUTO DIFFon 11-05-2021 BASO # 0.1 103/ul Normal 0.0-0.1 [facility] Comment on above: Performed By: #### C BC #### [facility] [address] [place] [address] Dr. Sarah Church Basophils/100 WBC (Bld) 0.4 % Normal 0.2-2.0 [facility] Comment on above: Performed By: #### C BC #### [facility] [address] [address] [address] Sarah Church EO # 0.2 103/ul Normal 0.0-0.7 [facility] Comment on above: Performed By: #### C BC #### [facility] [address] [address] [address] Sarah Church Eosinophils/100 WBC (Bld) 1.3 % Normal 0.9-7.0 [facility] Comment on above: Performed By: #### C BC #### [facility] [address] [place] [address] Dr. Sarah Church Erythrocyte distribution width (RBC) [Ratio] 12.3 % Normal 11.0-15.0 [facility] Comment on above: Performed By: #### C BC #### [facility] [address] [place] [address] Dr. Sarah Church Hematocrit (Bld) [Volume fraction] 43.1 % Normal 36.0-48.0 [facility] Comment on above: Performed By: #### C BC #### [facility] [address] [place] [address] Dr. Sarah Church Hemoglobin (Bld) [Mass/Vol] 14.6 g/dL Normal 12.0-16.0 [facility] Comment on above: Performed By: #### C BC #### [facility] [address] [place] [address] Dr. Sarah Church IG # 0.04 10e3/ul Critically high 0.00-0.03 [facility] Comment on above: Performed By: #### C BC #### [facility] [address] [place] [address] Dr. Sarah Church IG % 0.3 % Normal 0.0-0.5 [facility] Comment on above: Performed By: #### C BC #### [facility] [address] [place] [address] Dr. Sarah Church LYMPH # 1.6 103/ul Normal 1.2-3.8 [facility] Comment on above: Performed By: #### C BC #### [facility] [address] [place] [address] Dr. Sarah Church Lymphocytes/100 WBC (Bld) 12.5 % Critically low 20.5-60.0 [facility] Comment on above: Performed By: #### C BC #### [facility] [address] [place] [address] Dr. Sarah Church MANUAL DIFF REQ NO Normal [facility] Comment on above: Performed By: #### C BC #### [facility] [address] [address] [address] Sarah Church MCH (RBC) [Entitic mass] 29.4 pg Normal 26.7-34.0 [facility] Comment on above: Performed By: #### C BC #### [facility] [address] [address] [address] Sarah Church MCHC (RBC) [Mass/Vol] 33.9 g/dL Normal 29.9-35.2 [facility] Comment on above: Performed By: #### C BC #### [facility] [address] [place] [address] Dr. Sarah Church MCV (RBC) [Entitic vol] 86.7 fL Normal 81.0-99.0 [facility] Comment on above: Performed By: #### C BC #### [facility] [address] [place] [address] Dr. Sarah Church MONO # 1.0 103/ul Critically high 0.3-0.8 [facility] Comment on above: Performed By: #### C BC #### [facility] [address] [place] [address] Dr. Sarah Church Monocytes/100 WBC (Bld) 7.7 % Normal 1.7-12.0 [facility] Comment on above: Performed By: #### C BC #### [facility] [address] [place] [address] Dr. Sarah Church NEUT # 9.6 103/ul Critically high 1.4-6.5 [facility] Comment on above: Performed By: #### C BC #### [facility] [address] [place] [address] Dr. Sarah Church Neutrophils/100 WBC (Bld) 77.8 % Critically high 43.0-75.0 [facility] Comment on above: Performed By: #### C BC #### [facility] [address] [place] [address] Dr. Sarah Church Platelet mean volume (Bld) [Entitic vol] 11.0 fL Normal 9.5-13.5 [facility] Comment on above: Performed By: #### C BC #### [facility] [address] [address] [address] Sarah Church PLT 220 103/ul Normal 150-450 [facility] Comment on above: Performed By: #### C BC #### [facility] [address] [address] [address] Sarah Church RBC 4.97 106/ul Normal 4.20-5.40 [facility] Comment on above: Performed By: #### C BC #### [facility] [address] [address] [address] Sarah Church WBC 12.4 103/ul Critically high 4.0-11.0 [facility] Comment on above: Performed By: #### C BC #### [facility] [address] [place] [address] Dr. Sarah Church GROUP A STREP CULTUREon S. pyogenes Ag Ql (Unsp spec) Culture Observations: NEGATIVE FOR GROUP A STREPTOCOCCUS. Normal [facility] Comment on above: Performed By: #### G RASTCX SSCRN ####[facility] [address] [address]Dr. Sarah Church POINT OF CARE GLUCOSEon Glucose [Mass/Vol] 214 mg/dL Critically high 74-[address] [facility] Comment on above: Performed By: #### P OCGLUC #### [facility] [address] [address] [address] Sarah Church STREPT SCREENon 11-05-2021 STREP SCREEN A Negative Normal NEGATIVE The [facility] Comment on above: Performed By: #### G RASTCX, SSCRN ####[facility] [address] [address]Dr. Sarah Church CBC AUTO DIFFon 10-16-2021 BASO # 0.1 103/ul Normal 0.0-0.1 [facility] Comment on above: Performed By: #### C BC #### [facility] [address] [place] [address] Dr. Sarah Church Basophils/100 WBC (Bld) 0.8 % Normal 0.2-2.0 [facility] Comment on above: Performed By: #### C BC #### [facility] [address] [place] [address] Dr. Sarah Church EO # 0.3 103/ul Normal 0.0-0.7 [facility] Comment on above: Performed By: #### C BC #### [facility] [address] [place] [address] Dr. Sarah Church Eosinophils/100 WBC (Bld) 3.4 % Normal 0.9-7.0 [facility] Comment on above: Performed By: #### C BC #### [facility] [address] [place] [address] Dr. Sarah Church Erythrocyte distribution width (RBC) [Ratio] 12.6 % Normal 11.0-15.0 [facility] Comment on above: Performed By: #### C BC #### [facility] [address] [place] [address] Dr. Sarah Church Hematocrit (Bld) [Volume fraction] 45.4 % Normal 36.0-48.0 [facility] Comment on above: Performed By: #### C BC #### [facility] [address] [place] [address] Dr. Sarah Church Hemoglobin (Bld) [Mass/Vol] 15.0 g/dL Normal 12.0-16.0 [facility] Comment on above: Performed By: #### C BC #### [facility] [address] [place] [address] Dr. Sarah Church IG # 0.02 10e3/ul Normal 0.00-0.03 [facility] Comment on above: Performed By: #### C BC #### [facility] [address] [place] [address] Dr. Sarah Church IG % 0.2 % Normal 0.0-0.5 [facility] Comment on above: Performed By: #### C BC #### [facility] [address] [place] [address] Dr. Sarah Church LYMPH # 2.7 103/ul Normal 1.2-3.8 [facility] Comment on above: Performed By: #### C BC #### [facility] [address] [place] [address] Dr. Sarah Church Lymphocytes/100 WBC (Bld) 31.0 % Normal 20.5-60.0 [facility] Comment on above: Performed By: #### C BC #### [facility] [address] [place] [address] Dr. Sarah Church MANUAL DIFF REQ NO Normal [facility] Comment on above: Performed By: #### C BC #### [facility] [address] [place] [address] Dr. Sarah Church MCH (RBC) [Entitic mass] 29.3 pg Normal 26.7-34.0 [facility] Comment on above: Performed By: #### C BC #### [facility] [address] [place] [address] Dr. Sarah Church MCHC (RBC) [Mass/Vol] 33.0 g/dL Normal 29.9-35.2 [facility] Comment on above: Performed By: #### C BC #### [facility] [address] [place] [address] Dr. Sarah Church MCV (RBC) [Entitic vol] 88.7 fL Normal 81.0-99.0 [facility] Comment on above: Performed By: #### C BC #### [facility] [address] [place] [address] Dr. Sarah Church MONO # 0.6 103/ul Normal 0.3-0.8 [facility] Comment on above: Performed By: #### C BC #### [facility] [address] [place] [address] Dr. Sarah Church Monocytes/100 WBC (Bld) 6.5 % Normal 1.7-12.0 [facility] Comment on above: Performed By: #### C BC #### [facility] [address] [place] [address] Dr. Sarah Church NEUT # 5.0 103/ul Normal 1.4-6.5 [facility] Comment on above: Performed By: #### C BC #### [facility] [address] [address] [address] Sarah Church Neutrophils/100 WBC (Bld) 58.1 % Normal 43.0-75.0 [facility] Comment on above: Performed By: #### C BC #### [facility] [address] [address] [address] Sarah Church Platelet mean volume (Bld) [Entitic vol] 11.0 fL Normal 9.5-13.5 [facility] Comment on above: Performed By: #### C BC #### [facility] [address] [place] [address] Dr. Sarah Church PLT 226 103/ul Normal 150-450 [facility] Comment on above: Performed By: #### C BC #### [facility] [address] [address] [address] Sarah Church RBC 5.12 106/ul Normal 4.20-5.40 [facility] Comment on above: Performed By: #### C BC #### [facility] [address] [address] [address] Sarah Church WBC 8.6 103/ul Normal 4.0-11.0 [facility] Comment on above: Performed By: #### C BC #### [facility] [address] [address] [address] Sarah Church GLYCOHEMOGLOBIN A1Con 2021 ADA RECOMMENDATION SEE BELOW Normal [facility] Comment on above: Result Comment: ADA RECOMMENDED LIMIT 4.0 - 6.0 ADA THERAPEUTIC TARGET < 7.0 ACTION SUGGESTED > 7.0 Performed By: #### A 1C ####[facility] [address] [address]Dr. Sarah Church Glucose [Mass/Vol] 275 mg/dL Normal [facility] Comment on above: Performed By: #### A 1C ####[facility] [address] [address]Dr. Sarah Church HbA1c (Bld) [Mass fraction] 11.2 % Critically high 4.5-6.2 [facility] Comment on above: Performed By: #### A 1C ####[facility] [id number] [place], [place] [address]Zm. Sarah Church LIPID PROFILEon 10-16-2021 CHOL-HDL RATIO NORM SEE BELOW Normal [facility] Comment on above: Result Comment: 3.3 - 4.4 LOW RISK 4.4 - 7.1 AVERAGE RISK 7.1 - 11.0 MODERATE RISK >11.0 HIGH RISK Performed By: #### L IPID, CMP ####[facility] [id number] [place], [place] [address]Bv. Sarah Church Cholesterol [Mass/Vol] 159 mg/dL Normal <=200 [facility] Comment on above: Performed By: #### L IPID, CMP ####[facility] [id number] [place], [place] [address]Lr. Corriebrenden Ranjit Cholesterol in HDL [Mass/Vol] 41 mg/dL Normal 40-60 [facility] Comment on above: Performed By: #### L IPID, CMP ####[facility] [address] [place], [place] [address]Mh. Corriebrenden Ranjit Cholesterol in LDL [Mass/Vol] 102.6 mg/dL Normal [facility] Comment on above: Performed By: #### L IPID, CMP ####[facility] [address] [place], [place] [address]Ia. Corriebrenden Ranjit Cholesterol.total/Ch olesterol in HDL [Mass ratio] 3.9 {ratio} Normal [facility] Comment on above: Performed By: #### L IPID, CMP ####[facility] [address] [place], [place] [address]Rx. Corriebrenden Ranjit HDL NORMAL > or = 60 mg/dl - LOW CARDIOVASCULAR RISK <40 mg/dl - HIGH CARDIOVASCULAR RISK Normal [facility] Comment on above: Performed By: #### L IPID, CMP ####[facility] [id number] [place], [place] [address]Dm. Sarah Church LDL CALC NORMAL SEE BELOW Normal [facility] Comment on above: Result Comment: <100 mg/dl OPTIMAL 100 - 129 mg/dl NEAR OR ABOVE OPTIMAL 130 - 159 mg/dl BORDERLINE HIGH 160 - 189 mg/dl HIGH >190 mg/dl VERY HIGH Performed By: #### L IPID, CMP ####[facility] [address] [address]Dr. Sarah Church Triglyceride [Mass/Vol] 77 mg/dL Normal <=150 [facility] Comment on above: Performed By: #### L IPID, CMP ####[facility] [id number] [address]Dr. Sarah Church VLDL CALC 15.4 mg/dL Normal [facility] Comment on above: Performed By: #### L IPID, CMP ####[facility] [address] [address]Dr. Sarah Church MICROALBUMIN, RAND URon 09-30 mALB 2.0 mg/L Normal <=30.0 [facility] Comment on above: Performed By: #### M ALBR #### [facility] [address] [address] [address] Sarah Church PROF 14(COMP METB)on 022 Albumin [Mass/Vol] 3.5 g/dL Normal 3.4-5.0 [facility] Comment on above: Performed By: #### L IPID, CMP ####[facility] [address] [address]DrCoretta Church Albumin/Globulin [Mass ratio] 0.8 {ratio} Normal [facility] Comment on above: Performed By: #### L IPID, CMP ####[facility] [address]tt[address] [address]DrCoretta Church ALP [Catalytic activity/Vol] 85 U/L Normal 46-116 [facility] Comment on above: Performed By: #### L IPID, CMP ####[facility] [address] [address]DrCoretta Church ALT [Catalytic activity/Vol] 59 U/L Normal 14-59 [facility] Comment on above: Performed By: #### L IPID, CMP ####[facility] [address] [place], [place] [address]Dr. Sarah Church Anion gap [Moles/Vol] 15.1 mmol/L Normal [facility] Comment on above: Performed By: #### L IPID, CMP ####[facility] [address] [place], [place] [address]Dr. Sarah Church AST [Catalytic activity/Vol] 32 U/L Normal 15-37 [facility] Comment on above: Performed By: #### L IPID, CMP ####[facility] [address] [place], [place] [address]Dr. Sarah Ranjit Bilirubin [Mass/Vol] 0.4 mg/dL Normal 0.2-1.0 [facility] Comment on above: Performed By: #### L IPID, CMP ####[facility] Ed[address] [place], [place] [address]Dr. Sarah Church Calcium [Mass/Vol] 9.0 mg/dL Normal 8.5-10.1 [facility] Comment on above: Performed By: #### L IPID, CMP ####[facility] [address] [place], [place] [address]Dr. Corriebrenden Church Chloride [Moles/Vol] 102 mmol/L Normal 98-107 [facility] Comment on above: Performed By: #### L IPID, CMP ####[facility] [address] [place], [place] [address]Dr. Sarah Church CO2 [Moles/Vol] 30.2 mmol/L Normal 21.0-32.[address] [facility] Comment on above: Performed By: #### L IPID, CMP ####[facility] [address]sp[address]we[address] [place], [place] [address]Dr. Sarah Ranjit Creatinine [Mass/Vol] 0.81 mg/dL Normal 0.55-1.02 [facility] Comment on above: Performed By: #### L IPID, CMP ####[facility] [address] [place], [place] [address]Dr. Sarah Church EGFR-AF SOUTH AFRICAN >60 Normal >=60 [facility] Comment on above: Performed By: #### L IPID, CMP ####[facility] [address] [address]Dr. Sarah Church EGFR-NON AF SOUTH AFRICAN >60 Normal >=60 [facility] Comment on above: Performed By: #### L IPID, CMP ####[facility] [address] [address]Dr. Sarah Church Globulin (S) [Mass/Vol] 3.9 g/dL Normal [facility] Comment on above: Performed By: #### L IPID, CMP ####[facility] D[address] [place], [place] [address]Dr. Sarah Church Glucose [Mass/Vol] 218 mg/dL Critically high 74-106 [facility] Comment on above: Performed By: #### L IPID, CMP ####[facility] [address] [place], [place] [address]Dr. Sarah Church Potassium [Moles/Vol] 4.3 mmol/L Normal 3.5-5.1 [facility] Comment on above: Performed By: #### L IPID, CMP ####[facility] G[address] [place], [place] [address]Dr. Sarah Church Protein [Mass/Vol] 7.4 g/dL Normal 6.4-8.2 [facility] Comment on above: Performed By: #### L IPID, CMP ####[facility] [address] [place], [place] [address]Dr. Sarah Church Sodium [Moles/Vol] 143 mmol/L Normal 136-145 [facility] Comment on above: Performed By: #### L IPID, CMP ####[facility] [address] [place], [place] [address]Dr. Sarah Church Urea nitrogen [Mass/Vol] 14.0 mg/dL Normal 7.0-18.0 [facility] Comment on above: Performed By: #### L IPID, CMP ####[facility] [address] [place], [place] [address]Dr. Sarah Church Urea nitrogen/Creatinine [Mass ratio] 17.2 mg/mg Normal [facility] Comment on above: Performed By: #### L IPID, CMP ####[facility] [address] [place], [place] [address]Sv. Sarah Church Vital Signs Date Time Vital Sign Value Performing Clinician Facility 06-14-2024 10:21-0500 Body height 157.5 cm Nacho Patiño MD Work Phone: [facility] 06-14-2024 10:21-0500 Body mass index (BMI) [Ratio] 38.59 kg/m2 Nacho Patiño MD Work Phone: [facility] 06-14-2024 10:21-0500 Body temperature 97.3 [degF] Nacho Patiño MD Work Phone: [facility] 06-14-2024 10:21-0500 Body weight 95.71 kg Nacho Patiño MD Work Phone: [facility] 06-14-2024 10:21-0500 Diastolic blood pressure 82 mm[Hg] Nacho Patiño MD Work Phone: [facility] 06-14-2024 10:21-0500 Heart rate 88 /min Nacho Patiño MD Work Phone: [facility] 06-14-2024 10:21-0500 SaO2% (BldA) [Mass fraction] 97 % Nahco Patiño MD Work Phone: [facility] 06-14-2024 10:21-0500 Systolic blood pressure 136 mm[Hg] Nacho Patiño MD Work Phone: [facility] 05-30-2024 10:48-0500 Body height 157.48 cm [facility] 05-30-2024 10:48-0500 Body mass index (BMI) [Ratio] 38.5 kg/m2 [facility] 05-30-2024 10:48-0500 Body weight 95.7 kg [facility] 05-30-2024 10:48-0500 Diastolic blood pressure 77 mm[Hg] [facility] 05-30-2024 10:48-0500 Heart rate 80 /min [facility] 05-30-2024 10:48-0500 Systolic blood pressure 133 mm[Hg] [facility] 02-23-2024 13:23-0400 Body height 157.48 cm [facility] 02-23-2024 13:23-0400 Body mass index (BMI) [Ratio] 38 kg/m2 [facility] 02-23-2024 13:23-0400 Body weight 94.37 kg [facility] 02-23-2024 13:23-0400 Diastolic blood pressure 78 mm[Hg] [facility] 02-23-2024 13:23-0400 Heart rate 75 /min [facility] 02-23-2024 13:23-0400 Respiratory rate 18 /min [facility] 02-23-2024 13:23-0400 SaO2% (BldA) [Mass fraction] 97 % [facility] 02-23-2024 13:23-0400 Systolic blood pressure 170 mm[Hg] [facility] 12-13-2023 13:03-0400 Body height 157.48 cm [facility] 12-13-2023 13:03-0400 Body mass index (BMI) [Ratio] 37.1 kg/m2 [facility] 12-13-2023 13:03-0400 Body weight 92.07 kg [facility] 12-13-2023 13:03-0400 Diastolic blood pressure 86 mm[Hg] [facility] 12-13-2023 13:03-0400 Heart rate 78 /min [facility] 12-13-2023 13:03-0400 Respiratory rate 18 /min [facility] 12-13-2023 13:03-0400 SaO2% (BldA) [Mass fraction] 96 % [facility] 12-13-2023 13:03-0400 Systolic blood pressure 153 mm[Hg] [facility] 12-05-2023 11:24-0400 Body height 157.48 cm [facility] 12-05-2023 11:24-0400 Body mass index (BMI) [Ratio] 36.9 kg/m2 [facility] 12-05-2023 11:24-0400 Body weight 91.62 kg [facility] 12-05-2023 11:24-0400 Diastolic blood pressure 75 mm[Hg] [facility] 12-05-2023 11:24-0400 Heart rate 80 /min [facility] 12-05-2023 11:24-0400 Systolic blood pressure 133 mm[Hg] [facility] 09-29-2023 13:44-0400 Diastolic blood pressure 76 mm[Hg] [facility] 09-29-2023 13:44-0400 Systolic blood pressure 130 mm[Hg] [facility] 09-29-2023 13:19-0400 Body height 157.48 cm [facility] 09-29-2023 13:19-0400 Body mass index (BMI) [Ratio] 38.7 kg/m2 [facility] 09-29-2023 13:19-0400 Body weight 95.9 kg [facility] 09-29-2023 13:19-0400 Heart rate 89 /min [facility] 09-29-2023 13:19-0400 Respiratory rate 18 /min [facility] 09-29-2023 13:19-0400 SaO2% (BldA) [Mass fraction] 98 % [facility] 09-06-2023 11:08-0400 Body height 157.48 cm [facility] 09-06-2023 11:08-0400 Body mass index (BMI) [Ratio] 37.6 kg/m2 [facility] 09-06-2023 11:08-0400 Body weight 93.44 kg [facility] 09-06-2023 11:08-0400 Diastolic blood pressure 72 mm[Hg] [facility] 09-06-2023 11:08-0400 Heart rate 89 /min [facility] 09-06-2023 11:08-0400 Systolic blood pressure 127 mm[Hg] [facility] 08-24-2023 15:08-0400 Body height 157.48 cm [facility] 08-24-2023 15:08-0400 Body mass index (BMI) [Ratio] 37.5 kg/m2 [facility] 08-24-2023 15:08-0400 Body weight 93.21 kg [facility] 08-19-2023 10:43-0400 Body height 157.48 cm MD Shayy Dela Cruz Work Phone: [facility] 08-19-2023 10:43-0400 Body mass index (BMI) [Ratio] 37.5 kg/m2 MD Shayy Dela Cruz Work Phone: [facility] 08-19-2023 10:43-0400 Body weight 93.09 kg MD Shayy Dela Cruz Work Phone: [facility] 08-19-2023 10:43-0400 Diastolic blood pressure 79 mm[Hg] MD Shayy Dela Cruz Work Phone: [facility] 08-19-2023 10:43-0400 Heart rate 83 /min MD Shayy Dela Cruz Work Phone: [facility] 08-19-2023 10:43-0400 Systolic blood pressure 135 mm[Hg] MD Shayy Dela Cruz Work Phone: [facility] 07-28-2023 14:22-0400 Body height 157.48 cm MD Shayy Dela Cruz Work Phone: [facility] 07-28-2023 14:22-0400 Body mass index (BMI) [Ratio] 37.6 kg/m2 MD Shayy Dela Cruz Work Phone: [facility] 07-28-2023 14:22-0400 Body weight 93.44 kg MD Shayy Dela Cruz Work Phone: [facility] 07-28-2023 14:22-0400 Diastolic blood pressure 84 mm[Hg] MD Shayy Dela Cruz Work Phone: [facility] 07-28-2023 14:22-0400 Heart rate 83 /min MD Shayy Dela Cruz Work Phone: [facility] 07-28-2023 14:22-0400 Respiratory rate 18 /min MD Shayy Dela Cruz Work Phone: [facility] 07-28-2023 14:22-0400 SaO2% (BldA) [Mass fraction] 97 % MD Shayy Dela Cruz Work Phone: [facility] 07-28-2023 14:22-0400 Systolic blood pressure 140 mm[Hg] MD Shayy Dela Cruz Work Phone: [facility] 07-19-2023 10:57-0400 Body height 157.48 cm MD Shayy Dela Cruz Work Phone: [facility] 07-19-2023 10:57-0400 Body mass index (BMI) [Ratio] 37.1 kg/m2 MD Shayy Dela Cruz Work Phone: [facility] 07-19-2023 10:57-0400 Body weight 92.07 kg MD Sahyy Dela Cruz Work Phone: [facility] 07-19-2023 10:57-0400 Diastolic blood pressure 68 mm[Hg] MD Shayy Dela Cruz Work Phone: [facility] 07-19-2023 10:57-0400 Heart rate 89 /min MD Shayy Dela Cruz Work Phone: [facility] 07-19-2023 10:57-0400 Systolic blood pressure 132 mm[Hg] MD Shayy Dela Cruz Work Phone: [facility] 05-25-2023 11:00-0500 Body height 157.48 cm Cathie Scally Other [facility] 05-25-2023 11:00-0500 Body mass index (BMI) [Ratio] 37.23 kg/m2 Cathie Scally Other [facility] [employer] Other 05-25-2023 11:00-0500 Body weight 92.35 kg Cathie Scally Other [facility] 05-25-2023 11:00-0500 Diastolic blood pressure 71 mm[Hg] Cathiesay Anguloly Other [facility] 05-25-2023 11:00-0500 Respiratory rate 18 /min Cathie Anguloly Other [facility] [employer] Other 05-25-2023 11:00-0500 SaO2% (BldA) [Mass fraction] 95 % Cathie Anguloly Other [facility] [employer] Other 05-25-2023 11:00-0500 Systolic blood pressure 139 mm[Hg] Cathie Anguloly Other [facility] 04-15-2023 11:00-0500 Body height 157.48 cm Shayy Dela Cruz Other [facility] 04-15-2023 11:00-0500 Body mass index (BMI) [Ratio] 37.49 kg/m2 Shayy Dela Cruz Other [facility] [employer] Other 04-15-2023 11:00-0500 Body weight 92.99 kg Shayy Dela Cruz Other [facility] [employer] Other 04-15-2023 11:00-0500 Body weight 92.98 kg MD Shayy Dela Cruz Work Phone: [facility] 04-15-2023 11:00-0500 Diastolic blood pressure 84 mm[Hg] Shayy Dela Cruz Other [facility] 04-15-2023 11:00-0500 Systolic blood pressure 142 mm[Hg] Shayy Dela Cruz Other [facility] 06-22-2022 13:30-0500 Body height 157.48 cm Shayy Dela Cruz Other [employer] [facility] [employer] Other 06-22-2022 13:30-0500 Body mass index (BMI) [Ratio] 36.94 kg/m2 Shayy Dela Cruz Other [employer] Other 06-22-2022 13:30-0500 Body weight 91.63 kg Shayy Dela Cruz Other [employer] Other 06-22-2022 13:30-0500 Diastolic blood pressure 74 mm[Hg] Shayy Dela Cruz Other [employer] Other 06-22-2022 13:30-0500 SaO2% (BldA) [Mass fraction] 97 % Shayy Dela Cruz Other [employer] Other 06-22-2022 13:30-0500 Systolic blood pressure 112 mm[Hg] Shayy Dela Cruz Other [employer] Other Encounters Encounter Date Encounter Type Care Provider Facility Start: 06-19-2024 End: 06-19-[address] [facility] Start: 06-14-2024 End: 06-14-2024 Office outpatient new 30 minutes Nacho Pati[facility] Comment on above: 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) Start: 06-14-2024 End: 06-14-2024 ambulatory NACHO PATIÑO [facility] Start: 05-30-2024 End: 05-30-2024 ambulatory [facility] Work Phone: Start: 05-30-2024 End: 05-30-2024 Patient encounter procedure [facility] Work Phone: Start: 05-24-2024 End: 05-24-2024 ambulatory [facility] Work Phone: Start: 05-24-2024 End: 05-24-2024 Patient encounter procedure [facility] Work Phone: Start: 05-16-2024 Non-patient / Non-visit [facility] Work Phone: Start: 05-07-2024 Non-patient / Non-visit [facility] Work Phone: Start: 04-19-2024 End: 04-19-2024 Patient encounter procedure [facility] Work Phone: Start: 02-28-2024 Non-patient / Non-visit [facility] Work Phone: Start: 02-23-2024 End: 02-23-2024 ambulatory Cathie Karli Sam [facility] Work Phone: Start: 02-23-2024 End: 02-23-2024 Patient encounter procedure [employer] Cathie Vargas Work Phone: [facility] Work Phone: Start: 02-23-2024 End: 02-23-2024 ambulatory [facility] Work Phone: Start: 02-23-2024 End: 02-23-2024 Patient encounter procedure [facility] Work Phone: Start: 01-17-2024 End: 01-17-2024 ambulatory [facility] Work Phone: Start: 01-17-2024 End: 01-17-2024 Patient encounter procedure [facility] Work Phone: Start: 12-13-2023 End: 12-13-[address] [facility] Work Phone: Start: 12-13-2023 End: 12-13-2023 Patient encounter procedure [facility] Work Phone: Start: 12-05-2023 End: 12-05-2023 ambulatory [facility] Work Phone: Start: 12-05-2023 End: 12-05-2023 Patient encounter procedure [facility] Work Phone: Start: 11-07-2023 End: 11-07-[address] [facility] Work Phone: Start: 11-07-2023 End: 11-07-2023 Patient encounter procedure [facility] Work Phone: Start: 09-29-2023 End: 09-29-[address] [facility] Work Phone: Start: 09-29-2023 End: 09-29-2023 Patient encounter procedure [facility] Work Phone: Start: 09-06-2023 End: 09-06-[address] [facility] Work Phone: Start: 09-06-2023 End: 09-06-2023 Patient encounter procedure [facility] Work Phone: Start: 08-24-2023 End: 08-24-[address] [facility] Work Phone: Start: 08-24-2023 End: 08-24-2023 Patient encounter procedure [facility] Work Phone: Start: 08-19-2023 End: 08-19-2023 ambulatory MD Shayy Dela Cruz Work Phone: [facility] Work Phone: Start: 08-19-2023 End: 08-19-2023 Patient encounter procedure MD Shayy Dela Cruz Work Phone: [facility] Work Phone: Start: 07-28-2023 End: 07-28-2023 ambulatory MD Shayy Dela Cruz Work Phone: [facility] Work Phone: Start: 07-28-2023 End: 07-28-2023 Patient encounter procedure MD Shayy Dela Cruz Work Phone: [facility] Work Phone: Start: 07-19-2023 End: 07-19-2023 ambulatory MD Shayy Dela Cruz Work Phone: [facility] Work Phone: Start: 07-19-2023 End: 07-19-2023 Patient encounter procedure MD Shayy Dela Cruz Work Phone: [facility] Work Phone: Start: 07-12-2023 Non-patient / Non-visit MD Shayy Dela Cruz Work Phone: [facility] Work Phone: Start: 06-14-2023 End: 06-14-2023 Patient encounter procedure MD Shayy Dela Cruz Work Phone: [facility] Work Phone: Start: 06-14-2023 End: 06-14-2023 ambulatory MD Shayy Dela Cruz Work Phone: [facility] Work Phone: Start: 06-06-2023 End: 06-06-2023 ambulatory Shayy Dela Cruz Other [employer] Other Start: 06-06-2023 Telephone encounter Shayy Dela Cruz [facility] Start: 05-25-2023 FQ visit new patient Cathie love [facility] Start: 05-25-2023 End: 05-25-2023 ambulatory MD Shayy Dela Cruz Work Phone: [employer] Other Start: 05-25-2023 End: 05-25-2023 Discharged Recurring MD Shayy Dela Cruz Work Phone: [facility] Work Phone: Start: 05-25-2023 Registered Recurring MD Shayy Dela Cruz [facility] Work [facility]: Start: 05-25-2023 End: 05-25-2023 Patient encounter procedure MD Shayy Dela Cruz Work Phone: [facility]- Start: 05-12-2023 End: 05-12-2023 ambulatory Shayy Dela Cruz Other [employer] Other Start: 05-12-2023 Telephone encounter Shayy Dela Cruz [facility] Start: 05-10-2023 End: 05-10-2023 ambulatory Shayy Dela Cruz Other [employer] Other Start: 05-10-2023 Telephone encounter Shayy Dela Cruz [facility] Start: 04-22-2023 End: 04-22-2023 ambulatory Shayy Dela Cruz Other [employer] Other Start: 04-22-2023 Telephone encounter Shayy Dela Cruz [facility] Start: 04-20-2023 End: 04-20-2023 ambulatory Lynne Austint Other [employer] Other Start: 04-20-2023 Telephone encounter Lynne Austint [facility] Start: 04-18-2023 End: 04-18-2023 ambulatory Lynne Austint Other [employer] Other Start: 04-18-2023 Telephone encounter Lynne Austint [facility] Start: 04-15-2023 End: 04-15-2023 ambulatory Shayy Dela Cruz Other [employer] Other Start: 04-15-2023 Office outpatient visit 15 minutes Shayy Dela Cruz [facility] Start: 04-15-2023 End: 04-15-2023 Patient encounter procedure MD Shayy Dela Cruz Work Phone: [facility] Work Phone: Start: 04-06-2023 End: 04-06-2023 ambulatory Shayy Dela Cruz Other [employer] Other Start: 04-06-2023 Telephone encounter Shayy Dela Cruz [facility] Start: 02-25-2023 End: 02-25-2023 ambulatory Shayy Dela Cruz Other [employer] Other Start: 02-25-2023 Telephone encounter Shayy Dela Cruz [facility] Start: 10-29-2022 End: 10-29-2022 ambulatory Shayy Dela Cruz Other [employer] Other Start: 10-29-2022 Telephone encounter Shayy Dela Cruz [facility] Start: 08-27-2022 End: 08-28-[address] SHAYY DELA CRUZ Facility:[facility] Start: 07-20-2022 End: 07-21-[address] SHAYY DELA CRUZ Facility:[facility] Start: 07-19-2022 End: 07-19-2022 ambulatory Shayy Dela Cruz Other [employer] Other Start: 07-19-2022 Telephone encounter Shayy Dela Cruz [facility] Start: 07-12-2022 End: 07-13-[address] SHAYY DELA CRUZ Facility:[facility] Start: 07-05-2022 End: 07-05-2022 ambulatory Shayy Dela Cruz Other [employer] Other Start: 07-05-2022 Telephone encounter Shayy Dela Cruz [facility] Start: 06-28-2022 End: 06-28-2022 ambulatory Shayy Dela Cruz Other [employer] Other Start: 06-28-2022 Telephone encounter Shayy Dela Cruz [facility] Start: 06-22-2022 End: 06-22-2022 ambulatory Shayy Dela Cruz Other [employer] Other Start: 06-22-2022 Office outpatient visit 15 minutes Shayy Dela Cruz [facility] Start: 05-27-2022 End: 05-27-2022 ambulatory Shayy Dela Cruz Other [employer] Other Start: 05-27-2022 Telephone encounter Shayy Dela Cruz [facility] Start: 05-19-2022 End: 05-20-[address] [...] Start: 05-10-2017 End: 05-11-2017 Ambulatory DEFAULT PHYSICIAN Facility:[facility] Start: 05-05-2017 End: 05-06-2017 Ambulatory DEFAULT PHYSICIAN Facility:[facility] Plan of Treatment Date Care Activity Detail Author Start: 01-01-2024 Influenza vaccination Influenza Vaccine [facility] Start: 01-15-2022 Administration of varicella zoster vaccine Zoster (Shingles) Vaccine (1 of 2) [facility] Start: 01-15-1993 Screening for malignant neoplasm of cervix Pap Smear [facility] Start: 01-15-1991 DTaP,Tdap and Td Vaccines (1 - Tdap) DTaP,Tdap and Td Vaccines (1 - Tdap) [facility] Start: 01-15-1990 Adult BMI Screening Adult BMI Screening [facility] Start: 1984 Depression Screening Depression Screening [facility] Start: 1984 Tobacco Screening Tobacco Screening [facility] Comprehensive metabo lic 2000 panel - Serum or Plasma [facility] MG Breast - bilatera l Screening [facility] Immunizations Immunization Date Immunization Notes Care Provider Fa cility 02-01-2022 influenza virus vaccine, split virus (incl. purified surface antigen) Shayy Dela Cruz Other [employer] Other 02-01-2022 influenza virus vaccine, unspecified formulation MD Shayy Dela Cruz Work Phone: [facility] Payers Date Payer Category Payer Medicare HMO AN[employer]M MEDICARE [id number] 2023 Medicare [id number] 2023 Self-pay 2017 Medicaid [place]ICAID [place] [id number] 2017 Unknown [id number] 1972 Unknown [id number] 1972 Unknown [id number] 2..[id number] 1972 Unknown [id number] 1972 Unknown [id number] [id number] 1972 Unknown [id number] [id number] 1972 Unknown [id number] [id number] 1972 Unknown [id number] [id number] 1972 Unknown [id number] [id number] 1972 Unknown [id number] [id number] 1972 Unknown [id number] 1959 Medicaid [id number] [id number] 1959 Medicare [id number] [id number] Unknown Unknown [id number] [id number] Unknown [id number] Social History Date Type Detail Facility Unknown if ever smoked [facility] [employer] Other Start: 06-14-2024 Sex Assigned At [employer] Other Start: 1970 Sex Assigned At Female [facility] Start: 07-19-2023 End: 06-14-2024 Tobacco smoking status NHIS Never smoked tobacco (finding) [facility] Start: 05-24-2024 End: 06-13-2024 Sex Female (finding) [facility] Start: 06-14-2024 Tobacco use and exposure Smokeless tobacco non-user [facility] Start: 06-14-2024 Alcoholic beverage intake Lifetime non-drinker (finding) [facility] Start: 06-14-2024 History of Social function [facility] Within the past 12 months we worried whether our food would run out before we got money to buy more. Never [facility] Start: 1972 [facility] NEGATED: Highlighted row [facility] Medical Equipment Procedure Code Equipment Code Equipment [...] 07-28-2023 End: 08-23-2023 Clinical Notes 01-11-2022 to 06-19-2024 Assessment & Plan Note - Nacho Patiño MD - 06/14/2024 11:11 AM ESTAssessment & Plan Note - Nacho Patiño MD - 06/14/2024 11:11 AM ESTMoazra Patiño MD - 06/14/2024 10:10 AM EST Note Date & Type Note Facility 06-19-2024 Note Cardiology Clinic No te Patient here for 1.5 year follow up CAD, hypertension, and hyperlipidemia. She also needs cleared for toe amputation. This is scheduled for 06/21/[address] Bruce at [facility]. She had EKG, CXR, and labs today. Denies chest pain, SOB, and palpitations. Lipid panel was drawn last week. Shady Ramos is a 54 y.o. year old female patient with coronary artery disease status post PCI to proximal RCA and mid circumflex in 2004, hyperlipidemia, hypertension, type 2 diabetes, and obesity seen in follow-up. Patient here for 1.5 year follow up CAD, hypertension, and hyperlipidemia. She also needs cleared for toe amputation. This is scheduled for 06/21/[address] Bruce at [facility]. She had EKG, CXR, and labs today. Denies chest pain, SOB, and palpitations. Lipid panel was drawn last week. Patient denies any cardiac complaints or concerns. She denies any chest pain or shortness of breath. She states that she is able to complete greater than 4 METS of activity without chest pain or shortness of breath. EKG with poor R wave progression in anterior leads, possible LVH with ST/T changes. 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 Social History Tobacco Use Smoking status: Never Smokeless tobacco: Never Substance Use Topics Alcohol use: Not Currently Cardiology ROS: 10 point ROS is performed and is negative unless otherwise specified in HPI. Objective Visit Vitals Smoking Status Never Physical Exam General: Awake, alert, in no [...] 160-4.5 mcg/actuation inhaler, , Disp: , Rfl: carvedilol (Coreg) 6.25 mg tablet, Take 1 tablet (6.25 mg) by mouth with breakfast and with evening meal., Disp: 180 tablet, Rfl: 3 esomeprazole (NexIUM) [address] capsule, Take 1 capsule by mouth in the morning., Disp: , Rfl: glipiZIDE (Glucotrol) 10 mg tablet, TAKE 2 (TWO) TABLET BY MOUTH TWO TIMES DAILY, Disp: , Rfl: hydroCHLOROthiazide (Microzide) 12.5 mg capsule, TAKE 1 CAPSULE (12.5 MG) BY MOUTH IN THE MORNING., Disp: 90 capsule, Rfl: 3 insulin glargine (Toujeo SoloStar U-300 Insulin) 300 [...] ONLY. IF NO RELIEF, CALL 911, Disp: 90 tablet, Rfl: 1 Recent Labs 07/12/2022 Sodium 136, potassium 4.7, [...] in size. The IVC is normal sized. (more content not included)... [facility] 06-14-2024 Evaluation + Plan note Associated Problem(s): Gangrene of toe of left foot (CMS-HCC) Osteomyelitis and gangrenous changes of the left second and third and may be the fourth toe.She has normal PVR with toe pressure and normal HIEU and toe pressure index.I discussed with her that there is no VASc intervention needed at this time. She needs his aggressive blood sugar control IV antibiotics likely toe amputation by podiatry and risk factors modification. [facility] 06-14-2024 Miscellaneous Notes Associated Problem(s): Gangrene of toe of left foot (CMS-HCC) Osteomyelitis and gangrenous changes of the left [...] risk factors modification. documented in this encounter [facility] 06-14-2024 History of Presen t illness [...] Past Medical History: Diagnosis Date Diabetes mellitus ([facility]) Past Surgical History: No past surgical [...] Interpersonal Safety: Unknown (06/23/2023) Received from [facility] Fear of Current or [...] List Gangrene of toe of left foot ([facility]) - Primary Current Assessment & Plan Osteomyelitis [...] visit: Gangrene of toe of left foot ([facility]) Nacho Patiño MD, SELMA, RPVI, FSVS, FACS [facility] This note was created with the assistance of a speech recognition program. While intending to generate a timely document that accurately reflects the content of the visit, no guarantee can be provided that every grammatical or spelling mistake has been or will be identified or corrected. Thank you for your understanding. documented in this encounter [facility] 04-19-2024 Evaluation note Diagnosis Onset Date Resolution Type 2 diabetes mellitus acute April 19, 2 024 2:03pm [facility] Work Phone: 1(859) 124-731112-19-2024 Evaluation note* Diagnosis Onset Date Resolution Status Admit Date Type 2 diabetes mellitus acute April 19, 2024 2:03pm Type 2 diabetes mellitus acute May 24, 2024 12:54pm [facility] Work Phone: [phone]) 945-216902-05-2024 Evaluation note* Encounter Date Diagnosis Assessment Notes Treatment Notes Treatment Clinical Notes Jun, Controlled type 2 diabetes mellitus with hyperglycemia, unspecified whether snf insulin use (ICD-10 - E11.65) [employer] Other 01-24-2024 Evaluation note* Encounter Date Diagnosis [...] issues. 6. Prescriptions: New patient 05-25-2023 uses [facility]. 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 She was taught how to use the [...] educating the patient by Nguyễn Norwood RN, [facility]. [employer] Other 12-15-2023 Evaluation note* Encounter Date Diagnosis Assessment Notes Treatment Notes Treatment Clinical Notes Apr, Type 2 diabetes mellitus with hyperglycemia (ICD-10 - E11.65) Rx handwritten for diabetic shoes. Pt agrees to referral to specialty clinic. Continue present meds and discussed healthy diet in meantime. 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 She declines and will continue meds, followup in 3 months, and recheck labs at that time. She is eating more of a keto diet and is certain that is helping her A1C improve. Jun, Screening mammogram for breast cancer (ICD-10 - Z12.31) Zoila will call for an appt [employer] Other 12-15-2022 NotePROCEDURE: XR FOOT LT MIN 3 VIEWS [...] Electronically authenticated by: NARINDER LAN Date: 2022-04-15 06:08[facility]09-12-2022 NotePROCEDURE: XR TOES RT MIN 2 V HISTORY: Pain of toe of right foot ; first toe pain following injury COMPARISON: None. FINDINGS: BONES:No fracture, acute abnormality, or significant arthropathy. SOFT TISSUES:No visible soft tissue swelling. EFFUSION:None visible. OTHER: Negative. IMPRESSION: 1. No acute bone abnormality. 2. Mild degenerative joint disease. Electronically authenticated by: NARINDER LAN Date: 2022-01-11 18:48[facility]+Reason for visit Narrative* Chief Complaint 3 Month Follow Up Referral Dr. Negro LAGUER[place] download [facility] Work Phone: chief complaint+Reason for visit Narrative* Chief Complaint 3 Month Follow Up Referral Dr. Negro [place] download Reason for Visit Type 2 diabetes holli [facility] Work Phone: chief complaint+Reason for visit Narrative* Chief Complaint Referral Dr. Negro [place] download 3 Month Check up Reason for Visit Type 2 diabetes holli [facility] Work Phone: chief complaint+Reason for visit Narrative* Chief Complaint Referral Dr. Negro L[place] download 3 Month Check up amrik reader Reason for Visit Type 2 diabetes holli itus Right wrist fracture Type 2 diabetes mellitus [facility] Work Phone: chief complaint+Reason for visit [...] mellitus Vitamin D deficiency Gastroesophageal reflux disease [facility] Work Phone: Evaluation noteNo InformationNort [employer] Other Evaluation noteNo assessment information available [facility] Work Phone: Evaluation note* Diagnosis Onset Date Resolution Status Type 2 diabetes mellitus acu [facility] Work Phone: Evaluation note* Diagnosis Onset Date Resolution Status Type 2 diabetes mellitus acu te Right wrist fracture acute Type 2 diabetes mellitus acu te [facility] Work Phone: evaluation note* Diagnosis Onset Date Resolution Status Type 2 diabetes mellitus acu te Right wrist fracture acute Type 2 diabetes mellitus acu te BMI 37.0-37.9, adult acute Dietary counseling and surveillance acute History of myocardial infarction acute HTN (hypertension) acute Hyperlipidemia acute Long-term insulin use acute Type 2 diabetes mellitus acu te Vitamin D deficiency acute Gastroesophageal reflux disease acute [facility] Work Phone: evaluation note* Diagnosis Onset [...] acute Type 2 diabetes mellitus acu te [facility] Work Phone: evaluxvbqn note* Diagnosis Onset Date Resolution Status Right [...] acute Type 2 diabetes mellitus acu te [facility] Work Phone: evaluation note* Diagnosis Onset [...] acute Type 2 diabetes mellitus acu te [facility] Work Phone: evaluation note* Diagnosis Onset [...] te Screening mammogram for breast cancer acute [facility] Work Phone: Evaluation note* Diagnosis Onset [...] mellitus acu te Vitamin D deficiency acute [facility] Work Phone: evaluation note* Diagnosis Onset [...] acute Type 2 diabetes mellitus acu te [facility] Work Phone: evaluation note* Diagnosis Onset [...] mellitus acu te Vitamin D deficiency acute [facility] Work Phone: evaluation note* Diagnosis Gangrene of toe of left foot ([facility])- Primary [facility] this encounter [facility] - [facility]orted* Type Description Date Medical History Herpes labialis Medical History Candidiasis of mouth Medical History Type 2 diabetes holli itus with diabetic polyneuropathy, 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 Medical History Controlled type 2 di abetes mellitus with hyperglycemia, 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 Medical History Obesity Medical History Dyslipidemia Medical History CAD in [place] artery Medical History Asthma, intermittent Medical History [...] History appendectomy Surgical History 7 stents 1999 [employer] Other History general Narrative - Reported* Type Description Date Medical History Herpes labialis Medical History Candidiasis of mouth Medical History Type 2 diabetes holli itus with diabetic polyneuropathy, unspecified whether snf insulin use Medical History Controlled type 2 di abetes mellitus with hyperglycemia, 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 Medical History Obesity Medical History Dyslipidemia Medical History CAD in [place] artery Medical History Asthma, intermittent Medical History [...] stents 1999 Hospitalization History see surgical history [employer] Other Hislddt general Narrative - Reported* Type Description Date Medical History Herpes labialis Medical History Candidiasis of mouth Medical History Type 2 diabetes holli itus with diabetic polyneuropathy, 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 Medical History Controlled type 2 di abetes mellitus with hyperglycemia, unspecified whether snf insulin use Medical History Obesity Medical History Dyslipidemia Medical History CAD in [place] artery Medical History Asthma, intermittent Medical History [...] coronary 1999 Hospitalization History see surgical history [employer] Other InstructionsNot on filedocumented in this encounter [facility] [employer] Summary Purpose Family History No Family History [...] Name Jose De Jesus Referring Provider Specialty [facility] Referred Organization [facility] Referred Provider Marcia Mendes Referred Address [address] [place] [address],[facility],[place], [place],[address] Referred Provider Specialty Nurse Huey saldaña Referral [...] and content) DATE CREATED AUTHOR 10/25/2017 [facility] DATE CREATED AUTHOR AUTHOR'S ORGANIZ ATION 09/03/2022 [facility] DATE CREATED AUTHOR AUTHOR'S ORGANIZ ATION 02/25/2024 [facility] DATE CREATED AUTHOR AUTHOR'S ORGANIZ ATION 06/16/2024 [facility] DATE CREATED AUTHOR AUTHOR'S ORGANIZ ATION 06/23/2024 [facility] REASON FOR VISIT (unrecogniz ed [...] End: September 29, 2023 Cathie Vargas , TRAFFIC CONTROL SUPERVISOR Attending Provider Active Start: September 29, 2023 End: September 29, 2023 Team Status: Inactive Member Role Status Susan Dela Cruz MD Primary Care Provider Active Start: November 07, 2023 End: November 07, 2023 Curtis Norwood RN Attending Provider Active St art: November 07, 2023 End: November 07, 2023 Cathie Vargas , TRAFFIC CONTROL SUPERVISOR Active Star t: November 07, 2023 End: November 07, 2023 Team Status: Active Member Role Status Susan Dela Cruz MD [...] End: July 28, 2023 Cathie Vargas , TRAFFIC CONTROL SUPERVISOR Attending Provider Active Start: July 28, 2023 End: July 28, 2023 Team Status: Inactive Member Role Status Susan Dela Cruz MD Attending Provider Active St art: April 15, 2023 End: April 15, 2023 Team Status: Inactive Member Role Status Dates Cathie Vargas , TRAFFIC CONTROL SUPERVISOR Attending Provider Active Start: May 25, 2023 End: May 25, 2023 Team Status: Active Member Role Status Susan Dela Cruz MD Primary Care Provide r, Attending Provider Active Start: May 25, 2023 Team Status: Inactive Member Role Status Susan Dela Cruz MD Primary Care Provider Active Start: June 14, 2023 End: June 14, 2023 Brittani Collier RN Attending Provider Active Start: June 14, 2023 End: June 14, 2023 Cathie Vargas , TRAFFIC CONTROL SUPERVISOR Active Star t: June 14, 2023 End: [...] 2024 Team Status: Active Member Role Status Susan Drummond CMA Attending Provider Active Start: February [...] BE BASED ON THE PRIMARY CLINICAL RECORDS. [employer] provides no warranty or guarantee of the accuracy or completeness of information in this document.
[2024-06-26] MEDS: SULFUR HEXAFLUORIDE MICROSPHR 25 MG/5 ML VIAL 10 MG IV (10:02)
== END 2024-06-26 09:00 | disposition home or self-care (01) ==
LOC: CARD 08:59
PROVIDERS: PCP Family Medicine; Visit Provider Internal Medicine Cardiovascular Disease
DX: Z01.818 Encounter for other preprocedural examination (principal); R94.31 Abnormal electrocardiogram [ECG] [EKG]
CPT/HCPCS: 93308; Q9950

== ENCOUNTER 2024-06-26 10:59 | Outpatient (OUT) | payer MEDICARE, MEDICAID, SELFPAY ==
--- OUTSIDE RECORDS SUMMARY | 2024-06-26 11:21 | XMS_ITS | CCD ---
Author Organization [facility] Care Team Providers Care Jigger Operator Name Role Phone PHYSICIAN, DEFAULT Unavailable [...] Provider MD Shayy Dela Cruz Attending Provider [phone] MD Shayy Dela Cruz Primary Care Provider MD Shayy Dela Cruz Attending Provider Sam, CONVEYOR FEEDER OFFBEARER Cathie C Attending Provider Scally, Cathie C Admitting Unavailable Sam, Cathie C Attending Unavailable Shayy Dela Cruz Admitting Unavailable Shayy Dela Cruz Primary Care Unavailable Shayy Dela Cruz Attending Unavailable AlysangBirttani bentley Admitting Unavailable Yadira Colliertany Attending Unavailable Shayy Dela Cruz Primary Care Unavailable Unavailable Primary Care Provider UnavailNACHO Alcala Attending Unavailable MARQUES MOROCHO Attending Unavailable Allergies Allergy Classification Reported Allergen(s) Allergy Type Date of Onset Reaction(s) Facility (1 source) codeine Drug Allergy 9 [facility] Repository (20 sources) Latex; Translations: [LATEX] Drug allergy (disorder) 9 sores on skin [facility] Repository (20 sources) Codeine; Translations: [CODEINE] Drug Allergy [address] [facility] (19 sources) Latex Drug allergy 5 sores on skin [facility] Other (1 source) Codeine Drug Allergy [facility] Repository (8 sources) cat dander Allergy to substance [address], [address] [facility] (8 sources) dog dander Allergy to substance [address], [address] [facility] (8 sources) ozempic Propensity to adverse reactions [address] [facility] (1 source) Codeine Drug Allergy 4 [facility] Repository (1 source) Latex Drug allergy (disorder) 4 [facility] Repository (3 sources) Insulin Lispro; Translations: [INSULIN LISPRO] Drug Allergy 5 Rash [facility] (3 sources) tomato allergenic extract; Translations: [TOMATO] Drug Allergy 5 [facility] Medications Current Medications Medication Drug Class(es) Dates [...] May, Active Blood-Glucose Meter,Continuo us (Dexcom G7 Scrapper) misc (6 sources) Start: 12-13-2023 Blood-Glucose Meter,Continuous (Dexcom G7 Scrapper) misc Active 0 .Route December 12, 2023 11:00pm As directed Start: 12-13-2023 Blood-Glucose Meter,Continuous (Dexcom G7 Scrapper) misc Active 0 .Route December 13, 2023 12:00am As directed Start: 12-13-2023 Blood-Glucose Meter,Continuous (Dexcom G7 Scrapper) misc Active 0 .ROUTE December 13, 2023 [...] Orally Once a day Active Dexcom G7 Scrapper - (4 sources) Start: 06-03-19 24 Dexcom G7 Scrapper - as directed as directed 4 x [...] Start: 02-06-2024 take 1 capsule by mo [facility] once daily Esomeprazole Magnesium Active 0 [...] Jesus Lucas ( ) FreeStyle Amrik 3 [place] - (3 sources) Start: 06-06-2023 FreeStyle Libr e 3 [place] - as directed invitro 4 times daily [...] Continue; Provider: Jose De Jesus Delgado take 2 tablets by mo ut twice [...] Drug Class(es) Dates Sig (Normalized) Sig (Original) [id number] 200 actuat albuterol 0.09 mg/actuat metered dose [...] Jun, Not-Taking/PRN Blood-Glucose Meter,Continuous (Freestyle Amrik 3 [place]) misc (13 sources) Start: 07-28-2023 End: 12-13-2023 Blood-Glucose Meter,Continuous (Freestyle Amrik 3 [place]) misc Discontinued EACH .ROUTE .MEDSUPPLY July 27, 2023 11:00pm December 13, 2023 12:09pm As directed Start: 07-28-2023 End: 12-13-2023 Blood-Glucose Meter,Continuo us (Freestyle Amrik 3 [place]) misc Discontinued EACH .ROUTE .MEDSUPPLY July 28, 2023 12:00am December 13, 2023 1:09pm As directed Start: 07-28-2023 Blood-Glucose Meter,Continuous (Freestyle Amrik 3 [place]) misc Active EACH .ROUTE .MEDSUPPLY July 28, [...] angina pectoris; 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] Onset: 07-12-2022 [...] Onset: 11-09-2021 Chronic Other aftercare (17 sources) 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; Translations: [Long-term (current) [...] 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; Translations: [SNF CURRENT USE OF ASPIRIN] Onset: 04-08-2022 Episodic Other aftercare (1 source) [facility]PC (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 of oral hypoglycemic drugs; Translations: [SNF USE ORAL HYPOGLYCEMIC DX] Onset: 04-08-2022 Episodic Other aftercare (1 source) 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 Basophils/100 WBC Auto (Bld) on 05-16-2024 Basophils/100 WBC (Bld) Automated basophil % 0.2-2.0 [facility] Eosinophils/100 WBC Auto (Bl d)on 05-16-2024 Eosinophils/100 WBC (Bld) Automated eosinophil % 0.9-7.0 [facility] Erythrocyte distribution wid th Auto (RBC) [Ratio]on 05-16-2024 Erythrocyte distribution width (RBC) [Ratio] Erythrocyte distribution width [Ratio] by Automated count 11.0-15.0 [facility] Estimated glomerular filtrat ion rate (GFR) non- Americanon 05-16-2024 GFR/1.73 sq M.predicted among non-blacks MDRD (S/P/Bld) [Vol rate/Area] Estimated glomerular filtration rate (GFR) non- Low >=60 mL/min/1.73m 2 [facility] Hematocrit Auto (Bld) [Volum e fraction]on 05-16-2024 Hematocrit (Bld) [Volume fraction] Hematocrit [Volume Fraction] of Blood by Automated count 36.0-48.0 [facility] Hemoglobin [Mass/volume] in Bloodon 05-16-2024 Hemoglobin (Bld) [Mass/Vol] Hemoglobin [Mass/volume] in Blood 12.0-16.0 [facility] Laboratory - Chemistry and C hemistry - challengeon 05-16-2024 Calcium [Mass/Vol] 9.1 mg/dL 8.5-10.1 [facility] Chloride [Moles/Vol] 104 mmol/L 98-[address] [facility] CO2 [Moles/Vol] 30.6 mmol/L 21.0-32.0 [facility] Creatinine [Mass/Vol] 1.01 mg/dL 0.55-1.02 [facility] GFR/1.73 sq M.predicted MDRD (S/P/Bld) [Vol rate/Area] mL/min/{1.73_m2} >=60 mL/min/1.73m 2 [facility] Glucose [Mass/Vol] 206 mg/dL High 74-106 [facility] Potassium [Moles/Vol] 5.1 mmol/L 3.5-5.1 [facility] Sodium [Moles/Vol] 141 mmol/L 136-145 [facility] Urea nitrogen [Mass/Vol] 12.0 mg/dL 7.0-18.0 [facility] Urea nitrogen/Creatinine [Mass ratio] 11.9 mg/mg [facility] Laboratory - Hematology and Cell countson 05-16-2024 ESR (Bld) [Velocity] 28 mm/h <=[address] [facility] Immature granulocytes/100 WBC (Bld) 0.3 % 0.0-0.5 [facility] Leukocytes [#/volume] correc alma delia for nucleated erythrocytes in Blood by Automated counon 05-16-2024 WBC corrected for nucl RBC Auto (Bld) [#/Vol] Leukocytes [#/volume] corrected for nucleated erythrocytes in Blood by Automated coun 4.0-11.0 [facility] Lymphocytes Auto (Bld) [#/Vo l]on 05-16-2024 Lymphocytes (Bld) [#/Vol] Lymphocytes [#/volume] in Blood by Automated count 1.2-3.8 [facility] Lymphocytes/100 WBC Auto (Bl d)on 05-16-2024 Lymphocytes/100 WBC (Bld) Lymphocytes/100 leukocytes in Blood by Automated count 20.5-60.0 [facility] MCH Auto (RBC) [Entitic mass ]on 05-16-2024 MCH (RBC) [Entitic mass] MCH [Entitic mass] by Automated count 26.7-34.0 [facility] MCHC Auto (RBC) [Mass/Vol]on 05-16-2024 MCHC (RBC) [Mass/Vol] MCHC [Mass/volume] by Automated count 29.9-35.2 [facility] MCV Auto (RBC) [Entitic vol] on 05-16-2024 MCV (RBC) [Entitic vol] MCV [Entitic volume] by Automated count 81.0-99.0 [facility] Monocytes Auto (Bld) [#/Vol] on 05-16-2024 Monocytes (Bld) [#/Vol] Automated blood monocyte count 0.3-0.8 [facility] Monocytes/100 WBC Auto (Bld) on 05-16-2024 Monocytes/100 WBC (Bld) Automated monocyte % 1.7-12.0 [facility] Neutrophils Auto (Bld) [#/Vo l]on 05-16-2024 Neutrophils (Bld) [#/Vol] Neutrophils [#/volume] in Blood by Automated count 1.4-6.5 [facility] Neutrophils/100 WBC Auto (Bl d)on 05-16-2024 Neutrophils/100 WBC (Bld) Automated neutrophil % 43.0-75.0 [facility] No Panel Informationon 05-16 C-Reactive Protein, Quantitative 1.26 mg/dL High <=0.50 [facility] Eosinophils # (Auto) 0.3 10 3/uL 0.0-0.7 [facility] Immature Granulocyte # (Auto) 0.02 10 3/uL 0.00-0.03 [facility] Platelet mean volume Auto (B ld) [Entitic vol]on 05-16-2024 Platelet mean volume (Bld) [Entitic vol] Platelet mean volume [Entitic volume] in Blood by Automated count 9.5-13.5 [facility] Platelets Auto (Bld) [#/Vol] on 05-16-2024 Platelets (Bld) [#/Vol] Platelets [#/volume] in Blood by Automated count 150-450 [facility] RBC Auto (Bld) [#/Vol]on RBC (Bld) [#/Vol] Erythrocytes [#/volume] in Blood by Automated count 4.20-5.40 [facility] Serum or plasma anion gap de terminationon 05-16-2024 Anion gap [Moles/Vol] Serum or plasma anion gap determination [facility] Creatinine [Mass/volume] in UrineOrdered By: Cathie Vargas on 02-23-2024 Creatinine (U) [Mass/Vol] 28.00 mg/dL [facility] Comment on above: No reference range e stablished MicroAlb Creat Ratio,Uon Creatinine, Urine (Random) 28.00 mg/dL Normal [facility] Comment on above: Result Comment: No r eference range established Performed By: #### U RMACRERAT #### [facility] [address] [place] [address] Microalbumin/Creatin ine Ratio Not performed Normal 0.0-30.0 [facility] Comment on above: Result Comment: PERF ORMED BY: [place] [address] PATHOLOGIST TOE FORMER RUBINA RICCI M.D. Performed By: #### U RMACRERAT #### [facility] [address] [place] [address] [place] Microalbumin [Mass/volume] i n UrineOrdered By: Cathie Vargas on 02-23-2024 Albumin DL <= 20 mg/L (U) [Mass/Vol] mg/dL Normal 0.0-1.8 [facility] Comment on above: Performed By: #### U RMACRERAT #### [facility] [address] Urine microalbumin/creatinin e mass ratioOrdered By: Cathie Vargas on 02-23-2024 Albumin/Creatinine DL <= 20 mg/L (U) [Mass ratio] TNP [facility] Comment on above: Test not performed HbA1c HPLC (Bld) [Mass fract ion]on 12-13-2023 HbA1c (Bld) [Mass fraction] 9.9 % [facility] No Panel Informationon 12-[address] [facility] No Panel Informationon 09-[address] [facility] HbA1c HPLC (Bld) [Mass fract ion]on 07-28-2023 HbA1c (Bld) [Mass fraction] 10.3 % [facility] No Panel Informationon 07-[address] [facility] Basophils Auto (Bld) [#/Vol] on 07-12-2023 Basophils (Bld) [#/Vol] 0.0 10 3/uL 0.0-0.1 [facility] Basophils/100 WBC Auto (Bld) on 07-12-2023 Basophils/100 WBC (Bld) 0.5 % 0.2-2.0 [facility] Eosinophils/100 WBC Auto (Bl d)on 07-12-2023 Eosinophils/100 WBC (Bld) 1.5 % 0.9-7.0 [facility] Erythrocyte distribution wid th Auto (RBC) [Ratio]on 07-12-2023 Erythrocyte distribution width (RBC) [Ratio] 12.7 % 11.0-15.0 [facility] Estimated glomerular filtrat ion rate (GFR) non- Americanon 07-12-2023 GFR/1.73 sq M.predicted among non-blacks MDRD (S/P/Bld) [Vol rate/Area] mL/min/{1.73_m2} >=60 [facility] Hematocrit Auto (Bld) [Volum e fraction]on 07-12-2023 Hematocrit (Bld) [Volume fraction] 42.8 % 36.0-48.0 [facility] Hemoglobin [Mass/volume] in Bloodon 07-12-2023 Hemoglobin (Bld) [Mass/Vol] 14.3 g/dL 12.0-16.0 [facility] Laboratory - Chemistry and C hemistry - challengeon 07-12-2023 Calcium [Mass/Vol] 9.1 mg/dL 8.5-10.1 [facility] Chloride [Moles/Vol] 100 mmol/L 98-[address] [facility] CO2 [Moles/Vol] 26.1 mmol/L 21.0-32.0 [facility] Creatinine [Mass/Vol] 0.78 mg/dL 0.55-1.02 [facility] GFR/1.73 sq M.predicted MDRD (S/P/Bld) [Vol rate/Area] mL/min/{1.73_m2} >=60 [facility] Glucose [Mass/Vol] 215 mg/dL 74-106 [facility] Potassium [Moles/Vol] 4.0 mmol/L 3.5-5.1 [facility] Sodium [Moles/Vol] 137 mmol/L 136-145 [facility] Urea nitrogen [Mass/Vol] 12.0 mg/dL 7.0-18.0 [facility] Urea nitrogen/Creatinine [Mass ratio] 15.4 mg/mg [facility] Laboratory - Hematology and Cell countson 07-12-2023 Immature granulocytes/100 WBC (Bld) 0.1 % 0.0-0.5 [facility] Leukocytes [#/volume] correc alma delia for nucleated erythrocytes in Blood by Automated counon 07-12-2023 WBC corrected for nucl RBC Auto (Bld) [#/Vol] 7.8 10 3/uL 4.0-11.0 [facility] Lymphocytes Auto (Bld) [#/Vo l]on 07-12-2023 Lymphocytes (Bld) [#/Vol] 2.7 10 3/uL 1.2-3.8 [facility] Lymphocytes/100 WBC Auto (Bl d)on 07-12-2023 Lymphocytes/100 WBC (Bld) 34.1 % 20.5-60.0 [facility] MCH Auto (RBC) [Entitic mass ]on 07-12-2023 MCH (RBC) [Entitic mass] 29.2 pg 26.7-34.0 [facility] MCHC Auto (RBC) [Mass/Vol]on 07-12-2023 MCHC (RBC) [Mass/Vol] 33.4 g/dL 29.9-35.2 [facility] MCV Auto (RBC) [Entitic vol] on 07-12-2023 MCV (RBC) [Entitic vol] 87.5 fL 81.0-99.0 [facility] Monocytes Auto (Bld) [#/Vol] on 07-12-2023 Monocytes (Bld) [#/Vol] 0.5 10 3/uL 0.3-0.8 [facility] Monocytes/100 WBC Auto (Bld) on 07-12-2023 Monocytes/100 WBC (Bld) 6.4 % 1.7-12.0 [facility] Neutrophils Auto (Bld) [#/Vo l]on 07-12-2023 Neutrophils (Bld) [#/Vol] 4.5 10 3/uL 1.4-6.5 [facility] Neutrophils/100 WBC Auto (Bl d)on 07-12-2023 Neutrophils/100 WBC (Bld) 57.4 % 43.0-75.0 [facility] No Panel Informationon 07-11 Eosinophils # (Auto) 0.1 10 3/uL 0.0-0.7 [facility] Immature Granulocyte # (Auto) 0.01 10 3/uL 0.00-0.03 [facility] Platelet mean volume Auto (B ld) [Entitic vol]on 07-12-2023 Platelet mean volume (Bld) [Entitic vol] 10.9 fL 9.5-13.5 [facility] Platelets Auto (Bld) [#/Vol] on 07-12-2023 Platelets (Bld) [#/Vol] 259 10 3/uL 150-450 [facility] RBC Auto (Bld) [#/Vol]on RBC (Bld) [#/Vol] 4.89 10 6/uL 4.20-5.40 [facility] Serum or plasma anion gap de terminationon 07-12-2023 Anion gap [Moles/Vol] 14.9 mmol/L [facility] Glucose - FINGER STICKon Glucose [Mass/Vol] 360 mg/dL [facility] Other CBC AUTO DIFFon 08-27-2022 BASO # 0.0 103/ul Normal 0.0-0.1 [facility] Comment on above: Performed By: #### C BC #### [facility] [address] [place] [address] Dr. Sarah Church Basophils/100 WBC (Bld) 0.5 % Normal 0.2-2.0 [facility] Comment on above: Performed By: #### C BC #### [facility] [address] [place] [address] Dr. Sarah Church EO # 0.2 103/ul Normal 0.0-0.7 [facility] Comment on above: Performed By: #### C BC #### [facility] [address] [place] [address] Dr. Sarah Church Eosinophils/100 WBC (Bld) 2.2 % Normal 0.9-7.0 [facility] Comment on above: Performed By: #### C BC #### [facility] [address] [place] [address] Dr. Sarah Church Erythrocyte distribution width (RBC) [Ratio] 12.5 % Normal 11.0-15.0 [facility] Comment on above: Performed By: #### C BC #### [facility] [address] [place] [address] Dr. Sarah Church Hematocrit (Bld) [Volume fraction] 44.1 % Normal 36.0-48.0 [facility] Comment on above: Performed By: #### C BC #### [facility] [address] [place] [address] Dr. Sarah Church Hemoglobin (Bld) [Mass/Vol] 15.1 g/dL Normal 12.0-16.0 [facility] Comment on above: Performed By: #### C BC #### [facility] [address] [place] [address] Dr. Sarah Church IG # 0.02 10e3/ul Normal 0.00-0.03 [facility] Comment on above: Performed By: #### C BC #### [facility] [address] [place] [address] Dr. Sarah Church IG % 0.2 % Normal 0.0-0.5 [facility] Comment on above: Performed By: #### C BC #### [facility] [address] [place] [address] Dr. Sarah Church LYMPH # 2.9 103/ul Normal 1.2-3.8 [facility] Comment on above: Performed By: #### C BC #### [facility] [address] [place] [address] Dr. Sarah Church Lymphocytes/100 WBC (Bld) 33.4 % Normal 20.5-60.0 [facility] Comment on above: Performed By: #### C BC #### [facility] [address] [place] [address] Dr. Sarah Chucrh MANUAL DIFF REQ NO Normal [facility] Comment on above: Performed By: #### C BC #### [facility] [address] [place] [address] Dr. Sarah Church MCH (RBC) [Entitic mass] 29.1 pg Normal 26.7-34.0 [facility] Comment on above: Performed By: #### C BC #### [facility] [address] [place] [address] Dr. Sarah Church MCHC (RBC) [Mass/Vol] 34.2 g/dL Normal 29.9-35.2 [facility] Comment on above: Performed By: #### C BC #### [facility] [address] [place] [address] Dr. Sarah Church MCV (RBC) [Entitic vol] 85.0 fL Normal 81.0-99.0 [facility] Comment on above: Performed By: #### C BC #### [facility] [address] [place] [address] Dr. Sarah Church MONO # 0.6 103/ul Normal 0.3-0.8 [facility] Comment on above: Performed By: #### C BC #### [facility] [address] [place] [address] Dr. Sarah Church Monocytes/100 WBC (Bld) 6.8 % Normal 1.7-12.0 [facility] Comment on above: Performed By: #### C BC #### [facility] [address] [place] [address] Dr. Sarah Church NEUT # 4.9 103/ul Normal 1.4-6.5 [facility] Comment on above: Performed By: #### C BC #### [facility] [address] [place] [address] Dr. Sarah Church Neutrophils/100 WBC (Bld) 56.9 % Normal 43.0-75.0 [facility] Comment on above: Performed By: #### C BC #### [facility] [address] [place] [address] Dr. Sarah Church Platelet mean volume (Bld) [Entitic vol] 10.8 fL Normal 9.5-13.5 [facility] Comment on above: Performed By: #### C BC #### [facility] [address] [place] [address] Dr. Sarah Church PLT 276 103/ul Normal 150-450 [facility] Comment on above: Performed By: #### C BC #### [facility] [address] [place] [address] Dr. Sarah Church RBC 5.19 106/ul Normal 4.20-5.40 [facility] Comment on above: Performed By: #### C BC #### [facility] [address] [place] [address] Dr. Sarah Church WBC 8.6 103/ul Normal 4.0-11.0 [facility] Comment on above: Performed By: #### C BC #### [facility] [address] [address] [address] Sarah Church LIPID PROFILEon 08-27-2022 CHOL-HDL RATIO NORM SEE BELOW Normal [facility] Comment on above: Result Comment: 3.3 - 4.4 LOW RISK 4.4 - 7.1 AVERAGE RISK 7.1 - 11.0 MODERATE RISK >11.0 HIGH RISK Performed By: #### L IPID, CMP #### [facility] [address] [address] [address] Sarah Church Cholesterol [Mass/Vol] 110 mg/dL Normal <=200 [facility] Comment on above: Performed By: #### L IPID, CMP #### [facility] [address] [address] [address] Sarah Church Cholesterol in HDL [Mass/Vol] 33 mg/dL Critically low 40-60 [facility] Comment on above: Performed By: #### L IPID, CMP #### [facility] [address] [address] [address] Sarah Church Cholesterol in LDL [Mass/Vol] 58.0 mg/dL Normal [facility] Comment on above: Performed By: #### L IPID, CMP #### [facility] [address] [address] [address] Sarah Church Cholesterol.total/Ch olesterol in HDL [Mass ratio] 3.3 {ratio} Normal [facility] Comment on above: Performed By: #### L IPID, CMP #### [facility] [address] [address] [address] Sarah hCurch HDL NORMAL > or = 60 mg/dl - LOW CARDIOVASCULAR RISK <40 mg/dl - HIGH CARDIOVASCULAR RISK Normal [facility] Comment on above: Performed By: #### L IPID, CMP #### [facility] [address] [address] [address] Sarah Church LDL CALC NORMAL SEE BELOW Normal [facility] Comment on above: Result Comment: <100 mg/dl OPTIMAL 100 - 129 mg/dl NEAR OR ABOVE OPTIMAL 130 - 159 mg/dl BORDERLINE HIGH 160 - 189 mg/dl HIGH >190 mg/dl VERY HIGH Performed By: #### L IPID, CMP #### [facility] [address] [place] [address] Dr. Sarah Church Triglyceride [Mass/Vol] 95 mg/dL Normal <=150 [facility] Comment on above: Performed By: #### L IPID, CMP #### [facility] [address] [place] [address] Dr. Sarah Church VLDL CALC 19.0 mg/dL Normal [facility] Comment on above: Performed By: #### L IPID, CMP #### [facility] [address] [place] [address] Dr. Sarah Church PROF 14(COMP METB)on 023 Albumin [Mass/Vol] 3.3 g/dL Critically low 3.4-5.0 [facility] Comment on above: Performed By: #### L IPID, CMP #### [facility] [address] [place] [address] Dr. Sarah Church Albumin/Globulin [Mass ratio] 0.8 {ratio} Normal [facility] Comment on above: Performed By: #### L IPID, CMP #### [facility] [address] [place] [address] Dr. Sarah Church ALP [Catalytic activity/Vol] 100 U/L Normal 46-116 [facility] Comment on above: Performed By: #### L IPID, CMP #### [facility] [address] [place] [address] Dr. Sarah Church ALT [Catalytic activity/Vol] 74 U/L Critically high 14-59 [facility] Comment on above: Performed By: #### L IPID, CMP #### [facility] [address] [place] [address] Dr. Sarah Church Anion gap [Moles/Vol] 13.2 mmol/L Normal [facility] [facility] Comment on above: Performed By: #### L IPID, CMP #### [facility] [address] [place] [address] Dr. Sarah Church AST [Catalytic activity/Vol] 42 U/L Critically high 15-37 [facility] Comment on above: Performed By: #### L IPID, CMP #### [facility] [address] [place] [address] Dr. Sarah Church Bilirubin [Mass/Vol] 0.4 mg/dL Normal 0.2-1.0 [facility] Comment on above: Performed By: #### L IPID, CMP #### [facility] [address] [place] [address] Dr. Sarah Church Calcium [Mass/Vol] 9.2 mg/dL Normal 8.5-10.1 [facility] Comment on above: Performed By: #### L IPID, CMP #### [facility] [address] [place] [address] Dr. Sarah Church Chloride [Moles/Vol] 99 mmol/L Normal 98-107 [facility] Comment on above: Performed By: #### L IPID, CMP #### [facility] [address] [place] [address] Dr. Sarah Church CO2 [Moles/Vol] 30.4 mmol/L Normal 21.0-32.[address] [facility] Comment on above: Performed By: #### L IPID, CMP #### [facility] [address] [place] [address] Dr. Sarah Church Creatinine [Mass/Vol] 0.78 mg/dL Normal 0.55-1.02 [facility] Comment on above: Performed By: #### L IPID, CMP #### [facility] [address] [place] [address] Dr. Sarah Church EGFR-AF BELGIAN >60 Normal >=[address] [facility] Comment on above: Performed By: #### L IPID, CMP #### [facility] [address] [place] [address] Dr. Sarah Church EGFR-NON AF BELGIAN >60 Normal >=60 [facility] Comment on above: Performed By: #### L IPID, CMP #### [facility] [address] [place] [address] Dr. Sarah Church Globulin (S) [Mass/Vol] 4.0 g/dL Normal [facility] Comment on above: Performed By: #### L IPID, CMP #### [facility] [address] [place] [address] Dr. Sarah Church Glucose [Mass/Vol] 255 mg/dL Critically high 74-106 T [facility] Comment on above: Performed By: #### L IPID, CMP #### [facility] [address] [place] [address] Dr. Sarah Church Potassium [Moles/Vol] 3.6 mmol/L Normal 3.5-5.1 [facility] Comment on above: Performed By: #### L IPID, CMP #### [facility] [address] [place] [address] Dr. Sarah Church Protein [Mass/Vol] 7.3 g/dL Normal 6.4-8.2 [facility] Comment on above: Performed By: #### L IPID, CMP #### [facility] [address] [place] [address] Dr. Sarah Church Sodium [Moles/Vol] 139 mmol/L Normal 136-145 [facility] Comment on above: Performed By: #### L IPID, CMP #### [facility] [address] [place] [address] Dr. Sarah Church Urea nitrogen [Mass/Vol] 8.0 mg/dL Normal 7.0-18.0 [facility] Comment on above: Performed By: #### L IPID, CMP #### [facility] [address] [place] [address] Dr. Sarah Church Urea nitrogen/Creatinine [Mass ratio] 10.3 mg/mg Normal [facility] Comment on above: Performed By: #### L IPID, CMP #### [facility] [address] [place] [address] Dr. Sarah Church MG MAMM SCREEN 3D ROB CADon 07-20-2022 MG MAMM SCREEN 3D ROB CAD Patient: ZOILA RAMOS Exam Date: 07/20/2022 : 1970 Gender:F Ordering : DR SHAYY DELA CRUZ M.D. Admission #: [id number] Family : Order #: [id number] CLICK HERE TO VIEW EXAM RADIOLOGY REPORT PROCEDURE: MAMMOGRAM SCREENING 3D BILATERAL CAD COMPARISON: MAMMO ROB SCREEN W CAD DIG, 05/16/2012. INDICATIONS: Screening mammography Calculator Name NCI Breast Cancer Risk Assessment Tool 5 Year Breast Cancer Risk 1.20% Lifetime Breast Cancer Risk 10.80% Personal Breast Cancer No Personal Ovarian Cancer No Treatments None Family Cancers None LOCATION: [facility] BREAST COMPOSITION: Almost entirely fatty. [...] on 07/21/2022 at 08:24 Normal [facility] PROF CHEM 8 (BAS METB)on Anion gap [Moles/Vol] 14.5 mmol/L Normal [facility] Comment on above: Performed By: #### B MP #### [facility] [address] [address] [address] Sarah Church Calcium [Mass/Vol] 9.8 mg/dL Normal 8.5-10.1 [facility] Comment on above: Performed By: #### B MP #### [facility] [address] [address] [address] Sarah Church Chloride [Moles/Vol] 99 mmol/L Normal 98-107 [facility] Comment on above: Performed By: #### B MP #### [facility] [address] [address] [address] Sarah Church CO2 [Moles/Vol] 27.2 mmol/L Normal 21.0-32.0 [facility] Comment on above: Performed By: #### B MP #### [facility] [address] [address] [address] Sarah hCurch Creatinine [Mass/Vol] 0.80 mg/dL Normal 0.55-1.02 [facility] Comment on above: Performed By: #### B MP #### [facility] [address] [address] [address] Sarah Church EGFR-AF BELGIAN >60 Normal >=60 [facility] Comment on above: Performed By: #### B MP #### [facility] [address] [address] [address] Sarah Church EGFR-NON AF BELGIAN >60 Normal >=60 [facility] Comment on above: Performed By: #### B MP #### [facility] [address] [address] [address] Sarah Church Glucose [Mass/Vol] 458 mg/dL Critically high 74-106 T [facility] Comment on above: Performed By: #### B MP #### [facility] [address] [address] [address] Sarah Church Potassium [Moles/Vol] 4.7 mmol/L Normal 3.5-5.1 [facility] Comment on above: Performed By: #### B MP #### [facility] [address] [address] [address] Sarah Church Sodium [Moles/Vol] 136 mmol/L Normal 136-145 [facility] Comment on above: Performed By: #### B MP #### [facility] [address] [address] [address] Sarah Church Urea nitrogen [Mass/Vol] 15.0 mg/dL Normal 7.0-18.0 [facility] Comment on above: Performed By: #### B MP #### [facility] [address] [address] [address] Sarah Church Urea nitrogen/Creatinine [Mass ratio] 18.8 mg/mg Normal [facility] Comment on above: Performed By: #### B MP #### [facility] [address] [address] [address] Sarah Church GLYCOHEMOGLOBIN A1Con 2022 ADA RECOMMENDATION SEE BELOW Normal [facility] Comment on above: Result Comment: ADA RECOMMENDED LIMIT 4.0 - 6.0 ADA THERAPEUTIC TARGET < 7.0 ACTION SUGGESTED > 7.0 Performed By: #### A 1C ####[facility] [address] [address]Dr. Sarah Church Glucose [Mass/Vol] 266 mg/dL Normal [facility] Comment on above: Performed By: #### A 1C ####[facility] [address] [address]Dr. Sarah Church HbA1c (Bld) [Mass fraction] 10.9 % Critically high 4.5-6.2 [facility] Comment on above: Performed By: #### A 1C ####[facility] [address] [address]Dr. Sarah Church XR HIP RT 2 3V [...] JAVAD ROB Date: 2022-04-06 21:15 Normal [facility] CBC AUTO DIFFon 11-05-2021 BASO # 0.1 103/ul Normal 0.0-0.1 [facility] Comment on above: Performed By: #### C BC #### [facility] [address] [place] [address] Dr. Sarah Church Basophils/100 WBC (Bld) 0.4 % Normal 0.2-2.0 [facility] Comment on above: Performed By: #### C BC #### [facility] [address] [address] [address] Sarah Church EO # 0.2 103/ul Normal 0.0-0.7 [facility] Comment on above: Performed By: #### C BC #### [facility] [address] [address] [address] Sarah Church Eosinophils/100 WBC (Bld) 1.3 % Normal 0.9-7.0 [facility] Comment on above: Performed By: #### C BC #### [facility] [address] [place] [address] Dr. Sarah Church Erythrocyte distribution width (RBC) [Ratio] 12.3 % Normal 11.0-15.0 [facility] Comment on above: Performed By: #### C BC #### [facility] [address] [place] [address] Dr. Sarah Church Hematocrit (Bld) [Volume fraction] 43.1 % Normal 36.0-48.0 [facility] Comment on above: Performed By: #### C BC #### [facility] [address] [place] [address] Dr. Sarah Church Hemoglobin (Bld) [Mass/Vol] 14.6 g/dL Normal 12.0-16.0 [facility] Comment on above: Performed By: #### C BC #### [facility] [address] [place] [address] Dr. Sarah Church IG # 0.04 10e3/ul Critically high 0.00-0.03 [facility] Comment on above: Performed By: #### C BC #### [facility] [address] [place] [address] Dr. Sarah Church IG % 0.3 % Normal 0.0-0.5 [facility] Comment on above: Performed By: #### C BC #### [facility] [address] [place] [address] Dr. Saarh Church LYMPH # 1.6 103/ul Normal 1.2-3.8 [facility] Comment on above: Performed By: #### C BC #### [facility] [address] [place] [address] Dr. Sarah Church Lymphocytes/100 WBC (Bld) 12.5 % Critically low 20.5-60.0 [facility] Comment on above: Performed By: #### C BC #### [facility] [address] [place] [address] Dr. Sarah Church MANUAL DIFF REQ NO Normal [facility] Comment on above: Performed By: #### C BC #### [facility] [address] [address] [address] Sarah Church MCH (RBC) [Entitic mass] 29.4 pg Normal 26.7-34.0 [facility] Comment on above: Performed By: #### C BC #### [facility] [address] [address] [address] Sarah Church MCHC (RBC) [Mass/Vol] 33.9 g/dL Normal 29.9-35.2 [facility] Comment on above: Performed By: #### C BC #### [facility] [address] [place] [address] Dr. Sarah hCurch MCV (RBC) [Entitic vol] 86.7 fL Normal 81.0-99.0 [facility] Comment on above: Performed By: #### C BC #### [facility] [address] [place] [address] Dr. Sarah Church MONO # 1.0 103/ul Critically high 0.3-0.8 [facility] Comment on above: Performed By: #### C BC #### [facility] [address] [place] [address] Dr. Sarah Church Monocytes/100 WBC (Bld) 7.7 % Normal 1.7-12.0 [facility] Comment on above: Performed By: #### C BC #### [facility] [address] [place] [address] Dr. Sarah Church NEUT # 9.6 103/ul Critically high 1.4-6.5 [facility] Comment on above: Performed By: #### C BC #### [facility] [address] [place] [address] Dr. Sarah Church Neutrophils/100 WBC (Bld) 77.8 % Critically high 43.0-75.0 [facility] Comment on above: Performed By: #### C BC #### [facility] [address] [place] [address] Dr. Sarah Church Platelet mean volume (Bld) [Entitic vol] 11.0 fL Normal 9.5-13.5 [facility] Comment on above: Performed By: #### C BC #### [facility] [address] [address] [address] Sarah Church PLT 220 103/ul Normal 150-450 [facility] Comment on above: Performed By: #### C BC #### [facility] [address] [address] [address] Sarah Church RBC 4.97 106/ul Normal 4.20-5.40 [facility] Comment on above: Performed By: #### C BC #### [facility] [address] [address] [address] Sarah Church WBC 12.4 103/ul Critically high 4.0-11.0 [facility] Comment on above: Performed By: #### C BC #### [facility] [address] [place] [address] Dr. Sarah Church GROUP A STREP CULTUREon S. pyogenes Ag Ql (Unsp spec) Culture Observations: NEGATIVE FOR GROUP A STREPTOCOCCUS. Normal [facility] Comment on above: Performed By: #### G RASTCX SSCRN ####[facility] [address] [address]Dr. Sarah Church POINT OF CARE GLUCOSEon Glucose [Mass/Vol] 214 mg/dL Critically high 74-106 T [facility] Comment on above: Performed By: #### P OCGLUC #### [facility] [address] [address] [address] Sarah Church STREPT SCREENon 11-05-2021 STREP SCREEN A Negative Normal NEGATIVE [facility] Comment on above: Performed By: #### G RASTCX, SSCRN ####[facility] [address] [address]Dr. Sarah Church CBC AUTO DIFFon 10-16-2021 BASO # 0.1 103/ul Normal 0.0-0.1 [facility] Comment on above: Performed By: #### C BC #### [facility] [address] [place] [address] Dr. Sarah Church Basophils/100 WBC (Bld) 0.8 % Normal 0.2-2.0 [facility] Comment on above: Performed By: #### C BC #### [facility] [address] [place] [address] Dr. Sarah Church EO # 0.3 103/ul Normal 0.0-0.7 [facility] Comment on above: Performed By: #### C BC #### [facility] [address] [place] [address] Dr. Sarah Church Eosinophils/100 WBC (Bld) 3.4 % Normal 0.9-7.0 [facility] Comment on above: Performed By: #### C BC #### [facility] [address] [place] [address] Dr. Sarah Church Erythrocyte distribution width (RBC) [Ratio] 12.6 % Normal 11.0-15.0 [facility] Comment on above: Performed By: #### C BC #### [facility] [address] [place] [address] Dr. Sarah Church Hematocrit (Bld) [Volume fraction] 45.4 % Normal 36.0-48.0 [facility] Comment on above: Performed By: #### C BC #### [facility] [address] [place] [address] Dr. Sarah Church Hemoglobin (Bld) [Mass/Vol] 15.0 g/dL Normal 12.0-16.0 [facility] Comment on above: Performed By: #### C BC #### [facility] [address] [place] [address] Dr. Sarah Church IG # 0.02 10e3/ul Normal 0.00-0.03 [facility] Comment on above: Performed By: #### C BC #### [facility] [address] [place] [address] Dr. Sarah Church IG % 0.2 % Normal 0.0-0.5 [facility] Comment on above: Performed By: #### C BC #### [facility] [address] [place] [address] Dr. Sarah Church LYMPH # 2.7 103/ul Normal 1.2-3.8 [facility] Comment on above: Performed By: #### C BC #### [facility] [address] [place] [address] Dr. Sarah Church Lymphocytes/100 WBC (Bld) 31.0 % Normal 20.5-60.0 [facility] Comment on above: Performed By: #### C BC #### [facility] [address] [place] [address] Dr. Sarah Church MANUAL DIFF REQ NO Normal [facility] Comment on above: Performed By: #### C BC #### [facility] [address] [place] [address] Dr. Sarah Church MCH (RBC) [Entitic mass] 29.3 pg Normal 26.7-34.0 [facility] Comment on above: Performed By: #### C BC #### [facility] [address] [place] [address] Dr. Sarah Church MCHC (RBC) [Mass/Vol] 33.0 g/dL Normal 29.9-35.2 [facility] Comment on above: Performed By: #### C BC #### [facility] [address] [place] [address] Dr. Sarah Church MCV (RBC) [Entitic vol] 88.7 fL Normal 81.0-99.0 [facility] Comment on above: Performed By: #### C BC #### [facility] [address] [place] [address] Dr. Sarah Church MONO # 0.6 103/ul Normal 0.3-0.8 [facility] Comment on above: Performed By: #### C BC #### [facility] [address] [place] [address] Dr. Sarah Church Monocytes/100 WBC (Bld) 6.5 % Normal 1.7-12.0 [facility] Comment on above: Performed By: #### C BC #### [facility] [address] [place] [address] Dr. Sarah Church NEUT # 5.0 103/ul Normal 1.4-6.5 [facility] Comment on above: Performed By: #### C BC #### [facility] [address] [address] [address] Sarah Church Neutrophils/100 WBC (Bld) 58.1 % Normal 43.0-75.0 [facility] Comment on above: Performed By: #### C BC #### [facility] [address] [address] [address] Sarah Church Platelet mean volume (Bld) [Entitic vol] 11.0 fL Normal 9.5-13.5 [facility] Comment on above: Performed By: #### C BC #### [facility] [address] [place] [address] Dr. Sarah Church PLT 226 103/ul Normal 150-450 [facility] Comment on above: Performed By: #### C BC #### [facility] [address] [address] [address] Sarah Church RBC 5.12 106/ul Normal 4.20-5.40 [facility] Comment on above: Performed By: #### C BC #### [facility] [address] [address] [address] Sarah Church WBC 8.6 103/ul Normal 4.0-11.0 [facility] Comment on above: Performed By: #### C BC #### [facility] [address] [address] [address] Sarah Church GLYCOHEMOGLOBIN A1Con 2021 ADA RECOMMENDATION SEE BELOW Normal [facility] Comment on above: Result Comment: ADA RECOMMENDED LIMIT 4.0 - 6.0 ADA THERAPEUTIC TARGET < 7.0 ACTION SUGGESTED > 7.0 Performed By: #### A 1C ####[facility] [address] [address]Dr. Sarah Church Glucose [Mass/Vol] 275 mg/dL Normal [facility] Comment on above: Performed By: #### A 1C ####[facility] [address] [address]Dr. Sarah Church HbA1c (Bld) [Mass fraction] 11.2 % Critically high 4.5-6.2 [facility] Comment on above: Performed By: #### A 1C ####[facility] [address] [place], [place] [address]On. Sarah Church LIPID PROFILEon 10-16-2021 CHOL-HDL RATIO NORM SEE BELOW Normal [facility] Comment on above: Result Comment: 3.3 - 4.4 LOW RISK 4.4 - 7.1 AVERAGE RISK 7.1 - 11.0 MODERATE RISK >11.0 HIGH RISK Performed By: #### L IPID, CMP ####[facility] [address] [place], [place] [address]At. Sarah Church Cholesterol [Mass/Vol] 159 mg/dL Normal <=200 [facility] Comment on above: Performed By: #### L IPID, CMP ####[facility] [address] [place], [place] [address]Zt. Corriebrenden Ranjit Cholesterol in HDL [Mass/Vol] 41 mg/dL Normal 40-60 [facility] Comment on above: Performed By: #### L IPID, CMP ####[facility] [address] [place], [place] [address]Yc. Corriebrenden Ranjit Cholesterol in LDL [Mass/Vol] 102.6 mg/dL Normal [facility] Comment on above: Performed By: #### L IPID, CMP ####[facility] [address] [place], [place] [address]Oh. Corriebrenden Ranjit Cholesterol.total/Ch olesterol in HDL [Mass ratio] 3.9 {ratio} Normal [facility] Comment on above: Performed By: #### L IPID, CMP ####[facility] [address] [place], [place] [address]Fu. Corriebrenden Ranjit HDL NORMAL > or = 60 mg/dl - LOW CARDIOVASCULAR RISK <40 mg/dl - HIGH CARDIOVASCULAR RISK Normal [facility] Comment on above: Performed By: #### L IPID, CMP ####[facility] [address] [place], [place] [address]Hs. Sarah Church LDL CALC NORMAL SEE BELOW Normal [facility] Comment on above: Result Comment: <100 mg/dl OPTIMAL 100 - 129 mg/dl NEAR OR ABOVE OPTIMAL 130 - 159 mg/dl BORDERLINE HIGH 160 - 189 mg/dl HIGH >190 mg/dl VERY HIGH Performed By: #### L IPID, CMP ####[facility] [address] [address]Dr. aSrah Church Triglyceride [Mass/Vol] 77 mg/dL Normal <=150 [facility] Comment on above: Performed By: #### L IPID, CMP ####[facility] [address] [address]Dr. Sarah Church VLDL CALC 15.4 mg/dL Normal [facility] Comment on above: Performed By: #### L IPID, CMP ####[facility] [address] [address]Dr. Sarah Church MICROALBUMIN, RAND URon 09-30 mALB 2.0 mg/L Normal <=30.0 [facility] Comment on above: Performed By: #### M ALBR #### [facility] [address] [address] [address] Sarah Church PROF 14(COMP METB)on 022 Albumin [Mass/Vol] 3.5 g/dL Normal 3.4-5.0 [facility] Comment on above: Performed By: #### L IPID, CMP ####[facility] [address] [address]DrCoretta Church Albumin/Globulin [Mass ratio] 0.8 {ratio} Normal [facility] Comment on above: Performed By: #### L IPID, CMP ####[facility] [address] [address]DrCoretta Church ALP [Catalytic activity/Vol] 85 U/L Normal 46-116 [facility] Comment on above: Performed By: #### L IPID, CMP ####[facility] [address] [address]DrCoretta Church ALT [Catalytic activity/Vol] 59 U/L Normal 14-59 [facility] Comment on above: Performed By: #### L IPID, CMP ####[facility] [id number] [address] [place], [place] [address]Dr. Sarah Church Anion gap [Moles/Vol] 15.1 mmol/L Normal [facility] Comment on above: Performed By: #### L IPID, CMP ####[facility] [address]ows[address] [place], [place] [address]Dr. Sarah Church AST [Catalytic activity/Vol] 32 U/L Normal 15-37 [facility] Comment on above: Performed By: #### L IPID, CMP ####[facility] T[address]ak[address] [place], [place] [address]Dr. Sarah Ranjit Bilirubin [Mass/Vol] 0.4 mg/dL Normal 0.2-1.0 [facility] Comment on above: Performed By: #### L IPID, CMP ####[facility] [address] [place], [place] [address]Dr. Sarah Church Calcium [Mass/Vol] 9.0 mg/dL Normal 8.5-10.1 [facility] Comment on above: Performed By: #### L IPID, CMP ####[facility] [address] [place], [place] [address]Dr. Corriebrenden Church Chloride [Moles/Vol] 102 mmol/L Normal 98-107 [facility] Comment on above: Performed By: #### L IPID, CMP ####[facility] N[address] [place], [place] [address]Dr. Sarah Church CO2 [Moles/Vol] 30.2 mmol/L Normal 21.0-32.[address] [facility] Comment on above: Performed By: #### L IPID, CMP ####[facility] [address] [place], [place] [address]Dr. Sarah Ranjit Creatinine [Mass/Vol] 0.81 mg/dL Normal 0.55-1.02 [facility] Comment on above: Performed By: #### L IPID, CMP ####[facility] [address]fs[address] [place], [place] [address]Dr. Sarah Church EGFR-AF BELGIAN >60 Normal >=60 [facility] Comment on above: Performed By: #### L IPID, CMP ####[facility] [address] [place] [address]Dr. Sarah Church EGFR-NON AF BELGIAN >60 Normal >=60 [facility] Comment on above: Performed By: #### L IPID, CMP ####[facility] [address] [place] [address]Dr. Sarah Church Globulin (S) [Mass/Vol] 3.9 g/dL Normal [facility] Comment on above: Performed By: #### L IPID, CMP ####[facility] [address] [place], [place] [address]Dr. Sarah Church Glucose [Mass/Vol] 218 mg/dL Critically high 74-106 [facility] Comment on above: Performed By: #### L IPID, CMP ####[facility] [address] [place], [place] [address]Dr. Sarah Church Potassium [Moles/Vol] 4.3 mmol/L Normal 3.5-5.1 [facility] Comment on above: Performed By: #### L IPID, CMP ####[facility] [address] [place], [place] [address]Dr. Sarah Church Protein [Mass/Vol] 7.4 g/dL Normal 6.4-8.2 [facility] Comment on above: Performed By: #### L IPID, CMP ####[facility] [address] [place], [place] [address]Dr. Sarah Church Sodium [Moles/Vol] 143 mmol/L Normal 136-145 [facility] Comment on above: Performed By: #### L IPID, CMP ####[facility] [address] [place], [place] [address]Dr. Sarah Church Urea nitrogen [Mass/Vol] 14.0 mg/dL Normal 7.0-18.0 [facility] Comment on above: Performed By: #### L IPID, CMP ####[facility] [address] [place], [place] [address]Dr. Sarah Church Urea nitrogen/Creatinine [Mass ratio] 17.2 mg/mg Normal [facility] Comment on above: Performed By: #### L IPID, CMP ####[facility] [address] [place], [place] [address]Oh. Sarah Church Vital Signs Date Time Vital Sign Value Performing Clinician Facility 06-14-2024 10:21-0500 Body height 157.5 cm Nacho Patiño MD Work Phone: [facility] 06-14-2024 10:21-0500 Body mass index (BMI) [Ratio] 38.59 kg/m2 Nacho Patiño MD Work Phone: [facility] 06-14-2024 10:21-0500 Body temperature 97.3 [degF] Nacho Patiño MD Work Phone: [facility] 06-14-2024 10:21-0500 Body weight 95.71 kg Nacho Patiño MD Work Phone: [facility] 06-14-2024 10:21-0500 Diastolic blood pressure 82 mm[Hg] Nacho Patiño MD Work Phone: [facility] 06-14-2024 10:21-0500 Heart rate 88 /min Nacho Patiño MD Work Phone: [facility] 06-14-2024 10:21-0500 SaO2% (BldA) [Mass fraction] 97 % Nacho Patiño MD Work Phone: [facility] 06-14-2024 10:21-0500 Systolic blood pressure 136 mm[Hg] Nacho Patiño MD Work Phone: [facility] 05-30-2024 10:48-0500 Body height 157.48 cm [facility] 05-30-2024 10:48-0500 Body mass index (BMI) [Ratio] 38.5 kg/m2 [facility] 05-30-2024 10:48-0500 Body weight 95.7 kg [facility] 05-30-2024 10:48-0500 Diastolic blood pressure 77 mm[Hg] [facility] 05-30-2024 10:48-0500 Heart rate 80 /min [facility] 05-30-2024 10:48-0500 Systolic blood pressure 133 mm[Hg] [facility] 02-23-2024 13:23-0400 Body height 157.48 cm [facility] 02-23-2024 13:23-0400 Body mass index (BMI) [Ratio] 38 kg/m2 [facility] 02-23-2024 13:23-0400 Body weight 94.37 kg [facility] 02-23-2024 13:23-0400 Diastolic blood pressure 78 mm[Hg] [facility] 02-23-2024 13:23-0400 Heart rate 75 /min [facility] 02-23-2024 13:23-0400 Respiratory rate 18 /min [facility] 02-23-2024 13:23-0400 SaO2% (BldA) [Mass fraction] 97 % [facility] 02-23-2024 13:23-0400 Systolic blood pressure 170 mm[Hg] [facility] 12-13-2023 13:03-0400 Body height 157.48 cm [facility] 12-13-2023 13:03-0400 Body mass index (BMI) [Ratio] 37.1 kg/m2 [facility] 12-13-2023 13:03-0400 Body weight 92.07 kg [facility] 12-13-2023 13:03-0400 Diastolic blood pressure 86 mm[Hg] [facility] 12-13-2023 13:03-0400 Heart rate 78 /min [facility] 12-13-2023 13:03-0400 Respiratory rate 18 /min [facility] 12-13-2023 13:03-0400 SaO2% (BldA) [Mass fraction] 96 % [facility] 12-13-2023 13:03-0400 Systolic blood pressure 153 mm[Hg] [facility] 12-05-2023 11:24-0400 Body height 157.48 cm [facility] 12-05-2023 11:24-0400 Body mass index (BMI) [Ratio] 36.9 kg/m2 [facility] 12-05-2023 11:24-0400 Body weight 91.62 kg [facility] 12-05-2023 11:24-0400 Diastolic blood pressure 75 mm[Hg] [facility] 12-05-2023 11:24-0400 Heart rate 80 /min [facility] 12-05-2023 11:24-0400 Systolic blood pressure 133 mm[Hg] [facility] 09-29-2023 13:44-0400 Diastolic blood pressure 76 mm[Hg] [facility] 09-29-2023 13:44-0400 Systolic blood pressure 130 mm[Hg] [facility] 09-29-2023 13:19-0400 Body height 157.48 cm [facility] 09-29-2023 13:19-0400 Body mass index (BMI) [Ratio] 38.7 kg/m2 [facility] 09-29-2023 13:19-0400 Body weight 95.9 kg [facility] 09-29-2023 13:19-0400 Heart rate 89 /min [facility] 09-29-2023 13:19-0400 Respiratory rate 18 /min [facility] 09-29-2023 13:19-0400 SaO2% (BldA) [Mass fraction] 98 % [facility] 09-06-2023 11:08-0400 Body height 157.48 cm [facility] 09-06-2023 11:08-0400 Body mass index (BMI) [Ratio] 37.6 kg/m2 [facility] 09-06-2023 11:08-0400 Body weight 93.44 kg [facility] 09-06-2023 11:08-0400 Diastolic blood pressure 72 mm[Hg] [facility] 09-06-2023 11:08-0400 Heart rate 89 /min [facility] 09-06-2023 11:08-0400 Systolic blood pressure 127 mm[Hg] [facility] 08-24-2023 15:08-0400 Body height 157.48 cm [facility] 08-24-2023 15:08-0400 Body mass index (BMI) [Ratio] 37.5 kg/m2 [facility] 08-24-2023 15:08-0400 Body weight 93.21 kg [facility] 08-19-2023 10:43-0400 Body height 157.48 cm MD Shayy Dela Cruz Work Phone: [facility] 08-19-2023 10:43-0400 Body mass index (BMI) [Ratio] 37.5 kg/m2 MD Shayy Dela Cruz Work Phone: [facility] 08-19-2023 10:43-0400 Body weight 93.09 kg MD Shayy Dela Cruz Work Phone: [facility] 08-19-2023 10:43-0400 Diastolic blood pressure 79 mm[Hg] MD Shayy Dela Cruz Work Phone: [facility] 08-19-2023 10:43-0400 Heart rate 83 /min MD Shayy Dela Cruz Work Phone: [facility] 08-19-2023 10:43-0400 Systolic blood pressure 135 mm[Hg] MD Shayy Dela Cruz Work Phone: [facility] 07-28-2023 14:22-0400 Body height 157.48 cm MD Shayy Dela Cruz Work Phone: [facility] 07-28-2023 14:22-0400 Body mass index (BMI) [Ratio] 37.6 kg/m2 MD Shayy Dela Cruz Work Phone: [facility] 07-28-2023 14:22-0400 Body weight 93.44 kg MD Shayy Dela Cruz Work Phone: [facility] 07-28-2023 14:22-0400 Diastolic blood pressure 84 mm[Hg] MD Shayy Dela Cruz Work Phone: [facility] 07-28-2023 14:22-0400 Heart rate 83 /min MD Shayy Dela Cruz Work Phone: [facility] 07-28-2023 14:22-0400 Respiratory rate 18 /min MD Shayy Dela Cruz Work Phone: [facility] 07-28-2023 14:22-0400 SaO2% (BldA) [Mass fraction] 97 % MD Shayy Dela Cruz Work Phone: [facility] 07-28-2023 14:22-0400 Systolic blood pressure 140 mm[Hg] MD Shayy Dela Cruz Work Phone: [facility] 07-19-2023 10:57-0400 Body height 157.48 cm MD Shayy Dela Cruz Work Phone: [facility] 07-19-2023 10:57-0400 Body mass index (BMI) [Ratio] 37.1 kg/m2 MD Shayy Dela Cruz Work Phone: [facility] 07-19-2023 10:57-0400 Body weight 92.07 kg MD Shayy Dela Cruz Work Phone: [facility] 07-19-2023 10:57-0400 Diastolic blood pressure 68 mm[Hg] MD Shayy Dela Cruz Work Phone: [facility] 07-19-2023 10:57-0400 Heart rate 89 /min MD Shayy Dela Cruz Work Phone: [facility] 07-19-2023 10:57-0400 Systolic blood pressure 132 mm[Hg] MD Shayy Dela Cruz Work Phone: [facility] 05-25-2023 11:00-0500 Body height 157.48 cm Cathie Scally Other [facility] 05-25-2023 11:00-0500 Body mass index (BMI) [Ratio] 37.23 kg/m2 Cathie Scally Other [facility] Other 05-25-2023 11:00-0500 Body weight 92.35 kg Cathie Scally Other [facility] 05-25-2023 11:00-0500 Diastolic blood pressure 71 mm[Hg] Cathiesay Anguloly Other [facility] 05-25-2023 11:00-0500 Respiratory rate 18 /min Cathie Anguloly Other [facility] Other 05-25-2023 11:00-0500 SaO2% (BldA) [Mass fraction] 95 % Cathie Anguloly Other [facility] Other 05-25-2023 11:00-0500 Systolic blood pressure 139 mm[Hg] Cathie Anguloly Other [facility] 04-15-2023 11:00-0500 Body height 157.48 cm Shayy Dela Cruz Other [facility] 04-15-2023 11:00-0500 Body mass index (BMI) [Ratio] 37.49 kg/m2 Shayy Dela Cruz Other [facility] Other 04-15-2023 11:00-0500 Body weight 92.99 kg Shayy Dela Cruz Other [facility] Other 04-15-2023 11:00-0500 Body weight 92.98 kg MD Shayy Dela Cruz Work Phone: [facility] 04-15-2023 11:00-0500 Diastolic blood pressure 84 mm[Hg] Shayy Dela Cruz Other [facility] 04-15-2023 11:00-0500 Systolic blood pressure 142 mm[Hg] Shayy Dela Cruz Other [facility] 06-22-2022 13:30-0500 Body height 157.48 cm Shayy Dela Cruz Other [facility] Other 06-22-2022 13:30-0500 Body mass index (BMI) [Ratio] 36.94 kg/m2 Shayy Dela Cruz Other [facility] Other 06-22-2022 13:30-0500 Body weight 91.63 kg Shayy Dela Cruz Other [facility] Other 06-22-2022 13:30-0500 Diastolic blood pressure 74 mm[Hg] Shayy Dela Cruz Other [facility] Other 06-22-2022 13:30-0500 SaO2% (BldA) [Mass fraction] 97 % Shayy Dela Cruz Other [facility] Other 06-22-2022 13:30-0500 Systolic blood pressure 112 mm[Hg] Shayy Dela Cruz Other [facility] Other Encounters Encounter Date Encounter Type Care Provider Facility Start: 06-19-2024 End: 06-19-2024 ambulatory [facility] Start: 06-14-2024 End: 06-14-2024 Office outpatient new 30 minutes Nacho Patiño MD [facility] Comment on above: 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) Start: 06-14-2024 End: 06-14-2024 ambulatory NACHO PATIÑO [facility] Start: 05-30-2024 End: 05-30-2024 ambulatory [facility] Work Phone: Start: 05-30-2024 End: 05-30-2024 Patient encounter procedure [facility] Work Phone: Start: 05-24-2024 End: 05-24-2024 ambulatory [facility] Work Phone: Start: 05-24-2024 End: 05-24-2024 Patient encounter procedure [facility] Work Phone: Start: 05-16-2024 Non-patient / Non-visit [facility] Work Phone: Start: 05-07-2024 Non-patient / Non-visit [facility] Work Phone: Start: 04-19-2024 End: 04-19-2024 Patient encounter procedure [facility] Work Phone: Start: 02-28-2024 Non-patient / Non-visit [facility] Work Phone: Start: 02-23-2024 End: 02-23-2024 ambulatory Cathie Karli Sam [facility] Work Phone: Start: 02-23-2024 End: 02-23-2024 Patient encounter procedure [employer] Cathie Vargas Work Phone: [facility] Work Phone: Start: 02-23-2024 End: 02-23-2024 ambulatory [facility] Work Phone: Start: 02-23-2024 End: 02-23-2024 Patient encounter procedure [facility] Work Phone: Start: 01-17-2024 End: 01-17-2024 ambulatory [facility] Work Phone: Start: 01-17-2024 End: 01-17-2024 Patient encounter procedure [facility] Work Phone: Start: 12-13-2023 End: 12-13-2023 ambulatory [facility] Work Phone: Start: 12-13-2023 End: 12-13-2023 Patient encounter procedure [facility] Work Phone: Start: 12-05-2023 End: 12-05-2023 ambulatory [facility] Work Phone: Start: 12-05-2023 End: 12-05-2023 Patient encounter procedure [facility] Work Phone: Start: 11-07-2023 End: 11-07-2023 ambulatory [facility] Work Phone: Start: 11-07-2023 End: 11-07-2023 Patient encounter procedure [facility] Work Phone: Start: 09-29-2023 End: 09-29-2023 ambulatory [facility] Work Phone: Start: 09-29-2023 End: 09-29-2023 Patient encounter procedure [facility] Work Phone: Start: 09-06-2023 End: 09-06-2023 ambulatory [facility] Work Phone: Start: 09-06-2023 End: 09-06-2023 Patient encounter procedure [facility] Work Phone: Start: 08-24-2023 End: 08-24-2023 ambulatory [facility] Work Phone: Start: 08-24-2023 End: 08-24-2023 Patient encounter procedure [facility] Work Phone: Start: 08-19-2023 End: 08-19-2023 ambulatory MD Shayy Dela Cruz Work Phone: [facility] Work Phone: Start: 08-19-2023 End: 08-19-2023 Patient encounter procedure MD Shayy Dela Cruz Work Phone: [facility] Work Phone: Start: 07-28-2023 End: 07-28-2023 ambulatory MD Shayy Dela Cruz Work Phone: [facility] Work Phone: Start: 07-28-2023 End: 07-28-2023 Patient encounter procedure MD Shayy Dela Cruz Work Phone: [facility] Work Phone: Start: 07-19-2023 End: 07-19-2023 ambulatory MD Shayy Dela Cruz Work Phone: [facility] Work Phone: Start: 07-19-2023 End: 07-19-2023 Patient encounter procedure MD Shayy Dela Cruz Work Phone: [facility] Work Phone: Start: 07-12-2023 Non-patient / Non-visit MD Shayy Dela Cruz Work Phone: [facility] Work Phone: Start: 06-14-2023 End: 06-14-2023 Patient encounter procedure MD Shayy Dela Cruz Work Phone: [facility] Work Phone: Start: 06-14-2023 End: 06-14-2023 ambulatory MD Shayy Dela Cruz Work Phone: [facility] Work Phone: Start: 06-06-2023 End: 06-06-2023 ambulatory Shayy Dela Cruz Other [facility] Other Start: 06-06-2023 Telephone encounter Shayy Dela Cruz [facility] Start: 05-25-2023 FQ visit new patient Cathie love [facility] Start: 05-25-2023 End: 05-25-2023 ambulatory MD Shayy Dela Cruz Work Phone: [place] [facility] Other Start: 05-25-2023 End: 05-25-2023 Discharged Recurring MD Shayy Dela Cruz Work Phone: [facility] Work Phone: Start: 05-25-2023 Registered Recurring MD Shayy Dela Cruz [facility] Work [facility]: Start: 05-25-2023 End: 05-25-2023 Patient encounter procedure MD Shayy Dela Cruz Work Phone: [facility]- Start: 05-12-2023 End: 05-12-2023 ambulatory Shayy Dela Cruz Other [facility] Other Start: 05-12-2023 Telephone encounter Shayy Dela Cruz [facility] Start: 05-10-2023 End: 05-10-2023 ambulatory Shayy Dela Cruz Other [facility] Other Start: 05-10-2023 Telephone encounter Shayy Dela Cruz [facility] Start: 04-22-2023 End: 04-22-2023 ambulatory Shayy Dela Cruz Other [facility] Other Start: 04-22-2023 Telephone encounter Shayy Dela Cruz [facility] Start: 04-20-2023 End: 04-20-2023 ambulatory Lynne Austint Other [facility] Other Start: 04-20-2023 Telephone encounter Lynne Austint [facility] Start: 04-18-2023 End: 04-18-2023 ambulatory Lynne Austint Other [facility] Other Start: 04-18-2023 Telephone encounter Lynne Austint [facility] Start: 04-15-2023 End: 04-15-2023 ambulatory Shayy Dela Cruz Other [facility] Other Start: 04-15-2023 Office outpatient visit 15 minutes Shayy Dela Cruz [facility] Start: 04-15-2023 End: 04-15-2023 Patient encounter procedure MD Shayy Dela Cruz Work Phone: [facility] Work Phone: Start: 04-06-2023 End: 04-06-2023 ambulatory Shayy Dela Cruz Other [facility] Other Start: 04-06-2023 Telephone encounter Shayy Dela Cruz [facility] Start: 02-25-2023 End: 02-25-2023 ambulatory Shayy Dela Cruz Other [facility] Other Start: 02-25-2023 Telephone encounter Shayy Dela Cruz [facility] Start: 10-29-2022 End: 10-29-2022 ambulatory Shayy Dela Cruz Other [facility] Other Start: 10-29-2022 Telephone encounter Shayy Dela Cruz [facility] Start: 08-27-2022 End: 08-28-[address] SHAYY DELA CRUZ Facility:[facility] Start: 07-20-2022 End: 07-21-[address] SHAYY DELA CRUZ Facility:[facility] Start: 07-19-2022 End: 07-19-2022 ambulatory Shayy Dela Cruz Other [facility] Other Start: 07-19-2022 Telephone encounter Shayy Dela Cruz [facility] Start: 07-12-2022 End: 07-13-[address] SHAYY DELA CRUZ Facility:[facility] Start: 07-05-2022 End: 07-05-2022 ambulatory Shayy Dela Cruz Other [facility] Other Start: 07-05-2022 Telephone encounter Shayy Dela Cruz [facility] Start: 06-28-2022 End: 06-28-2022 ambulatory Shayy Dela Cruz Other [facility] Other Start: 06-28-2022 Telephone encounter Shayy Dela Cruz [facility] Start: 06-22-2022 End: 06-22-2022 ambulatory Shayy Dela Cruz Other [facility] Other Start: 06-22-2022 Office outpatient visit 15 minutes Shayy Dela Cruz [facility] Start: 05-27-2022 End: 05-27-2022 ambulatory Shayy Dela Cruz Other [facility] Other Start: 05-27-2022 Telephone encounter Shayy Dela Cruz [facility] Start: 05-19-2022 End: 05-20-[address] [...] PHYSICIAN Facility:[facility] Plan of Treatment Date Care Activity Detail Author Start: 01-01-2024 Influenza vaccination Influenza Vaccine [facility] Start: 01-15-2022 Administration of varicella zoster vaccine Zoster (Shingles) Vaccine (1 of 2) [facility] Start: 01-15-1993 Screening for malignant neoplasm of cervix Pap Smear [facility] Start: 01-15-1991 DTaP,Tdap and Td Vaccines (1 - Tdap) DTaP,Tdap and Td Vaccines (1 - Tdap) [facility] Start: 01-15-1990 Adult BMI Screening Adult BMI Screening [facility] Start: 1984 Depression Screening Depression Screening [facility] Start: 1984 Tobacco Screening Tobacco Screening [facility] Comprehensive metabo lic 2000 panel - Serum or Plasma [facility] MG Breast - bilatera l Screening [facility] Immunizations Immunization Date Immunization Notes Care Provider Fa cility 02-01-2022 influenza virus vaccine, split virus (incl. purified surface antigen) Shayy Dela Cruz Other [facility] Other 02-01-2022 influenza virus vaccine, unspecified formulation MD Shayy Dela Cruz Work Phone: [facility] Payers Date Payer Category Payer Medicare HMO [employer] [id number] 2023 Medicare [id number] 2023 Self-pay 2017 Medicaid [place] [id number] 2017 Unknown [id number] 1972 Unknown [id number] 1972 Unknown [id number] 1972 Unknown [id number] 1972 Unknown [id number] 1972 Unknown [id number] 1972 Unknown [id number] 1972 Unknown [id number] 1972 Unknown [id number] 1972 Unknown [id number] 1972 Unknown [id number] 1957 Medicaid [id number] 1959 Medicare [id number] Unknown Unknown [id number] Unknown [id number] Social History Date Type Detail Facility Unknown if ever smoked [facility] Other Start: 06-14-2024 Sex Assigned At [facility] Other Start: 1970 Sex Assigned At Female [facility] Start: 07-19-2023 End: 06-14-2024 Tobacco smoking status NHIS Never smoked tobacco (finding) [facility] Start: 05-24-2024 End: 06-13-2024 Sex Female (finding) [facility] Start: 06-14-2024 Tobacco use and exposure Smokeless tobacco non-user [facility] Start: 06-14-2024 Alcoholic beverage intake Lifetime non-drinker (finding) [facility] Start: 06-14-2024 History of Social function [facility] Within the past 12 months we worried whether our food would run out before we got money to buy more. Never True [employer] Start: 1970 Sex assigned at Not on file [facility] NEGATED: Highlighted row [facility] Medical Equipment Procedure Code Equipment Code [...] scheduled for 06/21/[address] Bruce at [facility]. She had EKG, CXR, and labs today. [...] scheduled for 06/21/[address] Bruce at [facility]. She had EKG, CXR, and labs today. [...] Active Problem List Diagnosis Coronary arteriosclerosis in kaibab artery Old myocardial infarction Sinusitis Type 1 [...] is normal sized. (more content not included)... [facility] 06-14-2024 Evaluation + Plan note Associated Problem(s): [...] amputation by podiatry and risk factors modification. [facility] 06-14-2024 Miscellaneous Notes Associated Problem(s): Gangrene of [...] risk factors modification. documented in this encounter [facility] 06-14-2024 History of Presen t illness Narrative [...] Past Medical History: Diagnosis Date Diabetes mellitus ([facility]) Past Surgical History: No past surgical history [...] Interpersonal Safety: Unknown (06/23/2023) Received from [facility] Safety & Environment Fear of Current or [...] List Gangrene of toe of left foot ([facility]) - Primary Current Assessment & Plan Osteomyelitis [...] visit: Gangrene of toe of left foot ([facility]) Nacho Patiño MD, SELMA, RPVI, FSVS, FACS [facility] This note was created with the assistance of a speech recognition program. While intending to generate a timely document that accurately reflects the content of the visit, no guarantee can be provided that every grammatical or spelling mistake has been or will be identified or corrected. Thank you for your understanding. documented in this encounter [facility] 04-19-2024 Evaluation note Diagnosis Onset Date Resolution Type 2 diabetes mellitus acute April 19, 2 024 2:03pm [facility] Work Phone: 1(423) 278-544412-19-2024 Evaluation note* Diagnosis Onset Date Resolution Status Admit Date Type 2 diabetes mellitus acute April 19, 2024 2:03pm Type 2 diabetes mellitus acute May 24, 2024 12:54pm [facility] Work Phone: [phone]) 375-863502-05-2024 Evaluation note* Encounter Date Diagnosis Assessment Notes Treatment Notes Treatment Clinical Notes Jun, Controlled type 2 diabetes mellitus with hyperglycemia, unspecified whether fdc insulin use (ICD-10 - E11.65) [facility] Other 01-24-2024 Evaluation note* Encounter Date Diagnosis [...] issues. 6. Prescriptions: New patient 05-25-2023 uses [facility]. 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 She was taught how to use the [...] educating the patient by Nguyễn Norwood RN, [facility]. [facility] Other 12-15-2023 Evaluation note* Encounter Date Diagnosis Assessment Notes Treatment Notes Treatment Clinical Notes Apr, Type 2 diabetes mellitus with hyperglycemia (ICD-10 - E11.65) Rx handwritten for diabetic shoes. Pt agrees to referral to specialty clinic. Continue present meds and discussed healthy diet in meantime. 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 She declines and will continue meds, followup in 3 months, and recheck labs at that time. She is eating more of a keto diet and is certain that is helping her A1C improve. Jun, Screening mammogram for breast cancer (ICD-10 - Z12.31) Zoila will call for an appt [facility] Other 12-15-2022 NotePROCEDURE: XR FOOT LT MIN [...] by: NARINDER LAN Date: 2022-04-15 06:08[facility]09-12-2022 NotePROCEDURE: XR TOES RT MIN 2 V HISTORY: Pain of toe of right foot ; first toe pain following injury COMPARISON: None. FINDINGS: BONES:No fracture, acute abnormality, or significant arthropathy. SOFT TISSUES:No visible soft tissue swelling. EFFUSION:None visible. OTHER: Negative. IMPRESSION: 1. No acute bone abnormality. 2. Mild degenerative joint disease. Electronically authenticated by: NARINDER LAN Date: 2022-01-11 18:48[facility]Chief [facility]+Reason for visit Narrative* Chief Complaint 3 Month Follow Up Referral Dr. Negro LAGUERRE download [facility] Work Phone: chief complaint+Reason for visit Narrative* Chief Complaint 3 Month Follow Up Referral Dr. Negro LAGUERRE download Reason for Visit Type 2 diabetes holli [facility] Work Phone: chief complaint+Reason for visit [...] [facility] [place] Work Phone: Evaluation noteNo InformationNort [employer] Other Evaluation noteNo assessment information available [facility] Work Phone: Evaluation note* Diagnosis Onset Date Resolution Status Type 2 diabetes mellitus acu [facility] Work Phone: Evaluation note* Diagnosis Onset Date Resolution Status Type 2 diabetes mellitus acu te Right wrist fracture acute Type 2 diabetes mellitus acu te [facility] Work Phone: evaluation note* Diagnosis Onset Date [...] disease acute [facility] Work Phone: evaluation note* Diagnosis Onset Date [...] acu te [facility] Work Phone: evalusbddt note* Diagnosis Onset Date Resolution Status Right [...] acu te [facility] Work Phone: evaluation note* Diagnosis Onset Date [...] acu te [facility] Work Phone: evaluation note* Diagnosis Onset Date [...] te Screening mammogram for breast cancer acute [facility] Work Phone: Evaluation [...] mellitus acu te Vitamin D deficiency acute [facility] Work Phone: evaluation note* Diagnosis Onset Date [...] acu te [facility] Work Phone: evaluation note* Diagnosis Onset Date [...] mellitus acu te Vitamin D deficiency acute [facility] Work Phone: evaluation note* Diagnosis Gangrene of toe of left foot ([facility])- Primary [facility] - [facility]* Type Description Date Medical History Herpes labialis Medical History Candidiasis of mouth Medical History Type 2 diabetes holli itus with diabetic polyneuropathy, unspecified whether termite renewal inspector insulin use Medical History Controlled type 2 di abetes mellitus with hyperglycemia, unspecified whether termite renewal inspector insulin use Medical History Obesity Medical History Dyslipidemia Medical History CAD in kaibab artery Medical History Asthma, intermittent Medical History [...] History appendectomy Surgical History 7 stents 1999 [facility] Other History general Narrative - Reported* Type Description Date Medical History Herpes labialis Medical History Candidiasis of mouth Medical History Type 2 diabetes holli itus with diabetic polyneuropathy, unspecified whether fdc insulin use Medical History Controlled type 2 di abetes mellitus with hyperglycemia, unspecified whether termite renewal inspector insulin use Medical History Obesity Medical History Dyslipidemia Medical History CAD in kaibab artery Medical History Asthma, intermittent Medical History [...] stents 1999 Hospitalization History see surgical history [facility] Other [facility] general Narrative - Reported* Type Description Date Medical History Herpes labialis Medical History Candidiasis of mouth Medical History Type 2 diabetes holli itus with diabetic polyneuropathy, unspecified whether 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 renewal inspector insulin use Medical History Controlled type 2 di abetes mellitus with hyperglycemia, unspecified whether fdc insulin use Medical History Obesity Medical History Dyslipidemia Medical History CAD in kaibab artery Medical History Asthma, intermittent Medical History [...] coronary 1999 Hospitalization History see surgical history [facility] Other InstructionsNot on filedocumented in this encounter [facility] [employer] Summary Purpose Family History No Family [...] Name Jose De Jesus Referring Provider Specialty [facility] Referred Organization [facility] Referred Provider Marcia Mendes Referred Address [address] [place] [address],[facility],[place], [place],[address] Referred Provider Specialty Nurse Huey saldaña Referral [...] and content) DATE CREATED AUTHOR 10/25/2017 [facility] DATE CREATED AUTHOR AUTHOR'S ORGANIZ ATION 09/03/2022 [facility] DATE CREATED AUTHOR AUTHOR'S ORGANIZ ATION 02/25/2024 [facility] DATE CREATED AUTHOR AUTHOR'S ORGANIZ ATION 06/16/2024 [facility] DATE CREATED AUTHOR AUTHOR'S ORGANIZ ATION 06/23/2024 [facility] REASON FOR VISIT (unrecogniz ed section and [...] End: September 29, 2023 Cathie Vargas , CONVEYOR FEEDER OFFBEARER Attending Provider Active Start: September 29, 2023 End: September 29, 2023 Team Status: Inactive Member Role Status Susan Dela Cruz MD Primary Care Provider Active Start: November 07, 2023 End: November 07, 2023 Curtis Norwood RN Attending Provider Active St art: November 07, 2023 End: November 07, 2023 Cathie Vargas , CONVEYOR FEEDER OFFBEARER Active Star t: November 07, 2023 End: [...] End: July 28, 2023 Cathie Vargas , CONVEYOR FEEDER OFFBEARER Attending Provider Active Start: July 28, 2023 End: July 28, 2023 Team Status: Inactive Member Role Status Susan Dela Cruz MD Attending Provider Active St art: April 15, 2023 End: April 15, 2023 Team Status: Inactive Member Role Status Dates Cathie Vargas , CONVEYOR FEEDER OFFBEARER Attending Provider Active Start: May 25, 2023 [...] End: June 14, 2023 Cathie Vargas , CONVEYOR FEEDER OFFBEARER Active Star t: June 14, 2023 End: [...] BE BASED ON THE PRIMARY CLINICAL RECORDS. [employer] provides no warranty or guarantee of the accuracy or completeness of information in this document.
== END 2024-06-26 11:00 | disposition home or self-care (01) ==
LOC: WC 11:00
PROVIDERS: PCP Family Medicine; Visit Provider Physician Assistant
DX: Z01.818 Encounter for other preprocedural examination (principal); R94.31 Abnormal electrocardiogram [ECG] [EKG]; E11.621 Type 2 diabetes mellitus with foot ulcer; L97.521 Non-pressure chronic ulcer of other part of left foot limited to breakdown of skin
CPT/HCPCS: 93308; G0463; Q9950

== ENCOUNTER 2024-07-03 15:53 | Outpatient (OUT) | payer MEDICARE, MEDICAID, SELFPAY | END 2024-07-03 15:54 | disposition home or self-care (01) | LOC: WC 15:53 | PROVIDERS: PCP Family Medicine; Visit Provider Physician Assistant | DX: E11.621 Type 2 diabetes mellitus with foot ulcer (principal); L97.521 Non-pressure chronic ulcer of other part of left foot limited to breakdown of skin | CPT/HCPCS: G0463 ==

== ENCOUNTER 2024-07-05 06:36 | Day surgery (SDC) | payer MEDICARE, MEDICAID, SELFPAY ==
[2024-06-19 13:51] VITALS: BP 142/76; PULSE 86; TEMP 36.2; O2SAT 94; BMI 38.7
--- OUTSIDE RECORDS SUMMARY | 2024-07-05 06:40 | XMS_ITS | CCD ---
Author Organization [facility] Care Team Providers Care Prosthetic Aide Name Role Phone PHYSICIAN, DEFAULT Unavailable Unavailable [...] Shayy Dela Cruz Primary Care Provider [phone] MD Shayy Dela Cruz Attending Provider MD Shayy Dela Cruz Primary Care Provider [phone] MD Shayy Dela Cruz Attending Provider Sam, MASTER CONTROL TECHNICIAN Cathie C Attending Provider Scally, Cathie C [...] (1 source) codeine Drug Allergy 9 [facility] Repository (20 sources) Latex; Translations: [LATEX] Drug allergy (disorder) 9 sores on skin [facility] Repository (20 sources) Codeine; Translations: [CODEINE] Drug Allergy 0 nausea [facility] (19 sources) Latex Drug allergy 5 sores on skin [employer] Other (1 source) Codeine Drug Allergy [facility] Repository (8 sources) cat dander Allergy to substance 4 Sneezing, Itching [facility] (8 sources) dog dander Allergy to substance 4 Sneezing, Itching [facility] (8 sources) ozempic Propensity to adverse reactions 4 Vomiting [facility] (1 source) Codeine Drug Allergy 4 [facility] Repository (1 source) Latex Drug allergy (disorder) 4 [facility] Repository (3 sources) Insulin Lispro; Translations: [INSULIN LISPRO] Drug Allergy 5 Rash [facility] (3 sources) tomato allergenic extract; Translations: [TOMATO] Drug Allergy 5 [facility] Medications Current Medications Medication Drug Class(es) Dates [...] May, Active Blood-Glucose Meter,Continuo us (Dexcom G7 Car Wash Attendant Automatic) misc (6 sources) Start: 12-13-2023 Blood-Glucose Meter,Continuous (Dexcom G7 Car Wash Attendant Automatic) misc Active 0 .Route December 12, 2023 11:00pm As directed Start: 12-13-2023 Blood-Glucose Meter,Continuous (Dexcom G7 Car Wash Attendant Automatic) misc Active 0 .Route December 13, 2023 12:00am As directed Start: 12-13-2023 Blood-Glucose Meter,Continuous (Dexcom G7 Car Wash Attendant Automatic) misc Active 0 .ROUTE December 13, 2023 [...] Orally Once a day Active Dexcom G7 Car Wash Attendant Automatic - (4 sources) Start: 06-03-19 24 Dexcom G7 Car Wash Attendant Automatic - as directed as directed 4 x [...] Start: 02-06-2024 take 1 capsule by mo [facility] once daily Esomeprazole Magnesium Active 0 .ROUTE [...] Jesus Lucas ( ) FreeStyle Amrik 3 [place] - (3 sources) Start: 06-06-2023 FreeStyle Libr e 3 [place] - as directed invitro 4 times daily [...] Drug Class(es) Dates Sig (Normalized) Sig (Original) [id number] 200 actuat albuterol 0.09 mg/actuat metered dose [...] Jun, Not-Taking/PRN Blood-Glucose Meter,Continuous (Freestyle Amrik 3 [place]) misc (13 sources) Start: 07-28-2023 End: 12-13-2023 Blood-Glucose Meter,Continuous (Freestyle Amrik 3 [place]) misc Discontinued EACH .ROUTE .MEDSUPPLY July 27, 2023 11:00pm December 13, 2023 12:09pm As directed Start: 07-28-2023 End: 12-13-2023 Blood-Glucose Meter,Continuo us (Freestyle Amrik 3 [place]) misc Discontinued EACH .ROUTE .MEDSUPPLY July 28, 2023 12:00am December 13, 2023 1:09pm As directed Start: 07-28-2023 Blood-Glucose Meter,Continuous (Freestyle Amrik 3 [place]) misc Active EACH .ROUTE .MEDSUPPLY July 28, [...] angina pectoris; Translations: [Atherosclerotic heart disease of [place] coronary artery without angina pectoris] Onset: 07-12-2022 [...] Onset: 11-09-2021 Chronic Other aftercare (17 sources) skilled nursing (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 of insulin; Translations: [Long-term (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 of insulin] Onset: 04-08-2022 Episodic Other aftercare (20 sources) Long-term current use of insulin; Translations: [skilled nursing (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 of insulin] 07-28-2023 Episodic Other [...] Onset: 04-08-2022 Episodic Other aftercare (1 source) oysterman (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; Translations: [PENITENTIARY CURRENT USE OF ASPIRIN] Onset: 04-08-2022 Episodic Other aftercare (1 source) skilled nursing (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 of oral hypoglycemic drugs; Translations: [REGULATORY COORDINATOR USE ORAL HYPOGLYCEMIC DX] Onset: 04-08-2022 Episodic Other aftercare (1 source) Other 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 helper termite (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 therapy; Translations: [OTH REGULATORY COORDINATOR CURRENT DRUG THERAPY] Onset: 11-09-2021 Episodic Other [...] Test Name Value Interpretation Reference Range Facility Orders Onlyon 06-25-2024 Orders Only [id number] Zoila Ramos 1970 F Date Provider Department Center 06/25/2024 JESSICA MAX [facility] No family history on file [facility] Office Visiton 06-19-2024 Follow-up visit [id number] Zoila Ramos 1970 F Date Provider Department Center 06/19/2024 MARQUES MCINTYRE [facility] No family history on file Level of Service:08155 [place] OFFICE/OUTPATIENT ESTABLISHED MOD MDM 30 MIN Normal [facility] Basophils Auto (Bld) [#/Vol] on 05-16-2024 Basophils (Bld) [#/Vol] Automated basophil count 0.0-0.1 [facility] Basophils/100 WBC Auto (Bld) on 05-16-2024 Basophils/100 WBC (Bld) Automated basophil % 0.2-2.0 [facility] Eosinophils/100 WBC Auto (Bl d)on 05-16-2024 Eosinophils/100 WBC (Bld) Automated eosinophil % 0.9-7.0 [facility] Erythrocyte distribution wid th Auto (RBC) [Ratio]on 05-16-2024 Erythrocyte distribution width (RBC) [Ratio] Erythrocyte distribution width [Ratio] by Automated count 11.0-15.0 [facility] Estimated glomerular filtrat ion rate (GFR) non- Americanon 05-16-2024 GFR/1.73 sq M.predicted among non-blacks MDRD (S/P/Bld) [Vol rate/Area] Estimated glomerular filtration rate (GFR) non- Low >=60 mL/min/1.73m 2 [facility] Hematocrit Auto (Bld) [Volum e fraction]on 05-16-2024 Hematocrit (Bld) [Volume fraction] Hematocrit [Volume Fraction] of Blood by Automated count 36.0-48.0 [facility] Hemoglobin [Mass/volume] in Bloodon 05-16-2024 Hemoglobin (Bld) [Mass/Vol] Hemoglobin [Mass/volume] in Blood 12.0-16.0 [facility] Laboratory - Chemistry and C hemistry - challengeon 05-16-2024 Calcium [Mass/Vol] 9.1 mg/dL 8.5-10.1 [facility] Chloride [Moles/Vol] 104 mmol/L 98-107 [facility] CO2 [Moles/Vol] 30.6 mmol/L 21.0-32.0 [facility] Creatinine [Mass/Vol] 1.01 mg/dL 0.55-1.02 [facility] GFR/1.73 sq M.predicted MDRD (S/P/Bld) [Vol rate/Area] mL/min/{1.73_m2} >=60 mL/min/1.73m 2 [facility] Glucose [Mass/Vol] 206 mg/dL High 74-106 [facility] Potassium [Moles/Vol] 5.1 mmol/L 3.5-5.1 [facility] Sodium [Moles/Vol] 141 mmol/L 136-145 [facility] Urea nitrogen [Mass/Vol] 12.0 mg/dL 7.0-18.0 [facility] Urea nitrogen/Creatinine [Mass ratio] 11.9 mg/mg [facility] Laboratory - Hematology and Cell countson 05-16-2024 ESR (Bld) [Velocity] 28 mm/h <=30 [facility] Immature granulocytes/100 WBC (Bld) 0.3 % 0.0-0.5 [facility] Leukocytes [#/volume] correc alma delia for nucleated erythrocytes in Blood by Automated counon 05-16-2024 WBC corrected for nucl RBC Auto (Bld) [#/Vol] Leukocytes [#/volume] corrected for nucleated erythrocytes in Blood by Automated coun 4.0-11.0 [facility] Lymphocytes Auto (Bld) [#/Vo l]on 05-16-2024 Lymphocytes (Bld) [#/Vol] Lymphocytes [#/volume] in Blood by Automated count 1.2-3.8 [facility] Lymphocytes/100 WBC Auto (Bl d)on 05-16-2024 Lymphocytes/100 WBC (Bld) Lymphocytes/100 leukocytes in Blood by Automated count 20.5-60.0 [facility] MCH Auto (RBC) [Entitic mass ]on 05-16-2024 MCH (RBC) [Entitic mass] MCH [Entitic mass] by Automated count 26.7-34.0 [facility] MCHC Auto (RBC) [Mass/Vol]on 05-16-2024 MCHC (RBC) [Mass/Vol] MCHC [Mass/volume] by Automated count 29.9-35.2 [facility] MCV Auto (RBC) [Entitic vol] on 05-16-2024 MCV (RBC) [Entitic vol] MCV [Entitic volume] by Automated count 81.0-99.0 [facility] Monocytes Auto (Bld) [#/Vol] on 05-16-2024 Monocytes (Bld) [#/Vol] Automated blood monocyte count 0.3-0.8 [facility] Monocytes/100 WBC Auto (Bld) on 05-16-2024 Monocytes/100 WBC (Bld) Automated monocyte % 1.7-12.0 [facility] Neutrophils Auto (Bld) [#/Vo l]on 05-16-2024 Neutrophils (Bld) [#/Vol] Neutrophils [#/volume] in Blood by Automated count 1.4-6.5 [facility] Neutrophils/100 WBC Auto (Bl d)on 05-16-2024 Neutrophils/100 WBC (Bld) Automated neutrophil % 43.0-75.0 [facility] No Panel Informationon 05-16 C-Reactive Protein, Quantitative 1.26 mg/dL High <=0.50 [facility] Eosinophils # (Auto) 0.3 10 3/uL 0.0-0.7 [facility] Immature Granulocyte # (Auto) 0.02 10 3/uL 0.00-0.03 [facility] Platelet mean volume Auto (B ld) [Entitic vol]on 05-16-2024 Platelet mean volume (Bld) [Entitic vol] Platelet mean volume [Entitic volume] in Blood by Automated count 9.5-13.5 [facility] Platelets Auto (Bld) [#/Vol] on 05-16-2024 Platelets (Bld) [#/Vol] Platelets [#/volume] in Blood by Automated count 150-450 [facility] RBC Auto (Bld) [#/Vol]on RBC (Bld) [#/Vol] Erythrocytes [#/volume] in Blood by Automated count 4.20-5.40 [facility] Serum or plasma anion gap de terminationon 05-16-2024 Anion gap [Moles/Vol] Serum or plasma anion gap determination [facility] Creatinine [Mass/volume] in UrineOrdered By: Cathie Vargas on 02-23-2024 Creatinine (U) [Mass/Vol] 28.00 mg/dL [facility] Comment on above: No reference range e stablished MicroAlb Creat Ratio,Uon Creatinine, Urine (Random) 28.00 mg/dL Normal [facility] Comment on above: Result Comment: No r eference range established Performed By: #### U RMACRERAT #### [facility] [address] Microalbumin/Creatin ine Ratio Not performed Normal 0.0-30.0 [facility] Comment on above: Result Comment: PERF ORMED BY: [place] [address] PATHOLOGIST SALVAGE REPAIRER RUBINA RICCI M.D. Performed By: #### U RMACRERAT #### [facility] [address] [place] [address] Microalbumin [Mass/volume] i n UrineOrdered By: Cathie Vargas on 02-23-2024 Albumin DL <= 20 mg/L (U) [Mass/Vol] mg/dL Normal 0.0-1.8 [facility] Comment on above: Performed By: #### U RMACRERAT #### [facility] [address] [place] [address] Urine microalbumin/creatinin e mass ratioOrdered By: Cathie Vargas on 02-23-2024 Albumin/Creatinine DL <= 20 mg/L (U) [Mass ratio] TNP [facility] Comment on above: Test not performed HbA1c HPLC (Bld) [Mass fract ion]on 12-13-2023 HbA1c (Bld) [Mass fraction] 9.9 % [facility] No Panel Informationon 12-12 Bedside Glucose 118 [facility] No Panel Informationon 09-28 Bedside Glucose 278 [facility] HbA1c HPLC (Bld) [Mass fract ion]on 07-28-2023 HbA1c (Bld) [Mass fraction] 10.3 % [facility] No Panel Informationon 07-27 Bedside Glucose 126 [facility] Basophils Auto (Bld) [#/Vol] on 07-12-2023 Basophils (Bld) [#/Vol] 0.0 10 3/uL 0.0-0.1 [facility] Basophils/100 WBC Auto (Bld) on 07-12-2023 Basophils/100 WBC (Bld) 0.5 % 0.2-2.0 [facility] Eosinophils/100 WBC Auto (Bl d)on 07-12-2023 Eosinophils/100 WBC (Bld) 1.5 % 0.9-7.0 [facility] Erythrocyte distribution wid th Auto (RBC) [Ratio]on 07-12-2023 Erythrocyte distribution width (RBC) [Ratio] 12.7 % 11.0-15.0 [facility] Estimated glomerular filtrat ion rate (GFR) non- Americanon 07-12-2023 GFR/1.73 sq M.predicted among non-blacks MDRD (S/P/Bld) [Vol rate/Area] mL/min/{1.73_m2} >=60 [facility] Hematocrit Auto (Bld) [Volum e fraction]on 07-12-2023 Hematocrit (Bld) [Volume fraction] 42.8 % 36.0-48.0 [facility] Hemoglobin [Mass/volume] in Bloodon 07-12-2023 Hemoglobin (Bld) [Mass/Vol] 14.3 g/dL 12.0-16.0 [facility] Laboratory - Chemistry and C hemistry - challengeon 07-12-2023 Calcium [Mass/Vol] 9.1 mg/dL 8.5-10.1 [facility] Chloride [Moles/Vol] 100 mmol/L 98-107 [facility] CO2 [Moles/Vol] 26.1 mmol/L 21.0-32.0 [facility] Creatinine [Mass/Vol] 0.78 mg/dL 0.55-1.02 [facility] GFR/1.73 sq M.predicted MDRD (S/P/Bld) [Vol rate/Area] mL/min/{1.73_m2} >=60 [facility] Glucose [Mass/Vol] 215 mg/dL 74-106 [facility] Potassium [Moles/Vol] 4.0 mmol/L 3.5-5.1 [facility] Sodium [Moles/Vol] 137 mmol/L 136-145 [facility] Urea nitrogen [Mass/Vol] 12.0 mg/dL 7.0-18.0 [facility] Urea nitrogen/Creatinine [Mass ratio] 15.4 mg/mg [facility] Laboratory - Hematology and Cell countson 07-12-2023 Immature granulocytes/100 WBC (Bld) 0.1 % 0.0-0.5 [facility] Leukocytes [#/volume] correc alma delia for nucleated erythrocytes in Blood by Automated counon 07-12-2023 WBC corrected for nucl RBC Auto (Bld) [#/Vol] 7.8 10 3/uL 4.0-11.0 [facility] Lymphocytes Auto (Bld) [#/Vo l]on 07-12-2023 Lymphocytes (Bld) [#/Vol] 2.7 10 3/uL 1.2-3.8 [facility] Lymphocytes/100 WBC Auto (Bl d)on 07-12-2023 Lymphocytes/100 WBC (Bld) 34.1 % 20.5-60.0 [facility] MCH Auto (RBC) [Entitic mass ]on 07-12-2023 MCH (RBC) [Entitic mass] 29.2 pg 26.7-34.0 [facility] MCHC Auto (RBC) [Mass/Vol]on 07-12-2023 MCHC (RBC) [Mass/Vol] 33.4 g/dL 29.9-35.2 [facility] MCV Auto (RBC) [Entitic vol] on 07-12-2023 MCV (RBC) [Entitic vol] 87.5 fL 81.0-99.0 [facility] Monocytes Auto (Bld) [#/Vol] on 07-12-2023 Monocytes (Bld) [#/Vol] 0.5 10 3/uL 0.3-0.8 [facility] Monocytes/100 WBC Auto (Bld) on 07-12-2023 Monocytes/100 WBC (Bld) 6.4 % 1.7-12.0 [facility] Neutrophils Auto (Bld) [#/Vo l]on 07-12-2023 Neutrophils (Bld) [#/Vol] 4.5 10 3/uL 1.4-6.5 [facility] Neutrophils/100 WBC Auto (Bl d)on 07-12-2023 Neutrophils/100 WBC (Bld) 57.4 % 43.0-75.0 [facility] No Panel Informationon 07-11 Eosinophils # (Auto) 0.1 10 3/uL 0.0-0.7 [facility] Immature Granulocyte # (Auto) 0.01 10 3/uL 0.00-0.03 [facility] Platelet mean volume Auto (B ld) [Entitic vol]on 07-12-2023 Platelet mean volume (Bld) [Entitic vol] 10.9 fL 9.5-13.5 [facility] Platelets Auto (Bld) [#/Vol] on 07-12-2023 Platelets (Bld) [#/Vol] 259 10 3/uL 150-450 [facility] RBC Auto (Bld) [#/Vol]on RBC (Bld) [#/Vol] 4.89 10 6/uL 4.20-5.40 [facility] Serum or plasma anion gap de terminationon 07-12-2023 Anion gap [Moles/Vol] 14.9 mmol/L [facility] Glucose - FINGER STICKon Glucose [Mass/Vol] 360 mg/dL [employer] Other CBC AUTO DIFFon 08-27-2022 BASO # 0.0 103/ul Normal 0.0-0.1 [facility] Comment on above: Performed By: #### C BC #### [facility] [address] [place] [address] Dr. Sarah Church Basophils/100 WBC (Bld) 0.5 % Normal 0.2-2.0 [facility] Comment on above: Performed By: #### C BC #### [facility] [address] [place] [address] Dr. Sarah Church EO # 0.2 103/ul Normal 0.0-0.[address] [facility] Comment on above: Performed By: #### C BC #### [facility] [address] [place] [address] Dr. Sarah Church Eosinophils/100 WBC (Bld) 2.2 % Normal 0.9-7.[address] [facility] Comment on above: Performed By: #### C BC #### [facility] [address] [place] [address] Dr. Sarah Church Erythrocyte distribution width (RBC) [Ratio] 12.5 % Normal 11.0-15.0 [facility] Comment on above: Performed By: #### C BC #### [facility] [address] [place] [address] Dr. Sarah Church Hematocrit (Bld) [Volume fraction] 44.1 % Normal 36.0-48.0 [facility] Comment on above: Performed By: #### C BC #### [facility] [address] [place] [address] Dr. Sarah Church Hemoglobin (Bld) [Mass/Vol] 15.1 g/dL Normal 12.0-16.0 [facility] Comment on above: Performed By: #### C BC #### [facility] [address] [place] [address] Dr. Sarah Church IG # 0.02 10e3/ul Normal 0.00-0.03 [facility] Comment on above: Performed By: #### C BC #### [facility] [address] [place] [address] Dr. Sarah Church IG % 0.2 % Normal 0.0-0.5 [facility] Comment on above: Performed By: #### C BC #### [facility] [address] [place] [address] Dr. Sarah Church LYMPH # 2.9 103/ul Normal 1.2-3.8 [facility] Comment on above: Performed By: #### C BC #### [facility] [address] [place] [address] Dr. Sarah Church Lymphocytes/100 WBC (Bld) 33.4 % Normal 20.5-60.0 [facility] Comment on above: Performed By: #### C BC #### [facility] [address] [place] [address] Dr. Sarah Church MANUAL DIFF REQ NO Normal [facility] Comment on above: Performed By: #### C BC #### [facility] [address] [place] [address] Dr. Sarah Church MCH (RBC) [Entitic mass] 29.1 pg Normal 26.7-34.0 [facility] Comment on above: Performed By: #### C BC #### [facility] [address] [place] [address] Dr. Sarah Church MCHC (RBC) [Mass/Vol] 34.2 g/dL Normal 29.9-35.2 [facility] Comment on above: Performed By: #### C BC #### [facility] [address] [place] [address] Dr. Sarah Church MCV (RBC) [Entitic vol] 85.0 fL Normal 81.0-99.0 [facility] Comment on above: Performed By: #### C BC #### [facility] [address] [place] [address] Dr. Sarah Church MONO # 0.6 103/ul Normal 0.3-0.8 [facility] Comment on above: Performed By: #### C BC #### [facility] [address] [place] [address] Dr. Sarah Church Monocytes/100 WBC (Bld) 6.8 % Normal 1.7-12.0 [facility] Comment on above: Performed By: #### C BC #### [facility] [address] [place] [address] Dr. Sarah Church NEUT # 4.9 103/ul Normal 1.4-6.5 [facility] Comment on above: Performed By: #### C BC #### [facility] [address] [place] [address] Dr. Sarah Church Neutrophils/100 WBC (Bld) 56.9 % Normal 43.0-75.0 [facility] Comment on above: Performed By: #### C BC #### [facility] [address] [place] [address] Dr. Sarah Church Platelet mean volume (Bld) [Entitic vol] 10.8 fL Normal 9.5-13.[address] [facility] Comment on above: Performed By: #### C BC #### [facility] [address] [place] [address] Dr. Sarah Church PLT 276 103/ul Normal 150-[address] [facility] Comment on above: Performed By: #### C BC #### [facility] [address] [place] [address] Dr. Sarah Church RBC 5.19 106/ul Normal 4.20-5.40 [facility] Comment on above: Performed By: #### C BC #### [facility] [address] [address] [address] Sarah Church WBC 8.6 103/ul Normal 4.0-11.0 [facility] Comment on above: Performed By: #### C BC #### [facility] [address] [address] [address] Sarah Church LIPID PROFILEon 08-27-2022 CHOL-HDL RATIO NORM SEE BELOW Normal [facility] Comment on above: Result Comment: 3.3 - 4.4 LOW RISK 4.4 - 7.1 AVERAGE RISK 7.1 - 11.0 MODERATE RISK >11.0 HIGH RISK Performed By: #### L IPID, CMP #### [facility] [address] [address] [address] Sarah Church Cholesterol [Mass/Vol] 110 mg/dL Normal <=200 [facility] Comment on above: Performed By: #### L IPID, CMP #### [facility] [address] [address] [address] Sarah Church Cholesterol in HDL [Mass/Vol] 33 mg/dL Critically low 40-60 [facility] Comment on above: Performed By: #### L IPID, CMP #### [facility] [address] [address] [address] Sarah Church Cholesterol in LDL [Mass/Vol] 58.0 mg/dL Normal [facility] Comment on above: Performed By: #### L IPID, CMP #### [facility] [address] [address] [address] Sarah Church Cholesterol.total/Ch olesterol in HDL [Mass ratio] 3.3 {ratio} Normal [facility] Comment on above: Performed By: #### L IPID, CMP #### [facility] [address] [place] [address] Dr. Sarah Church HDL NORMAL > or = 60 mg/dl - LOW CARDIOVASCULAR RISK <40 mg/dl - HIGH CARDIOVASCULAR RISK Normal [facility] Comment on above: Performed By: #### L IPID, CMP #### [facility] [address] [place] [address] Dr. Sarah Church LDL CALC NORMAL SEE BELOW Normal [facility] Comment on above: Result Comment: <100 mg/dl OPTIMAL 100 - 129 mg/dl NEAR OR ABOVE OPTIMAL 130 - 159 mg/dl BORDERLINE HIGH 160 - 189 mg/dl HIGH >190 mg/dl VERY HIGH Performed By: #### L IPID, CMP #### [facility] [address] [place] [address] Dr. Sarah Church Triglyceride [Mass/Vol] 95 mg/dL Normal <=150 [facility] Comment on above: Performed By: #### L IPID, CMP #### [facility] [address] [place] [address] Dr. Sarah Church VLDL CALC 19.0 mg/dL Normal [facility] Comment on above: Performed By: #### L IPID, CMP #### [facility] [address] [place] [address] Dr. Sarah Church PROF 14(COMP METB)on 023 Albumin [Mass/Vol] 3.3 g/dL Critically low 3.4-5.0 [facility] Comment on above: Performed By: #### L IPID, CMP #### [facility] [address] [place] [address] Dr. Sarah Church Albumin/Globulin [Mass ratio] 0.8 {ratio} Normal [facility] Comment on above: Performed By: #### L IPID, CMP #### [facility] [address] [place] [address] Dr. Sarah Church ALP [Catalytic activity/Vol] 100 U/L Normal 46-116 [facility] Comment on above: Performed By: #### L IPID, CMP #### [facility] [address] [place] [address] Dr. Sarah Church ALT [Catalytic activity/Vol] 74 U/L Critically high 14-59 [facility] Comment on above: Performed By: #### L IPID, CMP #### [facility] [address] [place] [address] Dr. Sarah Church Anion gap [Moles/Vol] 13.2 mmol/L Normal [facility] Comment on above: Performed By: #### L IPID, CMP #### [facility] [address] [place] [address] Dr. Sarah Church AST [Catalytic activity/Vol] 42 U/L Critically high 15-37 [facility] Comment on above: Performed By: #### L IPID, CMP #### [facility] [address] [place] [address] Dr. Sarah Church Bilirubin [Mass/Vol] 0.4 mg/dL Normal 0.2-1.0 [facility] Comment on above: Performed By: #### L IPID, CMP #### [facility] [address] [place] [address] Dr. Sarah Church Calcium [Mass/Vol] 9.2 mg/dL Normal 8.5-10.1 [facility] Comment on above: Performed By: #### L IPID, CMP #### [facility] [address] [place] [address] Dr. Sarah Church Chloride [Moles/Vol] 99 mmol/L Normal 98-[address] [facility] Comment on above: Performed By: #### L IPID, CMP #### [facility] [address] [place] [address] Dr. Sarah Church CO2 [Moles/Vol] 30.4 mmol/L Normal 21.0-32.0 [facility] Comment on above: Performed By: #### L IPID, CMP #### [facility] [address] [place] [address] Dr. Sarah Church Creatinine [Mass/Vol] 0.78 mg/dL Normal 0.55-1.[address] [facility] Comment on above: Performed By: #### L IPID, CMP #### [facility] [address] [place] [address] Dr. Sarah Church EGFR-AF TOGOLESE >60 Normal >=60 [facility] Comment on above: Performed By: #### L IPID, CMP #### [facility] [address] [place] [address] Dr. Sarah Church EGFR-NON AF TOGOLESE >60 Normal >=60 [facility] Comment on above: Performed By: #### L IPID, CMP #### [facility] [address] [place] [address] Dr. Sarah Church Globulin (S) [Mass/Vol] 4.0 g/dL Normal [facility] Comment on above: Performed By: #### L IPID, CMP #### [facility] [address] [place] [address] Dr. Sarah Church Glucose [Mass/Vol] 255 mg/dL Critically high 74-106 [facility] Comment on above: Performed By: #### L IPID, CMP #### [facility] [address] [place] [address] Dr. Sarah Church Potassium [Moles/Vol] 3.6 mmol/L Normal 3.5-5.1 [facility] Comment on above: Performed By: #### L IPID, CMP #### [facility] [address] [place] [address] Dr. Sarah Church Protein [Mass/Vol] 7.3 g/dL Normal 6.4-8.2 [facility] Comment on above: Performed By: #### L IPID, CMP #### [facility] [address] [place] [address] Dr. Sarah Church Sodium [Moles/Vol] 139 mmol/L Normal 136-145 [facility] Comment on above: Performed By: #### L IPID, CMP #### [facility] [address] [place] [address] Dr. Sarah Church Urea nitrogen [Mass/Vol] 8.0 mg/dL Normal 7.0-18.0 [facility] Comment on above: Performed By: #### L IPID, CMP #### [facility] [address] [place] [address] Dr. Sarah Church Urea nitrogen/Creatinine [Mass ratio] 10.3 mg/mg Normal [facility] Comment on above: Performed By: #### L IPID, CMP #### [facility] [address] [place] [address] Dr. Sarah Church MG MAMM SCREEN 3D ROB CADon 07-20-2022 MG MAMM SCREEN 3D ROB CAD Patient: ZOILA RAMOS Exam Date: 07/20/2022 : 1970 Gender:F Ordering : DR SHAYY DELA CRUZ M.D. Admission #: [id number] Family : Order #: [id number] CLICK HERE TO VIEW EXAM RADIOLOGY REPORT PROCEDURE: MAMMOGRAM SCREENING 3D BILATERAL CAD COMPARISON: MAMMO RBO SCREEN W CAD DIG, 05/16/2012. INDICATIONS: Screening mammography Calculator Name NCI Breast Cancer Risk Assessment Tool 5 Year Breast Cancer Risk 1.20% Lifetime Breast Cancer Risk 10.80% Personal Breast Cancer No Personal Ovarian Cancer No Treatments None Family Cancers None LOCATION: [facility] BREAST COMPOSITION: Almost entirely fatty. FINDINGS: [...] Lan M.D. on 07/21/2022 at 08:24 Normal [facility] PROF CHEM 8 (BAS METB)on Anion gap [Moles/Vol] 14.5 mmol/L Normal [facility] Comment on above: Performed By: #### B MP #### [facility] [address] [place] [address] Dr. Sarah Church Calcium [Mass/Vol] 9.8 mg/dL Normal 8.5-10.1 [facility] Comment on above: Performed By: #### B MP #### [facility] [address] [address] [address] Sarah Church Chloride [Moles/Vol] 99 mmol/L Normal 98-107 [facility] Comment on above: Performed By: #### B MP #### [facility] [address] [address] [address] Sarah Church CO2 [Moles/Vol] 27.2 mmol/L Normal 21.0-32.0 [facility] Comment on above: Performed By: #### B MP #### [facility] [address] [address] [address] Sarah Church Creatinine [Mass/Vol] 0.80 mg/dL Normal 0.55-1.02 [facility] Comment on above: Performed By: #### B MP #### [facility] [address] [address] [address] Sarah Church EGFR-AF TOGOLESE >60 Normal >=60 [facility] Comment on above: Performed By: #### B MP #### [facility] [address] [address] [address] Sarah Church EGFR-NON AF TOGOLESE >60 Normal >=60 [facility] Comment on above: Performed By: #### B MP #### [facility] [address] [address] [address] Sarah Church Glucose [Mass/Vol] 458 mg/dL Critically high 74-106 [facility] Comment on above: Performed By: #### B MP #### [facility] [address] [address] [address] Sarah Church Potassium [Moles/Vol] 4.7 mmol/L Normal 3.5-5.1 [facility] Comment on above: Performed By: #### B MP #### [facility] [address] [address] [address] Sarah Church Sodium [Moles/Vol] 136 mmol/L Normal 136-145 [facility] Comment on above: Performed By: #### B MP #### [facility] [address] [address] [address] Sarah Church Urea nitrogen [Mass/Vol] 15.0 mg/dL Normal 7.0-18.0 [facility] Comment on above: Performed By: #### B MP #### [facility] [address] [address] [address] Sarah Church Urea nitrogen/Creatinine [Mass ratio] 18.8 mg/mg Normal [facility] Comment on above: Performed By: #### B MP #### [facility] [address] [address] [address] Sarah Church GLYCOHEMOGLOBIN A1Con 2022 ADA RECOMMENDATION SEE BELOW Normal [facility] Comment on above: Result Comment: ADA RECOMMENDED LIMIT 4.0 - 6.0 ADA THERAPEUTIC TARGET < 7.0 ACTION SUGGESTED > 7.0 Performed By: #### A 1C ####[facility] [address] [address]Dr. Sarah Church Glucose [Mass/Vol] 266 mg/dL Normal [facility] Comment on above: Performed By: #### A 1C ####[facility] [address] [address]Dr. Sarah Church HbA1c (Bld) [Mass fraction] 10.9 % Critically high 4.5-6.2 [facility] Comment on above: Performed By: #### A 1C ####[facility] [address] [address]Dr. Sarah Church XR HIP RT 2 3V [...] JAVAD ROB Date: 2022-04-06 21:15 Normal [facility] CBC AUTO DIFFon 11-05-2021 BASO # 0.1 103/ul Normal 0.0-0.[address] [facility] Comment on above: Performed By: #### C BC #### [facility] [address] [place] [address] Dr. Sarah Church Basophils/100 WBC (Bld) 0.4 % Normal 0.2-2.0 [facility] Comment on above: Performed By: #### C BC #### [facility] [address] [address] [address] Sarah Church EO # 0.2 103/ul Normal 0.0-0.7 [facility] Comment on above: Performed By: #### C BC #### [facility] [address] [place] [address] Dr. Sarah Church Eosinophils/100 WBC (Bld) 1.3 % Normal 0.9-7.0 [facility] Comment on above: Performed By: #### C BC #### [facility] [address] [place] [address] Dr. Sarah Church Erythrocyte distribution width (RBC) [Ratio] 12.3 % Normal 11.0-15.0 [facility] Comment on above: Performed By: #### C BC #### [facility] [address] [place] [address] Dr. Sarah Church Hematocrit (Bld) [Volume fraction] 43.1 % Normal 36.0-48.0 [facility] Comment on above: Performed By: #### C BC #### [facility] [address] [place] [address] Dr. Sarah Church Hemoglobin (Bld) [Mass/Vol] 14.6 g/dL Normal 12.0-16.0 [facility] Comment on above: Performed By: #### C BC #### [facility] [address] [place] [address] Dr. Sarah Church IG # 0.04 10e3/ul Critically high 0.00-0.03 [facility] Comment on above: Performed By: #### C BC #### [facility] [address] [place] [address] Dr. Sarah Church IG % 0.3 % Normal 0.0-0.5 [facility] Comment on above: Performed By: #### C BC #### [facility] [address] [place] [address] Dr. Sarah Church LYMPH # 1.6 103/ul Normal 1.2-3.8 [facility] Comment on above: Performed By: #### C BC #### [facility] [address] [place] [address] Dr. Sarah Church Lymphocytes/100 WBC (Bld) 12.5 % Critically low 20.5-60.0 [facility] Comment on above: Performed By: #### C BC #### [facility] [address] [place] [address] Dr. Sarah Church MANUAL DIFF REQ NO Normal [facility] Comment on above: Performed By: #### C BC #### [facility] [address] [place] [address] Dr. Sarah Church MCH (RBC) [Entitic mass] 29.4 pg Normal 26.7-34.0 [facility] Comment on above: Performed By: #### C BC #### [facility] [address] [place] [address] Dr. Sarah Church MCHC (RBC) [Mass/Vol] 33.9 g/dL Normal 29.9-35.2 [facility] Comment on above: Performed By: #### C BC #### [facility] [address] [place] [address] Dr. Sarah Church MCV (RBC) [Entitic vol] 86.7 fL Normal 81.0-99.0 [facility] Comment on above: Performed By: #### C BC #### [facility] [address] [place] [address] Dr. Sarah Church MONO # 1.0 103/ul Critically high 0.3-0.8 [facility] Comment on above: Performed By: #### C BC #### [facility] [address] [place] [address] Dr. Sarah Church Monocytes/100 WBC (Bld) 7.7 % Normal 1.7-12.0 [facility] Comment on above: Performed By: #### C BC #### [facility] [address] [place] [address] Dr. Sarah Church NEUT # 9.6 103/ul Critically high 1.4-6.5 [facility] Comment on above: Performed By: #### C BC #### [facility] [address] [place] [address] Dr. Sarah Church Neutrophils/100 WBC (Bld) 77.8 % Critically high 43.0-75.0 [facility] Comment on above: Performed By: #### C BC #### [facility] [address] [address] [address] Sarah Church Platelet mean volume (Bld) [Entitic vol] 11.0 fL Normal 9.5-13.5 [facility] Comment on above: Performed By: #### C BC #### [facility] [address] [address] [address] Sarah Church PLT 220 103/ul Normal 150-450 [facility] Comment on above: Performed By: #### C BC #### [facility] [address] [address] [address] Sarah Church RBC 4.97 106/ul Normal 4.20-5.40 [facility] Comment on above: Performed By: #### C BC #### [facility] [address] [address] [address] Sarah Church WBC 12.4 103/ul Critically high 4.0-11.0 [facility] Comment on above: Performed By: #### C BC #### [facility] [address] [address] [address] Sarah Church GROUP A STREP CULTUREon S. pyogenes Ag Ql (Unsp spec) Culture Observations: NEGATIVE FOR GROUP A STREPTOCOCCUS. Normal [facility] Comment on above: Performed By: #### G RASTCX, SSCRN ####[facility] [address] [address]Dr. Sarah Church POINT OF CARE GLUCOSEon Glucose [Mass/Vol] 214 mg/dL Critically high 74-106 [facility] Comment on above: Performed By: #### P OCGLUC #### [facility] [address] [address] [address] Sarah Church STREPT SCREENon 11-05-2021 STREP SCREEN A Negative Normal NEGATIVE [facility] Comment on above: Performed By: #### G RASTCX, SSCRN ####[facility] [address] [address]Dr. Sarah Church CBC AUTO DIFFon 10-16-2021 BASO # 0.1 103/ul Normal 0.0-0.1 [facility] Comment on above: Performed By: #### C BC #### [facility] [address] [place] [address] Dr. Sarah Church Basophils/100 WBC (Bld) 0.8 % Normal 0.2-2.[address] [facility] Comment on above: Performed By: #### C BC #### [facility] [address] [place] [address] Dr. Sarah Church EO # 0.3 103/ul Normal 0.0-0.[address] [facility] Comment on above: Performed By: #### C BC #### [facility] [address] [place] [address] Dr. Sarah Church Eosinophils/100 WBC (Bld) 3.4 % Normal 0.9-7.[address] [facility] Comment on above: Performed By: #### C BC #### [facility] [address] [place] [address] Dr. Sarah Church Erythrocyte distribution width (RBC) [Ratio] 12.6 % Normal 11.0-15.0 [facility] Comment on above: Performed By: #### C BC #### [facility] [address] [place] [address] Dr. Sarah Church Hematocrit (Bld) [Volume fraction] 45.4 % Normal 36.0-48.0 [facility] Comment on above: Performed By: #### C BC #### [facility] [address] [place] [address] Dr. Sarah Church Hemoglobin (Bld) [Mass/Vol] 15.0 g/dL Normal 12.0-16.[address] [facility] Comment on above: Performed By: #### C BC #### [facility] [address] [place] [address] Dr. Sarah Church IG # 0.02 10e3/ul Normal 0.00-0.[address] [facility] Comment on above: Performed By: #### C BC #### [facility] [address] [place] [address] Dr. Sarah Church IG % 0.2 % Normal 0.0-0.5 [facility] Comment on above: Performed By: #### C BC #### [facility] [address] [place] [address] Dr. Sarah Church LYMPH # 2.7 103/ul Normal 1.2-3.[address] [facility] Comment on above: Performed By: #### C BC #### [facility] [address] [place] [address] Dr. Sarah Church Lymphocytes/100 WBC (Bld) 31.0 % Normal 20.5-60.0 [facility] Comment on above: Performed By: #### C BC #### [facility] [address] [place] [address] Dr. Sarah Church MANUAL DIFF REQ NO Normal [facility] Comment on above: Performed By: #### C BC #### [facility] [address] [place] [address] Dr. Sarah Church MCH (RBC) [Entitic mass] 29.3 pg Normal 26.7-34.0 [facility] Comment on above: Performed By: #### C BC #### [facility] [address] [place] [address] Dr. Sarah Church MCHC (RBC) [Mass/Vol] 33.0 g/dL Normal 29.9-35.[address] [facility] Comment on above: Performed By: #### C BC #### [facility] [address] [place] [address] Dr. Sarah Church MCV (RBC) [Entitic vol] 88.7 fL Normal 81.0-99.[address] [facility] Comment on above: Performed By: #### C BC #### [facility] [address] [place] [address] Dr. Sarah Church MONO # 0.6 103/ul Normal 0.3-0.[address] [facility] Comment on above: Performed By: #### C BC #### [facility] [address] [place] [address] Dr. Sarah Church Monocytes/100 WBC (Bld) 6.5 % Normal 1.7-12.0 [facility] Comment on above: Performed By: #### C BC #### [facility] [address] [place] [address] Dr. Sarah Church NEUT # 5.0 103/ul Normal 1.4-6.5 [facility] Comment on above: Performed By: #### C BC #### [facility] [address] [place] [address] Dr. Sarah Church Neutrophils/100 WBC (Bld) 58.1 % Normal 43.0-75.0 [facility] Comment on above: Performed By: #### C BC #### [facility] [address] [place] [address] Dr. Sarah Church Platelet mean volume (Bld) [Entitic vol] 11.0 fL Normal 9.5-13.5 [facility] Comment on above: Performed By: #### C BC #### [facility] [address] [place] [address] Dr. Sarah Church PLT 226 103/ul Normal 150-450 [facility] Comment on above: Performed By: #### C BC #### [facility] [address] [place] [address] Dr. Sarah Church RBC 5.12 106/ul Normal 4.20-5.40 [facility] Comment on above: Performed By: #### C BC #### [facility] [address] [place] [address] Dr. Sarah Church WBC 8.6 103/ul Normal 4.0-11.0 [facility] Comment on above: Performed By: #### C BC #### [facility] [address] [place] [address] Dr. Sarah Church GLYCOHEMOGLOBIN A1Con 2021 ADA RECOMMENDATION SEE BELOW Normal [facility] Comment on above: Result Comment: ADA RECOMMENDED LIMIT 4.0 - 6.0 ADA THERAPEUTIC TARGET < 7.0 ACTION SUGGESTED > 7.0 Performed By: #### A 1C ####[facility] [address] [place], [place] [address]Dr. Sarah Church Glucose [Mass/Vol] 275 mg/dL Normal [facility] Comment on above: Performed By: #### A 1C ####[facility] [address] [id number]. Sarah Church HbA1c (Bld) [Mass fraction] 11.2 % Critically high 4.5-6.2 [facility] Comment on above: Performed By: #### A 1C ####[facility] [address] [id number]. Sarah Church LIPID PROFILEon 10-16-2021 CHOL-HDL RATIO NORM SEE BELOW Normal [facility] Comment on above: Result Comment: 3.3 - 4.4 LOW RISK 4.4 - 7.1 AVERAGE RISK 7.1 - 11.0 MODERATE RISK >11.0 HIGH RISK Performed By: #### L IPID, CMP ####[facility] [address] [id number]. Sarah Church Cholesterol [Mass/Vol] 159 mg/dL Normal <=200 [facility] Comment on above: Performed By: #### L IPID, CMP ####[facility] [address] [id number]. Sarah Church Cholesterol in HDL [Mass/Vol] 41 mg/dL Normal 40-60 [facility] Comment on above: Performed By: #### L IPID, CMP ####[facility] [address] [address]Dr. Sarah Church Cholesterol in LDL [Mass/Vol] 102.6 mg/dL Normal [facility] Comment on above: Performed By: #### L IPID, CMP ####[facility] [address] [id number]. Sarah Church Cholesterol.total/Ch olesterol in HDL [Mass ratio] 3.9 {ratio} Normal [facility] Comment on above: Performed By: #### L IPID, CMP ####[facility] [address] [id number]. Sarah Church HDL NORMAL > or = 60 mg/dl - LOW CARDIOVASCULAR RISK <40 mg/dl - HIGH CARDIOVASCULAR RISK Normal [facility] Comment on above: Performed By: #### L IPID, CMP ####[facility] [address] [id number]. Sarah Church LDL CALC NORMAL SEE BELOW Normal [facility] Comment on above: Result Comment: <100 mg/dl OPTIMAL 100 - 129 mg/dl NEAR OR ABOVE OPTIMAL 130 - 159 mg/dl BORDERLINE HIGH 160 - 189 mg/dl HIGH >190 mg/dl VERY HIGH Performed By: #### L IPID, CMP ####[facility] [address] [place], [place] [address]Sm. Sarah Church Triglyceride [Mass/Vol] 77 mg/dL Normal <=150 [facility] Comment on above: Performed By: #### L IPID, CMP ####[facility] [address] [id number]. Sarah Church VLDL CALC 15.4 mg/dL Normal [facility] Comment on above: Performed By: #### L IPID, CMP ####[facility] [address] [id number]. Sarah Church MICROALBUMIN, RAND URon 09-30 mALB 2.0 mg/L Normal <=30.0 [facility] Comment on above: Performed By: #### M ALBR #### [facility] [address] [place], [place] [address] Dr. Sarah Church PROF 14(COMP METB)on 022 Albumin [Mass/Vol] 3.5 g/dL Normal 3.4-5.0 [facility] Comment on above: Performed By: #### L IPID, CMP ####[facility] [address] [id number] Church Albumin/Globulin [Mass ratio] 0.8 {ratio} Normal [facility] Comment on above: Performed By: #### L IPID, CMP ####[facility] [address] [id number] Church ALP [Catalytic activity/Vol] 85 U/L Normal 46-116 [facility] Comment on above: Performed By: #### L IPID, CMP ####[facility] [address] [address]Dr. Sarah Church ALT [Catalytic activity/Vol] 59 U/L Normal 14-59 [facility] Comment on above: Performed By: #### L IPID, CMP ####[facility] [address] [address]Dr. Sarah Church Anion gap [Moles/Vol] 15.1 mmol/L Normal [facility] Comment on above: Performed By: #### L IPID, CMP ####[facility] [address] [place], [place] [address]Dr. Sarah Church AST [Catalytic activity/Vol] 32 U/L Normal 15-37 [facility] Comment on above: Performed By: #### L IPID, CMP ####[facility] [address] [place], [place] [address]Dr. Sarah Ranjit Bilirubin [Mass/Vol] 0.4 mg/dL Normal 0.2-1.0 [facility] Comment on above: Performed By: #### L IPID, CMP ####[facility] [address] [place], [place] [address]Dr. Sarah Ranjit Calcium [Mass/Vol] 9.0 mg/dL Normal 8.5-10.1 [facility] Comment on above: Performed By: #### L IPID, CMP ####[facility] [address] [place], [place] [address]Dr. Sarah Church Chloride [Moles/Vol] 102 mmol/L Normal 98-[address] [facility] Comment on above: Performed By: #### L IPID, CMP ####[facility] [address] [place], [place] [address]Dr. Sarah Church CO2 [Moles/Vol] 30.2 mmol/L Normal 21.0-32.0 [facility] Comment on above: Performed By: #### L IPID, CMP ####[facility] [address] [place], [place] [address]Dr. Sarah Church Creatinine [Mass/Vol] 0.81 mg/dL Normal 0.55-1.02 [facility] Comment on above: Performed By: #### L IPID, CMP ####[facility] [address] [place] [address]Dr. Sarah Ranjit EGFR-AF TOGOLESE >60 Normal >=60 [facility] Comment on above: Performed By: #### L IPID, CMP ####[facility] [address] [place] [address]Dr. Sarah Church EGFR-NON AF TOGOLESE >60 Normal >=60 [facility] Comment on above: Performed By: #### L IPID, CMP ####[facility] [address] [place] [address]Dr. Sarah Church Globulin (S) [Mass/Vol] 3.9 g/dL Normal [facility] Comment on above: Performed By: #### L IPID, CMP ####[facility] [address] [place], [place] [address]Dr. Sarah Church Glucose [Mass/Vol] 218 mg/dL Critically high 74-106 [facility] [place] [facility] Comment on above: Performed By: #### L IPID, CMP ####[facility] [address] [place], [place] [address]Dr. Sarah Church Potassium [Moles/Vol] 4.3 mmol/L Normal 3.5-5.1 [facility] Comment on above: Performed By: #### L IPID, CMP ####[facility] [address] [place], [place] [address]Dr. Sarah Church Protein [Mass/Vol] 7.4 g/dL Normal 6.4-8.2 [facility] Comment on above: Performed By: #### L IPID, CMP ####[facility] [address] [place], [place] [address]Dr. Sarah Church Sodium [Moles/Vol] 143 mmol/L Normal 136-145 [facility] Comment on above: Performed By: #### L IPID, CMP ####[facility] [address] [place], [place] [address]Dr. Sarah Church Urea nitrogen [Mass/Vol] 14.0 mg/dL Normal 7.0-18.0 [facility] Comment on above: Performed By: #### L IPID, CMP ####[facility] [address] [place], [place] [address]PnCoretta Sarah Church Urea nitrogen/Creatinine [Mass ratio] 17.2 mg/mg Normal [facility] Comment on above: Performed By: #### L IPID, CMP ####[facility] [address] [place], [place] [address]Sw. Sarah Church Vital Signs Date Time Vital Sign Value Performing Clinician Facility 06-14-2024 10:210500 Body height 157.5 cm Nacho Patiño MD Work Phone: [facility] 06-14-2024 10:21-0500 Body mass index (BMI) [Ratio] 38.59 kg/m2 Nacho Patiño MD Work Phone: [facility] 06-14-2024 10:21-0500 Body temperature 97.3 [degF] Nacho Patiño MD Work Phone: [facility] 06-14-2024 10:21-0500 Body weight 95.71 kg Nacho Patiño MD Work Phone: [facility] 06-14-2024 10:21-0500 Diastolic blood pressure 82 mm[Hg] Nacho Patiño MD Work Phone: [facility] 06-14-2024 10:21-0500 Heart rate 88 /min Nacho Patiño MD Work Phone: [facility] 06-14-2024 10:21-0500 SaO2% (BldA) [Mass fraction] 97 % Nacho Patiño MD Work Phone: [facility] 06-14-2024 10:21-0500 Systolic blood pressure 136 mm[Hg] Nacho Patiño MD Work Phone: [facility] 05-30-2024 10:48-0500 Body height 157.[address] [facility] 01-29-2025 10:48-0500 Body mass index (BMI) [Ratio] 38.5 kg/m2 [facility] 05-30-2024 10:48-0500 Body weight 95.[address] [facility] 05-30-2024 10:48-0500 Diastolic blood pressure 77 mm[Hg] [facility] 05-30-2024 10:48-0500 Heart rate 80 /min [facility] 05-30-2024 10:48-0500 Systolic blood pressure 133 mm[Hg] [facility] 02-23-2024 13:23-0400 Body height 157.[address] [facility] 02-23-2024 13:23-0400 Body mass index (BMI) [Ratio] 38 kg/m2 [facility] 02-23-2024 13:23-0400 Body weight 94.[address] [facility] 02-23-2024 13:23-0400 Diastolic blood pressure 78 mm[Hg] [facility] 02-23-2024 13:23-0400 Heart rate 75 /min [facility] 02-23-2024 13:23-0400 Respiratory rate 18 /min [facility] 02-23-2024 13:23-0400 SaO2% (BldA) [Mass fraction] 97 % [facility] 02-23-2024 13:23-0400 Systolic blood pressure 170 mm[Hg] [facility] 12-13-2023 13:03-0400 Body height 157.[address] [facility] 12-13-2023 13:03-0400 Body mass index (BMI) [Ratio] 37.1 kg/m2 [facility] 12-13-2023 13:03-0400 Body weight 92.[address] [facility] 12-13-2023 13:03-0400 Diastolic blood pressure 86 mm[Hg] [facility] 12-13-2023 13:03-0400 Heart rate 78 /min [facility] 12-13-2023 13:03-0400 Respiratory rate 18 /min [facility] 12-13-2023 13:03-0400 SaO2% (BldA) [Mass fraction] 96 % [facility] 12-13-2023 13:03-0400 Systolic blood pressure 153 mm[Hg] [facility] 12-05-2023 11:240400 Body height 157.[address] [facility] 12-05-2023 11:240400 Body mass index (BMI) [Ratio] 36.9 kg/m2 [facility] 12-05-2023 11:240400 Body weight 91.[address] [facility] 12-05-2023 11:24-0400 Diastolic blood pressure 75 mm[Hg] [facility] 12-05-2023 11:24-0400 Heart rate 80 /min [facility] 12-05-2023 11:24-0400 Systolic blood pressure 133 mm[Hg] [facility] 09-29-2023 13:44-0400 Diastolic blood pressure 76 mm[Hg] [facility] 09-29-2023 13:44-0400 Systolic blood pressure 130 mm[Hg] [facility] 09-29-2023 13:19-0400 Body height 157.[address] [facility] 09-29-2023 13:19-0400 Body mass index (BMI) [Ratio] 38.7 kg/m2 [facility] 09-29-2023 13:19-0400 Body weight 95.[address] [facility] 09-29-2023 13:19-0400 Heart rate 89 /min [facility] 09-29-2023 13:19-0400 Respiratory rate 18 /min [facility] 09-29-2023 13:19-0400 SaO2% (BldA) [Mass fraction] 98 % [facility] 09-06-2023 11:080400 Body height 157.[address] [facility] 09-06-2023 11:08-0400 Body mass index (BMI) [Ratio] 37.6 kg/m2 [facility] 09-06-2023 11:080400 Body weight 93.[address] [facility] 09-06-2023 11:08-0400 Diastolic blood pressure 72 mm[Hg] [facility] 09-06-2023 11:08-0400 Heart rate 89 /min [facility] 09-06-2023 11:08-0400 Systolic blood pressure 127 mm[Hg] [facility] 08-24-2023 15:08-0400 Body height 157.[address] [facility] 08-24-2023 15:08-0400 Body mass index (BMI) [Ratio] 37.5 kg/m2 [facility] 08-24-2023 15:08-0400 Body weight 93.[address] [facility] 08-19-2023 10:43-0400 Body height 157.48 cm MD Shayy Dela Cruz Work Phone: [facility] 08-19-2023 10:43-0400 Body mass index (BMI) [Ratio] 37.5 kg/m2 MD Shayy Dela Cruz Work Phone: [facility] 08-19-2023 10:43-0400 Body weight 93.09 kg MD Shayy Dela Cruz Work Phone: [facility] 08-19-2023 10:43-0400 Diastolic blood pressure 79 mm[Hg] MD Shayy Dela Cruz Work Phone: [facility] 08-19-2023 10:43-0400 Heart rate 83 /min MD Shayy Dela Cruz Work Phone: [facility] 08-19-2023 10:43-0400 Systolic blood pressure 135 mm[Hg] MD Shayy Dela Cruz Work Phone: [facility] 07-28-2023 14:22-0400 Body height 157.48 cm MD Shayy Dela Cruz Work Phone: [facility] 07-28-2023 14:22-0400 Body mass index (BMI) [Ratio] 37.6 kg/m2 MD Shayy Dela Cruz Work Phone: [facility] 07-28-2023 14:22-0400 Body weight 93.44 kg MD Shayy Dela Cruz Work Phone: [facility] 07-28-2023 14:22-0400 Diastolic blood pressure 84 mm[Hg] MD Shayy Dela Cruz Work Phone: [facility] 07-28-2023 14:22-0400 Heart rate 83 /min MD Shayy Dela Cruz Work Phone: [facility] 07-28-2023 14:22-0400 Respiratory rate 18 /min MD Shayy Dela Cruz Work Phone: [facility] 07-28-2023 14:22-0400 SaO2% (BldA) [Mass fraction] 97 % MD Shayy Dela Cruz Work Phone: [facility] 07-28-2023 14:22-0400 Systolic blood pressure 140 mm[Hg] MD Shayy Dela Cruz Work Phone: [facility] 07-19-2023 10:57-0400 Body height 157.48 cm MD Shayy Dela Cruz Work Phone: [facility] 07-19-2023 10:57-0400 Body mass index (BMI) [Ratio] 37.1 kg/m2 MD Shayy Dela Cruz Work Phone: [facility] 07-19-2023 10:57-0400 Body weight 92.07 kg MD Shayy Dela Cruz Work Phone: [facility] 07-19-2023 10:57-0400 Diastolic blood pressure 68 mm[Hg] MD Shayy Dela Cruz Work Phone: [facility] 07-19-2023 10:57-0400 Heart rate 89 /min MD Shayy Dela Cruz Work Phone: [facility] 07-19-2023 10:57-0400 Systolic blood pressure 132 mm[Hg] MD Shayy Dela Cruz Work Phone: [facility] 05-25-2023 11:00-0500 Body height 157.48 cm Cathie Scally Other [facility] 05-25-2023 11:00-0500 Body mass index (BMI) [Ratio] 37.23 kg/m2 Cathie Scally Other [facility] [employer] Other 05-25-2023 11:00-0500 Body weight 92.35 kg Cathiesay Anguloly Other [facility] 05-25-2023 11:00-0500 Diastolic blood pressure 71 mm[Hg] Cathie Scally Other [facility] 05-25-2023 11:00-0500 Respiratory rate 18 /min Cathie Anguloly Other [facility] [employer] Other 05-25-2023 11:00-0500 SaO2% (BldA) [Mass fraction] 95 % Cathie Scally Other [facility] [employer] Other 05-25-2023 11:00-0500 Systolic blood pressure 139 mm[Hg] Cathie Anguloly Other [facility] 04-15-2023 11:00-0500 Body height 157.48 cm Shayy Dela Cruz Other [facility] 04-15-2023 11:00-0500 Body mass index (BMI) [Ratio] 37.49 kg/m2 Shayy Dela Cruz Other [facility] [employer] Other 04-15-2023 11:00-0500 Body weight 92.99 kg Shayy Dela Cruz Other [facility] [employer] Other 04-15-2023 11:00-0500 Body weight 92.98 kg MD Shayy Dela Cruz Work Phone: [facility] 04-15-2023 11:00-0500 Diastolic blood pressure 84 mm[Hg] Shayy Dela Cruz Other [facility] 04-15-2023 11:00-0500 Systolic blood pressure 142 mm[Hg] Shayy Dela Cruz Other [facility] 06-22-2022 13:30-0500 Body height 157.48 cm Shayy Dela Cruz Other [employer] Other 06-22-2022 13:30-0500 Body mass index (BMI) [Ratio] 36.94 kg/m2 Shayy Dela Cruz Other [employer] Other 06-22-2022 13:30-0500 Body weight 91.63 kg Shayy Dela Cruz Other [employer] Other 06-22-2022 13:30-0500 Diastolic blood pressure 74 mm[Hg] Shayy Dela Cruz Other [employer] Other 06-22-2022 13:30-0500 SaO2% (BldA) [Mass fraction] 97 % Shayy Dela Cruz Other [employer] Other 06-22-2022 13:30-0500 Systolic blood pressure 112 mm[Hg] Shayy Dela Cruz Other [employer] Other Encounters Encounter Date Encounter Type Care Provider Facility Start: 06-19-2024 End: 06-19-2024 ambulatory [facility] Start: 06-14-2024 End: 06-14-2024 Office outpatient new 30 minutes Nacho Patiño MD [facility] Comment on above: 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) Start: 06-14-2024 End: 06-14-2024 ambulatory NACHO PATIÑO [facility] Start: 05-30-2024 End: 05-30-2024 ambulatory [facility] Work Phone: Start: 05-30-2024 End: 05-30-2024 [facility] encounter [facility] Work Phone: Start: 05-24-2024 End: 05-24-2024 ambulatory [facility] Work Phone: Start: 05-24-2024 End: 05-24-2024 Patient encounter procedure [facility] Work Phone: Start: 05-16-2024 Non-patient / Non-visit [facility] [employer] Work Phone: Start: 05-07-2024 Non-patient / Non-visit [facility] Work Phone: Start: 04-19-2024 End: 04-19-2024 Patient encounter procedure [facility] Work Phone: Start: 02-28-2024 Non-patient / Non-visit [facility] Work Phone: Start: 02-23-2024 End: 02-23-2024 ambulatory Cathie Vargas [facility] Work Phone: Start: 02-23-2024 End: 02-23-2024 Patient encounter procedure [employer]IC[employer] Cathie Vargas Work Phone: [facility] Work Phone: Start: 02-23-2024 End: 02-23-2024 ambulatory [facility] Work Phone: Start: 02-23-2024 End: 02-23-2024 Patient encounter [facility] Work Phone: Start: 01-17-2024 End: 01-17-2024 ambulatory [facility] Work Phone: Start: 01-17-2024 End: 01-17-2024 Patient encounter procedure [facility] Work Phone: Start: 12-13-2023 End: 12-13-2023 ambulatory [facility] Work Phone: Start: 12-13-2023 End: 12-13-2023 Patient encounter procedure [facility] Work Phone: Start: 12-05-2023 End: 12-05-2023 ambulatory [facility] Work Phone: Start: 12-05-2023 End: 12-05-2023 Patient encounter procedure [facility] Work Phone: Start: 11-07-2023 End: 11-07-2023 ambulatory [facility] Work Phone: Start: 11-07-2023 End: 11-07-2023 Patient encounter procedure [facility] Work Phone: Start: 09-29-2023 End: 09-29-2023 ambulatory [facility] Work Phone: Start: 09-29-2023 End: 09-29-2023 Patient encounter procedure [facility] Work Phone: Start: 09-06-2023 End: 09-06-2023 ambulatory [facility] Work Phone: Start: 09-06-2023 End: 09-06-2023 Patient encounter procedure [facility] Work Phone: Start: 08-24-2023 End: 08-24-2023 ambulatory [facility] Work Phone: Start: 08-24-2023 End: 08-24-2023 Patient encounter procedure [facility] Work Phone: Start: 08-19-2023 End: 08-19-2023 ambulatory MD Shayy Dela Cruz Work Phone: [facility] Work Phone: Start: 08-19-2023 End: 08-19-2023 Patient encounter procedure MD Shayy Dela Cruz Work Phone: [facility] Work Phone: Start: 07-28-2023 End: 07-28-2023 ambulatory MD Shayy Dela Cruz Work Phone: [facility] Work Phone: Start: 07-28-2023 End: 07-28-2023 Patient encounter procedure MD Shayy Dela Cruz Work Phone: [facility] Work Phone: Start: 07-19-2023 End: 07-19-2023 ambulatory MD Shayy Dela Cruz Work Phone: [facility] Work Phone: Start: 07-19-2023 End: 07-19-2023 Patient encounter procedure MD Shayy Dela Cruz Work Phone: [facility] Work Phone: Start: 07-12-2023 Non-patient / Non-visit MD Shayy Dela Cruz Work Phone: [facility] [employer] Work Phone: Start: 06-14-2023 End: 06-14-2023 Patient encounter procedure MD Shayy Dela Cruz Work Phone: [facility] Work Phone: Start: 06-14-2023 End: 06-14-2023 ambulatory MD Shayy Dela Cruz Work Phone: [facility] Work Phone: Start: 06-06-2023 End: 06-06-2023 ambulatory Shayy Dela Cruz Other [employer] Other Start: 06-06-2023 Telephone encounter Shayy Dela Cruz [facility] Start: 05-25-2023 FQ visit new patient Cathie Sheikh kate [facility] Start: 05-25-2023 End: 05-25-2023 ambulatory MD Shayy Dela Cruz Work Phone: [facility] [employer] Other Start: 05-25-2023 End: 05-25-2023 Discharged Recurring MD Shayy Dela Cruz Work Phone: [facility] Work Phone: Start: 05-25-2023 Registered Recurring MD Shayy Dela Cruz [facility] Work Phone: Start: 05-25-2023 End: 05-25-2023 Patient encounter procedure MD Shayy Dela Cruz Work Phone: [facility] Start: 05-12-2023 End: 05-12-2023 ambulatory Shayy Dela Cruz Other [employer] Other Start: 05-12-2023 Telephone encounter Shayy Dela Cruz [facility] Start: 05-10-2023 End: 05-10-2023 ambulatory Shayy Dela Cruz Other [employer] Other Start: 05-10-2023 Telephone encounter Shayy Dela Cruz [facility] Start: 04-22-2023 End: 04-22-2023 ambulatory Shayy Dela Cruz Other [employer] Other Start: 04-22-2023 Telephone encounter Shayy Dela Cruz [facility] Start: 04-20-2023 End: 04-20-2023 ambulatory Lynne Fitt Other [employer] Other Start: 04-20-2023 Telephone encounter Lynne Fitt [facility] Start: 04-18-2023 End: 04-18-2023 ambulatory Lynne Fitt Other [employer] Other Start: 04-18-2023 Telephone encounter Lynne Fitt [facility] Start: 04-15-2023 End: 04-15-2023 ambulatory Shayy Dela Cruz Other [employer] Other Start: 04-15-2023 Office outpatient visit 15 minutes Shayy Dela Cruz [facility] Start: 04-15-2023 End: 04-15-2023 Patient encounter procedure MD Shayy Dela Cruz Work Phone: [facility] Work Phone: Start: 04-06-2023 End: 04-06-2023 ambulatory Shayy Dela Cruz Other [employer] Other Start: 04-06-2023 Telephone encounter Shayy Dela Cruz [facility] Start: 02-25-2023 End: 02-25-2023 ambulatory Shayy Dela Cruz Other [employer] Other Start: 02-25-2023 Telephone encounter Shayy Dela Cruz [facility] Start: 10-29-2022 End: 10-29-2022 ambulatory Shayy Dela Cruz Other [employer] Other Start: 10-29-2022 Telephone encounter Shayy Dela Cruz [facility] Start: 08-27-2022 End: 08-28-[address] SHAYY DELA CRUZ Facility:[facility] Start: 07-20-2022 End: 07-21-[address] SHAYY DELA CRUZ Facility:[facility] Start: 07-19-2022 End: 07-19-2022 ambulatory Shayy Dela Cruz Other [employer] Other Start: 07-19-2022 Telephone encounter Shayy Dela Cruz [facility] Start: 07-12-2022 End: 07-13-[address] SHAYY DELA CRUZ Facility:[facility] Start: 07-05-2022 End: 07-05-2022 ambulatory Shayy Dela Cruz Other [employer] Other Start: 07-05-2022 Telephone encounter Shayy Dela Cruz [facility] Start: 06-28-2022 End: 06-28-2022 ambulatory Shayy Dela Cruz Other [employer] Other Start: 06-28-2022 Telephone encounter Shayy Dela Cruz [facility] Start: 06-22-2022 End: 06-22-2022 ambulatory Shayy Dela Cruz Other [employer] Other Start: 06-22-2022 Office outpatient visit 15 minutes Shayy Dela Cruz [facility] Start: 05-27-2022 End: 05-27-2022 ambulatory Shayy Dela Cruz Other [employer] Other Start: 05-27-2022 Telephone encounter Shayy Dela Cruz [facility] Start: 05-19-2022 End: 05-20-[address] SHAYY [...] 05-06-2017 Ambulatory DEFAULT PHYSICIAN Facility:[facility] Plan of Treatment Date Care Activity Detail Author Start: 01-01-2024 Influenza vaccination Influenza Vaccine [facility] Start: 01-15-2022 Administration of varicella zoster vaccine Zoster (Shingles) Vaccine (1 of 2) [facility] Start: 01-15-1993 Screening for malignant neoplasm of cervix Pap Smear [facility] Start: 01-15-1991 DTaP,Tdap and Td Vaccines (1 - Tdap) DTaP,Tdap and Td Vaccines (1 - Tdap) [facility] Start: 01-15-1990 Adult BMI Screening Adult BMI Screening [facility] Start: 1984 Depression Screening Depression Screening [facility] Start: 1984 Tobacco Screening Tobacco Screening [facility] Comprehensive metabo lic 2000 panel - Serum or Plasma [facility] MG Breast - bilatera l Screening [facility] Immunizations Immunization Date Immunization Notes Care Provider Fa beatricety 02-01-2022 influenza virus vaccine, split virus (incl. purified surface antigen) Shayy Dela Cruz Other [employer] Other 02-01-2022 influenza virus vaccine, unspecified formulation MD Shayy Dela Cruz Work Phone: [facility] Payers Date Payer Category Payer Medicare HMO [employer] MED[employer]ARE [id number] 2023 Medicare [id number] 2023 Self-pay [address] [facility] er [id number] 2017 Unknown [id number] 1972 Unknown [id number] 1972 Unknown [id number] 1972 Unknown [id number] 1972 Unknown [id number] 1972 Unknown [id number] 1972 Unknown [id number] 1972 Unknown [id number] 1972 Unknown [id number] [id number] 1972 Unknown [id number] [id number] 1972 Unknown [id number] 1959 Medicaid [id number] 1957 Medicare [id number] Unknown Unknown [id number] Unknown [id number] Social History Date Type Detail Facility Unknown if ever smoked [employer] Other Start: 06-14-2024 Sex Assigned At [employer] Other Start: 1970 Sex Assigned At Female [facility] Start: 07-19-2023 End: 06-14-2024 Tobacco smoking status NHIS Never smoked tobacco (finding) [facility] Start: 05-24-2024 End: 06-13-2024 Sex Female (finding) [facility] Start: 06-14-2024 Tobacco use and exposure Smokeless tobacco non-user [facility] [email or web address] [facility] Start: 06-14-2024 Alcoholic beverage intake Lifetime non-drinker (finding) [facility] [email or web address] [facility] Start: 06-14-2024 History of Social function [facility] [email or web address] Within the past 12 months we worried whether our food would run out before we got money to buy more. Never True [facility] [email or web address] [facility] Start: 1970 Sex assigned at Not on file [facility] [email or web address] NEGATED: Highlighted row [facility] Medical Equipment Procedure Code Equipment [...] 06-19-2024 Assessment & Plan Note - Nacho aPtiño MD - 06/14/2024 11:11 AM ESTAssessment & [...] scheduled for 06/21/[address] Bruce at [facility]. She had EKG, CXR, and labs today. Denies chest pain, SOB, and palpitations. Lipid panel was drawn last week. Subjective Zoila Ramos is a 54 y.o. year old female patient with coronary artery disease status post PCI to proximal RCA and mid circumflex in 2004, hyperlipidemia, hypertension, type 2 diabetes, and obesity seen in follow-up. Patient here for 1.5 year follow up CAD, hypertension, and hyperlipidemia. She also needs cleared for toe amputation. This is scheduled for 06/21/[address] Bruce at [facility]. 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 (more content not included)... [facility] 06-14-2024 Evaluation + Plan note [...] amputation by podiatry and risk factors modification. [facility] 06-14-2024 Miscellaneous Notes Associated Problem(s): Gangrene of [...] risk factors modification. documented in this encounter [facility] 06-14-2024 History of Presen t illness Narrative [...] Past Medical History: Diagnosis Date Diabetes mellitus ([facility]) Past Surgical History: No past surgical [...] Interpersonal Safety: Unknown (06/23/2023) Received from [facility] Safety & Environment Fear of Current or [...] List Gangrene of toe of left foot ([facility]-HCC) - Primary Current Assessment & Plan Osteomyelitis [...] visit: Gangrene of toe of left foot ([facility]-HCC) Nacho Patiño MD, SELMA, RPVI, FSVS, FACS [facility] This note was created with the assistance of a speech recognition program. While intending to generate a timely document that accurately reflects the content of the visit, no guarantee can be provided that every grammatical or spelling mistake has been or will be identified or corrected. Thank you for your understanding. documented in this encounter [facility] 04-19-2024 Evaluation note Diagnosis Onset Date Resolution Type 2 diabetes mellitus acute April 19, 2 024 2:03pm [facility] Work Phone: 1(495) 516-315512-19-2024 Evaluation note* Diagnosis Onset Date Resolution Status Admit Date Type 2 diabetes mellitus acute April 19, 2024 2:03pm Type 2 diabetes mellitus acute May 24, 2024 12:54pm [facility] Work Phone: 1(851) 872-603602-05-2024 Evaluation note* Encounter Date Diagnosis Assessment Notes Treatment Notes Treatment Clinical Notes Jun, Controlled type 2 diabetes mellitus with hyperglycemia, unspecified whether intermediate insulin use (ICD-10 - E11.65) [employer] Other 01-24-2024 Evaluation note* Encounter Date Diagnosis [...] Instructions material was published to portal May, skilled nursing current use of insulin (ICD-10 - Z79.4) May, BMI 37.0-37.9, adult (ICD-10 - Z68.37) May, Other 05/25/2023 The patient was given a Dexcom G7 sensor sample and an [employer] [place]. She was taught how to use the [...] educating the patient by Nguyễn Norwood RN, [facility]. [employer] Other 12-15-2023 Evaluation note* Encounter Date Diagnosis Assessment Notes Treatment Notes Treatment Clinical Notes Apr, Type 2 diabetes mellitus with hyperglycemia (ICD-10 - E11.65) Rx handwritten for diabetic shoes. Pt agrees to referral to specialty clinic. Continue present meds and discussed healthy diet in meantime. 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 She declines and will continue meds, followup in 3 months, and recheck labs at that time. She is eating more of a keto diet and is certain that is helping her A1C improve. Jun, Screening mammogram for breast cancer (ICD-10 - Z12.31) Zoila will call for an appt [employer] Other 12-15-2022 NotePROCEDURE: XR FOOT LT MIN [...] NARINDER LAN Date: 2022-04-15 06:08[facility]09-12-2022 NotePROCEDURE: XR TOES RT MIN 2 V HISTORY: Pain of toe of right foot ; first toe pain following injury COMPARISON: None. FINDINGS: BONES:No fracture, acute abnormality, or significant arthropathy. SOFT TISSUES:No visible soft tissue swelling. EFFUSION:None visible. OTHER: Negative. IMPRESSION: 1. No acute bone abnormality. 2. Mild degenerative joint disease. Electronically authenticated by: NARINDER LAN Date: 2022-01-11 18:48[facility]Reason for [facility] Narrative* Chief Complaint 3 Month Follow Up Referral Dr. Negro LAGUERRE download [facility] Work Phone: chief complaint+Reason for visit Narrative* Chief Complaint 3 Month Follow Up Referral Dr. eNgro LAGUERRE download Reason for Visit Type 2 diabetes holli [facility] Work Phone: chief complaint+Reason for visit Narrative* Chief Complaint Referral Dr. Negro LAGUERRE download 3 Month Check up Reason for Visit Type 2 diabetes holli [facility] Work Phone: chief complaint+Reason for visit Narrative* Chief Complaint Referral Dr. Negro LAGUERRE download 3 Month Check up amrik reader Reason for Visit Type 2 diabetes holli itus Right wrist fracture Type 2 diabetes mellitus [facility] Work Phone: Chixg complaint+Reason for visit Narrative* Chief Complaint Referral Dr. Negro LAGUERRE download 3 Month Check up amrik reader Gastroesophageal reflux disease (GERD) Reason for Visit Type 2 diabetes holli itus Right wrist fracture Type 2 diabetes mellitus BMI 37.0-37.9, adult Dietary counseling and surveillance History of myocardial infarction HTN (hypertension) Hyperlipidemia Long-term insulin use Type 2 diabetes mellitus Vitamin D deficiency Gastroesophageal reflux disease [facility] Work Phone: Evaluation noteNo InformationNort Th[employer] Other Evaluation noteNo assessment information available [facility] Work Phone: Evaluation note* Diagnosis Onset Date Resolution Status Type 2 diabetes mellitus acu te [facility] Work Phone: evaluation note* Diagnosis Onset Date Resolution Status Type 2 diabetes mellitus acu te Right wrist fracture acute Type 2 diabetes mellitus acu te [facility] Work Phone: evaluation note* Diagnosis Onset Date Resolution Status Type 2 diabetes mellitus acu te Right wrist fracture acute Type 2 diabetes mellitus acu te BMI 37.0-37.9, adult acute Dietary counseling and surveillance acute History of myocardial infarction acute HTN (hypertension) acute Hyperlipidemia acute Long-term insulin use acute Type 2 diabetes mellitus acu te Vitamin D deficiency acute Gastroesophageal reflux disease acute [facility] Work Phone: evaluation note* Diagnosis Onset [...] acute Type 2 diabetes mellitus acu te [facility] Work Phone: evalusdcwt note* Diagnosis Onset Date Resolution Status Right [...] acute Type 2 diabetes mellitus acu te [facility] Work Phone: Evaluation note* Diagnosis Onset [...] acute Type 2 diabetes mellitus acu te [facility] Work Phone: evaluation note* Diagnosis Onset [...] te Screening mammogram for breast cancer acute [facility] Work Phone: evaluation note* Diagnosis Onset [...] mellitus acu te Vitamin D deficiency acute [facility] Work Phone: evaluation note* Diagnosis Onset [...] acute Type 2 diabetes mellitus acu te [facility] Work Phone: evaluation note* Diagnosis Onset [...] mellitus acu te Vitamin D deficiency acute [facility] Work Phone: Evaluation note* Diagnosis Gangrene of toe of left foot ([facility])- Primary [facility] - Reported* Type Description Date Medical History Herpes labialis Medical History Candidiasis of mouth Medical History Type 2 diabetes holli itus with diabetic polyneuropathy, unspecified whether intermediate insulin use Medical History Controlled type 2 di abetes mellitus with hyperglycemia, unspecified whether intermediate insulin use Medical History Obesity Medical History Dyslipidemia Medical History CAD in hoopa artery Medical History Asthma, intermittent Medical History [...] History appendectomy Surgical History 7 stents 1999 [employer] Other [employer] general Narrative - Reported* Type Description Date Medical History Herpes labialis Medical History Candidiasis of mouth Medical History Type 2 diabetes holli itus with diabetic polyneuropathy, unspecified whether intermediate insulin use Medical History Controlled type 2 di abetes mellitus with hyperglycemia, unspecified whether 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 helper termite insulin use Medical History Obesity Medical History Dyslipidemia Medical History CAD in hoopa artery Medical History Asthma, intermittent Medical History [...] stents 1999 Hospitalization History see surgical history [employer] Other [employer] general Narrative - Reported* Type Description Date Medical History Herpes labialis Medical History Candidiasis of mouth Medical History Type 2 diabetes holli itus with diabetic polyneuropathy, unspecified whether 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 helper termite insulin use Medical History Controlled type 2 di abetes mellitus with hyperglycemia, unspecified whether 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 helper termite insulin use Medical History Obesity Medical History Dyslipidemia Medical History CAD in hoopa artery Medical History Asthma, intermittent Medical History [...] coronary 2000 Hospitalization History see surgical history [employer] Other InstructionsNot on filedocumented in this encounter [facility] Purpose Family History No Family History [...] itus with hyperglycemia (E11.65) Referral Organization [facility] Referring Provider First Name Shayy Referring Provider Last Name Jose De Jesus Referring Provider [facility] Referred Organization [facility] Referred Provider Marcia Mendes Referred Address [address] [place] [address],[address],[place], [place],[address] Referred Provider Specialty Nurse Huey saldaña Referral [...] content) DATE CREATED AUTHOR 10/25/2017 [facility] DATE CREATED AUTHOR AUTHOR'S ORGANIZ ATION 09/03/2022 [facility] DATE CREATED AUTHOR AUTHOR'S ORGANIZ ATION 02/25/2024 [facility] DATE CREATED AUTHOR AUTHOR'S ORGANIZ ATION 06/16/2024 [facility] DATE CREATED AUTHOR AUTHOR'S ORGANIZ ATION 06/30/2024 [facility] REASON FOR VISIT (unrecogniz ed section and [...] End: September 29, 2023 Cathie Vargas , MASTER CONTROL TECHNICIAN Attending Provider Active Start: September 29, 2023 End: September 29, 2023 Team Status: Inactive Member Role Status Dates Shayy Dela Cruz MD Primary Care Provider Active Start: November 07, 2023 End: November 07, 2023 Curtis Norwood RN Attending Provider Active St art: November 07, 2023 End: November 07, 2023 Cathie Vargas , MASTER CONTROL TECHNICIAN Active Star t: November 07, 2023 End: [...] End: July 28, 2023 Cathie Vargas , MASTER CONTROL TECHNICIAN Attending Provider Active Start: July 28, 2023 End: July 28, 2023 Team Status: Inactive Member Role Status Dates Shayy Dela Cruz MD Attending Provider Active St art: April 15, 2023 End: April 15, 2023 Team Status: Inactive Member Role Status Dates Cathie Vargas , MASTER CONTROL TECHNICIAN Attending Provider Active Start: May 25, 2023 [...] End: June 14, 2023 Cathie Vargas , MASTER CONTROL TECHNICIAN Active Star t: June 14, 2023 End: [...] BE BASED ON THE PRIMARY CLINICAL RECORDS. [facility]. provides no warranty or guarantee of the accuracy or completeness of information in this document.
[2024-07-05 07:11] VITALS: BP 184/94; PULSE 85; TEMP 36.1; O2SAT 95; BMI 39.0
[2024-07-05] MEDS: LACTATED RINGER'S SOLUTION 1,000 ML 50 ML IV (07:42)
[2024-07-05] MEDS: INSULIN ASPART 300 UNIT/3 ML PEN 6 UNIT SUBQ (08:24)
[2024-07-05] MEDS: CEFAZOLIN SODIUM/DEXTROSE,ISO 2 GM/50 ML PIGGYBACK IV (08:28)
[2024-07-05] MEDS: BUPIVACAINE HCL 0.5% PF 50 MG/10 ML VIAL INJ (08:57)
[2024-07-05] MEDS: LIDOCAINE HCL 1% 100 MG/10 ML MDV INJ (08:57)
--- NOTE | 2024-07-05 09:27 | XR_ITS ---
[facility] [place] [id number] Patient Name: COLETTE DINH MRN: [id number] date: 1970 Sex: F Assigned Patient [facility] Current Patient Location: Accession/Order Number: [id number] Exam Date: 07/05/2024 22:49 Report Date: 07/05/2024 22:52 At the request of: JORDYN SANCHEZ DPNegro Procedure: XR foot LT min 3V LEFT FOOT - 3 views CLINICAL HISTORY: Postoperative imaging amputation of third left toe. COMPARISON: Left foot 06/13/2024 FINDINGS: There appears be interval amputations of the distal aspect of the third digit and the distal aspect of the second digit. Soft tissue swelling is present. Calcifications in the region of the previously third MTP joint with flattening of the head of the third metatarsal likely postoperative. No fracture or definitive plain film evidence of new osteomyelitis. XR/XR foot LT min 3V IMPRESSION: POSTOPERATIVE CHANGES INVOLVING THE SECOND AND THIRD DIGITS WITHOUT DEFINITIVE PLAIN FILM EVIDENCE OF NEW OSTEOMYELITIS.. Impression dictated by: Camilo Hui Jr., D.O.07/05/2024 10:52 PM Dictation Location: [employer] Electronically authenticated by: [id number] Y Date: 07/05/2024 22:52
--- NOTE | 2024-07-05 09:28 | PM.ORONB ---
Brief Operative Note Date of procedure: 07/05/24 Pre-op diagnosis general: Left diabetic foot ulceration involving second and third toes with dry gangrene and chronic osteomyelitis Post-op diagnosis: same as pre-op Procedure: Procedure performed: Partial amputation of left second toe and total amputation of left third toe Indications for procedure: Patient is a 54-year-old female with type 2 diabetes, CAD and peripheral arterial disease who has been treated in our wound center for chronic osteomyelitis of the distal phalanx of left second toe. Unfortunately patient applied tight Coban dressing which led to ischemia primarily of the left third toe and partially to the left second and fourth toe. Over the last couple of weeks she has been applying Betadine and a loose dressing and fortunately the fourth toe recovered but the third toe did not and the second toe had considerable necrosis and ischemia to its lateral aspect. She was referred to Dr. Patiño with vascular surgery for evaluation and felt that the patient's blood flow was adequate to undergo digital amputation in hopes of preventing a major amputation. Patient was educated and all questions were answered to her satisfaction. Once she was cleared by cardiology she was scheduled to undergo the above procedures. In preoperative holding patient related that she overall felt well and has been on oral antibiotics as prescribed. Pain has also improved. She was educated although clinically she has improved somewhat she remains at tremendously high risk for major amputation. This was communicated to her before as well as after the procedure. Intraoperative findings: Full-thickness ischemia and necrosis involving majority of the left third toe extending proximal to the proximal inner phalangeal joint. Incision into healthy skin revealed sluggish blood flow and bone quality was soft and mildly discolored. Full-thickness ischemia and necrosis of the left second toe at its lateral aspect at the level of the proximal inner phalangeal joint. Incision at the level of the distal inner phalangeal joint revealed very little blood flow. Blood flow to did improve when the incision was taken more proximally to the level of the PIPJ therefore the amputation was performed just proximal to the PIPJ although blood flow remained sluggish. Bone quality was very soft and discolored consistent with chronic osteomyelitis. No evidence of acute infection Procedure in detail: Patient was identified in preoperative holding by myself which time correct side and site were marked and consent was obtained. Patient was brought back the operating theater placed on table in supine position and preoperative antibiotics were started. IV sedation was administered per anesthesia and the left foot was prepped and draped in usual sterile fashion. A calf tourniquet was placed but was not inflated during the procedure. Formal timeout was performed and local anesthesia was administered utilizing 10 cc of 1% lidocaine plain and 10 cc of 0.5% Marcaine plain. A fishmouth incision was placed over the distal inner phalangeal joint of the second toe which included the area of soft tissue necrosis on the lateral aspect however blood flow was very poor therefore the the incision was taken more proximally to the level of the proximal inner phalangeal joint and blood flow significantly improved although was still somewhat sluggish. Combination of sharp and blunt dissection was performed and the toe was dislocated and amputated at the level of the PIPJ and passed the back table for specimen. Surgical site was irrigated with copious saline and a clean rongeur was used to remove the head of the proximal phalanx which was sent to microbiology for further analysis. This bone was soft but of better quality compared to the distal and middle phalanx and did bleed. There is no evidence of acute infection. Tendons were cut proximally. Fishmouth incision was placed at the level of the metatarsal phalangeal joint of the left third toe which noted intact blood supply although somewhat sluggish. Soft tissue attachments of the metatarsal phalangeal joint were released allowing amputation of the toe at the level of the metatarsal phalangeal joint. The amputated toe was passed back table to be sent to pathology for analysis tendons were cut proximally and the surgical site was irrigated. Then a clean rongeur was used to obtain specimen from the third metatarsal which was soft but did bleed and appeared healthy although soft. Surgical sites were irrigated again with copious saline and then was closed in a single layer using skin suture without tension. Capillary refill to the amputation stumps was less than 5 seconds. Dry sterile dressing and surgical shoe was then applied. Patient tolerated the procedure and anesthesia well was transferred to the recovery room with vital signs stable. Postoperative plan: Discharge home under sister's care Partial protected weightbearing to left heel with surgical shoe and walker/crutches I strongly recommended rest and elevation. No Trever wrap's or compressive bandages Reinforce surgical bandage as needed. Call wound center if dressing needs to be changed prior to follow-up which should be within the next week. Prescriptions were sent to her pharmacy using my office EMR Implants: none Anesthesia: MAC and local Surgeon: Sadi Bruce General Car Supervisor Yard: Ruby Rocha Estimated blood loss (mL): 10 Tourniquet time (min): 0 Pathology: other (Second and third toe to pathology; second proximal phalanx and third metatarsal to microbiology) Condition: stable Disposition: PACU
[2024-07-05 09:50] VITALS: BP 130/76; PULSE 85; TEMP 36.5; O2SAT 94
[2024-07-05 10:05] VITALS: BP 140/82; PULSE 74; O2SAT 94
[2024-07-05] MEDS: ONDANSETRON 4 MG RAPDIS TABLET SL (10:12)
--- NOTE | 2024-07-05 10:15 | PC.NURSE ---
1012: pt complains of nausea,pt medicated at this time with ODT zofran.
[2024-07-05 10:20] VITALS: BP 147/72; PULSE 74; O2SAT 94
[2024-07-05 10:50] VITALS: BP 157/77; PULSE 78; O2SAT 96
== END 2024-07-05 10:55 | disposition home or self-care (01) ==
PROVIDERS: PCP Family Medicine; Visit Provider Podiatrist Foot & Ankle Surgery
PROC: (CPT 1480; principal; 2024-07-05 08:00)
DX: E11.69 Type 2 diabetes mellitus with other specified complication (principal); E11.52 Type 2 diabetes mellitus with diabetic peripheral angiopathy with gangrene; E11.621 Type 2 diabetes mellitus with foot ulcer; L97.521 Non-pressure chronic ulcer of other part of left foot limited to breakdown of skin; M86.672 Other chronic osteomyelitis, left ankle and foot; I96 Gangrene, not elsewhere classified; M86.172 Other acute osteomyelitis, left ankle and foot; I25.10 Atherosclerotic heart disease of native coronary artery without angina pectoris; Z79.4 Long term (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 of insulin; Z79.84 Long term (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 of oral hypoglycemic drugs; Z90.49 Acquired absence of other specified parts of digestive tract; R06.09 Other forms of dyspnea; Z95.5 Presence of coronary angioplasty implant and graft; K21.9 Gastro-esophageal reflux disease without esophagitis; Z86.718 Personal history of other venous thrombosis and embolism
CPT/HCPCS: 28820; 28825; 36415; 73630; 82948; 84155; 87070; 87102; 87116; 87205; 87206; 88305; 88311; 99999; J0665; J0690; J2250; J2704; J3010; Q0162

== ENCOUNTER 2024-07-10 16:11 | Outpatient (OUT) | payer MEDICARE, MEDICAID, SELFPAY ==
--- OUTSIDE RECORDS SUMMARY | 2024-07-10 16:22 | XMS_ITS | CCD ---
Author Organization [facility] Care Team Providers Care Powder Nipper Name Role Phone PHYSICIAN, DEFAULT Unavailable Unavailable PHYSICIAN, DEFAULT Unavailable Unavailable MATT MIDDLETON Unavailable Unavailable PHYSICIAN, DEFAULT Unavailable Unavailable PHYSICIAN, DEFAULT Unavailable Unavailable MATT MIDDLETON Unavailable Unavailable Shayy Dela Cruz Unavailable JOSE DE JESUS, DR SHAYY eDlgado Primary Care Unavailable MALCOLM EVANS Consulting Unavailable MALCOLM EVANS Attending Unavailable MALCOLM EVANS Admitting Unavailable JOSE DE JESUS, DR SHAYY Delgado Consulting Unavailable DELA CRUZ, DR SHAYY Delgado Attending Unavailable EDLA CRUZ, DR SHAYY Delgado Admitting Unavailable DELA [...] Unavailable DR SHAYY DELA CRUZ Consulting Unavailable Lynne Hernandez Unavailable Cathie Vargas Unavailable MD Shayy Dela Cruz Primary Care Provider MD Shayy Dela Cruz Attending Provider [phone] MD Shayy Dela Cruz Primary Care Provider MD Shayy Dela Cruz Attending Provider FATEMEH Vargas Attending Provider Unavailable Primary Care Provider UnavailNACHO Alcala Attending Unavailable MARQUES MOROCHO Attending Unavailable Cathie Vargas Attending Unavailable Cathie Vargas Admitting Unavailable Jordyn Bruce Admitting Unavailable Jordyn Bruce Attending Unavailable Shayy Dela Cruz Primary Care Unavailable Allergies Allergy Classification Reported Allergen(s) Allergy Type Date of Onset Reaction(s) Facility (1 source) codeine Drug Allergy 9 [facility] (20 sources) Latex; Translations: [LATEX] Drug allergy (disorder) 9 sores on skin [facility] (20 sources) Codeine; Translations: [CODEINE] Drug Allergy 0 nausea [facility] (19 sources) Latex Drug allergy 5 sores on skin [facility] Other (1 source) Codeine Drug Allergy [facility] (8 sources) cat dander Allergy to substance 4 Sneezing, Itching [facility] (8 sources) dog dander Allergy to substance 4 Sneezing, Itching [facility] (8 sources) ozempic Propensity to adverse reactions 4 Vomiting [facility] (3 sources) Insulin Lispro; Translations: [INSULIN LISPRO] Drug Allergy 5 Rash [facility] (3 sources) tomato allergenic extract; Translations: [TOMATO] [facility] Medications Current Medications Medication Drug Class(es) Dates [...] Blood-Glucose Meter,Continuo us (Dexcom G7 Director Of Annual Giving) misc (6 sources) Start: 12-13-2023 Blood-Glucose Meter,Continuous (Dexcom G7 Director Of Annual Giving) misc Active 0 .Route December 12, 2023 11:00pm As directed Start: 12-13-2023 Blood-Glucose Meter,Continuous (Dexcom G7 Director Of Annual Giving) misc Active 0 .Route December 13, 2023 12:00am As directed Start: 12-13-2023 Blood-Glucose Meter,Continuous (Dexcom G7 Director Of Annual Giving) misc Active 0 .ROUTE December 13, 2023 [...] a day Active Dexcom G7 Director Of Annual Giving - (4 sources) Start: 06-03-19 Dexcom G7 Director Of Annual Giving - as directed as directed 4 x daily for 365 days E 11.65, Z 79.4 Jun, Active Dexcom G7 Sensor - (4 sources) Start: 06-03-19 Dexcom G7 Sensor - as directed in [...] Jesus Lucas ( ) FreeStyle Amrik [employer] [place] - (3 sources) Start: 06-06-2023 FreeStyle Libr e 3 [place] - as directed invitro 4 times daily [...] Drug Class(es) Dates Sig (Normalized) Sig (Original) [id number] 200 actuat albuterol 0.09 mg/actuat metered dose [...] Jun, Not-Taking/PRN Blood-Glucose Meter,Continuous (Freestyle [employer] [place]) misc (13 sources) Start: 07-28-2023 End: 12-13-2023 Blood-Glucose Meter,Continuous (Freestyle [employer] [place]) misc Discontinued EACH .ROUTE .MEDSUPPLY July 27, 2023 11:00pm December 13, 2023 12:09pm As directed Start: 07-28-2023 End: 12-13-2023 Blood-Glucose Meter,Continuo us (Freestyle [employer] [place]) misc Discontinued EACH .ROUTE .MEDSUPPLY July 28, 2023 12:00am December 13, 2023 1:09pm As directed Start: 07-28-2023 Blood-Glucose Meter,Continuous (Freestyle Am[employer] 3 [place]) misc Active EACH .ROUTE .MEDSUPPLY July 28, [...] not tolerate Lispro Insulin Glargine U-300 Conc (Bill Gaspar U-300 Insulin) 300 unit/mL (1.5 mL) insulin [...] angina pectoris; Translations: [Atherosclerotic heart disease of [place] coronary artery without angina pectoris] Onset: 07-12-2022 [...] 04-08-2022 Episodic Other aftercare (1 source) 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; Translations: [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 MANAGER CURRENT USE OF ASPIRIN] Onset: 04-08-2022 Episodic Other aftercare (1 source) senior care (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 of oral hypoglycemic drugs; Translations: [[facility] USE ORAL HYPOGLYCEMIC DX] Onset: 04-08-2022 Episodic Other aftercare (1 source) 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; Translations: [OTH WILDLIFE MANAGER CURRENT DRUG THERAPY] Onset: 11-09-2021 Episodic Other [...] Range Facility Orders Onlyon 06-25-2024 Orders Only [id number] Zoila Ramos 1970 F Date Provider Department Center 06/25/2024 JESSICA MAX MADELYN [facility] No family history on file Normal [facility] Office Visiton 06-19-2024 Follow-up visit [id number] Zoila Ramos 1970 F Date Provider Department Center 06/19/2024 MARQUES MCINTYRE MADELYN [facility] No family history on file Level of Service:11108 MD OFFICE/OUTPATIENT ESTABLISHED MOD MDM 30 MIN Normal [facility] Basophils Auto (Bld) [#/Vol] on 05-16-2024 Basophils (Bld) [#/Vol] Automated basophil count 0.0-0.1 [facility] Basophils/100 WBC Auto (Bld) on 05-16-2024 Basophils/100 WBC (Bld) Automated basophil % 0.2-2.0 [facility] Eosinophils/100 WBC Auto (Bl d)on 05-16-2024 Eosinophils/100 WBC (Bld) Automated eosinophil % 0.9-7.0 [facility] Erythrocyte distribution wid th Auto (RBC) [Ratio]on 05-16-2024 Erythrocyte distribution width (RBC) [Ratio] Erythrocyte distribution width [Ratio] by Automated count 11.0-15.0 [facility] Estimated glomerular filtrat ion rate (GFR) non- Americanon 05-16-2024 GFR/1.73 sq M.predicted among non-blacks MDRD (S/P/Bld) [Vol rate/Area] Estimated glomerular filtration rate (GFR) non- Low >=60 mL/min/1.73m 2 [facility] Hematocrit Auto (Bld) [Volum e fraction]on 05-16-2024 Hematocrit (Bld) [Volume fraction] Hematocrit [Volume Fraction] of Blood by Automated count 36.0-48.0 [facility] Hemoglobin [Mass/volume] in Bloodon 05-16-2024 Hemoglobin (Bld) [Mass/Vol] Hemoglobin [Mass/volume] in Blood 12.0-16.0 [facility] Laboratory - Chemistry and C hemistry - challengeon 05-16-2024 Calcium [Mass/Vol] 9.1 mg/dL 8.5-10.1 [facility] Chloride [Moles/Vol] 104 mmol/L 98-107 [facility] CO2 [Moles/Vol] 30.6 mmol/L 21.0-32.0 [facility] Creatinine [Mass/Vol] 1.01 mg/dL 0.55-1.02 [facility] GFR/1.73 sq M.predicted MDRD (S/P/Bld) [Vol rate/Area] mL/min/{1.73_m2} >=60 mL/min/1.73m 2 [facility] Glucose [Mass/Vol] 206 mg/dL High 74-106 [facility] Potassium [Moles/Vol] 5.1 mmol/L 3.5-5.1 [facility] Sodium [Moles/Vol] 141 mmol/L 136-145 [facility] Urea nitrogen [Mass/Vol] 12.0 mg/dL 7.0-18.0 [facility] Urea nitrogen/Creatinine [Mass ratio] 11.9 mg/mg [facility] Laboratory - Hematology and Cell countson 05-16-2024 ESR (Bld) [Velocity] 28 mm/h <=30 [facility] Immature granulocytes/100 WBC (Bld) 0.3 % 0.0-0.5 [facility] Leukocytes [#/volume] correc alma delia for nucleated erythrocytes in Blood by Automated counon 05-16-2024 WBC corrected for nucl RBC Auto (Bld) [#/Vol] Leukocytes [#/volume] corrected for nucleated erythrocytes in Blood by Automated coun 4.0-11.0 [facility] Lymphocytes Auto (Bld) [#/Vo l]on 05-16-2024 Lymphocytes (Bld) [#/Vol] Lymphocytes [#/volume] in Blood by Automated count 1.2-3.8 [facility] Lymphocytes/100 WBC Auto (Bl d)on 05-16-2024 Lymphocytes/100 WBC (Bld) Lymphocytes/100 leukocytes in Blood by Automated count 20.5-60.0 [facility] MCH Auto (RBC) [Entitic mass ]on 05-16-2024 MCH (RBC) [Entitic mass] MCH [Entitic mass] by Automated count 26.7-34.0 [facility] MCHC Auto (RBC) [Mass/Vol]on 05-16-2024 MCHC (RBC) [Mass/Vol] MCHC [Mass/volume] by Automated count 29.9-35.2 [facility] MCV Auto (RBC) [Entitic vol] on 05-16-2024 MCV (RBC) [Entitic vol] MCV [Entitic volume] by Automated count 81.0-99.0 [facility] Monocytes Auto (Bld) [#/Vol] on 05-16-2024 Monocytes (Bld) [#/Vol] Automated blood monocyte count 0.3-0.8 [facility] Monocytes/100 WBC Auto (Bld) on 05-16-2024 Monocytes/100 WBC (Bld) Automated monocyte % 1.7-12.0 [facility] Neutrophils Auto (Bld) [#/Vo l]on 05-16-2024 Neutrophils (Bld) [#/Vol] Neutrophils [#/volume] in Blood by Automated count 1.4-6.5 [facility] Neutrophils/100 WBC Auto (Bl d)on 05-16-2024 Neutrophils/100 WBC (Bld) Automated neutrophil % 43.0-75.0 [facility] No Panel Informationon 01-15 -2025 C-Reactive Protein, Quantitative 1.26 mg/dL High <=0.50 [facility] Eosinophils # (Auto) 0.3 10 3/uL 0.0-0.7 [facility] Immature Granulocyte # (Auto) 0.02 10 3/uL 0.00-0.03 [facility] Platelet mean volume Auto (B ld) [Entitic vol]on 05-16-2024 Platelet mean volume (Bld) [Entitic vol] Platelet mean volume [Entitic volume] in Blood by Automated count 9.5-13.5 [facility] Platelets Auto (Bld) [#/Vol] on 05-16-2024 Platelets (Bld) [#/Vol] Platelets [#/volume] in Blood by Automated count 150-450 [facility] RBC Auto (Bld) [#/Vol]on RBC (Bld) [#/Vol] Erythrocytes [#/volume] in Blood by Automated count 4.20-5.40 [facility] Serum or plasma anion gap de terminationon 05-16-2024 Anion gap [Moles/Vol] Serum or plasma anion gap determination [facility] Creatinine [Mass/volume] in UrineOrdered By: Cathie Vargas on 02-23-2024 Creatinine (U) [Mass/Vol] 28.00 mg/dL [facility] Comment on above: No reference range e stablished MicroAlb Creat Ratio,Uon Creatinine, Urine (Random) 28.00 mg/dL Normal [facility] Comment on above: Result Comment: No r eference range established Performed By: #### U RMACRERAT #### [facility] [address] [place] [address] Microalbumin/Creatin ine Ratio Not performed Normal 0.0-30.0 [facility] Comment on above: Result Comment: PERF ORMED BY: [place] [address] PATHOLOGIST CUSTOMER SERVICES MANAGER RUBINA RICCI M.D. Performed By: #### U RMACRERAT #### [facility] [address] [place] [address] [place] Microalbumin [Mass/volume] i n UrineOrdered By: Cathie Vargas on 02-23-2024 Albumin DL <= 20 mg/L (U) [Mass/Vol] mg/dL Normal 0.0-1.8 [facility] Comment on above: Performed By: #### U RMACRERAT #### [address] Urine microalbumin/creatinin e mass ratioOrdered By: Cathie Vargas on 02-23-2024 Albumin/Creatinine DL <= 20 mg/L (U) [Mass ratio] TNP [facility] Comment on above: Test not performed HbA1c HPLC (Bld) [Mass fract ion]on 12-13-2023 HbA1c (Bld) [Mass fraction] 9.9 % [facility] No Panel Informationon 12-12 Bedside Glucose 118 [facility] No Panel Informationon 09-28 Bedside Glucose 278 [facility] HbA1c HPLC (Bld) [Mass fract ion]on 07-28-2023 HbA1c (Bld) [Mass fraction] 10.3 % [facility] No Panel Informationon 07-27 Bedside Glucose 126 [facility] Basophils Auto (Bld) [#/Vol] on 07-12-2023 Basophils (Bld) [#/Vol] 0.0 10 3/uL 0.0-0.1 [facility] Basophils/100 WBC Auto (Bld) on 07-12-2023 Basophils/100 WBC (Bld) 0.5 % 0.2-2.0 [facility] Eosinophils/100 WBC Auto (Bl d)on 07-12-2023 Eosinophils/100 WBC (Bld) 1.5 % 0.9-7.0 [facility] Erythrocyte distribution wid th Auto (RBC) [Ratio]on 07-12-2023 Erythrocyte distribution width (RBC) [Ratio] 12.7 % 11.0-15.0 [facility] Estimated glomerular filtrat ion rate (GFR) non- Americanon 07-12-2023 GFR/1.73 sq M.predicted among non-blacks MDRD (S/P/Bld) [Vol rate/Area] mL/min/{1.73_m2} >=60 [facility] Hematocrit Auto (Bld) [Volum e fraction]on 07-12-2023 Hematocrit (Bld) [Volume fraction] 42.8 % 36.0-48.0 [facility] Hemoglobin [Mass/volume] in Bloodon 07-12-2023 Hemoglobin (Bld) [Mass/Vol] 14.3 g/dL 12.0-16.0 [facility] Laboratory - Chemistry and C hemistry - challengeon 07-12-2023 Calcium [Mass/Vol] 9.1 mg/dL 8.5-10.1 [facility] Chloride [Moles/Vol] 100 mmol/L 98-107 [facility] CO2 [Moles/Vol] 26.1 mmol/L 21.0-32.0 [facility] Creatinine [Mass/Vol] 0.78 mg/dL 0.55-1.02 [facility] GFR/1.73 sq M.predicted MDRD (S/P/Bld) [Vol rate/Area] mL/min/{1.73_m2} >=60 [facility] Glucose [Mass/Vol] 215 mg/dL 74-106 [facility] Potassium [Moles/Vol] 4.0 mmol/L 3.5-5.1 [facility] Sodium [Moles/Vol] 137 mmol/L 136-145 [facility] Urea nitrogen [Mass/Vol] 12.0 mg/dL 7.0-18.0 [facility] Urea nitrogen/Creatinine [Mass ratio] 15.4 mg/mg [facility] Laboratory - Hematology and Cell countson 07-12-2023 Immature granulocytes/100 WBC (Bld) 0.1 % 0.0-0.5 [facility] Leukocytes [#/volume] correc alma delia for nucleated erythrocytes in Blood by Automated counon 07-12-2023 WBC corrected for nucl RBC Auto (Bld) [#/Vol] 7.8 10 3/uL 4.0-11.0 [facility] Lymphocytes Auto (Bld) [#/Vo l]on 07-12-2023 Lymphocytes (Bld) [#/Vol] 2.7 10 3/uL 1.2-3.8 [facility] Lymphocytes/100 WBC Auto (Bl d)on 07-12-2023 Lymphocytes/100 WBC (Bld) 34.1 % 20.5-60.0 [facility] MCH Auto (RBC) [Entitic mass ]on 07-12-2023 MCH (RBC) [Entitic mass] 29.2 pg 26.7-34.0 [facility] MCHC Auto (RBC) [Mass/Vol]on 07-12-2023 MCHC (RBC) [Mass/Vol] 33.4 g/dL 29.9-35.2 [facility] MCV Auto (RBC) [Entitic vol] on 07-12-2023 MCV (RBC) [Entitic vol] 87.5 fL 81.0-99.0 [facility] Monocytes Auto (Bld) [#/Vol] on 07-12-2023 Monocytes (Bld) [#/Vol] 0.5 10 3/uL 0.3-0.8 [facility] Monocytes/100 WBC Auto (Bld) on 07-12-2023 Monocytes/100 WBC (Bld) 6.4 % 1.7-12.0 [facility] Neutrophils Auto (Bld) [#/Vo l]on 07-12-2023 Neutrophils (Bld) [#/Vol] 4.5 10 3/uL 1.4-6.5 [facility] Neutrophils/100 WBC Auto (Bl d)on 07-12-2023 Neutrophils/100 WBC (Bld) 57.4 % 43.0-75.0 [facility] No Panel Informationon 07-11 Eosinophils # (Auto) 0.1 10 3/uL 0.0-0.7 [facility] Immature Granulocyte # (Auto) 0.01 10 3/uL 0.00-0.03 [facility] Platelet mean volume Auto (B ld) [Entitic vol]on 07-12-2023 Platelet mean volume (Bld) [Entitic vol] 10.9 fL 9.5-13.5 [facility] Platelets Auto (Bld) [#/Vol] on 07-12-2023 Platelets (Bld) [#/Vol] 259 10 3/uL 150-450 [facility] RBC Auto (Bld) [#/Vol]on RBC (Bld) [#/Vol] 4.89 10 6/uL 4.20-5.40 [facility] Serum or plasma anion gap de terminationon 07-12-2023 Anion gap [Moles/Vol] 14.9 mmol/L [facility] Glucose - FINGER STICKon Glucose [Mass/Vol] 360 mg/dL [facility] Other CBC AUTO DIFFon 08-27-2022 BASO # 0.0 103/ul Normal 0.0-0.1 [facility] Comment on above: Performed By: #### C BC #### [facility] [address] [place] [address] Dr. Sarah Church Basophils/100 WBC (Bld) 0.5 % Normal 0.2-2.0 [facility] Comment on above: Performed By: #### C BC #### [facility] [address] [place] [address] Dr. Sarah Church EO # 0.2 103/ul Normal 0.0-0.7 [facility] Comment on above: Performed By: #### C BC #### [facility] [address] [place] [address] Dr. Sarah Church Eosinophils/100 WBC (Bld) 2.2 % Normal 0.9-7.0 [facility] Comment on above: Performed By: #### C BC #### [facility] [address] [place] [address] Dr. Sarah Church Erythrocyte distribution width (RBC) [Ratio] 12.5 % Normal 11.0-15.0 [facility] Comment on above: Performed By: #### C BC #### [facility] [address] [place] [address] Dr. Sarah Church Hematocrit (Bld) [Volume fraction] 44.1 % Normal 36.0-48.0 [facility] Comment on above: Performed By: #### C BC #### [facility] [address] [place] [address] Dr. Sarah Church Hemoglobin (Bld) [Mass/Vol] 15.1 g/dL Normal 12.0-16.0 [facility] Comment on above: Performed By: #### C BC #### [facility] [address] [place] [address] Dr. Sarah Church IG # 0.02 10e3/ul Normal 0.00-0.03 [facility] Comment on above: Performed By: #### C BC #### [facility] [address] [place] [address] Dr. Sarah Church IG % 0.2 % Normal 0.0-0.5 [facility] Comment on above: Performed By: #### C BC #### [facility] [address] [place] [address] Dr. Sarah Church LYMPH # 2.9 103/ul Normal 1.2-3.8 [facility] Comment on above: Performed By: #### C BC #### [facility] [address] [place] [address] Dr. Sarah Church Lymphocytes/100 WBC (Bld) 33.4 % Normal 20.5-60.0 [facility] Comment on above: Performed By: #### C BC #### [facility] [address] [place] [address] Dr. Sarah Church MANUAL DIFF REQ NO Normal [facility] Comment on above: Performed By: #### C BC #### [facility] [address] [place] [address] Dr. Sarah Church MCH (RBC) [Entitic mass] 29.1 pg Normal 26.7-34.0 [facility] Comment on above: Performed By: #### C BC #### [facility] [address] [place] [address] Dr. Sarah Church MCHC (RBC) [Mass/Vol] 34.2 g/dL Normal 29.9-35.2 [facility] Comment on above: Performed By: #### C BC #### [facility] [address] [place] [address] Dr. Sarah Church MCV (RBC) [Entitic vol] 85.0 fL Normal 81.0-99.0 [facility] Comment on above: Performed By: #### C BC #### [facility] [address] [place] [address] Dr. Sarah Church MONO # 0.6 103/ul Normal 0.3-0.8 [facility] Comment on above: Performed By: #### C BC #### [facility] [address] [place] [address] Dr. Sarah Church Monocytes/100 WBC (Bld) 6.8 % Normal 1.7-12.0 [facility] Comment on above: Performed By: #### C BC #### [facility] [address] [place] [address] Dr. Sarah Church NEUT # 4.9 103/ul Normal 1.4-6.5 [facility] Comment on above: Performed By: #### C BC #### [facility] [address] [place] [address] Dr. Sarah Church Neutrophils/100 WBC (Bld) 56.9 % Normal 43.0-75.0 [facility] Comment on above: Performed By: #### C BC #### [facility] [address] [place] [address] Dr. Sarah Church Platelet mean volume (Bld) [Entitic vol] 10.8 fL Normal 9.5-13.5 [facility] Comment on above: Performed By: #### C BC #### [facility] [address] [place] [address] Dr. Sarah Church PLT 276 103/ul Normal 150-450 [facility] Comment on above: Performed By: #### C BC #### [facility] [address] [place] [address] Dr. Sarah Church RBC 5.19 106/ul Normal 4.20-5.40 [facility] Comment on above: Performed By: #### C BC #### [facility] [address] [place] [address] Dr. Sarah Church WBC 8.6 103/ul Normal 4.0-11.0 [facility] Comment on above: Performed By: #### C BC #### [facility] [address] [address] [address] Sarah Church LIPID PROFILEon 08-27-2022 CHOL-HDL RATIO NORM SEE BELOW Normal [facility] Comment on above: Result Comment: 3.3 - 4.4 LOW RISK 4.4 - 7.1 AVERAGE RISK 7.1 - 11.0 MODERATE RISK >11.0 HIGH RISK Performed By: #### L IPID, CMP #### [facility] [address] [address] [address] Sarah Church Cholesterol [Mass/Vol] 110 mg/dL Normal <=200 [facility] Comment on above: Performed By: #### L IPID, CMP #### [facility] [address] [address] [address] Sarah Church Cholesterol in HDL [Mass/Vol] 33 mg/dL Critically low 40-60 [facility] Comment on above: Performed By: #### L IPID, CMP #### [facility] [address] [address] [address] Sarah Church Cholesterol in LDL [Mass/Vol] 58.0 mg/dL Normal [facility] Comment on above: Performed By: #### L IPID, CMP #### [facility] [address] [address] [address] Sraah Church Cholesterol.total/Ch olesterol in HDL [Mass ratio] 3.3 {ratio} Normal [facility] Comment on above: Performed By: #### L IPID, CMP #### [facility] [address] [address] [address] Sarah Church HDL NORMAL > or = 60 mg/dl - LOW CARDIOVASCULAR RISK <40 mg/dl - HIGH CARDIOVASCULAR RISK Normal [facility] Comment on above: Performed By: #### L IPID, CMP #### [facility] [address] [place] [address] Dr. Sarah Church LDL CALC NORMAL SEE BELOW Normal [facility] Comment on above: Result Comment: <100 mg/dl OPTIMAL 100 - 129 mg/dl NEAR OR ABOVE OPTIMAL 130 - 159 mg/dl BORDERLINE HIGH 160 - 189 mg/dl HIGH >190 mg/dl VERY HIGH Performed By: #### L IPID, CMP #### [facility] [address] [place] [address] Dr. Sarah Church Triglyceride [Mass/Vol] 95 mg/dL Normal <=150 [facility] Comment on above: Performed By: #### L IPID, CMP #### [facility] [address] [place] [address] Dr. Sarah Church VLDL CALC 19.0 mg/dL Normal [facility] Comment on above: Performed By: #### L IPID, CMP #### [facility] [address] [place] [address] Dr. Sarah Church PROF 14(COMP METB)on 023 Albumin [Mass/Vol] 3.3 g/dL Critically low 3.4-5.0 [facility] Comment on above: Performed By: #### L IPID, CMP #### [facility] [address] [place] [address] Dr. Sarah Church Albumin/Globulin [Mass ratio] 0.8 {ratio} Normal [facility] Comment on above: Performed By: #### L IPID, CMP #### [facility] [address] [place] [address] Dr. Sarah Church ALP [Catalytic activity/Vol] 100 U/L Normal 46-116 [facility] Comment on above: Performed By: #### L IPID, CMP #### [facility] [address] [place] [address] Dr. Sarah Church ALT [Catalytic activity/Vol] 74 U/L Critically high 14-59 [facility] Comment on above: Performed By: #### L IPID, CMP #### [facility] [address] [place] [address] Dr. Sarah Church Anion gap [Moles/Vol] 13.2 mmol/L Normal [facility] Comment on above: Performed By: #### L IPID, CMP #### [facility] [address] [place] [address] Dr. Sarah Church AST [Catalytic activity/Vol] 42 U/L Critically high 15-37 [facility] Comment on above: Performed By: #### L IPID, CMP #### [facility] [address] [place] [address] Dr. Sarah Church Bilirubin [Mass/Vol] 0.4 mg/dL Normal 0.2-1.0 [facility] Comment on above: Performed By: #### L IPID, CMP #### [facility] [address] [place] [address] Dr. Sarah Church Calcium [Mass/Vol] 9.2 mg/dL Normal 8.5-10.1 [facility] Comment on above: Performed By: #### L IPID, CMP #### [facility] [address] [place] [address] Dr. Sarah Church Chloride [Moles/Vol] 99 mmol/L Normal 98-107 [facility] Comment on above: Performed By: #### L IPID, CMP #### [facility] [address] [place] [address] Dr. Sarah Church CO2 [Moles/Vol] 30.4 mmol/L Normal 21.0-32.0 [facility] Comment on above: Performed By: #### L IPID, CMP #### [facility] [address] [place] [address] Dr. Sarah Church Creatinine [Mass/Vol] 0.78 mg/dL Normal 0.55-1.02 [facility] Comment on above: Performed By: #### L IPID, CMP #### [facility] [address] [place] [address] Dr. Sarah Church EGFR-AF URUGUAYAN >60 Normal >=60 [facility] Comment on above: Performed By: #### L IPID, CMP #### [facility] [address] [place] [address] Dr. Sarah Church EGFR-NON AF URUGUAYAN >60 Normal >=60 [facility] Comment on above: Performed By: #### L IPID, CMP #### [facility] [address] [place] [address] Dr. Sarah Church Globulin (S) [Mass/Vol] 4.0 g/dL Normal [facility] Comment on above: Performed By: #### L IPID, CMP #### [facility] [address] [place] [address] Dr. Sarah Church Glucose [Mass/Vol] 255 mg/dL Critically high 74-106 [facility] Comment on above: Performed By: #### L IPID, CMP #### [facility] [address] [place] [address] Dr. Sarah Church Potassium [Moles/Vol] 3.6 mmol/L Normal 3.5-5.1 [facility] Comment on above: Performed By: #### L IPID, CMP #### [facility] [address] [place] [address] Dr. Sarah Church Protein [Mass/Vol] 7.3 g/dL Normal 6.4-8.2 [facility] Comment on above: Performed By: #### L IPID, CMP #### [facility] [address] [place] [address] Dr. Sarah Church Sodium [Moles/Vol] 139 mmol/L Normal 136-145 [facility] Comment on above: Performed By: #### L IPID, CMP #### [facility] [address] [place] [address] Dr. Sarah Church Urea nitrogen [Mass/Vol] 8.0 mg/dL Normal 7.0-18.0 [facility] Comment on above: Performed By: #### L IPID, CMP #### [facility] [address] [place] [address] Dr. Sarah Church Urea nitrogen/Creatinine [Mass ratio] 10.3 mg/mg Normal [facility] Comment on above: Performed By: #### L IPID, CMP #### [facility] [address] [place] [address] Dr. Sarah Church MG MAMM SCREEN 3D ROB CADon 07-20-2022 MG MAMM SCREEN 3D ROB CAD Patient: ZOILA RAMOS Exam Date: 07/20/2022 : 1970 Gender:F Ordering : DR SHAYY DELA CRUZ M.D. Admission #: [id number] Family : Order #: [id number] CLICK HERE TO VIEW EXAM RADIOLOGY REPORT PROCEDURE: MAMMOGRAM SCREENING 3D BILATERAL CAD COMPARISON: MAMMO ROB SCREEN W CAD DIG, 05/16/2012. INDICATIONS: Screening mammography Calculator Name NCI Breast Cancer Risk Assessment Tool 5 Year Breast Cancer Risk 1.20% Lifetime Breast Cancer Risk 10.80% Personal Breast Cancer No Personal Ovarian Cancer No Treatments None Family Cancers None LOCATION: [facility] BREAST COMPOSITION: Almost entirely fatty. [...] M.D. on 07/21/2022 at 08:24 Normal [facility] PROF CHEM 8 (BAS METB)on Anion gap [Moles/Vol] 14.5 mmol/L Normal [facility] Comment on above: Performed By: #### B MP #### [facility] [address] [place] [address] Dr. Sarah Church Calcium [Mass/Vol] 9.8 mg/dL Normal 8.5-10.1 [facility] Comment on above: Performed By: #### B MP #### [facility] [address] [address] [address] Sarah Church Chloride [Moles/Vol] 99 mmol/L Normal 98-107 [facility] Comment on above: Performed By: #### B MP #### [facility] [address] [address] [address] Sarah Church CO2 [Moles/Vol] 27.2 mmol/L Normal 21.0-32.0 [facility] Comment on above: Performed By: #### B MP #### [facility] [address] [address] [address] Sarah Church Creatinine [Mass/Vol] 0.80 mg/dL Normal 0.55-1.02 [facility] Comment on above: Performed By: #### B MP #### [facility] [address] [address] [address] Sarah Church EGFR-AF URUGUAYAN >60 Normal >=60 [facility] Comment on above: Performed By: #### B MP #### [facility] [address] [address] [address] Sarah Church EGFR-NON AF URUGUAYAN >60 Normal >=60 [facility] Comment on above: Performed By: #### B MP #### [facility] [address] [address] [address] Sarah Church Glucose [Mass/Vol] 458 mg/dL Critically high 74-106 [facility] Comment on above: Performed By: #### B MP #### [facility] [address] [address] [address] Sarah Church Potassium [Moles/Vol] 4.7 mmol/L Normal 3.5-5.1 [facility] Comment on above: Performed By: #### B MP #### [facility] [address] [address] [address] Sarah Church Sodium [Moles/Vol] 136 mmol/L Normal 136-145 [facility] Comment on above: Performed By: #### B MP #### [facility] [address] [address] [address] Sarah Church Urea nitrogen [Mass/Vol] 15.0 mg/dL Normal 7.0-18.0 [facility] Comment on above: Performed By: #### B MP #### [facility] [address] [address] [address] Sarah Church Urea nitrogen/Creatinine [Mass ratio] 18.8 mg/mg Normal [facility] Comment on above: Performed By: #### B MP #### [facility] [address] [address] [address] Sarah Church GLYCOHEMOGLOBIN A1Con 2022 ADA RECOMMENDATION SEE BELOW Normal [facility] Comment on above: Result Comment: ADA RECOMMENDED LIMIT 4.0 - 6.0 ADA THERAPEUTIC TARGET < 7.0 ACTION SUGGESTED > 7.0 Performed By: #### A 1C ####[facility] [address] [id number] Church Glucose [Mass/Vol] 266 mg/dL Normal [facility] Comment on above: Performed By: #### A 1C ####[facility] [address] [address]DrCoretta Church HbA1c (Bld) [Mass fraction] 10.9 % Critically high 4.5-6.2 [facility] Comment on above: Performed By: #### A 1C ####[facility] [address] [address]DrCoretta Church XR HIP RT 2 3V W [...] JAVAD ROB Date: 2022-04-06 21:15 Normal [facility] CBC AUTO DIFFon 11-05-2021 BASO # 0.1 103/ul Normal 0.0-0.1 [facility] Comment on above: Performed By: #### C BC #### [facility] [address] [place] [address] Dr. Sarah Church Basophils/100 WBC (Bld) 0.4 % Normal 0.2-2.0 [facility] Comment on above: Performed By: #### C BC #### [facility] [address] [address] [address] Sarah Church EO # 0.2 103/ul Normal 0.0-0.7 [facility] Comment on above: Performed By: #### C BC #### [facility] [address] [address] [address] Sarah Church Eosinophils/100 WBC (Bld) 1.3 % Normal 0.9-7.0 [facility] Comment on above: Performed By: #### C BC #### [facility] [address] [place] [address] Dr. Sarah Church Erythrocyte distribution width (RBC) [Ratio] 12.3 % Normal 11.0-15.0 [facility] Comment on above: Performed By: #### C BC #### [facility] [address] [place] [address] Dr. Sarah Church Hematocrit (Bld) [Volume fraction] 43.1 % Normal 36.0-48.0 [facility] Comment on above: Performed By: #### C BC #### [facility] [address] [place] [address] Dr. Sarah Church Hemoglobin (Bld) [Mass/Vol] 14.6 g/dL Normal 12.0-16.0 [facility] Comment on above: Performed By: #### C BC #### [facility] [address] [place] [address] Dr. Sarah Church IG # 0.04 10e3/ul Critically high 0.00-0.03 [facility] Comment on above: Performed By: #### C BC #### [facility] [address] [place] [address] Dr. Sarah Church IG % 0.3 % Normal 0.0-0.5 [facility] Comment on above: Performed By: #### C BC #### [facility] [address] [place] [address] Dr. Sarah Church LYMPH # 1.6 103/ul Normal 1.2-3.8 [facility] Comment on above: Performed By: #### C BC #### [facility] [address] [place] [address] Dr. Sarah Church Lymphocytes/100 WBC (Bld) 12.5 % Critically low 20.5-60.0 [facility] Comment on above: Performed By: #### C BC #### [facility] [address] [place] [address] Dr. Sarah Church MANUAL DIFF REQ NO Normal [facility] Comment on above: Performed By: #### C BC #### [facility] [address] [address] [address] Sarah Church MCH (RBC) [Entitic mass] 29.4 pg Normal 26.7-34.0 [facility] Comment on above: Performed By: #### C BC #### [facility] [address] [address] [address] Sarah Church MCHC (RBC) [Mass/Vol] 33.9 g/dL Normal 29.9-35.2 [facility] Comment on above: Performed By: #### C BC #### [facility] [address] [address] [address] Sarah Church MCV (RBC) [Entitic vol] 86.7 fL Normal 81.0-99.0 [facility] Comment on above: Performed By: #### C BC #### [facility] [address] [place] [address] Dr. Sarah Church MONO # 1.0 103/ul Critically high 0.3-0.8 [facility] Comment on above: Performed By: #### C BC #### [facility] [address] [place] [address] Dr. Sarah Church Monocytes/100 WBC (Bld) 7.7 % Normal 1.7-12.0 [facility] Comment on above: Performed By: #### C BC #### [facility] [address] [place] [address] Dr. Sarah Church NEUT # 9.6 103/ul Critically high 1.4-6.5 [facility] Comment on above: Performed By: #### C BC #### [facility] [address] [place] [address] Dr. Sarah Church Neutrophils/100 WBC (Bld) 77.8 % Critically high 43.0-75.0 [facility] Comment on above: Performed By: #### C BC #### [facility] [address] [place] [address] Dr. Sarah Church Platelet mean volume (Bld) [Entitic vol] 11.0 fL Normal 9.5-13.5 [facility] Comment on above: Performed By: #### C BC #### [facility] [address] [address] [address] Sarah Church PLT 220 103/ul Normal 150-450 [facility] Comment on above: Performed By: #### C BC #### [facility] [address] [place] [address] Dr. Sarah Church RBC 4.97 106/ul Normal 4.20-5.40 [facility] Comment on above: Performed By: #### C BC #### [facility] [address] [place] [address] Dr. Sarah Church WBC 12.4 103/ul Critically high 4.0-11.0 [facility] Comment on above: Performed By: #### C BC #### [facility] [address] [place] [address] Dr. Sarah Church GROUP A STREP CULTUREon S. pyogenes Ag Ql (Unsp spec) Culture Observations: NEGATIVE FOR GROUP A STREPTOCOCCUS. Normal [facility] Comment on above: Performed By: #### G RASTCX, SSCRN ####[facility] [address] [address]Dr. Sarah Church POINT OF CARE GLUCOSEon Glucose [Mass/Vol] 214 mg/dL Critically high 74-106 [facility] Comment on above: Performed By: #### P OCGLUC #### [facility] [address] [place] [address] Dr. Sarah Church STREPT SCREENon 11-05-2021 STREP SCREEN A Negative Normal NEGATIVE [facility] Comment on above: Performed By: #### G RASTCX, SSCRN ####[facility] [address] [address]Dr. Sarah Church CBC AUTO DIFFon 10-16-2021 BASO # 0.1 103/ul Normal 0.0-0.1 [facility] Comment on above: Performed By: #### C BC #### [facility] [address] [place] [address] Dr. Sarah Church Basophils/100 WBC (Bld) 0.8 % Normal 0.2-2.0 [facility] Comment on above: Performed By: #### C BC #### [facility] [address] [place] [address] Dr. Sarah Church EO # 0.3 103/ul Normal 0.0-0.7 [facility] Comment on above: Performed By: #### C BC #### [facility] [address] [place] [address] Dr. Sarah Church Eosinophils/100 WBC (Bld) 3.4 % Normal 0.9-7.0 [facility] Comment on above: Performed By: #### C BC #### [facility] [address] [place] [address] Dr. Sarah Church Erythrocyte distribution width (RBC) [Ratio] 12.6 % Normal 11.0-15.0 [facility] Comment on above: Performed By: #### C BC #### [facility] [address] [place] [address] Dr. Sarah Church Hematocrit (Bld) [Volume fraction] 45.4 % Normal 36.0-48.0 [facility] Comment on above: Performed By: #### C BC #### [facility] [address] [place] [address] Dr. Sarah Church Hemoglobin (Bld) [Mass/Vol] 15.0 g/dL Normal 12.0-16.0 [facility] Comment on above: Performed By: #### C BC #### [facility] [address] [place] [address] Dr. Sarah Church IG # 0.02 10e3/ul Normal 0.00-0.03 [facility] Comment on above: Performed By: #### C BC #### [facility] [address] [place] [address] Dr. Sarah Church IG % 0.2 % Normal 0.0-0.5 [facility] Comment on above: Performed By: #### C BC #### [facility] [address] [place] [address] Dr. Sarah Church LYMPH # 2.7 103/ul Normal 1.2-3.8 [facility] Comment on above: Performed By: #### C BC #### [facility] [address] [place] [address] Dr. Sarah Church Lymphocytes/100 WBC (Bld) 31.0 % Normal 20.5-60.0 [facility] Comment on above: Performed By: #### C BC #### [facility] [address] [place] [address] Dr. Sarah Church MANUAL DIFF REQ NO Normal [facility] Comment on above: Performed By: #### C BC #### [facility] [address] [place] [address] Dr. Sarah Church MCH (RBC) [Entitic mass] 29.3 pg Normal 26.7-34.0 [facility] Comment on above: Performed By: #### C BC #### [facility] [address] [place] [address] Dr. Sarah Church MCHC (RBC) [Mass/Vol] 33.0 g/dL Normal 29.9-35.2 [facility] Comment on above: Performed By: #### C BC #### [facility] [address] [place] [address] Dr. Sarah Church MCV (RBC) [Entitic vol] 88.7 fL Normal 81.0-99.0 [facility] Comment on above: Performed By: #### C BC #### [facility] [address] [place] [address] Dr. Sarah Church MONO # 0.6 103/ul Normal 0.3-0.8 [facility] Comment on above: Performed By: #### C BC #### [facility] [address] [place] [address] Dr. Sarah Church Monocytes/100 WBC (Bld) 6.5 % Normal 1.7-12.0 [facility] Comment on above: Performed By: #### C BC #### [facility] [address] [place] [address] Dr. Sarah Church NEUT # 5.0 103/ul Normal 1.4-6.5 [facility] Comment on above: Performed By: #### C BC #### [facility] [address] [address] [address] Sarah Church Neutrophils/100 WBC (Bld) 58.1 % Normal 43.0-75.0 [facility] Comment on above: Performed By: #### C BC #### [facility] [address] [address] [address] Sarah Church Platelet mean volume (Bld) [Entitic vol] 11.0 fL Normal 9.5-13.5 [facility] Comment on above: Performed By: #### C BC #### [facility] [address] [address] [address] Sarah Church PLT 226 103/ul Normal 150-450 [facility] Comment on above: Performed By: #### C BC #### [facility] [address] [address] [address] Sarah Church RBC 5.12 106/ul Normal 4.20-5.40 [facility] Comment on above: Performed By: #### C BC #### [facility] [address] [address] [address] Sarah Church WBC 8.6 103/ul Normal 4.0-11.0 [facility] Comment on above: Performed By: #### C BC #### [facility] [address] [address] [address] Sarah Church GLYCOHEMOGLOBIN A1Con 2021 ADA RECOMMENDATION SEE BELOW Normal [facility] Comment on above: Result Comment: ADA RECOMMENDED LIMIT 4.0 - 6.0 ADA THERAPEUTIC TARGET < 7.0 ACTION SUGGESTED > 7.0 Performed By: #### A 1C ####[facility] [address] [address]Dr. Sarah Church Glucose [Mass/Vol] 275 mg/dL Normal [facility] Comment on above: Performed By: #### A 1C ####[facility] [address] [id number]. Sarah Church HbA1c (Bld) [Mass fraction] 11.2 % Critically high 4.5-6.2 [facility] Comment on above: Performed By: #### A 1C ####[facility] [address] [place], [place] [address]Ht. Sarah Church LIPID PROFILEon 10-16-2021 CHOL-HDL RATIO NORM SEE BELOW Normal [facility] Comment on above: Result Comment: 3.3 - 4.4 LOW RISK 4.4 - 7.1 AVERAGE RISK 7.1 - 11.0 MODERATE RISK >11.0 HIGH RISK Performed By: #### L IPID, CMP ####[facility] [address] [place], [place] [address]Lg. Sarah Church Cholesterol [Mass/Vol] 159 mg/dL Normal <=200 [facility] Comment on above: Performed By: #### L IPID, CMP ####[facility] [address] [place], [place] [address]Uj. Sarah Church Cholesterol in HDL [Mass/Vol] 41 mg/dL Normal 40-60 [facility] Comment on above: Performed By: #### L IPID, CMP ####[facility] [address] [place], [place] [address]Uc. Sarah Church Cholesterol in LDL [Mass/Vol] 102.6 mg/dL Normal [facility] Comment on above: Performed By: #### L IPID, CMP ####[facility] [address] [place], [place] [address]Ec. Sarah Church Cholesterol.total/Ch olesterol in HDL [Mass ratio] 3.9 {ratio} Normal [facility] Comment on above: Performed By: #### L IPID, CMP ####[facility] [address] [place], [place] [address]Zx. Sarah Church HDL NORMAL > or = 60 mg/dl - LOW CARDIOVASCULAR RISK <40 mg/dl - HIGH CARDIOVASCULAR RISK Normal [facility] Comment on above: Performed By: #### L IPID, CMP ####[facility] [address] [place], [place] [address]Ia. Sarah Church LDL CALC NORMAL SEE BELOW Normal [facility] Comment on above: Result Comment: <100 mg/dl OPTIMAL 100 - 129 mg/dl NEAR OR ABOVE OPTIMAL 130 - 159 mg/dl BORDERLINE HIGH 160 - 189 mg/dl HIGH >190 mg/dl VERY HIGH Performed By: #### L IPID, CMP ####[facility] [address] [address]Dr. Sarah Church Triglyceride [Mass/Vol] 77 mg/dL Normal <=150 [facility] Comment on above: Performed By: #### L IPID, CMP ####[facility] [address] [address]Dr. Sarah Church VLDL CALC 15.4 mg/dL Normal [facility] Comment on above: Performed By: #### L IPID, CMP ####[facility] [address] [address]Dr. Sarah Church MICROALBUMIN, RAND URon 09-30 mALB 2.0 mg/L Normal <=30.0 [facility] Comment on above: Performed By: #### M ALBR #### [facility] [address] [address] [address] Sarah Church PROF 14(COMP METB)on 022 Albumin [Mass/Vol] 3.5 g/dL Normal 3.4-5.0 [facility] Comment on above: Performed By: #### L IPID, CMP ####[facility] [address] [address]Dr. Sarah Church Albumin/Globulin [Mass ratio] 0.8 {ratio} Normal [facility] Comment on above: Performed By: #### L IPID, CMP ####[facility] [address] [address]Dr. Sarah Church ALP [Catalytic activity/Vol] 85 U/L Normal 46-116 [facility] Comment on above: Performed By: #### L IPID, CMP ####[facility] [address] [address]DrCoretta Church ALT [Catalytic activity/Vol] 59 U/L Normal 14-59 [facility] Comment on above: Performed By: #### L IPID, CMP ####[facility] [address] [address]Dr. Sarah Church Anion gap [Moles/Vol] 15.1 mmol/L Normal [facility] Comment on above: Performed By: #### L IPID, CMP ####[facility] [address] [address]Dr. Sarah Church AST [Catalytic activity/Vol] 32 U/L Normal 15-37 [facility] Comment on above: Performed By: #### L IPID, CMP ####[facility] [address] [place], [place] [address]Dr. Sarah Church Bilirubin [Mass/Vol] 0.4 mg/dL Normal 0.2-1.0 [facility] Comment on above: Performed By: #### L IPID, CMP ####[facility] [address] [place], [place] [address]Dr. Sarah Church Calcium [Mass/Vol] 9.0 mg/dL Normal 8.5-10.1 [facility] Comment on above: Performed By: #### L IPID, CMP ####[facility] [address] [place], [place] [address]Dr. Sarah Church Chloride [Moles/Vol] 102 mmol/L Normal 98-107 [facility] Comment on above: Performed By: #### L IPID, CMP ####[facility] [address] [place], [place] [address]Dr. Sarah Church CO2 [Moles/Vol] 30.2 mmol/L Normal 21.0-32.0 [facility] Comment on above: Performed By: #### L IPID, CMP ####[facility] [address] [place], [place] [address]Dr. Sarah Church Creatinine [Mass/Vol] 0.81 mg/dL Normal 0.55-1.02 [facility] Comment on above: Performed By: #### L IPID, CMP ####[facility] [address] [place], [place] [address]Dr. Sarah Church EGFR-AF URUGUAYAN >60 Normal >=60 [facility] Comment on above: Performed By: #### L IPID, CMP ####[facility] [address] [address]Dr. Sarah Church EGFR-NON AF URUGUAYAN >60 Normal >=60 [facility] [facility] Comment on above: Performed By: #### L IPID, CMP ####[facility] [id number] [address]Dr. Sarah Church Globulin (S) [Mass/Vol] 3.9 g/dL Normal [facility] Comment on above: Performed By: #### L IPID, CMP ####[facility] [address] [place], [place] [address]Dr. Sarah Church Glucose [Mass/Vol] 218 mg/dL Critically high 74-106 [facility] Comment on above: Performed By: #### L IPID, CMP ####[facility] [address] [place], [place] [address]Dr. Sarah Ranjit Potassium [Moles/Vol] 4.3 mmol/L Normal 3.5-5.1 [facility] Comment on above: Performed By: #### L IPID, CMP ####[facility] [id number] [place], [place] [address]Dr. Sarah Ranjit Protein [Mass/Vol] 7.4 g/dL Normal 6.4-8.2 [facility] Comment on above: Performed By: #### L IPID, CMP ####[facility] [address] [place], [place] [address]Dr. Sarah Church Sodium [Moles/Vol] 143 mmol/L Normal 136-145 [facility] Comment on above: Performed By: #### L IPID, CMP ####[facility] [id number] [place], [place] [address]Dr. Corriebrenden Church Urea nitrogen [Mass/Vol] 14.0 mg/dL Normal 7.0-18.0 [facility] Comment on above: Performed By: #### L IPID, CMP ####[facility] [address] [place], [place] [address]Dr. Sarah Church Urea nitrogen/Creatinine [Mass ratio] 17.2 mg/mg Normal [facility] Comment on above: Performed By: #### L IPID, CMP ####[facility] [address] [place], [place] [address]Fw. Sarah Ranjit Vital Signs Date Time Vital Sign Value Performing Clinician Facility 06-14-2024 10:21-0500 Body height 157.5 cm Nacho Patiño MD Work Phone: [facility] 06-14-2024 10:21-0500 Body mass index (BMI) [Ratio] 38.59 kg/m2 Nacho Patiño MD Work Phone: [facility] 06-14-2024 10:21-0500 Body temperature 97.3 [degF] Nacho Patiño MD Work Phone: [facility] 06-14-2024 10:21-0500 Body weight 95.71 kg Nacho Patiño MD Work Phone: [facility] 06-14-2024 10:21-0500 Diastolic blood pressure 82 mm[Hg] Nacho Patiño MD Work Phone: [facility] 06-14-2024 10:21-0500 Heart rate 88 /min Nacho Patiño MD Work Phone: [facility] 06-14-2024 10:21-0500 SaO2% (BldA) [Mass fraction] 97 % Nacho Patiño MD Work Phone: [facility] 06-14-2024 10:21-0500 Systolic blood pressure 136 mm[Hg] Nacho Patiño MD Work Phone: [facility] 05-30-2024 10:48-0500 Body height 157.48 cm [facility] 05-30-2024 10:48-0500 Body mass index (BMI) [Ratio] 38.5 kg/m2 [facility] 05-30-2024 10:48-0500 Body weight 95.7 kg [facility] 05-30-2024 10:48-0500 Diastolic blood pressure 77 mm[Hg] [facility] 05-30-2024 10:48-0500 Heart rate 80 /min [facility] 05-30-2024 10:48-0500 Systolic blood pressure 133 mm[Hg] [facility] 02-23-2024 13:23-0400 Body height 157.48 cm [facility] 02-23-2024 13:23-0400 Body mass index (BMI) [Ratio] 38 kg/m2 [facility] 02-23-2024 13:23-0400 Body weight 94.37 kg [facility] 02-23-2024 13:23-0400 Diastolic blood pressure 78 mm[Hg] [facility] 02-23-2024 13:23-0400 Heart rate 75 /min [facility] 02-23-2024 13:23-0400 Respiratory rate 18 /min [place] 02-23-2024 13:23-0400 SaO2% (BldA) [Mass fraction] 97 % [facility] 02-23-2024 13:23-0400 Systolic blood pressure 170 mm[Hg] [facility] 12-13-2023 13:03-0400 Body height 157.48 cm [facility] 12-13-2023 13:03-0400 Body mass index (BMI) [Ratio] 37.1 kg/m2 [facility] 12-13-2023 13:03-0400 Body weight 92.07 kg [facility] 12-13-2023 13:03-0400 Diastolic blood pressure 86 mm[Hg] [facility] 12-13-2023 13:03-0400 Heart rate 78 /min [facility] 12-13-2023 13:03-0400 Respiratory rate 18 /min [place] 12-13-2023 13:03-0400 SaO2% (BldA) [Mass fraction] 96 % [facility] 12-13-2023 13:03-0400 Systolic blood pressure 153 mm[Hg] [facility] 12-05-2023 11:24-0400 Body height 157.48 cm [facility] 12-05-2023 11:24-0400 Body mass index (BMI) [Ratio] 36.9 kg/m2 [facility] 12-05-2023 11:24-0400 Body weight 91.62 kg [facility] 12-05-2023 11:24-0400 Diastolic blood pressure 75 mm[Hg] [facility] 12-05-2023 11:24-0400 Heart rate 80 /min [facility] 12-05-2023 11:24-0400 Systolic blood pressure 133 mm[Hg] [facility] 09-29-2023 13:44-0400 Diastolic blood pressure 76 mm[Hg] [facility] 09-29-2023 13:44-0400 Systolic blood pressure 130 mm[Hg] [facility] 09-29-2023 13:19-0400 Body height 157.48 cm [facility] 09-29-2023 13:19-0400 Body mass index (BMI) [Ratio] 38.7 kg/m2 [facility] 09-29-2023 13:19-0400 Body weight 95.9 kg [facility] 09-29-2023 13:19-0400 Heart rate 89 /min [facility] 09-29-2023 13:19-0400 Respiratory rate 18 /min [place] 09-29-2023 13:19-0400 SaO2% (BldA) [Mass fraction] 98 % [facility] 09-06-2023 11:08-0400 Body height 157.48 cm [facility] 09-06-2023 11:08-0400 Body mass index (BMI) [Ratio] 37.6 kg/m2 [facility] 09-06-2023 11:08-0400 Body weight 93.44 kg [facility] 09-06-2023 11:08-0400 Diastolic blood pressure 72 mm[Hg] [facility] 09-06-2023 11:08-0400 Heart rate 89 /min [facility] 09-06-2023 11:08-0400 Systolic blood pressure 127 mm[Hg] [facility] 08-24-2023 15:08-0400 Body height 157.48 cm [facility] 08-24-2023 15:08-0400 Body mass index (BMI) [Ratio] 37.5 kg/m2 [facility] 08-24-2023 15:08-0400 Body weight 93.21 kg [facility] 08-19-2023 10:43-0400 Body height 157.48 cm MD Shayy Dela Cruz Work Phone: [facility] 08-19-2023 10:43-0400 Body mass index (BMI) [Ratio] 37.5 kg/m2 MD Shayy Dela Cruz Work Phone: [facility] 08-19-2023 10:43-0400 Body weight 93.09 kg MD Shayy Dela Cruz Work Phone: [facility] 08-19-2023 10:43-0400 Diastolic blood pressure 79 mm[Hg] MD Shayy Dela Cruz Work Phone: [facility] 08-19-2023 10:43-0400 Heart rate 83 /min MD Shayy Dela Cruz Work Phone: [facility] 08-19-2023 10:43-0400 Systolic blood pressure 135 mm[Hg] MD Shayy Dela Cruz Work Phone: [facility] 07-28-2023 14:22-0400 Body height 157.48 cm MD Shayy Dela Cruz Work Phone: [facility] 07-28-2023 14:22-0400 Body mass index (BMI) [Ratio] 37.6 kg/m2 MD Shayy Dela Cruz Work Phone: [facility] 07-28-2023 14:22-0400 Body weight 93.44 kg MD Shayy Dela Cruz Work Phone: [facility] 07-28-2023 14:22-0400 Diastolic blood pressure 84 mm[Hg] MD Shayy Dela Cruz Work Phone: [facility] 07-28-2023 14:22-0400 Heart rate 83 /min MD Shayy Dela Cruz Work Phone: [facility] 07-28-2023 14:22-0400 Respiratory rate 18 /min MD Shayy Dela Cruz Work Phone: [facility] 07-28-2023 14:22-0400 SaO2% (BldA) [Mass fraction] 97 % MD Shayy Dela Cruz Work Phone: [facility] 07-28-2023 14:22-0400 Systolic blood pressure 140 mm[Hg] MD Shayy Dela Cruz Work Phone: [facility] 07-19-2023 10:57-0400 Body height 157.48 cm MD Shayy Dela Cruz Work Phone: [facility] 07-19-2023 10:57-0400 Body mass index (BMI) [Ratio] 37.1 kg/m2 MD Shayy Dela Cruz Work Phone: [facility] 07-19-2023 10:57-0400 Body weight 92.07 kg MD Shayy Dela Cruz Work Phone: [facility] 07-19-2023 10:57-0400 Diastolic blood pressure 68 mm[Hg] MD Shayy Dela Cruz Work Phone: [facility] 07-19-2023 10:57-0400 Heart rate 89 /min MD Shayy Dela Cruz Work Phone: [facility] 07-19-2023 10:57-0400 Systolic blood pressure 132 mm[Hg] MD Shayy Dela Cruz Work Phone: [facility] 05-25-2023 11:00-0500 Body height 157.48 cm Cathie Scally Other [facility] 05-25-2023 11:00-0500 Body mass index (BMI) [Ratio] 37.23 kg/m2 Cathie Scally Other [facility] Other 05-25-2023 11:00-0500 Body weight 92.35 kg Catihe Scally Other [facility] 05-25-2023 11:00-0500 Diastolic blood pressure 71 mm[Hg] Cathie Scally Other [facility] 05-25-2023 11:00-0500 Respiratory rate 18 /min Cathie Scally Other [facility] Other 05-25-2023 11:00-0500 SaO2% (BldA) [Mass fraction] 95 % Cathie Scally Other [facility] Other 05-25-2023 11:00-0500 Systolic blood pressure 139 mm[Hg] Cathie Scally Other [facility] 04-15-2023 11:00-0500 Body height 157.48 cm Shayy Dela Cruz Other [facility] 04-15-2023 11:00-0500 Body mass index (BMI) [Ratio] 37.49 kg/m2 Shayy Dela Cruz Other [facility] Other 04-15-2023 11:00-0500 Body weight 92.99 kg Shayy Dela Cruz Other [facility] Other 04-15-2023 11:00-0500 Body weight 92.98 kg MD Shayy Dela Cruz Work Phone: [facility] 04-15-2023 11:00-0500 Diastolic blood pressure 84 mm[Hg] Shayy Dela Cruz Other [facility] 04-15-2023 11:00-0500 Systolic blood pressure 142 mm[Hg] Shayy Dela Cruz Other [facility] 06-22-2022 13:30-0500 Body height 157.48 cm Shayy Dela Cruz Other [facility] Other 06-22-2022 13:30-0500 Body mass index (BMI) [Ratio] 36.94 kg/m2 Shayy Dela Cruz Other [facility] Other 06-22-2022 13:30-0500 Body weight 91.63 kg Shayy Dela Cruz Other [facility] Other 06-22-2022 13:30-0500 Diastolic blood pressure 74 mm[Hg] Shayy Dela Cruz Other [facility] Other 06-22-2022 13:30-0500 SaO2% (BldA) [Mass fraction] 97 % Shayy Dela Cruz Other [facility] Other 06-22-2022 13:30-0500 Systolic blood pressure 112 mm[Hg] Shayy Dela Cruz Other [facility] Other Encounters Encounter Date Encounter Type Care Provider Facility Start: 07-05-2024 End: 07-05-2024 ambulatory [facility] Facility:[facility] Start: 06-19-2024 End: 06-19-2024 ambulatory [facility] Start: 06-14-2024 End: 06-14-2024 Office outpatient new 30 minutes Nacho Patiño MD Work Phone: [facility] Comment on above: 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[facility]) (Primary Dx) Start: 06-14-2024 End: 06-14-2024 ambulatory NACHO PATIÑO [facility] Start: 05-30-2024 End: 05-30-2024 ambulatory [facility] Work Phone: Start: 05-30-2024 End: 05-30-2024 Patient encounter procedure [facility] Work Phone: Start: 05-24-2024 End: 05-24-2024 ambulatory [facility] Work Phone: Start: 05-24-2024 End: 05-24-2024 Patient encounter procedure [facility] Work Phone: Start: 05-16-2024 Non-patient / Non-visit [facility] Work Phone: Start: 05-07-2024 Non-patient / Non-visit [facility] Work Phone: Start: 04-19-2024 End: 04-19-2024 Patient encounter procedure [facility] Work Phone: Start: 02-28-2024 Non-patient / Non-visit [facility] Work Phone: Start: 02-23-2024 End: 02-23-2024 ambulatory Cathie Karli [facility] Work Phone: Start: 02-23-2024 End: 02-23-2024 Patient encounter procedure [facility] Cathie Vargas Work Phone: [facility] Work Phone: Start: 02-23-2024 End: 02-23-2024 ambulatory [facility] Work Phone: Start: 02-23-2024 End: 02-23-2024 Patient encounter procedure [facility] Work Phone: Start: 01-17-2024 End: 01-17-2024 ambulatory [facility] Work Phone: Start: 01-17-2024 End: 01-17-2024 Patient encounter procedure [facility] Work Phone: Start: 12-13-2023 End: 12-13-2023 ambulatory [facility] Work Phone: Start: 12-13-2023 End: 12-13-2023 Patient encounter procedure [facility] Work Phone: Start: 12-05-2023 End: 12-05-2023 ambulatory [facility] Work Phone: Start: 12-05-2023 End: 12-05-2023 Patient encounter procedure [facility] Physician [facility] Work Phone: Start: 11-07-2023 End: 11-07-2023 ambulatory [facility] Work Phone: Start: 11-07-2023 End: 11-07-2023 Patient encounter procedure [facility] Physician [facility] Work Phone: Start: 09-29-2023 End: 09-29-2023 ambulatory [facility] Work Phone: Start: 09-29-2023 End: 09-29-2023 Patient encounter procedure [facility] Physician [facility] Work Phone: Start: 09-06-2023 End: 09-06-2023 ambulatory [facility] Work Phone: Start: 09-06-2023 End: 09-06-2023 Patient encounter procedure [facility] Physician [facility] Work Phone: Start: 08-24-2023 End: 08-24-2023 ambulatory [facility] Work Phone: Start: 08-24-2023 End: 08-24-2023 Patient encounter procedure [facility] Work Phone: Start: 08-19-2023 End: 08-19-2023 ambulatory MD Shayy Dela Cruz Work Phone: [facility] Work Phone: Start: 08-19-2023 End: 08-19-2023 Patient encounter procedure MD Shayy Dela Cruz Work Phone: [facility] Physician [facility] Work Phone: Start: 07-28-2023 End: 07-28-2023 ambulatory MD Shayy Dela Cruz Work Phone: [facility] Work Phone: Start: 07-28-2023 End: 07-28-2023 Patient encounter procedure MD Shayy Dela Cruz Work Phone: [facility] Physician [facility] Work Phone: Start: 07-19-2023 End: 07-19-2023 ambulatory MD Shayy Dela Cruz Work Phone: [facility] Work Phone: Start: 07-19-2023 End: 07-19-2023 Patient encounter procedure MD Shayy Dela Cruz Work Phone: [facility] Physician [facility] Work Phone: Start: 07-12-2023 Non-patient / Non-visit MD Shayy Dela Cruz Work Phone: [facility] [employer] Work Phone: Start: 06-14-2023 End: 06-14-2023 ambulatory MD Shayy Dela Cruz Work Phone: [facility] Work Phone: Start: 06-14-2023 End: 06-14-2023 Patient encounter procedure MD Shayy Dela Cruz Work Phone: [facility] Work Phone: Start: 06-06-2023 End: 06-06-2023 ambulatory Shayy Dela Cruz Other [facility] Other Start: 06-06-2023 Telephone encounter Shayy Dela Cruz [facility] Start: 05-25-2023 FQHC visit new patient Cathie Sheikh y [facility] Start: 05-25-2023 End: 05-25-2023 ambulatory MD Shayy Dela Cruz Work Phone: [facility] Other Start: 05-25-2023 End: 05-25-2023 Discharged Recurring MD Shayy Dela Cruz [facility] Work Phone: Start: 05-25-2023 Registered Recurring MD Shayy Dela Cruz [facility] Work Phone: Start: 05-25-2023 End: 05-25-2023 Patient encounter procedure MD Shayy Dela Cruz Work Phone: [facility]- Start: 05-12-2023 End: 05-12-2023 ambulatory Shayy Dela Cruz Other [facility] Other Start: 05-12-2023 Telephone encounter Shayy Dela Cruz [facility] Start: 05-10-2023 End: 05-10-2023 ambulatory Shayy Dela Cruz Other [employer] Other Start: 05-10-2023 Telephone encounter Shayy Dela Cruz [facility] Start: 04-22-2023 End: 04-22-2023 ambulatory Shayy Dela Cruz Other [facility] Other Start: 04-22-2023 Telephone encounter Shayy Dela Cruz [facility] Start: 04-20-2023 End: 04-20-2023 ambulatory Lynne Fitt Other [facility] Other Start: 04-20-2023 Telephone encounter Lynne Fitt [facility] Start: 04-18-2023 End: 04-18-2023 ambulatory Lynne Austint Other [facility] Other Start: 04-18-2023 Telephone encounter Lynne Austint [facility] Start: 04-15-2023 End: 04-15-2023 ambulatory Shayy Dela Cruz Other [facility] Other Start: 04-15-2023 Office outpatient visit 15 minutes Shayy Dela Cruz [facility] Start: 04-15-2023 End: 04-15-2023 Patient encounter procedure MD Shayy Dela Cruz Work Phone: [facility] Work Phone: Start: 04-06-2023 End: 04-06-2023 ambulatory Shayy Dela Cruz Other [facility] Other Start: 04-06-2023 Telephone encounter Shayy Dela Cruz [facility] Start: 02-25-2023 End: 02-25-2023 ambulatory Shayy Dela Cruz Other [facility] Other Start: 02-25-2023 Telephone encounter Shayy Dela Cruz [facility] Start: 10-29-2022 End: 10-29-2022 ambulatory Shayy Dela Cruz Other [facility] Other Start: 10-29-2022 Telephone encounter Shayy Dela Cruz [facility] Start: 08-27-2022 End: 08-28-[address] SHAYY DELA CRUZ Facility:[facility] Start: 07-20-2022 End: 07-21-[address] SHAYY DELA CRUZ Facility:[facility] Start: 07-19-2022 End: 07-19-2022 ambulatory Shayy Dela Cruz Other [facility] Other Start: 07-19-2022 Telephone encounter Shayy Dela Cruz [facility] Start: 07-12-2022 End: 07-13-[address] SHAYY DELA CRUZ Facility:[facility] Start: 07-05-2022 End: 07-05-2022 ambulatory Shayy Dela Cruz Other [facility] Other Start: 07-05-2022 Telephone encounter Shayy Dela Cruz [facility] Start: 06-28-2022 End: 06-28-2022 ambulatory Shayy Dela Cruz Other [facility] Other Start: 06-28-2022 Telephone encounter Shayy Dela Cruz [facility] Start: 06-22-2022 End: 06-22-2022 ambulatory Shayy Dela Cruz Other [facility] Other Start: 06-22-2022 Office outpatient visit 15 minutes Shayy Dela Cruz [facility] Start: 05-27-2022 End: 05-27-2022 ambulatory Shayy Dela Cruz Other [facility] Other Start: 05-27-2022 Telephone encounter Shayy Dela Cruz [facility] Start: 05-19-2022 End: 05-20-2022 ambulatory [...] 05-06-2017 Ambulatory DEFAULT PHYSICIAN Facility:[facility] Plan of Treatment Date Care Activity Detail Author Start: 01-01-2024 Influenza vaccination Influenza Vaccine [facility] Start: 01-15-2022 Administration of varicella zoster vaccine Zoster (Shingles) Vaccine (1 of 2) [facility] Start: 01-15-1993 Screening for malignant neoplasm of cervix Pap Smear [facility] Start: 01-15-1991 DTaP,Tdap and Td Vaccines (1 - Tdap) DTaP,Tdap and Td Vaccines (1 - Tdap) [facility] Start: 01-15-1990 Adult BMI Screening Adult BMI Screening [facility] Start: 1984 Depression Screening Depression Screening [facility] Start: 1984 Tobacco Screening Tobacco Screening [facility] Comprehensive metabo lic 2000 panel - Serum or Plasma [facility] MG Breast - bilatera l Screening [facility] Immunizations Immunization Date Immunization Notes Care Provider Fa cility 02-01-2022 influenza virus vaccine, split virus (incl. purified surface antigen) Shayy Dela Cruz Other [facility] Other 02-01-2022 influenza virus vaccine, unspecified formulation MD Shayy Dela Cruz Work Phone: [facility] Payers Date Payer Category Payer Medicare HMO ANTH MEDICARE [id number] 2017 Medicaid MEDICAID [facility] [id number] 2017 Unknown [id number] 1972 Unknown [id number] 1972 Unknown [id number] 1972 Unknown [id number] 1972 Unknown [id number] 1972 Unknown [id number] 1972 Unknown [id number] 1972 Unknown [id number] 1972 Unknown [id number] 1972 Unknown [id number] 1972 Unknown [id number] 1957 Medicaid [id number] 1957 Medicare [id number] Medicare Medicare [id number] Unknown Social History Date Type Detail Facility Unknown if ever smoked [facility] Other Start: 06-14-2024 Sex Assigned At [facility] Other Start: 1970 Sex Assigned At Female [facility] Start: 07-19-2023 End: 06-14-2024 Tobacco smoking status KSIS Never smoked tobacco (finding) [facility] Start: 05-24-2024 End: 06-13-2024 Sex Female (finding) [facility] Start: 06-14-2024 Tobacco use and exposure Smokeless tobacco non-user [facility] Start: 06-14-2024 Alcoholic beverage intake Lifetime non-drinker (finding) [facility] Start: 06-14-2024 History of Social function [facility] Within the past 12 months we worried whether our food would run out before we got money to buy more. Never True [facility] Start: 1970 Sex assigned at Not on file [facility] NEGATED: Highlighted row [facility] Medical Equipment Procedure Code Equipment Code [...] scheduled for 06/21/[address] Bruce at [facility]. She had EKG, CXR, and labs today. Denies chest pain, SOB, and palpitations. Lipid panel was drawn last week. Subjective Zoila Ramso is a 54 y.o. year old female patient with coronary artery disease status post PCI to proximal RCA and mid circumflex in 2004, hyperlipidemia, hypertension, type 2 diabetes, and obesity seen in follow-up. Patient here for 1.5 year follow up CAD, hypertension, and hyperlipidemia. She also needs cleared for toe amputation. This is scheduled for 06/21/[address] Bruce at [facility]. She had EKG, CXR, and labs [...] Active Problem List Diagnosis Coronary arteriosclerosis in [place] artery Old myocardial infarction Sinusitis Type 1 [...] is normal sized. (more content not included)... [facility] 06-14-2024 Evaluation + Plan note Associated Problem(s): [...] amputation by podiatry and risk factors modification. [facility] 06-14-2024 Miscellaneous Notes Associated Problem(s): Gangrene of toe of left foot ([facility]) Osteomyelitis and gangrenous changes of the left [...] risk factors modification. documented in this encounter [facility] 06-14-2024 History of Presen t illness Narrative [...] Past Medical History: Diagnosis Date Diabetes mellitus ([facility]) Past Surgical History: No past [...] Interpersonal Safety: Unknown (06/23/2023) Received from [facility] Safety & Environment Fear of Current [...] List Gangrene of toe of left foot ([facility]) - Primary Current Assessment & Plan Osteomyelitis [...] visit: Gangrene of toe of left foot ([facility]) Nacho Patiño MD, SELMA, RPVI, FSVS, FACS [facility] This note was created with the assistance of a speech recognition program. While intending to generate a timely document that accurately reflects the content of the visit, no guarantee can be provided that every grammatical or spelling mistake has been or will be identified or corrected. Thank you for your understanding. documented in this encounter [facility] 04-19-2024 Evaluation note Diagnosis Onset Date Resolution Type 2 diabetes mellitus acute April 19, 2:03pm [facility] Work Phone: 1(933) 410-973412-19-2024 Evaluation note* Diagnosis Onset Date Resolution Status Admit Date Type 2 diabetes mellitus acute April 19, 2024 2:03pm Type 2 diabetes mellitus acute May 24, 2024 12:54pm [facility] Work Phone: 1(624) 374-945302-05-2024 Evaluation note* Encounter Date Diagnosis Assessment Notes Treatment Notes Treatment Clinical Notes Jun, Controlled type 2 diabetes mellitus with hyperglycemia, unspecified whether intermodal dispatcher insulin use (ICD-10 - E11.65) [facility] Other 01-24-2024 Evaluation note* Encounter Date Diagnosis [...] Instructions material was published to portal May, 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 She was taught how to use the [...] the patient by Nguyễn Norwood RN, [facility]. [employer] Other 12-15-2023 Evaluation note* Encounter Date Diagnosis Assessment Notes Treatment Notes Treatment Clinical Notes Apr, Type 2 diabetes mellitus with hyperglycemia (ICD-10 - E11.65) Rx handwritten for diabetic shoes. Pt agrees to referral to specialty clinic. Continue present meds and discussed healthy diet in meantime. 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 She declines and will continue meds, followup in 3 months, and recheck labs at that time. She is eating more of a keto diet and is certain that is helping her A1C improve. Jun, Screening mammogram for breast cancer (ICD-10 - Z12.31) Zoila will call for an appt [facility] Other 12-15-2022 NotePROCEDURE: XR FOOT LT MIN [...] authenticated by: NARINDER LAN Date: 2022-04-15 06:08[facility]-12-2022 NotePROCEDURE: XR TOES RT MIN 2 V HISTORY: Pain of toe of right foot ; first toe pain following injury COMPARISON: None. FINDINGS: BONES:No fracture, acute abnormality, or significant arthropathy. SOFT TISSUES:No visible soft tissue swelling. EFFUSION:None visible. OTHER: Negative. IMPRESSION: 1. No acute bone abnormality. 2. Mild degenerative joint disease. Electronically authenticated by: NARINDER LAN Date: 2022-01-11 18:48[facility] complaint+Reason for visit Narrative* Chief Complaint 3 Month Follow Up Referral Dr. Negro LAGUERRE download [facility] Work Phone: chief complaint+Reason for visit Narrative* Chief Complaint 3 Month Follow Up Referral Dr. Negro LAGUERRE download Reason for Visit Type 2 diabetes holli [facility] Work Phone: chief complaint+Reason for visit Narrative* Chief Complaint Referral Dr. Negro LAGUERRE download 3 Month Check up Reason for Visit Type 2 diabetes holli [facility] Work Phone: chief complaint+Reason for visit Narrative* Chief Complaint Referral Dr. Negro LAGUERRE download 3 Month Check up amrik reader Reason for Visit Type 2 diabetes holli itus Right wrist fracture Type 2 diabetes mellitus [facility] Work Phone: chief complaint+Reason for visit [...] D deficiency Gastroesophageal reflux disease [facility] Work Phone: Evaluation noteNo Information[employer] Other Evaluation noteNo assessment information available [facility] Work Phone: Evaluation note* Diagnosis Onset Date Resolution Status Type 2 diabetes mellitus acu te [facility] Work Phone: Evaluation note* Diagnosis Onset Date Resolution Status Type 2 diabetes mellitus acu te Right wrist fracture acute Type 2 diabetes mellitus acu te [facility] Work Phone: Evaluation note* Diagnosis Onset [...] acute Gastroesophageal reflux disease acute [facility] Work Phone: Evaluation note* Diagnosis Onset [...] 2 diabetes mellitus acu te [facility] Work Phone: evaluation note* Diagnosis Onset [...] 2 diabetes mellitus acu te [facility] Work Phone: evaluation note* Diagnosis Onset [...] 2 diabetes mellitus acu te [facility] Work Phone: evaluation note* Diagnosis Onset [...] mammogram for breast cancer acute [facility] Work Phone: Evaluation note* Diagnosis Onset [...] te Vitamin D deficiency acute [facility] Work Phone: evaluation note* Diagnosis Onset [...] 2 diabetes mellitus acu te [facility] Work Phone: evaluation note* Diagnosis Onset [...] te Vitamin D deficiency acute [facility] Work Phone: evaluation note* Diagnosis Gangrene of toe of left foot ([facility])- Primary [facility] - [facility]* Type Description Date Medical History Herpes labialis Medical History Candidiasis of mouth Medical History Type 2 diabetes holli itus with diabetic polyneuropathy, unspecified whether intermodal dispatcher insulin use Medical History Controlled type 2 di abetes mellitus with hyperglycemia, unspecified whether skilled nursing insulin use Medical History Obesity Medical History Dyslipidemia Medical History CAD in [place] artery Medical History Asthma, intermittent Medical History [...] History appendectomy Surgical History 7 stents 1999 [facility] Other History general Narrative - Reported* Type Description Date Medical History Herpes labialis Medical History Candidiasis of mouth Medical History Type 2 diabetes holli itus with diabetic polyneuropathy, unspecified whether intermodal dispatcher insulin use Medical History Controlled type 2 di abetes mellitus with hyperglycemia, unspecified whether intermodal dispatcher insulin use Medical History Obesity Medical History Dyslipidemia Medical History CAD in [place] artery Medical History Asthma, intermittent Medical History [...] stents 1999 Hospitalization History see surgical history [facility] Other [facility] general Narrative - Reported* Type Description Date Medical History Herpes labialis Medical History Candidiasis of mouth Medical History Type 2 diabetes holli itus with diabetic polyneuropathy, unspecified whether intermodal dispatcher insulin use Medical History Controlled type 2 di abetes mellitus with hyperglycemia, unspecified whether intermodal dispatcher insulin use Medical History Obesity Medical History Dyslipidemia Medical History CAD in [place] artery Medical History Asthma, intermittent Medical History [...] coronary 1999 Hospitalization History see surgical history [facility] Other InstructionsNot on filedocumented in this encounter [facility] Summary Purpose Family History No Family [...] Name Jose De Jesus Referring Provider Specialty [facility] Referred Organization [facility] Referred Provider Marcia Mendes Referred Address [address] [place] [address],[address],[place], [place],[address] Referred Provider Specialty Nurse Huey saldaña Referral [...] and content) DATE CREATED AUTHOR 10/25/2017 [facility] DATE CREATED AUTHOR AUTHOR'S ORGANIZ ATION 09/03/2022 [facility] DATE CREATED AUTHOR AUTHOR'S ORGANIZ ATION 06/16/2024 [facility] DATE CREATED AUTHOR AUTHOR'S ORGANIZ ATION 06/30/2024 [facility] DATE CREATED AUTHOR AUTHOR'S ORGANIZ ATION 07/09/2024 [facility] REASON FOR VISIT (unrecogniz [...] May 24, 2024 End: May 24, 2024 Crutis Norwood RN Attending Provider Active St art: [...] End: November 07, 2023 Cathie Vargas , TRIAGE CLINICIAN Active Star t: November 07, 2023 End: [...] End: July 28, 2023 Cathie Vargas , TRIAGE CLINICIAN Attending Provider Active Start: July 28, 2023 End: July 28, 2023 Team Status: Inactive Member Role Status Susan Dela Cruz MD Attending Provider Active St art: April 15, 2023 End: April 15, 2023 Team Status: Inactive Member Role Status Susan Vargas , TRIAGE CLINICIAN Attending Provider Active Start: May 25, 2023 [...] End: June 14, 2023 Cathie Vargas , TRIAGE CLINICIAN Active Star t: June 14, 2023 End: [...] BE BASED ON THE PRIMARY CLINICAL RECORDS. [employer] [facility]. provides no warranty or guarantee of the accuracy or completeness of information in this document.
== END 2024-07-10 16:12 | disposition home or self-care (01) ==
LOC: WC 16:11
PROVIDERS: PCP Family Medicine; Visit Provider Physician Assistant
DX: T87.89 Other complications of amputation stump (principal)

== ENCOUNTER 2024-07-18 13:32 | Emergency (ER) | payer MEDICARE, MEDICAID, SELFPAY ==
[2024-07-18 13:38] VITALS: BP 139/62; PULSE 97; O2SAT 95; BMI 39.3
--- NOTE | 2024-07-18 13:49 | ED_ITS ---
HPI HPI - Fall General Chief Complaint: Fall Stated Complaint: FALL; HEADACHE, NAUSEA, DIZZINESS Time Seen by Provider: 07/18/24 13:49 Mode of arrival: walk-in History of Present Illness HPI Narrative: 54 year old female presents to the ED for a headache, nausea, dizziness s/p trip and fall today. She struck the back of her head. Denies LOC, vision changes, emesis. Reports soreness to her neck with palpation. Denies pain to her back, c hest, abdomen, hips, extremities. Denies change in bowel and/or bladder control. She is accompanied by her sister. Related Data Home Medications ?Medication ?Instructions ?Recorded ?Confirmed albuterol sulfate 90 mcg/actuation 2 inh inhalation PRN PRN shortness 12/31/22 06/19/24 aerosol inhaler of breath or wheezing aspirin 81 mg capsule 81 mg PO DAILY 12/31/22 06/19/24 atorvastatin 40 mg tablet 40 mg PO DAILY 12/31/22 06/19/24 carvedilol 6.25 mg tablet 6.25 mg PO Q12H 12/31/22 07/05/24 esomeprazole magnesium 40 mg 40 mg PO Q24H 12/31/22 06/19/24 capsule,delayed release fluticasone propionate 110 3 puff inhalation PRN PRN 12/31/22 07/05/24 mcg/actuation HFA aerosol inhaler bronchospasm (Flovent HFA) glipizide 10 mg tablet 5 mg PO BID 12/31/22 07/05/24 insulin glargine U-300 conc 300 95 unit subcut QAM 12/31/22 07/05/24 unit/mL (1.5 mL) subcutaneous pen (Bill Astudillo U-300 Insulin) insulin lispro 100 unit/mL 1 sliding scale dose subcut TID 12/31/22 07/05/24 subcutaneous pen losartan 25 mg tablet 25 mg PO DAILY 12/31/22 07/05/24 metformin 1,000 mg tablet 500 mg PO BID 12/31/22 07/05/24 famotidine 20 mg tablet 20 mg PO QPM 04/19/24 07/05/24 nitroglycerin 0.4 mg sublingual 0.4 mg sublingual Q5M PRN chest 04/19/24 06/19/24 tablet pain fluticasone propionate 50 2 spray intranasal DAILY 06/19/24 07/05/24 mcg/actuation nasal spray,suspension hydrocodone 5 mg-acetaminophen 325 1 tab PO Q6H PRN pain 06/19/24 07/05/24 mg tablet Previous Rx's ?Medication ?Instructions ?Recorded amoxicillin 875 mg-potassium 1 tab PO Q12H #20 tabs 06/07/24 clavulanate 125 mg tablet sulfamethoxazole 800 1 tab PO BID #20 tabs 06/07/24 mg-trimethoprim 160 mg tablet (Bactrim DS) ondansetron 4 mg disintegrating 4 mg PO Q6H PRN nausea and 06/19/24 tablet vomiting #20 tabs Allergies Allergy/AdvReac Type Severity Reaction Status Date / Time tomato Allergy Severe Nausea Verified 06/19/24 17:29 latex Allergy Intermediate itch Verified 06/19/24 17:29 insulin lispro Allergy Mild Rash Verified 06/19/24 17:29 codeine Allergy Vomiting Verified 06/19/24 17:29 Opioid HPI Opioid Management Most Recent Pain and Opioid Data: Last Pain Scale 5 07/05/24 07:11 07/05/24 Review of Systems ROS Constitutional Denies: fever or chills Eyes Denies: change in vision Ears, nose, mouth, and throat Reports: neck pain; Denies: throat pain Cardiovascular Denies: chest pain Respiratory Denies: shortness of breath Gastrointestinal Reports: nausea; Denies: abdominal pain or vomiting Musculoskeletal Reports: neck pain; Denies: back pain, extremity pain or extremity swelling Integumentary/Breast Denies: rash Neurological Reports: headache and dizziness; Denies: numbness in extremities, weakness in extremities, confusion, behavioral changes or slurred speech [facility] Medical History (Updated 07/18/24 @ 15:19 by Cassi Yusuf) Menopause ?Z78.0 - Asymptomatic menopausal state (ICD-10) Deep vein thrombosis ?I82.409 - Acute embolism and thrombosis of unspecified deep veins of unspecified lower extremity (ICD-10) Asthma ?J45.909 - Unspecified asthma, uncomplicated (ICD-10) Dyspnea on exertion ?R06.09 - Other forms of dyspnea (ICD-10) Nausea ?R11.0 - Nausea (ICD-10) Neuropathy ?G62.9 - Polyneuropathy, unspecified (ICD-10) CAD (coronary artery disease) ?I25.10 - Atherosclerotic heart disease of [place] coronary artery without angina pectoris (ICD-10) Toe necrosis ?I96 - Gangrene, not elsewhere classified (ICD-10) Diabetes ?E11.9 - Type 2 diabetes mellitus without complications (ICD-10) Diabetic foot ulcer ?E11.621 - Type 2 diabetes mellitus with foot ulcer (ICD-10) ?L97.509 - Non-pressure chronic ulcer of other part of unspecified foot with unspecified severity (ICD-10) Disorder of arteries and arterioles ?I77.9 - Disorder of arteries and arterioles, unspecified (ICD-10) Chronic osteomyelitis involving left ankle and foot ?M86.672 - Other chronic osteomyelitis, left ankle and foot (ICD-10) Gangrene ?I96 - Gangrene, not elsewhere classified (ICD-10) Surgical History (Updated 06/19/24 @ 13:36 by Clarissa Navarrete NP) History of appendectomy ?Z90.49 - Acquired absence of other specified parts of digestive tract (ICD- 10) History of cholecystectomy ?Z90.49 - Acquired absence of other specified parts of digestive tract (ICD- 10) History of arthroscopy of shoulder ?Z98.890 - Other specified postprocedural states (ICD-10) S/P arterial stent (~2002) ?Z95.9 - Presence of cardiac and vascular implant and graft, unspecified (ICD-10) Family History (Updated 06/19/24 @ 13:36 by Clarissa Navarrete NP) Other Family history of diabetes mellitus Family history of heart disease Family history of hypertension Family history of myocardial infarction Social History (Updated 06/19/24 @ 13:31 by Clarissa Navarrete NP) Within the past year, how often did you have a drink containing alcohol: never Score interpretation: A score less than 3 is consistent with normal alcohol consumption. Smoking status: Never smoker Non-prescribed substance use: denies use Highest level of school completed/degree received: high school graduate Little interest or pleasure in doing things: not at all Feeling down, depressed, or hopeless: not at all Exam Constitutional Vital Signs, click to edit/add: Last Vital Signs Pulse 97 H 07/18/24 13:38 Resp 18 07/18/24 13:38 BP 139/62 07/18/24 13:38 Pulse Ox 95 07/18/24 13:38 Common normals: no apparent distress and oriented x3 General appearance: cooperative HENMT Common normals: normocephalic, external ears normal and moist oral mucous membranes Head and scalp: normal to inspection Nose: external nose normal Mouth: oral and palatal mucosa normal and lip normal Eye Common normals: PERRL, EOMs intact bilaterally, conjunctivae normal and no scleral icterus Neck & C-Spine Common normals: supple Cervical spine: paracervical muscle tenderness; no cervical spine tenderness Chest Chest: symmetrical chest wall rise Respiratory Common normals: normal respiratory effort Effort & inspection: able to speak in complete sentences and symmetric chest movement Cardio Common normals: regular rate Back & Pelvis Thoracic spine/upper back: normal to inspection; no thoracic spinal tenderness, no paraspinal muscle tenderness and no paraspinal muscle spasm Lumbar spine/lower back: normal to inspection; no lumbar spinal tenderness, no paraspinal muscle tenderness and no paraspinal muscle spasm Neuro Common normals: oriented x3, CN's II-XII intact bilaterally, moves all extremities and no focal motor deficits Sensorium/orientation: awake and alert Speech: speech normal Course Vital Signs Vital signs: Vital Signs Pulse Rate 97 H 07/18/24 13:38 Respiratory Rate 18 07/18/24 13:38 Blood Pressure 139/62 07/18/24 13:38 Pulse Oximetry 95 07/18/24 13:38 Pulse Rate 97 H 07/18/24 13:38 Respiratory Rate 18 07/18/24 13:38 Blood Pressure 139/62 07/18/24 13:38 Pulse Oximetry 95 07/18/24 13:38 MDM - Fall MDM Narrative Medical decision making narrative: CT scans of the head and cervical spine were completed. Imaging was negative for acute findings. Findings were discussed. The patient was medicated with Tylenol and Zofran here. Follow up with pcp for a recheck, further evaluation and treatment. Medical Records Attestation: I reviewed the patient's medical records. Imaging Data CT scan - head: Attestation: I have reviewed the pertinent imaging results. Radiologist's impression: CT brain: No acute intracranial process. CT cervical spine: No acute fracture. Discharge Plan Discharge Chief Complaint: Fall Clinical Impression: Head injury, Cervical strain Patient Disposition: Home, Self-Care Time of Disposition Decision: 15:19 Condition: Good Mode of Transportation: Private Vehicle Prescriptions / Home Meds: No Action albuterol sulfate 90 mcg/actuation HFA aerosol inhaler 2 inh INHALATION PRN PRN (Reason: shortness of breath or wheezing) insulin lispro 100 unit/mL insulin pen 1 sliding scale dose SUBCUT TID insulin glargine U-300 conc [[employer] U-300 Insulin] 300 unit/mL (1.5 mL) insulin pen 95 unit SUBCUT QAM aspirin 81 mg capsule 81 mg PO DAILY atorvastatin 40 mg tablet 40 mg PO DAILY losartan 25 mg tablet 25 mg PO DAILY fluticasone propionate [Flovent HFA] 110 mcg/actuation HFA aerosol inhaler 3 puff INHALATION PRN PRN (Reason: bronchospasm) esomeprazole magnesium 40 mg capsule,delayed release(DR/EC) 40 mg PO Q24H glipizide 10 mg tablet 5 mg PO BID metformin 1,000 mg tablet 500 mg PO BID carvedilol 6.25 mg tablet 6.25 mg PO Q12H amoxicillin-pot clavulanate 875-125 mg tablet 1 tab PO Q12H Qty: 20 0RF sulfamethoxazole-trimethoprim [Bactrim DS] 800-160 mg tablet 1 tab PO BID Qty: 20 0RF ondansetron 4 mg tablet,disintegrating 4 mg PO Q6H PRN (Reason: nausea and vomiting) Qty: 20 0RF famotidine 20 mg tablet 20 mg PO QPM nitroglycerin 0.4 mg tablet, sublingual 0.4 mg sublingual Q5M PRN (Reason: chest pain) fluticasone propionate 50 mcg/actuation spray,suspension 2 spray INTRANASAL DAILY hydrocodone-acetaminophen 5-325 mg tablet 1 tab PO Q6H PRN (Reason: pain) Print Language: Korean Instructions: Cervical Strain (ED), Head Injury (ED) Additional Instructions: Return to the ER for worsening symptoms. Referrals: Shayy Ly MD [Primary Care Provider] - 1 week Discharge Date/Time: 07/18/24 15:32
[2024-07-18] MEDS: ONDANSETRON 4 MG RAPDIS TABLET SL (15:18)
[2024-07-18] MEDS: ACETAMINOPHEN 500 MG TABLET 1000 MG PO (15:18)
== END 2024-07-18 15:32 | disposition home or self-care (01) ==
PROVIDERS: Emergency Provider Emergency Medicine; PCP Family Medicine
DX: S09.90XA Unspecified injury of head, initial encounter (principal); S16.1XXA Strain of muscle, fascia and tendon at neck level, initial encounter; Z90.49 Acquired absence of other specified parts of digestive tract; W01.0XXA Fall on same level from slipping, tripping and stumbling without subsequent striking against object, initial encounter; T87.89 Other complications of amputation stump
CPT/HCPCS: 70450; 72125; 99284; G0463; Q0162

== ENCOUNTER 2024-07-18 14:25 | Outpatient (OUT) | payer MEDICARE, MEDICAID, SELFPAY | END 2024-07-18 14:26 | disposition home or self-care (01) | LOC: WC 14:25 | PROVIDERS: PCP Family Medicine; Visit Provider Physician Assistant | DX: T87.89 Other complications of amputation stump (principal) | CPT/HCPCS: G0463 ==

== ENCOUNTER 2024-07-25 10:34 | Outpatient (OUT) | payer MEDICARE, MEDICAID, SELFPAY ==
--- OUTSIDE RECORDS SUMMARY | 2024-07-25 10:55 | XMS_ITS | CCD ---
Author Organization [facility] Care Team Providers Care Brand Marketing Specialist Name Role Phone PHYSICIAN, DEFAULT Unavailable [...] DELA CRUZ, DR SHAYY Reyes Consulting Unavailable Lynne Hernandez Unavailable Cathie Vargas Unavailable MD Shayy Dela Cruz Primary Care Provider MD Shayy Dela Cruz Attending Provider MD Shayy Dela Cruz Primary Care Provider MD Shayy Dela Cruz Attending Provider FATEMEH Vargas C Attending Provider Unavailable Primary Care Provider UnavailNACHO Alcala Attending Unavailable MARQUES MOROCHO Attending Unavailable Shayy Dela Cruz MD Primary Care Provider Jordyn Bruce DPM Attending Provider Shayy Dela Cruz Primary Care Unavailable Jordyn Bruce Admitting Unavailable Jordyn Bruce Attending Unavailable Cathie Vargas Admitting Unavailable Cathie Vargas Attending Unavailable Allergies Allergy Classification Reported Allergen(s) Allergy Type Date of Onset Reaction(s) Facility (1 source) codeine Drug Allergy 9 [facility] Repository (20 sources) Latex; Translations: [LATEX] Drug allergy (disorder) 9 sores on skin [facility] Repository (20 sources) Codeine; Translations: [CODEINE] Drug Allergy 0 nausea [facility] (19 sources) Latex Drug allergy 5 sores on skin [id number] Other (1 source) Codeine Drug Allergy [facility] Repository (9 sources) cat dander Allergy to substance 4 Sneezing, Itching [facility] (9 sources) dog dander Allergy to substance 4 Sneezing, Itching [facility] (9 sources) ozempic Propensity to adverse reactions 4 Vomiting [facility] (3 sources) Insulin Lispro; Translations: [INSULIN LISPRO] Drug Allergy [facility] ([facility] tomato allergenic extract; Translations: [TOMATO] Drug Allergy 5 [facility] Medications Current Medications Medication Drug Class(es) [...] 0 .ROUTE .COMPLEX 90 March 13, 2024 5:10pm TAKE 1 TABLET BY MOUTH EVERY DAY FOR 90 DAYS Start: 05-12-2023 End: 03-13-2024 take 1 tablet by mouth once daily Atorvastatin 40 mg tablet Discontinued 40 MG PO Daily July 19, 2023 12:00am March 13, 2024 5:10pm Blood-Glucose Meter,Continuo us (Dexcom G7 Auto Brake Mechanic) misc (7 sources) Start: 12-13-2023 Blood-Glucose Meter,Continuous (Dexcom G7 Auto Brake Mechanic) misc Active 0 .Route December 12, 2023 11:00pm As directed Start: 12-13-2023 Blood-Glucose Meter,Continuous (Dexcom G7 Auto Brake Mechanic) misc Active 0 .Route December 13, 2023 12:00am As directed Start: 12-13-2023 Blood-Glucose Meter,Continuous (Dexcom G7 Auto Brake Mechanic) misc Active 0 .ROUTE December 13, 2023 12:00am As directed Blood-Glucose Sensor (Dexcom G7 Sensor) device (7 sources) Start: 12-13-2023 Blood-Glucose Sensor (Dexcom G7 [...] PO Twice daily 180 March 09, 2024 10:42am Start: 07-06-2023 End: 10-10-2023 take 1 tablet by mouth once daily at mealtime Carvedilol 6.25 mg tablet Discontinued 6.25 MG PO Daily July 06, 2023 1:00am October 10, 2023 3:58pm FreeTextSi tablet with food Orally once a day; Note: Source Status: Taking; Refills: 3; Qty: 90 Tablet; Provider: Jose De Jesus Reyes take 1 tablet by [facility] every twenty-four hours Carvedilol 6.25 MG 1 tablet with food Orally once a day for 90 days Active cetirizine hydrochloride 10 mg oral tablet (12 sources) Histamine-1 Receptor Antagonist take 1 tablet by mouth every twenty-four hours ZyrTEC Allergy 10 MG 1 tablet Orally Once a day Active Dexcom G7 Auto Brake Mechanic - (4 sources) Start: 06-03-19 24 Dexcom G7 Auto Brake Mechanic - as directed as directed 4 x daily for 365 days E 11.65, Z 79.4 02 Jun, 2023 Active Dexcom G7 Sensor - (4 sources) Start: 06-03-19 24 Dexcom G7 Sensor - as directed in vitro every 10 days for 90 days E 11.65, Z79.4 Jun, Active esomeprazole 40 mg delayed release oral capsule (20 sources) Proton Pump Inhibitor Start: 03-09-20 take 1 capsule by mouth once daily Esomeprazole Magnesium 40 mg capsule,delayed release(DR/EC) Active 0 .ROUTE .COMPLEX March 09, 2024 10:43am TAKE ONE CAPSULE BY MOUTH DAILY Start: [...] February 07, 2024 8:24am Start: 02-01-2024 End: 07-04-2024 Fluticasone Propionate 50 mcg/actuation spray,suspension Active 2 SPRAY INTRANASAL Daily July 04, 2024 11:36am Start: 11-29-2023 End: 02-07-2024 take 1 puff(s) [...] Fluticasone Propionate 110 mcg/actuation HFA aerosol inhaler (16 sources) Start: 06-18-2024 take 1 puff(s) by inhalation twice daily Fluticasone Propionate 110 mcg/actuation HFA aerosol inhaler Active 2 PUFF INHALATION Twice daily June 18, 2024 4:16pm Start: 04-09-2024 End: 06-18-2024 take 1 puff(s) by inhalation twice daily Fluticasone Propionate 110 mcg/actuation HFA aerosol inhaler Discontinued 2 PUFF INHALATION Twice daily April 09, 2024 5:53pm June 18, 2024 4:16pm Start: 04-09-2024 take 1 puff(s) by in halation twice daily Fluticasone Propionate 110 mcg/actuation HFA aerosol inhaler Active 2 PUFF INHALATION Twice daily April 09, 2024 4:53pm Start: 02-07-2024 End: 04-09-2024 take 1 puff(s) by inhalation twice daily Fluticasone Propionate 110 mcg/actuation HFA aerosol inhaler Discontinued 2 PUFF INHALATION Twice daily February 07, 2024 8:24am April 09, 2024 5:53pm Start: 02-07-2024 End: 04-09-2024 take 1 puff(s) [...] 4:24pm February 07, 2024 8:24am Start: 11-29-2023 End: 02-07-2024 take 1 puff(s) [...] 12:40pm November 29, 2023 4:24pm Start: 07-28-2023 End: 11-29-2023 take 1 puff(s) by inhalation twice daily Fluticasone Propionate 110 mcg/actuation HFA aerosol inhaler Discontinued 2 PUFF INHALATION Twice daily July 28, 2023 11:40am November 29, 2023 3:24pm Start: 07-06-2023 End: 07-28-2023 take 2 puff(s) by mouth twice daily Fluticasone Propionate 110 mcg/actuation HFA aerosol inhaler Discontinued INHALATION July 06, 2023 1:00am July 28, 2023 12:43pm FreeTextSig: INHALE 2 PUFFS BY MOUTH TWICE A DAY; Note: Source Status: Taking; Refills: 1; Qty: 36 Gram; Provider: Jose De Jesus Lucas ( ) Start: 07-06-2023 End: 07-28-2023 take 2 puff(s) by mouth twice daily Fluticasone Propionate 110 mcg/actuation HFA aerosol inhaler Discontinued INHALATION July 06, 2023 12:00am July 28, 2023 11:43am FreeTextSig: INHALE 2 PUFFS BY MOUTH TWICE A DAY; Note: Source Status: Taking; Refills: 1; Qty: 36 Gram; Provider: Jose De Jesus Lucas ( ) FreeStyle Amrik 3 [place] - (3 sources) Start: 06-06-2023 FreeStyle Libr e 3 [place] - as directed invitro 4 times daily for 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 Jun, Active FreeStyle Amrik 3 Sensor - (3 sources) Start: 06-06-2023 FreeStyle Libr e 3 Sensor - as directed invitro change every 14 days for 84 days Dx E11.65 Jun, Active glipiZIDE 10 mg oral tablet (20 sources) Sulfonylurea Start: 08-24-2023 End: 06-06-2024 take 5 mg by mouth twice daily, then take 2 tablets by mouth at mealtime Glipizide 10 mg tablet Active 5 MG PO Twice daily 60 June 06, 2024 9:23am take 5 mg with 2 largest meals [...] Solostar) 300 unit/mL (3 mL) insulin pen (8 sources) Start: 05-28-2024 Insulin Glargi ne U-300 Conc (Toujeo Max U-300 Solostar) 300 unit/mL (3 mL) insulin pen Active 87 UNIT SUBCUT Daily May 28, 2024 10:45am Titrate to 100 u daily, has written instructions. Dispense ToujeoSolostar if any procurement/ delay issues Start: 05-28-2024 Insulin Glargi ne U-300 Conc [...] 87 UNIT SUBCUT Daily March 08, 2024 12:14pm May 28, 2024 10:48am Titrate to 100 u daily, has written [...] pen Discontinued 30 UNIT SUBCUT Daily February 24, 2024 12:00am March 08, 2024 12:15pm Titrate to 100 u daily, has written [...] or insurance preferred 300 December 23, 2023 11:17am Use to cleanse skin before checking blood sugar Start: 07-06-2023 End: 12-23-2023 Alcohol Swabs pads, medicate d Discontinued PAD TOPICAL July 06, 2023 1:00am December 23, [...] 0 .ROUTE .COMPLEX 180 May 28, 2024 6:00pm TAKE 1 TABLET TWICE A DAY Start: 07-06-2023 End: 05-28-2024 take 1 tablet by mouth once daily Metformin 1,000 mg tablet Discontinued 1000 MG PO Daily July 19, 2023 11:06am May 28, 2024 6:00pm FreeTextSi tablet with a meal Orally Once [...] at bedtime as needed September 29, 2023 1:39pm Start: 07-28-2023 End: 09-29-2023 Simethicone (Gas-X Extra Str ength) 125 mg capsule Discontinued 125 MG PO 1 to 2 times per day as needed July 28, 2023 12:00am September 29, 2023 1:40pm sulfamethoxazole 800 mg / trimethoprim 160 mg oral tablet (1 source) Dihydrofolate Reductase Inhibitor Antibacterial, Sulfonamide Antimicrobial Start: 06-07-2024 take 1 tablet by mouth once in the morning sulfamethoxazole-trimethoprim (BACTRIM DS) 800-160 mg per tablet Take 1 tablet by mouth in the morning and 1 tablet before bedtime. 06/07/2024 Active Completed/Discontinued Medications Medication Drug Class(es) Dates Sig (Normalized) Sig (Original) [id number] 200 actuat albuterol 0.09 mg/actuat metered dose inhaler (20 sources) beta2-Adrenergic Agonist Start: 01-23-2024 End: 05-07-2024 take 2 puff(s) by inhalation every four hours as needed Albuterol Sulfate 90 mcg/actuation HFA aerosol inhaler Discontinued 0 .ROUTE .COMPLEX 8.5 March 13, 2024 5:10pm May 07, 2024 11:18am INHALE 2 PUFFS EVERY 4 HOURS NEEDED FOR WHEEZE OR FOR SHORTNESS OF BREATH Start: 07-28-2023 End: 01-23-2024 take 1 puff(s) by inhalation every four hours as needed for wheezing Albuterol Sulfate 90 mcg/actuation HFA aerosol inhaler Discontinued 2 PUFF INHALATION Every 4 hours as needed for shortness of breath or wheezing 8.5 November 29, 2023 4:24pm January 23, [...] Jun, Not-Taking/PRN Blood-Glucose Meter,Continuous (Freestyle Amrik 3 [place]) misc (14 sources) Start: 07-28-2023 End: 12-13-2023 Blood-Glucose Meter,Continuous (Freestyle Amrik 3 [place]) misc Discontinued EACH .ROUTE .MEDSUPPLY July 27, 2023 11:00pm December 13, 2023 12:09pm As directed Start: 07-28-2023 End: 12-13-2023 Blood-Glucose Meter,Continuo us (Freestyle Amrik 3 [place]) misc Discontinued EACH .ROUTE .MEDSUPPLY July 28, 2023 12:00am December 13, 2023 1:09pm As directed Start: 07-28-2023 Blood-Glucose Meter,Continuous (Freestyle Amrik 3 [place]) misc Active EACH .ROUTE .MEDSUPPLY July 28, 2023 12:00am As directed Blood-Glucose Sensor (Freest yle Amrik 3 Sensor) device (14 sources) Start: 07-28-2023 End: 12-13-2023 Blood-Glucose Sensor [...] directed Esomeprazole Magnesium 40 mg capsule,delayed release(DR/EC) (3 sources) Start: 02-06-2024 End: 03-09-2024 take 1 capsule by mouth once daily Esomeprazole Magnesium 40 mg capsule,delayed release(DR/EC) Discontinued 0 .ROUTE .COMPLEX February 06, 2024 9:00am March 09, 2024 10:43am TAKE ONE CAPSULE BY MOUTH DAILY Start: 02-06-2024 End: 03-09-2024 take 1 capsule by mouth once daily Esomeprazole Magnesium 40 mg capsule,delayed release(DR/EC) Discontinued 0 .ROUTE .COMPLEX February 06, 2024 8:00am March 09, 2024 9:43am TAKE ONE CAPSULE BY MOUTH DAILY famotidine 20 mg oral tablet (20 sources) Histamine-2 Receptor Antagonist Start: 08-22-2023 End: 03-09-2024 take 1 tablet by mouth once daily at bedtime as needed Famotidine 20 mg tablet Discontinued 20 MG PO Daily at bedtime as needed September 29, 2023 1:37pm March 09, 2024 10:43am Insulin Aspart U-100 (Novolog Flexpen U-100 Insulin) 100 unit/mL (3 mL) insulin pen (15 sources) Start: 07-12-2023 End: 07-19-2023 inject 1 [...] 84 UNIT SUBCUT Daily February 23, 2024 1:pm May 30, 2024 12:00pm Start: 02-23-2024 End: 05-30-2024 Insulin Glargine U-300 [...] SUBCUT Use as Directed February 23, 2024 1:21pm March 07, 2024 6:26pm 1:3 ICR ac TID plus 1:10 Corrective [...] MG PO Daily October 11, 2023 8:39am March 09, 2024 10:43am Start: 07-06-2023 End: 07-19-2023 take 1 tablet by mouth once daily Losartan 25 mg tablet Discontinued 1 TAB PO Daily July 06, 2023 1:00am July 19, 2023 11:12am FreeTextSi tablet Orally Once a day; Note: Source Status: Taking; Provider: Sam Brand ( ) meloxicam 15 mg oral tablet (10 sources) Nonsteroidal Anti-inflammatory Drug Start: 09-29-2023 End: 12-05-2023 take 1 tablet by mouth once daily Meloxicam 15 mg tablet Discontinued 15 MG PO Daily September 29, 2023 12:00am December 05, 2023 11:28am Semaglutide (13 sources) Start: 07-28-2023 End: 08-19-2023 Semaglutide (Ozempic) [...] a day; Note: Source Status: Not-TakingundefinedPRN; Provider: Sma Brand ( ) take 1 [...] angina pectoris; Translations: [Atherosclerotic heart disease of [place] coronary artery without angina pectoris] Onset: 07-12-2022 [...] Onset: 07-13-2022 Chronic Fracture of upper limb (19 sources) Fracture at wrist and/or hand level; [...] UNS SITE] Onset: 11-09-2021 Chronic Other aftercare (18 sources) [facility] (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 of insulin; Translations: [Long-term (current) [...] injuries and conditions due to external causes (14 sources) Fracture of bone; Translations: [Other injury of unspecified body region, initial encounter] 07-28-2023 Episodic Other non-traumatic joint disorders (5 sources) Shoulder pain; Translations: [Pain in left shoulder] Episodic Other non-traumatic joint disorders (13 sources) Pain in left shoulder; Translations: [Left shoulder pain] Episodic Other non-traumatic joint disorders (10 sources) Ankle pain; Translations: [Pain in right [...] Chronic Other nutritional; endocrine; and metabolic disorders (14 sources) Body mass index 30+ - obesity; Translations: [Body mass index (BMI) 37.0-37.9, adult] 07-28-2023 Chronic Other screening for suspected conditions (not mental disorders or infectious disease) (20 sources) Encounter for screening mammogram for malignant [...] [facility] (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; Translations: [BODY SHOP MECHANIC CURRENT USE OF ASPIRIN] Onset: 04-08-2022 Episodic Other aftercare (1 source) [facility] (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 of oral hypoglycemic drugs; Translations: [BODY SHOP MECHANIC USE ORAL HYPOGLYCEMIC DX] Onset: 04-08-2022 Episodic Other aftercare (1 source) Other jail (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 therapy; Translations: [OTH USP CURRENT DRUG THERAPY] Onset: 11-09-2021 Episodic Other [...] Test Name Value Interpretation Reference Range Facility Pathology study report docum entOrdered By: Tejal Church on 07-10-2024 Pathology study [facility] Other Aren 07-05-2024 L Specimen: [id number] Received: 07/06/24 Status: SAM Cook Num: [id number] Spec Type: Surgical Subm Dr: Jordyn Bruce DPM, Tissues: A DIGIT AMPUTATION (2ND LEFT TOE PARTIAL) B DIGIT AMPUTATION (3RD LEFT TOE) Procedures: HE/5, Gross/Micro L4/2, Decalcification/2 Age/ Patient Sex Location Account Attending Physician Zoila Ramos 54/F [facility] [id number] Jordyn Bruce DPM, MS SPEC NUM: [id number] RECD: 07/06/24 STATUS: SAM COOK NUM: [id number] JESSICA: 07/05/24 [facility] DR: Jordyn Bruec DPM, MS ENTERED: 07/06/24 [facility] DR: Chasity Jones SPEC TYPE: Surgical DEPT: AVERY GARCIA ORDERED: HE/5, Gross/Micro L4/2, Decalcification/2 ORDERED: HE/5, Gross/Micro L4/2, Decalcification/2 Pathological Diagnosis A, left second toe, partial amputation: -Severe necrotizing and ischemic ulceration in skin to adjacent soft tissue -Vary close proximal margin to the necrotizing skin ulcer -Mild nonspecific degeneration of the adjacent toe bone without acute inflammation -Separate trimmed / detached piece of viable skin with mild nonspecific reactive vascular congestion and proliferation in dermis B, left third toe amputation: -Severe necrotizing and ischemic ulceration of toe with mildly associated acute osteomyelitis -Vary close proximal margin to the necrotizing skin ulcer -Separate trimmed / detached piece of viable skin with reactive hyperemia in dermis Clinical Information Diabetic foot ulcer, left second and third toes Specimen: [id number] Received: 07/06/24 Status: VADIMSophie Cook Num: [id number] Spec Type: Surgical Subm Dr: Jordyn Bruce DPM, MS Tissues: A DIGIT AMPUTATION (2ND LEFT TOE PARTIAL) B DIGIT AMPUTATION (3RD LEFT TOE) Procedures: HE/5, Gross/Micro L4/2, Decalcification/2 Patient: Zoila Ramos [id number] (Continued) Specimen: [id number] Received: 07/06/24 (Continued) Signed (signature on file) Tejal Church MD 07/10/24 1438 Specimen: [id number] Received: 07/06/24 Status: SAM Cook Num: [id number] Spec Type: Surgical Subm Dr: Jordyn Bruce,[place], [place] Tissues: A DIGIT AMPUTATION (2ND LEFT TOE PARTIAL) B DIGIT AMPUTATION (3RD LEFT TOE) Procedures: HE/5, Gross/Micro L4/2, Decalcification/2 Patient: Zoila Ramos [id number] (Continued) Specimen: [id number] Received: 07/06/24 (Continued) Gross Description Part A is received in formalin labeled with the patients name, date of , and second left toe partial is a digit disarticulated at the second left proximal interphalangeal joint, 2.8 cm in length by up to 2 cm in diameter with detached fragments of skin, 2.8 x 1.7 x 1 cm in aggregate. The digit displays a crusted wound, 1.2 x 0.8 cm that is situated adjacent (less than 0.1 cm) from the proximal skin margin. The dorsal distal aspect of the specimen displays a sheet of shane-brown keratinized nail, 1.1 x 1 x 0.4 cm. Cassettes: A1 Rn Clinical section of the wound with underlying central second phalangeal bone, decalcified A2 Tangential sections of proximal skin margin A3 Detached skin ( 3, ss, [id number] A)J Part B is received in formalin labeled with the patients name, date of , and third left toe is a digit disarticulated at the left third proximal interphalangeal joint, 2.5 cm in length by 2.2 cm in diameter with a detached strip of skin, 1 x 0.6 x 0.5 cm. The dorsal distal aspect of the specimen displays a sheet of shane-washington, keratinized nail, 1 x 0.6 x 0.2 cm. The proximal skin margin displays a rim of shane-washington and wrinkled skin, ranging from 0.1 to 0.5 cm in thickness. The remainder the digit is indurated, and covered by purple-brown plaque-like material. The detached strip of skin is inked black. Cassettes: B1 Longitudinal section of indurated digit with underlying third distal and central phalangeal bone, decalcified B2 Tangential sections of proximal skin margin with sales representative wire rope sec (more content not included)... Normal [facility] Orders Onlyon 06-25-2024 Orders Only [id number] RichardZoila Sidhu 1970 F Date Provider Department Center 06/25/2024 Shila-JESSICA STONE MAD[facility]N [facility] No family history on file [facility] Activated partial thrombopla stin time (aPTT) in platelet poor plasma by coagulation aon 06-19-2024 aPTT Coag (PPP) [Time] Activated partial thromboplastin time (aPTT) in platelet poor plasma by coagulation a 22.3-36.2 [facility] Basophils Auto (Bld) [#/Vol] on 06-19-2024 Basophils (Bld) [#/Vol] Automated basophil count 0.0-0.1 [facility] Basophils/100 WBC Auto (Bld) on 06-19-2024 Basophils/100 WBC (Bld) Automated basophil % 0.2-2.0 [facility] Eosinophils/100 WBC Auto (Bl d)on 06-19-2024 Eosinophils/100 WBC (Bld) Automated eosinophil % 0.9-7.0 [facility] Erythrocyte distribution wid th Auto (RBC) [Ratio]on 06-19-2024 Erythrocyte distribution width (RBC) [Ratio] Erythrocyte distribution width [Ratio] by Automated count 11.0-15.0 [facility] Estimated glomerular filtrat ion rate (GFR) non- Americanon 06-19-2024 GFR/1.73 sq M.predicted among non-blacks MDRD (S/P/Bld) [Vol rate/Area] Estimated glomerular filtration rate (GFR) non- >=60 mL/min/1.73m 2 [facility] Globulin Calc (S) [Mass/Vol] on 06-19-2024 Globulin (S) [Mass/Vol] Serum globulin measurement by calculation (mass/volume) [facility] Hematocrit Auto (Bld) [Volum e fraction]on 06-19-2024 Hematocrit (Bld) [Volume fraction] Hematocrit [Volume Fraction] of Blood by Automated count 36.0-48.0 [facility] Hemoglobin [Mass/volume] in Bloodon 06-19-2024 Hemoglobin (Bld) [Mass/Vol] Hemoglobin [Mass/volume] in Blood 12.0-16.0 [facility] INR in Platelet poor plasma by Coagulation assayon 06-19-2024 INR Coag (PPP) [Relative time] INR in Platelet poor plasma by Coagulation assay [facility] Comment on above: DESIRED INR:2.0-3.0 CONDITIONS NOT LISTED BELOW2.5-3.5 FOR PROSTHETIC HEART VALVE REPLACEMENT2.5-3.5 RECURRENT THROMBOSIS Laboratory - Chemistry and C hemistry - challengeon 06-19-2024 Albumin [Mass/Vol] 3.3 g/dL Low 3.4-5.0 [facility] ALP [Catalytic activity/Vol] 110 U/L 46-116 [facility] ALT [Catalytic activity/Vol] 44 U/L 14-59 [facility] AST [Catalytic activity/Vol] 23 U/L 15-37 [facility] Bilirubin [Mass/Vol] 0.3 mg/dL 0.2-1.0 [facility] Calcium [Mass/Vol] 9.3 mg/dL 8.5-10.1 [facility] Chloride [Moles/Vol] 102 mmol/L 98-107 [facility] CO2 [Moles/Vol] 27.9 mmol/L 21.0-32.0 [facility] Creatinine [Mass/Vol] 0.88 mg/dL 0.55-1.02 [facility] GFR/1.73 sq M.predicted MDRD (S/P/Bld) [Vol rate/Area] mL/min/{1.73_m2} >=60 mL/min/1.73m 2 [facility] Glucose [Mass/Vol] 175 mg/dL High 74-106 [facility] Lipase [Catalytic activity/Vol] 28.0 U/L 16.0-77.0 [facility] Potassium [Moles/Vol] 4.2 mmol/L 3.5-5.1 [facility] Protein [Mass/Vol] 7.6 g/dL 6.4-8.2 [facility] Sodium [Moles/Vol] 137 mmol/L 136-145 [facility] Urea nitrogen [Mass/Vol] 12.0 mg/dL 7.0-18.0 [facility] Urea nitrogen/Creatinine [Mass ratio] 13.6 mg/mg [facility] Laboratory - Hematology and Cell countson 06-19-2024 Immature granulocytes/100 WBC (Bld) 0.1 % 0.0-0.5 [facility] Leukocytes [#/volume] correc alma delia for nucleated erythrocytes in Blood by Automated counon 06-19-2024 WBC corrected for nucl RBC Auto (Bld) [#/Vol] Leukocytes [#/volume] corrected for nucleated erythrocytes in Blood by Automated coun 4.0-11.0 [facility] Lymphocytes Auto (Bld) [#/Vo l]on 06-19-2024 Lymphocytes (Bld) [#/Vol] Lymphocytes [#/volume] in Blood by Automated count 1.2-3.8 [facility] Lymphocytes/100 WBC Auto (Bl d)on 06-19-2024 Lymphocytes/100 WBC (Bld) Lymphocytes/100 leukocytes in Blood by Automated count 20.5-60.0 [facility] MCH Auto (RBC) [Entitic mass ]on 06-19-2024 MCH (RBC) [Entitic mass] MCH [Entitic mass] by Automated count 26.7-34.0 [facility] MCHC Auto (RBC) [Mass/Vol]on 06-19-2024 MCHC (RBC) [Mass/Vol] MCHC [Mass/volume] by Automated count 29.9-35.2 [facility] MCV Auto (RBC) [Entitic vol] on 06-19-2024 MCV (RBC) [Entitic vol] MCV [Entitic volume] by Automated count 81.0-99.0 [facility] Monocytes Auto (Bld) [#/Vol] on 06-19-2024 Monocytes (Bld) [#/Vol] Automated blood monocyte count 0.3-0.8 [facility] Monocytes/100 WBC Auto (Bld) on 06-19-2024 Monocytes/100 WBC (Bld) Automated monocyte % 1.7-12.0 [facility] Neutrophils Auto (Bld) [#/Vo l]on 06-19-2024 Neutrophils (Bld) [#/Vol] Neutrophils [#/volume] in Blood by Automated count 1.4-6.5 [facility] Neutrophils/100 WBC Auto (Bl d)on 06-19-2024 Neutrophils/100 WBC (Bld) Automated neutrophil % 43.0-75.0 [facility] No Panel Informationon 06-19 Eosinophils # (Auto) 0.2 10 3/uL 0.0-0.7 [facility] Immature Granulocyte # (Auto) 0.01 10 3/uL 0.00-0.03 [facility] Office Visiton 06-19-2024 Follow-up visit [id number] RichardZoila crook Thea 1970 F Date Provider Department Center 06/19/2024 Jay8-MARQUES MOROCHO CARD [facility] No family history on file Level of Service:46863 IN OFFICE/OUTPATIENT ESTABLISHED MOD MDM 30 MIN [facility] Platelet mean volume Auto (B ld) [Entitic vol]on 06-19-2024 Platelet mean volume (Bld) [Entitic vol] Platelet mean volume [Entitic volume] in Blood by Automated count 9.5-13.5 [facility] Platelets Auto (Bld) [#/Vol] on 06-19-2024 Platelets (Bld) [#/Vol] Platelets [#/volume] in Blood by Automated count 150-450 [facility] Prothrombin time (PT)on 06-02 PT Coag (PPP) [Time] Prothrombin time (PT) 9.0-11.6 [facility] RBC Auto (Bld) [#/Vol]on RBC (Bld) [#/Vol] Erythrocytes [#/volume] in Blood by Automated count 4.20-5.40 [facility] Serum or plasma albumin/glob ulin mass ratioon 06-19-2024 Albumin/Globulin [Mass ratio] Serum or plasma albumin/globulin mass ratio [facility] Serum or plasma anion gap de terminationon 06-19-2024 Anion gap [Moles/Vol] Serum or plasma anion gap determination [facility] Cholesterol in LDL Calc [Mas s/Vol]on 06-12-2024 Cholesterol in LDL [Mass/Vol] Cholesterol in LDL [Mass/volume] in Serum or Plasma by calculation [facility] Comment on above: <100 mg/dl [id number] 0-129 mg/dl NEAR OR ABOVE [id number] mg/dl BORDERLINE [id number] mg/dl HIGH>190 mg/dl VERY HIGH Cholesterol in VLDL Calc [Ma ss/Vol]on 06-12-2024 Cholesterol in VLDL [Mass/Vol] Cholesterol in VLDL [Mass/volume] in Serum or Plasma by calculation [facility] Estimated glomerular filtrat ion rate (GFR) non- Americanon 06-12-2024 GFR/1.73 sq M.predicted among non-blacks MDRD (S/P/Bld) [Vol rate/Area] Estimated glomerular filtration rate (GFR) non- >=60 mL/min/1.73m 2 [facility] Globulin Calc (S) [Mass/Vol] on 06-12-2024 Globulin (S) [Mass/Vol] Serum globulin measurement by calculation (mass/volume) [facility] Laboratory - Chemistry and C hemistry - challengeon 06-12-2024 Albumin [Mass/Vol] 3.1 g/dL Low 3.4-5.0 [facility] ALP [Catalytic activity/Vol] 118 U/L High 46-116 [facility] ALT [Catalytic activity/Vol] 36 U/L 14-59 [facility] AST [Catalytic activity/Vol] 18 U/L 15-37 [facility] Bilirubin [Mass/Vol] 0.3 mg/dL 0.2-1.0 [facility] Calcium [Mass/Vol] 9.1 mg/dL 8.5-10.1 [facility] Chloride [Moles/Vol] 102 mmol/L 98-107 [facility] Cholesterol [Mass/Vol] 124 mg/dL <=200 [facility] Cholesterol in HDL [Mass/Vol] 43 mg/dL 40-60 [facility] Comment on above: > or =60 mg/dl - LOW CARDIOVASCULAR RISK<40 mg/dl - HIGH CARDIOVASCULAR RISK CO2 [Moles/Vol] 28.4 mmol/L 21.0-32.0 [facility] Cobalamin (Vitamin B12) [Mass/Vol] 998 pg/mL 232-1245 [facility] Comment on above: Performed at: [facility] [id number] [place], [place] [id number] Director: Gerald Jacobs PhD, Phone: [phone] Creatinine [Mass/Vol] 0.87 mg/dL 0.55-1.02 [facility] GFR/1.73 sq M.predicted MDRD (S/P/Bld) [Vol rate/Area] mL/min/{1.73_m2} >=60 mL/min/1.73m 2 [facility] Glucose [Mass/Vol] 197 mg/dL High 74-106 [facility] Potassium [Moles/Vol] 4.5 mmol/L 3.5-5.1 [facility] Protein [Mass/Vol] 7.3 g/dL 6.4-8.2 [facility] Sodium [Moles/Vol] 142 mmol/L 136-145 [facility] Triglyceride [Mass/Vol] 68 mg/dL <=150 [facility] Urea nitrogen [Mass/Vol] 11.0 mg/dL 7.0-18.0 [facility] Urea nitrogen/Creatinine [Mass ratio] 12.6 mg/mg [facility] No Panel Informationon 06-12 25-Hydroxy Vitamin D Total 44.6 ng/mL [facility] Comment on above: <20 ng/mL Vit D defi cient20-<30 ng/mL Vit D [id number] ng/mL Vit D sufficient>100 ng/mL Potential Toxicity Serum or plasma albumin/glob ulin mass ratioon 06-12-2024 Albumin/Globulin [Mass ratio] Serum or plasma albumin/globulin mass ratio [facility] Serum or plasma anion gap de terminationon 06-12-2024 Anion gap [Moles/Vol] Serum or plasma anion gap determination [facility] Serum or plasma total choles terol/high density lipoprotein (HDL) cholesterol mass jaun 06-12-2024 Cholesterol.total/Ch olesterol in HDL [Mass ratio] Serum or plasma total cholesterol/high density lipoprotein (HDL) cholesterol mass rat [facility] Comment on above: 3.3 - 4.4 LOW RISK4. 4 - 7.1 AVERAGE RISK7.1 - 11.0 MODERATE RISK>11.0 HIGH RISK Basophils Auto (Bld) [#/Vol] on 06-07-2024 Basophils (Bld) [#/Vol] Automated basophil count 0.0-0.1 [facility] Basophils/100 WBC Auto (Bld) on 06-07-2024 Basophils/100 WBC (Bld) Automated basophil % 0.2-2.0 [facility] Eosinophils/100 WBC Auto (Bl d)on 06-07-2024 Eosinophils/100 WBC (Bld) Automated eosinophil % 0.9-7.0 [facility] Erythrocyte distribution wid th Auto (RBC) [Ratio]on 06-07-2024 Erythrocyte distribution width (RBC) [Ratio] Erythrocyte distribution width [Ratio] by Automated count 11.0-15.0 [facility] Estimated glomerular filtrat ion rate (GFR) non- Americanon 06-07-2024 GFR/1.73 sq M.predicted among non-blacks MDRD (S/P/Bld) [Vol rate/Area] Estimated glomerular filtration rate (GFR) non- >=60 mL/min/1.73m 2 [facility] Globulin Calc (S) [Mass/Vol] on 06-07-2024 Globulin (S) [Mass/Vol] Serum globulin measurement by calculation (mass/volume) [facility] Hematocrit Auto (Bld) [Volum e fraction]on 06-07-2024 Hematocrit (Bld) [Volume fraction] Hematocrit [Volume Fraction] of Blood by Automated count 36.0-48.0 [facility] Hemoglobin [Mass/volume] in Bloodon 06-07-2024 Hemoglobin (Bld) [Mass/Vol] Hemoglobin [Mass/volume] in Blood 12.0-16.0 [facility] Laboratory - Chemistry and C hemistry - challengeon 06-07-2024 Lactate [Moles/Vol] 1.9 mmol/L 0.4-2.0 [facility] Albumin [Mass/Vol] 3.3 g/dL Low 3.4-5.0 [facility] ALP [Catalytic activity/Vol] 115 U/L 46-116 [facility] ALT [Catalytic activity/Vol] 39 U/L 14-59 [facility] AST [Catalytic activity/Vol] 16 U/L 15-37 [facility] Bilirubin [Mass/Vol] 0.2 mg/dL 0.2-1.0 [facility] Calcium [Mass/Vol] 9.4 mg/dL 8.5-10.1 [facility] Chloride [Moles/Vol] 104 mmol/L 98-107 [facility] CO2 [Moles/Vol] 27.1 mmol/L 21.0-32.0 [facility] Creatinine [Mass/Vol] 0.86 mg/dL 0.55-1.02 [facility] GFR/1.73 sq M.predicted MDRD (S/P/Bld) [Vol rate/Area] mL/min/{1.73_m2} >=60 mL/min/1.73m 2 [facility] Glucose [Mass/Vol] 157 mg/dL High 74-106 [facility] Potassium [Moles/Vol] 4.4 mmol/L 3.5-5.1 [facility] Protein [Mass/Vol] 7.3 g/dL 6.4-8.2 [facility] Sodium [Moles/Vol] 142 mmol/L 136-145 [facility] Urea nitrogen [Mass/Vol] 23.0 mg/dL High 7.0-18.0 [facility] Urea nitrogen/Creatinine [Mass ratio] 26.7 mg/mg [facility] Laboratory - Hematology and Cell countson 06-07-2024 ESR (Bld) [Velocity] 41 mm/h High <=30 [facility] Immature granulocytes/100 WBC (Bld) 0.2 % 0.0-0.5 [facility] Leukocytes [#/volume] correc alma delia for nucleated erythrocytes in Blood by Automated counon 06-07-2024 WBC corrected for nucl RBC Auto (Bld) [#/Vol] Leukocytes [#/volume] corrected for nucleated erythrocytes in Blood by Automated coun 4.0-11.0 [facility] Lymphocytes Auto (Bld) [#/Vo l]on 06-07-2024 Lymphocytes (Bld) [#/Vol] Lymphocytes [#/volume] in Blood by Automated count 1.2-3.8 [facility] Lymphocytes/100 WBC Auto (Bl d)on 06-07-2024 Lymphocytes/100 WBC (Bld) Lymphocytes/100 leukocytes in Blood by Automated count 20.5-60.0 [facility] MCH Auto (RBC) [Entitic mass ]on 06-07-2024 MCH (RBC) [Entitic mass] MCH [Entitic mass] by Automated count 26.7-34.0 [facility] MCHC Auto (RBC) [Mass/Vol]on 06-07-2024 MCHC (RBC) [Mass/Vol] MCHC [Mass/volume] by Automated count 29.9-35.2 [facility] MCV Auto (RBC) [Entitic vol] on 06-07-2024 MCV (RBC) [Entitic vol] MCV [Entitic volume] by Automated count 81.0-99.0 [facility] Monocytes Auto (Bld) [#/Vol] on 06-07-2024 Monocytes (Bld) [#/Vol] Automated blood monocyte count 0.3-0.8 [facility] Monocytes/100 WBC Auto (Bld) on 06-07-2024 Monocytes/100 WBC (Bld) Automated monocyte % 1.7-12.0 [facility] Neutrophils Auto (Bld) [#/Vo l]on 06-07-2024 Neutrophils (Bld) [#/Vol] Neutrophils [#/volume] in Blood by Automated count 1.4-6.5 [facility] Neutrophils/100 WBC Auto (Bl d)on 06-07-2024 Neutrophils/100 WBC (Bld) Automated neutrophil % 43.0-75.0 [facility] No Panel Informationon 06-07 C-Reactive Protein, Quantitative 1.46 mg/dL High <=0.50 [facility] Eosinophils # (Auto) 0.3 10 3/uL 0.0-0.7 [facility] Immature Granulocyte # (Auto) 0.02 10 3/uL 0.00-0.03 [facility] Platelet mean volume Auto (B ld) [Entitic vol]on 06-07-2024 Platelet mean volume (Bld) [Entitic vol] Platelet mean volume [Entitic volume] in Blood by Automated count 9.5-13.5 [facility] Platelets Auto (Bld) [#/Vol] on 06-07-2024 Platelets (Bld) [#/Vol] Platelets [#/volume] in Blood by Automated count 150-450 [facility] RBC Auto (Bld) [#/Vol]on RBC (Bld) [#/Vol] Erythrocytes [#/volume] in Blood by Automated count 4.20-5.40 [facility] Serum or plasma albumin/glob ulin mass ratioon 06-07-2024 Albumin/Globulin [Mass ratio] Serum or plasma albumin/globulin mass ratio [facility] Serum or plasma anion gap de terminationon 06-07-2024 Anion gap [Moles/Vol] Serum or plasma anion gap determination [facility] Basophils Auto (Bld) [#/Vol] on 06-01-2024 Basophils (Bld) [#/Vol] Automated basophil count 0.0-0.1 [facility] Basophils/100 WBC Auto (Bld) on 06-01-2024 Basophils/100 WBC (Bld) Automated basophil % 0.2-2.0 [facility] Eosinophils/100 WBC Auto (Bl d)on 06-01-2024 Eosinophils/100 WBC (Bld) Automated eosinophil % 0.9-7.0 [facility] Erythrocyte distribution wid th Auto (RBC) [Ratio]on 06-01-2024 Erythrocyte distribution width (RBC) [Ratio] Erythrocyte distribution width [Ratio] by Automated count 11.0-15.0 [facility] Estimated glomerular filtrat ion rate (GFR) non- Americanon 06-01-2024 GFR/1.73 sq M.predicted among non-blacks MDRD (S/P/Bld) [Vol rate/Area] Estimated glomerular filtration rate (GFR) non- Low >=60 mL/min/1.73m 2 [facility] Hematocrit Auto (Bld) [Volum e fraction]on 06-01-2024 Hematocrit (Bld) [Volume fraction] Hematocrit [Volume Fraction] of Blood by Automated count 36.0-48.0 [facility] Hemoglobin [Mass/volume] in Bloodon 06-01-2024 Hemoglobin (Bld) [Mass/Vol] Hemoglobin [Mass/volume] in Blood 12.0-16.0 [facility] Laboratory - Chemistry and C hemistry - challengeon 06-01-2024 Calcium [Mass/Vol] 9.0 mg/dL 8.5-10.1 [facility] Chloride [Moles/Vol] 105 mmol/L 98-107 [facility] CO2 [Moles/Vol] 29.8 mmol/L 21.0-32.0 [facility] Creatinine [Mass/Vol] 1.01 mg/dL 0.55-1.02 [facility] GFR/1.73 sq M.predicted MDRD (S/P/Bld) [Vol rate/Area] mL/min/{1.73_m2} >=60 mL/min/1.73m 2 [facility] Glucose [Mass/Vol] 171 mg/dL High 74-106 [facility] Potassium [Moles/Vol] 4.6 mmol/L 3.5-5.1 [facility] Sodium [Moles/Vol] 140 mmol/L 136-145 [facility] Urea nitrogen [Mass/Vol] 15.0 mg/dL 7.0-18.0 [facility] Urea nitrogen/Creatinine [Mass ratio] 14.9 mg/mg [facility] Laboratory - Hematology and Cell countson 06-01-2024 Immature granulocytes/100 WBC (Bld) 0.3 % 0.0-0.5 [facility] Leukocytes [#/volume] correc alma delia for nucleated erythrocytes in Blood by Automated counon 06-01-2024 WBC corrected for nucl RBC Auto (Bld) [#/Vol] Leukocytes [#/volume] corrected for nucleated erythrocytes in Blood by Automated coun 4.0-11.0 [facility] Lymphocytes Auto (Bld) [#/Vo l]on 06-01-2024 Lymphocytes (Bld) [#/Vol] Lymphocytes [#/volume] in Blood by Automated count 1.2-3.8 [facility] Lymphocytes/100 WBC Auto (Bl d)on 06-01-2024 Lymphocytes/100 WBC (Bld) Lymphocytes/100 leukocytes in Blood by Automated count 20.5-60.0 [facility] MCH Auto (RBC) [Entitic mass ]on 06-01-2024 MCH (RBC) [Entitic mass] MCH [Entitic mass] by Automated count 26.7-34.0 [facility] MCHC Auto (RBC) [Mass/Vol]on 06-01-2024 MCHC (RBC) [Mass/Vol] MCHC [Mass/volume] by Automated count 29.9-35.2 [facility] MCV Auto (RBC) [Entitic vol] on 06-01-2024 MCV (RBC) [Entitic vol] MCV [Entitic volume] by Automated count 81.0-99.0 [facility] Monocytes Auto (Bld) [#/Vol] on 06-01-2024 Monocytes (Bld) [#/Vol] Automated blood monocyte count 0.3-0.8 [facility] Monocytes/100 WBC Auto (Bld) on 06-01-2024 Monocytes/100 WBC (Bld) Automated monocyte % 1.7-12.0 [facility] Neutrophils Auto (Bld) [#/Vo l]on 06-01-2024 Neutrophils (Bld) [#/Vol] Neutrophils [#/volume] in Blood by Automated count 1.4-6.5 [facility] Neutrophils/100 WBC Auto (Bl d)on 06-01-2024 Neutrophils/100 WBC (Bld) Automated neutrophil % 43.0-75.0 [facility] No Panel Informationon 06-01 Eosinophils # (Auto) 0.2 10 3/uL 0.0-0.7 [facility] Immature Granulocyte # (Auto) 0.02 10 3/uL 0.00-0.03 [facility] Platelet mean volume Auto (B ld) [Entitic vol]on 06-01-2024 Platelet mean volume (Bld) [Entitic vol] Platelet mean volume [Entitic volume] in Blood by Automated count 9.5-13.5 [facility] Platelets Auto (Bld) [#/Vol] on 06-01-2024 Platelets (Bld) [#/Vol] Platelets [#/volume] in Blood by Automated count 150-450 [facility] RBC Auto (Bld) [#/Vol]on RBC (Bld) [#/Vol] Erythrocytes [#/volume] in Blood by Automated count 4.20-5.40 [facility] Serum or plasma anion gap de terminationon 06-01-2024 Anion gap [Moles/Vol] Serum or plasma anion gap determination [facility] Basophils Auto (Bld) [#/Vol] on 05-16-2024 Basophils (Bld) [#/Vol] Automated basophil count 0.0-0.1 [facility] Basophils/100 WBC Auto (Bld) on 05-16-2024 Basophils/100 WBC (Bld) Automated basophil % 0.2-2.0 [facility] Eosinophils/100 WBC Auto (Bl d)on 05-16-2024 Eosinophils/100 WBC (Bld) Automated eosinophil % 0.9-7.0 [facility] Erythrocyte distribution wid th Auto (RBC) [Ratio]on 05-16-2024 Erythrocyte distribution width (RBC) [Ratio] Erythrocyte distribution width [Ratio] by Automated count 11.0-15.0 [facility] Estimated glomerular filtrat ion rate (GFR) non- Americanon 05-16-2024 GFR/1.73 sq M.predicted among non-blacks MDRD (S/P/Bld) [Vol rate/Area] Estimated glomerular filtration rate (GFR) non- Low >=60 mL/min/1.73m 2 [facility] Hematocrit Auto (Bld) [Volum e fraction]on 05-16-2024 Hematocrit (Bld) [Volume fraction] Hematocrit [Volume Fraction] of Blood by Automated count 36.0-48.0 [facility] Hemoglobin [Mass/volume] in Bloodon 05-16-2024 Hemoglobin (Bld) [Mass/Vol] Hemoglobin [Mass/volume] in Blood 12.0-16.0 [facility] Laboratory - Chemistry and C hemistry - challengeon 05-16-2024 Calcium [Mass/Vol] 9.1 mg/dL 8.5-10.1 [facility] Chloride [Moles/Vol] 104 mmol/L 98-107 [facility] CO2 [Moles/Vol] 30.6 mmol/L 21.0-32.0 [facility] Creatinine [Mass/Vol] 1.01 mg/dL 0.55-1.02 [facility] GFR/1.73 sq M.predicted MDRD (S/P/Bld) [Vol rate/Area] mL/min/{1.73_m2} >=60 mL/min/1.73m 2 [facility] Glucose [Mass/Vol] 206 mg/dL High 74-106 [facility] Potassium [Moles/Vol] 5.1 mmol/L 3.5-5.1 [facility] Sodium [Moles/Vol] 141 mmol/L 136-145 [facility] Urea nitrogen [Mass/Vol] 12.0 mg/dL 7.0-18.0 [facility] Urea nitrogen/Creatinine [Mass ratio] 11.9 mg/mg [facility] Laboratory - Hematology and Cell countson 05-16-2024 ESR (Bld) [Velocity] 28 mm/h <=30 [facility] Immature granulocytes/100 WBC (Bld) 0.3 % 0.0-0.5 [facility] Leukocytes [#/volume] correc alma delia for nucleated erythrocytes in Blood by Automated counon 05-16-2024 WBC corrected for nucl RBC Auto (Bld) [#/Vol] Leukocytes [#/volume] corrected for nucleated erythrocytes in Blood by Automated coun 4.0-11.0 [facility] Lymphocytes Auto (Bld) [#/Vo l]on 05-16-2024 Lymphocytes (Bld) [#/Vol] Lymphocytes [#/volume] in Blood by Automated count 1.2-3.8 [facility] Lymphocytes/100 WBC Auto (Bl d)on 05-16-2024 Lymphocytes/100 WBC (Bld) Lymphocytes/100 leukocytes in Blood by Automated count 20.5-60.0 [facility] MCH Auto (RBC) [Entitic mass ]on 05-16-2024 MCH (RBC) [Entitic mass] MCH [Entitic mass] by Automated count 26.7-34.0 [facility] MCHC Auto (RBC) [Mass/Vol]on 05-16-2024 MCHC (RBC) [Mass/Vol] MCHC [Mass/volume] by Automated count 29.9-35.2 [facility] MCV Auto (RBC) [Entitic vol] on 05-16-2024 MCV (RBC) [Entitic vol] MCV [Entitic volume] by Automated count 81.0-99.0 [facility] Monocytes Auto (Bld) [#/Vol] on 05-16-2024 Monocytes (Bld) [#/Vol] Automated blood monocyte count 0.3-0.8 [facility] Monocytes/100 WBC Auto (Bld) on 05-16-2024 Monocytes/100 WBC (Bld) Automated monocyte % 1.7-12.0 [facility] Neutrophils Auto (Bld) [#/Vo l]on 05-16-2024 Neutrophils (Bld) [#/Vol] Neutrophils [#/volume] in Blood by Automated count 1.4-6.5 [facility] Neutrophils/100 WBC Auto (Bl d)on 05-16-2024 Neutrophils/100 WBC (Bld) Automated neutrophil % 43.0-75.0 [facility] No Panel Informationon 05-16 C-Reactive Protein, Quantitative 1.26 mg/dL High <=0.50 [facility] Eosinophils # (Auto) 0.3 10 3/uL 0.0-0.7 [facility] Immature Granulocyte # (Auto) 0.02 10 3/uL 0.00-0.03 [facility] Platelet mean volume Auto (B ld) [Entitic vol]on 05-16-2024 Platelet mean volume (Bld) [Entitic vol] Platelet mean volume [Entitic volume] in Blood by Automated count 9.5-13.5 [facility] Platelets Auto (Bld) [#/Vol] on 05-16-2024 Platelets (Bld) [#/Vol] Platelets [#/volume] in Blood by Automated count 150-450 [facility] RBC Auto (Bld) [#/Vol]on RBC (Bld) [#/Vol] Erythrocytes [#/volume] in Blood by Automated count 4.20-5.40 [facility] Serum or plasma anion gap de terminationon 05-16-2024 Anion gap [Moles/Vol] Serum or plasma anion gap determination [facility] Creatinine [Mass/volume] in UrineOrdered By: Cathie Vargas on 02-23-2024 Creatinine (U) [Mass/Vol] 28.00 mg/dL [facility] Comment on above: No reference range e stablished MicroAlb Creat Ratio,Uon Creatinine, Urine (Random) 28.00 mg/dL Normal [facility] Comment on above: Result Comment: No r eference range established Performed By: #### U RMACRERAT #### [facility] [address] Microalbumin/Creatin ine Ratio Not performed Normal 0.0-30.0 [facility] Comment on above: Result Comment: PERF ORMED BY: [place] [address] PATHOLOGIST RADIO DISPATCHER RUBINA RICCI M.D. Performed By: #### U RMACRERAT #### [facility] [address] [place] [address] [place] Microalbumin [Mass/volume] i n UrineOrdered By: Cathie Vargas on 02-23-2024 Albumin DL <= 20 mg/L (U) [Mass/Vol] mg/dL Normal 0.0-1.8 [facility] Comment on above: Performed By: #### U RMACRERAT #### [facility] [address] [place] [address] Urine microalbumin/creatinin e mass ratioOrdered By: Cathie Vargas on 02-23-2024 Albumin/Creatinine DL <= 20 mg/L (U) [Mass ratio] TNP [facility] Comment on above: Test not performed HbA1c HPLC (Bld) [Mass fract ion]on 12-13-2023 HbA1c (Bld) [Mass fraction] 9.9 % [facility] No Panel Informationon 12-12 Bedside Glucose 118 [facility] No Panel Informationon 09-28 Bedside Glucose 278 [facility] HbA1c HPLC (Bld) [Mass fract ion]on 07-28-2023 HbA1c (Bld) [Mass fraction] 10.3 % [facility] No Panel Informationon 07-27 Bedside Glucose 126 [facility] Basophils Auto (Bld) [#/Vol] on 07-12-2023 Basophils (Bld) [#/Vol] 0.0 10 3/uL 0.0-0.1 [facility] Basophils/100 WBC Auto (Bld) on 07-12-2023 Basophils/100 WBC (Bld) 0.5 % 0.2-2.0 [facility] Eosinophils/100 WBC Auto (Bl d)on 07-12-2023 Eosinophils/100 WBC (Bld) 1.5 % 0.9-7.0 [facility] Erythrocyte distribution wid th Auto (RBC) [Ratio]on 07-12-2023 Erythrocyte distribution width (RBC) [Ratio] 12.7 % 11.0-15.0 [facility] Estimated glomerular filtrat ion rate (GFR) non- Americanon 07-12-2023 GFR/1.73 sq M.predicted among non-blacks MDRD (S/P/Bld) [Vol rate/Area] mL/min/{1.73_m2} >=60 [facility] Hematocrit Auto (Bld) [Volum e fraction]on 07-12-2023 Hematocrit (Bld) [Volume fraction] 42.8 % 36.0-48.0 [facility] Hemoglobin [Mass/volume] in Bloodon 07-12-2023 Hemoglobin (Bld) [Mass/Vol] 14.3 g/dL 12.0-16.0 [facility] Laboratory - Chemistry and C hemistry - challengeon 07-12-2023 Calcium [Mass/Vol] 9.1 mg/dL 8.5-10.1 [facility] Chloride [Moles/Vol] 100 mmol/L 98-107 [facility] CO2 [Moles/Vol] 26.1 mmol/L 21.0-32.0 [facility] Creatinine [Mass/Vol] 0.78 mg/dL 0.55-1.02 [facility] GFR/1.73 sq M.predicted MDRD (S/P/Bld) [Vol rate/Area] mL/min/{1.73_m2} >=60 [facility] Glucose [Mass/Vol] 215 mg/dL 74-106 [facility] Potassium [Moles/Vol] 4.0 mmol/L 3.5-5.1 [facility] Sodium [Moles/Vol] 137 mmol/L 136-145 [facility] Urea nitrogen [Mass/Vol] 12.0 mg/dL 7.0-18.0 [facility] Urea nitrogen/Creatinine [Mass ratio] 15.4 mg/mg [facility] Laboratory - Hematology and Cell countson 07-12-2023 Immature granulocytes/100 WBC (Bld) 0.1 % 0.0-0.5 [facility] Leukocytes [#/volume] correc alm adelia for nucleated erythrocytes in Blood by Automated counon 07-12-2023 WBC corrected for nucl RBC Auto (Bld) [#/Vol] 7.8 10 3/uL 4.0-11.0 [facility] Lymphocytes Auto (Bld) [#/Vo l]on 07-12-2023 Lymphocytes (Bld) [#/Vol] 2.7 10 3/uL 1.2-3.8 [facility] Lymphocytes/100 WBC Auto (Bl d)on 07-12-2023 Lymphocytes/100 WBC (Bld) 34.1 % 20.5-60.0 [facility] MCH Auto (RBC) [Entitic mass ]on 07-12-2023 MCH (RBC) [Entitic mass] 29.2 pg 26.7-34.0 [facility] MCHC Auto (RBC) [Mass/Vol]on 07-12-2023 MCHC (RBC) [Mass/Vol] 33.4 g/dL 29.9-35.2 [facility] MCV Auto (RBC) [Entitic vol] on 07-12-2023 MCV (RBC) [Entitic vol] 87.5 fL 81.0-99.0 [facility] Monocytes Auto (Bld) [#/Vol] on 07-12-2023 Monocytes (Bld) [#/Vol] 0.5 10 3/uL 0.3-0.8 [facility] Monocytes/100 WBC Auto (Bld) on 07-12-2023 Monocytes/100 WBC (Bld) 6.4 % 1.7-12.0 [facility] Neutrophils Auto (Bld) [#/Vo l]on 07-12-2023 Neutrophils (Bld) [#/Vol] 4.5 10 3/uL 1.4-6.5 [facility] Neutrophils/100 WBC Auto (Bl d)on 07-12-2023 Neutrophils/100 WBC (Bld) 57.4 % 43.0-75.0 [facility] No Panel Informationon 07-11 Eosinophils # (Auto) 0.1 10 3/uL 0.0-0.7 [facility] Immature Granulocyte # (Auto) 0.01 10 3/uL 0.00-0.03 [facility] Platelet mean volume Auto (B ld) [Entitic vol]on 07-12-2023 Platelet mean volume (Bld) [Entitic vol] 10.9 fL 9.5-13.5 [facility] Platelets Auto (Bld) [#/Vol] on 07-12-2023 Platelets (Bld) [#/Vol] 259 10 3/uL 150-450 [facility] RBC Auto (Bld) [#/Vol]on RBC (Bld) [#/Vol] 4.89 10 6/uL 4.20-5.40 [facility] Serum or plasma anion gap de terminationon 07-12-2023 Anion gap [Moles/Vol] 14.9 mmol/L [facility] Glucose - FINGER STICKon Glucose [Mass/Vol] 360 mg/dL 88tc88 Other CBC AUTO DIFFon 08-27-2022 BASO # 0.0 103/ul Normal 0.0-0.1 [facility] Comment on above: Performed By: #### C BC #### [facility] [address] [place], [place] [address] Dr. Sarah Church Basophils/100 WBC (Bld) 0.5 % Normal 0.2-2.0 [facility] Comment on above: Performed By: #### C BC #### [facility] [address] [place], [place] [address] Dr. Sarah Church EO # 0.2 103/ul Normal 0.0-0.7 [facility] Comment on above: Performed By: #### C BC #### [facility] [address] [place] [address] Dr. Sarah Church Eosinophils/100 WBC (Bld) 2.2 % Normal 0.9-7.0 [facility] Comment on above: Performed By: #### C BC #### [facility] [address] [place] [address] Dr. Sarah Church Erythrocyte distribution width (RBC) [Ratio] 12.5 % Normal 11.0-15.0 [facility] Comment on above: Performed By: #### C BC #### [facility] [address] [place] [address] Dr. Sarah Church Hematocrit (Bld) [Volume fraction] 44.1 % Normal 36.0-48.0 [facility] Comment on above: Performed By: #### C BC #### [facility] [address] [place] [address] Dr. Sarah Church Hemoglobin (Bld) [Mass/Vol] 15.1 g/dL Normal 12.0-16.0 [facility] Comment on above: Performed By: #### C BC #### [facility] [address] [place] [address] Dr. Sarah Church IG # 0.02 10e3/ul Normal 0.00-0.03 [facility] Comment on above: Performed By: #### C BC #### [facility] [address] [place] [address] Dr. Sarah Church IG % 0.2 % Normal 0.0-0.5 [facility] Comment on above: Performed By: #### C BC #### [facility] [address] [place] [address] Dr. Sarah Church LYMPH # 2.9 103/ul Normal 1.2-3.8 [facility] Comment on above: Performed By: #### C BC #### [facility] [address] [place] [address] Dr. Sarah Church Lymphocytes/100 WBC (Bld) 33.4 % Normal 20.5-60.0 [facility] Comment on above: Performed By: #### C BC #### [facility] [address] [place] [address] Dr. Sarah Church MANUAL DIFF REQ NO Normal [facility] Comment on above: Performed By: #### C BC #### [facility] [address] [place] [address] Dr. Sarah Church MCH (RBC) [Entitic mass] 29.1 pg Normal 26.7-34.0 [facility] Comment on above: Performed By: #### C BC #### [facility] [address] [place] [address] Dr. Sarah Church MCHC (RBC) [Mass/Vol] 34.2 g/dL Normal 29.9-35.2 [facility] Comment on above: Performed By: #### C BC #### [facility] [address] [place] [address] Dr. Sarah Church MCV (RBC) [Entitic vol] 85.0 fL Normal 81.0-99.0 [facility] Comment on above: Performed By: #### C BC #### [facility] [address] [place] [address] Dr. Sarah Church MONO # 0.6 103/ul Normal 0.3-0.8 [facility] Comment on above: Performed By: #### C BC #### [facility] [address] [place] [address] Dr. Sarah Church Monocytes/100 WBC (Bld) 6.8 % Normal 1.7-12.0 [facility] Comment on above: Performed By: #### C BC #### [facility] [address] [place] [address] Dr. Sarah Church NEUT # 4.9 103/ul Normal 1.4-6.5 [facility] Comment on above: Performed By: #### C BC #### [facility] [address] [place] [address] Dr. Sarah Church Neutrophils/100 WBC (Bld) 56.9 % Normal 43.0-75.0 [facility] Comment on above: Performed By: #### C BC #### [facility] [address] [address] [address] Sarah Church Platelet mean volume (Bld) [Entitic vol] 10.8 fL Normal 9.5-13.5 [facility] Comment on above: Performed By: #### C BC #### [facility] [address] [place] [address] Dr. Sarah Church PLT 276 103/ul Normal 150-450 [facility] Comment on above: Performed By: #### C BC #### [facility] [address] [address] [address] Sarah Church RBC 5.19 106/ul Normal 4.20-5.40 [facility] Comment on above: Performed By: #### C BC #### [facility] [address] [place] [address] Dr. Sarah Church WBC 8.6 103/ul Normal 4.0-11.0 [facility] Comment on above: Performed By: #### C BC #### [facility] [address] [place] [address] Dr. Sarah Church LIPID PROFILEon 08-27-2022 CHOL-HDL RATIO NORM SEE BELOW Normal [facility] Comment on above: Result Comment: 3.3 - 4.4 LOW RISK 4.4 - 7.1 AVERAGE RISK 7.1 - 11.0 MODERATE RISK >11.0 HIGH RISK Performed By: #### L IPID, CMP #### [facility] [address] [place] [address] Dr. Sarah Church Cholesterol [Mass/Vol] 110 mg/dL Normal <=200 [facility] Comment on above: Performed By: #### L IPID, CMP #### [facility] [address] [place] [address] Dr. Sarah Church Cholesterol in HDL [Mass/Vol] 33 mg/dL Critically low 40-60 [facility] Comment on above: Performed By: #### L IPID, CMP #### [facility] [address] [place] [address] Dr. Sarah Church Cholesterol in LDL [Mass/Vol] 58.0 mg/dL Normal [facility] Comment on above: Performed By: #### L IPID, CMP #### [facility] [address] [address] [address] Sarah Church Cholesterol.total/Ch olesterol in HDL [Mass ratio] 3.3 {ratio} Normal [facility] Comment on above: Performed By: #### L IPID, CMP #### [facility] [address] [address] [address] Sarah Church HDL NORMAL > or = 60 mg/dl - LOW CARDIOVASCULAR RISK <40 mg/dl - HIGH CARDIOVASCULAR RISK Normal [facility] Comment on above: Performed By: #### L IPID, CMP #### [facility] [address] [place] [address] Dr. Sarah Church LDL CALC NORMAL SEE BELOW Normal [facility] Comment on above: Result Comment: <100 mg/dl OPTIMAL 100 - 129 mg/dl NEAR OR ABOVE OPTIMAL 130 - 159 mg/dl BORDERLINE HIGH 160 - 189 mg/dl HIGH >190 mg/dl VERY HIGH Performed By: #### L IPID, CMP #### [facility] [address] [place] [address] Dr. Sarah Church Triglyceride [Mass/Vol] 95 mg/dL Normal <=150 [facility] Comment on above: Performed By: #### L IPID, CMP #### [facility] [address] [place] [address] Dr. Sarah Church VLDL CALC 19.0 mg/dL Normal [facility] Comment on above: Performed By: #### L IPID, CMP #### [facility] [address] [place] [address] Dr. Sarah Church PROF 14(COMP METB)on 023 Albumin [Mass/Vol] 3.3 g/dL Critically low 3.4-5.0 [facility] Comment on above: Performed By: #### L IPID, CMP #### [facility] [address] [place] [address] Dr. Sarah Church Albumin/Globulin [Mass ratio] 0.8 {ratio} Normal [facility] Comment on above: Performed By: #### L IPID, CMP #### [facility] [address] [address] [address] Sarah Church ALP [Catalytic activity/Vol] 100 U/L Normal 46-116 [facility] Comment on above: Performed By: #### L IPID, CMP #### [facility] [address] [address] [address] Sarah Church ALT [Catalytic activity/Vol] 74 U/L Critically high 14-59 [facility] Comment on above: Performed By: #### L IPID, CMP #### [facility] [address] [address] [address] Sarah Church Anion gap [Moles/Vol] 13.2 mmol/L Normal [facility] Comment on above: Performed By: #### L IPID, CMP #### [facility] [address] [place] [address] Dr. Sarah Church AST [Catalytic activity/Vol] 42 U/L Critically high 15-37 [facility] Comment on above: Performed By: #### L IPID, CMP #### [facility] [address] [address] [address] Sarah Church Bilirubin [Mass/Vol] 0.4 mg/dL Normal 0.2-1.0 [facility] Comment on above: Performed By: #### L IPID, CMP #### [facility] [address] [address] [address] Sarah Church Calcium [Mass/Vol] 9.2 mg/dL Normal 8.5-10.1 [facility] Comment on above: Performed By: #### L IPID, CMP #### [facility] [address] [address] [address] Sarah Church Chloride [Moles/Vol] 99 mmol/L Normal 98-107 [facility] Comment on above: Performed By: #### L IPID, CMP #### [facility] [address] [address] [address] Sarah Church CO2 [Moles/Vol] 30.4 mmol/L Normal 21.0-32.0 [facility] Comment on above: Performed By: #### L IPID, CMP #### [facility] [address] [address] [address] Sarah Church Creatinine [Mass/Vol] 0.78 mg/dL Normal 0.55-1.02 [facility] Comment on above: Performed By: #### L IPID, CMP #### [facility] [address] [address] [address] Sarah Church EGFR-AF NIGERIEN >60 Normal >=60 [facility] Comment on above: Performed By: #### L IPID, CMP #### [facility] [address] [address] [address] Sarah Church EGFR-NON AF NIGERIEN >60 Normal >=60 [facility] Comment on above: Performed By: #### L IPID, CMP #### [facility] [address] [address] [address] Sarah Church Globulin (S) [Mass/Vol] 4.0 g/dL Normal [facility] Comment on above: Performed By: #### L IPID, CMP #### [facility] [address] [address] [address] Sarah Church Glucose [Mass/Vol] 255 mg/dL Critically high 74-106 [facility] Comment on above: Performed By: #### L IPID, CMP #### [facility] [address] [address] [address] Sarah Church Potassium [Moles/Vol] 3.6 mmol/L Normal 3.5-5.1 [facility] Comment on above: Performed By: #### L IPID, CMP #### [facility] [address] [address] [address] Sarah Church Protein [Mass/Vol] 7.3 g/dL Normal 6.4-8.2 [facility] Comment on above: Performed By: #### L IPID, CMP #### [facility] [address] [address] [address] Sarah Church Sodium [Moles/Vol] 139 mmol/L Normal 136-145 [facility] Comment on above: Performed By: #### L IPID, CMP #### [facility] [address] [address] [address] Sarah Church Urea nitrogen [Mass/Vol] 8.0 mg/dL Normal 7.0-18.0 [facility] Comment on above: Performed By: #### L IPID, CMP #### [facility] [id number] Sarah Church Urea nitrogen/Creatinine [Mass ratio] 10.3 mg/mg Normal [facility] Comment on above: Performed By: #### L IPID, CMP #### [facility] [id number] Sarah Church MG MAMM SCREEN 3D ROB CADon 07-20-2022 MG MAMM SCREEN 3D ROB CAD Patient: ZOILA RAMOS Exam Date: 07/20/2022 : 1970 Gender:F Ordering : DR SHAYY DELA CRUZ M.D. Admission #: [id number] Family : Order #: [id number] CLICK HERE TO VIEW EXAM RADIOLOGY REPORT PROCEDURE: MAMMOGRAM SCREENING 3D BILATERAL CAD COMPARISON: MAMMO ROB SCREEN W CAD DIG, 05/16/2012. INDICATIONS: Screening mammography Calculator Name NCI Breast Cancer Risk Assessment Tool 5 Year Breast Cancer Risk 1.20% Lifetime Breast Cancer Risk 10.80% Personal Breast Cancer No Personal Ovarian Cancer No Treatments None Family Cancers None LOCATION: [facility] BREAST COMPOSITION: Almost entirely fatty. FINDINGS: [...] M.D. on 07/21/2022 at 08:24 Normal [facility] PROF CHEM 8 (BAS METB)on Anion gap [Moles/Vol] 14.5 mmol/L Normal [facility] Comment on above: Performed By: #### B MP #### [facility] [address] [address] [address] Sarah Church Calcium [Mass/Vol] 9.8 mg/dL Normal 8.5-10.1 [facility] Comment on above: Performed By: #### B MP #### [facility] [address] [address] [address] Sarah Church Chloride [Moles/Vol] 99 mmol/L Normal 98-107 [facility] Comment on above: Performed By: #### B MP #### [facility] [address] [address] [address] Sarah Church CO2 [Moles/Vol] 27.2 mmol/L Normal 21.0-32.0 [facility] Comment on above: Performed By: #### B MP #### [facility] [address] [address] [address] Sarah Church Creatinine [Mass/Vol] 0.80 mg/dL Normal 0.55-1.02 [facility] Comment on above: Performed By: #### B MP #### [facility] [address] [address] [address] Sarah Church EGFR-AF NIGERIEN >60 Normal >=60 [facility] Comment on above: Performed By: #### B MP #### [facility] [address] [address] [address] Sarah Church EGFR-NON AF NIGERIEN >60 Normal >=60 [facility] Comment on above: Performed By: #### B MP #### [facility] [address] [address] [address] Sarah Church Glucose [Mass/Vol] 458 mg/dL Critically high 74-106 [facility] Comment on above: Performed By: #### B MP #### [facility] [address] [address] [address] Sarah Church Potassium [Moles/Vol] 4.7 mmol/L Normal 3.5-5.1 [facility] Comment on above: Performed By: #### B MP #### [facility] [address] [place], [place] [address] Dr. Sarah Church Sodium [Moles/Vol] 136 mmol/L Normal 136-145 [facility] Comment on above: Performed By: #### B MP #### [facility] [address] [place], [place] [address] Dr. Sarah Church Urea nitrogen [Mass/Vol] 15.0 mg/dL Normal 7.0-18.0 [facility] Comment on above: Performed By: #### B MP #### [facility] [address] [address] [address] Sarah Church Urea nitrogen/Creatinine [Mass ratio] 18.8 mg/mg Normal [facility] Comment on above: Performed By: #### B MP #### [facility] [address] [address] [address] Sarah Church GLYCOHEMOGLOBIN A1Con 2022 ADA RECOMMENDATION SEE BELOW Normal [facility] Comment on above: Result Comment: ADA RECOMMENDED LIMIT 4.0 - 6.0 ADA THERAPEUTIC TARGET < 7.0 ACTION SUGGESTED > 7.0 Performed By: #### A 1C ####[facility] [id number] [address]Dr. Sarah Church Glucose [Mass/Vol] 266 mg/dL Normal [facility] Comment on above: Performed By: #### A 1C ####[facility] [id number] [place], [place] [address]YjDr. Sarah Church HbA1c (Bld) [Mass fraction] 10.9 % Critically high 4.5-6.2 [facility] Comment on above: Performed By: #### A 1C ####[facility] [id number] [id number][address] Sarah Church XR HIP RT 2 3V [...] JAVAD POOLERODRÍGUEZ Date: 2022-04-06 21:15 Normal [facility] CBC AUTO DIFFon 11-05-2021 BASO # 0.1 103/ul Normal 0.0-0.1 [facility] Comment on above: Performed By: #### C BC #### [facility] [address] [place] [address] Dr. Sarah Church Basophils/100 WBC (Bld) 0.4 % Normal 0.2-2.0 [facility] Comment on above: Performed By: #### C BC #### [facility] [address] [place] [address] Dr. Sarah Church EO # 0.2 103/ul Normal 0.0-0.7 [facility] Comment on above: Performed By: #### C BC #### [facility] [address] [place] [address] Dr. Sarah Church Eosinophils/100 WBC (Bld) 1.3 % Normal 0.9-7.0 [facility] Comment on above: Performed By: #### C BC #### [facility] [address] [place] [address] Dr. Sarah Church Erythrocyte distribution width (RBC) [Ratio] 12.3 % Normal 11.0-15.0 [facility] Comment on above: Performed By: #### C BC #### [facility] [address] [place] [address] Dr. Sarah Church Hematocrit (Bld) [Volume fraction] 43.1 % Normal 36.0-48.0 [facility] Comment on above: Performed By: #### C BC #### [facility] [address] [place] [address] Dr. Sarah Church Hemoglobin (Bld) [Mass/Vol] 14.6 g/dL Normal 12.0-16.0 [facility] Comment on above: Performed By: #### C BC #### [facility] [address] [place] [address] Dr. Sarah Church IG # 0.04 10e3/ul Critically high 0.00-0.03 [facility] Comment on above: Performed By: #### C BC #### [facility] [address] [place] [address] Dr. Sarah Church IG % 0.3 % Normal 0.0-0.5 [facility] Comment on above: Performed By: #### C BC #### [facility] [address] [place] [address] Dr. Sarah Church LYMPH # 1.6 103/ul Normal 1.2-3.8 [facility] Comment on above: Performed By: #### C BC #### [facility] [address] [place] [address] Dr. Sarah Church Lymphocytes/100 WBC (Bld) 12.5 % Critically low 20.5-60.0 [facility] Comment on above: Performed By: #### C BC #### [facility] [address] [place] [address] Dr. Sarah Church MANUAL DIFF REQ NO Normal [facility] Comment on above: Performed By: #### C BC #### [facility] [address] [place] [address] Dr. Sarah Church MCH (RBC) [Entitic mass] 29.4 pg Normal 26.7-34.0 [facility] Comment on above: Performed By: #### C BC #### [facility] [address] [place] [address] Dr. Sarah Church MCHC (RBC) [Mass/Vol] 33.9 g/dL Normal 29.9-35.2 [facility] Comment on above: Performed By: #### C BC #### [facility] [address] [place] [address] Dr. Sarah Church MCV (RBC) [Entitic vol] 86.7 fL Normal 81.0-99.0 [facility] Comment on above: Performed By: #### C BC #### [facility] [address] [place] [address] Dr. Sarah Church MONO # 1.0 103/ul Critically high 0.3-0.8 [facility] Comment on above: Performed By: #### C BC #### [facility] [address] [address] [address] Sarah Church Monocytes/100 WBC (Bld) 7.7 % Normal 1.7-12.0 [facility] Comment on above: Performed By: #### C BC #### [facility] [address] [place] [address] Dr. Sarah Church NEUT # 9.6 103/ul Critically high 1.4-6.5 [facility] Comment on above: Performed By: #### C BC #### [facility] [address] [place] [address] Dr. Sarah Church Neutrophils/100 WBC (Bld) 77.8 % Critically high 43.0-75.0 [facility] Comment on above: Performed By: #### C BC #### [facility] [address] [place] [address] Dr. Sarah Church Platelet mean volume (Bld) [Entitic vol] 11.0 fL Normal 9.5-13.5 [facility] Comment on above: Performed By: #### C BC #### [facility] [address] [place] [address] Dr. Sarah Church PLT 220 103/ul Normal 150-450 [facility] Comment on above: Performed By: #### C BC #### [facility] [address] [place] [address] Dr. Sarah Church RBC 4.97 106/ul Normal 4.20-5.40 [facility] Comment on above: Performed By: #### C BC #### [facility] [address] [place] [address] Dr. Sarah Church WBC 12.4 103/ul Critically high 4.0-11.0 [facility] Comment on above: Performed By: #### C BC #### [facility] [address] [place] [address] Dr. Sarah Church GROUP A STREP CULTUREon 07- S. pyogenes Ag Ql (Unsp spec) Culture Observations: NEGATIVE FOR GROUP A STREPTOCOCCUS. Normal [facility] Comment on above: Performed By: #### G RASTCX, SSCRN ####[facility] [id number] [place], [place] [address]Dr. Sarah Church POINT OF CARE GLUCOSEon 07-0 Glucose [Mass/Vol] 214 mg/dL Critically high 74-106 [facility] Comment on above: Performed By: #### P OCGLUC #### [facility] [address] [address] [address] Sarah Church STREPT SCREENon 11-05-2021 STREP SCREEN A Negative Normal NEGATIVE [facility] Comment on above: Performed By: #### G RASTCX, SSCRN ####[facility] [id number] [id number][address] Sarah Church CBC AUTO DIFFon 10-16-2021 BASO # 0.1 103/ul Normal 0.0-0.1 [facility] Comment on above: Performed By: #### C BC #### [facility] [address] [address] [address] Sarah Church Basophils/100 WBC (Bld) 0.8 % Normal 0.2-2.0 [facility] Comment on above: Performed By: #### C BC #### [facility] [address] [address] [address] Sarah Church EO # 0.3 103/ul Normal 0.0-0.7 [facility] Comment on above: Performed By: #### C BC #### [facility] [address] [address] [address] Sarah Church Eosinophils/100 WBC (Bld) 3.4 % Normal 0.9-7.0 [facility] Comment on above: Performed By: #### C BC #### [facility] [address] [address] [address] Sarah Church Erythrocyte distribution width (RBC) [Ratio] 12.6 % Normal 11.0-15.0 [facility] Comment on above: Performed By: #### C BC #### [facility] [address] [place] [address] Dr. Sarah Church Hematocrit (Bld) [Volume fraction] 45.4 % Normal 36.0-48.0 [facility] Comment on above: Performed By: #### C BC #### [facility] [address] [place] [address] Dr. Sarah Church Hemoglobin (Bld) [Mass/Vol] 15.0 g/dL Normal 12.0-16.0 [facility] Comment on above: Performed By: #### C BC #### [facility] [address] [place] [address] Dr. Sarah Church IG # 0.02 10e3/ul Normal 0.00-0.03 [facility] Comment on above: Performed By: #### C BC #### [facility] [address] [place] [address] Dr. Sarah Church IG % 0.2 % Normal 0.0-0.5 [facility] Comment on above: Performed By: #### C BC #### [facility] [address] [place] [address] Dr. Sarah Church LYMPH # 2.7 103/ul Normal 1.2-3.8 [facility] Comment on above: Performed By: #### C BC #### [facility] [address] [place] [address] Dr. Sarah Church Lymphocytes/100 WBC (Bld) 31.0 % Normal 20.5-60.0 [facility] Comment on above: Performed By: #### C BC #### [facility] [address] [place] [address] Dr. Sarah Church MANUAL DIFF REQ NO Normal [facility] Comment on above: Performed By: #### C BC #### [facility] [address] [place] [address] Dr. Sarah Church MCH (RBC) [Entitic mass] 29.3 pg Normal 26.7-34.0 [facility] Comment on above: Performed By: #### C BC #### [facility] [address] [place] [address] Dr. Sarah Church MCHC (RBC) [Mass/Vol] 33.0 g/dL Normal 29.9-35.2 [facility] Comment on above: Performed By: #### C BC #### [facility] [address] [address] [address] Sarah Church MCV (RBC) [Entitic vol] 88.7 fL Normal 81.0-99.0 [facility] Comment on above: Performed By: #### C BC #### [facility] [address] [address] [address] Sarah Church MONO # 0.6 103/ul Normal 0.3-0.8 [facility] Comment on above: Performed By: #### C BC #### [facility] [address] [address] [address] Sarah Church Monocytes/100 WBC (Bld) 6.5 % Normal 1.7-12.0 [facility] Comment on above: Performed By: #### C BC #### [facility] [address] [place] [address] Dr. Sarah Church NEUT # 5.0 103/ul Normal 1.4-6.5 [facility] Comment on above: Performed By: #### C BC #### [facility] [address] [place] [address] Dr. Sarah Church Neutrophils/100 WBC (Bld) 58.1 % Normal 43.0-75.0 [facility] Comment on above: Performed By: #### C BC #### [facility] [address] [place] [address] Dr. Sarah Church Platelet mean volume (Bld) [Entitic vol] 11.0 fL Normal 9.5-13.5 [facility] Comment on above: Performed By: #### C BC #### [facility] [address] [place] [address] Dr. Sarah Church PLT 226 103/ul Normal 150-450 [facility] Comment on above: Performed By: #### C BC #### [facility] [address] [place] [address] Dr. Sarah Church RBC 5.12 106/ul Normal 4.20-5.40 [facility] Comment on above: Performed By: #### C BC #### [facility] [address] [place], [place] [address] Dr. Sarah Church WBC 8.6 103/ul Normal 4.0-11.0 [facility] Comment on above: Performed By: #### C BC #### [facility] [id number] Sarah Church GLYCOHEMOGLOBIN A1Con 2021 ADA RECOMMENDATION SEE BELOW Normal [facility] Comment on above: Result Comment: ADA RECOMMENDED LIMIT 4.0 - 6.0 ADA THERAPEUTIC TARGET < 7.0 ACTION SUGGESTED > 7.0 Performed By: #### A 1C ####[facility] [address] [address]DrCoretta Church Glucose [Mass/Vol] 275 mg/dL Normal [facility] Comment on above: Performed By: #### A 1C ####[facility] [address] [address]DrCoretta Church HbA1c (Bld) [Mass fraction] 11.2 % Critically high 4.5-6.2 [facility] Comment on above: Performed By: #### A 1C ####[facility] [address] [address]Dr. Sarah Church LIPID PROFILEon 10-16-2021 CHOL-HDL RATIO NORM SEE BELOW Normal [facility] Comment on above: Result Comment: 3.3 - 4.4 LOW RISK 4.4 - 7.1 AVERAGE RISK 7.1 - 11.0 MODERATE RISK >11.0 HIGH RISK Performed By: #### L IPID, CMP ####[facility] [address] [address]Dr. Sarah Church Cholesterol [Mass/Vol] 159 mg/dL Normal <=200 [facility] Comment on above: Performed By: #### L IPID, CMP ####[facility] [address] [address]Dr. Sarah Church Cholesterol in HDL [Mass/Vol] 41 mg/dL Normal 40-60 [facility] Comment on above: Performed By: #### L IPID, CMP ####[facility] [address] [id number]. Sarah Church Cholesterol in LDL [Mass/Vol] 102.6 mg/dL Normal [facility] Comment on above: Performed By: #### L IPID, CMP ####[facility] [address] [id number]. Sarah Church Cholesterol.total/Ch olesterol in HDL [Mass ratio] 3.9 {ratio} Normal [facility] Comment on above: Performed By: #### L IPID, CMP ####[facility] [address] [id number]. Sarah Church HDL NORMAL > or = 60 mg/dl - LOW CARDIOVASCULAR RISK <40 mg/dl - HIGH CARDIOVASCULAR RISK Normal [facility] Comment on above: Performed By: #### L IPID, CMP ####[facility] [address] [address]Dr. Sarah Church LDL CALC NORMAL SEE BELOW Normal [facility] Comment on above: Result Comment: <100 mg/dl OPTIMAL 100 - 129 mg/dl NEAR OR ABOVE OPTIMAL 130 - 159 mg/dl BORDERLINE HIGH 160 - 189 mg/dl HIGH >190 mg/dl VERY HIGH Performed By: #### L IPID, CMP ####[facility] [address] [address]Dr. Sarah Church Triglyceride [Mass/Vol] 77 mg/dL Normal <=150 [facility] Comment on above: Performed By: #### L IPID, CMP ####[facility] [address] [phone]. Sarah Church VLDL CALC 15.4 mg/dL Normal [facility] Comment on above: Performed By: #### L IPID, CMP ####[facility] [address] [address]Dr. Sarah Church MICROALBUMIN, RAND URon 06-1 mALB 2.0 mg/L Normal <=30.0 [facility] Comment on above: Performed By: #### M ALBR #### [facility] [address] [address] [address] Sarah Church PROF 14(COMP METB)on 022 Albumin [Mass/Vol] 3.5 g/dL Normal 3.4-5.0 [facility] Comment on above: Performed By: #### L IPID, CMP ####[facility] [address] [address]Dr. Sarah Church Albumin/Globulin [Mass ratio] 0.8 {ratio} Normal [facility] Comment on above: Performed By: #### L IPID, CMP ####[facility] [address] [address]Dr. Sarah Church ALP [Catalytic activity/Vol] 85 U/L Normal 46-116 [facility] Comment on above: Performed By: #### L IPID, CMP ####[facility] [address] [address]Dr. Sarah Church ALT [Catalytic activity/Vol] 59 U/L Normal 14-59 [facility] Comment on above: Performed By: #### L IPID, CMP ####[facility] [address] [address]Dr. Sarah Church Anion gap [Moles/Vol] 15.1 mmol/L Normal [facility] Comment on above: Performed By: #### L IPID, CMP ####[facility] [address] [address]Dr. Sarah Church AST [Catalytic activity/Vol] 32 U/L Normal 15-37 [facility] Comment on above: Performed By: #### L IPID, CMP ####[facility] [address] [address]Dr. Sarah Church Bilirubin [Mass/Vol] 0.4 mg/dL Normal 0.2-1.0 [facility] Comment on above: Performed By: #### L IPID, CMP ####[facility] [address] [address]Dr. Sarah Church Calcium [Mass/Vol] 9.0 mg/dL Normal 8.5-10.1 [facility] Comment on above: Performed By: #### L IPID, CMP ####[facility] [address] [address]Dr. Sarah Church Chloride [Moles/Vol] 102 mmol/L Normal 98-107 [facility] Comment on above: Performed By: #### L IPID, CMP ####[facility] [address] [address]Dr. Sarah Church CO2 [Moles/Vol] 30.2 mmol/L Normal 21.0-32.0 [facility] Comment on above: Performed By: #### L IPID, CMP ####[facility] [address] [address]Dr. Sarah Church Creatinine [Mass/Vol] 0.81 mg/dL Normal 0.55-1.02 [facility] Comment on above: Performed By: #### L IPID, CMP ####[facility] [address] [place], [place] [address]Dr. Sarah Church EGFR-AF NIGERIEN >60 Normal >=60 [facility] Comment on above: Performed By: #### L IPID, CMP ####[facility] [address] [place], [place] [address]Dr. Sarah Church EGFR-NON AF NIGERIEN >60 Normal >=60 [facility] Comment on above: Performed By: #### L IPID, CMP ####[facility] [address] [place], [place] [address]Dr. Sarah Church Globulin (S) [Mass/Vol] 3.9 g/dL Normal [facility] Comment on above: Performed By: #### L IPID, CMP ####[facility] [address] [place], [place] [address]Dr. Sarah Church Glucose [Mass/Vol] 218 mg/dL Critically high 74-106 T [facility] Comment on above: Performed By: #### L IPID, CMP ####[facility] [address] [place], [place] [address]Dr. Sarah Church Potassium [Moles/Vol] 4.3 mmol/L Normal 3.5-5.1 [facility] Comment on above: Performed By: #### L IPID, CMP ####[facility] [address] [id number]. Sarah Church Protein [Mass/Vol] 7.4 g/dL Normal 6.4-8.2 [facility] Comment on above: Performed By: #### L IPID, CMP ####[facility] [address] [phone]. Sarah Church Sodium [Moles/Vol] 143 mmol/L Normal 136-145 [facility] Comment on above: Performed By: #### L IPID, CMP ####[facility] [address] [phone]. Sarah Church Urea nitrogen [Mass/Vol] 14.0 mg/dL Normal 7.0-18.0 [facility] Comment on above: Performed By: #### L IPID, CMP ####[facility] [address] [place], [place] [address]Dr. Sarah Church Urea nitrogen/Creatinine [Mass ratio] 17.2 mg/mg Normal [facility] Comment on above: Performed By: #### L IPID, CMP ####[facility] [address] [place], [place] [address]Dr. Sarah Church Vital Signs Date Time Vital Sign Value Performing Clinician Facility 06-14-2024 10:050 Body height 157.5 cm Nacho Patiño MD Work Phone: [facility] 06-14-2024 10:050 Body mass index (BMI) [Ratio] 38.59 kg/m2 Nacho Patiño MD Work Phone: [facility] 06-14-2024 10:050 Body temperature 97.3 [degF] Nacho Patiño MD Work Phone: [facility] 06-14-2024 10:050 Body weight 95.71 kg Nacho Patiño MD Work Phone: [facility] 06-14-2024 10:0500 Diastolic blood pressure 82 mm[Hg] Nacho Patiño MD Work Phone: [facility] 06-14-2024 10:21-0500 Heart rate 88 /min Nacho Patiño MD Work Phone: [facility] 06-14-2024 10:21-0500 SaO2% (BldA) [Mass fraction] 97 % Nacho Patiño MD Work Phone: [facility] 06-14-2024 10:21-0500 Systolic blood pressure 136 mm[Hg] Nacho Patiño MD Work Phone: [facility] 05-30-2024 10:48-0500 Body height 157.48 cm [facility] 05-30-2024 10:48-0500 Body mass index (BMI) [Ratio] 38.5 kg/m2 [facility] 05-30-2024 10:48-0500 Body weight 95.7 kg [facility] 05-30-2024 10:48-0500 Diastolic blood pressure 77 mm[Hg] [facility] 05-30-2024 10:48-0500 Heart rate 80 /min [facility] 05-30-2024 10:48-0500 Systolic blood pressure 133 mm[Hg] [facility] 02-23-2024 13:23-0400 Body height 157.48 cm [facility] 02-23-2024 13:23-0400 Body mass index (BMI) [Ratio] 38 kg/m2 [facility] 02-23-2024 13:23-0400 Body weight 94.37 kg [facility] 02-23-2024 13:23-0400 Diastolic blood pressure 78 mm[Hg] [facility] 02-23-2024 13:23-0400 Heart rate 75 /min [facility] 02-23-2024 13:23-0400 Respiratory rate 18 /min [facility] 02-23-2024 13:23-0400 SaO2% (BldA) [Mass fraction] 97 % [facility] 02-23-2024 13:23-0400 Systolic blood pressure 170 mm[Hg] [facility] 12-13-2023 13:03-0400 Body height 157.48 cm [facility] 12-13-2023 13:03-0400 Body mass index (BMI) [Ratio] 37.1 kg/m2 [facility] 12-13-2023 13:03-0400 Body weight 92.07 kg [facility] 12-13-2023 13:03-0400 Diastolic blood pressure 86 mm[Hg] [facility] 12-13-2023 13:03-0400 Heart rate 78 /min [facility] 12-13-2023 13:03-0400 Respiratory rate 18 /min [facility] 12-13-2023 13:03-0400 SaO2% (BldA) [Mass fraction] 96 % [facility] 12-13-2023 13:03-0400 Systolic blood pressure 153 mm[Hg] [facility] 12-05-2023 11:24-0400 Body height 157.48 cm [facility] 12-05-2023 11:24-0400 Body mass index (BMI) [Ratio] 36.9 kg/m2 [facility] 12-05-2023 11:24-0400 Body weight 91.62 kg [facility] 12-05-2023 11:24-0400 Diastolic blood pressure 75 mm[Hg] [facility] 12-05-2023 11:24-0400 Heart rate 80 /min [facility] 12-05-2023 11:24-0400 Systolic blood pressure 133 mm[Hg] [facility] 09-29-2023 13:44-0400 Diastolic blood pressure 76 mm[Hg] [facility] 09-29-2023 13:44-0400 Systolic blood pressure 130 mm[Hg] [facility] 09-29-2023 13:19-0400 Body height 157.48 cm [facility] 09-29-2023 13:19-0400 Body mass index (BMI) [Ratio] 38.7 kg/m2 [facility] 09-29-2023 13:19-0400 Body weight 95.9 kg [facility] 09-29-2023 13:19-0400 Heart rate 89 /min [facility] 09-29-2023 13:19-0400 Respiratory rate 18 /min [facility] 09-29-2023 13:19-0400 SaO2% (BldA) [Mass fraction] 98 % [facility] 09-06-2023 11:08-0400 Body height 157.48 cm [facility] 09-06-2023 11:08-0400 Body mass index (BMI) [Ratio] 37.6 kg/m2 [facility] 09-06-2023 11:08-0400 Body weight 93.44 kg [facility] 09-06-2023 11:08-0400 Diastolic blood pressure 72 mm[Hg] [facility] 09-06-2023 11:08-0400 Heart rate 89 /min [facility] 09-06-2023 11:08-0400 Systolic blood pressure 127 mm[Hg] [facility] 08-24-2023 15:08-0400 Body height 157.48 cm [facility] 08-24-2023 15:08-0400 Body mass index (BMI) [Ratio] 37.5 kg/m2 [facility] 08-24-2023 15:08-0400 Body weight 93.21 kg [facility] 08-19-2023 10:43-0400 Body height 157.48 cm MD Shayy Dela Cruz Work Phone: [facility] 08-19-2023 10:43-0400 Body mass index (BMI) [Ratio] 37.5 kg/m2 MD Shayy Dela Cruz Work Phone: [facility] 08-19-2023 10:43-0400 Body weight 93.09 kg MD Shayy Dela Cruz Work Phone: [facility] 08-19-2023 10:43-0400 Diastolic blood pressure 79 mm[Hg] MD Shayy Dela Cruz Work Phone: [facility] 08-19-2023 10:43-0400 Heart rate 83 /min MD Shayy Dela Cruz Work Phone: [facility] 08-19-2023 10:43-0400 Systolic blood pressure 135 mm[Hg] MD Shayy Dela Cruz Work Phone: [facility] 07-28-2023 14:22-0400 Body height 157.48 cm MD Shayy Dela Cruz Work Phone: [facility] 07-28-2023 14:22-0400 Body mass index (BMI) [Ratio] 37.6 kg/m2 MD Shayy Dela Cruz Work Phone: [facility] 07-28-2023 14:22-0400 Body weight 93.44 kg MD Shayy Dela Cruz Work Phone: [facility] 07-28-2023 14:22-0400 Diastolic blood pressure 84 mm[Hg] MD Shayy Dela Cruz Work Phone: [facility] 07-28-2023 14:22-0400 Heart rate 83 /min MD Shayy Dela Cruz Work Phone: [facility] 07-28-2023 14:22-0400 Respiratory rate 18 /min MD Shayy Dela Cruz Work Phone: [facility] 07-28-2023 14:22-0400 SaO2% (BldA) [Mass fraction] 97 % MD Shayy Dela Cruz Work Phone: [facility] 07-28-2023 14:22-0400 Systolic blood pressure 140 mm[Hg] MD Shayy Dela Cruz Work Phone: [facility] 07-19-2023 10:57-0400 Body height 157.48 cm MD Shayy Dela Cruz Work Phone: [facility] 07-19-2023 10:57-0400 Body mass index (BMI) [Ratio] 37.1 kg/m2 MD Shayy Dela Cruz Work Phone: [facility] 07-19-2023 10:57-0400 Body weight 92.07 kg MD Shayy Dela Cruz Work Phone: [facility] 07-19-2023 10:57-0400 Diastolic blood pressure 68 mm[Hg] MD Shayy Dela Cruz Work Phone: [facility] 07-19-2023 10:57-0400 Heart rate 89 /min MD Shayy Dela Cruz Work Phone: [facility] 07-19-2023 10:57-0400 Systolic blood pressure 132 mm[Hg] MD Shayy Dela Cruz Work Phone: [facility] 05-25-2023 11:00-0500 Body height 157.48 cm Cathie Scally Other [facility] 05-25-2023 11:00-0500 Body mass index (BMI) [Ratio] 37.23 kg/m2 Cathie Scally Other [facility] [place] Other 05-25-2023 11:00-0500 Body weight 92.35 kg Cathie Scally Other [facility] 05-25-2023 11:00-0500 Diastolic blood pressure 71 mm[Hg] Cathie Scally Other [facility] 05-25-2023 11:00-0500 Respiratory rate 18 /min Cathie Scally Other [facility] [place] Other 05-25-2023 11:00-0500 SaO2% (BldA) [Mass fraction] 95 % Cathie Scally Other [id number] Other 05-25-2023 11:00-0500 Systolic blood pressure 139 mm[Hg] Cathie Scally Other [facility] 04-15-2023 11:00-0500 Body height 157.48 cm Shayy Dela Cruz Other [facility] 04-15-2023 11:00-0500 Body mass index (BMI) [Ratio] 37.49 kg/m2 Shayy Dela Cruz Other [id number] Other 04-15-2023 11:00-0500 Body weight 92.99 kg Shayy Dela Cruz Other [id number] Other 04-15-2023 11:00-0500 Body weight 92.98 kg MD Shayy Dela Cruz Work Phone: [facility] 04-15-2023 11:00-0500 Diastolic blood pressure 84 mm[Hg] Shayy Dela Cruz Other [facility] 04-15-2023 11:00-0500 Systolic blood pressure 142 mm[Hg] Shayy Dela Cruz Other [facility] 06-22-2022 13:30-0500 Body height 157.48 cm Shayy Dela Cruz Other [id number] Other 06-22-2022 13:30-0500 Body mass index (BMI) [Ratio] 36.94 kg/m2 Shayy Dela Cruz Other [id number] Other 06-22-2022 13:30-0500 Body weight 91.63 kg Shayy Dela Cruz Other [id number] Other 06-22-2022 13:30-0500 Diastolic blood pressure 74 mm[Hg] Shayy Dela Cruz Other [id number] Other 06-22-2022 13:30-0500 SaO2% (BldA) [Mass fraction] 97 % Shayy Dela Cruz Other [id number] Other 06-22-2022 13:30-0500 Systolic blood pressure 112 mm[Hg] Shayy Dela Cruz Other [id number] Other Encounters Encounter Date Encounter Type Care Provider Facility Start: 07-05-2024 End: 07-05-2024 ambulatory Shayy Dela Cruz MD Work Phone: [facility] Work Phone: Start: 07-05-2024 End: 07-05-2024 Departed Referred Shayy Dela Cruz MD Work Phone: [facility] Start: 06-21-2024 Non-patient / Non-visit Shayy Dela Cruz MD Work Phone: [facility] Work Phone: Start: 06-20-2024 Non-patient / Non-visit Shayy Dela Cruz MD Work Phone: [facility] Work Phone: Start: 06-19-2024 End: 06-19-2024 ambulatory [facility] Start: 06-19-2024 Non-patient / Non-visit Shayy Dela Cruz MD Work Phone: [facility] Work Phone: Start: 06-14-2024 End: 06-14-2024 Office outpatient new 30 minutes Nacho Patiño MD Work Phone: [facility] Comment on above: 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[facility]) (Primary Dx) Start: 06-14-2024 End: 06-14-2024 [facility]ulatory [facility] Start: 06-13-2024 Non-patient / Non-visit Shayy Dela Cruz MD Work Phone: [facility] Work Phone: Start: 06-12-2024 Non-patient / Non-visit Shayy Dela Cruz MD Work Phone: [facility] Work Phone: Start: 06-07-2024 Non-patient / Non-visit Shayy Dela Cruz MD Work Phone: [facility] Work Phone: Start: 06-01-2024 Non-patient / Non-visit Shayy Dela Cruz MD Work Phone: [facility] Work Phone: Start: 05-30-2024 Patient encounter status Shayy Dela Cruz MD Work Phone: [facility] Start: 05-30-2024 End: 05-30-2024 ambulatory [facility] Work Phone: Start: 05-30-2024 End: 05-30-2024 Encounter for general adult medical examination without abnormal findings Shayy Dela Cruz MD Work Phone: [facility] Start: 05-30-2024 End: 05-30-2024 Patient encounter procedure [facility] Work Phone: Start: 05-24-2024 End: 05-24-2024 ambulatory [facility] Work Phone: Start: 05-24-2024 End: 05-24-2024 Patient encounter procedure [facility] Work Phone: Start: 05-16-2024 Non-patient / Non-visit [facility] Work Phone: Start: 05-07-2024 Non-patient / Non-visit [facility] Work Phone: Start: 04-19-2024 End: 04-19-2024 Patient encounter procedure [facility] Work Phone: Start: 02-28-2024 Non-patient / Non-visit [facility] Work Phone: Start: 02-23-2024 End: 02-23-2024 ambulatory Cathie Vargas [facility] Work Phone: Start: 02-23-2024 End: 02-23-2024 Patient encounter procedure DOCUMENTATION LEAD Cathie Vargas Work Phone: [facility] Work Phone: Start: 02-23-2024 End: 02-23-2024 ambulatory [facility] Work Phone: Start: 02-23-2024 End: 02-23-2024 Patient encounter [facility] Work Phone: Start: 01-17-2024 End: 01-17-2024 ambulatory [facility] Work Phone: Start: 01-17-2024 End: 01-17-2024 Patient encounter procedure [facility] Work Phone: Start: 12-13-2023 End: 12-13-2023 ambulatory [facility] Work Phone: Start: 12-13-2023 End: 12-13-2023 Patient encounter procedure [facility] Work Phone: Start: 12-05-2023 End: 12-05-2023 ambulatory [facility] Work Phone: Start: 12-05-2023 End: 12-05-2023 Patient encounter procedure [facility] Work Phone: Start: 11-07-2023 End: 11-07-2023 ambulatory [facility] Work Phone: Start: 11-07-2023 End: 11-07-2023 Patient encounter procedure [facility] Work Phone: Start: 09-29-2023 End: 09-29-2023 ambulatory [facility] Work Phone: Start: 09-29-2023 End: 09-29-2023 Patient encounter procedure [facility] Work Phone: Start: 09-06-2023 End: 09-06-2023 ambulatory [facility] Work Phone: Start: 09-06-2023 End: 09-06-2023 Patient encounter procedure [facility] Work Phone: Start: 08-24-2023 End: 08-24-2023 ambulatory [facility] Work Phone: Start: 08-24-2023 End: 08-24-2023 Patient encounter procedure [facility] Work Phone: Start: 08-19-2023 End: 08-19-2023 ambulatory MD Shayy Dela Cruz Work Phone: [facility] Work Phone: Start: 08-19-2023 End: 08-19-2023 Patient encounter procedure MD Shayy Dela Cruz Work Phone: [facility] Work Phone: Start: 07-28-2023 End: 07-28-2023 ambulatory MD Shayy Dela Cruz Work Phone: [facility] Work Phone: Start: 07-28-2023 End: 07-28-2023 Patient encounter procedure MD Shayy Dela Cruz Work Phone: [facility] Work Phone: Start: 07-19-2023 End: 07-19-2023 ambulatory MD Shayy Dela Cruz Work Phone: [facility] Work Phone: Start: 07-19-2023 End: 07-19-2023 Patient encounter procedure MD Shayy Dela Cruz Work Phone: [facility] Work Phone: Start: 07-12-2023 Non-patient / Non-visit MD Qi Deal Cruz Work Phone: [facility] Work Phone: Start: 06-14-2023 End: 06-14-2023 ambulatory MD Shayy Dela Cruz Work Phone: [facility] Work Phone: Start: 06-14-2023 End: 06-14-2023 Patient encounter procedure MD Shayy Dela Cruz Work Phone: [facility] Work Phone: Start: 06-06-2023 End: 06-06-2023 ambulatory Shayy Dela Cruz Other [id number] Other Start: 06-06-2023 Telephone encounter Shayy Dela Cruz [facility] Start: 05-25-2023 [facility] visit new patient Cathie Sheikh y [facility] Start: 05-25-2023 End: 05-25-2023 ambulatory MD Shayy Dela Cruz Work Phone: [id number] Other Start: 05-25-2023 End: 05-25-2023 Discharged Recurring MD Shay[facility] Del[facility] Work Phone: Start: 05-25-2023 Registered Recurring MD Shayy Dela Cruz [facility] Work Phone: Start: 05-25-2023 End: 05-25-2023 Patient encounter procedure MD Shayy Dela Cruz Work Phone: [facility]- Start: 05-12-2023 End: 05-12-2023 ambulatory Shayy Dela Cruz Other [id number] Other Start: 05-12-2023 Telephone encounter Shayy Dela Cruz [facility] Start: 05-10-2023 End: 05-10-2023 ambulatory Shayy Dela Cruz Other [id number] Other Start: 05-10-2023 Telephone encounter Shayy Dela Cruz [facility] Start: 04-22-2023 End: 04-22-2023 ambulatory Shayy Dela Cruz Other [id number] Other Start: 04-22-2023 Telephone encounter Shayy Dela Cruz [facility] Start: 04-20-2023 End: 04-20-2023 ambulatory Lynne Avilat Other [id number] Other Start: 04-20-2023 Telephone encounter Lynne Avilat [facility] Start: 04-18-2023 End: 04-18-2023 ambulatory Lynne Avilat Other [id number] Other Start: 04-18-2023 Telephone encounter Lynne Avilat [facility] Start: 04-15-2023 End: 04-15-2023 ambulatory Shayy Dela Cruz Other [id number] Other Start: 04-15-2023 Office outpatient vi sit 15 minutes Shayy Dela Cruz [facility] Start: 04-15-2023 End: 04-15-2023 Patient encounter procedure MD Shayy Dela Cruz Work Phone: [facility] Work Phone: Start: 04-06-2023 End: 04-06-2023 ambulatory Shayy Dela Cruz Other [id number] Other Start: 04-06-2023 Telephone encounter Shayy Dela Cruz [facility] Start: 02-25-2023 End: 02-25-2023 ambulatory Shayy Dela Cruz Other [id number] Other Start: 02-25-2023 Telephone encounter Shayy Dela Cruz [facility] Start: 10-29-2022 End: 10-29-2022 ambulatory Shayy Dela Cruz Other [id number] Other Start: 10-29-2022 Telephone encounter Shayy Dela Cruz [facility] Start: 08-27-2022 End: 08-28-[address] SHAYY DELA CRUZ Facility:[facility]1 Start: 07-20-2022 End: 07-21-[address] SHAYY DELA CRUZ Facility:[facility] Start: 07-19-2022 End: 07-19-2022 ambulatory Shayy Dela Cruz Other [id number] Other Start: 07-19-2022 Telephone encounter Shayy Dela Cruz [facility] Start: 07-12-2022 End: 07-13-[address] SHAYY DELA CRUZ Facility:[facility] Start: 07-05-2022 End: 07-05-2022 ambulatory Shayy Dela Cruz Other [id number] Other Start: 07-05-2022 Telephone encounter Shayy Dela Cruz [facility] Start: 06-28-2022 End: 06-28-2022 ambulatory Shayy Dela Cruz Other [id number] Other Start: 06-28-2022 Telephone encounter Shayy Dela Cruz [facility] Start: 06-22-2022 End: 06-22-2022 ambulatory Shayy Dela Cruz Other [id number] Other Start: 06-22-2022 Office outpatient vi sit 15 minutes Shayy Dela Cruz [facility] Start: 05-27-2022 End: 05-27-2022 ambulatory Shayy Dela Cruz Other [id number] Other Start: 05-27-2022 Telephone encounter Shayy Dela Cruz [facility] Start: 05-19-2022 End: 05-20-2022 ambulatory [...] DEFAULT PHYSICIAN Facility:[facility] Plan of Treatment Date Care Activity Detail Author Start: 01-01-2024 Influenza vaccination Influenza Vaccine [facility] Start: 01-15-2022 Administration of varicella zoster vaccine Zoster (Shingles) Vaccine (1 of 2) [facility] Start: 01-15-1993 Screening for malignant neoplasm of cervix Pap Smear [facility] Start: 01-15-1991 DTaP,Tdap and Td Vaccines (1 - Tdap) DTaP,Tdap and Td Vaccines (1 - Tdap) [facility] Start: 01-15-1990 Adult BMI Screening Adult BMI Screening [facility] Start: 1984 Depression Screening Depression Screening [facility] Start: 1984 Tobacco Screening Tobacco Screening [facility] Comprehensive metabo lic 2000 panel - Serum or Plasma [facility] MG Breast - bilatera l Screening [facility] Immunizations Immunization Date Immunization Notes Care Provider Fa cility 02-01-2022 influenza virus vaccine, split virus (incl. purified surface antigen) Shayy Dela Cruz Other [id number] Other 02-01-2022 influenza virus vaccine, unspecified formulation MD Shayy Dela Cruz Work Phone: [facility] Payers Date Payer Category Payer Medicare [facility] [id number] 2017 Medicaid MEDICAID [facility] er [id number] 2017 Unknown [id number] 1972 Unknown [id number] 1972 Unknown [id number] [id number] 1972 Unknown [id number] [id number] 1972 Unknown [id number] [id number] 1972 Unknown [id number] [id number] 1972 Unknown [id number] [id number] 1972 Unknown [id number] [id number] 1972 Unknown [id number] [id number] 1972 Unknown [id number] [id number] 1972 Unknown [id number] 1957 Medicaid [id number] 1957 Medicare [id number] Medicare Medicare [id number] Unknown Social History Date Type Detail Facility Unknown if ever smoked [facility] Other Start: 06-14-2024 Sex Assigned At [facility] Other Start: 1970 Sex Assigned At Female [facility] Start: 07-19-2023 End: 05-25-2024 Tobacco smoking status NHIS Never smoked tobacco (finding) [facility] Start: 05-24-2024 End: 07-06-2024 Sex Female (finding) [facility] Start: 06-14-2024 Tobacco use and exposure Smokeless tobacco non-user [facility] Start: 06-14-2024 Alcoholic beverage intake Lifetime non-drinker (finding) [facility] Start: 06-14-2024 History of Social function [facility] Within the past 12 months we worried whether our food would run out before we got money to buy more. Never True [facility] [employer] [facility] Start: 1970 Sex assigned at Not on file [facility] NEGATED: Highlighted row [facility] Medical Equipment Procedure Code Equipment Code Equipment [...] scheduled for 06/21/[address] Bruce at [facility]. She had EKG, CXR, and labs today. [...] scheduled for 06/21/[address] Bruce at [facility]. She had EKG, CXR, and labs today. [...] Active Problem List Diagnosis Coronary arteriosclerosis in kot[place] artery Old myocardial infarction Sinusitis Type 1 [...] is normal sized. (more content not included)... [facility] 06-14-2024 Evaluation + Plan note Associated Problem(s): Gangrene of toe of left foot ([facility]) Osteomyelitis and gangrenous changes of the left second and third and may be the fourth toe.She has normal PVR with toe pressure and normal HIEU and toe pressure index.I discussed with her that there is no VASc intervention needed at this time. She needs his aggressive blood sugar control IV antibiotics likely toe amputation by podiatry and risk factors modification. [facility] 06-14-2024 Miscellaneous Notes Associated Problem(s): Gangrene of toe of left foot ([facility]) Osteomyelitis and gangrenous changes of the left [...] risk factors modification. documented in this encounter [facility] 06-14-2024 History of Presen t illness Narrative [...] Past Medical History: Diagnosis Date Diabetes mellitus ([facility]) Past Surgical History: No [...] Interpersonal Safety: Unknown (06/23/2023) Received from [facility] Safety [facility] Environment Fear of Current [...] visit: Gangrene of toe of left foot (CMS-HCC) Nacho Patiño MD, SELMA, RPVI, FSVS, FACS [facility] [facility] This note was created with the assistance of a speech recognition program. While intending to generate a timely document that accurately reflects the content of the visit, no guarantee can be provided that every grammatical or spelling mistake has been or will be identified or corrected. Thank you for your understanding. documented in this encounter [facility] 04-19-2024 Evaluation note Diagnosis Onset Date Resolution Type 2 diabetes mellitus acute April 19, 2:03pm [facility] Work Phone: 1(220) 798-470012-19-2024 Evaluation note* Diagnosis Onset Date Resolution Status Admit Date Type 2 diabetes mellitus acute April 19, 2024 2:03pm Type 2 diabetes mellitus acute May 24, 2024 12:54pm [facility] Work Phone: 1(930) 766-896712-19-2024 Evaluation note* Diagnosis Onset Date Resolution Status Admit Date Type 2 diabetes mellitus acute April 19, 2024 2:03pm Type 2 diabetes mellitus acute May 24, 2024 12:54pm Colon cancer screening acute Chente barragan 2024 10:42am Long-term insulin use acute Nic farrellry 2024 10:42am Type 2 diabetes mellitus acute May 30, 2024 10:42am Wellness examination acute Geovanny pacheco 2024 10:42am [facility] Work Phone: 1(377) 884-876502-05-2024 Evaluation note* Encounter Date Diagnosis Assessment Notes Treatment Notes Treatment Clinical Notes Jun, Controlled type 2 diabetes mellitus with hyperglycemia, unspecified whether jail insulin use (ICD-10 - E11.65) [id number] Other 01-24-2024 Evaluation note* Encounter Date Diagnosis [...] issues. 6. Prescriptions: New patient 05-25-2023 uses [facility]. May, Vitamin D deficiency (ICD-10 - E55.9) [...] sensor sample and an Office [employer] [place]. She was taught how to use the [...] the patient by Nguyễn Norwood RN, [facility]. [id number] Other 12-15-2023 Evaluation note* Encounter Date Diagnosis Assessment Notes Treatment Notes Treatment Clinical Notes Apr, Type 2 diabetes mellitus with hyperglycemia (ICD-10 - E11.65) Rx handwritten for diabetic shoes. Pt agrees to referral to specialty clinic. Continue present meds and discussed healthy diet in meantime. 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 She declines and will continue meds, followup in 3 months, and recheck labs at that time. She is eating more of a keto diet and is certain that is helping her A1C improve. Jun, Screening mammogram for breast cancer (ICD-10 - Z12.31) Zoila will call for an appt [id number] Other 12-15-2022 NotePROCEDURE: XR FOOT LT MIN [...] by: NARINDER LAN Date: 2022-04-15 06:08[facility]09-12-2022 NotePROCEDURE: XR TOES RT MIN 2 V HISTORY: Pain of toe of right foot ; first toe pain following injury COMPARISON: None. FINDINGS: BONES:No fracture, acute abnormality, or significant arthropathy. SOFT TISSUES:No visible soft tissue swelling. EFFUSION:None visible. OTHER: Negative. IMPRESSION: 1. No acute bone abnormality. 2. Mild degenerative joint disease. Electronically authenticated by: NARINDER LAN Date: 2022-01-11 18:48[facility]Reason for visit Narrative* Chief Complaint 3 Month Follow Up Referral Dr. Negro LAGUERRE download [facility] Work Phone: chief complaint+Reason for visit Narrative* Chief Complaint 3 Month Follow Up Referral Dr. Negro LAGUERRE download Reason for Visit Type 2 diabetes holli [facility] Work Phone: chief complaint+Reason for visit [...] Right wrist fracture Type 2 diabetes mellitus [facility] Work Phone: chief complaint+Reason for visit [...] mellitus Vitamin D deficiency Gastroesophageal reflux disease [facility] Work Phone: Evaluation noteNo InformationNort Zarpo Other Evaluation noteNo assessment information available [facility] Work Phone: Evaluation note* Diagnosis Onset Date Resolution Status Type 2 diabetes mellitus acu te [facility] Work Phone: Evaluation note* Diagnosis Onset Date Resolution Status Type 2 diabetes mellitus acu te Right wrist fracture acute Type 2 diabetes mellitus acu te [facility] Work Phone: evaluation note* Diagnosis Onset Date Resolution Status Type 2 diabetes mellitus acu te Right wrist fracture acute Type 2 diabetes mellitus acu te BMI 37.0-37.9, adult acute Dietary counseling and surveillance acute History of myocardial infarction acute HTN (hypertension) acute Hyperlipidemia acute Long-term insulin use acute Type 2 diabetes mellitus acu te Vitamin D deficiency acute Gastroesophageal reflux disease acute [facility] Work Phone: evaluation note* Diagnosis Onset [...] acute Type 2 diabetes mellitus acu te [facility] Work Phone: evaluation note* Diagnosis Onset [...] acute Type 2 diabetes mellitus acu te [facility] Work Phone: [email or web address] note* Diagnosis Onset Date Resolution Status Gastroesophageal [...] acute Type 2 diabetes mellitus acu te [facility] Work Phone: evaluation note* Diagnosis Onset [...] te Screening mammogram for breast cancer acute [facility] Work Phone: Evaluation note* Diagnosis Onset [...] mellitus acu te Vitamin D deficiency acute [facility] Work Phone: evaluation note* Diagnosis Onset [...] acute Type 2 diabetes mellitus acu te [facility] Work Phone: evaluation note* Diagnosis Onset [...] mellitus acu te Vitamin D deficiency acute [facility] Work Phone: [email or web address] note* Diagnosis Gangrene of toe of left foot ([facility] Primary [facility] - [facility]* Type Description Date Medical History Herpes labialis Medical History Candidiasis of mouth Medical History Type 2 diabetes holli itus with diabetic polyneuropathy, unspecified whether jail insulin use Medical History Controlled type 2 di abetes mellitus with hyperglycemia, 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 Medical History Obesity Medical History Dyslipidemia Medical History CAD in [place] artery Medical History Asthma, intermittent Medical History [...] History appendectomy Surgical History 7 stents 1999 [id number] Other History general Narrative - Reported* Type Description Date Medical History Herpes labialis Medical History Candidiasis of mouth Medical History Type 2 diabetes holli itus with diabetic polyneuropathy, 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 Medical History Controlled type 2 di abetes mellitus with hyperglycemia, 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 Medical History Obesity Medical History Dyslipidemia Medical History CAD in [place] artery Medical History Asthma, intermittent Medical History [...] stents 1999 Hospitalization History see surgical history [id number] Other Histtdt general Narrative - Reported* Type Description Date Medical History Herpes labialis Medical History Candidiasis of mouth Medical History Type 2 diabetes holli itus with diabetic polyneuropathy, 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 Medical History Controlled type 2 di abetes mellitus with hyperglycemia, unspecified whether jail insulin use Medical History Obesity Medical History Dyslipidemia Medical History CAD in [place] artery Medical History Asthma, intermittent Medical History [...] coronary 1999 Hospitalization History see surgical history [id number] Other InstructionsNot on filedocumented in this encounter [employer] [facility] Summary Purpose Family History No Family [...] Time Advance Directives No September 22 2:19pm Advance Directive Response Recorded Date/ Time Advance Directives No September 22 3:19pm Advance Directive Response Recorded Date/ Time Advance Directives No May 25, 2024 2:03pm Advance Directive Response Recorded Date/ Time Advance Directives No May 25, 2024 3:03pm Reason for Referral Reason *FU 04/22 [facility] - on insulin. high readings. Diagnosis 1 Type 2 diabetes holli itus with hyperglycemia (E11.65) Referral Organization [facility] Referring Provider First Name Shayy Referring Provider Last Name Jose De Jesus Referring Provider Specialty [facility] Referred Organization [facility] Referred Provider Marcia Mendes Referred Address [address] [place] [address],[facility],[place], [place],[address] Referred Provider Specialty Nurse uHey saldaña Referral [...] 2:03pm Type 2 diabetes mellitus May 24, 025 12:54pm Chief Complaint Admit Date Amb Documentation May 07, 2024 3: 31pm Dexcom reader DL May 24, 2024 1 2:54pm Wellness May 30, 2024 1 0:42am Amb Documentation June 13, 2024 9:38am Amb Documentation June 21, 2024 9:25am Unknown July 05, 2024 9:33 am Reason for Visit Admit Date Type 2 diabetes mellitus April 19, 2024 2:03pm Type 2 diabetes mellitus May 24, 2 025 12:54pm Colon cancer screening May 30 10:42am Long-term insulin use May 30, 2024 10:42am Type 2 diabetes mellitus May 30, 025 10:42am Wellness examination May 30, 2024 10:42am Additional Source Comments INFORMATION SOURCE (unrecogn ized section and content) DATE CREATED AUTHOR 10/25/2017 [facility] DATE CREATED AUTHOR AUTHOR'S ORGANIZ ATION 09/03/2022 [facility] DATE CREATED AUTHOR AUTHOR'S ORGANIZ ATION 06/16/2024 [facility] DATE CREATED AUTHOR AUTHOR'S ORGANIZ ATION 06/30/2024 [facility] DATE CREATED AUTHOR AUTHOR'S ORGANIZ ATION 07/13/2024 [facility] REASON FOR VISIT (unrecogniz [...] End: August 24, 2023 Cathie Vargas , DOCUMENTATION LEAD Active Star t: August 24, 2023 End: August 24, 2023 Team Status: Inactive Member Role Status Susan Dela Cruz MD Primary Care Provide r, Attending Provider Active Start: September 06, 2023 End: September 06, 2023 Team Status: Inactive Member Role Status Susan Dela Cruz MD Primary Care Provider Active Start: September 29, 2023 End: September 29, 2023 Cathie Vargas , DOCUMENTATION LEAD Attending Provider Active Start: September 29, 2023 End: September 29, 2023 Team Status: Inactive Member Role Status Susan Dela Cruz MD Primary Care Provider Active Start: November 07, 2023 End: November 07, 2023 Curtis Norwood RN Attending Provider Active St art: November 07, 2023 End: November 07, 2023 Cathie Vargas , DOCUMENTATION LEAD Active Star t: November 07, 2023 End: [...] End: July 28, 2023 Cathie Vargas , DOCUMENTATION LEAD Attending Provider Active Start: July 28, 2023 End: July 28, 2023 Team Status: Inactive Member Role Status Susan Dela Cruz MD Attending Provider Active St art: April 15, 2023 End: April 15, 2023 Team Status: Inactive Member Role Status Susan Vargas , DOCUMENTATION LEAD Attending Provider Active Start: May 25, 2023 [...] End: June 14, 2023 Cathie Vargas , DOCUMENTATION LEAD Active Star t: June 14, 2023 End: [...] End: December 13, 2023 Cathie Vargas , DOCUMENTATION LEAD Attending Provider Active Start: December 13, 2023 End: December 13, 2023 Team Status: Inactive Member Role Status Dates Shayy Dela Cruz MD Primary Care Provider Active Start: January 17, 2024 End: January 17, 2024 Cathie Vargas , DOCUMENTATION LEAD Active Star t: January 17, 2024 End: January 17, 2024 Brittani Collier RN Attending Provider Active Start: January 17, 2024 End: January 17, 2024 Team Status: Inactive Member Role Status Dates Shayy Dela Cruz MD Primary Care Provider Active Start: February 23, 2024 End: February 23, 2024 Cathie Vargas , DOCUMENTATION LEAD Attending Provider Active Start: February 23, 2024 End: February 23, 2024 Team Status: Inactive Member Role Status Dates Cathie Vargas , FATEMEH Attending Provider Active Start: February 23, 2024 End: February 23, 2024 Team Status: Active Member Role Status Dates Brittney Drummond CMA Attending Provider Active Start: February 28, 2024 Team Status: Active Member Role Status Dates PHYSICIAN NO FAMILY Primary Care Provider Active Start: June 01, 2024 Sailaja Messina PA-C Attending Provider Active Start: June 01, 2024 Team Status: Active Member Role Status Dates PHYSICIAN NO FAMILY Primary Care Provider Active Start: June 07, 2024 Shayy Dela Cruz MD Attending Provider Active St art: June 07, 2024 Team Status: Active Member Role Status Dates PHYSICIAN NO FAMILY Primary Care Provider Active Start: June 12, 2024 Cathie Vargas FATEMEH Attending Provider Active Start: June 12, 2024 Team Status: Active Member Role Status Dates PHYSICIAN NO FAMILY Primary Care Provider Active Start: June 13, 2024 Brittney Drummond CMA Attending Provider Active Start: June 13, 2024 Team Status: Active Member Role Status Dates PHYSICIAN NO FAMILY Primary Care Provider Active Start: June 19, 2024 Jordyn Bruce DPM MS Attending Provider Active Start: June 19, 2024 Team Status: Active Member Role Status Dates PHYSICIAN NO FAMILY Primary Care Provider Active Start: June 20, 2024 Husam Abel DO Attending Provider Active Sta rt: June 20, 2024 Team Status: Active Member Role Status Dates PHYSICIAN NO FAMILY Primary Care Provider Active Start: June 21, 2024 Brittney Drummond CMA Attending Provider Active Start: June 21, 2024 Team Status: Inactive Member Role Status Dates Shayy Dela Cruz MD Primary Care Provider Active Start: July 05, 2024 End: July 05, 2024 Jordyn Bruce DPM MS Attending Provider Active Start: July 05, 2024 End: July 05, 2024 Goals (unrecognized section and content) Goals [...] BE BASED ON THE PRIMARY CLINICAL RECORDS. [employer] provides no warranty or guarantee of the accuracy or completeness of information in this document.
== END 2024-07-25 10:35 | disposition home or self-care (01) ==
LOC: WC 10:34
PROVIDERS: PCP Family Medicine; Visit Provider Physician Assistant
DX: T87.89 Other complications of amputation stump (principal)
CPT/HCPCS: G0463

== ENCOUNTER 2024-08-10 11:13 | Outpatient (OUT) | payer MEDICARE, MEDICAID, SELFPAY ==
--- NOTE | 2024-08-10 | XR_ITS ---
The [address] [address] Patient Name: COLETTE DINH MRN: [id number] date: 1970 Sex: F Assigned Patient Location: Current Patient Location: Accession/Order Number: [id number] Exam Date: 08/10/2024 11:50 Report Date: 08/10/2024 11:55 At the request of: JORDYN SANCHEZ DPNegro Procedure: XR foot LT min 3V 3 views left foot plain film COMPARISON:07/05/2024 HISTORY: Sharp heel pain. Swelling. Postop imaging of the foot ACUTE FINDINGS: No new bony destruction. DEGENERATIVE CHANGE: Similar degenerative changes tiny calcaneal spur SOFT TISSUE FINDINGS: Similar soft tissue swelling. Resolved subcutaneous air. Atherosclerosis. 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 BONE MINERALIZATION: Diffuse osteopenia XR/XR foot LT min 3V IMPRESSION: Stable postsurgical changes. No developing osteomyelitis. No subcutaneous air. Impression dictated by: Yoni Callahan M.D.08/10/2024 11:55 AM Dictation Location: [place] [address] Electronically authenticated by: [id number] Y Date: 08/10/2024 11:55
--- OUTSIDE RECORDS SUMMARY | 2024-08-10 11:31 | XMS_ITS | CCD ---
Author Organization [facility] CliniSymt Care Team Providers Care Break Off Worker Name Role Phone PHYSICIAN, DEFAULT Unavailable Unavailable [...] Shayy Dela Cruz Primary Care Provider [phone] MD Shayy Dela Cruz Attending Provider MD Shayy Dela Cruz Primary Care Provider [phone] MD Shayy Dela Cruz Attending Provider [phone] FATEMEH Vargas C Attending Provider Unavailable Primary [...] (1 source) codeine Drug Allergy 9 [facility] (20 sources) Latex; Translations: [LATEX] Drug allergy (disorder) 9 sores on skin [facility] (20 sources) Codeine; Translations: [CODEINE] Drug Allergy 0 nausea [facility] (19 sources) Latex Drug allergy 5 sores on skin [facility] Other (1 source) Codeine Drug Allergy [facility] (10 sources) cat dander Allergy to substance 4 Sneezing, Itching [facility] (10 sources) dog dander Allergy to substance 4 Sneezing, Itching [facility] (10 sources) ozempic Propensity to adverse reactions 4 Vomiting [facility] (3 sources) Insulin Lispro; Translations: [INSULIN LISPRO] Drug Allergy 5 Rash [facility] (3 sources) tomato allergenic extract; Translations: [...] 2024 5:10pm Blood-Glucose Meter,Continuo us (Dexcom G7 Plywood Stock Grader) misc (8 sources) Start: 12-13-2023 Blood-Glucose Meter,Continuous (Dexcom G7 Plywood Stock Grader) misc Active 0 .Route December 12, 2023 11:00pm As directed Start: 12-13-2023 Blood-Glucose Meter,Continuous (Dexcom G7 Plywood Stock Grader) misc Active 0 .Route December 13, 2023 12:00am As directed Start: 12-13-2023 Blood-Glucose Meter,Continuous (Dexcom G7 Plywood Stock Grader) misc Active 0 .ROUTE December 13, 2023 12:00am As directed Blood-Glucose Sensor (Dexcom G7 Sensor) device (9 sources) Start: 07-16-2024 Blood-Glucose Sensor (Dexcom G7 Sensor) device Active 0 .Route 9 July 16, 2024 10:30am As directed change every 10 days Start: 12-13-2023 End: 07-16-2024 Blood-Glucose Sensor (Dexcom G7 Sensor) device Discontinued 0 .Route December 13, 2023 12:00am July 16, 2024 10:32am As directed Start: 12-13-2023 Blood-Glucose Sensor (Dexcom [...] (20 sources) alpha-Adrenergic Petty, beta-Adrenergic Petty Start: 07-09-2024 take 1 tablet by mouth twice daily Carvedilol 6.25 mg tablet Active 0 .ROUTE .COMPLEX 180 July 09, 2024 11:48am TAKE 1 TABLET BY MOUTH TWICE A DAY FOR 90 DAYS Start: 10-10-2023 End: 07-09-2024 take 1 tablet by mouth twice daily Carvedilol 6.25 mg tablet Discontinued 6.25 MG PO Twice daily 180 March 09, 2024 10:42am July 09, 2024 11:48am Start: 07-06-2023 End: 10-10-2023 take 1 tablet [...] Orally Once a day Active Dexcom G7 Plywood Stock Grader - (4 sources) Start: 06-03-19 24 Dexcom G7 Plywood Stock Grader - as directed as directed 4 x [...] Start: 02-06-2024 take 1 capsule by mo cox branson once daily Esomeprazole Magnesium Active 0 .ROUTE [...] 90 Each; Provider: Jose De Jesus Reyes famotidine 20 mg oral tablet (20 sources) Histamine-2 Receptor Antagonist Start: 07-09-2024 take 1 tablet by mouth once daily at bedtime Famotidine 20 mg tablet Active 0 .ROUTE .COMPLEX July 09, 2024 11:48am TAKE 1 TABLET BY MOUTH DAILY AT BEDTIME Start: 08-22-2023 End: 07-09-2024 take 1 tablet by mouth once daily at bedtime as needed Famotidine 20 mg tablet Discontinued 20 MG PO Daily at bedtime as needed September 29, 2023 1:37pm March 09, 2024 10:43am fluticasone propionate 0.05 mg/actuat metered dose nasal [...] End: 07-04-2024 Fluticasone Propionate 50 mcg/actuation spray,suspension Discontinued 2 SPRAY INTRANASAL Daily March 26, 2024 2:10pm July 04, 2024 11:36am Start: 11-29-2023 End: [...] Fluticasone Propionate 110 mcg/actuation HFA aerosol inhaler (20 sources) Start: 06-18-2024 take 1 puff(s) by [...] Jesus Lucas ( ) FreeStyle Amrik 3 Hiddenite - (3 sources) Start: 06-06-2023 FreeStyle Amrik 3 Hiddenite - as directed invitro 4 times daily for 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 Jun, Active FreeStyle Amrik 3 Sensor - (3 sources) Start: 06-06-2023 FreeStyle Amrik 3 Sensor - as directed invitro change every 14 days for 84 days Dx E11.65 Jun, Active hydroCHLOROthiazide 12.5 mg oral capsule (7 sources) Thiazide Diuretic take 1 capsule by mouth every twenty-four hours hydroCHLOROthiazide 12.5 MG 1 capsule in the morning Orally Once a day Active 3 ml insulin glargine 300 unt/ml pen injector (19 sources) Insulin Analog Start: 05-24-2024 TOUJEO MAX U-300 SOLOSTAR 300 unit/mL (3 [...] Solostar) 300 unit/mL (3 mL) insulin pen (12 sources) Start: 08-07-2024 Insulin Glargi ne U-300 Conc (Toujeo Max U-300 Solostar) 300 unit/mL (3 mL) insulin pen Active 95 UNIT SUBCUT Daily August 07, 2024 1:22pm Titrate to 100 u daily, has written instructions. Dispense ToujeoSolostar if any procurement/ delay issues Start: 05-28-2024 End: 08-07-2024 Insulin Glargine U-300 Conc (Toujeo Max U-300 Solostar) 300 unit/mL (3 mL) insulin pen Discontinued 87 UNIT SUBCUT Daily May 28, 2024 10:45am August 07, 2024 1:25pm Titrate to 100 u daily, has written [...] UNIT SUBCUT Daily March 08, 2024 11:14am Marcela 27th, 2025 9:48am Titrate to 100 u daily, has [...] mg oral tablet (20 sources) Biguanide Start: 08-07-2024 Metformin 1,00 0 mg tablet Active 500 MG PO Twice daily August 07, 2024 1:24pm Start: 05-28-2024 End: 08-07-2024 Metformin 1,000 mg tablet Discontinued 0 .ROUTE .COMPLEX 180 May 28, 2024 6:00pm August 07, 2024 1:25pm TAKE 1 TABLET TWICE A DAY Start: [...] Drug Class(es) Dates Sig (Normalized) Sig (Original) [id number] 200 actuat albuterol 0.09 mg/actuat metered dose [...] Jun, Not-Taking/PRN Blood-Glucose Meter,Continuous (Freestyle Amrik 3 Hiddenite) misc (15 sources) Start: 07-28-2023 End: 12-13-2023 Blood-Glucose Meter,Continuous (Freestyle Amrik 3 Hiddenite) misc Discontinued EACH .ROUTE .MEDSUPPLY July 27, 2023 11:00pm December 13, 2023 12:09pm As directed Start: 07-28-2023 End: 12-13-2023 Blood-Glucose Meter,Continuo us (Freestyle Amrik 3 Hiddenite) misc Discontinued EACH .ROUTE .MEDSUPPLY July 28, 2023 12:00am December 13, 2023 1:09pm As directed Start: 07-28-2023 Blood-Glucose Meter,Continuous (Freestyle Amrik 3 Hiddenite) misc Active EACH .ROUTE .MEDSUPPLY July 28, 2023 12:00am As directed Blood-Glucose Sensor (Freest yle Amrik 3 Sensor) device (15 sources) Start: 07-28-2023 End: 12-13-2023 Blood-Glucose Sensor [...] directed Esomeprazole Magnesium 40 mg capsule,delayed release(DR/EC) (4 sources) Start: 02-06-2024 End: 03-09-2024 take 1 [...] 9:43am TAKE ONE CAPSULE BY MOUTH DAILY glipiZIDE 10 mg oral tablet (20 sources) Sulfonylurea Start: 08-24-2023 End: 06-06-2024 take 5 mg by mouth twice daily, then take 2 tablets by mouth at mealtime Glipizide 10 mg tablet Discontinued 5 MG PO Twice daily 60 March 08, 2024 1:53pm June 06, 2024 9:23am take 5 mg [...] MOUTH TWO TIMES DAILY for 90 Active Insulin Aspart U-100 (Novolog Flexpen U-100 Insulin) 100 unit/mL (3 mL) insulin pen (16 sources) Start: 07-12-2023 End: 07-19-2023 inject 1 [...] ( ) meloxicam 15 mg oral tablet (11 sources) Nonsteroidal Anti-inflammatory Drug Start: 09-29-2023 End: 12-05-2023 take 1 tablet by mouth once daily Meloxicam 15 mg tablet Discontinued 15 MG PO Daily September 29, 2023 12:00am December 05, 2023 11:28am Semaglutide (14 sources) Start: 07-28-2023 End: 08-19-2023 Semaglutide (Ozempic) [...] angina pectoris; Translations: [Atherosclerotic heart disease of [place] coronary artery without angina pectoris] Onset: 07-12-2022 [...] Onset: 07-13-2022 Chronic Fracture of upper limb (20 sources) Fracture at wrist and/or hand level; [...] UNS SITE] Onset: 11-09-2021 Chronic Other aftercare (20 sources) retirement (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 of insulin; Translations: [Long-term (current) [...] injuries and conditions due to external causes (15 sources) Fracture of bone; Translations: [Other injury of unspecified body region, initial encounter] 07-28-2023 Episodic Other non-traumatic joint disorders (5 sources) Shoulder pain; Translations: [Pain in left shoulder] Episodic Other non-traumatic joint disorders (13 sources) Pain in left shoulder; Translations: [Left shoulder pain] Episodic Other non-traumatic joint disorders (11 sources) Ankle pain; Translations: [Pain in right [...] Chronic Other nutritional; endocrine; and metabolic disorders (16 sources) Body mass index (BMI) 37.0-37.9, adult; Translations: [Body Mass Index 37.0-37.9, adult] Chronic Other nutritional; endocrine; and metabolic disorders (15 sources) Body mass index 30+ - obesity; [...] terminal gauger (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; Translations: [LICENSED ARCHITECT CURRENT USE OF ASPIRIN] Onset: 04-08-2022 Episodic Other aftercare (1 source) terminal gauger (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 of oral hypoglycemic drugs; Translations: [[facility] USE ORAL HYPOGLYCEMIC DX] Onset: 04-08-2022 Episodic Other aftercare (1 source) Other senior care (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 therapy; Translations: [OTH [facility] CURRENT DRUG THERAPY] Onset: 11-09-2021 Episodic Other [...] By: Tejal Church on 07-10-2024 Pathology study [facility] Other Aren 07-05-2024 L Specimen: [id number] Received: 07/06/24 Status: SAM Cook Num: [id number] Spec Type: Surgical Subm Dr: Jordyn Bruce,[place], [place] Tissues: A DIGIT AMPUTATION (2ND LEFT TOE PARTIAL) B DIGIT AMPUTATION (3RD LEFT TOE) Procedures: HE/5, Gross/Micro L4/2, Decalcification/2 Age/ Patient Sex Location Account Attending Physician Zoila Ramos 54/F LABELL [id number] Jordyn Bruce DPM, SPEC NUM: [id number] RECD: 07/06/24 STATUS: SAM COOK NUM: [id number] JESSICA: 07/05/[address]: Jordyn Bruce DPM, [place] ENTERED: 07/06/[address] [facility] [address]: Robert,Chasity SPEC TYPE: Surgical DEPT: AVERY GARCIA ORDERED: [...] ulcer, left second and third toes Specimen: [id number] Received: 07/06/24 Status: SAM Cook Num: [id number] Spec Type: Surgical Subm Dr: Jordyn Bruce DPM, [place] Tissues: A DIGIT AMPUTATION (2ND LEFT TOE PARTIAL) B DIGIT AMPUTATION (3RD LEFT TOE) Procedures: HE/5, Gross/Micro L4/2, Decalcification/2 Patient: RichardZoila [id number] (Continued) Specimen: [id number] Received: 07/06/24 (Continued) Signed (signature on file) Tejal Church MD 07/10/24 1438 Specimen: [id number] Received: 07/06/24 Status: SAM Cook Num: [id number] Spec Type: Surgical Subm Dr: Jordyn Bruce,[place], [place] Tissues: A DIGIT AMPUTATION (2ND LEFT TOE PARTIAL) B DIGIT AMPUTATION (3RD LEFT TOE) Procedures: HE/5, Gross/Micro L4/2, Decalcification/2 Patient: Zoila Ramos [id number] (Continued) Specimen: [id number] Received: 07/06/24-1327 (Continued) Gross Description Part A is received [...] x 1 x 0.4 cm. Cassettes: A1 Enlisted Advisor section of the wound with underlying central second phalangeal bone, decalcified A2 Tangential sections of proximal skin margin A3 Detached skin ( 3, ss, NO18-120 A) Part B is received in formalin labeled [...] Tangential sections of proximal skin margin with resources representative sec (more content not included)... Normal [facility] Orders Onlyon 06-25-2024 Orders Only [id number] Zoila Ramos 1970 F [facility] Provider Department [facility] 06/25/2024 928-JESSICA STONE [facility] No family history on file Normal [facility] Activated partial thrombopla stin time (aPTT) in platelet poor plasma by coagulation aon 06-19-2024 aPTT Coag (PPP) [Time] Activated partial thromboplastin time (aPTT) in platelet poor plasma by coagulation a 22.3-36.2 [facility] Basophils Auto (Bld) [#/Vol] on 06-19-2024 Basophils (Bld) [#/Vol] Automated basophil count 0.0-0.1 [facility] Basophils/100 WBC Auto (Bld) on 06-19-2024 Basophils/100 WBC (Bld) Automated basophil % 0.2-2.0 [facility] Eosinophils/100 WBC Auto (Bl d)on 06-19-2024 Eosinophils/100 WBC (Bld) Automated eosinophil % 0.9-7.0 [facility] Erythrocyte distribution wid th Auto (RBC) [Ratio]on 06-19-2024 Erythrocyte distribution width (RBC) [Ratio] Erythrocyte distribution width [Ratio] by Automated count 11.0-15.0 [facility] Estimated glomerular filtrat ion rate (GFR) non- Americanon 06-19-2024 GFR/1.73 sq M.predicted among non-blacks MDRD (S/P/Bld) [Vol rate/Area] Estimated glomerular filtration rate (GFR) non- >=60 mL/min/1.73m 2 [facility] Globulin Calc (S) [Mass/Vol] on 06-19-2024 Globulin (S) [Mass/Vol] Serum globulin measurement by calculation (mass/volume) [facility] Hematocrit Auto (Bld) [Volum e fraction]on 06-19-2024 Hematocrit (Bld) [Volume fraction] Hematocrit [Volume Fraction] of Blood by Automated count 36.0-48.0 [facility] Hemoglobin [Mass/volume] in Bloodon 06-19-2024 Hemoglobin (Bld) [Mass/Vol] Hemoglobin [Mass/volume] in Blood 12.0-16.0 [facility] INR in Platelet poor plasma by Coagulation assayon 06-19-2024 INR Coag (PPP) [Relative time] INR in Platelet poor plasma by Coagulation assay [facility] Comment on above: DESIRED INR:2.0-3.0 CONDITIONS NOT LISTED BELOW2.5-3.5 FOR PROSTHETIC HEART VALVE REPLACEMENT2.5-3.5 RECURRENT THROMBOSIS Laboratory - Chemistry and C hemistry - challengeon 06-19-2024 Albumin [Mass/Vol] 3.3 g/dL Low 3.4-5.0 [facility] ALP [Catalytic activity/Vol] 110 U/L 46-116 [facility] ALT [Catalytic activity/Vol] 44 U/L 14-59 [facility] AST [Catalytic activity/Vol] 23 U/L 15-37 [facility] Bilirubin [Mass/Vol] 0.3 mg/dL 0.2-1.0 [facility] Calcium [Mass/Vol] 9.3 mg/dL 8.5-10.1 [facility] Chloride [Moles/Vol] 102 mmol/L 98-107 [facility] CO2 [Moles/Vol] 27.9 mmol/L 21.0-32.0 [facility] Creatinine [Mass/Vol] 0.88 mg/dL 0.55-1.02 [facility] GFR/1.73 sq M.predicted MDRD (S/P/Bld) [Vol rate/Area] mL/min/{1.73_m2} >=60 mL/min/1.73m 2 [facility] Glucose [Mass/Vol] 175 mg/dL High 74-106 [facility] Lipase [Catalytic activity/Vol] 28.0 U/L 16.0-77.0 [facility] Potassium [Moles/Vol] 4.2 mmol/L 3.5-5.1 [facility] Protein [Mass/Vol] 7.6 g/dL 6.4-8.2 [facility] Sodium [Moles/Vol] 137 mmol/L 136-145 [facility] Urea nitrogen [Mass/Vol] 12.0 mg/dL 7.0-18.0 [facility] Urea nitrogen/Creatinine [Mass ratio] 13.6 mg/mg [facility] Laboratory - Hematology and Cell countson 06-19-2024 Immature granulocytes/100 WBC (Bld) 0.1 % 0.0-0.5 [facility] Leukocytes [#/volume] correc alma delia for nucleated erythrocytes in Blood by Automated counon 06-19-2024 WBC corrected for nucl RBC Auto (Bld) [#/Vol] Leukocytes [#/volume] corrected for nucleated erythrocytes in Blood by Automated coun 4.0-11.0 [facility] Lymphocytes Auto (Bld) [#/Vo l]on 06-19-2024 Lymphocytes (Bld) [#/Vol] Lymphocytes [#/volume] in Blood by Automated count 1.2-3.8 [facility] Lymphocytes/100 WBC Auto (Bl d)on 06-19-2024 Lymphocytes/100 WBC (Bld) Lymphocytes/100 leukocytes in Blood by Automated count 20.5-60.0 [facility] MCH Auto (RBC) [Entitic mass ]on 06-19-2024 MCH (RBC) [Entitic mass] MCH [Entitic mass] by Automated count 26.7-34.0 [facility] MCHC Auto (RBC) [Mass/Vol]on 06-19-2024 MCHC (RBC) [Mass/Vol] MCHC [Mass/volume] by Automated count 29.9-35.2 [facility] MCV Auto (RBC) [Entitic vol] on 06-19-2024 MCV (RBC) [Entitic vol] MCV [Entitic volume] by Automated count 81.0-99.0 [facility] Monocytes Auto (Bld) [#/Vol] on 06-19-2024 Monocytes (Bld) [#/Vol] Automated blood monocyte count 0.3-0.8 [facility] Monocytes/100 WBC Auto (Bld) on 06-19-2024 Monocytes/100 WBC (Bld) Automated monocyte % 1.7-12.0 [facility] Neutrophils Auto (Bld) [#/Vo l]on 06-19-2024 Neutrophils (Bld) [#/Vol] Neutrophils [#/volume] in Blood by Automated count 1.4-6.5 [facility] Neutrophils/100 WBC Auto (Bl d)on 06-19-2024 Neutrophils/100 WBC (Bld) Automated neutrophil % 43.0-75.0 [facility] No Panel Informationon 06-19 Eosinophils # (Auto) 0.2 10 3/uL 0.0-0.7 [facility] Immature Granulocyte # (Auto) 0.01 10 3/uL 0.00-0.03 [facility] Office Visiton 06-19-2024 Follow-up visit [id number] Zoila Ramos 1970 F Date Provider Department Center 06/19/2024 MARQUES MCINTYRE CARD [facility] No family history on file Level of Service:00025 [place] OFFICE/OUTPATIENT ESTABLISHED MOD MDM 30 MIN Normal [facility] Platelet mean volume Auto (B ld) [Entitic vol]on 06-19-2024 Platelet mean volume (Bld) [Entitic vol] Platelet mean volume [Entitic volume] in Blood by Automated count 9.5-13.5 [facility] Platelets Auto (Bld) [#/Vol] on 06-19-2024 Platelets (Bld) [#/Vol] Platelets [#/volume] in Blood by Automated count 150-450 [facility] Prothrombin time (PT)on 06-02 PT Coag (PPP) [Time] Prothrombin time (PT) 9.0-11.6 [facility] RBC Auto (Bld) [#/Vol]on RBC (Bld) [#/Vol] Erythrocytes [#/volume] in Blood by Automated count 4.20-5.40 [facility] Serum or plasma albumin/glob ulin mass ratioon 06-19-2024 Albumin/Globulin [Mass ratio] Serum or plasma albumin/globulin mass ratio [facility] Serum or plasma anion gap de terminationon 06-19-2024 Anion gap [Moles/Vol] Serum or plasma anion gap determination [facility] Cholesterol in LDL Calc [Mas s/Vol]on 06-12-2024 Cholesterol in LDL [Mass/Vol] Cholesterol in LDL [Mass/volume] in Serum or Plasma by calculation [facility] Comment on above: <100 mg/dl [id number] 0-129 mg/dl NEAR OR ABOVE [id number] mg/dl BORDERLINE [id number] mg/dl HIGH>190 mg/dl VERY HIGH Cholesterol in VLDL Calc [Ma ss/Vol]on 06-12-2024 Cholesterol in VLDL [Mass/Vol] Cholesterol in VLDL [Mass/volume] in Serum or Plasma by calculation [facility] Estimated glomerular filtrat ion rate (GFR) non- Americanon 06-12-2024 GFR/1.73 sq M.predicted among non-blacks MDRD (S/P/Bld) [Vol rate/Area] Estimated glomerular filtration rate (GFR) non- >=60 mL/min/1.73m 2 [facility] Globulin Calc (S) [Mass/Vol] on 06-12-2024 Globulin (S) [Mass/Vol] Serum globulin measurement by calculation (mass/volume) [facility] Laboratory - Chemistry and C hemistry - challengeon 06-12-2024 Albumin [Mass/Vol] 3.1 g/dL Low 3.4-5.0 [facility] ALP [Catalytic activity/Vol] 118 U/L High 46-116 [facility] ALT [Catalytic activity/Vol] 36 U/L 14-59 [facility] AST [Catalytic activity/Vol] 18 U/L 15-37 [facility] Bilirubin [Mass/Vol] 0.3 mg/dL 0.2-1.0 [facility] Calcium [Mass/Vol] 9.1 mg/dL 8.5-10.1 [facility] Chloride [Moles/Vol] 102 mmol/L 98-107 [facility] Cholesterol [Mass/Vol] 124 mg/dL <=200 [facility] Cholesterol in HDL [Mass/Vol] 43 mg/dL 40-60 [facility] Comment on above: > or =60 mg/dl - LOW CARDIOVASCULAR RISK<40 mg/dl - HIGH CARDIOVASCULAR RISK CO2 [Moles/Vol] 28.4 mmol/L 21.0-32.0 [facility] Cobalamin (Vitamin B12) [Mass/Vol] 998 pg/mL 232-1245 [facility] Comment on above: Performed at: [address] [id number] Director: Gerald Jacobs PhD, Phone: [phone] Creatinine [Mass/Vol] 0.87 mg/dL 0.55-1.02 [facility] GFR/1.73 sq M.predicted MDRD (S/P/Bld) [Vol rate/Area] mL/min/{1.73_m2} >=60 mL/min/1.73m 2 [facility] Glucose [Mass/Vol] 197 mg/dL High 74-106 [facility] Potassium [Moles/Vol] 4.5 mmol/L 3.5-5.1 [facility] Protein [Mass/Vol] 7.3 g/dL 6.4-8.2 [facility] Sodium [Moles/Vol] 142 mmol/L 136-145 [facility] Triglyceride [Mass/Vol] 68 mg/dL <=150 [facility] Urea nitrogen [Mass/Vol] 11.0 mg/dL 7.0-18.0 [facility] Urea nitrogen/Creatinine [Mass ratio] 12.6 mg/mg [facility] No Panel Informationon 06-12 25-Hydroxy Vitamin D Total 44.6 ng/mL [facility] Comment on above: <20 ng/mL Vit D defi cient20-<30 ng/mL Vit D [id number] ng/mL Vit D sufficient>100 ng/mL Potential Toxicity Serum or plasma albumin/glob ulin mass ratioon 06-12-2024 Albumin/Globulin [Mass ratio] Serum or plasma albumin/globulin mass ratio [facility] Serum or plasma anion gap de terminationon 06-12-2024 Anion gap [Moles/Vol] Serum or plasma anion gap determination [facility] Serum or plasma total choles terol/high density lipoprotein (HDL) cholesterol mass jaun 06-12-2024 Cholesterol.total/Ch olesterol in HDL [Mass ratio] Serum or plasma total cholesterol/high density lipoprotein (HDL) cholesterol mass rat [facility] Comment on above: 3.3 - 4.4 LOW RISK4. 4 - 7.1 AVERAGE RISK7.1 - 11.0 MODERATE RISK>11.0 HIGH RISK Basophils Auto (Bld) [#/Vol] on 06-07-2024 Basophils (Bld) [#/Vol] Automated basophil count 0.0-0.1 [facility] Basophils/100 WBC Auto (Bld) on 06-07-2024 Basophils/100 WBC (Bld) Automated basophil % 0.2-2.0 [facility] Eosinophils/100 WBC Auto (Bl d)on 06-07-2024 Eosinophils/100 WBC (Bld) Automated eosinophil % 0.9-7.0 [facility] Erythrocyte distribution wid th Auto (RBC) [Ratio]on 06-07-2024 Erythrocyte distribution width (RBC) [Ratio] Erythrocyte distribution width [Ratio] by Automated count 11.0-15.0 [facility] Estimated glomerular filtrat ion rate (GFR) non- Americanon 06-07-2024 GFR/1.73 sq M.predicted among non-blacks MDRD (S/P/Bld) [Vol rate/Area] Estimated glomerular filtration rate (GFR) non- >=60 mL/min/1.73m 2 [facility] Globulin Calc (S) [Mass/Vol] on 06-07-2024 Globulin (S) [Mass/Vol] Serum globulin measurement by calculation (mass/volume) [facility] Hematocrit Auto (Bld) [Volum e fraction]on 06-07-2024 Hematocrit (Bld) [Volume fraction] Hematocrit [Volume Fraction] of Blood by Automated count 36.0-48.0 [facility] Hemoglobin [Mass/volume] in Bloodon 06-07-2024 Hemoglobin (Bld) [Mass/Vol] Hemoglobin [Mass/volume] in Blood 12.0-16.0 [facility] Laboratory - Chemistry and C hemistry - challengeon 06-07-2024 Lactate [Moles/Vol] 1.9 mmol/L 0.4-2.0 [facility] Albumin [Mass/Vol] 3.3 g/dL Low 3.4-5.0 [facility] ALP [Catalytic activity/Vol] 115 U/L 46-116 [facility] ALT [Catalytic activity/Vol] 39 U/L 14-59 [facility] AST [Catalytic activity/Vol] 16 U/L 15-37 [facility] Bilirubin [Mass/Vol] 0.2 mg/dL 0.2-1.0 [facility] Calcium [Mass/Vol] 9.4 mg/dL 8.5-10.1 [facility] Chloride [Moles/Vol] 104 mmol/L 98-107 [facility] CO2 [Moles/Vol] 27.1 mmol/L 21.0-32.0 [facility] Creatinine [Mass/Vol] 0.86 mg/dL 0.55-1.02 [facility] GFR/1.73 sq M.predicted MDRD (S/P/Bld) [Vol rate/Area] mL/min/{1.73_m2} >=60 mL/min/1.73m 2 [facility] Glucose [Mass/Vol] 157 mg/dL High 74-106 [facility] Potassium [Moles/Vol] 4.4 mmol/L 3.5-5.1 [facility] Protein [Mass/Vol] 7.3 g/dL 6.4-8.2 [facility] Sodium [Moles/Vol] 142 mmol/L 136-145 [facility] Urea nitrogen [Mass/Vol] 23.0 mg/dL High 7.0-18.0 [facility] Urea nitrogen/Creatinine [Mass ratio] 26.7 mg/mg [facility] Laboratory - Hematology and Cell countson 06-07-2024 ESR (Bld) [Velocity] 41 mm/h High <=30 [facility] Immature granulocytes/100 WBC (Bld) 0.2 % 0.0-0.5 [facility] Leukocytes [#/volume] correc alma delia for nucleated erythrocytes in Blood by Automated counon 06-07-2024 WBC corrected for nucl RBC Auto (Bld) [#/Vol] Leukocytes [#/volume] corrected for nucleated erythrocytes in Blood by Automated coun 4.0-11.0 [facility] Lymphocytes Auto (Bld) [#/Vo l]on 06-07-2024 Lymphocytes (Bld) [#/Vol] Lymphocytes [#/volume] in Blood by Automated count 1.2-3.8 [facility] Lymphocytes/100 WBC Auto (Bl d)on 06-07-2024 Lymphocytes/100 WBC (Bld) Lymphocytes/100 leukocytes in Blood by Automated count 20.5-60.0 [facility] MCH Auto (RBC) [Entitic mass ]on 06-07-2024 MCH (RBC) [Entitic mass] MCH [Entitic mass] by Automated count 26.7-34.0 [facility] MCHC Auto (RBC) [Mass/Vol]on 06-07-2024 MCHC (RBC) [Mass/Vol] MCHC [Mass/volume] by Automated count 29.9-35.2 [facility] MCV Auto (RBC) [Entitic vol] on 06-07-2024 MCV (RBC) [Entitic vol] MCV [Entitic volume] by Automated count 81.0-99.0 [facility] Monocytes Auto (Bld) [#/Vol] on 06-07-2024 Monocytes (Bld) [#/Vol] Automated blood monocyte count 0.3-0.8 [facility] Monocytes/100 WBC Auto (Bld) on 06-07-2024 Monocytes/100 WBC (Bld) Automated monocyte % 1.7-12.0 [facility] Neutrophils Auto (Bld) [#/Vo l]on 06-07-2024 Neutrophils (Bld) [#/Vol] Neutrophils [#/volume] in Blood by Automated count 1.4-6.5 [facility] Neutrophils/100 WBC Auto (Bl d)on 06-07-2024 Neutrophils/100 WBC (Bld) Automated neutrophil % 43.0-75.0 [facility] No Panel Informationon 06-07 C-Reactive Protein, Quantitative 1.46 mg/dL High <=0.50 [facility] Eosinophils # (Auto) 0.3 10 3/uL 0.0-0.[address] [facility] Immature Granulocyte # (Auto) 0.02 10 3/uL 0.00-0.03 [facility] Platelet mean volume Auto (B ld) [Entitic vol]on 06-07-2024 Platelet mean volume (Bld) [Entitic vol] Platelet mean volume [Entitic volume] in Blood by Automated count 9.5-13.5 [facility] Platelets Auto (Bld) [#/Vol] on 06-07-2024 Platelets (Bld) [#/Vol] Platelets [#/volume] in Blood by Automated count 150-450 [facility] RBC Auto (Bld) [#/Vol]on RBC (Bld) [#/Vol] Erythrocytes [#/volume] in Blood by Automated count 4.20-5.40 [facility] Serum or plasma albumin/glob ulin mass ratioon 06-07-2024 Albumin/Globulin [Mass ratio] Serum or plasma albumin/globulin mass ratio [facility] Serum or plasma anion gap de terminationon 06-07-2024 Anion gap [Moles/Vol] Serum or plasma anion gap determination [facility] Basophils Auto (Bld) [#/Vol] on 06-01-2024 Basophils (Bld) [#/Vol] Automated basophil count 0.0-0.1 [facility] Basophils/100 WBC Auto (Bld) on 06-01-2024 Basophils/100 WBC (Bld) Automated basophil % 0.2-2.0 [facility] Eosinophils/100 WBC Auto (Bl d)on 06-01-2024 Eosinophils/100 WBC (Bld) Automated eosinophil % 0.9-7.0 [facility] Erythrocyte distribution wid th Auto (RBC) [Ratio]on 06-01-2024 Erythrocyte distribution width (RBC) [Ratio] Erythrocyte distribution width [Ratio] by Automated count 11.0-15.0 [facility] Estimated glomerular filtrat ion rate (GFR) non- Americanon 06-01-2024 GFR/1.73 sq M.predicted among non-blacks MDRD (S/P/Bld) [Vol rate/Area] Estimated glomerular filtration rate (GFR) non- Low >=60 mL/min/1.73m 2 [facility] Hematocrit Auto (Bld) [Volum e fraction]on 06-01-2024 Hematocrit (Bld) [Volume fraction] Hematocrit [Volume Fraction] of Blood by Automated count 36.0-48.0 [facility] Hemoglobin [Mass/volume] in Bloodon 06-01-2024 Hemoglobin (Bld) [Mass/Vol] Hemoglobin [Mass/volume] in Blood 12.0-16.0 [facility] - Chemistry and C hemistry - challengeon 06-01-2024 Calcium [Mass/Vol] 9.0 mg/dL 8.5-10.1 [facility] Chloride [Moles/Vol] 105 mmol/L 98-107 [facility] CO2 [Moles/Vol] 29.8 mmol/L 21.0-32.0 [facility] Creatinine [Mass/Vol] 1.01 mg/dL 0.55-1.02 [facility] GFR/1.73 sq M.predicted MDRD (S/P/Bld) [Vol rate/Area] mL/min/{1.73_m2} >=60 mL/min/1.73m 2 [facility] Glucose [Mass/Vol] 171 mg/dL High 74-106 [facility] Potassium [Moles/Vol] 4.6 mmol/L 3.5-5.1 [facility] Sodium [Moles/Vol] 140 mmol/L 136-145 [facility] Urea nitrogen [Mass/Vol] 15.0 mg/dL 7.0-18.0 [facility] Urea nitrogen/Creatinine [Mass ratio] 14.9 mg/mg [facility] Laboratory - Hematology and Cell countson 06-01-2024 Immature granulocytes/100 WBC (Bld) 0.3 % 0.0-0.5 [facility] Leukocytes [#/volume] correc alma delia for nucleated erythrocytes in Blood by Automated counon 06-01-2024 WBC corrected for nucl RBC Auto (Bld) [#/Vol] Leukocytes [#/volume] corrected for nucleated erythrocytes in Blood by Automated coun 4.0-11.0 [facility] Lymphocytes Auto (Bld) [#/Vo l]on 06-01-2024 Lymphocytes (Bld) [#/Vol] Lymphocytes [#/volume] in Blood by Automated count 1.2-3.8 [facility] Lymphocytes/100 WBC Auto (Bl d)on 06-01-2024 Lymphocytes/100 WBC (Bld) Lymphocytes/100 leukocytes in Blood by Automated count 20.5-60.0 [facility] MCH Auto (RBC) [Entitic mass ]on 06-01-2024 MCH (RBC) [Entitic mass] MCH [Entitic mass] by Automated count 26.7-34.0 [facility] MCHC Auto (RBC) [Mass/Vol]on 06-01-2024 MCHC (RBC) [Mass/Vol] MCHC [Mass/volume] by Automated count 29.9-35.2 [facility] MCV Auto (RBC) [Entitic vol] on 06-01-2024 MCV (RBC) [Entitic vol] MCV [Entitic volume] by Automated count 81.0-99.0 [facility] Monocytes Auto (Bld) [#/Vol] on 06-01-2024 Monocytes (Bld) [#/Vol] Automated blood monocyte count 0.3-0.8 [facility] Monocytes/100 WBC Auto (Bld) on 06-01-2024 Monocytes/100 WBC (Bld) Automated monocyte % 1.7-12.0 [facility] Neutrophils Auto (Bld) [#/Vo l]on 06-01-2024 Neutrophils (Bld) [#/Vol] Neutrophils [#/volume] in Blood by Automated count 1.4-6.5 [facility] Neutrophils/100 WBC Auto (Bl d)on 06-01-2024 Neutrophils/100 WBC (Bld) Automated neutrophil % 43.0-75.0 [facility] No Panel Informationon 06-01 Eosinophils # (Auto) 0.2 10 3/uL 0.0-0.[address] [facility] Immature Granulocyte # (Auto) 0.02 10 3/uL 0.00-0.03 [facility] Platelet mean volume Auto (B ld) [Entitic vol]on 06-01-2024 Platelet mean volume (Bld) [Entitic vol] Platelet mean volume [Entitic volume] in Blood by Automated count 9.5-13.5 [facility] Platelets Auto (Bld) [#/Vol] on 06-01-2024 Platelets (Bld) [#/Vol] Platelets [#/volume] in Blood by Automated count 150-450 [facility] RBC Auto (Bld) [#/Vol]on RBC (Bld) [#/Vol] Erythrocytes [#/volume] in Blood by Automated count 4.20-5.40 [facility] Serum or plasma anion gap de terminationon 06-01-2024 Anion gap [Moles/Vol] Serum or plasma anion gap determination [facility] Basophils Auto (Bld) [#/Vol] on 05-16-2024 Basophils (Bld) [#/Vol] Automated basophil count 0.0-0.1 [facility] Basophils/100 WBC Auto (Bld) on 05-16-2024 Basophils/100 WBC (Bld) Automated basophil % 0.2-2.0 [facility] Eosinophils/100 WBC Auto (Bl d)on 05-16-2024 Eosinophils/100 WBC (Bld) Automated eosinophil % 0.9-7.0 [facility] Erythrocyte distribution wid th Auto (RBC) [Ratio]on 05-16-2024 Erythrocyte distribution width (RBC) [Ratio] Erythrocyte distribution width [Ratio] by Automated count 11.0-15.0 [facility] Estimated glomerular filtrat ion rate (GFR) non- Americanon 05-16-2024 GFR/1.73 sq M.predicted among non-blacks MDRD (S/P/Bld) [Vol rate/Area] Estimated glomerular filtration rate (GFR) non- Low >=60 mL/min/1.73m 2 [facility] Hematocrit Auto (Bld) [Volum e fraction]on 05-16-2024 Hematocrit (Bld) [Volume fraction] Hematocrit [Volume Fraction] of Blood by Automated count 36.0-48.0 [facility] Hemoglobin [Mass/volume] in Bloodon 05-16-2024 Hemoglobin (Bld) [Mass/Vol] Hemoglobin [Mass/volume] in Blood 12.0-16.0 [facility] Laboratory - Chemistry and C hemistry - challengeon 05-16-2024 Calcium [Mass/Vol] 9.1 mg/dL 8.5-10.1 [facility] Chloride [Moles/Vol] 104 mmol/L 98-107 [facility] CO2 [Moles/Vol] 30.6 mmol/L 21.0-32.0 [facility] Creatinine [Mass/Vol] 1.01 mg/dL 0.55-1.02 [facility] GFR/1.73 sq M.predicted MDRD (S/P/Bld) [Vol rate/Area] mL/min/{1.73_m2} >=60 mL/min/1.73m 2 [facility] Glucose [Mass/Vol] 206 mg/dL High 74-106 [facility] Potassium [Moles/Vol] 5.1 mmol/L 3.5-5.1 [facility] Sodium [Moles/Vol] 141 mmol/L 136-145 [facility] Urea nitrogen [Mass/Vol] 12.0 mg/dL 7.0-18.0 [facility] Urea nitrogen/Creatinine [Mass ratio] 11.9 mg/mg [facility] Laboratory - Hematology and Cell countson 05-16-2024 ESR (Bld) [Velocity] 28 mm/h <=30 [facility] Immature granulocytes/100 WBC (Bld) 0.3 % 0.0-0.5 [facility] Leukocytes [#/volume] correc alma delia for nucleated erythrocytes in Blood by Automated counon 05-16-2024 WBC corrected for nucl RBC Auto (Bld) [#/Vol] Leukocytes [#/volume] corrected for nucleated erythrocytes in Blood by Automated coun 4.0-11.0 [facility] Lymphocytes Auto (Bld) [#/Vo l]on 05-16-2024 Lymphocytes (Bld) [#/Vol] Lymphocytes [#/volume] in Blood by Automated count 1.2-3.8 [facility] Lymphocytes/100 WBC Auto (Bl d)on 05-16-2024 Lymphocytes/100 WBC (Bld) Lymphocytes/100 leukocytes in Blood by Automated count 20.5-60.0 [facility] MCH Auto (RBC) [Entitic mass ]on 05-16-2024 MCH (RBC) [Entitic mass] MCH [Entitic mass] by Automated count 26.7-34.0 [facility] MCHC Auto (RBC) [Mass/Vol]on 05-16-2024 MCHC (RBC) [Mass/Vol] MCHC [Mass/volume] by Automated count 29.9-35.2 [facility] MCV Auto (RBC) [Entitic vol] on 05-16-2024 MCV (RBC) [Entitic vol] MCV [Entitic volume] by Automated count 81.0-99.0 [facility] Monocytes Auto (Bld) [#/Vol] on 05-16-2024 Monocytes (Bld) [#/Vol] Automated blood monocyte count 0.3-0.8 [facility] Monocytes/100 WBC Auto (Bld) on 05-16-2024 Monocytes/100 WBC (Bld) Automated monocyte % 1.7-12.0 [facility] Neutrophils Auto (Bld) [#/Vo l]on 05-16-2024 Neutrophils (Bld) [#/Vol] Neutrophils [#/volume] in Blood by Automated count 1.4-6.5 [facility] Neutrophils/100 WBC Auto (Bl d)on 05-16-2024 Neutrophils/100 WBC (Bld) Automated neutrophil % 43.0-75.0 [facility] No Panel Informationon 05-16 C-Reactive Protein, Quantitative 1.26 mg/dL High <=0.50 [facility] Eosinophils # (Auto) 0.3 10 3/uL 0.0-0.[address] [facility] Immature Granulocyte # (Auto) 0.02 10 3/uL 0.00-0.03 [facility] Platelet mean volume Auto (B ld) [Entitic vol]on 05-16-2024 Platelet mean volume (Bld) [Entitic vol] Platelet mean volume [Entitic volume] in Blood by Automated count 9.5-13.5 [facility] Platelets Auto (Bld) [#/Vol] on 05-16-2024 Platelets (Bld) [#/Vol] Platelets [#/volume] in Blood by Automated count 150-450 [facility] RBC Auto (Bld) [#/Vol]on RBC (Bld) [#/Vol] Erythrocytes [#/volume] in Blood by Automated count 4.20-5.40 [facility] Serum or plasma anion gap de terminationon 05-16-2024 Anion gap [Moles/Vol] Serum or plasma anion gap determination [facility] Creatinine [Mass/volume] in UrineOrdered By: Cathie Vargas on 02-23-2024 Creatinine (U) [Mass/Vol] 28.00 mg/dL [facility] Comment on above: No reference range e stablished MicroAlb Creat Ratio,Uon Creatinine, Urine (Random) 28.00 mg/dL Normal [facility] Comment on above: Result Comment: No r eference range established Performed By: #### U RMACRERAT #### [facility] [address] [place] [address] Microalbumin/Creatin ine Ratio Not performed Normal 0.0-30.0 [facility] Comment on above: Result Comment: PERF ORMED BY: [place] [address] PATHOLOGIST [employer]IST RUBINA RICCI M.D. Performed By: #### U RMACRERAT #### [facility] [address] [place] [address] Microalbumin [Mass/volume] i n UrineOrdered By: Cathie Vargas on 02-23-2024 Albumin DL <= 20 mg/L (U) [Mass/Vol] mg/dL Normal 0.0-1.8 [facility] Comment on above: Performed By: #### U RMACRERAT #### [facility] [address] [place] [address] Urine microalbumin/creatinin e mass ratioOrdered By: Ctahie Vargas on 02-23-2024 Albumin/Creatinine DL <= 20 mg/L (U) [Mass ratio] TNP [facility] Comment on above: Test not performed HbA1c HPLC (Bld) [Mass fract ion]on 12-13-2023 HbA1c (Bld) [Mass fraction] 9.9 % [facility] No Panel Informationon 12-12 Bedside Glucose 118 [facility] No Panel Informationon 09-28 Bedside Glucose 278 [facility] HbA1c HPLC (Bld) [Mass fract ion]on 07-28-2023 HbA1c (Bld) [Mass fraction] 10.3 % [facility] No Panel Informationon 07-27 Bedside Glucose 126 [facility] Basophils Auto (Bld) [#/Vol] on 07-12-2023 Basophils (Bld) [#/Vol] 0.0 10 3/uL 0.0-0.1 [facility] Basophils/100 WBC Auto (Bld) on 07-12-2023 Basophils/100 WBC (Bld) 0.5 % 0.2-2.0 [facility] Eosinophils/100 WBC Auto (Bl d)on 07-12-2023 Eosinophils/100 WBC (Bld) 1.5 % 0.9-7.0 [facility] Erythrocyte distribution wid th Auto (RBC) [Ratio]on 07-12-2023 Erythrocyte distribution width (RBC) [Ratio] 12.7 % 11.0-15.0 [facility] Estimated glomerular filtrat ion rate (GFR) non- Americanon 07-12-2023 GFR/1.73 sq M.predicted among non-blacks MDRD (S/P/Bld) [Vol rate/Area] mL/min/{1.73_m2} >=60 [facility] Hematocrit Auto (Bld) [Volum e fraction]on 07-12-2023 Hematocrit (Bld) [Volume fraction] 42.8 % 36.0-48.0 [facility] Hemoglobin [Mass/volume] in Bloodon 07-12-2023 Hemoglobin (Bld) [Mass/Vol] 14.3 g/dL 12.0-16.0 [facility] - Chemistry and C hemistry - challengeon 07-12-2023 Calcium [Mass/Vol] 9.1 mg/dL 8.5-10.1 [facility] Chloride [Moles/Vol] 100 mmol/L 98-107 [facility] CO2 [Moles/Vol] 26.1 mmol/L 21.0-32.0 [facility] Creatinine [Mass/Vol] 0.78 mg/dL 0.55-1.02 [facility] GFR/1.73 sq M.predicted MDRD (S/P/Bld) [Vol rate/Area] mL/min/{1.73_m2} >=60 [facility] Glucose [Mass/Vol] 215 mg/dL 74-106 [facility] Potassium [Moles/Vol] 4.0 mmol/L 3.5-5.1 [facility] Sodium [Moles/Vol] 137 mmol/L 136-145 [facility] Urea nitrogen [Mass/Vol] 12.0 mg/dL 7.0-18.0 [facility] Urea nitrogen/Creatinine [Mass ratio] 15.4 mg/mg [facility] - Hematology and Cell countson 07-12-2023 Immature granulocytes/100 WBC (Bld) 0.1 % 0.0-0.5 [facility] Leukocytes [#/volume] correc alma delia for nucleated erythrocytes in Blood by Automated counon 07-12-2023 WBC corrected for nucl RBC Auto (Bld) [#/Vol] 7.8 10 3/uL 4.0-11.0 [facility] Lymphocytes Auto (Bld) [#/Vo l]on 07-12-2023 Lymphocytes (Bld) [#/Vol] 2.7 10 3/uL 1.2-3.8 [facility] Lymphocytes/100 WBC Auto (Bl d)on 07-12-2023 Lymphocytes/100 WBC (Bld) 34.1 % 20.5-60.0 [facility] MCH Auto (RBC) [Entitic mass ]on 07-12-2023 MCH (RBC) [Entitic mass] 29.2 pg 26.7-34.0 [facility] MCHC Auto (RBC) [Mass/Vol]on 07-12-2023 MCHC (RBC) [Mass/Vol] 33.4 g/dL 29.9-35.2 [facility] MCV Auto (RBC) [Entitic vol] on 07-12-2023 MCV (RBC) [Entitic vol] 87.5 fL 81.0-99.0 [facility] Monocytes Auto (Bld) [#/Vol] on 07-12-2023 Monocytes (Bld) [#/Vol] 0.5 10 3/uL 0.3-0.8 [facility] Monocytes/100 WBC Auto (Bld) on 07-12-2023 Monocytes/100 WBC (Bld) 6.4 % 1.7-12.0 [facility] Neutrophils Auto (Bld) [#/Vo l]on 07-12-2023 Neutrophils (Bld) [#/Vol] 4.5 10 3/uL 1.4-6.5 [facility] Neutrophils/100 WBC Auto (Bl d)on 07-12-2023 Neutrophils/100 WBC (Bld) 57.4 % 43.0-75.0 [facility] No Panel Informationon 07-11 Eosinophils # (Auto) 0.1 10 3/uL 0.0-0.[address] [facility] Immature Granulocyte # (Auto) 0.01 10 3/uL 0.00-0.03 [facility] Platelet mean volume Auto (B ld) [Entitic vol]on 07-12-2023 Platelet mean volume (Bld) [Entitic vol] 10.9 fL 9.5-13.5 [facility] Platelets Auto (Bld) [#/Vol] on 07-12-2023 Platelets (Bld) [#/Vol] 259 10 3/uL 150-450 [facility] RBC Auto (Bld) [#/Vol]on RBC (Bld) [#/Vol] 4.89 10 6/uL 4.20-5.40 [facility] Serum or plasma anion gap de terminationon 07-12-2023 Anion gap [Moles/Vol] 14.9 mmol/L [facility] Glucose - FINGER STICKon Glucose [Mass/Vol] 360 mg/dL [employer] Other CBC AUTO DIFFon 08-27-2022 BASO # 0.0 103/ul Normal 0.0-0.1 [facility] Comment on above: Performed By: #### C BC #### [facility] [address] [place] [address] Dr. Sarah Church Basophils/100 WBC (Bld) 0.5 % Normal 0.2-2.0 [facility] Comment on above: Performed By: #### C BC #### [facility] [address] [place] [address] Dr. Sarah Church EO # 0.2 103/ul Normal 0.0-0.7 [facility] Comment on above: Performed By: #### C BC #### [facility] [address] [place] [address] Dr. Sarah Church Eosinophils/100 WBC (Bld) 2.2 % Normal 0.9-7.0 [facility] Comment on above: Performed By: #### C BC #### [facility] [address] [place] [address] Dr. Sarah Church Erythrocyte distribution width (RBC) [Ratio] 12.5 % Normal 11.0-15.0 [facility] Comment on above: Performed By: #### C BC #### [facility] [address] [place] [address] Dr. Sarah Church Hematocrit (Bld) [Volume fraction] 44.1 % Normal 36.0-48.0 [facility] Comment on above: Performed By: #### C BC #### [facility] [address] [place] [address] Dr. Sarah Church Hemoglobin (Bld) [Mass/Vol] 15.1 g/dL Normal 12.0-16.0 [facility] Comment on above: Performed By: #### C BC #### [facility] [address] [place] [address] Dr. Sarah Church IG # 0.02 10e3/ul Normal 0.00-0.03 [facility] Comment on above: Performed By: #### C BC #### [facility] [address] [place] [address] Dr. Sarah Church IG % 0.2 % Normal 0.0-0.5 [facility] Comment on above: Performed By: #### C BC #### [facility] [address] [place] [address] Dr. Sarah Church LYMPH # 2.9 103/ul Normal 1.2-3.8 [facility] Comment on above: Performed By: #### C BC #### [facility] [address] [place] [address] Dr. Sarah Church Lymphocytes/100 WBC (Bld) 33.4 % Normal 20.5-60.0 [facility] Comment on above: Performed By: #### C BC #### [facility] [address] [place] [address] Dr. Sarah Church MANUAL DIFF REQ NO Normal [facility] Comment on above: Performed By: #### C BC #### [facility] [address] [address] [address] Sarah Church MCH (RBC) [Entitic mass] 29.1 pg Normal 26.7-34.0 [facility] Comment on above: Performed By: #### C BC #### [facility] [address] [address] [address] Sarah Church MCHC (RBC) [Mass/Vol] 34.2 g/dL Normal 29.9-35.2 [facility] Comment on above: Performed By: #### C BC #### [facility] [address] [place] [address] Dr. Sarah Church MCV (RBC) [Entitic vol] 85.0 fL Normal 81.0-99.0 [facility] Comment on above: Performed By: #### C BC #### [facility] [address] [place] [address] Dr. Sarah Church MONO # 0.6 103/ul Normal 0.3-0.8 [facility] Comment on above: Performed By: #### C BC #### [facility] [address] [place] [address] Dr. Sarah Church Monocytes/100 WBC (Bld) 6.8 % Normal 1.7-12.0 [facility] Comment on above: Performed By: #### C BC #### [facility] [address] [place] [address] Dr. Sarah Church NEUT # 4.9 103/ul Normal 1.4-6.5 [facility] Comment on above: Performed By: #### C BC #### [facility] [address] [place] [address] Dr. Sarah Church Neutrophils/100 WBC (Bld) 56.9 % Normal 43.0-75.0 [facility] Comment on above: Performed By: #### C BC #### [facility] [address] [place] [address] Dr. Sarah Church Platelet mean volume (Bld) [Entitic vol] 10.8 fL Normal 9.5-13.5 [facility] Comment on above: Performed By: #### C BC #### [facility] [address] [address] [address] Sarah Church PLT 276 103/ul Normal 150-450 [facility] Comment on above: Performed By: #### C BC #### [facility] [address] [place] [address] Dr. Sarah Church RBC 5.19 106/ul Normal 4.20-5.40 [facility] Comment on above: Performed By: #### C BC #### [facility] [address] [place] [address] Dr. Sarah Church WBC 8.6 103/ul Normal 4.0-11.0 [facility] Comment on above: Performed By: #### C BC #### [facility] [address] [place] [address] Dr. Sarah Church LIPID PROFILEon 08-27-2022 CHOL-HDL RATIO NORM SEE BELOW Normal [facility] Comment on above: Result Comment: 3.3 - 4.4 LOW RISK 4.4 - 7.1 AVERAGE RISK 7.1 - 11.0 MODERATE RISK >11.0 HIGH RISK Performed By: #### L IPID, CMP #### [facility] [address] [place] [address] Dr. Sarah Church Cholesterol [Mass/Vol] 110 mg/dL Normal <=200 [facility] Comment on above: Performed By: #### L IPID, CMP #### [facility] [address] [place] [address] Dr. Sarah Church Cholesterol in HDL [Mass/Vol] 33 mg/dL Critically low 40-60 [facility] Comment on above: Performed By: #### L IPID, CMP #### [facility] [address] [place] [address] Dr. Sarah Church Cholesterol in LDL [Mass/Vol] 58.0 mg/dL Normal [facility] Comment on above: Performed By: #### L IPID, CMP #### [facility] [address] [place] [address] Dr. Sarah Church Cholesterol.total/Ch olesterol in HDL [Mass ratio] 3.3 {ratio} Normal [facility] Comment on above: Performed By: #### L IPID, CMP #### [facility] [address] [address] [address] Sarah Church HDL NORMAL > or = 60 mg/dl - LOW CARDIOVASCULAR RISK <40 mg/dl - HIGH CARDIOVASCULAR RISK Normal [facility] Comment on above: Performed By: #### L IPID, CMP #### [facility] [address] [address] [address] Sarah Church LDL CALC NORMAL SEE BELOW Normal [facility] Comment on above: Result Comment: <100 mg/dl OPTIMAL 100 - 129 mg/dl NEAR OR ABOVE OPTIMAL 130 - 159 mg/dl BORDERLINE HIGH 160 - 189 mg/dl HIGH >190 mg/dl VERY HIGH Performed By: #### L IPID, CMP #### [facility] [address] [address] [address] Sarah Church Triglyceride [Mass/Vol] 95 mg/dL Normal <=150 [facility] Comment on above: Performed By: #### L IPID, CMP #### [facility] [address] [address] [address] Sarah Church VLDL CALC 19.0 mg/dL Normal [facility] Comment on above: Performed By: #### L IPID, CMP #### [facility] [address] [address] [address] Sarah Church PROF 14(COMP METB)on 023 Albumin [Mass/Vol] 3.3 g/dL Critically low 3.4-5.0 [facility] Comment on above: Performed By: #### L IPID, CMP #### [facility] [address] [address] [address] Sarah Church Albumin/Globulin [Mass ratio] 0.8 {ratio} Normal [facility] Comment on above: Performed By: #### L IPID, CMP #### [facility] [address] [address] [address] Sarah Church ALP [Catalytic activity/Vol] 100 U/L Normal 46-116 [facility] Comment on above: Performed By: #### L IPID, CMP #### [facility] [address] [address] [address] Sarah Church ALT [Catalytic activity/Vol] 74 U/L Critically high 14-59 [facility] Comment on above: Performed By: #### L IPID, CMP #### [facility] [address] [address] [address] Sarah Churhc Anion gap [Moles/Vol] 13.2 mmol/L Normal [facility] Comment on above: Performed By: #### L IPID, CMP #### [facility] [address] [address] [address] Sarah Church AST [Catalytic activity/Vol] 42 U/L Critically high 15-37 [facility] Comment on above: Performed By: #### L IPID, CMP #### [facility] [address] [address] [address] Sarah Church Bilirubin [Mass/Vol] 0.4 mg/dL Normal 0.2-1.0 [facility] Comment on above: Performed By: #### L IPID, CMP #### [facility] [address] [address] [address] Sarah Church Calcium [Mass/Vol] 9.2 mg/dL Normal 8.5-10.1 [facility] Comment on above: Performed By: #### L IPID, CMP #### [facility] [address] [address] [address] Sarah Church Chloride [Moles/Vol] 99 mmol/L Normal 98-107 [facility] Comment on above: Performed By: #### L IPID, CMP #### [facility] [address] [address] [address] Sarah Church CO2 [Moles/Vol] 30.4 mmol/L Normal 21.0-32.0 [facility] Comment on above: Performed By: #### L IPID, CMP #### [facility] [address] [address] [address] Sarah Church Creatinine [Mass/Vol] 0.78 mg/dL Normal 0.55-1.02 [facility] Comment on above: Performed By: #### L IPID, CMP #### [facility] [address] [place] [address] Dr. Sarah Church EGFR-AF CITIZ[place] >60 Normal >=60 [facility] Comment on above: Performed By: #### L IPID, CMP #### [facility] [address] [address] [address] Sarah Church EGFR-NON AF CITIZEN OF [place] >60 Normal >=60 [facility] Comment on above: Performed By: #### L IPID, CMP #### [facility] [address] [place] [address] Dr. Sarah Church Globulin (S) [Mass/Vol] 4.0 g/dL Normal [facility] Comment on above: Performed By: #### L IPID, CMP #### [facility] [address] [place] [address] Dr. Sarah Church Glucose [Mass/Vol] 255 mg/dL Critically high 74-106 [facility] Comment on above: Performed By: #### L IPID, CMP #### [facility] [address] [place], [place] [address] Dr. Sarah Church Potassium [Moles/Vol] 3.6 mmol/L Normal 3.5-5.1 [facility] Comment on above: Performed By: #### L IPID, CMP #### [facility] [address] [place] [address] Dr. Sarah Church Protein [Mass/Vol] 7.3 g/dL Normal 6.4-8.2 [facility] Comment on above: Performed By: #### L IPID, CMP #### [facility] [address] [place] [address] Dr. Sarah Church Sodium [Moles/Vol] 139 mmol/L Normal 136-145 [facility] Comment on above: Performed By: #### L IPID, CMP #### [facility] [address] [place] [address] Dr. Sarah Church Urea nitrogen [Mass/Vol] 8.0 mg/dL Normal 7.0-18.0 [facility] Comment on above: Performed By: #### L IPID, CMP #### [facility] [address] [address] [address] Sarah Church Urea nitrogen/Creatinine [Mass ratio] 10.3 mg/mg Normal [facility] Comment on above: Performed By: #### L IPID, CMP #### [facility] [address] [address] [address] Sarah Church MG MAMM SCREEN 3D ROB CADon 07-20-2022 MG MAMM SCREEN 3D ROB CAD Patient: ZOILA RAMOS Exam Date: 07/20/2022 : 1970 Gender:F Ordering : DR SHAYY DELA CRUZ M.D. Admission #: [id number] Family : Order #: [id number] CLICK HERE TO VIEW EXAM RADIOLOGY REPORT PROCEDURE: MAMMOGRAM SCREENING 3D BILATERAL CAD COMPARISON: MAMMO ROB SCREEN W CAD DIG, 05/16/2012. INDICATIONS: Screening mammography Calculator Name NCI Breast Cancer Risk Assessment Tool 5 Year Breast Cancer Risk 1.20% Lifetime Breast Cancer Risk 10.80% Personal Breast Cancer No Personal Ovarian Cancer No Treatments None Family Cancers None LOCATION: [facility] BREAST COMPOSITION: Almost entirely fatty. FINDINGS: [...] M.D. on 07/21/2022 at 08:24 Normal [facility] PROF CHEM 8 (BAS METB)on Anion gap [Moles/Vol] 14.5 mmol/L Normal [facility] Comment on above: Performed By: #### B MP #### [facility] [address] [place], [place] [address] Dr. Sarah Church Calcium [Mass/Vol] 9.8 mg/dL Normal 8.5-10.1 [facility] Comment on above: Performed By: #### B MP #### [facility] [address] [place] [address] Dr. Sarah Church Chloride [Moles/Vol] 99 mmol/L Normal 98-107 [facility] Comment on above: Performed By: #### B MP #### [facility] [address] [place] [address] Dr. Sarah Church CO2 [Moles/Vol] 27.2 mmol/L Normal 21.0-32.0 [facility] Comment on above: Performed By: #### B MP #### [facility] [address] [place] [address] Dr. Sarah Church Creatinine [Mass/Vol] 0.80 mg/dL Normal 0.55-1.02 [facility] Comment on above: Performed By: #### B MP #### [facility] [address] [place] [address] Dr. Sarah Church EGFR-AF CITIZEN [place] >60 Normal >=60 [facility] Comment on above: Performed By: #### B MP #### [facility] [address] [place] [address] Dr. Sarah Church EGFR-NON AF CITIZEN OF [place] >60 Normal >=60 [facility] Comment on above: Performed By: #### B MP #### [facility] [address] [place] [address] Dr. Sarah Church Glucose [Mass/Vol] 458 mg/dL Critically high 74-106 [facility] Comment on above: Performed By: #### B MP #### [facility] [address] [place] [address] Dr. Sarah Church Potassium [Moles/Vol] 4.7 mmol/L Normal 3.5-5.1 [facility] Comment on above: Performed By: #### B MP #### [facility] [address] [place] [address] Dr. Sarah Church Sodium [Moles/Vol] 136 mmol/L Normal 136-145 [facility] Comment on above: Performed By: #### B MP #### [facility] [address] [address] [address] Sarah Church Urea nitrogen [Mass/Vol] 15.0 mg/dL Normal 7.0-18.0 [facility] Comment on above: Performed By: #### B MP #### [facility] [address] [address] [address] Sarah Church Urea nitrogen/Creatinine [Mass ratio] 18.8 mg/mg Normal [facility] Comment on above: Performed By: #### B MP #### [facility] [address] [address] [address] Sarah Church GLYCOHEMOGLOBIN A1Con 2022 ADA RECOMMENDATION SEE BELOW Normal [facility] Comment on above: Result Comment: ADA RECOMMENDED LIMIT 4.0 - 6.0 ADA THERAPEUTIC TARGET < 7.0 ACTION SUGGESTED > 7.0 Performed By: #### A 1C ####[facility] [address] [address]Dr. Sarah Church Glucose [Mass/Vol] 266 mg/dL Normal [facility] Comment on above: Performed By: #### A 1C ####[facility] [address] [address]Dr. Sarah Church HbA1c (Bld) [Mass fraction] 10.9 % Critically high 4.5-6.2 [facility] Comment on above: Performed By: #### A 1C ####[facility] [address] [address]Dr. Sarah Church XR HIP RT 2 3V [...] JAVAD ROB Date: 2022-04-06 21:15 Normal [facility] CBC AUTO DIFFon 11-05-2021 BASO # 0.1 103/ul Normal 0.0-0.1 [facility] Comment on above: Performed By: #### C BC #### [facility] [address] [address] [address] Sarah Church Basophils/100 WBC (Bld) 0.4 % Normal 0.2-2.0 [facility] Comment on above: Performed By: #### C BC #### [facility] [address] [address] [address] Sarah Church EO # 0.2 103/ul Normal 0.0-0.7 [facility] Comment on above: Performed By: #### C BC #### [facility] [address] [address] [address] Sarah Church Eosinophils/100 WBC (Bld) 1.3 % Normal 0.9-7.0 [facility] Comment on above: Performed By: #### C BC #### [facility] [address] [place] [address] Dr. Sarah Church Erythrocyte distribution width (RBC) [Ratio] 12.3 % Normal 11.0-15.0 [facility] Comment on above: Performed By: #### C BC #### [facility] [address] [place] [address] Dr. Sarah Church Hematocrit (Bld) [Volume fraction] 43.1 % Normal 36.0-48.0 [facility] Comment on above: Performed By: #### C BC #### [facility] [address] [place] [address] Dr. Sarah Church Hemoglobin (Bld) [Mass/Vol] 14.6 g/dL Normal 12.0-16.0 [facility] Comment on above: Performed By: #### C BC #### [facility] [address] [address] [address] Sarah Church IG # 0.04 10e3/ul Critically high 0.00-0.03 [facility] Comment on above: Performed By: #### C BC #### [facility] [address] [address] [address] Sarah Church IG % 0.3 % Normal 0.0-0.5 [facility] Comment on above: Performed By: #### C BC #### [facility] [address] [address] [address] Sarah Church LYMPH # 1.6 103/ul Normal 1.2-3.8 [facility] Comment on above: Performed By: #### C BC #### [facility] [address] [address] [address] Sarah Church Lymphocytes/100 WBC (Bld) 12.5 % Critically low 20.5-60.0 [facility] Comment on above: Performed By: #### C BC #### [facility] [address] [address] [address] Sarah Church MANUAL DIFF REQ NO Normal [facility] Comment on above: Performed By: #### C BC #### [facility] [address] [place] [address] Dr. Sarah Church MCH (RBC) [Entitic mass] 29.4 pg Normal 26.7-34.0 [facility] Comment on above: Performed By: #### C BC #### [facility] [address] [place] [address] Dr. Sarah Church MCHC (RBC) [Mass/Vol] 33.9 g/dL Normal 29.9-35.2 [facility] Comment on above: Performed By: #### C BC #### [facility] [address] [place] [address] Dr. Sarah Church MCV (RBC) [Entitic vol] 86.7 fL Normal 81.0-99.0 [facility] Comment on above: Performed By: #### C BC #### [facility] [address] [place] [address] Dr. Sarah Church MONO # 1.0 103/ul Critically high 0.3-0.8 [facility] Comment on above: Performed By: #### C BC #### [facility] [address] [place] [address] Dr. Sarah Church Monocytes/100 WBC (Bld) 7.7 % Normal 1.7-12.0 [facility] Comment on above: Performed By: #### C BC #### [facility] [address] [place], [place] [address] Dr. Sarah Church NEUT # 9.6 103/ul Critically high 1.4-6.5 [facility] Comment on above: Performed By: #### C BC #### [facility] [address] [place], [place] [address] Dr. Sarah Church Neutrophils/100 WBC (Bld) 77.8 % Critically high 43.0-75.0 [facility] Comment on above: Performed By: #### C BC #### [facility] [address] [address] [address] Sarah Church Platelet mean volume (Bld) [Entitic vol] 11.0 fL Normal 9.5-13.5 [facility] Comment on above: Performed By: #### C BC #### [facility] [address] [address] [address] Sarah Church PLT 220 103/ul Normal 150-450 [facility] Comment on above: Performed By: #### C BC #### [facility] [address] [address] [address] Sarah Church RBC 4.97 106/ul Normal 4.20-5.40 [facility] Comment on above: Performed By: #### C BC #### [facility] [address] [address] [address] Sarah Church WBC 12.4 103/ul Critically high 4.0-11.0 [facility] Comment on above: Performed By: #### C BC #### [facility] [id number] Sarah Church GROUP A STREP CULTUREon S. pyogenes Ag Ql (Unsp spec) Culture Observations: NEGATIVE FOR GROUP A STREPTOCOCCUS. Normal [facility] Comment on above: Performed By: #### G RASTCX, SSCRN ####[facility] [address] [place], [place] [address]BvDr. Sarah Church POINT OF CARE GLUCOSEon Glucose [Mass/Vol] 214 mg/dL Critically high 74-106 [facility] Comment on above: Performed By: #### P OCGLUC #### [facility] [address] [address] [address] Sarah Church STREPT SCREENon 11-05-2021 STREP SCREEN A Negative Normal NEGATIVE [facility] Comment on above: Performed By: #### G RASTCX, SSCRN ####[facility] [address] [address]Dr. Sarah Church CBC AUTO DIFFon 10-16-2021 BASO # 0.1 103/ul Normal 0.0-0.1 [facility] Comment on above: Performed By: #### C BC #### [facility] [address] [place] [address] Dr. Sarah Church Basophils/100 WBC (Bld) 0.8 % Normal 0.2-2.0 [facility] Comment on above: Performed By: #### C BC #### [facility] [address] [place] [address] Dr. Sarah Church EO # 0.3 103/ul Normal 0.0-0.7 [facility] Comment on above: Performed By: #### C BC #### [facility] [address] [place] [address] Dr. Sraah Church Eosinophils/100 WBC (Bld) 3.4 % Normal 0.9-7.0 [facility] Comment on above: Performed By: #### C BC #### [facility] [address] [place] [address] Dr. Sarah Church Erythrocyte distribution width (RBC) [Ratio] 12.6 % Normal 11.0-15.0 [facility] Comment on above: Performed By: #### C BC #### [facility] [address] [place] [address] Dr. Sarah Church Hematocrit (Bld) [Volume fraction] 45.4 % Normal 36.0-48.0 [facility] Comment on above: Performed By: #### C BC #### [facility] [address] [place] [address] Dr. Sarah Church Hemoglobin (Bld) [Mass/Vol] 15.0 g/dL Normal 12.0-16.0 [facility] Comment on above: Performed By: #### C BC #### [facility] [address] [place] [address] Dr. Sarah Church IG # 0.02 10e3/ul Normal 0.00-0.03 [facility] Comment on above: Performed By: #### C BC #### [facility] [address] [place] [address] Dr. Sarah Church IG % 0.2 % Normal 0.0-0.5 [facility] Comment on above: Performed By: #### C BC #### [facility] [address] [place] [address] Dr. Sarah Church LYMPH # 2.7 103/ul Normal 1.2-3.8 [facility] Comment on above: Performed By: #### C BC #### [facility] [address] [place] [address] Dr. Sarah Church Lymphocytes/100 WBC (Bld) 31.0 % Normal 20.5-60.0 [facility] Comment on above: Performed By: #### C BC #### [facility] [address] [place] [address] Dr. Sarah Church MANUAL DIFF REQ NO Normal [facility] Comment on above: Performed By: #### C BC #### [facility] [address] [place] [address] Dr. Sarah Church MCH (RBC) [Entitic mass] 29.3 pg Normal 26.7-34.0 [facility] Comment on above: Performed By: #### C BC #### [facility] [address] [place] [address] Dr. Sarah Church MCHC (RBC) [Mass/Vol] 33.0 g/dL Normal 29.9-35.2 [facility] Comment on above: Performed By: #### C BC #### [facility] [address] [place] [address] Dr. Sarah Church MCV (RBC) [Entitic vol] 88.7 fL Normal 81.0-99.0 [facility] Comment on above: Performed By: #### C BC #### [facility] [address] [place] [address] Dr. Sarah Church MONO # 0.6 103/ul Normal 0.3-0.8 [facility] Comment on above: Performed By: #### C BC #### [facility] [address] [place] [address] Dr. Sarah Church Monocytes/100 WBC (Bld) 6.5 % Normal 1.7-12.0 [facility] Comment on above: Performed By: #### C BC #### [facility] [address] [place] [address] Dr. Sarah Church NEUT # 5.0 103/ul Normal 1.4-6.5 [facility] Comment on above: Performed By: #### C BC #### [facility] [address] [place] [address] Dr. Sarah Church Neutrophils/100 WBC (Bld) 58.1 % Normal 43.0-75.0 [facility] Comment on above: Performed By: #### C BC #### [facility] [address] [place] [address] Dr. Sarah Church Platelet mean volume (Bld) [Entitic vol] 11.0 fL Normal 9.5-13.5 [facility] Comment on above: Performed By: #### C BC #### [facility] [address] [place] [address] Dr. Sarah Church PLT 226 103/ul Normal 150-450 [facility] Comment on above: Performed By: #### C BC #### [facility] [address] [place] [address] Dr. Sarah Church RBC 5.12 106/ul Normal 4.20-5.40 [facility] Comment on above: Performed By: #### C BC #### [facility] [address] [place] [address] Dr. Sarah Church WBC 8.6 103/ul Normal 4.0-11.0 [facility] Comment on above: Performed By: #### C BC #### [facility] [address] [place], [place] [address] Dr. Sarah Church GLYCOHEMOGLOBIN A1Con 2021 ADA RECOMMENDATION SEE BELOW Normal [facility] Comment on above: Result Comment: ADA RECOMMENDED LIMIT 4.0 - 6.0 ADA THERAPEUTIC TARGET < 7.0 ACTION SUGGESTED > 7.0 Performed By: #### A 1C ####[facility] [address] [address]Dr. Sarah Church Glucose [Mass/Vol] 275 mg/dL Normal [facility] Comment on above: Performed By: #### A 1C ####[facility] [address] [address]Dr. Sarah Church HbA1c (Bld) [Mass fraction] 11.2 % Critically high 4.5-6.2 [facility] Comment on above: Performed By: #### A 1C ####[facility] [address] [address]Dr. Sarah Church LIPID PROFILEon 10-16-2021 CHOL-HDL RATIO NORM SEE BELOW Normal [facility] Comment on above: Result Comment: 3.3 - 4.4 LOW RISK 4.4 - 7.1 AVERAGE RISK 7.1 - 11.0 MODERATE RISK >11.0 HIGH RISK Performed By: #### L IPID, CMP ####[facility] [address] [address]Dr. Sarah Church Cholesterol [Mass/Vol] 159 mg/dL Normal <=200 [facility] Comment on above: Performed By: #### L IPID, CMP ####[facility] [address] [id number]. Sarah Church Cholesterol in HDL [Mass/Vol] 41 mg/dL Normal 40-60 [facility] Comment on above: Performed By: #### L IPID, CMP ####[facility] [address] [id number]. Sarah Church Cholesterol in LDL [Mass/Vol] 102.6 mg/dL Normal [facility] Comment on above: Performed By: #### L IPID, CMP ####[facility] [address] [id number]. Sarah Church Cholesterol.total/Ch olesterol in HDL [Mass ratio] 3.9 {ratio} Normal [facility] Comment on above: Performed By: #### L IPID, CMP ####[facility] [address] [id number]. Sarah Church HDL NORMAL > or = 60 mg/dl - LOW CARDIOVASCULAR RISK <40 mg/dl - HIGH CARDIOVASCULAR RISK Normal [facility] Comment on above: Performed By: #### L IPID, CMP ####[facility] [address] [address]Dr. Sarah Church LDL CALC NORMAL SEE BELOW Normal [facility] Comment on above: Result Comment: <100 mg/dl OPTIMAL 100 - 129 mg/dl NEAR OR ABOVE OPTIMAL 130 - 159 mg/dl BORDERLINE HIGH 160 - 189 mg/dl HIGH >190 mg/dl VERY HIGH Performed By: #### L IPID, CMP ####[facility] [address] [id number]. Sarah Church Triglyceride [Mass/Vol] 77 mg/dL Normal <=150 [facility] Comment on above: Performed By: #### L IPID, CMP ####[facility] [address] [id number]. Sarah Church VLDL CALC 15.4 mg/dL Normal [facility] Comment on above: Performed By: #### L IPID, CMP ####[facility] [address] [id number]. Sarah Church MICROALBUMIN, RAND URon 09-30 mALB 2.0 mg/L Normal <=30.0 [facility] Comment on above: Performed By: #### M ALBR #### [facility] [id number] Sarah Church PROF 14(COMP METB)on 022 Albumin [Mass/Vol] 3.5 g/dL Normal 3.4-5.0 [facility] Comment on above: Performed By: #### L IPID, CMP ####[facility] [address] [address]Dr. Sarah Church Albumin/Globulin [Mass ratio] 0.8 {ratio} Normal [facility] Comment on above: Performed By: #### L IPID, CMP ####[facility] [address] [address]Dr. Sarah Church ALP [Catalytic activity/Vol] 85 U/L Normal 46-116 [facility] Comment on above: Performed By: #### L IPID, CMP ####[facility] [address] [address]Dr. Sarah Church ALT [Catalytic activity/Vol] 59 U/L Normal 14-59 [facility] Comment on above: Performed By: #### L IPID, CMP ####[facility] [address] [address]Dr. Sarah Church Anion gap [Moles/Vol] 15.1 mmol/L Normal [facility] Comment on above: Performed By: #### L IPID, CMP ####[facility] [address] [place], [place] [address]Dr. Sarah Church AST [Catalytic activity/Vol] 32 U/L Normal 15-37 [facility] Comment on above: Performed By: #### L IPID, CMP ####[facility] [address] [address]Dr. Sarah Church Bilirubin [Mass/Vol] 0.4 mg/dL Normal 0.2-1.0 [facility] Comment on above: Performed By: #### L IPID, CMP ####[facility] [address] [address]Dr. Sarah Church Calcium [Mass/Vol] 9.0 mg/dL Normal 8.5-10.1 [facility] Comment on above: Performed By: #### L IPID, CMP ####[facility] [address] [place], [place] [address]Dr. Sarah Church Chloride [Moles/Vol] 102 mmol/L Normal 98-107 [facility] Comment on above: Performed By: #### L IPID, CMP ####[facility] [address] [id number]. Sarah Church CO2 [Moles/Vol] 30.2 mmol/L Normal 21.0-32.0 [facility] Comment on above: Performed By: #### L IPID, CMP ####[facility] [address] [id number]. Sarah Church Creatinine [Mass/Vol] 0.81 mg/dL Normal 0.55-1.02 [facility] Comment on above: Performed By: #### L IPID, CMP ####[facility] [address] [address]Dr. Sarah Church EGFR-AF CITIZ[place] OF [place] >60 Normal >=60 [facility] Comment on above: Performed By: #### L IPID, CMP ####[facility] [address] [place], [place] [address]Dr. Sarah Ranjit EGFR-NON AF CITIZEN OF [place] >60 Normal >=60 [facility] Comment on above: Performed By: #### L IPID, CMP ####[facility] [address] [id number]. Sarah Church Globulin (S) [Mass/Vol] 3.9 g/dL Normal [facility] Comment on above: Performed By: #### L IPID, CMP ####[facility] [address] [address]Dr. Sarah Church Glucose [Mass/Vol] 218 mg/dL Critically high 74-106 [facility] Comment on above: Performed By: #### L IPID, CMP ####[facility] [address] [id number]. Sarah Church Potassium [Moles/Vol] 4.3 mmol/L Normal 3.5-5.1 [facility] Comment on above: Performed By: #### L IPID, CMP ####[facility] [address] [id number]. Sarah Ranjit Protein [Mass/Vol] 7.4 g/dL Normal 6.4-8.2 [facility] Comment on above: Performed By: #### L IPID, CMP ####[facility] [address] [id number]. Sarah Church Sodium [Moles/Vol] 143 mmol/L Normal 136-145 [facility] Comment on above: Performed By: #### L IPID, CMP ####[facility] [address] [id number]. Sarah Church Urea nitrogen [Mass/Vol] 14.0 mg/dL Normal 7.0-18.0 [facility] Comment on above: Performed By: #### L IPID, CMP ####[facility] [address] [id number]. Sarah Church Urea nitrogen/Creatinine [Mass ratio] 17.2 mg/mg Normal [facility] Comment on above: Performed By: #### L IPID, CMP ####[facility] [address] [id number]. Sarah Church Vital Signs Date Time Vital Sign Value Performing Clinician Facility 08-07-2024 13:090400 Body height 157.48 cm Shayy Dela Cruz MD Work Phone: [facility] 08-07-2024 13:09-0400 Heart rate 85 /min Shayy Dela Cruz MD Work Phone: [facility] 08-07-2024 13:09-0400 Respiratory rate 18 /min Shayy Dela Cruz MD Work Phone: [facility] 08-07-2024 13:09-0400 SaO2% (BldA) [Mass fraction] 96 % Shayy Dela Cruz MD Work Phone: [facility] 06-14-2024 10:050 Body height 157.5 cm Nacho Patiño MD Work Phone: [facility] 06-14-2024 10:050 Body mass index (BMI) [Ratio] 38.59 kg/m2 Nacho Patiño MD Work Phone: [facility] 06-14-2024 10:21-0500 Body temperature 97.3 [degF] Nacho Patiño MD Work Phone: [facility] 06-14-2024 10:21-0500 Body weight 95.71 kg Nacho Patiño MD Work Phone: [facility] 06-14-2024 10:21-0500 Diastolic blood pressure 82 mm[Hg] Nacho Patiño MD Work Phone: [facility] 06-14-2024 10:21-0500 Heart rate 88 /min Nacho Patiño MD Work Phone: [facility] 06-14-2024 10:21-0500 SaO2% (BldA) [Mass fraction] 97 % Nacho Patiño MD Work Phone: [facility] 06-14-2024 10:21-0500 Systolic blood pressure 136 mm[Hg] Nacho Patiño MD Work Phone: [facility] 05-30-2024 10:48-0500 Body height 157.48 cm [facility] 05-30-2024 10:48-0500 Body mass index (BMI) [Ratio] 38.5 kg/m2 [facility] 05-30-2024 10:48-0500 Body weight 95.7 kg [facility] 05-30-2024 10:48-0500 Diastolic blood pressure 77 mm[Hg] [facility] 05-30-2024 10:48-0500 Heart rate 80 /min [facility] 05-30-2024 10:48-0500 Systolic blood pressure 133 mm[Hg] [facility] 02-23-2024 13:23-0400 Body height 157.48 cm [facility] 02-23-2024 13:23-0400 Body mass index (BMI) [Ratio] 38 kg/m2 [facility] 02-23-2024 13:23-0400 Body weight 94.37 kg [facility] 02-23-2024 13:23-0400 Diastolic blood pressure 78 mm[Hg] [facility] 02-23-2024 13:23-0400 Heart rate 75 /min [facility] 02-23-2024 13:23-0400 Respiratory rate 18 /min [facility] 02-23-2024 13:23-0400 SaO2% (BldA) [Mass fraction] 97 % [facility] 02-23-2024 13:23-0400 Systolic blood pressure 170 mm[Hg] [facility] 12-13-2023 13:03-0400 Body height 157.48 cm [facility] 12-13-2023 13:03-0400 Body mass index (BMI) [Ratio] 37.1 kg/m2 [facility] 12-13-2023 13:03-0400 Body weight 92.07 kg [facility] 12-13-2023 13:03-0400 Diastolic blood pressure 86 mm[Hg] [facility] 12-13-2023 13:03-0400 Heart rate 78 /min [facility] 12-13-2023 13:03-0400 Respiratory rate 18 /min [facility] 12-13-2023 13:03-0400 SaO2% (BldA) [Mass fraction] 96 % [facility] 12-13-2023 13:03-0400 Systolic blood pressure 153 mm[Hg] [facility] 12-05-2023 11:24-0400 Body height 157.48 cm [facility] 12-05-2023 11:24-0400 Body mass index (BMI) [Ratio] 36.9 kg/m2 [facility] 12-05-2023 11:24-0400 Body weight 91.62 kg [facility] 12-05-2023 11:24-0400 Diastolic blood pressure 75 mm[Hg] [facility] 12-05-2023 11:24-0400 Heart rate 80 /min [facility] 12-05-2023 11:24-0400 Systolic blood pressure 133 mm[Hg] [facility] 09-29-2023 13:44-0400 Diastolic blood pressure 76 mm[Hg] [facility] 09-29-2023 13:44-0400 Systolic blood pressure 130 mm[Hg] [facility] 09-29-2023 13:19-0400 Body height 157.48 cm [facility] 09-29-2023 13:19-0400 Body mass index (BMI) [Ratio] 38.7 kg/m2 [facility] 09-29-2023 13:19-0400 Body weight 95.9 kg [facility] 09-29-2023 13:19-0400 Heart rate 89 /min [facility] 09-29-2023 13:19-0400 Respiratory rate 18 /min [facility] 09-29-2023 13:19-0400 SaO2% (BldA) [Mass fraction] 98 % [facility] 09-06-2023 11:08-0400 Body height 157.48 cm [facility] 09-06-2023 11:08-0400 Body mass index (BMI) [Ratio] 37.6 kg/m2 [facility] 09-06-2023 11:08-0400 Body weight 93.44 kg [facility] 09-06-2023 11:08-0400 Diastolic blood pressure 72 mm[Hg] [facility] 09-06-2023 11:08-0400 Heart rate 89 /min [facility] 09-06-2023 11:08-0400 Systolic blood pressure 127 mm[Hg] [facility] 08-24-2023 15:08-0400 Body height 157.48 cm [facility] 08-24-2023 15:08-0400 Body mass index (BMI) [Ratio] 37.5 kg/m2 [facility] 08-24-2023 15:08-0400 Body weight 93.21 kg [facility] 08-19-2023 10:43-0400 Body height 157.48 cm MD Shayy Dela Cruz Work Phone: [facility] 08-19-2023 10:43-0400 Body mass index (BMI) [Ratio] 37.5 kg/m2 MD Shayy Dela Cruz Work Phone: [facility] 08-19-2023 10:43-0400 Body weight 93.09 kg MD Shayy Dela Cruz Work Phone: [facility] 08-19-2023 10:43-0400 Diastolic blood pressure 79 mm[Hg] MD Shayy Dela Cruz Work Phone: [facility] 08-19-2023 10:43-0400 Heart rate 83 /min MD Shayy Dela Cruz Work Phone: [facility] 08-19-2023 10:43-0400 Systolic blood pressure 135 mm[Hg] MD Shayy Dela Cruz Work Phone: [facility] 07-28-2023 14:22-0400 Body height 157.48 cm MD Shayy Dela Cruz Work Phone: [facility] 07-28-2023 14:22-0400 Body mass index (BMI) [Ratio] 37.6 kg/m2 MD Shayy Dela Cruz Work Phone: [facility] 07-28-2023 14:22-0400 Body weight 93.44 kg MD Shayy Dela Cruz Work Phone: [facility] 07-28-2023 14:22-0400 Diastolic blood pressure 84 mm[Hg] MD Shayy Dela Cruz Work Phone: [facility] 07-28-2023 14:22-0400 Heart rate 83 /min MD Shayy Dela Cruz Work Phone: [facility] 07-28-2023 14:22-0400 Respiratory rate 18 /min MD Shayy Dela Cruz Work Phone: [facility] 07-28-2023 14:22-0400 SaO2% (BldA) [Mass fraction] 97 % MD Shayy Dela Cruz Work Phone: [facility] 07-28-2023 14:22-0400 Systolic blood pressure 140 mm[Hg] MD Shayy Dela Cruz Work Phone: [facility] 07-19-2023 10:57-0400 Body height 157.48 cm MD Shayy Dela Cruz Work Phone: [facility] 07-19-2023 10:57-0400 Body mass index (BMI) [Ratio] 37.1 kg/m2 MD Shayy Dela Cruz Work Phone: [facility] 07-19-2023 10:57-0400 Body weight 92.07 kg MD Shayy Dela Cruz Work Phone: [facility] 07-19-2023 10:57-0400 Diastolic blood pressure 68 mm[Hg] MD Shayy Dela Cruz Work Phone: [facility] 07-19-2023 10:57-0400 Heart rate 89 /min MD Shayy Dela Cruz Work Phone: [facility] 07-19-2023 10:57-0400 Systolic blood pressure 132 mm[Hg] MD Shayy Dela Cruz Work Phone: [facility] 05-25-2023 11:00-0500 Body height 157.48 cm Cathie Scally Other [facility] 05-25-2023 11:00-0500 Body mass index (BMI) [Ratio] 37.23 kg/m2 Cathie Scally Other [facility] Other 05-25-2023 11:00-0500 Body weight 92.35 kg Cathie Scally Other [facility] 05-25-2023 11:00-0500 Diastolic blood pressure 71 mm[Hg] Cathie Scally Other [facility] 05-25-2023 11:00-0500 Respiratory rate 18 /min Cathie Scally Other [facility] Other 05-25-2023 11:00-0500 SaO2% (BldA) [Mass fraction] 95 % Cathie Scally Other [facility] Other 05-25-2023 11:00-0500 Systolic blood pressure 139 mm[Hg] Cathie Scally Other [facility] 04-15-2023 11:00-0500 Body height 157.48 cm hSayy Dela Cruz Other [facility] 04-15-2023 11:00-0500 Body mass index (BMI) [Ratio] 37.49 kg/m2 Shayy Dela Cruz Other [facility] Other 04-15-2023 11:00-0500 Body weight 92.99 kg Shayy Dela Cruz Other [facility] Other 04-15-2023 11:00-0500 Body weight 92.98 kg MD Shayy Dela Cruz Work Phone: [facility] 04-15-2023 11:00-0500 Diastolic blood pressure 84 mm[Hg] Shayy Dela Cruz Other [facility] 04-15-2023 11:00-0500 Systolic blood pressure 142 mm[Hg] Shayy Dela Cruz Other [facility] 06-22-2022 13:30-0500 Body height 157.48 cm Shayy Dela Cruz Other [employer] Other 06-22-2022 13:30-0500 Body mass index (BMI) [Ratio] 36.94 kg/m2 Shayy Dela Cruz Other [employer] Other 06-22-2022 13:30-0500 Body weight 91.63 kg Shayy Dela Cruz Other [employer] Other 06-22-2022 13:30-0500 Diastolic blood pressure 74 mm[Hg] Shayy Dela Cruz Other [employer] Other 06-22-2022 13:30-0500 SaO2% (BldA) [Mass fraction] 97 % Shayy Dela Cruz Other [employer] Other 06-22-2022 13:30-0500 Systolic blood pressure 112 mm[Hg] Shayy Dela Cruz Other [facility] Other Encounters Encounter Date Encounter Type Care Provider Facility Start: 08-07-2024 End: 08-07-2024 ambulatory Shayy Dela Cruz MD Work Phone: [facility] Work Phone: Start: 08-07-2024 End: 08-07-2024 Patient encounter procedure Shayy Dela Cruz MD Work Phone: [facility] Work Phone: Start: 07-19-2024 Non-patient / Non-visit Shayy Dela Cruz MD Work Phone: [facility] Work Phone: Start: 07-05-2024 End: 07-05-2024 ambulatory Shayy Dela Cruz MD Work Phone: [facility] Work Phone: Start: 07-05-2024 End: 07-05-2024 Departed Referred Shayy Dela Cruz MD Work Phone: [facility] Start: 06-21-2024 Non-patient / Non-visit Shayy Dela Cruz MD Work Phone: [facility] Work Phone: Start: 06-20-2024 Non-patient / Non-visit Shayy Dela Cruz MD Work Phone: [facility] Work Phone: Start: 06-19-2024 End: 06-19-[address] 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) Start: 06-14-2024 End: 06-14-2024 ambulatory NACHO PATIÑO [facility] Start: 06-13-2024 Non-patient / Non-visit Shayy Dela Cruz MD Work Phone: [facility] Work Phone: Start: 06-12-2024 Non-patient / Non-visit Shayy Dela Cruz MD Work Phone: [facility] Work Phone: Start: 06-07-2024 Non-patient / Non-visit Shayy Dela Cruz MD Work Phone: [facility] Work Phone: Start: 06-01-2024 Non-patient / Non-visit Shayy Dela Cruz MD Work Phone: [facility] Work Phone: Start: 05-30-2024 Patient encounter status Shayy Dela Cruz MD Work Phone: [facility] Start: 05-30-2024 End: 05-30-2024 ambulatory [facility] Work Phone: Start: 05-30-2024 End: 05-30-2024 Encounter for general adult medical examination without abnormal findings Shayy Dela Cruz MD Work Phone: [facility] Start: 05-30-2024 End: 05-30-2024 Patient encounter procedure [facility] Work Phone: Start: 05-24-2024 End: 05-24-2024 ambulatory [facility] Work Phone: Start: 05-24-2024 End: 05-24-2024 Patient encounter procedure [facility] Work Phone: Start: 05-16-2024 Non-patient / Non-visit [facility] Work Phone: Start: 05-07-2024 Non-patient / Non-visit [facility] Work Phone: Start: 04-19-2024 End: 04-19-2024 Patient encounter procedure [facility] Work Phone: Start: 02-28-2024 Non-patient / Non-visit [facility] Work Phone: Start: 02-23-2024 End: 02-23-2024 [facility] Start: 02-23-2024 End: 02-23-2024 Patient encounter procedure FIELD EDUCATION DIRECTOR Cathie Angulo Work Phone: [facility] Work Phone: Start: 02-23-2024 End: 02-23-2024 ambulatory [facility] Work Phone: Start: 02-23-2024 End: 02-23-2024 Patient encounter procedure [facility] Work Phone: Start: 01-17-2024 End: 01-17-2024 ambulatory [facility] Work Phone: Start: 01-17-2024 End: 01-17-2024 Patient encounter procedure [facility] Work Phone: Start: 12-13-2023 End: 12-13-2023 ambulatory [facility] Work Phone: Start: 12-13-2023 End: 12-13-2023 Patient encounter procedure [facility] Work Phone: Start: 12-05-2023 End: 12-05-2023 ambulatory [facility] Work Phone: Start: 12-05-2023 End: 12-05-2023 Patient encounter procedure [facility] Work Phone: Start: 11-07-2023 End: 11-07-2023 ambulatory [facility] Work Phone: Start: 11-07-2023 End: 11-07-2023 Patient encounter procedure [facility] Work Phone: Start: 09-29-2023 End: 09-29-2023 ambulatory [facility] Work Phone: Start: 09-29-2023 End: 09-29-2023 Patient encounter procedure [facility] Work Phone: Start: 09-06-2023 End: 09-06-2023 ambulatory [facility] Work Phone: Start: 09-06-2023 End: 09-06-2023 Patient encounter procedure [facility] Work Phone: Start: 08-24-2023 End: 08-24-2023 ambulatory [facility] Work Phone: Start: 08-24-2023 End: 08-24-2023 Patient encounter procedure [facility] Work Phone: Start: 08-19-2023 End: 08-19-2023 ambulatory MD Shayy Dela Cruz Work Phone: [facility] Work Phone: Start: 08-19-2023 End: 08-19-2023 Patient encounter procedure MD Shayy Dela Cruz Work Phone: [facility] Work Phone: Start: 07-28-2023 End: 07-28-2023 ambulatory MD Shayy Dela Cruz Work Phone: [facility] Work Phone: Start: 07-28-2023 End: 07-28-2023 Patient encounter procedure MD Shayy Dela Cruz Work Phone: [facility] Work Phone: Start: 07-19-2023 End: 07-19-2023 ambulatory MD Shayy Dela Cruz Work Phone: [facility] Work Phone: Start: 07-19-2023 End: 07-19-2023 Patient encounter procedure MD Shayy Dela Cruz Work Phone: [facility] Work Phone: Start: 07-12-2023 Non-patient / Non-visit MD Qi Dela Cruz Work Phone: [facility] Work Phone: Start: 06-14-2023 End: 06-14-2023 ambulatory MD Shayy Dela Cruz Work Phone: [facility] Work Phone: Start: 06-14-2023 End: 06-14-2023 Patient encounter procedure MD Shayy Dela Cruz Work Phone: [facility] Work Phone: Start: 06-06-2023 End: 06-06-2023 ambulatory Shayy Dela Cruz Other [employer] Other Start: 06-06-2023 Telephone encounter Shayy Dela Cruz [facility] Start: 05-25-2023 FQHC visit new patient Cathie Sheikh y [facility] Start: 05-25-2023 End: 05-25-2023 ambulatory MD Shayy Dela Cruz Work Phone: [facility] Other Start: 05-25-2023 End: 05-25-2023 Discharged Recurring MD Shayy Dela Cruz Work Phone: [facility] Work Phone: Start: 05-25-2023 Registered Recurring MD [facility] Work Phone: Start: 05-25-2023 End: 05-25-2023 Patient encounter procedure MD Shayy Dela Cruz Work Phone: [facility]- Start: 05-12-2023 End: 05-12-2023 ambulatory Shayy Dela Cruz Other [employer] Other Start: 05-12-2023 Telephone encounter Shayy Dela Cruz [facility] Start: 05-10-2023 End: 05-10-2023 ambulatory Shayy Dela Cruz Other [employer] Other Start: 05-10-2023 Telephone encounter Shayy Dela Cruz [facility] Start: 04-22-2023 End: 04-22-2023 ambulatory Shayy Dela Cruz Other [employer] Other Start: 04-22-2023 Telephone encounter Shayy Dela Cruz [facility] Start: 04-20-2023 End: 04-20-2023 ambulatory Lynne Austint Other [employer] Other Start: 04-20-2023 Telephone encounter Lynne Fitt [facility] Start: 04-18-2023 End: 04-18-2023 ambulatory Lynne Austint Other [employer] Other Start: 04-18-2023 Telephone encounter Lynne Austint [facility] Start: 04-15-2023 End: 04-15-2023 ambulatory Shayy Dlea Cruz Other [employer] Other Start: 04-15-2023 Office outpatient vi sit 15 minutes Shayy Dela Cruz [facility] Start: 04-15-2023 End: 04-15-2023 Patient encounter procedure MD Shayy Dela Cruz Work Phone: [facility] Work Phone: Start: 04-06-2023 End: 04-06-2023 ambulatory Shayy Dela Cruz Other [employer] Other Start: 04-06-2023 Telephone encounter Shayy Dela Cruz [facility] Start: 02-25-2023 End: 02-25-2023 ambulatory Shayy Dela Cruz Other [employer] Other Start: 02-25-2023 Telephone encounter Shayy Dela Cruz [facility] Start: 10-29-2022 End: 10-29-2022 ambulatory Shayy Dela Cruz Other [employer] Other Start: 10-29-2022 Telephone encounter Shayy Dela Cruz [facility] Start: 08-27-2022 End: 08-28-[address] SHAYY DELA CRUZ Facility:[facility] Start: 07-20-2022 End: 07-21-[address] SHAYY DELA CRUZ Facility:[facility] Start: 07-19-2022 End: 07-19-2022 ambulatory Shayy Dela Cruz Other [employer] Other Start: 07-19-2022 Telephone encounter Shayy Dela Cruz [facility] Start: 07-12-2022 End: 07-13-[address] SHAYY DELA CRUZ Facility:[facility] Start: 07-05-2022 End: 07-05-2022 ambulatory Shayy Dela Cruz Other [employer] Other Start: 07-05-2022 Telephone encounter Shayy Dela Cruz [facility] Start: 06-28-2022 End: 06-28-2022 ambulatory Shayy Dela Cruz Other [employer] Other Start: 06-28-2022 Telephone encounter Shayy Dela Cruz [facility] Start: 06-22-2022 End: 06-22-2022 ambulatory Shayy Dela Cruz Other [employer] Other Start: 06-22-2022 Office outpatient vi sit 15 minutes Shayy Dela Cruz [facility] Start: 05-27-2022 End: 05-27-2022 ambulatory Shayy Dela Cruz Other [facility] Other Start: 05-27-2022 Telephone encounter Shayy Dela Cruz [facility] Start: 05-19-2022 End: 05-20-[address] [...] Procedures Date Procedure Procedure Detail Performing Clinician History of amputatio n of lesser toe H/O amputation of lesser toe Shayy Dela Cruz MD Work Phone: Comment on above: left foot Plan of Treatment Date Care Activity Detail Author Start: 01-01-2024 Influenza vaccination Influenza Vaccine [facility] Start: 01-15-2022 Administration of varicella zoster vaccine Zoster (Shingles) Vaccine (1 of 2) [facility] Start: 01-15-1993 Screening for malignant neoplasm [facility] cervix [facility] Start: 01-15-1991 DTaP,Tdap and Td Vaccines (1 - Tdap) DTaP,Tdap and Td Vaccines (1 - Tdap) [facility] Start: 01-15-1990 Adult BMI Screening [facility] Start: 1984 Depression Screening Depression Screening [facility] Start: 1984 Tobacco Screening Tobacco Screening [facility] Comprehensive metabo lic 2000 panel - Serum or Plasma [facility] MG Breast - bilatera l Screening [facility] Immunizations Immunization Date Immunization Notes Care Provider Fa melinda 02-01-2022 influenza virus vaccine, split virus (incl. purified surface antigen) Shayy Dela Cruz Other [employer] Other 02-01-2022 influenza virus vaccine, unspecified formulation MD Shayy Dela Cruz Work Phone: [facility] Payers Date Payer Category Payer Medicare HMO ANTH MEDICARE [id number] 2017 Medicaid MEDICAID [facility] [id number] 2017 Unknown [id number] 1972 Unknown [id number] 1972 Unknown [id number] 1972 Unknown [id number] 1972 Unknown [id number] 1972 Unknown [id number] 1972 Unknown [id number] 1972 Unknown [id number] 1972 Unknown [id number] 1972 Unknown [id number] 1972 Unknown [id number] 1957 Medicaid [id number] 1957 Medicare [id number] Medicare Medicare [id number] Unknown Social History Date Type Detail Facility Unknown if ever smoked [facility] Other Start: 06-14-2024 Sex Assigned At [employer] Other Start: 1970 Sex Assigned At Female [facility] Start: 07-19-2023 End: 05-25-2024 Tobacco smoking status NHIS Never smoked tobacco (finding) [facility] Start: 05-24-2024 End: 08-07-2024 Sex Female (finding) [facility] Start: 06-14-2024 Tobacco use and exposure Smokeless tobacco non-user [facility] Start: 06-14-2024 Alcoholic beverage intake Lifetime non-drinker (finding) [facility] Start: 06-14-2024 History of Social function [facility] Within the past 12 months we worried whether our food would run out before we got money to buy more. Never True [facility] Start: 1970 Sex assigned at Not on file [facility] NEGATED: Highlighted row [facility] Medical Equipment Procedure Code Equipment Code Equipment [...] misc Start: 12-23-2023 Pen Needle, Diab etic 31 gauge x 3/16 needle Start: 08-02-2024 Blood Sugar Diagnostic (Onetouch Verio Test Strips) strip Start: 12-23-2023 End: 12-23-2023 Lancets misc Start: 12-23-2023 End: 12-23-2023 Pen Needle, Diab etic (Bd Ultra-Fine Mini Pen Needle) 31 gauge x 3/16 needle Start: 08-23-2023 End: 08-02-2024 Pen Needle, Diab etic (Bd Ultra-Fine Mini [...] for 06/21/[address] Bruce at [facility]. She had EKG, CXR, and labs today. [...] for 06/21/[address] Bruce at [facility]. She had EKG, CXR, and labs today. [...] Active Problem List Diagnosis Coronary arteriosclerosis in grindstone artery Old myocardial infarction Sinusitis Type 1 [...] is normal sized. (more content not included)... [facility] 06-14-2024 Evaluation + Plan note Associated Problem(s): Gangrene of toe of left foot ([facility]) Osteomyelitis and gangrenous changes of the left second and third and may be the fourth toe.She has normal PVR with toe pressure and normal HIEU and toe pressure index.I discussed with her that there is no VASc intervention needed at this time. She needs his aggressive blood sugar control IV antibiotics likely toe amputation by podiatry and risk factors modification. [facility] 06-14-2024 Miscellaneous Notes Associated Problem(s): Gangrene of toe of left foot ([facility]) Osteomyelitis and gangrenous changes of the left [...] risk factors modification. documented in this encounter [facility] 06-14-2024 History of Presen t [...] Past Medical History: Diagnosis Date Diabetes mellitus ([facility]) Past Surgical History: No past surgical history [...] Interpersonal Safety: Unknown (06/23/2023) Received from [facility] Fear of Current [...] Nacho Patiño MD, SELMA, RPVI, FSVS, FACS [facility] This note was created with the assistance of a speech recognition program. While intending to generate a timely document that accurately reflects the content of the visit, no guarantee can be provided that every grammatical or spelling mistake has been or will be identified or corrected. Thank you for your understanding. documented in this encounter [facility] 05-24-2024 Evaluation note Diagnosis Onset Date Resolution Type 2 diabetes mellitus acute May 24, 2024 12:54pm Colon cancer screening acute Chente barragan 2024 10:42am Long-term insulin use acute Nic gloria 2024 10:42am Type 2 diabetes mellitus acute May 30, 2024 10:42am Wellness examination acute Geovanny pacheco 2024 10:42am BMI 37.0-37.9, adult acute 2024 1:05pm Dietary counseling and surveillance acute August 07, 2024 1:05pm History of myocardial infarction acute August 07, 2024 1:05pm HTN (hypertension) acute August 07, 2024 1:05pm Hyperlipidemia acute August 07, 2024 1:05pm Long-term insulin use acute Jul 1:05pm Type 2 diabetes mellitus acute August 07, 2024 1:05pm Vitamin D deficiency acute 2024 1:05pm [facility] Work Phone: 1(222) 419-981112-19-2024 Evaluation note* Diagnosis Onset Date Resolution Status Admit Date Type 2 diabetes mellitus acute April 19, 2024 2:03pm [facility] Work Phone: 1(309) 599-556512-19-2024 Evaluation note* Diagnosis Onset Date Resolution Status Admit Date Type 2 diabetes mellitus acute April 19, 2024 2:03pm Type 2 diabetes mellitus acute May 24, 2024 12:54pm [facility] Work Phone: 1(594) 675-934112-19-2024 Evaluation note* Diagnosis Onset Date Resolution Status Admit Date Type 2 diabetes mellitus acute April 19, 2024 2:03pm Type 2 diabetes mellitus acute May 24, 2024 12:54pm Colon cancer screening acute Chente barragan 2024 10:42am Long-term insulin use acute Nic gloria 2024 10:42am Type 2 diabetes mellitus acute May 30, 2024 10:42am Wellness examination acute Geovanny pacheco 2024 10:42am [facility] Work Phone: 1(989) 916-828902-05-2024 Evaluation note* Encounter Date Diagnosis Assessment Notes Treatment Notes Treatment Clinical Notes Jun, Controlled type 2 diabetes mellitus with hyperglycemia, unspecified whether senior care insulin use (ICD-10 - E11.65) [facility] Other 01-24-2024 Evaluation note* Encounter Date Diagnosis [...] issues. 6. Prescriptions: New patient 05-25-2023 uses [facility]. May, Vitamin D deficiency (ICD-10 - E55.9) [...] sensor sample and an [employer]. She was taught how to use the [...] educating the patient by Nguyễn Norwood RN, [facility]. [employer] Other 12-15-2023 Evaluation note* Encounter Date Diagnosis Assessment Notes Treatment Notes Treatment Clinical Notes Apr, Type 2 diabetes mellitus with hyperglycemia (ICD-10 - E11.65) Rx handwritten for diabetic shoes. Pt agrees to referral to specialty clinic. Continue present meds and discussed healthy diet in meantime. Apr, retirement (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 of insulin (ICD-10 - Z79.4) [employer] Other 02-21-2023 Evaluation note* Encounter Date Diagnosis Assessment Notes Treatment Notes Treatment Clinical Notes Jun, Acute non-recurrent maxillary sinusitis (ICD-10 - J01.00) Jun, Controlled type 2 diabetes mellitus with hyperglycemia, unspecified whether watermaster insulin use (ICD-10 - E11.65) Once again advised management at diabetes clinic. She declines and will continue meds, followup in 3 months, and recheck labs at that time. She is eating more of a keto diet and is certain that is helping her A1C improve. Jun, Screening mammogram for breast cancer (ICD-10 - Z12.31) Zoila will call for an appt [employer] Other [id number] NotePROCEDURE: XR FOOT LT MIN 3 VIEWS [...] Electronically authenticated by: NARINDER LAN Date: 2022-04-15 06:08[facility]09-12-2022 NotePROCEDURE: XR TOES RT MIN 2 [...] Follow Up Referral Dr. Negro LAGUERRE download [facility] Work Phone: chief complaint+Reason for visit Narrative* Chief Complaint 3 Month Follow Up Referral Dr. Negro LAGUERRE download Reason for Visit Type 2 diabetes holli [facility] Work Phone: chief complaint+Reason for visit Narrative* Chief Complaint Referral Dr. Negro LGAUERRE download 3 Month Check up Reason for Visit Type 2 diabetes holli [facility] Work Phone: chief complaint+Reason for visit Narrative* Chief Complaint Referral Dr. Negro LAGUERRE download 3 Month Check up amrik reader Reason for Visit Type 2 diabetes holli [facility] Right wrist fracture Type 2 diabetes mellitus [facility] Work Phone: chief complaint+Reason for visit [...] mellitus Vitamin D deficiency Gastroesophageal reflux disease [facility] Work Phone: Evaluation noteNo [facility] Other evaluation noteNo assessment information available [facility] Work Phone: evaluation note* Diagnosis Onset Date Resolution Status Type 2 diabetes mellitus acu te [facility] Work Phone: evaluation note* Diagnosis Onset Date Resolution Status Type 2 diabetes mellitus acu te Right wrist fracture acute Type 2 diabetes mellitus acu te [facility] Work Phone: evaluation note* Diagnosis Onset Date Resolution Status Type 2 diabetes mellitus acu te Right wrist fracture acute Type 2 diabetes mellitus acu te BMI 37.0-37.9, adult acute Dietary counseling and surveillance acute History of myocardial infarction acute HTN (hypertension) acute Hyperlipidemia acute Long-term insulin use acute Type 2 diabetes mellitus acu te Vitamin D deficiency acute Gastroesophageal reflux disease acute [facility] Work Phone: evaluation note* Diagnosis Onset [...] acute Type 2 diabetes mellitus acu te [facility] Work Phone: evaluation note* Diagnosis Onset [...] acute Type 2 diabetes mellitus acu te [facility] Work Phone: evaluation note* Diagnosis Onset [...] acute Type 2 diabetes mellitus acu te [facility] Work Phone: evaluation note* Diagnosis Onset [...] te Screening mammogram for breast cancer acute [facility] Work Phone: evaluation note* Diagnosis Onset [...] mellitus acu te Vitamin D deficiency acute [facility] Work Phone: evaluation note* Diagnosis Onset [...] acute Type 2 diabetes mellitus acu te [facility] Work Phone: evaluation note* Diagnosis Onset [...] mellitus acu te Vitamin D deficiency acute [facility] Work Phone: Evaluation note* Diagnosis Gangrene of toe of left foot ([facility])- [facility] - [facility]* Type Description Date Medical History Herpes labialis Medical History Candidiasis of mouth Medical History Type 2 diabetes holli itus with diabetic polyneuropathy, unspecified whether senior care insulin use Medical History Controlled type 2 di abetes mellitus with hyperglycemia, unspecified whether senior care insulin use Medical History Obesity Medical History Dyslipidemia Medical History CAD in grindstone artery Medical History Asthma, intermittent Medical History [...] History appendectomy Surgical History 7 stents 1999 [employer] Other [facility] general Narrative - Reported* Type Description Date Medical History Herpes labialis Medical History Candidiasis of mouth Medical History Type 2 diabetes holli itus with diabetic polyneuropathy, unspecified whether watermaster insulin use Medical History Controlled type 2 di abetes mellitus with hyperglycemia, unspecified whether senior care insulin use Medical History Obesity Medical History Dyslipidemia Medical History CAD in grindstone artery Medical History Asthma, intermittent Medical History [...] stents 1999 Hospitalization History see surgical history [facility] Other Hisglpe general Narrative - Reported* Type Description Date Medical History Herpes labialis Medical History Candidiasis of mouth Medical History Type 2 diabetes holli itus with diabetic polyneuropathy, unspecified whether watermaster insulin use Medical History Controlled type 2 di abetes mellitus with hyperglycemia, unspecified whether senior care insulin use Medical History Obesity Medical History Dyslipidemia Medical History CAD in grindstone artery Medical History Asthma, intermittent Medical History [...] coronary 1999 Hospitalization History see surgical history [employer] Other InstructionsNot on filedocumented in this encounter ZAO Begun Summary Purpose Family History Relationship Condition Age [...] Name Jose De Jesus Referring Provider Specialty [facility] Referred Organization [facility] Referred Provider Marcia Mendes Referred Address [address],[place], [place],[address] Referred Provider Specialty Nurse Huey saldaña Referral [...] 2024 2:03pm Type 2 diabetes mellitus May 24 025 12:54pm Chief Complaint Admit Date Amb Documentation May 07, 2024 3: 31pm Dexcom reader DL May 24, 2024 1 2:54pm Wellness May 30, 2024 1 0:42am Amb Documentation June 13, 2024 9:38am Amb Documentation June 21, 2024 9:25am Unknown July 05, 2024 9:33 am Reason for Visit Admit Date Type 2 diabetes mellitus April 19, 2024 2:03pm Type 2 diabetes mellitus May 24 025 12:54pm Colon cancer screening May 30 10:42am Long-term insulin use May 30, 2024 10:42am Type 2 diabetes mellitus May 30 025 10:42am Wellness examination May 30, 2024 10:42am Chief Complaint Admit Date Dexcom reader DL May 24, 2024 1 2:54pm Wellness May 30, 2024 1 0:42am Amb Documentation June 13, 2024 9:38am Amb Documentation June 21, 2024 9:25am Unknown July 05, 2024 9:33 am Amb Documentation July 19, 2024 9:2 9am Diabetes follow up-METER August 07, 2024 1:05pm Reason for Visit Admit Date Type 2 diabetes mellitus May 24 12:54pm Colon cancer screening May 30 10:42am Long-term insulin use May 30, 2024 10:42am Type 2 diabetes mellitus May 30 025 10:42am Wellness examination May 30, 2024 10:42am BMI 37.0-37.9, adult August 07, 2024 1:0 5pm Dietary counseling and surveillance Apri l 2024 1:05pm History of myocardial infarction August 072024 1:05pm HTN (hypertension) August 07, 2024 1:05 pm Hyperlipidemia August 07, 2024 1:05 pm Long-term insulin use August 07, 2024 1: 05pm Type 2 diabetes mellitus August 07, 2024 1:05pm Vitamin D deficiency August 07, 2024 1:0 5pm Additional Source Comments INFORMATION SOURCE (unrecogn ized section and content) DATE CREATED AUTHOR 10/25/2017 [facility] DATE CREATED AUTHOR AUTHOR'S ORGANIZ ATION 09/03/2022 [facility] DATE CREATED AUTHOR AUTHOR'S ORGANIZ ATION 06/16/2024 [facility] DATE CREATED AUTHOR AUTHOR'S ORGANIZ ATION 06/30/2024 [facility] DATE CREATED AUTHOR AUTHOR'S ORGANIZ ATION 07/13/2024 [facility] REASON FOR VISIT (unrecogniz ed section and content) Reason Comments left 2nd, 3rd, 4th toes discolored, pain ful Pain improved from yesterday Care Teams (unrecognized sec tion and content) Team Status: Active Member Role Status Dates Shayy Dela Cruz MD Primary Care Provider Active Team Status: Active [...] Care Provider Active Start: June 07, 2024 Sahyy Dela Cruz MD Attending Provider Active St art: June 07, 2024 Team Status: Active Member Role Status Dates PHYSICIAN NO FAMILY Primary Care Provider Active Start: June 12, 2024 Cathie Vargas APRN Attending Provider Active Start: June 12, 2024 [...] July 05, 2024 End: July 05, 2024 Team Status: Active Member Role Status Dates Shayy Dela Cruz MD Primary Care Provider Active Start: July 19, 2024 Brittney Drummond CMA Attending Provider Active Start: July 19, 2024 Team Status: Inactive Member Role Status Dates Shayy Dela Cruz MD Primary Care Provider Active Start: August 07, 2024 End: August 07, 2024 Cathie Vargas APRN Attending Provider Active Start: August 07, 2024 End: August 07, 2024 Team Status: Active Member Role [...] May 24, 2024 End: May 24, 2024 Cathiesay Vargas , FIELD EDUCATION DIRECTOR Active Star t: May 24, 2024 End: [...] End: August 24, 2023 Cathie Vargas , FIELD EDUCATION DIRECTOR Active Star t: August 24, 2023 End: August 24, 2023 Team Status: Inactive Member Role Status Dates Shayy Dela Cruz MD Primary Care Provide r, Attending Provider Active Start: September 06, 2023 End: September 06, 2023 Team Status: Inactive Member Role Status Dates Shayy Dela Cruz MD Primary Care Provider Active Start: September 29, 2023 End: September 29, 2023 Cathie Vargas , FIELD EDUCATION DIRECTOR Attending Provider Active Start: September 29, 2023 End: September 29, 2023 Team Status: Inactive Member Role Status Dates Shayy Dela Cruz MD Primary Care Provider Active Start: November 07, 2023 End: November 07, 2023 Curtis Norwood RN Attending Provider Active St art: November 07, 2023 End: November 07, 2023 Cathie Vargas , FIELD EDUCATION DIRECTOR Active Star t: November 07, 2023 End: [...] End: July 28, 2023 Cathie Vargas , FIELD EDUCATION DIRECTOR Attending Provider Active Start: July 28, 2023 End: July 28, 2023 Team Status: Inactive Member Role Status Dates Shayy Dela Cruz MD Attending Provider Active St art: April 15, 2023 End: April 15, 2023 Team Status: Inactive Member Role Status Dates Cathie Vargas , FIELD EDUCATION DIRECTOR Attending Provider Active Start: May 25, 2023 [...] End: June 14, 2023 Cathie Vargas , FIELD EDUCATION DIRECTOR Active Star t: June 14, 2023 End: [...] End: December 13, 2023 Cathie Vargas , FIELD EDUCATION DIRECTOR Attending Provider Active Start: December 13, 2023 End: December 13, 2023 Team Status: Inactive Member Role Status Dates Shayy Dela Cruz MD Primary Care Provider Active Start: January 17, 2024 End: January 17, 2024 Cathie Vargas , FIELD EDUCATION DIRECTOR Active Star t: January 17, 2024 End: January 17, 2024 Brittani Collier RN Attending Provider Active Start: January 17, 2024 End: January 17, 2024 Team Status: Inactive Member Role Status Dates Shayy Dela Cruz MD Primary Care Provider Active Start: February 23, 2024 End: February 23, 2024 Cathie Vargas , FATEMHE Attending Provider Active Start: February 23, 2024 [...] Active Start: June 12, 2024 Cathie Vargas APRN Attending Provider Active Start: June 12, 2024 [...] July 05, 2024 End: July 05, 2024 Team Status: Active Member Role Status Dates Shayy Dela Cruz MD Primary Care Provider Active Start: July 19, 2024 Brittney Drummond CMA Attending Provider Active Start: July 19, 2024 Team Status: Inactive Member Role Status Dates Shayy Dela Cruz MD Primary Care Provider Active Start: August 07, 2024 End: August 07, 2024 Cathie Vargas APRN Attending Provider Active Start: August 07, 2024 End: August 07, 2024 Goals (unrecognized section and content) Goals [...] BE BASED ON THE PRIMARY CLINICAL RECORDS. [facility] [employer] [facility]. provides no warranty or guarantee of the accuracy or completeness of information in this document.
== END 2024-08-10 11:14 | disposition home or self-care (01) ==
LOC: WC 11:13
PROVIDERS: PCP Family Medicine; Visit Provider Podiatrist Foot & Ankle Surgery
DX: M79.672 Pain in left foot (principal); Z98.890 Other specified postprocedural states
CPT/HCPCS: 73630; G0463

== ENCOUNTER 2024-08-17 14:46 | Emergency (ER) | payer MEDICARE, MEDICAID, SELFPAY ==
[2024-08-17 14:49] VITALS: BP 173/76; PULSE 91; TEMP 36.5; O2SAT 95; BMI 41.2
--- OUTSIDE RECORDS SUMMARY | 2024-08-17 15:03 | XMS_ITS | CCD ---
Author Organization [facility] CliniSynh Care Team Providers Care Cessation Systems Outreach Specialist Name Role Phone PHYSICIAN, DEFAULT Unavailable [...] Unavailable HAY ., DR CARPIO Admitting Unavailable DELAC RUZ, DR SHAYY Reyes Attending Unavailable DELA CRUZ, DR SHAYY Reyes Admitting Unavailable Narinder Lan Consulting Unavailable DELA CRUZ, DR SHAYY Reyes Primary Care Unavailable DELA CRUZ, DR SHAYY Reyes Consulting Unavailable DEL ACRUZ, DR SHAYY Reyes Consulting Unavailable DELA CRUZ, [...] source) codeine Drug Allergy 9 [facility] Repository (20 sources) Latex; Translations: [LATEX] Drug allergy (disorder) 9 sores on skin [facility] Repository (20 sources) Codeine; Translations: [CODEINE] Drug Allergy 0 nausea [facility] (19 sources) Latex Drug allergy 5 sores on skin [employer] Other (1 source) Codeine Drug Allergy The [facility] Repository (10 sources) cat dander Allergy to substance 4 Sneezing, Itching [facility] (10 sources) dog dander Allergy to substance 4 Sneezing, Itching [facility] (10 sources) ozempic Propensity to adverse reactions 4 Vomiting [facility] (3 sources) Insulin Lispro; Translations: [INSULIN LISPRO] Drug Allergy 5 [facility] (3 sources) tomato allergenic extract; Translations: [...] 2024 5:10pm Blood-Glucose Meter,Continuo us (Dexcom G7 Clerical Supervisor) misc (8 sources) Start: 12-13-2023 Blood-Glucose Meter,Continuous (Dexcom G7 Clerical Supervisor) misc Active 0 .Route December 12, 2023 11:00pm As directed Start: 12-13-2023 Blood-Glucose Meter,Continuous (Dexcom G7 Clerical Supervisor) misc Active 0 .Route December 13, 2023 12:00am As directed Start: 12-13-2023 Blood-Glucose Meter,Continuous (Dexcom G7 Clerical Supervisor) misc Active 0 .ROUTE December 13, 2023 [...] Orally Once a day Active Dexcom G7 Clerical Supervisor - (4 sources) Start: 06-03-19 24 Dexcom G7 Clerical Supervisor - as directed as directed 4 [...] Start: 02-06-2024 take 1 capsule by mo [facility] once daily Esomeprazole Magnesium Active [...] Jesus Lucas ( ) FreeStyle Amrik 3 Climax - (3 sources) Start: 06-06-2023 FreeStyle Amrik 3 Climax - as directed invitro 4 times daily [...] Drug Class(es) Dates Sig (Normalized) Sig (Original) [id number] 200 actuat albuterol 0.09 mg/actuat metered dose [...] Jun, Not-Taking/PRN Blood-Glucose Meter,Continuous (Freestyle Amrik 3 Climax) misc (15 sources) Start: 07-28-2023 End: 12-13-2023 Blood-Glucose Meter,Continuous (Freestyle Amrik 3 Climax) misc Discontinued EACH .ROUTE .MEDSUPPLY July 27, 2023 11:00pm December 13, 2023 12:09pm As directed Start: 07-28-2023 End: 12-13-2023 Blood-Glucose Meter,Continuo us (Freestyle Amrik 3 Climax) misc Discontinued EACH .ROUTE .MEDSUPPLY July 28, 2023 12:00am December 13, 2023 1:09pm As directed Start: 07-28-2023 Blood-Glucose Meter,Continuous (Freestyle Amrik 3 Climax) misc Active EACH .ROUTE .MEDSUPPLY July 28, [...] angina pectoris; Translations: [Atherosclerotic heart disease of [place] coronary artery without angina pectoris] Onset: 07-12-2022 [...] Onset: 11-09-2021 Chronic Other aftercare (20 sources) intermediate (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 of insulin; Translations: [Long-term (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 of insulin] Onset: 04-08-2022 Episodic Other aftercare (20 sources) Long-term current use of insulin; Translations: [director stage (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 of insulin] 07-28-2023 Episodic Other [...] Onset: 04-08-2022 Episodic Other aftercare (1 source) director stage (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; 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] Onset: 04-08-2022 Episodic Other aftercare (1 source) director stage (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 of oral hypoglycemic drugs; Translations: [[facility] USE ORAL HYPOGLYCEMIC DX] Onset: 04-08-2022 Episodic Other aftercare (1 source) Other custodial (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 therapy; Translations: [OTH [facility] CURRENT [...] Church on 07-10-2024 Pathology study [facility] Other Aren 07-05-2024 L Specimen: [id number] Received: 07/06/24 Status: SAM Cook Num: [id number] Spec Type: Surgical Subm Dr: Jordyn Bruce,[place], [place] Tissues: A DIGIT AMPUTATION (2ND LEFT TOE PARTIAL) B DIGIT AMPUTATION (3RD LEFT TOE) Procedures: HE/5, Gross/Micro L4/2, Decalcification/2 Age/ Patient Sex Location Account Attending Physician Zoila Ramos 54/F LABELL [id number] Jordyn Bruce DPM, SPEC NUM: [id number] RECD: 07/06/24 STATUS: SAM COOK NUM: [id number] JESSICA: 07/05/[address]: Jordyn Bruce DPM, MS ENTERED: 07/06/24 [facility] DR: Robert,Chasity SPEC TYPE: Surgical DEPT: AVERY [...] ulcer, left second and third toes Specimen: [id number] Received: 07/06/24 Status: SAM Cook Num: [id number] Spec Type: Surgical Subm Dr: Jordyn Bruce DPM, MS Tissues: A DIGIT AMPUTATION (2ND LEFT TOE PARTIAL) B DIGIT AMPUTATION (3RD LEFT TOE) Procedures: HE/5, Gross/Micro L4/2, Decalcification/2 Patient: RichardZoila [id number] (Continued) Specimen: [id number] Received: 07/06/24 (Continued) Signed (signature on file) Tejal Church MD 07/10/24 1438 Specimen: [id number] Received: 07/06/24 Status: SAM Cook Num: [id number] Spec Type: Surgical Subm Dr: Jordyn Bruce,[place], [place] Tissues: A DIGIT AMPUTATION (2ND LEFT TOE PARTIAL) B DIGIT AMPUTATION (3RD LEFT TOE) Procedures: HE/5, Gross/Micro L4/2, Decalcification/2 Patient: Zoila Ramos [id number] (Continued) Specimen: [id number] Received: 07/06/24-1327 (Continued) Gross Description Part A [...] x 1 x 0.4 cm. Cassettes: A1 Supervisor Costuming section of the wound with underlying central second phalangeal bone, decalcified A2 Tangential sections of proximal skin margin A3 Detached skin ( 3, ss, [id number] A) Part B is received in formalin [...] Tangential sections of proximal skin margin with medical representative sec (more content not included)... Normal [facility] Orders Onlyon 06-25-2024 Orders Only [id number] Zoila Ramos 1970 F [facility] Provider Department [place] 06/25/2024 928-JESSICA STONE CARD [facility] No family history on file Normal [facility] Activated partial thrombopla stin time (aPTT) in platelet poor plasma by coagulation aon 06-19-2024 aPTT Coag (PPP) [Time] Activated partial thromboplastin time (aPTT) in platelet poor plasma by coagulation a 22.3-36.2 [facility] Basophils Auto (Bld) [#/Vol] on 06-19-2024 Basophils (Bld) [#/Vol] Automated basophil count 0.0-0.1 [facility] Basophils/100 WBC Auto (Bld) on 06-19-2024 Basophils/100 WBC (Bld) Automated basophil % 0.2-2.0 [facility] Eosinophils/100 WBC Auto (Bl d)on 06-19-2024 Eosinophils/100 WBC (Bld) Automated eosinophil % 0.9-7.0 [facility] Erythrocyte distribution wid th Auto (RBC) [Ratio]on 06-19-2024 Erythrocyte distribution width (RBC) [Ratio] Erythrocyte distribution width [Ratio] by Automated count 11.0-15.0 [facility] Estimated glomerular filtrat ion rate (GFR) non- Americanon 06-19-2024 GFR/1.73 sq M.predicted among non-blacks MDRD (S/P/Bld) [Vol rate/Area] Estimated glomerular filtration rate (GFR) non- >=60 mL/min/1.73m 2 [facility] Globulin Calc (S) [Mass/Vol] on 06-19-2024 Globulin (S) [Mass/Vol] Serum globulin measurement by calculation (mass/volume) [facility] Hematocrit Auto (Bld) [Volum e fraction]on 06-19-2024 Hematocrit (Bld) [Volume fraction] Hematocrit [Volume Fraction] of Blood by Automated count 36.0-48.0 [facility] Hemoglobin [Mass/volume] in Bloodon 06-19-2024 Hemoglobin (Bld) [Mass/Vol] Hemoglobin [Mass/volume] in Blood 12.0-16.0 [facility] INR in Platelet poor plasma by Coagulation assayon 06-19-2024 INR Coag (PPP) [Relative time] INR in Platelet poor plasma by Coagulation assay [facility] Comment on above: DESIRED INR:2.0-3.0 CONDITIONS NOT LISTED BELOW2.5-3.5 FOR PROSTHETIC HEART VALVE REPLACEMENT2.5-3.5 RECURRENT THROMBOSIS Laboratory - Chemistry and C hemistry - challengeon 06-19-2024 Albumin [Mass/Vol] 3.3 g/dL Low 3.4-5.0 [facility] ALP [Catalytic activity/Vol] 110 U/L 46-116 [facility] ALT [Catalytic activity/Vol] 44 U/L 14-59 [facility] AST [Catalytic activity/Vol] 23 U/L 15-37 [facility] Bilirubin [Mass/Vol] 0.3 mg/dL 0.2-1.0 [facility] Calcium [Mass/Vol] 9.3 mg/dL 8.5-10.1 [facility] Chloride [Moles/Vol] 102 mmol/L 98-107 [facility] CO2 [Moles/Vol] 27.9 mmol/L 21.0-32.0 [facility] Creatinine [Mass/Vol] 0.88 mg/dL 0.55-1.02 [facility] GFR/1.73 sq M.predicted MDRD (S/P/Bld) [Vol rate/Area] mL/min/{1.73_m2} >=60 mL/min/1.73m 2 [facility] Glucose [Mass/Vol] 175 mg/dL High 74-106 [facility] Lipase [Catalytic activity/Vol] 28.0 U/L 16.0-77.0 [facility] Potassium [Moles/Vol] 4.2 mmol/L 3.5-5.1 [facility] Protein [Mass/Vol] 7.6 g/dL 6.4-8.2 [facility] Sodium [Moles/Vol] 137 mmol/L 136-145 [facility] Urea nitrogen [Mass/Vol] 12.0 mg/dL 7.0-18.0 [facility] Urea nitrogen/Creatinine [Mass ratio] 13.6 mg/mg [facility] Laboratory - Hematology and Cell countson 06-19-2024 Immature granulocytes/100 WBC (Bld) 0.1 % 0.0-0.5 [facility] Leukocytes [#/volume] correc alma delia for nucleated erythrocytes in Blood by Automated counon 06-19-2024 WBC corrected for nucl RBC Auto (Bld) [#/Vol] Leukocytes [#/volume] corrected for nucleated erythrocytes in Blood by Automated coun 4.0-11.0 [facility] Lymphocytes Auto (Bld) [#/Vo l]on 06-19-2024 Lymphocytes (Bld) [#/Vol] Lymphocytes [#/volume] in Blood by Automated count 1.2-3.8 [facility] Lymphocytes/100 WBC Auto (Bl d)on 06-19-2024 Lymphocytes/100 WBC (Bld) Lymphocytes/100 leukocytes in Blood by Automated count 20.5-60.0 [facility] MCH Auto (RBC) [Entitic mass ]on 06-19-2024 MCH (RBC) [Entitic mass] MCH [Entitic mass] by Automated count 26.7-34.0 [facility] MCHC Auto (RBC) [Mass/Vol]on 06-19-2024 MCHC (RBC) [Mass/Vol] MCHC [Mass/volume] by Automated count 29.9-35.2 [facility] MCV Auto (RBC) [Entitic vol] on 06-19-2024 MCV (RBC) [Entitic vol] MCV [Entitic volume] by Automated count 81.0-99.0 [facility] Monocytes Auto (Bld) [#/Vol] on 06-19-2024 Monocytes (Bld) [#/Vol] Automated blood monocyte count 0.3-0.8 [facility] Monocytes/100 WBC Auto (Bld) on 06-19-2024 Monocytes/100 WBC (Bld) Automated monocyte % 1.7-12.0 [facility] Neutrophils Auto (Bld) [#/Vo l]on 06-19-2024 Neutrophils (Bld) [#/Vol] Neutrophils [#/volume] in Blood by Automated count 1.4-6.5 [facility] Neutrophils/100 WBC Auto (Bl d)on 06-19-2024 Neutrophils/100 WBC (Bld) Automated neutrophil % 43.0-75.0 [facility] No Panel Informationon 06-19 Eosinophils # (Auto) 0.2 10 3/uL 0.0-0.7 [facility] Immature Granulocyte # (Auto) 0.01 10 3/uL 0.00-0.03 [facility] Office Visiton 06-19-2024 Follow-up visit [id number] Zoila Ramos 1970 F Date Provider Department Center 06/19/2024 MARQUES MCINTYRE CARD [facility] No family history on file Level of Service:77484 [place] OFFICE/OUTPATIENT ESTABLISHED MOD MDM 30 MIN Normal [facility] Platelet mean volume Auto (B ld) [Entitic vol]on 06-19-2024 Platelet mean volume (Bld) [Entitic vol] Platelet mean volume [Entitic volume] in Blood by Automated count 9.5-13.5 [facility] Platelets Auto (Bld) [#/Vol] on 06-19-2024 Platelets (Bld) [#/Vol] Platelets [#/volume] in Blood by Automated count 150-450 [facility] Prothrombin time (PT)on 06-02 PT Coag (PPP) [Time] Prothrombin time (PT) 9.0-11.6 [facility] RBC Auto (Bld) [#/Vol]on RBC (Bld) [#/Vol] Erythrocytes [#/volume] in Blood by Automated count 4.20-5.40 [facility] Serum or plasma albumin/glob ulin mass ratioon 06-19-2024 Albumin/Globulin [Mass ratio] Serum or plasma albumin/globulin mass ratio [facility] Serum or plasma anion gap de terminationon 06-19-2024 Anion gap [Moles/Vol] Serum or plasma anion gap determination [facility] Cholesterol in LDL Calc [Mas s/Vol]on 06-12-2024 Cholesterol in LDL [Mass/Vol] Cholesterol in LDL [Mass/volume] in Serum or Plasma by calculation [facility] Comment on above: <100 mg/dl [id number] 0-129 mg/dl NEAR OR ABOVE [id number] mg/dl BORDERLINE [id number] mg/dl HIGH>190 mg/dl VERY HIGH Cholesterol in VLDL Calc [Ma ss/Vol]on 06-12-2024 Cholesterol in VLDL [Mass/Vol] Cholesterol in VLDL [Mass/volume] in Serum or Plasma by calculation [facility] Estimated glomerular filtrat ion rate (GFR) non- Americanon 06-12-2024 GFR/1.73 sq M.predicted among non-blacks MDRD (S/P/Bld) [Vol rate/Area] Estimated glomerular filtration rate (GFR) non- >=60 mL/min/1.73m 2 [facility] Globulin Calc (S) [Mass/Vol] on 06-12-2024 Globulin (S) [Mass/Vol] Serum globulin measurement by calculation (mass/volume) [facility] Laboratory - Chemistry and C hemistry - challengeon 06-12-2024 Albumin [Mass/Vol] 3.1 g/dL Low 3.4-5.0 [facility] ALP [Catalytic activity/Vol] 118 U/L High 46-116 [facility] ALT [Catalytic activity/Vol] 36 U/L 14-59 [facility] AST [Catalytic activity/Vol] 18 U/L 15-37 [facility] Bilirubin [Mass/Vol] 0.3 mg/dL 0.2-1.0 [facility] Calcium [Mass/Vol] 9.1 mg/dL 8.5-10.1 [facility] Chloride [Moles/Vol] 102 mmol/L 98-107 [facility] Cholesterol [Mass/Vol] 124 mg/dL <=200 [facility] Cholesterol in HDL [Mass/Vol] 43 mg/dL 40-60 [facility] Comment on above: > or =60 mg/dl - LOW CARDIOVASCULAR RISK<40 mg/dl - HIGH CARDIOVASCULAR RISK CO2 [Moles/Vol] 28.4 mmol/L 21.0-32.0 [facility] Cobalamin (Vitamin B12) [Mass/Vol] 998 pg/mL 232-1245 [facility] Comment on above: Performed at: [address] [id number] Director: Gerald Jacobs PhD, Phone: [phone] Creatinine [Mass/Vol] 0.87 mg/dL 0.55-1.02 [facility] GFR/1.73 sq M.predicted MDRD (S/P/Bld) [Vol rate/Area] mL/min/{1.73_m2} >=60 mL/min/1.73m 2 [facility] Glucose [Mass/Vol] 197 mg/dL High 74-106 [facility] Potassium [Moles/Vol] 4.5 mmol/L 3.5-5.1 [facility] Protein [Mass/Vol] 7.3 g/dL 6.4-8.2 [facility] Sodium [Moles/Vol] 142 mmol/L 136-145 [facility] Triglyceride [Mass/Vol] 68 mg/dL <=150 [facility] Urea nitrogen [Mass/Vol] 11.0 mg/dL 7.0-18.0 [facility] Urea nitrogen/Creatinine [Mass ratio] 12.6 mg/mg [facility] No Panel Informationon 06-12 25-Hydroxy Vitamin D Total 44.6 ng/mL [facility] Comment on above: <20 ng/mL Vit D defi cient20-<30 ng/mL Vit D wigrqgcrxbin09-820 ng/mL Vit D sufficient>100 ng/mL Potential Toxicity Serum or plasma albumin/glob ulin mass ratioon 06-12-2024 Albumin/Globulin [Mass ratio] Serum or plasma albumin/globulin mass ratio [facility] Serum or plasma anion gap de terminationon 06-12-2024 Anion gap [Moles/Vol] Serum or plasma anion gap determination [facility] Serum or plasma total choles terol/high density lipoprotein (HDL) cholesterol mass jaun 06-12-2024 Cholesterol.total/Ch olesterol in HDL [Mass ratio] Serum or plasma total cholesterol/high density lipoprotein (HDL) cholesterol mass rat [facility] Comment on above: 3.3 - 4.4 LOW RISK4. 4 - 7.1 AVERAGE RISK7.1 - 11.0 MODERATE RISK>11.0 HIGH RISK Basophils Auto (Bld) [#/Vol] on 06-07-2024 Basophils (Bld) [#/Vol] Automated basophil count 0.0-0.1 [facility] Basophils/100 WBC Auto (Bld) on 06-07-2024 Basophils/100 WBC (Bld) Automated basophil % 0.2-2.0 [facility] Eosinophils/100 WBC Auto (Bl d)on 06-07-2024 Eosinophils/100 WBC (Bld) Automated eosinophil % 0.9-7.0 [facility] Erythrocyte distribution wid th Auto (RBC) [Ratio]on 06-07-2024 Erythrocyte distribution width (RBC) [Ratio] Erythrocyte distribution width [Ratio] by Automated count 11.0-15.0 [facility] Estimated glomerular filtrat ion rate (GFR) non- Americanon 06-07-2024 GFR/1.73 sq M.predicted among non-blacks MDRD (S/P/Bld) [Vol rate/Area] Estimated glomerular filtration rate (GFR) non- >=60 mL/min/1.73m 2 [facility] Globulin Calc (S) [Mass/Vol] on 06-07-2024 Globulin (S) [Mass/Vol] Serum globulin measurement by calculation (mass/volume) [facility] Hematocrit Auto (Bld) [Volum e fraction]on 06-07-2024 Hematocrit (Bld) [Volume fraction] Hematocrit [Volume Fraction] of Blood by Automated count 36.0-48.0 [facility] Hemoglobin [Mass/volume] in Bloodon 06-07-2024 Hemoglobin (Bld) [Mass/Vol] Hemoglobin [Mass/volume] in Blood 12.0-16.0 [facility] Laboratory - Chemistry and C hemistry - challengeon 06-07-2024 Lactate [Moles/Vol] 1.9 mmol/L 0.4-2.0 [facility] Albumin [Mass/Vol] 3.3 g/dL Low 3.4-5.0 [facility] ALP [Catalytic activity/Vol] 115 U/L 46-116 [facility] ALT [Catalytic activity/Vol] 39 U/L 14-59 [facility] AST [Catalytic activity/Vol] 16 U/L 15-37 [facility] Bilirubin [Mass/Vol] 0.2 mg/dL 0.2-1.0 [facility] Calcium [Mass/Vol] 9.4 mg/dL 8.5-10.1 [facility] Chloride [Moles/Vol] 104 mmol/L 98-107 [facility] CO2 [Moles/Vol] 27.1 mmol/L 21.0-32.0 [facility] Creatinine [Mass/Vol] 0.86 mg/dL 0.55-1.02 [facility] GFR/1.73 sq M.predicted MDRD (S/P/Bld) [Vol rate/Area] mL/min/{1.73_m2} >=60 mL/min/1.73m 2 [facility] Glucose [Mass/Vol] 157 mg/dL High 74-106 [facility] Potassium [Moles/Vol] 4.4 mmol/L 3.5-5.1 [facility] Protein [Mass/Vol] 7.3 g/dL 6.4-8.2 [facility] Sodium [Moles/Vol] 142 mmol/L 136-145 [facility] Urea nitrogen [Mass/Vol] 23.0 mg/dL High 7.0-18.0 [facility] Urea nitrogen/Creatinine [Mass ratio] 26.7 mg/mg [facility] Laboratory - Hematology and Cell countson 06-07-2024 ESR (Bld) [Velocity] 41 mm/h High <=30 [facility] Immature granulocytes/100 WBC (Bld) 0.2 % 0.0-0.5 [facility] Leukocytes [#/volume] correc alma delia for nucleated erythrocytes in Blood by Automated counon 06-07-2024 WBC corrected for nucl RBC Auto (Bld) [#/Vol] Leukocytes [#/volume] corrected for nucleated erythrocytes in Blood by Automated coun 4.0-11.0 [facility] Lymphocytes Auto (Bld) [#/Vo l]on 06-07-2024 Lymphocytes (Bld) [#/Vol] Lymphocytes [#/volume] in Blood by Automated count 1.2-3.8 [facility] Lymphocytes/100 WBC Auto (Bl d)on 06-07-2024 Lymphocytes/100 WBC (Bld) Lymphocytes/100 leukocytes in Blood by Automated count 20.5-60.0 [facility] MCH Auto (RBC) [Entitic mass ]on 06-07-2024 MCH (RBC) [Entitic mass] MCH [Entitic mass] by Automated count 26.7-34.0 [facility] MCHC Auto (RBC) [Mass/Vol]on 06-07-2024 MCHC (RBC) [Mass/Vol] MCHC [Mass/volume] by Automated count 29.9-35.2 [facility] MCV Auto (RBC) [Entitic vol] on 06-07-2024 MCV (RBC) [Entitic vol] MCV [Entitic volume] by Automated count 81.0-99.0 [facility] Monocytes Auto (Bld) [#/Vol] on 06-07-2024 Monocytes (Bld) [#/Vol] Automated blood monocyte count 0.3-0.8 [facility] Monocytes/100 WBC Auto (Bld) on 06-07-2024 Monocytes/100 WBC (Bld) Automated monocyte % 1.7-12.0 [facility] Neutrophils Auto (Bld) [#/Vo l]on 06-07-2024 Neutrophils (Bld) [#/Vol] Neutrophils [#/volume] in Blood by Automated count 1.4-6.5 [facility] Neutrophils/100 WBC Auto (Bl d)on 06-07-2024 Neutrophils/100 WBC (Bld) Automated neutrophil % 43.0-75.0 [facility] No Panel Informationon 06-07 C-Reactive Protein, Quantitative 1.46 mg/dL High <=0.50 [facility] Eosinophils # (Auto) 0.3 10 3/uL 0.0-0.7 [facility] Immature Granulocyte # (Auto) 0.02 10 3/uL 0.00-0.03 [facility] Platelet mean volume Auto (B ld) [Entitic vol]on 06-07-2024 Platelet mean volume (Bld) [Entitic vol] Platelet mean volume [Entitic volume] in Blood by Automated count 9.5-13.5 [facility] Platelets Auto (Bld) [#/Vol] on 06-07-2024 Platelets (Bld) [#/Vol] Platelets [#/volume] in Blood by Automated count 150-450 [facility] RBC Auto (Bld) [#/Vol]on RBC (Bld) [#/Vol] Erythrocytes [#/volume] in Blood by Automated count 4.20-5.40 [facility] Serum or plasma albumin/glob ulin mass ratioon 06-07-2024 Albumin/Globulin [Mass ratio] Serum or plasma albumin/globulin mass ratio [facility] Serum or plasma anion gap de terminationon 06-07-2024 Anion gap [Moles/Vol] Serum or plasma anion gap determination [facility] Basophils Auto (Bld) [#/Vol] on 06-01-2024 Basophils (Bld) [#/Vol] Automated basophil count 0.0-0.1 [facility] Basophils/100 WBC Auto (Bld) on 06-01-2024 Basophils/100 WBC (Bld) Automated basophil % 0.2-2.0 [facility] Eosinophils/100 WBC Auto (Bl d)on 06-01-2024 Eosinophils/100 WBC (Bld) Automated eosinophil % 0.9-7.0 [facility] Erythrocyte distribution wid th Auto (RBC) [Ratio]on 06-01-2024 Erythrocyte distribution width (RBC) [Ratio] Erythrocyte distribution width [Ratio] by Automated count 11.0-15.0 [facility] Estimated glomerular filtrat ion rate (GFR) non- Americanon 06-01-2024 GFR/1.73 sq M.predicted among non-blacks MDRD (S/P/Bld) [Vol rate/Area] Estimated glomerular filtration rate (GFR) non- Low >=60 mL/min/1.73m 2 [facility] Hematocrit Auto (Bld) [Volum e fraction]on 06-01-2024 Hematocrit (Bld) [Volume fraction] Hematocrit [Volume Fraction] of Blood by Automated count 36.0-48.0 [facility] Hemoglobin [Mass/volume] in Bloodon 06-01-2024 Hemoglobin (Bld) [Mass/Vol] Hemoglobin [Mass/volume] in Blood 12.0-16.0 [facility] Laboratory - Chemistry and C hemistry - challengeon 06-01-2024 Calcium [Mass/Vol] 9.0 mg/dL 8.5-10.1 [facility] Chloride [Moles/Vol] 105 mmol/L 98-107 [facility] CO2 [Moles/Vol] 29.8 mmol/L 21.0-32.0 [facility] Creatinine [Mass/Vol] 1.01 mg/dL 0.55-1.02 [facility] GFR/1.73 sq M.predicted MDRD (S/P/Bld) [Vol rate/Area] mL/min/{1.73_m2} >=60 mL/min/1.73m 2 [facility] Glucose [Mass/Vol] 171 mg/dL High 74-106 [facility] Potassium [Moles/Vol] 4.6 mmol/L 3.5-5.1 [facility] Sodium [Moles/Vol] 140 mmol/L 136-145 [facility] Urea nitrogen [Mass/Vol] 15.0 mg/dL 7.0-18.0 [facility] Urea nitrogen/Creatinine [Mass ratio] 14.9 mg/mg [facility] Laboratory - Hematology and Cell countson 06-01-2024 Immature granulocytes/100 WBC (Bld) 0.3 % 0.0-0.5 [facility] Leukocytes [#/volume] correc alma delia for nucleated erythrocytes in Blood by Automated counon 06-01-2024 WBC corrected for nucl RBC Auto (Bld) [#/Vol] Leukocytes [#/volume] corrected for nucleated erythrocytes in Blood by Automated coun 4.0-11.0 [facility] Lymphocytes Auto (Bld) [#/Vo l]on 06-01-2024 Lymphocytes (Bld) [#/Vol] Lymphocytes [#/volume] in Blood by Automated count 1.2-3.8 [facility] Lymphocytes/100 WBC Auto (Bl d)on 06-01-2024 Lymphocytes/100 WBC (Bld) Lymphocytes/100 leukocytes in Blood by Automated count 20.5-60.0 [facility] MCH Auto (RBC) [Entitic mass ]on 06-01-2024 MCH (RBC) [Entitic mass] MCH [Entitic mass] by Automated count 26.7-34.0 [facility] MCHC Auto (RBC) [Mass/Vol]on 06-01-2024 MCHC (RBC) [Mass/Vol] MCHC [Mass/volume] by Automated count 29.9-35.2 [facility] MCV Auto (RBC) [Entitic vol] on 06-01-2024 MCV (RBC) [Entitic vol] MCV [Entitic volume] by Automated count 81.0-99.0 [facility] Monocytes Auto (Bld) [#/Vol] on 06-01-2024 Monocytes (Bld) [#/Vol] Automated blood monocyte count 0.3-0.8 [facility] Monocytes/100 WBC Auto (Bld) on 06-01-2024 Monocytes/100 WBC (Bld) Automated monocyte % 1.7-12.0 [facility] Neutrophils Auto (Bld) [#/Vo l]on 06-01-2024 Neutrophils (Bld) [#/Vol] Neutrophils [#/volume] in Blood by Automated count 1.4-6.5 [facility] Neutrophils/100 WBC Auto (Bl d)on 06-01-2024 Neutrophils/100 WBC (Bld) Automated neutrophil % 43.0-75.0 [facility] No Panel Informationon 06-01 Eosinophils # (Auto) 0.2 10 3/uL 0.0-0.7 [facility] Immature Granulocyte # (Auto) 0.02 10 3/uL 0.00-0.03 [facility] Platelet mean volume Auto (B ld) [Entitic vol]on 06-01-2024 Platelet mean volume (Bld) [Entitic vol] Platelet mean volume [Entitic volume] in Blood by Automated count 9.5-13.5 [facility] Platelets Auto (Bld) [#/Vol] on 06-01-2024 Platelets (Bld) [#/Vol] Platelets [#/volume] in Blood by Automated count 150-450 [facility] RBC Auto (Bld) [#/Vol]on RBC (Bld) [#/Vol] Erythrocytes [#/volume] in Blood by Automated count 4.20-5.40 [facility] Serum or plasma anion gap de terminationon 06-01-2024 Anion gap [Moles/Vol] Serum or plasma anion gap determination [facility] Basophils Auto (Bld) [#/Vol] on 05-16-2024 Basophils (Bld) [#/Vol] Automated basophil count 0.0-0.1 [facility] Basophils/100 WBC Auto (Bld) on 05-16-2024 Basophils/100 WBC (Bld) Automated basophil % 0.2-2.0 [facility] Eosinophils/100 WBC Auto (Bl d)on 05-16-2024 Eosinophils/100 WBC (Bld) Automated eosinophil % 0.9-7.0 [facility] Erythrocyte distribution wid th Auto (RBC) [Ratio]on 05-16-2024 Erythrocyte distribution width (RBC) [Ratio] Erythrocyte distribution width [Ratio] by Automated count 11.0-15.0 [facility] Estimated glomerular filtrat ion rate (GFR) non- Americanon 05-16-2024 GFR/1.73 sq M.predicted among non-blacks MDRD (S/P/Bld) [Vol rate/Area] Estimated glomerular filtration rate (GFR) non- Low >=60 mL/min/1.73m 2 [facility] Hematocrit Auto (Bld) [Volum e fraction]on 05-16-2024 Hematocrit (Bld) [Volume fraction] Hematocrit [Volume Fraction] of Blood by Automated count 36.0-48.0 [facility] Hemoglobin [Mass/volume] in Bloodon 05-16-2024 Hemoglobin (Bld) [Mass/Vol] Hemoglobin [Mass/volume] in Blood 12.0-16.0 [facility] Laboratory - Chemistry and C hemistry - challengeon 05-16-2024 Calcium [Mass/Vol] 9.1 mg/dL 8.5-10.1 [facility] Chloride [Moles/Vol] 104 mmol/L 98-107 [facility] CO2 [Moles/Vol] 30.6 mmol/L 21.0-32.0 [facility] Creatinine [Mass/Vol] 1.01 mg/dL 0.55-1.02 [facility] GFR/1.73 sq M.predicted MDRD (S/P/Bld) [Vol rate/Area] mL/min/{1.73_m2} >=60 mL/min/1.73m 2 [facility] Glucose [Mass/Vol] 206 mg/dL High 74-106 [facility] Potassium [Moles/Vol] 5.1 mmol/L 3.5-5.1 [facility] Sodium [Moles/Vol] 141 mmol/L 136-145 [facility] Urea nitrogen [Mass/Vol] 12.0 mg/dL 7.0-18.0 [facility] Urea nitrogen/Creatinine [Mass ratio] 11.9 mg/mg [facility] Laboratory - Hematology and Cell countson 05-16-2024 ESR (Bld) [Velocity] 28 mm/h <=30 [facility] Immature granulocytes/100 WBC (Bld) 0.3 % 0.0-0.5 [facility] Leukocytes [#/volume] correc alma delia for nucleated erythrocytes in Blood by Automated counon 05-16-2024 WBC corrected for nucl RBC Auto (Bld) [#/Vol] Leukocytes [#/volume] corrected for nucleated erythrocytes in Blood by Automated coun 4.0-11.0 [facility] Lymphocytes Auto (Bld) [#/Vo l]on 05-16-2024 Lymphocytes (Bld) [#/Vol] Lymphocytes [#/volume] in Blood by Automated count 1.2-3.8 [facility] Lymphocytes/100 WBC Auto (Bl d)on 05-16-2024 Lymphocytes/100 WBC (Bld) Lymphocytes/100 leukocytes in Blood by Automated count 20.5-60.0 [facility] MCH Auto (RBC) [Entitic mass ]on 05-16-2024 MCH (RBC) [Entitic mass] MCH [Entitic mass] by Automated count 26.7-34.0 [facility] MCHC Auto (RBC) [Mass/Vol]on 05-16-2024 MCHC (RBC) [Mass/Vol] MCHC [Mass/volume] by Automated count 29.9-35.2 [facility] MCV Auto (RBC) [Entitic vol] on 05-16-2024 MCV (RBC) [Entitic vol] MCV [Entitic volume] by Automated count 81.0-99.0 [facility] Monocytes Auto (Bld) [#/Vol] on 05-16-2024 Monocytes (Bld) [#/Vol] Automated blood monocyte count 0.3-0.8 [facility] Monocytes/100 WBC Auto (Bld) on 05-16-2024 Monocytes/100 WBC (Bld) Automated monocyte % 1.7-12.0 [facility] Neutrophils Auto (Bld) [#/Vo l]on 05-16-2024 Neutrophils (Bld) [#/Vol] Neutrophils [#/volume] in Blood by Automated count 1.4-6.5 [facility] Neutrophils/100 WBC Auto (Bl d)on 05-16-2024 Neutrophils/100 WBC (Bld) Automated neutrophil % 43.0-75.0 [facility] No Panel Informationon 05-16 C-Reactive Protein, Quantitative 1.26 mg/dL High <=0.50 [facility] Eosinophils # (Auto) 0.3 10 3/uL 0.0-0.7 [facility] Immature Granulocyte # (Auto) 0.02 10 3/uL 0.00-0.03 [facility] Platelet mean volume Auto (B ld) [Entitic vol]on 05-16-2024 Platelet mean volume (Bld) [Entitic vol] Platelet mean volume [Entitic volume] in Blood by Automated count 9.5-13.5 [facility] Platelets Auto (Bld) [#/Vol] on 05-16-2024 Platelets (Bld) [#/Vol] Platelets [#/volume] in Blood by Automated count 150-450 [facility] RBC Auto (Bld) [#/Vol]on RBC (Bld) [#/Vol] Erythrocytes [#/volume] in Blood by Automated count 4.20-5.40 [facility] Serum or plasma anion gap de terminationon 05-16-2024 Anion gap [Moles/Vol] Serum or plasma anion gap determination [facility] Creatinine [Mass/volume] in UrineOrdered By: Cathie Vargas on 02-23-2024 Creatinine (U) [Mass/Vol] 28.00 mg/dL [facility] Comment on above: No reference range e stablished MicroAlb Creat Ratio,Uon Creatinine, Urine (Random) 28.00 mg/dL Normal [facility] Comment on above: Result Comment: No r eference range established Performed By: #### U RMACRERAT #### [facility] [address] [place] [address] Microalbumin/Creatin ine Ratio Not performed Normal 0.0-30.0 [facility] Comment on above: Result Comment: PERF ORMED BY: [place] [address] PATHOLOGIST TRIAGE SPECIALIST RUBINA RICCI M.D. Performed By: #### U RMACRERAT #### [facility] [address] [place] [address] Microalbumin [Mass/volume] i n UrineOrdered By: Cathie Vargas on 02-23-2024 Albumin DL <= 20 mg/L (U) [Mass/Vol] mg/dL Normal 0.0-1.8 [facility] Comment on above: Performed By: #### U RMACRERAT #### [facility] [address] [place] [address] Urine microalbumin/creatinin e mass ratioOrdered By: Cathie Vargas on 02-23-2024 Albumin/Creatinine DL <= 20 mg/L (U) [Mass ratio] TNP [facility] Comment on above: Test not performed HbA1c HPLC (Bld) [Mass fract ion]on 12-13-2023 HbA1c (Bld) [Mass fraction] 9.9 % [facility] No Panel Informationon 12-12 Bedside Glucose 118 [facility] No Panel Informationon 09-28 Bedside Glucose 278 [facility] HbA1c HPLC (Bld) [Mass fract ion]on 07-28-2023 HbA1c (Bld) [Mass fraction] 10.3 % [facility] No Panel Informationon 07-27 Bedside Glucose 126 [facility] Basophils Auto (Bld) [#/Vol] on 07-12-2023 Basophils (Bld) [#/Vol] 0.0 10 3/uL 0.0-0.1 [facility] Basophils/100 WBC Auto (Bld) on 07-12-2023 Basophils/100 WBC (Bld) 0.5 % 0.2-2.0 [facility] Eosinophils/100 WBC Auto (Bl d)on 07-12-2023 Eosinophils/100 WBC (Bld) 1.5 % 0.9-7.0 [facility] Erythrocyte distribution wid th Auto (RBC) [Ratio]on 07-12-2023 Erythrocyte distribution width (RBC) [Ratio] 12.7 % 11.0-15.0 [facility] Estimated glomerular filtrat ion rate (GFR) non- Americanon 07-12-2023 GFR/1.73 sq M.predicted among non-blacks MDRD (S/P/Bld) [Vol rate/Area] mL/min/{1.73_m2} >=60 [facility] Hematocrit Auto (Bld) [Volum e fraction]on 07-12-2023 Hematocrit (Bld) [Volume fraction] 42.8 % 36.0-48.0 [facility] Hemoglobin [Mass/volume] in Bloodon 07-12-2023 Hemoglobin (Bld) [Mass/Vol] 14.3 g/dL 12.0-16.0 [facility] Laboratory - Chemistry and C hemistry - challengeon 07-12-2023 Calcium [Mass/Vol] 9.1 mg/dL 8.5-10.1 [facility] Chloride [Moles/Vol] 100 mmol/L 98-107 [facility] CO2 [Moles/Vol] 26.1 mmol/L 21.0-32.0 [facility] Creatinine [Mass/Vol] 0.78 mg/dL 0.55-1.02 [facility] GFR/1.73 sq M.predicted MDRD (S/P/Bld) [Vol rate/Area] mL/min/{1.73_m2} >=60 [facility] Glucose [Mass/Vol] 215 mg/dL 74-106 [facility] Potassium [Moles/Vol] 4.0 mmol/L 3.5-5.1 [facility] Sodium [Moles/Vol] 137 mmol/L 136-145 [facility] Urea nitrogen [Mass/Vol] 12.0 mg/dL 7.0-18.0 [facility] Urea nitrogen/Creatinine [Mass ratio] 15.4 mg/mg [facility] Laboratory - Hematology and Cell countson 07-12-2023 Immature granulocytes/100 WBC (Bld) 0.1 % 0.0-0.5 [facility] Leukocytes [#/volume] correc alma delia for nucleated erythrocytes in Blood by Automated counon 07-12-2023 WBC corrected for nucl RBC Auto (Bld) [#/Vol] 7.8 10 3/uL 4.0-11.0 [facility] Lymphocytes Auto (Bld) [#/Vo l]on 07-12-2023 Lymphocytes (Bld) [#/Vol] 2.7 10 3/uL 1.2-3.8 [facility] Lymphocytes/100 WBC Auto (Bl d)on 07-12-2023 Lymphocytes/100 WBC (Bld) 34.1 % 20.5-60.0 [facility] MCH Auto (RBC) [Entitic mass ]on 07-12-2023 MCH (RBC) [Entitic mass] 29.2 pg 26.7-34.0 [facility] MCHC Auto (RBC) [Mass/Vol]on 07-12-2023 MCHC (RBC) [Mass/Vol] 33.4 g/dL 29.9-35.2 [facility] MCV Auto (RBC) [Entitic vol] on 07-12-2023 MCV (RBC) [Entitic vol] 87.5 fL 81.0-99.0 [facility] Monocytes Auto (Bld) [#/Vol] on 07-12-2023 Monocytes (Bld) [#/Vol] 0.5 10 3/uL 0.3-0.8 [facility] Monocytes/100 WBC Auto (Bld) on 07-12-2023 Monocytes/100 WBC (Bld) 6.4 % 1.7-12.0 [facility] Neutrophils Auto (Bld) [#/Vo l]on 07-12-2023 Neutrophils (Bld) [#/Vol] 4.5 10 3/uL 1.4-6.5 [facility] Neutrophils/100 WBC Auto (Bl d)on 07-12-2023 Neutrophils/100 WBC (Bld) 57.4 % 43.0-75.0 [facility] No Panel Informationon 07-11 Eosinophils # (Auto) 0.1 10 3/uL 0.0-0.7 [facility] Immature Granulocyte # (Auto) 0.01 10 3/uL 0.00-0.03 [facility] Platelet mean volume Auto (B ld) [Entitic vol]on 07-12-2023 Platelet mean volume (Bld) [Entitic vol] 10.9 fL 9.5-13.5 [facility] Platelets Auto (Bld) [#/Vol] on 07-12-2023 Platelets (Bld) [#/Vol] 259 10 3/uL 150-450 [facility] RBC Auto (Bld) [#/Vol]on RBC (Bld) [#/Vol] 4.89 10 6/uL 4.20-5.40 [facility] Serum or plasma anion gap de terminationon 07-12-2023 Anion gap [Moles/Vol] 14.9 mmol/L [facility] Glucose - FINGER STICKon Glucose [Mass/Vol] 360 mg/dL [employer] Other CBC AUTO DIFFon 08-27-2022 BASO # 0.0 103/ul Normal 0.0-0.1 [facility] Comment on above: Performed By: #### C BC #### [facility] [address] [place] [address] Dr. Sarah Church Basophils/100 WBC (Bld) 0.5 % Normal 0.2-2.0 [facility] Comment on above: Performed By: #### C BC #### [facility] [address] [place] [address] Dr. Sarah Church EO # 0.2 103/ul Normal 0.0-0.7 [facility] Comment on above: Performed By: #### C BC #### [facility] [address] [place] [address] Dr. Sarah Church Eosinophils/100 WBC (Bld) 2.2 % Normal 0.9-7.0 [facility] Comment on above: Performed By: #### C BC #### [facility] [address] [place] [address] Dr. Sarah Church Erythrocyte distribution width (RBC) [Ratio] 12.5 % Normal 11.0-15.0 [facility] Comment on above: Performed By: #### C BC #### [facility] [address] [place] [address] Dr. Sarah Church Hematocrit (Bld) [Volume fraction] 44.1 % Normal 36.0-48.0 [facility] Comment on above: Performed By: #### C BC #### [facility] [address] [place] [address] Dr. Sarah Church Hemoglobin (Bld) [Mass/Vol] 15.1 g/dL Normal 12.0-16.0 [facility] Comment on above: Performed By: #### C BC #### [facility] [address] [place] [address] Dr. Sarah Church IG # 0.02 10e3/ul Normal 0.00-0.03 [facility] Comment on above: Performed By: #### C BC #### [facility] [address] [place] [address] Dr. Sarah Church IG % 0.2 % Normal 0.0-0.5 [facility] Comment on above: Performed By: #### C BC #### [facility] [address] [place] [address] Dr. Sarah Church LYMPH # 2.9 103/ul Normal 1.2-3.8 [facility] Comment on above: Performed By: #### C BC #### [facility] [address] [place] [address] Dr. Sarah Church Lymphocytes/100 WBC (Bld) 33.4 % Normal 20.5-60.0 [facility] Comment on above: Performed By: #### C BC #### [facility] [address] [place] [address] Dr. Sarah Church MANUAL DIFF REQ NO Normal [facility] Comment on above: Performed By: #### C BC #### [facility] [address] [address] [address] Sarah Church MCH (RBC) [Entitic mass] 29.1 pg Normal 26.7-34.0 [facility] Comment on above: Performed By: #### C BC #### [facility] [address] [address] [address] Sarah Church MCHC (RBC) [Mass/Vol] 34.2 g/dL Normal 29.9-35.2 [facility] Comment on above: Performed By: #### C BC #### [facility] [address] [place] [address] Dr. Sarah Church MCV (RBC) [Entitic vol] 85.0 fL Normal 81.0-99.0 [facility] Comment on above: Performed By: #### C BC #### [facility] [address] [place] [address] Dr. Sarah Church MONO # 0.6 103/ul Normal 0.3-0.8 [facility] Comment on above: Performed By: #### C BC #### [facility] [address] [place] [address] Dr. Sarah Church Monocytes/100 WBC (Bld) 6.8 % Normal 1.7-12.0 [facility] Comment on above: Performed By: #### C BC #### [facility] [address] [place] [address] Dr. Sarah Church NEUT # 4.9 103/ul Normal 1.4-6.5 [facility] Comment on above: Performed By: #### C BC #### [facility] [address] [place] [address] Dr. Sarah Church Neutrophils/100 WBC (Bld) 56.9 % Normal 43.0-75.0 [facility] Comment on above: Performed By: #### C BC #### [facility] [address] [place] [address] Dr. Sarah Church Platelet mean volume (Bld) [Entitic vol] 10.8 fL Normal 9.5-13.5 [facility] Comment on above: Performed By: #### C BC #### [facility] [address] [address] [address] Sarah Church PLT 276 103/ul Normal 150-450 [facility] Comment on above: Performed By: #### C BC #### [facility] [address] [place] [address] Dr. Sarah Church RBC 5.19 106/ul Normal 4.20-5.40 [facility] Comment on above: Performed By: #### C BC #### [facility] [address] [place] [address] Dr. Sarah Church WBC 8.6 103/ul Normal 4.0-11.0 [facility] Comment on above: Performed By: #### C BC #### [facility] [address] [place] [address] Dr. Sarah Church LIPID PROFILEon 08-27-2022 CHOL-HDL RATIO NORM SEE BELOW Normal [facility] Comment on above: Result Comment: 3.3 - 4.4 LOW RISK 4.4 - 7.1 AVERAGE RISK 7.1 - 11.0 MODERATE RISK >11.0 HIGH RISK Performed By: #### L IPID, CMP #### [facility] [address] [place] [address] Dr. Sarah Church Cholesterol [Mass/Vol] 110 mg/dL Normal <=200 [facility] Comment on above: Performed By: #### L IPID, CMP #### [facility] [address] [place] [address] Dr. Sarah Church Cholesterol in HDL [Mass/Vol] 33 mg/dL Critically low 40-60 [facility] Comment on above: Performed By: #### L IPID, CMP #### [facility] [address] [place] [address] Dr. Sarah Church Cholesterol in LDL [Mass/Vol] 58.0 mg/dL Normal [facility] Comment on above: Performed By: #### L IPID, CMP #### [facility] [address] [place] [address] Dr. Sarah Church Cholesterol.total/Ch olesterol in HDL [Mass ratio] 3.3 {ratio} Normal [facility] Comment on above: Performed By: #### L IPID, CMP #### [facility] [address] [address] [address] Sarah Church HDL NORMAL > or = 60 mg/dl - LOW CARDIOVASCULAR RISK <40 mg/dl - HIGH CARDIOVASCULAR RISK Normal [facility] Comment on above: Performed By: #### L IPID, CMP #### [facility] [address] [address] [address] Sarah Church LDL CALC NORMAL SEE BELOW Normal [facility] Comment on above: Result Comment: <100 mg/dl OPTIMAL 100 - 129 mg/dl NEAR OR ABOVE OPTIMAL 130 - 159 mg/dl BORDERLINE HIGH 160 - 189 mg/dl HIGH >190 mg/dl VERY HIGH Performed By: #### L IPID, CMP #### [facility] [address] [address] [address] Sarah Church Triglyceride [Mass/Vol] 95 mg/dL Normal <=150 [facility] Comment on above: Performed By: #### L IPID, CMP #### [facility] [address] [address] [address] Sarah Church VLDL CALC 19.0 mg/dL Normal [facility] Comment on above: Performed By: #### L IPID, CMP #### [facility] [address] [address] [address] Sarah Church PROF 14(COMP METB)on 023 Albumin [Mass/Vol] 3.3 g/dL Critically low 3.4-5.0 Th e [facility] Comment on above: Performed By: #### L IPID, CMP #### [facility] [address] [address] [address] Sarah Church Albumin/Globulin [Mass ratio] 0.8 {ratio} Normal [facility] Comment on above: Performed By: #### L IPID, CMP #### [facility] [address] [address] [address] Sarah Church ALP [Catalytic activity/Vol] 100 U/L Normal 46-116 [facility] Comment on above: Performed By: #### L IPID, CMP #### [facility] [address] [address] [address] Sarah Church ALT [Catalytic activity/Vol] 74 U/L Critically high 14-59 [facility] Comment on above: Performed By: #### L IPID, CMP #### [facility] [address] [address] [address] Sarah Church Anion gap [Moles/Vol] 13.2 mmol/L Normal [facility] Comment on above: Performed By: #### L IPID, CMP #### [facility] [address] [address] [address] Sarah Church AST [Catalytic activity/Vol] 42 U/L Critically high 15-37 [facility] Comment on above: Performed By: #### L IPID, CMP #### [facility] [address] [address] [address] Sarah Church Bilirubin [Mass/Vol] 0.4 mg/dL Normal 0.2-1.0 [facility] Comment on above: Performed By: #### L IPID, CMP #### [facility] [address] [address] [address] Sarah Church Calcium [Mass/Vol] 9.2 mg/dL Normal 8.5-10.1 [facility] Comment on above: Performed By: #### L IPID, CMP #### [facility] [address] [address] [address] Sarah Church Chloride [Moles/Vol] 99 mmol/L Normal 98-107 [facility] Comment on above: Performed By: #### L IPID, CMP #### [facility] [address] [address] [address] Sarah Church CO2 [Moles/Vol] 30.4 mmol/L Normal 21.0-32.0 [facility] Comment on above: Performed By: #### L IPID, CMP #### [facility] [address] [address] [address] Sarah Church Creatinine [Mass/Vol] 0.78 mg/dL Normal 0.55-1.02 [facility] Comment on above: Performed By: #### L IPID, CMP #### [facility] [address] [place] [address] Dr. Sarah Church EGFR-AF FILIPINO >60 Normal >=60 [facility] Comment on above: Performed By: #### L IPID, CMP #### [facility] [address] [address] [address] Sarah Church EGFR-NON AF FILIPINO >60 Normal >=60 [facility] Comment on above: Performed By: #### L IPID, CMP #### [facility] [address] [place] [address] Dr. Sarah Church Globulin (S) [Mass/Vol] 4.0 g/dL Normal [facility] Comment on above: Performed By: #### L IPID, CMP #### [facility] [address] [place] [address] Dr. Sarah Church Glucose [Mass/Vol] 255 mg/dL Critically high 74-106 [facility] Comment on above: Performed By: #### L IPID, CMP #### [facility] [facility] [address] [place] [address] Dr. Sarah Church Potassium [Moles/Vol] 3.6 mmol/L Normal 3.5-5.1 [facility] Comment on above: Performed By: #### L IPID, CMP #### [facility] [address] [place] [address] Dr. Sarah Church Protein [Mass/Vol] 7.3 g/dL Normal 6.4-8.2 [facility] Comment on above: Performed By: #### L IPID, CMP #### [facility] [address] [place] [address] Dr. Sarah Church Sodium [Moles/Vol] 139 mmol/L Normal 136-145 [facility] Comment on above: Performed By: #### L IPID, CMP #### [facility] [address] [place] [address] Dr. Sarah Church Urea nitrogen [Mass/Vol] 8.0 mg/dL Normal 7.0-18.0 [facility] Comment on above: Performed By: #### L IPID, CMP #### [facility] [address] [address] [address] Sarah Church Urea nitrogen/Creatinine [Mass ratio] 10.3 mg/mg Normal [facility] Comment on above: Performed By: #### L IPID, CMP #### [facility] [address] [address] [address] Sarah Church MG MAMM SCREEN 3D ROB CADon 07-20-2022 MG MAMM SCREEN 3D ROB CAD Patient: ZOILA RAMOS Exam Date: 07/20/2022 : 1970 Gender:F Ordering : DR SHAYY DELA CRUZ M.D. Admission #: [id number] Family : Order #: [id number] CLICK HERE TO VIEW EXAM RADIOLOGY REPORT PROCEDURE: MAMMOGRAM SCREENING 3D BILATERAL CAD COMPARISON: MAMMO ROB SCREEN W CAD DIG, 05/16/2012. INDICATIONS: Screening mammography Calculator Name NCI Breast Cancer Risk Assessment Tool 5 Year Breast Cancer Risk 1.20% Lifetime Breast Cancer Risk 10.80% Personal Breast Cancer No Personal Ovarian Cancer No Treatments None Family Cancers None LOCATION: [facility] BREAST COMPOSITION: Almost entirely fatty. FINDINGS: DIAGNOSTIC [...] M.D. on 07/21/2022 at 08:24 Normal [facility] PROF CHEM 8 (BAS METB)on Anion gap [Moles/Vol] 14.5 mmol/L Normal [facility] Comment on above: Performed By: #### B MP #### [facility] [address] [place], [place] [address] Dr. Sarah Church Calcium [Mass/Vol] 9.8 mg/dL Normal 8.5-10.1 [facility] Comment on above: Performed By: #### B MP #### [facility] [address] [place] [address] Dr. Sarah Church Chloride [Moles/Vol] 99 mmol/L Normal 98-107 [facility] Comment on above: Performed By: #### B MP #### [facility] [address] [place] [address] Dr. Sarah Church CO2 [Moles/Vol] 27.2 mmol/L Normal 21.0-32.0 [facility] Comment on above: Performed By: #### B MP #### [facility] [address] [place] [address] Dr. Sarah Church Creatinine [Mass/Vol] 0.80 mg/dL Normal 0.55-1.02 [facility] Comment on above: Performed By: #### B MP #### [facility] [address] [place] [address] Dr. Sarah Church EGFR-AF FILIPINO >60 Normal >=60 [facility] Comment on above: Performed By: #### B MP #### [facility] [address] [place] [address] Dr. Sarah Church EGFR-NON AF FILIPINO >60 Normal >=60 [facility] Comment on above: Performed By: #### B MP #### [facility] [address] [place] [address] Dr. Sarah Church Glucose [Mass/Vol] 458 mg/dL Critically high 74-106 [facility] Comment on above: Performed By: #### B MP #### [facility] [address] [place] [address] Dr. Sarah Church Potassium [Moles/Vol] 4.7 mmol/L Normal 3.5-5.1 [facility] Comment on above: Performed By: #### B MP #### [facility] [address] [place] [address] Dr. Sarah Church Sodium [Moles/Vol] 136 mmol/L Normal 136-145 [facility] Comment on above: Performed By: #### B MP #### [facility] [address] [address] [address] Sarah Church Urea nitrogen [Mass/Vol] 15.0 mg/dL Normal 7.0-18.0 [facility] Comment on above: Performed By: #### B MP #### [facility] [address] [address] [address] Sarah Church Urea nitrogen/Creatinine [Mass ratio] 18.8 mg/mg Normal [facility] Comment on above: Performed By: #### B MP #### [facility] [address] [address] [address] Sarah Church GLYCOHEMOGLOBIN A1Con 2022 ADA RECOMMENDATION SEE BELOW Normal [facility] Comment on above: Result Comment: ADA RECOMMENDED LIMIT 4.0 - 6.0 ADA THERAPEUTIC TARGET < 7.0 ACTION SUGGESTED > 7.0 Performed By: #### A 1C ####[facility] [address] [address]Dr. Sarah Church Glucose [Mass/Vol] 266 mg/dL Normal [facility] Comment on above: Performed By: #### A 1C ####[facility] [address] [address]Dr. Sarah Church HbA1c (Bld) [Mass fraction] 10.9 % Critically high 4.5-6.2 [facility] Comment on above: Performed By: #### A 1C ####[facility] [address] [address]Dr. Sarah Church XR HIP RT 2 3V [...] JAVAD ROB Date: 2022-04-06 21:15 Normal [facility] CBC AUTO DIFFon 11-05-2021 BASO # 0.1 103/ul Normal 0.0-0.1 [facility] Comment on above: Performed By: #### C BC #### [facility] [address] [address] [address] Sarah Church Basophils/100 WBC (Bld) 0.4 % Normal 0.2-2.0 [facility] Comment on above: Performed By: #### C BC #### [facility] [address] [address] [address] Sarah Church EO # 0.2 103/ul Normal 0.0-0.7 [facility] Comment on above: Performed By: #### C BC #### [facility] [address] [address] [address] Sarah Church Eosinophils/100 WBC (Bld) 1.3 % Normal 0.9-7.0 [facility] Comment on above: Performed By: #### C BC #### [facility] [address] [place] [address] Dr. Sarah Church Erythrocyte distribution width (RBC) [Ratio] 12.3 % Normal 11.0-15.0 [facility] Comment on above: Performed By: #### C BC #### [facility] [address] [place] [address] Dr. Sarah Church Hematocrit (Bld) [Volume fraction] 43.1 % Normal 36.0-48.0 [facility] Comment on above: Performed By: #### C BC #### [facility] [address] [place] [address] Dr. Sarah Church Hemoglobin (Bld) [Mass/Vol] 14.6 g/dL Normal 12.0-16.0 [facility] Comment on above: Performed By: #### C BC #### [facility] [address] [address] [address] Sarah Church IG # 0.04 10e3/ul Critically high 0.00-0.03 [facility] Comment on above: Performed By: #### C BC #### [facility] [address] [address] [address] Sarah Church IG % 0.3 % Normal 0.0-0.5 [facility] Comment on above: Performed By: #### C BC #### [facility] [address] [address] [address] Sarah Church LYMPH # 1.6 103/ul Normal 1.2-3.8 [facility] Comment on above: Performed By: #### C BC #### [facility] [address] [address] [address] Sarah Church Lymphocytes/100 WBC (Bld) 12.5 % Critically low 20.5-60.0 [facility] Comment on above: Performed By: #### C BC #### [facility] [address] [address] [address] Sarah Church MANUAL DIFF REQ NO Normal [facility] Comment on above: Performed By: #### C BC #### [facility] [address] [place] [address] Dr. Sarah Church MCH (RBC) [Entitic mass] 29.4 pg Normal 26.7-34.0 [facility] Comment on above: Performed By: #### C BC #### [facility] [address] [place] [address] Dr. Sarah Church MCHC (RBC) [Mass/Vol] 33.9 g/dL Normal 29.9-35.2 [facility] Comment on above: Performed By: #### C BC #### [facility] [address] [place] [address] Dr. Sarah Church MCV (RBC) [Entitic vol] 86.7 fL Normal 81.0-99.0 [facility] Comment on above: Performed By: #### C BC #### [facility] [address] [place] [address] Dr. Sarah Church MONO # 1.0 103/ul Critically high 0.3-0.8 [facility] Comment on above: Performed By: #### C BC #### [facility] [address] [place] [address] Dr. Sarah Church Monocytes/100 WBC (Bld) 7.7 % Normal 1.7-12.0 [facility] Comment on above: Performed By: #### C BC #### [facility] [address] [place], [place] [address] Dr. Sarah Church NEUT # 9.6 103/ul Critically high 1.4-6.5 [facility] Comment on above: Performed By: #### C BC #### [facility] [address] [place], [place] [address] Dr. Sarah Church Neutrophils/100 WBC (Bld) 77.8 % Critically high 43.0-75.0 [facility] Comment on above: Performed By: #### C BC #### [facility] [address] [address] [address] Sarah Church Platelet mean volume (Bld) [Entitic vol] 11.0 fL Normal 9.5-13.5 [facility] Comment on above: Performed By: #### C BC #### [facility] [address] [address] [address] Sarah Church PLT 220 103/ul Normal 150-450 [facility] Comment on above: Performed By: #### C BC #### [facility] [address] [address] [address] Sarah Church RBC 4.97 106/ul Normal 4.20-5.40 [facility] Comment on above: Performed By: #### C BC #### [facility] [address] [address] [address] Sarah Church WBC 12.4 103/ul Critically high 4.0-11.0 [facility] Comment on above: Performed By: #### C BC #### [facility] [address] [id number] Sarah Church GROUP A STREP CULTUREon S. pyogenes Ag Ql (Unsp spec) Culture Observations: NEGATIVE FOR GROUP A STREPTOCOCCUS. Normal [facility] Comment on above: Performed By: #### G RASTCX, SSCRN ####[facility] [address] [place], [place] [address]QdDr. Sarah Church POINT OF CARE GLUCOSEon Glucose [Mass/Vol] 214 mg/dL Critically high 74-106 [facility] Comment on above: Performed By: #### P OCGLUC #### [facility] [address] [address] [address] Sarah Church STREPT SCREENon 11-05-2021 STREP SCREEN A Negative Normal NEGATIVE [facility] Comment on above: Performed By: #### G RASTCX, SSCRN ####[facility] [address] [address]Dr. Sarah Church CBC AUTO DIFFon 10-16-2021 BASO # 0.1 103/ul Normal 0.0-0.1 [facility] Comment on above: Performed By: #### C BC #### [facility] [address] [place] [address] Dr. Sarah Church Basophils/100 WBC (Bld) 0.8 % Normal 0.2-2.0 [facility] Comment on above: Performed By: #### C BC #### [facility] [address] [place] [address] Dr. Sarah Church EO # 0.3 103/ul Normal 0.0-0.7 [facility] Comment on above: Performed By: #### C BC #### [facility] [address] [place] [address] Dr. Sarah Church Eosinophils/100 WBC (Bld) 3.4 % Normal 0.9-7.0 [facility] Comment on above: Performed By: #### C BC #### [facility] [address] [place] [address] Dr. Sarah Church Erythrocyte distribution width (RBC) [Ratio] 12.6 % Normal 11.0-15.0 [facility] Comment on above: Performed By: #### C BC #### [facility] [address] [place] [address] Dr. Sarah Church Hematocrit (Bld) [Volume fraction] 45.4 % Normal 36.0-48.0 [facility] Comment on above: Performed By: #### C BC #### [facility] [address] [place] [address] Dr. Sarah Church Hemoglobin (Bld) [Mass/Vol] 15.0 g/dL Normal 12.0-16.0 [facility] Comment on above: Performed By: #### C BC #### [facility] [address] [place] [address] Dr. Sarah Church IG # 0.02 10e3/ul Normal 0.00-0.03 [facility] Comment on above: Performed By: #### C BC #### [facility] [address] [place] [address] Dr. Sarah Church IG % 0.2 % Normal 0.0-0.5 [facility] Comment on above: Performed By: #### C BC #### [facility] [address] [place] [address] Dr. Sarah Church LYMPH # 2.7 103/ul Normal 1.2-3.8 [facility] Comment on above: Performed By: #### C BC #### [facility] [address] [place] [address] Dr. Sarah Church Lymphocytes/100 WBC (Bld) 31.0 % Normal 20.5-60.0 [facility] Comment on above: Performed By: #### C BC #### [facility] [address] [place] [address] Dr. Sarah Church MANUAL DIFF REQ NO Normal [facility] Comment on above: Performed By: #### C BC #### [facility] [address] [place] [address] Dr. Sarah Church MCH (RBC) [Entitic mass] 29.3 pg Normal 26.7-34.0 [facility] Comment on above: Performed By: #### C BC #### [facility] [address] [place] [address] Dr. Sarah Church MCHC (RBC) [Mass/Vol] 33.0 g/dL Normal 29.9-35.2 [facility] Comment on above: Performed By: #### C BC #### [facility] [address] [place] [address] Dr. Sarah Church MCV (RBC) [Entitic vol] 88.7 fL Normal 81.0-99.0 [facility] Comment on above: Performed By: #### C BC #### [facility] [address] [place] [address] Dr. Sarah Church MONO # 0.6 103/ul Normal 0.3-0.8 [facility] Comment on above: Performed By: #### C BC #### [facility] [address] [place] [address] Dr. Sarah Church Monocytes/100 WBC (Bld) 6.5 % Normal 1.7-12.0 [facility] Comment on above: Performed By: #### C BC #### [facility] [address] [place] [address] Dr. Sarah Church NEUT # 5.0 103/ul Normal 1.4-6.5 [facility] Comment on above: Performed By: #### C BC #### [facility] [address] [place] [address] Dr. Sarah Church Neutrophils/100 WBC (Bld) 58.1 % Normal 43.0-75.0 [facility] Comment on above: Performed By: #### C BC #### [facility] [address] [place] [address] Dr. Sarah Church Platelet mean volume (Bld) [Entitic vol] 11.0 fL Normal 9.5-13.5 [facility] Comment on above: Performed By: #### C BC #### [facility] [address] [place] [address] Dr. Sarah Church PLT 226 103/ul Normal 150-450 [facility] Comment on above: Performed By: #### C BC #### [facility] [address] [place] [address] Dr. Sarah Church RBC 5.12 106/ul Normal 4.20-5.40 [facility] Comment on above: Performed By: #### C BC #### [facility] [address] [place] [address] Dr. Sarah Church WBC 8.6 103/ul Normal 4.0-11.0 [facility] Comment on above: Performed By: #### C BC #### [facility] [address] [place], [place] [address] Dr. Sarah Church GLYCOHEMOGLOBIN A1Con 2021 ADA RECOMMENDATION SEE BELOW Normal [facility] Comment on above: Result Comment: ADA RECOMMENDED LIMIT 4.0 - 6.0 ADA THERAPEUTIC TARGET < 7.0 ACTION SUGGESTED > 7.0 Performed By: #### A 1C ####[facility] [address] [address]Dr. Sarah Church Glucose [Mass/Vol] 275 mg/dL Normal [facility] Comment on above: Performed By: #### A 1C ####[facility] [address] [address]Dr. Sarah Church HbA1c (Bld) [Mass fraction] 11.2 % Critically high 4.5-6.2 [facility] Comment on above: Performed By: #### A 1C ####[facility] [address] [address]Dr. Sarah Church LIPID PROFILEon 10-16-2021 CHOL-HDL RATIO NORM SEE BELOW Normal [facility] Comment on above: Result Comment: 3.3 - 4.4 LOW RISK 4.4 - 7.1 AVERAGE RISK 7.1 - 11.0 MODERATE RISK >11.0 HIGH RISK Performed By: #### L IPID, CMP ####[facility] [address] [address]Dr. Sarah Church Cholesterol [Mass/Vol] 159 mg/dL Normal <=200 [facility] Comment on above: Performed By: #### L IPID, CMP ####[facility] [address] [id number]. Sarah Church Cholesterol in HDL [Mass/Vol] 41 mg/dL Normal 40-60 [facility] Comment on above: Performed By: #### L IPID, CMP ####[facility] [address] [address]Dr. Sarah Church Cholesterol in LDL [Mass/Vol] 102.6 mg/dL Normal [facility] Comment on above: Performed By: #### L IPID, CMP ####[facility] [address] [address]Dr. Sarah Church Cholesterol.total/Ch olesterol in HDL [Mass ratio] 3.9 {ratio} Normal [facility] Comment on above: Performed By: #### L IPID, CMP ####[facility] [address] [id number]. Sarah Church HDL NORMAL > or = 60 mg/dl - LOW CARDIOVASCULAR RISK <40 mg/dl - HIGH CARDIOVASCULAR RISK Normal [facility] Comment on above: Performed By: #### L IPID, CMP ####[facility] [address] [address]Dr. Sarah Church LDL CALC NORMAL SEE BELOW Normal [facility] Comment on above: Result Comment: <100 mg/dl OPTIMAL 100 - 129 mg/dl NEAR OR ABOVE OPTIMAL 130 - 159 mg/dl BORDERLINE HIGH 160 - 189 mg/dl HIGH >190 mg/dl VERY HIGH Performed By: #### L IPID, CMP ####[facility] [address] [id number]. Sarah Church Triglyceride [Mass/Vol] 77 mg/dL Normal <=150 [facility] Comment on above: Performed By: #### L IPID, CMP ####[facility] [address] [address]Dr. Sarah Church VLDL CALC 15.4 mg/dL Normal [facility] Comment on above: Performed By: #### L IPID, CMP ####[facility] [address] [id number]. Sarah Church MICROALBUMIN, RAND URon 09-30 mALB 2.0 mg/L Normal <=30.0 [facility] Comment on above: Performed By: #### M ALBR #### [facility] [address] [id number] Sarah Church PROF 14(COMP METB)on 022 Albumin [Mass/Vol] 3.5 g/dL Normal 3.4-5.0 [facility] Comment on above: Performed By: #### L IPID, CMP ####[facility] [address] [address]Dr. Sarah Church Albumin/Globulin [Mass ratio] 0.8 {ratio} Normal [facility] Comment on above: Performed By: #### L IPID, CMP ####[facility] [address] [address]Dr. Sarah Church ALP [Catalytic activity/Vol] 85 U/L Normal 46-116 [facility] Comment on above: Performed By: #### L IPID, CMP ####[facility] [address] [address]Dr. Sarah Church ALT [Catalytic activity/Vol] 59 U/L Normal 14-59 [facility] Comment on above: Performed By: #### L IPID, CMP ####[facility] [address] [address]Dr. Sarah Church Anion gap [Moles/Vol] 15.1 mmol/L Normal [facility] Comment on above: Performed By: #### L IPID, CMP ####[facility] [address] [place], [place] [address]Dr. Sarah Church AST [Catalytic activity/Vol] 32 U/L Normal 15-37 [facility] Comment on above: Performed By: #### L IPID, CMP ####[facility] [address] [address]Dr. Sarah Church Bilirubin [Mass/Vol] 0.4 mg/dL Normal 0.2-1.0 [facility] Comment on above: Performed By: #### L IPID, CMP ####[facility] [address] [address]Dr. Sarah Church Calcium [Mass/Vol] 9.0 mg/dL Normal 8.5-10.1 [facility] Comment on above: Performed By: #### L IPID, CMP ####[facility] [address] [place], [place] [address]Dr. Sarah Church Chloride [Moles/Vol] 102 mmol/L Normal 98-107 [facility] Comment on above: Performed By: #### L IPID, CMP ####[facility] [address] [id number]. Sarah Church CO2 [Moles/Vol] 30.2 mmol/L Normal 21.0-32.0 [facility] Comment on above: Performed By: #### L IPID, CMP ####[facility] [address] [address]Dr. Sarah Church Creatinine [Mass/Vol] 0.81 mg/dL Normal 0.55-1.02 [facility] Comment on above: Performed By: #### L IPID, CMP ####[facility] [address] [address]Dr. Sarah Church EGFR-AF FILIPINO >60 Normal >=60 [facility] Comment on above: Performed By: #### L IPID, CMP ####[facility] [address] [place], [place] [address]Dr. Sarah Ranjit EGFR-NON AF FILIPINO >60 Normal >=60 [facility] Comment on above: Performed By: #### L IPID, CMP ####[facility] [address] [id number]. Sarah Church Globulin (S) [Mass/Vol] 3.9 g/dL Normal [facility] Comment on above: Performed By: #### L IPID, CMP ####[facility] [address] [address]Dr. Sarah Church Glucose [Mass/Vol] 218 mg/dL Critically high 74-106 [facility] Comment on above: Performed By: #### L IPID, CMP ####[facility] [address] [id number]. Sarah Church Potassium [Moles/Vol] 4.3 mmol/L Normal 3.5-5.1 [facility] Comment on above: Performed By: #### L IPID, CMP ####[facility] [address] [id number]. Sarah Ranjit Protein [Mass/Vol] 7.4 g/dL Normal 6.4-8.2 [facility] Comment on above: Performed By: #### L IPID, CMP ####[facility] [address] [id number]. Sarah Church Sodium [Moles/Vol] 143 mmol/L Normal [id number] [facility] Comment on above: Performed By: #### L IPID, CMP ####[facility] [id number] [place] [id number]. Sarah Church Urea nitrogen [Mass/Vol] 14.0 mg/dL Normal 7.0-18.0 [facility] Comment on above: Performed By: #### L IPID, CMP ####[facility] [id number] [place] [id number]. Sarah Church Urea nitrogen/Creatinine [Mass ratio] 17.2 mg/mg Normal [facility] Comment on above: Performed By: #### L IPID, CMP ####[facility] [id number] [place] [id number]. Sarah Church Vital Signs Date Time Vital Sign Value Performing Clinician Facility 08-07-2024 13:090400 Body height 157.48 cm Shayy Dela Cruz MD Work Phone: [facility] 08-07-2024 13:09-0400 Heart rate 85 /min Shayy Dela Cruz MD Work Phone: [facility] 08-07-2024 13:09-0400 Respiratory rate 18 /min Shayy Dela Cruz MD Work Phone: [facility] 08-07-2024 13:09-0400 SaO2% (BldA) [Mass fraction] 96 % Shayy Dela Cruz MD Work Phone: [facility] 06-14-2024 10:050 Body height 157.5 cm Nacho Patiño MD Work Phone: [facility] 06-14-2024 10:050 Body mass index (BMI) [Ratio] 38.59 kg/m2 Nacho Patiño MD Work Phone: [facility] 06-14-2024 10:21-0500 Body temperature 97.3 [degF] Nacho Patiño MD Work Phone: [facility] 06-14-2024 10:21-0500 Body weight 95.71 kg Nacho Patiño MD Work Phone: [facility] 06-14-2024 10:21-0500 Diastolic blood pressure 82 mm[Hg] Nacho Patiño MD Work Phone: [facility] 06-14-2024 10:21-0500 Heart rate 88 /min Nacho Patiño MD Work Phone: [facility] 06-14-2024 10:21-0500 SaO2% (BldA) [Mass fraction] 97 % Nacho Patiño MD Work Phone: [facility] 06-14-2024 10:21-0500 Systolic blood pressure 136 mm[Hg] Nacho Patiño MD Work Phone: [facility] 05-30-2024 10:48-0500 Body height 157.48 cm [facility] 05-30-2024 10:48-0500 Body mass index (BMI) [Ratio] 38.5 kg/m2 [facility] 05-30-2024 10:48-0500 Body weight 95.7 kg [facility] 05-30-2024 10:48-0500 Diastolic blood pressure 77 mm[Hg] [facility] 05-30-2024 10:48-0500 Heart rate 80 /min [facility] 05-30-2024 10:48-0500 Systolic blood pressure 133 mm[Hg] [facility] 02-23-2024 13:23-0400 Body height 157.48 cm [facility] 02-23-2024 13:23-0400 Body mass index (BMI) [Ratio] 38 kg/m2 [facility] 02-23-2024 13:23-0400 Body weight 94.37 kg [facility] 02-23-2024 13:23-0400 Diastolic blood pressure 78 mm[Hg] [facility] 02-23-2024 13:23-0400 Heart rate 75 /min [facility] 02-23-2024 13:23-0400 Respiratory rate 18 /min [facility] 02-23-2024 13:23-0400 SaO2% (BldA) [Mass fraction] 97 % [facility] 02-23-2024 13:23-0400 Systolic blood pressure 170 mm[Hg] [facility] 12-13-2023 13:03-0400 Body height 157.48 cm [facility] 12-13-2023 13:03-0400 Body mass index (BMI) [Ratio] 37.1 kg/m2 [facility] 12-13-2023 13:03-0400 Body weight 92.07 kg [facility] 12-13-2023 13:03-0400 Diastolic blood pressure 86 mm[Hg] [facility] 12-13-2023 13:03-0400 Heart rate 78 /min [facility] 12-13-2023 13:03-0400 Respiratory rate 18 /min [facility] 12-13-2023 13:03-0400 SaO2% (BldA) [Mass fraction] 96 % [facility] 12-13-2023 13:03-0400 Systolic blood pressure 153 mm[Hg] [facility] 12-05-2023 11:24-0400 Body height 157.48 cm [facility] 12-05-2023 11:24-0400 Body mass index (BMI) [Ratio] 36.9 kg/m2 [facility] 12-05-2023 11:24-0400 Body weight 91.62 kg [facility] 12-05-2023 11:24-0400 Diastolic blood pressure 75 mm[Hg] [facility] 12-05-2023 11:24-0400 Heart rate 80 /min [facility] 12-05-2023 11:24-0400 Systolic blood pressure 133 mm[Hg] [facility] 09-29-2023 13:44-0400 Diastolic blood pressure 76 mm[Hg] [facility] 09-29-2023 13:44-0400 Systolic blood pressure 130 mm[Hg] [facility] 09-29-2023 13:19-0400 Body height 157.48 cm [facility] 09-29-2023 13:19-0400 Body mass index (BMI) [Ratio] 38.7 kg/m2 [facility] 09-29-2023 13:19-0400 Body weight 95.9 kg [facility] 09-29-2023 13:19-0400 Heart rate 89 /min [facility] 09-29-2023 13:19-0400 Respiratory rate 18 /min [facility] 09-29-2023 13:19-0400 SaO2% (BldA) [Mass fraction] 98 % [facility] 09-06-2023 11:08-0400 Body height 157.48 cm [facility] 09-06-2023 11:08-0400 Body mass index (BMI) [Ratio] 37.6 kg/m2 [facility] 09-06-2023 11:08-0400 Body weight 93.44 kg [facility] 09-06-2023 11:08-0400 Diastolic blood pressure 72 mm[Hg] [facility] 09-06-2023 11:08-0400 Heart rate 89 /min [facility] 09-06-2023 11:08-0400 Systolic blood pressure 127 mm[Hg] [facility] 08-24-2023 15:08-0400 Body height 157.48 cm [facility] 08-24-2023 15:08-0400 Body mass index (BMI) [Ratio] 37.5 kg/m2 [facility] 08-24-2023 15:08-0400 Body weight 93.21 kg [facility] 08-19-2023 10:43-0400 Body height 157.48 cm MD Shayy Dela Cruz Work Phone: [facility] 08-19-2023 10:43-0400 Body mass index (BMI) [Ratio] 37.5 kg/m2 MD Shayy Dela Cruz Work Phone: [facility] 08-19-2023 10:43-0400 Body weight 93.09 kg MD Shayy Dela Cruz Work Phone: [facility] 08-19-2023 10:43-0400 Diastolic blood pressure 79 mm[Hg] MD Shayy Dela Cruz Work Phone: [facility] 08-19-2023 10:43-0400 Heart rate 83 /min MD Shayy Dela Cruz Work Phone: [facility] 08-19-2023 10:43-0400 Systolic blood pressure 135 mm[Hg] MD Shayy Dela Cruz Work Phone: [facility] 07-28-2023 14:22-0400 Body height 157.48 cm MD Shayy Dela Cruz Work Phone: [facility] 07-28-2023 14:22-0400 Body mass index (BMI) [Ratio] 37.6 kg/m2 MD Shayy Dela Cruz Work Phone: [facility] 07-28-2023 14:22-0400 Body weight 93.44 kg MD Shayy Dela Cruz Work Phone: [facility] 07-28-2023 14:22-0400 Diastolic blood pressure 84 mm[Hg] MD Shayy Dela Cruz Work Phone: [facility] 07-28-2023 14:22-0400 Heart rate 83 /min MD Shayy Dela Cruz Work Phone: [facility] 07-28-2023 14:22-0400 Respiratory rate 18 /min MD Shayy Dela Cruz Work Phone: [facility] 07-28-2023 14:22-0400 SaO2% (BldA) [Mass fraction] 97 % MD Shayy Dela Cruz Work Phone: [facility] 07-28-2023 14:22-0400 Systolic blood pressure 140 mm[Hg] MD Shayy Dela Cruz Work Phone: [facility] 07-19-2023 10:57-0400 Body height 157.48 cm MD Shayy Dela Cruz Work Phone: [facility] 07-19-2023 10:57-0400 Body mass index (BMI) [Ratio] 37.1 kg/m2 MD Shayy Dela Cruz Work Phone: [facility] 07-19-2023 10:57-0400 Body weight 92.07 kg MD Shayy Dela Cruz Work Phone: [facility] 07-19-2023 10:57-0400 Diastolic blood pressure 68 mm[Hg] MD Shayy Dela Cruz Work Phone: [facility] 07-19-2023 10:57-0400 Heart rate 89 /min MD Shayy Dela Cruz Work Phone: [facility] 07-19-2023 10:57-0400 Systolic blood pressure 132 mm[Hg] MD Shayy Dela Cruz Work Phone: [facility] 05-25-2023 11:00-0500 Body height 157.48 cm Cathie Scally Other [facility] 05-25-2023 11:00-0500 Body mass index (BMI) [Ratio] 37.23 kg/m2 Cathie Scally Other [facility] [facility] Other 05-25-2023 11:00-0500 Body weight 92.35 kg Cathie Scally Other [facility] 05-25-2023 11:00-0500 Diastolic blood pressure 71 mm[Hg] Cathie Scally Other [facility] 05-25-2023 11:00-0500 Respiratory rate 18 /min Cathie Scally Other [facility] Other 05-25-2023 11:00-0500 SaO2% (BldA) [Mass fraction] 95 % Cathie Scally Other [facility] Other 05-25-2023 11:00-0500 Systolic blood pressure 139 mm[Hg] Cathie Scally Other [facility] 04-15-2023 11:00-0500 Body height 157.48 cm Shayy Dela Cruz Other [facility] 04-15-2023 11:00-0500 Body mass index (BMI) [Ratio] 37.49 kg/m2 Shayy Dela Cruz Other [employer] Other 04-15-2023 11:00-0500 Body weight 92.99 kg Shayy Dela Cruz Other [facility] Other 04-15-2023 11:00-0500 Body weight 92.98 kg MD Shayy Dela Cruz Work Phone: [facility] 04-15-2023 11:00-0500 Diastolic blood pressure 84 mm[Hg] Shayy Dela Cruz Other [facility] 04-15-2023 11:00-0500 Systolic blood pressure 142 mm[Hg] Shayy Dela Cruz Other [facility] 06-22-2022 13:30-0500 Body height 157.48 cm Shayy Dela Cruz Other [employer] Other 06-22-2022 13:30-0500 Body mass index (BMI) [Ratio] 36.94 kg/m2 Shayy Dela Cruz Other [employer] Other 06-22-2022 13:30-0500 Body weight 91.63 kg Shayy Dela Cruz Other [employer] Other 06-22-2022 13:30-0500 Diastolic blood pressure 74 mm[Hg] Shayy Dela Cruz Other [employer] Other 06-22-2022 13:30-0500 SaO2% (BldA) [Mass fraction] 97 % Shayy Dela Cruz Other [employer] Other 06-22-2022 13:30-0500 Systolic blood pressure 112 mm[Hg] Shayy Dela Cruz Other [facility] Other Encounters Encounter Date Encounter Type Care Provider Facility Start: 08-07-2024 End: 08-07-2024 ambulatory Shayy Dela Cruz MD Work Phone: [facility] Work Phone: Start: 08-07-2024 End: 08-07-2024 Patient encounter procedure Shayy Dela Cruz MD Work Phone: [facility] Work Phone: Start: 07-19-2024 Non-patient / Non-visit Shayy Dela Cruz MD Work Phone: [facility] Work Phone: Start: 07-05-2024 End: 07-05-2024 ambulatory Shayy Dela Cruz MD Work Phone: [facility] Work Phone: Start: 07-05-2024 End: 07-05-2024 Departed Referred Shayy Dela Cruz MD Work Phone: [facility] Start: 06-21-2024 Non-patient / Non-visit Shayy Dela Cruz MD Work Phone: [facility] Work Phone: Start: 06-20-2024 Non-patient / Non-visit Shayy Dela Cruz MD Work Phone: [facility] Work Phone: Start: 06-19-2024 End: 06-19-2024 ambulatory [facility] Start: 06-19-2024 Non-patient / Non-visit Shyay Dela Cruz MD Work Phone: [facility] Work Phone: Start: 06-14-2024 End: 06-14-2024 Office outpatient new 30 minutes Nacho Patiño MD Work Phone: [facility] Comment on above: 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) Start: 06-14-2024 End: 06-14-2024 ambulatory NACHO PATIÑO [facility] Start: 06-13-2024 Non-patient / Non-visit Shayy Dela Cruz MD Work Phone: [facility] Work Phone: Start: 06-12-2024 Non-patient / Non-visit Shayy Dela Cruz MD Work Phone: [facility] Work Phone: Start: 06-07-2024 Non-patient / Non-visit Shayy Dela Cruz MD Work Phone: [facility] Work Phone: Start: 06-01-2024 Non-patient / Non-visit Shayy Dela Cruz MD Work Phone: [facility] Work Phone: Start: 05-30-2024 Patient encounter status Shayy Dela Cruz MD Work Phone: [facility] Start: 05-30-2024 End: 05-30-2024 ambulatory [facility] Work Phone: Start: 05-30-2024 End: 05-30-2024 Encounter for general adult medical examination without abnormal findings Shayy Dela Cruz MD Work Phone: [facility] Start: 05-30-2024 End: 05-30-2024 Patient encounter procedure [facility] Work Phone: Start: 05-24-2024 End: 05-24-2024 ambulatory [facility] Work Phone: Start: 05-24-2024 End: 05-24-2024 Patient encounter procedure [facility] Work Phone: Start: 05-16-2024 Non-patient / Non-visit [facility] Work Phone: Start: 05-07-2024 Non-patient / Non-visit [facility] Work Phone: Start: 04-19-2024 End: 04-19-2024 Patient encounter procedure [facility] Work Phone: Start: 02-28-2024 Non-patient / Non-visit [facility] Work Phone: Start: 02-23-2024 End: 02-23-2024 [facility] Work [facility]: Start: 02-23-2024 End: 02-23-2024 Patient encounter procedure HEEL DIPPER Cathie Angulo Work Phone: [facility] Work Phone: Start: 02-23-2024 End: 02-23-2024 ambulatory [facility] Work Phone: Start: 02-23-2024 End: 02-23-2024 Patient encounter procedure [facility] Work Phone: Start: 01-17-2024 End: 01-17-2024 ambulatory [facility] Work Phone: Start: 01-17-2024 End: 01-17-2024 Patient encounter procedure [facility] Work Phone: Start: 12-13-2023 End: 12-13-2023 ambulatory [facility] Work Phone: Start: 12-13-2023 End: 12-13-2023 Patient encounter procedure [facility] Work Phone: Start: 12-05-2023 End: 12-05-2023 ambulatory [facility] Work Phone: Start: 12-05-2023 End: 12-05-2023 Patient encounter procedure [facility] Work Phone: Start: 11-07-2023 End: 11-07-2023 ambulatory [facility] Work Phone: Start: 11-07-2023 End: 11-07-2023 Patient encounter procedure [facility] Work Phone: Start: 09-29-2023 End: 09-29-2023 ambulatory [facility] Work Phone: Start: 09-29-2023 End: 09-29-2023 Patient encounter procedure [facility] Work Phone: Start: 09-06-2023 End: 09-06-2023 ambulatory [facility] Work Phone: Start: 09-06-2023 End: 09-06-2023 Patient encounter procedure [facility] Work Phone: Start: 08-24-2023 End: 08-24-2023 ambulatory [facility] Work Phone: Start: 08-24-2023 End: 08-24-2023 Patient encounter procedure [facility] Work Phone: Start: 08-19-2023 End: 08-19-2023 ambulatory MD Shayy Dela Cruz Work Phone: [facility] Work Phone: Start: 08-19-2023 End: 08-19-2023 Patient encounter procedure MD Shayy Dela Cruz Work Phone: [facility] Work Phone: Start: 07-28-2023 End: 07-28-2023 ambulatory MD Shayy Dela Cruz Work Phone: [facility] Work Phone: Start: 07-28-2023 End: 07-28-2023 Patient encounter procedure MD Shayy Dela Cruz Work Phone: [facility] Work Phone: Start: 07-19-2023 End: 07-19-2023 ambulatory MD Shayy Dela Cruz Work Phone: [facility] Work Phone: Start: 07-19-2023 End: 07-19-2023 Patient encounter procedure MD Shayy Dela Cruz Work Phone: [facility] Work Phone: Start: 07-12-2023 Non-patient / Non-visit MD Qi Dela Cruz Work Phone: [facility] [employer] Work Phone: Start: 06-14-2023 End: 06-14-2023 ambulatory MD Shayy Dela Cruz Work Phone: [facility] Work Phone: Start: 06-14-2023 End: 06-14-2023 Patient encounter procedure MD Shayy Dela Cruz Work Phone: [facility] Work Phone: Start: 06-06-2023 End: 06-06-2023 ambulatory Shayy Dela Cruz Other [employer] Other Start: 06-06-2023 Telephone encounter Shayy Dela Cruz [facility] Start: 05-25-2023 [facility]QHC visit new patient Cathie Sheikh y [facility] Start: 05-25-2023 End: 05-25-2023 ambulatory MD Shayy Dela Cruz Work Phone: [facility] [employer] Other Start: 05-25-2023 End: 05-25-2023 Discharged Recurring MD Shayy Dela Cruz Work Phone: [facility] Work Phone: Start: 05-25-2023 Registered Recurring MD [facility]ayy Del[facility] Cruz [facility] Work Phone: Start: 05-25-2023 End: 05-25-2023 Patient encounter procedure MD Shayy Dela Cruz Work Phone: [facility]- Start: 05-12-2023 End: 05-12-2023 ambulatory Shayy Dela Cruz Other [employer] Other Start: 05-12-2023 Telephone encounter Shayy Dela Cruz [facility] Start: 05-10-2023 End: 05-10-2023 ambulatory Shayy Dela Cruz Other [employer] Other Start: 05-10-2023 Telephone encounter Shayy Dela Cruz [facility] Start: 04-22-2023 End: 04-22-2023 ambulatory Shayy Dela Cruz Other [employer] Other Start: 04-22-2023 Telephone encounter Shayy Dela Cruz [facility] Start: 04-20-2023 End: 04-20-2023 ambulatory Lynne Austint Other [employer] Other Start: 04-20-2023 Telephone encounter Lynne Fitt [facility] Start: 04-18-2023 End: 04-18-2023 ambulatory Lynne Austint Other [employer] Other Start: 04-18-2023 Telephone encounter Lynne Austint [facility] Start: 04-15-2023 End: 04-15-2023 ambulatory Shayy Dela Cruz Other [employer] Other Start: 04-15-2023 Office outpatient vi sit 15 minutes Shayy Dela Cruz [facility] Start: 04-15-2023 End: 04-15-2023 Patient encounter procedure MD Shayy Dela Cruz Work Phone: [facility] Work Phone: Start: 04-06-2023 End: 04-06-2023 ambulatory Shayy Dela Cruz Other [employer] Other Start: 04-06-2023 Telephone encounter Shayy Dela Cruz [facility] Start: 02-25-2023 End: 02-25-2023 ambulatory Shayy Dela Cruz Other [employer] Other Start: 02-25-2023 Telephone encounter Shayy Dela Cruz [facility] Start: 10-29-2022 End: 10-29-2022 ambulatory Shayy Dela Cruz Other [employer] Other Start: 10-29-2022 Telephone encounter Shayy Dela Cruz [facility] Start: 08-27-2022 End: 08-28-[address] SHAYY DELA CRUZ Facility:[facility] Start: 07-20-2022 End: 07-21-[address] SHAYY DELA CRUZ Facility:[facility] Start: 07-19-2022 End: 07-19-2022 ambulatory Shayy Dela Cruz Other [employer] Other Start: 07-19-2022 Telephone encounter Shayy Dela Cruz [facility] Start: 07-12-2022 End: 07-13-[address] SHAYY DELA CRUZ Facility:[facility] Start: 07-05-2022 End: 07-05-2022 ambulatory Shayy Dela Cruz Other [employer] Other Start: 07-05-2022 Telephone encounter Shayy Dela Cruz [facility] Start: 06-28-2022 End: 06-28-2022 ambulatory Shayy Dela Cruz Other [employer] Other Start: 06-28-2022 Telephone encounter Shayy Dela Cruz [facility] Start: 06-22-2022 End: 06-22-2022 ambulatory Shayy Dela Cruz Other [employer] Other Start: 06-22-2022 Office outpatient vi sit 15 minutes Shayy Dela Cruz [facility] Start: 05-27-2022 End: 05-27-2022 ambulatory Shayy Dela Cruz Other [facility] [employer] Other Start: 05-27-2022 Telephone encounter Shayy Dela Cruz [facility] Start: 05-19-2022 End: 05-20-[address] [...] Start: 05-10-2017 End: 05-11-2017 Ambulatory DEFAULT PHYSICIAN Facility:[facility] Start: 05-05-2017 End: 05-06-2017 Ambulatory DEFAULT PHYSICIAN Facility:[facility] Procedures Date Procedure Procedure Detail Performing Clinician History of amputatio n of lesser toe H/O amputation of lesser toe Shayy Dela Cruz MD Work Phone: Comment on above: left foot Plan of Treatment Date Care Activity Detail Author Start: 01-01-2024 Influenza vaccination Influenza Vaccine [facility] [employer] [facility] Start: 01-15-2022 Administration of varicella zoster vaccine Zoster (Shingles) Vaccine (1 of 2) [facility] [employer] [facility] Start: 01-15-1993 Screening for malignant neoplasm [facility] cervix [facility] Start: 01-15-1991 DTaP,Tdap and Td Vaccines (1 - Tdap) DTaP,Tdap and Td Vaccines (1 - Tdap) [facility] [employer] [facility] Start: 01-15-1990 Adult BMI Screening [facility] Start: 1984 Depression Screening Depression Screening [facility] Start: 1984 Tobacco Screening Tobacco Screening [facility] Comprehensive metabo lic 2000 panel - Serum or Plasma [facility] MG Breast - bilatera l Screening [facility] Immunizations Immunization Date Immunization Notes Care Provider Fa melinda 02-01-2022 influenza virus vaccine, split virus (incl. purified surface antigen) Shayy Dela Cruz Other [employer] Other 02-01-2022 influenza virus vaccine, unspecified formulation MD Shayy Dela Cruz Work Phone: [facility] Payers Date Payer Category Payer Medicare HMO ANTH MEDICARE [id number] 2017 Medicaid MEDICAID [facility] [id number] 2017 Unknown [id number] 1972 Unknown [id number] 1972 Unknown [id number] 1972 Unknown [id number] 1972 Unknown [id number] 1972 Unknown [id number] 1972 Unknown [id number] 1972 Unknown [id number] 1972 Unknown [id number] 1972 Unknown [id number] 1972 Unknown [id number] 1957 Medicaid [id number] 1957 Medicare [id number] Medicare Medicare [id number] Unknown Social History Date Type Detail Facility Unknown if ever smoked [facility] [employer] Other Start: 06-14-2024 Sex Assigned At [employer] Other Start: 1970 Sex Assigned At Female [facility] Start: 07-19-2023 End: 05-25-2024 Tobacco smoking status NHIS Never smoked tobacco (finding) [facility] Start: 05-24-2024 End: 08-07-2024 Sex Female (finding) [facility] [facility] Start: 06-14-2024 Tobacco use and exposure Smokeless tobacco non-user [facility] [employer] [facility] Start: 06-14-2024 Alcoholic beverage intake Lifetime non-drinker (finding) [facility] Start: 06-14-2024 History of Social function [facility] Within the past 12 months we worried whether our food would run out before we got money to buy more. Never True [facility] Start: 1970 Sex assigned at Not on file [facility] NEGATED: Highlighted row [facility] Medical Equipment Procedure Code Equipment Code [...] scheduled for 06/21/[address] Bruce at [facility]. She had EKG, CXR, and labs [...] scheduled for 06/21/[address] Bruce at [facility]. She had EKG, CXR, and labs [...] Active Problem List Diagnosis Coronary arteriosclerosis in [place] artery Old myocardial infarction Sinusitis Type 1 [...] is normal sized. (more content not included)... [facility] 06-14-2024 Evaluation + Plan note Associated Problem(s): Gangrene of toe of left foot ([facility]) Osteomyelitis and gangrenous changes of the left second and third and may be the fourth toe.She has normal PVR with toe pressure and normal HIEU and toe pressure index.I discussed with her that there is no VASc intervention needed at this time. She needs his aggressive blood sugar control IV antibiotics likely toe amputation by podiatry and risk factors modification. [facility] 06-14-2024 Miscellaneous Notes Associated Problem(s): Gangrene of toe of left foot ([facility]) Osteomyelitis and gangrenous changes of the left [...] risk factors modification. documented in this encounter [facility] 06-14-2024 History of Presen t illness Narrative [...] Past Medical History: Diagnosis Date Diabetes mellitus ([facility]) Past Surgical History: No past [...] Interpersonal Safety: Unknown (06/23/2023) Received from [facility] Fear of Current or [...] Nacho Patiño MD, SELMA, RPVI, FSVS, FACS [facility] This note was created with the assistance of a speech recognition program. While intending to generate a timely document that accurately reflects the content of the visit, no guarantee can be provided that every grammatical or spelling mistake has been or will be identified or corrected. Thank you for your understanding. documented in this encounter [facility] 05-24-2024 Evaluation note Diagnosis Onset Date Resolution [...] 1:05pm Vitamin D deficiency acute 2024 1:05pm [facility] Work Phone: 1(510) 234-236312-19-2024 Evaluation note* Diagnosis Onset Date Resolution Status Admit Date Type 2 diabetes mellitus acute April 19, 2024 2:03pm [facility] Work Phone: 1(638) 117-372012-19-2024 Evaluation note* Diagnosis Onset Date Resolution Status Admit Date Type 2 diabetes mellitus acute April 19, 2024 2:03pm Type 2 diabetes mellitus acute May 24, 2024 12:54pm [facility] Work Phone: 1(354) 715-335712-19-2024 Evaluation note* Diagnosis Onset Date Resolution Status Admit Date Type 2 diabetes mellitus acute April 19, 2024 2:03pm Type 2 diabetes mellitus acute May 24, 2024 12:54pm Colon cancer screening acute Chente barragan 2024 10:42am Long-term insulin use acute Nic gloria 2024 10:42am Type 2 diabetes mellitus acute May 30, 2024 10:42am Wellness examination acute Geovanny pacheco 2024 10:42am [facility] Work Phone: 1(356) 471-539602-05-2024 Evaluation note* Encounter Date Diagnosis Assessment Notes Treatment Notes Treatment Clinical Notes Jun, Controlled type 2 diabetes mellitus with hyperglycemia, unspecified whether custodial insulin use (ICD-10 - E11.65) [facility] Other 01-24-2024 Evaluation note* Encounter Date Diagnosis [...] issues. 6. Prescriptions: New patient 05-25-2023 uses [facility]. May, Vitamin D deficiency (ICD-10 - E55.9) [...] Instructions material was published to portal May, intermediate current use of insulin (ICD-10 - Z79.4) May, BMI 37.0-37.9, adult (ICD-10 - Z68.37) May, Other 05/25/2023 The patient was given a Dexcom G7 sensor sample and an [employer]. She was taught how to use the [...] educating the patient by Nguyễn Norwood RN, [facility]. [facility] Other 12-15-2023 Evaluation note* Encounter Date Diagnosis Assessment Notes Treatment Notes Treatment Clinical Notes Apr, Type 2 diabetes mellitus with hyperglycemia (ICD-10 - E11.65) Rx handwritten for diabetic shoes. Pt agrees to referral to specialty clinic. Continue present meds and discussed healthy diet in meantime. 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 She declines and will continue meds, followup in 3 months, and recheck labs at that time. She is eating more of a keto diet and is certain that is helping her A1C improve. Jun, Screening mammogram for breast cancer (ICD-10 - Z12.31) Zoila will call for an appt [facility] Other [id number] NotePROCEDURE: XR FOOT LT MIN 3 VIEWS [...] Electronically authenticated by: NARINDER LAN Date: 2022-04-15 06:08[facility]09-12-2022 NotePROCEDURE: XR TOES RT MIN 2 V HISTORY: Pain of toe of right foot ; first toe pain following injury COMPARISON: None. FINDINGS: BONES:No fracture, acute abnormality, or significant arthropathy. SOFT TISSUES:No visible soft tissue swelling. EFFUSION:None visible. OTHER: Negative. IMPRESSION: 1. No acute bone abnormality. 2. Mild degenerative joint disease. Electronically authenticated by: NARINDER LAN Date: 2022-01-11 18:48[facility] complaint+Reason for visit Narrative* Chief Complaint 3 Month Follow Up Referral Dr. Negro LAGUERRE download [facility] Work Phone: chief complaint+Reason for visit Narrative* Chief Complaint 3 Month Follow Up Referral Dr. Negro LAGUERRE download Reason for Visit Type 2 diabetes holli [facility] Work Phone: chief complaint+Reason for visit Narrative* Chief Complaint Referral Dr. Negro LAGUERRE download 3 Month Check up Reason for Visit Type 2 diabetes holli [facility] Work Phone: chief complaint+Reason for visit Narrative* Chief Complaint Referral Dr. Negro LAGUERRE download 3 Month Check up amrik reader Reason for Visit Type 2 diabetes holli [facility] Right wrist fracture Type 2 diabetes mellitus [facility] Work Phone: chief complaint+Reason for visit [...] mellitus Vitamin D deficiency Gastroesophageal reflux disease [facility] Work Phone: Evaluation noteNo InformationNort [facility] Other evaluation noteNo assessment information available [facility] Work Phone: evaluation note* Diagnosis Onset Date Resolution Status Type 2 diabetes mellitus acu te [facility] Work Phone: evaluation note* Diagnosis Onset Date Resolution Status Type 2 diabetes mellitus acu te Right wrist fracture acute Type 2 diabetes mellitus acu te [facility] Work Phone: evaluation note* Diagnosis Onset Date Resolution Status Type 2 diabetes mellitus acu te Right wrist fracture acute Type 2 diabetes mellitus acu te BMI 37.0-37.9, adult acute Dietary counseling and surveillance acute History of myocardial infarction acute HTN (hypertension) acute Hyperlipidemia acute Long-term insulin use acute Type 2 diabetes mellitus acu te Vitamin D deficiency acute Gastroesophageal reflux disease acute [facility] Work Phone: evaluation note* Diagnosis Onset [...] acute Type 2 diabetes mellitus acu te [facility] Work Phone: evaluation note* Diagnosis Onset [...] acute Type 2 diabetes mellitus acu te [facility] Work Phone: evaluation note* Diagnosis Onset [...] acute Type 2 diabetes mellitus acu te [facility] Work Phone: evaluation note* Diagnosis Onset [...] te Screening mammogram for breast cancer acute [facility] Work Phone: evaluation note* Diagnosis Onset [...] mellitus acu te Vitamin D deficiency acute [facility] Work Phone: evaluation note* Diagnosis Onset [...] acute Type 2 diabetes mellitus acu te [facility] Work Phone: evaluation note* Diagnosis Onset [...] mellitus acu te Vitamin D deficiency acute [facility] Work Phone: Evaluation note* Diagnosis Gangrene of toe of left foot ([facility] Primary [facility] in [facility] encounter [facility] SystemHistory general Narrative - Reported* Type Description Date Medical History Herpes labialis Medical History Candidiasis of mouth Medical History Type 2 diabetes holli itus with diabetic polyneuropathy, unspecified whether custodial insulin use Medical History Controlled type 2 di abetes mellitus with hyperglycemia, unspecified whether custodial insulin use Medical History Obesity Medical History Dyslipidemia Medical History CAD in [place] artery Medical History Asthma, intermittent Medical History [...] History appendectomy Surgical History 7 stents 1999 [facility] Other Hisolft general Narrative - Reported* Type Description Date Medical History Herpes labialis Medical History Candidiasis of mouth Medical History Type 2 diabetes holli itus with diabetic polyneuropathy, 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 Medical History Controlled type 2 di abetes mellitus with hyperglycemia, unspecified whether custodial insulin use Medical History Obesity Medical History Dyslipidemia Medical History CAD in [place] artery Medical History Asthma, intermittent Medical History [...] stents 1999 Hospitalization History see surgical history [facility] Other Hisbmyl general Narrative - Reported* Type Description Date Medical History Herpes labialis Medical History Candidiasis of mouth Medical History Type 2 diabetes holli itus with diabetic polyneuropathy, 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 Medical History Controlled type 2 di abetes mellitus with hyperglycemia, unspecified whether custodial insulin use Medical History Obesity Medical History Dyslipidemia Medical History CAD in [place] artery Medical History Asthma, intermittent Medical History [...] coronary 1999 Hospitalization History see surgical history [facility] Other InstructionsNot on filedocumented in this encounter [employer] Summary Purpose Family History Relationship Condition Age [...] Name Jose De Jesus Referring Provider Specialty [facility] Referred Organization [facility] Referred Provider Marcia Mendes Referred Address [address],[place], [place],[address] Referred Provider Specialty Nurse Huey saldaña Referral [...] section and content) DATE CREATED AUTHOR 10/25/2017 [facility] DATE CREATED AUTHOR AUTHOR'S ORGANIZ ATION 09/03/2022 [facility] DATE CREATED AUTHOR AUTHOR'S ORGANIZ ATION 06/16/2024 [facility] DATE CREATED AUTHOR AUTHOR'S ORGANIZ ATION 06/30/2024 [facility] DATE CREATED AUTHOR AUTHOR'S ORGANIZ ATION 07/13/2024 [facility] REASON FOR VISIT (unrecogniz ed [...] End: May 24, 2024 Cathiesay Vargas , HEEL DIPPER Active Star t: May 24, 2024 End: [...] End: August 24, 2023 Cathie Vargas , HEEL DIPPER Active Star t: August 24, 2023 End: August 24, 2023 Team Status: Inactive Member Role Status Dates Shayy Dela Cruz MD Primary Care Provide r, Attending Provider Active Start: September 06, 2023 End: September 06, 2023 Team Status: Inactive Member Role Status Dates Shayy Dela Cruz MD Primary Care Provider Active Start: September 29, 2023 End: September 29, 2023 Cathie Vargas , HEEL DIPPER Attending Provider Active Start: September 29, 2023 End: September 29, 2023 Team Status: Inactive Member Role Status Dates Shayy Dela Cruz MD Primary Care Provider Active Start: November 07, 2023 End: November 07, 2023 Curtis Norwood RN Attending Provider Active St art: November 07, 2023 End: November 07, 2023 Cathie Vargas , HEEL DIPPER Active Star t: November 07, 2023 End: [...] End: July 28, 2023 Cathie Vargas , HEEL DIPPER Attending Provider Active Start: July 28, 2023 End: July 28, 2023 Team Status: Inactive Member Role Status Dates Shayy Dela Cruz MD Attending Provider Active St art: April 15, 2023 End: April 15, 2023 Team Status: Inactive Member Role Status Dates Cathie Vargas , HEEL DIPPER Attending Provider Active Start: May 25, 2023 [...] End: June 14, 2023 Cathie Vargas , HEEL DIPPER Active Star t: June 14, 2023 End: [...] End: December 13, 2023 Cathie Vargas , HEEL DIPPER Attending Provider Active Start: December 13, 2023 End: December 13, 2023 Team Status: Inactive Member Role Status Dates Shayy Dela Cruz MD Primary Care Provider Active Start: January 17, 2024 End: January 17, 2024 Cathie Vargas , HEEL DIPPER Active Star t: January 17, 2024 End: January 17, 2024 Brittani Collier RN Attending Provider Active Start: January 17, 2024 End: January 17, 2024 Team Status: Inactive Member Role Status Dates Shayy Dela Cruz MD Primary Care Provider Active Start: February 23, 2024 End: February 23, 2024 Cathie Vargas , FATEMEH Attending Provider Active [...] BE BASED ON THE PRIMARY CLINICAL RECORDS. [facility] [employer] [facility]. provides no warranty or guarantee of the accuracy or completeness of information in this document.
--- NOTE | 2024-08-17 15:05 | ED_ITS ---
HPI HPI - General Adult General Chief complaint: Extremity Problem, Nontraumatic Stated complaint: RIGHT HIP PAIN Time Seen by Provider: 08/17/24 14:57 Source: patient Mode of arrival: walk-in History of Present Illness HPI narrative: 54-year-old female presents chief complaint of right buttock pain. Denies any known injury or trauma. She states she woke yesterday with the pain took ibuprofen and used ice and the pain did improve. States woke up this morning with a knot like pain in the right butt cheek. Denies any injury or trauma. No obvious swelling or injury noted. She has not had a history of sciatica and denies any radiation of the pain states the pain is in the right buttock. Related Data Home Medications ?Medication ?Instructions ?Recorded ?Confirmed albuterol sulfate 90 mcg/actuation 2 inh inhalation PRN PRN shortness 12/31/22 06/19/24 aerosol inhaler of breath or wheezing aspirin 81 mg capsule 81 mg PO DAILY 12/31/22 06/19/24 atorvastatin 40 mg tablet 40 mg PO DAILY 12/31/22 06/19/24 carvedilol 6.25 mg tablet 6.25 mg PO Q12H 12/31/22 07/05/24 esomeprazole magnesium 40 mg 40 mg PO Q24H 12/31/22 06/19/24 capsule,delayed release fluticasone propionate 110 3 puff inhalation PRN PRN 12/31/22 07/05/24 mcg/actuation HFA aerosol inhaler bronchospasm (Flovent HFA) glipizide 10 mg tablet 5 mg PO BID 12/31/22 07/05/24 insulin glargine U-300 conc 300 95 unit subcut QAM 12/31/22 07/05/24 unit/mL (1.5 mL) subcutaneous pen (Toujeo SoloStar U-300 Insulin) insulin lispro 100 unit/mL 1 sliding scale dose subcut TID 12/31/22 07/05/24 subcutaneous pen losartan 25 mg tablet 25 mg PO DAILY 12/31/22 07/05/24 metformin 1,000 mg tablet 500 mg PO BID 12/31/22 07/05/24 famotidine 20 mg tablet 20 mg PO QPM 04/19/24 07/05/24 nitroglycerin 0.4 mg sublingual 0.4 mg sublingual Q5M PRN chest 04/19/24 06/19/24 tablet pain fluticasone propionate 50 2 spray intranasal DAILY 06/19/24 07/05/24 mcg/actuation nasal spray,suspension hydrocodone 5 mg-acetaminophen 325 1 tab PO Q6H PRN pain 06/19/24 07/05/24 mg tablet Previous Rx's ?Medication ?Instructions ?Recorded amoxicillin 875 mg-potassium 1 tab PO Q12H #20 tabs 06/07/24 clavulanate 125 mg tablet sulfamethoxazole 800 1 tab PO BID #20 tabs 06/07/24 mg-trimethoprim 160 mg tablet (Bactrim DS) ondansetron 4 mg disintegrating 4 mg PO Q6H PRN nausea and 06/19/24 tablet vomiting #20 tabs cyclobenzaprine 10 mg tablet 10 mg PO TID PRN muscle spasm #14 08/17/24 tabs Allergies Allergy/AdvReac Type Severity Reaction Status Date / Time tomato Allergy Severe Nausea Verified 06/19/24 17:29 latex Allergy Intermediate itch Verified 06/19/24 17:29 insulin lispro Allergy Mild Rash Verified 06/19/24 17:29 codeine Allergy Vomiting Verified 06/19/24 17:29 Opioid HPI Opioid Management Most Recent Opioid Data: Last Pain Scale 10 08/17/24 15:17 08/17/24 Last MAR Pain Assessment 08/17/24 15:17 Review of Systems ROS Status of ROS 10 or more systems reviewed and unremark able except as noted in history and below PFSH PFSH Medical History (Updated 08/17/24 @ 15:32 by Izzy Fair) Menopause ?Z78.0 - Asymptomatic menopausal state (ICD-10) Deep vein thrombosis ?I82.409 - Acute embolism and thrombosis of unspecified deep veins of unspecified lower extremity (ICD-10) Asthma ?J45.909 - Unspecified asthma, uncomplicated (ICD-10) Dyspnea on exertion ?R06.09 - Other forms of dyspnea (ICD-10) Nausea ?R11.0 - Nausea (ICD-10) Neuropathy ?G62.9 - Polyneuropathy, unspecified (ICD-10) CAD (coronary artery disease) ?I25.10 - Atherosclerotic heart disease of [place] coronary artery without angina pectoris (ICD-10) Toe necrosis ?I96 - Gangrene, not elsewhere classified (ICD-10) Diabetes ?E11.9 - Type 2 diabetes mellitus without complications (ICD-10) Diabetic foot ulcer ?E11.621 - Type 2 diabetes mellitus with foot ulcer (ICD-10) ?L97.509 - Non-pressure chronic ulcer of other part of unspecified foot with unspecified severity (ICD-10) Disorder of arteries and arterioles ?I77.9 - Disorder of arteries and arterioles, unspecified (ICD-10) Chronic osteomyelitis involving left ankle and foot ?M86.672 - Other chronic osteomyelitis, left ankle and foot (ICD-10) Gangrene ?I96 - Gangrene, not elsewhere classified (ICD-10) Surgical History (Updated 06/19/24 @ 13:36 by Clarissa Navarrete NP) History of appendectomy ?Z90.49 - Acquired absence of other specified parts of digestive tract (ICD- 10) History of cholecystectomy ?Z90.49 - Acquired absence of other specified parts of digestive tract (ICD- 10) History of arthroscopy of shoulder ?Z98.890 - Other specified postprocedural states (ICD-10) S/P arterial stent (~2002) ?Z95.9 - Presence of cardiac and vascular implant and graft, unspecified (ICD-10) Family History (Updated 06/19/24 @ 13:36 by Clarissa Navarrete NP) Other Family history of diabetes mellitus Family history of heart disease Family history of hypertension Family history of myocardial infarction Social History (Updated 06/19/24 @ 13:31 by Clarissa Navarrete NP) Within the past year, how often did you have a drink containing alcohol: never Score interpretation: A score less than 3 is consistent with normal alcohol consumption. Smoking status: Never smoker Non-prescribed substance use: denies use Highest level of school completed/degree received: high school graduate Little interest or pleasure in doing things: not at all Feeling down, depressed, or hopeless: not at all Exam Narrative Exam Narrative: All Systems are negative except as noted/marked.All systems reviewed and otherwise negative Nurses note and vital signs reviewed and patient is not hypoxic. General: The patient appears well and in no apparent distress. Patient is resting comfortably on cart. Skin: Warm, dry, no pallor noted. There is no rash noted. Head: Normocephalic, atraumatic Eye: Normal conjunctiva, no drainage, EOMI. PERRL Back: Right buttock no swelling minimal tenderness to palpation, non-tender, no CVA tenderness bilaterally to percussion. GI: Normal bowel sounds, no tenderness to palpation, no masses appreciated. No rebound, guarding, or rigidity noted. Musculoskeletal: The patient has no evidence of calf tenderness, no pitting edema, symmetrical pulses noted bilaterally Neurological: A&O x4, normal speech Psychiatric: Cooperative Constitutional Vital Signs, click to edit/add: Last Vital Signs Temp 97.7 F 08/17/24 14:49 Pulse 91 H 08/17/24 14:49 Resp 18 08/17/24 14:49 BP 173/76 H 08/17/24 14:49 Pulse Ox 95 08/17/24 14:49 O2 Del Method Room Air 08/17/24 14:49 Course Vital Signs Vital signs: Vital Signs Temperature 97.7 F 08/17/24 14:49 Pulse Rate 91 H 08/17/24 14:49 Respiratory Rate 18 08/17/24 14:49 Blood Pressure 173/76 H 08/17/24 14:49 Pulse Oximetry 95 08/17/24 14:49 Oxygen Delivery Method Room Air 08/17/24 14:49 Temperature 97.7 F 08/17/24 14:49 Pulse Rate 91 H 08/17/24 14:49 Respiratory Rate 18 08/17/24 14:49 Blood Pressure 173/76 H 08/17/24 14:49 Pulse Oximetry 95 08/17/24 14:49 Oxygen Delivery Method Room Air 08/17/24 14:49 Medical Decision Making [facility] Narrative Medical decision making narrative: 54-year-old female presents chief complaint of right buttock pain. Denies any known injury or trauma. She states she woke yesterday with the pain took ibupro fen and used ice and the pain did improve. States woke up this morning with a knot like pain in the right butt cheek. Denies any injury or trauma. No obvious swelling or injury noted. She has not had a history of sciatica and denies any radiation of the pain states the pain is in the right buttock. Patient presenting here with chief complaint of right buttock pain which is reproducible with ambulation and palpation of the right butt cheek. Patient was medicated here with Toradol and Norflex. She will be discharged home with a prescription of Flexeril. Patient told to rest ice and stretch. Patient verbalized understanding agrees with plan of care denies any known injury or trauma. There is no rash to the skin no bruising or ecchymosis noted. Differential Diagnosis Differential Diagnosis: muscle strain, rash Medical Records Medical records reviewed: Yes I reviewed the patient's medical records Discharge Plan Discharge Chief Complaint: Extremity Problem, Nontraumatic Clinical Impression: Strain of right buttock Patient Disposition: Home, Self-Care Time of Disposition Decision: 15:32 Condition: Good Prescriptions / Home Meds: New cyclobenzaprine 10 mg tablet 10 mg PO TID PRN (Reason: muscle spasm) Qty: 14 0RF No Action albuterol sulfate 90 mcg/actuation HFA aerosol inhaler 2 inh INHALATION PRN PRN (Reason: shortness of breath or wheezing) insulin lispro 100 unit/mL insulin pen 1 sliding scale dose SUBCUT TID insulin glargine U-300 conc [Toujeo SoloStar U-300 Insulin] 300 unit/mL (1.5 mL) insulin pen 95 unit SUBCUT QAM aspirin 81 mg capsule 81 mg PO DAILY atorvastatin 40 mg tablet 40 mg PO DAILY losartan 25 mg tablet 25 mg PO DAILY fluticasone propionate [Flovent HFA] 110 mcg/actuation HFA aerosol inhaler 3 puff INHALATION PRN PRN (Reason: bronchospasm) esomeprazole magnesium 40 mg capsule,delayed release(DR/EC) 40 mg PO Q24H glipizide 10 mg tablet 5 mg PO BID metformin 1,000 mg tablet 500 mg PO BID carvedilol 6.25 mg tablet 6.25 mg PO Q12H amoxicillin-pot clavulanate 875-125 mg tablet 1 tab PO Q12H Qty: 20 0RF sulfamethoxazole-trimethoprim [Bactrim DS] 800-160 mg tablet 1 tab PO BID Qty: 20 0RF ondansetron 4 mg tablet,disintegrating 4 mg PO Q6H PRN (Reason: nausea and vomiting) Qty: 20 0RF famotidine 20 mg tablet 20 mg PO QPM nitroglycerin 0.4 mg tablet, sublingual 0.4 mg sublingual Q5M PRN (Reason: chest pain) fluticasone propionate 50 mcg/actuation spray,suspension 2 spray INTRANASAL DAILY hydrocodone-acetaminophen 5-325 mg tablet 1 tab PO Q6H PRN (Reason: pain) Print Language: Latvian Instructions: Muscle Strain (ED), P.R.I.C.E. Treatment (ED) Referrals: Shayy Ly MD [Primary Care Provider] - 1 week
[2024-08-17] MEDS: ORPHENADRINE 60 MG/2 ML VIAL IM (15:17)
[2024-08-17] MEDS: KETOROLAC TROMETHAMINE 60 MG/2 ML VIAL IM (15:17)
== END 2024-08-17 15:54 | disposition home or self-care (01) ==
PROVIDERS: Emergency Provider Emergency Medicine; PCP Family Medicine
DX: S76.011A Strain of muscle, fascia and tendon of right hip, initial encounter (principal); X58.XXXA Exposure to other specified factors, initial encounter; Z90.49 Acquired absence of other specified parts of digestive tract
CPT/HCPCS: 96372; 99284; J1885; J2360

== ENCOUNTER 2024-08-19 20:28 | Emergency (ER) | payer MEDICARE, MEDICAID, SELFPAY ==
[2024-08-19 20:33] VITALS: BP 214/88; PULSE 99; TEMP 37.1; O2SAT 98; BMI 41.2
--- OUTSIDE RECORDS SUMMARY | 2024-08-19 20:35 | XMS_ITS | CCD ---
Author Organization 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 Name Role Phone PHYSICIAN, DEFAULT Unavailable [...] Shayy Dela Cruz Primary Care Provider [phone] MD Shayy Dela Cruz Attending Provider MD Shayy Dela Cruz Primary Care Provider MD Shayy Dela Cruz Attending Provider [phone] FATEMEH Vargas C Attending Provider Unavailable Primary [...] (1 source) codeine Drug Allergy 9 [facility] Repository (20 sources) Latex; Translations: [LATEX] Drug allergy (disorder) 9 sores on skin [facility] Repository (20 sources) Codeine; Translations: [CODEINE] Drug Allergy 0 nausea [facility] (19 sources) Latex Drug allergy 5 sores on skin [facility] Other (1 source) Codeine Drug Allergy [facility] Repository (10 sources) cat dander Allergy to substance 4 Sneezing, Itching [facility] (10 sources) dog dander Allergy to substance 4 Sneezing, Itching [facility] (10 sources) ozempic Propensity to adverse reactions 4 Vomiting [facility] (3 sources) Insulin Lispro; Translations: [INSULIN LISPRO] Drug Allergy [facility] ([facility] tomato allergenic [...] 2024 5:10pm Blood-Glucose Meter,Continuo us (Dexcom G7 Computed Tomography Technologist) misc (8 sources) Start: 12-13-2023 Blood-Glucose Meter,Continuous (Dexcom G7 Computed Tomography Technologist) misc Active 0 .Route December 12, 2023 11:00pm As directed Start: 12-13-2023 Blood-Glucose Meter,Continuous (Dexcom G7 Computed Tomography Technologist) misc Active 0 .Route December 13, 2023 12:00am As directed Start: 12-13-2023 Blood-Glucose Meter,Continuous (Dexcom G7 Computed Tomography Technologist) misc Active 0 .ROUTE December 13, 2023 [...] Orally Once a day Active Dexcom G7 Computed Tomography Technologist - (4 sources) Start: 06-03-19 24 Dexcom G7 Computed Tomography Technologist - as directed as directed 4 x [...] Start: 02-06-2024 take 1 capsule by mo [facility] once daily Esomeprazole Magnesium Active 0 .ROUTE [...] Jesus Lucas ( ) FreeStyle Amrik 3 [place] - (3 sources) Start: 06-06-2023 FreeStyle Amrik 3 [place] - as directed invitro 4 times daily [...] Drug Class(es) Dates Sig (Normalized) Sig (Original) [id number] 200 actuat albuterol 0.09 mg/actuat metered dose [...] Jun, Not-Taking/PRN Blood-Glucose Meter,Continuous (Freestyle Amrik 3 [place]) misc (15 sources) Start: 07-28-2023 End: 12-13-2023 Blood-Glucose Meter,Continuous (Freestyle Amrik 3 [place]) misc Discontinued EACH .ROUTE .MEDSUPPLY July 27, 2023 11:00pm December 13, 2023 12:09pm As directed Start: 07-28-2023 End: 12-13-2023 Blood-Glucose Meter,Continuo us (Freestyle Amrik 3 [place]) misc Discontinued EACH .ROUTE .MEDSUPPLY July 28, 2023 12:00am December 13, 2023 1:09pm As directed Start: 07-28-2023 Blood-Glucose Meter,Continuous (Freestyle Amrik 3 [place]) misc Active EACH .ROUTE .MEDSUPPLY July 28, [...] angina pectoris; Translations: [Atherosclerotic heart disease of [place] coronary artery without angina pectoris] Onset: 07-12-2022 [...] Onset: 11-09-2021 Chronic Other aftercare (20 sources) [facility] (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 of insulin; Translations: [Long-term (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 of insulin] Onset: 04-08-2022 Episodic Other aftercare (20 sources) Long-term current use of insulin; Translations: [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 (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 of insulin] 07-28-2023 Episodic Other [...] 04-08-2022 Episodic Other aftercare (1 source) 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 (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; 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] Onset: 04-08-2022 Episodic Other aftercare (1 source) 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 (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 of oral hypoglycemic drugs; Translations: [FPC USE ORAL HYPOGLYCEMIC DX] Onset: 04-08-2022 Episodic Other aftercare (1 source) Other assisted (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 therapy; Translations: [OTH [facility]PC CURRENT DRUG THERAPY] Onset: 11-09-2021 Episodic Other [...] By: Tejal Church on 07-10-2024 Pathology study [facility] Other Aren 07-05-2024 L Specimen: [id number] Received: 07/06/24 Status: SAM Cook Num: [id number] Spec Type: Surgical Subm Dr: Jordyn Bruce,[place], [place] Tissues: A DIGIT AMPUTATION (2ND LEFT TOE PARTIAL) B DIGIT AMPUTATION (3RD LEFT TOE) Procedures: HE/5, Gross/Micro L4/2, Decalcification/2 Age/ Patient Sex Location Account Attending Physician Zoila Ramos 54/F LABELL [id number] Jordyn Bruce DPM, SPEC NUM: [id number] RECD: 07/06/24 STATUS: SAM COOK NUM: [id number] JESSICA: 07/05/[address]: Jordyn Bruce DPM, [place] ENTERED: 07/06/[address] [facility] [address]: Robert,Chasity SPEC TYPE: Surgical DEPT: AVERY [...] ulcer, left second and third toes Specimen: [id number] Received: 07/06/24 Status: SAM Cook Num: [id number] Spec Type: Surgical Subm Dr: Jordyn Bruce DPM, [place] Tissues: A DIGIT AMPUTATION (2ND LEFT TOE PARTIAL) B DIGIT AMPUTATION (3RD LEFT TOE) Procedures: HE/5, Gross/Micro L4/2, Decalcification/2 Patient: RichardZoila [id number] (Continued) Specimen: [id number] Received: 07/06/24 (Continued) Signed (signature on file) Tejal Church MD 07/10/24 1438 Specimen: [id number] Received: 07/06/24 Status: SAM Cook Num: [id number] Spec Type: Surgical Subm Dr: Jordyn Bruce,[place], [place] Tissues: A DIGIT AMPUTATION (2ND LEFT TOE PARTIAL) B DIGIT AMPUTATION (3RD LEFT TOE) Procedures: HE/5, Gross/Micro L4/2, Decalcification/2 Patient: Zoila Ramos [id number] (Continued) Specimen: [id number] Received: 07/06/24-1327 (Continued) Gross Description Part A [...] x 1 x 0.4 cm. Cassettes: A1 Clinic Manager section of the wound with underlying central second phalangeal bone, decalcified A2 Tangential sections of proximal skin margin A3 Detached skin ( 3, ss, [id number] A) Part B is received in formalin [...] Tangential sections of proximal skin margin with vaccine customer representative sec (more content not included)... Normal [facility] Orders Onlyon 06-25-2024 Orders Only [id number] Zoila Ramos 1970 F [facility] Provider Department [place] 06/25/2024 928-JESSICA STONE C[facility] No family history on file [facility] Activated partial thrombopla stin time (aPTT) in platelet poor plasma by coagulation aon 06-19-2024 aPTT Coag (PPP) [Time] Activated partial thromboplastin time (aPTT) in platelet poor plasma by coagulation a 22.3-36.2 [facility] Basophils Auto (Bld) [#/Vol] on 06-19-2024 Basophils (Bld) [#/Vol] Automated basophil count 0.0-0.1 [facility] Basophils/100 WBC Auto (Bld) on 06-19-2024 Basophils/100 WBC (Bld) Automated basophil % 0.2-2.0 [facility] Eosinophils/100 WBC Auto (Bl d)on 06-19-2024 Eosinophils/100 WBC (Bld) Automated eosinophil % 0.9-7.0 [facility] Erythrocyte distribution wid th Auto (RBC) [Ratio]on 06-19-2024 Erythrocyte distribution width (RBC) [Ratio] Erythrocyte distribution width [Ratio] by Automated count 11.0-15.0 [facility] Estimated glomerular filtrat ion rate (GFR) non- Americanon 06-19-2024 GFR/1.73 sq M.predicted among non-blacks MDRD (S/P/Bld) [Vol rate/Area] Estimated glomerular filtration rate (GFR) non- >=60 mL/min/1.73m 2 [facility] Globulin Calc (S) [Mass/Vol] on 06-19-2024 Globulin (S) [Mass/Vol] Serum globulin measurement by calculation (mass/volume) [facility] Hematocrit Auto (Bld) [Volum e fraction]on 06-19-2024 Hematocrit (Bld) [Volume fraction] Hematocrit [Volume Fraction] of Blood by Automated count 36.0-48.0 [facility] Hemoglobin [Mass/volume] in Bloodon 06-19-2024 Hemoglobin (Bld) [Mass/Vol] Hemoglobin [Mass/volume] in Blood 12.0-16.0 [facility] INR in Platelet poor plasma by Coagulation assayon 06-19-2024 INR Coag (PPP) [Relative time] INR in Platelet poor plasma by Coagulation assay [facility] Comment on above: DESIRED INR:2.0-3.0 CONDITIONS NOT LISTED BELOW2.5-3.5 FOR PROSTHETIC HEART VALVE REPLACEMENT2.5-3.5 RECURRENT THROMBOSIS Laboratory - Chemistry and C hemistry - challengeon 06-19-2024 Albumin [Mass/Vol] 3.3 g/dL Low 3.4-5.[address] [facility] ALP [Catalytic activity/Vol] 110 U/L 46-116 [facility] ALT [Catalytic activity/Vol] 44 U/L 14-59 [facility] AST [Catalytic activity/Vol] 23 U/L 15-37 [facility] Bilirubin [Mass/Vol] 0.3 mg/dL 0.2-1.0 [facility] Calcium [Mass/Vol] 9.3 mg/dL 8.5-10.[address] [facility] Chloride [Moles/Vol] 102 mmol/L 98-107 [facility] CO2 [Moles/Vol] 27.9 mmol/L 21.0-32.0 [facility] Creatinine [Mass/Vol] 0.88 mg/dL 0.55-1.02 [facility] GFR/1.73 sq M.predicted MDRD (S/P/Bld) [Vol rate/Area] mL/min/{1.73_m2} >=60 mL/min/1.73m 2 [facility] Glucose [Mass/Vol] 175 mg/dL High 74-[address] [facility] Lipase [Catalytic activity/Vol] 28.0 U/L 16.0-77.0 [facility] Potassium [Moles/Vol] 4.2 mmol/L 3.5-5.1 [facility] Protein [Mass/Vol] 7.6 g/dL 6.4-8.[address] [facility] Sodium [Moles/Vol] 137 mmol/L 136-[address] [facility] Urea nitrogen [Mass/Vol] 12.0 mg/dL 7.0-18.0 [facility] Urea nitrogen/Creatinine [Mass ratio] 13.6 mg/mg [facility] Laboratory - Hematology and Cell countson 06-19-2024 Immature granulocytes/100 WBC (Bld) 0.1 % 0.0-0.5 [facility] Leukocytes [#/volume] correc alma delia for nucleated erythrocytes in Blood by Automated counon 06-19-2024 WBC corrected for nucl RBC Auto (Bld) [#/Vol] Leukocytes [#/volume] corrected for nucleated erythrocytes in Blood by Automated coun 4.0-11.0 [facility] Lymphocytes Auto (Bld) [#/Vo l]on 06-19-2024 Lymphocytes (Bld) [#/Vol] Lymphocytes [#/volume] in Blood by Automated count 1.2-3.8 [facility] Lymphocytes/100 WBC Auto (Bl d)on 06-19-2024 Lymphocytes/100 WBC (Bld) Lymphocytes/100 leukocytes in Blood by Automated count 20.5-60.0 [facility] MCH Auto (RBC) [Entitic mass ]on 06-19-2024 MCH (RBC) [Entitic mass] MCH [Entitic mass] by Automated count 26.7-34.0 [facility] MCHC Auto (RBC) [Mass/Vol]on 06-19-2024 MCHC (RBC) [Mass/Vol] MCHC [Mass/volume] by Automated count 29.9-35.2 [facility] MCV Auto (RBC) [Entitic vol] on 06-19-2024 MCV (RBC) [Entitic vol] MCV [Entitic volume] by Automated count 81.0-99.0 [facility] Monocytes Auto (Bld) [#/Vol] on 06-19-2024 Monocytes (Bld) [#/Vol] Automated blood monocyte count 0.3-0.8 [facility] Monocytes/100 WBC Auto (Bld) on 06-19-2024 Monocytes/100 WBC (Bld) Automated monocyte % 1.7-12.0 [facility] Neutrophils Auto (Bld) [#/Vo l]on 06-19-2024 Neutrophils (Bld) [#/Vol] Neutrophils [#/volume] in Blood by Automated count 1.4-6.5 [facility] Neutrophils/100 WBC Auto (Bl d)on 06-19-2024 Neutrophils/100 WBC (Bld) Automated neutrophil % 43.0-75.0 [facility] No Panel Informationon 06-19 Eosinophils # (Auto) 0.2 10 3/uL 0.0-0.7 [facility] Immature Granulocyte # (Auto) 0.01 10 3/uL 0.00-0.03 [facility] Office Visiton 06-19-2024 Follow-up visit [id number] Zoila Ramos 1970 F Date Provider Department Center 06/19/2024 MARQUES MCINTYRE CARD [facility] No family history on file Level of Service:70485 [place] OFFICE/OUTPATIENT ESTABLISHED MOD MDM 30 MIN Normal [facility] Platelet mean volume Auto (B ld) [Entitic vol]on 06-19-2024 Platelet mean volume (Bld) [Entitic vol] Platelet mean volume [Entitic volume] in Blood by Automated count 9.5-13.5 [facility] Platelets Auto (Bld) [#/Vol] on 06-19-2024 Platelets (Bld) [#/Vol] Platelets [#/volume] in Blood by Automated count 150-450 [facility] Prothrombin time (PT)on 06-02 PT Coag (PPP) [Time] Prothrombin time (PT) 9.0-11.6 [facility] RBC Auto (Bld) [#/Vol]on RBC (Bld) [#/Vol] Erythrocytes [#/volume] in Blood by Automated count 4.20-5.40 [facility] Serum or plasma albumin/glob ulin mass ratioon 06-19-2024 Albumin/Globulin [Mass ratio] Serum or plasma albumin/globulin mass ratio [facility] Serum or plasma anion gap de terminationon 06-19-2024 Anion gap [Moles/Vol] Serum or plasma anion gap determination [facility] Cholesterol in LDL Calc [Mas s/Vol]on 06-12-2024 Cholesterol in LDL [Mass/Vol] Cholesterol in LDL [Mass/volume] in Serum or Plasma by calculation [facility] Comment on above: <100 mg/dl [id number] 0-129 mg/dl NEAR OR ABOVE [id number] mg/dl BORDERLINE [id number] mg/dl HIGH>190 mg/dl VERY HIGH Cholesterol in VLDL Calc [Ma ss/Vol]on 06-12-2024 Cholesterol in VLDL [Mass/Vol] Cholesterol in VLDL [Mass/volume] in Serum or Plasma by calculation [facility] Estimated glomerular filtrat ion rate (GFR) non- Americanon 06-12-2024 GFR/1.73 sq M.predicted among non-blacks MDRD (S/P/Bld) [Vol rate/Area] Estimated glomerular filtration rate (GFR) non- >=60 mL/min/1.73m 2 [facility] Globulin Calc (S) [Mass/Vol] on 06-12-2024 Globulin (S) [Mass/Vol] Serum globulin measurement by calculation (mass/volume) [facility] Laboratory - Chemistry and C hemistry - challengeon 06-12-2024 Albumin [Mass/Vol] 3.1 g/dL Low 3.4-5.[address] [facility] ALP [Catalytic activity/Vol] 118 U/L High 46-116 [facility] ALT [Catalytic activity/Vol] 36 U/L 14-59 [facility] AST [Catalytic activity/Vol] 18 U/L 15-37 [facility] Bilirubin [Mass/Vol] 0.3 mg/dL 0.2-1.0 [facility] Calcium [Mass/Vol] 9.1 mg/dL 8.5-10.[address] [facility] Chloride [Moles/Vol] 102 mmol/L 98-107 [facility] Cholesterol [Mass/Vol] 124 mg/dL <=200 [facility] Cholesterol in HDL [Mass/Vol] 43 mg/dL 40-60 [facility] Comment on above: > or =60 mg/dl - LOW CARDIOVASCULAR RISK<40 mg/dl - HIGH CARDIOVASCULAR RISK CO2 [Moles/Vol] 28.4 mmol/L 21.0-32.0 [facility] Cobalamin (Vitamin B12) [Mass/Vol] 998 pg/mL 232-1245 [facility] Comment on above: Performed at: [address] [id number] Director: Gerald Jacobs PhD, Phone: [phone] Creatinine [Mass/Vol] 0.87 mg/dL 0.55-1.02 [facility] GFR/1.73 sq M.predicted MDRD (S/P/Bld) [Vol rate/Area] mL/min/{1.73_m2} >=60 mL/min/1.73m 2 [facility] Glucose [Mass/Vol] 197 mg/dL High 74-[address] [facility] Potassium [Moles/Vol] 4.5 mmol/L 3.5-5.1 [facility] Protein [Mass/Vol] 7.3 g/dL 6.4-8.[address] [facility] Sodium [Moles/Vol] 142 mmol/L 136-[address] [facility] Triglyceride [Mass/Vol] 68 mg/dL <=150 [facility] Urea nitrogen [Mass/Vol] 11.0 mg/dL 7.0-18.0 [facility] Urea nitrogen/Creatinine [Mass ratio] 12.6 mg/mg [facility] No Panel Informationon 06-12 25-Hydroxy Vitamin D Total 44.6 ng/mL [facility] Comment on above: <20 ng/mL Vit D defi cient20-<30 ng/mL Vit D [id number] ng/mL Vit D sufficient>100 ng/mL Potential Toxicity Serum or plasma albumin/glob ulin mass ratioon 06-12-2024 Albumin/Globulin [Mass ratio] Serum or plasma albumin/globulin mass ratio [facility] Serum or plasma anion gap de terminationon 06-12-2024 Anion gap [Moles/Vol] Serum or plasma anion gap determination [facility] Serum or plasma total choles terol/high density lipoprotein (HDL) cholesterol mass jaun 06-12-2024 Cholesterol.total/Ch olesterol in HDL [Mass ratio] Serum or plasma total cholesterol/high density lipoprotein (HDL) cholesterol mass rat [facility] Comment on above: 3.3 - 4.4 LOW RISK4. 4 - 7.1 AVERAGE RISK7.1 - 11.0 MODERATE RISK>11.0 HIGH RISK Basophils Auto (Bld) [#/Vol] on 06-07-2024 Basophils (Bld) [#/Vol] Automated basophil count 0.0-0.1 [facility] Basophils/100 WBC Auto (Bld) on 06-07-2024 Basophils/100 WBC (Bld) Automated basophil % 0.2-2.0 [facility] Eosinophils/100 WBC Auto (Bl d)on 06-07-2024 Eosinophils/100 WBC (Bld) Automated eosinophil % 0.9-7.0 [facility] Erythrocyte distribution wid th Auto (RBC) [Ratio]on 06-07-2024 Erythrocyte distribution width (RBC) [Ratio] Erythrocyte distribution width [Ratio] by Automated count 11.0-15.0 [facility] Estimated glomerular filtrat ion rate (GFR) non- Americanon 06-07-2024 GFR/1.73 sq M.predicted among non-blacks MDRD (S/P/Bld) [Vol rate/Area] Estimated glomerular filtration rate (GFR) non- >=60 mL/min/1.73m 2 [facility] Globulin Calc (S) [Mass/Vol] on 06-07-2024 Globulin (S) [Mass/Vol] Serum globulin measurement by calculation (mass/volume) [facility] Hematocrit Auto (Bld) [Volum e fraction]on 06-07-2024 Hematocrit (Bld) [Volume fraction] Hematocrit [Volume Fraction] of Blood by Automated count 36.0-48.0 [facility] Hemoglobin [Mass/volume] in Bloodon 06-07-2024 Hemoglobin (Bld) [Mass/Vol] Hemoglobin [Mass/volume] in Blood 12.0-16.0 [facility] Laboratory - Chemistry and C hemistry - challengeon 06-07-2024 Lactate [Moles/Vol] 1.9 mmol/L 0.4-2.0 [facility] Albumin [Mass/Vol] 3.3 g/dL Low 3.4-5.[address] [facility] ALP [Catalytic activity/Vol] 115 U/L 46-116 [facility] ALT [Catalytic activity/Vol] 39 U/L 14-59 [facility] AST [Catalytic activity/Vol] 16 U/L 15-37 [facility] Bilirubin [Mass/Vol] 0.2 mg/dL 0.2-1.0 [facility] Calcium [Mass/Vol] 9.4 mg/dL 8.5-10.[address] [facility] Chloride [Moles/Vol] 104 mmol/L 98-107 [facility] CO2 [Moles/Vol] 27.1 mmol/L 21.0-32.0 [facility] Creatinine [Mass/Vol] 0.86 mg/dL 0.55-1.02 [facility] GFR/1.73 sq M.predicted MDRD (S/P/Bld) [Vol rate/Area] mL/min/{1.73_m2} >=60 mL/min/1.73m 2 [facility] Glucose [Mass/Vol] 157 mg/dL High 74-[address] [facility] Potassium [Moles/Vol] 4.4 mmol/L 3.5-5.1 [facility] Protein [Mass/Vol] 7.3 g/dL 6.4-8.[address] [facility] Sodium [Moles/Vol] 142 mmol/L 136-[address] [facility] Urea nitrogen [Mass/Vol] 23.0 mg/dL High 7.0-18.0 [facility] Urea nitrogen/Creatinine [Mass ratio] 26.7 mg/mg [facility] Laboratory - Hematology and Cell countson 06-07-2024 ESR (Bld) [Velocity] 41 mm/h High <=30 [facility] Immature granulocytes/100 WBC (Bld) 0.2 % 0.0-0.5 [facility] Leukocytes [#/volume] correc alma delia for nucleated erythrocytes in Blood by Automated counon 06-07-2024 WBC corrected for nucl RBC Auto (Bld) [#/Vol] Leukocytes [#/volume] corrected for nucleated erythrocytes in Blood by Automated coun 4.0-11.0 [facility] Lymphocytes Auto (Bld) [#/Vo l]on 06-07-2024 Lymphocytes (Bld) [#/Vol] Lymphocytes [#/volume] in Blood by Automated count 1.2-3.8 [facility] Lymphocytes/100 WBC Auto (Bl d)on 06-07-2024 Lymphocytes/100 WBC (Bld) Lymphocytes/100 leukocytes in Blood by Automated count 20.5-60.0 [facility] MCH Auto (RBC) [Entitic mass ]on 06-07-2024 MCH (RBC) [Entitic mass] MCH [Entitic mass] by Automated count 26.7-34.0 [facility] MCHC Auto (RBC) [Mass/Vol]on 06-07-2024 MCHC (RBC) [Mass/Vol] MCHC [Mass/volume] by Automated count 29.9-35.2 [facility] MCV Auto (RBC) [Entitic vol] on 06-07-2024 MCV (RBC) [Entitic vol] MCV [Entitic volume] by Automated count 81.0-99.0 [facility] Monocytes Auto (Bld) [#/Vol] on 06-07-2024 Monocytes (Bld) [#/Vol] Automated blood monocyte count 0.3-0.8 [facility] Monocytes/100 WBC Auto (Bld) on 06-07-2024 Monocytes/100 WBC (Bld) Automated monocyte % 1.7-12.0 [facility] Neutrophils Auto (Bld) [#/Vo l]on 06-07-2024 Neutrophils (Bld) [#/Vol] Neutrophils [#/volume] in Blood by Automated count 1.4-6.5 [facility] Neutrophils/100 WBC Auto (Bl d)on 06-07-2024 Neutrophils/100 WBC (Bld) Automated neutrophil % 43.0-75.0 [facility] No Panel Informationon 06-07 C-Reactive Protein, Quantitative 1.46 mg/dL High <=0.50 [facility] Eosinophils # (Auto) 0.3 10 3/uL 0.0-0.7 [facility] Immature Granulocyte # (Auto) 0.02 10 3/uL 0.00-0.03 [facility] Platelet mean volume Auto (B ld) [Entitic vol]on 06-07-2024 Platelet mean volume (Bld) [Entitic vol] Platelet mean volume [Entitic volume] in Blood by Automated count 9.5-13.5 [facility] Platelets Auto (Bld) [#/Vol] on 06-07-2024 Platelets (Bld) [#/Vol] Platelets [#/volume] in Blood by Automated count 150-450 [facility] RBC Auto (Bld) [#/Vol]on RBC (Bld) [#/Vol] Erythrocytes [#/volume] in Blood by Automated count 4.20-5.40 [facility] Serum or plasma albumin/glob ulin mass ratioon 06-07-2024 Albumin/Globulin [Mass ratio] Serum or plasma albumin/globulin mass ratio [facility] Serum or plasma anion gap de terminationon 06-07-2024 Anion gap [Moles/Vol] Serum or plasma anion gap determination [facility] Basophils Auto (Bld) [#/Vol] on 06-01-2024 Basophils (Bld) [#/Vol] Automated basophil count 0.0-0.1 [facility] Basophils/100 WBC Auto (Bld) on 06-01-2024 Basophils/100 WBC (Bld) Automated basophil % 0.2-2.0 [facility] Eosinophils/100 WBC Auto (Bl d)on 06-01-2024 Eosinophils/100 WBC (Bld) Automated eosinophil % 0.9-7.0 [facility] Erythrocyte distribution wid th Auto (RBC) [Ratio]on 06-01-2024 Erythrocyte distribution width (RBC) [Ratio] Erythrocyte distribution width [Ratio] by Automated count 11.0-15.0 [facility] Estimated glomerular filtrat ion rate (GFR) non- Americanon 06-01-2024 GFR/1.73 sq M.predicted among non-blacks MDRD (S/P/Bld) [Vol rate/Area] Estimated glomerular filtration rate (GFR) non- Low >=60 mL/min/1.73m 2 [facility] [facility] Hematocrit Auto (Bld) [Volum e fraction]on 06-01-2024 Hematocrit (Bld) [Volume fraction] Hematocrit [Volume Fraction] of Blood by Automated count 36.0-48.0 [facility] Hemoglobin [Mass/volume] in Bloodon 06-01-2024 Hemoglobin (Bld) [Mass/Vol] Hemoglobin [Mass/volume] in Blood 12.0-16.0 [facility] Laboratory - Chemistry and C hemistry - challengeon 06-01-2024 Calcium [Mass/Vol] 9.0 mg/dL 8.5-10.[address] [facility] Chloride [Moles/Vol] 105 mmol/L 98-107 [facility] CO2 [Moles/Vol] 29.8 mmol/L 21.0-32.0 [facility] Creatinine [Mass/Vol] 1.01 mg/dL 0.55-1.02 [facility] GFR/1.73 sq M.predicted MDRD (S/P/Bld) [Vol rate/Area] mL/min/{1.73_m2} >=60 mL/min/1.73m 2 [facility] Glucose [Mass/Vol] 171 mg/dL High 74-[address] [facility] Potassium [Moles/Vol] 4.6 mmol/L 3.5-5.1 [facility] Sodium [Moles/Vol] 140 mmol/L 136-[address] [facility] Urea nitrogen [Mass/Vol] 15.0 mg/dL 7.0-18.0 [facility] Urea nitrogen/Creatinine [Mass ratio] 14.9 mg/mg [facility] Laboratory - Hematology and Cell countson 06-01-2024 Immature granulocytes/100 WBC (Bld) 0.3 % 0.0-0.5 [facility] Leukocytes [#/volume] correc alma delia for nucleated erythrocytes in Blood by Automated counon 06-01-2024 WBC corrected for nucl RBC Auto (Bld) [#/Vol] Leukocytes [#/volume] corrected for nucleated erythrocytes in Blood by Automated coun 4.0-11.0 [facility] Lymphocytes Auto (Bld) [#/Vo l]on 06-01-2024 Lymphocytes (Bld) [#/Vol] Lymphocytes [#/volume] in Blood by Automated count 1.2-3.8 [facility] Lymphocytes/100 WBC Auto (Bl d)on 06-01-2024 Lymphocytes/100 WBC (Bld) Lymphocytes/100 leukocytes in Blood by Automated count 20.5-60.0 [facility] MCH Auto (RBC) [Entitic mass ]on 06-01-2024 MCH (RBC) [Entitic mass] MCH [Entitic mass] by Automated count 26.7-34.0 [facility] MCHC Auto (RBC) [Mass/Vol]on 06-01-2024 MCHC (RBC) [Mass/Vol] MCHC [Mass/volume] by Automated count 29.9-35.2 [facility] MCV Auto (RBC) [Entitic vol] on 06-01-2024 MCV (RBC) [Entitic vol] MCV [Entitic volume] by Automated count 81.0-99.0 [facility] Monocytes Auto (Bld) [#/Vol] on 06-01-2024 Monocytes (Bld) [#/Vol] Automated blood monocyte count 0.3-0.8 [facility] Monocytes/100 WBC Auto (Bld) on 06-01-2024 Monocytes/100 WBC (Bld) Automated monocyte % 1.7-12.0 [facility] Neutrophils Auto (Bld) [#/Vo l]on 06-01-2024 Neutrophils (Bld) [#/Vol] Neutrophils [#/volume] in Blood by Automated count 1.4-6.5 [facility] Neutrophils/100 WBC Auto (Bl d)on 06-01-2024 Neutrophils/100 WBC (Bld) Automated neutrophil % 43.0-75.0 [facility] No Panel Informationon 06-01 Eosinophils # (Auto) 0.2 10 3/uL 0.0-0.7 [facility] Immature Granulocyte # (Auto) 0.02 10 3/uL 0.00-0.03 [facility] Platelet mean volume Auto (B ld) [Entitic vol]on 06-01-2024 Platelet mean volume (Bld) [Entitic vol] Platelet mean volume [Entitic volume] in Blood by Automated count 9.5-13.5 [facility] Platelets Auto (Bld) [#/Vol] on 06-01-2024 Platelets (Bld) [#/Vol] Platelets [#/volume] in Blood by Automated count 150-450 [facility] RBC Auto (Bld) [#/Vol]on RBC (Bld) [#/Vol] Erythrocytes [#/volume] in Blood by Automated count 4.20-5.40 [facility] Serum or plasma anion gap de terminationon 06-01-2024 Anion gap [Moles/Vol] Serum or plasma anion gap determination [facility] Basophils Auto (Bld) [#/Vol] on 05-16-2024 Basophils (Bld) [#/Vol] Automated basophil count 0.0-0.1 [facility] Basophils/100 WBC Auto (Bld) on 05-16-2024 Basophils/100 WBC (Bld) Automated basophil % 0.2-2.0 [facility] Eosinophils/100 WBC Auto (Bl d)on 05-16-2024 Eosinophils/100 WBC (Bld) Automated eosinophil % 0.9-7.0 [facility] Erythrocyte distribution wid th Auto (RBC) [Ratio]on 05-16-2024 Erythrocyte distribution width (RBC) [Ratio] Erythrocyte distribution width [Ratio] by Automated count 11.0-15.0 [facility] Estimated glomerular filtrat ion rate (GFR) non- Americanon 05-16-2024 GFR/1.73 sq M.predicted among non-blacks MDRD (S/P/Bld) [Vol rate/Area] Estimated glomerular filtration rate (GFR) non- Low >=60 mL/min/1.73m 2 [facility] Hematocrit Auto (Bld) [Volum e fraction]on 05-16-2024 Hematocrit (Bld) [Volume fraction] Hematocrit [Volume Fraction] of Blood by Automated count 36.0-48.0 [facility] Hemoglobin [Mass/volume] in Bloodon 05-16-2024 Hemoglobin (Bld) [Mass/Vol] Hemoglobin [Mass/volume] in Blood 12.0-16.0 [facility] Laboratory - Chemistry and C hemistry - challengeon 05-16-2024 Calcium [Mass/Vol] 9.1 mg/dL 8.5-10.[address] [facility] Chloride [Moles/Vol] 104 mmol/L 98-107 [facility] CO2 [Moles/Vol] 30.6 mmol/L 21.0-32.0 [facility] Creatinine [Mass/Vol] 1.01 mg/dL 0.55-1.02 [facility] GFR/1.73 sq M.predicted MDRD (S/P/Bld) [Vol rate/Area] mL/min/{1.73_m2} >=60 mL/min/1.73m 2 [facility] Glucose [Mass/Vol] 206 mg/dL High 74-[address] [facility] Potassium [Moles/Vol] 5.1 mmol/L 3.5-5.1 [facility] Sodium [Moles/Vol] 141 mmol/L 136-[address] [facility] Urea nitrogen [Mass/Vol] 12.0 mg/dL 7.0-18.0 [facility] Urea nitrogen/Creatinine [Mass ratio] 11.9 mg/mg [facility] Laboratory - Hematology and Cell countson 05-16-2024 ESR (Bld) [Velocity] 28 mm/h <=30 [facility] Immature granulocytes/100 WBC (Bld) 0.3 % 0.0-0.5 [facility] Leukocytes [#/volume] correc alma delia for nucleated erythrocytes in Blood by Automated counon 05-16-2024 WBC corrected for nucl RBC Auto (Bld) [#/Vol] Leukocytes [#/volume] corrected for nucleated erythrocytes in Blood by Automated coun 4.0-11.0 [facility] Lymphocytes Auto (Bld) [#/Vo l]on 05-16-2024 Lymphocytes (Bld) [#/Vol] Lymphocytes [#/volume] in Blood by Automated count 1.2-3.8 [facility] Lymphocytes/100 WBC Auto (Bl d)on 05-16-2024 Lymphocytes/100 WBC (Bld) Lymphocytes/100 leukocytes in Blood by Automated count 20.5-60.0 [facility] MCH Auto (RBC) [Entitic mass ]on 05-16-2024 MCH (RBC) [Entitic mass] MCH [Entitic mass] by Automated count 26.7-34.0 [facility] MCHC Auto (RBC) [Mass/Vol]on 05-16-2024 MCHC (RBC) [Mass/Vol] MCHC [Mass/volume] by Automated count 29.9-35.2 [facility] MCV Auto (RBC) [Entitic vol] on 05-16-2024 MCV (RBC) [Entitic vol] MCV [Entitic volume] by Automated count 81.0-99.0 [facility] Monocytes Auto (Bld) [#/Vol] on 05-16-2024 Monocytes (Bld) [#/Vol] Automated blood monocyte count 0.3-0.8 [facility] Monocytes/100 WBC Auto (Bld) on 05-16-2024 Monocytes/100 WBC (Bld) Automated monocyte % 1.7-12.0 [facility] Neutrophils Auto (Bld) [#/Vo l]on 05-16-2024 Neutrophils (Bld) [#/Vol] Neutrophils [#/volume] in Blood by Automated count 1.4-6.5 [facility] Neutrophils/100 WBC Auto (Bl d)on 05-16-2024 Neutrophils/100 WBC (Bld) Automated neutrophil % 43.0-75.0 [facility] No Panel Informationon 05-16 C-Reactive Protein, Quantitative 1.26 mg/dL High <=0.50 [facility] Eosinophils # (Auto) 0.3 10 3/uL 0.0-0.7 [facility] Immature Granulocyte # (Auto) 0.02 10 3/uL 0.00-0.03 [facility] Platelet mean volume Auto (B ld) [Entitic vol]on 05-16-2024 Platelet mean volume (Bld) [Entitic vol] Platelet mean volume [Entitic volume] in Blood by Automated count 9.5-13.5 [facility] Platelets Auto (Bld) [#/Vol] on 05-16-2024 Platelets (Bld) [#/Vol] Platelets [#/volume] in Blood by Automated count 150-450 [facility] RBC Auto (Bld) [#/Vol]on RBC (Bld) [#/Vol] Erythrocytes [#/volume] in Blood by Automated count 4.20-5.40 [facility] Serum or plasma anion gap de terminationon 05-16-2024 Anion gap [Moles/Vol] Serum or plasma anion gap determination [facility] Creatinine [Mass/volume] in UrineOrdered By: Cathie Vargas on 02-23-2024 Creatinine (U) [Mass/Vol] 28.00 mg/dL [facility] Comment on above: No reference range e stablished MicroAlb Creat Ratio,Uon Creatinine, Urine (Random) 28.00 mg/dL Normal [facility] Comment on above: Result Comment: No r eference range established Performed By: #### U RMACRERAT #### [facility] [address] [place] [address] Microalbumin/Creatin ine Ratio Not performed Normal 0.0-30.0 [facility] Comment on above: Result Comment: PERF ORMED BY: [place] [address] PATHOLOGIST [employer]PER[employer] RUBINA RICCI M.D. Performed By: #### U RMACRERAT #### [facility] [address] [place] [address] Microalbumin [Mass/volume] i n UrineOrdered By: Cathie Vargas on 02-23-2024 Albumin DL <= 20 mg/L (U) [Mass/Vol] mg/dL Normal 0.0-1.8 [facility] Comment on above: Performed By: #### U RMACRERAT #### [facility] [address] [place] [address] Urine microalbumin/creatinin e mass ratioOrdered By: Cathie Vargas on 02-23-2024 Albumin/Creatinine DL <= 20 mg/L (U) [Mass ratio] TNP [facility] Comment on above: Test not performed HbA1c HPLC (Bld) [Mass fract ion]on 12-13-2023 HbA1c (Bld) [Mass fraction] 9.9 % [facility] No Panel Informationon 12-12 Bedside Glucose 118 [facility] No Panel Informationon 09-28 Bedside Glucose 278 [facility] HbA1c HPLC (Bld) [Mass fract ion]on 07-28-2023 HbA1c (Bld) [Mass fraction] 10.3 % [facility] No Panel Informationon 07-27 Bedside Glucose 126 [facility] Basophils Auto (Bld) [#/Vol] on 07-12-2023 Basophils (Bld) [#/Vol] 0.0 10 3/uL 0.0-0.1 [facility] Basophils/100 WBC Auto (Bld) on 07-12-2023 Basophils/100 WBC (Bld) 0.5 % 0.2-2.0 [facility] Eosinophils/100 WBC Auto (Bl d)on 07-12-2023 Eosinophils/100 WBC (Bld) 1.5 % 0.9-7.0 [facility] Erythrocyte distribution wid th Auto (RBC) [Ratio]on 07-12-2023 Erythrocyte distribution width (RBC) [Ratio] 12.7 % 11.0-15.0 [facility] Estimated glomerular filtrat ion rate (GFR) non- Americanon 07-12-2023 GFR/1.73 sq M.predicted among non-blacks MDRD (S/P/Bld) [Vol rate/Area] mL/min/{1.73_m2} >=60 [facility] Hematocrit Auto (Bld) [Volum e fraction]on 07-12-2023 Hematocrit (Bld) [Volume fraction] 42.8 % 36.0-48.0 [facility] Hemoglobin [Mass/volume] in Bloodon 07-12-2023 Hemoglobin (Bld) [Mass/Vol] 14.3 g/dL 12.0-16.0 [facility] Laboratory - Chemistry and C hemistry - challengeon 07-12-2023 Calcium [Mass/Vol] 9.1 mg/dL 8.5-10.[address] [facility] Chloride [Moles/Vol] 100 mmol/L 98-107 [facility] CO2 [Moles/Vol] 26.1 mmol/L 21.0-32.0 [facility] Creatinine [Mass/Vol] 0.78 mg/dL 0.55-1.02 [facility] GFR/1.73 sq M.predicted MDRD (S/P/Bld) [Vol rate/Area] mL/min/{1.73_m2} >=60 [facility] Glucose [Mass/Vol] 215 mg/dL 74-[address] [facility] Potassium [Moles/Vol] 4.0 mmol/L 3.5-5.1 [facility] Sodium [Moles/Vol] 137 mmol/L 136-[address] [facility] Urea nitrogen [Mass/Vol] 12.0 mg/dL 7.0-18.0 [facility] Urea nitrogen/Creatinine [Mass ratio] 15.4 mg/mg [facility] Laboratory - Hematology and Cell countson 07-12-2023 Immature granulocytes/100 WBC (Bld) 0.1 % 0.0-0.5 [facility] Leukocytes [#/volume] correc alma delia for nucleated erythrocytes in Blood by Automated counon 07-12-2023 WBC corrected for nucl RBC Auto (Bld) [#/Vol] 7.8 10 3/uL 4.0-11.0 [facility] Lymphocytes Auto (Bld) [#/Vo l]on 07-12-2023 Lymphocytes (Bld) [#/Vol] 2.7 10 3/uL 1.2-3.8 [facility] Lymphocytes/100 WBC Auto (Bl d)on 07-12-2023 Lymphocytes/100 WBC (Bld) 34.1 % 20.5-60.0 [facility] MCH Auto (RBC) [Entitic mass ]on 07-12-2023 MCH (RBC) [Entitic mass] 29.2 pg 26.7-34.0 [facility] MCHC Auto (RBC) [Mass/Vol]on 07-12-2023 MCHC (RBC) [Mass/Vol] 33.4 g/dL 29.9-35.2 [facility] MCV Auto (RBC) [Entitic vol] on 07-12-2023 MCV (RBC) [Entitic vol] 87.5 fL 81.0-99.0 [facility] Monocytes Auto (Bld) [#/Vol] on 07-12-2023 Monocytes (Bld) [#/Vol] 0.5 10 3/uL 0.3-0.8 [facility] Monocytes/100 WBC Auto (Bld) on 07-12-2023 Monocytes/100 WBC (Bld) 6.4 % 1.7-12.0 [facility] Neutrophils Auto (Bld) [#/Vo l]on 07-12-2023 Neutrophils (Bld) [#/Vol] 4.5 10 3/uL 1.4-6.5 [facility] Neutrophils/100 WBC Auto (Bl d)on 07-12-2023 Neutrophils/100 WBC (Bld) 57.4 % 43.0-75.0 [facility] No Panel Informationon 07-11 Eosinophils # (Auto) 0.1 10 3/uL 0.0-0.7 [facility] Immature Granulocyte # (Auto) 0.01 10 3/uL 0.00-0.03 [facility] Platelet mean volume Auto (B ld) [Entitic vol]on 07-12-2023 Platelet mean volume (Bld) [Entitic vol] 10.9 fL 9.5-13.5 [facility] Platelets Auto (Bld) [#/Vol] on 07-12-2023 Platelets (Bld) [#/Vol] 259 10 3/uL 150-450 [facility] RBC Auto (Bld) [#/Vol]on RBC (Bld) [#/Vol] 4.89 10 6/uL 4.20-5.40 [facility] Serum or plasma anion gap de terminationon 07-12-2023 Anion gap [Moles/Vol] 14.9 mmol/L [facility] Glucose - FINGER STICKon Glucose [Mass/Vol] 360 mg/dL [employer] Other CBC AUTO DIFFon 08-27-2022 BASO # 0.0 103/ul Normal 0.0-0.1 [facility] Comment on above: Performed By: #### C BC #### [facility] [address] [place] [address] Dr. Sarah Church Basophils/100 WBC (Bld) 0.5 % Normal 0.2-2.0 [facility] Comment on above: Performed By: #### C BC #### [facility] [address] [place] [address] Dr. Sarah Church EO # 0.2 103/ul Normal 0.0-0.7 [facility] Comment on above: Performed By: #### C BC #### [facility] [address] [place] [address] Dr. Sarah Church Eosinophils/100 WBC (Bld) 2.2 % Normal 0.9-7.0 [facility] Comment on above: Performed By: #### C BC #### [facility] [address] [place] [address] Dr. Sarah Church Erythrocyte distribution width (RBC) [Ratio] 12.5 % Normal 11.0-15.0 [facility] Comment on above: Performed By: #### C BC #### [facility] [address] [place] [address] Dr. Sarah Church Hematocrit (Bld) [Volume fraction] 44.1 % Normal 36.0-48.0 [facility] Comment on above: Performed By: #### C BC #### [facility] [address] [place] [address] Dr. Sarah Church Hemoglobin (Bld) [Mass/Vol] 15.1 g/dL Normal 12.0-16.0 [facility] Comment on above: Performed By: #### C BC #### [facility] [address] [place] [address] Dr. Sarah Church IG # 0.02 10e3/ul Normal 0.00-0.03 [facility] Comment on above: Performed By: #### C BC #### [facility] [address] [place] [address] Dr. Sarah Church IG % 0.2 % Normal 0.0-0.5 [facility] Comment on above: Performed By: #### C BC #### [facility] [address] [place] [address] Dr. Sarah Church LYMPH # 2.9 103/ul Normal 1.2-3.8 [facility] Comment on above: Performed By: #### C BC #### [facility] [address] [place] [address] Dr. Sarah Church Lymphocytes/100 WBC (Bld) 33.4 % Normal 20.5-60.0 [facility] Comment on above: Performed By: #### C BC #### [facility] [address] [place] [address] Dr. Sarah Church MANUAL DIFF REQ NO Normal [facility] Comment on above: Performed By: #### C BC #### [facility] [address] [address] [address] Sarah Church MCH (RBC) [Entitic mass] 29.1 pg Normal 26.7-34.0 [facility] Comment on above: Performed By: #### C BC #### [facility] [address] [address] [address] Sarah Church MCHC (RBC) [Mass/Vol] 34.2 g/dL Normal 29.9-35.2 [facility] Comment on above: Performed By: #### C BC #### [facility] [address] [place] [address] Dr. Sarah Church MCV (RBC) [Entitic vol] 85.0 fL Normal 81.0-99.0 [facility] Comment on above: Performed By: #### C BC #### [facility] [address] [place] [address] Dr. Sarah Church MONO # 0.6 103/ul Normal 0.3-0.8 [facility] Comment on above: Performed By: #### C BC #### [facility] [address] [place] [address] Dr. Sarah Church Monocytes/100 WBC (Bld) 6.8 % Normal 1.7-12.0 [facility] Comment on above: Performed By: #### C BC #### [facility] [address] [place] [address] Dr. Sarah Church NEUT # 4.9 103/ul Normal 1.4-6.5 [facility] Comment on above: Performed By: #### C BC #### [facility] [address] [place] [address] Dr. Sarah Church Neutrophils/100 WBC (Bld) 56.9 % Normal 43.0-75.0 [facility] Comment on above: Performed By: #### C BC #### [facility] [address] [place] [address] Dr. Sarah Church Platelet mean volume (Bld) [Entitic vol] 10.8 fL Normal 9.5-13.5 [facility] Comment on above: Performed By: #### C BC #### [facility] [address] [address] [address] Sarah Church PLT 276 103/ul Normal 150-450 [facility] Comment on above: Performed By: #### C BC #### [facility] [address] [place] [address] Dr. Sarah Church RBC 5.19 106/ul Normal 4.20-5.40 [facility] Comment on above: Performed By: #### C BC #### [facility] [address] [place] [address] Dr. Sarah Church WBC 8.6 103/ul Normal 4.0-11.0 [facility] Comment on above: Performed By: #### C BC #### [facility] [address] [place] [address] Dr. Sarah Church LIPID PROFILEon 08-27-2022 CHOL-HDL RATIO NORM SEE BELOW Normal [facility] Comment on above: Result Comment: 3.3 - 4.4 LOW RISK 4.4 - 7.1 AVERAGE RISK 7.1 - 11.0 MODERATE RISK >11.0 HIGH RISK Performed By: #### L IPID, CMP #### [facility] [address] [place] [address] Dr. Sarah Church Cholesterol [Mass/Vol] 110 mg/dL Normal <=200 [facility] Comment on above: Performed By: #### L IPID, CMP #### [facility] [address] [place] [address] Dr. Sarah Church Cholesterol in HDL [Mass/Vol] 33 mg/dL Critically low 40-60 [facility] Comment on above: Performed By: #### L IPID, CMP #### [facility] [address] [place] [address] Dr. Sarah Church Cholesterol in LDL [Mass/Vol] 58.0 mg/dL Normal [facility] Comment on above: Performed By: #### L IPID, CMP #### [facility] [address] [place] [address] Dr. Sarah Church Cholesterol.total/Ch olesterol in HDL [Mass ratio] 3.3 {ratio} Normal [facility] Comment on above: Performed By: #### L IPID, CMP #### [facility] [address] [address] [address] Sarah Church HDL NORMAL > or = 60 mg/dl - LOW CARDIOVASCULAR RISK <40 mg/dl - HIGH CARDIOVASCULAR RISK Normal [facility] Comment on above: Performed By: #### L IPID, CMP #### [facility] [address] [address] [address] Sarah Church LDL CALC NORMAL SEE BELOW Normal [facility] Comment on above: Result Comment: <100 mg/dl OPTIMAL 100 - 129 mg/dl NEAR OR ABOVE OPTIMAL 130 - 159 mg/dl BORDERLINE HIGH 160 - 189 mg/dl HIGH >190 mg/dl VERY HIGH Performed By: #### L IPID, CMP #### [facility] [address] [address] [address] Sarah Church Triglyceride [Mass/Vol] 95 mg/dL Normal <=150 [facility] Comment on above: Performed By: #### L IPID, CMP #### [facility] [address] [address] [address] Sarah Church VLDL CALC 19.0 mg/dL Normal [facility] Comment on above: Performed By: #### L IPID, CMP #### [facility] [address] [address] [address] Sarah Church PROF 14(COMP METB)on 023 Albumin [Mass/Vol] 3.3 g/dL Critically low 3.4-5.0 Th e [facility] Comment on above: Performed By: #### L IPID, CMP #### [facility] [address] [address] [address] Sarah Church Albumin/Globulin [Mass ratio] 0.8 {ratio} Normal [facility] Comment on above: Performed By: #### L IPID, CMP #### [facility] [address] [address] [address] Sarah Church ALP [Catalytic activity/Vol] 100 U/L Normal 46-116 [facility] Comment on above: Performed By: #### L IPID, CMP #### [facility] [address] [address] [address] Sarah Church ALT [Catalytic activity/Vol] 74 U/L Critically high 14-59 [facility] Comment on above: Performed By: #### L IPID, CMP #### [facility] [address] [address] [address] Sarah Church Anion gap [Moles/Vol] 13.2 mmol/L Normal [facility] Comment on above: Performed By: #### L IPID, CMP #### [facility] [address] [address] [address] Sarah Church AST [Catalytic activity/Vol] 42 U/L Critically high 15-37 [facility] Comment on above: Performed By: #### L IPID, CMP #### [facility] [address] [address] [address] Sarah Church Bilirubin [Mass/Vol] 0.4 mg/dL Normal 0.2-1.0 [facility] Comment on above: Performed By: #### L IPID, CMP #### [facility] [address] [address] [address] Sarah Church Calcium [Mass/Vol] 9.2 mg/dL Normal 8.5-10.1 [facility] Comment on above: Performed By: #### L IPID, CMP #### [facility] [address] [address] [address] Sarah Church Chloride [Moles/Vol] 99 mmol/L Normal 98-107 [facility] Comment on above: Performed By: #### L IPID, CMP #### [facility] [address] [address] [address] Sarah Church CO2 [Moles/Vol] 30.4 mmol/L Normal 21.0-32.0 [facility] Comment on above: Performed By: #### L IPID, CMP #### [facility] [address] [address] [address] Sarah Church Creatinine [Mass/Vol] 0.78 mg/dL Normal 0.55-1.02 [facility] Comment on above: Performed By: #### L IPID, CMP #### [facility] [address] [place] [address] Dr. Sarah Church EGFR-AF STATELESS >60 Normal >=60 [facility] Comment on above: Performed By: #### L IPID, CMP #### [facility] [address] [address] [address] Sarah Church EGFR-NON AF STATELESS >60 Normal >=60 [facility] Comment on above: Performed By: #### L IPID, CMP #### [facility] [address] [place] [address] Dr. Sarah Church Globulin (S) [Mass/Vol] 4.0 g/dL Normal [facility] Comment on above: Performed By: #### L IPID, CMP #### [facility] [address] [place] [address] Dr. Sarah Church Glucose [Mass/Vol] 255 mg/dL Critically high 74-106 [facility] Comment on above: Performed By: #### L IPID, CMP #### [facility] [address] [place] [address] Dr. Sarah Church Potassium [Moles/Vol] 3.6 mmol/L Normal 3.5-5.1 [facility] Comment on above: Performed By: #### L IPID, CMP #### [facility] [address] [place] [address] Dr. Sarah Church Protein [Mass/Vol] 7.3 g/dL Normal 6.4-8.2 [facility] Comment on above: Performed By: #### L IPID, CMP #### [facility] [address] [place] [address] Dr. Sarah Church Sodium [Moles/Vol] 139 mmol/L Normal 136-145 [facility] Comment on above: Performed By: #### L IPID, CMP #### [facility] [address] [place] [address] Dr. Sarah Church Urea nitrogen [Mass/Vol] 8.0 mg/dL Normal 7.0-18.0 [facility] Comment on above: Performed By: #### L IPID, CMP #### [facility] [address] [address] [address] Sarah Church Urea nitrogen/Creatinine [Mass ratio] 10.3 mg/mg Normal [facility] Comment on above: Performed By: #### L IPID, CMP #### [facility] [address] [address] [address] Sarah Church MG MAMM SCREEN 3D ROB CADon 07-20-2022 MG MAMM SCREEN 3D ROB CAD Patient: ZOILA RAMOS Exam Date: 07/20/2022 : 1970 Gender:F Ordering : DR SHAYY DELA CRUZ M.D. Admission #: [id number] Family : Order #: [id number] CLICK HERE TO VIEW EXAM RADIOLOGY REPORT PROCEDURE: MAMMOGRAM SCREENING 3D BILATERAL CAD COMPARISON: MAMMO ROB SCREEN W CAD DIG, 05/16/2012. INDICATIONS: Screening mammography Calculator Name NCI Breast Cancer Risk Assessment Tool 5 Year Breast Cancer Risk 1.20% Lifetime Breast Cancer Risk 10.80% Personal Breast Cancer No Personal Ovarian Cancer No Treatments None Family Cancers None LOCATION: [facility] BREAST COMPOSITION: Almost entirely fatty. [...] M.D. on 07/21/2022 at 08:24 Normal [facility] PROF CHEM 8 (BAS METB)on Anion gap [Moles/Vol] 14.5 mmol/L Normal [facility] Comment on above: Performed By: #### B MP #### [facility] [address] [place], [place] [address] Dr. Sarah Church Calcium [Mass/Vol] 9.8 mg/dL Normal 8.5-10.1 [facility] Comment on above: Performed By: #### B MP #### [facility] [address] [place] [address] Dr. Sarah Church Chloride [Moles/Vol] 99 mmol/L Normal 98-107 [facility] Comment on above: Performed By: #### B MP #### [facility] [address] [place] [address] Dr. Sarah Church CO2 [Moles/Vol] 27.2 mmol/L Normal 21.0-32.0 [facility] Comment on above: Performed By: #### B MP #### [facility] [address] [place] [address] Dr. Sarah Church Creatinine [Mass/Vol] 0.80 mg/dL Normal 0.55-1.02 [facility] Comment on above: Performed By: #### B MP #### [facility] [address] [place] [address] Dr. Sarah Church EGFR-AF STATELESS >60 Normal >=60 [facility] Comment on above: Performed By: #### B MP #### [facility] [address] [place] [address] Dr. Sarah Church EGFR-NON AF STATELESS >60 Normal >=60 [facility] Comment on above: Performed By: #### B MP #### [facility] [address] [place] [address] Dr. Sarah Church Glucose [Mass/Vol] 458 mg/dL Critically high 74-106 [facility] Comment on above: Performed By: #### B MP #### [facility] [address] [place] [address] Dr. Sarah Church Potassium [Moles/Vol] 4.7 mmol/L Normal 3.5-5.1 [facility] Comment on above: Performed By: #### B MP #### [facility] [address] [place] [address] Dr. Sarah Church Sodium [Moles/Vol] 136 mmol/L Normal 136-145 [facility] Comment on above: Performed By: #### B MP #### [facility] [address] [address] [address] Sarah Church Urea nitrogen [Mass/Vol] 15.0 mg/dL Normal 7.0-18.0 [facility] Comment on above: Performed By: #### B MP #### [facility] [address] [address] [address] Sarah Church Urea nitrogen/Creatinine [Mass ratio] 18.8 mg/mg Normal [facility] Comment on above: Performed By: #### B MP #### [facility] [address] [address] [address] Sarah Church GLYCOHEMOGLOBIN A1Con 2022 ADA RECOMMENDATION SEE BELOW Normal [facility] Comment on above: Result Comment: ADA RECOMMENDED LIMIT 4.0 - 6.0 ADA THERAPEUTIC TARGET < 7.0 ACTION SUGGESTED > 7.0 Performed By: #### A 1C ####[facility] [address] [address]Dr. Sarah Church Glucose [Mass/Vol] 266 mg/dL Normal [facility] Comment on above: Performed By: #### A 1C ####[facility] [address] [address]Dr. Sarah Church HbA1c (Bld) [Mass fraction] 10.9 % Critically high 4.5-6.2 [facility] Comment on above: Performed By: #### A 1C ####[facility] [address] [address]Dr. Sarah Church XR HIP RT 2 3V [...] JAVAD ROB Date: 2022-04-06 21:15 Normal [facility] CBC AUTO DIFFon 11-05-2021 BASO # 0.1 103/ul Normal 0.0-0.1 [facility] Comment on above: Performed By: #### C BC #### [facility] [address] [address] [address] Sarah Church Basophils/100 WBC (Bld) 0.4 % Normal 0.2-2.0 [facility] Comment on above: Performed By: #### C BC #### [facility] [address] [address] [address] Sarah Church EO # 0.2 103/ul Normal 0.0-0.7 [facility] Comment on above: Performed By: #### C BC #### [facility] [address] [address] [address] Sarah Church Eosinophils/100 WBC (Bld) 1.3 % Normal 0.9-7.0 [facility] Comment on above: Performed By: #### C BC #### [facility] [address] [place] [address] Dr. Sarah Church Erythrocyte distribution width (RBC) [Ratio] 12.3 % Normal 11.0-15.0 [facility] Comment on above: Performed By: #### C BC #### [facility] [address] [place] [address] Dr. Sarah Church Hematocrit (Bld) [Volume fraction] 43.1 % Normal 36.0-48.0 [facility] Comment on above: Performed By: #### C BC #### [facility] [address] [place] [address] Dr. Sarah Church Hemoglobin (Bld) [Mass/Vol] 14.6 g/dL Normal 12.0-16.0 [facility] Comment on above: Performed By: #### C BC #### [facility] [address] [address] [address] Sarah Church IG # 0.04 10e3/ul Critically high 0.00-0.03 [facility] Comment on above: Performed By: #### C BC #### [facility] [address] [address] [address] Sarah Church IG % 0.3 % Normal 0.0-0.5 [facility] Comment on above: Performed By: #### C BC #### [facility] [address] [address] [address] Sarah Church LYMPH # 1.6 103/ul Normal 1.2-3.8 [facility] Comment on above: Performed By: #### C BC #### [facility] [address] [address] [address] Sarah Church Lymphocytes/100 WBC (Bld) 12.5 % Critically low 20.5-60.0 [facility] Comment on above: Performed By: #### C BC #### [facility] [address] [address] [address] Sarah Church MANUAL DIFF REQ NO Normal [facility] Comment on above: Performed By: #### C BC #### [facility] [address] [place] [address] Dr. Sarah Church MCH (RBC) [Entitic mass] 29.4 pg Normal 26.7-34.0 [facility] Comment on above: Performed By: #### C BC #### [facility] [address] [place] [address] Dr. Sarah Church MCHC (RBC) [Mass/Vol] 33.9 g/dL Normal 29.9-35.2 [facility] Comment on above: Performed By: #### C BC #### [facility] [address] [place] [address] Dr. Sarah Church MCV (RBC) [Entitic vol] 86.7 fL Normal 81.0-99.0 [facility] Comment on above: Performed By: #### C BC #### [facility] [address] [place] [address] Dr. Sarah Church MONO # 1.0 103/ul Critically high 0.3-0.8 [facility] Comment on above: Performed By: #### C BC #### [facility] [address] [place] [address] Dr. Sarah Church Monocytes/100 WBC (Bld) 7.7 % Normal 1.7-12.0 [facility] Comment on above: Performed By: #### C BC #### [facility] [address] [place], [place] [address] Dr. Sarah Church NEUT # 9.6 103/ul Critically high 1.4-6.5 [facility] Comment on above: Performed By: #### C BC #### [facility] [address] [place], [place] [address] Dr. Sarah Church Neutrophils/100 WBC (Bld) 77.8 % Critically high 43.0-75.0 [facility] Comment on above: Performed By: #### C BC #### [facility] [address] [address] [address] Sarah Church Platelet mean volume (Bld) [Entitic vol] 11.0 fL Normal 9.5-13.5 [facility] Comment on above: Performed By: #### C BC #### [facility] [address] [address] [address] Sarah Church PLT 220 103/ul Normal 150-450 [facility] Comment on above: Performed By: #### C BC #### [facility] [address] [address] [address] Sarah Church RBC 4.97 106/ul Normal 4.20-5.40 [facility] Comment on above: Performed By: #### C BC #### [facility] [address] [address] [address] Sarah Church WBC 12.4 103/ul Critically high 4.0-11.0 [facility] Comment on above: Performed By: #### C BC #### [facility] [address] [id number] Sarah Church GROUP A STREP CULTUREon S. pyogenes Ag Ql (Unsp spec) Culture Observations: NEGATIVE FOR GROUP A STREPTOCOCCUS. Normal [facility] Comment on above: Performed By: #### G RASTCX, SSCRN ####[facility] [address] [place], [place] [address]Dr. Sarah Church POINT OF CARE GLUCOSEon Glucose [Mass/Vol] 214 mg/dL Critically high 74-106 T he [facility] Comment on above: Performed By: #### P OCGLUC #### [facility] [address] [address] [address] Sarah Church STREPT SCREENon 11-05-2021 STREP SCREEN A Negative Normal NEGATIVE [facility] [place] [facility] Comment on above: Performed By: #### G RASTCX, SSCRN ####[facility] [address] [address]Dr. Sarah Church CBC AUTO DIFFon 10-16-2021 BASO # 0.1 103/ul Normal 0.0-0.1 [facility] Comment on above: Performed By: #### C BC #### [facility] [address] [place] [address] Dr. Sarah Church Basophils/100 WBC (Bld) 0.8 % Normal 0.2-2.0 [facility] Comment on above: Performed By: #### C BC #### [facility] [address] [place] [address] Dr. Sarah Church EO # 0.3 103/ul Normal 0.0-0.7 [facility] Comment on above: Performed By: #### C BC #### [facility] [address] [place] [address] Dr. Sarah Church Eosinophils/100 WBC (Bld) 3.4 % Normal 0.9-7.0 [facility] Comment on above: Performed By: #### C BC #### [facility] [address] [place] [address] Dr. Sarah Church Erythrocyte distribution width (RBC) [Ratio] 12.6 % Normal 11.0-15.0 [facility] Comment on above: Performed By: #### C BC #### [facility] [address] [place] [address] Dr. Sarah Church Hematocrit (Bld) [Volume fraction] 45.4 % Normal 36.0-48.0 [facility] Comment on above: Performed By: #### C BC #### [facility] [address] [place] [address] Dr. Sarah Church Hemoglobin (Bld) [Mass/Vol] 15.0 g/dL Normal 12.0-16.0 [facility] Comment on above: Performed By: #### C BC #### [facility] [address] [place] [address] Dr. Sarah Church IG # 0.02 10e3/ul Normal 0.00-0.03 [facility] Comment on above: Performed By: #### C BC #### [facility] [address] [place] [address] Dr. Sarah hCurch IG % 0.2 % Normal 0.0-0.5 [facility] Comment on above: Performed By: #### C BC #### [facility] [address] [place] [address] Dr. Sarah Church LYMPH # 2.7 103/ul Normal 1.2-3.8 [facility] Comment on above: Performed By: #### C BC #### [facility] [address] [place] [address] Dr. Sarah Church Lymphocytes/100 WBC (Bld) 31.0 % Normal 20.5-60.0 [facility] Comment on above: Performed By: #### C BC #### [facility] [address] [place] [address] Dr. Sarah Church MANUAL DIFF REQ NO Normal [facility] Comment on above: Performed By: #### C BC #### [facility] [address] [place] [address] Dr. Sarah Church MCH (RBC) [Entitic mass] 29.3 pg Normal 26.7-34.0 [facility] Comment on above: Performed By: #### C BC #### [facility] [address] [place] [address] Dr. Sarah Church MCHC (RBC) [Mass/Vol] 33.0 g/dL Normal 29.9-35.2 [facility] Comment on above: Performed By: #### C BC #### [facility] [address] [place] [address] Dr. Sarah Church MCV (RBC) [Entitic vol] 88.7 fL Normal 81.0-99.0 [facility] Comment on above: Performed By: #### C BC #### [facility] [address] [place] [address] Dr. Sarah Church MONO # 0.6 103/ul Normal 0.3-0.8 [facility] Comment on above: Performed By: #### C BC #### [facility] [address] [place] [address] Dr. Sarah Church Monocytes/100 WBC (Bld) 6.5 % Normal 1.7-12.0 [facility] Comment on above: Performed By: #### C BC #### [facility] [address] [place] [address] Dr. Sarah Church NEUT # 5.0 103/ul Normal 1.4-6.5 [facility] Comment on above: Performed By: #### C BC #### [facility] [address] [place] [address] Dr. Sarah Church Neutrophils/100 WBC (Bld) 58.1 % Normal 43.0-75.0 [facility] Comment on above: Performed By: #### C BC #### [facility] [address] [place] [address] Dr. Sarah Church Platelet mean volume (Bld) [Entitic vol] 11.0 fL Normal 9.5-13.5 [facility] Comment on above: Performed By: #### C BC #### [facility] [address] [place] [address] Dr. Sarah Church PLT 226 103/ul Normal 150-450 [facility] Comment on above: Performed By: #### C BC #### [facility] [address] [place] [address] Dr. Sarah Church RBC 5.12 106/ul Normal 4.20-5.40 [facility] Comment on above: Performed By: #### C BC #### [facility] [address] [place] [address] Dr. Sarah Church WBC 8.6 103/ul Normal 4.0-11.0 [facility] Comment on above: Performed By: #### C BC #### [facility] [address] [place], [place] [address] Dr. Sarah Church GLYCOHEMOGLOBIN A1Con 2021 ADA RECOMMENDATION SEE BELOW Normal [facility] Comment on above: Result Comment: ADA RECOMMENDED LIMIT 4.0 - 6.0 ADA THERAPEUTIC TARGET < 7.0 ACTION SUGGESTED > 7.0 Performed By: #### A 1C ####[facility] [address] [address]Dr. Sarah Church Glucose [Mass/Vol] 275 mg/dL Normal [facility] Comment on above: Performed By: #### A 1C ####[facility] [address] [address]Dr. Sarah Church HbA1c (Bld) [Mass fraction] 11.2 % Critically high 4.5-6.2 [facility] Comment on above: Performed By: #### A 1C ####[facility] [address] [address]Dr. Sarah Church LIPID PROFILEon 10-16-2021 CHOL-HDL RATIO NORM SEE BELOW Normal [facility] Comment on above: Result Comment: 3.3 - 4.4 LOW RISK 4.4 - 7.1 AVERAGE RISK 7.1 - 11.0 MODERATE RISK >11.0 HIGH RISK Performed By: #### L IPID, CMP ####[facility] [address] [address]Dr. Sarah Church Cholesterol [Mass/Vol] 159 mg/dL Normal <=200 [facility] Comment on above: Performed By: #### L IPID, CMP ####[facility] [id number] Sarah Church Cholesterol in HDL [Mass/Vol] 41 mg/dL Normal 40-60 [facility] Comment on above: Performed By: #### L IPID, CMP ####[facility] [address] [id number] Sarah Church Cholesterol in LDL [Mass/Vol] 102.6 mg/dL Normal [facility] Comment on above: Performed By: #### L IPID, CMP ####[facility] [address] [id number] Sarah Church Cholesterol.total/Ch olesterol in HDL [Mass ratio] 3.9 {ratio} Normal [facility] Comment on above: Performed By: #### L IPID, CMP ####[facility] [id number] Sarah Church HDL NORMAL > or = 60 mg/dl - LOW CARDIOVASCULAR RISK <40 mg/dl - HIGH CARDIOVASCULAR RISK Normal [facility] Comment on above: Performed By: #### L IPID, CMP ####[facility] [address] [address]Dr. Sarah Church LDL CALC NORMAL SEE BELOW Normal [facility] Comment on above: Result Comment: <100 mg/dl OPTIMAL 100 - 129 mg/dl NEAR OR ABOVE OPTIMAL 130 - 159 mg/dl BORDERLINE HIGH 160 - 189 mg/dl HIGH >190 mg/dl VERY HIGH Performed By: #### L IPID, CMP ####[facility] [address] [id number][address] Sarah Church Triglyceride [Mass/Vol] 77 mg/dL Normal <=150 [facility] Comment on above: Performed By: #### L IPID, CMP ####[facility] [address] [phone][address] Sarah Church VLDL CALC 15.4 mg/dL Normal [facility] Comment on above: Performed By: #### L IPID, CMP ####[facility] [address] [phone][address] Sarah Church MICROALBUMIN, RAND URon 09-30 mALB 2.0 mg/L Normal <=30.0 [facility] Comment on above: Performed By: #### M ALBR #### [facility] [id number] Sarah Church PROF 14(COMP METB)on 022 Albumin [Mass/Vol] 3.5 g/dL Normal 3.4-5.0 [facility] Comment on above: Performed By: #### L IPID, CMP ####[facility] [address] [address]Dr. Sarah Church Albumin/Globulin [Mass ratio] 0.8 {ratio} Normal [facility] Comment on above: Performed By: #### L IPID, CMP ####[facility] [address] [address]Dr. Sarah Church ALP [Catalytic activity/Vol] 85 U/L Normal 46-116 [facility] Comment on above: Performed By: #### L IPID, CMP ####[facility] [address] [address]Dr. Sarah Church ALT [Catalytic activity/Vol] 59 U/L Normal 14-59 [facility] Comment on above: Performed By: #### L IPID, CMP ####[facility] [address] [address]Dr. Sarah Church Anion gap [Moles/Vol] 15.1 mmol/L Normal [facility] Comment on above: Performed By: #### L IPID, CMP ####[facility] [address] [place], [place] [address]Dr. Sarah Church AST [Catalytic activity/Vol] 32 U/L Normal 15-37 [facility] Comment on above: Performed By: #### L IPID, CMP ####[facility] [address] [place] [id number]. Sarah Church Bilirubin [Mass/Vol] 0.4 mg/dL Normal 0.2-1.0 [facility] Comment on above: Performed By: #### L IPID, CMP ####[facility] [address] [place] [address]Dr. Sarah Church Calcium [Mass/Vol] 9.0 mg/dL Normal 8.5-10.1 [facility] Comment on above: Performed By: #### L IPID, CMP ####[facility] [address] [place], [place] [address]Dr. Sarah Church Chloride [Moles/Vol] 102 mmol/L Normal 98-107 [facility] Comment on above: Performed By: #### L IPID, CMP ####[facility] [id number] [place] [phone]. Sarah Church CO2 [Moles/Vol] 30.2 mmol/L Normal 21.0-32.0 [facility] Comment on above: Performed By: #### L IPID, CMP ####[facility] [id number] [place] [phone]. Sarah Church Creatinine [Mass/Vol] 0.81 mg/dL Normal 0.55-1.02 [facility] Comment on above: Performed By: #### L IPID, CMP ####[facility] [address] [place] [address]Dr. Sarah Church EGFR-AF STATELESS >60 Normal >=60 [facility] Comment on above: Performed By: #### L IPID, CMP ####[facility] [address] [place], [place] [address]Dr. Sarah Ranjit EGFR-NON AF STATELESS >60 Normal >=60 [facility] Comment on above: Performed By: #### L IPID, CMP ####[facility] [address] [place] [phone]. Sarah Church Globulin (S) [Mass/Vol] 3.9 g/dL Normal [facility] Comment on above: Performed By: #### L IPID, CMP ####[facility] [address] [place] [address]Dr. Sarah Church Glucose [Mass/Vol] 218 mg/dL Critically high 74-106 T [facility] Comment on above: Performed By: #### L IPID, CMP ####[facility] [address] [place] [phone]. Sarah Church Potassium [Moles/Vol] 4.3 mmol/L Normal 3.5-5.1 [facility] Comment on above: Performed By: #### L IPID, CMP ####[facility] [address] [place] [phone]. Sarah Ranjit Protein [Mass/Vol] 7.4 g/dL Normal 6.4-8.2 [facility] Comment on above: Performed By: #### L IPID, CMP ####[facility] [address] [place] [phone]. Sarah Church Sodium [Moles/Vol] 143 mmol/L Normal 136-145 [facility] Comment on above: Performed By: #### L IPID, CMP ####[facility] [address] [place] [phone]. Sarah Church Urea nitrogen [Mass/Vol] 14.0 mg/dL Normal 7.0-18.0 [facility] Comment on above: Performed By: #### L IPID, CMP ####[facility] [address] [place] [phone]. Sarah Church Urea nitrogen/Creatinine [Mass ratio] 17.2 mg/mg Normal [facility] Comment on above: Performed By: #### L IPID, CMP ####[facility] [address] [place] [phone]. Sarah Church Vital Signs Date Time Vital Sign Value Performing Clinician Facility 08-07-2024 13:090400 Body height 157.48 cm Shayy Dela Cruz MD Work Phone: [facility] 08-07-2024 13:09-0400 Heart rate 85 /min Shayy Dela Cruz MD Work Phone: [facility] 08-07-2024 13:09-0400 Respiratory rate 18 /min Shayy Dela Cruz MD Work Phone: [facility] 08-07-2024 13:09-0400 SaO2% (BldA) [Mass fraction] 96 % Shayy Dela Cruz MD Work Phone: [facility] 06-14-2024 10:050 Body height 157.5 cm Nacho Patiño MD Work Phone: [facility] 06-14-2024 10:050 Body mass index (BMI) [Ratio] 38.59 kg/m2 Nacho Patiño MD Work Phone: [facility] 06-14-2024 10:21-0500 Body temperature 97.3 [degF] Nacho Patiño MD Work Phone: [facility] 06-14-2024 10:21-0500 Body weight 95.71 kg Nacho Patiño MD Work Phone: [facility] 06-14-2024 10:21-0500 Diastolic blood pressure 82 mm[Hg] Nacho Patiño MD Work Phone: [facility] 06-14-2024 10:21-0500 Heart rate 88 /min Nacho Patiño MD Work Phone: [facility] 06-14-2024 10:21-0500 SaO2% (BldA) [Mass fraction] 97 % Nacho Patiño MD Work Phone: [facility] 06-14-2024 10:21-0500 Systolic blood pressure 136 mm[Hg] Nacho Patiño MD Work Phone: [facility] 05-30-2024 10:48-0500 Body height 157.48 cm [facility] 05-30-2024 10:48-0500 Body mass index (BMI) [Ratio] 38.5 kg/m2 [facility] 05-30-2024 10:48-0500 Body weight 95.7 kg [facility] 05-30-2024 10:48-0500 Diastolic blood pressure 77 mm[Hg] [facility] 05-30-2024 10:48-0500 Heart rate 80 /min [facility] 05-30-2024 10:48-0500 Systolic blood pressure 133 mm[Hg] [facility] 02-23-2024 13:23-0400 Body height 157.48 cm [facility] 02-23-2024 13:23-0400 Body mass index (BMI) [Ratio] 38 kg/m2 [facility] 02-23-2024 13:23-0400 Body weight 94.37 kg [facility] 02-23-2024 13:23-0400 Diastolic blood pressure 78 mm[Hg] [facility] 02-23-2024 13:23-0400 Heart rate 75 /min [facility] 02-23-2024 13:23-0400 Respiratory rate 18 /min [facility] 02-23-2024 13:23-0400 SaO2% (BldA) [Mass fraction] 97 % [facility] 02-23-2024 13:23-0400 Systolic blood pressure 170 mm[Hg] [facility] 12-13-2023 13:03-0400 Body height 157.48 cm [facility] 12-13-2023 13:03-0400 Body mass index (BMI) [Ratio] 37.1 kg/m2 [facility] 12-13-2023 13:03-0400 Body weight 92.07 kg [facility] 12-13-2023 13:03-0400 Diastolic blood pressure 86 mm[Hg] [facility] 12-13-2023 13:03-0400 Heart rate 78 /min [facility] 12-13-2023 13:03-0400 Respiratory rate 18 /min [facility] 12-13-2023 13:03-0400 SaO2% (BldA) [Mass fraction] 96 % [facility] 12-13-2023 13:03-0400 Systolic blood pressure 153 mm[Hg] [facility] 12-05-2023 11:24-0400 Body height 157.48 cm [facility] 12-05-2023 11:24-0400 Body mass index (BMI) [Ratio] 36.9 kg/m2 [facility] 12-05-2023 11:24-0400 Body weight 91.62 kg [facility] 12-05-2023 11:24-0400 Diastolic blood pressure 75 mm[Hg] [facility] 12-05-2023 11:24-0400 Heart rate 80 /min [facility] 12-05-2023 11:24-0400 Systolic blood pressure 133 mm[Hg] [facility] 09-29-2023 13:44-0400 Diastolic blood pressure 76 mm[Hg] [facility] 09-29-2023 13:44-0400 Systolic blood pressure 130 mm[Hg] [facility] 09-29-2023 13:19-0400 Body height 157.48 cm [facility] 09-29-2023 13:19-0400 Body mass index (BMI) [Ratio] 38.7 kg/m2 [facility] 09-29-2023 13:19-0400 Body weight 95.9 kg [facility] 09-29-2023 13:19-0400 Heart rate 89 /min [facility] 09-29-2023 13:19-0400 Respiratory rate 18 /min [facility] 09-29-2023 13:19-0400 SaO2% (BldA) [Mass fraction] 98 % [facility] 09-06-2023 11:08-0400 Body height 157.48 cm [facility] 09-06-2023 11:08-0400 Body mass index (BMI) [Ratio] 37.6 kg/m2 [facility] 09-06-2023 11:08-0400 Body weight 93.44 kg [facility] 09-06-2023 11:08-0400 Diastolic blood pressure 72 mm[Hg] [facility] 09-06-2023 11:08-0400 Heart rate 89 /min [facility] 09-06-2023 11:08-0400 Systolic blood pressure 127 mm[Hg] [facility] 08-24-2023 15:08-0400 Body height 157.48 cm [facility] 08-24-2023 15:08-0400 Body mass index (BMI) [Ratio] 37.5 kg/m2 [facility] 08-24-2023 15:08-0400 Body weight 93.21 kg [facility] 08-19-2023 10:43-0400 Body height 157.48 cm MD Shayy Dela Cruz Work Phone: [facility] 08-19-2023 10:43-0400 Body mass index (BMI) [Ratio] 37.5 kg/m2 MD Shayy Dela Cruz Work Phone: [facility] 08-19-2023 10:43-0400 Body weight 93.09 kg MD Shayy Dela Cruz Work Phone: [facility] 08-19-2023 10:43-0400 Diastolic blood pressure 79 mm[Hg] MD Shayy Dela Cruz Work Phone: [facility] 08-19-2023 10:43-0400 Heart rate 83 /min MD Shayy Dela Cruz Work Phone: [facility] 08-19-2023 10:43-0400 Systolic blood pressure 135 mm[Hg] MD Shayy Dela Cruz Work Phone: [facility] 07-28-2023 14:22-0400 Body height 157.48 cm MD Shayy Dela Cruz Work Phone: [facility] 07-28-2023 14:22-0400 Body mass index (BMI) [Ratio] 37.6 kg/m2 MD Shayy Dela Cruz Work Phone: [facility] 07-28-2023 14:22-0400 Body weight 93.44 kg MD Shayy Dela Cruz Work Phone: [facility] 07-28-2023 14:22-0400 Diastolic blood pressure 84 mm[Hg] MD Shayy Dela Cruz Work Phone: [facility] 07-28-2023 14:22-0400 Heart rate 83 /min MD Shayy Dela Cruz Work Phone: [facility] 07-28-2023 14:22-0400 Respiratory rate 18 /min MD Shayy Dela Cruz Work Phone: [facility] 07-28-2023 14:22-0400 SaO2% (BldA) [Mass fraction] 97 % MD Shayy Dela Cruz Work Phone: [facility] 07-28-2023 14:22-0400 Systolic blood pressure 140 mm[Hg] MD Shayy Dela Cruz Work Phone: [facility] 07-19-2023 10:57-0400 Body height 157.48 cm MD Shayy Dela Cruz Work Phone: [facility] 07-19-2023 10:57-0400 Body mass index (BMI) [Ratio] 37.1 kg/m2 MD Shayy Dela Cruz Work Phone: [facility] 07-19-2023 10:57-0400 Body weight 92.07 kg MD Shayy Dela Cruz Work Phone: [facility] 07-19-2023 10:57-0400 Diastolic blood pressure 68 mm[Hg] MD Shayy Dela Cruz Work Phone: [facility] 07-19-2023 10:57-0400 Heart rate 89 /min MD Shayy Dela Cruz Work Phone: [facility] 07-19-2023 10:57-0400 Systolic blood pressure 132 mm[Hg] MD Shayy Dela Cruz Work Phone: [facility] 05-25-2023 11:00-0500 Body height 157.48 cm Cathie Scally Other [facility] 05-25-2023 11:00-0500 Body mass index (BMI) [Ratio] 37.23 kg/m2 Cathie Scally Other [facility] [employer] Other 05-25-2023 11:00-0500 Body weight 92.35 kg Cathie Scally Other [facility] 05-25-2023 11:00-0500 Diastolic blood pressure 71 mm[Hg] Cathie Scally Other [facility] 05-25-2023 11:00-0500 Respiratory rate 18 /min Cathie Scally Other [facility] [employer] Other 05-25-2023 11:00-0500 SaO2% (BldA) [Mass fraction] 95 % Cathie Scally Other [facility] [employer] Other 05-25-2023 11:00-0500 Systolic blood pressure 139 mm[Hg] Cathie Scally Other [facility] 04-15-2023 11:00-0500 Body height 157.48 cm Shayy Dela Cruz Other [facility] 04-15-2023 11:00-0500 Body mass index (BMI) [Ratio] 37.49 kg/m2 hSayy Dela Cruz Other [facility] [employer] Other 04-15-2023 11:00-0500 Body weight 92.99 kg Shayy Dela Cruz Other [facility] [employer] Other 04-15-2023 11:00-0500 Body weight 92.98 kg MD Shayy Dela Cruz Work Phone: [facility] 04-15-2023 11:00-0500 Diastolic blood pressure 84 mm[Hg] Shayy Dela Cruz Other [facility] 04-15-2023 11:00-0500 Systolic blood pressure 142 mm[Hg] Shayy Dela Cruz Other [facility] 06-22-2022 13:30-0500 Body height 157.48 cm Shayy Dela Cruz Other [employer] Other 06-22-2022 13:30-0500 Body mass index (BMI) [Ratio] 36.94 kg/m2 Shayy Dela Cruz Other [employer] Other 06-22-2022 13:30-0500 Body weight 91.63 kg Shayy Dela Cruz Other [employer] Other 06-22-2022 13:30-0500 Diastolic blood pressure 74 mm[Hg] Shayy Dela Cruz Other [employer] Other 06-22-2022 13:30-0500 SaO2% (BldA) [Mass fraction] 97 % Shayy Dela Cruz Other [employer] Other 06-22-2022 13:30-0500 Systolic blood pressure 112 mm[Hg] Shayy Dela Cruz Other [facility] [employer] Other Encounters Encounter Date Encounter Type Care Provider Facility Start: 08-07-2024 End: 08-07-2024 ambulatory Shayy Dela Cruz MD Work Phone: [facility] Work Phone: Start: 08-07-2024 End: 08-07-2024 Patient encounter procedure Shayy Dela Cruz MD Work Phone: [facility] Work Phone: Start: 07-19-2024 Non-patient / Non-visit Shayy Dela Cruz MD Work Phone: [facility] Work Phone: Start: 07-05-2024 End: 07-05-2024 ambulatory Shayy Dela Cruz MD Work Phone: [facility] Work Phone: Start: 07-05-2024 End: 07-05-2024 Departed Referred Shayy Dela Cruz MD Work Phone: [facility] Start: 06-21-2024 Non-patient / Non-visit Shayy Dela Cruz MD Work Phone: [facility] Work Phone: Start: 06-20-2024 Non-patient / Non-visit Shayy Dela Cruz MD Work Phone: [facility] Work Phone: Start: 06-19-2024 End: 06-19-2024 [facility] Start: 06-19-2024 Non-patient / Non-visit Shayy Dela Cruz MD Work Phone: [facility] Work Phone: Start: 06-14-2024 End: 06-14-2024 Office outpatient new 30 minutes Nacho Patiño MD Work Phone: [facility] Comment on above: 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) Start: 06-14-2024 End: 06-14-2024 ambulatory NACHO PATIÑO [facility] Start: 06-13-2024 Non-patient / Non-visit Shayy Dela Cruz MD Work Phone: [facility] Work Phone: Start: 06-12-2024 Non-patient / Non-visit Shayy Dela Cruz MD Work Phone: [facility] Work Phone: Start: 06-07-2024 Non-patient / Non-visit Shayy Dela Cruz MD Work Phone: [facility] Work Phone: Start: 06-01-2024 Non-patient / Non-visit Shayy Dela Cruz MD Work Phone: [facility] Work Phone: Start: 05-30-2024 Patient encounter status Shayy Dela rCuz MD Work Phone: [facility] Start: 05-30-2024 End: 05-30-2024 ambulatory [facility] Work Phone: Start: 05-30-2024 End: 05-30-2024 Encounter for general adult medical examination without abnormal findings Shayy Dela Cruz MD Work Phone: [facility] Start: 05-30-2024 End: 05-30-2024 Patient encounter procedure [facility] Work Phone: Start: 05-24-2024 End: 05-24-2024 ambulatory [facility] Work Phone: Start: 05-24-2024 End: 05-24-2024 Patient encounter procedure [facility] Work Phone: Start: 05-16-2024 Non-patient / Non-visit [facility] Work Phone: Start: 05-07-2024 Non-patient / Non-visit [facility] Work Phone: Start: 04-19-2024 End: 04-19-2024 Patient encounter procedure [facility] Work Phone: Start: 02-28-2024 Non-patient / Non-visit [facility] Work Phone: Start: 02-23-2024 End: 02-23-2024 [facility] Start: 02-23-2024 End: 02-23-2024 Patient encounter procedure [employer] Cathie Angulo Work Phone: [facility] Work Phone: Start: 02-23-2024 End: 02-23-2024 ambulatory [facility] Work Phone: Start: 02-23-2024 End: 02-23-2024 Patient encounter procedure [facility] Work Phone: Start: 01-17-2024 End: 01-17-2024 ambulatory [facility] Work Phone: Start: 01-17-2024 End: 01-17-2024 Patient encounter procedure [facility] Work Phone: Start: 12-13-2023 End: 12-13-2023 ambulatory [facility] Work Phone: Start: 12-13-2023 End: 12-13-2023 Patient encounter procedure [facility] Work Phone: Start: 12-05-2023 End: 12-05-2023 ambulatory [facility] Work Phone: Start: 12-05-2023 End: 12-05-2023 Patient encounter procedure [facility] Work Phone: Start: 11-07-2023 End: 11-07-2023 ambulatory [facility] Work Phone: Start: 11-07-2023 End: 11-07-2023 Patient encounter procedure [facility] Work Phone: Start: 09-29-2023 End: 09-29-2023 ambulatory [facility] Work Phone: Start: 09-29-2023 End: 09-29-2023 Patient encounter procedure [facility] Work Phone: Start: 09-06-2023 End: 09-06-2023 ambulatory [facility] Work Phone: Start: 09-06-2023 End: 09-06-2023 Patient encounter procedure [facility] Work Phone: Start: 08-24-2023 End: 08-24-2023 ambulatory [facility] Work Phone: Start: 08-24-2023 End: 08-24-2023 Patient encounter procedure [facility] Work Phone: Start: 08-19-2023 End: 08-19-2023 ambulatory MD Shayy Dela Cruz Work Phone: [facility] Work Phone: Start: 08-19-2023 End: 08-19-2023 Patient encounter procedure MD Shayy Dela Cruz Work Phone: [facility] Work Phone: Start: 07-28-2023 End: 07-28-2023 ambulatory MD Shayy Dela Cruz Work Phone: [facility] Work Phone: Start: 07-28-2023 End: 07-28-2023 Patient encounter procedure MD Shayy Dela Cruz Work Phone: [facility] Work Phone: Start: 07-19-2023 End: 07-19-2023 ambulatory MD Shayy Dela Cruz Work Phone: [facility] Work Phone: Start: 07-19-2023 End: 07-19-2023 Patient encounter procedure MD Shayy Dela Cruz Work Phone: [facility] Work Phone: Start: 07-12-2023 Non-patient / Non-visit MD Qi Dela Cruz Work Phone: [facility] Work Phone: Start: 06-14-2023 End: 06-14-2023 ambulatory MD Shayy Dela Cruz Work Phone: [facility] Work Phone: Start: 06-14-2023 End: 06-14-2023 Patient encounter procedure MD Shayy Dela Cruz Work Phone: [facility] Work Phone: Start: 06-06-2023 End: 06-06-2023 ambulatory Shayy Dela Cruz Other [employer] Other Start: 06-06-2023 Telephone encounter Shayy Dela Cruz [facility] Start: 05-25-2023 [facility] visit new patient Cathie Sheikh y [facility] Start: 05-25-2023 End: 05-25-2023 ambulatory MD Shayy Dela Cruz Work Phone: [facility] [employer] Other Start: 05-25-2023 End: 05-25-2023 Discharged Recurring MD Shayy Dela Cruz Work Phone: [facility] Work Phone: Start: 05-25-2023 Registered Recurring MD [facility] Work Phone: Start: 05-25-2023 End: 05-25-2023 Patient encounter procedure MD Shayy Dela Cruz Work Phone: [facility]- Start: 05-12-2023 End: 05-12-2023 ambulatory Shayy Dela Cruz Other [employer] Other Start: 05-12-2023 Telephone encounter Shayy Dela Cruz [facility] Start: 05-10-2023 End: 05-10-2023 ambulatory Shayy Dela Cruz Other [employer] Other Start: 05-10-2023 Telephone encounter Shayy Dela Cruz [facility] Start: 04-22-2023 End: 04-22-2023 ambulatory Shayy Dela Cruz Other [employer] Other Start: 04-22-2023 Telephone encounter Shayy Dela Cruz [facility] Start: 04-20-2023 End: 04-20-2023 ambulatory Lynne Austint Other [employer] Other Start: 04-20-2023 Telephone encounter Lynne Fitt [facility] Start: 04-18-2023 End: 04-18-2023 ambulatory Lynne Austint Other [employer] Other Start: 04-18-2023 Telephone encounter Lynne Austint [facility] Start: 04-15-2023 End: 04-15-2023 ambulatory Shayy Dela Cruz Other [employer] Other Start: 04-15-2023 Office outpatient vi sit 15 minutes Shayy Dela Cruz [facility] Start: 04-15-2023 End: 04-15-2023 Patient encounter procedure MD Shayy Dela Cruz Work Phone: [facility] Work Phone: Start: 04-06-2023 End: 04-06-2023 ambulatory Shayy Dela Cruz Other [employer] Other Start: 04-06-2023 Telephone encounter Shayy Dela Cruz [facility] Start: 02-25-2023 End: 02-25-2023 ambulatory Shayy Dela Cruz Other [employer] Other Start: 02-25-2023 Telephone encounter Shayy Dlea Cruz [facility] Start: 10-29-2022 End: 10-29-2022 ambulatory Shayy Dela Cruz Other [employer] Other Start: 10-29-2022 Telephone encounter Shayy Dela Cruz [facility] Start: 08-27-2022 End: 08-28-[address] SHAYY DELA CRUZ Facility:[facility] Start: 07-20-2022 End: 07-21-[address] SHAYY DELA CRUZ Facility:[facility] Start: 07-19-2022 End: 07-19-2022 ambulatory Shayy Dela Cruz Other [employer] Other Start: 07-19-2022 Telephone encounter Shayy Dela Cruz [facility] Start: 07-12-2022 End: 07-13-[address] SHAYY DELA CRUZ Facility:[facility] Start: 07-05-2022 End: 07-05-2022 ambulatory Shayy Dela Cruz Other [employer] Other Start: 07-05-2022 Telephone encounter Shayy Dela Cruz [facility] Start: 06-28-2022 End: 06-28-2022 ambulatory Shayy Dela Cruz Other [employer] Other Start: 06-28-2022 Telephone encounter Shayy Dela Cruz [facility] Start: 06-22-2022 End: 06-22-2022 ambulatory Shayy Dela Cruz Other [employer] Other Start: 06-22-2022 Office outpatient vi sit 15 minutes Shayy Dela Cruz [facility] Start: 05-27-2022 End: 05-27-2022 ambulatory Shayy Dela Cruz Other [facility] [employer] Other Start: 05-27-2022 Telephone encounter Shayy Dela Cruz [facility] Start: 05-19-2022 End: 05-20-[address] SHAYY [...] Start: 05-10-2017 End: 05-11-2017 Ambulatory DEFAULT PHYSICIAN Facility:[facility] Start: 05-05-2017 End: 05-06-2017 Ambulatory DEFAULT PHYSICIAN Facility:[facility] Procedures Date Procedure Procedure Detail Performing Clinician History of amputatio n of lesser toe H/O amputation of lesser toe Shayy Dela Cruz MD Work Phone: Comment on above: left foot Plan of Treatment Date Care Activity Detail Author Start: 01-01-2024 Influenza vaccination Influenza Vaccine [facility] Start: 01-15-2022 Administration of varicella zoster vaccine Zoster (Shingles) Vaccine (1 of 2) [facility] Start: 01-15-1993 Screening for malignant neoplasm of cervix [facility] Start: 01-15-1991 DTaP,Tdap and Td Vaccines (1 - Tdap) DTaP,Tdap and Td Vaccines (1 - Tdap) [facility] Start: 01-15-1990 Adult BMI Screening Adult [facility]ening [facility] Start: 1984 Depression Screening Depression Screening [facility] Start: 1984 Tobacco Screening Tobacco Screening [facility] Comprehensive metabo lic 2000 panel - Serum or Plasma [facility] MG Breast - bilatera l Screening [facility] Immunizations Immunization Date Immunization Notes Care Provider Fa melinda 02-01-2022 influenza virus vaccine, split virus (incl. purified surface antigen) Shayy Dela Cruz Other [employer] Other 02-01-2022 influenza virus vaccine, unspecified formulation MD Shayy Dela Cruz Work Phone: [facility] Payers Date Payer Category Payer Medicare HMO ANTH MEDICARE [id number] 2017 Medicaid MEDICAID [facility] [id number] 2017 Unknown [id number] 1972 Unknown [id number] 1972 Unknown [id number] 1972 Unknown [id number] [id number] 1972 Unknown [id number] [id number] 1972 Unknown [id number] [id number] 1972 Unknown [id number] [id number] 1972 Unknown [id number] [id number] 1972 Unknown [id number] [id number] 1972 Unknown [id number] [id number] 1972 Unknown [id number] [id number] 1959 Medicaid [id number] 1959 Medicare [id number] Medicare Medicare [id number] Unknown Social History Date Type Detail Facility Unknown if ever smoked [facility] [employer] Other Start: 06-14-2024 Sex Assigned At [employer] Other Start: 1970 Sex Assigned At Female [facility] Start: 07-19-2023 End: 05-25-2024 Tobacco smoking status NHIS Never smoked tobacco (finding) [facility] Start: 05-24-2024 End: 08-07-2024 Sex Female (finding) [facility] Start: 06-14-2024 Tobacco use and exposure Smokeless tobacco non-user [facility] Start: 06-14-2024 Alcoholic beverage intake Lifetime non-drinker (finding) [facility] Start: 06-14-2024 History of Social function [facility] Within the past 12 months we worried whether our food would run out before we got money to buy more. [facility] Start: 1970 Sex assigned at Not on file [facility] NEGATED: Highlighted row [facility] Medical Equipment Procedure Code Equipment Code Equipment [...] scheduled for 06/21/[address] Bruce at [facility]. She had EKG, CXR, and labs [...] scheduled for 06/21/[address] Bruce at [facility]. She had EKG, CXR, and labs [...] Active Problem List Diagnosis Coronary arteriosclerosis in [place] artery Old myocardial infarction Sinusitis Type 1 [...] is normal sized. (more content not included)... [facility] 06-14-2024 Evaluation + Plan note Associated Problem(s): Gangrene of toe of left foot ([facility]) Osteomyelitis and gangrenous changes of the left second and third and may be the fourth toe.She has normal PVR with toe pressure and normal HIEU and toe pressure index.I discussed with her that there is no VASc intervention needed at this time. She needs his aggressive blood sugar control IV antibiotics likely toe amputation by podiatry and risk factors modification. [facility] 06-14-2024 Miscellaneous Notes Associated Problem(s): Gangrene of toe of left foot ([facility]) Osteomyelitis and gangrenous changes of the left [...] risk factors modification. documented in this encounter [facility] 06-14-2024 History of Presen t [...] Past Medical History: Diagnosis Date Diabetes mellitus ([facility]) Past Surgical History: No past surgical history [...] Interpersonal Safety: Unknown (06/23/2023) Received from [facility] Environment Fear of Current [...] Nacho Patiño MD, SELMA, RPVI, FSVS, FACS [facility] This note was created with the assistance of a speech recognition program. While intending to generate a timely document that accurately reflects the content of the visit, no guarantee can be provided that every grammatical or spelling mistake has been or will be identified or corrected. Thank you for your understanding. documented in this encounter [facility] 05-24-2024 Evaluation note Diagnosis Onset Date Resolution [...] 1:05pm Vitamin D deficiency acute 2024 1:05pm [facility] Work Phone: 1(459) 636-561312-19-2024 Evaluation note* Diagnosis Onset Date Resolution Status Admit Date Type 2 diabetes mellitus acute April 19, 2024 2:03pm [facility] Work Phone: 1(130) 485-711812-19-2024 Evaluation note* Diagnosis Onset Date Resolution Status Admit Date Type 2 diabetes mellitus acute April 19, 2024 2:03pm Type 2 diabetes mellitus acute May 24, 2024 12:54pm [facility] Work Phone: [phone]) 537-630812-19-2024 Evaluation note* Diagnosis Onset Date Resolution Status Admit Date Type 2 diabetes mellitus acute April 19, 2024 2:03pm Type 2 diabetes mellitus acute May 24, 2024 12:54pm Colon cancer screening acute Chente barragan 2024 10:42am Long-term insulin use acute Nic gloria 2024 10:42am Type 2 diabetes mellitus acute May 30, 2024 10:42am Wellness examination acute Geovanny pacheco 2024 10:42am [facility] Work Phone: [phone]) 186-359902-05-2024 Evaluation note* Encounter Date Diagnosis Assessment Notes Treatment Notes Treatment Clinical Notes Jun, Controlled type 2 diabetes mellitus with hyperglycemia, unspecified whether assisted insulin use (ICD-10 - E11.65) [facility] [employer] Other 01-24-2024 Evaluation note* Encounter Date Diagnosis [...] issues. 6. Prescriptions: New patient 05-25-2023 uses [facility]. May, Vitamin D deficiency (ICD-10 - E55.9) [...] Instructions material was published to portal May, [facility] current use of insulin (ICD-10 - Z79.4) May, BMI 37.0-37.9, adult (ICD-10 - Z68.37) May, Other 05/25/2023 The patient was given a Dexcom G7 sensor sample and an [employer] [place]. She was taught how to use the [...] the patient by Nguyễn Norwood RN, [facility]. [employer] Other 12-15-2023 Evaluation note* Encounter Date Diagnosis Assessment Notes Treatment Notes Treatment Clinical Notes Apr, Type 2 diabetes mellitus with hyperglycemia (ICD-10 - E11.65) Rx handwritten for diabetic shoes. Pt agrees to referral to specialty clinic. Continue present meds and discussed healthy diet in meantime. 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 She declines and will continue meds, followup in 3 months, and recheck labs at that time. She is eating more of a keto diet and is certain that is helping her A1C improve. Jun, Screening mammogram for breast cancer (ICD-10 - Z12.31) Zoila will call for an appt [employer] Other [id number] NotePROCEDURE: XR FOOT LT MIN 3 VIEWS [...] Electronically authenticated by: NARINDER LAN Date: 2022-04-15 06:08[facility]09-12-2022 NotePROCEDURE: XR TOES RT MIN 2 V HISTORY: Pain of toe of right foot ; first toe pain following injury COMPARISON: None. FINDINGS: BONES:No fracture, acute abnormality, or significant arthropathy. SOFT TISSUES:No visible soft tissue swelling. EFFUSION:None visible. OTHER: Negative. IMPRESSION: 1. No acute bone abnormality. 2. Mild degenerative joint disease. Electronically authenticated by: NARINDER LAN Date: 2022-01-11 18:48[facility] complaint+Reason for visit Narrative* Chief Complaint 3 Month Follow Up Referral Dr. Negro LAGUERRE download [facility] Work Phone: chief complaint+Reason for visit Narrative* Chief Complaint 3 Month Follow Up Referral Dr. Negro [place] download Reason for Visit Type 2 diabetes holli [facility] Work Phone: chief complaint+Reason for visit Narrative* Chief Complaint Referral Dr. Negro LAGU[place] download 3 Month Check up Reason for Visit Type 2 diabetes holli [facility] Work Phone: chief complaint+Reason for visit Narrative* Chief Complaint Referral Dr. Nergo LAGUERRE download 3 Month Check up amrik reader Reason for Visit Type 2 diabetes holli [facility] Right wrist fracture Type 2 diabetes mellitus [facility] Work Phone: chief complaint+Reason for visit Narrative* [...] mellitus Vitamin D deficiency Gastroesophageal reflux disease [facility] Work Phone: Evaluation noteNo InformationNort [employer] Other evaluation noteNo assessment information available [facility] Work Phone: evaluation note* Diagnosis Onset Date Resolution Status Type 2 diabetes mellitus acu te [facility] Work Phone: evaluation note* Diagnosis Onset Date Resolution Status Type 2 diabetes mellitus acu te Right wrist fracture acute Type 2 diabetes mellitus acu te [facility] Work Phone: evaluation note* Diagnosis Onset Date Resolution Status Type 2 diabetes mellitus acu te Right wrist fracture acute Type 2 diabetes mellitus acu te BMI 37.0-37.9, adult acute Dietary counseling and surveillance acute History of myocardial infarction acute HTN (hypertension) acute Hyperlipidemia acute Long-term insulin use acute Type 2 diabetes mellitus acu te Vitamin D deficiency acute Gastroesophageal reflux disease acute [facility] Work Phone: evaluation note* Diagnosis Onset Date [...] acute Type 2 diabetes mellitus acu te [facility] Work Phone: evaluation note* Diagnosis Onset Date [...] acute Type 2 diabetes mellitus acu te [facility] Work Phone: evaluation note* Diagnosis Onset Date [...] acute Type 2 diabetes mellitus acu te [facility] Work Phone: evaluation note* Diagnosis Onset Date [...] te Screening mammogram for breast cancer acute [facility] Work Phone: evaluation note* Diagnosis Onset Date [...] mellitus acu te Vitamin D deficiency acute [facility] Work Phone: evaluation note* Diagnosis Onset Date [...] acute Type 2 diabetes mellitus acu te [facility] Work Phone: evaluation note* Diagnosis Onset Date [...] mellitus acu te Vitamin D deficiency acute [facility] Work Phone: Evaluation note* Diagnosis Gangrene of toe of left foot ([facility])- Primary [facility] in [facility] Narrative - Reported* Type Description Date Medical History Herpes labialis Medical History Candidiasis of mouth Medical History Type 2 diabetes holli itus with diabetic polyneuropathy, unspecified whether assisted insulin use Medical History Controlled type 2 di abetes mellitus with hyperglycemia, unspecified whether assisted insulin use Medical History Obesity Medical History Dyslipidemia Medical History CAD in [place] artery Medical History Asthma, intermittent Medical History [...] History appendectomy Surgical History 7 stents 1999 [employer] Other [facility] general Narrative - Reported* Type Description Date Medical History Herpes labialis Medical History Candidiasis of mouth Medical History Type 2 diabetes holli itus with diabetic polyneuropathy, 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 Medical History Controlled type 2 di abetes mellitus with hyperglycemia, unspecified whether assisted insulin use Medical History Obesity Medical History Dyslipidemia Medical History CAD in [place] artery Medical History Asthma, intermittent Medical History [...] stents 1999 Hospitalization History see surgical history [employer] Other Hisvzgf general Narrative - Reported* Type Description Date Medical History Herpes labialis Medical History Candidiasis of mouth Medical History Type 2 diabetes holli itus with diabetic polyneuropathy, 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 Medical History Controlled type 2 di abetes mellitus with hyperglycemia, unspecified whether assisted insulin use Medical History Obesity Medical History Dyslipidemia Medical History CAD in [place] artery Medical History Asthma, intermittent Medical History [...] coronary 1999 Hospitalization History see surgical history [employer] Other InstructionsNot on filedocumented in this encounter [employer] Summary Purpose Family History Relationship Condition Age [...] [facility] Referred Organization [facility] Referred Provider Marcia Mendes Referred Address [address],[place], [place],[address] Referred Provider Specialty Nurse Huey saldaña Referral [...] breast cancer Chief Complaint DMN f/u / amrki read er DL 5 week 3 month [...] section and content) DATE CREATED AUTHOR 10/25/2017 [facility] DATE CREATED AUTHOR AUTHOR'S ORGANIZ ATION 09/03/2022 [facility] DATE CREATED AUTHOR AUTHOR'S ORGANIZ ATION 06/16/2024 [facility] DATE CREATED AUTHOR AUTHOR'S ORGANIZ ATION 06/30/2024 [facility] DATE CREATED AUTHOR AUTHOR'S ORGANIZ ATION 07/13/2024 [facility] REASON FOR VISIT (unrecogniz ed [...] End: May 24, 2024 Cathiesay Vargas , LOADMASTER Active Star t: May 24, 2024 End: [...] End: August 24, 2023 Cathie Vargas , LOADMASTER Active Star t: August 24, 2023 End: August 24, 2023 Team Status: Inactive Member Role Status Dates Shayy Dela Cruz MD Primary Care Provide r, Attending Provider Active Start: September 06, 2023 End: September 06, 2023 Team Status: Inactive Member Role Status Dates Shayy Dela Cruz MD Primary Care Provider Active Start: September 29, 2023 End: September 29, 2023 Cathie Vargas , LOADMASTER Attending Provider Active Start: September 29, 2023 End: September 29, 2023 Team Status: Inactive Member Role Status Dates Shayy Dela Cruz MD Primary Care Provider Active Start: November 07, 2023 End: November 07, 2023 Curtis Norwood RN Attending Provider Active St art: November 07, 2023 End: November 07, 2023 Cathie Vargas , LOADMASTER Active Star t: November 07, 2023 End: [...] End: July 28, 2023 Cathie Vargas , LOADMASTER Attending Provider Active Start: July 28, 2023 End: July 28, 2023 Team Status: Inactive Member Role Status Dates Shayy Dela Cruz MD Attending Provider Active St art: April 15, 2023 End: April 15, 2023 Team Status: Inactive Member Role Status Dates Cathie Vargas , LOADMASTER Attending Provider Active Start: May 25, 2023 [...] End: June 14, 2023 Cathie Vargas , LOADMASTER Active Star t: June 14, 2023 End: [...] 13, 2023 End: December 13, 2023 Cathie Vragas , LOADMASTER Attending Provider Active Start: December 13, 2023 End: December 13, 2023 Team Status: Inactive Member Role Status Dates Shayy Dela Cruz MD Primary Care Provider Active Start: January 17, 2024 End: January 17, 2024 Cathie Vargas , LOADMASTER Active Star t: January 17, 2024 End: [...] BE BASED ON THE PRIMARY CLINICAL RECORDS. [facility] [employer] [facility]. provides no warranty or guarantee of the accuracy or completeness of information in this document.
--- NOTE | 2024-08-19 20:53 | ED_ITS ---
HPI HPI - Back Pain/Injury General Chief Complaint: Back Pain/Injury Stated Complaint: backside pain, here on tuesday Time Seen by Provider: 08/19/24 20:31 Source: patient Mode of arrival: walk-in Limitations: no limitations History of Present Illness HPI Narrative: This 54-year-old female with a history of diabetes who was seen here on Tuesday with right buttock pain and diagnosed with a strain in the buttock and sent home with muscle relaxants but no pain medication presents for evaluation of ongoing right buttock pain. She denies any injury. She states the muscle relaxants are not helping her. She has not had any fever. There is no radiation into her abdomen or groin. She has no pain down her leg. She did recently have left foot surgery due to osteomyelitis of the 2nd and 3rd toes and states that she had been lying on her back a lot over the course of the past 5 weeks. Related Data Home Medications ?Medication ?Instructions ?Recorded ?Confirmed albuterol sulfate 90 mcg/actuation 2 inh inhalation PRN PRN shortness 12/31/22 06/19/24 aerosol inhaler of breath or wheezing aspirin 81 mg capsule 81 mg PO DAILY 12/31/22 06/19/24 atorvastatin 40 mg tablet 40 mg PO DAILY 12/31/22 06/19/24 carvedilol 6.25 mg tablet 6.25 mg PO Q12H 12/31/22 07/05/24 esomeprazole magnesium 40 mg 40 mg PO Q24H 12/31/22 06/19/24 capsule,delayed release fluticasone propionate 110 3 puff inhalation PRN PRN 12/31/22 07/05/24 mcg/actuation HFA aerosol inhaler bronchospasm (Flovent HFA) glipizide 10 mg tablet 5 mg PO BID 12/31/22 07/05/24 insulin glargine U-300 conc 300 95 unit subcut QAM 12/31/22 07/05/24 unit/mL (1.5 mL) subcutaneous pen (Toujameso SoloStar U-300 Insulin) insulin lispro 100 unit/mL 1 sliding scale dose subcut TID 12/31/22 07/05/24 subcutaneous pen losartan 25 mg tablet 25 mg PO DAILY 12/31/22 07/05/24 metformin 1,000 mg tablet 500 mg PO BID 12/31/22 07/05/24 famotidine 20 mg tablet 20 mg PO QPM 04/19/24 07/05/24 nitroglycerin 0.4 mg sublingual 0.4 mg sublingual Q5M PRN chest 04/19/24 06/19/24 tablet pain fluticasone propionate 50 2 spray intranasal DAILY 06/19/24 07/05/24 mcg/actuation nasal spray,suspension hydrocodone 5 mg-acetaminophen 325 1 tab PO Q6H PRN pain 06/19/24 07/05/24 mg tablet Previous Rx's ?Medication ?Instructions ?Recorded amoxicillin 875 mg-potassium 1 tab PO Q12H #20 tabs 06/07/24 clavulanate 125 mg tablet sulfamethoxazole 800 1 tab PO BID #20 tabs 06/07/24 mg-trimethoprim 160 mg tablet (Bactrim DS) ondansetron 4 mg disintegrating 4 mg PO Q6H PRN nausea and 06/19/24 tablet vomiting #20 tabs cyclobenzaprine 10 mg tablet 10 mg PO TID PRN muscle spasm #14 08/17/24 tabs Allergies Allergy/AdvReac Type Severity Reaction Status Date / Time tomato Allergy Severe Nausea Verified 06/19/24 17:29 latex Allergy Intermediate itch Verified 06/19/24 17:29 insulin lispro Allergy Mild Rash Verified 06/19/24 17:29 codeine Allergy Vomiting Verified 06/19/24 17:29 Opioid HPI Opioid Management Most Recent Opioid Data: Last Pain Scale 10 08/19/24 20:42 08/19/24 Last MAR Pain Assessment 08/17/24 15:17 Review of Systems ROS Status of ROS 10 or more systems reviewed and unremark able except as noted in history and below [facility] Medical History (Updated 08/19/24 @ 22:31 by Shelly Gaviria MD) Menopause ?Z78.0 - Asymptomatic menopausal state (ICD-10) Deep vein thrombosis ?I82.409 - Acute embolism and thrombosis of unspecified deep veins of unspecified lower extremity (ICD-10) Asthma ?J45.909 - Unspecified asthma, uncomplicated (ICD-10) Dyspnea on exertion ?R06.09 - Other forms of dyspnea (ICD-10) Nausea ?R11.0 - Nausea (ICD-10) Neuropathy ?G62.9 - Polyneuropathy, unspecified (ICD-10) CAD (coronary artery disease) ?I25.10 - Atherosclerotic heart disease of [place] coronary artery without angina pectoris (ICD-10) Toe necrosis ?I96 - Gangrene, not elsewhere classified (ICD-10) Diabetes ?E11.9 - Type 2 diabetes mellitus without complications (ICD-10) Diabetic foot ulcer ?E11.621 - Type 2 diabetes mellitus with foot ulcer (ICD-10) ?L97.509 - Non-pressure chronic ulcer of other part of unspecified foot with unspecified severity (ICD-10) Disorder of arteries and arterioles ?I77.9 - Disorder of arteries and arterioles, unspecified (ICD-10) Chronic osteomyelitis involving left ankle and foot ?M86.672 - Other chronic osteomyelitis, left ankle and foot (ICD-10) Gangrene ?I96 - Gangrene, not elsewhere classified (ICD-10) Surgical History (Updated 06/19/24 @ 13:36 by Clarissa Navarrete NP) History of appendectomy ?Z90.49 - Acquired absence of other specified parts of digestive tract (ICD- 10) History of cholecystectomy ?Z90.49 - Acquired absence of other specified parts of digestive tract (ICD- 10) History of arthroscopy of shoulder ?Z98.890 - Other specified postprocedural states (ICD-10) S/P arterial stent (~2002) ?Z95.9 - Presence of cardiac and vascular implant and graft, unspecified (ICD-10) Family History (Updated 06/19/24 @ 13:36 by Clarissa Navarrete NP) Other Family history of diabetes mellitus Family history of heart disease Family history of hypertension Family history of myocardial infarction Social History (Updated 06/19/24 @ 13:31 by Clarissa Navarrete NP) Within the past year, how often did you have a drink containing alcohol: never Score interpretation: A score less than 3 is consistent with normal alcohol consumption. Smoking status: Never smoker Non-prescribed substance use: denies use Highest level of school completed/degree received: high school graduate Little interest or pleasure in doing things: not at all Feeling down, depressed, or hopeless: not at all Exam Narrative Exam Narrative: Vital signs and Nursing Notes reviewed: Is afebrile with a normal pulse, blood pressure is elevated 214/88, she has not hypoxic with pulse ox of 98% on room air General: Awake, alert, oriented, nontoxic but uncomfortable appearing obese female. She is lying on her left side but winces in pain when lying on her right side due to pain in her right buttock HEENT: Normocephalic atraumatic, mucous membranes are moist and pink, eyes are clear, normal conjunctiva, vision is grossly intact, posterior pharynx is normal in appearance. Neck: Supple, no meningeal signs Chest: Lungs are clear to auscultation with good air entry, there is no wheezing rhonchi or rales appreciated no accessory muscle use, patient is speaking in complete sentences-no chest wall tenderness to palpation CVS: Regular rate and rhythm S1-S2, no murmurs rubs or gallops, pulses are brisk and equal bilaterally ABD: Soft, nondistended, nontender, no rebound guarding or rigidity, bowel sounds are normal, no pulsatile masses appreciated, there is tenderness to palpation without any redness, swelling, crepitus or notable abnormality to the right buttock area. I do not appreciate any mass. There is no sign of any necrotizing fasciitis in the perineal area. Femoral pulse is brisk. Extremities: Moving all extremities, no lower extremity swelling or notable tenderness. There is a dressing over the left foot status post amputation of 2 toes Skin: Normal in appearance without rash,pallor, petechiae or purpura-no notable color change bruising or other abnormality in the right buttock area where the patient has her pain Neuro: No focal deficits Constitutional Vital Signs, click to edit/add: Last Vital Signs Temp 98.7 F 08/19/24 20:33 Pulse 99 H 08/19/24 20:33 Resp 20 08/19/24 20:33 BP 214/88 H 08/19/24 20:33 Pulse Ox 98 08/19/24 20:33 O2 Del Method Room Air 08/19/24 20:33 Course Vital Signs Vital signs: Vital Signs Temperature 98.7 F 08/19/24 20:33 Pulse Rate 99 H 08/19/24 20:33 Respiratory Rate 20 08/19/24 20:33 Blood Pressure 214/88 H 08/19/24 20:33 Pulse Oximetry 98 08/19/24 20:33 Oxygen Delivery Method Room Air 08/19/24 20:33 Temperature 98.7 F 08/19/24 20:33 Pulse Rate 99 H 08/19/24 20:33 Respiratory Rate 20 08/19/24 20:33 Blood Pressure 214/88 H 08/19/24 20:33 Pulse Oximetry 98 08/19/24 20:33 Oxygen Delivery Method Room Air 08/19/24 20:33 MDM - Back Pain/Injury MDM Narrative Medical decision making narrative: This 54-year-old female who is a diabetic and was seen here recently for right buttock pain presents for evaluation of ongoing right sided buttock pain. It was felt that she had maybe pulled a muscle in her buttock when she was seen. She was discharged home with a prescription for Flexeril. She states she has been taking the muscle relaxants without any significant improvement. She states she cannot sit down on the right side due to pain in her buttock. She shows me the area with her hand which is on the right buttock/piriformis muscle area. I do not feel any mass. There is no redness, swelling, induration or other notable skin lesions. She has normal femoral pulses. She did recently have foot surgery and on 07/03/2024 she received a prescription for 20 Ennis and again on 07/05/2024 she received a prescription for 20 Ennis. Her vital signs were stable with an elevated blood pressure. An IV was placed and she was medicated with IV fluids Zofran and morphine. Due to the recurrent nature and ongoing nature of her pain with her history of poorly controlled diabetes I did routine labs. She has a normal white count and hemoglobin. Electrolytes are normal with a normal potassium, normal BUN and creatinine, glucose of 201 and lactic acid mildly elevated at 2.4. CT scan of the abdomen pelvis with IV contrast was ordered to rule out infection in her buttock or other notable abnormality. CT scan of the abdomen pelvis shows no acute inflammatory process within the abdominal cavity with edematous appearance of the subcutaneous fat posteriorly but there is no well-defined fluid collection to suggest an abscess. The results of the CT scan were discussed with the patient. She will be discharged home with a prescription for a short course of Ennis. I explained to her in light of her recently receiving 40 Ennis last month she would not be able to get more than a few Ennis for her pain. She is feeling better now lying on her back including her right buttock. Lab Data Labs: Lab Results 08/19/24 Range/Units 21:03 WBC 8.0 (4.0-11.0) 10^3/uL RBC 4.36 (4.20-5.40) 10^6/uL Hgb 13.1 (12.0-16.0) g/dL Hct 38.5 (36.0-48.0) % MCV 88.3 (81.0-99.0) fL MCH 30.0 (26.7-34.0) pg MCHC 34.0 (29.9-35.2) g/dL RDW 12.9 (11.0-15.0) % Plt Count 273 (150-450) 10^3/uL MPV 10.9 (9.5-13.5) fL Neut % (Auto) 57.4 (43.0-75.0) % Lymph % (Auto) 34.1 (20.5-60.0) % [place] % (Auto) 5.7 (1.7-12.0) % Eos % (Auto) 2.1 (0.9-7.0) % Baso % (Auto) 0.5 (0.2-2.0) % Neut # (Auto) 4.6 (1.4-6.5) 10^3/uL Lymph # (Auto) 2.7 (1.2-3.8) 10^3/uL [place] # (Auto) 0.5 (0.3-0.8) 10^3/uL Eos # (Auto) 0.2 (0.0-0.7) 10^3/uL Baso # (Auto) 0.0 (0.0-0.1) 10^3/uL Abs Immat Gran (auto) 0.02 (0.00-0.03) 10^3/uL Imm/Tot Granulo (auto) 0.2 (0.0-0.5) % Sodium 140 (136-145) mmol/L Potassium 4.1 (3.5-5.1) mmol/L Chloride 103 (98-107) mmol/L Carbon Dioxide 28.3 (21.0-32.0) mmol/L Anion Gap 12.8 BUN 13.0 (7.0-18.0) mg/dL Creatinine 0.77 (0.55-1.02) mg/dL Est GFR ( Amer) >60 (>=60 mL/min/1.73m^2) Est GFR (Non-Af Amer) >60 (>=60 mL/min/1.73m^2) BUN/Creatinine Ratio 16.9 Glucose 201 H (74-106) mg/dL Lactate 2.4 H* (0.4-2.0) mmol/L Calcium 9.5 (8.5-10.1) mg/dL Total Bilirubin 0.2 (0.2-1.0) mg/dL AST 18 (15-37) U/L ALT 44 (14-59) U/L Alkaline Phosphatase 136 H (46-116) U/L Total Protein 7.0 (6.4-8.2) g/dL Albumin 3.0 L (3.4-5.0) g/dL Globulin 4.0 g/dL Albumin/Globulin Ratio 0.8 Discharge Plan Discharge Chief Complaint: Back Pain/Injury Clinical Impression: Musculoskeletal pain Patient Disposition: Home, Self-Care Time of Disposition Decision: 22:31 Condition: Good Prescriptions / Home Meds: No Action albuterol sulfate 90 mcg/actuation HFA aerosol inhaler 2 inh INHALATION PRN PRN (Reason: shortness of breath or wheezing) insulin lispro 100 unit/mL insulin pen 1 sliding scale dose SUBCUT TID insulin glargine U-300 conc [Toujeo SoloStar U-300 Insulin] 300 unit/mL (1.5 mL) insulin pen 95 unit SUBCUT QAM aspirin 81 mg capsule 81 mg PO DAILY atorvastatin 40 mg tablet 40 mg PO DAILY losartan 25 mg tablet 25 mg PO DAILY fluticasone propionate [Flovent HFA] 110 mcg/actuation HFA aerosol inhaler 3 puff INHALATION PRN PRN (Reason: bronchospasm) esomeprazole magnesium 40 mg capsule,delayed release(DR/EC) 40 mg PO Q24H glipizide 10 mg tablet 5 mg PO BID metformin 1,000 mg tablet 500 mg PO BID carvedilol 6.25 mg tablet 6.25 mg PO Q12H amoxicillin-pot clavulanate 875-125 mg tablet 1 tab PO Q12H Qty: 20 0RF sulfamethoxazole-trimethoprim [Bactrim DS] 800-160 mg tablet 1 tab PO BID Qty: 20 0RF ondansetron 4 mg tablet,disintegrating 4 mg PO Q6H PRN (Reason: nausea and vomiting) Qty: 20 0RF cyclobenzaprine 10 mg tablet 10 mg PO TID PRN (Reason: muscle spasm) Qty: 14 0RF famotidine 20 mg tablet 20 mg PO QPM nitroglycerin 0.4 mg tablet, sublingual 0.4 mg sublingual Q5M PRN (Reason: chest pain) fluticasone propionate 50 mcg/actuation spray,suspension 2 spray INTRANASAL DAILY hydrocodone-acetaminophen 5-325 mg tablet 1 tab PO Q6H PRN (Reason: pain) Print Language: Occitan Referrals: Shayy Ly MD [Primary Care Provider] - 1 week
[2024-08-19] MEDS: ONDANSETRON PF 4 MG/2 ML VIAL IV (21:07)
[2024-08-19] MEDS: MORPHINE SULFATE 4 MG/ML VIAL IV (21:07)
[2024-08-19 21:19] LABS: Basophils Percent Auto 0.5 % (0.2-2.0); Eosinophils Absolute Auto 0.2 10^3/uL (0.0-0.7); Eosinophils Percent Auto 2.1 % (0.9-7.0); Hematocrit 38.5 % (36.0-48.0); Hemoglobin 13.1 g/dL (12.0-16.0); Immature Granulocytes Abs Auto 0.02 10^3/uL (0.00-0.03); Immature Granulocytes Pct Auto 0.2 % (0.0-0.5); Lymphocytes Absolute Auto 2.7 10^3/uL (1.2-3.8); Lymphocytes Percent Auto 34.1 % (20.5-60.0); Mean Corpuscular Volume 88.3 fL (81.0-99.0); Mean Platelet Volume 10.9 fL (9.5-13.5); Monocytes Absolute Auto 0.5 10^3/uL (0.3-0.8); Monocytes Percent Auto 5.7 % (1.7-12.0); Neutrophils Absolute Auto 4.6 10^3/uL (1.4-6.5); Neutrophils Percent Auto 57.4 % (43.0-75.0); Platelet Count 273 10^3/uL (150-450); Red Blood Count 4.36 10^6/uL (4.20-5.40); Red Cell Distribution Width 12.9 % (11.0-15.0)
[2024-08-19 21:32] LABS: Alanine Aminotransferase 44 U/L (14-59); Albumin Globulin Ratio 0.8; Alkaline Phosphatase 136 U/L (46-116); Anion Gap 12.8; Aspartate Amino Transferase 18 U/L (15-37); BUN Creatinine Ratio 16.9; Bilirubin Total 0.2 mg/dL (0.2-1.0); Calcium 9.5 mg/dL (8.5-10.1); Carbon Dioxide 28.3 mmol/L (21.0-32.0); Chloride 103 mmol/L (98-107); Estimated GFR (African America >60 (>=60 mL/min/1.73m^2); Estimated GFR (Non-African Ame >60 (>=60 mL/min/1.73m^2); Glucose 201 mg/dL (74-106); Potassium 4.1 mmol/L (3.5-5.1); Sodium 140 mmol/L (136-145)
[2024-08-19 21:35] LABS: Lactate/Lactic Acid 2.4 mmol/L (0.4-2.0)
[2024-08-19] MEDS: 0.9 % SODIUM CHLORIDE 1,000 ML 1000 ML IV (21:55)
[2024-08-19] MEDS: HYDROCODONE/ACET 5-325 MG TABLET 2 TAB PO (22:42)
== END 2024-08-19 22:49 | disposition home or self-care (01) ==
PROVIDERS: Emergency Provider Emergency Medicine; PCP Family Medicine
DX: M54.89 Other dorsalgia (principal); E11.9 Type 2 diabetes mellitus without complications; Z79.4 Long term (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 of insulin; Z79.84 Long term (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 of oral hypoglycemic drugs; Z89.422 Acquired absence of other left toe(s); Z90.49 Acquired absence of other specified parts of digestive tract; Z95.9 Presence of cardiac and vascular implant and graft, unspecified
CPT/HCPCS: 36415; 74177; 80053; 83605; 85025; 96374; 96375; 99285; J2270; J2405; Q9967

== ENCOUNTER 2024-08-30 12:01 | Outpatient (RCR) | payer MEDICARE, MEDICAID, SELFPAY | END 2024-10-17 13:51 | disposition home or self-care (01) | LOC: PT 12:01 | PROVIDERS: PCP Family Medicine; Visit Provider Family Medicine | DX: M76.01 Gluteal tendinitis, right hip (principal); M25.551 Pain in right hip; M79.672 Pain in left foot; S98.131D Complete traumatic amputation of one right lesser toe, subsequent encounter | CPT/HCPCS: 97035; 97110; 97112; 97140; 97161 ==

== ENCOUNTER 2024-09-26 14:19 | Outpatient (OUT) | payer MEDICARE, MEDICAID, SELFPAY ==
--- OUTSIDE RECORDS SUMMARY | 2023-08-29 06:00 | XMS_ITS ---
Author Organization [facility] Address [address] [place] [address] Care Team Providers Care Veterinary Medicine Scientist Name Role Phone Shayy yL M.D. Primary Care Provider Unavail able Narinder Alvarez Unavailable [phone] Allergies Allergen (clinical drug ingredient) Drug/Non Drug Allergy documented on EMR Reaction Allergy Type Onset Date Status Latex latex (uncoded) Unknown Allergy Acti ve codeine codeine Unknown Drug Allergy Active REASON FOR VISIT Right distal ulna fx Medications Medication SIG (Take, Route, Frequency, Duration) Notes Start Date End Date Status metFORMIN Active lisinopril Active aspirin Active HumaLOG Active NexIUM Active carvedilol Active Social History Tobacco Use: Social History Observation Description Date Details (start date - stop date) Never Smoker NA - NA Smoking History Question Answer Notes Smoking Status NonSmoker AUDIT-C (Standard) Question Answer Notes Did you have a drink containing alcohol in the p ast year? No Points 0 Interpretation Negative Vital Signs Height 5'2 in 08/29/2023 Weight 205 lbs 08/29/2023 BMI 37.49 08/29/2023 Encounters Encounter Location Date Provider Diagnosis [facility] Office [address] [place] [address] [address] [place] [address] 08/29/2023 Narinder Kim Other fracture of lower end of right ulna, subsequent encounter for closed fracture with routine healing S52.691D Assessments Encounter Date Diagnosis (ICD Code) Assessment Notes Treatment Notes Treatment Clinical Notes Section Notes 08/29/2023 Other fracture of lower end of right ulna, subsequent encounter for closed fracture with routine healing (ICD-10 - S52.691D) 08/29/2023 Other I recommended continued physical therapy to work on restoring motion. She will follow up in 6 weeks to reassess her range of motion. X-rays will not be needed at that time. Plan Of Treatment Treatment Notes Assessment Notes Other I recommended contin ued physical therapy to work on restoring motion. She will follow up in 6 weeks to reassess her range of motion. X-rays will not be needed at that time. Pending Test Test Name Order Date SCC- WRIST 3 VIEW RIGHT [id number] 08/29/2023 SCC- PT/OT EVAL AND TREAT 3X/WEEK FOR 6 WEEKS 08/29/2023 Next Appt Details Follow Up: 5 WEEK S, Reason: Progress Notes * LAUREN DINHEDOB:1970 (53 yo F)Acc No.[id number]:08/29/2023 Patient: COLETTE MCKEON Provider: Diogenes Alvarez MD :1970 A ge:53 Y S ex:Female Date:08/29/2023 Address:[address] [place], [place] [id number] Pcp:Shayy Ly M.D. Subjective: * Chief Complaints: * R ight distal ulna fx * HPI: G eneral Follow Up Information: Patient resists today for follow-up of her right distal ulna fracture. She reports symptoms are improving but she continues to have stiffness in her wrist. * Medical History: * Surgical History: N o Surgical History documented. * Family History: N o Family History documented.. * Social History: S moking History S moking Status N onSmoker. E xercise regularly D o you exercise? Y es. W hat is your place of residence? W here do you live? P rivate home. A NIRMALA-C (Standard) D id you have a drink containing alcohol in the past year? N o, P oints 0 , I nterpretation N egative. * Medications: T akingaspirin HumaLOG metFORMIN lisinopril carvedilol NexIUM Medication List reviewed and reconciled with the patientTaking aspirin Taking HumaLOG Taking metFORMIN Taking lisinopril Taking carvedilol Taking NexIUM Medication List reviewed and reconciled with the patient * Allergies: l atexcodeineno[Allergies Verified] Objective: * Vitals: H t: 5'2 , Wt: 205 lbs, BMI:37.49. * Examination: G eneral examination: O n exam today she has full finger range of motion. She still lacks full pronation and supination although improved from previous visit. . X -ray Imaging Studies: X -ray show the distal ulna fracture is no longer visualized. Assessment: * Assessment: 1. O ther fracture of lower end of right ulna, subsequent encounter for closed fracture with routine healing - S52.691D (Primary) Plan: * Treatment: 2. O thers Notes: I recommended continued physical therapy to work on restoring motion. She will follow up in 6 weeks to reassess her range of motion. X-rays will not be needed at that time. * Procedure Codes: * Follow Up: 5 WEEK S Forms: * Images: * Sign off status: Completed true * Provider: Diogenes Alvarez MD Date: 0 08/29/2023 Generated for Miki blanton/Krista/Rupertitting on: 0 09/26/2024 02:23 PM EDT History and Physical Notes * HPI (History of Present Illness) Category Sub-Category Detail Notes Category Not es General Follow Up Information Patient resists toda y for follow-up of her right distal ulna fracture. She reports symptoms are improving but she continues to have stiffness in her wrist. Examination Category Sub-Category Detail Notes Category Not es General examination On exam today she has full finger range of motion. She still lacks full pronation and supination although improved from previous visit. X-ray Imaging Studies X-ray show the distal ulna fracture is no longer visualized.
--- OUTSIDE RECORDS SUMMARY | 2023-10-03 06:40 | XMS_ITS ---
Author Organization [facility] Address [address] [place] [address] Care Team Providers Care Vice President Of Academic Affairs Name Role Phone Shayy Ly M.D. Primary Care Provider Unavail Narinder Guo [facility] [phone] REASON FOR VISIT Right distal ulna fx Encounters Encounter Location Date Provider Diagnosis [facility] [facility] [address] [facility] [place] [address] [place] [address] 10/03/2023 Narinder Alvarez Plan Of Treatment No Information Progress Notes * LAUREN DINHEDOB:1970 (54 yo F)Acc No.[id number]:10/03/2023 Patient: COLETTE MCKEON Provider: Diogenes Alvarez MD :1970 A ge:53 Y S ex:Female Date:10/03/2023 Address:[facility] [address] [place], [id number] Pcp:Shayy Ly M.D. Subjective: * Chief Complaints: * 1 . Right distal ulna fx. * Medical History: Objective: * Vitals: Assessment: Plan: * Treatment: Forms: * Images: * Electronic signature of Jr Alvarez MD on 09/26/2024 at 02:24 PM EDT Sign off status: Pending * Provider: Diogenes Alvarez MD Date: 10/03/2023 Generated for Miki blanton/Krista/eTransmitting on: 09/26/2024 02:24 PM EDT
--- OUTSIDE RECORDS SUMMARY | 2024-06-18 09:46 | XMS_ITS ---
Author Organization [facility] in [place] Address [address] [place] [address] Care Team Providers Care Recording Studio Intern Name Role Phone None, Unknown or Primary Care Provider Unavailab Sadi Dugan [phone] Medications Medication SIG (Take, Route, Frequency, Duration) Notes Start Date End Date Status HYDROcodone-Acetaminophen 5-325 MG 1 tablet as needed Orally every 6 hrs prn for 7 days As needed 06/18/2024 Active Encounters Encounter Location Date Provider Diagnosis [facility] (PODIATRY) [address] [place] [address] [place] [address] 06/18/2024 Sadi Bruce Plan Of Treatment Medication Medication Name Sig Start Date Stop Date Notes HYDROcodone-Acetaminophen 5- 325 MG 1 tablet as needed Orally every 6 hrs prn for 7 days 06/18/2024 Progress Notes * Aura RAMOSeDOB:1970 (54 yo F)Acc No.[id number]:06/18/2024 Patient: Zoila MCKEON :1970 A ge:54 Y S ex:Female Address:[address], [place], [address] * Refills Start HYDROcodone-Acetaminophen Tablet, 5-325 MG, Orally, 28, 1 tablet as needed, every 6 hrs prn, 7 days, Refills=0 * true * Date: Generated for Printi ng/Faxing/eTransmitting on: 0 09/26/2024 02:23 PM EDT
--- OUTSIDE RECORDS SUMMARY | 2024-07-03 05:32 | XMS_ITS ---
Author Organization The [facility] in [place] Address [address] [place] [address] Care Team Providers Care White Shoe Examiner Name Role Phone None, Unknown or Primary Care Provider Unavailab Sailaja Hoffman [phone] Medications Medication SIG (Take, Route, Frequency, Duration) Notes Start Date End Date Status HYDROcodone-Acetaminophen 5-325 MG 1-2 tablet as needed Orally every 6 hrs for 5 days 07/03/2024 Active Encounters Encounter Location Date Provider Diagnosis [facility] (PODIATRY) [address] [place] [address] [place] [address] 07/03/2024 Sailaja Messina Plan Of Treatment Medication Medication Name Sig Start Date Stop Date Notes HYDROcodone-Acetaminophen 5- 325 MG 1-2 tablet as needed Orally every 6 hrs for 5 days 07/03/2024 Progress Notes * uAra RAMOSeDOB:1970 (54 yo F)Acc No.[id number]:07/03/2024 Patient: Zoila MCKEON :1970 A ge:54 Y S ex:Female Address:[facility] [address], [place], [address] * Refills Start HYDROcodone-Acetaminophen Tablet, 5-325 MG, Orally, 20, 1-2 tablet as needed, every 6 hrs, 5 days, Refills=0 * true * Date: Generated for Printi ng/Faxing/eTransmitting on: 0 09/26/2024 02:23 PM EDT
--- OUTSIDE RECORDS SUMMARY | 2024-07-05 04:59 | XMS_ITS ---
Author Organization The [facility] in [place] Address [address] [place] [address] Care Team Providers Care Licensed Practical Nurse Name Role Phone None, Unknown or Primary Care Provider Unavailab Sadi Dugan [phone] REASON FOR VISIT Rx post op Medications [...] Encounters Encounter Location Date Provider Diagnosis [facility] (PODIATRY) [address] [place] [address] [place] [address] 07/05/2024 Sadi Bruce Plan Of Treatment Medication [...] Notes * FABRIZIOAura BarriosSebleOB:1970 (54 yo F)Acc No.[id number]:07/05/2024 Patient: Zoila MCKEON :1970 A ge:54 Y S ex:Female Address:[address], [place], [address] * Refills Start HYDROcodone-Acetaminophen Tablet, 5-325 MG, Orally, 20 Tablet, 1 tablet as needed, every 6 hrs, 5 days, Refills=0 Start Sulfamethoxazole-Trimethoprim Tablet, 800-160 MG, Orally, 28, 1 tablet, twice daily, 14 days, Refills=0 Start Amoxicillin-Pot Clavulanate Tablet, 875-125 MG, Orally, 28, 1 tablet, twice daily, 14 days, Refills=0 * true * Date: Generated for Miki blanton/Krista/Jh on: 0 09/26/2024 02:24 PM EDT
--- OUTSIDE RECORDS SUMMARY | 2024-09-26 14:23 | XMS_ITS | Clinical Summary ---
Author Organization [employer] [facility] tem Address [id number] [address] [place] [address] Care Team Providers Care Gel Coat Sprayer Name Role Phone Unavailable Primary Care Provider Unavailabl e Allergies Active Allergy Reactions Criticality Noted Date Comments Codeine 06/14/2024 Insulin Lispro Rash Low 06/14/2024 Latex 06/14/2024 Tomato 06/14/2024 Tomato sauce Medications atorvastatin (LIPITOR) 40 mg tablet Take 1 tablet (40 mg total) by mouth in the morning. Active carvediloL (COREG) 6.25 mg tablet Take 1 tablet (6.25 mg total) by mouth in the morning and 1 tablet (6.25 mg total) in the evening. Take with meals. Active esomeprazole (NexIUM) 40 mg capsule Take 1 capsule (40 mg total) by mouth every morning before breakfast. Active metFORMIN (GLUCOPHAGE) 1000 mg tablet Apply 0.5 tablets (500 mg total) to the mouth or throat in the morning and 0.5 tablets (500 mg total) in the evening. Apply with meals. 250mg in am, 250mg in pm. Active sulfamethoxazole -trimethoprim (BACTRIM DS) 800-160 mg per tablet Take 1 tablet by mouth in the morning and 1 tablet before bedtime. Active losartan (COZAAR) 25 mg tablet Take 1 tablet (25 mg total) by mouth in the morning and 1 tablet (25 mg total) before bedtime. Active glipiZIDE (GLUCOTROL) 10 mg tablet Take 1 tablet (10 mg total) by mouth in the morning and 1 tablet (10 mg total) in the evening. Take before meals. Active FLOVENT HFA 110 mcg/actuation inhaler Inhale 2 puffs in the morning and 2 puffs before bedtime. Active fluticasone propionate (FLONASE) 50 mcg/actuation nasal spray Administer 2 sprays into each nostril in the morning. 4 Active TOUJEO MAX U-300 SOLOSTAR 300 unit/mL (3 mL) insulin pen Inject 95 Unit under the skin in the morning. 5 Active simvastatin (ZOCOR) 20 mg tablet Take 1 tablet (20 mg total) by mouth nightly. Active amoxicillin-pot clavulanate (AUGMENTIN) 875-125 mg per tablet Take 1 tablet by mouth every 12 (twelve) hours. 5 Active Active Problems Problem Noted Date Diagnosed Date Gangrene of toe of left foot 06/14/2024 Assessment & Plan (06/14/2024 11:11 AM EST): Osteomyelitis and gangrenous changes of the left second and third and may be the fourth toe.She has normal PVR with toe pressure and normal HIEU and toe pressure index.I discussed with her that there is no VASc intervention needed at this time. She needs his aggressive blood sugar control IV antibiotics likely toe amputation by podiatry and risk factors modification. Social History Tobacco Use Types Packs/Day Years Used Date Smoking Tobacco: Never Smokeless Tobacco: Never Tobacco Cessation:Counseling Given: Not Answered Alcohol Use Standard Drinks/Week Comments Never 0 (1 standard drink = 0.6 oz pur e alcohol) Hunger Screening Answer Date Recorded Within the past 12 months we worried whether our food would run out before we got money to buy more. Never True 06/14/2024 Within the past 12 months th e food we bought just didn't last and we didn't have money to get more. Never True 06/14/2024 Comments Unknown Sex and Gender Information Value Date Recorded Sex Assigned at Not on file Legal Sex Female 2:03 PM EST Gender Identity Not on file Sexual Orientation Not on file Last Filed Vital Signs Vital Sign Reading Time Taken Comments Blood Pressure 136/82 06/14/2024 10:21 AM EST Pulse 88 06/14/2024 10:21 AM EST Temperature 36.3 C (97.3 F) 06/14/2024 10:21 AM EST Respiratory Rate - - Oxygen Saturation 97% 06/14/2024 10:21 AM EST Inhaled Oxygen Concentration - - Weight 95.7 kg (211 lb) 06/14/2024 10:21 AM EST Height 157.5 cm (5' 2 ) 06/14/2024 10:21 AM EST Body Mass Index 38.59 06/14/2024 10:21 AM EST Plan of Treatment Health Maintenance Due Date Last Done Comments Depression Screening 1984 Tobacco Screening 1984 Adult BMI Follow Up Plan 01/15/1990 DTaP,Tdap and Td Vaccines (1 - Tdap) 01/15/1991 Pap Smear 01/15/1993 Zoster (Shingles) Vaccine (1 of 2) 01/15/2022 Influenza Vaccine 12/31/2024 Adult BMI Screening 06/14/2025 06/14/2024 Medical Devices Not on file Insurance [employer] [place]ICAID [place]
--- OUTSIDE RECORDS SUMMARY | 2024-09-26 14:24 | XMS_ITS | Referral Summary ---
Author Organization [facility] Address [address] [place] [address] Care Team Providers Care Vacuum Form Operator Name Role Phone Shayy Ly MD Primary Care Provider [phone] Allergies Active Allergy Reactions Criticality Noted Date Comments Codeine 03/24/2022 Insulin Lispro Rash Low 06/14/2024 Latex Other 04/19/2014 Tomato Other 06/14/2024 Tomato sauce Medications Medication Sig Dispensed Refills Start Date End Date Status aspirin 81 mg EC tablet Take 1 tablet every day by oral route as directed for 90 days. 03/20/2020 Active albuterol 90 mcg/actuation inhaler INHALE TWO PUFFS EVERY FOUR HOURS, NEEDED Active esomeprazole (NexIUM) [address] capsule Take 1 capsule by mouth in the morning. Active glipiZIDE (Glucotrol) 10 mg tablet TAKE 2 (TWO) TABLET BY MOUTH TWO TIMES DAILY Active metFORMIN (Glucophage) 1,000 mg tablet TAKE 1 (ONE) TABLET BY MOUTH TWO TIMES DAILY Active montelukast (Singulair) 10 mg tablet Take 1 tablet every day by oral route for 30 days. Active insulin glargine (Toujeo SoloStar U-300 Insulin) 300 unit/mL (1.5 mL) injection INJECT 75 UNITS UNDER SKIN TWICE A DAY Active budesonide-formoteroL (Symbicort) 160-4.5 mcg/actuation inhaler Act dejan metoprolol tartrate (Lopressor) 25 mg tabletIndications:Yordan nary arteriosclerosis in [place] artery,Essential hypertension Take 1 tablet (25 mg) by mouth in the morning and at bedtime. 180 tablet 3 05/19/2022 Active Additional Information Patient not taking.Reported on 06/19/2024 atorvastatin (Lipitor) 40 mg tabletIndications:Athe rosclerosis of [place] coronary artery of [place] heart without angina pectoris,Mixed hyperlipidemia Take 1 tablet (40 mg) by mouth in the morning. 90 tablet 3 06/01/2022 Active magnesium oxide (Mag-Ox) 400 mg tablet 400 mg in the morning. Active hydroCHLOROthiazide (Microzide) 12.5 mg capsuleIndications:Ess ential hypertension TAKE 1 CAPSULE (12.5 MG) BY MOUTH IN THE MORNING. 90 capsule 3 02/14/2023 Active Additional Information Patient not taking.Reported on 06/19/2024 carvedilol (Coreg) 6.25 mg tabletIndications:Esse ntial hypertension Take 1 tablet (6.25 mg) by mouth with breakfast and with evening meal. 180 tablet 3 07/12/2023 Active losartan (Cozaar) 25 mg tabletIndications:Esse ntial hypertension Take 1 tablet (25 mg) by mouth in the morning. 90 tablet 3 07/13/2023 Active nitroglycerin (Nitrostat) 0.4 mg SL tabletIndications:Ches t pain, unspecified type PLACE 1 TABLET UNDER YOUR TONGUE EVERY 5 MINUTES NEEDED FOR CHEST PAIN FOR 3 DOSES ONLY. IF NO RELIEF, CALL 911 90 tablet 1 11/29/2023 Active famotidine (Pepcid) 20 mg tablet Take 20 mg by mouth at bedtime. 03/09/2024 Active ibuprofen 600 mg tablet Take 1 tablet by mouth every 8 (eight) hours if needed for pain. 09/04/2023 Active HumaLOG KwikPen Insulin 200 unit/mL (3 mL) insulin pen injection pen PLEASE SEE ATTACHED FOR DETAILED DIRECTIONS 05/14/2024 Active Active Problems Problem Noted Date Diagnosed Date Other fracture of lower end of right ulna, subsequent encounter for closed fracture with routine healing 06/19/2024 Gangrene of toe of left foot 06/14/2024 Mixed hyperlipidemia 06/01/2022 Essential hypertension 05/19/2022 Overview (05/19/2022): Images from the original note were not included. Trig 77 Assessment & Plan (05/19/2022 10:44 AM EST): Hypertension is uncontrolled, Will add lisinopril 5 mg po daily, and continue metoprolol Goal b/p 130/80 or less, monitor for dry persistent cough- call office for any concerns, repeat BMP in 1 week RTC 1 month to review B/P log Sinusitis 03/24/2022 Coronary arteriosclerosis in [place] artery 06/30 Assessment & Plan (05/19/2022 10:43 AM EST): Coronary artery disease is stable, no concerning symptoms continue risk factor modifications- heart healthy diet, regular exercise as tolerated and continue all medications. 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 06/30/2012 Asthma 06/30/2012 Coronary atherosclerosis 06/30/2012 Social History Tobacco Use Types Packs/Day Years Used Date Smoking Tobacco: Never Smokeless Tobacco: Never Tobacco Cessation:Counseling Given: Not Answered Alcohol Use Standard Drinks/Week Comments Not Currently 0 (1 standard drink = 0.6 oz pur e alcohol) [place] Safety & Environment Answer Date Rec orded Fear of Current or Ex-Partner Not on file Emotionally Abused Not on file 06/23/2023 Physically Abused Not on file 06/23/2023 Sexually Abused Not on file 06/23/2023 Physically or Sexually Abused Not on file Sex and Gender Information Value Date Recorded Sex Assigned at Not on file Gender Identity Not on file Sexual Orientation Not on file Last Filed Vital Signs Vital Sign Reading Time Taken Comments Blood Pressure 160/84 06/19/2024 3:25 PM EST Pulse 94 06/19/2024 3:25 PM EST Temperature - - Respiratory Rate - - Oxygen Saturation 96% 06/19/2024 3:25 PM EST Inhaled Oxygen Concentration - - Weight 95.7 kg (211 lb) 06/19/2024 3:25 PM EST Height 157.5 cm (5' 2 ) 06/19/2024 3:25 PM EST Body Mass Index 38.59 06/19/2024 3:25 PM EST Plan of Treatment Not on file Care Teams Vacuum Form Operator Relationship Specialty Start Date End Date Shayy yL MD [id number] [facility] PCP - General 05/19/22
--- OUTSIDE RECORDS SUMMARY | 2024-09-26 14:24 | XMS_ITS | Patient Health Record ---
Author Organization [facility] in [place] Address [address] [place] [address] Care Team Providers [employer] Driver Name Role Phone None, Unknown or Primary Care Provider Unavailab Jordyn Dugan Unavailable [phone] Fabián Messina Unavailable [phone] Allergies Allergen (clinical drug ingredient) Drug/Non Drug Allergy documented on EMR Reaction Allergy Type Onset Date Status codeine Codeine Unknown Drug Allergy Active Latex Latex Unknown Allergy Active Results Component Value Reference Range Notes MR ankle RT wo con (Not yet reviewed by provider) Interpretation: Performing Lab: Notes/Report: Source Facility: [place] [address] Magnetic Resonance Report Signed Patient: ZOILA RAMOS MR#: [id number] : 1970 Acct:[id number] Age/Sex: 54 / F ADM Date: 03/21/24 Loc: MRI Attending Dr: Jordyn Bruce D.P.M. Ordering Physician: Jordyn Bruce D.P.M. Date of Service: 03/21/24 Procedure(s): MR ankle RT wo con Accession Number(s): [id number] cc: Shayy Dela Cruz M.D.; Jordyn Bruce D.P.M. [place] [id number] Patient Name: ZOILA RAMOS MRN: [id number] date: 1970 Sex: F Assigned Patient Location: MRI Current Patient Location: Accession/Order Number: [id number] Exam Date: 03/21/2024 09:55 Report Date: 03/24/2024 06:53 At the request of: JORDYN BRUCE Procedure: MR ankle RT wo con HISTORY: Pain in the posterior aspect of the right ankle in the region of the Achilles tendon since feeling a pop. Evaluate for Achilles tendon tear. MR ankle RT wo con: 03/21/2024 9:55 AM EST COMPARISON: Radiographs right ankle 02/19/2024. TECHNIQUE: Multiplanar, multisequence MRI images of the ankle were obtained without contrast. FINDINGS: Several images are slightly degraded by motion artifact. LIGAMENTS: The anterior talofibular ligament appears within normal limits. The calcaneofibular ligament, posterior talofibular ligament, and distal tibiofibular ligaments appear within normal limits. The deltoid ligament complex appears within normal limits. TENDONS: There is a high-grade longitudinal partial-thickness intrasubstance tear of the majority of the length of the Achilles tendon extending from the proximal Achilles tendon to the distal Achilles tendon approximately 1.6 cm from its insertion on the calcaneus. This tear spans 4.7 cm in craniocaudal dimension and involves approximately 80% of the AP thickness of the tendon. The other tendons of the ankle appear within normal limits. SINUS TARSI AND TARSAL TUNNEL: No space-occupying mass is seen in the tarsal tunnel or the sinus tarsi. BONES AND JOINTS: The bone marrow signal intensity is age appropriate. There are mild degenerative changes of the tibiotalar joint and there is mild subchondral cystic change within the posterocentral aspect of the tibial plafond. There are mild degenerative changes of the talonavicular joint. There are also mild degenerative changes along the anterior aspect of the distal tibiofibular syndesmosis with osteophyte formation in this region. PLANTAR FASCIA: There is a plantar calcaneal enthesophyte and there is evidence of the sequela of remote plantar fasciitis involving the proximal portion of the central band of the plantar fascia. SOFT TISSUES: There is soft tissue swelling along the posterior aspect of the ankle and along the medial and lateral aspect of the ankle. MR/MR ankle RT wo con IMPRESSION: 1. There is a high-grade longitudinal partial-thickness intrasubstance tear of the majority of the length of the Achilles tendon as described above. The other tendons of the ankle appear within normal limits. 2. There are degenerative changes involving multiple joints as described above. 3. No acute ligamentous injury. Electronically authenticated by: SHAWN MARQUES Date: 03/24/2024 06:53 Dictated By: Shawn Marques M.D. Signed By: 03/24/2456 DD/ 2 TD/TT: Online Producer: [place] [address] Magnetic Resonance Report Signed Patient: JULIA RAMOS MR#: [id number] : 1970 Acct:[id number] Age/Sex: 54 / F ADM Date: 03/21/24 Loc: MRI Attending Dr: Jordyn Bruce D.P.M. Ordering Physician: Jordyn Bruce D.P.M. Date of Service: 03/21/24 Procedure(s): MR ibarra le RT wo con Accession Number(s): [id number] cc: Shayy Dela Cruz; Jordyn Bruce D.P.M. [place] [address] Patient Name: ZOILA RAMOS MRN: [id number] date: 1970 Sex: F Assigned Patient Loc ation: MRI Current Patient Location: Accession/Order Numb er: [id number] Exam Date: 09:55 Report Date: 03/24/2024 06:53 At the request of: JORDYN BRUCE Procedure: MR ankle RT wo con HISTORY: Pain in the posterior aspect of the right ankle in the region of the Achilles tendon sinc e feeling a pop. Evaluate for Achilles tendon tear. MR ankle RT wo con: 03/21/2024 9:55 AM EST COMPARISON: Radiogra phs right ankle 02/19/2024. TECHNIQUE: Multiplan ar, multisequence MRI images of the ankle were obtained without contrast. FINDINGS: Several im ages are slightly degraded by motion artifact. LIGAMENTS: The anter ior talofibular ligament appears within normal limits. The calcaneofibular liga ment, posterior talofibular ligament, and distal tibiofibular ligamen ts appear within normal limits. The deltoid ligament complex appears with in normal limits. TENDONS: There is a high-grade longitudinal partial-thickness intrasubstance tear of the majority of the length of the Achilles tendon extending from the proximal Achilles te ndon to the distal Achilles tendon approximately 1.6 cm from its insertion o n the calcaneus. This tear spans 4.7 cm in craniocaudal dimension and involv es approximately 80% of the AP thickness of the tendon. The other tendons of the ankle appear within normal limits. SINUS TARSI AND TARS AL TUNNEL: No space-occupying mass is seen in the tarsal tunnel or the sinus tarsi. BONES AND JOINTS: Th e bone marrow signal intensity is age appropriate. There are mild degenerativ e changes of the tibiotalar joint and there is mild subchondral cystic c hange within the posterocentral aspect of the tibial plafond. There are m ild degenerative changes of the talonavicular joint. There are also mild degene rative changes along the anterior aspect of the distal tibiofibular syndesm osis with osteophyte formation in this region. PLANTAR FASCIA: Ther e is a plantar calcaneal enthesophyte and there is evidence of the sequela of re mote plantar fasciitis involving the proximal portion of the central band of the plantar fascia. SOFT TISSUES: There is soft tissue swelling along the posterior aspect of the ankle and along the medial and lateral aspect of the ankle. M R/MR ankle RT wo con IMPRESSION: 1. There is a high-g rade longitudinal partial-thickness intrasubstance tear of the majority of the length of the Achilles tendon as described above. The other tendons of the ankle appear within normal limits. 2. There are degener ative changes involving multiple joints as described above. 3. No acute ligament ous injury. Electronically authenticated by: SHAWN MARQUES Date: 03/24/2024 06:53 Dictated By: Shawn Marques M.D. Signed By: 03/24/2456 DD/ 2 TD/TT: Online Producer: foot LT wo con (Not yet r eviewed by provider) Interpretation: Performing Lab: Notes/Report: Source Facility: [facility]-[address] [place] [address] [place] [address] Magnetic Resonance Report Signed Patient: ZOILA RAMOS MR#: [id number] : 1970 Acct:[id number] Age/Sex: 54 / F ADM Date: 05/15/24 Loc: MRI Attending Dr: Jordyn Bruce D.P.M. Ordering Physician: Jordyn Bruce D.P.M. Date of Service: 05/15/24 Procedure(s): MR foot LT wo con Accession Number(s): [id number] cc: Shayy Dela Cruz M.D.; Jordyn Bruce D.P.M. [place] [address] Patient Name: ZOILA RAMOS MRN: [id number] date: 1970 Sex: F Assigned Patient Location: MRI Current Patient Location: MRI Accession/Order Number: [id number] Exam Date: 05/15/2024 14:45 Report Date: 05/15/2024 16:47 At the request of: JORDYN BRUCE Procedure: MR foot LT wo con EXAM: MR foot LT wo con HISTORY: Osteomyelitis Second Toe COMPARISON: 05/06/2024 TECHNIQUE: MRI images obtained with multiple sequences. MRI of the left foot without contrast. Sequences obtained by standard department protocol. FINDINGS: Achilles tendon is intact. Plantar fascia is intact. Decreased T1 signal at the second distal phalangeal tuft, consistent with osteomyelitis. There are associated erosions seen on the radiograph from 05/06/2024. No other areas suspicious for osteomyelitis by this modality and technique. Extensor and flexor tendons are intact. No acute fractures. No ankle joint effusion. No abnormal signal of the plantar musculature. MR/MR foot LT wo con IMPRESSION: 1. Decreased T1 signal at the second distal phalangeal tuft, consistent with osteomyelitis. There are associated erosions seen on the radiograph from 05/06/2024. 2. No other areas suspicious for osteomyelitis by this modality and technique. Electronically authenticated by: JAKE PIERSON Date: 05/15/2024 16:47 Dictated By: Jake Pierson M.D. Signed By: 05/15/24 1757 DD/ 7735 TD/TT: Online Producer: [place] [address] Magnetic Resonance Report Signed Patient: JULIA RAMOS MR#: [id number] : 1970 Acct:[id number] Age/Sex: 54 / F ADM Date: 05/15/24 Loc: MRI Attending Dr: Jordyn Bruce D.P.M. Ordering Physician: Jordyn Bruce D.P.M. Date of Service: 05/15/24 Procedure(s): MR yanet t LT wo con Accession Number(s): [id number] cc: Shayy Dela Cruz; Jordyn Bruce D.P.M. [place] [address] Patient Name: ZOILA RAMOS MRN: [id number] date: 1970 Sex: F Assigned Patient Loc ation: MRI Current Patient Loca tion: MRI Accession/Order Numb er: [id number] Exam Date: 05/15/2024 14:45 Report Date: 05/15/2024 16:47 At the request of: JORDYN BRUCE Procedure: MR foot L T wo con EXAM: MR foot LT wo con HISTORY: Osteomyelit is Second Toe COMPARISON: 05/06/2024 TECHNIQUE: MRI image s obtained with multiple sequences. MRI of the left foot without contrast. Sequences obtained by standard department protocol. FINDINGS: Achilles tendon is i ntact. Plantar fascia is intact. Decreased T1 signal at the second distal phalangeal tuft, consistent with osteomyelitis. There are associated erosions seen on the radiograph from 05/06/2024. No other areas suspi cious for osteomyelitis by this modality and technique. Extensor and flexor tendons are intact. No acute fractures. No ankle joint effusion. No abnormal signal o f the plantar musculature. M R/MR foot LT wo con IMPRESSION: 1. Decreased T1 sign al at the second distal phalangeal tuft, consistent with osteomyelitis. There are associated erosions seen on the radiograph from 05/06/2024. 2. No other areas suspicious for osteomyelitis by this modality and technique. Electronically authenticated by: JAKE PIERSON Date: 05/15/2024 16:47 Dictated By: Dashawn Pierson M.D. Signed By: 05/15/24 3496 DD/ 1647 TD/TT: Online Producer: CBC AUTO DIFF (Not yet revie wed by provider) Interpretation: Performing Lab: Notes/Report: [facility] , White Blood Count 6.3 4.0-11.0 10 3/uL Red Blood Count 4.65 4.20-5.40 10 6/uL Hemoglobin 13.7 12.0-16.0 g/dL Hematocrit 41.6 36.0-48.0 % Mean Corpuscular Volume 89.5 81.0-99.0 fL Mean Corpuscular Hemoglobin 29.5 26.7-34.0 pg Mean Corpuscular HGB Conc 32.9 29.9-35.2 g/dL Red Cell Distribution Width 13.2 11.0-15.0 % Platelet Count 298 150-450 10 3/uL Mean Platelet Volume 10.1 9.5-13.5 fL Neutrophils Percent Auto 47.6 43.0-75.0 % Lymphocytes Percent Auto 41.2 20.5-60.0 % Monocytes Percent Auto 7.6 1.7-12.0 % Eosinophils Percent Auto 2.7 0.9-7.0 % Basophils Percent Auto 0.6 0.2-2.0 % Immature Granulocytes Pct Auto 0.3 0.0-0.5 % Neutrophils Absolute Auto 3.0 1.4-6.5 10 3/uL Lymphocytes Absolute Auto 2.6 1.2-3.8 10 3/uL Monocytes Absolute Auto 0.5 0.3-0.8 10 3/uL Eosinophils Absolute Auto 0.2 0.0-0.7 10 3/uL Basophils Absolute Auto 0.0 0.0-0.1 10 3/uL Immature Granulocytes Abs Auto 0.02 0.00-0.03 10 3/uL Performing Lab: see note ML - [facility] LB XR foot LT min 3V (Not yet r eviewed by provider) Interpretation: Performing Lab: Notes/Report: Source Facility: [facility] [place] [address] [place] [address] XRay Report Signed Patient: ZOILA RAMOS MR#: [id number] : 1970 Acct:[id number] Age/Sex: 54 / F ADM Date: 06/13/24 Loc: Attending Dr: Fabián Messina Ordering Physician: Fabián Messina Date of Service: 06/13/24 Procedure(s): XR foot LT min 3V Accession Number(s): [id number] cc: Shayy Dela Cruz M.D.; Fabián Messina [place] [address] Patient Name: ZOILA RAMOS MRN: [facility]:[id number] date: 1970 Sex: F Assigned Patient Location: Current Patient Location: Accession/Order Number: [id number] Exam Date: 06/13/2024 13:08 Report Date: 06/14/2024 10:01 At the request of: FABIÁN MESSINA Procedure: XR foot LT min 3V PROCEDURE: XR foot LT min 3V HISTORY: LEFT FOOT PAIN ; wounds involving the second, third, and fourth toes COMPARISON: XR foot left 06/07/2024, 05/06/2024, 04/27/2024 FINDINGS: BONES:Persistent osseous destruction of tip of second distal phalanx. Subtle lucencies involving the distal medial margins of the distal phalanx of the third and fourth toes. SOFT TISSUES:Soft tissue swelling of tip of second toe. EFFUSION:None visible. OTHER: Negative. XR/XR foot LT min 3V IMPRESSION: 1. Grossly stable appearance of the tips of the distal phalanx of the second, third, and fourth digits suggestive of osteomyelitis. 2. Prominent soft tissue swelling of tip of second toe; possibly mild soft tissue swelling of fourth toe. Electronically authenticated by: NARINDER LAN Date: 06/14/2024 10:01 Dictated By: Narinder Lan M.D. Signed By: 06/14/24 1004 DD/ 1001 TD/TT: Online Producer: [place] [address] XRay Report Signed Patient: JULIA RAMOS MR#: [id number] : 1970 Acct:[id number] Age/Sex: 54 / F ADM Date: 06/13/24 Loc: SALUD Attending Dr: Harriet Messina Ordering Physician: Fabián Messina Date of Service: 06/13/24 Procedure(s): XR yanet t LT min 3V Accession Number(s): [id number] cc: Shayy Dela Cruz; Fabián Messina The [address] [address] Patient Name: ZOILA RAMOS MRN: [id number] date: 1970 Sex: F Assigned Patient Loc ation: SALUD Current Patient Location: Accession/Order Numb er: [id number] Exam Date: 06/13/2024 13:08 Report Date: 06/14/2024 10:01 At the request of: FABIÁN MESSINA Procedure: XR foot L T min 3V PROCEDURE: XR foot L T min 3V HISTORY: LEFT FOOT P AIN ; wounds involving the second, third, and fourth toes COMPARISON: XR foot left 06/07/2024, 05/06/2024, 04/27/2024 FINDINGS: BONES:Persistent oss eous destruction of tip of second distal phalanx. Subtle lucencies involving the distal medial margins of the distal phalanx of the third and fourth toes. SOFT TISSUES:Soft ti ssue swelling of tip of second toe. EFFUSION:None visible. OTHER: Negative. X R/XR foot LT min 3V IMPRESSION: 1. Grossly stable appearance of the tips of the distal phalanx of the second, third, and fourth di gits suggestive of osteomyelitis. 2. Prominent soft ti ssue swelling of tip of second toe; possibly mild soft tissue swelling of f ourth toe. Electronically authenticated by: NARINDER LAN Date: 06/14/2024 10:01 Dictated By: Narinder Lan M.D. Signed By: 06/14/24 1004 DD/ 1001 TD/TT: Online Producer: PROF BRITNEY Olivia ([facility]) (Not yet reviewed by provider) Interpretation: Performing Lab: Notes/Report: [facility] , Sodium 137 136-145 mmol/L Potassium 4.2 3.5-5.1 mmol/L Chloride 102 98-107 mmol/L Carbon Dioxide 27.7 21.0-32.0 mmol/L Anion Gap 11.5 Glucose 139 74-106 mg/dL Blood Urea Nitrogen 14.0 7.0-18.0 mg/dL Creatinine 0.89 0.55-1.02 mg/dL Estimated GFR ( Ligia >60 >=60 mL/min/1.73m 2 Estimated GFR (Non- Rebecca >60 >=60 mL/min/1.73m 2 BUN Creatinine Ratio 15.7 Calcium 9.0 8.5-10.1 mg/dL Performing Lab: see note ML - [facility] LB ECG 12 lead (Not yet reviewe d by provider) Interpretation: Performing Lab: Notes/Report: Source Facility: [place] [address] [place] [address] Electrocardiograph Report Signed Patient: ZOILA RAMOS MR#: [id number] : 1970 Acct:[id number] Age/Sex: 54 / F ADM Date: 06/19/24 Loc: PST Attending Dr: Jordyn Bruce D.P.M. Ordering Physician: Jordyn Bruce D.P.M. Date of Service: 06/19/24 Procedure(s): ECG 12 lead Accession Number(s): [id number] cc: [facility] Test Date: 2024-06-19 Pat Name: ZOILA RAMOS Department: Room: - Gender: Female Insole Taper: : 1970 Requested By: SHAYY DELA CRUZ Order Number: [id number] Reading MD: HUSAM ABEL Measurements Intervals Justice Rate: 84 P: 15 MN: 167 QRS: -58 QRSD: 117 T: 103 QT: 395 QTc: 469 Interpretive Statements SINUS RHYTHM MARKED LEFT AXIS DEVIATION [QRS AXIS < -30] LEFT VENTRICULAR HYPERTROPHY AND ST-T CHANGE [VOLTAGE CRITERIA PLUS ST/T ABNORMALITY] POSSIBLE ANTEROSEPTAL MYOCARDIAL INFARCTION [30 ms Q WAVE IN V1-V4], OF INDETERMINATE AGE Electronically Signed On 06-20-2024 7:09:24 EST by HUSAM ABEL Dictated By: Husam Abel D.O. Signed By: 06/20/24 0709 DD/ 1348 TD/TT: Online Producer: [place] [address] Electrocardiograph Report Signed Patient: JULIA RAMOS MR#: [id number] : 1970 Acct:[id number] Age/Sex: 54 / F ADM Date: 06/19/24 Loc: PST Attending Dr: Jordyn Bruce D.P.M. Ordering Physician: Jordyn Bruce D.P.M. Date of Service: 06/19/24 Procedure(s): ECG 12 lead Accession Number(s): [id number] cc: [facility] Test Date: 2024-06-19 Pat Name: ZOILA BARAJAS Department: 00 Room: - Gender: Female Insole Taper: : 1970 Requ ested By: SHAYY DELA CRUZ Order Number: [id number] Reading MD: HUSAM ABEL Measurements Intervals Justice Rate: 84 P: 15 MN: 167 QRS: -58 QRSD: 117 T: 103 QT: 395 QTc: 469 Interpretive Statements SINUS RHYTHM MARKED LEFT AXIS DEV IATION [QRS AXIS < -30] LEFT VENTRICULAR HYPERTROPHY AND ST-T CHANGE [VOLTAGE CRITERIA PLUS ST/T ABNORMALITY] POSSIBLE ANTEROSEPTA L MYOCARDIAL INFARCTION [30 ms Q WAVE IN V1-V4], OF INDETERMINATE AGE Electronically Jacqueline d On 06-20-2024 7:09:24 EST by HUSAM ABEL Dictated By: Jorge Alberto Abel D.OCoretta Signed By: 06/20/24 0709 DD/ 1348 TD/TT: Online Producer: XR chest 2V (Not yet reviewe d by provider) Interpretation: Performing Lab: Notes/Report: Source Facility: [place] [address] [place] [address] XRay Report Signed Patient: ZOILA RAMOS MR#: [id number] : 1970 Acct:[id number] Age/Sex: 54 / F ADM Date: 06/19/24 Loc: PST Attending Dr: Jordyn Bruce D.P.M. Ordering Physician: Jordyn Bruce D.P.M. Date of Service: 06/19/24 Procedure(s): XR chest 2V Accession Number(s): [id number] cc: Shayy Dela Cruz M.D.; Jordyn Bruce D.P.M. [place] [id number] Patient Name: ZOILA RAMOS MRN: [id number] date: 1970 Sex: F Assigned Patient Location: [facility] Current Patient Location: [facility] Accession/Order Number: [id number] Exam Date: 06/19/2024 14:34 Report Date: 06/19/2024 14:37 At the request of: JORDYN BRUCE DPNegro Procedure: XR chest 2V PA AND LATERAL CHEST: CLINICAL HISTORY: Preop exam. Diabetic toe ulcers. COMPARISON: None There is no focal parenchymal consolidation, effusion or pneumothorax. The cardiac, hilar and mediastinal silhouettes are within normal limits. There is no vascular congestion. The visualized bony structures are osteopenic. There is endplate spurring the spine. XR/XR chest 2V IMPRESSION: NO ACUTE CARDIOPULMONARY ABNORMALITY. Impression dictated by: Aliyah Nicole M.D.06/19/2024 2:37 PM Dictation Location: [place] [address] Electronically authenticated by: [id number] Y Date: 06/19/2024 14:37 Dictated By: Aliyah Nicole M.D. Signed By: 06/19/24 1440 DD/ 1437 TD/TT: Online Producer: [place] [address] XRay Report Signed Patient: JULIA RAMOS MR#: [id number] : 1970 Acct:[id number] Age/Sex: 54 / F ADM Date: 06/19/24 Loc: [facility] Attending Dr: Jordyn Bruce D.P.M. Ordering Physician: Jordyn Bruce D.P.M. Date of Service: 06/19/24 Procedure(s): XR chest 2V Accession Number(s): [id number] cc: Shayy Dela Cruz; Jordyn Bruce D.P.M. [place] [id number] Patient Name: ZOILA RAMOS MRN: [id number] date: 1970 Sex: F Assigned Patient Loc ation: [facility]AB[facility] Current Patient Loca tion: [facility]AB[facility] Accession/Order Numb er: [id number] Exam Date: 06/19/2024 14:34 Report Date: 06/19/2024 14:37 At the request of: JORDYN BRUCE DPNegro Procedure: XR chest 2V PA AND LATERAL CHEST: CLINICAL HISTORY: Pr eop exam. Diabetic toe ulcers. COMPARISON: None There is no focal parenchymal consolidation, effusion or pneumothorax. The cardiac, hilar and mediastinal silhouettes are within normal limits. There is no vascular conge stion. The visualized bony structures are osteopenic. There is endplate sp urring the spine. X R/XR chest 2V IMPRESSION: NO ACUTE CARDIOPULMO NARY ABNORMALITY. Impression dictated by: Aliyah Nicole M.D.06/19/2024 2:37 PM Dictation Location: [place] [address] Electronically authenticated by: [id number] Y Date: 06/19/2024 14:37 Dictated By: Aliyah Nicole M.D. Signed By: 06/19/24 1440 DD/ 1437 TD/TT: Online Producer: Fungus Stain (Not yet review ed by provider) Interpretation: Performing Lab: Notes/Report: [facility] , Fungus Stain See Below For Report Fungus Stain Fungus Stain Please refer to the following specimen for additional lab results. 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 Fungus (Mycology) Culture see [id number] Fungus (Mycology) Culture Please refer to the following specimen for additional lab results. Performing Lab: see note SEE REPORT - [employer] Worker Id information not found for OBX-specific landscaping supervisor legend LC - [facility] LB Gram Stain Result (Not yet r eviewed by provider) Interpretation: Performing Lab: Notes/Report: [facility] , Gram Stain Result See Below For Report Few white blood cells. Gram Stain Result Gram Stain Result Few white blood cells. Gram Stain Result Gram Stain Result No organisms seen Few white blood cells. Gram Stain Result Gram Stain Result Few white blood cells. Gram Stain Result Performing Lab: see note LC - [facility] LB XR foot LT min 3V (Not yet r eviewed by provider) Interpretation: Performing Lab: Notes/Report: Source Facility: [place] [address] XRay Report Signed Patient: ZOILA RAMOS MR#: [id number] : 1970 Acct:[id number] Age/Sex: 54 / F ADM Date: 07/05/24 Loc: SURGOUT Attending Dr: Jordyn Bruce D.P.M. Ordering Physician: Jordyn Bruce D.P.M. Date of Service: 07/05/24 Procedure(s): XR foot LT min 3V Accession Number(s): [id number] cc: Shayy Dela Cruz M.D.; Jordyn Bruce D.P.M. [place] [address] Patient Name: ZOILA RAMOS MRN: [id number] date: 1970 Sex: F Assigned Patient Location: [email or web address] Current Patient Location: Accession/Order Number: [id number] Exam Date: 07/05/2024 22:49 Report Date: 07/05/2024 22:52 At the request of: JORDYN BRUCE DPNegro Procedure: XR foot LT min 3V LEFT FOOT - 3 views CLINICAL HISTORY: Postoperative imaging amputation of third left toe. COMPARISON: Left foot 06/13/2024 FINDINGS: There appears be interval amputations of the distal aspect of the third digit and the distal aspect of the second digit. Soft tissue swelling is present. Calcifications in the region of the previously third MTP joint with flattening of the head of the third metatarsal likely postoperative. No fracture or definitive plain film evidence of new osteomyelitis. XR/XR foot LT min 3V IMPRESSION: POSTOPERATIVE CHANGES INVOLVING THE SECOND AND THIRD DIGITS WITHOUT DEFINITIVE PLAIN FILM EVIDENCE OF NEW OSTEOMYELITIS.. Impression dictated by: Camilo Hui Jr., D.O.07/05/2024 10:52 PM Dictation Location: [place] [address] Electronically authenticated by: [id number] Y Date: 07/05/2024 22:52 Dictated By: Camilo Hui M.D. Signed By: 07/05/242253 DD/ 51 TD/TT: Online Producer: [place] [address] XRay Report Signed Patient: JULIA RAMOS MR#: [id number] : 1970 Acct:[id number] Age/Sex: 54 / F ADM Date: 07/05/24 [facility] Attending Dr: Jordyn Bruce D.P.M. Ordering Physician: Jordyn Bruce D.P.M. Date of Service: 07/05/24 Procedure(s): XR yanet t LT min 3V Accession Number(s): [id number] cc: Shayy Dela Cruz; Jordyn Bruce D.P.M. [place] [address] Patient Name: ZOILA RAMOS MRN: [id number] date: 1970 Sex: F Assigned Patient Loc ation: [facility] [[email or web address] Current Patient Location: Accession/Order Numb er: [id number] Exam Date: 07/05/2024 22:49 Report Date: 07/05/2024 22:52 At the request of: JORDYN BRUCE DPNegro Procedure: XR foot L T min 3V LEFT FOOT - 3 views CLINICAL HISTORY: Postoperative imaging amputation of third left toe. COMPARISON: Left yanet t 06/13/2024 FINDINGS: There appears be int erval amputations of the distal aspect of the third digit and the distal aspec t of the second digit. Soft tissue swelling is present. Calcifications in th e region of the previously third MTP joint with flattening of the head of the t hird metatarsal likely postoperative. No fracture or definitive plain shaji m evidence of new osteomyelitis. X R/XR foot LT min 3V IMPRESSION: POSTOPERATIVE CHANGE S INVOLVING THE SECOND AND THIRD DIGITS WITHOUT DEFINITIVE PLAIN FILM EVIDENCE OF NEW OSTEOMYELITIS.. Impression dictated by: Camilo Hui Jr., D.O.07/05/2024 10:52 PM Dictation Location: [place] [address] Electronically authenticated by: [id number] Y Date: 07/05/2024 22:52 Dictated By: Camilo Hui M.D. Signed By: 07/05/242253 DD/ 51 TD/TT: Online Producer: Gram Stain Result (Not yet r eviewed by provider) Interpretation: Performing Lab: Notes/Report: [facility] , Gram Stain Result See Below For Report Gr am Stain Result Gram Stain Result Please refer to the following specimen for additional lab results. Gram Stain Result Gram Stain Result see [id number] Gram St ain Result Performing Lab: see note SEE REPORT - [employer] Worker Id information not found for OBX-specific landscaping supervisor legend LC - [facility] LB Fungus Stain (Not yet review ed by provider) Interpretation: Performing Lab: Notes/Report: [facility] , Fungus Stain See Below For Report Fungus Stain Fungus Stain Please refer to the following specimen for additional lab results. Fungus Stain Fungus Stain see [id number] Fungus Stain Performing Lab: see note LC - [facility] LB SEE REPORT - [employer] Worker Id information not found for OBX-specific landscaping supervisor legend Tissue Culture (Not yet revi ewed by provider) Interpretation: Performing Lab: Notes/Report: [facility] , Tissue Culture See Below For Report Tissue Culture Tissue Culture No growth after 18-2 4 hours. Tissue Culture Tissue Culture Tissue Culture Tissue Culture No growth in 36 - 48 hours. Tissue Culture Performing Lab: see note LC - [facility] LB Anaerobic Cult, Extended Inc ub (Not yet reviewed by provider) Interpretation: Performing Lab: Notes/Report: [facility] , Anaerobic Cult, Extended Incub See Below For Report Anaerobic Cult, Extended Incub Anaerobic Cult, Extended Incub No aerobic or anaerobic growth in 72 hours. Anaerobic Cult, Extended Incub Anaerobic Cult, Extended Incub Anaerobic Cult, Extended Incub Anaerobic Cult, Extended Incub No growth after 14 days. Anaerobic Cult, Extended Incub Performing Lab: see note LC - [facility] LB XR foot LT min 3V (Not yet r eviewed by provider) Interpretation: Performing Lab: Notes/Report: Source Facility: [place] [address] [address] [address] XRay Report Signed Patient: ZOILA RAMOS MR#: [id number] : 1970 Acct:[id number] Age/Sex: 54 / F ADM Date: 08/10/24 Loc: Attending Dr: Jordyn Bruce D.P.M. Ordering Physician: Jordyn Bruce D.P.M. Date of Service: 08/10/24 Procedure(s): XR foot LT min 3V Accession Number(s): [id number] cc: Shayy Dela Cruz M.D.; Jordyn Bruce D.P.M. [place] [address] Patient Name: ZOILA RAMOS MRN: [id number] date: 1970 Sex: F Assigned Patient Location: Current Patient Location: Accession/Order Number: [id number] Exam Date: 08/10/2024 11:50 Report Date: 08/10/2024 11:55 At the request of: JORDYN BRUCE DPNegro Procedure: XR foot LT min 3V 3 views left foot plain film COMPARISON:07/05/2024 HISTORY: Sharp heel pain. Swelling. Postop imaging of the foot ACUTE FINDINGS: No new bony destruction. DEGENERATIVE CHANGE: Similar degenerative changes tiny calcaneal spur SOFT TISSUE FINDINGS: Similar soft tissue swelling. Resolved subcutaneous air. Atherosclerosis. 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 BONE MINERALIZATION: Diffuse osteopenia XR/XR foot LT min 3V IMPRESSION: Stable postsurgical changes. No developing osteomyelitis. No subcutaneous air. Impression dictated by: Yoni Callahan M.D.08/10/2024 11:55 AM Dictation Location: [place] [address] Electronically authenticated by: [id number] Y Date: 08/10/2024 11:55 Dictated By: Yoni Callahan D.O. Signed By: 08/10/24 1157 DD/ 1155 TD/TT: Online Producer: The [address] [place] [address] XRay Report Signed Patient: JULIA RAMOS MR#: [id number] : 1970 Acct:[id number] Age/Sex: 54 / F ADM Date: 08/10/24 Loc: Attending Dr: Jordyn Bruce D.P.M. Ordering Physician: Jordyn Bruce D.P.M. Date of Service: 08/10/24 Procedure(s): XR yanet t LT min 3V Accession Number(s): [id number] cc: Shayy Dela Cruz; Jordyn Bruce D.P.M. [place] [address] Patient Name: ZOILA RAMOS MRN: [id number] date: 1970 Sex: F Assigned Patient Loc ation: Current Patient Loca tion: Accession/Order Numb er: [id number] Exam Date: 08/10/2024 11:50 Report Date: 08/10/2024 11:55 At the request of: JORDYN BRUCE DPM Procedure: XR foot L T min 3V [address] ain film COMPARISON:07/05/2024 HISTORY: Sharp heel pain. Swelling. Postop imaging of the foot ACUTE FINDINGS: No n ew bony destruction. DEGENERATIVE CHANGE: Similar degenerative changes tiny calcaneal spur SOFT TISSUE FINDINGS : Similar soft tissue swelling. Resolved subcutaneous air. Atherosclerosis. JOINT EFFUSION: None POSTOP CHANGES: Stab le postsurgical changes of amputation of the second and third toe. BONE MINERALIZATION: Diffuse osteopenia X R/XR foot LT min 3V IMPRESSION: Stable postsurgical changes. No developing osteomyelitis. No subcutaneous air. Impression dictated by: Yoni Callahan M.D.08/10/2024 11:55 AM Dictation Location: [place] [address] Electronically authenticated by: [id number] Y Date: 08/10/2024 11:55 Dictated By: Donte Callahan D.O. Signed By: 08/10/24 115 DD/ 1155 TD/TT: Online Producer: Acid Fast Culture (Not yet r eviewed by provider) Interpretation: Performing Lab: Notes/Report: [facility] , Acid Fast Culture See Below For Report Specimen has been received and testing has been initiated. Acid Fast Culture Acid Fast Culture Negative Specimen has been received and testing has been initiated. Acid Fast Culture Acid Fast Culture No acid fast bacilli isolated after 6 weeks. Specimen has been received and testing has been initiated. Acid Fast Culture Acid Fast Culture Performed at: [facility] Specimen has been received and testing has been initiated. Acid Fast Culture Acid Fast Culture [address], [place] [id number] Specimen has been received and testing has been initiated. Acid Fast Culture Acid Fast Culture Mergers And Acquisitions Manager: Klarissa Jacobs PhD, Phone: [phone] Specimen has been received and testing has been initiated. Acid Fast Culture Performing Lab: see note SEE REPORT - [employer] Worker Id information not found for OBX-specific landscaping supervisor legend LC - [facility] LB Acid Fast Smear (Not yet rev iewed by provider) Interpretation: Performing Lab: Notes/Report: [facility] , Acid Fast Smear See Below For Report Acid Fast Smear Negative Performing Lab: see note LC - [facility] LB AFB Specimen Processing (Not yet reviewed by provider) Interpretation: Performing Lab: Notes/Report: [facility] , AFB Specimen Processing See Below For Report AFB Specimen Processing AFB Specimen Processing Tissue Grinding A FB Specimen Processing Performing Lab: see note LC - [facility] LB PROF CHEM 8 (BAS METB) (Not yet reviewed by provider) Interpretation: Performing Lab: Notes/Report: [facility] , Sodium 140 136-145 mmol/L Potassium 4.6 3.5-5.1 mmol/L Chloride 105 98-107 mmol/L Carbon Dioxide 29.8 21.0-32.0 mmol/L Anion Gap 9.8 Glucose 171 74-106 mg/dL Blood Urea Nitrogen 15.0 7.0-18.0 mg/dL Creatinine 1.01 0.55-1.02 mg/dL Estimated GFR ( Ligia >60 >=60 mL/min/1.73m 2 Estimated GFR (Non- Rebecca 58 >=60 mL/min/1.73m 2 BUN Creatinine Ratio 14.9 Calcium 9.0 8.5-10.1 mg/dL Performing Lab: see note - [facility] LB Erythrocyte Sedimentation Ra te (Not yet reviewed by provider) Interpretation: Performing Lab: Notes/Report: [facility] , Erythrocyte Sedimentation Rate 28 <=30 mm/hr Performing Lab: see note ML - [facility] LB CBC AUTO DIFF (Not yet revie wed by provider) Interpretation: Performing Lab: Notes/Report: [facility] , White Blood Count 7.2 4.0-11.0 10 3/uL Red Blood Count 4.44 4.20-5.40 10 6/uL Hemoglobin 13.0 12.0-16.0 g/dL Hematocrit 39.4 36.0-48.0 % Mean Corpuscular Volume 88.7 81.0-99.0 fL Mean Corpuscular Hemoglobin 29.3 26.7-34.0 pg Mean Corpuscular HGB Conc 33.0 29.9-35.2 g/dL Red Cell Distribution Width 12.9 11.0-15.0 % Platelet Count 243 150-450 10 3/uL Mean Platelet Volume 9.9 9.5-13.5 fL Neutrophils Percent Auto 58.1 43.0-75.0 % Lymphocytes Percent Auto 30.4 20.5-60.0 % Monocytes Percent Auto 7.1 1.7-12.0 % Eosinophils Percent Auto 3.5 0.9-7.0 % Basophils Percent Auto 0.6 0.2-2.0 % Immature Granulocytes Pct Auto 0.3 0.0-0.5 % Neutrophils Absolute Auto 4.2 1.4-6.5 10 3/uL Lymphocytes Absolute Auto 2.2 1.2-3.8 10 3/uL Monocytes Absolute Auto 0.5 0.3-0.8 10 3/uL Eosinophils Absolute Auto 0.3 0.0-0.7 10 3/uL Basophils Absolute Auto 0.0 0.0-0.1 10 3/uL Immature Granulocytes Abs Auto 0.02 0.00-0.03 10 3/uL Performing Lab: see note ML - [facility] LB VC SEGMENTAL PRESSURES (Not yet reviewed by provider) Interpretation: Performing Lab: Notes/Report: Source Facility: [facility] [place] [address] [place] [address] Vein Report Signed Patient: ZOILA RAMOS MR#: [id number] : 1970 Acct:[id number] Age/Sex: 54 / F ADM Date: 05/09/24 Loc: VC Attending Dr: Jordyn Bruce D.P.M. Ordering Physician: Jordyn Bruce D.P.M. Date of Service: 05/09/24 Procedure(s): VC SEGMENTAL PRESSURES Accession Number(s): [id number] cc: Shayy Dela Cruz M.D.; Jordyn Bruce D.P.M. [place] [id number] Patient Name: ZOILA RAMOS MRN: [id number] date: 1970 Sex: F Assigned Patient Location: VC Current Patient Location: VC Accession/Order Number: [id number] Exam Date: 05/09/2024 13:04 Report Date: 05/09/2024 14:53 At the request of: JORDYN BRUCE Procedure: VC SEGMENTAL PRESSURES EXAM: VC SEGMENTAL PRESSURES HISTORY: R09.89 COMPARISON: None. FINDINGS: Segmental pressures presented as follows (right, left) in mmHg. Brachial: 132, N/A Lower thigh: 178, 201 Calf: 179, 174 DPA: 248, 234 DESK MONITOR: 259, 113 1st Toe: 86, 103 HIEU: 1.96, 1.77 TBI: 0.65, 0.78 The ABIs are elevated The TBI's are Acceptable PVR waveforms: Right leg: Thigh: Normal Above knee: Normal Below knee: Normal Right ankle: Normal Left leg: Thigh: Normal Above knee: Normal Below knee: Normal Right ankle: Normal VEIN/VC SEGMENTAL PRESSURES IMPRESSION: Elevated ABIs suggest bilateral calcific atherosclerosis Normal PVR waveforms Electronically authenticated by: JOHN JAVED Date: 05/09/2024 14:53 Dictated By: John Javed M.D. Signed By: 05/09/24 1455 DD/ 1453 TD/TT: Online Producer: [place] [address] Vein Report Signed Patient: JULIA RAMOS MR#: [id number] : 1970 Acct:[id number] Age/Sex: 54 / F ADM Date: 05/09/24 Loc: VC Attending Dr: Jordyn Bruce D.P.M. Ordering Physician: Jordyn Bruce D.P.M. Date of Service: 05/09/24 Procedure(s): VC SEG MENTAL PRESSURES Accession Number(s): [id number] cc: Shayy Dela Cruz; Jordyn Bruce D.P.M. [place] [address] Patient Name: ZOILA RAMOS MRN: [id number] date: 1970 Sex: F Assigned Patient Loc ation: VC Current Patient Loca tion: VC Accession/Order Numb er: [id number] Exam Date: 05/09/2024 13:04 Report Date: 05/09/2024 14:53 At the request of: JORDYN BRUCE Procedure: VC SEGMEN OZZY PRESSURES EXAM: VC SEGMENTAL PRESSURES HISTORY: R09.89 COMPARISON: None. FINDINGS: Segmental pressures presented as follows (right, left) in mmHg. Brachial: 132, N/A Lower thigh: 178, 201 Calf: 179, 174 DPA: 248, 234 DESK MONITOR: 259, 113 1st Toe: 86, 103 HIEU: 1.96, 1.77 TBI: 0.65, 0.78 The ABIs are elevated The TBI's are Acceptable PVR waveforms: Right leg: Thigh: Normal Above knee: Normal Below knee: Normal Right ankle: Normal Left leg: Thigh: Normal Above knee: Normal Below knee: Normal Right ankle: Normal V EIN/VC SEGMENTAL PRESSURES IMPRESSION: Elevated ABIs sugges t bilateral calcific atherosclerosis Normal PVR waveforms Electronically authenticated by: JOHN JAVED Date: 05/09/2024 14:53 Dictated By: Matt Javed M.D. Signed By: 05/09/24 1455 DD/ 52 TD/TT: Online Producer: JULIA munoz LT min 3V (Not yet r eviewed by provider) Interpretation: Performing Lab: Notes/Report: Source Facility: [place] [address] [place] [address] XRay Report Signed Patient: ZOILA RAMOS MR#: [id number] : 1970 Acct:[id number] Age/Sex: 54 / F ADM Date: 04/27/24 Loc: [facility] Attending Dr: Jordyn Bruce D.P.M. Ordering Physician: Jordyn Bruce D.P.M. Date of Service: 04/27/24 Procedure(s): XR foot LT min 3V Accession Number(s): [id number] cc: Shayy Dela Cruz M.D.; Jordyn Bruce D.P.M. [place] [address] Patient Name: ZOILA RAMOS MRN: [id number] date: 1970 Sex: F Assigned Patient Location: Current Patient Location: Accession/Order Number: [id number] Exam Date: 04/27/2024 09:20 Report Date: 04/27/2024 13:47 At the request of: JORDYN BRUCE Procedure: XR foot LT min 3V PROCEDURE: XR foot LT min 3V HISTORY: LEFT FOOT PAIN COMPARISON: XR foot left 04/19/2024 FINDINGS: BONES:Acute to subacute transverse fracture through distal neck of second toe distal phalanx with slight medial displacement of the tuft. Old fracture fragment at medial base of second proximal phalanx likely sequela of remote injury. Mild flattening of plantar arch. SOFT TISSUES:No visible soft tissue swelling. EFFUSION:None visible. OTHER: Negative. XR/XR foot LT min 3V IMPRESSION: 1. Stable acute to subacute fracture of second toe distal phalanx. Electronically authenticated by: NARINDER LAN Date: 04/27/2024 13:47 Dictated By: Narinder Lan M.D. Signed By: 04/27/24 1350 DD/ 1347 TD/TT: Online Producer: [place] [address] XRay Report Signed Patient: JULIA RAMOS MR#: [id number] : 1970 Acct:[id number] Age/Sex: 54 / F ADM Date: 04/27/24 Loc: EC Attending Dr: Jordyn Bruce D.P.M. Ordering Physician: Jordyn Bruce D.P.M. Date of Service: 04/27/24 Procedure(s): XR yanet t LT min 3V Accession Number(s): [id number] cc: Shayy Dela Cruz; Jordyn Bruce D.P.M. [place] [id number] Patient Name: ZOILA RAMOS MRN: [facility]:[id number] date: 1970 Sex: F Assigned Patient Loc ation: EC Current Patient Loca tion: EC Accession/Order Numb er: [id number] Exam Date: 09:20 Report Date: 04/27/2024 13:47 At the request of: JORDYN BRUCE Procedure: XR foot L T min 3V PROCEDURE: XR foot L T min 3V HISTORY: LEFT FOOT PAIN COMPARISON: XR foot left 04/19/2024 FINDINGS: BONES:Acute to subac [place] transverse fracture through distal neck of second toe distal phalanx with slight medial displacement of the tuft. Old fracture fragment at medial b ase of second proximal phalanx likely sequela of remote injury. Mild flatten ing of plantar arch. SOFT TISSUES:No visi ble soft tissue swelling. EFFUSION:None visible. OTHER: Negative. X R/XR foot LT min 3V IMPRESSION: 1. Stable acute to subacute fracture of second toe distal phalanx. Electronically authenticated by: NARINDER LAN Date: 04/27/2024 13:47 Dictated By: Narinder Lan M.D. Signed By: 04/27/24 1354 DD/ 1347 TD/TT: Online Producer: Tissue Culture (Not yet revi ewed by provider) Interpretation: Performing Lab: Notes/Report: [facility] , Tissue Culture See Below For Report Tissue Culture Tissue Culture No growth after 18-2 4 hours. Tissue Culture Tissue Culture Tissue Culture Tissue Culture No growth in 36 - 48 hours. Tissue Culture Tissue Culture No growth in 56 - 72 hours. Tissue Culture Tissue Culture Performed at: [facility] Tissue Culture Tissue Culture [address] [place] [id number] Tissue Culture Tissue Culture Mergers And Acquisitions Manager: Klarissa Jacobs PhD, Phone: [phone] Tissue Culture Tissue Culture Tissue Culture Tissue Culture * This is a correcte d result. * Tissue Culture Tissue Culture Tissue Culture Tissue Culture A prior result that was reported as final has been changed. Tissue Culture Performing Lab: see note SEE REPORT - [employer] Worker Id information not found for OBX-specific landscaping supervisor legend LC - [facility] LB AFB Specimen Processing (Not yet reviewed by provider) Interpretation: Performing Lab: Notes/Report: [facility] , AFB Specimen Processing See Below For Report AFB Specimen Processing AFB Specimen Processing Tissue Grinding A FB Specimen Processing Performing Lab: see note - [facility] LB Tissue Culture (Not yet revi ewed by provider) Interpretation: Performing Lab: Notes/Report: [facility] , Tissue Culture See Below For Report Tissue Culture WILL FOLLOW Tissue Culture Tissue Culture WILL FOLLOW Tissue Culture No growth after 18-2 4 hours. Tissue Culture WILL FOLLOW Tissue Culture Tissue Culture WILL FOLLOW Tissue Culture No growth in 36 - 48 hours. Tissue Culture WILL FOLLOW Performing Lab: see note LC - [facility] LB Anaerobic Cult, Extended Inc ub (Not yet reviewed by provider) Interpretation: Performing Lab: Notes/Report: [facility] , Anaerobic Cult, Extended Incub See Below For Report Anaerobic Cult, Extended Incub Anaerobic Cult, Extended Incub No aerobic or anaerobic growth in 72 hours. Anaerobic Cult, Extended Incub Anaerobic Cult, Extended Incub Anaerobic Cult, Extended Incub Anaerobic Cult, Extended Incub No growth after 14 days. Anaerobic Cult, Extended Incub Performing Lab: see note LC - [facility] LB Prothrombin Time INR (Not ye t reviewed by provider) Interpretation: Performing Lab: Notes/Report: [facility] , Prothrombin Time 10.7 9.0-11.6 sec INR 1.01 2.5-3.5 FOR PROSTHETIC HEART VALVE REPLACEMENT DESIRED INR: 2.0-3.0 CONDITIONS NOT LISTED BELOW 2.5-3.5 RECURRENT THROMBOSIS Performing Lab: see note - [facility] LB PTT (Not yet reviewed by pro vider) Interpretation: Performing Lab: Notes/Report: [facility] , Partial Thromboplastin Time 25.3 22.3-36.2 sec Performing Lab: see note ML - [facility] LB CBC AUTO DIFF (Not yet revie wed by provider) Interpretation: Performing Lab: Notes/Report: [facility] , White Blood Count 8.8 4.0-11.0 10 3/uL Red Blood Count 4.48 4.20-5.40 10 6/uL Hemoglobin 13.1 12.0-16.0 g/dL Hematocrit 39.1 36.0-48.0 % Mean Corpuscular Volume 87.3 81.0-99.0 fL Mean Corpuscular Hemoglobin 29.2 26.7-34.0 pg Mean Corpuscular HGB Conc 33.5 29.9-35.2 g/dL Red Cell Distribution Width 13.1 11.0-15.0 % Platelet Count 359 150-450 10 3/uL Mean Platelet Volume 10.1 9.5-13.5 fL Neutrophils Percent Auto 62.1 43.0-75.0 % Lymphocytes Percent Auto 28.3 20.5-60.0 % Monocytes Percent Auto 6.0 1.7-12.0 % Eosinophils Percent Auto 2.8 0.9-7.0 % Basophils Percent Auto 0.7 0.2-2.0 % Immature Granulocytes Pct Auto 0.1 0.0-0.5 % Neutrophils Absolute Auto 5.5 1.4-6.5 10 3/uL Lymphocytes Absolute Auto 2.5 1.2-3.8 10 3/uL Monocytes Absolute Auto 0.5 0.3-0.8 10 3/uL Eosinophils Absolute Auto 0.3 0.0-0.7 10 3/uL Basophils Absolute Auto 0.1 0.0-0.1 10 3/uL Immature Granulocytes Abs Auto 0.01 0.00-0.03 10 3/uL Performing Lab: see note ML - [facility] LB PROF CHEM 8 (BAS METB) (Not yet reviewed by provider) Interpretation: Performing Lab: Notes/Report: [facility] , Sodium 141 136-145 mmol/L Potassium 5.1 3.5-5.1 mmol/L Chloride 104 98-107 mmol/L Carbon Dioxide 30.6 21.0-32.0 mmol/L Anion Gap 11.5 Glucose 206 74-106 mg/dL Blood Urea Nitrogen 12.0 7.0-18.0 mg/dL Creatinine 1.01 0.55-1.02 mg/dL Estimated GFR ( Ligia >60 >=60 mL/min/1.73m 2 Estimated GFR (Non- Rebecca 58 >=60 mL/min/1.73m 2 BUN Creatinine Ratio 11.9 Calcium 9.1 8.5-10.1 mg/dL Performing Lab: see note ML - [facility] LB CRP (Not yet reviewed by pro vider) Interpretation: Performing Lab: Notes/Report: [facility] , C Reactive Protein 1.26 <=0.50 mg/dL Performing Lab: see note ML - [facility] LB Reason For Referral Reason evaluation and treat ment -- see attached order Diagnosis 1 Strain of right Achi lles tendon, initial encounter (S86.011A) Referral Organization [facility] (PODIATRY) Referring Provider First Name Jordyn Referring Provider Last Name Janis Referring Provider Speciality Podiatry Referred Provider [facility], Physical Therap y Referred Provider Specialty Physical Med icine and Rehabilitation Referral Priority Routine Reason Right Achilles strai n Right Achilles partial tear Diagnosis 1 Strain of right Achi lles tendon, subsequent encounter (S86.011D) Referral Organization [facility] (PODIATRY) Referring Provider First Name Jordyn Referring Provider Last Name Janis Referring Provider Speciality Podiatry Referred Provider Specialty Physical The rapist Referral Priority Routine Reason Right Achilles tear Diagnosis 1 Type 2 diabetes holli itus with diabetic polyneuropathy (E11.42) Diagnosis 2 Strain of right Achi lles tendon, subsequent encounter (S86.011D) Referral Organization [facility] (PODIATRY) Referring Provider First Name Jordyn Referring Provider Last Name Janis [facility] Referred Provider Specialty Physical The rapist Referral Priority Routine Medications Medication SIG (Take, Route, Frequency, Duration) Notes Start Date End Date Status Dexcom G7 Human Resources Trainer - USE 4 TIMES A DAY A S DIRECTED for 90 Days Active Sulfamethoxazole-Trimetho prim 800-160 MG TAKE 1 TABLET BY MOUTH TWICE A DAY FOR 21 DAYS for 21 Active Famotidine 20 MG TAKE 1 TABLET BY PEDRO TH DAILY AT BEDTIME Oral for 30 Days Active Amoxicillin-Pot Clavulanate 875-125 MG TAKE 1 TABLET BY MOUTH EVERY 12 HOURS FOR 21 DAYS for 21 Active Ibuprofen 600 MG Oral for 10 Days Active Ozempic (0.25 or 0.5 MG/DOSE) 2 MG/3ML INJECT 0.25 MG SUBCUTANEOUSLY EVERY WEEK FOR 4 WEEKS Subcutaneous for 28 Days Active HYDROcodone-Acetaminophen 5-325 MG 1-2 tablet as needed Orally every 6 hrs for 5 days 07/03/2024 Active BD Pen Needle Mini U/F 31G X 5 MM for 90 Days Active HYDROcodone-Acetaminophen 5-325 MG 1 tablet as needed Orally every 6 hrs prn for 7 days As needed 06/18/2024 Active HYDROcodone-Acetaminophen 5-325 MG 1 tablet as needed Orally every 6 hrs for 5 days 07/05/2024 Active tiZANidine HCl 4 MG 1 tablet at bedtime as needed Orally Three times a day for 7 days 04/04/2024 Active Toujeo SoloStar 300 UNIT/ML INJECT 75 UNITS IN THE MORNING, 80 UNITS IN THE EVENING Subcutaneous for 87 Days Active Social History Tobacco Use: Social History Observation Description Date Details (start date - stop date) Former Smoker NA - NA Tobacco Control (Standard) Question Answer Notes Tobacco use: Former smoker Problems Problem Type SNOMED Code ICD Code Onset Dates Problem Status W/U Status Risk Notes Problem [id number] Type 2 diabetes mellitus with diabetic polyneuropathy (E11.42) Active confirmed Problem Foot ulcer due to type 2 diabetes mellitus (4029063360725) Type 2 diabetes mellitus with foot ulcer (E11.621) Active confirmed Problem [id number] Other acute osteomyelitis, left ankle and foot (M86.172) Active confirmed Problem Ulcer of left foot (disorder) (940793995) 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) Active confirmed Problem Amputation stump pain (T87.89) Active confirmed Vital Signs Heart Rate 80 /min 05/16/2024 Temperature 97.3 degrees Fahrenheit 04/27/2024 Respiratory Rate 16 /min 11/15/2023 Oximetry 97 % 05/16/2024 Height 62 in 05/16/2024 Weight 204 lbs 05/16/2024 BMI 37.31 kg/m2 05/16/2024 Procedures Procedure Date Ordered Date Performed Result Body Sit e HIEU Segmental Pressure Study of Lower Extremity 04/27/2024 N/A Encounters Encounter Location Date Provider Diagnosis [facility] (PODIATRY) [address] [place] [address] [place] [address] 10/28/2023 Jordyn Bruce [facility] (PODIATRY) [address] [place] [address] [place] [address] 03/19/2024 Jordyn Bruce [facility] ([facility]) [address] [place] [address] [place] [address] 04/20/2024 Jordyn Bruce [facility] ([facility]) [address] [place] [address] [place] [address] 04/30/2024 Jordyn Bruce [facility] ([facility]) [address] [place] [address] [place] [address] 05/08/2024 Jordyn Bruce [facility] ([facility]) [address] [place] [address] [place] [address] 06/18/2024 Jordyn Bruce Other acute osteomyelitis, left ankle and foot M86.172 [facility] (P[facility]) [address] [place] [address] [place] [address] 06/18/2024 Jordyn Bruce Other acute osteomyelitis, left ankle and foot M86.172 [facility] ([facility]) [address] [place] [address] [place] [address] 06/18/2024 Jordyn Bruce [facility] ([facility]) [address] [place] [address] [place] [address] 07/03/2024 Fabián Messina [facility] ([facility]) [address] [place] [address] [place] [address] 07/05/2024 Jordyn Bruce [facility] ([facility]) [address] [place] [address] [place] [address] 10/04/2023 Jordyn Bruce Strain of right Achilles tendon, initial encounter S86.011A [facility] ([facility]) [address] [place] [address] [place] [address] 11/15/2023 Jordyn Bruce Strain of right Achilles tendon, subsequent encounter S86.011D [facility] ([facility]) [address] [place] [address] [place] [address] 01/24/2024 Jordyn Bruce Strain of right Achilles tendon, initial encounter S86.011A and Strain of right Achilles tendon, subsequent encounter S86.011D [facility] ([facility]) [address] [place] [address] [place] [address] 03/07/2024 Jordyn Bruce Strain of right Achilles tendon, initial encounter S86.011A ; Type 2 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 and Strain of right Achilles tendon, subsequent encounter S86.011D [facility] (PODIATRY) [address] [place] [address] [place] [address] 04/04/2024 Jordyn Bruce Strain of right Achilles tendon, initial encounter S86.011A and Type 2 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 [facility] (POD[facility]) [address] [place] [address] [place] [address] 04/27/2024 Jordyn Bruce Other acute osteomyelitis, left ankle and foot M86.172 ; Type 2 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 ; Left foot pain M79.672 and Strain of right Achilles tendon, initial encounter S86.011A [facility] (POD[facility]) [address] [place] [address] [place] [address] 05/16/2024 Jordyn Bruce Other acute osteomyelitis, left ankle and foot M86.172 Assessments Encounter Date Diagnosis (ICD Code) Assessment Notes Treatment Notes Treatment Clinical Notes Section Notes 10/04/2023 Strain of right Achilles tendon, initial encounter (ICD-10 - S86.011A) Patient seen and evaluated and patient education provided. Patient is doing somewhat better and much encouragement was provided as I do not believe that she will require surgery anytime soon for her issue. She does not have a history of Achilles tendinitis so I believe with RICE therapy OTC pain medicine and physical therapy which was prescribed today will be sufficient to alleviate her current symptoms. She will follow-up in a month no new x-rays needed call sooner if any problems arise 11/15/2023 Strain of right Achilles tendon, subsequent encounter (ICD-10 - S86.011D) The patient is a 53-year-old female who presents for reevaluation of right Achilles strain/partial tear, DOI: 09/04/23. Patient has completed some physical therapy and reports continued improvement in pain and functionality. She continues to complain of a painful lump in the Achilles tendon. She was encouraged to massage this area is much as possible. I recommend dry needling with physical therapy. She should also continue to work on strengthening and range of motion with physical therapy. She was advised that it may take a full year for a complete recovery from this injury. Follow-up in 8 weeks, sooner if any issues arise. No x-rays necessary at that time. 01/24/2024 Strain of right Achilles tendon, initial encounter (ICD-10 - S86.011A) Patient follows up for an injury sustained roughly 4 months ago. She is showing slow but steady improvement. I recommended to continue home stretching and home physical therapy as she has reached the maximum number of physical therapy appointments that her insurance will allow.She does relate to having issues with finding diabetic shoes and inserts as the [facility] can no longer supply these for her I offered referral to Dr. Sow/Josie however she has transportation issues and she relates that she will have to wait till next year.Fortunately she is doing better and due to social and transportation issues she may follow-up as needed if pain does not continue to improve 01/24/2024 Strain of right Achilles tendon, subsequent encounter (ICD-10 - S86.011D) 03/07/2024 Strain of right Achilles tendon, initial encounter (ICD-10 - S86.011A) Patient suffered another Achilles tendon injury last week and is very tender on examination. I am concerned for partial versus total Achilles tendon tear therefore recommended an ordered an MRI today. She may be partial protected weightbearing in her cam boot but recommended that she be in 3 wedges which was placed in her boot today. She was prescribed [place] but stated that it made her extremely sleepy and therefore would like to continue with just Tylenol. If her pain is uncontrolled she will call and I would be happy to prescribe her something stronger than Tylenol.Although patient relates that her blood sugars have been much improved of late her last hemoglobin A1c was 9.9 and I am not sure she is a great surgical candidate if she does have a total rupture of her Achilles tendon. She also has difficulty being nonweightbearing so I recommended a knee scooter and also provided her a prescription for a walker to help with that short distances around her house. She will follow-up after the MRI is obtained 03/07/2024 Type 2 diabetes mellitus with diabetic polyneuropathy (ICD-10 - E11.42) Last hemoglobin A1c was reportedly 9.9 04/04/2024 Strain of right Achilles tendon, initial encounter (ICD-10 - S86.011A) Patient is roughly 5 weeks from Achilles tendon tear. Her pain overall is controlled with Tylenol however she is having periodic spasms in her calf therefore I prescribed Zanaflex. I discussed potential side effects of the medication.I discussed the potential risks and benefits of surgical versus nonsurgical treatment given patient's A1c is 9.9 and she already has some function of her Achilles tendon I recommended to continue nonsurgical care. She may partial weight-bear with 2 or 3 wedges in her cam boot and begin formal physical therapy. Prescription for physical therapy was provided as was nonoperative therapy protocol was sent to the therapy department. She will follow-up in 4 weeks call sooner if needed 04/04/2024 Type 2 diabetes mellitus with diabetic polyneuropathy (ICD-10 - E11.42) 05/16/2024 Other acute osteomyelitis, left ankle and foot (ICD-10 - M86.172) Patient seen and evaluated. Patient education provided and all questions answered to her satisfaction. I reviewed the pros and cons of partial second toe amputation versus medical management given the patient is showing signs of improvement I recommended to continue medical management and Bactrim was refilled. MRI and her noninvasive vascular studies were reviewed with her. She is applying Med[employer] daily and cover with a Band-Aid. She will follow-up in the wound center in 2 weeks. No new x-rays are needed 04/27/2024 Other acute osteomyelitis, left ankle and foot (ICD-10 - M86.172) Patient seen and evaluated. Patient education provided. Patient had no known trauma to the second toe but developed pain and swelling prompting visit to the emergency department x-rays revealed cortical change to the distal tuft of the distal phalanx of the second toe consistent with osteomyelitis. She has not had a wound and denies any drainage. Radiographically findings are consistent with osteomyelitis but clinically less so therefore I ordered an MRI as well as lab work consisting of CBC, Chem-8, ESR and CRP. I recommended to continue Augmentin and Bactrim and an additional 2 weeks (which would be 4 weeks of Treatment) was sent to the pharmacy.She is also not had recent ABIs/noninvasive vascular studies so these were ordered as well. Patient will follow-up after the MRI was obtained and will call when she has her laboratory work completed for my review. 04/27/2024 Type 2 diabetes mellitus with diabetic polyneuropathy (ICD-10 - E11.42) 06/18/2024 Other acute osteomyelitis, left ankle and foot (ICD-10 - M86.172) 06/18/2024 Other acute osteomyelitis, left ankle and foot (ICD-10 - M86.172) Electronic Prior Authorization was requested for HYDROcodone-Acetami nophen 5-325 MG Tablet. Provider can order medication once approval received. 04/27/2024 Left foot pain (ICD-10 - M79.672) 03/07/2024 Strain of right Achilles tendon, subsequent encounter (ICD-10 - S86.011D) 04/27/2024 Strain of right Achilles tendon, initial encounter (ICD-10 - S86.011A) Patient has been doing physical therapy for her right Achilles tendon tear. She would like to postpone today's visit as well as next week given her second toe issue which I believe is reasonable. I did recommend that she continue doing the exercises on her own daily. She was scheduled to come in next week but this visit can be pushed back and I will see her after her MRI is obtained which will hopefully be within the next 2 weeks Plan Of Treatment Pending Test Test Name Order Date XR Foot LT (3 views) * 04/27/2024 MRI Ankle RT w/o contrast (Hind Foot) MRI Foot LT w/o contrast (Fore Foot) CBC AUTO DIFF 05/16/2024 CBC AUTO DIFF 06/01/2024 CBC AUTO DIFF 06/19/2024 CRP 05/16/2024 PROF CHEM 8 (BAS METB) 05/16/2024 PROF CHEM 8 (BAS METB) 06/01/2024 PROF CHEM 8 (BAS METB) 06/19/2024 PTT 06/19/2024 AFB Specimen Processing 07/05/2024 AFB Specimen Processing 07/05/2024 Acid Fast Smear 07/05/2024 Acid Fast Culture 07/05/2024 XR foot LT min 3V 07/05/2024 XR foot LT min 3V 06/14/2024 XR foot LT min 3V 04/27/2024 XR foot LT min 3V 08/10/2024 ECG 12 lead 06/19/2024 Prothrombin Time INR 06/19/2024 Fungus Stain 07/05/2024 Fungus Stain 07/05/2024 Fungus (Mycology) Culture 07/05/2024 Erythrocyte Sedimentation Rate 5 XR chest 2V 06/19/2024 MR ankle RT wo con 03/24/2024 MR foot LT wo con 05/15/2024 HIEU Segmental Pressure Study of Lower Ex tremity 04/27/2024 VC SEGMENTAL PRESSURES 05/09/2024 Gram Stain Result 07/05/2024 Gram Stain Result 07/05/2024 Anaerobic Cult, Extended Incub 5 Anaerobic Cult, Extended Incub 5 Tissue Culture 07/05/2024 Tissue Culture 07/05/2024 Tissue Culture 07/05/2024 Insurance Providers Payer Name Payer Address Payer Phone Subscriber Number Group Number Insured Name Patient Relationship to Insured Coverage Start Date Coverage End Date [employer] DUAL ADV PRIMARY MEDICARE [address] [place] [address] [id number] [facility] Zoila Ramos Self - patient is the insured MEDICAID [place] 2ND INS [address] [facility] [address] [place] [id number] Zoila Ramos Self - patient is the insured Medical (General) History Medical History History ICD Code diabetes arthritis cardiovascular disease obesity Surgical History Surgery Date(Month/Year) right shoulder surgery cholecystectomy appendectomy
--- OUTSIDE RECORDS SUMMARY | 2024-09-26 14:24 | XMS_ITS | Clinical Summary ---
Author Organization [facility] Address [address] [place] [address] Care Team Providers Care Client Service Executive Name Role Phone Unavailable Primary Care Provider Unavailabl e Family History Medical History Relation Name Comments Diabetes Father Heart disease Father Hypertension Father Arthritis Mother Diabetes Mother Hypertension Mother Relation Name Status Comments Father Mother Social History Tobacco Use Types Packs/Day Years Used Date Smoking Tobacco: Never Assessed Comments Unknown Sex and Gender Information Value Date Recorded Sex Assigned at Not on file Legal Sex Female 6:57 PM EDT Gender Identity Not on file Sexual Orientation Not on file Last Filed Vital Signs Vital Sign Reading Time Taken Comments Blood Pressure 118/74 08/16/2017 12:00 PM EDT Pulse - - Temperature - - Respiratory Rate - - Oxygen Saturation - - Inhaled Oxygen Concentration - - Weight 95.3 kg (210 lb) 09/02/2022 12:00 PM EDT Height 157.5 cm (5' 2 ) 09/02/2022 12:00 PM EDT Body Mass Index 38.41 09/02/2022 12:00 PM EDT Plan of Treatment Health Maintenance Due Date Last Done Comments CT Colonography 1972 Colonoscopy 1972 Colorectal Cancer Screening 1972 FIT-DNA 1972 FIT 1972 FOBT 1972 Sigmoidoscopy 1972 Pap Smear 01/15/1993 Cervical Cancer Screening 01/15/2002 HPV/Cotest 01/15/2002 Mammogram 2012 Influenza Vaccine (Season Ended) 2024 02/02/20 Insurance [employer] MEDICARE ADVANTAGE
--- OUTSIDE RECORDS SUMMARY | 2024-09-26 14:24 | XMS_ITS | Clinical Summary ---
Author Organization [facility] Address [address] [place] [address] Care Team Providers Care Manager Application Name Role Phone Shayy Ly MD Primary Care Provider [phone] Allergies Active Allergy Reactions Criticality Noted Date [...] (Lopressor) 25 mg tabletIndications:Yordan nary arteriosclerosis in [place] artery,Essential hypertension Take 1 tablet (25 mg) by mouth in the morning and at bedtime. 180 tablet 3 05/19/2022 Active Additional Information Patient not taking.Reported on 06/19/2024 atorvastatin (Lipitor) 40 mg tabletIndications:Athe rosclerosis of [place] coronary artery of [place] heart without angina pectoris,Mixed hyperlipidemia Take 1 [...] B/P log Sinusitis 03/24/2022 Coronary arteriosclerosis in [place] artery 06/30 Assessment & Plan (05/19/2022 10:43 [...] 06/19/2024 3:25 PM EST Plan of Treatment Health Maintenance Due Date Last Done Comments CT Colonography 1972 Colonoscopy 1972 Diabetes: Hemoglobin A1C 1972 FIT-DNA 1972 FOBT 1972 Medicare Annual Wellness (AWV) 1972 Sigmoidoscopy 1972 Pneumococcal Vaccine: Pediat rics (0 to 5 Years) and At-Risk Patients (6 to 64 Years) (1 of 2 - PCV) 01/15/1978 Diabetes: Retinopathy Screening 01/15/1982 Depression Screening 1984 Diabetes: Urine Protein Screening 01/15/1991 Hepatitis B Vaccines (1 of 3 - 19+ 3-dose series) 01/15/1991 Pap Smear 01/15/1993 Adult Tetanus 01/15/1994 Cervical Cancer Screening 01/15/2002 HPV/Cotest 01/15/2002 Mammogram 2012 Zoster Vaccines (1 of 2) 01/15/2022 COVID-19 Vaccine (1 - 2023-2 5 season) 2024 Influenza Vaccine (Season Ended) 2024 Colorectal Cancer Screening 06/06/2025 FIT 06/06/2025 06/06/2024 HIB Vaccines Aged Out No longer eligi ble based on patient's age to complete this topic HPV Vaccines Aged Out No longer eligi ble based on patient's age to complete this topic IPV Vaccines Aged Out No longer eligi ble based on patient's age to complete this topic Meningococcal B Vaccine Aged Out No l onger eligible based on patient's age to complete this topic Meningococcal Vaccine Aged Out No kolton david eligible based on patient's age to complete this topic Rotavirus Vaccines Aged Out No longer eligible based on patient's age to complete this topic Care Teams Manager Application Relationship Specialty Start Date End Date Shayy Ly MD [address] [facility]A PCP - General 05/19/22
--- OUTSIDE RECORDS SUMMARY | 2024-09-26 14:24 | XMS_ITS | Patient Health Record ---
Author Organization [facility] Address [address] [place] [address] Care Team Providers Care Manager Of Tax Name Role Phone Shayy Ly M.D. Primary Care Provider Unavail able Narinder Alvarez Unavailable [phone] Allergies Allergen (clinical drug ingredient) Drug/Non Drug Allergy documented on EMR Reaction Allergy Type Onset Date Status Latex latex (uncoded) Unknown Allergy Acti ve codeine codeine Unknown Drug Allergy Active Reason For Referral No Information Medications Medication SIG (Take, Route, Frequency, Duration) Notes Start Date End Date Status lisinopril Active carvedilol Active NexIUM Active meloxicam Active aspirin Active HumaLOG Active metFORMIN Active Social History Tobacco Use: Social History Observation Description Date Details (start date - stop date) Never Smoker NA - NA Smoking History Question Answer Notes Smoking Status NonSmoker AUDIT-C (Standard) Question Answer Notes Did you have a drink containing alcohol in the p ast year? No Points 0 Interpretation Negative Problems Problem Type SNOMED Code ICD Code Onset Dates Problem Status W/U Status Risk Notes Problem [id number] Other fracture of lower end of right ulna, subsequent encounter for closed fracture with routine healing (S52.691D) Active confirmed Vital Signs Height 5'2 in 10/10/2023 Weight 211 lbs 10/10/2023 BMI 38.59 10/10/2023 Encounters Encounter [facility] [address] [place] [address] [place] [address] 10/10/2023 Narinder Alvarez Other fracture of lower [...] as-needed basis. Import medication Plan Of Treatment Pending Test Test Name Order Date SCC- WRIST 3 VIEW RIGHT [id number] 05/16/2023 SCC- WRIST 3 VIEW RIGHT [id number] 08/29/2023 SCC- PT/OT EVAL AND TREAT 3X/WEEK FOR 6 WEEKS 08/29/2023 Insurance Providers Payer Name Payer Address Payer Phone Subscriber Number Group Number Insured Name Patient Relationship to Insured Coverage Start Date Coverage End Date Medicare [place] [employer] [address] [place] [address] [id number] COLETTE DINH Self - patient is the insured [facility] Medicaid [address] [place] [address] [id number] COLETTE DINH Self - patient is the insured Medical (General) History Medical History History ICD Code Asthma/COPD Heart Attack Diabetes High Blood Pressure Latex Allergy Drug Allergies
== END 2024-09-26 14:20 | disposition home or self-care (01) ==
LOC: WC 14:19
PROVIDERS: PCP Family Medicine; Visit Provider Podiatrist Foot & Ankle Surgery
DX: I79.8 Other disorders of arteries, arterioles and capillaries in diseases classified elsewhere (principal)
CPT/HCPCS: G0463

== ENCOUNTER 2024-09-30 21:11 | Emergency (ER) | payer MEDICARE, MEDICAID, SELFPAY ==
--- OUTSIDE RECORDS SUMMARY | 2021-12-23 09:30 | XMS_ITS | Continuity of Care Document ---
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 Name Role Phone Debra Espino MD Unavailable Unavailable Allergies, Adverse Reactions, Alerts Substance Reaction Status Criticality codeine Upset stomach(severe) Active No Inf ormation latex Hives / Skin Rash(severe) Active No Information Medications Medication Instructions Dosage Effective Dates (start - stop) Status Comments ArmonAir Digihaler 55 mcg/actuation aerosol powder breath act, sensor inhale 2 puff by inhalation route 2 times every day - Active Flovent HFA 110 mcg/actuation aerosol inhaler inhale 1 puff by inhalation route 2 times every day - Active Proair Digihaler 90 mcg/actuation aerosol powder breath act, sensor inhale 2 puff by inhalation route every 4 - 6 hours as needed - Active Gas-X Extra Strength 125 mg capsule 1 capsule BID PO - Active esomeprazole magnesium 40 mg capsule,delayed release take 1 capsule by oral route every day 40 MG - Active simvastatin 20 mg tablet take 1 tablet by oral route every day in the evening 20 MG - Active Vazalore 81 mg capsule take 1 capsule by oral route every day 81 MG - Active metoprolol succinate ER 25 mg tablet,extended release 24 hr take 1 tablet by oral route 2 times every day 25 MG - Active clopidogrel 75 mg tablet take 1 tablet by oral route every day 75 MG - Active Humalog Abhay KwikPen (U-100) 100 unit/mL subcutaneous half-unit pen inject by subcutaneous route as per insulin protocol 0.00 - Active Toujeo Max U-300 SoloStar 300 unit/mL (3 mL) subcutaneous insulin pen 75 units subcutaneous BID - Active glipizide ER 10 mg tablet, extended release 24 hr take 2 tablet by oral route 2 times every day with breakfast 20 MG - Active metformin 1,000 mg tablet take 1 tablet by oral route 2 times every day with morning and evening meals 1000 MG - Active Procedures Procedure Date Ophthal DX Image Post Retina I And R Uni Or Bi OFFICE/OUTPATIENT VISIT, NEW Advance Directives Directive Yes / No Effective Date File Name No Information Encounters Encounter Description Practice Location Reason(s) For Visit Diagnoses Date Provider Providers Copied on Encounter OFFICE/OUTPATI ENT VISIT, [facility] , [address], [place], [address], [place] tel:[phone] RVA Andrew possible diabetic retinopathy (chief complaint) 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 [address], [place], [place], [id number], [place]. tel:[phone] Referring Provider: Bigg Rich, [address] [facility] [address], [place], [address]. tel:[phone] Family History Family Member Type Diagnosis Age At Onset Problem Family history of Diabetes m ellitus Problem Family history of hypertensi on Problem Family history of Cancer, un known Payers Payer name Insurance type Covered constitution party ID Authoriza tion(s) [facility] Comm Plan Dual Com [id number] Social History Type Description Quantity Date Captured Comments Alcohol Use Details No Caffeine Use Details No Tobacco Use Status Current non-smoker Smoking Status Never smoker Non-Smoking Tobacco Use Details : No Details Available : No Details Available Sex Female Vital Signs Date / Time: Height Weight BMI Pulse Rate Blood Pressure Temperature Respiratory Rate Body Surface Area Head Circumference Head Circ. Percentile Wt./Hector. Percentile BMI percentile Pulse Ox Inhaled Ox 2:05 PM 139/74 mm[Hg] Chief Complaint And Reason For Visit From encounter dated '12/23/2021 13:30'. possible diabetic retinopathy (chief complaint). Description: The 51 year old female presents for evaluation of possible diabetic retinopathy in the left eye per referral from Dr. Luciano. Patient states she was told at her appointment about a week ago that she had bleeding in her left eye. Patient denies blurry vision in both eyes today. Patient denies ocular pain, flashes of light, or floaters in both eyes. Reason For Referral Reason For Referral No Information History Of Present Illness Encounter Date Complaint History Of Prese nt Illness possible diabetic retinopathy Th e 51 year old female presents for evaluation of possible diabetic retinopathy in the left eye per referral from Dr. Luciano. Patient states she was told at her appointment about a week ago that she had bleeding in her left eye. Patient denies blurry vision in both eyes today. Patient denies ocular pain, flashes of light, or floaters in both eyes. 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
--- OUTSIDE RECORDS SUMMARY | 2023-08-29 06:00 | XMS_ITS ---
Author Organization [facility] Address [address] [place] [address] Care Team Providers Care Oceanographer Physical Name Role Phone Shayy Ly M.D. Primary Care Provider Unavail able Narinder Alvarez Unavailable [phone] Allergies Allergen (clinical drug ingredient) Drug/Non Drug [...] Encounters Encounter Location Date Provider Diagnosis [facility] Office [address] [place] [address] [place] [address] 08/29/2023 Narinder Kim Other fracture of lower [...] Order Date SCC- WRIST 3 VIEW RIGHT [id number] 08/29/2023 SCC- PT/OT EVAL AND TREAT 3X/WEEK FOR 6 WEEKS 08/29/2023 Next Appt Details Follow Up: 5 WEEK S, Reason: Progress Notes * LAUREN DINHEDOB:1970 (53 yo F)Acc No.[id number]:08/29/2023 Patient: COLETTE MCKEON Provider: Diogenes Alvarez MD :1970 A ge:53 Y S ex:Female Date:08/29/2023 Address:[address] [place], [place] [id number] Pcp:Shayy Ly M.D. Subjective: * Chief Complaints: [...] 08/29/2023 Generated for Miki blanton/Krista/Rupertitting on: 0 09/30/2024 09:17 PM EDT History and Physical Notes * [...]
--- OUTSIDE RECORDS SUMMARY | 2023-10-03 06:40 | XMS_ITS ---
Author Organization [facility] Address [address] [place] [address] Care Team Providers Care Bushel Worker Name Role Phone Shayy Ly M.D. Primary Care Provider Unavail Narinder Guo [facility] [phone] REASON FOR VISIT Right distal ulna fx Encounters Encounter Location Date Provider Diagnosis [facility] [facility] [address] [facility] [place] [address] [place] [address] 10/03/2023 Narinder Alvarez Plan Of Treatment No Information Progress Notes * LAUREN DINHEDOB:1970 (54 yo F)Acc No.[id number]:10/03/2023 Patient: COLETTE MCKEON Provider: Diogenes Alvarez MD :1970 A ge:53 Y S ex:Female Date:10/03/2023 Address:[facility] [address] [place], [id number] Pcp:Shayy Ly M.D. Subjective: * Chief Complaints: * 1 . Right distal ulna fx. * Medical History: Objective: * Vitals: Assessment: Plan: * Treatment: Forms: * Images: * Electronic signature of Jr Alvarez MD on 09/30/2024 at 09:17 PM EDT Sign off status: Pending * Provider: Diogenes Alvarez MD Date: 10/03/2023 Generated for Mkii blanton/Krista/eTransmitting on: 09/30/2024 09:17 PM EDT
--- OUTSIDE RECORDS SUMMARY | 2024-06-18 09:46 | XMS_ITS ---
Author Organization [facility] [place] Address [address] [place] [address] Care Team Providers Care Certified Wellness Program Manager Name Role Phone None, Unknown or Primary Care Provider Unavailab Sadi Dugan [phone] Medications Medication SIG (Take, Route, Frequency, Duration) Notes Start Date End Date Status HYDROcodone-Acetaminophen 5-325 MG 1 tablet as needed Orally every 6 hrs prn for 7 days As needed 06/18/2024 Active Encounters Encounter Location Date Provider Diagnosis [facility] (PODIATRY) [address] [place] [address] [place] [address] 06/18/2024 Sadi Bruce Plan Of Treatment Medication Medication Name Sig Start Date Stop Date Notes HYDROcodone-Acetaminophen 5- 325 MG 1 tablet as needed Orally every 6 hrs prn for 7 days 06/18/2024 Progress Notes * Aura RAMOSeDOB:1970 (54 yo F)Acc No.[id number]:06/18/2024 Patient: Zoila MCKEON :1970 A ge:54 Y S ex:Female Address:[address], [place], [address] * Refills Start HYDROcodone-Acetaminophen Tablet, 5-325 MG, Orally, 28, 1 tablet as needed, every 6 hrs prn, 7 days, Refills=0 * true * Date: Generated for Printi ng/Faxing/eTransmitting on: 0 09/30/2024 09:16 PM EDT
--- OUTSIDE RECORDS SUMMARY | 2024-07-03 05:32 | XMS_ITS ---
Author Organization The [facility] in [place] Address [address] [place] [address] Care Team Providers Care Wait Staff Name Role Phone None, Unknown or Primary Care Provider Unavailab Sailaja Hoffman [phone] Medications Medication SIG (Take, Route, Frequency, Duration) Notes Start Date End Date Status HYDROcodone-Acetaminophen 5-325 MG 1-2 tablet as needed Orally every 6 hrs for 5 days 07/03/2024 Active Encounters Encounter Location Date Provider Diagnosis [facility] (PODIATRY) [address] [place] [address] [place] [address] 07/03/2024 Sailaja Messina Plan Of Treatment Medication Medication Name Sig Start Date Stop Date Notes HYDROcodone-Acetaminophen 5- 325 MG 1-2 tablet as needed Orally every 6 hrs for 5 days 07/03/2024 Progress Notes * Aura RAMOSeDOB:1970 (54 yo F)Acc No.[id number]:07/03/2024 Patient: Zoila MCKEON :1970 A ge:54 Y S ex:Female Address:[facility] [address], [address] [place], [address] * Refills Start HYDROcodone-Acetaminophen Tablet, 5-325 MG, Orally, 20, 1-2 tablet as needed, every 6 hrs, 5 days, Refills=0 * true * Date: Generated for Printi ng/Faxing/eTransmitting on: 0 09/30/2024 09:16 PM EDT
--- OUTSIDE RECORDS SUMMARY | 2024-07-05 04:59 | XMS_ITS ---
Author Organization The [facility] in [place] Address [address] [place] [address] Care Team Providers Care Clinical Applications Manager Name Role Phone None, Unknown or Primary Care Provider Unavailab Sadi Dugan [phone] REASON FOR VISIT Rx post op Medications [...] Encounters Encounter Location Date Provider Diagnosis [facility] (PODIATRY) [address] [place] [address] [place] [address] 07/05/2024 Sadi Bruce Plan Of Treatment Medication [...] Notes * FABRIZIOAura BarriosSebleOB:1970 (54 yo F)Acc No.[id number]:07/05/2024 Patient: Zoila MCKEON :1970 A ge:54 Y S ex:Female Address:[address], [place], [address] * Refills Start HYDROcodone-Acetaminophen Tablet, 5-325 MG, Orally, 20 Tablet, 1 tablet as needed, every 6 hrs, 5 days, Refills=0 Start Sulfamethoxazole-Trimethoprim Tablet, 800-160 MG, Orally, 28, 1 tablet, twice daily, 14 days, Refills=0 Start Amoxicillin-Pot Clavulanate Tablet, 875-125 MG, Orally, 28, 1 tablet, twice daily, 14 days, Refills=0 * true * Date: Generated for Miki blanton/Krista/Jh on: 0 09/30/2024 09:17 PM EDT
--- OUTSIDE RECORDS SUMMARY | 2024-09-30 21:17 | XMS_ITS | Clinical Summary ---
Author Organization [facility] tem Address [id number] [address] [place] [address] Care Team Providers Care Cashier And Salesperson Name Role Phone Unavailable Primary Care Provider [...]
--- OUTSIDE RECORDS SUMMARY | 2024-09-30 21:17 | XMS_ITS | Patient Health Record ---
Author Organization [facility] in [place] Address [address] [place] [address] Care Team Providers Care Federal Aid Coordinator Name Role Phone None, Unknown or Primary Care Provider Unavailab Jordyn Dugan Unavailable [phone] Fabián Messina Unavailable [phone] Allergies Allergen (clinical drug ingredient) Drug/Non Drug Allergy documented on EMR Reaction Allergy Type Onset Date Status codeine Codeine Unknown Drug Allergy Active Latex Latex Unknown Allergy Active Results Component Value Reference Range Notes MR munoz LT wo con (Not yet r eviewed by provider) Interpretation: Performing Lab: Notes/Report: Source Facility: [place] [address] Magnetic Resonance Report Signed Patient: ZOILA RAMOS MR#: [id number] : 1970 Acct:[id number] Age/Sex: 54 / F ADM Date: 05/15/24 Loc: MRI Attending Dr: Jordyn Bruce D.P.M. Ordering Physician: Jordyn Bruce D.P.M. Date of Service: 05/15/24 Procedure(s): MR munoz LT wo con Accession Number(s): [id number] cc: Shayy Dela Cruz M.D.; Jordyn Bruce D.P.M. [place] [id number] Patient Name: ZOILA RAMOS MRN: [id number] date: 1970 Sex: F Assigned Patient Location: MRI Current Patient Location: MRI Accession/Order Number: [id number] Exam Date: 05/15/2024 14:45 Report Date: 05/15/2024 [...] By: Jake Pierson M.D. Signed By: 05/15/24 1650 DD/ 1647 TD/TT: Animal Trainer Supervisor: [place] [address] Magnetic Resonance Report Signed Patient: JULIA RAMOS MR#: [id number] : 1970 Acct:[id number] Age/Sex: 54 / F ADM Date: 05/15/24 Loc: MRI Attending Dr: Jordyn Bruce D.P.M. Ordering Physician: Jordyn Bruce D.P.M. Date of Service: 05/15/24 Procedure(s): MR yanet crook LT wo con Accession Number(s): [id number] cc: Shayy Dela Cruz; Jordyn Bruce D.P.M. [place] [address] Patient Name: ZOILA RAMOS MRN: [id number] date: 1970 Sex: F Assigned Patient Loc ation: MRI Current Patient Loca tion: MRI Accession/Order Numb er: [id number] Exam Date: 05/15/2024 14:45 Report Date: 05/15/2024 [...] Dictated By: Dashawn Pierson M.D. Signed By: 05/15/241649 DD/ 46 TD/TT: Animal Trainer Supervisor: CRP (Not yet reviewed by pro vider) Interpretation: Performing Lab: Notes/Report: [facility] , C Reactive Protein 1.26 <=0.50 mg/dL Performing Lab: see note ML - [facility] LB PROF CHEM 8 (BAS METB) (Not yet reviewed by provider) Interpretation: Performing Lab: Notes/Report: [facility] , Sodium 141 136-145 mmol/L Potassium 5.1 3.5-5.1 mmol/L Chloride 104 98-107 mmol/L Carbon Dioxide 30.6 21.0-32.0 mmol/L Anion Gap 11.5 Glucose 206 74-106 mg/dL Blood Urea Nitrogen 12.0 7.0-18.0 mg/dL Creatinine 1.01 0.55-1.02 mg/dL Estimated GFR ( Ligia >60 >=60 mL/min/1.73m 2 Estimated GFR (Non- Rebecca 58 >=60 mL/min/1.73m 2 BUN Creatinine Ratio 11.9 Calcium 9.1 8.5-10.1 mg/dL Performing Lab: see note - [facility] LB PROF CHEM 8 (BAS METB) (Not yet reviewed by provider) Interpretation: Performing Lab: Notes/Report: [facility] , Sodium 140 136-145 mmol/L Potassium 4.6 [...] 8.5-10.1 mg/dL Performing Lab: see note - [facility] LB XR foot LT min 3V (Not yet r eviewed by provider) Interpretation: Performing Lab: Notes/Report: Source Facility: [facility]-[address] [place] [address] [place] [address] XRay Report Signed Patient: ZOILA RAMOS MR#: [id number] : 1970 Acct:[id number] Age/Sex: 54 / F ADM Date: 06/13/24 Loc: Attending Dr: Fabián Messina Ordering Physician: Fabián Messina Date of Service: 06/13/24 Procedure(s): XR foot LT min 3V Accession Number(s): [id number] cc: Shayy Deal Cruz M.D.; Fabián Messina [place] [address] Patient Name: ZOILA RAMOS MRN: [id number] date: 1970 Sex: F Assigned Patient Location: Current Patient Location: Accession/Order Number: [id number] Exam Date: 06/13/2024 13:08 Report Date: 06/14/2024 [...] Signed By: 06/14/24 1004 DD/ 1001 TD/TT: Animal Trainer Supervisor: [place] [address] XRay Report Signed Patient: JULIA RAMOS MR#: [id number] : 1970 Acct:[id number] Age/Sex: 54 / F ADM Date: 06/13/24 Loc: SALUD Attending Dr: Harriet Messina Ordering Physician: Fabián Messina Date of Service: 06/13/24 Procedure(s): XR yanet t LT min 3V Accession Number(s): [id number] cc: Shayy Dela Cruz; Fabián Messina [address] [address] Patient Name: ZOILA RAMOS MRN: [id number] date: 1970 Sex: F Assigned Patient Loc ation: SALUD Current Patient Location: Accession/Order Numb er: [id number] Exam Date: 06/13/2024 13:08 Report Date: 06/14/2024 [...] Signed By: 06/14/24 1004 DD/ 1001 TD/TT: Animal Trainer Supervisor: CBC AUTO DIFF (Not yet revie wed by provider) Interpretation: Performing Lab: Notes/Report: [facility] , White Blood Count 8.8 4.0-11.0 10 [...] 0.00-0.03 10 3/uL Performing Lab: see note - [facility] LB PROF CHEM 8 (SHAHNAZ MATHIS) (Not yet reviewed by provider) Interpretation: Performing Lab: Notes/Report: [facility] , Sodium 137 136-145 mmol/L Potassium 4.2 [...] 8.5-10.1 mg/dL Performing Lab: see note - [facility] LB ECG 12 lead (Not yet reviewe d by provider) Interpretation: Performing Lab: Notes/Report: Source Facility: [facility]-[address] [place] [address] [place] [address] Electrocardiograph Report Signed Patient: ZOILA RAMOS MR#: [id number] : 1970 Acct:[id number] Age/Sex: 54 / F ADM Date: 06/19/24 Loc: PST Attending Dr: Jordyn Bruce D.P.M. Ordering Physician: Jordyn Bruce D.P.M. 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 Ordering Physician: Jordyn Bruce D.P.M. 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 Signed By: 06/20/24 0709 DD/ 1348 TD/TT: Animal Trainer Supervisor: XR chest 2V (Not yet reviewe d by provider) Interpretation: Performing Lab: Notes/Report: Source Facility: [place] [address] XRay Report Signed Patient: ZOILA RAMOS MR#: [id number] : 1970 Acct:[id number] Age/Sex: 54 / F ADM Date: 06/19/24 Loc: [facility] Attending Dr: Jordyn Bruce D.P.M. Ordering Physician: Jordyn Bruce D.P.M. Date of Service: 06/19/24 Procedure(s): XR chest 2V Accession Number(s): [id number] cc: Shayy Dela Cruz M.D.; Jordyn Bruce D.P.M. [place] [address] Patient Name: ZOILA RAMOS MRN: [id number] date: 1970 Sex: F Assigned Patient Location: [facility] Current Patient Location: [facility] Accession/Order Number: [id number] Exam Date: 06/19/2024 14:34 Report Date: 06/19/2024 [...] Aliyah Nicole M.D.06/19/2024 2:37 PM Dictation Location: [place] [address] Electronically authenticated by: [id number] Y Date: 06/19/2024 14:37 Dictated By: Aliyah Nicole M.D. Signed By: 06/19/24 1440 DD/ 1437 TD/TT: Animal Trainer Supervisor: [place] [address] XRay Report Signed Patient: JULIA RAMOS MR#: [id number] : 1970 Acct:[id number] Age/Sex: 54 / F ADM Date: 06/19/24 Loc: PST Attending Dr: Jordyn Bruce D.P.M. Ordering Physician: Jordyn Bruce D.P.M. Date of Service: 06/19/24 Procedure(s): XR chest 2V Accession Number(s): [id number] cc: Shayy Dela Cruz; Jordyn Bruce D.P.M. [place] [address] Patient Name: ZOILA RAMOS MRN: [id number] date: 1970 Sex: F Assigned Patient Loc ation: [facility] Current Patient Loca tion: [facility] Accession/Order Numb er: [id number] Exam Date: 06/19/2024 14:34 Report Date: 06/19/2024 [...] Aliyah Nicole M.D.06/19/2024 2:37 PM Dictation Location: [employer] Electronically authenticated by: [id number] Y Date: 06/19/2024 14:37 Dictated By: Aliyah Nicole M.D. Signed By: 06/19/24 1440 DD/ 1437 TD/TT: Animal Trainer Supervisor: AFB Specimen Processing (Not yet reviewed by provider) Interpretation: Performing Lab: Notes/Report: [facility] , AFB Specimen Processing See Below For Report AFB Specimen Processing AFB Specimen Processing Tissue Grinding AFB Specimen Processing Performing Lab: see note LC - [facility] LB Acid Fast Smear (Not yet rev iewed by provider) Interpretation: Performing Lab: Notes/Report: [facility] , Acid Fast Smear See Below For Report Acid Fast Smear Negative Performing Lab: see note LC - [facility] LB Acid Fast Culture (Not yet r eviewed by provider) Interpretation: Performing Lab: Notes/Report: [facility] , Acid Fast Culture See Below For Report Acid Fast Culture Specimen has been received and testing has been initiated. Acid Fast Culture Negative Acid Fast Culture Specimen has been received and testing has been initiated. Acid Fast Culture No acid fast bacilli isolated after 6 weeks. Acid Fast Culture Specimen has been received and testing has been initiated. Acid Fast Culture Performed at: [facility] Acid Fast Culture Specimen has been received and testing has been initiated. Acid Fast Culture [address] [place], [place] [id number] Acid Fast Culture Specimen has been received and testing has been initiated. Acid Fast Culture Clinical Laboratory Aide: Klarissa Jacobs PhD, Phone: [phone] Acid Fast Culture Specimen has been received and testing has been initiated. Performing Lab: see note LC - [facility] LB SEE REPORT - Integrated Pest Management Technician Id information not found for OBX-specific oil producer legend Fungus Stain (Not yet review ed by provider) Interpretation: Performing Lab: Notes/Report: [facility] , Fungus Stain See Below For Report Fungus Stain Fungus Stain Please refer to the following specimen for additional lab results. Fungus Stain Fungus Stain see [id number] Fungus Stain Performing Lab: see note LC - [facility] LB SEE REPORT - Integrated Pest Management Technician Id information not found for OBX-specific oil producer legend Fungus (Mycology) Culture (N ot yet reviewed by provider) Interpretation: Performing Lab: Notes/Report: [facility] , Fungus (Mycology) Culture See Below For Report Fungus (Mycology) Culture Please refer to the following specimen for additional lab results. Fungus (Mycology) Culture see [id number] Fungus (Mycology) Culture Please refer to the following specimen for additional lab results. Performing Lab: see note LC - [facility] LB SEE REPORT - Integrated Pest Management Technician Id information not found for OBX-specific oil producer legend Gram Stain Result (Not yet r eviewed by provider) Interpretation: Performing Lab: Notes/Report: [facility] , Gram Stain Result See Below For Report Gram Stain Result Few white blood cells. Gram Stain Result Gram Stain Result Few white blood cells. Gram Stain Result No organisms seen Gram Stain Result Few white blood cells. Gram Stain Result Gram Stain Result Few white blood cells. Performing Lab: see note LC - [facility] [...] provider) Interpretation: Performing Lab: Notes/Report: Source Facility: [place] [address] XRay Report Signed Patient: ZOILA RAMOS MR#: [id number] : 1970 Acct:[id number] Age/Sex: 54 / F ADM Date: 07/05/24 Loc: SURGOUT Attending Dr: Jordyn Bruce D.P.M. Ordering Physician: Jordyn Bruce D.P.M. Date of Service: 07/05/24 Procedure(s): XR foot LT min 3V Accession Number(s): [id number] cc: Shayy Dela Cruz M.D.; Jordyn Bruce D.P.M. [place] [address] Patient Name: ZOILA RAMOS MRN: [id number] date: 1970 Sex: F Assigned Patient Location: [facility] Current Patient Location: Accession/Order Number: [id number] Exam Date: 07/05/2024 22:49 Report Date: 07/05/2024 22:52 At the request of: JORDYN BRUCE DPM Procedure: XR foot LT min 3V LEFT [...] OSTEOMYELITIS.. Impression dictated by: Camilo Hui Jr., DChan07/05/2024 10:52 PM Dictation Location: [place] [address] Electronically authenticated by: [id number] Y Date: 07/05/2024 22:52 Dictated By: Camilo Hui M.D. Signed By: 07/05/242253 DD/ 51 TD/TT: Animal Trainer Supervisor: [place] [address] XRay Report Signed Patient: JULIA RAMOS MR#: [id number] : 1970 Acct:[id number] Age/Sex: 54 / F ADM Date: 07/05/24 Loc: SURGTAI Attending Dr: Jordyn Bruce D.P.M. Ordering Physician: Jordyn Bruce D.P.M. Date of Service: 07/05/24 Procedure(s): XR yanet t LT min 3V Accession Number(s): [id number] cc: Shayy Dela Cruz; Jordyn Bruce D.P.M. [place] [id number] Patient Name: ZOILA RAMOS MRN: [id number] date: 1970 Sex: F Assigned Patient Loc ation: SURGOUT Current Patient Location: Accession/Order Numb er: [id number] Exam Date: 07/05/2024 22:49 Report Date: 07/05/2024 22:52 At the request of: JORDYN BRUCE DPM [...] OSTEOMYELITIS.. Impression dictated by: Camilo Hui Jr., DCorettaOCoretta07/05/2024 10:52 PM Dictation Location: [place] [address] Electronically authenticated by: [id number] Y Date: 07/05/2024 22:52 Dictated By: Camilo Hui M.D. Signed By: 07/05/24 2254 DD/ 2252 TD/TT: Animal Trainer Supervisor: Gram Stain Result (Not yet r eviewed by provider) Interpretation: Performing Lab: Notes/Report: [facility] , Gram Stain Result See Below For Report Gram Stain Result Gram Stain Result Please refer to the following specimen for additional lab results. Gram Stain Result Gram Stain Result see [id number] Gram Stain Result Performing Lab: see note LC - [facility] LB SEE REPORT - Integrated Pest Management Technician Id information not found for OBX-specific oil producer legend Fungus Stain (Not yet review ed by provider) Interpretation: Performing Lab: Notes/Report: [facility] , Fungus Stain See Below For Report Fungus Stain Fungus Stain Please refer to the following specimen for additional lab results. Fungus Stain Fungus Stain see [id number] Fungus Stain Performing Lab: see note LC - [facility] LB SEE REPORT - Integrated Pest Management Technician Id information not found for OBX-specific oil producer legend AFB Specimen Processing (Not yet reviewed by provider) Interpretation: Performing Lab: Notes/Report: [facility] , AFB Specimen Processing See Below For Report AFB Specimen Processing AFB Specimen Processing Tissue Grinding AFB Specimen Processing Performing Lab: see note LC - [facility] LB Tissue Culture (Not yet [...] hours. Tissue Culture Tissue Culture Performed at: [facility] Tissue Culture Tissue Culture [address] [place], [place] [id number] Tissue Culture Tissue Culture Clinical Laboratory Aide: Klarissa Jacobs PhD, Phone: [phone] Tissue Culture Tissue Culture Tissue Culture Tissue Culture * This is a correcte d result. * Tissue Culture Tissue Culture Tissue Culture Tissue Culture A prior result that was reported as final has been changed. Tissue Culture Performing Lab: see note LC - [facility] LB SEE REPORT - Integrated Pest Management Technician Id information not found for OBX-specific oil producer legend Anaerobic Cult, Extended Inc ub (Not yet [...] Cult, Extended Incub Performing Lab: see note - [facility] LB XR foot LT min 3V (Not yet r eviewed by provider) Interpretation: Performing Lab: Notes/Report: Source Facility: [facility]-[address] [place] [address] [place] [address] XRay Report Signed Patient: ZOILA RAMOS MR#: [id number] : 1970 Acct:[id number] Age/Sex: 54 / F ADM Date: 08/10/24 Loc: Attending Dr: Jordyn Bruce D.P.M. Ordering Physician: Jordyn Bruce D.P.M. Date of Service: 08/10/24 Procedure(s): XR foot LT min 3V Accession Number(s): [id number] cc: Shayy Dela Cruz M.D.; Jordyn Bruce D.P.M. [place] [id number] Patient Name: ZOILA RAMOS MRN: [id number] date: 1970 Sex: F Assigned Patient Location: Current Patient Location: Accession/Order Number: [id number] Exam Date: 08/10/2024 11:50 Report Date: 08/10/2024 [...] Yoni Callahan M.D.08/10/2024 11:55 AM Dictation Location: [place] [address] Electronically authenticated by: [id number] Y Date: 08/10/2024 11:55 Dictated By: Yoni Callahan D.O. Signed By: 08/10/24 1157 DD/ 1155 TD/TT: Animal Trainer Supervisor: [place] [address] XRay Report Signed Patient: JULIA RAMOS MR#: [id number] : 1970 Acct:[id number] Age/Sex: 54 / F ADM Date: 08/10/24 Loc: Attending Dr: Jordyn Bruce D.P.M. Ordering Physician: Jordyn Bruce D.P.M. Date of Service: 08/10/24 Procedure(s): XR yanet t LT min 3V Accession Number(s): [id number] cc: Shayy Dela Cruz; Jordyn Bruce D.P.M. [place] [address] Patient Name: ZOILA RAMOS MRN: [id number] date: 1970 Sex: F Assigned Patient Loc ation: Current Patient Loca tion: Accession/Order Numb er: [id number] Exam Date: 08/10/2024 11:50 Report Date: 08/10/2024 [...] Yoni Callahan M.D.08/10/2024 11:55 AM Dictation Location: [place] [address] Electronically authenticated by: [id number] Y Date: 08/10/2024 11:55 Dictated By: Donte Callahan D.O. Signed By: 08/10/24 1157 DD/ 1155 TD/TT: Animal Trainer Supervisor: Tissue Culture (Not yet revi ewed by provider) Interpretation: Performing Lab: Notes/Report: [facility] , Tissue Culture See Below For Report Tissue Culture Tissue Culture No growth after 18-2 4 hours. Tissue Culture Tissue Culture Tissue Culture Tissue Culture No growth in 36 - 48 hours. Tissue Culture Performing Lab: see note LC - [facility] LB Tissue Culture (Not yet [...] by provider) Interpretation: Performing Lab: Notes/Report: [facility] , Prothrombin Time 10.7 9.0-11.6 sec INR 1.01 DESIRED INR: 2.0-3.0 CONDITIONS NOT LISTED BELOW 2.5-3.5 FOR PROSTHETIC HEART VALVE REPLACEMENT 2.5-3.5 RECURRENT THROMBOSIS Performing Lab: see note ML - [facility] LB PTT (Not yet reviewed by pro vider) Interpretation: Performing Lab: Notes/Report: [facility] , Partial Thromboplastin Time 25.3 22.3-36.2 sec Performing Lab: see note - [facility] LB CBC AUTO DIFF (Not yet revie wed by provider) Interpretation: Performing Lab: Notes/Report: [facility] , White Blood Count 6.3 4.0-11.0 10 [...] 0.00-0.03 10 3/uL Performing Lab: see note - [facility] LB Erythrocyte Sedimentation Ra te (Not yet reviewed by provider) Interpretation: Performing Lab: Notes/Report: [facility] , Erythrocyte Sedimentation Rate 28 <=30 mm/hr Performing Lab: see note - [facility] LB CBC AUTO DIFF (Not yet revie wed by provider) Interpretation: Performing Lab: Notes/Report: [facility] , White Blood Count 7.2 4.0-11.0 10 [...] 0.00-0.03 10 3/uL Performing Lab: see note - [facility] LB VC SEGMENTAL PRESSURES (Not yet reviewed by provider) Interpretation: Performing Lab: Notes/Report: Source Facility: [place] [address] [place] [address] Vein Report Signed Patient: ZOILA RAMOS MR#: [id number] : 1970 Acct:[id number] Age/Sex: 54 / F ADM Date: 05/09/24 Loc: VC Attending Dr: Jordyn Bruce D.P.M. Ordering Physician: Jordyn Bruce D.P.M. Date of Service: 05/09/24 Procedure(s): VC SEGMENTAL PRESSURES Accession Number(s): [id number] cc: Shayy Dela Cruz M.D.; Jordyn Bruce D.P.M. [place] [address] Patient Name: ZOILA RAMOS MRN: [id number] date: 1970 Sex: F Assigned Patient Location: Current Patient Location: VC Accession/Order Number: [id number] Exam Date: 05/09/2024 13:04 Report Date: 05/09/2024 14:53 At the request of: JORDYN BRUCE Procedure: VC SEGMENTAL PRESSURES EXAM: VC SEGMENTAL PRESSURES HISTORY: R09.89 COMPARISON: None. FINDINGS: Segmental pressures presented as follows (right, left) in mmHg. Brachial: 132, N/A Lower thigh: 178, 201 Calf: 179, 174 DPA: 248, 234 ASSISTANT SHIFT SUPERVISOR: 259, 113 1st Toe: 86, 103 HIEU: [...] Javed M.D. Signed By: 05/09/24 1455 DD/ 145 TD/TT: Animal Trainer Supervisor: [place] [address] Vein Report Signed Patient: JULIA RAMOS MR#: [id number] : 1970 Acct:[id number] Age/Sex: 54 / F ADM Date: 05/09/24 Loc: VC Attending Dr: Jordyn Bruce D.P.M. Ordering Physician: Jordyn Bruce D.P.M. Date of Service: 05/09/24 Procedure(s): VC SEG MENTAL PRESSURES Accession Number(s): [id number] cc: Shayy Dela Cruz; Jordyn Bruce D.P.M. [place] [address] Patient Name: ZOILA RAMOS MRN: [id number] date: 1970 Sex: F Assigned Patient Loc ation: VC Current Patient Loca tion: VC Accession/Order Numb er: [id number] Exam Date: 05/09/2024 13:04 Report Date: 05/09/2024 14:53 At the request of: JORDYN BRUCE Procedure: VC SEGMEN OZZY PRESSURES EXAM: VC SEGMENTAL PRESSURES HISTORY: R09.89 COMPARISON: None. FINDINGS: Segmental pressures presented as follows (right, left) in mmHg. Brachial: 132, N/A Lower thigh: 178, 201 Calf: 179, 174 DPA: 248, 234 ASSISTANT SHIFT SUPERVISOR: 259, 113 1st Toe: 86, 103 HIEU: [...] By: Matt Javed M.D. Signed By: 05/09/24 145 DD/ 52 TD/TT: Animal Trainer Supervisor: JULIA foot LT min 3V (Not yet r eviewed by provider) Interpretation: Performing Lab: Notes/Report: Source Facility: [place] [address] [place] [address] XRay Report Signed Patient: ZOILA RAMOS MR#: [id number] : 1970 Acct:[id number] Age/Sex: 54 / F ADM Date: 04/27/24 Loc: EC Attending Dr: Jordyn Bruce D.P.M. Ordering Physician: Jordyn Bruce D.P.M. Date of Service: 04/27/24 Procedure(s): XR foot LT min 3V Accession Number(s): [id number] cc: Shayy Dela Cruz M.D.; Jordyn Bruce D.P.M. [place] [address] Patient Name: ZOILA RAMOS MRN: [id number] date: 1970 Sex: F Assigned Patient Location: Current Patient Location: Accession/Order Number: [id number] Exam Date: 04/27/2024 09:20 Report Date: 04/27/2024 [...] By: Narinder Lan M.D. Signed By: 04/27/24 7060 DD/ 1347 TD/TT: Animal Trainer Supervisor: [place] [address] XRay Report Signed Patient: JULIA RAMOS MR#: [id number] : 1970 Acct:[id number] Age/Sex: 54 / F ADM Date: 04/27/24 Loc: EC Attending Dr: Jordyn Bruce D.P.M. Ordering Physician: Jordyn Bruce D.P.M. Date of Service: 04/27/24 Procedure(s): XR yanet t LT min 3V Accession Number(s): [id number] cc: Shayy Dela Cruz; Jordyn Bruce D.P.M. [place] [address] Patient Name: ZOILA RAMOS MRN: [id number] date: 1970 Sex: F Assigned Patient Loc ation: EC Current Patient Loca tion: EC Accession/Order Numb er: [id number] Exam Date: 09:20 Report Date: 04/27/2024 13:47 At the request of: JORDYN BRUCE Procedure: XR foot L T min 3V PROCEDURE: XR foot L T min 3V HISTORY: LEFT FOOT PAIN COMPARISON: XR foot left 04/19/2024 FINDINGS: BONES:Acute to subac absentee-shawnee transverse fracture through distal neck of second [...] Signed By: 04/27/24 1350 DD/ 1347 TD/TT: Animal Trainer Supervisor: MR collins soares (Not yet reviewed by provider) Interpretation: Performing Lab: Notes/Report: Source Facility: [facility]-[address] [place] [address] [place] [address] Magnetic Resonance Report Signed Patient: ZOILA RAMOS MR#: [id number] : 1970 Acct:[id number] Age/Sex: 54 / F ADM Date: 03/21/24 Loc: MRI Attending Dr: Jordyn Bruce D.P.M. Ordering Physician: Jordyn Bruce D.P.M. Date of Service: 03/21/24 Procedure(s): MR ankle RT wo con Accession Number(s): [id number] cc: Shayy Dela Cruz M.D.; Jordyn Bruce D.P.M. [place] [address] Patient Name: ZOILA RAMOS MRN: [id number] date: 1970 Sex: F Assigned Patient Location: MRI Current Patient Location: Accession/Order Number: [id number] Exam Date: 03/21/2024 09:55 Report Date: 03/24/2024 [...] Shawn Marques M.D. Signed By: 03/24/2456 DD/ TD/TT: Animal Trainer Supervisor: [place] [address] Magnetic Resonance Report Signed Patient: JULIA RAMOS MR#: [id number] : 1970 Acct:[id number] Age/Sex: 54 / F ADM Date: 03/21/24 Loc: MRI Attending Dr: Jordyn Bruce D.P.M. Ordering Physician: Jordyn Bruce D.P.M. Date of Service: 03/21/24 Procedure(s): MR ank le RT wo con Accession Number(s): [id number] cc: Shayy Dela Cruz; Jordyn Bruce D.P.M. [place] [address] Patient Name: ZOILA RAMOS MRN: [id number] date: 1970 Sex: F Assigned Patient Loc ation: MRI Current Patient Location: Accession/Order Tristan er: [id number] Exam Date: 09:55 Report Date: 03/24/2024 06:53 [...] Shawn Marques M.D. Signed By: 03/24/2456 DD/ TD/TT: Animal Trainer Supervisor: Reason For Referral Reason evaluation and treat ment -- see attached order Diagnosis 1 Strain of right Achi lles tendon, initial encounter (S86.011A) Referral Organization [facility] (PODIAT[facility]) Referring Provider First Name Jordyn Referring Provider Last Name [facility] Referring Provider Speciality Podiatry Referred Provider [facility], Physical Therap y Referred Provider Specialty Physical Med icine and Rehabilitation Referral Priority Routine Reason Right Achilles strai n Right Achilles partial tear Diagnosis 1 Strain of right Achi lles tendon, subsequent encounter (S86.011D) Referral Organization [facility] ([facility]) Referring Provider First Name Jordyn Referring Provider Last Name Janis Referring Provider Speciality Podiatry Referred Provider Specialty Physical The rapist Referral Priority Routine Reason Right Achilles tear Diagnosis 1 Type 2 diabetes holli itus with diabetic polyneuropathy (E11.42) Diagnosis 2 Strain of right Achi lles tendon, subsequent encounter (S86.011D) Referral Organization [facility] (PODIATRY) Referring Provider First Name Jordyn Referring Provider Last Name [facility] Referring Provider [facility] Referred Provider Specialty Physical The rapist Referral Priority Routine Medications Medication SIG (Take, Route, Frequency, Duration) Notes Start Date End Date Status Dexcom G7 Information Support Project Manager - USE 4 TIMES A DAY A [...] Problem Status W/U Status Risk Notes Problem [id number] Type 2 diabetes mellitus with diabetic polyneuropathy (E11.42) Active confirmed Problem Foot ulcer due to type 2 diabetes mellitus (7650589376916) Type 2 diabetes mellitus with foot ulcer (E11.621) Active confirmed Problem [id number] Other acute osteomyelitis, left ankle and foot (M86.172) Active confirmed Problem Ulcer of left foot (disorder) (584837313) Chronic ulcer of left foot limited to [...] Encounters Encounter Location Date Provider Diagnosis [facility] (PODIATRY) [address] [place] [address] [place] [address] 10/04/2023 Jordyn Bruce Strain of right Achilles tendon, initial encounter S86.011A [facility] ([facility]) [address] [place] [address] [place] [address] 11/15/2023 Peter Highlander Strain of right Achilles tendon, subsequent encounter S86.011D [facility] ([facility]) [address] [place] [address] [place] [address] 01/24/2024 Peter Highlkeanu Strain of right Achilles tendon, initial encounter S86.011A and Strain of right Achilles tendon, subsequent encounter S86.011D [facility] ([facility]) [address] [place] [address] [place] [address] 03/07/2024 Peter Janis Strain of right Achilles tendon, initial encounter S86.011A ; Type 2 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 and Strain of right Achilles tendon, subsequent encounter S86.011D [facility] ([facility]) [address] [place] [address] [place] [address] 04/04/2024 Peter Janis Strain of right Achilles tendon, initial encounter S86.011A and Type 2 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 [facility] ([facility]) [address] [place] [address] [place] [address] 05/16/2024 Jordyn Bruce Other acute osteomyelitis, left ankle and foot M86.172 [facility] ([facility]) [address] [place] [address] [place] [address] 04/27/2024 Jordyn Bruce Other acute osteomyelitis, left ankle and foot M86.172 ; Type 2 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 ; Left foot pain M79.672 and Strain of right Achilles tendon, initial encounter S86.011A [facility] ([facility]) [address] [place] [address] [place] [address] 10/28/2023 Jordyn Bruce [facility] ([facility]) [address] [place] [address] [place] [address] 03/19/2024 Jordyn Brcue [facility] ([facility]) [address] [place] [address] [place] [address] 04/20/2024 Jordyn Bruce [facility] ([facility]) [address] [place] [address] 04/30/2024 Jordyn Bruce [facility] ([facility]) [address] [place] [address] 05/08/2024 Jordyn Bruce [facility] ([facility]) [address] [place] [address] 06/18/2024 [facility] Other acute osteomyelitis, left ankle and foot M86.172 [facility] ([facility]) [address] [place] [address] [place] [address] 06/18/2024 Jordyn [facility] Other acute osteomyelitis, left ankle and foot M86.172 [facility] ([facility]) [address] [place] [address] [place] [address] 06/18/2024 Jordyn Bruce [facility] ([facility]) [address] [place] [address] 07/03/2024 Fabián Siddharth [facility] ([facility]) [address] [place] [address] 07/05/2024 Jordyn Bruce Assessments Encounter Date Diagnosis (ICD Code) Assessment [...] tendon, subsequent encounter (ICD-10 - S86.011D) 03/07/2024 Type 2 diabetes mellitus with diabetic polyneuropathy (ICD-10 - E11.42) Last hemoglobin A1c was reportedly 9.9 03/07/2024 Strain of right Achilles tendon, initial [...] in her boot today. She was prescribed [place] but stated that it made her extremely [...] will follow-up after the MRI is obtained 04/04/2024 Type 2 diabetes mellitus with diabetic polyneuropathy (ICD-10 - E11.42) 04/04/2024 Strain of right Achilles tendon, initial [...] in 4 weeks call sooner if needed 05/16/2024 Other acute osteomyelitis, left ankle and [...] weeks. No new x-rays are needed 04/27/2024 Type 2 diabetes mellitus with diabetic polyneuropathy (ICD-10 - E11.42) 04/27/2024 Other acute osteomyelitis, left ankle and [...] her laboratory work completed for my review. 06/18/2024 Other acute osteomyelitis, left ankle and [...] MEDIBLUE DUAL ADV PRIMARY MEDICARE [address] [place] [address] [id number] [facility] 0 Zoila Ramos Self - patient is the insured MEDICAID [place] 2ND INS [address] OFFICE OF [place], [place] [id number] Zoila Ramos Self - patient is the insured Medical (General) History Medical History History ICD Code diabetes arthritis cardiovascular disease obesity Surgical History Surgery Date(Month/Year) right shoulder surgery cholecystectomy appendectomy
--- OUTSIDE RECORDS SUMMARY | 2024-09-30 21:17 | XMS_ITS | Clinical Summary ---
Author Organization [facility] Address [address] [place] [address] Care Team Providers Care Inspecting Machine Adjuster Name Role Phone Unavailable Primary Care Provider [...]
--- OUTSIDE RECORDS SUMMARY | 2024-09-30 21:17 | XMS_ITS | Clinical Summary ---
Author Organization [facility] Address [address] [place] [address] Care Team Providers Care Senior Accounting Clerk Name Role Phone Shayy Ly MD Primary Care Provider [phone] Allergies Active Allergy Reactions Criticality Noted Date [...] (Lopressor) 25 mg tabletIndications:Yordan nary arteriosclerosis in [place] artery,Essential hypertension Take 1 tablet (25 mg) by mouth in the morning and at bedtime. 180 tablet 3 05/19/2022 Active Additional Information Patient not taking.Reported on 06/19/2024 atorvastatin (Lipitor) 40 mg tabletIndications:Athe rosclerosis of [place] coronary artery of [place] heart without angina pectoris,Mixed hyperlipidemia Take 1 [...] B/P log Sinusitis 03/24/2022 Coronary arteriosclerosis in [place] artery 06/30 Assessment & Plan (05/19/2022 10:43 [...] age to complete this topic Care Teams Senior Accounting Clerk Relationship Specialty Start Date End Date Shayy Ly MD [address] [facility] PCP - General 05/19/22
--- OUTSIDE RECORDS SUMMARY | 2024-09-30 21:17 | XMS_ITS | Referral Summary ---
Author Organization [facility] Address [address] [place] [address] Care Team Providers Care Calf Skinner Name Role Phone Shayy Ly MD Primary Care Provider [phone] Allergies Active Allergy Reactions Criticality Noted Date [...] (Lopressor) 25 mg tabletIndications:Yordan nary arteriosclerosis in [place] artery,Essential hypertension Take 1 tablet (25 mg) by mouth in the morning and at bedtime. 180 tablet 3 05/19/2022 Active Additional Information Patient not taking.Reported on 06/19/2024 atorvastatin (Lipitor) 40 mg tabletIndications:Athe rosclerosis of [place] coronary artery of [place] heart without angina pectoris,Mixed hyperlipidemia Take 1 [...] B/P log Sinusitis 03/24/2022 Coronary arteriosclerosis in [place] artery 06/30 Assessment & Plan (05/19/2022 10:43 [...] of Treatment Not on file Care Teams Calf Skinner Relationship Specialty Start Date End Date [facility]ay[facility] Ly [facility] [address] [facility] 05/19/22
--- OUTSIDE RECORDS SUMMARY | 2024-09-30 21:18 | XMS_ITS | Patient Health Record ---
Author Organization [facility] Address [address] [place] [address] Care Team Providers Care Coil Tester Name Role Phone Shayy Ly M.D. Primary Care Provider Unavail able Narinder Alvarez Unavailable [phone] Allergies Allergen (clinical drug ingredient) Drug/Non Drug [...] Problem Status W/U Status Risk Notes Problem [id number] Other fracture of lower end of right ulna, subsequent encounter for closed fracture with routine healing (S52.691D) Active confirmed Vital Signs Height 5'2 in 10/10/2023 Weight 211 lbs 10/10/2023 BMI 38.59 10/10/2023 Encounters Encounter [facility] [address] [place] [address] [place] [address] 10/10/2023 Narinder Alvarez Other fracture of lower [...] Order Date [facility]- WRIST 3 VIEW RIGHT [id number] 05/16/2023 [facility]- WRIST 3 VIEW RIGHT [id number] 08/29/2023 [facility]- PT/OT EVAL AND TREAT 3X/WEEK FOR 6 WEEKS 08/29/2023 Insurance Providers Payer Name Payer Address Payer Phone Subscriber Number Group Number Insured Name Patient Relationship to Insured Coverage Start Date Coverage End Date Medicare [employer] [address] [place] [address] [id number] COLETTE DINH Self - patient is the insured [facility] [address] [place] [address] [id number] COLETTE DINH Self - patient is the insured Medical (General) History Medical History History ICD Code Asthma/COPD Heart Attack Diabetes High Blood Pressure Latex Allergy Drug Allergies
--- OUTSIDE RECORDS SUMMARY | 2024-09-30 21:18 | XMS_ITS | CCD ---
Author Organization [facility] Care Team Providers Care Kaiako Kura Tuarua Name Role Phone PHYSICIAN, DEFAULT Unavailable Unavailable [...] Shayy Dela Cruz MD Primary Care Provider [phone] Jordyn Bruce DPM Attending Provider Shayy Dela Cruz Primary Care Unavailable Jordyn Bruce Admitting Unavailable Jordyn Bruce Attending Unavailable Cathie Vargas Admitting Unavailable Cathie Vargas Attending Unavailable Allergies Allergy Classification Reported Allergen(s) Allergy Type Date of Onset Reaction(s) Facility (1 source) codeine Drug Allergy 9 [facility] Repository (20 sources) Latex; Translations: [LATEX] Drug allergy (disorder) 9 sores on skin [facility] Repository (20 sources) Codeine; Translations: [CODEINE] Drug Allergy 0 nausea [facility] (19 sources) Latex Drug allergy 5 sores on skin [employer] Other (1 source) Codeine Drug Allergy The [facility] Repository (11 sources) cat dander Allergy to substance 4 Sneezing, Itching [facility] (11 sources) dog dander Allergy to substance 4 Sneezing, Itching [facility] (11 sources) ozempic Propensity to adverse reactions 4 Vomiting [facility] (3 sources) Insulin Lispro; Translations: [INSULIN LISPRO] Drug All[facility] tomato allergenic extract; Translations: [TOMATO] Drug Allergy 5 [facility] Medications Current Medications Medication Drug Class(es) Dates Sig (Normalized) Sig (Original) acetaminophen 325 mg / HYDROcodone bitartrate 5 mg oral tablet (1 source) Opioid Agonist Start: 08-23-2024 take 1 tablet by mouth every six hours as needed Hydrocodone-Aceta minophen 5-325 mg tablet Active 1 TAB PO Every 6 hours as needed August 23, 2024 12:00am Albuterol Sulfate 108 (90 Base) MCG/ACT (6 [...] 2023 1:34pm take 1 tablet by bin every twenty-four hours Aspirin Adult Low Dose [...] 2024 5:10pm Blood-Glucose Meter,Continuo us (Dexcom G7 Municipal Maintenance Worker) misc (9 sources) Start: 12-13-2023 Blood-Glucose Meter,Continuous (Dexcom G7 Municipal Maintenance Worker) misc Active 0 .Route December 12, 2023 11:00pm As directed Start: 12-13-2023 Blood-Glucose Meter,Continuous (Dexcom G7 Municipal Maintenance Worker) misc Active 0 .Route December 13, 2023 12:00am As directed Start: 12-13-2023 Blood-Glucose Meter,Continuous (Dexcom G7 Municipal Maintenance Worker) misc Active 0 .ROUTE December 13, 2023 12:00am As directed Blood-Glucose Sensor (Dexcom G7 Sensor) device (11 sources) Start: 07-16-2024 Blood-Glucose Sensor (Dexcom G7 [...] Orally Once a day Active Dexcom G7 Municipal Maintenance Worker - (4 sources) Start: 06-03-19 24 Dexcom G7 Municipal Maintenance Worker - as directed as directed 4 x daily for 365 days E 11.65, Z 79.4 Jun, Active Dexcom G7 Sensor - (4 sources) Start: 06-03-19 24 Dexcom G7 Sensor - as directed in vitro every 10 days for 90 days E 11.65, Z79.4 Jun, Active esomeprazole 40 mg delayed release oral capsule (20 sources) Proton Pump Inhibitor Start: 03-09-20 24 take 1 capsule by mouth once daily Esomeprazole Magnesium 40 mg capsule,delayed release(DR/EC) Active 0 .ROUTE .COMPLEX March 09, 2024 10:43am TAKE ONE CAPSULE BY MOUTH DAILY Start: 02-06-2024 take 1 capsule by mo [facility] once daily Esomeprazole Magnesium Active 0 [...] Qty: 36 Gram; Provider: Jose De Jesus Lucsa ( ) take 2 puff(s) by in [...] mcg/actuation HFA aerosol inhaler (20 sources) Start: 08-13-2024 take 1 puff(s) by inhalation twice daily Fluticasone Propionate 110 mcg/actuation HFA aerosol inhaler Active 2 PUFF INHALATION Twice daily August 13, 2024 2:43pm Start: 06-18-2024 End: 08-13-2024 take 1 puff(s) by inhalation twice daily Fluticasone Propionate 110 mcg/actuation HFA aerosol inhaler Discontinued 2 PUFF INHALATION Twice daily June 18, 2024 4:16pm August 13, 2024 2:43pm Start: 06-18-2024 take 1 puff(s) by in halation twice [...] Jesus Lucas ( ) FreeStyle Amrik 3 Pitkin - (3 sources) Start: 06-06-2023 FreeStyle Amrik 3 Pitkin - as directed invitro 4 times daily for 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 Jun, Active FreeStyle Amrik 3 Sensor - (3 sources) Start: 06-06-2023 FreeStyle Amrik 3 Sensor - as directed invitro change every 14 days for 84 days Dx E11.65 Jun, Active hydroCHLOROthiazide 12.5 mg oral capsule (7 sources) Thiazide Diuretic take 1 capsule by mouth every twenty-fou r hours hydroCHLOROthiazide 12.5 MG 1 capsule in the morning Orally Once a day Active ibuprofen 600 mg oral tablet (1 source) Nonsteroidal Anti-inflammator y Drug Start: 08-23-2024 take 1 tablet by mouth every eight hours as needed for pain Ibuprofen 600 mg tablet Active 600 MG PO Every 8 hours as needed for pain 28 02August 23, 2024 12:00am 3 ml insulin glargine 300 unt/ml pen [...] Solostar) 300 unit/mL (3 mL) insulin pen (16 sources) Start: 08-07-2024 Insulin Glargi ne U-300 [...] pm. Active take 1 tablet by bin every twenty-four hours metFORMIN HCl 1000 mg [...] Drug Class(es) Dates Sig (Normalized) Sig (Original) [id number] 200 actuat albuterol 0.09 mg/actuat metered dose [...] Jun, Not-Taking/PRN Blood-Glucose Meter,Continuous (Freestyle Amrik 3 Pitkin) misc (16 sources) Start: 07-28-2023 End: 12-13-2023 Blood-Glucose Meter,Continuous (Freestyle Amrik 3 Pitkin) misc Discontinued EACH .ROUTE .MEDSUPPLY July 27, 2023 11:00pm December 13, 2023 12:09pm As directed Start: 07-28-2023 End: 12-13-2023 Blood-Glucose Meter,Continuo us (Freestyle Amrik 3 Pitkin) misc Discontinued EACH .R[facility]TE [facility] July 28, 2023 12:00am December 13, 2023 1:09pm As directed Start: 07-28-2023 Blood-Glucose Meter,Continuous (Freestyle Amrik 3 Pitkin) misc [facility] July 28, 2023 12:00am As directed Blood-Glucose Sensor (Freest yle Amrik 3 Sensor) device (16 sources) Start: 07-28-2023 End: 12-13-2023 Blood-Glucose Sensor (Freest yle Amrik 3 Sensor) device Discontinued EACH .[facility]OUTE [facility] July 27, 2023 11:00pm December 13, 2023 12:09pm As directed Start: 07-28-2023 End: 12-13-2023 Blood-Glucose Sensor (Freest yle Amrik 3 Sensor) device Discontinued [facility] July 28, 2023 12:00am December 13, 2023 1:09pm As directed Start: 07-28-2023 Blood-Glucose Sensor (Freestyle Amrik 3 Sensor) device Active EACH .ROUTE [facility] July 28, 2023 12:00am As directed Esomeprazole Magnesium 40 mg capsule,delayed release(DR/EC) (5 sources) Start: 02-06-2024 End: 03-09-2024 take 1 [...] Insulin) 100 unit/mL (3 mL) insulin pen (17 sources) Start: 07-12-2023 End: 07-19-2023 inject 1 [...] UNIT SUBCUT Daily February 23, 2024 1:21pm May 30, 2024 12:00pm Start: 02-23-2024 End: [...] ( ) meloxicam 15 mg oral tablet (12 sources) Nonsteroidal Anti-inflammatory Drug Start: 09-29-2023 End: 12-05-2023 take 1 tablet by mouth once daily Meloxicam 15 mg tablet Discontinued 15 MG PO Daily September 29, 2023 12:00am December 05, 2023 11:28am Semaglutide (15 sources) Start: 07-28-2023 End: 08-19-2023 Semaglutide (Ozempic) [...] angina pectoris; 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] Onset: 07-12-2022 [...] Onset: 11-09-2021 Chronic Other aftercare (20 sources) candle wicker (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 of insulin; Translations: [Long-term (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 of insulin] Onset: 04-08-2022 Episodic Other aftercare (20 sources) Long-term current use of insulin; Translations: [candle wicker (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 of insulin] 07-28-2023 Episodic Other [...] injuries and conditions due to external causes (16 sources) Fracture of bone; Translations: [Other injury of unspecified body region, initial encounter] 07-28-2023 Episodic Other non-traumatic joint disorders (5 sources) Shoulder pain; Translations: [Pain in left shoulder] Episodic Other non-traumatic joint disorders (13 sources) Pain in left shoulder; Translations: [Left shoulder pain] Episodic Other non-traumatic joint disorders (12 sources) Ankle pain; Translations: [Pain in right [...] Chronic Other nutritional; endocrine; and metabolic disorders (17 sources) Body mass index (BMI) 37.0-37.9, adult; Translations: [Body Mass Index 37.0-37.9, adult] Chronic Other nutritional; endocrine; and metabolic disorders (16 sources) Body mass index 30+ - obesity; [...] Onset: 04-08-2022 Episodic Other aftercare (1 source) longterm (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; Translations: [PATIENT EDUCATOR CURRENT USE OF ASPIRIN] Onset: 04-08-2022 Episodic Other aftercare (1 source) candle wicker (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 of oral hypoglycemic drugs; Translations: [PATIENT EDUCATOR USE ORAL HYPOGLYCEMIC DX] Onset: 04-08-2022 Episodic Other aftercare (1 source) Other geek squad manager (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 therapy; Translations: [OTH SENIOR LIVING CURRENT DRUG THERAPY] Onset: 11-09-2021 Episodic Other [...] Facility HbA1c HPLC (Bld) [Mass fract ion]on 08-07-2024 HbA1c (Bld) [Mass fraction] Hemoglobin A1c/Hemoglobin.total in Blood by HPLC [facility] No Panel Informationon 08-07 Bedside Glucose 99 [facility] Pathology study report docum entOrdered By: Tejal Church on 07-10-2024 Pathology study [facility] Other Aren 07-05-2024 L Specimen: [id number] Received: 07/06/24 Status: SAM Cook Num: [id number] Spec Type: Surgical Subm Dr: Jordyn Bruce,DPM, MS Tissues: A DIGIT AMPUTATION (2ND LEFT TOE PARTIAL) B DIGIT AMPUTATION (3RD LEFT TOE) Procedures: HE/5, Gross/Micro L4/2, Decalcification/2 Age/ Patient Sex Location Account Attending Physician Zolia Ramos 54/F LABELL [id number] Jordyn Bruce DPM, MS SPEC NUM: [id number] RECD: 07/06/24 STATUS: SAM COOK NUM: [id number] JESSICA: 07/05/[address] [facility] [address]: Jordyn Bruce DPM, MS ENTERED: 07/06/[address] [facility] [address]: Robert,Lab SPEC TYPE: Surgical DEPT: AVERY GARCIA ORDERED: [...] ulcer, left second and third toes Specimen: [id number] Received: 07/06/24 Status: SAM Cook Num: [id number] Spec Type: Surgical Subm Dr: Jordyn Bruce,DPM, MS Tissues: A DIGIT AMPUTATION (2ND LEFT TOE PARTIAL) B DIGIT AMPUTATION (3RD LEFT TOE) Procedures: HE/5, Gross/Micro L4/2, Decalcification/2 Patient: Zoila Ramos [id number] (Continued) Specimen: [id number] Received: 07/06/24 (Continued) Signed (signature on file) Tejal Church MD 07/10/24 [id number] Specimen: [id number] Received: 07/06/24 Status: SAM Cook Num: [id number] Spec Type: Surgical Subm Dr: Jordyn Bruce,DPM, MS Tissues: A DIGIT AMPUTATION (2ND LEFT TOE PARTIAL) B DIGIT AMPUTATION (3RD LEFT TOE) Procedures: HE/5, Gross/Micro L4/2, Decalcification/2 Patient: Richard,Zoila Sidhu [id number] (Continued) Specimen: [id number] Received: 07/06/24 (Continued) Gross Description Part A [...] x 1 x 0.4 cm. Cassettes: A1 Insurance Billing Clerk section of the wound with underlying central second phalangeal bone, decalcified A2 Tangential sections of proximal skin margin A3 Detached skin ( 3, ss, [id number] A)JG Part B is received in formalin labeled [...] Tangential sections of proximal skin margin with plastic products sales representative sec (more content not included)... Normal [facility] Orders Onlyon 06-25-2024 Orders Only [id number] Zoila Ramos 1970 F Date Provider Department Center 06/25/2024 [id number], JESSICA CARD [facility] No family history on file Normal [facility] Activated partial thrombopla stin time (aPTT) in platelet poor plasma by coagulation aon 06-19-2024 aPTT Coag (PPP) [Time] Activated partial thromboplastin time (aPTT) in platelet poor plasma by coagulation a 22.3-36.2 [facility] Basophils Auto (Bld) [#/Vol] on 06-19-2024 Basophils (Bld) [#/Vol] Automated basophil count 0.0-0.1 [facility] Basophils/100 WBC Auto (Bld) on 06-19-2024 Basophils/100 WBC (Bld) Automated basophil % 0.2-2.0 [facility] Eosinophils/100 WBC Auto (Bl d)on 06-19-2024 Eosinophils/100 WBC (Bld) Automated eosinophil % 0.9-7.0 [facility] Erythrocyte distribution wid th Auto (RBC) [Ratio]on 06-19-2024 Erythrocyte distribution width (RBC) [Ratio] Erythrocyte distribution width [Ratio] by Automated count 11.0-15.0 [facility] Estimated glomerular filtrat ion rate (GFR) non- Americanon 06-19-2024 GFR/1.73 sq M.predicted among non-blacks MDRD (S/P/Bld) [Vol rate/Area] Estimated glomerular filtration rate (GFR) non- >=60 mL/min/1.73m 2 [facility] Globulin Calc (S) [Mass/Vol] on 06-19-2024 Globulin (S) [Mass/Vol] Serum globulin measurement by calculation (mass/volume) [facility] Hematocrit Auto (Bld) [Volum e fraction]on 06-19-2024 Hematocrit (Bld) [Volume fraction] Hematocrit [Volume Fraction] of Blood by Automated count 36.0-48.0 [facility] Hemoglobin [Mass/volume] in Bloodon 06-19-2024 Hemoglobin (Bld) [Mass/Vol] Hemoglobin [Mass/volume] in Blood 12.0-16.0 [facility] INR in Platelet poor plasma by Coagulation assayon 06-19-2024 INR Coag (PPP) [Relative time] INR in Platelet poor plasma by Coagulation assay [facility] Comment on above: DESIRED INR:2.0-3.0 CONDITIONS NOT LISTED BELOW2.5-3.5 FOR PROSTHETIC HEART VALVE REPLACEMENT2.5-3.5 RECURRENT THROMBOSIS Laboratory - Chemistry and C hemistry - challengeon 06-19-2024 Albumin [Mass/Vol] 3.3 g/dL Low 3.4-5.0 [facility] ALP [Catalytic activity/Vol] 110 U/L 46-116 [facility] ALT [Catalytic activity/Vol] 44 U/L 14-59 [facility] AST [Catalytic activity/Vol] 23 U/L 15-37 [facility] Bilirubin [Mass/Vol] 0.3 mg/dL 0.2-1.0 [facility] Calcium [Mass/Vol] 9.3 mg/dL 8.5-10.1 [facility] Chloride [Moles/Vol] 102 mmol/L 98-107 [facility] CO2 [Moles/Vol] 27.9 mmol/L 21.0-32.0 [facility] Creatinine [Mass/Vol] 0.88 mg/dL 0.55-1.02 [facility] GFR/1.73 sq M.predicted MDRD (S/P/Bld) [Vol rate/Area] mL/min/{1.73_m2} >=60 mL/min/1.73m 2 [facility] Glucose [Mass/Vol] 175 mg/dL High 74-106 [facility] Lipase [Catalytic activity/Vol] 28.0 U/L 16.0-77.0 [facility] Potassium [Moles/Vol] 4.2 mmol/L 3.5-5.1 [facility] Protein [Mass/Vol] 7.6 g/dL 6.4-8.2 [facility] Sodium [Moles/Vol] 137 mmol/L 136-145 [facility] Urea nitrogen [Mass/Vol] 12.0 mg/dL 7.0-18.0 [facility] Urea nitrogen/Creatinine [Mass ratio] 13.6 mg/mg [facility] Laboratory - Hematology and Cell countson 06-19-2024 Immature granulocytes/100 WBC (Bld) 0.1 % 0.0-0.5 [facility] Leukocytes [#/volume] correc alma delia for nucleated erythrocytes in Blood by Automated counon 06-19-2024 WBC corrected for nucl RBC Auto (Bld) [#/Vol] Leukocytes [#/volume] corrected for nucleated erythrocytes in Blood by Automated coun 4.0-11.0 [facility] Lymphocytes Auto (Bld) [#/Vo l]on 06-19-2024 Lymphocytes (Bld) [#/Vol] Lymphocytes [#/volume] in Blood by Automated count 1.2-3.8 [facility] Lymphocytes/100 WBC Auto (Bl d)on 06-19-2024 Lymphocytes/100 WBC (Bld) Lymphocytes/100 leukocytes in Blood by Automated count 20.5-60.0 [facility] MCH Auto (RBC) [Entitic mass ]on 06-19-2024 MCH (RBC) [Entitic mass] MCH [Entitic mass] by Automated count 26.7-34.0 [facility] MCHC Auto (RBC) [Mass/Vol]on 06-19-2024 MCHC (RBC) [Mass/Vol] MCHC [Mass/volume] by Automated count 29.9-35.2 [facility] MCV Auto (RBC) [Entitic vol] on 06-19-2024 MCV (RBC) [Entitic vol] MCV [Entitic volume] by Automated count 81.0-99.0 [facility] Monocytes Auto (Bld) [#/Vol] on 06-19-2024 Monocytes (Bld) [#/Vol] Automated blood monocyte count 0.3-0.8 [facility] Monocytes/100 WBC Auto (Bld) on 06-19-2024 Monocytes/100 WBC (Bld) Automated monocyte % 1.7-12.0 [facility] Neutrophils Auto (Bld) [#/Vo l]on 06-19-2024 Neutrophils (Bld) [#/Vol] Neutrophils [#/volume] in Blood by Automated count 1.4-6.5 [facility] Neutrophils/100 WBC Auto (Bl d)on 06-19-2024 Neutrophils/100 WBC (Bld) Automated neutrophil % 43.0-75.0 [facility] No Panel Informationon 06-19 Eosinophils # (Auto) 0.2 10 3/uL 0.0-0.7 [facility] Immature Granulocyte # (Auto) 0.01 10 3/uL 0.00-0.03 [facility] Office Visiton 06-19-2024 Follow-up visit [id number] Zoila Ramos 1970 F Date Provider Department Center 06/19/2024 [facility] No family history on file Level of Service:57512 [place] OFFICE/OUTPATIENT ESTABLISHED MOD MDM 30 MIN Normal [facility] Platelet mean volume Auto (B ld) [Entitic vol]on 06-19-2024 Platelet mean volume (Bld) [Entitic vol] Platelet mean volume [Entitic volume] in Blood by Automated count 9.5-13.5 [facility] Platelets Auto (Bld) [#/Vol] on 06-19-2024 Platelets (Bld) [#/Vol] Platelets [#/volume] in Blood by Automated count 150-450 [facility] Prothrombin time (PT)on 06-02 PT Coag (PPP) [Time] Prothrombin time (PT) 9.0-11.6 [facility] RBC Auto (Bld) [#/Vol]on RBC (Bld) [#/Vol] Erythrocytes [#/volume] in Blood by Automated count 4.20-5.40 [facility] Serum or plasma albumin/glob ulin mass ratioon 06-19-2024 Albumin/Globulin [Mass ratio] Serum or plasma albumin/globulin mass ratio [facility] Serum or plasma anion gap de terminationon 06-19-2024 Anion gap [Moles/Vol] Serum or plasma anion gap determination [facility] Cholesterol in LDL Calc [Mas s/Vol]on 06-12-2024 Cholesterol in LDL [Mass/Vol] Cholesterol in LDL [Mass/volume] in Serum or Plasma by calculation [facility] Comment on above: <100 mg/dl [id number] 0-129 mg/dl NEAR OR ABOVE [id number] mg/dl BORDERLINE [id number] mg/dl HIGH>190 mg/dl VERY HIGH Cholesterol in VLDL Calc [Ma ss/Vol]on 06-12-2024 Cholesterol in VLDL [Mass/Vol] Cholesterol in VLDL [Mass/volume] in Serum or Plasma by calculation [facility] Estimated glomerular filtrat ion rate (GFR) non- Americanon 06-12-2024 GFR/1.73 sq M.predicted among non-blacks MDRD (S/P/Bld) [Vol rate/Area] Estimated glomerular filtration rate (GFR) non- >=60 mL/min/1.73m 2 [facility] Globulin Calc (S) [Mass/Vol] on 06-12-2024 Globulin (S) [Mass/Vol] Serum globulin measurement by calculation (mass/volume) [facility] Laboratory - Chemistry and C hemistry - challengeon 06-12-2024 Albumin [Mass/Vol] 3.1 g/dL Low 3.4-5.0 [facility] ALP [Catalytic activity/Vol] 118 U/L High 46-116 [facility] ALT [Catalytic activity/Vol] 36 U/L 14-59 [facility] AST [Catalytic activity/Vol] 18 U/L 15-37 [facility] Bilirubin [Mass/Vol] 0.3 mg/dL 0.2-1.0 [facility] Calcium [Mass/Vol] 9.1 mg/dL 8.5-10.1 [facility] Chloride [Moles/Vol] 102 mmol/L 98-107 [facility] Cholesterol [Mass/Vol] 124 mg/dL <=200 [facility] Cholesterol in HDL [Mass/Vol] 43 mg/dL 40-60 [facility] Comment on above: > or =60 mg/dl - LOW CARDIOVASCULAR RISK<40 mg/dl - HIGH CARDIOVASCULAR RISK CO2 [Moles/Vol] 28.4 mmol/L 21.0-32.0 [facility] Cobalamin (Vitamin B12) [Mass/Vol] 998 pg/mL 232-1245 [facility] Comment on above: Performed at: [employer] [address] [id number] Director: Gerald Jacobs PhD, Phone: [phone] Creatinine [Mass/Vol] 0.87 mg/dL 0.55-1.02 [facility] GFR/1.73 sq M.predicted MDRD (S/P/Bld) [Vol rate/Area] mL/min/{1.73_m2} >=60 mL/min/1.73m 2 [facility] Glucose [Mass/Vol] 197 mg/dL High 74-106 [facility] Potassium [Moles/Vol] 4.5 mmol/L 3.5-5.1 [facility] Protein [Mass/Vol] 7.3 g/dL 6.4-8.2 [facility] Sodium [Moles/Vol] 142 mmol/L 136-145 [facility] Triglyceride [Mass/Vol] 68 mg/dL <=150 [facility] Urea nitrogen [Mass/Vol] 11.0 mg/dL 7.0-18.0 [facility] Urea nitrogen/Creatinine [Mass ratio] 12.6 mg/mg [facility] No Panel Informationon 06-12 25-Hydroxy Vitamin D Total 44.6 ng/mL [facility] Comment on above: <20 ng/mL Vit D defi cient20-<30 ng/mL Vit D [id number] ng/mL Vit D sufficient>100 ng/mL Potential Toxicity Serum or plasma albumin/glob ulin mass ratioon 06-12-2024 Albumin/Globulin [Mass ratio] Serum or plasma albumin/globulin mass ratio [facility] Serum or plasma anion gap de terminationon 06-12-2024 Anion gap [Moles/Vol] Serum or plasma anion gap determination [facility] Serum or plasma total choles terol/high density lipoprotein (HDL) cholesterol mass jaun 06-12-2024 Cholesterol.total/Ch olesterol in HDL [Mass ratio] Serum or plasma total cholesterol/high density lipoprotein (HDL) cholesterol mass rat [facility] Comment on above: 3.3 - 4.4 LOW RISK4. 4 - 7.1 AVERAGE RISK7.1 - 11.0 MODERATE RISK>11.0 HIGH RISK Basophils Auto (Bld) [#/Vol] on 06-07-2024 Basophils (Bld) [#/Vol] Automated basophil count 0.0-0.1 [facility] Basophils/100 WBC Auto (Bld) on 06-07-2024 Basophils/100 WBC (Bld) Automated basophil % 0.2-2.0 [facility] Eosinophils/100 WBC Auto (Bl d)on 06-07-2024 Eosinophils/100 WBC (Bld) Automated eosinophil % 0.9-7.0 [facility] Erythrocyte distribution wid th Auto (RBC) [Ratio]on 06-07-2024 Erythrocyte distribution width (RBC) [Ratio] Erythrocyte distribution width [Ratio] by Automated count 11.0-15.0 [facility] Estimated glomerular filtrat ion rate (GFR) non- Americanon 06-07-2024 GFR/1.73 sq M.predicted among non-blacks MDRD (S/P/Bld) [Vol rate/Area] Estimated glomerular filtration rate (GFR) non- >=60 mL/min/1.73m 2 [facility] Globulin Calc (S) [Mass/Vol] on 06-07-2024 Globulin (S) [Mass/Vol] Serum globulin measurement by calculation (mass/volume) [facility] Hematocrit Auto (Bld) [Volum e fraction]on 06-07-2024 Hematocrit (Bld) [Volume fraction] Hematocrit [Volume Fraction] of Blood by Automated count 36.0-48.0 [facility] Hemoglobin [Mass/volume] in Bloodon 06-07-2024 Hemoglobin (Bld) [Mass/Vol] Hemoglobin [Mass/volume] in Blood 12.0-16.0 [facility] Laboratory - Chemistry and C hemistry - challengeon 06-07-2024 Lactate [Moles/Vol] 1.9 mmol/L 0.4-2.0 [facility] Albumin [Mass/Vol] 3.3 g/dL Low 3.4-5.0 [facility] ALP [Catalytic activity/Vol] 115 U/L 46-116 [facility] ALT [Catalytic activity/Vol] 39 U/L 14-59 [facility] AST [Catalytic activity/Vol] 16 U/L 15-37 [facility] Bilirubin [Mass/Vol] 0.2 mg/dL 0.2-1.0 [facility] Calcium [Mass/Vol] 9.4 mg/dL 8.5-10.1 [facility] Chloride [Moles/Vol] 104 mmol/L 98-107 [facility] CO2 [Moles/Vol] 27.1 mmol/L 21.0-32.0 [facility] Creatinine [Mass/Vol] 0.86 mg/dL 0.55-1.02 [facility] GFR/1.73 sq M.predicted MDRD (S/P/Bld) [Vol rate/Area] mL/min/{1.73_m2} >=60 mL/min/1.73m 2 [facility] Glucose [Mass/Vol] 157 mg/dL High 74-106 [facility] Potassium [Moles/Vol] 4.4 mmol/L 3.5-5.1 [facility] Protein [Mass/Vol] 7.3 g/dL 6.4-8.2 [facility] Sodium [Moles/Vol] 142 mmol/L 136-145 [facility] Urea nitrogen [Mass/Vol] 23.0 mg/dL High 7.0-18.0 [facility] Urea nitrogen/Creatinine [Mass ratio] 26.7 mg/mg [facility] Laboratory - Hematology and Cell countson 06-07-2024 ESR (Bld) [Velocity] 41 mm/h High <=30 [facility] Immature granulocytes/100 WBC (Bld) 0.2 % 0.0-0.5 [facility] Leukocytes [#/volume] correc alma delia for nucleated erythrocytes in Blood by Automated counon 06-07-2024 WBC corrected for nucl RBC Auto (Bld) [#/Vol] Leukocytes [#/volume] corrected for nucleated erythrocytes in Blood by Automated coun 4.0-11.0 [facility] Lymphocytes Auto (Bld) [#/Vo l]on 06-07-2024 Lymphocytes (Bld) [#/Vol] Lymphocytes [#/volume] in Blood by Automated count 1.2-3.8 [facility] Lymphocytes/100 WBC Auto (Bl d)on 06-07-2024 Lymphocytes/100 WBC (Bld) Lymphocytes/100 leukocytes in Blood by Automated count 20.5-60.0 [facility] MCH Auto (RBC) [Entitic mass ]on 06-07-2024 MCH (RBC) [Entitic mass] MCH [Entitic mass] by Automated count 26.7-34.0 [facility] MCHC Auto (RBC) [Mass/Vol]on 06-07-2024 MCHC (RBC) [Mass/Vol] MCHC [Mass/volume] by Automated count 29.9-35.2 [facility] MCV Auto (RBC) [Entitic vol] on 06-07-2024 MCV (RBC) [Entitic vol] MCV [Entitic volume] by Automated count 81.0-99.0 [facility] Monocytes Auto (Bld) [#/Vol] on 06-07-2024 Monocytes (Bld) [#/Vol] Automated blood monocyte count 0.3-0.8 [facility] Monocytes/100 WBC Auto (Bld) on 06-07-2024 Monocytes/100 WBC (Bld) Automated monocyte % 1.7-12.0 [facility] Neutrophils Auto (Bld) [#/Vo l]on 06-07-2024 Neutrophils (Bld) [#/Vol] Neutrophils [#/volume] in Blood by Automated count 1.4-6.5 [facility] Neutrophils/100 WBC Auto (Bl d)on 06-07-2024 Neutrophils/100 WBC (Bld) Automated neutrophil % 43.0-75.0 [facility] No Panel Informationon 06-07 C-Reactive Protein, Quantitative 1.46 mg/dL High <=0.50 [facility] Eosinophils # (Auto) 0.3 10 3/uL 0.0-0.7 [facility] Immature Granulocyte # (Auto) 0.02 10 3/uL 0.00-0.03 [facility] Platelet mean volume Auto (B ld) [Entitic vol]on 06-07-2024 Platelet mean volume (Bld) [Entitic vol] Platelet mean volume [Entitic volume] in Blood by Automated count 9.5-13.5 [facility] Platelets Auto (Bld) [#/Vol] on 06-07-2024 Platelets (Bld) [#/Vol] Platelets [#/volume] in Blood by Automated count 150-450 [facility] RBC Auto (Bld) [#/Vol]on RBC (Bld) [#/Vol] Erythrocytes [#/volume] in Blood by Automated count 4.20-5.40 [facility] Serum or plasma albumin/glob ulin mass ratioon 06-07-2024 Albumin/Globulin [Mass ratio] Serum or plasma albumin/globulin mass ratio [facility] Serum or plasma anion gap de terminationon 06-07-2024 Anion gap [Moles/Vol] Serum or plasma anion gap determination [facility] Basophils Auto (Bld) [#/Vol] on 06-01-2024 Basophils (Bld) [#/Vol] Automated basophil count 0.0-0.1 [facility] Basophils/100 WBC Auto (Bld) on 06-01-2024 Basophils/100 WBC (Bld) Automated basophil % 0.2-2.0 [facility] Eosinophils/100 WBC Auto (Bl d)on 06-01-2024 Eosinophils/100 WBC (Bld) Automated eosinophil % 0.9-7.0 [facility] Erythrocyte distribution wid th Auto (RBC) [Ratio]on 06-01-2024 Erythrocyte distribution width (RBC) [Ratio] Erythrocyte distribution width [Ratio] by Automated count 11.0-15.0 [facility] Estimated glomerular filtrat ion rate (GFR) non- Americanon 06-01-2024 GFR/1.73 sq M.predicted among non-blacks MDRD (S/P/Bld) [Vol rate/Area] Estimated glomerular filtration rate (GFR) non- Low >=60 mL/min/1.73m 2 [facility] Hematocrit Auto (Bld) [Volum e fraction]on 06-01-2024 Hematocrit (Bld) [Volume fraction] Hematocrit [Volume Fraction] of Blood by Automated count 36.0-48.0 [facility] Hemoglobin [Mass/volume] in Bloodon 06-01-2024 Hemoglobin (Bld) [Mass/Vol] Hemoglobin [Mass/volume] in Blood 12.0-16.0 [facility] Laboratory - Chemistry and C hemistry - challengeon 06-01-2024 Calcium [Mass/Vol] 9.0 mg/dL 8.5-10.1 [facility] Chloride [Moles/Vol] 105 mmol/L 98-107 [facility] CO2 [Moles/Vol] 29.8 mmol/L 21.0-32.0 [facility] Creatinine [Mass/Vol] 1.01 mg/dL 0.55-1.02 [facility] GFR/1.73 sq M.predicted MDRD (S/P/Bld) [Vol rate/Area] mL/min/{1.73_m2} >=60 mL/min/1.73m 2 [facility] Glucose [Mass/Vol] 171 mg/dL High 74-106 [facility] Potassium [Moles/Vol] 4.6 mmol/L 3.5-5.1 [facility] Sodium [Moles/Vol] 140 mmol/L 136-145 [facility] Urea nitrogen [Mass/Vol] 15.0 mg/dL 7.0-18.0 [facility] Urea nitrogen/Creatinine [Mass ratio] 14.9 mg/mg [facility] Laboratory - Hematology and Cell countson 06-01-2024 Immature granulocytes/100 WBC (Bld) 0.3 % 0.0-0.5 [facility] Leukocytes [#/volume] correc alma delia for nucleated erythrocytes in Blood by Automated counon 06-01-2024 WBC corrected for nucl RBC Auto (Bld) [#/Vol] Leukocytes [#/volume] corrected for nucleated erythrocytes in Blood by Automated coun 4.0-11.0 [facility] Lymphocytes Auto (Bld) [#/Vo l]on 06-01-2024 Lymphocytes (Bld) [#/Vol] Lymphocytes [#/volume] in Blood by Automated count 1.2-3.8 [facility] Lymphocytes/100 WBC Auto (Bl d)on 06-01-2024 Lymphocytes/100 WBC (Bld) Lymphocytes/100 leukocytes in Blood by Automated count 20.5-60.0 [facility] MCH Auto (RBC) [Entitic mass ]on 06-01-2024 MCH (RBC) [Entitic mass] MCH [Entitic mass] by Automated count 26.7-34.0 [facility] MCHC Auto (RBC) [Mass/Vol]on 06-01-2024 MCHC (RBC) [Mass/Vol] MCHC [Mass/volume] by Automated count 29.9-35.2 [facility] MCV Auto (RBC) [Entitic vol] on 06-01-2024 MCV (RBC) [Entitic vol] MCV [Entitic volume] by Automated count 81.0-99.0 [facility] Monocytes Auto (Bld) [#/Vol] on 06-01-2024 Monocytes (Bld) [#/Vol] Automated blood monocyte count 0.3-0.8 [facility] Monocytes/100 WBC Auto (Bld) on 06-01-2024 Monocytes/100 WBC (Bld) Automated monocyte % 1.7-12.0 [facility] Neutrophils Auto (Bld) [#/Vo l]on 06-01-2024 Neutrophils (Bld) [#/Vol] Neutrophils [#/volume] in Blood by Automated count 1.4-6.5 [facility] Neutrophils/100 WBC Auto (Bl d)on 06-01-2024 Neutrophils/100 WBC (Bld) Automated neutrophil % 43.0-75.0 [facility] No Panel Informationon 06-01 Eosinophils # (Auto) 0.2 10 3/uL 0.0-0.7 [facility] Immature Granulocyte # (Auto) 0.02 10 3/uL 0.00-0.03 [facility] Platelet mean volume Auto (B ld) [Entitic vol]on 06-01-2024 Platelet mean volume (Bld) [Entitic vol] Platelet mean volume [Entitic volume] in Blood by Automated count 9.5-13.5 [facility] Platelets Auto (Bld) [#/Vol] on 06-01-2024 Platelets (Bld) [#/Vol] Platelets [#/volume] in Blood by Automated count 150-450 [facility] RBC Auto (Bld) [#/Vol]on RBC (Bld) [#/Vol] Erythrocytes [#/volume] in Blood by Automated count 4.20-5.40 [facility] Serum or plasma anion gap de terminationon 06-01-2024 Anion gap [Moles/Vol] Serum or plasma anion gap determination [facility] Basophils Auto (Bld) [#/Vol] on 05-16-2024 Basophils (Bld) [#/Vol] Automated basophil count 0.0-0.1 [facility] Basophils/100 WBC Auto (Bld) on 05-16-2024 Basophils/100 WBC (Bld) Automated basophil % 0.2-2.0 [facility] Eosinophils/100 WBC Auto (Bl d)on 05-16-2024 Eosinophils/100 WBC (Bld) Automated eosinophil % 0.9-7.0 [facility] Erythrocyte distribution wid th Auto (RBC) [Ratio]on 05-16-2024 Erythrocyte distribution width (RBC) [Ratio] Erythrocyte distribution width [Ratio] by Automated count 11.0-15.0 [facility] Estimated glomerular filtrat ion rate (GFR) non- Americanon 05-16-2024 GFR/1.73 sq M.predicted among non-blacks MDRD (S/P/Bld) [Vol rate/Area] Estimated glomerular filtration rate (GFR) non- Low >=60 mL/min/1.73m 2 [facility] Hematocrit Auto (Bld) [Volum e fraction]on 05-16-2024 Hematocrit (Bld) [Volume fraction] Hematocrit [Volume Fraction] of Blood by Automated count 36.0-48.0 [facility] Hemoglobin [Mass/volume] in Bloodon 05-16-2024 Hemoglobin (Bld) [Mass/Vol] Hemoglobin [Mass/volume] in Blood 12.0-16.0 [facility] Laboratory - Chemistry and C hemistry - challengeon 05-16-2024 Calcium [Mass/Vol] 9.1 mg/dL 8.5-10.1 [facility] Chloride [Moles/Vol] 104 mmol/L 98-107 [facility] CO2 [Moles/Vol] 30.6 mmol/L 21.0-32.0 [facility] Creatinine [Mass/Vol] 1.01 mg/dL 0.55-1.02 [facility] GFR/1.73 sq M.predicted MDRD (S/P/Bld) [Vol rate/Area] mL/min/{1.73_m2} >=60 mL/min/1.73m 2 [facility] Glucose [Mass/Vol] 206 mg/dL High 74-106 [facility] Potassium [Moles/Vol] 5.1 mmol/L 3.5-5.1 [facility] Sodium [Moles/Vol] 141 mmol/L 136-145 [facility] Urea nitrogen [Mass/Vol] 12.0 mg/dL 7.0-18.0 [facility] Urea nitrogen/Creatinine [Mass ratio] 11.9 mg/mg [facility] Laboratory - Hematology and Cell countson 05-16-2024 ESR (Bld) [Velocity] 28 mm/h <=30 [facility] Immature granulocytes/100 WBC (Bld) 0.3 % 0.0-0.5 [facility] Leukocytes [#/volume] correc alma delia for nucleated erythrocytes in Blood by Automated counon 05-16-2024 WBC corrected for nucl RBC Auto (Bld) [#/Vol] Leukocytes [#/volume] corrected for nucleated erythrocytes in Blood by Automated coun 4.0-11.0 [facility] Lymphocytes Auto (Bld) [#/Vo l]on 05-16-2024 Lymphocytes (Bld) [#/Vol] Lymphocytes [#/volume] in Blood by Automated count 1.2-3.8 [facility] Lymphocytes/100 WBC Auto (Bl d)on 05-16-2024 Lymphocytes/100 WBC (Bld) Lymphocytes/100 leukocytes in Blood by Automated count 20.5-60.0 [facility] MCH Auto (RBC) [Entitic mass ]on 05-16-2024 MCH (RBC) [Entitic mass] MCH [Entitic mass] by Automated count 26.7-34.0 [facility] MCHC Auto (RBC) [Mass/Vol]on 05-16-2024 MCHC (RBC) [Mass/Vol] MCHC [Mass/volume] by Automated count 29.9-35.2 [facility] MCV Auto (RBC) [Entitic vol] on 05-16-2024 MCV (RBC) [Entitic vol] MCV [Entitic volume] by Automated count 81.0-99.0 [facility] Monocytes Auto (Bld) [#/Vol] on 05-16-2024 Monocytes (Bld) [#/Vol] Automated blood monocyte count 0.3-0.8 [facility] Monocytes/100 WBC Auto (Bld) on 05-16-2024 Monocytes/100 WBC (Bld) Automated monocyte % 1.7-12.0 [facility] Neutrophils Auto (Bld) [#/Vo l]on 05-16-2024 Neutrophils (Bld) [#/Vol] Neutrophils [#/volume] in Blood by Automated count 1.4-6.5 [facility] Neutrophils/100 WBC Auto (Bl d)on 05-16-2024 Neutrophils/100 WBC (Bld) Automated neutrophil % 43.0-75.0 [facility] No Panel Informationon 05-16 C-Reactive Protein, Quantitative 1.26 mg/dL High <=0.50 [facility] Eosinophils # (Auto) 0.3 10 3/uL 0.0-0.7 [facility] Immature Granulocyte # (Auto) 0.02 10 3/uL 0.00-0.03 [facility] Platelet mean volume Auto (B ld) [Entitic vol]on 05-16-2024 Platelet mean volume (Bld) [Entitic vol] Platelet mean volume [Entitic volume] in Blood by Automated count 9.5-13.5 [facility] Platelets Auto (Bld) [#/Vol] on 05-16-2024 Platelets (Bld) [#/Vol] Platelets [#/volume] in Blood by Automated count 150-450 [facility] RBC Auto (Bld) [#/Vol]on RBC (Bld) [#/Vol] Erythrocytes [#/volume] in Blood by Automated count 4.20-5.40 [facility] Serum or plasma anion gap de terminationon 05-16-2024 Anion gap [Moles/Vol] Serum or plasma anion gap determination [facility] Creatinine [Mass/volume] in UrineOrdered By: Cathie Vargas on 02-23-2024 Creatinine (U) [Mass/Vol] 28.00 mg/dL [facility] Comment on above: No reference range e stablished MicroAlb Creat Ratio,Uon Creatinine, Urine (Random) 28.00 mg/dL Normal [facility] Comment on above: Result Comment: No r eference range established Performed By: #### U RMACRERAT #### [address] Microalbumin/Creatin ine Ratio Not performed Normal 0.0-30.0 [facility] Comment on above: Result Comment: PERF ORMED BY: [place] [address] PATHOLOGIST [employer] RUBINA RICCI M.D. Performed By: #### U RMACRERAT #### [place] [address] [place] Microalbumin [Mass/volume] i n UrineOrdered By: Cathie Vargas on 02-23-2024 Albumin DL <= 20 mg/L (U) [Mass/Vol] mg/dL Normal 0.0-1.8 [facility] Comment on above: Performed By: #### U RMACRERAT #### [address] Urine microalbumin/creatinin e mass ratioOrdered By: Cathie Vargas on 02-23-2024 Albumin/Creatinine DL <= 20 mg/L (U) [Mass ratio] TNP [facility] Comment on above: Test not performed HbA1c HPLC (Bld) [Mass fract ion]on 12-13-2023 HbA1c (Bld) [Mass fraction] 9.9 % [facility] No Panel Informationon 12-12 Bedside Glucose 118 [facility] No Panel Informationon 09-28 Bedside Glucose 278 [facility] HbA1c HPLC (Bld) [Mass fract ion]on 07-28-2023 HbA1c (Bld) [Mass fraction] 10.3 % [facility] No Panel Informationon 07-27 Bedside Glucose 126 [facility] Basophils Auto (Bld) [#/Vol] on 07-12-2023 Basophils (Bld) [#/Vol] 0.0 10 3/uL 0.0-0.1 [facility] Basophils/100 WBC Auto (Bld) on 07-12-2023 Basophils/100 WBC (Bld) 0.5 % 0.2-2.0 [facility] Eosinophils/100 WBC Auto (Bl d)on 07-12-2023 Eosinophils/100 WBC (Bld) 1.5 % 0.9-7.0 [facility] Erythrocyte distribution wid th Auto (RBC) [Ratio]on 07-12-2023 Erythrocyte distribution width (RBC) [Ratio] 12.7 % 11.0-15.0 [facility] Estimated glomerular filtrat ion rate (GFR) non- Americanon 07-12-2023 GFR/1.73 sq M.predicted among non-blacks MDRD (S/P/Bld) [Vol rate/Area] mL/min/{1.73_m2} >=60 [facility] Hematocrit Auto (Bld) [Volum e fraction]on 07-12-2023 Hematocrit (Bld) [Volume fraction] 42.8 % 36.0-48.0 [facility] Hemoglobin [Mass/volume] in Bloodon 07-12-2023 Hemoglobin (Bld) [Mass/Vol] 14.3 g/dL 12.0-16.0 [facility] Laboratory - Chemistry and C hemistry - challengeon 07-12-2023 Calcium [Mass/Vol] 9.1 mg/dL 8.5-10.1 [facility] Chloride [Moles/Vol] 100 mmol/L 98-107 [facility] CO2 [Moles/Vol] 26.1 mmol/L 21.0-32.0 [facility] Creatinine [Mass/Vol] 0.78 mg/dL 0.55-1.02 [facility] GFR/1.73 sq M.predicted MDRD (S/P/Bld) [Vol rate/Area] mL/min/{1.73_m2} >=60 [facility] Glucose [Mass/Vol] 215 mg/dL 74-106 [facility] Potassium [Moles/Vol] 4.0 mmol/L 3.5-5.1 [facility] Sodium [Moles/Vol] 137 mmol/L 136-145 [facility] Urea nitrogen [Mass/Vol] 12.0 mg/dL 7.0-18.0 [facility] Urea nitrogen/Creatinine [Mass ratio] 15.4 mg/mg [facility] Laboratory - Hematology and Cell countson 07-12-2023 Immature granulocytes/100 WBC (Bld) 0.1 % 0.0-0.5 [facility] Leukocytes [#/volume] correc alma delia for nucleated erythrocytes in Blood by Automated counon 07-12-2023 WBC corrected for nucl RBC Auto (Bld) [#/Vol] 7.8 10 3/uL 4.0-11.0 [facility] Lymphocytes Auto (Bld) [#/Vo l]on 07-12-2023 Lymphocytes (Bld) [#/Vol] 2.7 10 3/uL 1.2-3.8 [facility] Lymphocytes/100 WBC Auto (Bl d)on 07-12-2023 Lymphocytes/100 WBC (Bld) 34.1 % 20.5-60.0 [facility] MCH Auto (RBC) [Entitic mass ]on 07-12-2023 MCH (RBC) [Entitic mass] 29.2 pg 26.7-34.0 [facility] MCHC Auto (RBC) [Mass/Vol]on 07-12-2023 MCHC (RBC) [Mass/Vol] 33.4 g/dL 29.9-35.2 [facility] MCV Auto (RBC) [Entitic vol] on 07-12-2023 MCV (RBC) [Entitic vol] 87.5 fL 81.0-99.0 [facility] Monocytes Auto (Bld) [#/Vol] on 07-12-2023 Monocytes (Bld) [#/Vol] 0.5 10 3/uL 0.3-0.8 [facility] Monocytes/100 WBC Auto (Bld) on 07-12-2023 Monocytes/100 WBC (Bld) 6.4 % 1.7-12.0 [facility] Neutrophils Auto (Bld) [#/Vo l]on 07-12-2023 Neutrophils (Bld) [#/Vol] 4.5 10 3/uL 1.4-6.5 [facility] Neutrophils/100 WBC Auto (Bl d)on 07-12-2023 Neutrophils/100 WBC (Bld) 57.4 % 43.0-75.0 [facility] No Panel Informationon 07-11 Eosinophils # (Auto) 0.1 10 3/uL 0.0-0.7 [facility] Immature Granulocyte # (Auto) 0.01 10 3/uL 0.00-0.03 [facility] Platelet mean volume Auto (B ld) [Entitic vol]on 07-12-2023 Platelet mean volume (Bld) [Entitic vol] 10.9 fL 9.5-13.5 [facility] Platelets Auto (Bld) [#/Vol] on 07-12-2023 Platelets (Bld) [#/Vol] 259 10 3/uL 150-450 [facility] RBC Auto (Bld) [#/Vol]on RBC (Bld) [#/Vol] 4.89 10 6/uL 4.20-5.40 [facility] Serum or plasma anion gap de terminationon 07-12-2023 Anion gap [Moles/Vol] 14.9 mmol/L [facility] Glucose - FINGER STICKon Glucose [Mass/Vol] 360 mg/dL [employer] Other CBC AUTO DIFFon 08-27-2022 BASO # 0.0 103/ul Normal 0.0-0.1 [facility] Comment on above: Performed By: #### C BC #### [facility] [address] [place] [address] Dr. Sarah Church Basophils/100 WBC (Bld) 0.5 % Normal 0.2-2.0 [facility] Comment on above: Performed By: #### C BC #### [facility] [address] [place] [address] Dr. Sarah Church EO # 0.2 103/ul Normal 0.0-0.7 [facility] Comment on above: Performed By: #### C BC #### [facility] [address] [place] [address] Dr. Sarah Church Eosinophils/100 WBC (Bld) 2.2 % Normal 0.9-7.0 [facility] Comment on above: Performed By: #### C BC #### [facility] [address] [place] [address] Dr. Sarah Church Erythrocyte distribution width (RBC) [Ratio] 12.5 % Normal 11.0-15.0 [facility] Comment on above: Performed By: #### C BC #### [facility] [address] [place] [address] Dr. Sarah Church Hematocrit (Bld) [Volume fraction] 44.1 % Normal 36.0-48.0 [facility] Comment on above: Performed By: #### C BC #### [facility] [address] [place] [address] Dr. Sarah Church Hemoglobin (Bld) [Mass/Vol] 15.1 g/dL Normal 12.0-16.0 [facility] Comment on above: Performed By: #### C BC #### [facility] [address] [place] [address] Dr. Sarah Church IG # 0.02 10e3/ul Normal 0.00-0.03 [facility] Comment on above: Performed By: #### C BC #### [facility] [address] [place] [address] Dr. Sarah Church IG % 0.2 % Normal 0.0-0.5 [facility] Comment on above: Performed By: #### C BC #### [facility] [address] [place] [address] Dr. Sarah Church LYMPH # 2.9 103/ul Normal 1.2-3.8 [facility] Comment on above: Performed By: #### C BC #### [facility] [address] [place] [address] Dr. Sarah Church Lymphocytes/100 WBC (Bld) 33.4 % Normal 20.5-60.0 [facility] Comment on above: Performed By: #### C BC #### [facility] [address] [place] [address] Dr. Sarah Church MANUAL DIFF REQ NO Normal [facility] Comment on above: Performed By: #### C BC #### [facility] [address] [place] [address] Dr. Sarah Church MCH (RBC) [Entitic mass] 29.1 pg Normal 26.7-34.0 [facility] Comment on above: Performed By: #### C BC #### [facility] [address] [place] [address] Dr. Sarah Church MCHC (RBC) [Mass/Vol] 34.2 g/dL Normal 29.9-35.2 [facility] Comment on above: Performed By: #### C BC #### [facility] [address] [place] [address] Dr. Sarah Church MCV (RBC) [Entitic vol] 85.0 fL Normal 81.0-99.0 [facility] Comment on above: Performed By: #### C BC #### [facility] [address] [place] [address] Dr. Sarah Church MONO # 0.6 103/ul Normal 0.3-0.8 [facility] Comment on above: Performed By: #### C BC #### [facility] [address] [place] [address] Dr. Sarah Church Monocytes/100 WBC (Bld) 6.8 % Normal 1.7-12.0 [facility] Comment on above: Performed By: #### C BC #### [facility] [address] [place] [address] Dr. Sarah Church NEUT # 4.9 103/ul Normal 1.4-6.5 [facility] Comment on above: Performed By: #### C BC #### [facility] [address] [place] [address] Dr. Sarah Church Neutrophils/100 WBC (Bld) 56.9 % Normal 43.0-75.0 [facility] Comment on above: Performed By: #### C BC #### [facility] [address] [place] [address] Dr. Sarah Church Platelet mean volume (Bld) [Entitic vol] 10.8 fL Normal 9.5-13.5 [facility] Comment on above: Performed By: #### C BC #### [facility] [address] [place] [address] Dr. Sarah Church PLT 276 103/ul Normal 150-450 [facility] Comment on above: Performed By: #### C BC #### [facility] [address] [place] [address] Dr. Sarah Church RBC 5.19 106/ul Normal 4.20-5.40 [facility] Comment on above: Performed By: #### C BC #### [facility] [address] [place] [address] Dr. Sarah Church WBC 8.6 103/ul Normal 4.0-11.0 [facility] Comment on above: Performed By: #### C BC #### [facility] [address] [address] [address] Sarah Church LIPID PROFILEon 08-27-2022 CHOL-HDL RATIO NORM SEE BELOW Normal [facility] Comment on above: Result Comment: 3.3 - 4.4 LOW RISK 4.4 - 7.1 AVERAGE RISK 7.1 - 11.0 MODERATE RISK >11.0 HIGH RISK Performed By: #### L IPID, CMP #### [facility] [address] [address] [address] Sarah Church Cholesterol [Mass/Vol] 110 mg/dL Normal <=200 [facility] Comment on above: Performed By: #### L IPID, CMP #### [facility] [address] [address] [address] Sarah Church Cholesterol in HDL [Mass/Vol] 33 mg/dL Critically low 40-60 [facility] Comment on above: Performed By: #### L IPID, CMP #### [facility] [address] [address] [address] Sarah Church Cholesterol in LDL [Mass/Vol] 58.0 mg/dL Normal [facility] Comment on above: Performed By: #### L IPID, CMP #### [facility] Laboratory [address] [address] [address] Sarah Church Cholesterol.total/Ch olesterol in HDL [Mass ratio] 3.3 {ratio} Normal [facility] Comment on above: Performed By: #### L IPID, CMP #### [facility] Laboratory [address] [address] [address] Sarah Church HDL NORMAL > or = 60 mg/dl - LOW CARDIOVASCULAR RISK <40 mg/dl - HIGH CARDIOVASCULAR RISK Normal [facility] Comment on above: Performed By: #### L IPID, CMP #### [facility] Laboratory [address] [place] [address] Dr. Sarah Church LDL CALC NORMAL SEE BELOW Normal [facility] [place] [facility] Comment on above: Result Comment: <100 mg/dl OPTIMAL 100 - 129 mg/dl NEAR OR ABOVE OPTIMAL 130 - 159 mg/dl BORDERLINE HIGH 160 - 189 mg/dl HIGH >190 mg/dl VERY HIGH Performed By: #### L IPID, CMP #### [facility] Laboratory [address] [place] [address] Dr. Sarah Church Triglyceride [Mass/Vol] 95 mg/dL Normal <=150 [facility] Comment on above: Performed By: #### L IPID, CMP #### [facility] Laboratory [address] [place] [address] Dr. Sarah Church VLDL CALC 19.0 mg/dL Normal [facility] Comment on above: Performed By: #### L IPID, CMP #### [facility] Laboratory [address] [place] [address] Dr. Sarah Church PROF 14(COMP METB)on 023 Albumin [Mass/Vol] 3.3 g/dL Critically low 3.4-5.0 Th [facility] Comment on above: Performed By: #### L IPID, CMP #### [facility] Laboratory [address] [place] [address] Dr. Sarah Church Albumin/Globulin [Mass ratio] 0.8 {ratio} Normal [facility] Comment on above: Performed By: #### L IPID, CMP #### [facility] Laboratory [address] [place] [address] Dr. Sarah Church ALP [Catalytic activity/Vol] 100 U/L Normal 46-116 [facility] Comment on above: Performed By: #### L IPID, CMP #### [facility] Laboratory [address] [place] [address] Dr. Sarah Church ALT [Catalytic activity/Vol] 74 U/L Critically high 14-59 [facility] Comment on above: Performed By: #### L IPID, CMP #### [facility] Laboratory [address] [place] [address] Dr. Sarah Church Anion gap [Moles/Vol] 13.2 mmol/L Normal [facility] Comment on above: Performed By: #### L IPID, CMP #### [facility] Laboratory [address] [place] [address] Dr. Sarah Church AST [Catalytic activity/Vol] 42 U/L Critically high 15-37 [facility] Comment on above: Performed By: #### L IPID, CMP #### [facility] Laboratory [address] [address] [address] Sarah Church Bilirubin [Mass/Vol] 0.4 mg/dL Normal 0.2-1.0 [facility] Comment on above: Performed By: #### L IPID, CMP #### [facility] Laboratory [address] [place] [address] Dr. Sarah Church Calcium [Mass/Vol] 9.2 mg/dL Normal 8.5-10.1 [facility] Comment on above: Performed By: #### L IPID, CMP #### [facility] Laboratory [address] [place] [address] Dr. Sarah Church Chloride [Moles/Vol] 99 mmol/L Normal 98-107 [facility] Comment on above: Performed By: #### L IPID, CMP #### [facility] Laboratory [address] [place] [address] Dr. Sarah Church CO2 [Moles/Vol] 30.4 mmol/L Normal 21.0-32.0 [facility] Comment on above: Performed By: #### L IPID, CMP #### [facility] Laboratory [address] [place] [address] Dr. Sarah Church Creatinine [Mass/Vol] 0.78 mg/dL Normal 0.55-1.02 [facility] Comment on above: Performed By: #### L IPID, CMP #### [facility] Laboratory [address] [place] [address] Dr. Sarah Church EGFR-AF SENEGALESE >60 Normal >=60 [facility] Comment on above: Performed By: #### L IPID, CMP #### [facility] Laboratory [address] [place] [address] Dr. Sarah Church EGFR-NON AF SENEGALESE >60 Normal >=60 [facility] Comment on above: Performed By: #### L IPID, CMP #### [facility] Laboratory [address] [place] [address] Dr. Sarah Church Globulin (S) [Mass/Vol] 4.0 g/dL Normal [facility] Comment on above: Performed By: #### L IPID, CMP #### [facility] Laboratory [address] [place] [address] Dr. Sarah Church Glucose [Mass/Vol] 255 mg/dL Critically high 74-106 [facility] Comment on above: Performed By: #### L IPID, CMP #### [facility] Laboratory [address] [place] [address] Dr. Sarah Church Potassium [Moles/Vol] 3.6 mmol/L Normal 3.5-5.1 [facility] Comment on above: Performed By: #### L IPID, CMP #### [facility] Laboratory [address] [place] [address] Dr. Sarah Church Protein [Mass/Vol] 7.3 g/dL Normal 6.4-8.2 [facility] Comment on above: Performed By: #### L IPID, CMP #### [facility] Laboratory [address] [place] [address] Dr. Sarah Church Sodium [Moles/Vol] 139 mmol/L Normal 136-145 [facility] Comment on above: Performed By: #### L IPID, CMP #### [facility] Laboratory [address] [place] [address] Dr. Sarah Church Urea nitrogen [Mass/Vol] 8.0 mg/dL Normal 7.0-18.0 [facility] Comment on above: Performed By: #### L IPID, CMP #### [facility] Laboratory [address] [place] [address] Dr. Sarah Church Urea nitrogen/Creatinine [Mass ratio] 10.3 mg/mg Normal [facility] Comment on above: Performed By: #### L IPID, CMP #### [facility] Laboratory [address] [place] [address] Dr. Sarah Church MG MAMM SCREEN 3D ROB CADon 07-20-2022 MG MAMM SCREEN 3D ROB CAD Patient: ZOILA RAMOS Exam Date: 07/20/2022 : 1970 Gender:F Ordering : DR SHAYY DELA CRUZ M.D. Admission #: [id number] Family : Order #: [id number] CLICK HERE TO VIEW EXAM RADIOLOGY REPORT PROCEDURE: MAMMOGRAM SCREENING 3D BILATERAL CAD COMPARISON: MAMMO ROB SCREEN W CAD DIG, 05/16/2012. INDICATIONS: Screening mammography Calculator Name NCI Breast Cancer Risk Assessment Tool 5 Year Breast Cancer Risk 1.20% Lifetime Breast Cancer Risk 10.80% Personal Breast Cancer No Personal Ovarian Cancer No Treatments None Family Cancers None LOCATION: The [facility] BREAST COMPOSITION: Almost entirely fatty. [...] on 07/21/2022 at 08:24 Normal [facility] PROF CHEM 8 (BAS METB)on Anion gap [Moles/Vol] 14.5 mmol/L Normal [facility] Comment on above: Performed By: #### B MP #### [facility] Laboratory [address] [place] [address] Dr. Sarah Church Calcium [Mass/Vol] 9.8 mg/dL Normal 8.5-10.1 [facility] Comment on above: Performed By: #### B MP #### [facility] Laboratory [address] [address] [address] Sarah Church Chloride [Moles/Vol] 99 mmol/L Normal 98-107 [facility] Comment on above: Performed By: #### B MP #### [facility] Laboratory [address] [address] [address] Sarah Church CO2 [Moles/Vol] 27.2 mmol/L Normal 21.0-32.0 [facility] Comment on above: Performed By: #### B MP #### [facility] Laboratory [address] [address] [address] Sarah Church Creatinine [Mass/Vol] 0.80 mg/dL Normal 0.55-1.02 [facility] Comment on above: Performed By: #### B MP #### [facility] Laboratory [address] [address] [address] Sarah Church EGFR-AF SENEGALESE >60 Normal >=60 [facility] Comment on above: Performed By: #### B MP #### [facility] Laboratory [address] [address] [address] Sarah Church EGFR-NON AF SENEGALESE >60 Normal >=60 [facility] Comment on above: Performed By: #### B MP #### [facility] Laboratory [address] [address] [address] Sarah Church Glucose [Mass/Vol] 458 mg/dL Critically high 74-106 [facility] Comment on above: Performed By: #### B MP #### [facility] Laboratory [address] [address] [address] Sarah Church Potassium [Moles/Vol] 4.7 mmol/L Normal 3.5-5.1 [facility] Comment on above: Performed By: #### B MP #### [facility] Laboratory [address] [address] [address] Sarah Church Sodium [Moles/Vol] 136 mmol/L Normal 136-145 [facility] Comment on above: Performed By: #### B MP #### [facility] Laboratory [address] [address] [address] Sarah Church Urea nitrogen [Mass/Vol] 15.0 mg/dL Normal 7.0-18.0 [facility] Comment on above: Performed By: #### B MP #### [facility] Laboratory [address] [address] [address] Sarah Church Urea nitrogen/Creatinine [Mass ratio] 18.8 mg/mg Normal [facility] Comment on above: Performed By: #### B MP #### [facility] Laboratory [address] [address] [address] Sarah Church GLYCOHEMOGLOBIN A1Con 2022 ADA RECOMMENDATION SEE BELOW Normal [facility] Comment on above: Result Comment: ADA RECOMMENDED LIMIT 4.0 - 6.0 ADA THERAPEUTIC TARGET < 7.0 ACTION SUGGESTED > 7.0 Performed By: #### A 1C ####[facility] [id number] [id number] Sarah Church Glucose [Mass/Vol] 266 mg/dL Normal [facility] Comment on above: Performed By: #### A 1C ####[facility] [id number] [address]DrCoretta Church HbA1c (Bld) [Mass fraction] 10.9 % Critically high 4.5-6.2 [facility] Comment on above: Performed By: #### A 1C ####[facility] [id number] [address]Dr. Sarah Church XR HIP RT 2 3V [...] JAVAD ROB Date: 2022-04-06 21:15 Normal [facility] CBC AUTO DIFFon 11-05-2021 BASO # 0.1 103/ul Normal 0.0-0.1 [facility] Comment on above: Performed By: #### C BC #### [facility] Laboratory [address] [place] [address] Dr. Sarah Church Basophils/100 WBC (Bld) 0.4 % Normal 0.2-2.0 [facility] Comment on above: Performed By: #### C BC #### [facility] Laboratory [address] [address] [address] Sarah Church EO # 0.2 103/ul Normal 0.0-0.7 [facility] Comment on above: Performed By: #### C BC #### [facility] Laboratory [address] [address] [address] Sarah Church Eosinophils/100 WBC (Bld) 1.3 % Normal 0.9-7.0 [facility] Comment on above: Performed By: #### C BC #### [facility] Laboratory [address] [place] [address] Dr. Sarah Church Erythrocyte distribution width (RBC) [Ratio] 12.3 % Normal 11.0-15.0 [facility] Comment on above: Performed By: #### C BC #### [facility] Laboratory [address] [place] [address] Dr. Sarah Church Hematocrit (Bld) [Volume fraction] 43.1 % Normal 36.0-48.0 [facility] Comment on above: Performed By: #### C BC #### [facility] Laboratory [address] [place] [address] Dr. Sarah Church Hemoglobin (Bld) [Mass/Vol] 14.6 g/dL Normal 12.0-16.0 [facility] Comment on above: Performed By: #### C BC #### [facility] Laboratory [address] [place] [address] Dr. Sarah Church IG # 0.04 10e3/ul Critically high 0.00-0.03 [facility] Comment on above: Performed By: #### C BC #### [facility] Laboratory [address] [place] [address] Dr. Sarah Church IG % 0.3 % Normal 0.0-0.5 [facility] Comment on above: Performed By: #### C BC #### [facility] Laboratory [address] [place] [address] Dr. Sarah Church LYMPH # 1.6 103/ul Normal 1.2-3.8 [facility] Comment on above: Performed By: #### C BC #### [facility] Laboratory [address] [place] [address] Dr. Sarah Church Lymphocytes/100 WBC (Bld) 12.5 % Critically low 20.5-60.0 [facility] Comment on above: Performed By: #### C BC #### [facility] Laboratory [address] [place] [address] Dr. Sarah Church MANUAL DIFF REQ NO Normal [facility] Comment on above: Performed By: #### C BC #### [facility] Laboratory [address] [address] [address] Sarah Church MCH (RBC) [Entitic mass] 29.4 pg Normal 26.7-34.0 [facility] Comment on above: Performed By: #### C BC #### [facility] Laboratory [address] [address] [address] Sarah Church MCHC (RBC) [Mass/Vol] 33.9 g/dL Normal 29.9-35.2 [facility] Comment on above: Performed By: #### C BC #### [facility] Laboratory [address] [address] [address] Sarah Church MCV (RBC) [Entitic vol] 86.7 fL Normal 81.0-99.0 [facility] Comment on above: Performed By: #### C BC #### [facility] Laboratory [address] [place] [address] Dr. Sarah Church MONO # 1.0 103/ul Critically high 0.3-0.8 [facility] [place] [facility] Comment on above: Performed By: #### C BC #### [facility] Laboratory [address] [place] [address] Dr. Sarah Church Monocytes/100 WBC (Bld) 7.7 % Normal 1.7-12.0 [facility] Comment on above: Performed By: #### C BC #### [facility] Laboratory [address] [address] [address] Sarah Church NEUT # 9.6 103/ul Critically high 1.4-6.5 [facility] [place] [facility] Comment on above: Performed By: #### C BC #### [facility] Laboratory [address] [address] [address] Sarah Church Neutrophils/100 WBC (Bld) 77.8 % Critically high 43.0-75.0 [facility] Comment on above: Performed By: #### C BC #### [facility] Laboratory [address] [place] [address] Dr. Sarah Church Platelet mean volume (Bld) [Entitic vol] 11.0 fL Normal 9.5-13.5 [facility] Comment on above: Performed By: #### C BC #### [facility] Laboratory [address] [address] [address] Sarah Church PLT 220 103/ul Normal 150-450 [facility] Comment on above: Performed By: #### C BC #### [facility] Laboratory [address] [address] [address] Sarah Church RBC 4.97 106/ul Normal 4.20-5.40 [facility] Comment on above: Performed By: #### C BC #### [facility] Laboratory [address] [address] [address] Sarah Church WBC 12.4 103/ul Critically high 4.0-11.0 [facility] Comment on above: Performed By: #### C BC #### [facility] Laboratory [address] [place] [address] Dr. Sarah Church GROUP A STREP CULTUREon S. pyogenes Ag Ql (Unsp spec) Culture Observations: NEGATIVE FOR GROUP A STREPTOCOCCUS. Normal [facility] Comment on above: Performed By: #### G RASTCX, SSCRN ####[facility] [id number] [address]Dr. Sarah Church POINT OF CARE GLUCOSEon Glucose [Mass/Vol] 214 mg/dL Critically high 74-106 [facility] Comment on above: Performed By: #### P OCGLUC #### [facility] Laboratory [address] [place] [address] Dr. Sarah Church STREPT SCREENon 11-05-2021 STREP SCREEN A Negative Normal NEGATIVE [facility] Comment on above: Performed By: #### G RASTCX, SSCRN ####[facility] [id number] [address]Dr. Sarah Church CBC AUTO DIFFon 10-16-2021 BASO # 0.1 103/ul Normal 0.0-0.1 [facility] Comment on above: Performed By: #### C BC #### [facility] Laboratory [address] [place] [address] Dr. Sarah Church Basophils/100 WBC (Bld) 0.8 % Normal 0.2-2.0 [facility] Comment on above: Performed By: #### C BC #### [facility] Laboratory [address] [place] [address] Dr. Sarah Church EO # 0.3 103/ul Normal 0.0-0.7 [facility] Comment on above: Performed By: #### C BC #### [facility] Laboratory [address] [place] [address] Dr. Sarah Church Eosinophils/100 WBC (Bld) 3.4 % Normal 0.9-7.0 [facility] Comment on above: Performed By: #### C BC #### [facility] Laboratory [address] [place] [address] Dr. Sarah Church Erythrocyte distribution width (RBC) [Ratio] 12.6 % Normal 11.0-15.0 [facility] Comment on above: Performed By: #### C BC #### [facility] Laboratory [address] [place] [address] Dr. Sarah Church Hematocrit (Bld) [Volume fraction] 45.4 % Normal 36.0-48.0 [facility] Comment on above: Performed By: #### C BC #### [facility] Laboratory [address] [place] [address] Dr. Sarah Church Hemoglobin (Bld) [Mass/Vol] 15.0 g/dL Normal 12.0-16.0 [facility] Comment on above: Performed By: #### C BC #### [facility] Laboratory [address] [place] [address] Dr. Sarah Church IG # 0.02 10e3/ul Normal 0.00-0.03 [facility] Comment on above: Performed By: #### C BC #### [facility] Laboratory [address] [place] [address] Dr. Sarah Church IG % 0.2 % Normal 0.0-0.5 [facility] Comment on above: Performed By: #### C BC #### [facility] Laboratory [address] [place] [address] Dr. Sarah Church LYMPH # 2.7 103/ul Normal 1.2-3.8 [facility] Comment on above: Performed By: #### C BC #### [facility] Laboratory [address] [place] [address] Dr. Sarah Church Lymphocytes/100 WBC (Bld) 31.0 % Normal 20.5-60.0 [facility] Comment on above: Performed By: #### C BC #### [facility] Laboratory [address] [place] [address] Dr. Sarah Church MANUAL DIFF REQ NO Normal [facility] Comment on above: Performed By: #### C BC #### [facility] Laboratory [address] [place] [address] Dr. Sarah Church MCH (RBC) [Entitic mass] 29.3 pg Normal 26.7-34.0 [facility] Comment on above: Performed By: #### C BC #### [facility] Laboratory [address] [place] [address] Dr. Sarah Church MCHC (RBC) [Mass/Vol] 33.0 g/dL Normal 29.9-35.2 [facility] Comment on above: Performed By: #### C BC #### [facility] Laboratory [address] [place] [address] Dr. Sarah Church MCV (RBC) [Entitic vol] 88.7 fL Normal 81.0-99.0 [facility] Comment on above: Performed By: #### C BC #### [facility] Laboratory [address] [place] [address] Dr. Sarah Church MONO # 0.6 103/ul Normal 0.3-0.8 [facility] Comment on above: Performed By: #### C BC #### [facility] Laboratory [address] [place] [address] Dr. Sarah Church Monocytes/100 WBC (Bld) 6.5 % Normal 1.7-12.0 [facility] Comment on above: Performed By: #### C BC #### [facility] Laboratory [address] [place] [address] Dr. Sarah Church NEUT # 5.0 103/ul Normal 1.4-6.5 [facility] Comment on above: Performed By: #### C BC #### [facility] Laboratory [address] [address] [address] Sarah Church Neutrophils/100 WBC (Bld) 58.1 % Normal 43.0-75.0 [facility] Comment on above: Performed By: #### C BC #### [facility] Laboratory [address] [address] [address] Sarah Church Platelet mean volume (Bld) [Entitic vol] 11.0 fL Normal 9.5-13.5 [facility] Comment on above: Performed By: #### C BC #### [facility] Laboratory [address] [address] [address] Sarah Church PLT 226 103/ul Normal 150-450 [facility] Comment on above: Performed By: #### C BC #### [facility] Laboratory [address] [address] [address] Sarah Church RBC 5.12 106/ul Normal 4.20-5.40 [facility] Comment on above: Performed By: #### C BC #### [facility] Laboratory [address] [address] [address] Sarah Church WBC 8.6 103/ul Normal 4.0-11.0 [facility] Comment on above: Performed By: #### C BC #### [facility] Laboratory [address] [address] [address] Sarah Church GLYCOHEMOGLOBIN A1Con 2021 ADA RECOMMENDATION SEE BELOW Normal [facility] Comment on above: Result Comment: ADA RECOMMENDED LIMIT 4.0 - 6.0 ADA THERAPEUTIC TARGET < 7.0 ACTION SUGGESTED > 7.0 Performed By: #### A 1C ####[facility] [id number] [address]Dr. Sarah Church Glucose [Mass/Vol] 275 mg/dL Normal [facility] Comment on above: Performed By: #### A 1C ####[facility] [id number] [id number]. Sarah Church HbA1c (Bld) [Mass fraction] 11.2 % Critically high 4.5-6.2 [facility] Comment on above: Performed By: #### A 1C ####[facility] [id number] [place], [place] [address]Gc. Sarah Church LIPID PROFILEon 10-16-2021 CHOL-HDL RATIO NORM SEE BELOW Normal [facility] Comment on above: Result Comment: 3.3 - 4.4 LOW RISK 4.4 - 7.1 AVERAGE RISK 7.1 - 11.0 MODERATE RISK >11.0 HIGH RISK Performed By: #### L IPID, CMP ####[facility] [id number] [place], [place] [address]Mn. Sarah Church Cholesterol [Mass/Vol] 159 mg/dL Normal <=200 [facility] Comment on above: Performed By: #### L IPID, CMP ####[facility] [id number] [place], [place] [address]Fv. Sarah Church Cholesterol in HDL [Mass/Vol] 41 mg/dL Normal 40-60 [facility] Comment on above: Performed By: #### L IPID, CMP ####[facility] [id number] [place], [place] [address]So. Sarah Church Cholesterol in LDL [Mass/Vol] 102.6 mg/dL Normal [facility] Comment on above: Performed By: #### L IPID, CMP ####[facility] [id number] [place], [place] [address]Qe. Sarah Church Cholesterol.total/Ch olesterol in HDL [Mass ratio] 3.9 {ratio} Normal [facility] Comment on above: Performed By: #### L IPID, CMP ####[facility] [address] [place], [place] [address]Cn. Sarah Church HDL NORMAL > or = 60 mg/dl - LOW CARDIOVASCULAR RISK <40 mg/dl - HIGH CARDIOVASCULAR RISK Normal [facility] Comment on above: Performed By: #### L IPID, CMP ####[facility] [address] [place], [place] [address]Er. Sarah Church LDL CALC NORMAL SEE BELOW Normal [facility] Comment on above: Result Comment: <100 mg/dl OPTIMAL 100 - 129 mg/dl NEAR OR ABOVE OPTIMAL 130 - 159 mg/dl BORDERLINE HIGH 160 - 189 mg/dl HIGH >190 mg/dl VERY HIGH Performed By: #### L IPID, CMP ####[facility] [address] [place] [address]Dr. Sarah Church Triglyceride [Mass/Vol] 77 mg/dL Normal <=150 [facility] Comment on above: Performed By: #### L IPID, CMP ####[facility] [address] [place] [address]Dr. Sarah Church VLDL CALC 15.4 mg/dL Normal [facility] Comment on above: Performed By: #### L IPID, CMP ####[facility] [address] [place] [address]Dr. Sarah Church MICROALBUMIN, RAND URon 09-30 mALB 2.0 mg/L Normal <=30.0 The [facility] Comment on above: Performed By: #### M ALBR #### [facility] Laboratory [address] [address] [address] Sarah Church PROF 14(COMP METB)on 022 Albumin [Mass/Vol] 3.5 g/dL Normal 3.4-5.0 [facility] Comment on above: Performed By: #### L IPID, CMP ####[facility] [address] [place] [address]Dr. Sarah Church Albumin/Globulin [Mass ratio] 0.8 {ratio} Normal [facility] Comment on above: Performed By: #### L IPID, CMP ####[facility] [address] [place] [address]Dr. Sarah Church ALP [Catalytic activity/Vol] 85 U/L Normal 46-116 The [facility] Comment on above: Performed By: #### L IPID, CMP ####[facility] [address] [place] [address]DrCoretta Church ALT [Catalytic activity/Vol] 59 U/L Normal 14-59 The [facility] Comment on above: Performed By: #### L IPID, CMP ####[facility] [address] [place] [address]Dr. Sarah Church Anion gap [Moles/Vol] 15.1 mmol/L Normal [facility] Comment on above: Performed By: #### L IPID, CMP ####[facility] [address] [place] [address]Dr. Sarah Church AST [Catalytic activity/Vol] 32 U/L Normal 15-37 The [facility] Comment on above: Performed By: #### L IPID, CMP ####[facility] [address] [place] [address]Dr. Sarah Church Bilirubin [Mass/Vol] 0.4 mg/dL Normal 0.2-1.0 [facility] Comment on above: Performed By: #### L IPID, CMP ####[facility] [address] [place], [place] [address]Dr. Sarah Church Calcium [Mass/Vol] 9.0 mg/dL Normal 8.5-10.1 [facility] Comment on above: Performed By: #### L IPID, CMP ####[facility] [address] [place], [place] [address]Dr. Sarah Church Chloride [Moles/Vol] 102 mmol/L Normal 98-107 The [facility] Comment on above: Performed By: #### L IPID, CMP ####[facility] [address] [place], [place] [address]Dr. Sarah Church CO2 [Moles/Vol] 30.2 mmol/L Normal 21.0-32.0 The [facility] Comment on above: Performed By: #### L IPID, CMP ####[facility] [address] [place], [place] [address]Dr. Sarah Church Creatinine [Mass/Vol] 0.81 mg/dL Normal 0.55-1.02 [facility] Comment on above: Performed By: #### L IPID, CMP ####[facility] [address] [place], [place] [address]Dr. Sarah Church EGFR-AF SENEGALESE >60 Normal >=60 [facility] Comment on above: Performed By: #### L IPID, CMP ####[facility] [address] [place] [address]Dr. Sarah Church EGFR-NON AF SENEGALESE >60 Normal >=60 The [facility] Comment on above: Performed By: #### L IPID, CMP ####[facility] [address] [place] [address]Dr. Sarah Church Globulin (S) [Mass/Vol] 3.9 g/dL Normal [facility] Comment on above: Performed By: #### L IPID, CMP ####[facility] [address] [place], [place] [address]Dr. Sarah Church Glucose [Mass/Vol] 218 mg/dL Critically high 74-106 [facility] Comment on above: Performed By: #### L IPID, CMP ####[facility] [address] [place], [place] [address]Dr. Sarah Ranjit Potassium [Moles/Vol] 4.3 mmol/L Normal 3.5-5.1 [facility] Comment on above: Performed By: #### L IPID, CMP ####[facility] [address] [place], [place] [address]Dr. Sarah Church Protein [Mass/Vol] 7.4 g/dL Normal 6.4-8.2 The [facility] Comment on above: Performed By: #### L IPID, CMP ####[facility] [address] [place], [place] [address]Dr. Sarah Church Sodium [Moles/Vol] 143 mmol/L Normal 136-145 The [facility] Comment on above: Performed By: #### L IPID, CMP ####[facility] [address] [place], [place] [address]Dr. Sarah Church Urea nitrogen [Mass/Vol] 14.0 mg/dL Normal 7.0-18.0 [facility] Comment on above: Performed By: #### L IPID, CMP ####[facility] [address] [place], [place] [address]Dr. Sarah Church Urea nitrogen/Creatinine [Mass ratio] 17.2 mg/mg Normal [facility] Comment on above: Performed By: #### L IPID, CMP ####[facility] [address] [place], [place] [address]My. Sarah Church Vital Signs Date Time Vital Sign Value Performing Clinician Facility 08-23-2024 13:43-0400 Body height 157.48 cm Shayy Dela Cruz MD Work Phone: [facility] 08-23-2024 13:43-0400 Body mass index (BMI) [Ratio] 40 kg/m2 Shayy Dela Cruz MD Work Phone: [phone] [place] [address] 08-23-2024 13:43-0400 Body weight 99.33 kg Shayy Dela Cruz MD Work Phone: [facility] 08-23-2024 13:43-0400 Diastolic blood pressure 77 mm[Hg] Shayy Dela Cruz MD Work Phone: [facility] 08-23-2024 13:43-0400 Heart rate 89 /min Shayy Dela Cruz MD Work Phone: [facility] 08-23-2024 13:43-0400 Systolic blood pressure 169 mm[Hg] Shayy Dela Cruz MD Work Phone: [facility] 08-07-2024 13:09-0400 Body height 157.48 cm Shayy Dela Cruz MD Work Phone: [facility] 08-07-2024 13:09-0400 Diastolic blood pressure 74 mm[Hg] Shayy Dela Cruz MD Work Phone: [facility] 08-07-2024 13:09-0400 Heart rate 85 /min Shayy Dela Cruz MD Work Phone: [facility] 08-07-2024 13:09-0400 Respiratory rate 18 /min Shayy Dela Cruz MD Work Phone: [facility] 08-07-2024 13:09-0400 SaO2% (BldA) [Mass fraction] 96 % Shayy Dela Cruz MD Work Phone: [facility] 08-07-2024 13:09-0400 Systolic blood pressure 142 mm[Hg] Shayy Dela Cruz MD Work Phone: [facility] 06-14-2024 10:21-0500 Body height 157.5 cm Nacho Patiño MD Work Phone: [facility] 06-14-2024 10:21-0500 Body mass index (BMI) [Ratio] 38.59 kg/m2 Nacho Patiño MD Work Phone: [facility] 06-14-2024 10:21-0500 Body temperature 97.3 [degF] Nacho Patiño MD Work Phone: [facility] 06-14-2024 10:21-0500 Body weight 95.71 kg Nacho Patiño MD Work Phone: [facility] 06-14-2024 10:21-0500 Diastolic blood pressure 82 mm[Hg] Nacho Patiño MD Work Phone: [facility] 06-14-2024 10:21-0500 Heart rate 88 /min Nacho Patiño MD Work Phone: [facility] 06-14-2024 10:21-0500 SaO2% (BldA) [Mass fraction] 97 % Nacho Patiño MD Work Phone: [facility] 06-14-2024 10:21-0500 Systolic blood pressure 136 mm[Hg] Nacho Patiño MD Work Phone: [facility] 05-30-2024 10:48-0500 Body height 157.48 cm [facility] 05-30-2024 10:48-0500 Body mass index (BMI) [Ratio] 38.5 kg/m2 [facility] 05-30-2024 10:48-0500 Body weight 95.7 kg [facility] 05-30-2024 10:48-0500 Diastolic blood pressure 77 mm[Hg] [facility] 05-30-2024 10:48-0500 Heart rate 80 /min [facility] 05-30-2024 10:48-0500 Systolic blood pressure 133 mm[Hg] [facility] 02-23-2024 13:23-0400 Body height 157.48 cm [facility] 02-23-2024 13:23-0400 Body mass index (BMI) [Ratio] 38 kg/m2 [facility] 02-23-2024 13:23-0400 Body weight 94.37 kg [facility] 02-23-2024 13:23-0400 Diastolic blood pressure 78 mm[Hg] [facility] 02-23-2024 13:23-0400 Heart rate 75 /min [facility] 02-23-2024 13:23-0400 Respiratory rate 18 /min [facility] 02-23-2024 13:23-0400 SaO2% (BldA) [Mass fraction] 97 % [facility] 02-23-2024 13:23-0400 Systolic blood pressure 170 mm[Hg] [facility] 12-13-2023 13:03-0400 Body height 157.48 cm [facility] 12-13-2023 13:03-0400 Body mass index (BMI) [Ratio] 37.1 kg/m2 [facility] 12-13-2023 13:03-0400 Body weight 92.07 kg [facility] 12-13-2023 13:03-0400 Diastolic blood pressure 86 mm[Hg] [facility] 12-13-2023 13:03-0400 Heart rate 78 /min [facility] 12-13-2023 13:03-0400 Respiratory rate 18 /min [facility] 12-13-2023 13:03-0400 SaO2% (BldA) [Mass fraction] 96 % [facility] 12-13-2023 13:03-0400 Systolic blood pressure 153 mm[Hg] [facility] 12-05-2023 11:24-0400 Body height 157.48 cm [facility] 12-05-2023 11:24-0400 Body mass index (BMI) [Ratio] 36.9 kg/m2 [facility] 12-05-2023 11:24-0400 Body weight 91.62 kg [facility] 12-05-2023 11:24-0400 Diastolic blood pressure 75 mm[Hg] [facility] 12-05-2023 11:24-0400 Heart rate 80 /min [facility] 12-05-2023 11:24-0400 Systolic blood pressure 133 mm[Hg] [facility] 09-29-2023 13:44-0400 Diastolic blood pressure 76 mm[Hg] [facility] 09-29-2023 13:44-0400 Systolic blood pressure 130 mm[Hg] [facility] 09-29-2023 13:19-0400 Body height 157.48 cm [facility] 09-29-2023 13:19-0400 Body mass index (BMI) [Ratio] 38.7 kg/m2 [facility] 09-29-2023 13:19-0400 Body weight 95.9 kg [facility] 09-29-2023 13:19-0400 Heart rate 89 /min [facility] 09-29-2023 13:19-0400 Respiratory rate 18 /min [facility] 09-29-2023 13:19-0400 SaO2% (BldA) [Mass fraction] 98 % [facility] 09-06-2023 11:08-0400 Body height 157.48 cm [facility] 09-06-2023 11:08-0400 Body mass index (BMI) [Ratio] 37.6 kg/m2 [facility] 09-06-2023 11:08-0400 Body weight 93.44 kg [facility] 09-06-2023 11:08-0400 Diastolic blood pressure 72 mm[Hg] [facility] 09-06-2023 11:08-0400 Heart rate 89 /min [facility] 09-06-2023 11:08-0400 Systolic blood pressure 127 mm[Hg] [facility] 08-24-2023 15:08-0400 Body height 157.48 cm [facility] 08-24-2023 15:08-0400 Body mass index (BMI) [Ratio] 37.5 kg/m2 [facility] 08-24-2023 15:08-0400 Body weight 93.21 kg [facility] 08-19-2023 10:43-0400 Body height 157.48 cm MD Shayy Dela Cruz Work Phone: [facility] 08-19-2023 10:43-0400 Body mass index (BMI) [Ratio] 37.5 kg/m2 MD Shayy Dela Cruz Work Phone: [facility] 08-19-2023 10:43-0400 Body weight 93.09 kg MD Shayy Dela Cruz Work Phone: [facility] 08-19-2023 10:43-0400 Diastolic blood pressure 79 mm[Hg] MD Shayy Dela Cruz Work Phone: [facility] 08-19-2023 10:43-0400 Heart rate 83 /min MD Shayy Dela Cruz Work Phone: [facility] 08-19-2023 10:43-0400 Systolic blood pressure 135 mm[Hg] MD Shayy Dela Cruz Work Phone: [facility] 07-28-2023 14:22-0400 Body height 157.48 cm MD Shayy Dela Cruz Work Phone: [facility] 07-28-2023 14:22-0400 Body mass index (BMI) [Ratio] 37.6 kg/m2 MD Shayy Dela Cruz Work Phone: [facility] 07-28-2023 14:22-0400 Body weight 93.44 kg MD Shayy Dela Cruz Work Phone: [facility] 07-28-2023 14:22-0400 Diastolic blood pressure 84 mm[Hg] MD Shayy Dela Cruz Work Phone: [facility] 07-28-2023 14:22-0400 Heart rate 83 /min MD Shayy Dela Cruz Work Phone: [facility] 07-28-2023 14:22-0400 Respiratory rate 18 /min MD Shayy Dela Cruz Work Phone: [facility] 07-28-2023 14:22-0400 SaO2% (BldA) [Mass fraction] 97 % MD Shayy Dela Cruz Work Phone: [facility] 07-28-2023 14:22-0400 Systolic blood pressure 140 mm[Hg] MD Shayy Dela Cruz Work Phone: [facility] 07-19-2023 10:57-0400 Body height 157.48 cm MD Shayy Dela Cruz Work Phone: [facility] 07-19-2023 10:57-0400 Body mass index (BMI) [Ratio] 37.1 kg/m2 MD Shayy Dela Cruz Work Phone: [facility] 07-19-2023 10:57-0400 Body weight 92.07 kg MD Shayy Dela Cruz Work Phone: [facility] 07-19-2023 10:57-0400 Diastolic blood pressure 68 mm[Hg] MD Shayy Dela Cruz Work Phone: [facility] 07-19-2023 10:57-0400 Heart rate 89 /min MD Shayy Dela Cruz Work Phone: [facility] 07-19-2023 10:57-0400 Systolic blood pressure 132 mm[Hg] MD Shayy Dela Cruz Work Phone: [facility] 05-25-2023 11:00-0500 Body height 157.48 cm Cathie Scally Other [facility] 05-25-2023 11:00-0500 Body mass index (BMI) [Ratio] 37.23 kg/m2 Cathie Scally Other [employer] Other 05-25-2023 11:00-0500 Body weight 92.35 kg Cathie Scally Other [facility] 05-25-2023 11:00-0500 Diastolic blood pressure 71 mm[Hg] Cathie Scally Other [facility] 05-25-2023 11:00-0500 Respiratory rate 18 /min Cathie Vargas Other [facility] Other 05-25-2023 11:00-0500 SaO2% (BldA) [Mass fraction] 95 % Cathiesay Anguloly Other [facility] Other 05-25-2023 11:00-0500 Systolic blood pressure 139 mm[Hg] Cathiesay Anguloly Other [facility] 04-15-2023 11:00-0500 Body height 157.48 cm Shayy Dela Cruz Other [facility] 04-15-2023 11:00-0500 Body mass index (BMI) [Ratio] 37.49 kg/m2 Shayy Dela Cruz Other [facility] Other 04-15-2023 11:00-0500 Body weight 92.99 kg Shayy Dela Cruz Other [facility] Other 04-15-2023 11:00-0500 Body weight 92.98 kg MD Shayy Dela Cruz Work Phone: [facility] 04-15-2023 11:00-0500 Diastolic blood pressure 84 mm[Hg] Shayy Dela Cruz Other [facility] 04-15-2023 11:00-0500 Systolic blood pressure 142 mm[Hg] Shayy Dela Cruz Other [facility] 06-22-2022 13:30-0500 Body height 157.48 cm Shayy Dela Cruz Other [employer] Other 06-22-2022 13:30-0500 Body mass index (BMI) [Ratio] 36.94 kg/m2 Shayy Dela Cruz Other [employer] Other 06-22-2022 13:30-0500 Body weight 91.63 kg Shayy Dela Cruz Other [employer] Other 06-22-2022 13:30-0500 Diastolic blood pressure 74 mm[Hg] Shayy Dela Cruz Other [employer] Other 06-22-2022 13:30-0500 SaO2% (BldA) [Mass fraction] 97 % Shayy Dela Cruz Other [employer] Other 06-22-2022 13:30-0500 Systolic blood pressure 112 mm[Hg] Shayy Dela Cruz Other [employer] Other Encounters Encounter Date Encounter Type Care Provider Facility Start: 08-23-2024 End: 08-23-2024 ambulatory Shayy Dela Cruz MD Work Phone: [facility] Work Phone: Start: 08-23-2024 End: 08-23-2024 Patient encounter procedure Shayy Dela Cruz MD Work Phone: [facility] Work Phone: Start: 08-20-2024 Non-patient / Non-visit Shayy Dela Cruz MD Work Phone: [facility] Work Phone: Start: 08-07-2024 End: 08-07-2024 ambulatory Shayy Dela Cruz MD Work Phone: [facility] Work Phone: Start: 08-07-2024 End: 08-07-2024 Patient encounter procedure Shayy Dela Cruz MD Work Phone: [facility] Work Phone: Start: 07-19-2024 Non-patient / Non-visit Shayy Dela Cruz MD Work Phone: [facility] Work Phone: Start: 07-05-2024 End: 07-05-2024 ambulatory Shayy Dela Cruz MD Work Phone: [facility] Work Phone: Start: 07-05-2024 End: 07-05-2024 Departed Referred Shayy Dela Cruz MD Work Phone: [facility] Start: 06-21-2024 Non-patient / Non-visit Shayy Dela Cruz MD Work Phone: [facility] Work Phone: Start: 06-20-2024 Non-patient / Non-visit Shayy Dela Cruz MD Work Phone: [facility] Work Phone: Start: 06-19-2024 End: 06-19-2024 ambulatory [facility] Start: 06-19-2024 Non-patient / Non-visit Shayy Dela Cruz MD Work Phone: [facility] Work Phone: Start: 06-14-2024 End: 06-14-2024 Office outpatient new 30 minutes Nacho Patiño MD Work Phone: [facility] Comment on above: 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[facility]) (Primary Dx) Start: 06-14-2024 End: 06-14-2024 ambulatory [facility] Start: 06-13-2024 Non-patient / Non-visit Shayy Dela Cruz MD Work Phone: [facility] Work Phone: Start: 06-12-2024 Non-patient / Non-visit Shayy Dela Cruz MD Work Phone: [facility] Work Phone: Start: 06-07-2024 Non-patient / Non-visit Shayy Dela Cruz MD Work Phone: [facility] Work Phone: Start: 06-01-2024 Non-patient / Non-visit Shayy Dela Cruz MD Work Phone: [facility] Work Phone: Start: 05-30-2024 Patient encounter status Shayy Dela Cruz MD Work Phone: [facility] Start: 05-30-2024 End: 05-30-2024 ambulatory [facility] Work Phone: Start: 05-30-2024 End: 05-30-2024 Encounter for general adult medical examination without abnormal findings Shayy Dela Cruz MD Work Phone: [facility] Start: 05-30-2024 End: 05-30-2024 Patient encounter procedure [facility] Work Phone: Start: 05-24-2024 End: 05-24-2024 ambulatory [facility] Work Phone: Start: 05-24-2024 End: 05-24-2024 Patient encounter procedure [facility] Work Phone: Start: 05-16-2024 Non-patient / Non-visit [facility] Work Phone: Start: 05-07-2024 Non-patient / Non-visit [facility] Work Phone: Start: 04-19-2024 End: 04-19-2024 Patient encounter procedure [facility] Work Phone: Start: 02-28-2024 Non-patient / Non-visit [facility] Work Phone: Start: 02-23-2024 End: 02-23-2024 ambulatory Cathie Vargas [facility] Work Phone: Start: 02-23-2024 End: 02-23-2024 Patient encounter procedure FATEMEH Vargas Work Phone: [facility] Work Phone: Start: 02-23-2024 End: 02-23-2024 ambulatory [facility] Work Phone: Start: 02-23-2024 End: 02-23-2024 Patient encounter procedure [facility] Work Phone: Start: 01-17-2024 End: 01-17-2024 ambulatory [facility] Work Phone: Start: 01-17-2024 End: 01-17-2024 Patient encounter procedure [facility] Work Phone: Start: 12-13-2023 End: 12-13-2023 ambulatory [facility] Work Phone: Start: 12-13-2023 End: 12-13-2023 Patient encounter procedure [facility] Work Phone: Start: 12-05-2023 End: 12-05-2023 ambulatory [facility] Work Phone: Start: 12-05-2023 End: 12-05-2023 Patient encounter procedure [facility] Work Phone: Start: 11-07-2023 End: 11-07-2023 ambulatory [facility] Work Phone: Start: 11-07-2023 End: 11-07-2023 Patient encounter procedure [facility] Work Phone: Start: 09-29-2023 End: 09-29-2023 ambulatory [facility] Work Phone: Start: 09-29-2023 End: 09-29-2023 Patient encounter procedure [facility] Work Phone: Start: 09-06-2023 End: 09-06-2023 ambulatory [facility] Work Phone: Start: 09-06-2023 End: 09-06-2023 Patient encounter procedure [facility] Work Phone: Start: 08-24-2023 End: 08-24-2023 ambulatory [facility] Work Phone: Start: 08-24-2023 End: 08-24-2023 Patient encounter procedure [facility] Work Phone: Start: 08-19-2023 End: 08-19-2023 ambulatory MD Shayy Dela Cruz Work Phone: [facility] Work Phone: Start: 08-19-2023 End: 08-19-2023 Patient encounter procedure MD Shayy Dela Cruz Work Phone: [facility] Work Phone: Start: 07-28-2023 End: 07-28-2023 ambulatory MD Shayy Dela Cruz Work Phone: [facility] Work Phone: Start: 07-28-2023 End: 07-28-2023 Patient encounter procedure MD Shayy Dela Cruz Work Phone: [facility] Work Phone: Start: 07-19-2023 End: 07-19-2023 ambulatory MD Shayy Dela Cruz Work Phone: [facility] Work Phone: Start: 07-19-2023 End: 07-19-2023 Patient encounter procedure MD Shayy Dela Cruz Work Phone: [facility] Work Phone: Start: 07-12-2023 Non-patient / Non-visit MD Qi Dela Cruz Work Phone: [facility] Work Phone: Start: 06-14-2023 End: 06-14-2023 ambulatory MD Shayy Dela Cruz Work Phone: [facility] Work Phone: Start: 06-14-2023 End: 06-14-2023 Patient encounter procedure MD Shayy Dela Cruz Work Phone: [facility] Work Phone: Start: 06-06-2023 End: 06-06-2023 ambulatory Shayy Dela Cruz Other [employer] Other Start: 06-06-2023 Telephone encounter Shayy Dela Cruz [facility] Start: 05-25-2023 FQHC visit new patient Cathie Sheikh y [facility] Start: 05-25-2023 End: 05-25-2023 ambulatory MD Shayy Dela Cruz Work Phone: [employer] Other Start: 05-25-2023 End: 05-25-2023 Discharged Recurring MD Shayy Dela Cruz Work Phone: [facility] Work Phone: Start: 05-25-2023 Registered Recurring MD Shayy Del[facility] Work Phone: Start: 05-25-2023 End: 05-25-2023 Patient encounter procedure MD Shayy Dela Cruz Work Phone: [facility]- Start: 05-12-2023 End: 05-12-2023 ambulatory Shayy Dela Cruz Other [employer] Other Start: 05-12-2023 Telephone encounter Shayy Dela Cruz [facility] Start: 05-10-2023 End: 05-10-2023 ambulatory Shayy Dela Cruz Other [employer] Other Start: 05-10-2023 Telephone encounter Shayy Dela Cruz [facility] Start: 04-22-2023 End: 04-22-2023 ambulatory Shayy Dela Cruz Other [employer] Other Start: 04-22-2023 Telephone encounter Shayy Dela Cruz [facility] Start: 04-20-2023 End: 04-20-2023 ambulatory Lynne Avilat Other [employer] Other Start: 04-20-2023 Telephone encounter Lynne Hernandez [facility] Start: 04-18-2023 End: 04-18-2023 ambulatory Lynne Fitt Other [employer] Other Start: 04-18-2023 Telephone encounter Lynneana Avilat [facility] Start: 04-15-2023 End: 04-15-2023 ambulatory Shayy Dela Cruz Other [employer] Other Start: 04-15-2023 Office outpatient vi sit [address] [facility] Start: 04-15-2023 End: 04-15-2023 Patient encounter procedure MD Shayy Dela Cruz Work Phone: [facility] Work Phone: Start: 04-06-2023 End: 04-06-2023 ambulatory Shayy Dela Cruz Other [employer] Other Start: 04-06-2023 Telephone encounter Shayy Dela Cruz [facility] Start: 02-25-2023 End: 02-25-2023 ambulatory Shayy Dela Cruz Other [employer] Other Start: 02-25-2023 Telephone encounter Shayy Dela Cruz [facility] Start: 10-29-2022 End: 10-29-2022 ambulatory Shayy Dela Cruz Other [employer] Other Start: 10-29-2022 Telephone encounter Shayy Dela Cruz [facility] Start: 08-27-2022 End: 08-28-[address] SHAYY DELA CRUZ Facility:[facility] Start: 07-20-2022 End: 07-21-[address] SHAYY DELA CRUZ Facility:[facility] Start: 07-19-2022 End: 07-19-2022 ambulatory Shayy Dela Cruz Other [employer] Other Start: 07-19-2022 Telephone encounter Shayy Dela Cruz [facility] Start: 07-12-2022 End: 07-13-[address] SHAYY DELA CRUZ Facility:[facility] Start: 07-05-2022 End: 07-05-2022 ambulatory Shayy Dela Cruz Other [employer] Other Start: 07-05-2022 Telephone encounter Shayy Dela Cruz [facility] Start: 06-28-2022 End: 06-28-2022 ambulatory Shayy Dela Cruz Other [employer] Other Start: 06-28-2022 Telephone encounter Shayy Dela Cruz [facility] Start: 06-22-2022 End: 06-22-2022 ambulatory Shayy Dela Cruz Other [employer] Other Start: 06-22-2022 Office outpatient vi sit [address] [facility] Start: 05-27-2022 End: 05-27-2022 ambulatory Shayy Dela Cruz Other [employer] Other Start: 05-27-2022 Telephone encounter Shayy Dela Cruz [facility] Start: 05-19-2022 End: 05-20-[address] [...] Start: 05-10-2017 End: 05-11-2017 Ambulatory DEFAULT PHYSICIAN Facility:[facility] Start: 05-05-2017 End: 05-06-2017 Ambulatory DEFAULT PHYSICIAN Facility:[facility] Procedures Date Procedure Procedure Detail Performing Clinician History of amputatio n of lesser toe H/O amputation of lesser toe Shayy Dela Cruz MD Work Phone: Comment on above: left foot Plan of Treatment Date Care Activity Detail Author Start: 01-01-2024 Influenza vaccination Influenza Vaccine [facility] Start: 01-15-2022 Administration of varicella zoster vaccine Zoster (Shingles) Vaccine (1 of 2) [facility] Start: 01-15-1993 Screening for malignant neoplasm of cervix Pap Smear [facility] Start: 01-15-1991 DTaP,Tdap and Td Vaccines (1 - Tdap) DTaP,Tdap and Td Vaccines (1 - Tdap) [facility] Start: 01-15-1990 Adult BMI Screening Adult BMI Screening [facility] Start: 1984 Depression Screening Depression Screening [facility] Start: 1984 Tobacco Screening Tobacco Screening [facility] Comprehensive metabo lic 2000 panel - Serum or Plasma [facility] MG Breast - bilatera l Screening [facility] Immunizations Immunization Date Immunization Notes Care Provider Fa cility 02-01-2022 influenza virus vaccine, split virus (incl. purified surface antigen) Shayy Dela Cruz Other [employer] Other 02-01-2022 influenza virus vaccine, unspecified formulation MD Shayy Dela Cruz Work Phone: [facility] Payers Date Payer Category Payer Medicare O ANTH MEDICARE [id number] 2017 [place] [id number] 2017 Unknown [id number] 1972 Unknown [id number] 1972 Unknown [id number] 1972 Unknown [id number] 1972 Unknown [id number] 1972 Unknown [id number] [id number] 1972 Unknown [id number] [id number] 1972 Unknown [id number] [id number] 1972 Unknown [id number] [id number] 1972 Unknown [id number] 1972 Unknown [id number] 1959 Medicaid [id number] 1959 Medicare [id number] Medicare Medicare [id number] Unknown Social History Date Type Detail Facility Unknown if ever smoked [facility] Other Start: 06-14-2024 Sex Assigned At [facility] Other Start: 1970 Sex Assigned At Female [facility] Start: 07-19-2023 End: 05-25-2024 Tobacco smoking status NHIS Never smoked tobacco (finding) [facility] Start: 05-24-2024 End: 08-23-2024 Sex Female (finding) [facility] Start: 06-14-2024 Tobacco use and exposure Smokeless tobacco non-user [facility] Start: 06-14-2024 Alcoholic beverage intake Lifetime non-drinker (finding) [facility] Start: 06-14-2024 History of Social function [facility] Within the past 12 months we worried whether our food would run out before we got money to buy more. Never [facility] Start: 1970 Sex assigned at Not on file [facility] NEGATED: Highlighted row [facility] Medical Equipment Procedure Code Equipment Code Equipment [...] scheduled for 06/21/[address] Bruce at [facility]. She had EKG, CXR, and labs [...] scheduled for 06/21/[address] Bruce at [facility]. She had EKG, CXR, and labs [...] Active Problem List Diagnosis Coronary arteriosclerosis in mechoopda artery Old myocardial infarction Sinusitis Type 1 [...] normal sized. (more content not included)... [facility] 06-14-2024 Evaluation + Plan note Associated Problem(s): Gangrene of toe of left foot ([facility]) Osteomyelitis and gangrenous changes of the left second and third and may be the fourth toe.She has normal PVR with toe pressure and normal HIEU and toe pressure index.I discussed with her that there is no VASc intervention needed at this time. She needs his aggressive blood sugar control IV antibiotics likely toe amputation by podiatry and risk factors modification. [facility] 06-14-2024 Miscellaneous Notes Associated Problem(s): Gangrene of toe of left foot ([facility]) Osteomyelitis and gangrenous changes of the [...] factors modification. documented in this encounter [facility] 06-14-2024 History of Presen t illness [...] Past Medical History: Diagnosis Date Diabetes mellitus ([facility]) Past Surgical History: No past surgical history [...] Interpersonal Safety: Unknown (06/23/2023) Received from [facility] Environment Fear of [...] visit: Gangrene of toe of left foot ([facility]) Nacho Patiño MD, SELMA, RPVI, FSVS, FACS [facility] [employer] This note was created with the assistance of a speech recognition program. While intending to generate a timely document that accurately reflects the content of the visit, no guarantee can be provided that every grammatical or spelling mistake has been or will be identified or corrected. Thank you for your understanding. documented in this encounter [facility] 05-30-2024 Evaluation note Diagnosis Onset Date Resolution Colon cancer screening acute [facility] 2024 10:42am Long-term insulin use acute May 10:42am Type 2 diabetes mellitus acute May 30, 2024 10:42am Wellness examination acute 2024 10:42am BMI 37.0-37.9, adult acute A[place] 2024 1:05pm Dietary counseling and surveillance acute August 07, 2024 1:05pm History of myocardial infarction acute August 07, 2024 1:05pm HTN (hypertension) acute August 07, 2024 1:05pm Hyperlipidemia acute August 07, 2024 1:05pm Long-term insulin use acute Jul 1:05pm Type 2 diabetes mellitus acute August 07, 2024 1:05pm Vitamin D deficiency acute 2024 1:05pm [facility] Work Phone: 1(280) 121-653601-23-2025 Evaluation note* Diagnosis Onset Date Resolution Status Admit Date Type 2 diabetes mellitus acute May 24, 2024 12:54pm Colon cancer screening acute [place] 2024 10:42am Long-term insulin use acute May 10:42am Type 2 diabetes mellitus acute May 30, 2024 10:42am Wellness examination acute 2024 10:42am BMI 37.0-37.9, adult acute Apri l 2024 1:05pm Dietary counseling and surveillance acute August 07, 2024 1:05pm History of myocardial infarction acu te August 07, 2024 1:05pm HTN (hypertension) acute August 07, 2024 1:05pm Hyperlipidemia acute August 07, 2024 1:05pm Long-term insulin use acute Apr 2025 1:05pm Type 2 diabetes mellitus acute August 07, 2024 1:05pm Vitamin D deficiency acute 2024 1:05pm [facility] Work Phone: 1(589) 159-332712-19-2024 Evaluation note* Diagnosis Onset Date Resolution Status Admit Date Type 2 diabetes mellitus acute April 19, 2024 2:03pm [facility] Work Phone: 1(198) 642-622212-19-2024 Evaluation note* Diagnosis Onset Date Resolution Status Admit Date Type 2 diabetes mellitus acute April 19, 2024 2:03pm Type 2 diabetes mellitus acute May 24, 2024 12:54pm [facility] Work Phone: 1(707) 950-595012-19-2024 Evaluation note* Diagnosis Onset Date Resolution Status Admit Date Type 2 diabetes mellitus acute April 19, 2024 2:03pm Type 2 diabetes mellitus acute May 24, 2024 12:54pm Colon cancer screening acute Chente barragan 2024 10:42am Long-term insulin use acute Nic uary 2024 10:42am Type 2 diabetes mellitus acute May 30, 2024 10:42am Wellness examination acute Geovanny pacheco 2024 10:42am [facility] Work Phone: 1(566) 747-395602-05-2024 Evaluation note* Encounter Date Diagnosis Assessment Notes Treatment Notes Treatment Clinical Notes Jun, Controlled type 2 diabetes mellitus with hyperglycemia, unspecified whether prison insulin use (ICD-10 - E11.65) [employer] Other 01-24-2024 Evaluation note* Encounter Date Diagnosis [...] Instructions material was published to portal May, candle wicker current use of insulin (ICD-10 - Z79.4) May, BMI 37.0-37.9, adult (ICD-10 - Z68.37) May, Other 05/25/2023 The patient was given a Dexcom G7 sensor sample and an [employer] [place]. She was taught how to use the [...] educating the patient by Nguyễn Norwood RN, [facility]. [employer] Other 12-15-2023 Evaluation note* Encounter Date Diagnosis Assessment Notes Treatment Notes Treatment Clinical Notes Apr, Type 2 diabetes mellitus with hyperglycemia (ICD-10 - E11.65) Rx handwritten for diabetic shoes. Pt agrees to referral to specialty clinic. Continue present meds and discussed healthy diet in meantime. 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 She declines and will continue meds, followup in 3 months, and recheck labs at that time. She is eating more of a keto diet and is certain that is helping her A1C improve. Jun, Screening mammogram for breast cancer (ICD-10 - Z12.31) Zoila will call for an appt [employer] Other 12-15-2022 NotePROCEDURE: XR FOOT LT MIN [...] by: NARINDER LAN Date: 2022-04-15 06:08[facility]09-12-2022 NotePROCEDURE: XR TOES RT MIN 2 V HISTORY: Pain of toe of right foot ; first toe pain following injury COMPARISON: None. FINDINGS: BONES:No fracture, acute abnormality, or significant arthropathy. SOFT TISSUES:No visible soft tissue swelling. EFFUSION:None visible. OTHER: Negative. IMPRESSION: 1. No acute bone abnormality. 2. Mild degenerative joint disease. Electronically authenticated by: NARINDER LAN Date: 2022-01-11 18:48[facility] N[facility]* Chief Complaint 3 Month Follow Up Referral Dr. Negro Dela Cruz DM download [facility] Work Phone: chief complaint+Reason for visit Narrative* Chief Complaint 3 Month Follow Up Referral Dr. Negro Dela Cruz DM download Reason for Visit Type 2 diabetes holli [facility] Work Phone: chief complaint+Reason for visit Narrative* Chief Complaint Referral Dr. Negro LAGUERRE download 3 Month Check up Reason for Visit Type 2 diabetes holli [facility] Work Phone: chief complaint+Reason for visit Narrative* Chief Complaint Referral Dr. Negro LAGUERRE download 3 Month Check up amrik reader Reason for Visit Type 2 diabetes holli itus Right wrist fracture Type 2 diabetes mellitus [facility] Work Phone: chief complaint+Reason for [...] mellitus Vitamin D deficiency Gastroesophageal reflux disease [facility] Work Phone: Evaluation noteNo InformationNort [employer] Other Evaluation noteNo assessment information available [facility] Work Phone: Evaluation note* Diagnosis Onset Date Resolution Status Type 2 diabetes mellitus acu te [facility] Work Phone: Evaluation note* Diagnosis Onset Date Resolution Status Type 2 diabetes mellitus acu te Right wrist fracture acute Type 2 diabetes mellitus acu te [facility] Work Phone: Evaluation note* Diagnosis [...] D deficiency acute Gastroesophageal reflux disease acute [facility] Work Phone: evaluation note* Diagnosis Onset [...] acute Type 2 diabetes mellitus acu te [facility] Work Phone: evaluation note* Diagnosis Onset [...] acute Type 2 diabetes mellitus acu te [facility] Work Phone: evaluation note* Diagnosis Onset [...] acute Type 2 diabetes mellitus acu te [facility] Work Phone: evaluation note* Diagnosis Onset [...] te Screening mammogram for breast cancer acute [facility] Work Phone: evaluation note* Diagnosis Onset [...] mellitus acu te Vitamin D deficiency acute [facility] Work Phone: Evaluation note* Diagnosis [...] acute Type 2 diabetes mellitus acu te [facility] Work Phone: Evaluation note* Diagnosis [...] mellitus acu te Vitamin D deficiency acute [facility] Work Phone: Evaluation note* Diagnosis Gangrene of toe of left foot ([facility] Primary [facility] - [facility]* Type Description Date Medical History Herpes labialis Medical History Candidiasis of mouth Medical History Type 2 diabetes holli itus with diabetic polyneuropathy, unspecified whether prison insulin use Medical History Controlled type 2 di abetes mellitus with hyperglycemia, unspecified whether geek squad manager insulin use Medical History Obesity Medical History Dyslipidemia Medical History CAD in mechoopda artery Medical History Asthma, intermittent Medical History [...] History appendectomy Surgical History 7 stents 1999 [employer] Other History general Narrative - Reported* Type Description Date Medical History Herpes labialis Medical History Candidiasis of mouth Medical History Type 2 diabetes holli itus with diabetic polyneuropathy, unspecified whether prison insulin use Medical History Controlled type 2 di abetes mellitus with hyperglycemia, unspecified whether prison insulin use Medical History Obesity Medical History Dyslipidemia Medical History CAD in mechoopda artery Medical History Asthma, intermittent Medical History [...] stents 1999 Hospitalization History see surgical history [employer] Other Hisiapf general Narrative - Reported* Type Description Date Medical History Herpes labialis Medical History Candidiasis of mouth Medical History Type 2 diabetes holli itus with diabetic polyneuropathy, unspecified whether geek squad manager insulin use Medical History Controlled type 2 di abetes mellitus with hyperglycemia, unspecified whether prison insulin use Medical History Obesity Medical History Dyslipidemia Medical History CAD in mechoopda artery Medical History Asthma, intermittent Medical History [...] coronary 1999 Hospitalization History see surgical history [employer] Other InstructionsNot on filedocumented in this encounter [facility] [employer] [facility] Summary Purpose Family History Relationship Condition Age [...] itus with hyperglycemia (E11.65) Referral Organization [facility]uchs Referring Provider First Name Shayy Referring Provider Last Name Jose De Jesus Referring Provider Specialty [facility] Referred Organization [facility] Referred Provider Marcia Mendse Referred Address [address],[place], [place],[address] Referred Provider Specialty Nurse Huey saldaña Referral [...] diabetes mellitus May 24, 2 025 12:54pm Chief Complaint Admit Date Amb [...] Admit Date Type 2 diabetes mellitus May 24, 2 025 12:54pm Colon cancer screening May 30 10:42am Long-term insulin use May 30, 2024 10:42am Type 2 diabetes mellitus May 30 2 025 10:42am Wellness examination May 30, 2024 [...] D deficiency August 07, 2024 1:0 5pm Chief Complaint Admit Date Wellness May 30, 2024 1 0:42am Amb Documentation June 13, 2024 9:38am Amb Documentation June 21, 2024 9:25am Unknown July 05, 2024 9:33 am Amb Documentation July 19, 2024 9:2 9am Diabetes follow up-METER August 07, 2024 1:05pm Amb Documentation August 20, 2024 1:4 8pm Pulled Muscle August 23, 2024 1:4 1pm Reason for Visit Admit Date Colon cancer screening May 30 10:42am Long-term [...] section and content) DATE CREATED AUTHOR 10/25/2017 [facility] DATE CREATED AUTHOR AUTHOR'S ORGANIZ ATION 09/03/2022 [facility] DATE CREATED AUTHOR AUTHOR'S ORGANIZ ATION 06/16/2024 [facility] DATE CREATED AUTHOR AUTHOR'S ORGANIZ ATION 06/30/2024 [facility] DATE CREATED AUTHOR AUTHOR'S ORGANIZ ATION 07/13/2024 [facility] REASON FOR VISIT (unrecogniz ed [...] MD Primary Care Provider Active Start: August 20, 2024 Brittney Drummond CMA Attending Provider Active Start: August 20, 2024 Team Status: Inactive Member Role Status Dates Shayy Dela Cruz MD Primary Care Provide r, Attending Provider Active Start: August 23, 2024 End: August 23, 2024 Team Status: Active Member Role [...] Active Start: May 07, 2024 Team Status: Inactive Member Role Status [...] End: June 14, 2023 Cathie Vargas , GEOTHERMAL OPERATING ENGINEER Active Star t: June 14, 2023 End: [...] 13, 2023 End: December 13, 2023 Cathie aVrgas , GEOTHERMAL OPERATING ENGINEER Attending Provider Active Start: December 13, 2023 End: December 13, 2023 Team Status: Inactive Member Role Status Susan Dela Cruz MD Primary Care Provider Active Start: January 17, 2024 End: January 17, 2024 Cathie Vargas , GEOTHERMAL OPERATING ENGINEER Active Star t: January 17, 2024 End: January 17, 2024 Brittani Collier RN Attending Provider Active Start: January 17, 2024 End: January 17, 2024 Team Status: Inactive Member Role Status Susan Dela Cruz MD Primary Care Provider Active Start: February 23, 2024 End: February 23, 2024 Cathie Vargas , GEOTHERMAL OPERATING ENGINEER Attending Provider Active Start: February 23, 2024 End: February 23, 2024 Team Status: Inactive Member Role Status Dates Cathie Vargas , GEOTHERMAL OPERATING ENGINEER Attending Provider Active Start: February 23, 2024 End: February 23, 2024 Team Status: Active Member Role Status Susan Drummond CMA Attending Provider Active Start: February 28, 2024 Team Status: Active Member Role Status Susan Dela Cruz MD Primary Care Provider Active Start: August 20, 2024 Brittney Drummond CMA Attending Provider Active Start: August 20, 2024 Team Status: Inactive Member Role Status Susan Dela Cruz MD Primary Care Provide r, Attending Provider Active Start: August 23, 2024 End: August 23, 2024 Goals (unrecognized section and content) [...] ON THE PRIMARY CLINICAL RECORDS. [facility] [employer] [facility]. provides no warranty or guarantee of the accuracy or completeness of information in this document.
[2024-09-30 21:25] VITALS: BP 181/112; PULSE 94; TEMP 36.8; O2SAT 97; BMI 41.2
--- NOTE | 2024-09-30 21:35 | ED.EXTPRO1 ---
HPI - Extremity Problem General Chief complaint: Extremity Problem, Nontraumatic Stated complaint: LE PAIN Time Seen by Provider: 09/30/24 21:22 Source: patient Mode of arrival: walk-in Limitations: no limitations History of Present Illness HPI Narrative: patient is diabetic. 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 States tonight she removed her support stocking and she pulled off the corner of her nail left great toe. Has mall open wound and was concerned about it and came in. Incident occurred within the hour. No drainage Related Data Home Medications ?Medication ?Instructions ?Recorded ?Confirmed albuterol sulfate 90 mcg/actuation 2 inh inhalation PRN PRN shortness 12/31/22 06/19/24 aerosol inhaler of breath or wheezing aspirin 81 mg capsule 81 mg PO DAILY 12/31/22 06/19/24 atorvastatin 40 mg tablet 40 mg PO DAILY 12/31/22 06/19/24 carvedilol 6.25 mg tablet 6.25 mg PO Q12H 12/31/22 07/05/24 esomeprazole magnesium 40 mg 40 mg PO Q24H 12/31/22 06/19/24 capsule,delayed release fluticasone propionate 110 3 puff inhalation PRN PRN 12/31/22 07/05/24 mcg/actuation HFA aerosol inhaler bronchospasm (Flovent HFA) glipizide 10 mg tablet 5 mg PO BID 12/31/22 07/05/24 insulin glargine U-300 conc 300 95 unit subcut QAM 12/31/22 07/05/24 unit/mL (1.5 mL) subcutaneous pen (Toujameso SoloStar U-300 Insulin) insulin lispro 100 unit/mL 1 sliding scale dose subcut TID 12/31/22 07/05/24 subcutaneous pen losartan 25 mg tablet 25 mg PO DAILY 12/31/22 07/05/24 metformin 1,000 mg tablet 500 mg PO BID 12/31/22 07/05/24 famotidine 20 mg tablet 20 mg PO QPM 04/19/24 07/05/24 nitroglycerin 0.4 mg sublingual 0.4 mg sublingual Q5M PRN chest 04/19/24 06/19/24 tablet pain fluticasone propionate 50 2 spray intranasal DAILY 06/19/24 07/05/24 mcg/actuation nasal spray,suspension hydrocodone 5 mg-acetaminophen 325 1 tab PO Q6H PRN pain 06/19/24 07/05/24 mg tablet Previous Rx's ?Medication ?Instructions ?Recorded amoxicillin 875 mg-potassium 1 tab PO Q12H #20 tabs 06/07/24 clavulanate 125 mg tablet sulfamethoxazole 800 1 tab PO BID #20 tabs 06/07/24 mg-trimethoprim 160 mg tablet (Bactrim DS) ondansetron 4 mg disintegrating 4 mg PO Q6H PRN nausea and 06/19/24 tablet vomiting #20 tabs cyclobenzaprine 10 mg tablet 10 mg PO TID PRN muscle spasm #14 08/17/24 tabs Allergies Allergy/AdvReac Type Severity Reaction Status Date / Time tomato Allergy Severe Nausea Verified 09/30/24 21:30 latex Allergy Intermediate itch Verified 09/30/24 21:30 insulin lispro Allergy Mild Rash Verified 09/30/24 21:30 codeine Allergy Vomiting Verified 09/30/24 21:30 Review of Systems ROS Status of ROS 10 or more systems reviewed and unremarkable except as noted in history and below [facility] Medical History (Updated 09/30/24 @ 21:40 by Mitch Ayala MD) Menopause ?Z78.0 - Asymptomatic menopausal state (ICD-10) Deep vein thrombosis ?I82.409 - Acute embolism and thrombosis of unspecified deep veins of unspecified lower extremity (ICD-10) Asthma ?J45.909 - Unspecified asthma, uncomplicated (ICD-10) Dyspnea on exertion ?R06.09 - Other forms of dyspnea (ICD-10) Nausea ?R11.0 - Nausea (ICD-10) Neuropathy ?G62.9 - Polyneuropathy, unspecified (ICD-10) CAD (coronary artery disease) ?I25.10 - Atherosclerotic heart disease of [place] coronary artery without angina pectoris (ICD-10) Toe necrosis ?I96 - Gangrene, not elsewhere classified (ICD-10) Diabetes ?E11.9 - Type 2 diabetes mellitus without complications (ICD-10) Diabetic foot ulcer ?E11.621 - Type 2 diabetes mellitus with foot ulcer (ICD-10) ?L97.509 - Non-pressure chronic ulcer of other part of unspecified foot with unspecified severity (ICD-10) Disorder of arteries and arterioles ?I77.9 - Disorder of arteries and arterioles, unspecified (ICD-10) Chronic osteomyelitis involving left ankle and foot ?M86.672 - Other chronic osteomyelitis, left ankle and foot (ICD-10) Gangrene ?I96 - Gangrene, not elsewhere classified (ICD-10) Surgical History (Updated 06/19/24 @ 13:36 by Clarissa Navarrete NP) History of appendectomy ?Z90.49 - Acquired absence of other specified parts of digestive tract (ICD-10) History of cholecystectomy ?Z90.49 - Acquired absence of other specified parts of digestive tract (ICD-10) History of arthroscopy of shoulder ?Z98.890 - Other specified postprocedural states (ICD-10) S/P arterial stent (~2002) ?Z95.9 - Presence of cardiac and vascular implant and graft, unspecified (ICD-10) Family History (Updated 06/19/24 @ 13:36 by Clarissa Navarrete NP) Other Family history of diabetes mellitus Family history of heart disease Family history of hypertension Family history of myocardial infarction Social History (Updated 06/19/24 @ 13:31 by Clarissa Navarrete NP) Within the past year, how often did you have a drink containing alcohol: never Score interpretation: A score less than 3 is consistent with normal alcohol consumption. Smoking status: Never smoker Non-prescribed substance use: denies use Highest level of school completed/degree received: high school graduate Little interest or pleasure in doing things: not at all Feeling down, depressed, or hopeless: not at all Exam Constitutional Vital Signs, click to edit/add: Last Vital Signs Temp 98.3 F 09/30/24 21:25 Pulse 94 H 09/30/24 21:25 Resp 20 09/30/24 21:25 BP 181/112 H 09/30/24 21:25 Pulse Ox 97 09/30/24 21:25 O2 Del Method Room Air 09/30/24 21:25 Common normals: no apparent distress, average body habitus, oriented x3, no limitations, healthy appearing, alert and well nourished [facility] Common normals: normocephalic and head/scalp atraumatic Eye Common normals: EOMs intact bilaterally and conjunctivae normal Respiratory Common normals: normal respiratory effort, no retractions, no use of accessory muscles and clear to auscultation bilaterally Cardio Common normals: regular rate, regular rhythm, S1 normal heart sound and S2 normal heart sound Extremity Other: partial avulsion tip of left great toe nail . also has small open wound at the site that is dry. no swelling. partial nail bed exposure. Neuro Common normals: oriented x3, CN's II-XII intact bilaterally and moves all extremities Psych Appearance: grossly normal Course Vital Signs Vital signs: Vital Signs Temperature 98.3 F 09/30/24 21:25 Pulse Rate 94 H 09/30/24 21:25 Respiratory Rate 20 09/30/24 21:25 Blood Pressure 181/112 H 09/30/24 21:25 Pulse Oximetry 97 09/30/24 21:25 Oxygen Delivery Method Room Air 09/30/24 21:25 Temperature 98.3 F 09/30/24 21:25 Pulse Rate 94 H 09/30/24 21:25 Respiratory Rate 20 09/30/24 21:25 Blood Pressure 181/112 H 09/30/24 21:25 Pulse Oximetry 97 09/30/24 21:25 Oxygen Delivery Method Room Air 09/30/24 21:25 MDM - Extremity (Nontraumatic) MDM Narrative Medical decision making narrative: presents with partial nail avulsion left great toe. Exposure of small amount of nail bed. No obvious infection. Patient concerned about infection as she is diabetic and has loss 2 toes on this same foot. Site dressed by nursing. Patient given a tetanus and discharged with a prescription for keflex and adivsed to follow up with her fundraiser Discharge Plan Discharge Chief Complaint: Extremity Problem, Nontraumatic Clinical Impression: Diabetic foot ulcer Patient Disposition: Home, Self-Care Prescriptions / Home Meds: No Action albuterol sulfate 90 mcg/actuation HFA aerosol inhaler 2 inh INHALATION PRN PRN (Reason: shortness of breath or wheezing) insulin lispro 100 unit/mL insulin pen 1 sliding scale dose SUBCUT TID insulin glargine U-300 conc [Toujeo SoloStar U-300 Insulin] 300 unit/mL (1.5 mL) insulin pen 95 unit SUBCUT QAM aspirin 81 mg capsule 81 mg PO DAILY atorvastatin 40 mg tablet 40 mg PO DAILY losartan 25 mg tablet 25 mg PO DAILY fluticasone propionate [Flovent HFA] 110 mcg/actuation HFA aerosol inhaler 3 puff INHALATION PRN PRN (Reason: bronchospasm) esomeprazole magnesium 40 mg capsule,delayed release(DR/EC) 40 mg PO Q24H glipizide 10 mg tablet 5 mg PO BID metformin 1,000 mg tablet 500 mg PO BID carvedilol 6.25 mg tablet 6.25 mg PO Q12H amoxicillin-pot clavulanate 875-125 mg tablet 1 tab PO Q12H Qty: 20 0RF sulfamethoxazole-trimethoprim [Bactrim DS] 800-160 mg tablet 1 tab PO BID Qty: 20 0RF ondansetron 4 mg tablet,disintegrating 4 mg PO Q6H PRN (Reason: nausea and vomiting) Qty: 20 0RF cyclobenzaprine 10 mg tablet 10 mg PO TID PRN (Reason: muscle spasm) Qty: 14 0RF famotidine 20 mg tablet 20 mg PO QPM nitroglycerin 0.4 mg tablet, sublingual 0.4 mg sublingual Q5M PRN (Reason: chest pain) fluticasone propionate 50 mcg/actuation spray,suspension 2 spray INTRANASAL DAILY hydrocodone-acetaminophen 5-325 mg tablet 1 tab PO Q6H PRN (Reason: pain) Print Language: Indonesian Instructions: Foot Ulcers in a Person with Diabetes (ED) Additional Instructions: follow up with your Instructional Developer this week for recheck Referrals: Shayy Ly MD [Primary Care Provider, Family Practice] - 1 week
[2024-09-30] MEDS: ADACEL DIPH,PERTUSS(ACELL),TET VAC/PF 0.5 ML ADULT SYRINGE IM (22:11)
[2024-09-30] MEDS: CEPHALEXIN 500 MG CAPSULE PO (22:11)
== END 2024-09-30 22:18 | disposition home or self-care (01) ==
PROVIDERS: Emergency Provider Internal Medicine; PCP Family Medicine
DX: E11.621 Type 2 diabetes mellitus with foot ulcer (principal); L97.529 Non-pressure chronic ulcer of other part of left foot with unspecified severity; Z79.4 Long term (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 of insulin; Z79.84 Long term (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 of oral hypoglycemic drugs; Z95.9 Presence of cardiac and vascular implant and graft, unspecified; Z90.49 Acquired absence of other specified parts of digestive tract; Z89.422 Acquired absence of other left toe(s); Z23 Encounter for immunization
CPT/HCPCS: 90471; 90715; 99283

== ENCOUNTER 2024-10-03 14:59 | Outpatient (OUT) | payer MEDICARE, MEDICAID, SELFPAY ==
--- OUTSIDE RECORDS SUMMARY | 2021-12-23 09:30 | XMS_ITS | Continuity of Care Document ---
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 Name Role Phone Debra Espino MD Unavailable Unavailable Allergies, Adverse Reactions, Alerts Substance Reaction Status Criticality codeine Upset stomach(severe) Active No Inf ormation latex Hives / Skin Rash(severe) Active No Information Medications Medication Instructions Dosage Effective Dates (start - stop) Status Comments metformin 1,000 mg tablet take 1 tablet by oral route 2 times every day with morning and evening meals 1000 MG - Active glipizide ER 10 mg tablet, extended release 24 hr take 2 tablet by oral route 2 times every day with breakfast 20 MG - Active Toujeo Max U-300 SoloStar 300 unit/mL (3 mL) subcutaneous insulin pen 75 units subcutaneous BID - Active Humalog Abhay KwikPen (U-100) 100 unit/mL subcutaneous half-unit pen inject by subcutaneous route as per insulin protocol 0.00 - Active clopidogrel 75 mg tablet take 1 tablet by oral route every day 75 MG - Active metoprolol succinate ER 25 mg tablet,extended release 24 hr take 1 tablet by oral route 2 times every day 25 MG - Active Vazalore 81 mg capsule take 1 capsule by oral route every day 81 MG - Active simvastatin 20 mg tablet take 1 tablet by oral route every day in the evening 20 MG - Active esomeprazole magnesium 40 mg capsule,delayed release take 1 capsule by oral route every day 40 MG - Active Gas-X Extra Strength 125 mg capsule 1 capsule BID PO - Active Proair Digihaler 90 mcg/actuation aerosol powder breath act, sensor inhale 2 puff by inhalation route every 4 - 6 hours as needed - Active Flovent HFA 110 mcg/actuation aerosol inhaler inhale 1 puff by inhalation route 2 times every day - Active ArmonAir Digihaler 55 mcg/actuation aerosol powder breath act, sensor inhale 2 puff by inhalation route 2 times every day - Active Procedures Procedure Date Ophthal DX Image Post Retina I And R Uni Or Bi OFFICE/OUTPATIENT VISIT, NEW Advance Directives Directive Yes / No Effective Date File Name No Information Encounters Encounter Description Practice Location Reason(s) For Visit Diagnoses Date Provider Providers Copied on Encounter OFFICE/OUTPATI ENT VISIT, [facility] , [address], [place], [address], [place] tel:[phone] RVA Andrew possible diabetic retinopathy (chief complaint) 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 [address], [place], [place], [id number], [place]. tel:[phone] Referring Provider: Bigg Rich, [address] [facility] [address], [place], [address]. tel:[phone] Family History Family Member Type Diagnosis Age At Onset Problem Family history of Diabetes m ellitus Problem Family history of hypertensi on Problem Family history of Cancer, un known Payers Payer name Insurance type Covered green party ID Authoriza tion(s) [facility] Comm Plan Dual Com [id number] Social History Type Description Quantity Date Captured [...]
--- OUTSIDE RECORDS SUMMARY | 2023-08-29 06:00 | XMS_ITS ---
Author Organization [facility] Address [address] [place] [address] Care Team Providers Care Manager Employee Relations Name Role Phone Shayy Ly M.D. Primary Care Provider Unavail able Narinder Alvarez Unavailable [phone] Allergies Allergen (clinical drug ingredient) Drug/Non Drug [...] 08/29/2023 Encounters Encounter Location Date Provider Diagnosis [facility] Office [address] [place] [address] [place] [address] 08/29/2023 Narinder Kim Other fracture of lower [...] Order Date SCC- WRIST 3 VIEW RIGHT [id number] 08/29/2023 SCC- PT/OT EVAL AND TREAT 3X/WEEK FOR 6 WEEKS 08/29/2023 Next Appt Details Follow Up: 5 WEEK S, Reason: Progress Notes * LAUREN DINHEDOB:1970 (53 yo F)Acc No.[id number]:08/29/2023 Patient: COLETTE MCKEON Provider: Diogenes Alvarez MD :1970 A ge:53 Y S ex:Female Date:08/29/2023 Address:[address] [place], [place] [id number] Pcp:Shayy Ly M.D. Subjective: * Chief Complaints: [...] 08/29/2023 Generated for Miki blanton/Krista/Rupertitting on: 0 10/03/2024 03:01 PM EDT History and Physical Notes * [...]
--- OUTSIDE RECORDS SUMMARY | 2023-10-03 06:40 | XMS_ITS ---
Author Organization [facility] Address [address] [place] [address] Care Team Providers Care Facial Operator Name Role Phone Shayy Ly M.D. Primary Care Provider Unavail Narinder Guo [facility] [phone] REASON FOR VISIT Right distal ulna fx Encounters Encounter Location Date Provider Diagnosis [facility] [facility] [address] [facility] [place] [address] [place] [address] 10/03/2023 Narinder Alvarez Plan Of Treatment No Information Progress Notes * LAUREN DINHEDOB:1970 (54 yo F)Acc No.[id number]:10/03/2023 Patient: COLETTE MCKEON Provider: Diogenes Alvarez MD :1970 A ge:53 Y S ex:Female Date:10/03/2023 Address:[facility] [address] [place], [id number] Pcp:Shayy Ly M.D. Subjective: * Chief Complaints: * 1 . Right distal ulna fx. * Medical History: Objective: * Vitals: Assessment: Plan: * Treatment: Forms: * Images: * Electronic signature of Jr Alvarez MD on 10/03/2024 at 03:01 PM EDT Sign off status: Pending * Provider: Diogenes Alvarez MD Date: 10/03/2023 Generated for Miki blanton/Krista/eTransmitting on: 10/03/2024 03:01 PM EDT
--- OUTSIDE RECORDS SUMMARY | 2023-10-10 07:00 | XMS_ITS ---
Author Organization [facility] Address [address] [place] [address] Care Team Providers Care Plastering Supervisor Name Role Phone Shayy Ly M.D. Primary Care Provider Unavail able Narinder Alvarez Unavailable [phone] Allergies Allergen (clinical drug ingredient) Drug/Non Drug Allergy documented on EMR Reaction Allergy Type Onset Date Status Latex latex (uncoded) Unknown Allergy Acti ve codeine codeine Unknown Drug Allergy Active REASON FOR VISIT Right distal ulna fx Medications Medication SIG (Take, Route, Frequency, Duration) Notes Start Date End Date Status lisinopril Active carvedilol Active NexIUM Active HumaLOG Active metFORMIN Active meloxicam Active aspirin Active Social History Tobacco Use: Social History Observation Description Date Details (start date - stop date) Never Smoker NA - NA Smoking History Question Answer Notes Smoking Status NonSmoker AUDIT-C (Standard) Question Answer Notes Did you have a drink containing alcohol in the p ast year? No Points 0 Interpretation Negative Vital Signs Height 5'2 in 10/10/2023 Weight 211 lbs 10/10/2023 BMI 38.59 10/10/2023 Encounters Encounter Location Date Provider Diagnosis [facility] Office [address] [place] [address] [place] [address] 10/10/2023 Narinder Alvarez Other fracture of lower end of right ulna, subsequent encounter for closed fracture with routine healing S52.691D Assessments Encounter Date Diagnosis (ICD Code) Assessment Notes Treatment Notes Treatment Clinical Notes Section Notes 10/10/2023 Other fracture of lower end of right ulna, subsequent encounter for closed fracture with routine healing (ICD-10 - S52.691D) 10/10/2023 Other Patient is doing well and has restored elbow just a few degrees of supination. She will continue with activities as tolerated. She will follow-up on an as-needed basis. Import medication Plan Of Treatment Treatment Notes Assessment Notes Other Patient is doing well and has restored elbow just a few degrees of supination. She will continue with activities as tolerated. She will follow-up on an as-needed basis. Import medication Next Appt Details Follow Up: prn, Reason: Progress Notes * LAUREN DINHEDOB:1970 (53 yo F)Acc No.[id number]:10/10/2023 Patient: COLETTE MCKEON Provider: Diogenes Alvarez MD :1970 A ge:53 Y S ex:Female Date:10/10/2023 Address:[address] [place] [address] , [facility] [place], [id number] Pcp:Shayy yL M.D. Subjective: * Chief Complaints: * R ight distal ulna fx * HPI: G eneral Follow Up Information: Patient presents today for follow-up of her right distal ulna fracture doing well. She reports not having pain. * Medical History: * Surgical History: N [...] I nterpretation N egative. * Medications: T akingmeloxicam aspirin HumaLOG metFORMIN lisinopril carvedilol NexIUM Medication List reviewed and reconciled with the patientTaking meloxicam Taking aspirin Taking HumaLOG Taking metFORMIN Taking lisinopril Taking carvedilol Taking NexIUM Medication List reviewed and reconciled with the patient * Allergies: l atexcodeineno[Allergies Verified] Objective: * Vitals: H t: 5'2 , Wt: 211 lbs, BMI:38.59. * Examination: G eneral examination: O n exam today she has no swelling or tenderness about the distal ulna. She has restored full pronation flexion and extension. She lacks just a few degrees of full supination compared to contralateral side. X -ray Imaging Studies: M RI Imaging Studies: Assessment: * Assessment: 1. O ther fracture of lower end of right ulna, subsequent encounter for closed fracture with routine healing - S52.691D (Primary) Plan: * Treatment: * Procedure Codes: * Follow Up: p rn Forms: * Images: * Sign off status: Completed true * Provider: Diogenes Alvarez MD Date: 0 10/10/2023 Generated for Miki blanton/Krista/Rupertitting on: 0 10/03/2024 03:01 PM EDT History and Physical Notes * HPI (History of Present Illness) Category Sub-Category Detail Notes Category Not es General Follow Up Information Patient presents tod ay for follow-up of her right distal ulna fracture doing well. She reports not having pain. Examination Category Sub-Category Detail Notes Category Not es General examination On exam today she has no swelling or tenderness about the distal ulna. She has restored full pronation flexion and extension. She lacks just a few degrees of full supination compared to contralateral side. X-ray Imaging Studies MRI Imaging Studies
--- OUTSIDE RECORDS SUMMARY | 2024-06-18 09:46 | XMS_ITS ---
Author Organization [facility] in [place] Address [address] [place] [address] Care Team Providers Care Public Relations Sales Marketing Name Role Phone None, Unknown or Primary Care Provider Unavailab Sadi Dugan [phone] Medications Medication SIG (Take, Route, Frequency, Duration) Notes Start Date End Date Status HYDROcodone-Acetaminophen 5-325 MG 1 tablet as needed Orally every 6 hrs prn for 7 days As needed 06/18/2024 Active Encounters Encounter Location Date Provider Diagnosis [facility] (PODIATRY) [address] [place] [address] [place] [address] 06/18/2024 Sadi Bruce Plan Of Treatment Medication Medication Name Sig Start Date Stop Date Notes HYDROcodone-Acetaminophen 5- 325 MG 1 tablet as needed Orally every 6 hrs prn for 7 days 06/18/2024 Progress Notes * Aura RAMOSeDOB:1970 (54 yo F)Acc No.[id number]:06/18/2024 Patient: Zoila MCKEON :1970 A ge:54 Y S ex:Female Address:[address], [place], [address] * Refills Start HYDROcodone-Acetaminophen Tablet, 5-325 MG, Orally, 28, 1 tablet as needed, every 6 hrs prn, 7 days, Refills=0 * true * Date: Generated for Printi ng/Faxing/eTransmitting on: 0 10/03/2024 03:01 PM EDT
--- OUTSIDE RECORDS SUMMARY | 2024-07-03 05:32 | XMS_ITS ---
Author Organization The [facility] in [place] Address [address] [place] [address] Care Team Providers Care Independent Driver Name Role Phone None, Unknown or Primary Care Provider Unavailab Sailaja Hoffman [phone] Medications Medication SIG (Take, Route, Frequency, Duration) Notes Start Date End Date Status HYDROcodone-Acetaminophen 5-325 MG 1-2 tablet as needed Orally every 6 hrs for 5 days 07/03/2024 Active Encounters Encounter Location Date Provider Diagnosis [facility] (PODIATRY) [address] [place] [address] [place] [address] 07/03/2024 Sailaja Messina Plan Of Treatment Medication Medication Name Sig Start Date Stop Date Notes HYDROcodone-Acetaminophen 5- 325 MG 1-2 tablet as needed Orally every 6 hrs for 5 days 07/03/2024 Progress Notes * Aura RAMOSeDOB:1970 (54 yo F)Acc No.[id number]:07/03/2024 Patient: Zoila MCKEON :1970 A ge:54 Y S ex:Female Address:[facility] [address], [place], [address] * Refills Start HYDROcodone-Acetaminophen Tablet, 5-325 MG, Orally, 20, 1-2 tablet as needed, every 6 hrs, 5 days, Refills=0 * true * Date: Generated for Printi ng/Faxing/eTransmitting on: 0 10/03/2024 03:01 PM EDT
--- OUTSIDE RECORDS SUMMARY | 2024-07-05 04:59 | XMS_ITS ---
Author Organization The [facility] in [place] Address [address] [place] [address] Care Team Providers Care It Auditor Name Role Phone None, Unknown or Primary Care Provider Unavailab Sadi Dugan [phone] REASON FOR VISIT Rx post op Medications Medication SIG (Take, Route, Frequency, Duration) Notes Start Date End Date Status Amoxicillin-Pot Clavulanate 875-125 MG 1 tablet Orally twice daily for 14 days 07/05/2024 Active HYDROcodone-Acetaminophen 5-325 MG 1 tablet as needed Orally every 6 hrs for 5 days 07/05/2024 Active Sulfamethoxazole-Trimethopr im 800-160 MG 1 tablet Orally twice daily for 14 days 07/05/2024 Active Encounters Encounter Location Date Provider Diagnosis [facility] (PODIATRY) [address] [place] [address] [place] [address] 07/05/2024 Sadi Bruce Plan Of Treatment Medication Medication Name Sig Start Date Stop Date Notes Amoxicillin-Pot Clavulanate 875-125 MG 1 tablet Orally twice daily for 14 days 07/05/2024 HYDROcodone-Acetaminophen 5- 325 MG 1 tablet as needed Orally every 6 hrs for 5 days 07/05/2024 Sulfamethoxazole-Trimethopri m 800-160 MG 1 tablet Orally twice daily for 14 days 07/05/2024 Progress Notes * FABRIZIOAura BarriosSebleOB:1970 (54 yo F)Acc No.[id number]:07/05/2024 Patient: Zoila MCKEON :1970 A ge:54 Y S ex:Female Address:[address], [place], [address] * Refills Start HYDROcodone-Acetaminophen Tablet, 5-325 MG, Orally, 20 Tablet, 1 tablet as needed, every 6 hrs, 5 days, Refills=0 Start Sulfamethoxazole-Trimethoprim Tablet, 800-160 MG, Orally, 28, 1 tablet, twice daily, 14 days, Refills=0 Start Amoxicillin-Pot Clavulanate Tablet, 875-125 MG, Orally, 28, 1 tablet, twice daily, 14 days, Refills=0 * true * Date: Generated for Miki blanton/Krista/Jh on: 0 10/03/2024 03:03 PM EDT
--- OUTSIDE RECORDS SUMMARY | 2024-10-03 15:01 | XMS_ITS | Patient Health Record ---
Author Organization [facility] [place] Address [address] [place] [address] Care Team Providers Care Director Systems Name Role Phone None, Unknown or Primary Care Provider Unavailab Jordyn Dugan Unavailable [phone] Fabián Messina Unavailable [phone] Allergies Allergen (clinical drug ingredient) Drug/Non Drug Allergy documented on EMR Reaction Allergy Type Onset Date Status codeine Codeine Unknown Drug Allergy Active Latex Latex Unknown Allergy Active Results Component Value Reference Range Notes XR foot LT min 3V (Not yet r eviewed by provider) Interpretation: Performing Lab: Notes/Report: Source Facility: [place] [address] XRay Report Signed Patient: ZOILA DINH MR#: [id number] : 1970 Acct:[id number] Age/Sex: 54 / F ADM Date: 04/27/24 Loc: EC Attending Dr: Jordyn Bruce D.P.M. Ordering Physician: Jordyn Bruce D.P.M. Date of Service: 04/27/24 Procedure(s): XR foot LT min 3V Accession Number(s): [id number] cc: Shayy Dela Cruz M.D.; Jordyn Bruce D.P.M. [place] [address] Patient Name: ZOILA DINH MRN: [id number] date: 1970 Sex: F Assigned Patient Location: EC Current Patient Location: EC Accession/Order Number: [id number] Exam Date: 04/27/2024 09:20 Report Date: 04/27/2024 [...] Signed By: 04/27/24 1350 DD/ 1347 TD/TT: Continuity Person: [place] [address] XRay Report Signed Patient: JULIA DINH MR#: [id number] : 1970 Acct:[id number] Age/Sex: 54 / F ADM Date: 04/27/24 Loc: EC Attending Dr: Jordyn Bruce D.P.M. Ordering Physician: Jordyn Bruce D.P.M. Date of Service: 04/27/24 Procedure(s): XR yanet t LT min 3V Accession Number(s): [id number] cc: Shayy Dela Cruz; Jordyn Bruce D.P.M. [place] [address] Patient Name: ZOILA DINH MRN: [id number] date: 1970 Sex: F Assigned Patient Loc ation: EC Current Patient Loca tion: EC Accession/Order Numb er: [id number] Exam Date: 09:20 Report Date: 04/27/2024 13:47 At the request of: JORDYN BRUCE Procedure: XR foot L T min 3V PROCEDURE: XR foot L T min 3V HISTORY: LEFT FOOT PAIN COMPARISON: XR foot left 04/19/2024 FINDINGS: BONES:Acute to subac deja transverse fracture through distal neck of second [...] Signed By: 04/27/24 1354 DD/ 1347 TD/TT: Continuity Person: foot LT wo con (Not yet r eviewed by provider) Interpretation: Performing Lab: Notes/Report: Source Facility: [place] [address] Magnetic Resonance Report Signed Patient: ZOILA DINH MR#: [id number] : 1970 Acct:[id number] Age/Sex: 54 / F ADM Date: 05/15/24 Loc: MRI Attending Dr: Jordyn Bruce D.P.M. Ordering Physician: Jordyn Bruce D.P.M. Date of Service: 05/15/24 Procedure(s): MR foot LT wo con Accession Number(s): [id number] cc: Shayy Dela Cruz M.D.; Jordyn Bruce D.P.M. [place] [address] Patient Name: ZOILA DINH MRN: [id number] date: 1970 Sex: F Assigned Patient Location: MRI Current Patient Location: MRI Accession/Order Number: [id number] Exam Date: 05/15/2024 14:45 Report Date: 05/15/2024 [...] Dictated By: Jake Pierson M.D. Signed By: 05/15/241649 DD/ 46 TD/TT: Continuity Person: [place] [address] Magnetic Resonance Report Signed Patient: JULIA DINH MR#: [id number] : 1970 Acct:[id number] Age/Sex: 54 / F ADM Date: 05/15/24 Loc: MRI Attending Dr: Jordyn Bruce D.P.M. Ordering Physician: Jordyn Bruce D.P.M. Date of Service: 05/15/24 Procedure(s): MR holt t LT wo con Accession Number(s): [id number] cc: Shayy Dela Cruz; Jordyn Bruce D.P.M. [address] [address] Patient Name: ZOILA DINH MRN: [id number] date: 1970 Sex: F Assigned Patient Loc ation: MRI Current Patient Loca tion: MRI Accession/Order Numb er: [id number] Exam Date: 05/15/2024 14:45 Report Date: 05/15/2024 [...] M.D. Signed By: 05/15/241649 DD/ 46 TD/TT: Continuity Person: CBC AUTO DIFF (Not yet revie wed by provider) Interpretation: Performing Lab: Notes/Report: [facility] , White Blood Count 7.2 4.0-11.0 [...] 3/uL Performing Lab: see note ML - [facility] CRP (Not yet reviewed by pro vider) Interpretation: Performing Lab: Notes/Report: [facility] , C Reactive Protein 1.26 <=0.50 mg/dL Performing Lab: see note - [facility] PROF CHEM 8 (BAS METB) (Not yet reviewed by provider) Interpretation: Performing Lab: Notes/Report: [facility] , Sodium 141 136-145 mmol/L Potassium [...] mg/dL Performing Lab: see note ML - [facility] Erythrocyte Sedimentation Ra te (Not yet reviewed by provider) Interpretation: Performing Lab: Notes/Report: [facility] , Erythrocyte Sedimentation Rate 28 <=30 mm/hr Performing Lab: see note - [facility] CBC AUTO DIFF (Not yet revie wed by provider) Interpretation: Performing Lab: Notes/Report: [facility] , White Blood Count 6.3 4.0-11.0 [...] Performing Lab: see note ML - [facility] LB XR foot LT min 3V (Not yet r eviewed by provider) Interpretation: Performing Lab: Notes/Report: Source Facility: [facility] [place] [address] [place] [address] XRay Report Signed Patient: ZOILA DINH MR#: [id number] : 1970 Acct:[id number] Age/Sex: 54 / F ADM Date: 06/13/24 Loc: Attending Dr: Fabián Messina Ordering Physician: Fabián Messina Date of Service: 06/13/24 Procedure(s): XR foot LT min 3V Accession Number(s): [id number] cc: Shayy Dela Cruz M.D.; Fabián Messina [place] [id number] Patient Name: ZOILA DINH MRN: [id number] date: 1970 Sex: F Assigned Patient Location: Current Patient Location: Accession/Order Number: [id number] Exam Date: 06/13/2024 13:08 Report Date: 06/14/2024 [...] Signed By: 06/14/24 1004 DD/ 1001 TD/TT: Continuity Person: [place] [address] XRay Report Signed Patient: JULIA DINH MR#: [id number] : 1970 Acct:[id number] Age/Sex: 54 / F ADM Date: 06/13/24 Loc: Attending Dr: Harriet Messina Ordering Physician: Fabián Messina Date of Service: 06/13/24 Procedure(s): XR yanet t LT min 3V Accession Number(s): [id number] cc: Shayy Dela Cruz; Fabián Messina The [place] [address] Patient Name: ZOILA DINH MRN: [id number] date: 1970 Sex: F Assigned Patient Loc ation: WC Current Patient Location: Accession/Order Numb er: [id number] Exam Date: 06/13/2024 13:08 Report Date: 06/14/2024 [...] Signed By: 06/14/24 1004 DD/ 1001 TD/TT: Continuity Person: PROF TAN 8 (BAS METB) (Not yet reviewed by provider) Interpretation: Performing Lab: Notes/Report: [facility] , Sodium 137 136-145 mmol/L Potassium [...] mg/dL Performing Lab: see note - [facility] LB PTT (Not yet reviewed by pro vider) Interpretation: Performing Lab: Notes/Report: [facility] , Partial Thromboplastin Time 25.3 22.3-36.2 sec Performing Lab: see note - [facility] Prothrombin Time INR (Not ye t reviewed by provider) Interpretation: Performing Lab: Notes/Report: [facility] , Prothrombin Time 10.7 9.0-11.6 sec INR 1.01 2.5-3.5 FOR PROSTHETIC HEART VALVE REPLACEMENT DESIRED INR: 2.0-3.0 CONDITIONS NOT LISTED BELOW 2.5-3.5 RECURRENT THROMBOSIS Performing Lab: see note - [facility] ECG 12 lead (Not yet reviewe d by provider) Interpretation: Performing Lab: Notes/Report: Source Facility: [place] [address] Electrocardiograph Report Signed Patient: ZOILA DINH MR#: [id number] : 1970 Acct:[id number] Age/Sex: 54 / F ADM Date: 06/19/24 Loc: [facility] Attending Dr: Jordyn Bruce D.P.M. Ordering Physician: Jordyn Bruce D.P.M. 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 Ordering Physician: Jordyn Bruce D.P.M. 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1970 Req uested By: SHAYY DELA CRUZ Order Number: [id number] Reading MD: HUSAM ABEL Measurements Intervals [place] Rate: 84 P: 15 CT: 167 QRS: -58 QRSD: 117 T: 103 QT: 395 QTc: 469 Interpretive Statements SINUS RHYTHM MARKED LEFT AXIS DEV IATION [QRS AXIS < -30] LEFT VENTRICULAR HYPERTROPHY AND ST-T CHANGE [VOLTAGE CRITERIA PLUS ST/T ABNORMALITY] POSSIBLE ANTEROSEPTA L MYOCARDIAL INFARCTION [30 ms Q WAVE IN V1-V4], OF INDETERMINATE AGE Electronically Jacqueline d On 06-20-2024 7:09:24 EST by HUSAM ABEL Dictated By: Jorge Alberto Abel.OCoretta Signed By: 06/20/24 0709 DD/ 1348 TD/TT: Continuity Person: JULIA adkins 2V (Not yet reviewe d by provider) Interpretation: Performing Lab: Notes/Report: Source Facility: [facility] [place] [address] [place] [address] XRay Report Signed Patient: ZOILA DINH MR#: [id number] : 1970 Acct:[id number] Age/Sex: 54 / F ADM Date: 06/19/24 Loc: PST Attending Dr: Jordyn Bruce D.P.M. Ordering Physician: Jordyn Bruce D.P.M. Date of Service: 06/19/24 Procedure(s): XR chest 2V Accession Number(s): [id number] cc: Shayy Dela Cruz M.D.; Jordyn Bruce D.P.M. [place] [address] Patient Name: ZOILA DINH MRN: [id number] date: 1970 Sex: F Assigned Patient Location: [facility] Current Patient Location: [facility] Accession/Order Number: [id number] Exam Date: 06/19/2024 14:34 Report Date: 06/19/2024 [...] Aliyah Nicole M.D.06/19/2024 2:37 PM Dictation Location: [place] [address] Electronically authenticated by: [id number] Y Date: 06/19/2024 14:37 Dictated By: Aliyah Nicole M.D. Signed By: 06/19/24 1440 DD/ 1437 TD/TT: Continuity Person: [place] [address] XRay Report Signed Patient: JULIA DINH MR#: [id number] : 1970 Acct:[id number] Age/Sex: 54 / F ADM Date: 06/19/24 Loc: PST Attending Dr: Jordyn Bruce D.P.M. Ordering Physician: Jordyn Bruce D.P.M. Date of Service: 06/19/24 Procedure(s): XR chest 2V Accession Number(s): [id number] cc: Shayy Dela Cruz; Jordyn Bruce D.P.M. [place] [address] Patient Name: ZOILA DINH MRN: [facility]:[id number] date: 1970 Sex: F Assigned Patient Loc ation: [facility] Current Patient Loca tion: [facility] Accession/Order Numb er: [id number] Exam Date: 06/19/2024 14:34 Report Date: 06/19/2024 [...] Aliyah Nicole M.D.06/19/2024 2:37 PM Dictation Location: [place] [address] Electronically authenticated by: [id number] Y Date: 06/19/2024 14:37 Dictated By: Aliyah Nicole M.D. Signed By: 06/19/24 1440 DD/ 1437 TD/TT: Continuity Person: AF[employer] Specimen Processing (Not yet reviewed by [...] Fast Culture Acid Fast Culture Performed at: [facility] Specimen has been received and testing has been initiated. Acid Fast Culture Acid Fast Culture [address], [place] [id number] Specimen has been received and testing has been initiated. Acid Fast Culture Acid Fast Culture Wastewater Technician: Klarissa Jacobs PhD, Phone: [phone] Specimen has been received and testing has been initiated. Acid Fast Culture Performing Lab: see note SEE REPORT - [employer] Id information not found for OBX-specific zone maintenance technician legend LC - [facility] Tissue Culture (Not [...] provider) Interpretation: Performing Lab: Notes/Report: Source Facility: [place] [address] XRay Report Signed Patient: ZOILA DINH MR#: [id number] : 1970 Acct:[id number] Age/Sex: 54 / F ADM Date: 07/05/24 Loc: SURGOUT Attending Dr: Jordyn Bruce D.P.M. Ordering Physician: Jordyn Bruce D.P.M. Date of Service: 07/05/24 Procedure(s): XR foot LT min 3V Accession Number(s): [id number] cc: Shayy Dela Cruz M.D.; Jordyn Bruce D.P.M. [place] [address] Patient Name: ZOILA DINH MRN: [id number] date: 1970 Sex: F Assigned Patient Location: [facility] Current Patient Location: Accession/Order Number: [id number] Exam Date: 07/05/2024 22:49 Report Date: 07/05/2024 [...] Hui Jr., D.O.07/05/2024 10:52 PM Dictation Location: [place] [address] Electronically authenticated by: [id number] Y Date: 07/05/2024 22:52 Dictated By: Camilo Hui M.D. Signed By: 07/05/242253 DD/ 51 TD/TT: Continuity Person: [place] [address] XRay Report Signed Patient: JULIA DINH MR#: [id number] : 1970 Acct:[id number] Age/Sex: 54 / F ADM Date: 07/05/24 [facility]: Jordyn Bruce D.P.M. Ordering Physician: Jordyn Bruce D.P.M. Date of Service: 07/05/24 Procedure(s): XR yanet t LT min 3V Accession Number(s): [id number] cc: Shayy Dela Cruz; Jordyn Bruce D.P.M. [place] [address] Patient Name: ZOILA DINH MRN: [id number] date: 1970 Sex: F Assigned Patient Loc ation: SURGOUT Current Patient Location: Accession/Order Tristan er: [id number] Exam Date: 07/05/2024 22:49 Report Date: 07/05/2024 [...] Hui Jr., D.O.07/05/2024 10:52 PM Dictation Location: [place] [address] Electronically authenticated by: [id number] Y Date: 07/05/2024 22:52 Dictated By: Camilo Hui M.D. Signed By: 07/05/24 2254 DD/ 2252 TD/TT: Continuity Person: AF[employer] Specimen Processing (Not yet reviewed by [...] hours. Tissue Culture Tissue Culture Performed at: [facility] Tissue Culture Tissue Culture [address] [place] [id number] Tissue Culture Tissue Culture Wastewater Technician: Klarissa Jacobs PhD, Phone: [phone] Tissue Culture Tissue Culture Tissue Culture Tissue Culture * This is a correcte d result. * Tissue Culture Tissue Culture Tissue Culture Tissue Culture A prior result that was reported as final has been changed. Tissue Culture Performing Lab: see note SEE REPORT - [employer] Manager Id information not found for OBX-specific zone maintenance technician legend [facility] Fungus Stain (Not yet review ed by provider) Interpretation: Performing Lab: Notes/Report: [facility] , Fungus Stain See Below For Report Fungus Stain Fungus Stain Please refer to the following specimen for additional lab results. Fungus Stain Fungus Stain see [id number] Fungus Stain Performing Lab: see note - [facility] SEE REPORT - [employer] Manager Id information not found for OBX-specific zone maintenance technician legend Gram Stain Result (Not yet r eviewed by provider) Interpretation: Performing Lab: Notes/Report: [facility] , Gram Stain Result See Below For Report Gr am Stain Result Gram Stain Result Please refer to the following specimen for additional lab results. Gram Stain Result Gram Stain Result see [id number] Gram St ain Result Performing Lab: see note SEE REPORT - [employer] Manager Id information not found for OBX-specific zone maintenance technician legend - [facility] Anaerobic Cult, Extended Inc [...] Performing Lab: see note - [facility] Gram Stain Result (Not [...] Lab: see note LC - [facility] Fungus (Mycology) Culture (N ot yet reviewed by provider) Interpretation: Performing Lab: Notes/Report: [facility] , Fungus (Mycology) Culture See Below For Report Fungus (Mycology) Culture Please refer to the following specimen for additional lab results. Fungus (Mycology) Culture see [id number] Fungus (Mycology) Culture Please refer to the following specimen for additional lab results. Performing Lab: see note SEE REPORT - [employer] Manager Id information not found for OBX-specific zone maintenance technician legend LC - [facility] Fungus Stain (Not yet review ed by provider) Interpretation: Performing Lab: Notes/Report: [facility] , Fungus Stain See Below For Report Fungus Stain Fungus Stain Please refer to the following specimen for additional lab results. Fungus Stain Fungus Stain see [id number] Fungus Stain Performing Lab: see note SEE REPORT - [employer] Manager Id information not found for OBX-specific zone maintenance technician legend LC - [facility] CBC AUTO DIFF (Not yet revie wed by provider) Interpretation: Performing Lab: Notes/Report: [facility] , White Blood Count 8.8 4.0-11.0 [...] 10 3/uL Performing Lab: see note - [facility] PROF CHEM 8 (BAS METB) (Not yet reviewed by provider) Interpretation: Performing Lab: Notes/Report: [facility] , Sodium 140 136-145 mmol/L Potassium [...] mg/dL Performing Lab: see note - [facility] LB VC SEGMENTAL PRESSURES (Not yet reviewed by provider) Interpretation: Performing Lab: Notes/Report: Source Facility: [facility] [place] [address] [place] [address] Vein Report Signed Patient: ZOILA DINH MR#: [id number] : 1970 Acct:[id number] Age/Sex: 54 / F ADM Date: 05/09/24 Loc: VC Attending Dr: Jordyn Bruce D.P.M. Ordering Physician: Jordyn Bruce D.P.M. Date of Service: 05/09/24 Procedure(s): VC SEGMENTAL PRESSURES Accession Number(s): [id number] cc: Shayy Dela Cruz M.D.; Jordyn Bruce D.P.M. [place] [address] Patient Name: ZOILA DINH MRN: [id number] date: 1970 Sex: F Assigned Patient Location: VC Current Patient Location: VC Accession/Order Number: [id number] Exam Date: 05/09/2024 13:04 Report Date: 05/09/2024 14:53 At the request of: JORDYN BRUCE Procedure: VC SEGMENTAL PRESSURES EXAM: VC SEGMENTAL PRESSURES HISTORY: R09.89 COMPARISON: None. FINDINGS: Segmental pressures presented as follows (right, left) in mmHg. Brachial: 132, N/A Lower thigh: 178, 201 Calf: 179, 174 DPA: 248, 234 [employer] [employer] MAIL DRIVER: 259, 113 1st Toe: 86, 103 HIEU: [...] Dictated By: John Javed M.D. Signed By: 05/09/241454 DD/ 52 TD/TT: Continuity Person: [place] [address] Vein Report Signed Patient: JULIA DINH MR#: [id number] : 1970 Acct:[id number] Age/Sex: 54 / F ADM Date: 05/09/24 Loc: VC Attending Dr: Jordyn Bruce D.P.M. Ordering Physician: Jordyn Bruce D.P.M. Date of Service: 05/09/24 Procedure(s): VC SEG MENTAL PRESSURES Accession Number(s): [id number] cc: Shayy Dela Cruz; Jordyn Bruce D.P.M. [place] [address] Patient Name: ZOILA DINH MRN: [id number] date: 1970 Sex: F Assigned Patient Loc ation: VC Current Patient Loca tion: VC Accession/Order Numb er: [id number] Exam Date: 05/09/2024 13:04 Report Date: 05/09/2024 14:53 At the request of: JORDYN BRUCE Procedure: VC SEGMEN OZZY PRESSURES EXAM: VC SEGMENTAL PRESSURES HISTORY: R09.89 COMPARISON: None. FINDINGS: Segmental pressures presented as follows (right, left) in mmHg. Brachial: 132, N/A Lower thigh: 178, 201 Calf: 179, 174 DPA: 248, 234 [employer] MAIL DRIVER: 259, 113 1st Toe: 86, 103 HIEU: [...] Dictated By: Matt Javed M.D. Signed By: 05/09/241454 DD/ 52 TD/TT: Continuity Person: MR collins soares (Not yet reviewed by provider) Interpretation: Performing Lab: Notes/Report: Source Facility: [facility] [place] [address] [place] [address] Magnetic Resonance Report Signed Patient: ZOILA DINH MR#: [id number] : 1970 Acct:[id number] Age/Sex: 54 / F ADM Date: 03/21/24 Loc: MRI Attending Dr: Jordyn Bruce D.P.M. Ordering Physician: Jordyn Bruce D.P.M. Date of Service: 03/21/24 Procedure(s): MR ankle RT wo con Accession Number(s): [id number] cc: Shayy Dela Cruz M.D.; Jordyn Bruce D.P.M. [place] [address] Patient Name: ZOILA DINH MRN: [id number] date: 1970 Sex: F Assigned Patient Location: MRI Current Patient Location: Accession/Order Number: [id number] Exam Date: 03/21/2024 09:55 Report Date: 03/24/2024 [...] Marques M.D. Signed By: 03/24/2456 DD/ TD/TT: Continuity Person: [place] [address] Magnetic Resonance Report Signed Patient: JULIA DINH MR#: [id number] : 1970 Acct:[id number] Age/Sex: 54 / F ADM Date: 03/21/24 Loc: MRI Attending Dr: Jordyn Bruce D.P.M. Ordering Physician: Jordyn Bruce D.P.M. Date of Service: 03/21/24 Procedure(s): MR fred singh RT wo con Accession Number(s): [id number] cc: Shayy Dela Cruz; Jordyn Bruce D.P.M. [address] [address] Patient Name: ZOILA DINH MRN: [id number] date: 1970 Sex: F Assigned Patient Loc ation: MRI Current Patient Location: Accession/Order Numb er: [id number] Exam Date: 4 09:55 Report Date: 03/24/2024 06:53 At the [...] M.D. Signed By: 03/24/2456 DD/ 2 TD/TT: Continuity Person: XR foot LT min 3V (Not yet r eviewed by provider) Interpretation: Performing Lab: Notes/Report: Source Facility: [place] [address] XRay Report Signed Patient: ZOILA DINH MR#: [id number] : 1970 Acct:[id number] Age/Sex: 54 / F ADM Date: 08/10/24 Loc: Attending Dr: Jordyn Bruce D.P.M. Ordering Physician: Jordyn Bruce D.P.M. Date of Service: 08/10/24 Procedure(s): XR foot LT min 3V Accession Number(s): [id number] cc: Shayy Dela Cruz M.D.; Jordyn Bruce D.P.M. [place] [address] Patient Name: ZOILA DINH MRN: [facility]:[id number] date: 1970 Sex: F Assigned Patient Location: Current Patient Location: Accession/Order Number: [id number] Exam Date: 08/10/2024 11:50 Report Date: 08/10/2024 [...] Yoni Callahan M.D.08/10/2024 11:55 AM Dictation Location: [place] [address] Electronically authenticated by: [id number] Y Date: 08/10/2024 11:55 Dictated By: Yoni Callahan D.O. Signed By: 08/10/24 1157 DD/ 1155 TD/TT: Continuity Person: [place] [address] XRay Report Signed Patient: JULIA DINH MR#: [id number] : 1970 Acct:[id number] Age/Sex: 54 / F ADM Date: 08/10/24 Loc: [facility] Attending Dr: Jordyn Bruce D.P.M. Ordering Physician: Jordyn Bruce D.P.M. Date of Service: 08/10/24 Procedure(s): XR yanet t LT min 3V Accession Number(s): [id number] cc: Shayy Dela Cruz; Jordyn Bruce D.P.M. [place] [address] Patient Name: ZOILA DINH MRN: [id number] date: 1970 Sex: F Assigned Patient Loc ation: Current Patient Loca tion: Accession/Order Numb er: [id number] Exam Date: 08/10/2024 11:50 Report Date: 08/10/2024 [...] Yoni Callahan M.D.08/10/2024 11:55 AM Dictation Location: [place] [address] Electronically authenticated by: [id number] Y Date: 08/10/2024 11:55 Dictated By: Donte Callahan D.O. Signed By: 08/10/24 1157 DD/ 1155 TD/TT: Continuity Person: Reason For Referral Reason evaluation and treat ment -- see attached order Diagnosis 1 Strain of right Achi lles tendon, initial encounter (S86.011A) Referral Organization [facility] (PODIATRY) Referring Provider First Name Jordyn Referring Provider Last Name [facility] [place] Referring Provider Speciality Podiatry Referred Provider [facility], Physical Therap y Referred Provider Specialty Physical Med icine and Rehabilitation Referral Priority Routine Reason Right Achilles strai n Right Achilles partial tear Diagnosis 1 Strain of right Achi lles tendon, subsequent encounter (S86.011D) Referral Organization [facility] (PODIATRY) Referring Provider First Name Jordyn Referring Provider Last Name [facility] [place] Referring Provider Speciality Podiatry Referred Provider Specialty Physical The rapist Referral Priority Routine Reason Right Achilles tear Diagnosis 1 Type 2 diabetes holli itus with diabetic polyneuropathy (E11.42) Diagnosis 2 Strain of right Achi lles tendon, subsequent encounter (S86.011D) Referral Organization [facility] (PODIATRY) Referring Provider First Name Jordyn Referring Provider Last Name [facility] [place] Referring Provider [facility] Referred Provider Specialty Physical The rapist Referral Priority Routine Medications Medication SIG (Take, Route, Frequency, Duration) Notes Start Date End Date Status Dexcom G7 [employer] - USE 4 TIMES A DAY A [...] Problem Status W/U Status Risk Notes Problem [id number] Type 2 diabetes mellitus with diabetic polyneuropathy (E11.42) Active confirmed Problem Foot ulcer due to type 2 diabetes mellitus ([id number]) Type 2 diabetes mellitus with foot ulcer (E11.621) Active confirmed Problem [id number] Other acute osteomyelitis, left ankle and foot (M86.172) Active confirmed Problem Ulcer of left foot (disorder) (952026410) Chronic ulcer of left foot limited to [...] Encounters Encounter Location Date Provider Diagnosis [facility] (PODIATRY) [address] [place] [address] [place] [address] 10/28/2023 Jordyn Bruce [facility] (PODIATRY) [address] [place] [address] [place] [address] 03/19/2024 Jordyn Bruce [facility] (PODIATRY) [address] [place] [address] [place] [address] 04/20/2024 Jordyn Bruce [facility] (PODIATRY) [address] [place] [address] [place] [address] 04/30/2024 Jordyn Bruce [facility] (PODI[facility]RY) [address] [place] [address] [place] [address] 05/08/2024 Jordyn Bruce [facility] (PODIATRY) [address] [place] [address] [place] [address] 06/18/2024 Jordyn Bruce Other acute osteomyelitis, left ankle and foot M86.172 [facility] (PODIATRY) [address] [place] [address] [place] [address] 06/18/2024 Jordyn Bruce Other acute osteomyelitis, left ankle and foot M86.172 [facility] (POD[facility]) [address] [place] [address] [place] [address] 06/18/2024 Jordyn Bruce [facility] (POD[facility]) [address] [place] [address] [place] [address] 07/03/2024 Fabián Messina [facility] (POD[facility]) [address] [place] [address] [place] [address] 07/05/2024 Jordyn Bruce [facility] (POD[facility]) [address] [place] [address] [place] [address] 10/04/2023 Jordyn Bruce Strain of right Achilles tendon, initial encounter S86.011A [facility] (PODIATRY) [address] [place] [address] [place] [address] 11/15/2023 Jordyn Bruce Strain of right Achilles tendon, subsequent encounter S86.011D [facility] (PODIATRY) [address] [place] [address] [place] [address] 01/24/2024 Jordyn Bruce Strain of right Achilles tendon, initial encounter S86.011A and Strain of right Achilles tendon, subsequent encounter S86.011D [facility] (PODIATRY) [address] [place] [address] [place] [address] 03/07/2024 Jordyn Bruce Strain of right Achilles tendon, initial encounter S86.011A ; Type 2 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 and Strain of right Achilles tendon, subsequent encounter S86.011D [facility] (PODIATRY) [address] [place] [address] [place] [address] 04/04/2024 Jordyn Bruce Strain of right Achilles tendon, initial encounter S86.011A and Type 2 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 [facility] (PODIATRY) [address] [place] [address] [place] [address] 04/27/2024 Jordyn Bruce Other acute osteomyelitis, left ankle and foot M86.172 ; Type 2 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 ; Left foot pain M79.672 and Strain of right Achilles tendon, initial encounter S86.011A [facility] (PODIATRY) [address] [place] [address] [place] [address] 05/16/2024 Jordyn Bruce Other acute osteomyelitis, left [...] in her boot today. She was prescribed Woodrow but stated that it made her extremely [...] MEDIBLUE DUAL ADV PRIMARY MEDICARE [address] [place] [address] [id number] [facility] 0 Zoila Dinh Self - patient is the insured MEDICAID [place] 2ND INS [address] [facility] [address] [place], [place] [id number] Zoila Dinh Self - patient is the insured Medical (General) History Medical History History ICD Code diabetes arthritis cardiovascular disease obesity Surgical History Surgery Date(Month/Year) appendectomy cholecystectomy right shoulder surgery
--- OUTSIDE RECORDS SUMMARY | 2024-10-03 15:01 | XMS_ITS | Clinical Summary ---
Author Organization [facility] tem Address [id number] [address] [place] [address] Care Team Providers Care Family Welfare Social Work Professor Name Role Phone Unavailable Primary Care Provider [...]
--- OUTSIDE RECORDS SUMMARY | 2024-10-03 15:02 | XMS_ITS | Clinical Summary ---
Author Organization [facility] Address [address] [place] [address] Care Team Providers Care Commercial Technician Name Role Phone Unavailable Primary Care Provider [...]
--- OUTSIDE RECORDS SUMMARY | 2024-10-03 15:02 | XMS_ITS | Referral Summary ---
Author Organization [facility] Address [address] [place] [address] Care Team Providers Care Junior Linux Administrator Name Role Phone Shayy Ly MD Primary Care Provider [phone] Allergies Active Allergy Reactions Criticality Noted Date [...] (Lopressor) 25 mg tabletIndications:Yordan nary arteriosclerosis in [place] artery,Essential hypertension Take 1 tablet (25 mg) by mouth in the morning and at bedtime. 180 tablet 3 05/19/2022 Active Additional Information Patient not taking.Reported on 06/19/2024 atorvastatin (Lipitor) 40 mg tabletIndications:Athe rosclerosis of kake coronary artery of [place] heart without angina pectoris,Mixed hyperlipidemia Take 1 [...] B/P log Sinusitis 03/24/2022 Coronary arteriosclerosis in [place] artery 06/30 Assessment & Plan (05/19/2022 10:43 [...] of Treatment Not on file Care Teams Junior Linux Administrator Relationship Specialty Start Date End Date [facility] Ly [facility] 05/19/22
--- OUTSIDE RECORDS SUMMARY | 2024-10-03 15:02 | XMS_ITS | Clinical Summary ---
Author Organization [facility] Address [address] [place] [address] Care Team Providers Care Turret Lathe Machinist Name Role Phone Shayy Ly MD Primary Care Provider [phone] Allergies Active Allergy Reactions Criticality Noted Date [...] (Lopressor) 25 mg tabletIndications:Yordan nary arteriosclerosis in [place] artery,Essential hypertension Take 1 tablet (25 mg) by mouth in the morning and at bedtime. 180 tablet 3 05/19/2022 Active Additional Information Patient not taking.Reported on 06/19/2024 atorvastatin (Lipitor) 40 mg tabletIndications:Athe rosclerosis of [place] coronary artery of [place] heart without angina pectoris,Mixed hyperlipidemia Take 1 [...] B/P log Sinusitis 03/24/2022 Coronary arteriosclerosis in [place] artery 06/30 Assessment & Plan (05/19/2022 10:43 [...] age to complete this topic Care Teams Turret Lathe Machinist Relationship Specialty Start Date End Date Shayy Ly MD [address] [facility]A PCP - General 05/19/22
--- OUTSIDE RECORDS SUMMARY | 2024-10-03 15:04 | XMS_ITS | Patient Health Record ---
Author Organization [facility] Address [address] [place] [address] Care Team Providers Care Home Service Director Name Role Phone Shayy Ly M.D. Primary Care Provider Unavail able Narinder Alvarez Unavailable [phone] Allergies Allergen (clinical drug ingredient) Drug/Non Drug [...] Problem Status W/U Status Risk Notes Problem [id number] Other fracture of lower end of right ulna, subsequent encounter for closed fracture with routine healing (S52.691D) Active confirmed Vital Signs Height 5'2 in 10/10/2023 Weight 211 lbs 10/10/2023 BMI 38.59 10/10/2023 Encounters Encounter Location Date [facility] [address] [place] [address] [place] [address] 10/10/2023 Narinder Alvarez Other fracture of lower [...] Order Date SCC- WRIST 3 VIEW RIGHT [id number] 05/16/2023 SCC- WRIST 3 VIEW RIGHT [id number] 08/29/2023 SCC- PT/OT EVAL AND TREAT 3X/WEEK FOR 6 WEEKS 08/29/2023 Insurance Providers Payer Name Payer Address Payer Phone Subscriber Number Group Number Insured Name Patient Relationship to Insured Coverage Start Date Coverage End Date Medicare [employer] [address] [place] [address] [id number] COLETTE DINH Self - patient [facility] the [facility] [address] [place] [address] [id number] COLETTE DINH Self - patient is the insured Medical (General) History Medical History History ICD Code Asthma/COPD Heart Attack Diabetes High Blood Pressure Latex Allergy Drug Allergies
== END 2024-10-03 15:00 | disposition home or self-care (01) ==
LOC: WC 14:59
PROVIDERS: PCP Family Medicine; Visit Provider Podiatrist Foot & Ankle Surgery
DX: E11.621 Type 2 diabetes mellitus with foot ulcer (principal); L97.521 Non-pressure chronic ulcer of other part of left foot limited to breakdown of skin
CPT/HCPCS: G0463

== ENCOUNTER 2024-11-21 12:51 | Outpatient (OUT) | payer MEDICARE, MEDICAID, SELFPAY ==
--- OUTSIDE RECORDS SUMMARY | 2023-10-03 06:40 | XMS_ITS ---
Author Organization [facility] Address [address] [place] [address] Care Team Providers Care Terminal Make Up Operator Name Role Phone Shayy Ly M.D. Primary Care Provider Unavail Narinder Guo [facility] [phone] REASON FOR VISIT Right distal ulna fx Encounters Encounter Location Date Provider Diagnosis [facility] [facility] [address] [facility] [place] [address] 10/03/2023 Narinder Alvarez Plan Of Treatment No Information Progress Notes * LAUREN DINHEDOB:1970 (54 yo F)Acc No.[id number]:10/03/2023 Patient: COLETTE MCKEON Provider: Diogenes Alvarez MD :1970 A ge:53 Y S ex:Female Date:10/03/2023 Address:[facility] [address] [place], [id number] Pcp:Shayy Ly M.D. Subjective: * Chief Complaints: * 1 . Right distal ulna fx. * Medical History: Objective: * Vitals: Assessment: Plan: * Treatment: Forms: * Images: * Electronic signature of Jr Alvarez MD on 11/21/2024 at 12:54 PM EDT Sign off status: Pending * Provider: Diogenes Alvarez MD Date: 10/03/2023 Generated for Miki blanton/Krista/eTransmitting on: 11/21/2024 12:54 PM EDT
--- OUTSIDE RECORDS SUMMARY | 2024-06-18 09:46 | XMS_ITS ---
Author Organization [facility] in [place] Address [address] [place] [address] Care Team Providers Care Brim Presser Name Role Phone None, Unknown or Primary Care Provider Unavailab Sadi Dugan [phone] Medications Medication SIG (Take, Route, Frequency, Duration) Notes Start Date End Date Status HYDROcodone-Acetaminophen 5-325 MG 1 tablet as needed Orally every 6 hrs prn for 7 days As needed 06/18/2024 Active Encounters Encounter Location Date Provider Diagnosis [facility] (PODIATRY) [address] [place] [address] [place] [address] 06/18/2024 Sadi Bruce Plan Of Treatment Medication Medication Name Sig Start Date Stop Date Notes HYDROcodone-Acetaminophen 5- 325 MG 1 tablet as needed Orally every 6 hrs prn for 7 days 06/18/2024 Progress Notes * Aura RAMOSeDOB:1970 (54 yo F)Acc No.[id number]:06/18/2024 Patient: Zoila MCKEON :1970 A ge:54 Y S ex:Female Address:[address], [place], [address] * Refills Start HYDROcodone-Acetaminophen Tablet, 5-325 MG, Orally, 28, 1 tablet as needed, every 6 hrs prn, 7 days, Refills=0 * true * Date: Generated for Printi ng/Faxing/eTransmitting on: 0 11/21/2024 12:53 PM EDT
--- OUTSIDE RECORDS SUMMARY | 2024-07-03 05:32 | XMS_ITS ---
Author Organization The [facility] in [place] Address [address] [place] [address] Care Team Providers Care Feed And Farm Management Adviser Name Role Phone None, Unknown or Primary Care Provider Unavailab Sailaja Hoffman [phone] Medications Medication SIG (Take, Route, Frequency, Duration) Notes Start Date End Date Status HYDROcodone-Acetaminophen 5-325 MG 1-2 tablet as needed Orally every 6 hrs for 5 days 07/03/2024 Active Encounters Encounter Location Date Provider Diagnosis [facility] (PODIATRY) [address] [place] [address] [place] [address] 07/03/2024 Sailaja Messina Plan Of Treatment Medication Medication Name Sig Start Date Stop Date Notes HYDROcodone-Acetaminophen 5- 325 MG 1-2 tablet as needed Orally every 6 hrs for 5 days 07/03/2024 Progress Notes * Aura RAMOSeDOB:1970 (54 yo F)Acc No.[id number]:07/03/2024 Patient: Zoila MCKEON :1970 A ge:54 Y S ex:Female Address:[facility] [address] [place], [address] * Refills Start HYDROcodone-Acetaminophen Tablet, 5-325 MG, Orally, 20, 1-2 tablet as needed, every 6 hrs, 5 days, Refills=0 * true * Date: Generated for Printi ng/Faxing/eTransmitting on: 0 11/21/2024 12:53 PM EDT
--- OUTSIDE RECORDS SUMMARY | 2024-07-05 04:59 | XMS_ITS ---
Author Organization The [facility] in [place] Address [address] [place] [address] Care Team Providers Care School Child Care Attendant Name Role Phone None, Unknown or Primary Care Provider Unavailab Sadi Dugan [phone] REASON FOR VISIT Rx post op Medications [...] Encounters Encounter Location Date Provider Diagnosis [facility] (PODIATRY) [address] [place] [address] [place] [address] 07/05/2024 Sadi Bruce Plan Of Treatment Medication Medication Name Sig Start Date Stop Date Notes Amoxicillin-Pot Clavulanate 875-125 MG 1 tablet Orally twice daily for 14 days 07/05/2024 HYDROcodone-Acetaminophen 5- 325 MG 1 tablet as needed Orally every 6 hrs for 5 days 07/05/2024 Sulfamethoxazole-Trimethopri m 800-160 MG 1 tablet Orally twice daily for 14 days 07/05/2024 Progress Notes * FBARIZIOAura BarriosSebleOB:1970 (54 yo F)Acc No.[id number]:07/05/2024 Patient: Zoila MCKEON :1970 A ge:54 Y S ex:Female Address:[address], [place], [address] * Refills Start HYDROcodone-Acetaminophen Tablet, 5-325 MG, Orally, 20 Tablet, 1 tablet as needed, every 6 hrs, 5 days, Refills=0 Start Sulfamethoxazole-Trimethoprim Tablet, 800-160 MG, Orally, 28, 1 tablet, twice daily, 14 days, Refills=0 Start Amoxicillin-Pot Clavulanate Tablet, 875-125 MG, Orally, 28, 1 tablet, twice daily, 14 days, Refills=0 * true * Date: Generated for Miki blanton/Krista/Jh on: 0 11/21/2024 12:54 PM EDT
--- OUTSIDE RECORDS SUMMARY | 2024-11-21 12:54 | XMS_ITS | Clinical Summary ---
Author Organization [facility] Address [address] [place] [address] Care Team Providers Care Ep Technologist Name Role Phone Shayy Ly MD Primary Care Provider [phone] Allergies Active Allergy Reactions Criticality Noted Date Comments Codeine 03/24/2022 Insulin Lispro Rash Low 06/14/2024 Latex Other 04/19/2014 Tomato Other 06/14/2024 Tomato sauce Medications aspirin 81 mg EC tablet Take 1 tablet every day by oral route as directed for 90 days. 03/20/20 Active albuterol 90 mcg/actuation inhaler INHALE TWO [...] UNITS UNDER SKIN TWICE A DAY Active budesonide-formotero L (Symbicort) 160-4.5 mcg/actuation inhaler Active metoprolol tartrate (Lopressor) 25 mg tabletIndications:Co ronary arteriosclerosis in [place] artery,Essential hypertension Take 1 tablet (25 mg) by mouth in the morning and at bedtime. 180 tablet 3 05/19/19 Active Additional Information Patient not taking.Reported on 06/19/2024 atorvastatin (Lipitor) 40 mg tabletIndications:At herosclerosis of [place] coronary artery of [place] heart without angina pectoris,Mixed hyperlipidemia Take 1 tablet (40 mg) by mouth in the morning. 90 tablet 3 06/01/19 23 Active magnesium oxide (Mag-Ox) 400 mg tablet 400 mg in the morning. Active hydroCHLOROthiazide (Microzide) 12.5 mg capsuleIndications:E ssential hypertension TAKE 1 CAPSULE (12.5 MG) BY MOUTH IN THE MORNING. 90 capsule 3 02/15/20 23 Active Additional Information Patient not taking.Reported on 06/19/2024 carvedilol (Coreg) 6.25 mg tabletIndications:Es sential hypertension Take 1 tablet (6.25 mg) by mouth with breakfast and with evening meal. 180 tablet 3 07/12/19 24 Active losartan (Cozaar) 25 mg tabletIndications:Es sential hypertension Take 1 tablet (25 mg) by mouth in the morning. 90 tablet 3 07/13/19 24 Active nitroglycerin (Nitrostat) 0.4 mg SL tabletIndications: est pain, unspecified type PLACE 1 TABLET UNDER YOUR TONGUE EVERY 5 MINUTES NEEDED FOR CHEST PAIN FOR 3 DOSES ONLY. IF NO RELIEF, CALL 911 90 tablet 1 11/29/19 24 Active famotidine (Pepcid) 20 mg tablet Take 20 mg by mouth at bedtime. 03/09/20 24 Active ibuprofen 600 mg tablet Take 1 tablet by mouth every 8 (eight) hours if needed for pain. 09/04/19 24 Active HumaLOG KwikPen Insulin 200 unit/mL (3 mL) insulin pen injection pen PLEASE SEE ATTACHED FOR DETAILED DIRECTIONS 05/14/19 25 Active Active Problems Problem Noted Date Diagnosed [...] B/P log Sinusitis 03/24/2022 Coronary arteriosclerosis in [place] artery 06/30 Assessment & Plan (05/19/2022 10:43 [...] Physically or Sexually Abused Not on file Comments Unknown Sex and Gender Information Value Date Recorded Sex Assigned at Not on file Legal Sex Female 10:02 PM EDT Gender Identity Not on file [...] 06/19/2024 3:25 PM EST Plan of Treatment Upcoming Encounters Date Type Department Care Team (Late st Contact Info) Description 12/03/2024 1:15 PM EDT Office Visit [facility] [address] [place] [address] Zane Navarrete MD [address] [facility] [place] [address] Health Maintenance Due Date Last Done Comments CT Colonography 1972 Colonoscopy 1972 Diabetes: Hemoglobin A1C 1972 FIT-DNA 1972 FOBT 1972 Medicare Annual Wellness (AWV) 1972 Sigmoidoscopy 1972 Diabetes: Retinopathy Screening 01/15/1982 Depression Screening 1984 Diabetes: Urine Protein Screening 01/15/1991 Hepatitis B Vaccines (1 of 3 - 19+ 3-dose series) 01/15/1991 Pap Smear 01/15/1993 Cervical Cancer Screening 01/15/2002 HPV/Cotest 01/15/2002 Mammogram 2012 Pneumococcal Vaccine: Pediatrics (0 to 5 Years) and At-Risk Patients (6 to 64 Years) (2 of 2 - PPSV23, PCV20, or PCV21) 04/07/2015 02/10/2015 Zoster Vaccines (1 of 2) 01/15/2022 COVID-19 Vaccine (2 - season) 2024 10/21/2020 Influenza Vaccine (#1) 2024 , 02/14/2023, 02/01/2022, Additional history exists Colorectal Cancer Screening 06/06/2025 FIT 06/06/2025 06/06/2024 Adult Tetanus 09/30/2034 09/30/2024 HIB Vaccines Aged Out No longer eligi [...] on patient's age to complete this topic Insurance [facility] MEDICARE ADVANTAGE [place]ID [place] Care Teams Ep Technologist Relationship Specialty Start Date End Date Shayy Ly MD [address] [place] [address] #A PCP - General 05/19/22
--- OUTSIDE RECORDS SUMMARY | 2024-11-21 12:54 | XMS_ITS | Patient Health Record ---
Author Organization [facility] Address [address] [place] [address] Care Team Providers Care Apprise Counselor Name Role Phone Shayy Ly M.D. Primary Care Provider Unavail able Narinder Alvarez Loki [phone] Allergies Allergen (clinical drug ingredient) Drug/Non Drug [...] Problem Status W/U Status Risk Notes Problem [id number] Other fracture of lower end of right ulna, subsequent encounter for closed fracture with routine healing (S52.691D) Active confirmed Plan Of Treatment Pending Test Test Name Order Date SCC- WRIST 3 VIEW RIGHT [id number] 05/16/2023 SCC- WRIST 3 VIEW RIGHT [id number] 08/29/2023 SCC- PT/OT EVAL AND TREAT 3X/WEEK FOR 6 WEEKS 08/29/2023 Insurance Providers Payer Name Payer Address Payer Phone Subscriber Number Group Number Insured Name Patient Relationship to Insured Coverage Start Date Coverage End Date Medicare [employer] [employer] [address] [place] [address] [id number] COLETTE DINH Self - patient [facility] the [facility] [address] [place] [address] [id number] COLETTE DINH Self - patient is the insured Medical (General) History Medical History History ICD Code Asthma/COPD Heart Attack Diabetes High Blood Pressure Latex Allergy Drug Allergies
--- OUTSIDE RECORDS SUMMARY | 2024-11-21 12:54 | XMS_ITS | Clinical Summary ---
Author Organization [facility] Address [address] [place] [address] Care Team Providers Care Tank Hoop Bender Name Role Phone Unavailable Primary Care Provider [...] 01/15/2002 HPV/Cotest 01/15/2002 Mammogram 2012 Influenza Vaccine (#1) 2024 02/01/2022 Insurance [employer] MED[employer]ARE ADVANTAGE
--- OUTSIDE RECORDS SUMMARY | 2024-11-21 12:54 | XMS_ITS | Patient Health Record ---
Author Organization [facility] in [place] Address [address] [place] [address] Care Team Providers Care Emergency Room Registered Nurse Name Role Phone None, Unknown or Primary Care Provider Unavailab Jordyn Dugan Unavailable [phone] Fabián Messina Unavailable [phone] Allergies Allergen (clinical drug ingredient) Drug/Non Drug Allergy documented on EMR Reaction Allergy Type Onset Date Status codeine Codeine Unknown Drug Allergy Active Latex Latex Unknown Allergy Active Results Component Value Reference Range Notes CRP (Not yet reviewed by pro vider) Interpretation: Performing Lab: Notes/Report: [facility] , C Reactive Protein 1.26 <=0.50 mg/dL Performing Lab: see note ML - [facility] LB PROF CHEM 8 (BAS METB) (Not yet reviewed by provider) Interpretation: Performing Lab: Notes/Report: [facility] , Sodium 141 136-145 mmol/L Potassium [...] Performing Lab: see note ML - [facility] LB CBC AUTO DIFF (Not yet revie wed by provider) Interpretation: Performing Lab: Notes/Report: [facility] , White Blood Count 6.3 4.0-11.0 [...] Performing Lab: see note ML - [facility] LB XR foot LT min 3V (Not yet r eviewed by provider) Interpretation: Performing Lab: Notes/Report: Source Facility: [facility] [place] [address] [place] [address] XRay Report Signed Patient: ZOILA RAMOS MR#: [id number] : 1970 Acct:[id number] Age/Sex: 54 / F ADM Date: 06/13/24 Loc: Attending Dr: Fabián Messina Ordering Physician: Fabián Messina Date of Service: 06/13/24 Procedure(s): XR foot LT min 3V Accession Number(s): [id number] cc: Shayy Dela Cruz M.D.; Fabián Messina [place] [id number] Patient Name: ZOILA RAMOS MRN: [id number] date: 1970 Sex: F Assigned Patient Location: Current Patient Location: Accession/Order Number: [id number] Exam Date: 06/13/2024 13:08 Report Date: 06/14/2024 [...] Signed By: 06/14/24 1004 DD/ 1001 TD/TT: Plate Slitter And Inspector: [place] [address] XRay Report Signed Patient: JULIA RAMOS MR#: [id number] : 1970 Acct:[id number] Age/Sex: 54 / F ADM Date: 06/13/24 Loc: Attending Dr: Harriet Messina Ordering Physician: Fabián Messina Date of Service: 06/13/24 Procedure(s): XR yanet t LT min 3V Accession Number(s): [id number] cc: Shayy Dela Cruz; Fabián Messina [place] [address] Patient Name: ZOILA RAMOS MRN: [id number] date: 1970 Sex: F Assigned Patient Loc ation: WC Current Patient Location: Accession/Order Numb er: [id number] Exam Date: 06/13/2024 13:08 Report Date: 06/14/2024 [...] Signed By: 06/14/24 1004 DD/ 1001 TD/TT: Plate Slitter And Inspector: [employer] Specimen Processing (Not yet reviewed by [...] been initiated. Acid Fast Culture Performed at: [facility] Acid Fast Culture Specimen has been received and testing has been initiated. Acid Fast Culture [address], [place] [address] Acid Fast Culture Specimen has been received and testing has been initiated. Acid Fast Culture Business Applications Specialist: Klarissa Jacobs PhD, Phone: [phone] Acid Fast Culture Specimen has been received and testing has been initiated. Performing Lab: see note LC - [facility] LB SEE REPORT - Specialist Physician Id information not found for OBX-specific writer producer legend Tissue Culture (Not yet revi ewed [...] provider) Interpretation: Performing Lab: Notes/Report: Source Facility: [place] [address] XRay Report Signed Patient: ZOILA RAMOS MR#: [id number] : 1970 Acct:[id number] Age/Sex: 54 / F ADM Date: 08/10/24 Loc: Attending Dr: Jordyn Bruce D.P.M. Ordering Physician: Jordyn Bruce D.P.M. Date of Service: 08/10/24 Procedure(s): XR foot LT min 3V Accession Number(s): [id number] cc: Shayy Dela Cruz M.D.; Jordyn Bruce D.P.M. [place] [address] Patient Name: ZOILA RAMOS MRN: [id number] date: 1970 Sex: F Assigned Patient Location: Current Patient Location: Accession/Order Number: [id number] Exam Date: 08/10/2024 11:50 Report Date: 08/10/2024 [...] Yoni Callahan M.D.08/10/2024 11:55 AM Dictation Location: [place] [address] Electronically authenticated by: [id number] Y Date: 08/10/2024 11:55 Dictated By: Yoni Callahan D.O. Signed By: 08/10/24 1157 DD/ 1155 TD/TT: Plate Slitter And Inspector: [place] [address] XRay Report Signed Patient: JULIA RAMOS MR#: [id number] : 1970 Acct:[id number] Age/Sex: 54 / F ADM Date: 08/10/24 Loc: Attending Dr: Jordyn Bruce D.P.M. Ordering Physician: Jordyn Bruce D.P.M. Date of Service: 08/10/24 Procedure(s): XR yanet t LT min 3V Accession Number(s): [id number] cc: Shayy Dela Cruz; Jordyn Bruce D.P.M. [place] [address] Patient Name: ZOILA RAMOS MRN: [facility]:[id number] date: 1970 Sex: F Assigned Patient Loc ation: Current Patient Loca tion: Accession/Order Numb er: [id number] Exam Date: 08/10/2024 11:50 Report Date: 08/10/2024 [...] Yoni Callahan M.D.08/10/2024 11:55 AM Dictation Location: [place] [address] Electronically authenticated by: [id number] Y Date: 08/10/2024 11:55 Dictated By: Donte Callahan D.O. Signed By: 08/10/24 1157 DD/ 1155 TD/TT: Plate Slitter And Inspector: Tissue Culture (Not yet revi ewed by provider) Interpretation: Performing Lab: Notes/Report: [facility] , Tissue Culture See Below For Report Tissue Culture Tissue Culture No growth after 18-2 4 hours. Tissue Culture Tissue Culture Tissue Culture Tissue Culture No growth in 36 - 48 hours. Tissue Culture Tissue Culture No growth in 56 - 72 hours. Tissue Culture Tissue Culture Performed at: [facility] Tissue Culture Tissue Culture [address], [place] [address] Tissue Culture Tissue Culture Business Applications Specialist: Klarissa Jacobs PhD, Phone: [phone] Tissue Culture Tissue Culture Tissue Culture Tissue Culture * This is a correcte d result. * Tissue Culture Tissue Culture Tissue Culture Tissue Culture A prior result that was reported as final has been changed. Tissue Culture Performing Lab: see note LC - [facility] LB SEE REPORT - Specialist Physician Id information not found for OBX-specific writer producer legend Fungus Stain (Not yet review ed by provider) Interpretation: Performing Lab: Notes/Report: [facility] , Fungus Stain See Below For Report Fungus Stain Fungus Stain Please refer to the following specimen for additional lab results. Fungus Stain Fungus Stain see [id number] Fungus Stain Performing Lab: see note LC - [facility] LB SEE REPORT - Specialist Physician Id information not found for OBX-specific writer producer legend Gram Stain Result (Not yet r eviewed by provider) Interpretation: Performing Lab: Notes/Report: [facility] , Gram Stain Result See Below For Report Gram Stain Result Gram Stain Result Please refer to the following specimen for additional lab results. Gram Stain Result Gram Stain Result see [id number] Gram Stain Result Performing Lab: see note LC - [facility] LB SEE REPORT - Specialist Physician Id information not found for OBX-specific writer producer legend Anaerobic Cult, [employer] ub [...] Lab: see note LC - [facility] LB Gram Stain Result [...] additional lab results. Fungus (Mycology) Culture see [phone] Fungus (Mycology) Culture Please refer to the following specimen for additional lab results. Performing Lab: see note LC - [facility] LB SEE REPORT - Specialist Physician Id information not found for OBX-specific writer producer legend Fungus Stain (Not yet review ed by provider) Interpretation: Performing Lab: Notes/Report: [facility] , Fungus Stain See Below For Report Fungus Stain Fungus Stain Please refer to the following specimen for additional lab results. Fungus Stain Fungus Stain see [id number] Fungus Stain Performing Lab: see note LC - [facility] LB SEE REPORT - Specialist Physician Id information not found for OBX-specific writer producer legend XR chest 2V (Not yet reviewe d by provider) Interpretation: Performing Lab: Notes/Report: Source Facility: [place] [address] [place] [address] XRay Report Signed Patient: ZOILA RAMOS MR#: [id number] : 1970 Acct:[id number] Age/Sex: 54 / F ADM Date: 06/19/24 Loc: PST Attending Dr: Jordyn Bruce D.P.M. Ordering Physician: Jordyn Bruce D.P.M. Date of Service: 06/19/24 Procedure(s): XR chest 2V Accession Number(s): [id number] cc: Shayy Dela Cruz M.D.; Jordyn Bruce D.P.M. [place] [id number] Patient Name: ZOILA RAMOS MRN: [id number] date: 1970 Sex: F Assigned Patient Location: [facility] Current Patient Location: [facility] Accession/Order Number: [id number] Exam Date: 06/19/2024 14:34 Report Date: 06/19/2024 [...] Aliyah Nicole M.D.06/19/2024 2:37 PM Dictation Location: [place] [address] Electronically authenticated by: [id number] Y Date: 06/19/2024 14:37 Dictated By: Aliyah Nicole M.D. Signed By: 06/19/24 1440 DD/ 1437 TD/TT: Plate Slitter And Inspector: [place] [address] XRay Report Signed Patient: JULIA RAMOS MR#: [id number] : 1970 Acct:[id number] Age/Sex: 54 / F ADM Date: 06/19/24 Loc: [facility] Attending Dr: Jordyn Bruce D.P.M. Ordering Physician: Jordyn Bruce D.P.M. Date of Service: 06/19/24 Procedure(s): XR chest 2V Accession Number(s): [id number] cc: Shayy Dela Cruz; Jordyn Bruce D.P.M. [place] [id number] Patient Name: ZOILA RAMOS MRN: [id number] date: 1970 Sex: F Assigned Patient Loc ation: [facility] Current Patient Loca tion: PST Accession/Order Numb er: [id number] Exam Date: 06/19/2024 14:34 Report Date: 06/19/2024 [...] Aliyah Nicole M.D.06/19/2024 2:37 PM Dictation Location: [place] [address] Electronically authenticated by: [id number] Y Date: 06/19/2024 14:37 Dictated By: Aliyah Nicole M.D. Signed By: 06/19/24 1440 DD/ 1437 TD/TT: Plate Slitter And Inspector: ECG 12 lead (Not yet reviewe d by provider) Interpretation: Performing Lab: Notes/Report: Source Facility: [place] [address] Electrocardiograph Report Signed Patient: ZOILA RAMOS MR#: [id number] : 1970 Acct:[id number] Age/Sex: 54 / F ADM Date: 06/19/24 Loc: [facility] Attending Dr: Jordyn Bruce D.P.M. Ordering Physician: Jordyn Bruce D.P.M. Date of Service: 06/19/24 Procedure(s): ECG 12 lead Accession Number(s): [id number] cc: 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 Ordering Physician: Jordyn Bruce D.P.M. 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 , Prothrombin Time 10.7 9.0-11.6 sec INR 1.01 DESIRED INR: 2.0-3.0 CONDITIONS NOT LISTED BELOW 2.5-3.5 FOR PROSTHETIC HEART VALVE REPLACEMENT 2.5-3.5 RECURRENT THROMBOSIS Performing Lab: see note ML - [facility] LB PTT (Not yet reviewed by pro vider) Interpretation: Performing Lab: Notes/Report: [facility] , Partial Thromboplastin Time 25.3 22.3-36.2 sec Performing Lab: see note ML - [facility] LB PROF CHEM 8 (BAS METB) (Not yet reviewed by provider) Interpretation: Performing Lab: Notes/Report: [facility] , Sodium 137 136-145 mmol/L Potassium [...] mg/dL Performing Lab: see note ML - [facility] LB CBC AUTO DIFF (Not yet revie wed by provider) Interpretation: Performing Lab: Notes/Report: [facility] , White Blood Count 8.8 4.0-11.0 [...] 10 3/uL Performing Lab: see note - [facility] LB PROF CHEM 8 (BAS METB) (Not yet reviewed by provider) Interpretation: Performing Lab: Notes/Report: [facility] , Sodium 140 136-145 mmol/L Potassium [...] 8.5-10.1 mg/dL Performing Lab: see note - [facility] LB Erythrocyte Sedimentation Ra te (Not yet reviewed by provider) Interpretation: Performing Lab: Notes/Report: [facility] , Erythrocyte Sedimentation Rate 28 <=30 mm/hr Performing Lab: see note [facility] LB CBC AUTO DIFF (Not yet revie wed by provider) Interpretation: Performing Lab: Notes/Report: [facility] , White Blood Count 7.2 4.0-11.0 [...] Performing Lab: see note ML - [facility] LB MR foot LT wo con (Not yet r eviewed by provider) Interpretation: Performing Lab: Notes/Report: Source Facility: [facility] [place] [address] [place] [address] Magnetic Resonance Report Signed Patient: ZOILA RAMOS MR#: [id number] : 1970 Acct:[id number] Age/Sex: 54 / F ADM Date: 05/15/24 Loc: MRI Attending Dr: Jordyn Bruce D.P.M. Ordering Physician: Jordyn Bruce D.P.M. Date of Service: 05/15/24 Procedure(s): MR foot LT wo con Accession Number(s): [id number] cc: Shayy Dela Cruz M.D.; Jordyn Bruce D.P.M. [address] [address] Patient Name: ZOILA RAMOS MRN: [id number] date: 1970 Sex: F Assigned Patient Location: MRI Current Patient Location: MRI Accession/Order Number: [id number] Exam Date: 05/15/2024 14:45 Report Date: 05/15/2024 [...] Dictated By: Jake Pierson M.D. Signed By: 05/15/248 DD/ 1647 TD/TT: Plate Slitter And Inspector: [address] [address] Magnetic Resonance Report Signed Patient: JULIA RAMOS MR#: [id number] : 1970 Acct:[id number] Age/Sex: 54 / F ADM Date: 05/15/24 Loc: MRI Attending Dr: Jordyn Bruce D.P.M. Ordering Physician: Jordyn Bruce D.P.M. Date of Service: 05/15/24 Procedure(s): yanet t LT wo con Accession Number(s): [id number] cc: Shayy Dela Cruz; Jordyn Bruce D.P.M. [place] [address] Patient Name: ZOILA RAMOS MRN: [id number] date: 1970 Sex: F Assigned Patient Loc ation: MRI Current Patient Loca tion: MRI Accession/Order Numb er: [id number] Exam Date: 05/15/2024 14:45 Report Date: 05/15/2024 [...] M.D. Signed By: 05/15/241649 DD/ 46 TD/TT: Plate Slitter And Inspector: SEGMENTAL PRESSURES (Not yet reviewed by provider) Interpretation: Performing Lab: Notes/Report: Source Facility: [facility] [place] [address] [place] [address] Vein Report Signed Patient: ZOILA RAMOS MR#: [id number] : 1970 Acct:[id number] Age/Sex: 54 / F ADM Date: 05/09/24 Loc: VC Attending Dr: Jordyn Bruce D.P.M. Ordering Physician: Jordyn Bruce D.P.M. Date of Service: 05/09/24 Procedure(s): VC SEGMENTAL PRESSURES Accession Number(s): [id number] cc: Shayy Dela Cruz M.D.; Jordyn Bruce D.P.M. [place] [address] Patient Name: ZOILA RAMOS MRN: [facility]:[id number] date: 1970 Sex: F Assigned Patient Location: VC Current Patient Location: VC Accession/Order Number: [id number] Exam Date: 05/09/2024 13:04 Report Date: 05/09/2024 14:53 At the request of: JORDYN BRUCE Procedure: VC SEGMENTAL PRESSURES EXAM: VC SEGMENTAL PRESSURES HISTORY: R09.89 COMPARISON: None. FINDINGS: Segmental pressures presented as follows (right, left) in mmHg. Brachial: 132, N/A Lower thigh: 178, 201 Calf: 179, 174 DPA: 248, 234 SPECIAL EDUCATION CLASSROOM AIDE: 259, 113 1st Toe: 86, 103 HIEU: [...] Signed By: 05/09/24 1455 DD/ 1453 TD/TT: Plate Slitter And Inspector: [place] [address] Vein Report Signed Patient: JULIA RAMOS MR#: [id number] : 1970 Acct:[id number] Age/Sex: 54 / F ADM Date: 05/09/24 Loc: VC Attending Dr: Jordyn Bruce D.P.M. Ordering Physician: Jordyn Bruce D.P.M. Date of Service: 05/09/24 Procedure(s): VC SEG MENTAL PRESSURES Accession Number(s): [id number] cc: Shayy Dela Cruz; Jordyn Bruce D.P.M. [place] [address] Patient Name: ZOILA RAMOS MRN: [id number] date: 1970 Sex: F Assigned Patient Loc ation: VC Current Patient Loca tion: VC Accession/Order Numb er: [id number] Exam Date: 05/09/2024 13:04 Report Date: 05/09/2024 14:53 At the request of: JORDYN BRUCE Procedure: VC SEGMEN OZZY PRESSURES EXAM: VC SEGMENTAL PRESSURES HISTORY: R09.89 COMPARISON: None. FINDINGS: Segmental pressures presented as follows (right, left) in mmHg. Brachial: 132, N/A Lower thigh: 178, 201 Calf: 179, 174 DPA: 248, 234 SPECIAL EDUCATION CLASSROOM AIDE: 259, 113 1st Toe: 86, 103 HIEU: [...] M.D. Signed By: 05/09/241454 DD/ 52 TD/TT: Plate Slitter And Inspector: JULIA munoz LT min 3V (Not yet r eviewed by provider) Interpretation: Performing Lab: Notes/Report: Source Facility: [place] [address] XRay Report Signed Patient: ZOILA RAMOS MR#: [id number] : 1970 Acct:[id number] Age/Sex: 54 / F ADM Date: 04/27/24 Loc: EC Attending Dr: Jordyn Bruce D.P.M. Ordering Physician: Jordyn Bruce D.P.M. Date of Service: 04/27/24 Procedure(s): XR foot LT min 3V Accession Number(s): [id number] cc: Shayy Dela Cruz M.D.; Jordyn Bruce D.P.M. [place] [address] Patient Name: ZOILA RAMOS MRN: [id number] date: 1970 Sex: F Assigned Patient Location: Current Patient Location: Accession/Order Number: [id number] Exam Date: 04/27/2024 09:20 Report Date: 04/27/2024 [...] second toe distal phalanx. Electronically authenticated by: NARINDRE LAN Date: 04/27/2024 13:47 Dictated By: Narinder Lan M.D. Signed By: 04/27/24 1356 DD/ 1347 TD/TT: Plate Slitter And Inspector: [place] [address] XRay Report Signed Patient: JULIA RAMOS MR#: [id number] : 1970 Acct:[id number] Age/Sex: 54 / F ADM Date: 04/27/24 Loc: EC Attending Dr: Jordyn Bruce D.P.M. Ordering Physician: Jordyn Bruce D.P.M. Date of Service: 04/27/24 Procedure(s): XR yanet t LT min 3V Accession Number(s): [id number] cc: Shayy Dela Cruz; Jordyn Bruce D.P.M. [place] [address] Patient Name: ZOILA RAMOS MRN: [id number] date: 1970 Sex: F Assigned Patient Loc ation: EC Current Patient Loca tion: EC Accession/Order Numb er: [id number] Exam Date: 09:20 Report Date: 04/27/2024 13:47 At the request of: JORDYN BRUCE Procedure: XR foot L T min 3V PROCEDURE: XR foot L T min 3V HISTORY: LEFT FOOT PAIN COMPARISON: XR foot left 04/19/2024 FINDINGS: BONES:Acute [place]ac [place] transverse fracture through distal neck of second [...] Signed By: 04/27/24 1350 DD/ 1347 TD/TT: Plate Slitter And Inspector: MR collins soares (Not yet reviewed by provider) Interpretation: Performing Lab: Notes/Report: Source Facility: [facility] [place] [address] [place] [address] Magnetic Resonance Report Signed Patient: ZOILA RAMOS MR#: [id number] : 1970 Acct:[id number] Age/Sex: 54 / F ADM Date: 03/21/24 Loc: MRI Attending Dr: Jordyn Bruce D.P.M. Ordering Physician: Jordyn Bruce D.P.M. Date of Service: 03/21/24 Procedure(s): MR ankle RT wo con Accession Number(s): [id number] cc: Shayy Dela Cruz M.D.; Jordyn Bruce D.P.M. [place] [address] Patient Name: ZOILA RAMOS MRN: [id number] date: 1970 Sex: F Assigned Patient Location: MRI Current Patient Location: Accession/Order Number: [id number] Exam Date: 03/21/2024 09:55 Report Date: 03/24/2024 [...] Marques M.D. Signed By: 03/24/2456 DD/ TD/TT: Plate Slitter And Inspector: [place] [address] Magnetic Resonance Report Signed Patient: JULIA RAMOS MR#: [id number] : 1970 Acct:[id number] Age/Sex: 54 / F ADM Date: 03/21/24 Loc: MRI Attending Dr: Jordyn Bruce D.P.M. Ordering Physician: Jordyn Bruce D.P.M. Date of Service: 03/21/24 Procedure(s): MR fred singh RT wo con Accession Number(s): [id number] cc: Shayy Dela Cruz; Jordyn Bruce D.P.M. [place] [id number] Patient Name: ZOILA RAMOS MRN: [id number] date: 1970 Sex: F Assigned Patient Loc ation: MRI Current Patient Location: Accession/Order Numb er: [id number] Exam Date: 09:55 Report Date: 03/24/2024 06:53 [...] Dictated By: Shawn Marques M.D. Signed By: 03/24/24655 DD/ 2 TD/TT: Plate Slitter And Inspector: XR foot LT min 3V (Not yet r eviewed by provider) Interpretation: Performing Lab: Notes/Report: Source Facility: [place] [address] XRay Report Signed Patient: ZOILA RAMOS MR#: [id number] : 1970 Acct:[id number] Age/Sex: 54 / F ADM Date: 07/05/24 [facility] Dr: Jordyn Bruce D.P.M. Ordering Physician: Jordyn Bruce D.P.M. Date of Service: 07/05/24 Procedure(s): XR foot LT min 3V Accession Number(s): [id number] cc: Shayy Dela Cruz M.D.; Jordyn Bruce D.P.M. [place] [address] Patient Name: ZOILA RAMOS MRN: [id number] date: 1970 Sex: F Assigned Patient Location: [facility] Current Patient Location: Accession/Order Number: [id number] Exam Date: 07/05/2024 22:49 Report Date: 07/05/2024 [...] Hui Jr., D.O.07/05/2024 10:52 PM Dictation Location: [place] [address] Electronically authenticated by: [id number] Y Date: 07/05/2024 22:52 Dictated By: Camilo Hui M.D. Signed By: 07/05/242253 DD/ 51 TD/TT: Plate Slitter And Inspector: [place] [address] XRay Report Signed Patient: JULIA RAMOS MR#: [id number] : 1970 Acct:[id number] Age/Sex: 54 / F ADM Date: 07/05/24 Loc: [facility] Attending Dr: Jordyn Bruce D.P.M. Ordering Physician: Jordyn Bruce D.P.M. Date of Service: 07/05/24 Procedure(s): XR yanet t LT min 3V Accession Number(s): [id number] cc: Shayy Dela Cruz; Jordyn Bruce D.P.M. [place] [id number] Patient Name: ZOILA RAMOS MRN: [id number] date: 1970 Sex: F Assigned Patient Loc ation: [facility] Current Patient Location: Accession/Order Numb er: [id number] Exam Date: 07/05/2024 22:49 Report Date: 07/05/2024 [...] Hui Jr., D.O.07/05/2024 10:52 PM Dictation Location: [place] [address] Electronically authenticated by: [id number] Y Date: 07/05/2024 22:52 Dictated By: Camilo Hui M.D. Signed By: 07/05/242253 DD/ 51 TD/TT: Plate Slitter And Inspector: Reason For Referral Reason Right Achilles tear Diagnosis 1 Type 2 diabetes holli itus with diabetic polyneuropathy (E11.42) Diagnosis 2 Strain of right Achi lles tendon, subsequent encounter (S86.011D) Referral Organization [facility] [place] (PODIATRY) Referring Provider First Name Jordyn Referring Provider Last Name Seferinobanner Referring Provider Speciality Podiatry Referred Provider Specialty Physical The rapist Referral Priority Routine Medications Medication SIG (Take, Route, Frequency, Duration) Notes Start Date End Date Status Dexcom 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 A [...] a day for 7 days 04/04/2024 Active Bill Astudillo 300 UNIT/ML INJECT 75 UNITS IN THE [...] Problem Status W/U Status Risk Notes Problem [id number] Type 2 diabetes mellitus with diabetic polyneuropathy (E11.42) Active confirmed Problem Foot ulcer due to type 2 diabetes mellitus (8070792759274) Type 2 diabetes mellitus with foot ulcer (E11.621) Active confirmed Problem 396638340 Other acute osteomyelitis, left ankle and foot (M86.172) Active confirmed Problem Ulcer of left foot (disorder) (777097525) 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) Active confirmed Problem Amputation stump pain (T87.89) Active confirmed Vital Signs Heart Rate 80 /min 05/16/2024 Temperature 97.3 degrees Fahrenheit 04/27/2024 Oximetry 97 % 05/16/2024 Height 62 in 05/16/2024 Weight 204 lbs 05/16/2024 BMI 37.31 kg/m2 05/16/2024 Procedures Procedure Date Ordered Date Performed Result Body Sit e HIEU Segmental Pressure Study of Lower Extremity 04/27/2024 N/A Encounters Encounter Location Date Provider Diagnosis [facility] ([facility]) [address] [place] [address] [place] [address] 03/19/2024 Jordyn Bruce [facility] ([facility]) [address] [place] [address] [place] [address] 04/20/2024 Jordyn Bruce [facility] ([facility]) [address] [place] [address] [place] [address] 04/30/2024 Jordyn Bruce [facility] ([facility]) [address] [place] [address] [place] [address] 05/08/2024 Jordyn Bruce [facility] ([facility]) [address] [place] [address] [place] [address] 06/18/2024 Jordyn Bruce Other acute osteomyelitis, left ankle and foot M86.172 [facility] ([facility]) [address] [place] [address] [place] [address] 06/18/2024 Jordyn Bruce Other acute osteomyelitis, left ankle and foot M86.172 [facility] ([facility]OD[facility]) [address] [place] [address] [place] [address] 06/18/2024 Jordyn Bruce [facility] ([facility]) [address] [place] [address] [place] [address] 07/03/2024 Fabián Michaelen [facility] ([facility]) [address] [place] [address] [place] [address] 07/05/2024 Jordyn Bruce [facility] ([facility]) [address] [place] [address] [place] [address] 01/24/2024 Jordyn Bruce Strain of right Achilles tendon, initial encounter S86.011A and Strain of right Achilles tendon, subsequent encounter S86.011D [facility] ([facility]) [address] [place] [address] [place] [address] 03/07/2024 Jordyn Bruce Strain of right Achilles tendon, initial encounter S86.011A ; Type 2 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 and Strain of right Achilles tendon, subsequent encounter S86.011D [facility] ([facility]) [address] [place] [address] [place] [address] 04/04/2024 Jordyn Bruce Strain of right Achilles tendon, initial encounter S86.011A and Type 2 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 [facility] ([facility]) [address] [place] [address] [place] [address] 05/16/2024 Jordyn Bruce Other acute osteomyelitis, left ankle and foot M86.172 [facility] ([facility]) [address] [place] [address] [place] [address] 04/27/2024 Jordyn Bruce Other acute osteomyelitis, left ankle and foot M86.172 ; Type 2 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 ; Left foot pain M79.672 and Strain of right Achilles tendon, initial encounter S86.011A Assessments Encounter Date Diagnosis (ICD Code) Assessment Notes Treatment Notes Treatment Clinical Notes Section Notes 01/24/2024 Strain of right Achilles tendon, initial [...] in her boot today. She was prescribed [place] but stated that it made her extremely [...] Fungus (Mycology) Culture 07/05/2024 Erythrocyte Sedimentation Rate XR chest 2V 06/19/2024 MR ankle RT [...] MEDIBLUE DUAL ADV PRIMARY MEDICARE [address] [place] [address] [id number] [facility] Zoila Ramos Self - patient is the insured MEDICAID [place] 2ND INS [address] [facility] [address] [place], [place] [id number] Zoila Ramos Self - patient is the insured Medical (General) History Medical History History ICD Code diabetes arthritis cardiovascular disease obesity Surgical History Surgery Date(Month/Year) appendectomy cholecystectomy right shoulder surgery
== END 2024-11-21 12:52 | disposition home or self-care (01) ==
LOC: WC 12:51
PROVIDERS: PCP Family Medicine; Visit Provider Podiatrist Foot & Ankle Surgery
DX: M14.672 Charcot's joint, left ankle and foot (principal); E11.621 Type 2 diabetes mellitus with foot ulcer; L97.521 Non-pressure chronic ulcer of other part of left foot limited to breakdown of skin; L60.0 Ingrowing nail
CPT/HCPCS: G0463

== ENCOUNTER 2024-11-22 10:03 | Outpatient (OUT) | payer MEDICARE, MEDICAID, SELFPAY ==
--- OUTSIDE RECORDS SUMMARY | 2023-10-03 06:40 | XMS_ITS ---
Author Organization [facility] Address [address] [place] [address] Care Team Providers Care Torch Straightener And Heater Name Role Phone Shayy Ly M.D. Primary Care Provider Unavail Narinder Guo [facility] [phone] REASON FOR VISIT Right distal ulna fx Encounters Encounter Location Date Provider Diagnosis [facility] [facility] [address] [facility] [place] [address] 10/03/2023 Narinder Alvarez Plan Of Treatment No Information Progress Notes * LAUREN DINHEDOB:1970 (54 yo F)Acc No.[id number]:10/03/2023 Patient: COLETTE MCKEON Provider: Diogenes Alvarez MD :1970 A ge:53 Y S ex:Female Date:10/03/2023 Address:[facility] [address] [place], [id number] Pcp:Shayy Ly M.D. Subjective: * Chief Complaints: * 1 . Right distal ulna fx. * Medical History: Objective: * Vitals: Assessment: Plan: * Treatment: Forms: * Images: * Electronic signature of Jr Alvarez MD on 11/22/2024 at 10:07 AM EDT Sign off status: Pending * Provider: Diogenes Alvarez MD Date: 10/03/2023 Generated for Miki blanton/Krista/eTransmitting on: 11/22/2024 10:07 AM EDT
--- OUTSIDE RECORDS SUMMARY | 2024-06-18 09:46 | XMS_ITS ---
Author Organization The [facility] in [place] Address [address] [place] [address] Care Team Providers Care Route Deliverer Name Role Phone None, Unknown or Primary Care Provider Unavailab Sadi Dugan [phone] Medications Medication SIG (Take, Route, Frequency, Duration) Notes Start Date End Date Status HYDROcodone-Acetaminophen 5-325 MG 1 tablet as needed Orally every 6 hrs prn for 7 days As needed 06/18/2024 Active Encounters Encounter Location Date Provider Diagnosis [facility] (PODIATRY) [address] [place] [address] [place] [address] 06/18/2024 Sadi Bruce Plan Of Treatment Medication Medication Name Sig Start Date Stop Date Notes HYDROcodone-Acetaminophen 5- 325 MG 1 tablet as needed Orally every 6 hrs prn for 7 days 06/18/2024 Progress Notes * Aura RAMOSeDOB:1970 (54 yo F)Acc No.[id number]:06/18/2024 Patient: Zoila MCKEON :1970 A ge:54 Y S ex:Female Address:[address], [place], [address] * Refills Start HYDROcodone-Acetaminophen Tablet, 5-325 MG, Orally, 28, 1 tablet as needed, every 6 hrs prn, 7 days, Refills=0 * true * Date: Generated for Printi ng/Faxing/eTransmitting on: 0 11/22/2024 10:07 AM EDT
--- OUTSIDE RECORDS SUMMARY | 2024-07-03 05:32 | XMS_ITS ---
Author Organization The [facility] [place] Address [address] [place] [address] Care Team Providers Care Billing Administrator Name Role Phone None, Unknown or Primary Care Provider Unavailab Sailaja Hoffman [phone] Medications Medication SIG (Take, Route, Frequency, Duration) Notes Start Date End Date Status HYDROcodone-Acetaminophen 5-325 MG 1-2 tablet as needed Orally every 6 hrs for 5 days 07/03/2024 Active Encounters Encounter Location Date Provider Diagnosis [facility] (PODIATRY) [address] [place] [address] [place] [address] 07/03/2024 Sailaja Messina Plan Of Treatment Medication Medication Name Sig Start Date Stop Date Notes HYDROcodone-Acetaminophen 5- 325 MG 1-2 tablet as needed Orally every 6 hrs for 5 days 07/03/2024 Progress Notes * Aura RAMOSeDOB:1970 (54 yo F)Acc No.[id number]:07/03/2024 Patient: Zoila MCKEON :1970 A ge:54 Y S ex:Female Address:[facility] [address], [address] [place], [address] * Refills Start HYDROcodone-Acetaminophen Tablet, 5-325 MG, Orally, 20, 1-2 tablet as needed, every 6 hrs, 5 days, Refills=0 * true * Date: Generated for Printi ng/Faxing/eTransmitting on: 0 11/22/2024 10:07 AM EDT
--- OUTSIDE RECORDS SUMMARY | 2024-07-05 04:59 | XMS_ITS ---
Author Organization [facility] in [facility] Address [address] [place] [address] Care Team Providers Care Electoral Officer Name Role Phone None, Unknown or Primary Care Provider Unavailab Sadi Dugan [phone] REASON FOR VISIT Rx post op Medications [...] Encounters Encounter Location Date Provider Diagnosis [facility] ([facility]OD[facility]) [address] [place] [address] [place] [address] 07/05/2024 Sadi Bruce Plan Of Treatment Medication [...] Notes * FABRIZIOAura BarriosSebleOB:1970 (54 yo F)Acc No.[id number]:07/05/2024 Patient: Zoila MCKEON :1970 A ge:54 Y S ex:Female Address:[address], [place], [address] * Refills Start HYDROcodone-Acetaminophen Tablet, 5-325 MG, Orally, 20 Tablet, 1 tablet as needed, every 6 hrs, 5 days, Refills=0 Start Sulfamethoxazole-Trimethoprim Tablet, 800-160 MG, Orally, 28, 1 tablet, twice daily, 14 days, Refills=0 Start Amoxicillin-Pot Clavulanate Tablet, 875-125 MG, Orally, 28, 1 tablet, twice daily, 14 days, Refills=0 * true * Date: Generated for Miki blanton/Krista/Jh on: 0 11/22/2024 10:07 AM EDT
--- OUTSIDE RECORDS SUMMARY | 2024-11-22 10:07 | XMS_ITS | Clinical Summary ---
Author Organization [facility] tem Address [facility] [id number] [address] [place] [address] Care Team Providers Care Solder Deposit Operator Name Role Phone Unavailable Primary Care Provider [...]
--- OUTSIDE RECORDS SUMMARY | 2024-11-22 10:07 | XMS_ITS | Clinical Summary ---
Author Organization [facility] Address [address] [place] [address] Care Team Providers Care Mill Laborer Name Role Phone Unavailable Primary Care Provider [...]
--- OUTSIDE RECORDS SUMMARY | 2024-11-22 10:07 | XMS_ITS | Patient Health Record ---
Author Organization [facility] in [place] Address [address] [place] [address] Care Team Providers Care Continuous Vulcanizing Machine Operator Name Role Phone None, Unknown or Primary Care Provider Unavailab Jordyn Dugan Unavailable [phone] Fabián Messina Unavailable [phone] Allergies Allergen (clinical drug ingredient) Drug/Non Drug Allergy documented on EMR Reaction Allergy Type Onset Date Status codeine Codeine Unknown Drug Allergy Active Latex Latex Unknown Allergy Active Results Component Value Reference Range Notes CRP (Not yet reviewed by pro vider) Interpretation: Performing Lab: Notes/Report: [facility] , C Reactive Protein 1.26 <=0.50 mg/dL Performing Lab: see note ML - [facility] LB PROF CHEM 8 (BAS METB) (Not yet reviewed by provider) Interpretation: Performing Lab: Notes/Report: [facility] , Sodium 141 136-145 mmol/L [...] Performing Lab: see note ML - [facility] LB CBC AUTO DIFF (Not yet revie wed by provider) Interpretation: Performing Lab: Notes/Report: [facility] , White Blood Count 6.3 [...] Performing Lab: see note ML - [facility] LB XR foot LT min 3V (Not yet r eviewed by provider) Interpretation: Performing Lab: Notes/Report: Source Facility: [facility]-[address] [place] [address] [place] [address] XRay Report Signed Patient: ZOILA RAMOS MR#: [id number] : 1970 Acct:[id number] Age/Sex: 54 / F ADM Date: 06/13/24 Loc: Attending Dr: Fabáin Messina Ordering Physician: Fabián Messina Date of Service: 06/13/24 Procedure(s): XR foot LT min 3V Accession Number(s): [id number] cc: Shayy Dela Cruz M.D.; Fabián Messina [facility] [place] [id number] Patient Name: ZOILA RAMOS MRN: TBH:[id number] date: 1970 Sex: F Assigned Patient Location: Current Patient Location: Accession/Order Number: [id number] Exam Date: 06/13/2024 13:08 Report Date: 06/14/2024 [...] LAN Date: 06/14/2024 10:01 Dictated By: Narinder Lna M.D. Signed By: 06/14/24 1004 DD/ 1001 TD/TT: Upholstery Technician: [place] [address] XRay Report Signed Patient: JULIA RAMOS MR#: [id number] : 1970 Acct:[id number] Age/Sex: 54 / F ADM Date: 06/13/24 Loc: Attending Dr: Harriet Messina Ordering Physician: Fabián Messina Date of Service: 06/13/24 Procedure(s): XR yanet t LT min 3V Accession Number(s): [id number] cc: Shayy Dela Cruz; Fabián Messina [place] [address] Patient Name: ZOILA RAMOS MRN: TBH:[id number] date: 1970 Sex: F Assigned Patient Loc ation: WC Current Patient Location: Accession/Order Numb er: [id number] Exam Date: 06/13/2024 13:08 Report Date: 06/14/2024 [...] Signed By: 06/14/24 1004 DD/ 1001 TD/TT: Upholstery Technician: Fungus Stain (Not yet review ed by provider) Interpretation: Performing Lab: Notes/Report: [facility] , Fungus Stain See Below For Report Fungus Stain Fungus Stain Please refer to the following specimen for additional lab results. Fungus Stain Fungus Stain see [id number] Fungus Stain Performing Lab: see note LC - [facility] LB SEE REPORT - Annual Giving Manager Id information not found for OBX-specific morning show newscast producer legend Fungus (Mycology) Culture (N ot yet reviewed by provider) Interpretation: Performing Lab: Notes/Report: [facility] , Fungus (Mycology) Culture See Below For Report Fungus (Mycology) Culture Please refer to the following specimen for additional lab results. Fungus (Mycology) Culture see [id number] Fungus (Mycology) Culture Please refer to the following specimen for additional lab results. Performing Lab: see note - [facility] LB SEE REPORT - Annual Giving Manager Id information not found for OBX-specific morning show newscast producer legend Gram Stain Result (Not yet [...] white blood cells. Performing Lab: see note - [facility] LB Gram Stain Result (Not yet r eviewed by provider) Interpretation: Performing Lab: Notes/Report: [facility] , Gram Stain Result See Below For Report Gram Stain Result Gram Stain Result Please refer to the following specimen for additional lab results. Gram Stain Result Gram Stain Result see [phone] Gram Stain Result Performing Lab: see note - [facility] LB SEE REPORT - Annual Giving Manager Id information not found for OBX-specific morning show newscast producer legend Fungus Stain (Not yet review ed by provider) Interpretation: Performing Lab: Notes/Report: [facility] , Fungus Stain See Below For Report Fungus Stain Fungus Stain Please refer to the following specimen for additional lab results. Fungus Stain Fungus Stain see [phone] Fungus Stain Performing Lab: see note - [facility] LB SEE REPORT - Annual Giving Manager Id information not found for OBX-specific morning show newscast producer legend Anaerobic Cult, [employer] ub [...] hours. Tissue Culture Tissue Culture Performed at: [facility] Tissue Culture Tissue Culture [address], [place] [id number] Tissue Culture Tissue Culture Freelance Displayer: Klarissa Jacobs PhD, Phone: [phone] Tissue Culture Tissue Culture Tissue Culture Tissue Culture * This is a correcte d result. * Tissue Culture Tissue Culture Tissue Culture Tissue Culture A prior result that was reported as final has been changed. Tissue Culture Performing Lab: see note LC - [facility] LB SEE REPORT - Annual Giving Manager Id information not found for OBX-specific morning show newscast producer legend AFB Specimen Processing (Not yet reviewed by provider) Interpretation: Performing Lab: Notes/Report: [facility] , AFB Specimen Processing See Below For Report AFB Specimen Processing AFB Specimen Processing Tissue Grinding AFB Specimen Processing Performing Lab: see note LC - [facility] LB XR foot LT min 3V (Not yet r eviewed by provider) Interpretation: Performing Lab: Notes/Report: Source Facility: [place] [address] XRay Report Signed Patient: ZOILA RAMOS MR#: [id number] : 1970 Acct:[id number] Age/Sex: 54 / F ADM Date: 07/05/24 Loc: SURGOUT Attending Dr: Jordyn Bruce D.P.M. Ordering Physician: Jordyn Bruce D.P.M. Date of Service: 07/05/24 Procedure(s): XR foot LT min 3V Accession Number(s): [id number] cc: Shayy Dela Cruz M.D.; Jordyn Bruce D.P.M. [place] [address] Patient Name: ZOILA RAMOS MRN: [facility] [employer]:[id number] date: 1970 Sex: F Assigned Patient Location: [facility] Current Patient Location: Accession/Order Number: [id number] Exam Date: 07/05/2024 22:49 Report Date: 07/05/2024 [...] Hui Jr., D.O.07/05/2024 10:52 PM Dictation Location: [place] [address] Electronically authenticated by: [id number] Y Date: 07/05/2024 22:52 Dictated By: Camilo Hui M.D. Signed By: 07/05/242253 DD/ 51 TD/TT: Upholstery Technician: [place] [address] XRay Report Signed Patient: JULIA RAMOS MR#: [id number] : 1970 Acct:[id number] Age/Sex: 54 / F ADM Date: 07/05/24 Loc: SURGTAI Attending Dr: Jordyn Bruce D.P.M. Ordering Physician: Jordyn Bruce D.P.M. Date of Service: 07/05/24 Procedure(s): XR yanet t LT min 3V Accession Number(s): [id number] cc: Shayy Dela Cruz; Jordyn Bruce D.P.M. [place] [id number] Patient Name: ZOILA RAMOS MRN: TBH:[id number] date: 1970 Sex: F Assigned Patient Loc ation: SURGOUT Current Patient Location: Accession/Order Numb er: [id number] Exam Date: 07/05/2024 22:49 Report Date: 07/05/2024 22:52 At the request of: JORDYN RBUCE DPNegro Procedure: XR foot L T min [...] Hui Jr., DChan07/05/2024 10:52 PM Dictation Location: [facility] Electronically authenticated by: [id number] Y Date: 07/05/2024 22:52 Dictated By: Camilo Hui M.D. Signed By: 07/05/24 2254 DD/ 2252 TD/TT: Upholstery Technician: Tissue Culture (Not yet revi ewed by [...] been initiated. Acid Fast Culture Performed at: [facility] Acid Fast Culture Specimen has been received and testing has been initiated. Acid Fast Culture [address], [place] [id number] Acid Fast Culture Specimen has been received and testing has been initiated. Acid Fast Culture Freelance Displayer: Klarissa Jacobs PhD, Phone: [phone] Acid Fast Culture Specimen has been received and testing has been initiated. Performing Lab: see note LC - [facility] LB SEE REPORT - Annual Giving Manager Id information not found for OBX-specific morning show newscast producer legend Acid Fast Smear (Not yet rev iewed [...] see note LC - [facility] LB XR chest 2V (Not yet reviewe d by provider) Interpretation: Performing Lab: Notes/Report: Source Facility: [place] [address] XRay Report Signed Patient: ZOILA RAMOS MR#: [id number] : 1970 Acct:[id number] Age/Sex: 54 / F ADM Date: 06/19/24 Loc: PST Attending Dr: Jordyn Bruce D.P.M. Ordering Physician: Jordyn Bruce D.P.M. Date of Service: 06/19/24 Procedure(s): XR chest 2V Accession Number(s): [id number] cc: Shayy Dela Cruz M.D.; Jordyn Bruce D.P.M. [place] [address] Patient Name: ZOILA RAMOS MRN: [id number]:[id number] date: 1970 Sex: F Assigned Patient Location: [facility] Current Patient Location: [facility] Accession/Order Number: [id number] Exam Date: 06/19/2024 14:34 Report Date: 06/19/2024 [...] Aliyah Nicole M.D.06/19/2024 2:37 PM Dictation Location: [place] [address] Electronically authenticated by: [id number] Y Date: 06/19/2024 14:37 Dictated By: Aliyah Nicoel M.D. Signed By: 06/19/24 1440 DD/ 1437 TD/TT: Upholstery Technician: [place] [address] XRay Report Signed Patient: JULIA RAMOS MR#: [id number] : 1970 Acct:[id number] Age/Sex: 54 / F ADM Date: 06/19/24 Loc: ELISABETH Attending Dr: Jordyn Bruce D.P.M. Ordering Physician: Jordyn Bruce D.P.M. Date of Service: 06/19/24 Procedure(s): XR chest 2V Accession Number(s): [id number] cc: Shayy Dela Cruz; Jordyn Bruce D.P.M. [address] [address] Patient Name: ZOILA RAMOS MRN: TBH:[id number] date: 1970 Sex: F Assigned Patient Loc ation: [facility] Current Patient Loca tion: ELISABETH Accession/Order Numb er: [id number] Exam Date: 06/19/2024 14:34 Report Date: 06/19/2024 14:37 At the request of: JORDYN BRUCE DPM Procedure: XR chest 2V PA AND LATERAL [...] Aliyah Nicole M.D.06/19/2024 2:37 PM Dictation Location: [place] [address] Electronically authenticated by: [id number] Y Date: 06/19/2024 14:37 Dictated By: Aliyah Nicole M.D. Signed By: 06/19/24 1440 DD/ 1437 TD/TT: Upholstery Technician: ECG 12 lead (Not yet reviewe d by provider) Interpretation: Performing Lab: Notes/Report: Source Facility: [place] [address] Electrocardiograph Report Signed Patient: ZOILA RAMOS MR#: [id number] : 1970 Acct:[id number] Age/Sex: 54 / F ADM Date: 06/19/24 Loc: ELISABETH Attending Dr: Jordyn Bruce D.P.M. Ordering Physician: Jordyn Bruce D.P.M. Date of Service: 06/19/24 Procedure(s): ECG 12 lead Accession Number(s): [id number] cc: [facility] Test Date: 2024-06-19 Pat Name: ZOILA RAMOS Department: Room: - Gender: Female Perfume And Toilet Water Maker: : 1970 Requested By: SHAYY DELA CRUZ Order Number: [id number] [place] MD: HUSAM ABEL Measurements Intervals Dudley Rate: 84 P: 15 NE: 167 QRS: [...] Dictated By: Husam Abel D.O. Signed By: 06/20/24708 DD/ 1348 TD/TT: Upholstery Technician: [place] [address] Electrocardiograph Report Signed Patient: JULIA RAMOS MR#: [id number] : 1970 Acct:[id number] Age/Sex: 54 / F ADM Date: 06/19/24 Loc: PST Attending Dr: Jordyn Bruce D.P.M. Ordering Physician: Jordyn Bruce D.P.M. Date of Service: 06/19/24 Procedure(s): ECG 12 lead Accession Number(s): [id number] cc: [facility] Test Date: 2024-06-19 Pat Name: ZOILA ASHLY GEIGER Department: 00 Room: - Gender: Female Perfume And Toilet Water Maker: : 1970 Requ ested By: SHAYY DELA CRUZ Order Number: [id number] Reading MD: HUSAM ABEL Measurements Intervals Dud[place] Rate: 84 P: 15 NE: 167 QRS: [...] Signed By: 06/20/24 0709 DD/ 1348 TD/TT: Upholstery Technician: Prothrombin Time INR (Not ye t reviewed by provider) Interpretation: Performing Lab: Notes/Report: [facility] , Prothrombin Time 10.7 9.0-11.6 sec INR 1.01 DESIRED INR: 2.0-3.0 CONDITIONS NOT LISTED BELOW 2.5-3.5 FOR PROSTHETIC HEART VALVE REPLACEMENT 2.5-3.5 RECURRENT THROMBOSIS Performing Lab: see note ML - [facility] LB PTT (Not yet reviewed by pro vider) Interpretation: Performing Lab: Notes/Report: [facility] , Partial Thromboplastin Time 25.3 22.3-36.2 sec Performing Lab: see note - [facility] LB PROF CHEM 8 (BAS METB) (Not yet reviewed by provider) Interpretation: Performing Lab: Notes/Report: [facility] , Sodium 137 136-145 mmol/L [...] Performing Lab: see note - [facility] LB CBC AUTO DIFF (Not yet revie wed by provider) Interpretation: Performing Lab: Notes/Report: [facility] , White Blood Count 8.8 [...] 3/uL Performing Lab: see note ML - [facility] LB PROF CHEM 8 (BAS METB) (Not yet reviewed by provider) Interpretation: Performing Lab: Notes/Report: [facility] , Sodium 140 136-145 mmol/L [...] mg/dL Performing Lab: see note ML - [facility] LB Erythrocyte Sedimentation Ra te (Not yet reviewed by provider) Interpretation: Performing Lab: Notes/Report: [facility] , Erythrocyte Sedimentation Rate 28 <=30 mm/hr Performing Lab: see note - [facility] LB CBC AUTO DIFF (Not yet revie wed by provider) Interpretation: Performing Lab: Notes/Report: [facility] , White Blood Count 7.2 [...] Performing Lab: see note ML - [facility] MR foot LT wo con (Not yet r eviewed by provider) Interpretation: Performing Lab: Notes/Report: Source Facility: [place] [address] [place] [address] Magnetic Resonance Report Signed Patient: ZOILA RAMOS MR#: [id number] : 1970 Acct:[id number] Age/Sex: 54 / F ADM Date: 05/15/24 Loc: MRI Attending Dr: Jordyn Bruce D.P.M. Ordering Physician: Jordyn Bruce D.P.M. Date of Service: 05/15/24 Procedure(s): foot LT wo con Accession Number(s): [id number] cc: Shayy Dela Cruz M.D.; Jordyn Bruce D.P.M. [facility] [place] [address] Patient Name: ZOILA RAMOS MRN: [id number] date: 1970 Sex: F Assigned Patient Location: MRI Current Patient Location: MRI Accession/Order Number: [id number] Exam Date: 05/15/2024 14:45 Report Date: 05/15/2024 [...] this modality and technique. Electronically authenticated by: THOMAS PIERSON Date: 05/15/2024 16:47 Dictated By: Thomas Pierson M.D. Signed By: 05/15/24 8730 DD/ 164 TD/TT: Upholstery Technician: [place] [address] Magnetic Resonance Report Signed Patient: JULIA RAMOS MR#: [id number] : 1970 Acct:[id number] Age/Sex: 54 / F ADM Date: 05/15/24 Loc: MRI Attending Dr: Jordyn Bruce D.P.M. Ordering Physician: Jordyn Bruce D.P.M. Date of Service: 05/15/24 Procedure(s): MR yanet t LT wo con Accession Number(s): [id number] cc: Shayy Dela Cruz; Jordyn Bruce D.P.M. [place] [address] Patient Name: ZOILA RAMOS MRN: [employer] [facility]:[id number] date: 1970 Sex: F Assigned Patient Loc ation: MRI Current Patient Loca tion: MRI Accession/Order Numb er: [id number] Exam Date: 05/15/2024 14:45 Report Date: 05/15/2024 [...] this modality and technique. Electronically authenticated by: THOMAS PIERSON Date: 05/15/2024 16:47 Dictated By: Dashawn Pierson M.D. Signed By: 05/15/241649 DD/ 46 TD/TT: Upholstery Technician: SEGMENTAL PRESSURES (Not yet reviewed by provider) Interpretation: Performing Lab: Notes/Report: Source Facility: [facility]-[address] [place] [address] [place] [address] Vein Report Signed Patient: ZOILA RAMOS MR#: [id number] : 1970 Acct:[id number] Age/Sex: 54 / F ADM Date: 05/09/24 Loc: VC Attending Dr: Jordyn Bruce D.P.M. Ordering Physician: Jordyn Bruce D.P.M. Date of Service: 05/09/24 Procedure(s): VC SEGMENTAL PRESSURES Accession Number(s): [id number] cc: Shayy Dela Cruz M.D.; Jordyn Bruce D.P.M. [facility] [place] [id number] Patient Name: ZOILA RAMOS MRN: [id number] date: 1970 Sex: F Assigned Patient Location: VC Current Patient Location: VC Accession/Order Number: [id number] Exam Date: 05/09/2024 13:04 Report Date: 05/09/2024 14:53 At the request of: JORDYN BRUCE Procedure: VC SEGMENTAL PRESSURES EXAM: VC SEGMENTAL PRESSURES HISTORY: R09.89 COMPARISON: None. FINDINGS: Segmental pressures presented as follows (right, left) in mmHg. Brachial: 132, N/A Lower thigh: 178, 201 Calf: 179, 174 DPA: 248, 234 MEDICAL SOCIAL CONSULTANT: 259, 113 1st Toe: 86, 103 HIEU: [...] Signed By: 05/09/24 1455 DD/ 1453 TD/TT: Upholstery Technician: [place] [address] Vein Report Signed Patient: JULIA RAMOS MR#: [id number] : 1970 Acct:[id number] Age/Sex: 54 / F ADM Date: 05/09/24 Loc: VC Attending Dr: Jordyn Bruce D.P.M. Ordering Physician: Jordyn Bruce D.P.M. Date of Service: 05/09/24 Procedure(s): VC SEG MENTAL PRESSURES Accession Number(s): [id number] cc: Shayy Dela Cruz; Jordyn Bruce D.P.M. [place] [address] Patient Name: ZOILA RAMOS MRN: [id number] date: 1970 Sex: F Assigned Patient Loc ation: VC Current Patient Loca tion: VC Accession/Order Numb er: [id number] Exam Date: 05/09/2024 13:04 Report Date: 05/09/2024 14:53 At the request of: JORDYN BRUCE Procedure: VC SEGMEN OZZY PRESSURES EXAM: VC SEGMENTAL PRESSURES HISTORY: R09.89 COMPARISON: None. FINDINGS: Segmental pressures presented as follows (right, left) in mmHg. Brachial: 132, N/A Lower thigh: 178, 201 Calf: 179, 174 DPA: 248, 234 MEDICAL SOCIAL CONSULTANT: 259, 113 1st Toe: 86, 103 HIEU: [...] Signed By: 05/09/24 1455 DD/ 1453 TD/TT: Upholstery Technician: JULIA munoz LT min 3V (Not yet r eviewed by provider) Interpretation: Performing Lab: Notes/Report: Source Facility: [facility] [place] [address] [place] [address] XRay Report Signed Patient: ZOILA RAMOS MR#: [id number] : 1970 Acct:[id number] Age/Sex: 54 / F ADM Date: 04/27/24 Loc: EC Attending Dr: Jordyn Bruce D.P.M. Ordering Physician: Jordyn Bruce D.P.M. Date of Service: 04/27/24 Procedure(s): XR foot LT min 3V Accession Number(s): [id number] cc: Shayy Dela Cruz M.D.; Jordyn Bruce D.P.M. The [place] [id number] Patient Name: ZOILA RAMOS MRN: [id number] date: 1970 Sex: F Assigned Patient Location: Current Patient Location: Accession/Order Number: [id number] Exam Date: 04/27/2024 09:20 Report Date: 04/27/2024 [...] Signed By: 04/27/24 1350 DD/ 1347 TD/TT: Upholstery Technician: [place] [address] XRay Report Signed Patient: JULIA RAMOS MR#: [id number] : 1970 Acct:[id number] Age/Sex: 54 / F ADM Date: 04/27/24 Loc: EC Attending Dr: Jordyn Bruce D.P.M. Ordering Physician: Jordyn Bruce D.P.M. Date of Service: 04/27/24 Procedure(s): XR yanet t LT min 3V Accession Number(s): [id number] cc: Shayy Dela Cruz; Jordyn Bruce D.P.M. [facility] [place] [address] Patient Name: ZOILA RAMOS MRN: [id number] date: 1970 Sex: F Assigned Patient Loc ation: EC Current Patient Loca tion: EC Accession/Order Numb er: [id number] Exam Date: 09:20 Report Date: 04/27/2024 13:47 [...] By: Narinder Lan M.D. Signed By: 04/27/24 1357 DD/ 1347 TD/TT: Upholstery Technician: MR collins soares (Not yet reviewed by provider) Interpretation: Performing Lab: Notes/Report: Source Facility: [place] [address] [place] [address] Magnetic Resonance Report Signed Patient: ZOILA RAMOS MR#: [id number] : 1970 Acct:[id number] Age/Sex: 54 / F ADM Date: 03/21/24 Loc: MRI Attending Dr: Jordyn Bruce D.P.M. Ordering Physician: Jordyn Bruce D.P.M. Date of Service: 03/21/24 Procedure(s): MR ankle RT wo con Accession Number(s): [id number] cc: Shayy Dela Cruz M.D.; Jordyn Bruce D.P.M. [address] [address] Patient Name: ZOILA RAMOS MRN: [id number] date: 1970 Sex: F Assigned Patient Location: MRI Current Patient Location: Accession/Order Number: [id number] Exam Date: 03/21/2024 09:55 Report Date: 03/24/2024 [...] Marques M.D. Signed By: 03/24/2456 DD/ TD/TT: Upholstery Technician: [place] [address] Magnetic Resonance Report Signed Patient: JULIA RAMOS MR#: [id number] : 1970 Acct:[id number] Age/Sex: 54 / F ADM Date: 03/21/24 Loc: MRI Attending Dr: Jordyn Bruce D.P.M. Ordering Physician: Jordyn Bruce D.P.M. Date of Service: 03/21/24 Procedure(s): MR fred singh RT wo con Accession Number(s): [id number] cc: Shayy Dela Cruz; Jordyn Bruce D.P.M. [place] [id number] Patient Name: ZOILA RAMOS MRN: [id number] date: 1970 Sex: F Assigned Patient Loc ation: MRI Current Patient Location: Accession/Order Numb er: [id number] Exam Date: 09:55 Report Date: 03/24/2024 06:53 [...] M.D. Signed By: 03/24/2456 DD/ 2 TD/TT: Upholstery Technician: XR foot LT min 3V (Not yet r eviewed by provider) Interpretation: Performing Lab: Notes/Report: Source Facility: [place] [address] [place] [address] XRay Report Signed Patient: ZOILA RAMOS MR#: [id number] : 1970 Acct:[id number] Age/Sex: 54 / F ADM Date: 08/10/24 Loc: Attending Dr: Jordyn Bruce D.P.M. Ordering Physician: Jordyn Bruce D.P.M. Date of Service: 08/10/24 Procedure(s): XR foot LT min 3V Accession Number(s): [id number] cc: Shayy Dela Cruz M.D.; Jordyn Bruce D.P.M. [place] [address] Patient Name: ZOILA RAMOS MRN: [id number] date: 1970 Sex: F Assigned Patient Location: Current Patient Location: Accession/Order Number: [id number] Exam Date: 08/10/2024 11:50 Report Date: 08/10/2024 [...] Yoni Callahan M.D.08/10/2024 11:55 AM Dictation Location: [place] [address] Electronically authenticated by: [id number] Y Date: 08/10/2024 11:55 Dictated By: Yoni Callahan D.O. Signed By: 08/10/24 1157 DD/ 115 TD/TT: Upholstery Technician: [place] [address] XRay Report Signed Patient: JULIA RAMOS MR#: [id number] : 1970 Acct:[id number] Age/Sex: 54 / F ADM Date: 08/10/24 Loc: SALUD Attending Dr: Jordyn Bruce D.P.M. Ordering Physician: Jordyn Bruce D.P.M. Date of Service: 08/10/24 Procedure(s): XR yanet t LT min 3V Accession Number(s): [id number] cc: Shayy Dela Cruz; Jordyn Bruce D.P.M. [place] [address] Patient Name: ZOILA RAMOS MRN: [id number] date: 1970 Sex: F Assigned Patient Loc ation: Current Patient Loca tion: Accession/Order Numb er: [id number] Exam Date: 08/10/2024 11:50 Report Date: 08/10/2024 [...] Yoni Callahan M.D.08/10/2024 11:55 AM Dictation Location: [place] [address] Electronically authenticated by: [id number] Y Date: 08/10/2024 11:55 Dictated By: Donte Callahan D.O. Signed By: 08/10/24 1157 DD/ 54 TD/TT: Upholstery Technician: Tissue Culture (Not yet revi ewed by provider) Interpretation: Performing Lab: Notes/Report: [facility] , Tissue Culture See Below For Report Tissue Culture Tissue Culture No growth after 18-2 4 hours. Tissue Culture Tissue Culture Tissue Culture Tissue Culture No growth in 36 - 48 hours. Tissue Culture Performing Lab: see note LC - [facility] LB Reason For Referral Reason Right Achilles tear Diagnosis 1 Type 2 diabetes holli itus with diabetic polyneuropathy (E11.42) Diagnosis 2 Strain of right Achi lles tendon, subsequent encounter (S86.011D) Referral Organization [facility]) Referring Provider First Name Jordyn Referring Provider Last Name Janis Referring Provider Speciality Podiatry Referred Provider Specialty Physical The rapist Referral Priority Routine Medications Medication SIG (Take, Route, Frequency, Duration) Notes Start Date End Date Status Dexcom G7 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 Surveillance 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 - USE 4 TIMES A DAY [...] Problem Status W/U Status Risk Notes Problem [id number] Type 2 diabetes mellitus with diabetic polyneuropathy (E11.42) Active confirmed Problem Foot ulcer due to type 2 diabetes mellitus (3664837547490) Type 2 diabetes mellitus with foot ulcer (E11.621) Active confirmed Problem [id number] Other acute osteomyelitis, left ankle and foot (M86.172) Active confirmed Problem Ulcer of left foot (disorder) (928615421) Chronic ulcer of left foot limited to [...] Encounter Location Date Provider Diagnosis [facility] ([facility]) [address] [place] [address] [place] [address] 03/19/2024 Jordyn Bruce [facility] ([facility]) [address] [place] [address] [place] [address] 04/20/2024 Jordyn Bruce [facility] [address] [place] [address] [place] [id number] 04/30/2024 Jordyn Bruce [facility] [address] [place] [address] [place] [address] 05/08/2024 Jordyn Bruce [facility] [address] [place] [address] [place] [address] 06/18/2024 Jordyn Bruce Other acute osteomyelitis, left ankle and foot M86.172 [facility] [address] [place] [address] [place] [address] 06/18/2024 Jordyn Bruce Other acute osteomyelitis, left ankle and foot M86.172 [facility]) [address] [place] [address] [place] [address] 06/18/2024 Jordyn Bruce [facility] [address] [place] [address] [place] [address] 07/03/2024 Fabián Siddharth [facility]) [address] [place] [address] [place] [address] 07/05/2024 Jordyn Bruce [facility] [address] [place] [address] [place] [address] 01/24/2024 Jordyn Bruce Strain of right Achilles tendon, initial encounter S86.011A and Strain of right Achilles tendon, subsequent encounter S86.011D [facility]) [address] [place] [address] [place] [address] 03/07/2024 Jordyn Bruce Strain of right Achilles tendon, initial encounter S86.011A ; Type 2 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 and Strain of right Achilles tendon, subsequent encounter S86.011D [facility]) [address] [place] [address] [place] [address] 04/04/2024 Jordyn Bruce Strain of right Achilles tendon, initial encounter S86.011A and Type 2 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 [facility]) [address] [place] [address] [place] [address] 04/27/2024 Jordyn Bruce Other acute osteomyelitis, left ankle and foot M86.172 ; Type 2 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 She was prescribed [place] but stated that it made her extremely [...] MEDIBLUE DUAL ADV PRIMARY MEDICARE [address] [place] [address] [id number] [facility] Zoila Ramos Self - patient is the insured MEDICAID [place] 2ND INS [address] OFFICE OF [facility] [address] [place], [place] [id number] Zoila Ramos Self - patient is the insured Medical (General) History Medical History History ICD Code diabetes arthritis cardiovascular disease obesity Surgical History Surgery Date(Month/Year) appendectomy cholecystectomy right shoulder surgery
--- OUTSIDE RECORDS SUMMARY | 2024-11-22 10:07 | XMS_ITS | Clinical Summary ---
Author Organization [facility] Address [address] [place] [address] Care Team Providers Care Tracer Bullet Section Supervisor Name Role Phone Shayy Ly MD Primary Care Provider [phone] Allergies Active Allergy Reactions Criticality Noted Date [...] (Lopressor) 25 mg tabletIndications:Co ronary arteriosclerosis in [place] artery,Essential hypertension Take 1 tablet (25 mg) by mouth in the morning and at bedtime. 180 tablet 3 05/19/19 Active Additional Information Patient not taking.Reported on 06/19/2024 atorvastatin (Lipitor) 40 mg tabletIndications:At herosclerosis of [place] coronary artery of [place] heart without angina pectoris,Mixed hyperlipidemia Take 1 [...] B/P log Sinusitis 03/24/2022 Coronary arteriosclerosis in [place] artery 06/30 Assessment & Plan (05/19/2022 10:43 [...] Description 12/03/2024 1:15 PM EDT Office Visit [facility] [address] [place] [address] Zane Navarrete MD [address] [facility] [place] [address] Health Maintenance Due Date Last [...] patient's age to complete this topic Insurance [facility] MEDICARE ADVANTAGE [place] Care Teams Tracer Bullet Section Supervisor Relationship Specialty Start Date End Date Shayy Ly MD [address] [place] [address] #A PCP - General 05/19/22
--- OUTSIDE RECORDS SUMMARY | 2024-11-22 10:08 | XMS_ITS | Patient Health Record ---
Author Organization [facility] Address [address] [place] [address] Care Team Providers Care Master Automotive Glass Technician Name Role Phone Shayy Ly M.D. Primary Care Provider Unavail able Narinder Alvarez Loki [phone] Allergies Allergen (clinical drug ingredient) Drug/Non Drug [...] Problem Status W/U Status Risk Notes Problem [id number] Other fracture of lower end of right ulna, subsequent encounter for closed fracture with routine healing (S52.691D) Active confirmed Plan Of Treatment Pending Test Test Name Order Date [facility]- WRIST 3 VIEW RIGHT [id number] 05/16/2023 SCC- WRIST 3 VIEW RIGHT [id number] 08/29/2023 [facility]- PT/OT EVAL AND TREAT 3X/WEEK FOR 6 WEEKS 08/29/2023 Insurance Providers Payer Name Payer Address Payer Phone Subscriber Number Group Number Insured Name Patient Relationship to Insured Coverage Start Date Coverage End Date Medicare [employer] [address] [place] [address] [id number] COLETTE DINH Self - patient [facility] the [facility] [address] [place] [address] [id number] COLETTE DINH Self - patient is the insured Medical (General) History Medical History History ICD Code Asthma/COPD Heart Attack Diabetes High Blood Pressure Latex Allergy Drug Allergies
--- OUTSIDE RECORDS SUMMARY | 2024-11-22 10:22 | XMS_ITS | CCD ---
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 Name Role Phone PHYSICIAN, DEFAULT Unavailable Unavailable [...] Admitting Unavailable Narinder Lan Consulting Unavailable DELA CRZU, DR SHAYY Reyes Primary Care Unavailable EDLA CRUZ, DR SHAYY Reyes Consulting Unavailable DELA [...] (1 source) codeine Drug Allergy 9 [facility] Repository (20 sources) Latex; Translations: [LATEX] Drug allergy (disorder) 9 sores on skin [facility] Repository (20 sources) Codeine; Translations: [CODEINE] Drug Allergy 0 nausea [facility] (19 sources) Latex Drug allergy 5 sores on skin [facility] Other (1 source) Codeine Drug Allergy [facility] Repository (11 sources) cat dander Allergy to substance 4 Sneezing, Itching [facility] (11 sources) dog dander Allergy to substance 4 Sneezing, Itching [facility] (11 sources) ozempic Propensity to adverse reactions 4 Vomiting [facility] (3 sources) Insulin Lispro; Translations: [INSULIN LISPRO] Drug All[facility] tomato allergenic extract; [...] 2024 5:10pm Blood-Glucose Meter,Continuo us (Dexcom G7 Online Publisher) misc (9 sources) Start: 12-13-2023 Blood-Glucose Meter,Continuous (Dexcom G7 Online Publisher) misc Active 0 .Route December 12, 2023 11:00pm As directed Start: 12-13-2023 Blood-Glucose Meter,Continuous (Dexcom G7 Online Publisher) misc Active 0 .Route December 13, 2023 12:00am As directed Start: 12-13-2023 Blood-Glucose Meter,Continuous (Dexcom G7 Online Publisher) misc Active 0 .ROUTE December 13, 2023 [...] Orally Once a day Active Dexcom G7 Online Publisher - (4 sources) Start: 06-03-19 24 Dexcom G7 Online Publisher - as directed as directed 4 x [...] take 1 capsule by mo [facility] once daily Esomeprazole Magnesium Active 0 .ROUTE [...] Jesus Lucas ( ) FreeStyle Amrik [employer] [place] - (3 sources) Start: 06-06-2023 FreeStyle Amrik [employer] [place] - as directed invitro 4 times daily [...] Drug Class(es) Dates Sig (Normalized) Sig (Original) [id number] 200 actuat albuterol 0.09 mg/actuat metered dose [...] Jun, Not-Taking/PRN Blood-Glucose Meter,Continuous (Freestyle [employer]rik [employer] [place]) misc (16 sources) Start: 07-28-2023 End: 12-13-2023 Blood-Glucose Meter,Continuous (Freestyle [employer]rik [employer] [place]) misc Discontinued EACH .ROUTE .[facility]PL[facility] July 27, 2023 11:00pm December 13, 2023 12:09pm As directed Start: 07-28-2023 End: 12-13-2023 Blood-Glucose Meter,Continuo us (Freestyle Amrik 3 [place]) misc Discontinued EACH .[facility]TE .[facility] July 28, 2023 12:00am December 13, 2023 1:09pm As directed Start: 07-28-2023 Blood-Glucose Meter,Continuous (Freestyle Amrik 3 [place]) misc [facility] July 28, 2023 12:00am As directed Blood-Glucose Sensor (Freest yle Amrik 3 Sensor) device (16 sources) Start: 07-28-2023 End: 12-13-2023 Blood-Glucose Sensor (Freest yle Amrik 3 Sensor) device Discontinued EACH .[facility]TE [facility] July 27, 2023 11:00pm December 13, 2023 12:09pm As directed Start: 07-28-2023 End: 12-13-2023 Blood-Glucose Sensor (Freest yle Amrik 3 Sensor) device Discontinued [facility] July 28, 2023 12:00am December 13, 2023 1:09pm As directed Start: 07-28-2023 Blood-Glucose Sensor (Freestyle Amrik 3 Sensor) device Active EACH .[facility]OUTE 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] 07-28-2023 Episodic Other [...] Onset: 04-08-2022 Episodic Other aftercare (1 source) 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; 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] Onset: 04-08-2022 Episodic Other aftercare (1 source) 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 (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 of oral hypoglycemic drugs; Translations: [ALF USE ORAL HYPOGLYCEMIC DX] Onset: 04-08-2022 Episodic Other aftercare (1 source) Other usp (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 therapy; Translations: [OTH ALF CURRENT DRUG THERAPY] Onset: 11-09-2021 Episodic Other [...] fraction] Hemoglobin A1c/Hemoglobin.total in Blood by HPLC [facility] No Panel Informationon 08-07 Bedside Glucose 99 [facility] Pathology study report docum entOrdered By: Tejal Church on 07-10-2024 Pathology study [facility] Other Aren 07-05-2024 L Specimen: [id number] Received: 07/06/24 Status: SAM Cook Num: [id number] Spec Type: Surgical Subm Dr: Jordyn Bruce,DPM, MS Tissues: A DIGIT AMPUTATION (2ND LEFT TOE PARTIAL) B DIGIT AMPUTATION (3RD LEFT TOE) Procedures: HE/5, Gross/Micro L4/2, Decalcification/2 Age/ Patient Sex Location Account Attending Physician Zoila Ramos 54/F LABELL [id number] Jordyn Bruce DPM, MS SPEC NUM: [id number] RECD: 07/06/24 STATUS: SAM COOK NUM: [id number] JESSICA: 07/05/[address] [facility] [address]: Jordyn Bruce DPM, MS ENTERED: 07/06/[address] [facility] [address]: Robert,Lab SPEC TYPE: Surgical DEPT: AVERY [...] ulcer, left second and third toes Specimen: [id number] Received: 07/06/24 Status: SAM Cook Num: [id number] Spec Type: Surgical Subm Dr: Jordyn Bruce,DPM, MS Tissues: A DIGIT AMPUTATION (2ND LEFT TOE PARTIAL) B DIGIT AMPUTATION (3RD LEFT TOE) Procedures: HE/5, Gross/Micro L4/2, Decalcification/2 Patient: Zoila Ramos [id number] (Continued) Specimen: [id number] Received: 07/06/24 (Continued) Signed (signature on file) Tejal Church MD 07/10/24 [id number] Specimen: [id number] Received: 07/06/24 Status: SAM Cook Num: [id number] Spec Type: Surgical Subm Dr: Jordyn Bruce,DPM, MS Tissues: A DIGIT AMPUTATION (2ND LEFT TOE PARTIAL) B DIGIT AMPUTATION (3RD LEFT TOE) Procedures: HE/5, Gross/Micro L4/2, Decalcification/2 Patient: Richard,Zoila Sidhu [id number] (Continued) Specimen: [id number] Received: 07/06/24 (Continued) Gross Description Part A [...] x 1 x 0.4 cm. Cassettes: A1 Terrazzo Polisher Helper section of the wound with underlying central second phalangeal bone, decalcified A2 Tangential sections of proximal skin margin A3 Detached skin ( 3, ss, [id number] A)JG Part B is received in formalin [...] Tangential sections of proximal skin margin with public service representative sec (more content not included)... Normal [facility] Orders Onlyon 06-25-2024 Orders Only [id number] Zoila Ramos 1970 F Date Provider Department Center 06/25/2024 [id number]-BERTHA, JESSICA CARD [facility] No family history on file Normal [facility] Activated partial thrombopla stin time (aPTT) in platelet poor plasma by coagulation aon 06-19-2024 aPTT Coag (PPP) [Time] Activated partial thromboplastin time (aPTT) in platelet poor plasma by coagulation a 22.3-36.2 [facility] Basophils Auto (Bld) [#/Vol] on 06-19-2024 Basophils (Bld) [#/Vol] Automated basophil count 0.0-0.1 [facility] Basophils/100 WBC Auto (Bld) on 06-19-2024 Basophils/100 WBC (Bld) Automated basophil % 0.2-2.0 [facility] Eosinophils/100 WBC Auto (Bl d)on 06-19-2024 Eosinophils/100 WBC (Bld) Automated eosinophil % 0.9-7.0 [facility] Erythrocyte distribution wid th Auto (RBC) [Ratio]on 06-19-2024 Erythrocyte distribution width (RBC) [Ratio] Erythrocyte distribution width [Ratio] by Automated count 11.0-15.0 [facility] Estimated glomerular filtrat ion rate (GFR) non- Americanon 06-19-2024 GFR/1.73 sq M.predicted among non-blacks MDRD (S/P/Bld) [Vol rate/Area] Estimated glomerular filtration rate (GFR) non- >=60 mL/min/1.73m 2 [facility] Globulin Calc (S) [Mass/Vol] on 06-19-2024 Globulin (S) [Mass/Vol] Serum globulin measurement by calculation (mass/volume) [facility] Hematocrit Auto (Bld) [Volum e fraction]on 06-19-2024 Hematocrit (Bld) [Volume fraction] Hematocrit [Volume Fraction] of Blood by Automated count 36.0-48.0 [facility] Hemoglobin [Mass/volume] in Bloodon 06-19-2024 Hemoglobin (Bld) [Mass/Vol] Hemoglobin [Mass/volume] in Blood 12.0-16.0 [facility] INR in Platelet poor plasma by Coagulation assayon 06-19-2024 INR Coag (PPP) [Relative time] INR in Platelet poor plasma by Coagulation assay [facility] Comment on above: DESIRED INR:2.0-3.0 CONDITIONS NOT LISTED BELOW2.5-3.5 FOR PROSTHETIC HEART VALVE REPLACEMENT2.5-3.5 RECURRENT THROMBOSIS Laboratory - Chemistry and C hemistry - challengeon 06-19-2024 Albumin [Mass/Vol] 3.3 g/dL Low 3.4-5.0 [facility] ALP [Catalytic activity/Vol] 110 U/L 46-116 [facility] ALT [Catalytic activity/Vol] 44 U/L 14-59 [facility] AST [Catalytic activity/Vol] 23 U/L 15-37 [facility] Bilirubin [Mass/Vol] 0.3 mg/dL 0.2-1.0 [facility] Calcium [Mass/Vol] 9.3 mg/dL 8.5-10.1 [facility] Chloride [Moles/Vol] 102 mmol/L 98-107 [facility] CO2 [Moles/Vol] 27.9 mmol/L 21.0-32.0 [facility] Creatinine [Mass/Vol] 0.88 mg/dL 0.55-1.02 [facility] GFR/1.73 sq M.predicted MDRD (S/P/Bld) [Vol rate/Area] mL/min/{1.73_m2} >=60 mL/min/1.73m 2 [facility] Glucose [Mass/Vol] 175 mg/dL High 74-106 [facility] Lipase [Catalytic activity/Vol] 28.0 U/L 16.0-77.0 [facility] Potassium [Moles/Vol] 4.2 mmol/L 3.5-5.1 [facility] Protein [Mass/Vol] 7.6 g/dL 6.4-8.2 [facility] Sodium [Moles/Vol] 137 mmol/L 136-145 [facility] Urea nitrogen [Mass/Vol] 12.0 mg/dL 7.0-18.0 [facility] Urea nitrogen/Creatinine [Mass ratio] 13.6 mg/mg [facility] Laboratory - Hematology and Cell countson 06-19-2024 Immature granulocytes/100 WBC (Bld) 0.1 % 0.0-0.5 [facility] Leukocytes [#/volume] correc alma delia for nucleated erythrocytes in Blood by Automated counon 06-19-2024 WBC corrected for nucl RBC Auto (Bld) [#/Vol] Leukocytes [#/volume] corrected for nucleated erythrocytes in Blood by Automated coun 4.0-11.0 [facility] Lymphocytes Auto (Bld) [#/Vo l]on 06-19-2024 Lymphocytes (Bld) [#/Vol] Lymphocytes [#/volume] in Blood by Automated count 1.2-3.8 [facility] Lymphocytes/100 WBC Auto (Bl d)on 06-19-2024 Lymphocytes/100 WBC (Bld) Lymphocytes/100 leukocytes in Blood by Automated count 20.5-60.0 [facility] MCH Auto (RBC) [Entitic mass ]on 06-19-2024 MCH (RBC) [Entitic mass] MCH [Entitic mass] by Automated count 26.7-34.0 [facility] MCHC Auto (RBC) [Mass/Vol]on 06-19-2024 MCHC (RBC) [Mass/Vol] MCHC [Mass/volume] by Automated count 29.9-35.2 [facility] MCV Auto (RBC) [Entitic vol] on 06-19-2024 MCV (RBC) [Entitic vol] MCV [Entitic volume] by Automated count 81.0-99.0 [facility] Monocytes Auto (Bld) [#/Vol] on 06-19-2024 Monocytes (Bld) [#/Vol] Automated blood monocyte count 0.3-0.8 [facility] Monocytes/100 WBC Auto (Bld) on 06-19-2024 Monocytes/100 WBC (Bld) Automated monocyte % 1.7-12.0 [facility] Neutrophils Auto (Bld) [#/Vo l]on 06-19-2024 Neutrophils (Bld) [#/Vol] Neutrophils [#/volume] in Blood by Automated count 1.4-6.5 [facility] Neutrophils/100 WBC Auto (Bl d)on 06-19-2024 Neutrophils/100 WBC (Bld) Automated neutrophil % 43.0-75.0 [facility] No Panel Informationon 06-19 Eosinophils # (Auto) 0.2 10 3/uL 0.0-0.7 [facility] Immature Granulocyte # (Auto) 0.01 10 3/uL 0.00-0.03 [facility] Office Visiton 06-19-2024 Follow-up visit [id number] Zoila Ramos 1970 F Date Provider Department Center 06/19/2024 [facility] No family history on file Level of Service:51574 OR OFFICE/OUTPATIENT ESTABLISHED MOD MDM 30 MIN Normal [facility] Platelet mean volume Auto (B ld) [Entitic vol]on 06-19-2024 Platelet mean volume (Bld) [Entitic vol] Platelet mean volume [Entitic volume] in Blood by Automated count 9.5-13.5 [facility] Platelets Auto (Bld) [#/Vol] on 06-19-2024 Platelets (Bld) [#/Vol] Platelets [#/volume] in Blood by Automated count 150-450 [facility] Prothrombin time (PT)on 06-02 PT Coag (PPP) [Time] Prothrombin time (PT) 9.0-11.6 [facility] RBC Auto (Bld) [#/Vol]on RBC (Bld) [#/Vol] Erythrocytes [#/volume] in Blood by Automated count 4.20-5.40 [facility] Serum or plasma albumin/glob ulin mass ratioon 06-19-2024 Albumin/Globulin [Mass ratio] Serum or plasma albumin/globulin mass ratio [facility] Serum or plasma anion gap de terminationon 06-19-2024 Anion gap [Moles/Vol] Serum or plasma anion gap determination [facility] Cholesterol in LDL Calc [Mas s/Vol]on 06-12-2024 Cholesterol in LDL [Mass/Vol] Cholesterol in LDL [Mass/volume] in Serum or Plasma by calculation [facility] Comment on above: <100 mg/dl [id number] 0-129 mg/dl NEAR OR ABOVE [id number] mg/dl BORDERLINE PHWN470-585 mg/dl HIGH>190 mg/dl VERY HIGH Cholesterol in VLDL Calc [Ma ss/Vol]on 06-12-2024 Cholesterol in VLDL [Mass/Vol] Cholesterol in VLDL [Mass/volume] in Serum or Plasma by calculation [facility] Estimated glomerular filtrat ion rate (GFR) non- Americanon 06-12-2024 GFR/1.73 sq M.predicted among non-blacks MDRD (S/P/Bld) [Vol rate/Area] Estimated glomerular filtration rate (GFR) non- >=60 mL/min/1.73m 2 [facility] Globulin Calc (S) [Mass/Vol] on 06-12-2024 Globulin (S) [Mass/Vol] Serum globulin measurement by calculation (mass/volume) [facility] Laboratory - Chemistry and C hemistry - challengeon 06-12-2024 Albumin [Mass/Vol] 3.1 g/dL Low 3.4-5.0 [facility] ALP [Catalytic activity/Vol] 118 U/L High 46-116 [facility] ALT [Catalytic activity/Vol] 36 U/L 14-59 [facility] AST [Catalytic activity/Vol] 18 U/L 15-37 [facility] Bilirubin [Mass/Vol] 0.3 mg/dL 0.2-1.0 [facility] Calcium [Mass/Vol] 9.1 mg/dL 8.5-10.1 [facility] Chloride [Moles/Vol] 102 mmol/L 98-107 [facility] Cholesterol [Mass/Vol] 124 mg/dL <=200 [facility] Cholesterol in HDL [Mass/Vol] 43 mg/dL 40-60 [facility] Comment on above: > or =60 mg/dl - LOW CARDIOVASCULAR RISK<40 mg/dl - HIGH CARDIOVASCULAR RISK CO2 [Moles/Vol] 28.4 mmol/L 21.0-32.0 [facility] Cobalamin (Vitamin B12) [Mass/Vol] 998 pg/mL 232-1245 [facility] Comment on above: Performed at: [facility] [employer] [facility] [address] [id number] Director: Gerald Jacobs PhD, Phone: [phone] Creatinine [Mass/Vol] 0.87 mg/dL 0.55-1.02 [facility] GFR/1.73 sq M.predicted MDRD (S/P/Bld) [Vol rate/Area] mL/min/{1.73_m2} >=60 mL/min/1.73m 2 [facility] Glucose [Mass/Vol] 197 mg/dL High 74-106 [facility] Potassium [Moles/Vol] 4.5 mmol/L 3.5-5.1 [facility] Protein [Mass/Vol] 7.3 g/dL 6.4-8.2 [facility] Sodium [Moles/Vol] 142 mmol/L 136-145 [facility] Triglyceride [Mass/Vol] 68 mg/dL <=150 [facility] Urea nitrogen [Mass/Vol] 11.0 mg/dL 7.0-18.0 [facility] Urea nitrogen/Creatinine [Mass ratio] 12.6 mg/mg [facility] No Panel Informationon 06-12 25-Hydroxy Vitamin D Total 44.6 ng/mL [facility] Comment on above: <20 ng/mL Vit D defi cient20-<30 ng/mL Vit D [id number] ng/mL Vit D sufficient>100 ng/mL Potential Toxicity Serum or plasma albumin/glob ulin mass ratioon 06-12-2024 Albumin/Globulin [Mass ratio] Serum or plasma albumin/globulin mass ratio [facility] Serum or plasma anion gap de terminationon 06-12-2024 Anion gap [Moles/Vol] Serum or plasma anion gap determination [facility] Serum or plasma total choles terol/high density lipoprotein (HDL) cholesterol mass jaun 06-12-2024 Cholesterol.total/Ch olesterol in HDL [Mass ratio] Serum or plasma total cholesterol/high density lipoprotein (HDL) cholesterol mass rat [facility] Comment on above: 3.3 - 4.4 LOW RISK4. 4 - 7.1 AVERAGE RISK7.1 - 11.0 MODERATE RISK>11.0 HIGH RISK Basophils Auto (Bld) [#/Vol] on 06-07-2024 Basophils (Bld) [#/Vol] Automated basophil count 0.0-0.1 [facility] Basophils/100 WBC Auto (Bld) on 06-07-2024 Basophils/100 WBC (Bld) Automated basophil % 0.2-2.0 [facility] Eosinophils/100 WBC Auto (Bl d)on 06-07-2024 Eosinophils/100 WBC (Bld) Automated eosinophil % 0.9-7.0 [facility] Erythrocyte distribution wid th Auto (RBC) [Ratio]on 06-07-2024 Erythrocyte distribution width (RBC) [Ratio] Erythrocyte distribution width [Ratio] by Automated count 11.0-15.0 [facility] Estimated glomerular filtrat ion rate (GFR) non- Americanon 06-07-2024 GFR/1.73 sq M.predicted among non-blacks MDRD (S/P/Bld) [Vol rate/Area] Estimated glomerular filtration rate (GFR) non- >=60 mL/min/1.73m 2 [facility] Globulin Calc (S) [Mass/Vol] on 06-07-2024 Globulin (S) [Mass/Vol] Serum globulin measurement by calculation (mass/volume) [facility] Hematocrit Auto (Bld) [Volum e fraction]on 06-07-2024 Hematocrit (Bld) [Volume fraction] Hematocrit [Volume Fraction] of Blood by Automated count 36.0-48.0 [facility] Hemoglobin [Mass/volume] in Bloodon 06-07-2024 Hemoglobin (Bld) [Mass/Vol] Hemoglobin [Mass/volume] in Blood 12.0-16.0 [facility] Laboratory - Chemistry and C hemistry - challengeon 06-07-2024 Lactate [Moles/Vol] 1.9 mmol/L 0.4-2.0 [facility] Albumin [Mass/Vol] 3.3 g/dL Low 3.4-5.0 [facility] ALP [Catalytic activity/Vol] 115 U/L 46-116 [facility] ALT [Catalytic activity/Vol] 39 U/L 14-59 [facility] AST [Catalytic activity/Vol] 16 U/L 15-37 [facility] Bilirubin [Mass/Vol] 0.2 mg/dL 0.2-1.0 [facility] Calcium [Mass/Vol] 9.4 mg/dL 8.5-10.1 [facility] Chloride [Moles/Vol] 104 mmol/L 98-107 [facility] CO2 [Moles/Vol] 27.1 mmol/L 21.0-32.0 [facility] Creatinine [Mass/Vol] 0.86 mg/dL 0.55-1.02 [facility] GFR/1.73 sq M.predicted MDRD (S/P/Bld) [Vol rate/Area] mL/min/{1.73_m2} >=60 mL/min/1.73m 2 [facility] Glucose [Mass/Vol] 157 mg/dL High 74-106 [facility] Potassium [Moles/Vol] 4.4 mmol/L 3.5-5.1 [facility] Protein [Mass/Vol] 7.3 g/dL 6.4-8.2 [facility] Sodium [Moles/Vol] 142 mmol/L 136-145 [facility] Urea nitrogen [Mass/Vol] 23.0 mg/dL High 7.0-18.0 [facility] Urea nitrogen/Creatinine [Mass ratio] 26.7 mg/mg [facility] Laboratory - Hematology and Cell countson 06-07-2024 ESR (Bld) [Velocity] 41 mm/h High <=30 [facility] Immature granulocytes/100 WBC (Bld) 0.2 % 0.0-0.5 [facility] Leukocytes [#/volume] correc alma delia for nucleated erythrocytes in Blood by Automated counon 06-07-2024 WBC corrected for nucl RBC Auto (Bld) [#/Vol] Leukocytes [#/volume] corrected for nucleated erythrocytes in Blood by Automated coun 4.0-11.0 [facility] Lymphocytes Auto (Bld) [#/Vo l]on 06-07-2024 Lymphocytes (Bld) [#/Vol] Lymphocytes [#/volume] in Blood by Automated count 1.2-3.8 [facility] Lymphocytes/100 WBC Auto (Bl d)on 06-07-2024 Lymphocytes/100 WBC (Bld) Lymphocytes/100 leukocytes in Blood by Automated count 20.5-60.0 [facility] MCH Auto (RBC) [Entitic mass ]on 06-07-2024 MCH (RBC) [Entitic mass] MCH [Entitic mass] by Automated count 26.7-34.0 [facility] MCHC Auto (RBC) [Mass/Vol]on 06-07-2024 MCHC (RBC) [Mass/Vol] MCHC [Mass/volume] by Automated count 29.9-35.2 [facility] MCV Auto (RBC) [Entitic vol] on 06-07-2024 MCV (RBC) [Entitic vol] MCV [Entitic volume] by Automated count 81.0-99.0 [facility] Monocytes Auto (Bld) [#/Vol] on 06-07-2024 Monocytes (Bld) [#/Vol] Automated blood monocyte count 0.3-0.8 [facility] Monocytes/100 WBC Auto (Bld) on 06-07-2024 Monocytes/100 WBC (Bld) Automated monocyte % 1.7-12.0 [facility] Neutrophils Auto (Bld) [#/Vo l]on 06-07-2024 Neutrophils (Bld) [#/Vol] Neutrophils [#/volume] in Blood by Automated count 1.4-6.5 [facility] Neutrophils/100 WBC Auto (Bl d)on 06-07-2024 Neutrophils/100 WBC (Bld) Automated neutrophil % 43.0-75.0 [facility] No Panel Informationon 06-07 C-Reactive Protein, Quantitative 1.46 mg/dL High <=0.50 [facility] Eosinophils # (Auto) 0.3 10 3/uL 0.0-0.7 [facility] Immature Granulocyte # (Auto) 0.02 10 3/uL 0.00-0.03 [facility] Platelet mean volume Auto (B ld) [Entitic vol]on 06-07-2024 Platelet mean volume (Bld) [Entitic vol] Platelet mean volume [Entitic volume] in Blood by Automated count 9.5-13.5 [facility] Platelets Auto (Bld) [#/Vol] on 06-07-2024 Platelets (Bld) [#/Vol] Platelets [#/volume] in Blood by Automated count 150-450 [facility] RBC Auto (Bld) [#/Vol]on RBC (Bld) [#/Vol] Erythrocytes [#/volume] in Blood by Automated count 4.20-5.40 [facility] Serum or plasma albumin/glob ulin mass ratioon 06-07-2024 Albumin/Globulin [Mass ratio] Serum or plasma albumin/globulin mass ratio [facility] Serum or plasma anion gap de terminationon 06-07-2024 Anion gap [Moles/Vol] Serum or plasma anion gap determination [facility] Basophils Auto (Bld) [#/Vol] on 06-01-2024 Basophils (Bld) [#/Vol] Automated basophil count 0.0-0.1 [facility] Basophils/100 WBC Auto (Bld) on 06-01-2024 Basophils/100 WBC (Bld) Automated basophil % 0.2-2.0 [facility] Eosinophils/100 WBC Auto (Bl d)on 06-01-2024 Eosinophils/100 WBC (Bld) Automated eosinophil % 0.9-7.0 [facility] Erythrocyte distribution wid th Auto (RBC) [Ratio]on 06-01-2024 Erythrocyte distribution width (RBC) [Ratio] Erythrocyte distribution width [Ratio] by Automated count 11.0-15.0 [facility] Estimated glomerular filtrat ion rate (GFR) non- Americanon 06-01-2024 GFR/1.73 sq M.predicted among non-blacks MDRD (S/P/Bld) [Vol rate/Area] Estimated glomerular filtration rate (GFR) non- Low >=60 mL/min/1.73m 2 [facility] Hematocrit Auto (Bld) [Volum e fraction]on 06-01-2024 Hematocrit (Bld) [Volume fraction] Hematocrit [Volume Fraction] of Blood by Automated count 36.0-48.0 [facility] Hemoglobin [Mass/volume] in Bloodon 06-01-2024 Hemoglobin (Bld) [Mass/Vol] Hemoglobin [Mass/volume] in Blood 12.0-16.0 [facility] [facility] - Chemistry and C hemistry - challengeon 06-01-2024 Calcium [Mass/Vol] 9.0 mg/dL 8.5-10.1 [facility] Chloride [Moles/Vol] 105 mmol/L 98-107 [facility] CO2 [Moles/Vol] 29.8 mmol/L 21.0-32.0 [facility] Creatinine [Mass/Vol] 1.01 mg/dL 0.55-1.02 [facility] GFR/1.73 sq M.predicted MDRD (S/P/Bld) [Vol rate/Area] mL/min/{1.73_m2} >=60 mL/min/1.73m 2 [facility] Glucose [Mass/Vol] 171 mg/dL High 74-106 [facility] Potassium [Moles/Vol] 4.6 mmol/L 3.5-5.1 [facility] Sodium [Moles/Vol] 140 mmol/L 136-145 [facility] Urea nitrogen [Mass/Vol] 15.0 mg/dL 7.0-18.0 [facility] Urea nitrogen/Creatinine [Mass ratio] 14.9 mg/mg [facility] Laboratory - Hematology and Cell countson 06-01-2024 Immature granulocytes/100 WBC (Bld) 0.3 % 0.0-0.5 [facility] Leukocytes [#/volume] correc alma delia for nucleated erythrocytes in Blood by Automated counon 06-01-2024 WBC corrected for nucl RBC Auto (Bld) [#/Vol] Leukocytes [#/volume] corrected for nucleated erythrocytes in Blood by Automated coun 4.0-11.0 [facility] Lymphocytes Auto (Bld) [#/Vo l]on 06-01-2024 Lymphocytes (Bld) [#/Vol] Lymphocytes [#/volume] in Blood by Automated count 1.2-3.8 [facility] Lymphocytes/100 WBC Auto (Bl d)on 06-01-2024 Lymphocytes/100 WBC (Bld) Lymphocytes/100 leukocytes in Blood by Automated count 20.5-60.0 [facility] MCH Auto (RBC) [Entitic mass ]on 06-01-2024 MCH (RBC) [Entitic mass] MCH [Entitic mass] by Automated count 26.7-34.0 [facility] MCHC Auto (RBC) [Mass/Vol]on 06-01-2024 MCHC (RBC) [Mass/Vol] MCHC [Mass/volume] by Automated count 29.9-35.2 [facility] MCV Auto (RBC) [Entitic vol] on 06-01-2024 MCV (RBC) [Entitic vol] MCV [Entitic volume] by Automated count 81.0-99.0 [facility] Monocytes Auto (Bld) [#/Vol] on 06-01-2024 Monocytes (Bld) [#/Vol] Automated blood monocyte count 0.3-0.8 [facility] Monocytes/100 WBC Auto (Bld) on 06-01-2024 Monocytes/100 WBC (Bld) Automated monocyte % 1.7-12.0 [facility] Neutrophils Auto (Bld) [#/Vo l]on 06-01-2024 Neutrophils (Bld) [#/Vol] Neutrophils [#/volume] in Blood by Automated count 1.4-6.5 [facility] Neutrophils/100 WBC Auto (Bl d)on 06-01-2024 Neutrophils/100 WBC (Bld) Automated neutrophil % 43.0-75.0 [facility] No Panel Informationon 06-01 Eosinophils # (Auto) 0.2 10 3/uL 0.0-0.7 [facility] Immature Granulocyte # (Auto) 0.02 10 3/uL 0.00-0.03 [facility] Platelet mean volume Auto (B ld) [Entitic vol]on 06-01-2024 Platelet mean volume (Bld) [Entitic vol] Platelet mean volume [Entitic volume] in Blood by Automated count 9.5-13.5 [facility] Platelets Auto (Bld) [#/Vol] on 06-01-2024 Platelets (Bld) [#/Vol] Platelets [#/volume] in Blood by Automated count 150-450 [facility] RBC Auto (Bld) [#/Vol]on RBC (Bld) [#/Vol] Erythrocytes [#/volume] in Blood by Automated count 4.20-5.40 [facility] Serum or plasma anion gap de terminationon 06-01-2024 Anion gap [Moles/Vol] Serum or plasma anion gap determination [facility] Basophils Auto (Bld) [#/Vol] on 05-16-2024 Basophils (Bld) [#/Vol] Automated basophil count 0.0-0.1 [facility] Basophils/100 WBC Auto (Bld) on 05-16-2024 Basophils/100 WBC (Bld) Automated basophil % 0.2-2.0 [facility] Eosinophils/100 WBC Auto (Bl d)on 05-16-2024 Eosinophils/100 WBC (Bld) Automated eosinophil % 0.9-7.0 [facility] Erythrocyte distribution wid th Auto (RBC) [Ratio]on 05-16-2024 Erythrocyte distribution width (RBC) [Ratio] Erythrocyte distribution width [Ratio] by Automated count 11.0-15.0 [facility] Estimated glomerular filtrat ion rate (GFR) non- Americanon 05-16-2024 GFR/1.73 sq M.predicted among non-blacks MDRD (S/P/Bld) [Vol rate/Area] Estimated glomerular filtration rate (GFR) non- Low >=60 mL/min/1.73m 2 [facility] Hematocrit Auto (Bld) [Volum e fraction]on 05-16-2024 Hematocrit (Bld) [Volume fraction] Hematocrit [Volume Fraction] of Blood by Automated count 36.0-48.0 [facility] Hemoglobin [Mass/volume] in Bloodon 05-16-2024 Hemoglobin (Bld) [Mass/Vol] Hemoglobin [Mass/volume] in Blood 12.0-16.0 [facility] Laboratory - Chemistry and C hemistry - challengeon 05-16-2024 Calcium [Mass/Vol] 9.1 mg/dL 8.5-10.1 [facility] Chloride [Moles/Vol] 104 mmol/L 98-107 [facility] CO2 [Moles/Vol] 30.6 mmol/L 21.0-32.0 [facility] Creatinine [Mass/Vol] 1.01 mg/dL 0.55-1.02 [facility] GFR/1.73 sq M.predicted MDRD (S/P/Bld) [Vol rate/Area] mL/min/{1.73_m2} >=60 mL/min/1.73m 2 [facility] Glucose [Mass/Vol] 206 mg/dL High 74-106 [facility] Potassium [Moles/Vol] 5.1 mmol/L 3.5-5.1 [facility] Sodium [Moles/Vol] 141 mmol/L 136-145 [facility] Urea nitrogen [Mass/Vol] 12.0 mg/dL 7.0-18.0 [facility] Urea nitrogen/Creatinine [Mass ratio] 11.9 mg/mg [facility] Laboratory - Hematology and Cell countson 05-16-2024 ESR (Bld) [Velocity] 28 mm/h <=30 [facility] Immature granulocytes/100 WBC (Bld) 0.3 % 0.0-0.5 [facility] Leukocytes [#/volume] correc alma delia for nucleated erythrocytes in Blood by Automated counon 05-16-2024 WBC corrected for nucl RBC Auto (Bld) [#/Vol] Leukocytes [#/volume] corrected for nucleated erythrocytes in Blood by Automated coun 4.0-11.0 [facility] Lymphocytes Auto (Bld) [#/Vo l]on 05-16-2024 Lymphocytes (Bld) [#/Vol] Lymphocytes [#/volume] in Blood by Automated count 1.2-3.8 [facility] Lymphocytes/100 WBC Auto (Bl d)on 05-16-2024 Lymphocytes/100 WBC (Bld) Lymphocytes/100 leukocytes in Blood by Automated count 20.5-60.0 [facility] MCH Auto (RBC) [Entitic mass ]on 05-16-2024 MCH (RBC) [Entitic mass] MCH [Entitic mass] by Automated count 26.7-34.0 [facility] MCHC Auto (RBC) [Mass/Vol]on 05-16-2024 MCHC (RBC) [Mass/Vol] MCHC [Mass/volume] by Automated count 29.9-35.2 [facility] MCV Auto (RBC) [Entitic vol] on 05-16-2024 MCV (RBC) [Entitic vol] MCV [Entitic volume] by Automated count 81.0-99.0 [facility] Monocytes Auto (Bld) [#/Vol] on 05-16-2024 Monocytes (Bld) [#/Vol] Automated blood monocyte count 0.3-0.8 [facility] Monocytes/100 WBC Auto (Bld) on 05-16-2024 Monocytes/100 WBC (Bld) Automated monocyte % 1.7-12.0 [facility] Neutrophils Auto (Bld) [#/Vo l]on 05-16-2024 Neutrophils (Bld) [#/Vol] Neutrophils [#/volume] in Blood by Automated count 1.4-6.5 [facility] Neutrophils/100 WBC Auto (Bl d)on 05-16-2024 Neutrophils/100 WBC (Bld) Automated neutrophil % 43.0-75.0 [facility] No Panel Informationon 05-16 C-Reactive Protein, Quantitative 1.26 mg/dL High <=0.50 [facility] Eosinophils # (Auto) 0.3 10 3/uL 0.0-0.7 [facility] Immature Granulocyte # (Auto) 0.02 10 3/uL 0.00-0.03 [facility] Platelet mean volume Auto (B ld) [Entitic vol]on 05-16-2024 Platelet mean volume (Bld) [Entitic vol] Platelet mean volume [Entitic volume] in Blood by Automated count 9.5-13.5 [facility] Platelets Auto (Bld) [#/Vol] on 05-16-2024 Platelets (Bld) [#/Vol] Platelets [#/volume] in Blood by Automated count 150-450 [facility] RBC Auto (Bld) [#/Vol]on RBC (Bld) [#/Vol] Erythrocytes [#/volume] in Blood by Automated count 4.20-5.40 [facility] Serum or plasma anion gap de terminationon 05-16-2024 Anion gap [Moles/Vol] Serum or plasma anion gap determination [facility] Creatinine [Mass/volume] in UrineOrdered By: Cathie Vargas on 02-23-2024 Creatinine (U) [Mass/Vol] 28.00 mg/dL [facility] Comment on above: No reference range e stablished MicroAlb Creat Ratio,Uon Creatinine, Urine (Random) 28.00 mg/dL Normal [facility] Comment on above: Result Comment: No r eference range established Performed By: #### U RMACRERAT #### [address] Microalbumin/Creatin ine Ratio Not performed Normal 0.0-30.0 [facility] Comment on above: Result Comment: PERF ORMED BY: [place] [address] PATHOLOGIST WEB ANALYST RUBINA RICCI M.D. Performed By: #### U RMACRERAT #### [place] [address] [place] Microalbumin [Mass/volume] i n UrineOrdered By: Cathie Vargas on 02-23-2024 Albumin DL <= 20 mg/L (U) [Mass/Vol] mg/dL Normal 0.0-1.8 [facility] Comment on above: Performed By: #### U RMACRERAT #### [address] Urine microalbumin/creatinin e mass ratioOrdered By: Cathie Vargas on 02-23-2024 Albumin/Creatinine DL <= 20 mg/L (U) [Mass ratio] TNP [facility] Comment on above: Test not performed HbA1c HPLC (Bld) [Mass fract ion]on 12-13-2023 HbA1c (Bld) [Mass fraction] 9.9 % [facility] No Panel Informationon 12-12 Bedside Glucose 118 [facility] No Panel Informationon 09-28 Bedside Glucose 278 [facility] HbA1c HPLC (Bld) [Mass fract ion]on 07-28-2023 HbA1c (Bld) [Mass fraction] 10.3 % [facility] No Panel Informationon 07-27 Bedside Glucose 126 [facility] Basophils Auto (Bld) [#/Vol] on 07-12-2023 Basophils (Bld) [#/Vol] 0.0 10 3/uL 0.0-0.1 [facility] Basophils/100 WBC Auto (Bld) on 07-12-2023 Basophils/100 WBC (Bld) 0.5 % 0.2-2.0 [facility] Eosinophils/100 WBC Auto (Bl d)on 07-12-2023 Eosinophils/100 WBC (Bld) 1.5 % 0.9-7.0 [facility] Erythrocyte distribution wid th Auto (RBC) [Ratio]on 07-12-2023 Erythrocyte distribution width (RBC) [Ratio] 12.7 % 11.0-15.0 [facility] Estimated glomerular filtrat ion rate (GFR) non- Americanon 07-12-2023 GFR/1.73 sq M.predicted among non-blacks MDRD (S/P/Bld) [Vol rate/Area] mL/min/{1.73_m2} >=60 [facility] Hematocrit Auto (Bld) [Volum e fraction]on 07-12-2023 Hematocrit (Bld) [Volume fraction] 42.8 % 36.0-48.0 [facility] Hemoglobin [Mass/volume] in Bloodon 07-12-2023 Hemoglobin (Bld) [Mass/Vol] 14.3 g/dL 12.0-16.0 [facility] Laboratory - Chemistry and C hemistry - challengeon 07-12-2023 Calcium [Mass/Vol] 9.1 mg/dL 8.5-10.1 [facility] Chloride [Moles/Vol] 100 mmol/L 98-107 [facility] CO2 [Moles/Vol] 26.1 mmol/L 21.0-32.0 [facility] Creatinine [Mass/Vol] 0.78 mg/dL 0.55-1.02 [facility] GFR/1.73 sq M.predicted MDRD (S/P/Bld) [Vol rate/Area] mL/min/{1.73_m2} >=60 [facility] Glucose [Mass/Vol] 215 mg/dL 74-106 [facility] Potassium [Moles/Vol] 4.0 mmol/L 3.5-5.1 [facility] Sodium [Moles/Vol] 137 mmol/L 136-145 [facility] Urea nitrogen [Mass/Vol] 12.0 mg/dL 7.0-18.0 [facility] Urea nitrogen/Creatinine [Mass ratio] 15.4 mg/mg [facility] Laboratory - Hematology and Cell countson 07-12-2023 Immature granulocytes/100 WBC (Bld) 0.1 % 0.0-0.5 [facility] Leukocytes [#/volume] correc alma delia for nucleated erythrocytes in Blood by Automated counon 07-12-2023 WBC corrected for nucl RBC Auto (Bld) [#/Vol] 7.8 10 3/uL 4.0-11.0 [facility] Lymphocytes Auto (Bld) [#/Vo l]on 07-12-2023 Lymphocytes (Bld) [#/Vol] 2.7 10 3/uL 1.2-3.8 [facility] Lymphocytes/100 WBC Auto (Bl d)on 07-12-2023 Lymphocytes/100 WBC (Bld) 34.1 % 20.5-60.0 [facility] MCH Auto (RBC) [Entitic mass ]on 07-12-2023 MCH (RBC) [Entitic mass] 29.2 pg 26.7-34.0 [facility] MCHC Auto (RBC) [Mass/Vol]on 07-12-2023 MCHC (RBC) [Mass/Vol] 33.4 g/dL 29.9-35.2 [facility] MCV Auto (RBC) [Entitic vol] on 07-12-2023 MCV (RBC) [Entitic vol] 87.5 fL 81.0-99.0 [facility] Monocytes Auto (Bld) [#/Vol] on 07-12-2023 Monocytes (Bld) [#/Vol] 0.5 10 3/uL 0.3-0.8 [facility] Monocytes/100 WBC Auto (Bld) on 07-12-2023 Monocytes/100 WBC (Bld) 6.4 % 1.7-12.0 [facility] Neutrophils Auto (Bld) [#/Vo l]on 07-12-2023 Neutrophils (Bld) [#/Vol] 4.5 10 3/uL 1.4-6.5 [facility] Neutrophils/100 WBC Auto (Bl d)on 07-12-2023 Neutrophils/100 WBC (Bld) 57.4 % 43.0-75.0 [facility] No Panel Informationon 07-11 Eosinophils # (Auto) 0.1 10 3/uL 0.0-0.7 [facility] Immature Granulocyte # (Auto) 0.01 10 3/uL 0.00-0.03 [facility] Platelet mean volume Auto (B ld) [Entitic vol]on 07-12-2023 Platelet mean volume (Bld) [Entitic vol] 10.9 fL 9.5-13.5 [facility] Platelets Auto (Bld) [#/Vol] on 07-12-2023 Platelets (Bld) [#/Vol] 259 10 3/uL 150-450 [facility] RBC Auto (Bld) [#/Vol]on RBC (Bld) [#/Vol] 4.89 10 6/uL 4.20-5.40 [facility] Serum or plasma anion gap de terminationon 07-12-2023 Anion gap [Moles/Vol] 14.9 mmol/L [facility] Glucose - FINGER STICKon Glucose [Mass/Vol] 360 mg/dL [facility] CBC AUTO DIFFon 08-27-2022 BASO # 0.0 103/ul Normal 0.0-0.[address] [facility] Comment on above: Performed By: #### C BC #### [facility] [address] [place] [address] Dr. Sarah Church Basophils/100 WBC (Bld) 0.5 % Normal 0.2-2.[address] [facility] Comment on above: Performed By: #### C BC #### [facility] [address] [place] [address] Dr. Sarah Church EO # 0.2 103/ul Normal 0.0-0.[address] [facility] Comment on above: Performed By: #### C BC #### [facility] [address] [place] [address] Dr. Sarah Church Eosinophils/100 WBC (Bld) 2.2 % Normal 0.9-7.[address] [facility] Comment on above: Performed By: #### C BC #### [facility] [address] [place] [address] Dr. Sarah Church Erythrocyte distribution width (RBC) [Ratio] 12.5 % Normal 11.0-15.[address] [facility] Comment on above: Performed By: #### C BC #### [facility] [address] [place] [address] Dr. Sarah Church Hematocrit (Bld) [Volume fraction] 44.1 % Normal 36.0-48.[address] [facility] Comment on above: Performed By: #### C BC #### [facility] [address] [place] [address] Dr. Sarah Church Hemoglobin (Bld) [Mass/Vol] 15.1 g/dL Normal 12.0-16.[address] [facility] Comment on above: Performed By: #### C BC #### [facility] [address] [place] [address] Dr. Sarah Church IG # 0.02 10e3/ul Normal 0.00-0.[address] [facility] Comment on above: Performed By: #### C BC #### [facility] [address] [place] [address] Dr. Sarah Church IG % 0.2 % Normal 0.0-0.[address] [facility] Comment on above: Performed By: #### C BC #### [facility] [address] [place] [address] Dr. Sarah Church LYMPH # 2.9 103/ul Normal 1.2-3.[address] [facility] Comment on above: Performed By: #### C BC #### [facility] [address] [place] [address] Dr. Sarah Church Lymphocytes/100 WBC (Bld) 33.4 % Normal 20.5-60.[address] [facility] Comment on above: Performed By: #### C BC #### [facility] [address] [place] [address] Dr. Sarah Church MANUAL DIFF REQ NO Normal [facility] Comment on above: Performed By: #### C BC #### [facility] [address] [place] [address] Dr. Sarah Church MCH (RBC) [Entitic mass] 29.1 pg Normal 26.7-34.[address] [facility] Comment on above: Performed By: #### C BC #### [facility] [address] [place] [address] Dr. Sarah Church MCHC (RBC) [Mass/Vol] 34.2 g/dL Normal 29.9-35.[address] [facility] Comment on above: Performed By: #### C BC #### [facility] [address] [place] [address] Dr. Sarah Church MCV (RBC) [Entitic vol] 85.0 fL Normal 81.0-99.[address] [facility] Comment on above: Performed By: #### C BC #### [facility] [address] [place] [address] Dr. Sarah Church MONO # 0.6 103/ul Normal 0.3-0.[address] [facility] Comment on above: Performed By: #### C BC #### [facility] [address] [place] [address] Dr. Sarah Church Monocytes/100 WBC (Bld) 6.8 % Normal 1.7-12.[address] [facility] Comment on above: Performed By: #### C BC #### [facility] [address] [place] [address] Dr. Sarah Church NEUT # 4.9 103/ul Normal 1.4-6.[address] [facility] Comment on above: Performed By: #### C BC #### [facility] [address] [place] [address] Dr. aSrah Church Neutrophils/100 WBC (Bld) 56.9 % Normal 43.0-75.[address] [facility] Comment on above: Performed By: #### C BC #### [facility] [address] [place] [address] Dr. Sarah Church Platelet mean volume (Bld) [Entitic vol] 10.8 fL Normal 9.5-13.[address] [facility] Comment on above: Performed By: #### C BC #### [facility] [address] [place] [address] Dr. Sarah Church PLT 276 103/ul Normal 150-450 [facility] Comment on above: Performed By: #### C BC #### [facility] [address] [place] [address] Dr. Sarah Church RBC 5.19 106/ul Normal 4.20-5.40 [facility] Comment on above: Performed By: #### C BC #### [facility] [address] [place] [address] Dr. Sarah Church WBC 8.6 103/ul Normal 4.0-11.0 [facility] Comment on above: Performed By: #### C BC #### [facility] [address] [address] [address] Sarah Church LIPID PROFILEon 08-27-2022 CHOL-HDL RATIO NORM SEE BELOW Normal [facility] Comment on above: Result Comment: 3.3 - 4.4 LOW RISK 4.4 - 7.1 AVERAGE RISK 7.1 - 11.0 MODERATE RISK >11.0 HIGH RISK Performed By: #### L IPID, CMP #### [facility] [address] [address] [address] Sarah Church Cholesterol [Mass/Vol] 110 mg/dL Normal <=[address] [facility] Comment on above: Performed By: #### L IPID, CMP #### [facility] [address] [address] [address] Sarah Church Cholesterol in HDL [Mass/Vol] 33 mg/dL Critically low 40-[address] [facility] Comment on above: Performed By: #### L IPID, CMP #### [facility] [address] [address] [address] Sarah Church Cholesterol in LDL [Mass/Vol] 58.0 mg/dL Normal [facility] Comment on above: Performed By: #### L IPID, CMP #### [facility] [address] [address] [address] Sarah Church Cholesterol.total/Ch olesterol in HDL [Mass ratio] 3.3 {ratio} Normal [facility] Comment on above: Performed By: #### L IPID, CMP #### [facility] [address] [address] [address] Sarah Church HDL NORMAL > or = 60 mg/dl - LOW CARDIOVASCULAR RISK <40 mg/dl - HIGH CARDIOVASCULAR RISK Normal [facility] Comment on above: Performed By: #### L IPID, CMP #### [facility] [address] [place] [address] Dr. Sarah Church LDL CALC NORMAL SEE BELOW Normal [facility] Comment on above: Result Comment: <100 mg/dl OPTIMAL 100 - 129 mg/dl NEAR OR ABOVE OPTIMAL 130 - 159 mg/dl BORDERLINE HIGH 160 - 189 mg/dl HIGH >190 mg/dl VERY HIGH Performed By: #### L IPID, CMP #### [facility] [address] [place] [address] Dr. Sarah Church Triglyceride [Mass/Vol] 95 mg/dL Normal <=[address] [facility] Comment on above: Performed By: #### L IPID, CMP #### [facility] [address] [place] [address] Dr. Sarah Church VLDL CALC 19.0 mg/dL Normal [facility] Comment on above: Performed By: #### L IPID, CMP #### [facility] [address] [place] [address] Dr. Sarah Church PROF 14(COMP METB)on 023 Albumin [Mass/Vol] 3.3 g/dL Critically low 3.4-5.0 [facility] Comment on above: Performed By: #### L IPID, CMP #### [facility] [address] [place] [address] Dr. Sarah Church Albumin/Globulin [Mass ratio] 0.8 {ratio} Normal [facility] Comment on above: Performed By: #### L IPID, CMP #### [facility] [address] [place] [address] Dr. Sarah Church ALP [Catalytic activity/Vol] 100 U/L Normal 46-[address] [facility] Comment on above: Performed By: #### L IPID, CMP #### [facility] [address] [place] [address] Dr. Sarah Church ALT [Catalytic activity/Vol] 74 U/L Critically high 14-[address] [facility] Comment on above: Performed By: #### L IPID, CMP #### [facility] [address] [place] [address] Dr. Sarah Church Anion gap [Moles/Vol] 13.2 mmol/L Normal [facility] Comment on above: Performed By: #### L IPID, CMP #### [facility] [address] [place] [address] Dr. Sarah Church AST [Catalytic activity/Vol] 42 U/L Critically high 15-37 [facility] Comment on above: Performed By: #### L IPID, CMP #### [facility] [address] [address] [address] Sarah Church Bilirubin [Mass/Vol] 0.4 mg/dL Normal 0.2-1.[address] [facility] Comment on above: Performed By: #### L IPID, CMP #### [facility] [address] [place] [address] Dr. Sarah Church Calcium [Mass/Vol] 9.2 mg/dL Normal 8.5-10.1 [facility] Comment on above: Performed By: #### L IPID, CMP #### [facility] [address] [place] [address] Dr. Sarah Church Chloride [Moles/Vol] 99 mmol/L Normal 98-[address] [facility] Comment on above: Performed By: #### L IPID, CMP #### [facility] [address] [place] [address] Dr. Sarah Church CO2 [Moles/Vol] 30.4 mmol/L Normal 21.0-32.[address] [facility] Comment on above: Performed By: #### L IPID, CMP #### [facility] [address] [place] [address] Dr. Sarah Church Creatinine [Mass/Vol] 0.78 mg/dL Normal 0.55-1.[address] [facility] Comment on above: Performed By: #### L IPID, CMP #### [facility] [facility] [address] [place] [address] Dr. Sarah Church EGFR-AF SAMMARINESE >60 Normal >=[address] [facility] Comment on above: Performed By: #### L IPID, CMP #### [facility] [address] [place] [address] Dr. Sarah Church EGFR-NON AF SAMMARINESE >60 Normal >=[address] [facility] Comment on above: Performed By: #### L IPID, CMP #### [facility] [address] [place] [address] Dr. Sarah Church Globulin (S) [Mass/Vol] 4.0 g/dL Normal [facility] Comment on above: Performed By: #### L IPID, CMP #### [facility] [address] [place] [address] Dr. Sarah Church Glucose [Mass/Vol] 255 mg/dL Critically high 74-106 [facility] Comment on above: Performed By: #### L IPID, CMP #### [facility] [address] [place] [address] Dr. Sarah Church Potassium [Moles/Vol] 3.6 mmol/L Normal 3.5-5.[address] [facility] Comment on above: Performed By: #### L IPID, CMP #### [facility] [address] [place] [address] Dr. Sarah Church Protein [Mass/Vol] 7.3 g/dL Normal 6.4-8.2 [facility] Comment on above: Performed By: #### L IPID, CMP #### [facility] [address] [place] [address] Dr. Sarah Church Sodium [Moles/Vol] 139 mmol/L Normal 136-145 [facility] Comment on above: Performed By: #### L IPID, CMP #### [facility] [address] [place] [address] Dr. Sarah Church Urea nitrogen [Mass/Vol] 8.0 mg/dL Normal 7.0-18.[address] [facility] Comment on above: Performed By: #### L IPID, CMP #### [facility] [address] [place] [address] Dr. Sarah Church Urea nitrogen/Creatinine [Mass ratio] 10.3 mg/mg Normal [facility] Comment on above: Performed By: #### L IPID, CMP #### [facility] [address] [place] [address] Dr. Sarah Church MG MAMM SCREEN 3D ROB CADon 07-20-2022 MG MAMM SCREEN 3D ROB CAD Patient: ZOILA RAMOS Exam Date: 07/20/2022 : 1970 Gender:F Ordering : DR SHAYY DELA CRUZ M.D. Admission #: [id number] Family : Order #: [id number] CLICK HERE TO VIEW EXAM RADIOLOGY REPORT PROCEDURE: MAMMOGRAM SCREENING 3D BILATERAL CAD COMPARISON: MAMMO ROB SCREEN W CAD DIG, 05/16/2012. INDICATIONS: Screening mammography Calculator Name NCI Breast Cancer Risk Assessment Tool 5 Year Breast Cancer Risk 1.20% Lifetime Breast Cancer Risk 10.80% Personal Breast Cancer No Personal Ovarian Cancer No Treatments None Family Cancers None LOCATION: [facility] BREAST COMPOSITION: Almost entirely fatty. FINDINGS: [...] on 07/21/2022 at 08:[address] [facility] PROF CHEM 8 (BAS METB)on Anion gap [Moles/Vol] 14.5 mmol/L Normal [facility] Comment on above: Performed By: #### B MP #### [facility] [address] [place] [address] Dr. Sarah Church Calcium [Mass/Vol] 9.8 mg/dL Normal 8.5-10.1 [facility] Comment on above: Performed By: #### B MP #### [facility] [address] [address] [address] Sarah Church Chloride [Moles/Vol] 99 mmol/L Normal 98-[address] [facility] Comment on above: Performed By: #### B MP #### [facility] [address] [address] [address] Sarah Church CO2 [Moles/Vol] 27.2 mmol/L Normal 21.0-32.0 [facility] Comment on above: Performed By: #### B MP #### [facility] [address] [address] [address] Sarah Church Creatinine [Mass/Vol] 0.80 mg/dL Normal 0.55-1.[address] [facility] Comment on above: Performed By: #### B MP #### [facility] [address] [address] [address] Sarah Church EGFR-AF SAMMARINESE >60 Normal >=60 [facility] Comment on above: Performed By: #### B MP #### [facility] [address] [address] [address] Sarah Church EGFR-NON AF SAMMARINESE >60 Normal >=[address] [facility] Comment on above: Performed By: #### B MP #### [facility] [address] [address] [address] Sarah Church Glucose [Mass/Vol] 458 mg/dL Critically high 74-106 [facility] Comment on above: Performed By: #### B MP #### [facility] [address] [address] [address] Sarah Church Potassium [Moles/Vol] 4.7 mmol/L Normal 3.5-5.[address] [facility] Comment on above: Performed By: #### B MP #### [facility] [address] [address] [address] Sarah Church Sodium [Moles/Vol] 136 mmol/L Normal 136-145 [facility] Comment on above: Performed By: #### B MP #### [facility] [address] [address] [address] aSrah Church Urea nitrogen [Mass/Vol] 15.0 mg/dL Normal 7.0-18.[address] [facility] Comment on above: Performed By: #### B MP #### [facility] [address] [address] [address] Sarah Church Urea nitrogen/Creatinine [Mass ratio] 18.8 mg/mg Normal [facility] Comment on above: Performed By: #### B MP #### [facility] [address] [address] [address] Sarah Church GLYCOHEMOGLOBIN A1Con 2022 ADA RECOMMENDATION SEE BELOW Normal [facility] Comment on above: Result Comment: ADA RECOMMENDED LIMIT 4.0 - 6.0 ADA THERAPEUTIC TARGET < 7.0 ACTION SUGGESTED > 7.0 Performed By: #### A 1C ####[facility] [address] [id number]. Sarah Church Glucose [Mass/Vol] 266 mg/dL Normal [facility] Comment on above: Performed By: #### A 1C ####[facility] [address] [address]DrCoretta Church HbA1c (Bld) [Mass fraction] 10.9 % Critically high 4.5-6.[address] [facility] Comment on above: Performed By: #### A 1C ####[facility] [address] [address]Dr. Sarah Church XR HIP RT 2 3V [...] JAVAD ROB Date: 2022-04-06 21:15 Normal [facility] CBC AUTO DIFFon 11-05-2021 BASO # 0.1 103/ul Normal 0.0-0.[address] [facility] Comment on above: Performed By: #### C BC #### [facility] [address] [place] [address] Dr. Sarah Church Basophils/100 WBC (Bld) 0.4 % Normal 0.2-2.[address] [facility] Comment on above: Performed By: #### C BC #### [facility] [address] [address] [address] Sarah Church EO # 0.2 103/ul Normal 0.0-0.[address] [facility] Comment on above: Performed By: #### C BC #### [facility] [address] [address] [address] Sarah Church Eosinophils/100 WBC (Bld) 1.3 % Normal 0.9-7.[address] [facility] Comment on above: Performed By: #### C BC #### [facility] [address] [place] [address] Dr. Sarah Church Erythrocyte distribution width (RBC) [Ratio] 12.3 % Normal 11.0-15.[address] [facility] Comment on above: Performed By: #### C BC #### [facility] [address] [place] [address] Dr. Sarah Church Hematocrit (Bld) [Volume fraction] 43.1 % Normal 36.0-48.[address] [facility] Comment on above: Performed By: #### C BC #### [facility] [address] [place] [address] Dr. Sarah Church Hemoglobin (Bld) [Mass/Vol] 14.6 g/dL Normal 12.0-16.[address] [facility] Comment on above: Performed By: #### C BC #### [facility] [address] [place] [address] Dr. Sarah Church IG # 0.04 10e3/ul Critically high 0.00-0.03 [facility] Comment on above: Performed By: #### C BC #### [facility] [address] [place] [address] Dr. Sarah Church IG % 0.3 % Normal 0.0-0.[address] [facility] Comment on above: Performed By: #### C BC #### [facility] [address] [place] [address] Dr. Sarah Church LYMPH # 1.6 103/ul Normal 1.2-3.[address] [facility] Comment on above: Performed By: #### C BC #### [facility] [address] [place] [address] Dr. Sarah Church Lymphocytes/100 WBC (Bld) 12.5 % Critically low 20.5-60.[address] [facility] Comment on above: Performed By: #### C BC #### [facility] [address] [place] [address] Dr. Sarah Church MANUAL DIFF REQ NO Normal [facility] Comment on above: Performed By: #### C BC #### [facility] [address] [address] [address] Sarah Church MCH (RBC) [Entitic mass] 29.4 pg Normal 26.7-34.[address] [facility] Comment on above: Performed By: #### C BC #### [facility] [address] [address] [address] Sarah Church MCHC (RBC) [Mass/Vol] 33.9 g/dL Normal 29.9-35.[address] [facility] Comment on above: Performed By: #### C BC #### [facility] [address] [address] [address] Sarah Church MCV (RBC) [Entitic vol] 86.7 fL Normal 81.0-99.[address] [facility] Comment on above: Performed By: #### C BC #### [facility] [address] [place] [address] Dr. Sarah Church MONO # 1.0 103/ul Critically high 0.3-0.8 [facility] Comment on above: Performed By: #### C BC #### [facility] [address] [place] [address] Dr. Sarah Church Monocytes/100 WBC (Bld) 7.7 % Normal 1.7-12.0 [facility] Comment on above: Performed By: #### C BC #### [facility] [address] [address] [address] Sarah Church NEUT # 9.6 103/ul Critically high 1.4-6.5 [facility] Comment on above: Performed By: #### C BC #### [facility] [address] [address] [address] Sarah Church Neutrophils/100 WBC (Bld) 77.8 % Critically high 43.0-75.0 [facility] Comment on above: Performed By: #### C BC #### [facility] [address] [place] [address] Dr. Sarah Church Platelet mean volume (Bld) [Entitic vol] 11.0 fL Normal 9.5-13.[address] [facility] Comment on above: Performed By: #### C BC #### [facility] [address] [address] [address] Sarah Church PLT 220 103/ul Normal 150-[address] [facility] Comment on above: Performed By: #### C BC #### [facility] [address] [address] [address] Sarah Church RBC 4.97 106/ul Normal 4.20-5.[address] [facility] Comment on above: Performed By: #### C BC #### [facility] [address] [address] [address] Sarah Church WBC 12.4 103/ul Critically high 4.0-11.0 [facility] Comment on above: Performed By: #### C BC #### [facility] [address] [place] [address] Dr. Sarah Church GROUP A STREP CULTUREon S. pyogenes Ag Ql (Unsp spec) Culture Observations: NEGATIVE FOR GROUP A STREPTOCOCCUS. Normal [facility] Comment on above: Performed By: #### G RASTCX, SSCRN ####[facility] [address] [address]Dr. Sarah Church POINT OF CARE GLUCOSEon Glucose [Mass/Vol] 214 mg/dL Critically high 74-106 [facility] Comment on above: Performed By: #### P OCGLUC #### [facility] [address] [place] [address] Dr. Sarah Church STREPT SCREENon 11-05-2021 STREP SCREEN A Negative Normal NEGATIVE [facility] Comment on above: Performed By: #### G RASTCX, SSCRN ####[facility] [address] [address]Dr. Sarah Church CBC AUTO DIFFon 10-16-2021 BASO # 0.1 103/ul Normal 0.0-0.[address] [facility] Comment on above: Performed By: #### C BC #### [facility] [address] [place] [address] Dr. Sarah Church Basophils/100 WBC (Bld) 0.8 % Normal 0.2-2.[address] [facility] Comment on above: Performed By: #### C BC #### [facility] [address] [place] [address] Dr. Sarah Church EO # 0.3 103/ul Normal 0.0-0.7 [facility] Comment on above: Performed By: #### C BC #### [facility] [address] [place] [address] Dr. Sarah Church Eosinophils/100 WBC (Bld) 3.4 % Normal 0.9-7.[address] [facility] Comment on above: Performed By: #### C BC #### [facility] [address] [place] [address] Dr. Sarah Church Erythrocyte distribution width (RBC) [Ratio] 12.6 % Normal 11.0-15.[address] [facility] Comment on above: Performed By: #### C BC #### [facility] [address] [place] [address] Dr. Sarah Church Hematocrit (Bld) [Volume fraction] 45.4 % Normal 36.0-48.[address] [facility] Comment on above: Performed By: #### C BC #### [facility] [address] [place] [address] Dr. Sarah Church Hemoglobin (Bld) [Mass/Vol] 15.0 g/dL Normal 12.0-16.[address] [facility] Comment on above: Performed By: #### C BC #### [facility] [address] [place] [address] Dr. Sarah hCurch IG # 0.02 10e3/ul Normal 0.00-0.[address] [facility] Comment on above: Performed By: #### C BC #### [facility] [address] [place] [address] Dr. Sarah Church IG % 0.2 % Normal 0.0-0.5 [facility] Comment on above: Performed By: #### C BC #### [facility] [address] [place] [address] Dr. Sarah Church LYMPH # 2.7 103/ul Normal 1.2-3.[address] [facility] Comment on above: Performed By: #### C BC #### [facility] [address] [place] [address] Dr. Sarah Church Lymphocytes/100 WBC (Bld) 31.0 % Normal 20.5-60.[address] [facility] Comment on above: Performed By: #### C BC #### [facility] [address] [place] [address] Dr. Sarah Church MANUAL DIFF REQ NO Normal [facility] Comment on above: Performed By: #### C BC #### [facility] [address] [place] [address] Dr. Sarah Church MCH (RBC) [Entitic mass] 29.3 pg Normal 26.7-34.[address] [facility] Comment on above: Performed By: #### C BC #### [facility] [address] [place] [address] Dr. Sarah Church MCHC (RBC) [Mass/Vol] 33.0 g/dL Normal 29.9-35.[address] [facility] Comment on above: Performed By: #### C BC #### [facility] [address] [place] [address] Dr. Sarah Church MCV (RBC) [Entitic vol] 88.7 fL Normal 81.0-99.[address] [facility] Comment on above: Performed By: #### C BC #### [facility] [address] [place] [address] Dr. Sarah Church MONO # 0.6 103/ul Normal 0.3-0.[address] [facility] Comment on above: Performed By: #### C BC #### [facility] [address] [place] [address] Dr. Sarah Church Monocytes/100 WBC (Bld) 6.5 % Normal 1.7-12.[address] [facility] Comment on above: Performed By: #### C BC #### [facility] [address] [place] [address] Dr. Sarah Church NEUT # 5.0 103/ul Normal 1.4-6.[address] [facility] Comment on above: Performed By: #### C BC #### [facility] [address] [address] [address] Sarah Church Neutrophils/100 WBC (Bld) 58.1 % Normal 43.0-75.[address] [facility] Comment on above: Performed By: #### C BC #### [facility] [address] [address] [address] Sarah Church Platelet mean volume (Bld) [Entitic vol] 11.0 fL Normal 9.5-13.[address] [facility] Comment on above: Performed By: #### C BC #### [facility] [address] [address] [address] Sarah Church PLT 226 103/ul Normal 150-[address] [facility] Comment on above: Performed By: #### C BC #### [facility] [address] [address] [address] Sarah Church RBC 5.12 106/ul Normal 4.20-5.[address] [facility] Comment on above: Performed By: #### C BC #### [facility] [address] [address] [address] Sarah Church WBC 8.6 103/ul Normal 4.0-11.[address] [facility] Comment on above: Performed By: #### C BC #### [facility] [address] [address] [address] Sarah Church GLYCOHEMOGLOBIN A1Con 2021 ADA RECOMMENDATION SEE BELOW Normal [facility] Comment on above: Result Comment: ADA RECOMMENDED LIMIT 4.0 - 6.0 ADA THERAPEUTIC TARGET < 7.0 ACTION SUGGESTED > 7.0 Performed By: #### A 1C ####[facility] [address] [address]Dr. Sarah Church Glucose [Mass/Vol] 275 mg/dL Normal [facility] Comment on above: Performed By: #### A 1C ####[facility] [address] [id number]. Sarah Church HbA1c (Bld) [Mass fraction] 11.2 % Critically high 4.5-6.[address] [facility] Comment on above: Performed By: #### A 1C ####[facility] [address] [place], [place] [address]Dx. Sarah Church LIPID PROFILEon 10-16-2021 CHOL-HDL RATIO NORM SEE BELOW Normal [facility] Comment on above: Result Comment: 3.3 - 4.4 LOW RISK 4.4 - 7.1 AVERAGE RISK 7.1 - 11.0 MODERATE RISK >11.0 HIGH RISK Performed By: #### L IPID, CMP ####[facility] [address] [place], [place] [address]En. Sarah Church Cholesterol [Mass/Vol] 159 mg/dL Normal <=[address] [facility] Comment on above: Performed By: #### L IPID, CMP ####[facility] [address] [place], [place] [address]Ag. Sarah Church Cholesterol in HDL [Mass/Vol] 41 mg/dL Normal 40-[address] [facility] Comment on above: Performed By: #### L IPID, CMP ####[facility] [address] [place], [place] [address]Zz. Sarah Church Cholesterol in LDL [Mass/Vol] 102.6 mg/dL Normal [facility] Comment on above: Performed By: #### L IPID, CMP ####[facility] [address] [place], [place] [address]Vg. Sarah Church Cholesterol.total/Ch olesterol in HDL [Mass ratio] 3.9 {ratio} Normal [facility] Comment on above: Performed By: #### L IPID, CMP ####[facility] [address] [place], [place] [address]Wz. Sarah Church HDL NORMAL > or = 60 mg/dl - LOW CARDIOVASCULAR RISK <40 mg/dl - HIGH CARDIOVASCULAR RISK Normal [facility] Comment on above: Performed By: #### L IPID, CMP ####[facility] [address] [place], [place] [address]Mg. Sarah Church LDL CALC NORMAL SEE BELOW Normal [facility] Comment on above: Result Comment: <100 mg/dl OPTIMAL 100 - 129 mg/dl NEAR OR ABOVE OPTIMAL 130 - 159 mg/dl BORDERLINE HIGH 160 - 189 mg/dl HIGH >190 mg/dl VERY HIGH Performed By: #### L IPID, CMP ####[facility] [address] [address]Dr. Sarah Church Triglyceride [Mass/Vol] 77 mg/dL Normal <=[address] [facility] Comment on above: Performed By: #### L IPID, CMP ####[facility] [address] [address]Dr. Sarah Church VLDL CALC 15.4 mg/dL Normal [facility] Comment on above: Performed By: #### L IPID, CMP ####[facility] [address] [address]Dr. Sarah Church MICROALBUMIN, RAND URon 09-30 mALB 2.0 mg/L Normal <=30.0 [facility] Comment on above: Performed By: #### M ALBR #### [facility] [address] [address] [address] Sarah Church PROF 14(COMP METB)on 022 Albumin [Mass/Vol] 3.5 g/dL Normal 3.4-5.0 [facility] Comment on above: Performed By: #### L IPID, CMP ####[facility] [address] [address]Dr. Sarah Church Albumin/Globulin [Mass ratio] 0.8 {ratio} Normal [facility] Comment on above: Performed By: #### L IPID, CMP ####[facility] [address] [address]Dr. Sarah Church ALP [Catalytic activity/Vol] 85 U/L Normal 46-116 [facility] Comment on above: Performed By: #### L IPID, CMP ####[facility] [address] [address]DrCoretta Church ALT [Catalytic activity/Vol] 59 U/L Normal 14-59 [facility] Comment on above: Performed By: #### L IPID, CMP ####[facility] [address] [address]Dr. Sarah Church Anion gap [Moles/Vol] 15.1 mmol/L Normal [facility] Comment on above: Performed By: #### L IPID, CMP ####[facility] [address] [address]Dr. Sarah Church AST [Catalytic activity/Vol] 32 U/L Normal 15-37 [facility] Comment on above: Performed By: #### L IPID, CMP ####[facility] [address] [address]Dr. Sarah Church Bilirubin [Mass/Vol] 0.4 mg/dL Normal 0.2-1.[address] [facility] Comment on above: Performed By: #### L IPID, CMP ####[facility] [address] [place], [place] [address]Dr. Sarah Church Calcium [Mass/Vol] 9.0 mg/dL Normal 8.5-10.1 [facility] Comment on above: Performed By: #### L IPID, CMP ####[facility] [address] [place], [place] [address]Dr. Sarah Church Chloride [Moles/Vol] 102 mmol/L Normal 98-107 [facility] Comment on above: Performed By: #### L IPID, CMP ####[facility] [address] [place], [place] [address]Dr. Sarah Church CO2 [Moles/Vol] 30.2 mmol/L Normal 21.0-32.[address] [facility] Comment on above: Performed By: #### L IPID, CMP ####[facility] [address] [place], [place] [address]Dr. Sarah Church Creatinine [Mass/Vol] 0.81 mg/dL Normal 0.55-1.[address] [facility] Comment on above: Performed By: #### L IPID, CMP ####[facility] [address] [place], [place] [address]Dr. Sarah Church EGFR-AF SAMMARINESE >60 Normal >=[address] [facility] Comment on above: Performed By: #### L IPID, CMP ####[facility] [address] [address]Dr. Sarah Church EGFR-NON AF SAMMARINESE >60 Normal >=60 [facility] Comment on above: Performed By: #### L IPID, CMP ####[facility] [address] [address]Dr. Sarah Church Globulin (S) [Mass/Vol] 3.9 g/dL Normal [facility] Comment on above: Performed By: #### L IPID, CMP ####[facility] [address] [place], [place] [address]Dr. Sarah Church Glucose [Mass/Vol] 218 mg/dL Critically high 74-106 [facility] Comment on above: Performed By: #### L IPID, CMP ####[facility] [address] [place], [place] [address]Dr. Sarah Ranjit Potassium [Moles/Vol] 4.3 mmol/L Normal 3.5-5.[address] [facility] [address] [facility] [facility] Comment on above: Performed By: #### L IPID, CMP ####[facility] [id number] [place], [place] [address]Dr. Sarah Church Protein [Mass/Vol] 7.4 g/dL Normal 6.4-8.2 [facility] Comment on above: Performed By: #### L IPID, CMP ####[facility] [id number] [place], [place] [address]Dr. Sarah Church Sodium [Moles/Vol] 143 mmol/L Normal 136-145 [facility] Comment on above: Performed By: #### L IPID, CMP ####[facility] [id number] [place], [place] [address]Dr. Sarah Church Urea nitrogen [Mass/Vol] 14.0 mg/dL Normal 7.0-18.[address] [facility] Comment on above: Performed By: #### L IPID, CMP ####[facility] [id number] [place], [place] [address]Dr. Sarah Church Urea nitrogen/Creatinine [Mass ratio] 17.2 mg/mg Normal [facility] Comment on above: Performed By: #### L IPID, CMP ####[facility] [id number] [place], [place] [address]Ad. Sarah Church Vital Signs Date Time Vital Sign Value Performing Clinician Facility 08-23-2024 13:43-0400 Body height 157.48 cm Shayy Dela Cruz MD Work Phone: [facility] 08-23-2024 13:43-0400 Body mass index (BMI) [Ratio] 40 kg/m2 Shayy Dela Cruz MD Work Phone: [phone] [place] [address] 08-23-2024 13:43-0400 Body weight 99.33 kg Shayy Dela Cruz MD Work Phone: [facility] 08-23-2024 13:43-0400 Diastolic blood pressure 77 mm[Hg] Shayy Dela Cruz MD Work Phone: [facility] 08-23-2024 13:43-0400 Heart rate 89 /min Shayy Dela Cruz MD Work Phone: [facility] 08-23-2024 13:43-0400 Systolic blood pressure 169 mm[Hg] Shayy Dela Cruz MD Work Phone: [facility] 08-07-2024 13:09-0400 Body height 157.48 cm Shayy Dela Cruz MD Work Phone: [facility] 08-07-2024 13:09-0400 Diastolic blood pressure 74 mm[Hg] Shayy Dela Cruz MD Work Phone: [facility] 08-07-2024 13:09-0400 Heart rate 85 /min Shayy Dela Cruz MD Work Phone: [facility] 08-07-2024 13:09-0400 Respiratory rate 18 /min Shayy Dela Cruz MD Work Phone: [facility] 08-07-2024 13:09-0400 SaO2% (BldA) [Mass fraction] 96 % Shayy Dela Cruz MD Work Phone: [facility] 08-07-2024 13:09-0400 Systolic blood pressure 142 mm[Hg] Shayy Dela Cruz MD Work Phone: [facility] 06-14-2024 10:21-0500 Body height 157.5 cm Nacho Patiño MD Work Phone: [facility] 06-14-2024 10:21-0500 Body mass index (BMI) [Ratio] 38.59 kg/m2 Nacho Patiño MD Work Phone: [facility] 06-14-2024 10:21-0500 Body temperature 97.3 [degF] Nacho Patiño MD Work Phone: [facility] 06-14-2024 10:21-0500 Body weight 95.71 kg Nacho Patiño MD Work Phone: [facility] 06-14-2024 10:21-0500 Diastolic blood pressure 82 mm[Hg] Nacho Patiño MD Work Phone: [facility] 06-14-2024 10:21-0500 Heart rate 88 /min Nacho Patiño MD Work Phone: [facility] 06-14-2024 10:21-0500 SaO2% (BldA) [Mass fraction] 97 % Nacho Patiño MD Work Phone: [facility] 06-14-2024 10:21-0500 Systolic blood pressure 136 mm[Hg] Nacho Patiño MD Work Phone: [facility] 05-30-2024 10:48-0500 Body height 157.48 cm [facility] 05-30-2024 10:48-0500 Body mass index (BMI) [Ratio] 38.5 kg/m2 [facility] 05-30-2024 10:48-0500 Body weight 95.7 kg [facility] 05-30-2024 10:48-0500 Diastolic blood pressure 77 mm[Hg] [facility] 05-30-2024 10:48-0500 Heart rate 80 /min [facility] 05-30-2024 10:48-0500 Systolic blood pressure 133 mm[Hg] [facility] 02-23-2024 13:23-0400 Body height 157.48 cm [facility] 02-23-2024 13:23-0400 Body mass index (BMI) [Ratio] 38 kg/m2 [facility] 02-23-2024 13:23-0400 Body weight 94.37 kg [facility] 02-23-2024 13:23-0400 Diastolic blood pressure 78 mm[Hg] [facility] 02-23-2024 13:23-0400 Heart rate 75 /min [facility] 02-23-2024 13:23-0400 Respiratory rate 18 /min [facility] 02-23-2024 13:23-0400 SaO2% (BldA) [Mass fraction] 97 % [facility] 02-23-2024 13:23-0400 Systolic blood pressure 170 mm[Hg] [facility] 12-13-2023 13:03-0400 Body height 157.48 cm [facility] 12-13-2023 13:03-0400 Body mass index (BMI) [Ratio] 37.1 kg/m2 [facility] 12-13-2023 13:03-0400 Body weight 92.07 kg [facility] 12-13-2023 13:03-0400 Diastolic blood pressure 86 mm[Hg] [facility] 12-13-2023 13:03-0400 Heart rate 78 /min [facility] 12-13-2023 13:03-0400 Respiratory rate 18 /min [facility] 12-13-2023 13:03-0400 SaO2% (BldA) [Mass fraction] 96 % [facility] 12-13-2023 13:03-0400 Systolic blood pressure 153 mm[Hg] [facility] 12-05-2023 11:24-0400 Body height 157.48 cm [facility] 12-05-2023 11:24-0400 Body mass index (BMI) [Ratio] 36.9 kg/m2 [facility] 12-05-2023 11:24-0400 Body weight 91.62 kg [facility] 12-05-2023 11:24-0400 Diastolic blood pressure 75 mm[Hg] [facility] 12-05-2023 11:24-0400 Heart rate 80 /min [facility] 12-05-2023 11:24-0400 Systolic blood pressure 133 mm[Hg] [facility] 09-29-2023 13:44-0400 Diastolic blood pressure 76 mm[Hg] [facility] 09-29-2023 13:44-0400 Systolic blood pressure 130 mm[Hg] [facility] 09-29-2023 13:19-0400 Body height 157.48 cm [facility] 09-29-2023 13:19-0400 Body mass index (BMI) [Ratio] 38.7 kg/m2 [facility] 09-29-2023 13:19-0400 Body weight 95.9 kg [facility] 09-29-2023 13:19-0400 Heart rate 89 /min [facility] 09-29-2023 13:19-0400 Respiratory rate 18 /min [facility] 09-29-2023 13:19-0400 SaO2% (BldA) [Mass fraction] 98 % [facility] 09-06-2023 11:08-0400 Body height 157.48 cm [facility] 09-06-2023 11:08-0400 Body mass index (BMI) [Ratio] 37.6 kg/m2 [facility] 09-06-2023 11:08-0400 Body weight 93.44 kg [facility] 09-06-2023 11:08-0400 Diastolic blood pressure 72 mm[Hg] [facility] 09-06-2023 11:08-0400 Heart rate 89 /min [facility] 09-06-2023 11:08-0400 Systolic blood pressure 127 mm[Hg] [facility] 08-24-2023 15:08-0400 Body height 157.48 cm [facility] 08-24-2023 15:08-0400 Body mass index (BMI) [Ratio] 37.5 kg/m2 [facility] 08-24-2023 15:08-0400 Body weight 93.21 kg [facility] 08-19-2023 10:43-0400 Body height 157.48 cm MD Shayy Dela Cruz Work Phone: [facility] 08-19-2023 10:43-0400 Body mass index (BMI) [Ratio] 37.5 kg/m2 MD Shayy Dela Cruz Work Phone: [facility] 08-19-2023 10:43-0400 Body weight 93.09 kg MD Shayy Dela Cruz Work Phone: [facility] 08-19-2023 10:43-0400 Diastolic blood pressure 79 mm[Hg] MD Shayy Dela Cruz Work Phone: [facility] 08-19-2023 10:43-0400 Heart rate 83 /min MD Shayy Dela Cruz Work Phone: [facility] 08-19-2023 10:43-0400 Systolic blood pressure 135 mm[Hg] MD Shayy Dela Cruz Work Phone: [facility] 07-28-2023 14:22-0400 Body height 157.48 cm MD Shayy Dela Cruz Work Phone: [facility] 07-28-2023 14:22-0400 Body mass index (BMI) [Ratio] 37.6 kg/m2 MD Shayy Dela Cruz Work Phone: [facility] 07-28-2023 14:22-0400 Body weight 93.44 kg MD Shayy Dela Cruz Work Phone: [facility] 07-28-2023 14:22-0400 Diastolic blood pressure 84 mm[Hg] MD Shayy Dela Cruz Work Phone: [facility] 07-28-2023 14:22-0400 Heart rate 83 /min MD Shayy Dela Cruz Work Phone: [facility] 07-28-2023 14:22-0400 Respiratory rate 18 /min MD Shayy Dela Cruz Work Phone: [facility] 07-28-2023 14:22-0400 SaO2% (BldA) [Mass fraction] 97 % MD Shayy Dela Cruz Work Phone: [facility] 07-28-2023 14:22-0400 Systolic blood pressure 140 mm[Hg] MD Shayy Dela Cruz Work Phone: [facility] 07-19-2023 10:57-0400 Body height 157.48 cm MD Shayy Dela Cruz Work Phone: [facility] 07-19-2023 10:57-0400 Body mass index (BMI) [Ratio] 37.1 kg/m2 MD Shayy Dela Cruz Work Phone: [facility] 07-19-2023 10:57-0400 Body weight 92.07 kg MD Shayy Dela Cruz Work Phone: [facility] 07-19-2023 10:57-0400 Diastolic blood pressure 68 mm[Hg] MD Shayy Dela Cruz Work Phone: [facility] 07-19-2023 10:57-0400 Heart rate 89 /min MD Shayy Dela Cruz Work Phone: [facility] 07-19-2023 10:57-0400 Systolic blood pressure 132 mm[Hg] MD Shayy Dela Cruz Work Phone: [facility] 05-25-2023 11:00-0500 Body height 157.48 cm Cathie Scally Other [facility] 05-25-2023 11:00-0500 Body mass index (BMI) [Ratio] 37.23 kg/m2 Cathie Scally Other [facility] Other 05-25-2023 11:00-0500 Body weight 92.35 kg Cathie Scally Other [facility] 05-25-2023 11:00-0500 Diastolic blood pressure 71 mm[Hg] Cathie Scally Other [facility] 05-25-2023 11:00-0500 Respiratory rate 18 /min Cathie Vargas Other [facility] [employer] Other 05-25-2023 11:00-0500 SaO2% (BldA) [Mass fraction] 95 % Cathiesay Anguloly Other [facility] [employer] Other 05-25-2023 11:00-0500 Systolic blood pressure 139 mm[Hg] Cathiesay Anguloly Other [facility] 04-15-2023 11:00-0500 Body height 157.48 cm Shayy Dela Cruz Other [facility] 04-15-2023 11:00-0500 Body mass index (BMI) [Ratio] 37.49 kg/m2 Shayy Dela Cruz Other [facility] [employer] Other 04-15-2023 11:00-0500 Body weight 92.99 kg Shayy Dela Cruz Other [facility] [employer] Other 04-15-2023 11:00-0500 Body weight 92.98 kg MD Shayy Dela Cruz Work Phone: [facility] 04-15-2023 11:00-0500 Diastolic blood pressure 84 mm[Hg] Shayy Dela Cruz Other [facility] 04-15-2023 11:00-0500 Systolic blood pressure 142 mm[Hg] Shayy Dela Cruz Other [facility] 06-22-2022 13:30-0500 Body height 157.48 cm Shayy Dela Cruz Other [facility] Other 06-22-2022 13:30-0500 Body mass index (BMI) [Ratio] 36.94 kg/m2 Shayy Dela Cruz Other [facility] Other 06-22-2022 13:30-0500 Body weight 91.63 kg Shayy Dela Cruz Other [facility] Other 06-22-2022 13:30-0500 Diastolic blood pressure 74 mm[Hg] Shayy Dela Cruz Other [facility] Other 06-22-2022 13:30-0500 SaO2% (BldA) [Mass fraction] 97 % Shayy Dela Cruz Other [facility] Other 06-22-2022 13:30-0500 Systolic blood pressure 112 mm[Hg] Shayy Dela Cruz Other [facility] Other Encounters Encounter Date Encounter Type Care Provider Facility Start: 08-23-2024 End: 08-23-2024 ambulatory Shayy Dela Cruz MD Work Phone: [facility] Work Phone: Start: 08-23-2024 End: 08-23-2024 Patient encounter procedure Shayy Dela Cruz MD Work Phone: [facility] Work Phone: Start: 08-20-2024 Non-patient / Non-visit Shayy Dela Cruz MD Work Phone: [facility] Work Phone: Start: 08-07-2024 End: 08-07-2024 ambulatory Shayy Dela Cruz MD Work Phone: [facility] Work Phone: Start: 08-07-2024 End: 08-07-2024 Patient encounter procedure Shayy Dela Cruz MD Work Phone: [facility] Work Phone: Start: 07-19-2024 Non-patient / Non-visit Shayy Dela Cruz MD Work Phone: [facility] Work Phone: Start: 07-05-2024 End: 07-05-2024 ambulatory Shayy Dela Cruz MD Work Phone: [facility] Work Phone: Start: 07-05-2024 End: 07-05-2024 Departed Referred Shayy Dela Cruz MD Work Phone: [facility] Start: 06-21-2024 Non-patient / Non-visit Shayy Dela Cruz MD Work Phone: 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 Work Phone: Start: 06-12-2024 Non-patient / Non-visit Shayy Dela Cruz MD Work Phone: [facility] Work Phone: Start: 06-07-2024 Non-patient / Non-visit Shayy Dela Cruz MD Work Phone: [facility] Work Phone: Start: 06-01-2024 Non-patient / Non-visit Shayy Dela Cruz MD Work Phone: [facility] Work Phone: Start: 05-30-2024 Patient encounter status Shayy Dela Cruz MD Work Phone: [facility] Start: 05-30-2024 End: 05-30-2024 ambulatory [facility] Work Phone: Start: 05-30-2024 End: 05-30-2024 Encounter for general adult medical examination without abnormal findings Shayy Dela Cruz MD Work Phone: [facility] Start: 05-30-2024 End: 05-30-2024 Patient encounter procedure [facility] Work Phone: Start: 05-24-2024 End: 05-24-2024 ambulatory [facility] Work Phone: Start: 05-24-2024 End: 05-24-2024 Patient encounter procedure [facility] Work Phone: Start: 05-16-2024 Non-patient / Non-visit [facility] Work Phone: Start: 05-07-2024 Non-patient / Non-visit [facility] Work Phone: Start: 04-19-2024 End: 04-19-2024 Patient encounter procedure [facility] Work Phone: Start: 02-28-2024 Non-patient / Non-visit [facility] Work Phone: Start: 02-23-2024 End: 02-23-2024 ambulatory Cathie Vargas [facility] Work Phone: Start: 02-23-2024 End: 02-23-2024 Patient encounter procedure FATEMEH Vargas Work Phone: [facility] Work Phone: Start: 02-23-2024 End: 02-23-2024 ambulatory [facility] Work Phone: Start: 02-23-2024 End: 02-23-2024 Patient encounter procedure [facility] Work Phone: Start: 01-17-2024 End: 01-17-2024 ambulatory [facility] Work Phone: Start: 01-17-2024 End: 01-17-2024 Patient encounter procedure [facility] Work Phone: Start: 12-13-2023 End: 12-13-2023 ambulatory [facility] Work Phone: Start: 12-13-2023 End: 12-13-2023 Patient encounter procedure [facility] Work Phone: Start: 12-05-2023 End: 12-05-2023 ambulatory [facility] Work Phone: Start: 12-05-2023 End: 12-05-2023 Patient encounter procedure [facility] Work Phone: Start: 11-07-2023 End: 11-07-2023 ambulatory [facility] Work Phone: Start: 11-07-2023 End: 11-07-2023 Patient encounter procedure [facility] Work Phone: Start: 09-29-2023 End: 09-29-2023 ambulatory [facility] Work Phone: Start: 09-29-2023 End: 09-29-2023 Patient encounter procedure [facility] Work Phone: Start: 09-06-2023 End: 09-06-2023 ambulatory [facility] Work Phone: Start: 09-06-2023 End: 09-06-2023 Patient encounter procedure [facility] Work Phone: Start: 08-24-2023 End: 08-24-2023 ambulatory [facility] Work Phone: Start: 08-24-2023 End: 08-24-2023 Patient encounter procedure [facility] Work Phone: Start: 08-19-2023 End: 08-19-2023 ambulatory MD Shayy Dela Cruz Work Phone: [facility] Work Phone: Start: 08-19-2023 End: 08-19-2023 Patient encounter procedure MD Shayy Dela Cruz Work Phone: [facility] Work Phone: Start: 07-28-2023 End: 07-28-2023 ambulatory MD Shayy Dela Cruz Work Phone: [facility] Work Phone: Start: 07-28-2023 End: 07-28-2023 Patient encounter procedure MD Shayy Dela Cruz Work Phone: [facility] Work Phone: Start: 07-19-2023 End: 07-19-2023 ambulatory MD Shayy Dela Cruz Work Phone: [facility] Work Phone: Start: 07-19-2023 End: 07-19-2023 Patient encounter procedure MD Shayy Dela Cruz Work Phone: [facility] Work Phone: Start: 07-12-2023 Non-patient / Non-visit MD Qi Dela Cruz Work Phone: [facility] Work Phone: Start: 06-14-2023 End: 06-14-2023 ambulatory MD Shayy Deal Cruz Work Phone: [facility] Work Phone: Start: 06-14-2023 End: 06-14-2023 Patient encounter procedure MD Shayy Dela Cruz Work Phone: [facility] Work Phone: Start: 06-06-2023 End: 06-06-2023 ambulatory Shayy Dela Cruz Other [employer] Other Start: 06-06-2023 Telephone encounter Shayy Dela Cruz [facility] Start: 05-25-2023 FQHC visit new patient Cathie Sheikh y [facility] Start: 05-25-2023 End: 05-25-2023 ambulatory MD Shayy Dela Cruz Work Phone: [employer] Other Start: 05-25-2023 End: 05-25-2023 Discharged Recurring MD Shayy Dela Cruz Work Phone: [facility] Work Phone: Start: 05-25-2023 Registered Recurring MD [facility] Work Phone: Start: 05-25-2023 End: 05-25-2023 Patient encounter procedure MD Shayy Dela Cruz Work Phone: [facility]- Start: 05-12-2023 End: 05-12-2023 ambulatory Shayy Dela Cruz Other [employer] Other Start: 05-12-2023 Telephone encounter Shayy Dela Cruz [facility] Start: 05-10-2023 End: 05-10-2023 ambulatory Shayy Dela Cruz Other [employer] Other Start: 05-10-2023 Telephone encounter Shayy Dela Cruz [facility] Start: 04-22-2023 End: 04-22-2023 ambulatory Shayy Dela Cruz Other [facility] Other Start: 04-22-2023 Telephone encounter Shayy Dela Cruz [facility] Start: 04-20-2023 End: 04-20-2023 ambulatory Lynne Avilat Other [facility] Other Start: 04-20-2023 Telephone encounter Lynne Hernandez [facility] Start: 04-18-2023 End: 04-18-2023 ambulatory Lynne Fitt Other [facility] Other Start: 04-18-2023 Telephone encounter Lynneana Avilat [facility] Start: 04-15-2023 End: 04-15-2023 ambulatory Shayy Dela Cruz Other [employer] Other Start: 04-15-2023 Office outpatient vi sit 15 minutes Shayy Dela Cruz [facility] Start: 04-15-2023 End: 04-15-2023 Patient encounter procedure MD Shayy Dela Cruz Work Phone: [facility] Work Phone: Start: 04-06-2023 End: 04-06-2023 ambulatory Shayy Dela Cruz Other [employer] Other Start: 04-06-2023 Telephone encounter Shayy Dela Cruz [facility] Start: 02-25-2023 End: 02-25-2023 ambulatory Shayy Dela Cruz Other [employer] Other Start: 02-25-2023 Telephone encounter Shayy Dela Cruz [facility] Start: 10-29-2022 End: 10-29-2022 ambulatory Shayy Dela Cruz Other [employer] Other Start: 10-29-2022 Telephone encounter Shayy Dela Cruz [facility] Start: 08-27-2022 End: 08-28-[address] SHAYY DELA CRUZ Facility:[facility] Start: 07-20-2022 End: 07-21-[address] SHAYY DELA CRUZ Facility:[facility] Start: 07-19-2022 End: 07-19-2022 ambulatory Shayy Dela Cruz Other [facility] Other Start: 07-19-2022 Telephone encounter Shayy Dela Cruz [facility] Start: 07-12-2022 End: 07-13-[address] SHAYY DELA CRUZ Facility:[facility] Start: 07-05-2022 End: 07-05-2022 ambulatory Shayy Dela Cruz Other [facility] Other Start: 07-05-2022 Telephone encounter Shayy Dela Cruz [facility] Start: 06-28-2022 End: 06-28-2022 ambulatory Shayy Dela Cruz Other [facility] Other Start: 06-28-2022 Telephone encounter Shayy Dela Cruz [facility] Start: 06-22-2022 End: 06-22-2022 ambulatory Shayy Dela Cruz Other [facility] Other Start: 06-22-2022 Office outpatient vi sit 15 minutes Shayy Dela Cruz [facility] Start: 05-27-2022 End: 05-27-2022 ambulatory Shayy Dela Cruz Other [facility] Other Start: 05-27-2022 Telephone encounter Shayy Dela Cruz [facility] Start: 05-19-2022 End: 05-20-2022 ambulatory [...] Start: 05-10-2017 End: 05-11-2017 Ambulatory DEFAULT PHYSICIAN Facility:[facility] Start: 05-05-2017 End: 05-06-2017 Ambulatory DEFAULT PHYSICIAN Facility:[facility] Procedures Date Procedure Procedure Detail Performing Clinician History of amputatio n of lesser toe H/O amputation of lesser toe Shayy Dela Cruz MD Work Phone: Comment on above: left foot Plan of Treatment Date Care Activity Detail Author Start: 01-01-2024 Influenza vaccination Influenza Vaccine [facility] Start: 01-15-2022 Administration of varicella zoster vaccine Zoster (Shingles) Vaccine (1 of 2) [facility] Start: 01-15-1993 Screening for malignant neoplasm of cervix Pap Smear [facility] Start: 01-15-1991 DTaP,Tdap and Td Vaccines (1 - Tdap) DTaP,Tdap and Td Vaccines (1 - Tdap) [facility] Start: 01-15-1990 Adult BMI Screening Adult BMI Screening [facility] Start: 1984 Depression Screening Depression Screening [facility] Start: 1984 Tobacco Screening Tobacco Screening [facility] Comprehensive metabo lic 2000 panel - Serum or Plasma [facility] MG Breast - bilatera l Screening [facility] Immunizations Immunization Date Immunization Notes Care Provider Fa cility 02-01-2022 influenza virus vaccine, split virus (incl. purified surface antigen) Shayy Dela Cruz Other [facility] Other 02-01-2022 influenza virus vaccine, unspecified formulation MD Shayy Dela Cruz Work Phone: [facility] Payers Date Payer Category Payer Medicare O ANTH MEDICARE [id number] 2017 [place] [id number] 2017 Unknown [id number] 1972 Unknown [id number] 2.16.840.1.016240.3.579.2.59 1972 Unknown [id number] 2.16.840.1.152147.3.579.2.59 1972 Unknown [id number] 2.16.840.1.163500.3.579.2.59 1972 Unknown [id number] 2.16.840.1.722422.3.579.2.59 1972 Unknown [id number] 2.16.840.1.250151.3.579.2.59 1972 Unknown [id number] 2.16.840.1.595408.3.579.2.59 1972 Unknown [id number] 2.16.840.1.273680.3.579.2.59 1972 Unknown [id number] 2.16.840.1.039768.3.579.2.59 1972 Unknown [id number] 2.16.840.1.458541.3.579.2.593 1972 Unknown [id number] 2.16.840.1.719836.3.579.2.1286 1957 Medicaid [id number] 2.16.840.1.239186.19 1957 Medicare [id number] Medicare Medicare [id number] Unknown Social History Date Type Detail Facility Unknown if ever smoked [facility] Other Start: 06-14-2024 Sex Assigned At [facility] Other Start: 1970 Sex Assigned At Female [facility] Start: 07-19-2023 End: 05-25-2024 Tobacco smoking status NHIS Never smoked tobacco (finding) [facility] Start: 05-24-2024 End: 08-23-2024 Sex Female (finding) [facility] Start: 06-14-2024 Tobacco use and exposure Smokeless tobacco [facility]-user [facility] Start: 06-14-2024 Alcoholic beverage intake Lifetime non-drinker (finding) [facility] Start: 06-14-2024 History of Social function [facility] Within the past 12 months we worried whether our food would run out before we got money to buy more. Never [facility] Start: 1970 Sex assigned at Not on file [facility] NEGATED: Highlighted row [facility] Medical Equipment Procedure Code Equipment [...] Active Problem List Diagnosis Coronary arteriosclerosis in [place] artery Old myocardial infarction Sinusitis Type 1 [...] is normal sized. (more content not included)... [facility] 06-14-2024 Evaluation + Plan note Associated Problem(s): Gangrene of toe of left foot ([facility]) Osteomyelitis and gangrenous changes of the left second and third and may be the fourth toe.She has normal PVR with toe pressure and normal HIEU and toe pressure index.I discussed with her that there is no VASc intervention needed at this time. She needs his aggressive blood sugar control IV antibiotics likely toe amputation by podiatry and risk factors modification. [facility] 06-14-2024 Miscellaneous Notes Associated Problem(s): Gangrene of toe of left foot ([facility]) Osteomyelitis and gangrenous changes of the [...] risk factors modification. documented in this encounter [facility] 06-14-2024 History of Presen t illness [...] Past Medical History: Diagnosis Date Diabetes mellitus ([facility]) Past Surgical History: No past surgical [...] Safety: Unknown (06/23/2023) Received from [facility] Safety & Environment Fear of Current [...] visit: Gangrene of toe of left foot ([facility]) Nacho Patiño MD, SELMA, RPVI, FSVS, FACS [facility] [employer] This note was created with the assistance of a speech recognition program. While intending to generate a timely document that accurately reflects the content of the visit, no guarantee can be provided that every grammatical or spelling mistake has been or will be identified or corrected. Thank you for your understanding. documented in this encounter [facility] 05-30-2024 Evaluation note Diagnosis Onset Date Resolution Colon cancer screening acute [facility] 2024 10:42am Long-term insulin use acute May [...] D deficiency acute 2024 1:05pm [facility] Work Phone: [phone]) 713-357701-23-2025 Evaluation note* Diagnosis Onset Date Resolution Status Admit Date Type 2 diabetes mellitus acute May 24, 2024 12:54pm Colon cancer screening acute [place] 2024 10:42am Long-term insulin use acute May [...] D deficiency acute 2024 1:05pm [facility] Work Phone: 1(336) 607-209312-19-2024 Evaluation note* Diagnosis Onset Date Resolution Status Admit Date Type 2 diabetes mellitus acute April 19, 2024 2:03pm [facility] Work Phone: [phone]) 954-410712-19-2024 Evaluation note* Diagnosis Onset Date Resolution Status Admit Date Type 2 diabetes mellitus acute April 19, 2024 2:03pm Type 2 diabetes mellitus acute May 24, 2024 12:54pm [facility] Work Phone: 1(825) 562-418712-19-2024 Evaluation note* Diagnosis Onset Date Resolution Status Admit Date Type 2 diabetes mellitus acute April 19, 2024 2:03pm Type 2 diabetes mellitus acute May 24, 2024 12:54pm Colon cancer screening acute Chente barragan 2024 10:42am Long-term insulin use acute Nic uary 2024 10:42am Type 2 diabetes mellitus acute May 30, 2024 10:42am Wellness examination acute Geovanny pacheco 2024 10:42am [facility] Work Phone: 1(367) 976-138702-05-2024 Evaluation note* Encounter Date Diagnosis Assessment Notes Treatment Notes Treatment Clinical Notes Jun, Controlled type 2 diabetes mellitus with hyperglycemia, unspecified whether usp insulin use (ICD-10 - E11.65) [place] [facility] Other 01-24-2024 Evaluation note* Encounter Date Diagnosis [...] issues. 6. Prescriptions: New patient 05-25-2023 uses [facility]. May, Vitamin D deficiency (ICD-10 - E55.9) [...] sensor sample and an [employer] [place]. She was taught how to use the [...] patient by Nguyễn Norwood RN, [facility]. [facility] Other 12-15-2023 Evaluation note* Encounter Date Diagnosis Assessment Notes Treatment Notes Treatment Clinical Notes Apr, Type 2 diabetes mellitus with hyperglycemia (ICD-10 - E11.65) Rx handwritten for diabetic shoes. Pt agrees to referral to specialty clinic. Continue present meds and discussed healthy diet in meantime. 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09-12-2022 NotePROCEDURE: XR TOES RT MIN 2 [...] Referral Dr. Negro Dela Cruz DM download [facility] Work Phone: chief complaint+Reason for visit Narrative* Chief Complaint 3 Month Follow Up Referral Dr. Negro Dela Cruz DM download Reason for Visit Type 2 diabetes holli [facility] Work Phone: chief complaint+Reason for visit Narrative* Chief Complaint Referral Dr. Negro LAGUERRE download 3 Month Check up Reason for Visit Type 2 diabetes holli [facility] Work Phone: chief complaint+Reason for visit Narrative* Chief Complaint Referral Dr. Negro LAGUERRE download 3 Month Check up amrik reader Reason for Visit Type 2 diabetes holli itus Right wrist fracture Type 2 diabetes mellitus [facility] Work Phone: chief complaint+Reason for visit Narrative* [...] D deficiency Gastroesophageal reflux disease [facility] Work Phone: Evaluation noteNo InformationNort [facility] Other Evaluation noteNo assessment information available [facility] Work Phone: Evaluation note* Diagnosis Onset Date Resolution Status Type 2 diabetes mellitus acu te [facility] Work Phone: Evaluation note* Diagnosis Onset Date Resolution Status Type 2 diabetes mellitus acu te Right wrist fracture acute Type 2 diabetes mellitus acu te [facility] Work Phone: Evaluation note* Diagnosis Onset Date [...] acute Gastroesophageal reflux disease acute [facility] Work Phone: evaluation note* Diagnosis Onset Date [...] 2 diabetes mellitus acu te [facility] Work Phone: evaluation note* Diagnosis Onset Date [...] 2 diabetes mellitus acu te [facility] Work Phone: evaluation note* Diagnosis Onset Date [...] 2 diabetes mellitus acu te [facility] Work Phone: evaluation note* Diagnosis Onset Date [...] mammogram for breast cancer acute [facility] Work Phone: evaluation note* Diagnosis Onset Date [...] te Vitamin D deficiency acute [facility] Work Phone: Evaluation note* Diagnosis Onset Date [...] 2 diabetes mellitus acu te [facility] Work Phone: Evaluation note* Diagnosis Onset Date [...] te Vitamin D deficiency acute [facility] Work Phone: Evaluation note* Diagnosis Gangrene of toe of left foot ([facility] Primary documented in this encounter [facility] [...] Medical History Dyslipidemia Medical History CAD in [place] artery Medical History Asthma, intermittent Medical History [...] History appendectomy Surgical History 7 stents 1999 [facility] Other History general Narrative - Reported* Type Description Date Medical History Herpes labialis Medical History Candidiasis of mouth Medical History Type 2 diabetes holli itus with diabetic polyneuropathy, unspecified whether usp insulin use Medical History Controlled type 2 di abetes mellitus with hyperglycemia, unspecified whether director long term care insulin use Medical History Obesity Medical History Dyslipidemia Medical History CAD in [place] artery Medical History Asthma, intermittent Medical History [...] stents 1999 Hospitalization History see surgical history [facility] Other [facility] general Narrative - Reported* Type Description Date Medical History Herpes labialis Medical History Candidiasis of mouth Medical History Type 2 diabetes holli itus with diabetic polyneuropathy, unspecified whether usp insulin use Medical History Controlled type 2 di abetes mellitus with hyperglycemia, unspecified whether director long term care insulin use Medical History Obesity Medical History Dyslipidemia Medical History CAD in [place] artery Medical History Asthma, intermittent Medical History [...] coronary 1999 Hospitalization History see surgical history [facility] Other InstructionsNot on filedocumented in this encounter [facility] Summary Purpose Family History Relationship Condition Age [...] Referring Provider Specialty [facility] Referred Organization [facility] Referred Provider Marcia Mendes Referred Address [address],[place], [place],[address] Referred Provider Specialty Nurse Huey saldaña Referral [...] and content) DATE CREATED AUTHOR 10/25/2017 [facility] DATE CREATED AUTHOR AUTHOR'S ORGANIZ ATION 09/03/2022 [facility] DATE CREATED AUTHOR AUTHOR'S ORGANIZ ATION 06/16/2024 [facility] DATE CREATED AUTHOR AUTHOR'S ORGANIZ ATION 06/30/2024 [facility] DATE CREATED AUTHOR AUTHOR'S ORGANIZ ATION 07/13/2024 [facility] REASON FOR VISIT (unrecogniz [...] 19, 2024 End: April 19, 2024 Cathie Vargsa APRN Active Star t: April 19, 2024 [...] End: June 14, 2023 Cathie Vargas , AUTOMOTIVE TIRE TESTING SUPERVISOR Active Star t: June 14, 2023 [...] End: December 13, 2023 Cathie Vargas , AUTOMOTIVE TIRE TESTING SUPERVISOR Attending Provider Active Start: December 13, 2023 End: December 13, 2023 Team Status: Inactive Member Role Status Susan Dela Cruz MD Primary Care Provider Active Start: January 17, 2024 End: January 17, 2024 Cathie Vargas , AUTOMOTIVE TIRE TESTING SUPERVISOR Active Star t: January 17, 2024 End: January 17, 2024 Brittani Collier RN Attending Provider Active Start: January 17, 2024 End: January 17, 2024 Team Status: Inactive Member Role Status Susan Dela Cruz MD Primary Care Provider Active Start: February 23, 2024 End: February 23, 2024 Cathie Vargas , AUTOMOTIVE TIRE TESTING SUPERVISOR Attending Provider Active Start: February 23, 2024 End: February 23, 2024 Team Status: Inactive Member Role Status Dates Cathie Vargas , AUTOMOTIVE TIRE TESTING SUPERVISOR Attending Provider Active Start: February 23, 2024 [...] BE BASED ON THE PRIMARY CLINICAL RECORDS. [facility] [employer] [facility]. provides no warranty or guarantee of the accuracy or completeness of information in this document.
--- NOTE | 2024-11-22 10:39 | XR_ITS ---
The [address] [address] Patient Name: COLETTE DINH MRN: [id number] date: 1970 Sex: F Assigned Patient Location: [facility] Current Patient Location: [facility] Accession/Order Number: [id number] Exam Date: 11/22/2024 11:15 Report Date: 11/22/2024 11:16 At the request of: JORDYN SANCHEZ DPNegro Procedure: XR foot LT min 3V LEFT FOOT - 3 views CLINICAL HISTORY: Left foot swelling and pain for 2 months. COMPARISON: Left foot series 08/10/2024. FINDINGS: Soft tissue swelling is present with vascular calcifications. There appears to be amputation involving the second and third digits similar to the prior study. Bones are grossly demineralized. Worsening Charcot changes are seen involving the midfoot with volume loss involving the bases of the metatarsals as well as the cuneiforms. No acute fracture line is seen. XR/XR foot LT min 3V IMPRESSION: WORSENING CHARCOT CHANGES INVOLVING THE MIDFOOT. Impression dictated by: Camilo Hui Jr., D.O. 11/22/2024 11:16 AM Dictation Location: [place] [address] Electronically authenticated by: [id number] Y Date: 11/22/2024 11:16
== END 2024-11-22 10:04 | disposition home or self-care (01) ==
LOC: RAD 10:05
PROVIDERS: PCP Family Medicine; Visit Provider Podiatrist Foot & Ankle Surgery
DX: M79.672 Pain in left foot (principal); R60.9 Edema, unspecified; M14.672 Charcot's joint, left ankle and foot
CPT/HCPCS: 73630

== ENCOUNTER 2024-12-27 10:34 | Outpatient (OUT) | payer MEDICARE, MEDICAID, SELFPAY ==
--- NOTE | 2024-12-27 10:43 | XR_ITS ---
The [address] [address] Patient Name: COLETTE DINH MRN: [id number] date: 1970 Sex: F Assigned Patient Location: [facility] Current Patient Location: [facility] Accession/Order Number: [id number] Exam Date: 12/27/2024 10:55 Report Date: 12/27/2024 18:58 At the request of: JORDYN SANCHEZ DPNegro Procedure: XR foot LT min 3V XR foot LT min 3V 12/27/2024 11:08 AM SIGNS AND SYMPTOMS: Chronic left foot pain PROTOCOL: Frontal, lateral, and oblique radial graphs of the left foot COMPARISON: 11/22/2024 FINDINGS: There is moderate narrowing of the first metatarsophalangeal joint. There is evidence of partial amputation of the second digit with amputation of the third digit similar to the prior exam. Significant degenerative changes noted throughout the tarsometatarsal junctions similar to the prior exam with partial collapse of the midfoot. No acute displaced fracture. XR/XR foot LT min 3V IMPRESSION: Significant degenerative changes are noted, greatest in the tarsometatarsal junctions with partial collapse of the midfoot similar to the prior exam. Amputation is noted in the second and third digit similar to the prior exam. Degenerative changes are noted at the first metatarsophalangeal joint similar to the prior study. No acute displaced fracture. Impression dictated by: Aayush Palm M.D. 12/27/2024 6:58 PM Dictation Location: [place] [address] Electronically authenticated by: [id number] Y Date: 12/27/2024 18:58
--- OUTSIDE RECORDS SUMMARY | 2024-12-27 10:47 | XMS_ITS | CCD ---
Author Organization [facility] CliniSymi Care Team Providers Care Scientific Technical Writer Name Role Phone PHYSICIAN, DEFAULT Unavailable Unavailable [...] Reyes Primary Care Unavailable MARKER ., DR FWOLER Attending Unavailable GRECHNY ., SHAY CESPEDES Consulting [...] SHAYY Reyes Consulting Unavailable Lynne Hernandez Unavailable Scally, Cathie Unavailable MD Shayy Dela Cruz Primary Care Provider MD Shayy Dela Cruz Attending Provider MD Shayy Dela Cruz Primary Care Provider MD Shayy Dela Cruz Attending Provider Sam, FATEMEH Calvillo Attending Provider Unavailable Primary Care Provider UnavailNACHO Alcala Attending Unavailable MARQUES MOROCHO Attending Unavailable Shayy Dela Cruz MD Primary Care Provider Jordyn Bruce DPM Attending Provider [phone] Shayy Dela Cruz Primary Care Unavailable Jordyn Bruce Admitting Unavailable Jordyn Bruce Attending Unavailable Cathie Vargas Admitting Unavailable Cathie Vargas Attending Unavailable Shayy Dela Cruz MD Primary Care Provider Scally FRESH WORK WRAPPER LAYERCathie Attending Provider Allergies Allergy Classification Reported Allergen(s) Allergy Type Date of Onset Reaction(s) Facility (1 source) codeine Drug Allergy 9 [facility] Repository (20 sources) Latex; Translations: [LATEX] Drug allergy (disorder) 9 sores on skin [facility] Repository (20 sources) Codeine; Translations: [CODEINE] Drug Allergy 0 nausea [facility] (19 sources) Latex Drug allergy 5 sores on skin [facility] Other (1 source) Codeine Drug Allergy [facility] Repository (12 sources) cat dander Allergy to substance 4 Sneezing, Itching [facility] (12 sources) dog dander Allergy to substance 4 Sneezing, Itching [facility] (12 sources) ozempic Propensity to adverse reactions 4 Vomiting [facility] (3 sources) Insulin Lispro; Translations: [INSULIN LISPRO] Drug Allergy 5 [facility] (3 sources) tomato allergenic extract; Translations: [TOMATO] Drug Allergy [facility] Medications Current Medications Medication Drug Class(es) Dates Sig (Normalized) Sig (Original) [id number] 200 actuat albuterol 0.09 mg/actuat metered dose inhaler (20 sources) beta2-Adrenergic Agonist Start: 01-23-2024 End: 08-30-2024 take 2 puff(s) by inhalation every four hours as needed Albuterol Sulfate 90 mcg/actuation HFA aerosol inhaler Active 0 .ROUTE .COMPLEX 8.5 August 30, 2024 8:30am INHALE 2 PUFFS EVERY 4 HOURS NEEDED FOR WHEEZE OR FOR SHORTNESS OF BREATH Complies with drug therapy Start: 07-28-2023 End: 01-23-2024 take 1 puff(s) [...] oral tablet (1 source) Penicillin-class Antibacterial Start: 06-07-19 take 1 tablet by mouth once amoxicillin-pot clavulanate (AUGMENTIN) 875-125 mg per tablet Take 1 tablet by mouth every 12 (twelve) hours. 06/07/2024 Active Aspir-81 (12 sources) Aspir-81 Active aspirin 81 mg delayed release oral tablet (20 sources) Platelet Aggregation Inhibitor, Nonsteroidal Anti-inflammatory Drug Start: 12-05-19 Aspirin (Adult Low Dose Aspirin) 81 mg tablet,delayed release (DR/EC) Active 81 MG PO Daily December 05, 2023 12:00am Complies with drug therapy Start: 07-06-2023 End: 09-29-2023 Aspirin (Adult Low [...] BY MOUTH EVERY DAY FOR 90 DAYS Complies with drug therapy Start: 05-12-2023 End: 03-13-2024 take 1 tablet by mouth once daily Atorvastatin 40 mg tablet Discontinued 40 MG PO Daily July 19, 2023 12:00am March 13, 2024 5:10pm Blood-Glucose Meter,Continuo us (Dexcom G7 Brim Stretcher) misc (9 sources) Start: 12-13-2023 Blood-Glucose Meter,Continuous (Dexcom G7 Brim Stretcher) misc Active 0 .Route December 12, 2023 11:00pm As directed Start: 12-13-2023 Blood-Glucose Meter,Continuous (Dexcom G7 Brim Stretcher) misc Active 0 .Route December 13, 2023 12:00am As directed Start: 12-13-2023 Blood-Glucose Meter,Continuous (Dexcom G7 Brim Stretcher) misc Active 0 .ROUTE December 13, 2023 12:00am As directed Blood-Glucose Sensor (Dexcom G7 Sensor) device (13 sources) Start: 07-16-2024 Blood-Glucose Sensor (Dexcom G7 Sensor) device Active 0 .Route July 16, 2024 10:30am As directed change [...] .ROUTE December 13, 2023 12:00am As directed Blood-Glucose,Brim Stretcher,Cont (Dexcom G7 Brim Stretcher) misc (1 source) Start: 12-13-2023 Blood-Glucose,Brim Stretcher,Cont (Dexcom G7 Brim Stretcher) misc Active 0 .Route December 13, 2023 12:00am As directed carvedilol 6.25 mg oral tablet (20 sources) alpha-Adr energic Petty, beta-Adre nergic Petty Start: 07-09-2024 End: 08-30-2024 take 1 tablet by mouth twice daily Carvedilol 6.25 mg tablet Active 0 .ROUTE .COMPLEX 180 August 30, 2024 8:30am TAKE 1 TABLET BY MOUTH TWICE A DAY FOR 90 DAYS Complies with drug therapy Start: 10-10-2023 End: 07-09-2024 take 1 tablet [...] Orally Once a day Active Dexcom G7 Brim Stretcher - (4 sources) Start: 06-03-19 24 Dexcom G7 Brim Stretcher - as directed as directed 4 x daily for 365 days E 11.65, Z 79.4 Jun, Active Dexcom G7 Sensor - (4 sources) Start: 06-03-19 24 Dexcom G7 Sensor - as directed in vitro every 10 days for 90 days E 11.65, Z79.4 Jun, Active esomeprazole 40 mg delayed release oral capsule (20 sources) Proton Pump Inhibitor Start: 02-06-20 End: 08-31-19 take 1 capsule by mouth once daily Esomeprazole Magnesium 40 mg capsule,delayed release(DR/EC) Active 0 .ROUTE .COMPLEX August 30, 2024 8:30am TAKE ONE CAPSULE BY MOUTH DAILY Complies with drug therapy Start: 02-06-2024 take 1 capsule by mo ut once daily Esomeprazole Magnesium Active 0 .ROUTE [...] 90 Each; Provider: Jose De Jesus Reyes 120 actuat fluticasone propionate 0.11 mg/actuat metered dose inhaler (20 sources) Corticosteroid Start: 04-30-2024 take 2 [...] November 29, 2023 4:24pm Start: 07-28-2023 End: 08-13-2024 take 1 puff(s) by inhalation twice daily Fluticasone Propionate 110 mcg/actuation HFA aerosol inhaler Active 2 PUFF INHALATION Twice daily August 13, 2024 2:43pm Complies with drug therapy Start: 07-28-2023 End: 11-29-2023 take 1 puff(s) by inhalation twice daily Fluticasone Propionate Discontinued 2 PUFF INHALATION Twice daily July 28, 2023 12:40pm November 29, 2023 4:24pm Start: 07-28-2023 take 1 puff(s) by in halation twice daily Fluticasone Propionate Active 2 PUFF INHALATION Twice daily July 28, 2023 12:40pm Start: 07-06-2023 End: 07-28-2023 take 2 puff(s) by mouth twice daily Fluticasone Propionate 110 mcg/actuation HFA aerosol inhaler Discontinued INHALATION July 06, 2023 1:00am July 28, 2023 12:43pm FreeTextSig: INHALE 2 PUFFS BY MOUTH TWICE A DAY; Note: Source Status: Taking; Refills: 1; Qty: 36 Gram; Provider: Jose De Jesus Lucas ( ) Start: 07-06-2023 End: 02-01-2024 take 2 spray(s) [...] Jesus Lucas ( ) FreeStyle Amrik 3 [place] - (3 sources) Start: 06-06-2023 FreeStyle Amrik 3 [place] - as directed invitro 4 times daily [...] day Active ibuprofen 600 mg oral tablet (3 sources) Nonsteroidal Anti-inflammator y Drug Start: 08-23-2024 End: 09-06-2024 take 1 tablet by mouth every eight hours as needed for pain Ibuprofen 600 mg tablet Active 600 MG PO Every 8 hours as needed for pain 30 September 06, 2024 12:44pm Complies with drug therapy 3 ml insulin glargine 300 unt/ml pen injector (20 sources) Insulin Analog Start: 11-19-2024 Insulin Glargine U-300 Conc (Toujeo Max U-300 Solostar) 300 unit/mL (3 mL) insulin pen Active 95 UNIT SUBCUT Daily November 19, 2024 4:53pm Titrate to 120 u daily, has written instructions. Dispense Toujeo Solostar if any procurement/ delay issues Complies with drug therapy Start: 08-07-2024 End: 11-19-2024 Insulin Glargine U-300 Conc (Toujeo Max U-300 Solostar) 300 unit/mL (3 mL) insulin pen Discontinued 95 UNIT SUBCUT Daily August 07, 2024 1:22pm November 19, 2024 4:54pm Titrate to 100 u daily, has written instructions. Dispense ToujeoSolostar if any procurement/ delay issues Start: 05-24-2024 TOUJEO MAX U-3 00 SOLOSTAR 300 unit/mL (3 mL) insulin pen Inject 95 Unit under the skin in the morning. 05/24/2024 Active Start: 03-08-2024 End: 08-07-2024 Insulin Glargine U-300 Conc (Toujeo [...] ToujeoSolostar if any procurement/ delay issues Start: 02-23-2024 End: 05-30-2024 Insulin Glargine U-300 Conc (Toujeo Solostar U-300 Insulin) 300 unit/mL (1.5 mL) insulin pen Discontinued 84 UNIT SUBCUT Daily February 23, 2024 1:21pm May 30, 2024 12:00pm Start: 12-13-2023 End: 02-23-2024 Insulin Glargine U-300 Conc (Toujeo Solostar U-300 Insulin) 300 unit/mL (1.5 mL) insulin pen Discontinued 80 UNIT SUBCUT Daily December 13, 2023 1:08pm February 23, 2024 1:22pm Start: 08-24-2023 End: 12-13-2023 Insulin Glargine U-300 Conc (Toujeo Solostar U-300 Insulin) 300 unit/mL (1.5 mL) insulin pen Discontinued 76 UNIT SUBCUT Daily August 24, 2023 2:13pm December 13, 2023 1:15pm Start: 07-06-2023 End: 08-24-2023 Insulin Glargine U-300 Conc (Toujeo Solostar U-300 Insulin) 300 unit/mL (1.5 mL) insulin pen Discontinued 78 UNIT SUBCUT Daily July 28, 2023 12:38pm August 24, 2023 2:15pm Toujeo SoloStar 300 UNIT/ML 78 u Subcutaneous [...] to cleanse skin before checking blood sugar Complies with drug therapy Start: 07-06-2023 End: 12-23-2023 Alcohol Swabs pads, [...] mg oral tablet (20 sources) Biguanide Start: 12-13-2024 Start: 11-16-2024 End: 12-13-2024 Metformin 1,000 mg tablet Discontinued 0 .ROUTE .COMPLEX 180 November 16, 2024 8:56am December 13, 2024 1:14pm TAKE 1 TABLET TWICE A DAY Start: 08-07-2024 End: 11-16-2024 Metformin 1,000 mg tablet Discontinued 500 MG PO Twice daily August 07, 2024 1:24pm November 16, 2024 8:56am Start: 05-28-2024 End: 08-07-2024 Metformin 1,000 mg [...] MG PO Daily September 29, 2023 1:39pm Complies with drug therapy take 1 tablet by bin th every [...] bedtime as needed September 29, 2023 1:39pm Complies with drug therapy Start: 07-28-2023 End: 09-29-2023 Simethicone (Gas-X Extra [...] / HYDROcodone bitartrate 5 mg oral tablet (2 sources) Opioid Agonist Start: 08-23-2024 End: 12-13-2024 take 1 tablet by mouth every six hours as needed Hydrocodone-Acetam inophen 5-325 mg tablet Discontinued 1 TAB PO Every 6 hours as needed August 23, 2024 12:00am December 13, 2024 1:10pm azithromycin 250 mg oral tablet (18 sources) Macrolide Antimicrobial Start: 06-22-2022 Azithromycin 250 MG as directed Orally 2 tabs po today, then 1 tab daily x 4 more days for 5 Jun, Not-Taking/PRN Blood-Glucose Meter,Continuous (Freestyle Amrik 3 [place]) misc (16 sources) Start: 07-28-2023 End: 12-13-2023 Blood-Glucose Meter,Continuous (Freestyle Amrik 3 [place]) misc Discontinued EACH .ROUTE .MEDSUPPLY July 27, 2023 11:00pm December 13, 2023 12:09pm As directed Start: 07-28-2023 End: 12-13-2023 Blood-Glucose Meter,Continuo us (Freestyle Amrik 3 [place]) misc Discontinued EACH .ROUTE [facility] July 28, 2023 12:00am December 13, 2023 1:09pm As directed Start: 07-28-2023 Blood-Glucose Meter,Continuous (Freestyle Amrik 3 [place]) misc Active EACH .ROUTE .[facility] July 28, 2023 12:00am As directed Blood-Glucose Sensor (Freest yle Amrik 3 Sensor) device (17 sources) Start: 07-28-2023 End: 12-13-2023 Blood-Glucose Sensor (Freest yle Amrik 3 Sensor) device Discontinued EACH .ROUTE .[facility] July 27, 2023 11:00pm December 13, 2023 12:09pm As directed Start: 07-28-2023 End: 12-13-2023 Blood-Glucose Sensor (Freest yle Amrik 3 Sensor) device Discontinued EACH .ROUTE .[facility] July 28, 2023 12:00am December 13, 2023 1:09pm As directed Start: 07-28-2023 Blood-Glucose Sensor (Freestyle Amrik 3 Sensor) device Active EACH .ROUTE .[facility] July 28, 2023 12:00am As directed Blood-Glucose,Brim Stretcher,Cont (Freestyle Amrik 3 [place]) misc (1 source) Start: 07-28-2023 End: 12-13-2023 Blood-Glucose,Brim Stretcher,Cont (Freestyle Amrik 3 [place]) misc Discontinued EACH .ROUTE .[facility] July 28, 2023 12:00am December 13, 2023 1:09pm As directed Esomeprazole Magnesium 40 mg capsule,delayed release(DR/EC) (5 sources) Start: 02-06-2024 End: 03-09-2024 take 1 capsule by mouth once daily Esomeprazole Magnesium 40 mg capsule,delayed release(DR/EC) Discontinued 0 .ROUTE .COMPLEX 90 February 06, 2024 9:00am March 09, 2024 10:43am TAKE ONE CAPSULE BY MOUTH DAILY Start: 02-06-2024 End: 03-09-2024 take 1 capsule by mouth once daily Esomeprazole Magnesium 40 mg capsule,delayed release(DR/EC) Discontinued 0 .ROUTE .COMPLEX February 06, 2024 8:00am March 09, 2024 9:43am TAKE ONE CAPSULE BY MOUTH DAILY famotidine 20 mg oral tablet (20 sources) Histamine-2 Receptor Antagonist Start: 07-09-2024 End: 12-13-2024 take 1 tablet by mouth once daily at bedtime Famotidine 20 mg tablet Discontinued 0 .ROUTE .COMPLEX November 16, 2024 8:55am December 13, 2024 1:09pm TAKE 1 TABLET BY MOUTH DAILY AT BEDTIME Start: 08-22-2023 End: 07-09-2024 take 1 tablet by mouth once daily at bedtime as needed Famotidine 20 mg tablet Discontinued 20 MG PO Daily at bedtime as needed September 29, 2023 1:37pm March 09, 2024 10:43am glipiZIDE 10 mg oral tablet (20 sources) [...] Did not tolerate Lispro 3 ml insulin aspart, human 100 unt/ml pen injector (1 source) Insulin Analog Start: 07-12-2023 End: 07-19-2023 inject 1 dose by subcutaneous injection once daily Insulin Aspart U-100 (Novolog Flexpen U-100 Insulin) 100 unit/mL (3 mL) insulin pen Discontinued 1 sliding scale dose SUBCUT Use as Directed July 12, 2023 12:00July 19, 2023 11:10am ICR 1:5, ISS 1:10, [...] 90-day (expect up to 190 units/day) Start: 07-28-2023 End: 09-19-2023 inject 1 dose by subcutaneous injection once before mealtime Insulin Lispro (Humalog Kwikpen Insulin) 100 unit/mL insulin pen Discontinued 1 sliding scale dose SUBCUT 3x/Day before meals & bedtime July 28, 2023 12:39pm September 19, 2023 10:58am Start: 07-08-2023 End: 07-28-2023 Insulin Lispro (Humalog Kwik pen Insulin) 100 unit/mL insulin pen Discontinued SUBCUT July 08, 2023 10:01am July 28, 2023 12:43pm Start: 07-08-2023 End: 07-19-2023 Insulin Lispro (Humalog Kwik pen Insulin) 200 unit/mL (3 mL) insulin pen Discontinued 1 sliding scale dose SUBCUT Use as Directed 90 90 July 08, 2023 1:00am July 19, 2023 11:11am icr 1:5, iss 1:10, EXPECT UP TO 100 U PER DAY, HAS WRITTEN INSTRUCTIONS Start: 07-06-2023 End: 07-08-2023 Insulin Lispro (Humalog Kwik pen Insulin) 100 unit/mL insulin pen Discontinued SUBCUT July 06, 2023 1:00am July 08, 2023 10:08am FreeTextSig: ISS 1:10 and ICF 1:5 Subcutaneous 4 x daily; Note: Source Status: ContinueExpect up to 120 u per day; Provider: Sam Calvillo HumaLOG KwikPen 100 UNIT/ML ISS 1:10 and [...] ( ) meloxicam 15 mg oral tablet (13 sources) Nonsteroidal Anti-inflammatory Drug Start: 09-29-2023 End: 12-05-2023 take 1 tablet by mouth once daily Meloxicam 15 mg tablet Discontinued 15 MG PO Daily September 29, 2023 12:00am December 05, 2023 11:28am Semaglutide (16 sources) Start: 07-28-2023 End: 08-19-2023 Semaglutide (Ozempic) [...] angina pectoris; Translations: [Atherosclerotic heart disease of [place] coronary artery without angina pectoris] Onset: 07-12-2022 [...] Onset: 11-09-2021 Chronic Other aftercare (20 sources) jail (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 of insulin; Translations: [Long-term (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 of insulin] Onset: 04-08-2022 Episodic Other aftercare (20 sources) Long-term current use of insulin; Translations: [jail (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 of insulin] 07-28-2023 Episodic Other connective tissue disease (20 sources) Pain in limb; Translations: [Pain in right toe(s)] Episodic Other connective tissue disease (5 sources) Pain in left foot; Translations: [PAIN IN LEFT FOOT] Onset: 04-14-2022 Episodic Other connective tissue disease (6 sources) Pain in right toe(s); Translations: [PAIN IN RIGHT TOES] Onset: 01-11-2022 Episodic Other connective tissue disease (1 source) Tendinitis of right gluteal tendon; Translations: [Gluteal tendinitis, right hip] 08-23-2024 Episodic Other injuries and conditions due to external causes (17 sources) Fracture of bone; Translations: [Other injury of unspecified body region, initial encounter] 07-28-2023 Episodic Other non-traumatic joint disorders (5 sources) Shoulder pain; Translations: [Pain in left shoulder] Episodic Other non-traumatic joint disorders (13 sources) Pain in left shoulder; Translations: [Left shoulder pain] Episodic Other non-traumatic joint disorders (13 sources) Ankle pain; Translations: [Pain in right [...] Chronic Other nutritional; endocrine; and metabolic disorders (18 sources) Body mass index 30+ - obesity; Translations: [Body mass index (BMI) 37.0-37.9, adult] 07-28-2023 Chronic Other nutritional; endocrine; and metabolic disorders (1 source) Severe obesity; Translations: [Class 3 severe obesity with body mass index (BMI) of 40.0 to 44.9 in adult] 08-23-2024 Chronic Other screening for suspected conditions (not [...] Onset: 04-08-2022 Episodic Other aftercare (1 source) marketing strategist (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; Translations: [[facility] CURRENT USE OF ASPIRIN] Onset: 04-08-2022 Episodic Other aftercare (1 source) jail (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 of oral hypoglycemic drugs; Translations: [[facility] USE ORAL HYPOGLYCEMIC DX] Onset: 04-08-2022 Episodic Other aftercare (1 source) Other senior oracle pl sql developer (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 therapy; Translations: [OTH [facility] CURRENT [...] fraction] Hemoglobin A1c/Hemoglobin.total in Blood by HPLC [facility] No Panel Informationon 08-07 Bedside Glucose 99 [facility] Pathology study report docum entOrdered By: Tejal Church on 07-10-2024 Pathology study [facility] Other Aren 07-05-2024 L Specimen: [id number] Received: 07/06/24 Status: SAM Cook Num: [id number] Spec Type: Surgical Subm Dr: Jordyn Bruce DPM, Tissues: A DIGIT AMPUTATION (2ND LEFT TOE PARTIAL) B DIGIT AMPUTATION (3RD LEFT TOE) Procedures: HE/5, Gross/Micro L4/2, Decalcification/2 Age/ Patient Sex Location Account Attending Physician Zoila Ramos 54/F [facility] [id number] Jordyn Bruce DPM, SPEC NUM: [id number] RECD: 07/06/24 STATUS: [place] NUM: [id number] JESSICA: 07/05/[address]: Jordyn Bruce DPM, MS ENTERED: 07/06/24 [facility] DR: Chasity Jones SPEC TYPE: Surgical DEPT: [...] ulcer, left second and third toes Specimen: [id number] Received: 07/06/24 Status: VADIMAmbreen Cook Num: [id number] Spec Type: Surgical Subm Dr: Jordyn Bruce DPM, MS Tissues: A DIGIT AMPUTATION (2ND LEFT TOE PARTIAL) B DIGIT AMPUTATION (3RD LEFT TOE) Procedures: HE/5, Gross/Micro L4/2, Decalcification/2 Patient: Aura Ramosdanny Sidhu [id number] (Continued) Specimen: [id number] Received: 07/06/24 (Continued) Signed (signature on file) Tejal Church MD 07/10/24 1438 Specimen: [id number] Received: 07/06/24 Status: SAM Cook Num: [id number] Spec Type: Surgical Subm Dr: Jordyn Bruce,DPNegro, MS Tissues: A DIGIT AMPUTATION (2ND LEFT TOE PARTIAL) B DIGIT AMPUTATION (3RD LEFT TOE) Procedures: HE/5, Gross/Micro L4/2, Decalcification/2 Patient: Richard,Zoila Sidhu [id number] (Continued) Specimen: [id number] Received: 07/06/24-1327 (Continued) Gross Description Part A [...] x 1 x 0.4 cm. Cassettes: A1 Vice President Research section of the wound with underlying central second phalangeal bone, decalcified A2 Tangential sections of proximal skin margin A3 Detached skin ( 3, ss, [id number] A)J Part B is received in formalin [...] Tangential sections of proximal skin margin with utility sales representative sec (more content not included)... Normal [facility] Orders Onlyon 06-25-2024 Orders Only [id number] Zoila Ramos 1970 F Date Provider Department Center 06/25/2024 8-JESSICA STONE MAD[facility] No family history on file Normal [facility] Activated partial thrombopla stin time (aPTT) in platelet poor plasma by coagulation aon 06-19-2024 aPTT Coag (PPP) [Time] Activated partial thromboplastin time (aPTT) in platelet poor plasma by coagulation a 22.3-36.2 [facility] Basophils Auto (Bld) [#/Vol] on 06-19-2024 Basophils (Bld) [#/Vol] Automated basophil count 0.0-0.1 [facility] Basophils/100 WBC Auto (Bld) on 06-19-2024 Basophils/100 WBC (Bld) Automated basophil % 0.2-2.0 [facility] Eosinophils/100 WBC Auto (Bl d)on 06-19-2024 Eosinophils/100 WBC (Bld) Automated eosinophil % 0.9-7.0 [facility] Erythrocyte distribution wid th Auto (RBC) [Ratio]on 06-19-2024 Erythrocyte distribution width (RBC) [Ratio] Erythrocyte distribution width [Ratio] by Automated count 11.0-15.0 [facility] Estimated glomerular filtrat ion rate (GFR) non- Americanon 06-19-2024 GFR/1.73 sq M.predicted among non-blacks MDRD (S/P/Bld) [Vol rate/Area] Estimated glomerular filtration rate (GFR) non- >=60 mL/min/1.73m 2 [facility] Globulin Calc (S) [Mass/Vol] on 06-19-2024 Globulin (S) [Mass/Vol] Serum globulin measurement by calculation (mass/volume) [facility] Hematocrit Auto (Bld) [Volum e fraction]on 06-19-2024 Hematocrit (Bld) [Volume fraction] Hematocrit [Volume Fraction] of Blood by Automated count 36.0-48.0 [facility] Hemoglobin [Mass/volume] in Bloodon 06-19-2024 Hemoglobin (Bld) [Mass/Vol] Hemoglobin [Mass/volume] in Blood 12.0-16.0 [facility] INR in Platelet poor plasma by Coagulation assayon 06-19-2024 INR Coag (PPP) [Relative time] INR in Platelet poor plasma by Coagulation assay [facility] Comment on above: DESIRED INR:2.0-3.0 CONDITIONS NOT LISTED BELOW2.5-3.5 FOR PROSTHETIC HEART VALVE REPLACEMENT2.5-3.5 RECURRENT THROMBOSIS Laboratory - Chemistry and C hemistry - challengeon 06-19-2024 Albumin [Mass/Vol] 3.3 g/dL Low 3.4-5.0 [facility] ALP [Catalytic activity/Vol] 110 U/L 46-116 [facility] ALT [Catalytic activity/Vol] 44 U/L 14-59 [facility] AST [Catalytic activity/Vol] 23 U/L 15-37 [facility] Bilirubin [Mass/Vol] 0.3 mg/dL 0.2-1.0 [facility] Calcium [Mass/Vol] 9.3 mg/dL 8.5-10.1 [facility] Chloride [Moles/Vol] 102 mmol/L 98-107 [facility] CO2 [Moles/Vol] 27.9 mmol/L 21.0-32.0 [facility] Creatinine [Mass/Vol] 0.88 mg/dL 0.55-1.02 [facility] GFR/1.73 sq M.predicted MDRD (S/P/Bld) [Vol rate/Area] mL/min/{1.73_m2} >=60 mL/min/1.73m 2 [facility] Glucose [Mass/Vol] 175 mg/dL High 74-106 [facility] Lipase [Catalytic activity/Vol] 28.0 U/L 16.0-77.0 [facility] Potassium [Moles/Vol] 4.2 mmol/L 3.5-5.1 [facility] Protein [Mass/Vol] 7.6 g/dL 6.4-8.2 [facility] Sodium [Moles/Vol] 137 mmol/L 136-145 [facility] Urea nitrogen [Mass/Vol] 12.0 mg/dL 7.0-18.0 [facility] Urea nitrogen/Creatinine [Mass ratio] 13.6 mg/mg [facility] Laboratory - Hematology and Cell countson 06-19-2024 Immature granulocytes/100 WBC (Bld) 0.1 % 0.0-0.5 [facility] Leukocytes [#/volume] correc alma delia for nucleated erythrocytes in Blood by Automated counon 06-19-2024 WBC corrected for nucl RBC Auto (Bld) [#/Vol] Leukocytes [#/volume] corrected for nucleated erythrocytes in Blood by Automated coun 4.0-11.0 [facility] Lymphocytes Auto (Bld) [#/Vo l]on 06-19-2024 Lymphocytes (Bld) [#/Vol] Lymphocytes [#/volume] in Blood by Automated count 1.2-3.8 [facility] Lymphocytes/100 WBC Auto (Bl d)on 06-19-2024 Lymphocytes/100 WBC (Bld) Lymphocytes/100 leukocytes in Blood by Automated count 20.5-60.0 [facility] MCH Auto (RBC) [Entitic mass ]on 06-19-2024 MCH (RBC) [Entitic mass] MCH [Entitic mass] by Automated count 26.7-34.0 [facility] MCHC Auto (RBC) [Mass/Vol]on 06-19-2024 MCHC (RBC) [Mass/Vol] MCHC [Mass/volume] by Automated count 29.9-35.2 [facility] MCV Auto (RBC) [Entitic vol] on 06-19-2024 MCV (RBC) [Entitic vol] MCV [Entitic volume] by Automated count 81.0-99.0 [facility] Monocytes Auto (Bld) [#/Vol] on 06-19-2024 Monocytes (Bld) [#/Vol] Automated blood monocyte count 0.3-0.8 [facility] Monocytes/100 WBC Auto (Bld) on 06-19-2024 Monocytes/100 WBC (Bld) Automated monocyte % 1.7-12.0 [facility] Neutrophils Auto (Bld) [#/Vo l]on 06-19-2024 Neutrophils (Bld) [#/Vol] Neutrophils [#/volume] in Blood by Automated count 1.4-6.5 [facility] Neutrophils/100 WBC Auto (Bl d)on 06-19-2024 Neutrophils/100 WBC (Bld) Automated neutrophil % 43.0-75.0 [facility] No Panel Informationon 06-19 Eosinophils # (Auto) 0.2 10 3/uL 0.0-0.7 [facility] Immature Granulocyte # (Auto) 0.01 10 3/uL 0.00-0.03 [facility] Office Visiton 06-19-2024 Follow-up visit [id number] Zoila Ramos 1970 F Date Provider Department Center 06/19/2024 Bennie-MARQUES [facility] No family history on file Level of Service:[address] [place] OFFICE/OUTPATIENT ESTABLISHED MOD MDM 30 MIN Normal [facility] Platelet mean volume Auto (B ld) [Entitic vol]on 06-19-2024 Platelet mean volume (Bld) [Entitic vol] Platelet mean volume [Entitic volume] in Blood by Automated count 9.5-13.5 [facility] Platelets Auto (Bld) [#/Vol] on 06-19-2024 Platelets (Bld) [#/Vol] Platelets [#/volume] in Blood by Automated count 150-450 [facility] Prothrombin time (PT)on 06-02 PT Coag (PPP) [Time] Prothrombin time (PT) 9.0-11.6 [facility] RBC Auto (Bld) [#/Vol]on RBC (Bld) [#/Vol] Erythrocytes [#/volume] in Blood by Automated count 4.20-5.40 [facility] Serum or plasma albumin/glob ulin mass ratioon 06-19-2024 Albumin/Globulin [Mass ratio] Serum or plasma albumin/globulin mass ratio [facility] Serum or plasma anion gap de terminationon 06-19-2024 Anion gap [Moles/Vol] Serum or plasma anion gap determination [facility] Cholesterol in LDL Calc [Mas s/Vol]on 06-12-2024 Cholesterol in LDL [Mass/Vol] Cholesterol in LDL [Mass/volume] in Serum or Plasma by calculation [facility] Comment on above: <100 mg/dl [id number] 0-129 mg/dl NEAR OR ABOVE [id number] mg/dl BORDERLINE [id number] mg/dl HIGH>190 mg/dl VERY HIGH Cholesterol in VLDL Calc [Ma ss/Vol]on 06-12-2024 Cholesterol in VLDL [Mass/Vol] Cholesterol in VLDL [Mass/volume] in Serum or Plasma by calculation [facility] Estimated glomerular filtrat ion rate (GFR) non- Americanon 06-12-2024 GFR/1.73 sq M.predicted among non-blacks MDRD (S/P/Bld) [Vol rate/Area] Estimated glomerular filtration rate (GFR) non- >=60 mL/min/1.73m 2 [facility] Globulin Calc (S) [Mass/Vol] on 06-12-2024 Globulin (S) [Mass/Vol] Serum globulin measurement by calculation (mass/volume) [facility] Laboratory - Chemistry and C hemistry - challengeon 06-12-2024 Albumin [Mass/Vol] 3.1 g/dL Low 3.4-5.0 [facility] ALP [Catalytic activity/Vol] 118 U/L High 46-116 [facility] ALT [Catalytic activity/Vol] 36 U/L 14-59 [facility] AST [Catalytic activity/Vol] 18 U/L 15-37 [facility] Bilirubin [Mass/Vol] 0.3 mg/dL 0.2-1.0 [facility] Calcium [Mass/Vol] 9.1 mg/dL 8.5-10.1 [facility] Chloride [Moles/Vol] 102 mmol/L 98-107 [facility] Cholesterol [Mass/Vol] 124 mg/dL <=200 [facility] Cholesterol in HDL [Mass/Vol] 43 mg/dL 40-60 [facility] Comment on above: > or =60 mg/dl - LOW CARDIOVASCULAR RISK<40 mg/dl - HIGH CARDIOVASCULAR RISK CO2 [Moles/Vol] 28.4 mmol/L 21.0-32.0 [facility] Cobalamin (Vitamin B12) [Mass/Vol] 998 pg/mL [id number] [facility] Comment on above: Performed at: - [address] [id number] Director: Gerald Jacobs PhD, Phone: [phone] Creatinine [Mass/Vol] 0.87 mg/dL 0.55-1.02 [facility] GFR/1.73 sq M.predicted MDRD (S/P/Bld) [Vol rate/Area] mL/min/{1.73_m2} >=60 mL/min/1.73m 2 [facility] Glucose [Mass/Vol] 197 mg/dL High 74-106 [facility] Potassium [Moles/Vol] 4.5 mmol/L 3.5-5.1 [facility] Protein [Mass/Vol] 7.3 g/dL 6.4-8.2 [facility] Sodium [Moles/Vol] 142 mmol/L 136-145 [facility] Triglyceride [Mass/Vol] 68 mg/dL <=150 [facility] Urea nitrogen [Mass/Vol] 11.0 mg/dL 7.0-18.0 [facility] Urea nitrogen/Creatinine [Mass ratio] 12.6 mg/mg [facility] No Panel Informationon 06-12 25-Hydroxy Vitamin D Total 44.6 ng/mL [facility] Comment on above: <20 ng/mL Vit D defi cient20-<30 ng/mL Vit D [id number] ng/mL Vit D sufficient>100 ng/mL Potential Toxicity Serum or plasma albumin/glob ulin mass ratioon 06-12-2024 Albumin/Globulin [Mass ratio] Serum or plasma albumin/globulin mass ratio [facility] Serum or plasma anion gap de terminationon 06-12-2024 Anion gap [Moles/Vol] Serum or plasma anion gap determination [facility] Serum or plasma total choles terol/high density lipoprotein (HDL) cholesterol mass jaun 06-12-2024 Cholesterol.total/Ch olesterol in HDL [Mass ratio] Serum or plasma total cholesterol/high density lipoprotein (HDL) cholesterol mass rat [facility] Comment on above: 3.3 - 4.4 LOW RISK4. 4 - 7.1 AVERAGE RISK7.1 - 11.0 MODERATE RISK>11.0 HIGH RISK Basophils Auto (Bld) [#/Vol] on 06-07-2024 Basophils (Bld) [#/Vol] Automated basophil count 0.0-0.1 [facility] Basophils/100 WBC Auto (Bld) on 06-07-2024 Basophils/100 WBC (Bld) Automated basophil % 0.2-2.0 [facility] Eosinophils/100 WBC Auto (Bl d)on 06-07-2024 Eosinophils/100 WBC (Bld) Automated eosinophil % 0.9-7.0 [facility] Erythrocyte distribution wid th Auto (RBC) [Ratio]on 06-07-2024 Erythrocyte distribution width (RBC) [Ratio] Erythrocyte distribution width [Ratio] by Automated count 11.0-15.0 [facility] Estimated glomerular filtrat ion rate (GFR) non- Americanon 06-07-2024 GFR/1.73 sq M.predicted among non-blacks MDRD (S/P/Bld) [Vol rate/Area] Estimated glomerular filtration rate (GFR) non- >=60 mL/min/1.73m 2 [facility] Globulin Calc (S) [Mass/Vol] on 06-07-2024 Globulin (S) [Mass/Vol] Serum globulin measurement by calculation (mass/volume) [facility] Hematocrit Auto (Bld) [Volum e fraction]on 06-07-2024 Hematocrit (Bld) [Volume fraction] Hematocrit [Volume Fraction] of Blood by Automated count 36.0-48.0 [facility] Hemoglobin [Mass/volume] in Bloodon 06-07-2024 Hemoglobin (Bld) [Mass/Vol] Hemoglobin [Mass/volume] in Blood 12.0-16.0 [facility] Laboratory - Chemistry and C hemistry - challengeon 06-07-2024 Lactate [Moles/Vol] 1.9 mmol/L 0.4-2.0 [facility] Albumin [Mass/Vol] 3.3 g/dL Low 3.4-5.0 [facility] ALP [Catalytic activity/Vol] 115 U/L 46-116 [facility] ALT [Catalytic activity/Vol] 39 U/L 14-59 [facility] AST [Catalytic activity/Vol] 16 U/L 15-37 [facility] Bilirubin [Mass/Vol] 0.2 mg/dL 0.2-1.0 [facility] Calcium [Mass/Vol] 9.4 mg/dL 8.5-10.1 [facility] Chloride [Moles/Vol] 104 mmol/L 98-107 [facility] CO2 [Moles/Vol] 27.1 mmol/L 21.0-32.0 [facility] Creatinine [Mass/Vol] 0.86 mg/dL 0.55-1.02 [facility] GFR/1.73 sq M.predicted MDRD (S/P/Bld) [Vol rate/Area] mL/min/{1.73_m2} >=60 mL/min/1.73m 2 [facility] Glucose [Mass/Vol] 157 mg/dL High 74-106 [facility] Potassium [Moles/Vol] 4.4 mmol/L 3.5-5.1 [facility] Protein [Mass/Vol] 7.3 g/dL 6.4-8.2 [facility] Sodium [Moles/Vol] 142 mmol/L 136-145 [facility] Urea nitrogen [Mass/Vol] 23.0 mg/dL High 7.0-18.0 [facility] Urea nitrogen/Creatinine [Mass ratio] 26.7 mg/mg [facility] Laboratory - Hematology and Cell countson 06-07-2024 ESR (Bld) [Velocity] 41 mm/h High <=30 [facility] Immature granulocytes/100 WBC (Bld) 0.2 % 0.0-0.5 [facility] Leukocytes [#/volume] correc alma delia for nucleated erythrocytes in Blood by Automated counon 06-07-2024 WBC corrected for nucl RBC Auto (Bld) [#/Vol] Leukocytes [#/volume] corrected for nucleated erythrocytes in Blood by Automated coun 4.0-11.0 [facility] Lymphocytes Auto (Bld) [#/Vo l]on 06-07-2024 Lymphocytes (Bld) [#/Vol] Lymphocytes [#/volume] in Blood by Automated count 1.2-3.8 [facility] Lymphocytes/100 WBC Auto (Bl d)on 06-07-2024 Lymphocytes/100 WBC (Bld) Lymphocytes/100 leukocytes in Blood by Automated count 20.5-60.0 [facility] MCH Auto (RBC) [Entitic mass ]on 06-07-2024 MCH (RBC) [Entitic mass] MCH [Entitic mass] by Automated count 26.7-34.0 [facility] MCHC Auto (RBC) [Mass/Vol]on 06-07-2024 MCHC (RBC) [Mass/Vol] MCHC [Mass/volume] by Automated count 29.9-35.2 [facility] MCV Auto (RBC) [Entitic vol] on 06-07-2024 MCV (RBC) [Entitic vol] MCV [Entitic volume] by Automated count 81.0-99.0 [facility] Monocytes Auto (Bld) [#/Vol] on 06-07-2024 Monocytes (Bld) [#/Vol] Automated blood monocyte count 0.3-0.8 [facility] Monocytes/100 WBC Auto (Bld) on 06-07-2024 Monocytes/100 WBC (Bld) Automated monocyte % 1.7-12.0 [facility] Neutrophils Auto (Bld) [#/Vo l]on 06-07-2024 Neutrophils (Bld) [#/Vol] Neutrophils [#/volume] in Blood by Automated count 1.4-6.5 [facility] Neutrophils/100 WBC Auto (Bl d)on 06-07-2024 Neutrophils/100 WBC (Bld) Automated neutrophil % 43.0-75.0 [facility] No Panel Informationon 06-07 C-Reactive Protein, Quantitative 1.46 mg/dL High <=0.50 [facility] Eosinophils # (Auto) 0.3 10 3/uL 0.0-0.7 [facility] Immature Granulocyte # (Auto) 0.02 10 3/uL 0.00-0.03 [facility] Platelet mean volume Auto (B ld) [Entitic vol]on 06-07-2024 Platelet mean volume (Bld) [Entitic vol] Platelet mean volume [Entitic volume] in Blood by Automated count 9.5-13.5 [facility] Platelets Auto (Bld) [#/Vol] on 06-07-2024 Platelets (Bld) [#/Vol] Platelets [#/volume] in Blood by Automated count 150-450 [facility] RBC Auto (Bld) [#/Vol]on RBC (Bld) [#/Vol] Erythrocytes [#/volume] in Blood by Automated count 4.20-5.40 [facility] Serum or plasma albumin/glob ulin mass ratioon 06-07-2024 Albumin/Globulin [Mass ratio] Serum or plasma albumin/globulin mass ratio [facility] Serum or plasma anion gap de terminationon 06-07-2024 Anion gap [Moles/Vol] Serum or plasma anion gap determination [facility] Basophils Auto (Bld) [#/Vol] on 06-01-2024 Basophils (Bld) [#/Vol] Automated basophil count 0.0-0.1 [facility] Basophils/100 WBC Auto (Bld) on 06-01-2024 Basophils/100 WBC (Bld) Automated basophil % 0.2-2.0 [facility] Eosinophils/100 WBC Auto (Bl d)on 06-01-2024 Eosinophils/100 WBC (Bld) Automated eosinophil % 0.9-7.0 [facility] Erythrocyte distribution wid th Auto (RBC) [Ratio]on 06-01-2024 Erythrocyte distribution width (RBC) [Ratio] Erythrocyte distribution width [Ratio] by Automated count 11.0-15.0 [facility] Estimated glomerular filtrat ion rate (GFR) non- Americanon 06-01-2024 GFR/1.73 sq M.predicted among non-blacks MDRD (S/P/Bld) [Vol rate/Area] Estimated glomerular filtration rate (GFR) non- Low >=60 mL/min/1.73m 2 [facility] Hematocrit Auto (Bld) [Volum e fraction]on 06-01-2024 Hematocrit (Bld) [Volume fraction] Hematocrit [Volume Fraction] of Blood by Automated count 36.0-48.0 [facility] Hemoglobin [Mass/volume] in Bloodon 06-01-2024 Hemoglobin (Bld) [Mass/Vol] Hemoglobin [Mass/volume] in Blood 12.0-16.0 [facility] Laboratory - Chemistry and C hemistry - challengeon 06-01-2024 Calcium [Mass/Vol] 9.0 mg/dL 8.5-10.1 [facility] Chloride [Moles/Vol] 105 mmol/L 98-107 [facility] CO2 [Moles/Vol] 29.8 mmol/L 21.0-32.0 [facility] Creatinine [Mass/Vol] 1.01 mg/dL 0.55-1.02 [facility] GFR/1.73 sq M.predicted MDRD (S/P/Bld) [Vol rate/Area] mL/min/{1.73_m2} >=60 mL/min/1.73m 2 [facility] Glucose [Mass/Vol] 171 mg/dL High 74-106 [facility] Potassium [Moles/Vol] 4.6 mmol/L 3.5-5.1 [facility] Sodium [Moles/Vol] 140 mmol/L 136-145 [facility] Urea nitrogen [Mass/Vol] 15.0 mg/dL 7.0-18.0 [facility] Urea nitrogen/Creatinine [Mass ratio] 14.9 mg/mg [facility] Laboratory - Hematology and Cell countson 06-01-2024 Immature granulocytes/100 WBC (Bld) 0.3 % 0.0-0.5 [facility] Leukocytes [#/volume] correc alma delia for nucleated erythrocytes in Blood by Automated counon 06-01-2024 WBC corrected for nucl RBC Auto (Bld) [#/Vol] Leukocytes [#/volume] corrected for nucleated erythrocytes in Blood by Automated coun 4.0-11.0 [facility] Lymphocytes Auto (Bld) [#/Vo l]on 06-01-2024 Lymphocytes (Bld) [#/Vol] Lymphocytes [#/volume] in Blood by Automated count 1.2-3.8 [facility] Lymphocytes/100 WBC Auto (Bl d)on 06-01-2024 Lymphocytes/100 WBC (Bld) Lymphocytes/100 leukocytes in Blood by Automated count 20.5-60.0 [facility] MCH Auto (RBC) [Entitic mass ]on 06-01-2024 MCH (RBC) [Entitic mass] MCH [Entitic mass] by Automated count 26.7-34.0 [facility] MCHC Auto (RBC) [Mass/Vol]on 06-01-2024 MCHC (RBC) [Mass/Vol] MCHC [Mass/volume] by Automated count 29.9-35.2 [facility] MCV Auto (RBC) [Entitic vol] on 06-01-2024 MCV (RBC) [Entitic vol] MCV [Entitic volume] by Automated count 81.0-99.0 [facility] Monocytes Auto (Bld) [#/Vol] on 06-01-2024 Monocytes (Bld) [#/Vol] Automated blood monocyte count 0.3-0.8 [facility] Monocytes/100 WBC Auto (Bld) on 06-01-2024 Monocytes/100 WBC (Bld) Automated monocyte % 1.7-12.0 [facility] Neutrophils Auto (Bld) [#/Vo l]on 06-01-2024 Neutrophils (Bld) [#/Vol] Neutrophils [#/volume] in Blood by Automated count 1.4-6.5 [facility] Neutrophils/100 WBC Auto (Bl d)on 06-01-2024 Neutrophils/100 WBC (Bld) Automated neutrophil % 43.0-75.0 [facility] No Panel Informationon 06-01 Eosinophils # (Auto) 0.2 10 3/uL 0.0-0.7 [facility] Immature Granulocyte # (Auto) 0.02 10 3/uL 0.00-0.03 [facility] Platelet mean volume Auto (B ld) [Entitic vol]on 06-01-2024 Platelet mean volume (Bld) [Entitic vol] Platelet mean volume [Entitic volume] in Blood by Automated count 9.5-13.5 [facility] Platelets Auto (Bld) [#/Vol] on 06-01-2024 Platelets (Bld) [#/Vol] Platelets [#/volume] in Blood by Automated count 150-450 [facility] RBC Auto (Bld) [#/Vol]on RBC (Bld) [#/Vol] Erythrocytes [#/volume] in Blood by Automated count 4.20-5.40 [facility] Serum or plasma anion gap de terminationon 06-01-2024 Anion gap [Moles/Vol] Serum or plasma anion gap determination [facility] Basophils Auto (Bld) [#/Vol] on 05-16-2024 Basophils (Bld) [#/Vol] Automated basophil count 0.0-0.1 [facility] Basophils/100 WBC Auto (Bld) on 05-16-2024 Basophils/100 WBC (Bld) Automated basophil % 0.2-2.0 [facility] Eosinophils/100 WBC Auto (Bl d)on 05-16-2024 Eosinophils/100 WBC (Bld) Automated eosinophil % 0.9-7.0 [facility] Erythrocyte distribution wid th Auto (RBC) [Ratio]on 05-16-2024 Erythrocyte distribution width (RBC) [Ratio] Erythrocyte distribution width [Ratio] by Automated count 11.0-15.0 [facility] Estimated glomerular filtrat ion rate (GFR) non- Americanon 05-16-2024 GFR/1.73 sq M.predicted among non-blacks MDRD (S/P/Bld) [Vol rate/Area] Estimated glomerular filtration rate (GFR) non- Low >=60 mL/min/1.73m 2 [facility] Hematocrit Auto (Bld) [Volum e fraction]on 05-16-2024 Hematocrit (Bld) [Volume fraction] Hematocrit [Volume Fraction] of Blood by Automated count 36.0-48.0 [facility] Hemoglobin [Mass/volume] in Bloodon 05-16-2024 Hemoglobin (Bld) [Mass/Vol] Hemoglobin [Mass/volume] in Blood 12.0-16.0 [facility] Laboratory - Chemistry and C hemistry - challengeon 05-16-2024 Calcium [Mass/Vol] 9.1 mg/dL 8.5-10.1 [facility] Chloride [Moles/Vol] 104 mmol/L 98-107 [facility] CO2 [Moles/Vol] 30.6 mmol/L 21.0-32.0 [facility] Creatinine [Mass/Vol] 1.01 mg/dL 0.55-1.02 [facility] GFR/1.73 sq M.predicted MDRD (S/P/Bld) [Vol rate/Area] mL/min/{1.73_m2} >=60 mL/min/1.73m 2 [facility] Glucose [Mass/Vol] 206 mg/dL High 74-106 [facility] Potassium [Moles/Vol] 5.1 mmol/L 3.5-5.1 [facility] Sodium [Moles/Vol] 141 mmol/L 136-145 [facility] Urea nitrogen [Mass/Vol] 12.0 mg/dL 7.0-18.0 [facility] Urea nitrogen/Creatinine [Mass ratio] 11.9 mg/mg [facility] Laboratory - Hematology and Cell countson 05-16-2024 ESR (Bld) [Velocity] 28 mm/h <=30 [facility] Immature granulocytes/100 WBC (Bld) 0.3 % 0.0-0.5 [facility] Leukocytes [#/volume] correc alma delia for nucleated erythrocytes in Blood by Automated counon 05-16-2024 WBC corrected for nucl RBC Auto (Bld) [#/Vol] Leukocytes [#/volume] corrected for nucleated erythrocytes in Blood by Automated coun 4.0-11.0 [facility] Lymphocytes Auto (Bld) [#/Vo l]on 05-16-2024 Lymphocytes (Bld) [#/Vol] Lymphocytes [#/volume] in Blood by Automated count 1.2-3.8 [facility] Lymphocytes/100 WBC Auto (Bl d)on 05-16-2024 Lymphocytes/100 WBC (Bld) Lymphocytes/100 leukocytes in Blood by Automated count 20.5-60.0 [facility] MCH Auto (RBC) [Entitic mass ]on 05-16-2024 MCH (RBC) [Entitic mass] MCH [Entitic mass] by Automated count 26.7-34.0 [facility] MCHC Auto (RBC) [Mass/Vol]on 05-16-2024 MCHC (RBC) [Mass/Vol] MCHC [Mass/volume] by Automated count 29.9-35.2 [facility] MCV Auto (RBC) [Entitic vol] on 05-16-2024 MCV (RBC) [Entitic vol] MCV [Entitic volume] by Automated count 81.0-99.0 [facility] Monocytes Auto (Bld) [#/Vol] on 05-16-2024 Monocytes (Bld) [#/Vol] Automated blood monocyte count 0.3-0.8 [facility] Monocytes/100 WBC Auto (Bld) on 05-16-2024 Monocytes/100 WBC (Bld) Automated monocyte % 1.7-12.0 [facility] Neutrophils Auto (Bld) [#/Vo l]on 05-16-2024 Neutrophils (Bld) [#/Vol] Neutrophils [#/volume] in Blood by Automated count 1.4-6.5 [facility] Neutrophils/100 WBC Auto (Bl d)on 05-16-2024 Neutrophils/100 WBC (Bld) Automated neutrophil % 43.0-75.0 [facility] No Panel Informationon 05-16 C-Reactive Protein, Quantitative 1.26 mg/dL High <=0.50 [facility] Eosinophils # (Auto) 0.3 10 3/uL 0.0-0.7 [facility] Immature Granulocyte # (Auto) 0.02 10 3/uL 0.00-0.03 [facility] Platelet mean volume Auto (B ld) [Entitic vol]on 05-16-2024 Platelet mean volume (Bld) [Entitic vol] Platelet mean volume [Entitic volume] in Blood by Automated count 9.5-13.5 [facility] Platelets Auto (Bld) [#/Vol] on 05-16-2024 Platelets (Bld) [#/Vol] Platelets [#/volume] in Blood by Automated count 150-450 [facility] RBC Auto (Bld) [#/Vol]on RBC (Bld) [#/Vol] Erythrocytes [#/volume] in Blood by Automated count 4.20-5.40 [facility] Serum or plasma anion gap de terminationon 05-16-2024 Anion gap [Moles/Vol] Serum or plasma anion gap determination [facility] Creatinine [Mass/volume] in UrineOrdered By: Cathie Vargas on 02-23-2024 Creatinine (U) [Mass/Vol] 28.00 mg/dL [facility] Comment on above: No reference range e stablished MicroAlb Creat Ratio,Uon Creatinine, Urine (Random) 28.00 mg/dL Normal [facility] Comment on above: Result Comment: No r eference range established Performed By: #### U RMACRERAT #### [facility] [address] [place] [address] Microalbumin/Creatin ine Ratio Not performed Normal 0.0-30.0 [facility] Comment on above: Result Comment: PERF ORMED BY: [place] [address] PATHOLOGIST [employer]ING [employer]TER RUBINA RICCI M.D. Performed By: #### U RMACRERAT #### [facility] [address] [place] [address] Microalbumin [Mass/volume] i n UrineOrdered By: Cathie Vargas on 02-23-2024 Albumin DL <= 20 mg/L (U) [Mass/Vol] mg/dL Normal 0.0-1.8 [facility] Comment on above: Performed By: #### U RMACRERAT #### [facility] [address] [place] [address] Urine microalbumin/creatinin e mass ratioOrdered By: Cathie Vargas on 02-23-2024 Albumin/Creatinine DL <= 20 mg/L (U) [Mass ratio] TNP [facility] Comment on above: Test not performed HbA1c HPLC (Bld) [Mass fract ion]on 12-13-2023 HbA1c (Bld) [Mass fraction] 9.9 % [facility] No Panel Informationon 12-12 Bedside Glucose 118 [facility] No Panel Informationon 09-28 Bedside Glucose 278 [facility] HbA1c HPLC (Bld) [Mass fract ion]on 07-28-2023 HbA1c (Bld) [Mass fraction] 10.3 % [facility] No Panel Informationon 07-27 Bedside Glucose 126 [facility] Basophils Auto (Bld) [#/Vol] on 07-12-2023 Basophils (Bld) [#/Vol] 0.0 10 3/uL 0.0-0.1 [facility] Basophils/100 WBC Auto (Bld) on 07-12-2023 Basophils/100 WBC (Bld) 0.5 % 0.2-2.0 [facility] Eosinophils/100 WBC Auto (Bl d)on 07-12-2023 Eosinophils/100 WBC (Bld) 1.5 % 0.9-7.0 [facility] Erythrocyte distribution wid th Auto (RBC) [Ratio]on 07-12-2023 Erythrocyte distribution width (RBC) [Ratio] 12.7 % 11.0-15.0 [facility] Estimated glomerular filtrat ion rate (GFR) non- Americanon 07-12-2023 GFR/1.73 sq M.predicted among non-blacks MDRD (S/P/Bld) [Vol rate/Area] mL/min/{1.73_m2} >=60 [facility] Hematocrit Auto (Bld) [Volum e fraction]on 07-12-2023 Hematocrit (Bld) [Volume fraction] 42.8 % 36.0-48.0 [facility] Hemoglobin [Mass/volume] in Bloodon 07-12-2023 Hemoglobin (Bld) [Mass/Vol] 14.3 g/dL 12.0-16.0 [facility] Laboratory - Chemistry and C hemistry - challengeon 07-12-2023 Calcium [Mass/Vol] 9.1 mg/dL 8.5-10.1 [facility] Chloride [Moles/Vol] 100 mmol/L 98-107 [facility] CO2 [Moles/Vol] 26.1 mmol/L 21.0-32.0 [facility] Creatinine [Mass/Vol] 0.78 mg/dL 0.55-1.02 [facility] GFR/1.73 sq M.predicted MDRD (S/P/Bld) [Vol rate/Area] mL/min/{1.73_m2} >=60 [facility] Glucose [Mass/Vol] 215 mg/dL 74-106 [facility] Potassium [Moles/Vol] 4.0 mmol/L 3.5-5.1 [facility] Sodium [Moles/Vol] 137 mmol/L 136-145 [facility] Urea nitrogen [Mass/Vol] 12.0 mg/dL 7.0-18.0 [facility] Urea nitrogen/Creatinine [Mass ratio] 15.4 mg/mg [facility] Laboratory - Hematology and Cell countson 07-12-2023 Immature granulocytes/100 WBC (Bld) 0.1 % 0.0-0.5 [facility] Leukocytes [#/volume] correc alma delia for nucleated erythrocytes in Blood by Automated counon 07-12-2023 WBC corrected for nucl RBC Auto (Bld) [#/Vol] 7.8 10 3/uL 4.0-11.0 [facility] Lymphocytes Auto (Bld) [#/Vo l]on 07-12-2023 Lymphocytes (Bld) [#/Vol] 2.7 10 3/uL 1.2-3.8 [facility] Lymphocytes/100 WBC Auto (Bl d)on 07-12-2023 Lymphocytes/100 WBC (Bld) 34.1 % 20.5-60.0 [facility] MCH Auto (RBC) [Entitic mass ]on 07-12-2023 MCH (RBC) [Entitic mass] 29.2 pg 26.7-34.0 [facility] MCHC Auto (RBC) [Mass/Vol]on 07-12-2023 MCHC (RBC) [Mass/Vol] 33.4 g/dL 29.9-35.2 [facility] MCV Auto (RBC) [Entitic vol] on 07-12-2023 MCV (RBC) [Entitic vol] 87.5 fL 81.0-99.0 [facility] Monocytes Auto (Bld) [#/Vol] on 07-12-2023 Monocytes (Bld) [#/Vol] 0.5 10 3/uL 0.3-0.8 [facility] Monocytes/100 WBC Auto (Bld) on 07-12-2023 Monocytes/100 WBC (Bld) 6.4 % 1.7-12.0 [facility] Neutrophils Auto (Bld) [#/Vo l]on 07-12-2023 Neutrophils (Bld) [#/Vol] 4.5 10 3/uL 1.4-6.5 [facility] Neutrophils/100 WBC Auto (Bl d)on 07-12-2023 Neutrophils/100 WBC (Bld) 57.4 % 43.0-75.0 [facility] No Panel Informationon 07-11 Eosinophils # (Auto) 0.1 10 3/uL 0.0-0.7 [facility] Immature Granulocyte # (Auto) 0.01 10 3/uL 0.00-0.03 [facility] Platelet mean volume Auto (B ld) [Entitic vol]on 07-12-2023 Platelet mean volume (Bld) [Entitic vol] 10.9 fL 9.5-13.5 [facility] Platelets Auto (Bld) [#/Vol] on 07-12-2023 Platelets (Bld) [#/Vol] 259 10 3/uL 150-450 [facility] RBC Auto (Bld) [#/Vol]on RBC (Bld) [#/Vol] 4.89 10 6/uL 4.20-5.40 [facility] Serum or plasma anion gap de terminationon 07-12-2023 Anion gap [Moles/Vol] 14.9 mmol/L [facility] Glucose - FINGER STICKon Glucose [Mass/Vol] 360 mg/dL We Other CBC AUTO DIFFon 08-27-2022 BASO # 0.0 103/ul Normal 0.0-0.1 [facility] Comment on above: Performed By: #### C BC #### [facility] [address] [place] [address] Dr. Sarah Church Basophils/100 WBC (Bld) 0.5 % Normal 0.2-2.0 [facility] Comment on above: Performed By: #### C BC #### [facility] [address] [address] [address] Sarah Church EO # 0.2 103/ul Normal 0.0-0.7 [facility] Comment on above: Performed By: #### C BC #### [facility] [address] [place] [address] Dr. Sarah Church Eosinophils/100 WBC (Bld) 2.2 % Normal 0.9-7.0 [facility] Comment on above: Performed By: #### C BC #### [facility] [address] [place] [address] Dr. Sarah Church Erythrocyte distribution width (RBC) [Ratio] 12.5 % Normal 11.0-15.0 [facility] Comment on above: Performed By: #### C BC #### [facility] [address] [place] [address] Dr. Sarah Church Hematocrit (Bld) [Volume fraction] 44.1 % Normal 36.0-48.0 [facility] Comment on above: Performed By: #### C BC #### [facility] [address] [place] [address] Dr. Sarah Church Hemoglobin (Bld) [Mass/Vol] 15.1 g/dL Normal 12.0-16.0 [facility] Comment on above: Performed By: #### C BC #### [facility] [address] [place] [address] Dr. Sarah Church IG # 0.02 10e3/ul Normal 0.00-0.03 [facility] Comment on above: Performed By: #### C BC #### [facility] [address] [place] [address] Dr. Sarah Church IG % 0.2 % Normal 0.0-0.5 [facility] Comment on above: Performed By: #### C BC #### [facility] [address] [place] [address] Dr. Sarah Church LYMPH # 2.9 103/ul Normal 1.2-3.8 [facility] Comment on above: Performed By: #### C BC #### [facility] [address] [place] [address] Dr. Sarah Church Lymphocytes/100 WBC (Bld) 33.4 % Normal 20.5-60.0 [facility] Comment on above: Performed By: #### C BC #### [facility] [address] [place] [address] Dr. Sarah Church MANUAL DIFF REQ NO Normal [facility] Comment on above: Performed By: #### C BC #### [facility] [address] [address] [address] Sarah Church MCH (RBC) [Entitic mass] 29.1 pg Normal 26.7-34.0 [facility] Comment on above: Performed By: #### C BC #### [facility] [address] [place] [address] Dr. Sarah Church MCHC (RBC) [Mass/Vol] 34.2 g/dL Normal 29.9-35.2 [facility] Comment on above: Performed By: #### C BC #### [facility] [address] [place] [address] Dr. Sarah Church MCV (RBC) [Entitic vol] 85.0 fL Normal 81.0-99.0 [facility] Comment on above: Performed By: #### C BC #### [facility] [address] [place] [address] Dr. Sarah Church MONO # 0.6 103/ul Normal 0.3-0.8 [facility] Comment on above: Performed By: #### C BC #### [facility] [address] [place] [address] Dr. Sarah Church Monocytes/100 WBC (Bld) 6.8 % Normal 1.7-12.0 [facility] Comment on above: Performed By: #### C BC #### [facility] [address] [place] [address] Dr. Sarah Church NEUT # 4.9 103/ul Normal 1.4-6.5 [facility] Comment on above: Performed By: #### C BC #### [facility] [address] [place] [address] Dr. Sarah Church Neutrophils/100 WBC (Bld) 56.9 % Normal 43.0-75.0 [facility] Comment on above: Performed By: #### C BC #### [facility] [address] [place] [address] Dr. Sarah Church Platelet mean volume (Bld) [Entitic vol] 10.8 fL Normal 9.5-13.5 [facility] Comment on above: Performed By: #### C BC #### [facility] [address] [address] [address] Sarah Church PLT 276 103/ul Normal 150-450 [facility] Comment on above: Performed By: #### C BC #### [facility] [address] [address] [address] Sarah Church RBC 5.19 106/ul Normal 4.20-5.40 [facility] Comment on above: Performed By: #### C BC #### [facility] [address] [address] [address] Sarah Church WBC 8.6 103/ul Normal 4.0-11.0 [facility] Comment on above: Performed By: #### C BC #### [facility] [address] [place] [address] Dr. Sarah Church LIPID PROFILEon 08-27-2022 CHOL-HDL RATIO NORM SEE BELOW Normal [facility] Comment on above: Result Comment: 3.3 - 4.4 LOW RISK 4.4 - 7.1 AVERAGE RISK 7.1 - 11.0 MODERATE RISK >11.0 HIGH RISK Performed By: #### L IPID, CMP #### [facility] [address] [place] [address] Dr. Sarah Church Cholesterol [Mass/Vol] 110 mg/dL Normal <=200 [facility] Comment on above: Performed By: #### L IPID, CMP #### [facility] [address] [place] [address] Dr. Sarah Church Cholesterol in HDL [Mass/Vol] 33 mg/dL Critically low 40-60 [facility] Comment on above: Performed By: #### L IPID, CMP #### [facility] [address] [place] [address] Dr. Sarah Church Cholesterol in LDL [Mass/Vol] 58.0 mg/dL Normal [facility] Comment on above: Performed By: #### L IPID, CMP #### [facility] [address] [place] [address] Dr. Sarah Church Cholesterol.total/Ch olesterol in HDL [Mass ratio] 3.3 {ratio} Normal [facility] Comment on above: Performed By: #### L IPID, CMP #### [facility] [address] [address] [address] Sarah Church HDL NORMAL > or = 60 mg/dl - LOW CARDIOVASCULAR RISK <40 mg/dl - HIGH CARDIOVASCULAR RISK Normal [facility] Comment on above: Performed By: #### L IPID, CMP #### [facility] [address] [address] [address] Sarah Church LDL CALC NORMAL SEE BELOW Normal [facility] Comment on above: Result Comment: <100 mg/dl OPTIMAL 100 - 129 mg/dl NEAR OR ABOVE OPTIMAL 130 - 159 mg/dl BORDERLINE HIGH 160 - 189 mg/dl HIGH >190 mg/dl VERY HIGH Performed By: #### L IPID, CMP #### [facility] [address] [address] [address] Sarah Church Triglyceride [Mass/Vol] 95 mg/dL Normal <=150 [facility] Comment on above: Performed By: #### L IPID, CMP #### [facility] [address] [address] [address] Sarah Church VLDL CALC 19.0 mg/dL Normal [facility] Comment on above: Performed By: #### L IPID, CMP #### [facility] [address] [address] [address] Sarah Church PROF 14(COMP METB)on 023 Albumin [Mass/Vol] 3.3 g/dL Critically low 3.4-5.0 [facility] Comment on above: Performed By: #### L IPID, CMP #### [facility] [address] [address] [address] Sarah Church Albumin/Globulin [Mass ratio] 0.8 {ratio} Normal [facility] Comment on above: Performed By: #### L IPID, CMP #### [facility] [address] [address] [address] Sarah Church ALP [Catalytic activity/Vol] 100 U/L Normal 46-116 [facility] Comment on above: Performed By: #### L IPID, CMP #### [facility] [address] [address] [address] Sarah Church ALT [Catalytic activity/Vol] 74 U/L Critically high 14-59 [facility] Comment on above: Performed By: #### L IPID, CMP #### [facility] [address] [address] [address] Sarah Church Anion gap [Moles/Vol] 13.2 mmol/L Normal [facility] Comment on above: Performed By: #### L IPID, CMP #### [facility] [address] [address] [address] Sarah Church AST [Catalytic activity/Vol] 42 U/L Critically high 15-37 [facility] Comment on above: Performed By: #### L IPID, CMP #### [facility] [address] [address] [address] Sarah Church Bilirubin [Mass/Vol] 0.4 mg/dL Normal 0.2-1.0 [facility] Comment on above: Performed By: #### L IPID, CMP #### [facility] [address] [address] [address] Sarah Church Calcium [Mass/Vol] 9.2 mg/dL Normal 8.5-10.1 [facility] Comment on above: Performed By: #### L IPID, CMP #### [facility] [address] [address] [address] Sarah Church Chloride [Moles/Vol] 99 mmol/L Normal 98-107 [facility] Comment on above: Performed By: #### L IPID, CMP #### [facility] [address] [address] [address] Sarah Church CO2 [Moles/Vol] 30.4 mmol/L Normal 21.0-32.0 [facility] Comment on above: Performed By: #### L IPID, CMP #### [facility] [address] [address] [address] Sarah Church Creatinine [Mass/Vol] 0.78 mg/dL Normal 0.55-1.02 [facility] Comment on above: Performed By: #### L IPID, CMP #### [facility] [address] [address] [address] Sarah Church EGFR-AF TURKISH >60 Normal >=60 [facility] Comment on above: Performed By: #### L IPID, CMP #### [facility] [address] [address] [address] Sarah Church EGFR-NON AF TURKISH >60 Normal >=60 [facility] Comment on above: Performed By: #### L IPID, CMP #### [facility] [address] [address] [address] Sarah Church Globulin (S) [Mass/Vol] 4.0 g/dL Normal [facility] Comment on above: Performed By: #### L IPID, CMP #### [facility] [address] [address] [address] Sarah Church Glucose [Mass/Vol] 255 mg/dL Critically high 74-106 [facility] Comment on above: Performed By: #### L IPID, CMP #### [facility] [address] [address] [address] Sarah Church Potassium [Moles/Vol] 3.6 mmol/L Normal 3.5-5.1 [facility] Comment on above: Performed By: #### L IPID, CMP #### [facility] [address] [address] [address] Sarah Church Protein [Mass/Vol] 7.3 g/dL Normal 6.4-8.2 [facility] Comment on above: Performed By: #### L IPID, CMP #### [facility] [address] [address] [address] Sarah Church Sodium [Moles/Vol] 139 mmol/L Normal 136-145 [facility] Comment on above: Performed By: #### L IPID, CMP #### [facility] [address] [address] [address] Sarah Church Urea nitrogen [Mass/Vol] 8.0 mg/dL Normal 7.0-18.0 [facility] Comment on above: Performed By: #### L IPID, CMP #### [facility] [address] [address] [address] Sarah Church Urea nitrogen/Creatinine [Mass ratio] 10.3 mg/mg Normal [facility] Comment on above: Performed By: #### L IPID, CMP #### [facility] [address] [place], [place] [address] Dr. Sarah Church MG MAMM SCREEN 3D ROB CADon 07-20-2022 MG MAMM SCREEN 3D ROB CAD Patient: ZOILA RAMOS Exam Date: 07/20/2022 : 1970 Gender:F Ordering : DR SHAYY DELA CRUZ M.D. Admission #: [id number] Family : Order #: [id number] CLICK HERE TO VIEW EXAM RADIOLOGY REPORT PROCEDURE: MAMMOGRAM SCREENING 3D BILATERAL CAD COMPARISON: MAMMO ROB SCREEN W CAD DIG, 05/16/2012. INDICATIONS: Screening mammography Calculator Name NCI Breast Cancer Risk Assessment Tool 5 Year Breast Cancer Risk 1.20% Lifetime Breast Cancer Risk 10.80% Personal Breast Cancer No Personal Ovarian Cancer No Treatments None Family Cancers None LOCATION: [facility] BREAST COMPOSITION: Almost entirely fatty. FINDINGS: DIAGNOSTIC [...] M.D. on 07/21/2022 at 08:24 Normal [facility] PROF CHEM 8 (BAS METB)on Anion gap [Moles/Vol] 14.5 mmol/L Normal [facility] Comment on above: Performed By: #### B MP #### [facility] [address] [place], [place] [address] Dr. Sarah Church Calcium [Mass/Vol] 9.8 mg/dL Normal 8.5-10.1 [facility] Comment on above: Performed By: #### B MP #### [facility] [address] [address] [address] Sarah Church Chloride [Moles/Vol] 99 mmol/L Normal 98-107 [facility] Comment on above: Performed By: #### B MP #### [facility] [address] [address] [address] Sarah Church CO2 [Moles/Vol] 27.2 mmol/L Normal 21.0-32.0 [facility] Comment on above: Performed By: #### B MP #### [facility] [address] [address] [address] Sarah Church Creatinine [Mass/Vol] 0.80 mg/dL Normal 0.55-1.02 [facility] Comment on above: Performed By: #### B MP #### [facility] [address] [place] [address] Dr. Sarah Church EGFR-AF TURKISH >60 Normal >=60 [facility] Comment on above: Performed By: #### B MP #### [facility] [address] [address] [address] Sarah Church EGFR-NON AF TURKISH >60 Normal >=60 [facility] Comment on above: Performed By: #### B MP #### [facility] [address] [place] [address] Dr. Sarah Church Glucose [Mass/Vol] 458 mg/dL Critically high 74-106 [facility] Comment on above: Performed By: #### B MP #### [facility] [address] [address] [address] Sarah Church Potassium [Moles/Vol] 4.7 mmol/L Normal 3.5-5.1 [facility] Comment on above: Performed By: #### B MP #### [facility] [address] [address] [address] Sarah Church Sodium [Moles/Vol] 136 mmol/L Normal 136-145 [facility] Comment on above: Performed By: #### B MP #### [facility] [address] [address] [address] Sarah Church Urea nitrogen [Mass/Vol] 15.0 mg/dL Normal 7.0-18.0 [facility] Comment on above: Performed By: #### B MP #### [facility] [address] [address] [address] Sarha Church Urea nitrogen/Creatinine [Mass ratio] 18.8 mg/mg Normal [facility] Comment on above: Performed By: #### B MP #### [facility] [address] [address] [address] Sarah Church GLYCOHEMOGLOBIN A1Con 2022 ADA RECOMMENDATION SEE BELOW Normal [facility] Comment on above: Result Comment: ADA RECOMMENDED LIMIT 4.0 - 6.0 ADA THERAPEUTIC TARGET < 7.0 ACTION SUGGESTED > 7.0 Performed By: #### A 1C ####[facility] [id number] [address]. Sarah Church Glucose [Mass/Vol] 266 mg/dL Normal [facility] Comment on above: Performed By: #### A 1C ####[facility] [id number] [address] Sarah Church HbA1c (Bld) [Mass fraction] 10.9 % Critically high 4.5-6.2 [facility] Comment on above: Performed By: #### A 1C ####[facility] [id number] [address]Dr. Sarah Church XR HIP RT 2 3V [...] by: JAVAD ROB Date: 2022-04-06 21:15 Normal [facility] CBC AUTO DIFFon 11-05-2021 BASO # 0.1 103/ul Normal 0.0-0.1 [facility] Comment on above: Performed By: #### C BC #### [facility] [address] [address] [address] Sarah Church Basophils/100 WBC (Bld) 0.4 % Normal 0.2-2.0 [facility] Comment on above: Performed By: #### C BC #### [facility] [address] [address] [address] Sarah Church EO # 0.2 103/ul Normal 0.0-0.7 [facility] Comment on above: Performed By: #### C BC #### [facility] [address] [address] [address] Sarah Church Eosinophils/100 WBC (Bld) 1.3 % Normal 0.9-7.0 [facility] Comment on above: Performed By: #### C BC #### [facility] [address] [place] [address] Dr. Sarah Church Erythrocyte distribution width (RBC) [Ratio] 12.3 % Normal 11.0-15.0 [facility] Comment on above: Performed By: #### C BC #### [facility] [address] [place] [address] Dr. Sarah Church Hematocrit (Bld) [Volume fraction] 43.1 % Normal 36.0-48.0 [facility] Comment on above: Performed By: #### C BC #### [facility] [address] [address] [address] Sarah Church Hemoglobin (Bld) [Mass/Vol] 14.6 g/dL Normal 12.0-16.0 [facility] Comment on above: Performed By: #### C BC #### [facility] [address] [address] [address] Sarah Church IG # 0.04 10e3/ul Critically high 0.00-0.03 [facility] Comment on above: Performed By: #### C BC #### [facility] [address] [address] [address] Sarah Church IG % 0.3 % Normal 0.0-0.5 [facility] Comment on above: Performed By: #### C BC #### [facility] [address] [address] [address] Sarah Church LYMPH # 1.6 103/ul Normal 1.2-3.8 [facility] Comment on above: Performed By: #### C BC #### [facility] [address] [place] [address] Dr. Sarah Church Lymphocytes/100 WBC (Bld) 12.5 % Critically low 20.5-60.0 [facility] Comment on above: Performed By: #### C BC #### [facility] [address] [place] [address] Dr. Sarah Church MANUAL DIFF REQ NO Normal [facility] Comment on above: Performed By: #### C BC #### [facility] [address] [place] [address] Dr. Sarah Church MCH (RBC) [Entitic mass] 29.4 pg Normal 26.7-34.0 [facility] Comment on above: Performed By: #### C BC #### [facility] [address] [place] [address] Dr. Sarah Church MCHC (RBC) [Mass/Vol] 33.9 g/dL Normal 29.9-35.2 [facility] Comment on above: Performed By: #### C BC #### [facility] [address] [place] [address] Dr. Sarah Church MCV (RBC) [Entitic vol] 86.7 fL Normal 81.0-99.0 [facility] Comment on above: Performed By: #### C BC #### [facility] [address] [place] [address] Dr. Sarah Church MONO # 1.0 103/ul Critically high 0.3-0.8 [facility] Comment on above: Performed By: #### C BC #### [facility] [address] [place] [address] Dr. Sarah Church Monocytes/100 WBC (Bld) 7.7 % Normal 1.7-12.0 [facility] Comment on above: Performed By: #### C BC #### [facility] [address] [place], [place] [address] Dr. Sarah Church NEUT # 9.6 103/ul Critically high 1.4-6.[address] [facility] Comment on above: Performed By: #### C BC #### [facility] [address] [place], [place] [address] Dr. Sarah Church Neutrophils/100 WBC (Bld) 77.8 % Critically high 43.0-75.0 [facility] Comment on above: Performed By: #### C BC #### [facility] [address] [address] [address] Sarah Church Platelet mean volume (Bld) [Entitic vol] 11.0 fL Normal 9.5-13.5 [facility] Comment on above: Performed By: #### C BC #### [facility] [address] [address] [address] Sarah Church PLT 220 103/ul Normal 150-450 [facility] Comment on above: Performed By: #### C BC #### [facility] [address] [address] [address] Sarah Church RBC 4.97 106/ul Normal 4.20-5.40 [facility] Comment on above: Performed By: #### C BC #### [facility] [address] [address] [address] Sarah Church WBC 12.4 103/ul Critically high 4.0-11.0 [facility] Comment on above: Performed By: #### C BC #### [facility] [id number] Sarah Church GROUP A STREP CULTUREon S. pyogenes Ag Ql (Unsp spec) Culture Observations: NEGATIVE FOR GROUP A STREPTOCOCCUS. Normal [facility] Comment on above: Performed By: #### G RASTCX, SSCRN ####[facility] [id number] [place], [place] [address]SpDr. Saarh Church POINT OF CARE GLUCOSEon Glucose [Mass/Vol] 214 mg/dL Critically high 74-106 [facility] Comment on above: Performed By: #### P OCGLUC #### [facility] [address] [address] [address] Sarah Church STREPT SCREENon 11-05-2021 STREP SCREEN A Negative Normal NEGATIVE [facility] Comment on above: Performed By: #### G RASTCX, SSCRN ####[facility] [id number] [address]Dr. Sarah Church CBC AUTO DIFFon 10-16-2021 BASO # 0.1 103/ul Normal 0.0-0.1 [facility] Comment on above: Performed By: #### C BC #### [facility] [address] [place] [address] Dr. Sarah Church Basophils/100 WBC (Bld) 0.8 % Normal 0.2-2.0 [facility] Comment on above: Performed By: #### C BC #### [facility] [address] [place] [address] Dr. Sarah Church EO # 0.3 103/ul Normal 0.0-0.7 [facility] Comment on above: Performed By: #### C BC #### [facility] [address] [place] [address] Dr. Sarah Church Eosinophils/100 WBC (Bld) 3.4 % Normal 0.9-7.0 [facility] Comment on above: Performed By: #### C BC #### [facility] [address] [place] [address] Dr. Sarah Church Erythrocyte distribution width (RBC) [Ratio] 12.6 % Normal 11.0-15.0 [facility] Comment on above: Performed By: #### C BC #### [facility] [address] [place] [address] Dr. Sarah Church Hematocrit (Bld) [Volume fraction] 45.4 % Normal 36.0-48.0 [facility] Comment on above: Performed By: #### C BC #### [facility] [address] [place] [address] Dr. Sarah Church Hemoglobin (Bld) [Mass/Vol] 15.0 g/dL Normal 12.0-16.0 [facility] Comment on above: Performed By: #### C BC #### [facility] [address] [place] [address] Dr. Sarah Church IG # 0.02 10e3/ul Normal 0.00-0.03 [facility] Comment on above: Performed By: #### C BC #### [facility] [address] [place] [address] Dr. Sarah Church IG % 0.2 % Normal 0.0-0.5 [facility] Comment on above: Performed By: #### C BC #### [facility] [address] [place] [address] Dr. Sarah Church LYMPH # 2.7 103/ul Normal 1.2-3.8 [facility] Comment on above: Performed By: #### C BC #### [facility] [address] [place] [address] Dr. Sarah Church Lymphocytes/100 WBC (Bld) 31.0 % Normal 20.5-60.0 [facility] Comment on above: Performed By: #### C BC #### [facility] [address] [place] [address] Dr. Sarah Church MANUAL DIFF REQ NO Normal [facility] Comment on above: Performed By: #### C BC #### [facility] [address] [place] [address] Dr. Sarah Church MCH (RBC) [Entitic mass] 29.3 pg Normal 26.7-34.0 [facility] Comment on above: Performed By: #### C BC #### [facility] [address] [place] [address] Dr. Sarah Chucrh MCHC (RBC) [Mass/Vol] 33.0 g/dL Normal 29.9-35.2 [facility] Comment on above: Performed By: #### C BC #### [facility] [address] [place] [address] Dr. Sarah Church MCV (RBC) [Entitic vol] 88.7 fL Normal 81.0-99.0 [facility] Comment on above: Performed By: #### C BC #### [facility] [address] [address] [address] Sarah Church MONO # 0.6 103/ul Normal 0.3-0.8 [facility] Comment on above: Performed By: #### C BC #### [facility] [address] [address] [address] Sarah Church Monocytes/100 WBC (Bld) 6.5 % Normal 1.7-12.0 [facility] Comment on above: Performed By: #### C BC #### [facility] [address] [address] [address] Sarah Church NEUT # 5.0 103/ul Normal 1.4-6.5 [facility] Comment on above: Performed By: #### C BC #### [facility] [address] [place] [address] Dr. Sarah Church Neutrophils/100 WBC (Bld) 58.1 % Normal 43.0-75.0 [facility] Comment on above: Performed By: #### C BC #### [facility] [address] [place] [address] Dr. Sarah Church Platelet mean volume (Bld) [Entitic vol] 11.0 fL Normal 9.5-13.5 [facility] Comment on above: Performed By: #### C BC #### [facility] [address] [place] [address] Dr. Sarah Church PLT 226 103/ul Normal 150-450 [facility] Comment on above: Performed By: #### C BC #### [facility] [address] [place] [address] Dr. Sarah Church RBC 5.12 106/ul Normal 4.20-5.40 [facility] Comment on above: Performed By: #### C BC #### [facility] [address] [place] [address] Dr. Sarah Church WBC 8.6 103/ul Normal 4.0-11.0 [facility] Comment on above: Performed By: #### C BC #### [facility] [address] [place], [place] [address] Dr. Sarah Church GLYCOHEMOGLOBIN A1Con 2021 ADA RECOMMENDATION SEE BELOW Normal [facility] Comment on above: Result Comment: ADA RECOMMENDED LIMIT 4.0 - 6.0 ADA THERAPEUTIC TARGET < 7.0 ACTION SUGGESTED > 7.0 Performed By: #### A 1C ####[facility] [address] [id number]. Sarah Church Glucose [Mass/Vol] 275 mg/dL Normal [facility] Comment on above: Performed By: #### A 1C ####[facility] [address] [phone] Church HbA1c (Bld) [Mass fraction] 11.2 % Critically high 4.5-6.2 [facility] Comment on above: Performed By: #### A 1C ####[facility] [address] [address]DrCoretta Church LIPID PROFILEon 10-16-2021 CHOL-HDL RATIO NORM SEE BELOW Normal [facility] Comment on above: Result Comment: 3.3 - 4.4 LOW RISK 4.4 - 7.1 AVERAGE RISK 7.1 - 11.0 MODERATE RISK >11.0 HIGH RISK Performed By: #### L IPID, CMP ####[facility] [address] [id number]. Sarah Church Cholesterol [Mass/Vol] 159 mg/dL Normal <=200 [facility] Comment on above: Performed By: #### L IPID, CMP ####[facility] [address] [phone]. Sarah Church Cholesterol in HDL [Mass/Vol] 41 mg/dL Normal 40-60 [facility] Comment on above: Performed By: #### L IPID, CMP ####[facility] [address] [phone]. Sarah Church Cholesterol in LDL [Mass/Vol] 102.6 mg/dL Normal [facility] Comment on above: Performed By: #### L IPID, CMP ####[facility] [address] [phone]. Sarah Church Cholesterol.total/Ch olesterol in HDL [Mass ratio] 3.9 {ratio} Normal [facility] Comment on above: Performed By: #### L IPID, CMP ####[facility] [address] [phone]. Sarah Church HDL NORMAL > or = 60 mg/dl - LOW CARDIOVASCULAR RISK <40 mg/dl - HIGH CARDIOVASCULAR RISK Normal [facility] Comment on above: Performed By: #### L IPID, CMP ####[facility] [address] [phone]. Sarah Church LDL CALC NORMAL SEE BELOW Normal [facility] Comment on above: Result Comment: <100 mg/dl OPTIMAL 100 - 129 mg/dl NEAR OR ABOVE OPTIMAL 130 - 159 mg/dl BORDERLINE HIGH 160 - 189 mg/dl HIGH >190 mg/dl VERY HIGH Performed By: #### L IPID, CMP ####[facility] [address] [phone]. Sarah Church Triglyceride [Mass/Vol] 77 mg/dL Normal <=150 [facility] Comment on above: Performed By: #### L IPID, CMP ####[facility] [address] [phone]. Sarah Church VLDL CALC 15.4 mg/dL Normal [facility] Comment on above: Performed By: #### L IPID, CMP ####[facility] [address] [phone]. Sarah Church MICROALBUMIN, RAND URon 09-30 mALB 2.0 mg/L Normal <=30.0 [facility] Comment on above: Performed By: #### M ALBR #### [facility] [address] [place], [place] [address] Dr. Sarah Church PROF 14(COMP METB)on 022 Albumin [Mass/Vol] 3.5 g/dL Normal 3.4-5.0 [facility] Comment on above: Performed By: #### L IPID, CMP ####[facility] [address] [phone]. Sarah Church Albumin/Globulin [Mass ratio] 0.8 {ratio} Normal [facility] Comment on above: Performed By: #### L IPID, CMP ####[facility] [address] [phone]. Sarah Church ALP [Catalytic activity/Vol] 85 U/L Normal 46-116 [facility] Comment on above: Performed By: #### L IPID, CMP ####[facility] [address] [address]Dr. Sarah Church ALT [Catalytic activity/Vol] 59 U/L Normal 14-59 [facility] Comment on above: Performed By: #### L IPID, CMP ####[facility] [address] [address]Dr. Sarah Church Anion gap [Moles/Vol] 15.1 mmol/L Normal [facility] Comment on above: Performed By: #### L IPID, CMP ####[facility] [address] [address]Dr. Sarah Church AST [Catalytic activity/Vol] 32 U/L Normal 15-37 [facility] Comment on above: Performed By: #### L IPID, CMP ####[facility] [address] [address]Dr. Sarah Ranjit Bilirubin [Mass/Vol] 0.4 mg/dL Normal 0.2-1.0 [facility] Comment on above: Performed By: #### L IPID, CMP ####[facility] [address] [phone]. Sarah Ranjit Calcium [Mass/Vol] 9.0 mg/dL Normal 8.5-10.1 [facility] Comment on above: Performed By: #### L IPID, CMP ####[facility] [address] [address]Dr. Sarah Church Chloride [Moles/Vol] 102 mmol/L Normal 98-107 [facility] Comment on above: Performed By: #### L IPID, CMP ####[facility] [address] [address]Dr. Sarah Church CO2 [Moles/Vol] 30.2 mmol/L Normal 21.0-32.0 [facility] Comment on above: Performed By: #### L IPID, CMP ####[facility] [address] [address]Dr. Sarah Church Creatinine [Mass/Vol] 0.81 mg/dL Normal 0.55-1.02 [facility] Comment on above: Performed By: #### L IPID, CMP ####[facility] [address] [address]Dr. Sarah Church EGFR-AF TURKISH >60 Normal >=60 [facility] Comment on above: Performed By: #### L IPID, CMP ####[facility] [address] [place], [place] [address]Dr. Sarah Church EGFR-NON AF TURKISH >60 Normal >=60 [facility] Comment on above: Performed By: #### L IPID, CMP ####[facility] [address] [place], [place] [address]Dr. Sarah Church Globulin (S) [Mass/Vol] 3.9 g/dL Normal [facility] Comment on above: Performed By: #### L IPID, CMP ####[facility] [address] [place], [place] [address]Dr. Sarah Church Glucose [Mass/Vol] 218 mg/dL Critically high 74-106 T [facility] Comment on above: Performed By: #### L IPID, CMP ####[facility] [address] [address]Dr. Sarah Church Potassium [Moles/Vol] 4.3 mmol/L Normal 3.5-5.1 [facility] Comment on above: Performed By: #### L IPID, CMP ####[facility] [address] [place], [place] [address]Dr. Sarah Church Protein [Mass/Vol] 7.4 g/dL Normal 6.4-8.2 [facility] Comment on above: Performed By: #### L IPID, CMP ####[facility] [address] [place], [place] [address]Xs. Sarah Church Sodium [Moles/Vol] 143 mmol/L Normal 136-145 [facility] Comment on above: Performed By: #### L IPID, CMP ####[facility] [address] [place], [place] [address]Id. Sarah Church Urea nitrogen [Mass/Vol] 14.0 mg/dL Normal 7.0-18.0 [facility] Comment on above: Performed By: #### L IPID, CMP ####[facility] [address] [place], [place] [address]Se. Sarah Church Urea nitrogen/Creatinine [Mass ratio] 17.2 mg/mg Normal [facility] Comment on above: Performed By: #### L IPID, CMP ####[facility] [address] [place], [place] [address]Yi. Sarah Church Vital Signs Date Time Vital Sign Value Performing Clinician Facility 12-13-2024 13:07-0400 Body height 157.48 cm Shayy Dela Cruz MD Work Phone: [facility] 12-13-2024 13:07-0400 Diastolic blood pressure 79 mm[Hg] Shayy Dela Cruz MD Work Phone: [facility] 12-13-2024 13:07-0400 Heart rate 81 /min Shayy Dela Cruz MD Work Phone: [facility] 12-13-2024 13:07-0400 Respiratory rate 18 /min Shayy Dela Cruz MD Work Phone: [facility] 12-13-2024 13:07-0400 Systolic blood pressure 145 mm[Hg] Shayy Dela Cruz MD Work Phone: [facility] 08-23-2024 13:43-0400 Body height 157.48 cm Shayy Dela Cruz MD Work Phone: [facility] 08-23-2024 13:43-0400 Body mass index (BMI) [Ratio] 40 kg/m2 Shayy Dela Cruz MD Work Phone: [facility] 08-23-2024 13:43-0400 Body weight 99.33 kg Shayy Dela Cruz MD Work Phone: [facility] 08-23-2024 13:43-0400 Diastolic blood pressure 77 mm[Hg] Shayy Dela Cruz MD Work Phone: [facility] 08-23-2024 13:43-0400 Heart rate 89 /min Shayy Dela Cruz MD Work Phone: [facility] 08-23-2024 13:43-0400 Systolic blood pressure 169 mm[Hg] Shayy Dela Cruz MD Work Phone: [facility] 08-07-2024 13:09-0400 Body height 157.48 cm Shayy Dela Cruz MD Work Phone: [facility] 08-07-2024 13:09-0400 Diastolic blood pressure 74 mm[Hg] Shayy Dela Cruz MD Work Phone: [facility] 08-07-2024 13:09-0400 Heart rate 85 /min Shayy Dela Cruz MD Work Phone: [facility] 08-07-2024 13:09-0400 Respiratory rate 18 /min Shayy Dela Cruz MD Work Phone: [facility] 08-07-2024 13:09-0400 SaO2% (BldA) [Mass fraction] 96 % Shayy Dela Cruz MD Work Phone: [facility] 08-07-2024 13:09-0400 Systolic blood pressure 142 mm[Hg] Shayy Dela Cruz MD Work Phone: [facility] 06-14-2024 10:21-0500 Body height 157.5 cm Nacho Patiño MD Work Phone: [facility] 06-14-2024 10:21-0500 Body mass index (BMI) [Ratio] 38.59 kg/m2 Nacho Patiño MD Work Phone: [facility] 06-14-2024 10:21-0500 Body temperature 97.3 [degF] Nacho Patiño MD Work Phone: [facility] 06-14-2024 10:21-0500 Body weight 95.71 kg Nacho Patiño MD Work Phone: [facility] 06-14-2024 10:21-0500 Diastolic blood pressure 82 mm[Hg] Nacho Patiño MD Work Phone: [facility] 06-14-2024 10:21-0500 Heart rate 88 /min Nacho Patiño MD Work Phone: [facility] 06-14-2024 10:21-0500 SaO2% (BldA) [Mass fraction] 97 % Nacho Patiño MD Work Phone: [facility] 06-14-2024 10:21-0500 Systolic blood pressure 136 mm[Hg] Nacho Patiño MD Work Phone: [facility] 05-30-2024 10:48-0500 Body height 157.48 cm [facility] 05-30-2024 10:48-0500 Body mass index (BMI) [Ratio] 38.5 kg/m2 [facility] 05-30-2024 10:48-0500 Body weight 95.7 kg [facility] 05-30-2024 10:48-0500 Diastolic blood pressure 77 mm[Hg] [facility] 05-30-2024 10:48-0500 Heart rate 80 /min [facility] 05-30-2024 10:48-0500 Systolic blood pressure 133 mm[Hg] [facility] 02-23-2024 13:23-0400 Body height 157.48 cm [facility] 02-23-2024 13:23-0400 Body mass index (BMI) [Ratio] 38 kg/m2 [facility] 02-23-2024 13:23-0400 Body weight 94.37 kg [facility] 02-23-2024 13:23-0400 Diastolic blood pressure 78 mm[Hg] [facility] 02-23-2024 13:23-0400 Heart rate 75 /min [facility] 02-23-2024 13:23-0400 Respiratory rate 18 /min [facility] 02-23-2024 13:23-0400 SaO2% (BldA) [Mass fraction] 97 % [facility] 02-23-2024 13:23-0400 Systolic blood pressure 170 mm[Hg] [facility] 12-13-2023 13:03-0400 Body height 157.48 cm [facility] 12-13-2023 13:03-0400 Body mass index (BMI) [Ratio] 37.1 kg/m2 [facility] 12-13-2023 13:03-0400 Body weight 92.07 kg [facility] 12-13-2023 13:03-0400 Diastolic blood pressure 86 mm[Hg] [facility] 12-13-2023 13:03-0400 Heart rate 78 /min [facility] 12-13-2023 13:03-0400 Respiratory rate 18 /min [facility] 12-13-2023 13:03-0400 SaO2% (BldA) [Mass fraction] 96 % [facility] 12-13-2023 13:03-0400 Systolic blood pressure 153 mm[Hg] [facility] 12-05-2023 11:24-0400 Body height 157.48 cm [facility] 12-05-2023 11:24-0400 Body mass index (BMI) [Ratio] 36.9 kg/m2 [facility] 12-05-2023 11:24-0400 Body weight 91.62 kg [facility] 12-05-2023 11:24-0400 Diastolic blood pressure 75 mm[Hg] [facility] 12-05-2023 11:24-0400 Heart rate 80 /min [facility] 12-05-2023 11:24-0400 Systolic blood pressure 133 mm[Hg] [facility] 09-29-2023 13:44-0400 Diastolic blood pressure 76 mm[Hg] [facility] 09-29-2023 13:44-0400 Systolic blood pressure 130 mm[Hg] [facility] 09-29-2023 13:19-0400 Body height 157.48 cm [facility] 09-29-2023 13:19-0400 Body mass index (BMI) [Ratio] 38.7 kg/m2 [facility] 09-29-2023 13:19-0400 Body weight 95.9 kg [facility] 09-29-2023 13:19-0400 Heart rate 89 /min [facility] 09-29-2023 13:19-0400 Respiratory rate 18 /min [facility] 09-29-2023 13:19-0400 SaO2% (BldA) [Mass fraction] 98 % [facility] 09-06-2023 11:08-0400 Body height 157.48 cm [facility] 09-06-2023 11:08-0400 Body mass index (BMI) [Ratio] 37.6 kg/m2 [facility] 09-06-2023 11:08-0400 Body weight 93.44 kg [facility] 09-06-2023 11:08-0400 Diastolic blood pressure 72 mm[Hg] [facility] 09-06-2023 11:08-0400 Heart rate 89 /min [facility] 09-06-2023 11:08-0400 Systolic blood pressure 127 mm[Hg] [facility] 08-24-2023 15:08-0400 Body height 157.48 cm [facility] 08-24-2023 15:08-0400 Body mass index (BMI) [Ratio] 37.5 kg/m2 [facility] 08-24-2023 15:08-0400 Body weight 93.21 kg [facility] 08-19-2023 10:43-0400 Body height 157.48 cm MD Shayy Dela Cruz Work Phone: [facility] 08-19-2023 10:43-0400 Body mass index (BMI) [Ratio] 37.5 kg/m2 MD Shayy Dela Cruz Work Phone: [facility] 08-19-2023 10:43-0400 Body weight 93.09 kg MD Shayy Dela Cruz Work Phone: [facility] 08-19-2023 10:43-0400 Diastolic blood pressure 79 mm[Hg] MD Shayy Dela Cruz Work Phone: [facility] 08-19-2023 10:43-0400 Heart rate 83 /min MD Shayy Dela Cruz Work Phone: [facility] 08-19-2023 10:43-0400 Systolic blood pressure 135 mm[Hg] MD Shayy Dela Cruz Work Phone: [facility] 07-28-2023 14:22-0400 Body height 157.48 cm MD Shayy Dela Cruz Work Phone: [facility] 07-28-2023 14:22-0400 Body mass index (BMI) [Ratio] 37.6 kg/m2 MD Shayy Dela Cruz Work Phone: [facility] 07-28-2023 14:22-0400 Body weight 93.44 kg MD Shayy Dela Cruz Work Phone: [facility] 07-28-2023 14:22-0400 Diastolic blood pressure 84 mm[Hg] MD Shayy Dela Cruz Work Phone: [facility] 07-28-2023 14:22-0400 Heart rate 83 /min MD Shayy Dela Cruz Work Phone: [facility] 07-28-2023 14:22-0400 Respiratory rate 18 /min MD Shayy Dela Cruz Work Phone: [facility] 07-28-2023 14:22-0400 SaO2% (BldA) [Mass fraction] 97 % MD Shayy Dela Cruz Work Phone: [facility] 07-28-2023 14:22-0400 Systolic blood pressure 140 mm[Hg] MD Shayy Dela Cruz Work Phone: [facility] 07-19-2023 10:57-0400 Body height 157.48 cm MD Shayy Dela Cruz Work Phone: [facility] 07-19-2023 10:57-0400 Body mass index (BMI) [Ratio] 37.1 kg/m2 MD Shayy Dela Cruz Work Phone: [facility] 07-19-2023 10:57-0400 Body weight 92.07 kg MD Shayy Dela Cruz Work Phone: [facility] 07-19-2023 10:57-0400 Diastolic blood pressure 68 mm[Hg] MD Shayy Dela Cruz Work Phone: [facility] 07-19-2023 10:57-0400 Heart rate 89 /min MD Shayy Dela Cruz Work Phone: [facility] 07-19-2023 10:57-0400 Systolic blood pressure 132 mm[Hg] MD Shayy Dela Cruz Work Phone: [facility] 05-25-2023 11:00-0500 Body height 157.48 cm Cathie Scally Other [facility] 05-25-2023 11:00-0500 Body mass index (BMI) [Ratio] 37.23 kg/m2 Cathie Scally Other [facility] [employer] Other 05-25-2023 11:00-0500 Body weight 92.35 kg Cathie Scally Other [facility] 05-25-2023 11:00-0500 Diastolic blood pressure 71 mm[Hg] Cathie Scally Other [facility] 05-25-2023 11:00-0500 Respiratory rate 18 /min Cathie Scally Other [facility] [employer] Other 05-25-2023 11:00-0500 SaO2% (BldA) [Mass fraction] 95 % Cathie Scally Other [facility] [employer] Other 05-25-2023 11:00-0500 Systolic blood pressure 139 mm[Hg] Cathie Scally Other [facility] 04-15-2023 11:00-0500 Body height 157.48 cm Shayy Dela Cruz Other [facility] 04-15-2023 11:00-0500 Body mass index (BMI) [Ratio] 37.49 kg/m2 Shayy Dela Cruz Other [facility] Other 04-15-2023 11:00-0500 Body weight 92.99 kg Shayy Dela Cruz Other [facility] Other 04-15-2023 11:00-0500 Body weight 92.98 kg MD Shayy Dela Cruz Work Phone: [facility] 04-15-2023 11:00-0500 Diastolic blood pressure 84 mm[Hg] Shayy Dela Cruz Other [facility] 04-15-2023 11:00-0500 Systolic blood pressure 142 mm[Hg] Shayy Dela Cruz Other [facility] 06-22-2022 13:30-0500 Body height 157.48 cm Shayy Dela Cruz Other We Other 06-22-2022 13:30-0500 Body mass index (BMI) [Ratio] 36.94 kg/m2 Shayy Dela Cruz Other [facility] Other 06-22-2022 13:30-0500 Body weight 91.63 kg Shayy Dela Cruz Other We Other 06-22-2022 13:30-0500 Diastolic blood pressure 74 mm[Hg] Shayy Dela Cruz Other We Other 06-22-2022 13:30-0500 SaO2% (BldA) [Mass fraction] 97 % Shayy Dela Cruz Other We Other 06-22-2022 13:30-0500 Systolic blood pressure 112 mm[Hg] Shayy Dela Cruz Other [facility] [employer] Other Encounters Encounter Date Encounter Type Care Provider Facility Start: 12-13-2024 End: 12-13-2024 ambulatory Shayy Dela Cruz MD Work Phone: [facility] Work Phone: Start: 12-13-2024 End: 12-13-2024 Patient encounter procedure Cathie Vargas [facility] Work Phone: Start: 08-23-2024 End: 08-23-2024 ambulatory Shayy Dela Cruz MD Work Phone: [facility] Work Phone: Start: 08-23-2024 End: 08-23-2024 Patient encounter procedure Shayy Dela Cruz MD Work Phone: [facility] Work Phone: Start: 08-20-2024 Non-patient / Non-visit Shayy Dela Cruz MD Work Phone: [facility] Work Phone: Start: 08-07-2024 End: 08-07-2024 ambulatory Shayy Dela Cruz MD Work Phone: [facility] Work Phone: Start: 08-07-2024 End: 08-07-2024 Patient encounter procedure Shayy Dela Cruz MD Work Phone: [facility] Work Phone: Start: 07-19-2024 Non-patient / Non-visit Shayy Dela Cruz MD Work Phone: [facility] Work Phone: Start: 07-05-2024 End: 07-05-2024 ambulatory Shayy Dela Cruz MD Work Phone: [facility] Work Phone: Start: 07-05-2024 End: 07-05-2024 Departed Referred Shayy Dela Cruz MD Work Phone: [facility] Start: 06-21-2024 Non-patient / Non-visit Shayy Dela Cruz MD Work Phone: [facility] Work Phone: Start: 06-20-2024 Non-patient / Non-visit Shayy Dela Cruz MD Work Phone: [facility] Work Phone: Start: 06-19-2024 End: 06-19-2024 ambulatory [facility] Start: 06-19-2024 Non-patient / Non-visit Shayy Dela Cruz MD Work Phone: [facility] Work Phone: Start: 06-14-2024 End: 06-14-2024 Office outpatient new 30 minutes Nacho Patiño MD Work Phone: [facility] Comment on above: 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[facility]) (Primary Dx) Start: 06-14-2024 End: 06-14-2024 ambulatory [facility] Start: 06-13-2024 Non-patient / Non-visit Shayy Dela Cruz MD Work Phone: [facility] Work Phone: Start: 06-12-2024 Non-patient / Non-visit Shayy Dela Cruz MD Work Phone: [facility] Work Phone: Start: 06-07-2024 Non-patient / Non-visit Shayy Dela Cruz MD Work Phone: [facility] Work Phone: Start: 06-01-2024 Non-patient / Non-visit Shayy Dela Cruz MD Work Phone: [facility] Work Phone: Start: 05-30-2024 Patient encounter status Shayy Dela Cruz MD Work Phone: [facility] Start: 05-30-2024 End: 05-30-2024 ambulatory [facility] Work Phone: Start: 05-30-2024 End: 05-30-2024 Encounter for general adult medical examination without abnormal findings Shayy Dela Cruz MD Work Phone: [facility] Start: 05-30-2024 End: 05-30-2024 Patient encounter procedure [facility] Work Phone: Start: 05-24-2024 End: 05-24-2024 ambulatory [facility] Work Phone: Start: 05-24-2024 End: 05-24-2024 Patient encounter procedure [facility] Work Phone: Start: 05-16-2024 Non-patient / Non-visit [facility] Work Phone: Start: 05-07-2024 Non-patient / Non-visit [facility] Work Phone: Start: 04-19-2024 End: 04-19-2024 Patient encounter procedure [facility] Work Phone: Start: 02-28-2024 Non-patient / Non-visit [facility] Work Phone: Start: 02-23-2024 End: 02-23-2024 ambulatory Cathie Vargas [facility] Work Phone: Start: 02-23-2024 End: 02-23-2024 Patient encounter procedure [employer] Cathie Vargas Work Phone: [facility] Work Phone: Start: 02-23-2024 End: 02-23-2024 ambulatory [facility] Work Phone: Start: 02-23-2024 End: 02-23-2024 Patient encounter procedure [facility] Work Phone: Start: 01-17-2024 End: 01-17-2024 ambulatory [facility] Work Phone: Start: 01-17-2024 End: 01-17-2024 Patient encounter procedure [facility] Work Phone: Start: 12-13-2023 End: 12-13-2023 ambulatory [facility] Work Phone: Start: 12-13-2023 End: 12-13-2023 Patient encounter procedure [facility] Work Phone: Start: 12-05-2023 End: 12-05-2023 ambulatory [facility] Work Phone: Start: 12-05-2023 End: 12-05-2023 Patient encounter procedure [facility] Work Phone: Start: 11-07-2023 End: 11-07-2023 ambulatory [facility] Work Phone: Start: 11-07-2023 End: 11-07-2023 Patient encounter procedure [facility] Work Phone: Start: 09-29-2023 End: 09-29-2023 ambulatory [facility] Work Phone: Start: 09-29-2023 End: 09-29-2023 Patient encounter procedure [facility] Work Phone: Start: 09-06-2023 End: 09-06-2023 ambulatory [facility] Work Phone: Start: 09-06-2023 End: 09-06-2023 Patient encounter procedure [facility] Work Phone: Start: 08-24-2023 End: 08-24-2023 ambulatory [facility] Work Phone: Start: 08-24-2023 End: 08-24-2023 Patient encounter procedure [facility] Work Phone: Start: 08-19-2023 End: 08-19-2023 ambulatory MD Shayy Dela Cruz Work Phone: [facility] Work Phone: Start: 08-19-2023 End: 08-19-2023 Patient encounter procedure MD Shayy Dela Cruz Work Phone: [facility] Work Phone: Start: 07-28-2023 End: 07-28-2023 ambulatory MD Shayy Dela Cruz Work Phone: [facility] Work Phone: Start: 07-28-2023 End: 07-28-2023 Patient encounter procedure MD Shayy Dela Cruz Work Phone: [facility] Work Phone: Start: 07-19-2023 End: 07-19-2023 ambulatory MD Shayy Dela Cruz Work Phone: [facility] Work Phone: Start: 07-19-2023 End: 07-19-2023 Patient encounter procedure MD Shayy Dela Cruz Work Phone: [facility] Work Phone: Start: 07-12-2023 Non-patient / Non-visit MD Qi Dela Cruz Work Phone: [facility] Work Phone: Start: 06-14-2023 End: 06-14-2023 ambulatory MD Shayy Dela Cruz Work Phone: [facility] Work Phone: Start: 06-14-2023 End: 06-14-2023 Patient encounter procedure MD Shayy Dela Cruz Work Phone: [facility] Work Phone: Start: 06-06-2023 End: 06-06-2023 ambulatory Shayy Dela Cruz Other We Other Start: 06-06-2023 Telephone encounter Shayy Dela Cruz [facility] Start: 05-25-2023 FQHC visit new patient Cathie Sheikh y [facility] Start: 05-25-2023 End: 05-25-2023 ambulatory MD Shayy Dela Cruz Work Phone: We Other Start: 05-25-2023 End: 05-25-2023 Discharged Recurring MD [facility] Work Phone: Start: 05-25-2023 Registered Recurring MD Shayy Dela Cruz Work Phone: [facility] Work Phone: Start: 05-25-2023 End: 05-25-2023 Patient encounter procedure MD Shayy Dela Cruz Work Phone: [facility] Start: 05-12-2023 End: 05-12-2023 ambulatory Shayy Dela Cruz Other We Other Start: 05-12-2023 Telephone encounter Shayy Dela Cruz [facility] Start: 05-10-2023 End: 05-10-2023 ambulatory Shayy Dela Cruz Other We Other Start: 05-10-2023 Telephone encounter Shayy Dela Cruz [facility] Start: 04-22-2023 End: 04-22-2023 ambulatory Shayy Dela Cruz Other We Other Start: 04-22-2023 Telephone encounter Shayy Dela Cruz [facility] Start: 04-20-2023 End: 04-20-2023 ambulatory Lynne Hernandez Other We Other Start: 04-20-2023 Telephone encounter Lynne Hernandez [facility] Start: 04-18-2023 End: 04-18-2023 ambulatory Lynne Hernandez Other We Other Start: 04-18-2023 Telephone encounter Lynne Hernandez [facility] Start: 04-15-2023 End: 04-15-2023 ambulatory Shayy Dela Cruz Other We Other Start: 04-15-2023 Office outpatient vi sit 15 minutes Shayy Dela Cruz [facility] Start: 04-15-2023 End: 04-15-2023 Patient encounter procedure MD Shayy Dela Cruz Work Phone: [facility] Work Phone: Start: 04-06-2023 End: 04-06-2023 ambulatory Shayy Dela Cruz Other We Other Start: 04-06-2023 Telephone encounter Shayy Dela Cruz [facility] Start: 02-25-2023 End: 02-25-2023 ambulatory Shayy Dela Cruz Other We Other Start: 02-25-2023 Telephone encounter Shayy Dela Cruz [facility] Start: 10-29-2022 End: 10-29-2022 ambulatory Shayy Dlea Cruz Other We Other Start: 10-29-2022 Telephone encounter Shayy Dela Cruz [facility] Start: 08-27-2022 End: 08-28-[address] SHAYY DELA CRUZ Facility:[facility] Start: 07-20-2022 End: 07-21-[address] SHAYY DELA CRUZ Facility:[facility] Start: 07-19-2022 End: 07-19-2022 ambulatory Shayy Dela Cruz Other We Other Start: 07-19-2022 Telephone encounter Shayy Dela Cruz [facility] Start: 07-12-2022 End: 07-13-[address] SHAYY DELA CRUZ Facility:[facility] Start: 07-05-2022 End: 07-05-2022 ambulatory Shayy Dela Cruz Other We Other Start: 07-05-2022 Telephone encounter Shayy Dela Cruz [facility] Start: 06-28-2022 End: 06-28-2022 ambulatory Shayy Dela Cruz Other We Other Start: 06-28-2022 Telephone encounter Shayy Dela Cruz [facility] Start: 06-22-2022 End: 06-22-2022 ambulatory Shayy Dela Cruz Other We Other Start: 06-22-2022 Office outpatient vi sit 15 minutes Shayy Dela Cruz [facility] Start: 05-27-2022 End: 05-27-2022 ambulatory Shayy Dela Cruz Other We Other Start: 05-27-2022 Telephone encounter Shayy Dela Cruz [facility] Start: 05-19-2022 End: 05-20-[address] SHAYY DELA CRUZ Facility:[facility] Start: 04-14-2022 End: 04-15-2022 ambulatory JORDYN BRUCE Facility:[facility] Start: 04-06-2022 End: 04-07-[address] SHAYY DELA CRUZ Facility:[facility] Start: 01-11-2022 End: 01-12-[address] SHAYY DELA CRUZ Facility:[facility] Start: 11-05-2021 End: 11-05-[address] SHIRIN Hitchcock Facility:[facility] Start: 10-16-2021 End: 10-17-[address] HSAYY DELA CRUZ Facility:[facility] Start: 05-10-2017 End: 05-11-2017 Ambulatory DEFAULT PHYSICIAN Facility:[facility] Start: 05-05-2017 End: 05-06-2017 Ambulatory DEFAULT PHYSICIAN Facility:[facility] Procedures Date Procedure Procedure Detail Performing Clinician History of amputatio n of lesser toe H/O amputation of lesser toe Shayy Dela Cruz MD Work Phone: Comment on above: left foot Plan of Treatment Date Care Activity Detail Author Start: 01-01-2024 Influenza vaccination Influenza Vaccine [facility] Start: 01-15-2022 Administration of varicella zoster vaccine Zoster (Shingles) Vaccine (1 of 2) [facility] Start: 01-15-1993 Screening for malignant neoplasm of cervix Pap Smear [facility] Start: 01-15-1991 DTaP,Tdap and Td Vaccines (1 - Tdap) DTaP,Tdap and Td Vaccines (1 - Tdap) [facility] Start: 01-15-1990 Adult BMI Screening Adult BMI Screening [facility] Start: 1984 Depression Screening Depression Screening [facility] Start: 1984 Tobacco Screening Tobacco Screening [facility] Comprehensive metabo lic 2000 panel - Serum or Plasma [facility] MG Breast - bilatera l Screening [facility] Immunizations Immunization Date Immunization Notes Care Provider Fa cility 02-01-2022 influenza virus vaccine, split virus (incl. purified surface antigen) Shayy Dela Cruz Other We Other 02-01-2022 influenza virus vaccine, unspecified formulation MD Shayy Dela Cruz Work Phone: [facility] Payers Date Payer Category Payer Medicare HMO [employer] [id number] 2017 Medicaid [place]ICA[place] [id number] 2017 Unknown [id number] 1972 Unknown [id number] 1972 Unknown [id number] 1972 Unknown [id number] 1972 Unknown [id number] 1972 Unknown [id number] [id number] 1972 Unknown [id number] 1972 Unknown [id number] [id number] 1972 Unknown [id number] 1972 Unknown [id number] [id number] 1972 Unknown [id number] 1957 Medicaid [id number] 1957 Medicare [id number] Medicare Medicare [id number] Unknown Social History Date Type Detail Facility Unknown if ever smoked [facility] [employer] Other Start: 06-14-2024 Sex Assigned At [facility] [employer] Other Start: 1970 Sex Assigned At Female [facility] Start: 07-19-2023 End: 05-25-2024 Tobacco smoking status NHIS Never smoked tobacco (finding) [facility] Start: 05-24-2024 End: 08-23-2024 Sex Female (finding) [facility] Start: 06-14-2024 Tobacco use and exposure Smokeless tobacco non-user [facility] Start: 06-14-2024 Alcoholic beverage intake Lifetime non-drinker (finding) [facility] Start: 06-14-2024 History of Social function [facility] Within the past 12 months we worried whether our food would run out before we got money to buy more. Never [facility] [employer] [facility] Start: 1970 Sex assigned at Not on file [facility] NEGATED: Highlighted row [facility] Medical Equipment Procedure Code Equipment Code [...] scheduled for 06/21/[address] Bruce at [facility]. She had EKG, CXR, and labs [...] scheduled for 06/21/[address] Bruce at [facility]. She had EKG, CXR, and labs [...] Active Problem List Diagnosis Coronary arteriosclerosis in [place] artery Old myocardial infarction Sinusitis Type 1 [...] is normal sized. (more content not included)... [facility] 06-14-2024 Evaluation + Plan note Associated Problem(s): Gangrene of toe of left foot (CMS-HCC) Osteomyelitis and gangrenous changes of the left second and third and may be the fourth toe.She has normal PVR with toe pressure and normal IHEU and toe pressure index.I discussed with her that there is no VASc intervention needed at this time. She needs his aggressive blood sugar control IV antibiotics likely toe amputation by podiatry and risk factors modification. [facility] 06-14-2024 Miscellaneous Notes Associated Problem(s): Gangrene of toe of left foot ([facility]-HCC) Osteomyelitis and gangrenous changes of the [...] risk factors modification. documented in this encounter [facility] 06-14-2024 History of Presen t [...] Past Medical History: Diagnosis Date Diabetes mellitus ([facility]) Past Surgical History: No past surgical history [...] Interpersonal Safety: Unknown (06/23/2023) Received from [facility] Fear of [...] visit: Gangrene of toe of left foot ([facility]) Nacho Patiño MD, SELMA, RPVI, FSVS, FACS [facility] [employer] This note was created with the assistance of a speech recognition program. While intending to generate a timely document that accurately reflects the content of the visit, no guarantee can be provided that every grammatical or spelling mistake has been or will be identified or corrected. Thank you for your understanding. documented in this encounter [facility] 05-30-2024 Evaluation note Diagnosis Onset Date Resolution Colon cancer screening acute [facility] 2024 10:42am Long-term insulin use acute Nic [...] 1:05pm Vitamin D deficiency acute 2024 1:05pm [facility] Work Phone: 1(654) 456-548801-23-2025 Evaluation note* Diagnosis Onset Date Resolution Status Admit Date Type 2 diabetes mellitus acute May 24, 2024 12:54pm Colon cancer screening acute Ja 2024 10:42am Long-term insulin use acute May 10:42am Type 2 diabetes mellitus acute May 30, 2024 10:42am Wellness examination acute Geovanny 2024 10:42am BMI 37.0-37.9, adult acute Apri 2024 1:05pm Dietary counseling and surveillance acute August 07, 2024 1:05pm History of myocardial infarction acu te August 07, 2024 1:05pm HTN (hypertension) acute August 07, 2024 1:05pm Hyperlipidemia acute August 07, 2024 1:05pm Long-term insulin use acute Jul 1:05pm Type 2 diabetes mellitus acute August 07, 2024 1:05pm Vitamin D deficiency acute 2024 1:05pm [facility] Work Phone: 1(796) 235-403712-19-2024 Evaluation note* Diagnosis Onset Date Resolution Status Admit Date Type 2 diabetes mellitus acute April 19, 2024 2:03pm [facility] Work Phone: 1([phone]) 718-142112-19-2024 Evaluation note* Diagnosis Onset Date Resolution Status Admit Date Type 2 diabetes mellitus acute April 19, 2024 2:03pm Type 2 diabetes mellitus acute May 24, 2024 12:54pm [facility] Work Phone: 1(353) 704-727012-19-2024 Evaluation note* Diagnosis Onset Date Resolution Status Admit Date Type 2 diabetes mellitus acute April 19, 2024 2:03pm Type 2 diabetes mellitus acute May 24, 2024 12:54pm Colon cancer screening acute Chente 2024 10:42am Long-term insulin use acute May 10:42am Type 2 diabetes mellitus acute May 30, 2024 10:42am Wellness examination acute Geovanny 2024 10:42am [facility] Work Phone: 1(360) 702-738902-05-2024 Evaluation note* Encounter Date Diagnosis Assessment Notes Treatment Notes Treatment Clinical Notes Jun, Controlled type 2 diabetes mellitus with hyperglycemia, unspecified whether half-way insulin use (ICD-10 - E11.65) We Other 01-24-2024 Evaluation note* Encounter Date Diagnosis [...] Instructions material was published to portal May, jail current use of insulin (ICD-10 - Z79.4) May, BMI 37.0-37.9, adult (ICD-10 - Z68.37) May, Other 05/25/2023 The patient was given a Dexcom G7 sensor sample and an [employer] [place]. She was taught how to use the [...] educating the patient by Nguyễn Norwood RN, [facility]. We Other 12-15-2023 Evaluation note* Encounter Date Diagnosis Assessment Notes Treatment Notes Treatment Clinical Notes Apr, Type 2 diabetes mellitus with hyperglycemia (ICD-10 - E11.65) Rx handwritten for diabetic shoes. Pt agrees to referral to specialty clinic. Continue present meds and discussed healthy diet in meantime. 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 She declines and will continue meds, followup in 3 months, and recheck labs at that time. She is eating more of a keto diet and is certain that is helping her A1C improve. Jun, Screening mammogram for breast cancer (ICD-10 - Z12.31) Zoila will call for an appt We Other 12-15-2022 NotePROCEDURE: XR FOOT LT MIN [...] degenerative joint disease. Electronically authenticated by: NARINDER Nassar: 2022-04-15 06:08[facility]09-12-2022 NotePROCEDURE: XR TOES RT MIN 2 V HISTORY: Pain of toe of right foot ; first toe pain following injury COMPARISON: None. FINDINGS: BONES:No fracture, acute abnormality, or significant arthropathy. SOFT TISSUES:No visible soft tissue swelling. EFFUSION:None visible. OTHER: Negative. IMPRESSION: 1. No acute bone abnormality. 2. Mild degenerative joint disease. Electronically authenticated by: NARINDER LAN Date: 2022-01-11 18:48[facility]+Reason for visit Narrative* Chief Complaint 3 Month Follow Up Referral Dr. Negro LAGUERRE download [facility] Work Phone: chief complaint+Reason for visit Narrative* Chief Complaint 3 Month Follow Up Referral Dr. Negro LAGUERRE download Reason for Visit Type 2 diabetes holli [facility] Work Phone: chief complaint+Reason for visit Narrative* Chief Complaint Referral Dr. Negro LAGUERRE download 3 Month Check up Reason for Visit Type 2 diabetes holli [facility] Work Phone: chief complaint+Reason for visit Narrative* Chief Complaint Referral Dr. Negro LAGUERRE download 3 Month Check up amrik reader Reason for Visit Type 2 diabetes holli itus Right wrist fracture Type 2 diabetes mellitus [facility] Work Phone: Chigx complaint+Reason for visit Narrative* Chief Complaint Referral Dr. Negro LAGUERRE download 3 Month Check up amrik reader Gastroesophageal reflux disease (GERD) Reason for Visit Type 2 diabetes holli itus Right wrist fracture Type 2 diabetes mellitus BMI 37.0-37.9, adult Dietary counseling and surveillance History of myocardial infarction HTN (hypertension) Hyperlipidemia Long-term insulin use Type 2 diabetes mellitus Vitamin D deficiency Gastroesophageal reflux disease [facility] Work Phone: Evaluation noteNo InformationNort [employer] Other Evaluation noteNo assessment information available [facility] Work Phone: Evaluation note* Diagnosis Onset Date Resolution Status Type 2 diabetes mellitus acu te [facility] Work Phone: Evaluation note* Diagnosis Onset Date Resolution Status Type 2 diabetes mellitus acu te Right wrist fracture acute Type 2 diabetes mellitus acu te [facility] Work Phone: evaluation note* Diagnosis Onset Date Resolution Status Type 2 diabetes mellitus acu te Right wrist fracture acute Type 2 diabetes mellitus acu te BMI 37.0-37.9, adult acute Dietary counseling and surveillance acute History of myocardial infarction acute HTN (hypertension) acute Hyperlipidemia acute Long-term insulin use acute Type 2 diabetes mellitus acu te Vitamin D deficiency acute Gastroesophageal reflux disease acute [facility] Work Phone: evaluation note* Diagnosis Onset [...] acute Type 2 diabetes mellitus acu te [facility] Work Phone: evaluation note* Diagnosis Onset [...] acute Type 2 diabetes mellitus acu te [facility] Work Phone: evaluation note* Diagnosis Onset [...] acute Type 2 diabetes mellitus acu te [facility] Work Phone: Evaluation note* Diagnosis Onset [...] te Screening mammogram for breast cancer acute [facility] Work Phone: Evaluation note* Diagnosis Onset [...] mellitus acu te Vitamin D deficiency acute [facility] Work Phone: evaluation note* Diagnosis Onset [...] acute Type 2 diabetes mellitus acu te [facility] Work Phone: Evaluation note* Diagnosis Onset [...] mellitus acu te Vitamin D deficiency acute [facility] Work Phone: evaluation note* Diagnosis Gangrene of toe of left foot ([facility])- Primary [facility] Diagnosis Onset Date Resolution Status Admit Date BMI 37.0-37.9, adult acute 2024 12:40pm Dietary counseling and surveillance acute December 13 12:40pm History of myocardial infarction acu te December 13, 2024 12:40pm HTN (hypertension) acute December 13, 2024 12:40pm Hyperlipidemia acute November 12:40pm Long-term insulin use acute Nov 12:40pm Type 2 diabetes mellitus acute December 13, 2024 12:40pm Vitamin D deficiency acute 2024 12:40pm [facility] Work Phone: Hisnxdu general Narrative - Reported* Type Description Date Medical History Herpes labialis Medical History Candidiasis of mouth Medical History Type 2 diabetes holli itus with diabetic polyneuropathy, unspecified whether half-way insulin use Medical History Controlled type 2 di abetes mellitus with hyperglycemia, unspecified whether half-way insulin use Medical History Obesity Medical History Dyslipidemia Medical History CAD in [place] artery Medical History Asthma, intermittent Medical History [...] History appendectomy Surgical History 7 stents 1999 We Other Hiskuvs general Narrative - Reported* Type Description Date Medical History Herpes labialis Medical History Candidiasis of mouth Medical History Type 2 diabetes holli itus with diabetic polyneuropathy, unspecified whether 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 Medical History Controlled type 2 di abetes mellitus with hyperglycemia, unspecified whether 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 Medical History Obesity Medical History Dyslipidemia Medical History CAD in [place] artery Medical History Asthma, intermittent Medical History [...] stents 1999 Hospitalization History see surgical history We Other Hisawzr general Narrative - Reported* Type Description Date Medical History Herpes labialis Medical History Candidiasis of mouth Medical History Type 2 diabetes holli itus with diabetic polyneuropathy, unspecified whether 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 Medical History Controlled type 2 di abetes mellitus with hyperglycemia, unspecified whether 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 Medical History Obesity Medical History Dyslipidemia Medical History CAD in [place] artery Medical History Asthma, intermittent Medical History [...] coronary 1999 Hospitalization History see surgical history We Other InstructionsNot on filedocumented in this encounter [facility] CenterItibia TechnologiesBrecksville [facility] / [facility] HospitalReason for referral (narrative)No reason for referral information availablePark[facility] Work Phone: Summary Purpose Family History Relationship Condition Age [...] Name Jose De Jesus Referring Provider Specialty [facility] Referred Organization [facility] Referred Provider Marcia Mendes Referred Address [address] [place] [address],[address],[place], [place],[address] Referred Provider Specialty Nurse Huey saldaña Referral Priority Routine General Notes Heather Jenkins 12 / 01:25:59 PM >received today, notes locked, insurance [...] Date Type 2 diabetes mellitus May 24 025 [...] 2024 1:0 5pm Chief Complaint Admit Date 13 week-DMN f/u-METER December 13, 2024 12:40pm Reason for Visit Admit Date BMI 37.0-37.9, adult December 13, 2024 1 2:40pm Dietary counseling and surveillance Augu st 2024 12:40pm History of myocardial infarction December 13, 2024 12:40pm HTN (hypertension) December 13, 2024 12 :40pm Hyperlipidemia December 13, 2024 12 :40pm Long-term insulin use December 13, 2024 12:40pm Type 2 diabetes mellitus December 13 12:40pm Vitamin D deficiency December 13, 2024 1 2:40pm Additional Source Comments INFORMATION SOURCE (unrecogn ized section and content) DATE CREATED AUTHOR 10/25/2017 [facility] DATE CREATED AUTHOR AUTHOR'S ORGANIZ ATION 09/03/2022 [facility] DATE CREATED AUTHOR AUTHOR'S ORGANIZ ATION 06/16/2024 [facility] DATE CREATED AUTHOR AUTHOR'S ORGANIZ ATION 06/30/2024 [facility] DATE CREATED AUTHOR AUTHOR'S ORGANIZ ATION 07/13/2024 [facility] REASON FOR VISIT [...] 2024 End: May 24, 2024 Team Status: Active Member Role Status [...] 2023 End: August 24, 2023 Brittani Collier , RN Attending Provider Active Start: August 24, 2023 End: August 24, 2023 Cathie Vargas , [employer] Active Star t: August 24, 2023 End: August 24, 2023 Team Status: Inactive Member Role Status Susan Dela Cruz MD Primary Care Provide r, Attending Provider Active Start: September 06, 2023 End: September 06, 2023 Team Status: Inactive Member Role Status Dates Shayy Dela Cruz MD Primary Care Provider Active Start: September 29, 2023 End: September 29, 2023 Cathie Vargas , [employer] Attending Provider Active Start: September 29, 2023 End: September 29, 2023 Team Status: Inactive Member Role Status Susan Dela Cruz MD Primary Care Provider Active Start: November 07, 2023 End: November 07, 2023 Curtis Norwood RN Attending Provider Active St art: November 07, 2023 End: November 07, 2023 Cathie Vargas , [employer] Active Star t: November 07, 2023 End: [...] End: July 28, 2023 Cathie Vargas , [employer] Attending Provider Active Start: July 28, 2023 End: July 28, 2023 Team Status: Inactive Member Role Status Susan Dela Cruz MD Attending Provider Active St art: April 15, 2023 End: April 15, 2023 Team Status: Inactive Member Role Status Dates Cathie Vargas , [employer] Attending Provider Active Start: May 25, 2023 [...] Status: Inactive Member Role Status Susan Vargas APRN Attending Provider Active Start: February 23, 2024 End: February 23, 2024 Team Status: Active Member Role Status Susan Drummond CMA Attending Provider Active Start: February 28, 2024 Team Status: Inactive Member Role Status Susan Dela Cruz MD Primary Care Provider Active Start: December 13, 2024 End: December 13, 2024 Cathie Vargas APRN Attending Provider Active Start: December 13, 2024 End: December 13, 2024 Goals (unrecognized section and content) Goals [...] BE BASED ON THE PRIMARY CLINICAL RECORDS. [facility] [employer] [facility]. provides no warranty or guarantee of the accuracy or completeness of information in this document.
== END 2024-12-27 10:35 | disposition home or self-care (01) ==
LOC: RAD 10:36
PROVIDERS: PCP Family Medicine; Visit Provider Podiatrist Foot & Ankle Surgery
DX: M79.672 Pain in left foot (principal); M14.672 Charcot's joint, left ankle and foot; M19.072 Primary osteoarthritis, left ankle and foot
CPT/HCPCS: 73630

== ENCOUNTER 2025-01-24 10:15 | Outpatient (OUT) | payer MEDICARE, MEDICAID, SELFPAY ==
--- OUTSIDE RECORDS SUMMARY | 2023-10-03 06:40 | XMS_ITS ---
Author Organization [facility] Address [address] [place] [address] Care Team Providers Care Valve Machine Operator Name Role Phone Shayy Ly M.D. Primary Care Provider Unavail Narinder [facility] [phone] REASON FOR VISIT Right distal ulna fx Encounters Encounter Location Date Provider Diagnosis [facility] [address] [place] [address] [place] [address] 10/03/2023 Narinder Alvarez Plan Of Treatment No Information Progress Notes * LAUREN DINHEDOB:1970 (55 yo F)Acc No.[id number]:10/03/2023 Patient: OCLETTE MCKEON Provider: Diogenes Alvarez MD :1970 A ge:53 Y S ex:Female Date:10/03/2023 Address:[facility] [address] [place], [id number] Pcp:Shayy Ly M.D. Subjective: * Chief Complaints: * 1 . Right distal ulna fx. * Medical History: Objective: * Vitals: Assessment: Plan: * Treatment: Forms: * Images: * Electronic signature of Jr Alvarez MD on 01/24/2025 at 10:19 AM EDT Sign off status: Pending * Provider: Diogenes Alvarez MD Date: 10/03/2023 Generated for Miki blanton/Krista/eTransmitting on: 01/24/2025 10:19 AM EDT
--- OUTSIDE RECORDS SUMMARY | 2025-01-24 10:19 | XMS_ITS | Clinical Summary ---
Author Organization [facility] Address [address] [place] [address] Care Team Providers Care Onion Topper Name Role Phone Shayy Ly MD Primary Care Provider [phone] Allergies Active Allergy Reactions Criticality Noted Date [...] UNITS UNDER SKIN TWICE A DAY Active budesonide-formoter oL (Symbicort) 160-4.5 mcg/actuation inhaler Active metoprolol tartrate (Lopressor) 25 mg tabletIndications:C oronary arteriosclerosis in [place] artery,Essential hypertension Take 1 tablet (25 mg) by mouth in the morning and at bedtime. 180 tablet 3 05/19/19 Active Additional Information Patient not taking.Reported on 06/19/2024 atorvastatin (Lipitor) 40 mg tabletIndications:A therosclerosis of [place] coronary artery of [place] heart without angina pectoris,Mixed hyperlipidemia Take 1 tablet (40 mg) by mouth in the morning. 90 tablet 3 06/01/19 23 Active magnesium oxide (Mag-Ox) 400 mg tablet 400 mg in the morning. Active hydroCHLOROthiazide (Microzide) 12.5 mg capsuleIndications: Essential hypertension TAKE 1 CAPSULE (12.5 MG) BY MOUTH IN THE MORNING. 90 capsule 3 02/15/20 23 Active Additional Information Patient not taking.Reported on 06/19/2024 nitroglycerin (Nitrostat) 0.4 mg SL tabletIndications:C hest pain, unspecified type PLACE 1 TABLET UNDER [...] PLEASE SEE ATTACHED FOR DETAILED DIRECTIONS 05/14/19 Active carvedilol (Coreg) 6.25 mg tabletIndications:E ssential hypertension Take 1 tablet (6.25 mg) by mouth with breakfast and with evening meal. 180 tablet 3 01/02/20 25 026 Active losartan (Cozaar) 25 mg tabletIndications:E ssential hypertension Take 1 tablet (25 mg) by mouth in the morning. 90 tablet 3 01/02/20 25 026 Active carvedilol (Coreg) 6.25 mg tabletIndications:E ssential hypertension Take 1 tablet (6.25 mg) by mouth with breakfast and with evening meal. 180 tablet 3 07/12/19 24 025 Discontin ued(Reord er) losartan (Cozaar) 25 mg tabletIndications:E ssential hypertension Take 1 tablet (25 mg) by mouth in the morning. 90 tablet 3 07/13/19 24 025 Discontin ued(Reord er) Active Problems Problem Noted Date Diagnosed Date [...] B/P log Sinusitis 03/24/2022 Coronary arteriosclerosis in [place] artery 06/30 Assessment & Plan (05/19/2022 10:43 AM EST): Coronary artery disease is stable, no concerning symptoms continue risk factor modifications- heart healthy diet, regular exercise as tolerated and continue all medications. 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 06/30/2012 Asthma 06/30/2012 Coronary atherosclerosis 06/30/2012 Encounters Date Type Department Care Team Description 01/01/2025 [facility] [place] [address] [place] [id number] Tamara Price MA Essential hypertension from Last 3 Months Social History Tobacco Use Types Packs/Day Years [...] Care Team (Late st Contact Info) Description 03/04/2025 1:45 PM EST Office Visit [facility] [address] [place] [address] Zane Navarrete MD [address] [facility] [place] [address] Health Maintenance Due Date Last Done Comments CT Colonography 1972 Colonoscopy 1972 Diabetes: Hemoglobin A1C 1972 FOBT 1972 Medicare Annual Wellness (AWV) [...] 2024 , 02/14/2023, 02/01/2022, Additional history exists FIT 06/06/2025 06/06/2024 Colorectal Cancer Screening 06/06/2027 FIT-DNA 06/06/2027 06/06/2024 Adult Tetanus 09/30/2034 09/30/2024 HIB Vaccines [...] patient's age to complete this topic [place] [address] [employer] MEDICARE ADVANTAGE MEDICAID [place] Care Teams Onion Topper Relationship Specialty Start Date End Date Shayy Ly MD [address] [facility] #A PCP - General 05/19/22
--- OUTSIDE RECORDS SUMMARY | 2025-01-24 10:19 | XMS_ITS | Patient Health Record ---
Author Organization [facility] in [place] Address [address] [place] [address] Care Team Providers Care Farm Technician Name Role Phone None, Unknown or Primary Care Provider Unavailab Jordyn Dugan Unavailable [phone] Fabián Messina Unavailable [phone] Allergies Allergen (clinical drug ingredient) Drug/Non Drug Allergy documented on EMR Reaction Allergy Type Onset Date Status codeine Codeine Unknown Drug Allergy Active Latex Latex Unknown Allergy Active Results Component Value Reference Range Notes Erythrocyte Sedimentation Ra te (Not yet reviewed by provider) Interpretation: Performing Lab: Notes/Report: [facility] , Erythrocyte Sedimentation Rate 28 <=30 mm/hr Performing Lab: see note ML - The [facility] LB CBC AUTO DIFF (Not yet revie wed by provider) Interpretation: Performing Lab: Notes/Report: [facility] , White Blood Count 6.3 4.0-11.0 [...] Performing Lab: see note ML - The [facility] LB XR foot LT min 3V (Not yet r eviewed by provider) Interpretation: Performing Lab: Notes/Report: Source Facility: [facility] [place] [address] [place] [address] XRay Report Signed Patient: ZOILA RAMOS MR#: [id number] : 1970 Acct:[id number] Age/Sex: 54 / F ADM Date: 06/13/24 Loc: Attending Dr: Fabián Messina Ordering Physician: Fabián Messina Date of Service: 06/13/24 Procedure(s): XR foot LT min 3V Accession Number(s): [id number] cc: Shayy Dela Cruz M.D.; Fabián Messina [place] [address] Patient Name: ZOILA RAMOS MRN: [id number] date: 1970 Sex: F Assigned Patient Location: Current Patient Location: Accession/Order Number: [id number] Exam Date: 06/13/2024 13:08 Report Date: 06/14/2024 [...] Signed By: 06/14/24 1004 DD/ 1001 TD/TT: Mailer Apprentice: PROF BRITNEY Olivia ([facility]) (Not yet reviewed by provider) Interpretation: Performing Lab: Notes/Report: [facility] , Sodium 137 136-145 mmol/L Potassium [...] Performing Lab: see note ML - The [facility] LB ECG 12 lead (Not yet reviewe d by provider) Interpretation: Performing Lab: Notes/Report: Source Facility: [facility] [place] [address] [place] [address] Electrocardiograph Report Signed Patient: ZOILA RAMOS MR#: [id number] : 1970 Acct:[id number] Age/Sex: 54 / F ADM Date: 06/19/24 Loc: PST Attending Dr: Jordyn DixonPLuciana Ordering Physician: Jordyn Bruce D.P.M. 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 Ordering Physician: Jordyn Bruce D.P.M. Date of Service: 06/19/24 Procedure(s): XR chest 2V Accession Number(s): [id number] cc: Shayy Dela Cruz M.D.; Jordyn Bruce D.P.M. [place] [address] Patient Name: ZOILA RAMOS MRN: [id number] date: 1970 Sex: F Assigned Patient Location: [facility] Current Patient Location: [facility] Accession/Order Number: [id number] Exam Date: 06/19/2024 14:34 Report Date: 06/19/2024 [...] M.D.06/19/2024 2:37 PM Dictation Location: [place] [address] Electronically authenticated by: [id number] Y Date: 06/19/2024 14:37 Dictated By: Aliyah Nicole M.D. Signed By: 06/19/24 1440 DD/ 1437 TD/TT: Mailer Apprentice: AFB Specimen Processing (Not yet reviewed by [...] been initiated. Acid Fast Culture Performed at: [facility] Acid Fast Culture Specimen has been received and testing has been initiated. Acid Fast Culture [address] [place], [place] [id number] Acid Fast Culture Specimen has been received and testing has been initiated. Acid Fast Culture Collateral Analyst: Klarissa Jacobs PhD, Phone: [phone] Acid Fast Culture Specimen has been received and testing has been initiated. Performing Lab: see note LC - [facility] LB SEE REPORT - Playroom Attendant Id information not found for OBX-specific construction producer legend Fungus Stain (Not yet review ed by provider) Interpretation: Performing Lab: Notes/Report: [facility] , Fungus Stain See Below For Report Fungus Stain Fungus Stain Please refer to the following specimen for additional lab results. Fungus Stain Fungus Stain see [id number] Fungus Stain Performing Lab: see note LC - [facility] LB SEE REPORT - Playroom Attendant Id information not found for OBX-specific construction producer legend Fungus (Mycology) Culture (N ot yet reviewed by provider) Interpretation: Performing Lab: Notes/Report: [facility] , Fungus (Mycology) Culture See Below For Report Fungus (Mycology) Culture Please refer to the following specimen for additional lab results. Fungus (Mycology) Culture see [id number] Fungus (Mycology) Culture Please refer to the following specimen for additional lab results. Performing Lab: see note LC - [facility] LB SEE REPORT - Playroom Attendant Id information not found for OBX-specific construction producer legend Gram Stain Result (Not yet [...] provider) Interpretation: Performing Lab: Notes/Report: Source Facility: [facility] [place] [address] [address] XRay Report Signed Patient: ZOILA RAMOS MR#: [id number] : 1970 Acct:[id number] Age/Sex: 54 / F ADM Date: 07/05/24 Loc: SURGOUT Attending Dr: Jordyn Bruce D.P.M. Ordering Physician: Jordyn Bruce D.P.M. Date of Service: 07/05/24 Procedure(s): XR foot LT min 3V Accession Number(s): [id number] cc: Shayy Dela Cruz M.D.; Jordyn Bruce D.P.M. [place] [address] Patient Name: ZOILA RAMOS MRN: [id number] date: 1970 Sex: F Assigned Patient [facility]: [facility] Current Patient Location: Accession/Order Number: [id number] Exam Date: 07/05/2024 22:49 Report Date: 07/05/2024 [...] Hui Jr., D.O.07/05/2024 10:52 PM Dictation Location: [place] [address] Electronically authenticated by: [id number] Y Date: 07/05/2024 22:52 Dictated By: Camilo Hui M.D. Signed By: 07/05/244 DD/ 51 TD/TT: Mailer Apprentice: Gram Stain Result (Not yet r eviewed by provider) Interpretation: Performing Lab: Notes/Report: [facility] , Gram Stain Result See Below For Report Gram Stain Result Gram Stain Result Please refer to the following specimen for additional lab results. Gram Stain Result Gram Stain Result see [id number] Gram Stain Result Performing Lab: see note LC - [facility] LB SEE REPORT - Playroom Attendant Id information not found for OBX-specific construction producer legend Fungus Stain (Not yet review ed by provider) Interpretation: Performing Lab: Notes/Report: [facility] , Fungus Stain See Below For Report Fungus Stain Fungus Stain Please refer to the following specimen for additional lab results. Fungus Stain Fungus Stain see [id number] Fungus Stain Performing Lab: see note LC - [facility] LB SEE REPORT - Playroom Attendant Id information not found for OBX-specific construction producer legend AFB Specimen Processing (Not yet [...] hours. Tissue Culture Performing Lab: see note - [facility] LB PROF CHEM 8 (BAS METB) (Not yet reviewed by provider) Interpretation: Performing Lab: Notes/Report: [facility] , Sodium 140 136-145 mmol/L Potassium 4.6 [...] 8.5-10.1 mg/dL Performing Lab: see note - [facility] LB CBC AUTO DIFF (Not yet revie wed by provider) Interpretation: Performing Lab: Notes/Report: [facility] , White Blood Count 7.2 4.0-11.0 [...] Performing Lab: see note ML - The [facility] MR foot LT wo con (Not yet r eviewed by provider) Interpretation: Performing Lab: Notes/Report: Source Facility: [facility] [place] [address] [place] [address] Magnetic Resonance Report Signed Patient: ZOILA RAMOS MR#: [id number] : 1970 Acct:[id number] Age/Sex: 54 / F ADM Date: 05/15/24 Loc: MRI Attending Dr: Jordyn Bruce D.P.M. Ordering Physician: Jordyn Bruce D.P.M. Date of Service: 05/15/24 Procedure(s): MR foot LT wo con Accession Number(s): [id number] cc: Shayy Dela Cruz M.D.; Jordyn Bruce D.P.M. The [place] [address] Patient Name: ZOILA RAMOS MRN: [id number] date: 1970 Sex: F Assigned Patient Location: MRI Current Patient Location: MRI Accession/Order Number: [id number] Exam Date: 05/15/2024 14:45 Report Date: 05/15/2024 [...] Dictated By: Jake Pierson M.D. Signed By: 05/15/244 DD/ TD/TT: Mailer Apprentice: SEGMENTAL PRESSURES (Not yet reviewed by provider) Interpretation: Performing Lab: Notes/Report: Source Facility: [facility] [place] [address] [place] [address] Vein Report Signed Patient: ZOILA RAMOS MR#: [id number] : 1970 Acct:[id number] Age/Sex: 54 / F ADM Date: 05/09/24 Loc: VC Attending Dr: Jordyn Bruce D.P.M. Ordering Physician: Jordyn Bruce D.P.M. Date of Service: 05/09/24 Procedure(s): VC SEGMENTAL PRESSURES Accession Number(s): [id number] cc: Shayy Dela Cruz M.D.; Jordyn Bruce D.P.M. The [place] [address] Patient Name: ZOILA RAMOS MRN: [facility]:[id number] date: 1970 Sex: F Assigned Patient Location: Current Patient Location: Accession/Order Number: [id number] Exam Date: 05/09/2024 13:04 Report Date: 05/09/2024 14:53 At the request of: JORDYN BRUCE Procedure: VC SEGMENTAL PRESSURES EXAM: VC SEGMENTAL PRESSURES HISTORY: R09.89 COMPARISON: None. FINDINGS: Segmental pressures presented as follows (right, left) in mmHg. Brachial: 132, N/A Lower thigh: 178, 201 Calf: 179, 174 DPA: 248, 234 MIRROR DEPARTMENT SUPERVISOR: 259, 113 1st Toe: 86, 103 [...] Signed By: 05/09/24 1455 DD/ 1453 TD/TT: Mailer Apprentice: JULIA foot LT min 3V (Not yet r eviewed by provider) Interpretation: Performing Lab: Notes/Report: Source Facility: [facility] [place] [address] [place] [address] XRay Report Signed Patient: ZOILA RAMOS MR#: [id number] : 1970 Acct:[id number] Age/Sex: 54 / F ADM Date: 04/27/24 Loc: EC Attending Dr: Jordyn Bruce D.P.M. Ordering Physician: Jordyn Bruce D.P.M. Date of Service: 04/27/24 Procedure(s): XR foot LT min 3V Accession Number(s): [id number] cc: Shayy Dela Cruz M.D.; Jordyn Bruce D.P.M. The [place] [address] Patient Name: ZOILA RAMOS MRN: [id number] date: 1970 Sex: F Assigned Patient Location: Current Patient Location: Accession/Order Number: [id number] Exam Date: 04/27/2024 09:20 Report Date: 04/27/2024 [...] By: Narinder Lan M.D. Signed By: 04/27/24 1351 DD/ 1347 TD/TT: Mailer Apprentice: MR collins soares (Not yet reviewed by provider) Interpretation: Performing Lab: Notes/Report: Source Facility: [place] [address] [place] [address] Magnetic Resonance Report Signed Patient: ZOILA RAMOS MR#: [id number] : 1970 Acct:[id number] Age/Sex: 54 / F ADM Date: 03/21/24 Loc: MRI Attending Dr: Jordyn Bruce D.P.M. Ordering Physician: Jordyn Bruce D.P.M. Date of Service: 03/21/24 Procedure(s): MR ankle RT wo con Accession Number(s): [id number] cc: Shayy Dela Cruz M.D.; Jordyn Bruce D.P.M. [place] [address] Patient Name: ZOILA RAMOS MRN: [facility]:[id number] date: 1970 Sex: F Assigned Patient Location: MRI Current Patient Location: Accession/Order Number: [id number] Exam Date: 03/21/2024 09:55 Report Date: 03/24/2024 [...] Marques M.D. Signed By: 03/24/2456 DD/ TD/TT: Mailer Apprentice: PROF BRITNEY Olivia ([facility]) (Not yet reviewed by provider) Interpretation: Performing Lab: Notes/Report: [facility] , Sodium 141 136-145 mmol/L Potassium [...] Performing Lab: see note ML - The [facility] LB CRP (Not yet reviewed by pro vider) Interpretation: Performing Lab: Notes/Report: [facility] , C Reactive Protein 1.26 <=0.50 mg/dL Performing Lab: see note ML - The [facility] LB XR foot LT min 3V (Not yet r eviewed by provider) Interpretation: Performing Lab: Notes/Report: Source Facility: [place] [address] [place] [address] XRay Report Signed Patient: ZOILA RAMOS MR#: [id number] : 1970 Acct:[id number] Age/Sex: 54 / F ADM Date: 08/10/24 Loc: Attending Dr: Jordyn Bruce D.P.M. Ordering Physician: Jordyn Bruce D.P.M. Date of Service: 08/10/24 Procedure(s): XR foot LT min 3V Accession Number(s): [id number] cc: Shayy Dela Cruz M.D.; Jordyn Bruce D.P.M. [place] [address] Patient Name: ZOILA RAMOS MRN: [facility]:[id number] date: 1970 Sex: F Assigned Patient Location: Current Patient Location: Accession/Order Number: [id number] Exam Date: 08/10/2024 11:50 Report Date: 08/10/2024 11:55 At the request of: JORDYN BRUCE DPM Procedure: XR foot LT min 3V 3 [...] M.D.08/10/2024 11:55 AM Dictation Location: [place] [address] Electronically authenticated by: [id number] Y Date: 08/10/2024 11:55 Dictated By: Yoni Callahan D.O. Signed By: 08/10/24 1157 DD/ 1155 TD/TT: Mailer Apprentice: Anaerobic Cult, Extended Inc ub (Not yet [...] by provider) Interpretation: Performing Lab: Notes/Report: [facility] , Prothrombin Time 10.7 9.0-11.6 sec INR 1.01 DESIRED INR: 2.0-3.0 CONDITIONS NOT LISTED BELOW 2.5-3.5 FOR PROSTHETIC HEART VALVE REPLACEMENT 2.5-3.5 RECURRENT THROMBOSIS Performing Lab: see note ML - The [facility] LB PTT (Not yet reviewed by pro vider) Interpretation: Performing Lab: Notes/Report: [facility] , Partial Thromboplastin Time 25.3 22.3-36.2 sec Performing Lab: see note ML - The [facility] LB CBC AUTO DIFF (Not yet revie wed by provider) Interpretation: Performing Lab: Notes/Report: [facility] , White Blood Count 8.8 4.0-11.0 [...] 10 3/uL Performing Lab: see note - [facility] LB Anaerobic Cult, Extended [employer] ub (Not [...] Cult, Extended Incub Performing Lab: see note [facility] LB Tissue Culture (Not yet revi ewed by provider) Interpretation: Performing Lab: Notes/Report: [facility] , Tissue Culture See Below For Report Tissue Culture Tissue Culture No growth after 18-2 4 hours. Tissue Culture Tissue Culture Tissue Culture Tissue Culture No growth in 36 - 48 hours. Tissue Culture Tissue Culture No growth in 56 - 72 hours. Tissue Culture Tissue Culture Performed at: [facility] Tissue Culture Tissue Culture [address] [place] [id number] Tissue Culture Tissue Culture Collateral Analyst: Klarissa Jacobs PhD, Phone: [phone] Tissue Culture Tissue Culture * Tissue Culture Tissue Culture * This is a correcte d result. * Tissue Culture Tissue Culture * Tissue Culture Tissue Culture A prior result that was reported as final has been changed. Tissue Culture Performing Lab: see note [facility] LB SEE REPORT - Playroom Attendant Id information not found for OBX-specific construction producer legend Reason For Referral Reason Right Achilles tear Diagnosis 1 Type 2 diabetes holli itus with diabetic polyneuropathy (E11.42) Diagnosis 2 Strain of right Achi lles tendon, subsequent encounter (S86.011D) Referral Organization [facility] Referring Provider First Name Jordyn Referring Provider Last Name Janis Referring Provider Speciality Podiatry Referred Provider Specialty Physical The rapist Referral Priority Routine Medications Medication SIG (Take, Route, Frequency, Duration) Notes Start Date End Date Status Dexcom G7 Pit Hand - USE 4 TIMES A DAY A S DIRECTED; Duration: 90 Days Acti ve Sulfamethoxazole-Trimetho prim 800-160 MG TAKE 1 TABLET BY MOUTH TWICE A DAY FOR 21 DAYS; Duration: 21 Active Famotidine 20 MG TAKE 1 TABLET BY PEDRO TH DAILY AT BEDTIME Oral; Duration: 30 Days Active Amoxicillin-Pot Clavulanate 875-125 MG TAKE 1 TABLET BY MOUTH EVERY 12 HOURS FOR 21 DAYS; Duration: 21 Active Ibuprofen 600 MG Oral; Duration: 10 Days Active Ozempic (0.25 or 0.5 MG/DOSE) 2 MG/3ML INJECT 0.25 MG SUBCUTANEOUSLY EVERY WEEK FOR 4 WEEKS Subcutaneous; Duration: 28 Days Active HYDROcodone-Acetaminophen 5-325 MG 1-2 tablet as needed Orally every 6 hrs; Duration: 5 days 07/03/2024 Active BD Pen Needle Mini U/F 31G X 5 MM ; Duration: 90 Days Active HYDROcodone-Acetaminophen 5-325 MG 1 tablet as needed Orally every 6 hrs prn; Duration: 7 days As needed 06/18/2024 Active HYDROcodone-Acetaminophen 5-325 MG 1 tablet as needed Orally every 6 hrs; Duration: 5 days 07/05/2024 Active tiZANidine HCl 4 MG 1 tablet at bedtime as needed Orally Three times a day; Duration: 7 days 04/04/2024 Active Toujeo SoloStar 300 UNIT/ML INJECT 75 UNITS IN THE MORNING, 80 UNITS IN THE EVENING Subcutaneous; Duration: 87 Days Active Social History Tobacco Use: Social History Observation Description Date Details (start date - stop date) Former Smoker NA - NA Tobacco Control (Standard) Question Answer Notes Tobacco use: Former smoker Problems Problem Type SNOMED Code ICD Code Onset Dates Problem Status W/U Status Risk Notes Problem Polyneuropathy due to type 2 diabetes mellitus (393884284) Type 2 diabetes mellitus with diabetic polyneuropathy (E11.42) Active confirmed Problem Foot ulcer due to type 2 diabetes mellitus (4724634801134) Type 2 diabetes mellitus with foot ulcer (E11.621) Active confirmed Problem Acute osteomyelitis of ankle and/or foot (136093318) Other acute osteomyelitis, left ankle and foot (M86.172) Active confirmed Problem Ulcer of left foot (disorder) (723881781) Chronic ulcer of left foot limited to [...] Encounter Location Date Provider Diagnosis [facility] [address] [facility] [place] [address] 03/19/2024 Jordyn Burce [facility] [address] [place] [address] 04/20/2024 Jordyn Bruce [facility] [address] [place] [address] 04/30/2024 Jordyn Bruce [facility] [address] [place] [address] 05/08/2024 Jordyn Bruce [facility] [address] [place] [address] 06/18/2024 Jordyn Bruce Other acute osteomyelitis, left ankle and foot M86.172 [facility] [address] [facility] [place] [place] [address] 06/18/2024 Jordyn Bruce Other acute osteomyelitis, left ankle and foot M86.172 [facility] [address] [facility] [place] [place] [address] 06/18/2024 Jordyn Bruce [facility] [address] [place] [address] 07/03/2024 Fabián Messina [facility] [address] [place] [address] [place] [address] 07/05/2024 Jordyn Bruce [facility] [address] [place] [address] [place] [address] 03/07/2024 Jordyn Bruce Strain of right Achilles tendon, initial encounter S86.011A ; Type 2 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 and Strain of right Achilles tendon, subsequent encounter S86.011D [facility] [address] [place] [address] [place] [address] 04/04/2024 Jordyn Bruce Strain of right Achilles tendon, initial encounter S86.011A and Type 2 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 [facility] [address] [place] [address] [place] [address] 05/16/2024 Jordyn Bruce Other acute osteomyelitis, left ankle and foot M86.172 [facility] [address] [place] [address] [place] [address] 04/27/2024 Jordyn Bruce Other acute osteomyelitis, left ankle and foot M86.172 ; Type 2 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 ; Left foot pain M79.672 and Strain of right Achilles tendon, initial encounter S86.011A Assessments Encounter Date Diagnosis (ICD Code) Assessment Notes Treatment Notes Treatment Clinical Notes Section Notes 03/07/2024 Strain of right Achilles tendon, initial [...] in her boot today. She was prescribed [place] but stated that it made her extremely [...] MEDIBLUE DUAL ADV PRIMARY MEDICARE [address] [place] [address] [id number] [id number] Zoila Ramos Self - patient is the insured MEDICAID [place] 2ND INS [address] OFFICE OF [place], [place] [id number] Zoila Ramos Self - patient is the insured Medical (General) History Medical History History ICD Code diabetes arthritis cardiovascular disease obesity Surgical History Surgery Date(Month/Year) right shoulder surgery cholecystectomy appendectomy
--- OUTSIDE RECORDS SUMMARY | 2025-01-24 10:19 | XMS_ITS | Clinical Summary ---
Author Organization [facility] Address [address] [place] [address] Care Team Providers Care Blade Filer Name Role Phone Unavailable Primary Care Provider [...]
--- OUTSIDE RECORDS SUMMARY | 2025-01-24 10:19 | XMS_ITS | Clinical Summary ---
Author Organization [facility] tem Address [facility] [address] [place] [address] Care Team Providers Care Legal Executive Name Role Phone Unavailable Primary Care [...]
--- OUTSIDE RECORDS SUMMARY | 2025-01-24 10:19 | XMS_ITS | Patient Health Record ---
Author Organization [facility] Address [address] [place] [address] Care Team Providers Care Rubber Heel And Sole Press Tender Name Role Phone Shayy Ly M.D. Primary Care Provider Unavail able Narinder Alvarez Loki [phone] Allergies Allergen (clinical drug ingredient) Drug/Non Drug [...] Problem Status W/U Status Risk Notes Problem [id number] Other fracture of lower end of right ulna, subsequent encounter for closed fracture with routine healing (S52.691D) Active confirmed Plan Of Treatment Pending Test Test Name Order Date SCC- WRIST 3 VIEW RIGHT [id number] 05/16/2023 SCC- WRIST 3 VIEW RIGHT [id number] 08/29/2023 [facility]- PT/OT EVAL AND TREAT 3X/WEEK FOR 6 WEEKS 08/29/2023 Insurance Providers Payer Name Payer Address Payer Phone Subscriber Number Group Number Insured Name Patient Relationship to Insured Coverage Start Date Coverage End Date Medicare [employer] [address] [place] [address] [id number] COLETTE DINH Self - [facility] the [facility] [address] [place] [address] [id number] COLETTE DINH Self - patient is the insured Medical (General) History Medical History History ICD Code Asthma/COPD Heart Attack Diabetes High Blood Pressure Latex Allergy Drug Allergies
--- OUTSIDE RECORDS SUMMARY | 2025-01-24 10:19 | XMS_ITS | Patient Health Record ---
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 Name Role Phone Sadi Bruce Unavailable [phone] Allergies Allergen (clinical drug ingredient) Drug/Non Drug Allergy documented on EMR Reaction Allergy Type Onset Date Status Latex latex (uncoded) Unknown Allergy Acti ve codeine Codeine Unknown Drug Allergy Active insulin lispro Insulin Lispro Unknown Drug Allergy Active Reason For Referral No Information Medications Medication SIG (Take, Route, Frequency, Duration) Notes Start Date End Date Status Meloxicam Active NexIUM Active Carvedilol 6.25 MG Tablet Oral; Duration: 90 Days Active Toujeo Max SoloStar 300 UNIT/ML Solution Pen-injector Subcutaneous; Duration: 90 Days Active Lisinopril Active metFORMIN HCl 1000 MG Tablet Oral; Duration: 90 Days Acti ve HumaLOG KwikPen 200 UNIT/ML Solution Pen-injector PLEASE SEE ATTACHED FOR DETAILED DIRECTIONS Subcutaneous; Duration: 88 Days Active Social History Section Notes: Patient is a nonsmoker. No alcohol use. Patient is a nonsmoker. No alcohol use. 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 (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.8) Active confirmed Problem Gangrene (96411021) Gangrene (I96) Active confirmed Encounters Encounter Location Date Provider Diagnosis [facility] [address] [place] [address] 11/29/2024 Sadi Bruce Charcot joint of left foot M14.672 and Diabetic peripheral neuropathy E11.42 [facility] [place], [address] [place] [address] 12/28/2024 Sadi Bruce Charcot joint of left foot M14.672 ; Diabetic peripheral neuropathy E11.42 and Charcot's arthropathy associated with type 2 diabetes mellitus E11.610 Assessments Encounter Date Diagnosis (ICD Code) Assessment Notes Treatment Notes Treatment Clinical Notes Section Notes 11/29/2024 Diabetic peripheral neuropathy (ICD-10 - E11.42) 11/29/2024 Charcot joint of left foot (ICD-10 - M14.672) Patient was seen and evaluated. Patient education provided and all questions answered to satisfaction. I recommended nonsurgical treatment at this time. Treatment advices included: - Elevation, compression with Jobst stockings, and rest - Partial WB with a cane and CAM boot until next f/u. May remove boot during rest. - Swelling has subsided but not resolved. Midfoot is much more stable on exam today - Xrays reviewed with her which are indicative of midfoot Charcot which was not present on xrays obtained in July 2024 - Imaging ordered: simulated WB xrays of left foot within one day of f/u appointment 12/28/2024 Diabetic peripheral neuropathy (ICD-10 - E11.42) 12/28/2024 Charcot joint of left foot (ICD-10 - M14.672) Patient encouraged to be more compliant with the CAM boot. Fortunately all swelling has subsided and stability at midfoot improved therefore I ordered a [employer]ERV[employer] boot and faxed script to automotive paint technician as well as gave her a copy. She is to closely monitor her skin. follow up in 4 weeks with WB foot xrays 12/28/2024 Charcot's arthropathy associated with type 2 diabetes mellitus (ICD-10 - E11.610) Plan Of Treatment Next Appt Details Provider Name:Sadi arcos, 01/25/2025 01:00:00 PM, [address] [place] [address] [address], [address], [place], [address], Insurance Providers Payer Name Payer Address Payer Phone Subscriber Number Group Number Insured Name Patient Relationship to Insured Coverage Start Date Coverage End Date [employer] Medicare Access Value [address] [place] [address] [id number] Zoila Ramos Self - patient is the insured Medicaid of [place] [address] [place] [phone] [id number] Zoila Ramos Self - patient is the insured Medical (General) History Medical History History ICD Code Asthma Diabetes Type 1 Heart Disease High Blood Pressure High Cholesterol Surgical History Surgery Date(Month/Year) Stints Toe amputation
--- OUTSIDE RECORDS SUMMARY | 2025-01-24 10:20 | XMS_ITS | CCD ---
Author Organization 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 Role Phone PHYSICIAN, DEFAULT Unavailable Unavailable [...] AHJAVAD ARREGUIN Consulting Unavailable HAY ., DR CARIPO Consulting Unavailable HAY ., DR CARPIO Attending Unavailable DELA CRUZ, DR SHAYY Reeys Primary Care Unavailable HAY ., DR CARPIO [...] Provider MD Shayy Dela Cruz Attending Provider [phone] MD Shayy Dela Cruz Primary Care Provider [...] Dela Cruz MD Primary Care Provider Scally APPLICATION SUPPORT ENGINEERCathie Attending Provider Allergies Allergy Classification Reported Allergen(s) Allergy Type Date of Onset Reaction(s) Facility (1 source) codeine Drug Allergy 9 [facility] Repository (20 sources) Latex; Translations: [LATEX] Drug allergy (disorder) 9 sores on skin [facility] Repository (20 sources) Codeine; Translations: [CODEINE] Drug Allergy 0 nausea [facility] (19 sources) Latex Drug allergy 5 sores on skin [facility] Other (1 source) Codeine Drug Allergy [facility] Repository (12 sources) cat dander Allergy to substance 4 Sneezing, Itching [facility] (12 sources) dog dander Allergy to substance 4 Sneezing, Itching [facility] (12 sources) ozempic Propensity to adverse reactions 4 Vomiting [facility] (3 sources) Insulin Lispro; Translations: [INSULIN LISPRO] Drug Allergy 5 [facility] (3 sources) tomato allergenic extract; Translations: [TOMATO] Drug Allergy [facility] Medications Current Medications Medication Drug Class(es) Dates Sig (Normalized) Sig (Original) [id number] actuat albuterol 0.09 mg/actuat metered dose [...] 2024 5:10pm Blood-Glucose Meter,Continuo us (Dexcom G7 Bobbin Painter) misc (9 sources) Start: 12-13-2023 Blood-Glucose Meter,Continuous (Dexcom G7 Bobbin Painter) misc Active 0 .Route December 12, 2023 11:00pm As directed Start: 12-13-2023 Blood-Glucose Meter,Continuous (Dexcom G7 Bobbin Painter) misc Active 0 .Route December 13, 2023 12:00am As directed Start: 12-13-2023 Blood-Glucose Meter,Continuous (Dexcom G7 Bobbin Painter) misc Active 0 .ROUTE December 13, 2023 [...] .ROUTE December 13, 2023 12:00am As directed Blood-Glucose,Bobbin Painter,Cont (Dexcom G7 Bobbin Painter) misc (1 source) Start: 12-13-2023 Blood-Glucose,Bobbin Painter,Cont (Dexcom G7 Bobbin Painter) misc Active 0 .Route December 13, 2023 [...] Orally Once a day Active Dexcom G7 Bobbin Painter - (4 sources) Start: 06-03-19 24 Dexcom G7 Bobbin Painter - as directed as directed 4 x [...] Jesus Lucas ( ) FreeStyle Amrik 3 [place] - (3 sources) Start: 06-06-2023 FreeStyle Amrik 3 [place] - as directed invitro 4 times daily [...] Jun, Not-Taking/PRN Blood-Glucose Meter,Continuous (Freestyle Amrik 3 [place]) misc (16 sources) Start: 07-28-2023 End: 12-13-2023 Blood-Glucose Meter,Continuous (Freestyle Amrik 3 [place]) misc Discontinued EACH .ROUTE .[facility] July 27, 2023 11:00pm December 13, 2023 12:09pm As directed Start: 07-28-2023 End: 12-13-2023 Blood-Glucose Meter,Continuo us (Freestyle Amrik 3 [place]) misc Discontinued [facility] July 28, 2023 12:00am December 13, 2023 1:09pm As directed Start: 07-28-2023 Blood-Glucose Meter,Continuous (Freestyle Amrik 3 [place]) misc Active EACH .ROUTE [facility] July 28, 2023 12:00am As directed Blood-Glucose Sensor (Freest yle Amrik 3 Sensor) device (17 sources) Start: 07-28-2023 End: 12-13-2023 Blood-Glucose Sensor (Freest yle Amrik 3 Sensor) device Discontinued EACH .ROUTE .[facility] July 27, 2023 11:00pm December 13, 2023 12:09pm As directed Start: 07-28-2023 End: 12-13-2023 Blood-Glucose Sensor (Freest yle Amrik 3 Sensor) device Discontinued EACH .ROUTE .[facility] July 28, 2023 12:00am December 13, 2023 1:09pm As directed Start: 07-28-2023 Blood-Glucose Sensor (Freestyle Amrik 3 Sensor) device Active EACH .ROUTE .[facility] July 28, 2023 12:00am As directed Blood-Glucose,Bobbin Painter,Cont (Freestyle Amrik 3 [place]) misc (1 source) Start: 07-28-2023 End: 12-13-2023 Blood-Glucose,Bobbin Painter,Cont (Freestyle Amrik 3 [place]) misc Discontinued EACH .ROUTE .[facility] July 28, 2023 12:00am December 13, [...] Source Status: Continue; Provider: Jose De Jesus Reyse take 2 tablets by mo uth twice [...] angina pectoris; Translations: [Atherosclerotic heart disease of [place] coronary artery without angina pectoris] Onset: 07-12-2022 [...] Onset: 11-09-2021 Chronic Other aftercare (20 sources) 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; Translations: [Long-term (current) [...] Episodic Other aftercare (1 source) 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; Translations: [INTERMEDIATE CURRENT USE OF ASPIRIN] Onset: 04-08-2022 Episodic Other aftercare (1 source) retirement (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 of oral hypoglycemic drugs; Translations: [INTERMEDIATE USE ORAL HYPOGLYCEMIC DX] Onset: 04-08-2022 Episodic Other aftercare (1 source) Other detention (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 therapy; Translations: [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] Onset: 11-09-2021 Episodic Other [...] fraction] Hemoglobin A1c/Hemoglobin.total in Blood by HPLC [facility] No Panel Informationon 08-07 Bedside Glucose 99 [facility] Pathology study report docum entOrdered By: Tejal Church on 07-10-2024 Pathology study [facility] Other Aren 07-05-2024 L Specimen: [id number] Received: 07/06/24 Status: SAM Cook Num: [id number] Spec Type: Surgical Subm Dr: Jordyn Bruce DPM, Tissues: A DIGIT AMPUTATION (2ND LEFT TOE PARTIAL) B DIGIT AMPUTATION (3RD LEFT TOE) Procedures: HE/5, Gross/Micro L4/2, Decalcification/2 Age/ Patient Sex Location Account Attending Physician Zoila Ramos 54/F [facility] [id number] Jordyn Bruce DPM, SPEC NUM: [id number] RECD: 07/06/24 STATUS: [place] NUM: [id number] JESSICA: 07/05/[address]: Jordyn Bruce DPM, MS ENTERED: 07/06/[address] [facility] DR: Chasity Jones SPEC TYPE: Surgical [...] ulcer, left second and third toes Specimen: [id number] Received: 07/06/24 Status: VADIMAmbreen Cook Num: [id number] Spec Type: Surgical Subm Dr: Jordyn Bruce DPM, MS Tissues: A DIGIT AMPUTATION (2ND LEFT TOE PARTIAL) B DIGIT AMPUTATION (3RD LEFT TOE) Procedures: HE/5, Gross/Micro L4/2, Decalcification/2 Patient: Aura Ramosdanny Sidhu [id number] (Continued) Specimen: [id number] Received: 07/06/24 (Continued) Signed (signature on file) Tejal Church MD 07/10/24 1438 Specimen: [id number] Received: 07/06/24 Status: SAM Cook Num: [id number] Spec Type: Surgical Subm Dr: Jordyn Bruce,DPNegro, MS Tissues: A DIGIT AMPUTATION (2ND LEFT TOE PARTIAL) B DIGIT AMPUTATION (3RD LEFT TOE) Procedures: HE/5, Gross/Micro L4/2, Decalcification/2 Patient: Richard,Zoila Sidhu [id number] (Continued) Specimen: [id number] Received: 07/06/24-1327 (Continued) Gross Description Part A [...] x 1 x 0.4 cm. Cassettes: A1 Campground Cleaning Attendant section of the wound with underlying central second phalangeal bone, decalcified A2 Tangential sections of proximal skin margin A3 Detached skin ( 3, ss, [id number] A)J Part B is received in formalin [...] Tangential sections of proximal skin margin with truck sales representative sec (more content not included)... Normal [facility] Orders Onlyon 06-25-2024 Orders Only [id number] Zoila Ramos 1970 F Date Provider Department Center 06/25/2024 8-JESSICA STONE [facility] No family history on file Normal [facility] Activated partial thrombopla stin time (aPTT) in platelet poor plasma by coagulation aon 06-19-2024 aPTT Coag (PPP) [Time] Activated partial thromboplastin time (aPTT) in platelet poor plasma by coagulation a 22.3-36.2 [facility] Basophils Auto (Bld) [#/Vol] on 06-19-2024 Basophils (Bld) [#/Vol] Automated basophil count 0.0-0.1 [facility] Basophils/100 WBC Auto (Bld) on 06-19-2024 Basophils/100 WBC (Bld) Automated basophil % 0.2-2.0 [facility] Eosinophils/100 WBC Auto (Bl d)on 06-19-2024 Eosinophils/100 WBC (Bld) Automated eosinophil % 0.9-7.0 [facility] Erythrocyte distribution wid th Auto (RBC) [Ratio]on 06-19-2024 Erythrocyte distribution width (RBC) [Ratio] Erythrocyte distribution width [Ratio] by Automated count 11.0-15.0 [facility] Estimated glomerular filtrat ion rate (GFR) non- Americanon 06-19-2024 GFR/1.73 sq M.predicted among non-blacks MDRD (S/P/Bld) [Vol rate/Area] Estimated glomerular filtration rate (GFR) non- >=60 mL/min/1.73m 2 [facility] Globulin Calc (S) [Mass/Vol] on 06-19-2024 Globulin (S) [Mass/Vol] Serum globulin measurement by calculation (mass/volume) [facility] Hematocrit Auto (Bld) [Volum e fraction]on 06-19-2024 Hematocrit (Bld) [Volume fraction] Hematocrit [Volume Fraction] of Blood by Automated count 36.0-48.0 [facility] Hemoglobin [Mass/volume] in Bloodon 06-19-2024 Hemoglobin (Bld) [Mass/Vol] Hemoglobin [Mass/volume] in Blood 12.0-16.0 [facility] INR in Platelet poor plasma by Coagulation assayon 06-19-2024 INR Coag (PPP) [Relative time] INR in Platelet poor plasma by Coagulation assay [facility] Comment on above: DESIRED INR:2.0-3.0 CONDITIONS NOT LISTED BELOW2.5-3.5 FOR PROSTHETIC HEART VALVE REPLACEMENT2.5-3.5 RECURRENT THROMBOSIS Laboratory - Chemistry and C hemistry - challengeon 06-19-2024 Albumin [Mass/Vol] 3.3 g/dL Low 3.4-5.0 [facility] ALP [Catalytic activity/Vol] 110 U/L 46-116 [facility] ALT [Catalytic activity/Vol] 44 U/L 14-59 [facility] AST [Catalytic activity/Vol] 23 U/L 15-37 [facility] Bilirubin [Mass/Vol] 0.3 mg/dL 0.2-1.0 [facility] Calcium [Mass/Vol] 9.3 mg/dL 8.5-10.1 [facility] Chloride [Moles/Vol] 102 mmol/L 98-107 [facility] CO2 [Moles/Vol] 27.9 mmol/L 21.0-32.0 [facility] Creatinine [Mass/Vol] 0.88 mg/dL 0.55-1.02 [facility] GFR/1.73 sq M.predicted MDRD (S/P/Bld) [Vol rate/Area] mL/min/{1.73_m2} >=60 mL/min/1.73m 2 [facility] Glucose [Mass/Vol] 175 mg/dL High 74-106 [facility] Lipase [Catalytic activity/Vol] 28.0 U/L 16.0-77.0 [facility] Potassium [Moles/Vol] 4.2 mmol/L 3.5-5.1 [facility] Protein [Mass/Vol] 7.6 g/dL 6.4-8.2 [facility] Sodium [Moles/Vol] 137 mmol/L 136-145 [facility] Urea nitrogen [Mass/Vol] 12.0 mg/dL 7.0-18.0 [facility] Urea nitrogen/Creatinine [Mass ratio] 13.6 mg/mg [facility] Laboratory - Hematology and Cell countson 06-19-2024 Immature granulocytes/100 WBC (Bld) 0.1 % 0.0-0.5 [facility] Leukocytes [#/volume] correc alma delia for nucleated erythrocytes in Blood by Automated counon 06-19-2024 WBC corrected for nucl RBC Auto (Bld) [#/Vol] Leukocytes [#/volume] corrected for nucleated erythrocytes in Blood by Automated coun 4.0-11.0 [facility] Lymphocytes Auto (Bld) [#/Vo l]on 06-19-2024 Lymphocytes (Bld) [#/Vol] Lymphocytes [#/volume] in Blood by Automated count 1.2-3.8 [facility] Lymphocytes/100 WBC Auto (Bl d)on 06-19-2024 Lymphocytes/100 WBC (Bld) Lymphocytes/100 leukocytes in Blood by Automated count 20.5-60.0 [facility] MCH Auto (RBC) [Entitic mass ]on 06-19-2024 MCH (RBC) [Entitic mass] MCH [Entitic mass] by Automated count 26.7-34.0 [facility] MCHC Auto (RBC) [Mass/Vol]on 06-19-2024 MCHC (RBC) [Mass/Vol] MCHC [Mass/volume] by Automated count 29.9-35.2 [facility] MCV Auto (RBC) [Entitic vol] on 06-19-2024 MCV (RBC) [Entitic vol] MCV [Entitic volume] by Automated count 81.0-99.0 [facility] Monocytes Auto (Bld) [#/Vol] on 06-19-2024 Monocytes (Bld) [#/Vol] Automated blood monocyte count 0.3-0.8 [facility] Monocytes/100 WBC Auto (Bld) on 06-19-2024 Monocytes/100 WBC (Bld) Automated monocyte % 1.7-12.0 [facility] Neutrophils Auto (Bld) [#/Vo l]on 06-19-2024 Neutrophils (Bld) [#/Vol] Neutrophils [#/volume] in Blood by Automated count 1.4-6.5 [facility] Neutrophils/100 WBC Auto (Bl d)on 06-19-2024 Neutrophils/100 WBC (Bld) Automated neutrophil % 43.0-75.0 [facility] No Panel Informationon 06-19 Eosinophils # (Auto) 0.2 10 3/uL 0.0-0.7 [facility] Immature Granulocyte # (Auto) 0.01 10 3/uL 0.00-0.03 [facility] Office Visiton 06-19-2024 Follow-up visit [id number] Zoila Ramos 1970 F Date Provider Department Center 06/19/2024 Bennie-MARQUES [facility] No family history on file Level of Service:09863 OR OFFICE/OUTPATIENT ESTABLISHED MOD MDM 30 MIN Normal [facility] Platelet mean volume Auto (B ld) [Entitic vol]on 06-19-2024 Platelet mean volume (Bld) [Entitic vol] Platelet mean volume [Entitic volume] in Blood by Automated count 9.5-13.5 [facility] Platelets Auto (Bld) [#/Vol] on 06-19-2024 Platelets (Bld) [#/Vol] Platelets [#/volume] in Blood by Automated count 150-450 [facility] Prothrombin time (PT)on 06-02 PT Coag (PPP) [Time] Prothrombin time (PT) 9.0-11.6 [facility] RBC Auto (Bld) [#/Vol]on RBC (Bld) [#/Vol] Erythrocytes [#/volume] in Blood by Automated count 4.20-5.40 [facility] Serum or plasma albumin/glob ulin mass ratioon 06-19-2024 Albumin/Globulin [Mass ratio] Serum or plasma albumin/globulin mass ratio [facility] Serum or plasma anion gap de terminationon 06-19-2024 Anion gap [Moles/Vol] Serum or plasma anion gap determination [facility] Cholesterol in LDL Calc [Mas s/Vol]on 06-12-2024 Cholesterol in LDL [Mass/Vol] Cholesterol in LDL [Mass/volume] in Serum or Plasma by calculation [facility] Comment on above: <100 mg/dl [id number] 0-129 mg/dl NEAR OR ABOVE [id number] mg/dl BORDERLINE [id number] mg/dl HIGH>190 mg/dl VERY HIGH Cholesterol in VLDL Calc [Ma ss/Vol]on 06-12-2024 Cholesterol in VLDL [Mass/Vol] Cholesterol in VLDL [Mass/volume] in Serum or Plasma by calculation [facility] Estimated glomerular filtrat ion rate (GFR) non- Americanon 06-12-2024 GFR/1.73 sq M.predicted among non-blacks MDRD (S/P/Bld) [Vol rate/Area] Estimated glomerular filtration rate (GFR) non- >=60 mL/min/1.73m 2 [facility] Globulin Calc (S) [Mass/Vol] on 06-12-2024 Globulin (S) [Mass/Vol] Serum globulin measurement by calculation (mass/volume) [facility] Laboratory - Chemistry and C hemistry - challengeon 06-12-2024 Albumin [Mass/Vol] 3.1 g/dL Low 3.4-5.0 [facility] ALP [Catalytic activity/Vol] 118 U/L High 46-116 [facility] ALT [Catalytic activity/Vol] 36 U/L 14-59 [facility] AST [Catalytic activity/Vol] 18 U/L 15-37 [facility] Bilirubin [Mass/Vol] 0.3 mg/dL 0.2-1.0 [facility] Calcium [Mass/Vol] 9.1 mg/dL 8.5-10.1 [facility] Chloride [Moles/Vol] 102 mmol/L 98-107 [facility] Cholesterol [Mass/Vol] 124 mg/dL <=200 [facility] Cholesterol in HDL [Mass/Vol] 43 mg/dL 40-60 [facility] Comment on above: > or =60 mg/dl - LOW CARDIOVASCULAR RISK<40 mg/dl - HIGH CARDIOVASCULAR RISK CO2 [Moles/Vol] 28.4 mmol/L 21.0-32.0 [facility] Cobalamin (Vitamin B12) [Mass/Vol] 998 pg/mL 232-1245 [facility] Comment on above: Performed at: - [address] [id number] Director: Gerald Jacobs PhD, Phone: [phone] Creatinine [Mass/Vol] 0.87 mg/dL 0.55-1.02 [facility] GFR/1.73 sq M.predicted MDRD (S/P/Bld) [Vol rate/Area] mL/min/{1.73_m2} >=60 mL/min/1.73m 2 [facility] Glucose [Mass/Vol] 197 mg/dL High 74-106 [facility] Potassium [Moles/Vol] 4.5 mmol/L 3.5-5.1 [facility] Protein [Mass/Vol] 7.3 g/dL 6.4-8.2 [facility] Sodium [Moles/Vol] 142 mmol/L 136-145 [facility] Triglyceride [Mass/Vol] 68 mg/dL <=150 [facility] Urea nitrogen [Mass/Vol] 11.0 mg/dL 7.0-18.0 [facility] Urea nitrogen/Creatinine [Mass ratio] 12.6 mg/mg [facility] No Panel Informationon 06-12 25-Hydroxy Vitamin D Total 44.6 ng/mL [facility] Comment on above: <20 ng/mL Vit D defi cient20-<30 ng/mL Vit D [id number] ng/mL Vit D sufficient>100 ng/mL Potential Toxicity Serum or plasma albumin/glob ulin mass ratioon 06-12-2024 Albumin/Globulin [Mass ratio] Serum or plasma albumin/globulin mass ratio [facility] Serum or plasma anion gap de terminationon 06-12-2024 Anion gap [Moles/Vol] Serum or plasma anion gap determination [facility] Serum or plasma total choles terol/high density lipoprotein (HDL) cholesterol mass jaun 06-12-2024 Cholesterol.total/Ch olesterol in HDL [Mass ratio] Serum or plasma total cholesterol/high density lipoprotein (HDL) cholesterol mass rat [facility] Comment on above: 3.3 - 4.4 LOW RISK4. 4 - 7.1 AVERAGE RISK7.1 - 11.0 MODERATE RISK>11.0 HIGH RISK Basophils Auto (Bld) [#/Vol] on 06-07-2024 Basophils (Bld) [#/Vol] Automated basophil count 0.0-0.1 [facility] Basophils/100 WBC Auto (Bld) on 06-07-2024 Basophils/100 WBC (Bld) Automated basophil % 0.2-2.0 [facility] Eosinophils/100 WBC Auto (Bl d)on 06-07-2024 Eosinophils/100 WBC (Bld) Automated eosinophil % 0.9-7.0 [facility] Erythrocyte distribution wid th Auto (RBC) [Ratio]on 06-07-2024 Erythrocyte distribution width (RBC) [Ratio] Erythrocyte distribution width [Ratio] by Automated count 11.0-15.0 [facility] Estimated glomerular filtrat ion rate (GFR) non- Americanon 06-07-2024 GFR/1.73 sq M.predicted among non-blacks MDRD (S/P/Bld) [Vol rate/Area] Estimated glomerular filtration rate (GFR) non- >=60 mL/min/1.73m 2 [facility] Globulin Calc (S) [Mass/Vol] on 06-07-2024 Globulin (S) [Mass/Vol] Serum globulin measurement by calculation (mass/volume) [facility] Hematocrit Auto (Bld) [Volum e fraction]on 06-07-2024 Hematocrit (Bld) [Volume fraction] Hematocrit [Volume Fraction] of Blood by Automated count 36.0-48.0 [facility] Hemoglobin [Mass/volume] in Bloodon 06-07-2024 Hemoglobin (Bld) [Mass/Vol] Hemoglobin [Mass/volume] in Blood 12.0-16.0 [facility] Laboratory - Chemistry and C hemistry - challengeon 06-07-2024 Lactate [Moles/Vol] 1.9 mmol/L 0.4-2.0 [facility] Albumin [Mass/Vol] 3.3 g/dL Low 3.4-5.0 [facility] ALP [Catalytic activity/Vol] 115 U/L 46-116 [facility] ALT [Catalytic activity/Vol] 39 U/L 14-59 [facility] AST [Catalytic activity/Vol] 16 U/L 15-37 [facility] Bilirubin [Mass/Vol] 0.2 mg/dL 0.2-1.0 [facility] Calcium [Mass/Vol] 9.4 mg/dL 8.5-10.1 [facility] Chloride [Moles/Vol] 104 mmol/L 98-107 [facility] CO2 [Moles/Vol] 27.1 mmol/L 21.0-32.0 [facility] Creatinine [Mass/Vol] 0.86 mg/dL 0.55-1.02 [facility] GFR/1.73 sq M.predicted MDRD (S/P/Bld) [Vol rate/Area] mL/min/{1.73_m2} >=60 mL/min/1.73m 2 [facility] Glucose [Mass/Vol] 157 mg/dL High 74-106 [facility] Potassium [Moles/Vol] 4.4 mmol/L 3.5-5.1 [facility] Protein [Mass/Vol] 7.3 g/dL 6.4-8.2 [facility] Sodium [Moles/Vol] 142 mmol/L 136-145 [facility] Urea nitrogen [Mass/Vol] 23.0 mg/dL High 7.0-18.0 [facility] Urea nitrogen/Creatinine [Mass ratio] 26.7 mg/mg [facility] Laboratory - Hematology and Cell countson 06-07-2024 ESR (Bld) [Velocity] 41 mm/h High <=30 [facility] Immature granulocytes/100 WBC (Bld) 0.2 % 0.0-0.5 [facility] Leukocytes [#/volume] correc alma delia for nucleated erythrocytes in Blood by Automated counon 06-07-2024 WBC corrected for nucl RBC Auto (Bld) [#/Vol] Leukocytes [#/volume] corrected for nucleated erythrocytes in Blood by Automated coun 4.0-11.0 [facility] Lymphocytes Auto (Bld) [#/Vo l]on 06-07-2024 Lymphocytes (Bld) [#/Vol] Lymphocytes [#/volume] in Blood by Automated count 1.2-3.8 [facility] Lymphocytes/100 WBC Auto (Bl d)on 06-07-2024 Lymphocytes/100 WBC (Bld) Lymphocytes/100 leukocytes in Blood by Automated count 20.5-60.0 [facility] MCH Auto (RBC) [Entitic mass ]on 06-07-2024 MCH (RBC) [Entitic mass] MCH [Entitic mass] by Automated count 26.7-34.0 [facility] MCHC Auto (RBC) [Mass/Vol]on 06-07-2024 MCHC (RBC) [Mass/Vol] MCHC [Mass/volume] by Automated count 29.9-35.2 [facility] MCV Auto (RBC) [Entitic vol] on 06-07-2024 MCV (RBC) [Entitic vol] MCV [Entitic volume] by Automated count 81.0-99.0 [facility] Monocytes Auto (Bld) [#/Vol] on 06-07-2024 Monocytes (Bld) [#/Vol] Automated blood monocyte count 0.3-0.8 [facility] Monocytes/100 WBC Auto (Bld) on 06-07-2024 Monocytes/100 WBC (Bld) Automated monocyte % 1.7-12.0 [facility] Neutrophils Auto (Bld) [#/Vo l]on 06-07-2024 Neutrophils (Bld) [#/Vol] Neutrophils [#/volume] in Blood by Automated count 1.4-6.5 [facility] Neutrophils/100 WBC Auto (Bl d)on 06-07-2024 Neutrophils/100 WBC (Bld) Automated neutrophil % 43.0-75.0 [facility] No Panel Informationon 06-07 C-Reactive Protein, Quantitative 1.46 mg/dL High <=0.50 [facility] Eosinophils # (Auto) 0.3 10 3/uL 0.0-0.7 [facility] Immature Granulocyte # (Auto) 0.02 10 3/uL 0.00-0.03 [facility] Platelet mean volume Auto (B ld) [Entitic vol]on 06-07-2024 Platelet mean volume (Bld) [Entitic vol] Platelet mean volume [Entitic volume] in Blood by Automated count 9.5-13.5 [facility] Platelets Auto (Bld) [#/Vol] on 06-07-2024 Platelets (Bld) [#/Vol] Platelets [#/volume] in Blood by Automated count 150-450 [facility] RBC Auto (Bld) [#/Vol]on RBC (Bld) [#/Vol] Erythrocytes [#/volume] in Blood by Automated count 4.20-5.40 [facility] Serum or plasma albumin/glob ulin mass ratioon 06-07-2024 Albumin/Globulin [Mass ratio] Serum or plasma albumin/globulin mass ratio [facility] Serum or plasma anion gap de terminationon 06-07-2024 Anion gap [Moles/Vol] Serum or plasma anion gap determination [facility] Basophils Auto (Bld) [#/Vol] on 06-01-2024 Basophils (Bld) [#/Vol] Automated basophil count 0.0-0.1 [facility] Basophils/100 WBC Auto (Bld) on 06-01-2024 Basophils/100 WBC (Bld) Automated basophil % 0.2-2.0 [facility] Eosinophils/100 WBC Auto (Bl d)on 06-01-2024 Eosinophils/100 WBC (Bld) Automated eosinophil % 0.9-7.0 [facility] Erythrocyte distribution wid th Auto (RBC) [Ratio]on 06-01-2024 Erythrocyte distribution width (RBC) [Ratio] Erythrocyte distribution width [Ratio] by Automated count 11.0-15.0 [facility] Estimated glomerular filtrat ion rate (GFR) non- Americanon 06-01-2024 GFR/1.73 sq M.predicted among non-blacks MDRD (S/P/Bld) [Vol rate/Area] Estimated glomerular filtration rate (GFR) non- Low >=60 mL/min/1.73m 2 [facility] Hematocrit Auto (Bld) [Volum e fraction]on 06-01-2024 Hematocrit (Bld) [Volume fraction] Hematocrit [Volume Fraction] of Blood by Automated count 36.0-48.0 [facility] Hemoglobin [Mass/volume] in Bloodon 06-01-2024 Hemoglobin (Bld) [Mass/Vol] Hemoglobin [Mass/volume] in Blood 12.0-16.0 [facility] Laboratory - Chemistry and C hemistry - challengeon 06-01-2024 Calcium [Mass/Vol] 9.0 mg/dL 8.5-10.1 [facility] Chloride [Moles/Vol] 105 mmol/L 98-107 [facility] CO2 [Moles/Vol] 29.8 mmol/L 21.0-32.0 [facility] Creatinine [Mass/Vol] 1.01 mg/dL 0.55-1.02 [facility] GFR/1.73 sq M.predicted MDRD (S/P/Bld) [Vol rate/Area] mL/min/{1.73_m2} >=60 mL/min/1.73m 2 [facility] Glucose [Mass/Vol] 171 mg/dL High 74-106 [facility] Potassium [Moles/Vol] 4.6 mmol/L 3.5-5.1 [facility] Sodium [Moles/Vol] 140 mmol/L 136-145 [facility] Urea nitrogen [Mass/Vol] 15.0 mg/dL 7.0-18.0 [facility] Urea nitrogen/Creatinine [Mass ratio] 14.9 mg/mg [facility] Laboratory - Hematology and Cell countson 06-01-2024 Immature granulocytes/100 WBC (Bld) 0.3 % 0.0-0.5 [facility] Leukocytes [#/volume] correc alma delia for nucleated erythrocytes in Blood by Automated counon 06-01-2024 WBC corrected for nucl RBC Auto (Bld) [#/Vol] Leukocytes [#/volume] corrected for nucleated erythrocytes in Blood by Automated coun 4.0-11.0 [facility] Lymphocytes Auto (Bld) [#/Vo l]on 06-01-2024 Lymphocytes (Bld) [#/Vol] Lymphocytes [#/volume] in Blood by Automated count 1.2-3.8 [facility] Lymphocytes/100 WBC Auto (Bl d)on 06-01-2024 Lymphocytes/100 WBC (Bld) Lymphocytes/100 leukocytes in Blood by Automated count 20.5-60.0 [facility] MCH Auto (RBC) [Entitic mass ]on 06-01-2024 MCH (RBC) [Entitic mass] MCH [Entitic mass] by Automated count 26.7-34.0 [facility] MCHC Auto (RBC) [Mass/Vol]on 06-01-2024 MCHC (RBC) [Mass/Vol] MCHC [Mass/volume] by Automated count 29.9-35.2 [facility] MCV Auto (RBC) [Entitic vol] on 06-01-2024 MCV (RBC) [Entitic vol] MCV [Entitic volume] by Automated count 81.0-99.0 [facility] Monocytes Auto (Bld) [#/Vol] on 06-01-2024 Monocytes (Bld) [#/Vol] Automated blood monocyte count 0.3-0.8 [facility] Monocytes/100 WBC Auto (Bld) on 06-01-2024 Monocytes/100 WBC (Bld) Automated monocyte % 1.7-12.0 [facility] Neutrophils Auto (Bld) [#/Vo l]on 06-01-2024 Neutrophils (Bld) [#/Vol] Neutrophils [#/volume] in Blood by Automated count 1.4-6.5 [facility] Neutrophils/100 WBC Auto (Bl d)on 06-01-2024 Neutrophils/100 WBC (Bld) Automated neutrophil % 43.0-75.0 [facility] No Panel Informationon 06-01 Eosinophils # (Auto) 0.2 10 3/uL 0.0-0.7 [facility] Immature Granulocyte # (Auto) 0.02 10 3/uL 0.00-0.03 [facility] Platelet mean volume Auto (B ld) [Entitic vol]on 06-01-2024 Platelet mean volume (Bld) [Entitic vol] Platelet mean volume [Entitic volume] in Blood by Automated count 9.5-13.5 [facility] Platelets Auto (Bld) [#/Vol] on 06-01-2024 Platelets (Bld) [#/Vol] Platelets [#/volume] in Blood by Automated count 150-450 [facility] RBC Auto (Bld) [#/Vol]on RBC (Bld) [#/Vol] Erythrocytes [#/volume] in Blood by Automated count 4.20-5.40 [facility] Serum or plasma anion gap de terminationon 06-01-2024 Anion gap [Moles/Vol] Serum or plasma anion gap determination [facility] Basophils Auto (Bld) [#/Vol] on 05-16-2024 Basophils (Bld) [#/Vol] Automated basophil count 0.0-0.1 [facility] Basophils/100 WBC Auto (Bld) on 05-16-2024 Basophils/100 WBC (Bld) Automated basophil % 0.2-2.0 [facility] Eosinophils/100 WBC Auto (Bl d)on 05-16-2024 Eosinophils/100 WBC (Bld) Automated eosinophil % 0.9-7.0 [facility] Erythrocyte distribution wid th Auto (RBC) [Ratio]on 05-16-2024 Erythrocyte distribution width (RBC) [Ratio] Erythrocyte distribution width [Ratio] by Automated count 11.0-15.0 [facility] Estimated glomerular filtrat ion rate (GFR) non- Americanon 05-16-2024 GFR/1.73 sq M.predicted among non-blacks MDRD (S/P/Bld) [Vol rate/Area] Estimated glomerular filtration rate (GFR) non- Low >=60 mL/min/1.73m 2 [facility] Hematocrit Auto (Bld) [Volum e fraction]on 05-16-2024 Hematocrit (Bld) [Volume fraction] Hematocrit [Volume Fraction] of Blood by Automated count 36.0-48.0 [facility] Hemoglobin [Mass/volume] in Bloodon 05-16-2024 Hemoglobin (Bld) [Mass/Vol] Hemoglobin [Mass/volume] in Blood 12.0-16.0 [facility] Laboratory - Chemistry and C hemistry - challengeon 05-16-2024 Calcium [Mass/Vol] 9.1 mg/dL 8.5-10.1 [facility] Chloride [Moles/Vol] 104 mmol/L 98-107 [facility] CO2 [Moles/Vol] 30.6 mmol/L 21.0-32.0 [facility] Creatinine [Mass/Vol] 1.01 mg/dL 0.55-1.02 [facility] GFR/1.73 sq M.predicted MDRD (S/P/Bld) [Vol rate/Area] mL/min/{1.73_m2} >=60 mL/min/1.73m 2 [facility] Glucose [Mass/Vol] 206 mg/dL High 74-106 [facility] Potassium [Moles/Vol] 5.1 mmol/L 3.5-5.1 [facility] Sodium [Moles/Vol] 141 mmol/L 136-145 [facility] Urea nitrogen [Mass/Vol] 12.0 mg/dL 7.0-18.0 [facility] Urea nitrogen/Creatinine [Mass ratio] 11.9 mg/mg [facility] Laboratory - Hematology and Cell countson 05-16-2024 ESR (Bld) [Velocity] 28 mm/h <=30 [facility] Immature granulocytes/100 WBC (Bld) 0.3 % 0.0-0.5 [facility] Leukocytes [#/volume] correc alma delia for nucleated erythrocytes in Blood by Automated counon 05-16-2024 WBC corrected for nucl RBC Auto (Bld) [#/Vol] Leukocytes [#/volume] corrected for nucleated erythrocytes in Blood by Automated coun 4.0-11.0 [facility] Lymphocytes Auto (Bld) [#/Vo l]on 05-16-2024 Lymphocytes (Bld) [#/Vol] Lymphocytes [#/volume] in Blood by Automated count 1.2-3.8 [facility] Lymphocytes/100 WBC Auto (Bl d)on 05-16-2024 Lymphocytes/100 WBC (Bld) Lymphocytes/100 leukocytes in Blood by Automated count 20.5-60.0 [facility] MCH Auto (RBC) [Entitic mass ]on 05-16-2024 MCH (RBC) [Entitic mass] MCH [Entitic mass] by Automated count 26.7-34.0 [facility] MCHC Auto (RBC) [Mass/Vol]on 05-16-2024 MCHC (RBC) [Mass/Vol] MCHC [Mass/volume] by Automated count 29.9-35.2 [facility] MCV Auto (RBC) [Entitic vol] on 05-16-2024 MCV (RBC) [Entitic vol] MCV [Entitic volume] by Automated count 81.0-99.0 [facility] Monocytes Auto (Bld) [#/Vol] on 05-16-2024 Monocytes (Bld) [#/Vol] Automated blood monocyte count 0.3-0.8 [facility] Monocytes/100 WBC Auto (Bld) on 05-16-2024 Monocytes/100 WBC (Bld) Automated monocyte % 1.7-12.0 [facility] Neutrophils Auto (Bld) [#/Vo l]on 05-16-2024 Neutrophils (Bld) [#/Vol] Neutrophils [#/volume] in Blood by Automated count 1.4-6.5 [facility] Neutrophils/100 WBC Auto (Bl d)on 05-16-2024 Neutrophils/100 WBC (Bld) Automated neutrophil % 43.0-75.0 [facility] No Panel Informationon 05-16 C-Reactive Protein, Quantitative 1.26 mg/dL High <=0.50 [facility] Eosinophils # (Auto) 0.3 10 3/uL 0.0-0.7 [facility] Immature Granulocyte # (Auto) 0.02 10 3/uL 0.00-0.03 [facility] Platelet mean volume Auto (B ld) [Entitic vol]on 05-16-2024 Platelet mean volume (Bld) [Entitic vol] Platelet mean volume [Entitic volume] in Blood by Automated count 9.5-13.5 [facility] Platelets Auto (Bld) [#/Vol] on 05-16-2024 Platelets (Bld) [#/Vol] Platelets [#/volume] in Blood by Automated count 150-450 [facility] RBC Auto (Bld) [#/Vol]on RBC (Bld) [#/Vol] Erythrocytes [#/volume] in Blood by Automated count 4.20-5.40 [facility] Serum or plasma anion gap de terminationon 05-16-2024 Anion gap [Moles/Vol] Serum or plasma anion gap determination [facility] Creatinine [Mass/volume] in UrineOrdered By: Cathie Vargas on 02-23-2024 Creatinine (U) [Mass/Vol] 28.00 mg/dL [facility] Comment on above: No reference range e stablished MicroAlb Creat Ratio,Uon Creatinine, Urine (Random) 28.00 mg/dL Normal [facility] Comment on above: Result Comment: No r eference range established Performed By: #### U RMACRERAT #### [facility] [address] [place] [address] Microalbumin/Creatin ine Ratio Not performed Normal 0.0-30.0 [facility] Comment on above: Result Comment: PERF ORMED BY: [place] [address] PATHOLOGIST [employer] DRILLER RUBINA RICCI M.D. Performed By: #### U RMACRERAT #### [facility] [address] [place] [address] Microalbumin [Mass/volume] i n UrineOrdered By: Cathie Vargas on 02-23-2024 Albumin DL <= 20 mg/L (U) [Mass/Vol] mg/dL Normal 0.0-1.8 [facility] Comment on above: Performed By: #### U RMACRERAT #### [facility] [address] [place] [address] Urine microalbumin/creatinin e mass ratioOrdered By: Cathie Vargas on 02-23-2024 Albumin/Creatinine DL <= 20 mg/L (U) [Mass ratio] TNP [facility] Comment on above: Test not performed HbA1c HPLC (Bld) [Mass fract ion]on 12-13-2023 HbA1c (Bld) [Mass fraction] 9.9 % [facility] No Panel Informationon 12-12 Bedside Glucose 118 [facility] No Panel Informationon 09-28 Bedside Glucose 278 [facility] HbA1c HPLC (Bld) [Mass fract ion]on 07-28-2023 HbA1c (Bld) [Mass fraction] 10.3 % [facility] No Panel Informationon 07-27 Bedside Glucose 126 [facility] Basophils Auto (Bld) [#/Vol] on 07-12-2023 Basophils (Bld) [#/Vol] 0.0 10 3/uL 0.0-0.1 [facility] Basophils/100 WBC Auto (Bld) on 07-12-2023 Basophils/100 WBC (Bld) 0.5 % 0.2-2.0 [facility] Eosinophils/100 WBC Auto (Bl d)on 07-12-2023 Eosinophils/100 WBC (Bld) 1.5 % 0.9-7.0 [facility] Erythrocyte distribution wid th Auto (RBC) [Ratio]on 07-12-2023 Erythrocyte distribution width (RBC) [Ratio] 12.7 % 11.0-15.0 [facility] Estimated glomerular filtrat ion rate (GFR) non- Americanon 07-12-2023 GFR/1.73 sq M.predicted among non-blacks MDRD (S/P/Bld) [Vol rate/Area] mL/min/{1.73_m2} >=60 [facility] Hematocrit Auto (Bld) [Volum e fraction]on 07-12-2023 Hematocrit (Bld) [Volume fraction] 42.8 % 36.0-48.0 [facility] Hemoglobin [Mass/volume] in Bloodon 07-12-2023 Hemoglobin (Bld) [Mass/Vol] 14.3 g/dL 12.0-16.0 [facility] Laboratory - Chemistry and C hemistry - challengeon 07-12-2023 Calcium [Mass/Vol] 9.1 mg/dL 8.5-10.1 [facility] Chloride [Moles/Vol] 100 mmol/L 98-107 [facility] CO2 [Moles/Vol] 26.1 mmol/L 21.0-32.0 [facility] Creatinine [Mass/Vol] 0.78 mg/dL 0.55-1.02 [facility] GFR/1.73 sq M.predicted MDRD (S/P/Bld) [Vol rate/Area] mL/min/{1.73_m2} >=60 [facility] Glucose [Mass/Vol] 215 mg/dL 74-106 [facility] Potassium [Moles/Vol] 4.0 mmol/L 3.5-5.1 [facility] Sodium [Moles/Vol] 137 mmol/L 136-145 [facility] Urea nitrogen [Mass/Vol] 12.0 mg/dL 7.0-18.0 [facility] Urea nitrogen/Creatinine [Mass ratio] 15.4 mg/mg [facility] Laboratory - Hematology and Cell countson 07-12-2023 Immature granulocytes/100 WBC (Bld) 0.1 % 0.0-0.5 [facility] Leukocytes [#/volume] correc alma delia for nucleated erythrocytes in Blood by Automated counon 07-12-2023 WBC corrected for nucl RBC Auto (Bld) [#/Vol] 7.8 10 3/uL 4.0-11.0 [facility] Lymphocytes Auto (Bld) [#/Vo l]on 07-12-2023 Lymphocytes (Bld) [#/Vol] 2.7 10 3/uL 1.2-3.8 [facility] Lymphocytes/100 WBC Auto (Bl d)on 07-12-2023 Lymphocytes/100 WBC (Bld) 34.1 % 20.5-60.0 [facility] MCH Auto (RBC) [Entitic mass ]on 07-12-2023 MCH (RBC) [Entitic mass] 29.2 pg 26.7-34.0 [facility] MCHC Auto (RBC) [Mass/Vol]on 07-12-2023 MCHC (RBC) [Mass/Vol] 33.4 g/dL 29.9-35.2 [facility] MCV Auto (RBC) [Entitic vol] on 07-12-2023 MCV (RBC) [Entitic vol] 87.5 fL 81.0-99.0 [facility] Monocytes Auto (Bld) [#/Vol] on 07-12-2023 Monocytes (Bld) [#/Vol] 0.5 10 3/uL 0.3-0.8 [facility] Monocytes/100 WBC Auto (Bld) on 07-12-2023 Monocytes/100 WBC (Bld) 6.4 % 1.7-12.0 [facility] Neutrophils Auto (Bld) [#/Vo l]on 07-12-2023 Neutrophils (Bld) [#/Vol] 4.5 10 3/uL 1.4-6.5 [facility] Neutrophils/100 WBC Auto (Bl d)on 07-12-2023 Neutrophils/100 WBC (Bld) 57.4 % 43.0-75.0 [facility] No Panel Informationon 07-11 Eosinophils # (Auto) 0.1 10 3/uL 0.0-0.7 [facility] Immature Granulocyte # (Auto) 0.01 10 3/uL 0.00-0.03 [facility] Platelet mean volume Auto (B ld) [Entitic vol]on 07-12-2023 Platelet mean volume (Bld) [Entitic vol] 10.9 fL 9.5-13.5 [facility] Platelets Auto (Bld) [#/Vol] on 07-12-2023 Platelets (Bld) [#/Vol] 259 10 3/uL 150-450 [facility] RBC Auto (Bld) [#/Vol]on RBC (Bld) [#/Vol] 4.89 10 6/uL 4.20-5.40 [facility] Serum or plasma anion gap de terminationon 07-12-2023 Anion gap [Moles/Vol] 14.9 mmol/L [facility] Glucose - FINGER STICKon Glucose [Mass/Vol] 360 mg/dL [facility] Other CBC AUTO DIFFon 08-27-2022 BASO # 0.0 103/ul Normal 0.0-0.1 [facility] Comment on above: Performed By: #### C BC #### [facility] [address] [place] [address] Dr. Sarah Church Basophils/100 WBC (Bld) 0.5 % Normal 0.2-2.0 [facility] Comment on above: Performed By: #### C BC #### [facility] [address] [address] [address] Sarah Church EO # 0.2 103/ul Normal 0.0-0.7 [facility] Comment on above: Performed By: #### C BC #### [facility] [address] [place] [address] Dr. Sarah Church Eosinophils/100 WBC (Bld) 2.2 % Normal 0.9-7.0 [facility] Comment on above: Performed By: #### C BC #### [facility] [address] [place] [address] Dr. Sarah Church Erythrocyte distribution width (RBC) [Ratio] 12.5 % Normal 11.0-15.0 [facility] Comment on above: Performed By: #### C BC #### [facility] [address] [place] [address] Dr. Sarah Church Hematocrit (Bld) [Volume fraction] 44.1 % Normal 36.0-48.0 [facility] Comment on above: Performed By: #### C BC #### [facility] [address] [place] [address] Dr. Sarah Church Hemoglobin (Bld) [Mass/Vol] 15.1 g/dL Normal 12.0-16.0 [facility] Comment on above: Performed By: #### C BC #### [facility] [address] [place] [address] Dr. Sarah Church IG # 0.02 10e3/ul Normal 0.00-0.03 [facility] Comment on above: Performed By: #### C BC #### [facility] [address] [place] [address] Dr. Sarah Church IG % 0.2 % Normal 0.0-0.5 [facility] Comment on above: Performed By: #### C BC #### [facility] [address] [place] [address] Dr. Sarah Church LYMPH # 2.9 103/ul Normal 1.2-3.8 [facility] Comment on above: Performed By: #### C BC #### [facility] [address] [place] [address] Dr. Sarah Church Lymphocytes/100 WBC (Bld) 33.4 % Normal 20.5-60.0 [facility] Comment on above: Performed By: #### C BC #### [facility] [address] [place] [address] Dr. Sarah Church MANUAL DIFF REQ NO Normal [facility] Comment on above: Performed By: #### C BC #### [facility] [address] [address] [address] Sarah Church MCH (RBC) [Entitic mass] 29.1 pg Normal 26.7-34.0 [facility] Comment on above: Performed By: #### C BC #### [facility] [address] [place] [address] Dr. Sarah Church MCHC (RBC) [Mass/Vol] 34.2 g/dL Normal 29.9-35.2 [facility] Comment on above: Performed By: #### C BC #### [facility] [address] [place] [address] Dr. Sarah Church MCV (RBC) [Entitic vol] 85.0 fL Normal 81.0-99.0 [facility] Comment on above: Performed By: #### C BC #### [facility] [address] [place] [address] Dr. Sarah Church MONO # 0.6 103/ul Normal 0.3-0.8 [facility] Comment on above: Performed By: #### C BC #### [facility] [address] [place] [address] Dr. Sarah Church Monocytes/100 WBC (Bld) 6.8 % Normal 1.7-12.0 [facility] Comment on above: Performed By: #### C BC #### [facility] [address] [place] [address] Dr. Sarah Church NEUT # 4.9 103/ul Normal 1.4-6.5 [facility] Comment on above: Performed By: #### C BC #### [facility] [address] [place] [address] Dr. Sarah Church Neutrophils/100 WBC (Bld) 56.9 % Normal 43.0-75.0 [facility] Comment on above: Performed By: #### C BC #### [facility] [address] [place] [address] Dr. Sarah Church Platelet mean volume (Bld) [Entitic vol] 10.8 fL Normal 9.5-13.5 [facility] Comment on above: Performed By: #### C BC #### [facility] [address] [address] [address] Sarah Church PLT 276 103/ul Normal 150-450 [facility] Comment on above: Performed By: #### C BC #### [facility] [address] [address] [address] Sarah Church RBC 5.19 106/ul Normal 4.20-5.40 [facility] Comment on above: Performed By: #### C BC #### [facility] [address] [address] [address] Sarah Church WBC 8.6 103/ul Normal 4.0-11.0 [facility] Comment on above: Performed By: #### C BC #### [facility] [address] [place] [address] Dr. Sarah Church LIPID PROFILEon 08-27-2022 CHOL-HDL RATIO NORM SEE BELOW Normal [facility] Comment on above: Result Comment: 3.3 - 4.4 LOW RISK 4.4 - 7.1 AVERAGE RISK 7.1 - 11.0 MODERATE RISK >11.0 HIGH RISK Performed By: #### L IPID, CMP #### [facility] [address] [place] [address] Dr. Sarah Church Cholesterol [Mass/Vol] 110 mg/dL Normal <=200 [facility] Comment on above: Performed By: #### L IPID, CMP #### [facility] [address] [place] [address] Dr. Sarah Church Cholesterol in HDL [Mass/Vol] 33 mg/dL Critically low 40-60 [facility] Comment on above: Performed By: #### L IPID, CMP #### [facility] [address] [place] [address] Dr. Sarah Church Cholesterol in LDL [Mass/Vol] 58.0 mg/dL Normal [facility] Comment on above: Performed By: #### L IPID, CMP #### [facility] [address] [place] [address] Dr. Sarah Church Cholesterol.total/Ch olesterol in HDL [Mass ratio] 3.3 {ratio} Normal [facility] Comment on above: Performed By: #### L IPID, CMP #### [facility] [address] [address] [address] Sarah Church HDL NORMAL > or = 60 mg/dl - LOW CARDIOVASCULAR RISK <40 mg/dl - HIGH CARDIOVASCULAR RISK Normal [facility] Comment on above: Performed By: #### L IPID, CMP #### [facility] [address] [address] [address] Sarah Church LDL CALC NORMAL SEE BELOW Normal [facility] Comment on above: Result Comment: <100 mg/dl OPTIMAL 100 - 129 mg/dl NEAR OR ABOVE OPTIMAL 130 - 159 mg/dl BORDERLINE HIGH 160 - 189 mg/dl HIGH >190 mg/dl VERY HIGH Performed By: #### L IPID, CMP #### [facility] [address] [address] [address] Sarah Church Triglyceride [Mass/Vol] 95 mg/dL Normal <=150 [facility] Comment on above: Performed By: #### L IPID, CMP #### [facility] [address] [address] [address] Sarah Church VLDL CALC 19.0 mg/dL Normal [facility] Comment on above: Performed By: #### L IPID, CMP #### [facility] [address] [address] [address] Sarah Church PROF 14(COMP METB)on 023 Albumin [Mass/Vol] 3.3 g/dL Critically low 3.4-5.0 [facility] Comment on above: Performed By: #### L IPID, CMP #### [facility] [address] [address] [address] Sarah Church Albumin/Globulin [Mass ratio] 0.8 {ratio} Normal [facility] Comment on above: Performed By: #### L IPID, CMP #### [facility] [address] [address] [address] Sarah Church ALP [Catalytic activity/Vol] 100 U/L Normal 46-116 [facility] Comment on above: Performed By: #### L IPID, CMP #### [facility] [address] [address] [address] Sarah Church ALT [Catalytic activity/Vol] 74 U/L Critically high 14-59 [facility] Comment on above: Performed By: #### L IPID, CMP #### [facility] [address] [address] [address] Sarah Church Anion gap [Moles/Vol] 13.2 mmol/L Normal [facility] Comment on above: Performed By: #### L IPID, CMP #### [facility] [address] [address] [address] Sarah Church AST [Catalytic activity/Vol] 42 U/L Critically high 15-37 [facility] Comment on above: Performed By: #### L IPID, CMP #### [facility] [address] [address] [address] Sarah Church Bilirubin [Mass/Vol] 0.4 mg/dL Normal 0.2-1.0 [facility] Comment on above: Performed By: #### L IPID, CMP #### [facility] [address] [address] [address] Sarah Church Calcium [Mass/Vol] 9.2 mg/dL Normal 8.5-10.1 [facility] Comment on above: Performed By: #### L IPID, CMP #### [facility] [address] [address] [address] Sarah Church Chloride [Moles/Vol] 99 mmol/L Normal 98-107 [facility] Comment on above: Performed By: #### L IPID, CMP #### [facility] [address] [address] [address] Sarah Church CO2 [Moles/Vol] 30.4 mmol/L Normal 21.0-32.0 [facility] Comment on above: Performed By: #### L IPID, CMP #### [facility] [address] [address] [address] Sarah Church Creatinine [Mass/Vol] 0.78 mg/dL Normal 0.55-1.02 [facility] Comment on above: Performed By: #### L IPID, CMP #### [facility] [address] [address] [address] Sarah Church EGFR-AF CANADIAN >60 Normal >=60 [facility] Comment on above: Performed By: #### L IPID, CMP #### [facility] [address] [address] [address] Sarah Church EGFR-NON AF CANADIAN >60 Normal >=60 [facility] Comment on above: Performed By: #### L IPID, CMP #### [facility] [address] [address] [address] Sarah Church Globulin (S) [Mass/Vol] 4.0 g/dL Normal [facility] Comment on above: Performed By: #### L IPID, CMP #### [facility] [address] [address] [address] Sarah Church Glucose [Mass/Vol] 255 mg/dL Critically high 74-106 [facility] Comment on above: Performed By: #### L IPID, CMP #### [facility] [address] [address] [address] Sarah Church Potassium [Moles/Vol] 3.6 mmol/L Normal 3.5-5.1 [facility] Comment on above: Performed By: #### L IPID, CMP #### [facility] [address] [address] [address] Sarah Church Protein [Mass/Vol] 7.3 g/dL Normal 6.4-8.2 [facility] Comment on above: Performed By: #### L IPID, CMP #### [facility] [address] [address] [address] Sarah Church Sodium [Moles/Vol] 139 mmol/L Normal 136-145 [facility] Comment on above: Performed By: #### L IPID, CMP #### [facility] [address] [address] [address] Sarah Church Urea nitrogen [Mass/Vol] 8.0 mg/dL Normal 7.0-18.0 [facility] Comment on above: Performed By: #### L IPID, CMP #### [facility] [address] [address] [address] Sarah Church Urea nitrogen/Creatinine [Mass ratio] 10.3 mg/mg Normal [facility] Comment on above: Performed By: #### L IPID, CMP #### [facility] [address] [place], [place] [address] Dr. Sarah Church MG MAMM SCREEN 3D ROB CADon 07-20-2022 MG MAMM SCREEN 3D ROB CAD Patient: ZOILA RAMOS Exam Date: 07/20/2022 : 1970 Gender:F Ordering : DR SHAYY DELA CRUZ M.D. Admission #: [id number] Family : Order #: [id number] CLICK HERE TO VIEW EXAM RADIOLOGY REPORT PROCEDURE: MAMMOGRAM SCREENING 3D BILATERAL CAD COMPARISON: MAMMO ROB SCREEN W CAD DIG, 05/16/2012. INDICATIONS: Screening mammography Calculator Name NCI Breast Cancer Risk Assessment Tool 5 Year Breast Cancer Risk 1.20% Lifetime Breast Cancer Risk 10.80% Personal Breast Cancer No Personal Ovarian Cancer No Treatments None Family Cancers None LOCATION: [facility] BREAST COMPOSITION: Almost entirely fatty. FINDINGS: [...] M.D. on 07/21/2022 at 08:24 Normal [facility] PROF CHEM 8 (BAS METB)on Anion gap [Moles/Vol] 14.5 mmol/L Normal [facility] Comment on above: Performed By: #### B MP #### [facility] [address] [place], [place] [address] Dr. Sarah Church Calcium [Mass/Vol] 9.8 mg/dL Normal 8.5-10.1 [facility] Comment on above: Performed By: #### B MP #### [facility] [address] [address] [address] Sarah Church Chloride [Moles/Vol] 99 mmol/L Normal 98-107 [facility] Comment on above: Performed By: #### B MP #### [facility] [address] [address] [address] Sarah Church CO2 [Moles/Vol] 27.2 mmol/L Normal 21.0-32.0 [facility] Comment on above: Performed By: #### B MP #### [facility] [address] [address] [address] Sarah Church Creatinine [Mass/Vol] 0.80 mg/dL Normal 0.55-1.02 [facility] Comment on above: Performed By: #### B MP #### [facility] [address] [place] [address] Dr. Sarah Church EGFR-AF CANADIAN >60 Normal >=60 [facility] Comment on above: Performed By: #### B MP #### [facility] [address] [address] [address] Sarah Church EGFR-NON AF CANADIAN >60 Normal >=60 [facility] Comment on above: Performed By: #### B MP #### [facility] [address] [place] [address] Dr. Sarah Church Glucose [Mass/Vol] 458 mg/dL Critically high 74-106 [facility] Comment on above: Performed By: #### B MP #### [facility] [address] [address] [address] Sarah Church Potassium [Moles/Vol] 4.7 mmol/L Normal 3.5-5.1 [facility] Comment on above: Performed By: #### B MP #### [facility] [address] [address] [address] Sarah Church Sodium [Moles/Vol] 136 mmol/L Normal 136-145 [facility] Comment on above: Performed By: #### B MP #### [facility] [address] [address] [address] Sarah Church Urea nitrogen [Mass/Vol] 15.0 mg/dL Normal 7.0-18.0 [facility] Comment on above: Performed By: #### B MP #### [facility] [address] [address] [address] Sarah Church Urea nitrogen/Creatinine [Mass ratio] 18.8 mg/mg Normal [facility] Comment on above: Performed By: #### B MP #### [facility] [address] [address] [address] Sarah Church GLYCOHEMOGLOBIN A1Con 2022 ADA RECOMMENDATION SEE BELOW Normal [facility] Comment on above: Result Comment: ADA RECOMMENDED LIMIT 4.0 - 6.0 ADA THERAPEUTIC TARGET < 7.0 ACTION SUGGESTED > 7.0 Performed By: #### A 1C ####[facility] [address] [address]Dr. Sarah Church Glucose [Mass/Vol] 266 mg/dL Normal [facility] Comment on above: Performed By: #### A 1C ####[facility] [address] [address]Dr. Sarah Church HbA1c (Bld) [Mass fraction] 10.9 % Critically high 4.5-6.2 [facility] Comment on above: Performed By: #### A 1C ####[facility] [address] [address]Dr. Sarah Church XR HIP RT 2 3V [...] by: JAVAD ROB Date: 2022-04-06 21:15 Normal [facility] CBC AUTO DIFFon 11-05-2021 BASO # 0.1 103/ul Normal 0.0-0.1 [facility] Comment on above: Performed By: #### C BC #### [facility] [address] [address] [address] Sarah Church Basophils/100 WBC (Bld) 0.4 % Normal 0.2-2.0 [facility] Comment on above: Performed By: #### C BC #### [facility] [address] [address] [address] Sarah Church EO # 0.2 103/ul Normal 0.0-0.7 [facility] Comment on above: Performed By: #### C BC #### [facility] [address] [address] [address] Sarah Church Eosinophils/100 WBC (Bld) 1.3 % Normal 0.9-7.0 [facility] Comment on above: Performed By: #### C BC #### [facility] [address] [place] [address] Dr. Sarah Church Erythrocyte distribution width (RBC) [Ratio] 12.3 % Normal 11.0-15.0 [facility] Comment on above: Performed By: #### C BC #### [facility] [address] [place] [address] Dr. Sarah Church Hematocrit (Bld) [Volume fraction] 43.1 % Normal 36.0-48.0 [facility] Comment on above: Performed By: #### C BC #### [facility] [address] [address] [address] Sarah Church Hemoglobin (Bld) [Mass/Vol] 14.6 g/dL Normal 12.0-16.0 [facility] Comment on above: Performed By: #### C BC #### [facility] [address] [address] [address] Sarah Church IG # 0.04 10e3/ul Critically high 0.00-0.03 [facility] Comment on above: Performed By: #### C BC #### [facility] [address] [address] [address] Sarah Church IG % 0.3 % Normal 0.0-0.5 [facility] Comment on above: Performed By: #### C BC #### [facility] [address] [address] [address] Sarah Church LYMPH # 1.6 103/ul Normal 1.2-3.8 [facility] Comment on above: Performed By: #### C BC #### [facility] [address] [place] [address] Dr. Sarah Church Lymphocytes/100 WBC (Bld) 12.5 % Critically low 20.5-60.0 [facility] Comment on above: Performed By: #### C BC #### [facility] [address] [place] [address] Dr. Sarah Church MANUAL DIFF REQ NO Normal [facility] Comment on above: Performed By: #### C BC #### [facility] [address] [place] [address] Dr. Sarah Church MCH (RBC) [Entitic mass] 29.4 pg Normal 26.7-34.0 [facility] Comment on above: Performed By: #### C BC #### [facility] [address] [place] [address] Dr. Sarah Church MCHC (RBC) [Mass/Vol] 33.9 g/dL Normal 29.9-35.2 [facility] Comment on above: Performed By: #### C BC #### [facility] [address] [place] [address] Dr. Sarah Church MCV (RBC) [Entitic vol] 86.7 fL Normal 81.0-99.0 [facility] Comment on above: Performed By: #### C BC #### [facility] [address] [place] [address] Dr. Sarah Church MONO # 1.0 103/ul Critically high 0.3-0.8 [facility] Comment on above: Performed By: #### C BC #### [facility] [address] [place] [address] Dr. Sarah Church Monocytes/100 WBC (Bld) 7.7 % Normal 1.7-12.0 [facility] Comment on above: Performed By: #### C BC #### [facility] [address] [place], [place] [address] Dr. Sarah Church NEUT # 9.6 103/ul Critically high 1.4-6.5 [facility] Comment on above: Performed By: #### C BC #### [facility] [address] [place], [place] [address] Dr. Sarah Church Neutrophils/100 WBC (Bld) 77.8 % Critically high 43.0-75.0 [facility] Comment on above: Performed By: #### C BC #### [facility] [address] [address] [address] Sarah Church Platelet mean volume (Bld) [Entitic vol] 11.0 fL Normal 9.5-13.5 [facility] Comment on above: Performed By: #### C BC #### [facility] [address] [address] [address] Sarah Church PLT 220 103/ul Normal 150-450 [facility] Comment on above: Performed By: #### C BC #### [facility] [address] [address] [address] Sarah Chucrh RBC 4.97 106/ul Normal 4.20-5.40 [facility] Comment on above: Performed By: #### C BC #### [facility] [address] [address] [address] Sarah Church WBC 12.4 103/ul Critically high 4.0-11.0 [facility] Comment on above: Performed By: #### C BC #### [facility] [address] [id number] Sarah Church GROUP A STREP CULTUREon S. pyogenes Ag Ql (Unsp spec) Culture Observations: NEGATIVE FOR GROUP A STREPTOCOCCUS. Normal [facility] Comment on above: Performed By: #### G RASTCX, SSCRN ####[facility] [address] [place], [place] [address]HlDr. Sarah Church POINT OF CARE GLUCOSEon Glucose [Mass/Vol] 214 mg/dL Critically high 74-106 [facility] Comment on above: Performed By: #### P OCGLUC #### [facility] [address] [address] [address] Sarah Church STREPT SCREENon 11-05-2021 STREP SCREEN A Negative Normal NEGATIVE [facility] Comment on above: Performed By: #### G RASTCX, SSCRN ####[facility] [address] [address]Dr. Sarah Church CBC AUTO DIFFon 10-16-2021 BASO # 0.1 103/ul Normal 0.0-0.1 [facility] Comment on above: Performed By: #### C BC #### [facility] [address] [place] [address] Dr. Sarah Church Basophils/100 WBC (Bld) 0.8 % Normal 0.2-2.0 [facility] Comment on above: Performed By: #### C BC #### [facility] [address] [place] [address] Dr. Sarah Church EO # 0.3 103/ul Normal 0.0-0.7 [facility] Comment on above: Performed By: #### C BC #### [facility] [address] [place] [address] Dr. Sarah Church Eosinophils/100 WBC (Bld) 3.4 % Normal 0.9-7.0 [facility] Comment on above: Performed By: #### C BC #### [facility] [address] [place] [address] Dr. Sarah Church Erythrocyte distribution width (RBC) [Ratio] 12.6 % Normal 11.0-15.0 [facility] Comment on above: Performed By: #### C BC #### [facility] [address] [place] [address] Dr. Sarah Church Hematocrit (Bld) [Volume fraction] 45.4 % Normal 36.0-48.0 [facility] Comment on above: Performed By: #### C BC #### [facility] [address] [place] [address] Dr. Sarah Church Hemoglobin (Bld) [Mass/Vol] 15.0 g/dL Normal 12.0-16.0 [facility] Comment on above: Performed By: #### C BC #### [facility] [address] [place] [address] Dr. Sarah Church IG # 0.02 10e3/ul Normal 0.00-0.03 [facility] Comment on above: Performed By: #### C BC #### [facility] [address] [place] [address] Dr. Sarah Church IG % 0.2 % Normal 0.0-0.5 [facility] Comment on above: Performed By: #### C BC #### [facility] [address] [place] [address] Dr. Sarah Church LYMPH # 2.7 103/ul Normal 1.2-3.8 [facility] Comment on above: Performed By: #### C BC #### [facility] [address] [place] [address] Dr. Sarah Church Lymphocytes/100 WBC (Bld) 31.0 % Normal 20.5-60.0 [facility] Comment on above: Performed By: #### C BC #### [facility] [address] [place] [address] Dr. Sarah Church MANUAL DIFF REQ NO Normal [facility] Comment on above: Performed By: #### C BC #### [facility] [address] [place] [address] Dr. Sarah Church MCH (RBC) [Entitic mass] 29.3 pg Normal 26.7-34.0 [facility] Comment on above: Performed By: #### C BC #### [facility] [address] [place] [address] Dr. Sarah Church MCHC (RBC) [Mass/Vol] 33.0 g/dL Normal 29.9-35.2 [facility] Comment on above: Performed By: #### C BC #### [facility] [address] [place] [address] Dr. Sarah Church MCV (RBC) [Entitic vol] 88.7 fL Normal 81.0-99.0 [facility] Comment on above: Performed By: #### C BC #### [facility] [address] [address] [address] Sarah Church MONO # 0.6 103/ul Normal 0.3-0.8 [facility] Comment on above: Performed By: #### C BC #### [facility] [address] [address] [address] Sarah Church Monocytes/100 WBC (Bld) 6.5 % Normal 1.7-12.0 [facility] Comment on above: Performed By: #### C BC #### [facility] [address] [address] [address] Sarah Church NEUT # 5.0 103/ul Normal 1.4-6.5 [facility] Comment on above: Performed By: #### C BC #### [facility] [address] [place] [address] Dr. Sarah Church Neutrophils/100 WBC (Bld) 58.1 % Normal 43.0-75.0 [facility] Comment on above: Performed By: #### C BC #### [facility] [address] [place] [address] Dr. Sarah Church Platelet mean volume (Bld) [Entitic vol] 11.0 fL Normal 9.5-13.5 [facility] Comment on above: Performed By: #### C BC #### [facility] [address] [place] [address] Dr. Sarah Church PLT 226 103/ul Normal 150-450 [facility] Comment on above: Performed By: #### C BC #### [facility] [address] [place] [address] Dr. Sarah Church RBC 5.12 106/ul Normal 4.20-5.40 [facility] Comment on above: Performed By: #### C BC #### [facility] [address] [place] [address] Dr. Sarah Church WBC 8.6 103/ul Normal 4.0-11.0 [facility] Comment on above: Performed By: #### C BC #### [facility] [address] [place], [place] [address] Dr. Sarah Church GLYCOHEMOGLOBIN A1Con 2021 ADA RECOMMENDATION SEE BELOW Normal [facility] Comment on above: Result Comment: ADA RECOMMENDED LIMIT 4.0 - 6.0 ADA THERAPEUTIC TARGET < 7.0 ACTION SUGGESTED > 7.0 Performed By: #### A 1C ####[facility] [address] [id number][address] Sarah Church Glucose [Mass/Vol] 275 mg/dL Normal [facility] Comment on above: Performed By: #### A 1C ####[facility] [address] [id number] Church HbA1c (Bld) [Mass fraction] 11.2 % Critically high 4.5-6.2 [facility] Comment on above: Performed By: #### A 1C ####[facility] [address] [address]DrCoretta Church LIPID PROFILEon 10-16-2021 CHOL-HDL RATIO NORM SEE BELOW Normal [facility] Comment on above: Result Comment: 3.3 - 4.4 LOW RISK 4.4 - 7.1 AVERAGE RISK 7.1 - 11.0 MODERATE RISK >11.0 HIGH RISK Performed By: #### L IPID, CMP ####[facility] [address] [id number][address] Sarah Church Cholesterol [Mass/Vol] 159 mg/dL Normal <=200 [facility] Comment on above: Performed By: #### L IPID, CMP ####[facility] [address] [id number]. Sarah Church Cholesterol in HDL [Mass/Vol] 41 mg/dL Normal 40-60 [facility] Comment on above: Performed By: #### L IPID, CMP ####[facility] [address] [id number]. Sarah Church Cholesterol in LDL [Mass/Vol] 102.6 mg/dL Normal [facility] Comment on above: Performed By: #### L IPID, CMP ####[facility] [address] [id number]. Sarah Church Cholesterol.total/Ch olesterol in HDL [Mass ratio] 3.9 {ratio} Normal [facility] Comment on above: Performed By: #### L IPID, CMP ####[facility] [address] [id number]. Sarah Church HDL NORMAL > or = 60 mg/dl - LOW CARDIOVASCULAR RISK <40 mg/dl - HIGH CARDIOVASCULAR RISK Normal [facility] Comment on above: Performed By: #### L IPID, CMP ####[facility] [address] [id number]. Sarah Church LDL CALC NORMAL SEE BELOW Normal [facility] Comment on above: Result Comment: <100 mg/dl OPTIMAL 100 - 129 mg/dl NEAR OR ABOVE OPTIMAL 130 - 159 mg/dl BORDERLINE HIGH 160 - 189 mg/dl HIGH >190 mg/dl VERY HIGH Performed By: #### L IPID, CMP ####[facility] [address] [id number]. Sarah Church Triglyceride [Mass/Vol] 77 mg/dL Normal <=150 [facility] Comment on above: Performed By: #### L IPID, CMP ####[facility] [address] [id number]. Sarah Church VLDL CALC 15.4 mg/dL Normal [facility] Comment on above: Performed By: #### L IPID, CMP ####[facility] [address] [id number]. Sarah Church MICROALBUMIN, RAND URon 09-30 mALB 2.0 mg/L Normal <=30.0 [facility] Comment on above: Performed By: #### M ALBR #### [facility] [address] [place], [place] [address] Dr. Sarah Church PROF 14(COMP METB)on 022 Albumin [Mass/Vol] 3.5 g/dL Normal 3.4-5.0 [facility] Comment on above: Performed By: #### L IPID, CMP ####[facility] [address] [id number]. Sarah Church Albumin/Globulin [Mass ratio] 0.8 {ratio} Normal [facility] Comment on above: Performed By: #### L IPID, CMP ####[facility] [address] [id number]. Sarah Church ALP [Catalytic activity/Vol] 85 U/L Normal 46-116 [facility] Comment on above: Performed By: #### L IPID, CMP ####[facility] [address] [address]Dr. Sarah Church ALT [Catalytic activity/Vol] 59 U/L Normal 14-59 [facility] Comment on above: Performed By: #### L IPID, CMP ####[facility] [address] [address]Dr. Sarah Church Anion gap [Moles/Vol] 15.1 mmol/L Normal [facility] Comment on above: Performed By: #### L IPID, CMP ####[facility] [address] [address]Dr. Sarah Church AST [Catalytic activity/Vol] 32 U/L Normal 15-37 [facility] Comment on above: Performed By: #### L IPID, CMP ####[facility] [address] [address]Dr. Sarah Ranjit Bilirubin [Mass/Vol] 0.4 mg/dL Normal 0.2-1.0 [facility] Comment on above: Performed By: #### L IPID, CMP ####[facility] [address] [id number]. Sarah Ranjit Calcium [Mass/Vol] 9.0 mg/dL Normal 8.5-10.1 [facility] Comment on above: Performed By: #### L IPID, CMP ####[facility] [address] [address]Dr. Sarah Church Chloride [Moles/Vol] 102 mmol/L Normal 98-107 [facility] Comment on above: Performed By: #### L IPID, CMP ####[facility] [address] [address]Dr. Sarah Church CO2 [Moles/Vol] 30.2 mmol/L Normal 21.0-32.0 [facility] Comment on above: Performed By: #### L IPID, CMP ####[facility] [address] [address]Dr. Sarah Church Creatinine [Mass/Vol] 0.81 mg/dL Normal 0.55-1.02 [facility] Comment on above: Performed By: #### L IPID, CMP ####[facility] [address] [address]Dr. Sarah Church EGFR-AF CANADIAN >60 Normal >=60 [facility] Comment on above: Performed By: #### L IPID, CMP ####[facility] [id number] [place], [place] [address]Dr. Sarah Church EGFR-NON AF CANADIAN >60 Normal >=60 [facility] Comment on above: Performed By: #### L IPID, CMP ####[facility] [id number] [place], [place] [address]Dr. Sarah Church Globulin (S) [Mass/Vol] 3.9 g/dL Normal [facility] Comment on above: Performed By: #### L IPID, CMP ####[facility] [id number] [place], [place] [address]Dr. Sarah Church Glucose [Mass/Vol] 218 mg/dL Critically high 74-106 [facility] Comment on above: Performed By: #### L IPID, CMP ####[facility] [id number] [place] [address]Dr. Sarah Church Potassium [Moles/Vol] 4.3 mmol/L Normal 3.5-5.1 [facility] Comment on above: Performed By: #### L IPID, CMP ####[facility] [id number] [place], [place] [address]Dr. Sarah Church Protein [Mass/Vol] 7.4 g/dL Normal 6.4-8.2 [facility] Comment on above: Performed By: #### L IPID, CMP ####[facility] [address] [place], [place] [address]Gq. Sarah Church Sodium [Moles/Vol] 143 mmol/L Normal 136-145 [facility] Comment on above: Performed By: #### L IPID, CMP ####[facility] [id number] [place], [place] [address]Bm. Sarah Church Urea nitrogen [Mass/Vol] 14.0 mg/dL Normal 7.0-18.0 [facility] Comment on above: Performed By: #### L IPID, CMP ####[facility] [id number] [place], [place] [address]Cp. Sarah Church Urea nitrogen/Creatinine [Mass ratio] 17.2 mg/mg Normal [facility] Comment on above: Performed By: #### L IPID, CMP ####[facility] [id number] [place], [place] [address]Dp. Sarah Church Vital Signs Date Time Vital Sign Value Performing Clinician Facility 12-13-2024 13:07-0400 Body height 157.48 cm Shayy Dela Cruz MD Work Phone: [facility] 12-13-2024 13:07-0400 Diastolic blood pressure 79 mm[Hg] Shayy Dela Cruz MD Work Phone: [facility] 12-13-2024 13:07-0400 Heart rate 81 /min Shayy Dela Cruz MD Work Phone: [facility] 12-13-2024 13:07-0400 Respiratory rate 18 /min Shayy Dela Cruz MD Work Phone: [facility] 12-13-2024 13:07-0400 Systolic blood pressure 145 mm[Hg] Shayy Dela Cruz MD Work Phone: [facility] 08-23-2024 13:43-0400 Body height 157.48 cm Shayy Dela Cruz MD Work Phone: [facility] 08-23-2024 13:43-0400 Body mass index (BMI) [Ratio] 40 kg/m2 Shayy Dela Cruz MD Work Phone: [facility] 08-23-2024 13:43-0400 Body weight 99.33 kg Shayy Dela Cruz MD Work Phone: [facility] 08-23-2024 13:43-0400 Diastolic blood pressure 77 mm[Hg] Shayy Dela Cruz MD Work Phone: [facility] 08-23-2024 13:43-0400 Heart rate 89 /min Shayy Dela Cruz MD Work Phone: [facility] 08-23-2024 13:43-0400 Systolic blood pressure 169 mm[Hg] Shayy Dela Cruz MD Work Phone: [facility] 08-07-2024 13:09-0400 Body height 157.48 cm Shayy Dela Cruz MD Work Phone: [facility] 08-07-2024 13:09-0400 Diastolic blood pressure 74 mm[Hg] Shayy Dela Cruz MD Work Phone: [facility] 08-07-2024 13:09-0400 Heart rate 85 /min Shayy Dela Cruz MD Work Phone: [facility] 08-07-2024 13:09-0400 Respiratory rate 18 /min hSayy Dela Cruz MD Work Phone: [facility] 08-07-2024 13:09-0400 SaO2% (BldA) [Mass fraction] 96 % Shayy Dela Cruz MD Work Phone: [facility] 08-07-2024 13:09-0400 Systolic blood pressure 142 mm[Hg] Shayy Dela Cruz MD Work Phone: [facility] 06-14-2024 10:21-0500 Body height 157.5 cm Nacho Patiño MD Work Phone: [facility] 06-14-2024 10:21-0500 Body mass index (BMI) [Ratio] 38.59 kg/m2 Nacho Patiño MD Work Phone: [facility] 06-14-2024 10:21-0500 Body temperature 97.3 [degF] Nacho Patiño MD Work Phone: [facility] 06-14-2024 10:21-0500 Body weight 95.71 kg Nacho Patiño MD Work Phone: [facility] 06-14-2024 10:21-0500 Diastolic blood pressure 82 mm[Hg] Nacho Patiño MD Work Phone: [facility] 06-14-2024 10:21-0500 Heart rate 88 /min Nacho Patiño MD Work Phone: [facility] 06-14-2024 10:21-0500 SaO2% (BldA) [Mass fraction] 97 % Nacho Patiño MD Work Phone: [facility] 06-14-2024 10:21-0500 Systolic blood pressure 136 mm[Hg] Nacho Patiño MD Work Phone: [facility] 05-30-2024 10:48-0500 Body height 157.48 cm [facility] 05-30-2024 10:48-0500 Body mass index (BMI) [Ratio] 38.5 kg/m2 [facility] 05-30-2024 10:48-0500 Body weight 95.7 kg [facility] 05-30-2024 10:48-0500 Diastolic blood pressure 77 mm[Hg] [facility] 05-30-2024 10:48-0500 Heart rate 80 /min [facility] 05-30-2024 10:48-0500 Systolic blood pressure 133 mm[Hg] [facility] 02-23-2024 13:23-0400 Body height 157.48 cm [facility] 02-23-2024 13:23-0400 Body mass index (BMI) [Ratio] 38 kg/m2 [facility] 02-23-2024 13:23-0400 Body weight 94.37 kg [facility] 02-23-2024 13:23-0400 Diastolic blood pressure 78 mm[Hg] [facility] 02-23-2024 13:23-0400 Heart rate 75 /min [facility] 02-23-2024 13:23-0400 Respiratory rate 18 /min [facility] 02-23-2024 13:23-0400 SaO2% (BldA) [Mass fraction] 97 % [facility] 02-23-2024 13:23-0400 Systolic blood pressure 170 mm[Hg] [facility] 12-13-2023 13:03-0400 Body height 157.48 cm [facility] 12-13-2023 13:03-0400 Body mass index (BMI) [Ratio] 37.1 kg/m2 [facility] 12-13-2023 13:03-0400 Body weight 92.07 kg [facility] 12-13-2023 13:03-0400 Diastolic blood pressure 86 mm[Hg] [facility] 12-13-2023 13:03-0400 Heart rate 78 /min [facility] 12-13-2023 13:03-0400 Respiratory rate 18 /min [facility] 12-13-2023 13:03-0400 SaO2% (BldA) [Mass fraction] 96 % [facility] 12-13-2023 13:03-0400 Systolic blood pressure 153 mm[Hg] [facility] 12-05-2023 11:24-0400 Body height 157.48 cm [facility] 12-05-2023 11:24-0400 Body mass index (BMI) [Ratio] 36.9 kg/m2 [facility] 12-05-2023 11:24-0400 Body weight 91.62 kg [facility] 12-05-2023 11:24-0400 Diastolic blood pressure 75 mm[Hg] [facility] 12-05-2023 11:24-0400 Heart rate 80 /min [facility] 12-05-2023 11:24-0400 Systolic blood pressure 133 mm[Hg] [facility] 09-29-2023 13:44-0400 Diastolic blood pressure 76 mm[Hg] [facility] 09-29-2023 13:44-0400 Systolic blood pressure 130 mm[Hg] [facility] 09-29-2023 13:19-0400 Body height 157.48 cm [facility] 09-29-2023 13:19-0400 Body mass index (BMI) [Ratio] 38.7 kg/m2 [facility] 09-29-2023 13:19-0400 Body weight 95.9 kg [facility] 09-29-2023 13:19-0400 Heart rate 89 /min [facility] 09-29-2023 13:19-0400 Respiratory rate 18 /min [facility] 09-29-2023 13:19-0400 SaO2% (BldA) [Mass fraction] 98 % [facility] 09-06-2023 11:08-0400 Body height 157.48 cm [facility] 09-06-2023 11:08-0400 Body mass index (BMI) [Ratio] 37.6 kg/m2 [facility] 09-06-2023 11:08-0400 Body weight 93.44 kg [facility] 09-06-2023 11:08-0400 Diastolic blood pressure 72 mm[Hg] [facility] 09-06-2023 11:08-0400 Heart rate 89 /min [facility] 09-06-2023 11:08-0400 Systolic blood pressure 127 mm[Hg] [facility] 08-24-2023 15:08-0400 Body height 157.48 cm [facility] 08-24-2023 15:08-0400 Body mass index (BMI) [Ratio] 37.5 kg/m2 [facility] 08-24-2023 15:08-0400 Body weight 93.21 kg [facility] 08-19-2023 10:43-0400 Body height 157.48 cm MD Shayy Dela Cruz Work Phone: [facility] 08-19-2023 10:43-0400 Body mass index (BMI) [Ratio] 37.5 kg/m2 MD Shayy Dela Cruz Work Phone: [facility] 08-19-2023 10:43-0400 Body weight 93.09 kg MD Shayy Dela Cruz Work Phone: [facility] 08-19-2023 10:43-0400 Diastolic blood pressure 79 mm[Hg] MD Shayy Dela Cruz Work Phone: [facility] 08-19-2023 10:43-0400 Heart rate 83 /min MD Shayy Dela Cruz Work Phone: [facility] 08-19-2023 10:43-0400 Systolic blood pressure 135 mm[Hg] MD Shayy Dela Cruz Work Phone: [facility] 07-28-2023 14:22-0400 Body height 157.48 cm MD Shayy Dela Cruz Work Phone: [facility] 07-28-2023 14:22-0400 Body mass index (BMI) [Ratio] 37.6 kg/m2 MD Shayy Dela Cruz Work Phone: [facility] 07-28-2023 14:22-0400 Body weight 93.44 kg MD Shayy Dela Cruz Work Phone: [facility] 07-28-2023 14:22-0400 Diastolic blood pressure 84 mm[Hg] MD Shayy Dela Cruz Work Phone: [facility] 07-28-2023 14:22-0400 Heart rate 83 /min MD Shayy Dela Cruz Work Phone: [facility] 07-28-2023 14:22-0400 Respiratory rate 18 /min MD Shayy Dela Cruz Work Phone: [facility] 07-28-2023 14:22-0400 SaO2% (BldA) [Mass fraction] 97 % MD Shayy Dela Cruz Work Phone: [facility] 07-28-2023 14:22-0400 Systolic blood pressure 140 mm[Hg] MD Shayy Dela Cruz Work Phone: [facility] 07-19-2023 10:57-0400 Body height 157.48 cm MD Shayy Dela Cruz Work Phone: [facility] 07-19-2023 10:57-0400 Body mass index (BMI) [Ratio] 37.1 kg/m2 MD Shayy Dela Cruz Work Phone: [facility] 07-19-2023 10:57-0400 Body weight 92.07 kg MD Shayy Dela Cruz Work Phone: [facility] 07-19-2023 10:57-0400 Diastolic blood pressure 68 mm[Hg] MD Shayy Dela Cruz Work Phone: [facility] 07-19-2023 10:57-0400 Heart rate 89 /min MD Shayy Dela Cruz Work Phone: [facility] 07-19-2023 10:57-0400 Systolic blood pressure 132 mm[Hg] MD Shayy Dela Cruz Work Phone: [facility] 05-25-2023 11:00-0500 Body height 157.48 cm Cathie Scally Other [facility] 05-25-2023 11:00-0500 Body mass index (BMI) [Ratio] 37.23 kg/m2 Cathie Scally Other [facility] Other 05-25-2023 11:00-0500 Body weight 92.35 kg Cathie Scally Other [facility] 05-25-2023 11:00-0500 Diastolic blood pressure 71 mm[Hg] Cathie Scally Other [facility] 05-25-2023 11:00-0500 Respiratory rate 18 /min Cathie Scally Other [facility] Other 05-25-2023 11:00-0500 SaO2% (BldA) [Mass fraction] 95 % Cathie Scally Other [facility] Other 05-25-2023 11:00-0500 Systolic blood pressure 139 mm[Hg] Cathie Scally Other [facility] 04-15-2023 11:00-0500 Body height 157.48 cm Shayy Dela Cruz Other [facility] 04-15-2023 11:00-0500 Body mass index (BMI) [Ratio] 37.49 kg/m2 Shayy Dela Cruz Other [facility] Other 04-15-2023 11:00-0500 Body weight 92.99 kg Shayy Dela Cruz Other [facility] Other 04-15-2023 11:00-0500 Body weight 92.98 kg MD Shayy Dela Cruz Work Phone: [facility] 04-15-2023 11:00-0500 Diastolic blood pressure 84 mm[Hg] Shayy Dela Cruz Other [facility] 04-15-2023 11:00-0500 Systolic blood pressure 142 mm[Hg] Shayy Dela Cruz Other [facility] 06-22-2022 13:30-0500 Body height 157.48 cm Shayy Dela Cruz Other [facility] Other 06-22-2022 13:30-0500 Body mass index (BMI) [Ratio] 36.94 kg/m2 Shayy Dela Cruz Other [facility] Other 06-22-2022 13:30-0500 Body weight 91.63 kg Shayy Dela Cruz Other [facility] Other 06-22-2022 13:30-0500 Diastolic blood pressure 74 mm[Hg] Shayy Dela Cruz Other [facility] Other 06-22-2022 13:30-0500 SaO2% (BldA) [Mass fraction] 97 % Shayy Dela Cruz Other [facility] Other 06-22-2022 13:30-0500 Systolic blood pressure 112 mm[Hg] Shayy Dela Cruz Other [facility] Other Encounters Encounter Date Encounter Type Care Provider Facility Start: 12-13-2024 End: 12-13-2024 ambulatory Shayy Dlea Cruz MD Work Phone: [facility] Work Phone: Start: 12-13-2024 End: 12-13-2024 Patient encounter procedure Cathie Vargas [facility] Work Phone: Start: 08-23-2024 End: 08-23-2024 ambulatory Shayy Dela Cruz MD Work Phone: [facility] Work Phone: Start: 08-23-2024 End: 08-23-2024 Patient encounter procedure Shayy Dela Cruz MD Work Phone: [facility] Work Phone: Start: 08-20-2024 Non-patient / Non-visit Shayy Dela Cruz MD Work Phone: [facility] Work Phone: Start: 08-07-2024 End: 08-07-2024 ambulatory Shayy Dela Cruz MD Work Phone: [facility] Work Phone: Start: 08-07-2024 End: 08-07-2024 Patient encounter procedure Shayy Dela Cruz MD Work Phone: [facility] Work Phone: Start: 07-19-2024 Non-patient / Non-visit Shayy Dela Cruz MD Work Phone: [facility] Work Phone: Start: 07-05-2024 End: 07-05-2024 ambulatory Shayy Dela Cruz MD Work Phone: [facility] Work Phone: Start: 07-05-2024 End: 07-05-2024 Departed Referred Shayy Dela Cruz MD Work Phone: [facility] Start: 06-21-2024 Non-patient / Non-visit Shayy Dela Cruz MD Work Phone: [facility] Work Phone: Start: 06-20-2024 Non-patient / Non-visit Shayy Dela Cruz MD Work Phone: [facility] Work Phone: Start: 06-19-2024 End: 06-19-2024 ambulatory [facility] Start: 06-19-2024 Non-patient / Non-visit Shayy Dela Cruz MD Work Phone: [facility] Work Phone: Start: 06-14-2024 End: 06-14-2024 Office outpatient new 30 minutes Nacho Patiño MD Work Phone: [facility] Comment on above: 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[facility]) (Primary Dx) Start: 06-14-2024 End: 06-14-2024 ambulatory [facility] Start: 06-13-2024 Non-patient / Non-visit Shayy Dela Cruz MD Work Phone: [facility] Work Phone: Start: 06-12-2024 Non-patient / Non-visit Shayy Dela Cruz MD Work Phone: [facility] Work Phone: Start: 06-07-2024 Non-patient / Non-visit Shayy Dela Cruz MD Work Phone: [facility] Work Phone: Start: 06-01-2024 Non-patient / Non-visit Shayy Dela Cruz MD Work Phone: [facility] Work Phone: Start: 05-30-2024 Patient encounter status Shayy Dela Cruz MD Work Phone: [facility] Start: 05-30-2024 End: 05-30-2024 ambulatory [facility] Work Phone: Start: 05-30-2024 End: 05-30-2024 Encounter for general adult medical examination without abnormal findings Shayy Dela Cruz MD Work Phone: [facility] Start: 05-30-2024 End: 05-30-2024 Patient encounter procedure [facility] Work Phone: Start: 05-24-2024 End: 05-24-2024 ambulatory [facility] Work Phone: Start: 05-24-2024 End: 05-24-2024 Patient encounter procedure [facility] Work Phone: Start: 05-16-2024 Non-patient / Non-visit [facility] Work Phone: Start: 05-07-2024 Non-patient / Non-visit [facility] Work Phone: Start: 04-19-2024 End: 04-19-2024 Patient encounter procedure [facility] Work Phone: Start: 02-28-2024 Non-patient / Non-visit [facility] Work Phone: Start: 02-23-2024 End: 02-23-2024 ambulatory Cathie Vargas [facility] Work Phone: Start: 02-23-2024 End: 02-23-2024 Patient encounter procedure APPLICATION SUPPORT ENGINEER Cathie Vargas Work Phone: [facility] Work Phone: Start: 02-23-2024 End: 02-23-2024 ambulatory [facility] Work Phone: Start: 02-23-2024 End: 02-23-2024 Patient encounter procedure [facility] Work Phone: Start: 01-17-2024 End: 01-17-2024 ambulatory [facility] Work Phone: Start: 01-17-2024 End: 01-17-2024 Patient encounter procedure [facility] Work Phone: Start: 12-13-2023 End: 12-13-2023 ambulatory [facility] Work Phone: Start: 12-13-2023 End: 12-13-2023 Patient encounter procedure [facility] Work Phone: Start: 12-05-2023 End: 12-05-2023 ambulatory [facility] Work Phone: Start: 12-05-2023 End: 12-05-2023 Patient encounter procedure [facility] Work Phone: Start: 11-07-2023 End: 11-07-2023 ambulatory [facility] Work Phone: Start: 11-07-2023 End: 11-07-2023 Patient encounter procedure [facility] Work Phone: Start: 09-29-2023 End: 09-29-2023 ambulatory [facility] Work Phone: Start: 09-29-2023 End: 09-29-2023 Patient encounter procedure [facility] Work Phone: Start: 09-06-2023 End: 09-06-2023 ambulatory [facility] Work Phone: Start: 09-06-2023 End: 09-06-2023 Patient encounter procedure [facility] Work Phone: Start: 08-24-2023 End: 08-24-2023 ambulatory [facility] Work Phone: Start: 08-24-2023 End: 08-24-2023 Patient encounter procedure [facility] Work Phone: Start: 08-19-2023 End: 08-19-2023 ambulatory MD Shayy Dela Cruz Work Phone: [facility] Work Phone: Start: 08-19-2023 End: 08-19-2023 Patient encounter procedure MD Shayy Dela Cruz Work Phone: [facility] Work Phone: Start: 07-28-2023 End: 07-28-2023 ambulatory MD Shayy Dela Cruz Work Phone: [facility] Work Phone: Start: 07-28-2023 End: 07-28-2023 Patient encounter procedure MD Shayy Dela Cruz Work Phone: [facility] Work Phone: Start: 07-19-2023 End: 07-19-2023 ambulatory MD Shayy Dela Cruz Work Phone: [facility] Work Phone: Start: 07-19-2023 End: 07-19-2023 Patient encounter procedure MD Shayy Dela Cruz Work Phone: [facility] Work Phone: Start: 07-12-2023 Non-patient / Non-visit MD Qi Dela Cruz Work Phone: [facility] Work Phone: Start: 06-14-2023 End: 06-14-2023 ambulatory MD Shayy Dela Cruz Work Phone: [facility] Work Phone: Start: 06-14-2023 End: 06-14-2023 Patient encounter procedure MD Shayy Dela Cruz Work Phone: [facility] Work Phone: Start: 06-06-2023 End: 06-06-2023 ambulatory Shayy Dela Cruz Other [facility] Other Start: 06-06-2023 Telephone encounter Sahyy Dela Cruz [facility] Start: 05-25-2023 [facility] visit new patient Cathie Sheikh y [facility] Start: 05-25-2023 End: 05-25-2023 ambulatory MD Shayy Dela Cruz Work Phone: [facility] Other Start: 05-25-2023 End: 05-25-2023 Discharged Recurring MD [facility] Work [facility] Start: 05-25-2023 Registered Recurring MD Shayy Dela Cruz Work Phone: [facility] Work Phone: Start: 05-25-2023 End: 05-25-2023 Patient encounter procedure MD Shayy Dela Cruz Work Phone: [facility] Start: 05-12-2023 End: 05-12-2023 ambulatory Shayy Dela Cruz Other [facility] Other Start: 05-12-2023 Telephone encounter Shayy Dela Cruz [facility] Start: 05-10-2023 End: 05-10-2023 ambulatory Shayy Dela Cruz Other [facility] Other Start: 05-10-2023 Telephone encounter Shayy Dela Cruz [facility] Start: 04-22-2023 End: 04-22-2023 ambulatory Shayy Dela Cruz Other [facility] Other Start: 04-22-2023 Telephone encounter Shayy Dela Cruz [facility] Start: 04-20-2023 End: 04-20-2023 ambulatory Lynne Hernandez Other [facility] Other Start: 04-20-2023 Telephone encounter Lynne Hernandez [facility] Start: 04-18-2023 End: 04-18-2023 ambulatory Lynne Hernandez Other [facility] Other Start: 04-18-2023 Telephone encounter Lynne Hernandez [facility] Start: 04-15-2023 End: 04-15-2023 ambulatory Shayy Dela Cruz Other [facility] Other Start: 04-15-2023 Office outpatient vi sit 15 minutes Shayy Dela Cruz [facility] Start: 04-15-2023 End: 04-15-2023 Patient encounter procedure MD Shayy Dela Cruz Work Phone: [facility] Work Phone: Start: 04-06-2023 End: 04-06-2023 ambulatory Shayy Dela Cruz Other [facility] Other Start: 04-06-2023 Telephone encounter Shayy Dela Cruz [facility] Start: 02-25-2023 End: 02-25-2023 ambulatory Shayy Dela Cruz Other [facility] Other Start: 02-25-2023 Telephone encounter Shayy Dela Cruz [facility] Start: 10-29-2022 End: 10-29-2022 ambulatory Shayy Dela Cruz Other [facility] Other Start: 10-29-2022 Telephone encounter Shayy Dela Cruz [facility] Start: 08-27-2022 End: 08-28-[address] SHAYY DELA CRUZ Facility:[facility] Start: 07-20-2022 End: 07-21-[address] SHAYY DELA CRUZ Facility:[facility] Start: 07-19-2022 End: 07-19-2022 ambulatory Shayy Dela Cruz Other [facility] Other Start: 07-19-2022 Telephone [facility] [facility] Start: 07-12-2022 End: 07-13-[address] SHAYY DELA CRUZ Facility:[facility]1 Start: 07-05-2022 End: 07-05-2022 ambulatory Shayy Dela Cruz Other [facility] Other Start: 07-05-2022 Telephone encounter Shayy Dela Cruz [facility] Start: 06-28-2022 End: 06-28-2022 ambulatory Shayy Dela Cruz Other [facility] Other Start: 06-28-2022 Telephone encounter Shayy Dela Cruz [facility] Start: 06-22-2022 End: 06-22-2022 ambulatory Shayy Dela Cruz Other [facility] Other Start: 06-22-2022 Office outpatient vi sit 15 minutes Shayy Dela Cruz [facility] Start: 05-27-2022 End: 05-27-2022 ambulatory Shayy Dela Cruz Other [facility] Other Start: 05-27-2022 Telephone encounter Shayy Dela Cruz [facility] Start: 05-19-2022 End: 05-20-[address] SAHYY DELA CRUZ Facility:[facility] Start: 04-14-2022 End: 04-15-2022 ambulatory JORDYN BRUCE Facility:[facility] Start: 04-06-2022 End: 04-07-[address] SHAYY DELA CRUZ Facility:[facility] Start: 01-11-2022 End: 01-12-[address] SHAYY DELA CRUZ Facility:[facility] Start: 11-05-2021 End: 11-05-[address] SHIRIN Hitchcock Facility:[facility] Start: 10-16-2021 End: 10-17-[address] SHAYY DELA CRUZ Facility:[facility] Start: 05-10-2017 End: 05-11-2017 Ambulatory DEFAULT PHYSICIAN Facility:[facility] Start: 05-05-2017 End: 05-06-2017 Ambulatory DEFAULT PHYSICIAN Facility:[facility] Procedures Date Procedure Procedure Detail Performing Clinician History of amputatio n of lesser toe H/O amputation of lesser toe Shayy Dela Cruz MD Work Phone: Comment on above: left foot Plan of Treatment Date Care Activity Detail Author Start: 01-01-2024 Influenza vaccination Influenza Vaccine [facility] Start: 01-15-2022 Administration of varicella zoster vaccine Zoster (Shingles) Vaccine (1 of 2) [facility] Start: 01-15-1993 Screening for malignant neoplasm of cervix Pap Smear [facility] Start: 01-15-1991 DTaP,Tdap and Td Vaccines (1 - Tdap) DTaP,Tdap and Td Vaccines (1 - Tdap) [facility] Start: 01-15-1990 Adult BMI Screening Adult BMI Screening [facility] Start: 1984 Depression Screening Depression Screening [facility] Start: 1984 Tobacco Screening Tobacco Screening [facility] Comprehensive metabo lic 2000 panel - Serum or Plasma [facility] MG Breast - bilatera l Screening [facility] Immunizations Immunization Date Immunization Notes Care Provider Fa cility 02-01-2022 influenza virus vaccine, split virus (incl. purified surface antigen) Shayy Dela Cruz Other [facility] Other 02-01-2022 influenza virus vaccine, unspecified formulation MD Shayy Dela Cruz Work Phone: [facility] Payers Date Payer Category Payer Medicare HMO [employer]ICARE [id number] 2017 Medicaid [place]ICA[place] [id number] 2017 Unknown [id number] 1972 Unknown [id number] 1972 Unknown [id number] [id number] 1972 Unknown [id number] [id number] 1972 Unknown [id number] [id number] 1972 Unknown [id number] [id number] 1972 Unknown [id number] [id number] 1972 Unknown [id number] [id number] 1972 Unknown [id number] [id number] 1972 Unknown [id number] [id number] 1972 Unknown [id number] [id number] 1957 Medicaid [id number] [id number] 1957 Medicare [id number] Medicare Medicare [id number] Unknown Social History Date Type Detail Facility Unknown if ever smoked [facility] Other Start: 06-14-2024 Sex Assigned At [facility] Other Start: 1970 Sex Assigned At Female [facility] Start: 07-19-2023 End: 05-25-2024 Tobacco smoking status NHIS Never smoked tobacco (finding) [facility] Start: 05-24-2024 End: 08-23-2024 Sex Female (finding) [facility] Start: 06-14-2024 Tobacco use and exposure Smokeless tobacco non-user [facility] Start: 06-14-2024 Alcoholic beverage intake Lifetime non-drinker (finding) [facility] Start: 06-14-2024 History of Social function [facility] Within the past 12 months we worried whether our food would run out before we got money to buy more. Never [facility] Start: 1970 Sex assigned at Not on file [facility] NEGATED: Highlighted row [facility] Medical Equipment Procedure Code Equipment Code Equipment [...] scheduled for 06/21/[address] Bruce at [facility]. She had EKG, CXR, and labs [...] scheduled for 06/21/[address] Bruce at [facility]. She had EKG, CXR, and labs [...] Active Problem List Diagnosis Coronary arteriosclerosis in [place] artery Old myocardial infarction Sinusitis Type 1 [...] sized. (more content not included)... [facility] 06-14-2024 Evaluation + Plan note Associated Problem(s): [...] amputation by podiatry and risk factors modification. [facility] 06-14-2024 Miscellaneous Notes Associated Problem(s): Gangrene of toe of left foot ([facility]) Osteomyelitis and gangrenous changes of the [...] risk factors modification. documented in this encounter [facility] 06-14-2024 History of Presen t illness [...] Past Medical History: Diagnosis Date Diabetes mellitus ([facility]) Past Surgical History: No past [...] Interpersonal Safety: Unknown (06/23/2023) Re[facility] from [facility] Safety & Environment Fear of Current or [...] visit: Gangrene of toe of left foot ([facility]) Nacho Patiño MD, SELMA, RPVI, FSVS, FACS [facility] [employer] [facility] This note was created with the assistance of a speech recognition program. While intending to generate a timely document that accurately reflects the content of the visit, no guarantee can be provided that every grammatical or spelling mistake has been or will be identified or corrected. Thank you for your understanding. documented in this encounter [facility] 05-30-2024 Evaluation note Diagnosis Onset Date Resolution Colon cancer screening acute [facility] 2024 10:42am Long-term insulin use acute Nic [...] 1:05pm Vitamin D deficiency acute 2024 1:05pm [facility] Work Phone: 1(169) 989-265001-23-2025 Evaluation note* Diagnosis Onset Date Resolution Status [...] 1:05pm Vitamin D deficiency acute 2024 1:05pm [facility] Work Phone: 1(488) 586-826412-19-2024 Evaluation note* Diagnosis Onset Date Resolution Status Admit Date Type 2 diabetes mellitus acute April 19, 2024 2:03pm [facility] Work Phone: 1(146) 167-660712-19-2024 Evaluation note* Diagnosis Onset Date Resolution Status Admit Date Type 2 diabetes mellitus acute April 19, 2024 2:03pm Type 2 diabetes mellitus acute May 24, 2024 12:54pm [facility] Work Phone: 1(856) 701-464312-19-2024 Evaluation note* Diagnosis Onset Date Resolution Status Admit Date Type 2 diabetes mellitus acute April 19, 2024 2:03pm Type 2 diabetes mellitus acute May 24, 2024 12:54pm Colon cancer screening acute [place] 2024 10:42am Long-term insulin use acute May 10:42am Type 2 diabetes mellitus acute May 30, 2024 10:42am Wellness examination acute Ge[place] 2024 10:42am [facility] Work Phone: 1(464) 705-354902-05-2024 Evaluation note* Encounter Date Diagnosis Assessment Notes Treatment Notes Treatment Clinical Notes Jun, Controlled type 2 diabetes mellitus with hyperglycemia, unspecified whether buttermaker helper insulin use (ICD-10 - E11.65) [facility] Other 01-24-2024 Evaluation note* Encounter Date Diagnosis [...] sensor sample and an [employer] [place]. She was taught how to use the [...] the patient by Nguyễn Norwood RN, [facility]. [facility] Other 12-15-2023 Evaluation note* Encounter Date Diagnosis Assessment Notes Treatment Notes Treatment Clinical Notes Apr, Type 2 diabetes mellitus with hyperglycemia (ICD-10 - E11.65) Rx handwritten for diabetic shoes. Pt agrees to referral to specialty clinic. Continue present meds and discussed healthy diet in meantime. Apr, retirement (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 of insulin (ICD-10 - Z79.4) [facility] Other 02-21-2023 Evaluation note* Encounter Date Diagnosis [...] Z12.31) Zoila will call for an appt [facility] Other 12-15-2022 NotePROCEDURE: XR FOOT LT MIN [...] disease. Electronically authenticated by: NARINDER Nassar: 2022-04-15 06:08[facility]09-12-2022 NotePROCEDURE: XR TOES RT MIN 2 V HISTORY: Pain of toe of right foot ; first toe pain following injury COMPARISON: None. FINDINGS: BONES:No fracture, acute abnormality, or significant arthropathy. SOFT TISSUES:No visible soft tissue swelling. EFFUSION:None visible. OTHER: Negative. IMPRESSION: 1. No acute bone abnormality. 2. Mild degenerative joint disease. Electronically authenticated by: NARINDER LAN Date: 2022-01-11 18:48[facility] N[facility]* Chief Complaint 3 Month Follow Up Referral Dr. Negro LAGUERRE download [facility] Work Phone: chief complaint+Reason for visit Narrative* Chief Complaint 3 Month Follow Up Referral Dr. Negro LAGUERRE download Reason for Visit Type 2 diabetes holli [facility] Work Phone: chief complaint+Reason for visit Narrative* Chief Complaint Referral Dr. Negro LAGUERRE download 3 Month Check up Reason for Visit Type 2 diabetes holli [facility] Work Phone: chief complaint+Reason for visit Narrative* Chief Complaint Referral Dr. Negro LAGUERRE download 3 Month Check up amrik reader Reason for Visit Type 2 diabetes holli itus Right wrist fracture Type 2 diabetes mellitus [facility] Work Phone: Chivu complaint+Reason for visit Narrative* Chief Complaint Referral Dr. Negro LAGUERRE download 3 Month Check up amrik reader Gastroesophageal reflux disease (GERD) Reason for Visit Type 2 diabetes holli itus Right wrist fracture Type 2 diabetes mellitus BMI 37.0-37.9, adult Dietary counseling and surveillance History of myocardial infarction HTN (hypertension) Hyperlipidemia Long-term insulin use Type 2 diabetes mellitus Vitamin D deficiency Gastroesophageal reflux disease [facility] Work Phone: Evaluation noteNo InformationNort [facility] Other Evaluation noteNo assessment information available [facility] Work Phone: Evaluation note* Diagnosis Onset Date Resolution Status Type 2 diabetes mellitus acu te [facility] Work Phone: Evaluation note* Diagnosis Onset Date Resolution Status Type 2 diabetes mellitus acu te Right wrist fracture acute Type 2 diabetes mellitus acu te [facility] Work Phone: evaluation note* Diagnosis [...] D deficiency acute Gastroesophageal reflux disease acute [facility] Work Phone: evaluation note* Diagnosis [...] acute Type 2 diabetes mellitus acu te [facility] Work Phone: evaluation note* Diagnosis [...] acute Type 2 diabetes mellitus acu te [facility] Work Phone: evaluation note* Diagnosis [...] acute Type 2 diabetes mellitus acu te [facility] Work Phone: Evaluation note* Diagnosis [...] te Screening mammogram for breast cancer acute [facility] Work Phone: Evaluation note* Diagnosis [...] mellitus acu te Vitamin D deficiency acute [facility] Work Phone: evaluation note* Diagnosis [...] acute Type 2 diabetes mellitus acu te [facility] Work Phone: Evaluation note* Diagnosis [...] mellitus acu te Vitamin D deficiency acute [facility] Work Phone: evaluation note* Diagnosis Gangrene of toe of left foot ([facility])- Primary documented in this encounter [facility] Diagnosis Onset Date Resolution [...] 12:40pm Vitamin D deficiency acute 2024 12:40pm [facility] Work Phone: Hisknut general Narrative - Reported* Type Description Date Medical History Herpes labialis Medical History Candidiasis of mouth Medical History Type 2 diabetes holli itus with diabetic polyneuropathy, unspecified whether detention insulin use Medical History Controlled type 2 di abetes mellitus with hyperglycemia, unspecified whether detention insulin use Medical History Obesity Medical History Dyslipidemia Medical History CAD in [place] artery Medical History Asthma, intermittent Medical History [...] History appendectomy Surgical History 7 stents 1999 [facility] Other Hisxtua general Narrative - Reported* Type Description Date Medical History Herpes labialis Medical History Candidiasis of mouth Medical History Type 2 diabetes holli itus with diabetic polyneuropathy, unspecified whether buttermaker helper insulin use Medical History Controlled type 2 di abetes mellitus with hyperglycemia, unspecified whether buttermaker helper insulin use Medical History Obesity Medical History Dyslipidemia Medical History CAD in [place] artery Medical History Asthma, intermittent Medical History [...] stents 1999 Hospitalization History see surgical history [facility] Other Hiscxwt general Narrative - Reported* Type Description Date Medical History Herpes labialis Medical History Candidiasis of mouth Medical History Type 2 diabetes holli itus with diabetic polyneuropathy, unspecified whether detention insulin use Medical History Controlled type 2 di abetes mellitus with hyperglycemia, unspecified whether buttermaker helper insulin use Medical History Obesity Medical History Dyslipidemia Medical History CAD in [place] artery Medical History Asthma, intermittent Medical History [...] coronary 1999 Hospitalization History see surgical history [facility] Other InstructionsNot on filedocumented in this encounter [facility]GroupjumpThe [facility] HospitalReason for referral (narrative)No reason for referral information [facility] Work Phone: Summary Purpose Family History Relationship [...] Name Jose De Jesus Referring Provider Specialty [facility] Referred Organization [facility] Referred Provider Marcia Mendes Referred Address [address] [place] [address],[address],[place], [place],[address] Referred Provider Specialty Nurse Huey saldaña Referral [...] content) DATE CREATED AUTHOR 10/25/[address] [facility] DATE CREATED AUTHOR AUTHOR'S ORGANIZ ATION 09/03/2022 [facility] DATE CREATED AUTHOR AUTHOR'S ORGANIZ ATION 06/16/2024 [facility] DATE CREATED AUTHOR AUTHOR'S ORGANIZ ATION 06/30/2024 [facility] DATE CREATED AUTHOR AUTHOR'S ORGANIZ ATION 07/13/2024 [facility] REASON FOR VISIT (unrecogniz [...] Active Start: June 07, 2024 Shayy Dela Curz MD Attending Provider Active St art: June [...] End: August 24, 2023 Cathie Vargas , APPLICATION SUPPORT ENGINEER Active Star t: August 24, 2023 End: August 24, 2023 Team Status: Inactive Member Role Status Susan Dela Cruz MD Primary Care Provide r, Attending Provider Active Start: September 06, 2023 End: September 06, 2023 Team Status: Inactive Member Role Status Dates Shayy Dela Cruz MD Primary Care Provider Active Start: September 29, 2023 End: September 29, 2023 Cathie Vargas , APPLICATION SUPPORT ENGINEER Attending Provider Active Start: September 29, 2023 End: September 29, 2023 Team Status: Inactive Member Role Status Susan Dela Cruz MD Primary Care Provider Active Start: November 07, 2023 End: November 07, 2023 Curtis Norwood RN Attending Provider Active St art: November 07, 2023 End: November 07, 2023 Cathie Vargas , APPLICATION SUPPORT ENGINEER Active Star t: November 07, 2023 End: [...] End: July 28, 2023 Cathie Vargas , APPLICATION SUPPORT ENGINEER Attending Provider Active Start: July 28, 2023 End: July 28, 2023 Team Status: Inactive Member Role Status Susan Dela Cruz MD Attending Provider Active St art: April 15, 2023 End: April 15, 2023 Team Status: Inactive Member Role Status Dates Cathie Vargas , APPLICATION SUPPORT ENGINEER Attending Provider Active Start: May 25, 2023 [...] BE BASED ON THE PRIMARY CLINICAL RECORDS. [facility]. provides no warranty or guarantee of the accuracy or completeness of information in this document.
--- NOTE | 2025-01-24 10:22 | XR_ITS ---
[facility] [place] [id number] Patient Name: COLETTE DINH MRN: [id number] date: 1970 Sex: F Assigned Patient Location: [facility] Current Patient Location: [facility] Accession/Order Number: [id number] Exam Date: 01/24/2025 10:41 Report Date: 01/24/2025 11:17 At the request of: JORDYN SANCHEZ DPNegro Procedure: XR foot LT min 3V LEFT FOOT - 3 views CLINICAL HISTORY: Pain COMPARISON: Left foot 12/27/2024 FINDINGS: Diffuse soft tissue swelling is present. Bones are grossly demineralized. Distal amputation of the second and third digits similar to the prior study. The degree of Charcot changes involving the midfoot are similar to the prior study. No definitive acute bony process or plain film evidence of osteomyelitis. XR/XR foot LT min 3V IMPRESSION: OVERALL, NO SIGNIFICANT CHANGE IN LEFT FOOT FINDINGS COMPARED TO THE PRIOR STUDY. Impression dictated by: Camilo Hui Jr., D.O. 01/24/2025 11:17 AM Dictation Location: [place] [address] Electronically authenticated by: [id number] Y Date: 01/24/2025 11:17
== END 2025-01-24 10:16 | disposition home or self-care (01) ==
LOC: RAD 10:16
PROVIDERS: PCP Family Medicine; Visit Provider Podiatrist Foot & Ankle Surgery
DX: M79.672 Pain in left foot (principal)
CPT/HCPCS: 73630

== ENCOUNTER 2025-03-07 09:40 | Outpatient (OUT) | payer MEDICARE, MEDICAID, SELFPAY ==
--- OUTSIDE RECORDS SUMMARY | 2023-10-03 05:40 | XMS_ITS ---
Author Organization [facility] Address [address] [place] [address] Care Team Providers Care Dance Professor Name Role Phone Shayy Ly M.D. Primary Care Provider Unavail able Narinder Alvarez Unavailable [phone] REASON FOR VISIT Right distal ulna fx Encounters Encounter Location Date Provider Diagnosis [facility] Office [address] [place] [address] 10/03/2023 Narinder Alvarez Plan Of Treatment No Information Progress Notes * LAUREN DIHNEDOB:1970 (55 yo F)Acc No.[id number]:10/03/2023 Patient:?COLETTE DINH :?PORTILLO CoxOB:1970???Age:53 Y ???Sex:FemaleDate:4Phone:[phone]:[address] [id number]:Shayy Ly M.D. Subjective: * Chief Complaints: * 1 . Right distal ulna fx. * Medical History: Objective: * Vitals: Assessment: Plan: * Treatment: Forms: * Images: * Electronic signature of Narinder Alvarez MD on 03/07/2025 at 09:44 AM ESTSign off status: Pending * Provider: Diogenes Alvarez MD Date: 0 10/03/2023 Generated for Printing/Faxing/eTransmitting on:?03/07/2025 09:44 AM EST
--- NOTE | 2025-03-07 09:41 | XR_ITS ---
[facility] [place] [id number] Patient Name: COLETTE DINH MRN: [id number] date: 1970 Sex: F Assigned Patient Location: [facility] Current Patient Location: [facility] Accession/Order Number: [id number] Exam Date: 03/07/2025 09:52 Report Date: 03/07/2025 11:35 At the request of: JORDYN SANCHEZ DPNegro Procedure: XR foot LT min 3V LEFT FOOT - 3 views CLINICAL DATA: Left foot pain and swelling. No reported injury. COMPARISON: 01/24/2025 Standing AP, lateral and oblique views were obtained. There is osteopenia. There is prior amputation of the second toe at the head of the proximal phalanx and at the third toe at the base of the proximal phalanx. There is stable chronic bony changes (Charcot joint) and the tarsometatarsal region and at the head of the third metatarsal. No acute fracture or dislocation is seen. There are no significant soft tissue abnormalities. XR/XR foot LT min 3V IMPRESSION: OSTEOPENIA AND CHRONIC STABLE CHANGES. NO ACUTE BONY FINDINGS. Impression dictated by: Aliyah Nicole M.D. 03/07/2025 11:35 AM Dictation Location: [place] [address] Electronically authenticated by: [id number] Y Date: 03/07/2025 11:35
--- OUTSIDE RECORDS SUMMARY | 2025-03-07 09:44 | XMS_ITS | Patient Health Record ---
Author Organization [facility] Address [address] [place] [address] Care Team Providers Care Wing Coverer Name Role Phone Shayy Ly M.D. Primary Care Provider Unavail able Narinder Alvarez Loki [phone] Allergies Allergen (clinical drug ingredient) Drug/Non Drug Allergy documented on EMR Reaction Allergy Type Onset Date Status Latex latex (uncoded) Unknown Allergy ActivecodeinecodeineUnknownDrug AllergyActive Reason For Referral No Information Medications Medication SIG (Take, Route, Frequency, Duration) Notes Start Date End Date Status lisinopril ActivecarvedilolActiveNexIUMActivemeloxicamActiveaspirinActiveHumaLOGActive metFORMINActive Social History Tobacco Use: Social History Observation Description Date Details (start date - stop date) Never Smoker NA - NA Smoking History Question Answer Notes Smoking Status NonSmoker AUDIT-C (Standard) Question Answer Notes Did you have a drink containing alcohol in the p ast year? No Criwzl3QbjicdzznnoqjyNgbtpexo Problems Problem Type SNOMED Code ICD Code Onset Dates Problem Status W/U Status Risk Notes Problem [id number] Other fracture o f lower end of right ulna, subsequent encounter for closed fracture with routine healing (S52.691D) Activeconfirmed Plan Of Treatment Pending Test Test Name Order Date SCC- WRIST 3 VIEW RIGHT [id number] 05/16/2023 SCC- WRIST 3 VIEW RIGHT [id number] 08/29/2023 SCC- PT/OT EVAL AND TREAT 3X/WEEK FOR 6 WEEKS 08/29/2023 Insurance Providers Payer Name Payer Address Payer Phone Subscriber Number Group Number Insured Name Patient Relationship to Insured Coverage Start Date Coverage End Date Medicare [employer] [address] [place] [address] [id number] Farhana DINH - patient is the insuredOhio Dept of MedicaidP [address] [place] [id number] - patient is the insured Medical (General) History Medical History History ICD Code Asthma/COPD Heart AttackDiabetesHigh Blood PressureLatex AllergyDrug Allergies
--- OUTSIDE RECORDS SUMMARY | 2025-03-07 09:44 | XMS_ITS | Clinical Summary ---
Author Organization [place] [facility] [place] Address [id number] [address] [place] [address] Care Team Providers Care Critical Power Technician Name Role Phone Unavailable Primary Care Provider Unavailabl e Allergies Active AllergyReactionsCriticalityNoted FgalEspknkehWgyhlza05/13/2025Insulin FbfdskJlaqLzz16/13/5735Hqqzf47/13/5492Tjyoft55/13/2025 Tomato sauce Medications MedicationSigDispense QuantityRefillsLast FilledStart DateEnd DateStatus atorvastatin (LIPITOR) 40 mg tablet Take 1 tablet (40 mg total) by mouth in the morning.Active carvediloL (COREG) 6.25 mg tablet Take 1 tablet (6.25 mg total) by mouth in the morning and 1 tablet (6.25 mg total) in the evening. Take with meals.Active esomeprazole (NexIUM) 40 mg capsule Take 1 capsule (40 mg total) by mouth every morning before breakfast.Active metFORMIN (GLUCOPHAGE) 1000 mg tablet Apply 0.5 tablets (500 mg total) to the mouth or throat in the morning and 0.5 tablets (500 mg total) in the evening. Apply with meals. 250mg in am, 250mg in pm.Active sulfamethoxazole-trimethoprim (BACTRIM DS) 800-160 mg per tablet Take 1 tablet by mouth in the morning and 1 tablet before bedtime.06/07/2024 Active losartan (COZAAR) 25 mg tablet Take 1 tablet (25 mg total) by mouth in the morning and 1 tablet (25 mg total) before bedtime.Active glipiZIDE (GLUCOTROL) 10 mg tablet Take 1 tablet (10 mg total) by mouth in the morning and 1 tablet (10 mg total) in the evening. Takebefore meals.Active FLOVENT HFA 110 mcg/actuation inhaler Inhale 2 puffs in the morning and 2 puffs before bedtime.Active fluticasone propionate (FLONASE) 50 mcg/actuation nasal spray Administer 2 sprays into each nostril in the morning.4Active TOUJEO MAX U-300 SOLOSTAR 300 unit/mL (3 mL) insulin pen Inject 95 Unit under the skin in the morning.5Active simvastatin (ZOCOR) 20 mg tablet Take 1 tablet (20 mg total) by mouth nightly.Active amoxicillin-pot clavulanate (AUGMENTIN) 875-125 mg per tablet Take 1 tablet by mouth every 12 (twelve) hours.5Active Active Problems ProblemNoted DateDiagnosed DateGangrene of toe of left foot06/14/2024 Assessment & Plan (06/14/2024 11:11 AM EST): Osteomyelitis and gangrenous changes of the left second and third and may be the fourth toe.She hasnormal PVR with toe pressure and normal HIEU and toe pressure index.I discussed with her that there is no VASc intervention needed at this time. She needs his aggressive blood sugar control IV antibiotics likely toe amputation by podiatry and risk factors modification. Social History Tobacco UseTypesPacks/DayYears UsedDateSmoking Tobacco: NeverSmokeless Tobacco: Never Tobacco Cessation:Counseling Given: Not Answered Alcohol UseStandard Drinks/WeekCommentsNever0 (1 standard drink = 0.6 oz pure alcohol)Hunger ScreeningAnswerDate RecordedWithin the past 12 months we worried whether our food would run out before we got money to buy more.Never True 06/14/2024Within the past 12 months the food we bought just didn't last and we didn't have money to get more.Never True06/14/2024CommentsUnknownSex and Gender InformationValueDate RecordedSex Assigned at BirthNot on fileLegal Sex Bamjrh2206/13/2024 2:03 PM ESTGender IdentityNot on fileSexual OrientationNot on file Last Filed Vital Signs Vital SignReadingTime TakenCommentsBlood Utoitqwu267/8206/14/2024 10:21 AM EST Wfoss818206/14/2024 10:21 AM MTENtbvwgjtaio51.3 ??C (97.3 ??F)06/14/2024 10:21 AM ESTRespiratory Rate--Oxygen Byvuqkwygp95%06/14/2024 10:21 AM ESTInhaled Oxygen Concentration--Ztxmez89.7 kg (211 lb)06/14/2024 10:21 AM RVAZhozuo371.5 cm (5' 2 )06/14/2024 10:21 AM ESTBody Mass Index38.59006/14/2024 10:21 AM EST Plan of Treatment Health MaintenanceDue DateLast DoneCommentsDepression Bxlkdpfuo40/16/1984Tobacco Nbciwudrc22/16/1984Adult BMI Follow Up Plan01/15/1990DTaP,Tdap and Td Vaccines (1 - Tdap)01/15/1991Pap Smear01/15/1993Zoster (Shingles) Vaccine (1 of 2) 01/15/2022Influenza Gxwcisr3412/31/2024dult BMI Erstnnfxs07 Medical Devices [place] [address] [place] [id number]
--- OUTSIDE RECORDS SUMMARY | 2025-03-07 09:44 | XMS_ITS | Clinical Summary ---
Author Organization [facility] Address [address] [place] [address] Care Team Providers Care Supervisor Plastering Name Role Phone Shayy Ly MD Primary Care Provider [phone] Allergies Active AllergyReactionsCriticalityNoted VranXgjyrfmaJonjfzn58/23/2022Insulin JnmrkaQxucYkw39/13/7540UcajmFbgyl20/19/1118DbkolrXgala37/13/2025 Tomato sauce Medications MedicationSigDispense QuantityRefillsLast FilledStart DateEnd DateStatus aspirin 81 mg EC tablet Take 1 tablet every day by oral route as directed for 90 days.03/20/2020Active albuterol 90 mcg/actuation inhaler INHALE TWO PUFFS EVERY FOUR HOURS, NEEDEDActive esomeprazole (NexIUM) [address] capsule Take 1 capsule by mouth in the morning.Active glipiZIDE (Glucotrol) 10 mg tablet TAKE 2 (TWO) TABLET BY MOUTH TWO TIMES DAILYActive metFORMIN (Glucophage) 1,000 mg tablet TAKE 1 (ONE) TABLET BY MOUTH TWO TIMES DAILYActive montelukast (Singulair) 10 mg tablet Take 1 tablet every day by oral route for 30 days.Active insulin glargine (Toujeo SoloStar U-300 Insulin) 300 unit/mL (1.5 mL) injection INJECT 75 UNITS UNDER SKIN TWICE A DAYActive budesonide-formoteroL (Symbicort) 160-4.5 mcg/actuation inhaler Active metoprolol tartrate (Lopressor) 25 mg tablet Indications:Coronary arteriosclerosis in [place] artery,Essential hypertension Take 1 tablet (25 mg) by mouth in the morning and at bedtime. 180 tablet ctive Additional Information Patient not taking.Reported on 06/19/2024 atorvastatin (Lipitor) 40 mg tablet Indications:Atherosclerosis of [place] coronary artery of [place] heart without angina pectoris,Mixed hyperlipidemiaTake 1 tablet (40 mg) by mouth in the morning. 90 tablet 3Active magnesium oxide (Mag-Ox) 400 mg tablet 400 mg in the morning.Active hydroCHLOROthiazide (Microzide) 12.5 mg capsule Indications:Essential hypertensionTAKE 1 CAPSULE (12.5 MG) BY MOUTH IN THE MORNING. 90 capsule 3Active Additional Information Patient not taking.Reported on 06/19/2024 famotidine (Pepcid) 20 mg tablet Take 20 mg by mouth at bedtime.4Active ibuprofen 600 mg tablet Take 1 tablet by mouth every 8 (eight) hours if needed for pain.4Active HumaLOG KwikPen Insulin 200 unit/mL (3 mL) insulin pen injection pen PLEASE SEE ATTACHED FOR DETAILED MDUQHJVWZT58/13/2025Active carvedilol (Coreg) 6.25 mg tablet Indications:Essential hypertensionTake 1 tablet (6.25 mg) by mouth with breakfast and with evening meal. 180 tablet 6Active losartan (Cozaar) 25 mg tablet Indications:Essential hypertensionTake 1 tablet (25 mg) by mouth in the morning. 90 tablet 6Active nitroglycerin (Nitrostat) 0.4 mg SL tablet Indications:Chest pain, unspecified typePlace 1 tablet (0.4 mg) under the tongue every 5 (five) minutes if needed for chest pain. PLACE 1 TABLET UNDER TONGUE EVERY 5 MINS, UP TO 3 DOSES NEEDED FOR CHEST PAIN 75 tablet 5Active Active Problems ProblemNoted DateDiagnosed DateBMI 37.0-37.9, adult02/28/2025lass 3 severe obesity with body mass index (BMI) of 40.0 to 44.9 in adult02/28/2025Fracture 02/28/2025Gastroesophageal reflux coaqezd0602/28/2025Gluteal tendinitis, right hip 02/28/2025H/O amputation of lesser toe02/28/2025 Overview (02/28/2025): left foot History of myocardial tjqvoljkdn02/30/2025Long-term insulin use02/28/2025Right ankle pain02/28/2025Right wrist skwrykai17/30/2025Vitamin D /30/2025 Dietary counseling and tkgcpqwuiwqz79/30/2025Other fracture of lower end of right ulna, subsequent encounter for closed fracture with routine healing 06/19/2024Gangrene of toe of left foot06/14/2024Mixed rwpzbmuhzgzadj03/31/2023 Essential exfaggupqmwn98/18/2023 Overview (05/19/2022): Images from the original note were not included. Trig 77 Assessment & Plan (05/19/2022 10:44 AM EST): Hypertension is uncontrolled, Will add lisinopril 5 mg po daily, and continue metoprolol Goal b/p 130/80 or less, monitor for dry persistent cough- call office for any concerns, repeat BMPin 1 week RTC 1 month to review B/P log Agpzdnnil69/23/2022Coronary arteriosclerosis in [place] orqkkr4406/30/2012 Assessment & Plan (05/19/2022 10:43 AM EST): Coronary artery disease is stable, no concerning symptoms continue risk factor modifications- heart healthy diet, regular exercise as tolerated and continue all medications. Old myocardial pmqnujhous72/01/2013Type 1 diabetes wgbioztd83/01/2013Infarction of lung due to iatrogenic pulmonary yzjgvata96/01/4907Gzuizw72/01/2013Coronary jdsgdlgjimstova82/01/2013 Encounters DateTypeDepartmentCare JglzEbanxzmseju74/07/2025[facility] [address] [place] [address] Becka Christensen MD Chest pain, unspecified type01/01/2025[facility] [address] [place] [address] Tamara Price MA Essential hypertensionfrom Last 3 Months Social History Tobacco UseTypesPacks/DayYears UsedDateSmoking Tobacco: NeverSmokeless Tobacco: Never Tobacco Cessation:Counseling Given: Not Answered Alcohol UseStandard Drinks/WeekCommentsNot Currently0 (1 standard drink = 0.6 oz pure alcohol)[place] Safety & EnvironmentAnswerDate RecordedFear of Current or Ex-PartnerNot on file06/23/2023Emotionally AbusedNot on file06/23/2023hysically AbusedNot on file06/23/2023Sexually AbusedNot on file06/23/2023hysically or Sexually AbusedNot on file06/23/2023CommentsUnknownSex and Gender InformationValueDate RecordedSex Assigned at VefygBmqoqf64/30/2025 10:51 AM EDT Legal RxxEyhhss82/29/2022 10:02 PM EDTGender QwbsipdoKifxei28/30/2025 10:51 AM EDTSexual OrientationHeterosexual or Aaqjguif41/30/2025 10:51 AM EDT Last Filed Vital Signs Vital SignReadingTime TakenCommentsBlood Ioimsaao848/8406/19/2024 3:25 PM EST Fwkdc016906/19/2024 3:25 PM ESTTemperature--Respiratory Rate--Oxygen Yzxdxuhdkz40% 06/19/2024 3:25 PM ESTInhaled Oxygen Concentration--Rtlgys49.7 kg (211 lb) 06/19/2024 3:25 PM ZDTVjxzio144.5 cm (5' 2 )06/19/2024 3:25 PM ESTBody Mass Index38.59006/19/2024 3:25 PM EST Plan of Treatment DateTypeDepartmentCare Team (Latest Contact Info)Lktfrwpgezf45/05/2025 1:45 PM ESTOffice Visit [facility] [address] [place] [address] Zane Navarrete MD [address] [facility] [place] [address] Health MaintenanceDue DateLast DoneCommentsCT Bduqimpcxlui1972Colonoscopy 1972Diabetes: Hemoglobin A1C1972FOBT1972Medicare Annual Wellness (AWV)1972 6835Lzlcodbxojmbj1972Diabetes: Retinopathy Screening 01/15/1982Depression Xecosbzci30/16/1984Diabetes: Urine Protein Screening 01/15/1991Hepatitis B Vaccines (1 of 3 - 19+ 3-dose series)01/15/1991Pap Smear 01/15/1993Cervical Cancer Qgyczjout17/16/2002HPV/Xeilkg8301/15/2002Mammogram 2012Pneumococcal Vaccine: Pediatrics (0 to 5 Years) and At-Risk Patients (6 to 64 Years) (2 of 2 - PPSV23, PCV20, or PCV21)Zoster Vaccines (1 of 2)2COVID-19 Vaccine (2 - 2024- season)2024 10/21/2020Influenza Vaccine (#1)/05/2023, 02/14/2023, 02/01/2022, Additional history pmzzscPMQ38/05/500970/5Colorectal Cancer Screening 06/06/2027FIT-DNA06/06/678530/5Adult Ljycpbf80/05/2024HIB VaccinesAged OutNo longer eligible based on patient's age to complete this topic HPV VaccinesAged OutNo longer eligible based on patient's age to complete this topicIPV VaccinesAged OutNo longer eligible based on patient's age to complete this topicMeningococcal B VaccineAged OutNo longer eligible based on patient's age to complete this topicMeningococcal VaccineAged OutNo longer eligible based on patient's age to complete this topicRotavirus VaccinesAged OutNo longer eligible based on patient's age to complete [place] [address] Care Teams Team MemberRelationshipSpecialtyStart [place] [address] [place] [address] #A PCP - General05/19/22
--- OUTSIDE RECORDS SUMMARY | 2025-03-07 09:44 | XMS_ITS | Patient Health Record ---
Author Organization [facility] in [place] Address [address] [place] [address] Care Team Providers Care Correctional Officer Chief Name Role Phone None, Unknown or Primary Care Provider Unavailab Jordyn Dugan Unavailable [phone] Fabián Messina Unavailable [phone] Allergies Allergen (clinical drug ingredient) Drug/Non Drug Allergy documented on EMR Reaction Allergy Type Onset Date Status codeine Codeine Unknown Drug Allergy ActiveLatexLatexUnknownAllergyActive Results Component Value Reference Range Notes VC SEGMENTAL PRESSURES (Not yet reviewed by provider) Interpretation: Performing Lab: Notes/Report: Source Facility: [place] [address] Vein Report Signed Patient: ZOILA RAMOS MR#: [id number] : 1970 Acct:[id number] Age/Sex: 54 / F ADM Date: 05/09/24 Loc: VC Attending Dr: Jordyn Bruce D.P.M. Ordering Physician: Jordyn Bruce D.P.M. Date of Service: 05/09/24 Procedure(s): VC SEGMENTAL PRESSURES Accession Number(s): [id number] cc: Shayy Dela Cruz M.D.; Jordyn Bruce D.P.M. [place] [address] Patient Name: ZOILA RAMOS MRN: [id number] date: 1970 Sex: F Assigned Patient Location: VC Current Patient Location: VC Accession/Order Number: [id number] Exam Date: 05/09/2024 13:04 Report Date: 05/09/2024 14:53 At the request of: JORDYN BRUCE Procedure: VC SEGMENTAL PRESSURES EXAM: VC SEGMENTAL PRESSURES HISTORY: R09.89 COMPARISON: None. FINDINGS: Segmental pressures presented as follows (right, left) in mmHg. 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 Signed By: 05/09/24 1455 DD/ 52 TD/TT: Security Officers And Guards: Erythrocyte Sedimentation Ra te (Not yet reviewed by provider) Interpretation: Performing Lab: Notes/Report: [facility] , Erythrocyte Sedimentation Rate 28 <=30 mm/hr Performing Lab:see noteML - [facility] LBPROF CHEM 8 (BAS METB) (Not yet reviewed by provider) Interpretation: Performing Lab: Notes/Report: [facility] ,Rgudjz436329-359 mmol/LPotassium4.63.5-5.1 mmol/OQhhpysuj68689-738 mmol/LCarbon Idmions42.821.0-32.0 mmol/LAnion Gap9.2Kgyswhk03144-806 mg/dLBlood Urea Nitrogen 15.07.0-18.0 mg/dLCreatinine1.010.55-1.02 mg/dLEstimated GFR ( Ligia>60 >=60 mL/min/1.73m 2Estimated GFR (Non- Ame58>=60 mL/min/1.73m 2BUN Creatinine Ratio14.5Mlkxcje5.08.5-10.1 mg/dLPerforming Lab:see noteML - [facility] LBCBC AUTO DIFF (Not yet reviewed by provider) Interpretation: Performing Lab: Notes/Report: [facility] ,White Blood Count8.84.0-11.0 10 3/uLRed Blood Count4.484.20-5.40 10 6/uL Jdpsquebpe65.112.0-16.0 g/dFKvwauaqujo06.136.0-48.0 %Mean Corpuscular Bhcgww05.3 81.0-99.0 fLMean Corpuscular Vphyhyokjq55.226.7-34.0 pgMean Corpuscular HGB Conc 33.529.9-35.2 g/dLRed Cell Distribution Width13.111.0-15.0 %Platelet Tlbnv483 150-450 10 3/uLMean Platelet Dynrfx02.19.5-13.5 fLNeutrophils Percent Auto62.1 43.0-75.0 %Lymphocytes Percent Auto28.320.5-60.0 %Monocytes Percent Auto6.01.7- 12.0 %Eosinophils Percent Auto2.80.9-7.0 %Basophils Percent Auto0.70.2-2.0 % Immature Granulocytes Pct Auto0.10.0-0.5 %Neutrophils Absolute Auto5.51.4-6.5 10 3/uLLymphocytes Absolute Auto2.51.2-3.8 10 3/uLMonocytes Absolute Auto0.50.3-0.8 10 3/uLEosinophils Absolute Auto0.30.0-0.7 10 3/uLBasophils Absolute Auto0.10.0- 0.1 10 3/uLImmature Granulocytes Abs Auto0.010.00-0.03 10 3/uLPerforming Lab:see noteML - [facility] LBPROF CHEM 8 (BAS METB) (Not yet reviewed by provider) Interpretation: Performing Lab: Notes/Report: [facility] ,Qanhzq721076-599 mmol/LPotassium4.23.5-5.1 mmol/GSztpshom13435-943 mmol/LCarbon Aeoeumu61.721.0-32.0 mmol/LAnion Gap11.5Xogcikd86077-525 mg/dLBlood Urea Nsbqspud08.07.0-18.0 mg/dLCreatinine0.890.55-1.02 mg/dLEstimated GFR ( Ligia>60>=60 mL/min/1.73m 2Estimated GFR (Non- Rebecca>60>=60 mL/min/1.73m 2BUN Creatinine Ratio15.8Oticwnc5.08.5-10.1 mg/dLPerforming Lab:see noteML - [facility] LBXR chest 2V (Not yet reviewed by provider) Interpretation: Performing Lab: Notes/Report: Source Facility: [place] [address] XRay Report Signed Patient: ZOILA RAMOS MR#: [id number] : 1970 Acct:[id number] Age/Sex: 54 / F ADM Date: 06/19/24 Loc: [facility] Attending Dr: Jordyn Bruce D.P.M. Ordering Physician: Jordyn Bruce D.P.M. Date of Service: 06/19/24 Procedure(s): XR chest 2V Accession Number(s): [id number] cc: Shayy Dela Cruz M.D.; Jordyn Bruce D.P.M. [place] [address] Patient Name: ZOILA RAMOS MRN: [id number] date: 1970 Sex: F Assigned Patient Location: [facility] Current Patient Location: [facility] Accession/Order Number: [id number] Exam Date: 06/19/2024 14:34 Report Date: 06/19/2024 [...] Aliyah Nicole M.D.06/19/2024 2:37 PM Dictation Location: [place] [address] Electronically authenticated by: [id number] Y Date: 06/19/2024 14:37 Dictated By: Aliyah Nicole M.D. Signed By: 06/19/24 1440 DD/ 1437 TD/TT: Security Officers And Guards:Tissue Culture (Not yet reviewed by provider) Interpretation: Performing Lab: Notes/Report: [facility] ,Tissue CultureSee Below For Report Tissue Culture WILL FOLLOW Tissue Culture Tissue Culture WILL FOLLOW Tissue CultureNo growth after 18-24 hours. Tissue Culture WILL FOLLOW Tissue Culture Tissue Culture WILL FOLLOW Tissue CultureNo growth in 36 - 48 hours. Tissue Culture WILL FOLLOW Performing Lab:see noteLC - [facility] LBXR foot LT min 3V (Not yet reviewed by provider) Interpretation: Performing Lab: Notes/Report: Source Facility: [place] [address] XRay Report Signed Patient: ZOILA RAMOS MR#: [id number] : 1970 Acct:[id number] Age/Sex: 54 / F ADM Date: 08/10/24 Loc: Attending Dr: Jordyn Bruce D.P.M. Ordering Physician: Jordyn Bruce D.P.M. Date of Service: 08/10/24 Procedure(s): XR foot LT min 3V Accession Number(s): [id number] cc: Shayy Dela Cruz M.D.; Jordyn Bruce D.P.M. [place] [address] Patient Name: ZOILA RAMOS MRN: [id number] date: 1970 Sex: F Assigned Patient Location: Current Patient Location: Accession/Order Number: [id number] Exam Date: 08/10/2024 11:50 Report Date: 08/10/2024 [...] Yoni Callahan M.D.08/10/2024 11:55 AM Dictation Location: [place] [address] Electronically authenticated by: [id number] Y Date: 08/10/2024 11:55 Dictated By: Yoni Callahan D.O. Signed By: 08/10/24 1157 DD/ 1155 TD/TT: Security Officers And Guards:Anaerobic Cult, Extended Incub (Not yet reviewed by provider) Interpretation: Performing Lab: Notes/Report: [facility] ,Anaerobic Cult, Extended IncubSee Below For Report Anaerobic Cult, Extended Incub Anaerobic Cult, Extended IncubNo aerobic or anaerobic growth in 72 hours. Anaerobic Cult, Extended Incub Anaerobic Cult, Extended Incub Anaerobic Cult, Extended Incub Anaerobic Cult, Extended IncubNo growth after 14 days. Anaerobic Cult, Extended Incub Performing Lab:see noteLC - [facility] LBTissue Culture (Not yet reviewed by provider) Interpretation: Performing Lab: Notes/Report: [facility] ,Tissue CultureSee Below For Report Tissue Culture Tissue CultureNo growth after 18-24 hours. Tissue Culture Tissue Culture Tissue Culture Tissue CultureNo growth in 36 - 48 hours. Tissue Culture Tissue CultureNo growth in 56 - 72 hours. Tissue Culture Tissue CulturePerformed at: [facility] Tissue Culture Tissue [address] [place], [place] [id number] Tissue Culture Tissue CultureLab Director: Gerald Jacobs PhD, Phone: [phone] Tissue Culture Tissue Culture Tissue Culture Tissue Culture* This is a corrected result. * Tissue Culture Tissue Culture Tissue Culture Tissue CultureA prior result that was reported as final has been changed. Tissue Culture Performing Lab:see note SEE REPORT - Customer Engineering Specialist Id information not found for OBX-specific type proof reproducer legend LC - [facility] LB AFB Specimen Processing (Not yet reviewed by provider) Interpretation: Performing Lab: Notes/Report: [facility] ,AFB Specimen ProcessingSee Below For ReportAFB Specimen ProcessingAFB Specimen ProcessingTissue GrindingAFB Specimen ProcessingPerforming Lab:see noteLC - [facility] LBFungus Stain (Not yet reviewed by provider) Interpretation: Performing Lab: Notes/Report: [facility] ,Fungus StainSee Below For Report Fungus Stain Fungus StainPlease refer to the following specimen for additional lab results. Fungus Stain Fungus Stainsee [id number] Fungus Stain Performing Lab:see note LC - [facility] LB SEE REPORT - Customer Engineering Specialist Id information not found for OBX-specific type proof reproducer legend Gram Stain Result (Not yet reviewed by provider) Interpretation: Performing Lab: Notes/Report: [facility] ,Gram Stain ResultSee Below For ReportGram Stain ResultGram Stain ResultPlease refer to the following specimen for additional lab results.Gram Stain ResultGram Stain Resultsee [id number] Stain ResultPerforming Lab:see note SEE REPORT - Customer Engineering Specialist Id information not found for OBX-specific type proof reproducer legend LC - [facility] LB XR foot LT min 3V (Not yet reviewed by provider) Interpretation: Performing Lab: Notes/Report: Source Facility: [place] [address] XRay Report Signed Patient: ZOILA RAMOS MR#: [id number] : 1970 Acct:[id number] Age/Sex: 54 / F ADM Date: 07/05/24 Loc: SURGOUT Attending Dr: Jordyn Bruce D.P.M. Ordering Physician: Jordyn Bruce D.P.M. Date of Service: 07/05/24 Procedure(s): XR foot LT min 3V Accession Number(s): [id number] cc: Shayy Dela Cruz M.D.; Jordyn Bruce D.P.M. [place] [address] Patient Name: ZOILA RAMOS MRN: [facility]:[id number] date: 1970 Sex: F Assigned Patient Location: [facility] Current Patient Location: Accession/Order Number: [id number] Exam Date: 07/05/2024 22:49 Report Date: 07/05/2024 [...] Hui Jr., D.O.07/05/2024 10:52 PM Dictation Location: [place] [address] Electronically authenticated by: [id number] Y Date: 07/05/2024 22:52 Dictated By: Camilo Hui M.D. Signed By: 07/05/24 2254 DD/ 2252 TD/TT: Security Officers And Guards:Anaerobic Cult, Extended Incub (Not yet reviewed by provider) Interpretation: Performing Lab: Notes/Report: [facility] ,Anaerobic Cult, Extended IncubSee Below For ReportAnaerobic Cult, Extended IncubAnaerobic Cult, Extended IncubNo aerobic or anaerobic growth in 72 hours. Anaerobic Cult, Extended IncubAnaerobic Cult, Extended IncubAnaerobic Cult, Extended IncubAnaerobic Cult, Extended IncubNo growth after 14 days.Anaerobic Cult, Extended IncubPerforming Lab:see noteLC - [facility] LBGram Stain Result (Not yet reviewed by provider) Interpretation: Performing Lab: Notes/Report: [facility] ,Gram Stain ResultSee Below For Report Few white blood cells. Gram Stain Result Gram Stain Result Few white blood cells. Gram Stain Result Gram Stain ResultNo organisms seen Few white blood cells. Gram Stain Result Gram Stain Result Few white blood cells. Gram Stain Result Performing Lab:see noteLC - [facility] LBFungus (Mycology) Culture (Not yet reviewed by provider) Interpretation: Performing Lab: Notes/Report: [facility] ,Fungus (Mycology) CultureSee Below For Report Fungus (Mycology) Culture Please refer to the following specimen for additional lab results. Fungus (Mycology) Culturesee [id number] Fungus (Mycology) Culture Please refer to the following specimen for additional lab results. Performing Lab:see note SEE REPORT - Customer Engineering Specialist Id information not found for OBX-specific type proof reproducer legend - [facility] LB Fungus Stain (Not yet reviewed by provider) Interpretation: Performing Lab: Notes/Report: [facility] ,Fungus StainSee Below For Report Fungus Stain Fungus StainPlease refer to the following specimen for additional lab results. Fungus Stain Fungus Stainsee [id number] Fungus Stain Performing Lab:see note SEE REPORT - Customer Engineering Specialist Id information not found for OBX-specific type proof reproducer legend - [facility] LB Acid Fast Culture (Not yet reviewed by provider) Interpretation: Performing Lab: Notes/Report: [facility] ,Acid Fast CultureSee Below For Report Specimen has been received and testing has been initiated. Acid Fast Culture Acid Fast CultureNegative Specimen has been received and testing has been initiated. Acid Fast Culture Acid Fast CultureNo acid fast bacilli isolated after 6 weeks. Specimen has been received and testing has been initiated. Acid Fast Culture Acid Fast CulturePerformed at: [facility] Specimen has been received and testing has been initiated. Acid Fast Culture Acid Fast [address] [place], [place] [id number] Specimen has been received and testing has been initiated. Acid Fast Culture Acid Fast CultureLab Director: Gerald Jacobs PhD, Phone: [phone] Specimen has been received and testing has been initiated. Acid Fast Culture Performing Lab:see note SEE REPORT - Customer Engineering Specialist Id information not found for OBX-specific type proof reproducer legend - [facility] LB Acid Fast Smear (Not yet reviewed by provider) Interpretation: Performing Lab: Notes/Report: [facility] ,Acid Fast SmearSee Below For Report Acid Fast Smear Negative Performing Lab:see note - [facility] LBAFB Specimen Processing (Not yet reviewed by provider) Interpretation: Performing Lab: Notes/Report: [facility] ,AFB Specimen ProcessingSee Below For ReportAFB Specimen ProcessingAFB Specimen ProcessingTissue GrindingAFB Specimen ProcessingPerforming Lab:see note - [facility] LBECG 12 lead (Not yet reviewed by provider) Interpretation: Performing Lab: Notes/Report: Source Facility: [facility] [place] [address] [place] [address] Electrocardiograph Report Signed Patient: ZOILA RAMOS MR#: [id number] : 1970 Acct:[id number] Age/Sex: 54 / F ADM Date: 06/19/24 Loc: PST Attending Dr: Jordyn Bruce D.P.M. Ordering Physician: Jordyn Bruce D.P.M. 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: : 1970 Requested By: SHAYY DELA CRUZ Order Number: [id number] Reading MD: HUSAM ABEL Measurements Intervals [place] Rate: 84 P: 15 CA: 167 QRS: -58 QRSD: 117 T: 103 [...] Signed By: 06/20/24 0709 DD/ 1348 TD/TT: Security Officers And Guards:Prothrombin Time INR (Not yet reviewed by provider) Interpretation: Performing Lab: Notes/Report: [facility] ,Prothrombin Time10.79.0-11.6 secINR1.01 2.5-3.5 FOR PROSTHETIC HEART VALVE REPLACEMENT DESIRED INR: 2.0-3.0 CONDITIONS NOT LISTED BELOW 2.5-3.5 RECURRENT THROMBOSIS Performing Lab:see noteML - [facility] LBPTT (Not yet reviewed by provider) Interpretation: Performing Lab: Notes/Report: [facility] ,Partial Thromboplastin Time25.322.3-36.2 secPerforming Lab:see noteML - [facility] LBXR foot LT min 3V (Not yet reviewed by provider) Interpretation: Performing Lab: Notes/Report: Source Facility: [facility] [place] [address] [place] [address] XRay Report Signed Patient: ZOILA RAMOS MR#: [id number] : 1970 Acct:[id number] Age/Sex: 54 / F ADM Date: 06/13/24 Loc: Attending Dr: Fabián Messina Ordering Physician: Fabián Messina Date of Service: 06/13/24 Procedure(s): XR foot LT min 3V Accession Number(s): [id number] cc: Shayy Dela Cruz M.D.; Fabián Messina [place] [address] Patient Name: ZOILA RAMOS MRN: [id number] date: 1970 Sex: F Assigned Patient Location: Current Patient Location: Accession/Order Number: [id number] Exam Date: 06/13/2024 13:08 Report Date: 06/14/2024 [...] Signed By: 06/14/24 1004 DD/ 1001 TD/TT: Security Officers And Guards:CBC AUTO DIFF (Not yet reviewed by provider) Interpretation: Performing Lab: Notes/Report: [facility] ,White Blood Count6.34.0-11.0 10 3/uLRed Blood Count4.654.20-5.40 10 6/uL Lfuecjtjkz16.712.0-16.0 g/aVYrsjhdqjwf09.636.0-48.0 %Mean Corpuscular Aovudp76.5 81.0-99.0 fLMean Corpuscular Bkftlnhiaq43.526.7-34.0 pgMean Corpuscular HGB Conc 32.929.9-35.2 g/dLRed Cell Distribution Width13.211.0-15.0 %Platelet Pobur395 150-450 10 3/uLMean Platelet Tyzmoc35.19.5-13.5 fLNeutrophils Percent Auto47.6 43.0-75.0 %Lymphocytes Percent Auto41.220.5-60.0 %Monocytes Percent Auto7.61.7- 12.0 %Eosinophils Percent Auto2.70.9-7.0 %Basophils Percent Auto0.60.2-2.0 % Immature Granulocytes Pct Auto0.30.0-0.5 %Neutrophils Absolute Auto3.01.4-6.5 10 3/uLLymphocytes Absolute Auto2.61.2-3.8 10 3/uLMonocytes Absolute Auto0.50.3-0.8 10 3/uLEosinophils Absolute Auto0.20.0-0.7 10 3/uLBasophils Absolute Auto0.00.0- 0.1 10 3/uLImmature Granulocytes Abs Auto0.020.00-0.03 10 3/uLPerforming Lab:see noteML - [facility] LBPROF CHEM 8 (BAS METB) (Not yet reviewed by provider) Interpretation: Performing Lab: Notes/Report: [facility] ,Thdvim754980-174 mmol/LPotassium5.13.5-5.1 mmol/YNixlykmp87698-155 mmol/LCarbon Qguonro16.621.0-32.0 mmol/LAnion Gap11.8Zkqxrck91458-369 mg/dLBlood Urea Wfihmajd14.07.0-18.0 mg/dLCreatinine1.010.55-1.02 mg/dLEstimated GFR ( Ligia>60>=60 mL/min/1.73m 2Estimated GFR (Non- Ame58>=60 mL/min/1.73m 2 BUN Creatinine Ratio11.2Ntynqeq8.18.5-10.1 mg/dLPerforming Lab:see noteML - [facility] LBCRP (Not yet reviewed by provider) Interpretation: Performing Lab: Notes/Report: [facility] ,C Reactive Protein1.26<=0.50 mg/dLPerforming Lab:see noteML - [facility] LBCBC AUTO DIFF (Not yet reviewed by provider) Interpretation: Performing Lab: Notes/Report: [facility] ,White Blood Count7.24.0-11.0 10 3/uLRed Blood Count4.444.20-5.40 10 6/uL Haziabjkkl05.012.0-16.0 g/jBAavpoeszft44.436.0-48.0 %Mean Corpuscular Opnbcf13.7 81.0-99.0 fLMean Corpuscular Oxhkwxlqti52.326.7-34.0 pgMean Corpuscular HGB Conc 33.029.9-35.2 g/dLRed Cell Distribution Width12.911.0-15.0 %Platelet Bbhrg913 150-450 10 3/uLMean Platelet Volume9.99.5-13.5 fLNeutrophils Percent Auto58.1 43.0-75.0 %Lymphocytes Percent Auto30.420.5-60.0 %Monocytes Percent Auto7.11.7- 12.0 %Eosinophils Percent Auto3.50.9-7.0 %Basophils Percent Auto0.60.2-2.0 % Immature Granulocytes Pct Auto0.30.0-0.5 %Neutrophils Absolute Auto4.21.4-6.5 10 3/uLLymphocytes Absolute Auto2.21.2-3.8 10 3/uLMonocytes Absolute Auto0.50.3-0.8 10 3/uLEosinophils Absolute Auto0.30.0-0.7 10 3/uLBasophils Absolute Auto0.00.0- 0.1 10 3/uLImmature Granulocytes Abs Auto0.020.00-0.03 10 3/uLPerforming Lab:see noteML - [facility] foot LT wo con (Not yet reviewed by provider) Interpretation: Performing Lab: Notes/Report: Source Facility: [facility] [place] [address] [place] [address] Magnetic Resonance Report Signed Patient: ZOILA RAMOS MR#: [id number] : 1970 Acct:[id number] Age/Sex: 54 / F ADM Date: 05/15/24 Loc: MRI Attending Dr: Jordyn Bruce D.P.M. Ordering Physician: Jordyn Bruce D.P.M. Date of Service: 05/15/24 Procedure(s): MR foot LT wo con Accession Number(s): [id number] cc: Shayy Dela Cruz M.D.; Jordyn Bruce D.P.M. [place] [address] Patient Name: ZOILA RAMOS MRN: [id number]:[id number] date: 1970 Sex: F Assigned Patient Location: MRI Current Patient Location: MRI Accession/Order Number: [id number] Exam Date: 05/15/2024 14:45 Report Date: 05/15/2024 [...] Dictated By: Jake Pierson M.D. Signed By: 05/15/246 DD/ 46 TD/TT: Security Officers And Guards:XR foot LT min 3V (Not yet reviewed by provider) Interpretation: Performing Lab: Notes/Report: Source Facility: [place] [address] XRay Report Signed Patient: ZOILA RAMOS MR#: [id number] : 1970 Acct:[id number] Age/Sex: 54 / F ADM Date: 04/27/24 Loc: EC Attending Dr: Jordyn Bruce D.P.M. Ordering Physician: Jordyn Bruce D.P.M. Date of Service: 04/27/24 Procedure(s): XR foot LT min 3V Accession Number(s): [id number] cc: Shayy Dela Cruz M.D.; Jordyn Bruce D.P.M. [place] [address] Patient Name: ZOILA RAMOS MRN: [facility]:[id number] date: 1970 Sex: F Assigned Patient Location: Current Patient Location: Accession/Order Number: [id number] Exam Date: 04/27/2024 09:20 Report Date: 04/27/2024 [...] Signed By: 04/27/24 1350 DD/ 1347 TD/TT: Security Officers And Guards:MR ankle RT wo con (Not yet reviewed by provider) Interpretation: Performing Lab: Notes/Report: Source Facility: [place] [address] Magnetic Resonance Report Signed Patient: ZOILA RAMOS MR#: [id number] : 1970 Acct:[id number] Age/Sex: 54 / F ADM Date: 03/21/24 Loc: MRI Attending Dr: Jordyn Bruce D.P.M. Ordering Physician: Jordyn Bruce D.P.M. Date of Service: 03/21/24 Procedure(s): ankle RT wo con Accession Number(s): [id number] cc: Shayy Dela Cruz M.D.; Jordyn Bruce D.P.M. [place] [address] Patient Name: ZOILA RAMOS MRN: [id number]:[id number] date: 1970 Sex: F Assigned Patient Location: MRI Current Patient Location: Accession/Order Number: [id number] Exam Date: 03/21/2024 09:55 Report Date: 03/24/2024 06:53 At the request of: JORDYN BRUCE Procedure: ankle RT wo con HISTORY: Pain in [...] Dictated By: Shawn Marques M.D. Signed By: 03/24/24 0656 DD/ 0653 TD/TT: Security Officers And Guards:Tissue Culture (Not yet reviewed by provider) Interpretation: Performing Lab: Notes/Report: [facility] ,Tissue CultureSee Below For Report Tissue Culture Tissue CultureNo growth after 18-24 hours. Tissue Culture Tissue Culture Tissue Culture Tissue CultureNo growth in 36 - 48 hours. Tissue Culture Performing Lab:see noteLC - [facility] LB Reason For Referral Reason Right Achilles tear Diagnosis 1 Type 2 diabetes holli itus with diabetic polyneuropathy (E11.42) Diagnosis 2 Strain of right Achi lles tendon, subsequent encounter (S86.011D) Referral Organization [facility] (PODIATRY) Referring Provider First Name Jordyn Referring Provider Last Name [facility] Referring Provider Speciality Podiatry Referred Provider Specialty Physical The rapist Referral Priority Routine Medications Medication SIG (Take, Route, Frequency, Duration) Notes Start Date End Date Status Dexcom G7 [employer] - USE 4 TIMES A DAY DIRECT ED; Duration: 90 Days ActiveSulfamethoxazole-Trimethoprim 800-160 MGTAKE 1 TABLET BY MOUTH TWICE A DAY FOR 21 DAYS; Duration: 21ActiveFamotidine 20 MGTAKE 1 TABLET BY MOUTH DAILY AT BEDTIME Oral; Duration: 30 DaysActiveAmoxicillin-Pot Clavulanate 875-125 MGTAKE 1 TABLET BY MOUTH EVERY 12 HOURS FOR 21 DAYS; Duration: 21ActiveIbuprofen 600 MG Oral; Duration: 10 DaysActiveOzempic (0.25 or 0.5 MG/DOSE) 2 MG/3MLINJECT 0.25 MG SUBCUTANEOUSLY EVERY WEEK FOR 4 WEEKS Subcutaneous; Duration: 28 DaysActive HYDROcodone-Acetaminophen 5-325 MG1-2 tablet as needed Orally every 6 hrs; Duration: 5 days5ActiveBD Pen Needle Mini U/F 31G X 5 MM; Duration: 90 DaysActiveHYDROcodone-Acetaminophen 5-325 MG 1 tablet as needed Orally every 6 hrs prn; Duration: 7 days As needed 5ActiveHYDROcodone-Acetaminophen 5-325 MG1 tablet as needed Orally every 6 hrs; Duration: 5 days5ActivetiZANidine HCl 4 MG1 tablet at bedtime as needed Orally Three times a day; Duration: 7 days4Active Toujeo SoloStar 300 UNIT/MLINJECT 75 UNITS IN THE MORNING, 80 UNITS IN THE EVENING Subcutaneous; Duration: 87 DaysActive Social History Tobacco Use: Social History Observation Description Date Details (start date - stop date) Former Smoker NA - NA Tobacco Control (Standard) Question Answer Notes Tobacco use: Former smoker Problems Problem Type SNOMED Code ICD Code Onset Dates Problem Status W/U Status Risk Notes Problem Polyneuropathy due t o type 2 diabetes mellitus (383379431) Type 2 diabetes mellitus with diabetic polyneuropathy (E11.42) ActiveconfirmedProblemFoot ulcer due to type 2 diabetes mellitus (2941279694251) Type 2 diabetes mellitus with foot ulcer (E11.621)ActiveconfirmedProblemAcute osteomyelitis of ankle and/or foot (680593666)Other acute osteomyelitis, left ankle and foot (M86.172)ActiveconfirmedProblemUlcer of left foot (disorder) (089418737)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) ActiveconfirmedProblemAmputation stump pain (T87.89)Activeconfirmed Vital Signs Heart Rate 80 /min 05/16/2024 Uscoxndvktc18.3 degrees Klspzpewbc76/27/9004Mlsrwgcr75 %05/16/20243582Rvdwpg62 in 05/16/20240397Mwcepg088 lbs05/16/2024BMI37.31 kg/m205/16/2024 Procedures Procedure Date Ordered Date Performed Result Body Sit e HIEU Segmental Pressure Study of Lower Extremity 04/27/2024 N/A Encounters Encounter Location Date Provider Diagnosis [facility] (PODIATRY) [address] [place] [address] [place] [address] 03/07/2024 Jordyn Bruce Strain of right Achilles tendon, initial encounter S86.011A ; Type 2 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 and Strain of right Achilles tendon, subsequent encounter S86.011D [facility] (PODIATRY) [address] [place] [address] [place] [address] 04/04/2024 Jordyn Bruce Strain of right Achilles tendon, initial encounter S86.011A and Type 2 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 [facility] (PODIATRY) [address] [place] [address] [place] [address] 04/27/2024 Jordyn Bruce Other acute osteomyelitis, left ankle and foot M86.172 ; Type 2 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 ; Left foot pain M79.672 and Strain of right Achilles tendon, initial encounter S86.011A [facility] (PODIATRY) [address] [place] [address] [place] [address] 05/16/2024 [facility] Other acute osteomyelitis, left ankle and foot M86.[address] [facility] [place] (PODIATRY) [address] [place] [address] 03/19/2024 [facility] [place] (PODIATRY)[address] [place] [address]/[facility] [place] (PODIATRY)[address] [place] [address]/[facility] [place] (PODIATRY)[address] [place] [address]/10/2024[facility] (PODIATRY)[address] [place] [address]/[facility], left ankle and foot M86.172[facility] [place] (PODIATRY)[address] [place] [address]/[facility], left ankle and foot M86.172[facility] [place] (PODIATRY)[address] [place] [address]/[facility] (PODIATRY)[address] [place] [address]/07/2024[facility] (PODIATRY)[address] [place] [address]/09/2024[facility] Assessments Encounter Date Diagnosis (ICD Code) Assessment Notes Treatment Notes Treatment Clinical Notes Section Notes 03/07/2024 Strain of right Achi lles tendon, initial encounter (ICD-10 - S86.011A) Patient suffered another Achilles tendon injury last week and is very tender on examination. I am concerned for partial versus total Achilles tendon tear therefore recommended an ordered an MRI today. She may be partial protected weightbearing in her cam boot but recommended that she be in 3 wedgeswhich was placed in her boot today. She was prescribed [place] but stated that it made her extremely sleepy and therefore would like to continue with just Tylenol. If her pain is uncontrolled she will call and I would be happy to prescribe her something stronger than Tylenol.Although patient relates that her blood sugars have been much improved of late her last hemoglobin A1c was 9.9 and I am not chanel re she is a great surgical candidate if she does have a total rupture of her Achilles tendon. She also has difficulty being nonweightbearing so I recommended a knee scooter and also provided her a prescription for a walker to help with that short distances around her house. She will follow-up afterthe MRI is gybbrumq00/06/2024Type 2 diabetes mellitus with diabetic polyneuropathy (ICD-10 - E11.42)Last hemoglobin A1c was reportedly 9.912Strain of right Achilles tendon, initial encounter (ICD-10 - S86.011A)Patient is roughly 5 weeks from Achilles tendon [...] Prescription for physical therapy was provided as wasnonoperative therapy protocol was sent to the therapy department. She will follow-up in 4 weeks call sooner if iswjnb5604/04/2024Type 2 diabetes mellitus with diabetic polyneuropathy (ICD-10 - E11.42)05/16/2024Other acute osteomyelitis, left ankle and foot (ICD-10 - M86.172)Patient seen and evaluated. Patient education provided and [...] in 2 weeks. No new x-rays are zyqrvr4904/27/2024Other acute osteomyelitis, left ankle and foot (ICD-10 - M86.172)Patient seen and evaluated. Patient education provided. Patient had no known trauma to the second toe but developed pain and swelling prompting visit to the emergency department x-rays revealed cortical change to the distal tuft of the distal phalanx of the second toe consistent with osteomyelitis.She has not had a wound and denies any drainage. Radiographically findings are consistent with osteomyelitis but clinically less so therefore I ordered an MRI as well as lab work consisting of CBC, Chem-8, ESR and CRP. I recommended to continue Augmentin and Bactrim and an additional 2 weeks (whichwould be 4 weeks of Treatment) was sent to the pharmacy.She is also not had recent ABIs/noninvasivevascular studies so these were ordered as well. Patient will follow-up after the MRI was obtained and will call when she has her laboratory work completed for my review.04/27/2024Type 2 diabetes mellitus with diabetic polyneuropathy (ICD-10 - E11.42)06/18/2024Other acute osteomyelitis, left ankle and foot (ICD-10 - M86.172)06/18/2024Other acute osteomyelitis, left ankle and foot (ICD-10 - M86.172)Electronic Prior Authorization was requested for HYDROcodone-Acetaminophen 5-325 MG Tablet. Provider can order medication once approval received.04/27/2024Left foot pain (ICD-10 - M79.672)03/07/2024 Strain of right Achilles tendon, subsequent encounter (ICD-10 - S86.011D) 04/27/2024Strain of right Achilles tendon, initial encounter (ICD-10 [...] MEDIBLUE DUAL ADV PRIMARY MEDICARE [address] [place] [address] [id number] [facility] Zoila Ramos Self - patient is the insured MEDICAID [place] [address] OFFICE OF [place], [place] [id number] [id number], MarleneSelf - patient is the insured Medical (General) History Medical History History ICD Code diabetes arthritiscardiovascular diseaseobesitySurgical History Surgery Date(Month/Year) appendectomy cholecystectomyright shoulder surgery
--- OUTSIDE RECORDS SUMMARY | 2025-03-07 09:44 | XMS_ITS | Clinical Summary ---
Author Organization [facility] Address [address] [place] [address] Care Team Providers Care Fire Investigator Name Role Phone Unavailable Primary Care Provider Unavailabl e Family History Medical HistoryRelationNameCommentsDiabetesFatherHeart diseaseFatherHypertension FatherArthritisMotherDiabetesMotherHypertensionMotherRelationNameStatusComments FatherDeceasedMotherDeceased Social History Tobacco UseTypesPacks/DayYears UsedDateSmoking Tobacco: Never Assessed CommentsUnknownSex and Gender InformationValueDate RecordedSex Assigned at Not on fileLegal DwuXzhnrc26/15/2023 6:57 PM EDTGender IdentityNot on fileSexual OrientationNot on file Last Filed Vital Signs Vital SignReadingTime TakenCommentsBlood Bmasvbka560/7404 12:00 PM EDT Pulse--Temperature--Respiratory Rate--Oxygen Saturation--Inhaled Oxygen Concentration--Mqosvn57.3 kg (210 lb)09/02/2022 12:00 PM VKKOgxcfv601.5 cm (5' 2 )09/02/2022 12:00 PM EDTBody Mass Index38.41009/02/2022 12:00 PM EDT Plan of Treatment Not on file Insurance
--- OUTSIDE RECORDS SUMMARY | 2025-03-07 09:45 | XMS_ITS | Patient Health Record ---
Author Organization [facility] Address [address], [place] [address] Care Team Providers Care Tool Crib Lead Name Role Phone Sadi Bruce Unavailable [phone] Allergies Allergen (clinical drug ingredient) Drug/Non Drug Allergy documented on EMR Reaction Allergy Type Onset Date Status Latex latex (uncoded) Unknown Allergy ActivecodeineCodeineUnknownDrug AllergyActiveinsulin lisproInsulin LisproUnknown Drug AllergyActive Reason For Referral No Information Medications Medication SIG (Take, Route, Frequency, Duration) Notes Start Date End Date Status Carvedilol 6.25 MG Tablet Oral; Duration: 90 Day s ActivemetFORMIN HCl 1000 MG TabletOral; Duration: 90 DaysActiveHumaLOG KwikPen 200 UNIT/ML Solution Pen-injectorPLEASE SEE ATTACHED FOR DETAILED DIRECTIONS Subcutaneous; Duration: 88 DaysActiveToujeo Max SoloStar 300 UNIT/ML Solution Pen-injectorSubcutaneous; Duration: 90 DaysActiveLisinoprilActiveNexIUMActive MeloxicamActive Social History Section Notes: Patient is a nonsmoker. No alcohol use. Patient is a nonsmoker. No alcohol use. Patient is a nonsmoker. No alcohol use. Problems Problem Type SNOMED Code ICD Code Onset Dates Problem Status W/U Status Risk Notes Problem Non-pressure chronic ulcer of other part of left foot limited to breakdown of skin (L97.521)ActiveconfirmedProblemChronic osteomyelitis of ankle and/or foot (332477971)Other chronic osteomyelitis, left ankle and foot (M86.672)Active confirmedProblemFoot ulcer due to type 2 diabetes mellitus (2277007086014)Type 2 diabetes mellitus with foot ulcer (E11.621)ActiveconfirmedProblemDisorder of blood vessel (42981636)Other disorders of arteries, arterioles and capillaries in diseases classified elsewhere (I79.8)ActiveconfirmedProblemGangrene (22022459)Gangrene (I96)Activeconfirmed Encounters Encounter Location Date Provider Diagnosis [facility] [address], [place] [address] 11/29/2024 Sadi Bruce Charcot joint of left foot M14.672 and Diabetic peripheral neuropathy E11.42 [address] [address], [place] [address] 12/28/2024 Peter Highlander Charcot joint of left foot M14.672 ; Diabetic peripheral neuropathy E11.42 and Charcot's arthropathy associated with type 2 diabetes mellitus E11.610 [address] [address], [place] [address] 01/25/2025 Sadi Bruce Charcot joint of left foot M14.672 ; Charcot's arthropathy associated with type 2 diabetes mellitus E11.610 and Diabetic peripheral neuropathy E11.42 Assessments Encounter Date Diagnosis (ICD Code) Assessment Notes Treatment Notes Treatment Clinical Notes Section Notes 11/29/2024 Diabetic peripheral neuropathy ( ICD-10 - E11.42) 5Charcot joint of left foot (ICD-10 - M14.672) [...] foot within one day of f/u appointment 12/28/2024Diabetic peripheral neuropathy (ICD-10 - E11.42)5Charcot joint of left foot (ICD-10 - M14.672) Patient encouraged to be more compliant with the CAM boot. Fortunately all swelling has subsided and stability at midfoot improved therefore I ordered a [employer] boot and faxed script to tow truck driver as well as gave her a copy. She is to closely monitor her skin. follow up in 4 weeks with [facility] foot xrays 5Charcot joint of left foot (ICD-10 - M14.672) Patient is doing well and all edema and erythema have resolved. Midfoot is stable. She has been fitted for [employer] boot and hopeful she will recieve it within the next 3-4 weeks. I recommended to remainin the CAM boot until the [employer] is obtained. Monitor symptoms closely and call if any issues occur including pain, swelling redness or wound as she is still at high risk for major complication. f/u 6 wks with [facility] foot xrays 5Charcot's arthropathy associated with type 2 diabetes mellitus (ICD-10 - E11.610)5Charcot's arthropathy associated with type 2 diabetes mellitus (ICD-10 - E11.610)01/25/2025Diabetic peripheral neuropathy (ICD-10 - E11.42) Plan Of Treatment Next Appt Details Provider Name:Sadi arcos, 03/08/2025 10:00:00 AM, [address], [place], [address], Insurance Providers Payer Name Payer Address Payer Phone Subscriber Number Group Number Insured Name Patient Relationship to Insured Coverage Start Date Coverage End Date [employer] [place] Blue Medicare Access Value [address] [place] [address] [id number] Paty Ramos - patient [place] the [place] [id number], MarleneSelf - patient is the insured Medical (General) History Medical History History ICD Code Asthma Diabetes Type 1Heart DiseaseHigh Blood PressureHigh CholesterolSurgical History Surgery Date(Month/Year) Stints Toe amputation
--- OUTSIDE RECORDS SUMMARY | 2025-03-07 09:46 | XMS_ITS | CCD ---
Author Organization [facility] Care Team Providers Care Ict Educator Name Role Phone PHYSICIAN, DEFAULT Unavailable Unavailable PHYSICIAN, DEFAULT Unavailable Unavailable NADERER MATT Unavailable Unavailable PHYSICIAN, DEFAULT Unavailable Unavailable PHYSICIAN, DEFAULT Unavailable Unavailable NADERER MATT Unavailable Unavailable Sukh Dela Cruz Unavailable JOSE DE JESUS, DR SUKH Reyes Primary Care Unavailable MALCOLM EVANS Consulting Unavailable MALCOLM EVANS Attending Unavailable MALCOLM EVANS Admitting Unavailable DELA CRUZ, DR SUKH Reyes Consulting Unavailable DELA CRUZ, DR SUKH Reyes Attending Unavailable DELA CRUZ, DR SUKH Reyes Admitting Unavailable DELA CRUZ, DR SUKH Reyes Primary Care Unavailable JORDYN SANCHEZ Attending Unavailable JORDYN SANCHEZ Admitting Unavailable Colten Tirado Consulting Unavailable DELA CRUZ, DR SUKH Reyes Primary Care Unavailable JORDYN SANCHEZ Consulting Unavailable DELA CRUZ, DR SUKH Reyes Primary Care Unavailable MARKER ., DR FOWLER Attending Unavailable GRECHNY ., SHAY CESPEDES Consulting Unavailabl e MARKER ., DR FOWLER Admitting Unavailable AHJAVAD ARREGUIN Consulting Unavailable HAY ., DR CARPIO Consulting Unavailable HAY ., DR CARPIO Attending Unavailable DELA CRUZ, DR SUHK Reyes Primary Care Unavailable HAY ., DR CARPIO Admitting Unavailable DELA CRUZ, DR SUKH Reyes Attending Unavailable DELA CRUZ, DR SUKH Reyes Admitting Unavailable Colten Tirado Consulting Unavailable DELA CRUZ, DR SUKH Reyes Primary Care Unavailable DELA CRUZ, DR SUKH Reyes Consulting Unavailable DELA CRUZ, DR SUKH Reyes Consulting Unavailable DELA CRUZ, DR SUKH Reyes Attending Unavailable DELA CRUZ, DR SUKH Reyes Admitting Unavailable DELA CRUZ, DR SUKH Reyes Primary Care Unavailable DELA CRUZ, DR SUKH Reyes Primary Care Unavailable MISC, DR IVERSON Consulting Unavailable MISC, DR IVERSON Attending Unavailable MISC, DR IVERSON Admitting Unavailable DELA CRUZ, DR SUKH Reyes Attending Unavailable DELA CRUZ, DR SUKH Reyes Admitting Unavailable DELA CRUZ, DR SUKH Reyes Primary Care Unavailable Colten Tirado Consulting Unavailable DELA CRUZ, DR SUKH Reyes Consulting Unavailable Lynne Hernandez Unavailable Scally, Cathie Unavailable MD Sukh Dela Cruz Primary Care Provider MD Sukh Dela Cruz Attending Provider [phone] MD Sukh Dela Cruz Primary Care Provider MD Sukh Dela Cruz Attending Provider Scally, FATEMEH Calvillo Attending Provider Unavailable Primary Care Provider UnavailNACHO Alcala Attending Unavailable MARQUES MOROCHO Attending Unavailable Skuh Dela Cruz MD Primary Care Provider Jordyn Sanchez DPM Attending Provider Sukh Dela Cruz Primary Care Unavailable Jordyn Sanchez Admitting Unavailable Jordyn Sanchez Attending Unavailable Cathie Vargas Admitting Unavailable Adelely Cathie C Attending Unavailable Sukh Dela Cruz MD Primary Care Provider Scally DRYWALL CARRIER, Cathie Calvillo Attending Provider Allergies Allergy ClassificationReported Allergen(s)Allergy TypeDate of OnsetReaction(s) Facility (1 source)codeineDrug Nbqhadx19-91-6138JlwMartin [facility] (20 sources)Latex; Translations: [LATEX]Drug allergy (disorder)22-71-8268cczlm on skinMartin [facility] Hospital [facility] (20 sources)Codeine; Translations: [CODEINE]Drug Ecwjxbd77-43-1099fpcbcySelect [facility] (19 sources)LatexDrug -83-5213brdcn on skinKennesaw Frontier p[facility] Other (1 source)CodeineDrug AllergyThe [facility] (12 sources)cat danderAllergy to ysbwqwsaa96-05-6934QalxysatL[facility] (12 sources)dog danderAllergy to jwlhijqai69-20-4137RnoyoiboLakeHealth Beachwood Medical Center (12 sources)ozempicPropensity to adverse sirbjerjb59-81-0595NgwkuiziAdfjkwrwaOur Lady of Mercy [facility] (3 sources)Insulin Lispro; Translations: [INSULIN LISPRO]Drug Dsvxhen76-46-4902 [facility] (3 sources)tomato allergenic extract; Translations: [TOMATO]Drug Allergy 46-03-6821GeyCprekyTrinity Health System [facility] Medications Current Medications MedicationDrug Class(es)DatesSig (Normalized)Sig (Original)[id number] 200 actuat albuterol 0.09 mg/actuat metered dose inhaler (20 sources)beta2-Adrenergic AgonistStart: 01-23-2024 End: 23-45-8498ogyl 2 puff(s) by inhalation every four hours as neededAlbuterol Sulfate 90 mcg/actuation HFA aerosol inhaler Active 0 .ROUTE .COMPLEX 8.5 August 30, 2024 8:30am INHALE 2 PUFFS EVERY 4 HOURS NEEDED FOR WHEEZE OR FOR SHORTNESS OF BREATH Complies with drug therapyStart: 07-28-2023 End: 47-56-4023ekmx 1 puff(s) by inhalation every four hours as needed for wheezingAlbuterol Sulfate 90 mcg/actuation HFA aerosol inhaler Discontinued 2 PUFF INHALATION Every 4 hoursas needed for shortness of breath or wheezing 8.5 November 29, 2023 4:24pm January 23, 2024 1:13pmtake 2 puff(s) by inhalation every four hours as neededAlbuterol Sulfate HFA 108 (90 Base) MCG/ACT INHALE 2 PUFFS EVERY 4 HOURS NEEDED for 17 ActiveProAir HFA Not-Taking/PRNtake 2 puff(s) by inhalation every four hours as neededAlbuterol Sulfate HFA 108 (90 Base) MCG/ACT INHALE 2 PUFFS EVERY 4 HOURS NEEDED for 17 ActiveProAir HFA ActiveAlbuterol Sulfate 108 (90 Base) MCG/ACT (6 sources)take 1 puff(s) by inhalation every four hours as neededAlbuterol Sulfate 108 (90 Base) MCG/ACT 1 puff as needed Inhalation every 4 hrs Active Alcohol Swabs - (5 sources)Alcohol Swabs - as directed Activeamoxicillin 875 mg / clavulanate 125 mg oral tablet (1 source)Penicillin-class AntibacterialStart: 95-74-0577mola 1 tablet by mouth onceamoxicillin-pot clavulanate (AUGMENTIN) 875-125 mg per tablet Take 1 tablet by mouth every 12 (twelve) hours. 06/07/2024 ActiveAspir-81 (12 sources)Aspir-81 Activeaspirin 81 mg delayed release oral tablet (20 sources)Platelet Aggregation Inhibitor, Nonsteroidal Anti-inflammatory Drug Start: 21-48-7100Cvrtqtw (Adult Low Dose Aspirin) 81 mg tablet,delayed release (DR/EC) Active 81 MG PO Daily December 05, 2023 12:00am Complies with drug therapyStart: 07-06-2023 End: 49-77-7502Byzekph (Adult Low Dose Aspirin) 81 mg tablet,delayed release (DR/EC) Discontinued 81 MG PO Daily July 06, 2023 1:00am September 29, 2023 1:34pm take 1 tablet by mouth every twenty-four hoursAspirin Adult Low Dose 81 MG 1 tablet Orally Once a day Activeatorvastatin 40 mg oral tablet (20 sources)HMG-CoA Reductase InhibitorStart: 76-71-8495ktar 1 tablet by mouth once dailyAtorvastatin 40 mg tablet Active 0 .ROUTE .COMPLEX 90 March 13, 2024 5:10pm TAKE 1 TABLET BY MOUTH EVERY DAY FOR 90 DAYS Complies with drug therapyStart: 05-12-2023 End: 22-87-5106uogy 1 tablet by mouth once dailyAtorvastatin 40 mg tablet Discontinued 40 MG PO Daily July 19, 2023 12:00am March 13, 2024 5:10pm Blood-Glucose Meter,Continuous (Dexcom G7 Good Humor Vendor) misc (9 sources)Start: 65-32-9138Osgdg-Glucose Meter,Continuous (Dexcom G7 Good Humor Vendor) misc Active 0 .Route December 12, 2023 11:00pm As directedStart: 12-13-2023 Blood-Glucose Meter,Continuous (Dexcom G7 Good Humor Vendor) misc Active 0 .Route December 13, 2023 12:00am As directedStart: 96-00-1275Zwwec-Glucose Meter,Continuous (Dexcom G7 Good Humor Vendor) misc Active 0 .ROUTE December 13, 2023 12:00am As directed Blood-Glucose Sensor (Dexcom G7 Sensor) device (13 sources)Start: 75-03-8778Rqhzr-Glucose Sensor (Dexcom G7 Sensor) device Active 0 .Route July 16, 2024 10:30am As directed change every 10 days Start: 12-13-2023 End: 01-61-7820Jwdus-Glucose Sensor (Dexcom G7 Sensor) device Discontinued 0 .Route December 13, 2023 12:00am July 16, 2024 10:32am As directedStart: 81-53-9744Biefd-Glucose Sensor (Dexcom G7 Sensor) device Active 0 .Route December 12, 2023 11:00pm As directedStart: 52-19-8524Eicjf-Glucose Sensor (Dexcom G7 Sensor) device Active 0 .Route December 13, 2023 12:00am As directedStart: 55-86-7162Eblrv-Glucose Sensor (Dexcom G7 Sensor) device Active 0 .ROUTE December 13, 2023 12:00am As directedBlood-Glucose,Good Humor Vendor,Cont (Dexcom G7 Good Humor Vendor) misc (1 source)Start: 90-66-6172Siryt-Glucose,Good Humor Vendor,Cont (Dexcom G7 Good Humor Vendor) misc Active 0 .Route December 13, 2023 12:00am As directedcarvedilol 6.25 mg oral tablet (20 sources)alpha-Adrenergic Petty, beta-Adrenergic BlockerStart: 07-09-2024 End: 46-12-3101cjxw 1 tablet by mouth twice dailyCarvedilol 6.25 mg tablet Active 0 .ROUTE .COMPLEX 180 August 30, 2024 8:30am TAKE 1 TABLET BY MOUTH TWICE A DAY FOR 90 DAYS Complies with drug therapyStart: 10-10-2023 End: 43-24-9548afzv 1 tablet by mouth twice dailyCarvedilol 6.25 mg tablet Discontinued 6.25 MG PO Twice daily 180 March 09, 2024 10:42am July 09, 2024 11:48amStart: 07-06-2023 End: 48-20-3600lovu 1 tablet by mouth once daily at mealtimeCarvedilol 6.25 mg tablet Discontinued 6.25 MG PO Daily July 06, 2023 1:00am October 10, 2023 3:58pm FreeTextSi tablet with food Orally once a day; Note: Source Status: Taking; Refills: 3; Qty: 90 Tablet; Provider: Jose De Jesus Hall 1 tablet by mouth every twenty-four hoursCarvedilol 6.25 MG 1 tablet with food Orally once a day for 90 days Activecetirizine hydrochloride 10 mg oral tablet (12 sources)Histamine-1 Receptor Antagonisttake 1 tablet by mouth every twenty- four hoursZyrTEC Allergy 10 MG 1 tablet Orally Once a day ActiveDexcom G7 Good Humor Vendor - (4 sources)Start: 07-91-3516Zljudy G7 Good Humor Vendor - as directed as directed 4 x daily for 365 days E 11.65, Z 79.4 Jun, ActiveDexcom G7 Sensor - (4 sources)Start: 44-95-4610Ldsdqh G7 Sensor - as directed in vitro every 10 days for 90 days E 11.65, Z79.4 02 Jun, 2023 Activeesomeprazole 40 mg delayed release oral capsule (20 sources)Proton Pump InhibitorStart: 02-06-2024 End: 04-12-5157qhtm 1 capsule by mouth once dailyEsomeprazole Magnesium 40 mg capsule,delayed release(DR/EC) Active 0 .ROUTE .COMPLEX August 30, 2024 8:30am TAKE ONE CAPSULE BY MOUTH DAILY Complies with drug therapyStart: 66-24-6817sahm 1 capsule by mouth once dailyEsomeprazole Magnesium Active 0 .ROUTE .COMPLEX February 06, 2024 9:00am TAKE ONE CAPSULE BY MOUTH DAILYStart: 07-06-2023 End: 10-88-4156qgkk 1 capsule by mouth once dailyEsomeprazole Magnesium 40 mg capsule,delayed release(DR/EC) Discontinued 40 MG PO Daily July 06, 2023 1:00am February 06, 2024 9:00am FreeTextSig: TAKE ONE CAPSULE BY MOUTH DAILY 90; Note: Source Status: Taking; Refills: 1; Qty: 90 Each; Provider: Jose De Jesus Gonzalez actuat fluticasone propionate 0.11 mg/actuat metered dose inhaler (20 sources)CorticosteroidStart: 63-96-1790uibo 2 spray(s) nasal route in the morningfluticasone propionate (FLONASE) 50 mcg/actuation nasal spray Administer 2 sprays into each nostrilin the morning. 04/30/2024 ActiveStart: 94-92-6005uqzj 1 puff(s) by inhalation twice dailyFluticasone Propionate Active 2 PUFF INHALATION Twice daily February 07, 2024 8:24amStart: 02-01-2024 End: 14-02-9820Ndzbgsdzygw Propionate 50 mcg/actuation spray,suspension Discontinued 2 SPRAY INTRANASAL Daily March 26, 2024 2:10pm July 04, 2024 11:36amStart: 11-29-2023 End: 54-74-4195jmtj 1 puff(s) by inhalation twice dailyFluticasone Propionate Discontinued 2 PUFF INHALATION Twice daily November 29, 2023 4:24pm 2023 8:24amStart: 90-71-2888aflc 1 puff(s) by inhalation twice dailyFluticasone Propionate Active 2 PUFF INHALATION Twice daily November 29, 2023 4:24pmStart: 07-28-2023 End: 72-76-1897ogcl 1 puff(s) by inhalation twice dailyFluticasone Propionate 110 mcg/actuation HFA aerosol inhaler Active 2 PUFF INHALATION Twice daily August 13, 2024 2:43pm Complies with drug therapyStart: 07-28-2023 End: 15-96-5349unno 1 puff(s) by inhalation twice dailyFluticasone Propionate Discontinued 2 PUFF INHALATION Twice daily July 28, 2023 12:40pm November 29, 2023 4:24pmStart: 71-46-4079qhqt 1 puff(s) by inhalation twice dailyFluticasone Propionate Active 2 PUFF INHALATION Twice daily July 28, 2023 12:40pmStart: 07-06-2023 End: 77-32-8327gezw 2 puff(s) by mouth twice dailyFluticasone Propionate 110 mcg/actuation HFA aerosol inhaler Discontinued INHALATION July 06, 2023 1:00am July 28, 2023 12:43pm FreeTextSig: INHALE 2 PUFFS BY MOUTH TWICE A DAY; Note: Source Status: Taking; Refills: 1; Qty: 36 Gram; Provider: Jose De Jesus Lucas ( )Start: 07-06-2023 End: 60-98-8548bodz 2 spray(s) nasal route once dailyFluticasone Propionate 50 mcg/actuation spray,suspension Discontinued 2 SPRAY INTRANASAL Daily July 06, 2023 1:00am February 01, 2024 4:49pm FreeTextSi spray in each nostril Nasally Once a day;Note: Source Status: Taking; Provider: Sam Brand ( )Start: 07-06-2023 End: 90-88-1383ttej 2 puff(s) by mouth twice dailyFluticasone Propionate Discontinued INHALATION July 06, 2023 1:00am July 28, 2023 12:43pm FreeT extSig: INHALE 2 PUFFS BY MOUTH TWICE A DAY; Note: Source Status: Taking; Refills: 1; Qty: 36 Gram;Provider: Jose De Jesus Lucas ( )Start: 57-24-0019bhvq 2 puff(s) by mouth twice dailyFluticasone Propionate Active INHALATION July 06, 2023 1:00am FreeTextSig: INHALE 2 PUFFS BY MOUTH TWICE A DAY; Note: Source Status: Taking; Refills: 1; Qty: 36 Gram; Provider: Jose De Jesus Lucas ( )take 2 puff(s) by inhalation in the morningFLOVENT HFA 110 mcg/actuation inhaler Inhale 2 puffs in the morning and 2 puffs before bedtime. Activetake 2 puff(s) by mouth twice dailyFlovent HFA 110 MCG/ACT INHALE 2 PUFFS BY MOUTH TWICE A DAY for 90 Activetake 2 spray(s) nasal route once dailyFluticasone Propionate 50 MCG/ACT 2 spray in each nostril Nasally Once a day Activetake 2 spray(s) nasal route once dailyFluticasone Propionate 50 MCG/ACT 2 spray in each nostril Nasally Once a day ActiveFluticasone Propionate 110 mcg/actuation HFA aerosol inhaler (20 sources)Start: 08-63-7772uixt 1 puff(s) by inhalation twice dailyFluticasone Propionate 110 mcg/actuation HFA aerosol inhaler Active 2 PUFF INHALATION Twice daily August 13, 2024 2:43pmStart: 06-18-2024 End: 45-14-1316wfjt 1 puff(s) by inhalation twice dailyFluticasone Propionate 110 mcg/actuation HFA aerosol inhaler Discontinued 2 PUFF INHALATION Twice daily June 18, 2024 4:16pm August 13, 2024 2:43pmStart: 51-36-3780rojx 1 puff(s) by inhalation twice dailyFluticasone Propionate 110 mcg/actuation HFA aerosol inhaler Active 2 PUFF INHALATION Twice daily June 18, 2024 4:16pmStart: 04-09-2024 End: 56-87-9017utye 1 puff(s) by inhalation twice dailyFluticasone Propionate 110 mcg/actuation HFA aerosol inhaler Discontinued 2 PUFF INHALATION Twice daily April 09, 2024 5:53pm June 18, 2024 4:16pmStart: 60-42-4393sdnj 1 puff(s) by inhalation twice dailyFluticasone Propionate 110 mcg/actuation HFA aerosol inhaler Active 2 PUFF INHALATION Twice daily April 09, 2024 4:53pmStart: 02-07-2024 End: 84-18-6926kxiz 1 puff(s) by inhalation twice dailyFluticasone Propionate 110 mcg/actuation HFA aerosol inhaler Discontinued 2 PUFF INHALATION Twice daily February 07, 2024 8:24am April 09, 2024 5:53pmStart: 02-07-2024 End: 04-10-9017stfw 1 puff(s) by inhalation twice dailyFluticasone Propionate 110 mcg/actuation HFA aerosol inhaler Discontinued 2 PUFF INHALATION Twice daily February 07, 2024 7:24am April 09, 2024 4:53pmStart: 11-29-2023 End: 73-70-3950dcyu 1 puff(s) by inhalation twice dailyFluticasone Propionate 110 mcg/actuation HFA aerosol inhaler Discontinued 2 PUFF INHALATION Twice daily November 29, 2023 4:24pm February 07, 2024 8:24amStart: 11-29-2023 End: 04-47-2599xrzk 1 puff(s) by inhalation twice dailyFluticasone Propionate 110 mcg/actuation HFA aerosol inhaler Discontinued 2 PUFF INHALATION Twice daily November 29, 2023 3:24pm February 07, 2024 7:24amStart: 07-28-2023 End: 95-23-5693rqpc 1 puff(s) by inhalation twice dailyFluticasone Propionate 110 mcg/actuation HFA aerosol inhaler Discontinued 2 PUFF INHALATION Twice daily July 28, 2023 12:40pm November 29, 2023 4:24pmStart: 07-28-2023 End: 44-83-6466njxb 1 puff(s) by inhalation twice dailyFluticasone Propionate 110 mcg/actuation HFA aerosol inhaler Discontinued 2 PUFF INHALATION Twice daily July 28, 2023 11:40am November 29, 2023 3:24pmStart: 07-06-2023 End: 66-97-2807dmct 2 puff(s) by mouth twice dailyFluticasone Propionate 110 mcg/actuation HFA aerosol inhaler Discontinued INHALATION July 06, 2023 1:00am July 28, 2023 12:43pm FreeTextSig: INHALE 2 PUFFS BY MOUTH TWICE A DAY; Note: Source Status: Taking; Refills: 1; Qty: 36 Gram; Provider: Jose De Jesus Lucas ( )Start: 07-06-2023 End: 51-02-1242vxmm 2 puff(s) by mouth twice dailyFluticasone Propionate 110 mcg/actuation HFA aerosol inhaler Discontinued INHALATION July 06, 2023 12:00am July 28, 2023 11:43am FreeTextSig: INHALE 2 PUFFS BY MOUTH TWICE A DAY; Note: Source Status: Taking; Refills: 1; Qty: 36 Gram; Provider: Jose De Jesus Lucas ( )FreeStyle Carmine 3 Anselmo - (3 sources)Start: 54-54-9754YwtjIenyr Carmine 3 Anselmo - as directed invitro 4 times daily for 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 Jun, ActiveFreeStyle Carmine 3 Sensor - (3 sources)Start: 29-29-1841RxftCcznh Carmine 3 Sensor - as directed invitro change every 14 days for 84 days Dx E11.65 Jun, Active hydroCHLOROthiazide 12.5 mg oral capsule (7 sources)Thiazide Diuretictake 1 capsule by mouth every twenty-four hours hydroCHLOROthiazide 12.5 MG 1 capsule in the morning Orally Once a day Active ibuprofen 600 mg oral tablet (3 sources)Nonsteroidal Anti-inflammatory DrugStart: 08-23-2024 End: 20-47-9520qyti 1 tablet by mouth every eight hours as needed for pain Ibuprofen 600 mg tablet Active 600 MG PO Every 8 hours as needed for pain 30 September 06, 2024 12:44pm Complies with drug therapy3 ml insulin glargine 300 unt/ml pen injector (20 sources)Insulin AnalogStart: 30-81-6249Fewycpa Glargine U-300 Conc (Toujeo Max U-300 Solostar) 300 unit/mL (3 mL) insulin pen Active 95 UNIT SUBCUT Daily November 19, 2024 4:53pm Titrate to 120 u daily, has written instructions. DispenseToujeo Solostar if any procurement/ delay issues Complies with drug therapyStart: 08-07-2024 End: 91-60-2855Quzvjsi Glargine U-300 Conc (Toujeo Max U-300 Solostar) 300 unit/mL (3 mL) insulin pen Lnutvlbhfmfp11 UNIT SUBCUT Daily August 07, 2024 1:22pm November 19, 2024 4:54pm Titrate to 100 u daily, has written instructions. Dispense ToujeoSolostar if any procurement/ delay issuesStart: 04-14-4445BRIQAI MAX U-300 SOLOSTAR 300 unit/mL (3 mL) insulin pen Inject 95 Unit under the skin in the morning. 05/24/2024 ActiveStart: 03-08-2024 End: 19-17-0793Jcjxyzy Glargine U-300 Conc (Toujeo Max U-300 Solostar) 300 unit/mL (3 mL) insulin pen Tohqnaadonre07 UNIT SUBCUT Daily May 28, 2024 10:45am August 07, 2024 1:25pm Titrate to 100 u daily, has written instructions. Dispense ToujeoSolostar if any procurement/ delay issuesStart: 02-24-2024 End: 96-51-8879Kvteiyv Glargine U-300 Conc (Toujeo Max U-300 Solostar) 300 unit/mL (3 mL) insulin pen Nnaxcsbjhymr44 UNIT SUBCUT Daily February 24, 2024 12:00am March 08, 2024 12:15pm Titrate to 100 u daily, has written instructions. Dispense ToujeoSolostar if any procurement/ delay issuesStart: 02-23-2024 End: 82-71-0303Xihweme Glargine U-300 Conc (Toujeo Solostar U-300 Insulin) 300 unit/mL (1.5 mL) insulin pen Discontinued 84 UNIT SUBCUT Daily February 23, 2024 1:21pm May 30, 2024 12:00pmStart: 12-13-2023 End: 69-80-7774Ctforqz Glargine U-300 Conc (Toujeo Solostar U-300 Insulin) 300 unit/mL (1.5 mL) insulin pen Discontinued 80 UNIT SUBCUT Daily December 13, 2023 1:08pm February 23, 2024 1:22pmStart: 08-24-2023 End: 39-04-3384Xkpyisw Glargine U-300 Conc (Toujeo Solostar U-300 Insulin) 300 unit/mL (1.5 mL) insulin pen Discontinued 76 UNIT SUBCUT Daily August 24, 2023 2:13pm December 13, 2023 1:15pmStart: 07-06-2023 End: 86-11-1151Qjclydv Glargine U-300 Conc (Toujeo Solostar U-300 Insulin) 300 unit/mL (1.5 mL) insulin pen Discontinued 78 UNIT SUBCUT Daily July 28, 2023 12:38pm August 24, 2023 2:15pmToujeo SoloStar 300 UNIT/ML 78 u Subcutaneous daily for 90 days ActiveToujeo SoloStar 300 UNIT/ML 75 Units q am 80 Units q PM 75 U q am , 80 U q pm for 90 days ActiveToujeo SoloStar 300 UNIT/ML INJECT 75U UNDER SKIN TWICE DAILY for 79 ActiveInsulin Glargine U-300 Conc (Toujeo Max U- 300 Solostar) 300 unit/mL (3 mL) insulin pen (16 sources)Start: 52-02-7241Wzfouqg Glargine U-300 Conc (Toujeo Max U-300 Solostar) 300 unit/mL (3 mL) insulin pen Active 95 UNIT SUBCUT Daily August 07, 2024 1:22pm Titrate to 100 u daily, has written instructions. Dispense Yousuf jeoSolostar if any procurement/ delay issuesStart: 05-28-2024 End: 88-46-6057Xpcquek Glargine U-300 Conc (Toujeo Max U-300 Solostar) 300 unit/mL (3 mL) insulin pen Ceykcymctsgc34 UNIT SUBCUT Daily May 28, 2024 10:45am August 07, 2024 1:25pm Titrate to 100 u daily, has written instructions. Dispense ToujeoSolostar if any procurement/ delay issuesStart: 31-26-6348Lftfedb Glargine U-300 Conc (Toujeo Max U-300 Solostar) 300 unit/mL (3 mL) insulin pen Active 87 UNIT SUBCUT Daily May 28, 2024 10:45am Titrate to 100 u daily, has written instructions. Dispense ToujeoSolostar if any procurement/ delay issuesStart: 97-49-1944Qtfsazx Glargine U-300 Conc (Toujeo Max U-300 Solostar) 300 unit/mL (3 mL) insulin pen Active 87 UNIT SUBCUT Daily May 28, 2024 9:45am Titrate to 100 u daily, has written instructions. Dispense ToujeoSolostar if any procurement/ delay issuesStart: 03-08-2024 End: 16-11-9670Pvglooj Glargine U-300 Conc (Toujeo Max U-300 Solostar) 300 unit/mL (3 mL) insulin pen Ssmhmbjeiuab80 UNIT SUBCUT Daily March 08, 2024 12:14pm May 28, 2024 10:48am Titrate to 100 u daily, has written instructions. Dispense ToujeoSolostar if any procurement/ delay issuesStart: 03-08-2024 End: 36-60-6000Edaseeb Glargine U-300 Conc (Toujeo Max U-300 Solostar) 300 unit/mL (3 mL) insulin pen Cqtyylbxcsli17 UNIT SUBCUT Daily March 08, 2024 11:14am May 28, 2024 9:48am Titrate to 100 u daily, has written instructions. Dispense ToujeoSolostar if any procurement/ delay issuesStart: 79-29-7517Vyzfkpf Glargine U-300 Conc (Toujeo Max U-300 Solostar) 300 unit/mL (3 mL) insulin pen Active 87 UNIT SUBCUT Daily March 08, 2024 11:14am Titrate to 100 u daily, has written instructions. Dispense ToujeoSolostar if any procurement/ delay issuesStart: 02-24-2024 End: 71-65-4273Pkllkks Glargine U-300 Conc (Toujeo Max U-300 Solostar) 300 unit/mL (3 mL) insulin pen Oobtmswvkrdl83 UNIT SUBCUT Daily February 24, 2024 12:00am March 08, 2024 12:15pm Titrate to 100 u daily, has written instructions. Dispense ToujeoSolostar if any procurement/ delay issuesStart: 02-24-2024 End: 17-39-8106Kbanwbp Glargine U-300 Conc (Toujeo Max U-300 Solostar) 300 unit/mL (3 mL) insulin pen Ekzudrqzhoug39 UNIT SUBCUT Daily February 23, 2024 11:00pm March 08, 2024 11:15am Titrate to 100 u daily, has written instructions. Dispense ToujeoSolostar if any procurement/ delay issuesisopropyl alcohol 0.7 ml/ml medicated pad (20 sources)Start: 12-23-2023 End: 55-72-3550Gxrxgul Swabs pads, medicated Active 1 PAD TOPICAL Three times daily as needed for Dx E11.65 or insurance preferred 300 December 23, 2023 11:17am Use to cleanse skin before checking blood sugar Complies with drug therapyStart: 07-06-2023 End: 43-96-3874Amsapgu Swabs pads, medicated Discontinued PAD TOPICAL July 06, 2023 1:00am December 23, 2023 11:13am FreeTextSig: as directed 4 times a day; Note: Source Status: Taking; Refills: 3; Provider: Jose De Jesus Lucas EAlcohol Swabs - as directed 4 times a day for 30 days ActiveAlcohol Swabs - as directed Active metFORMIN hydrochloride 1000 mg oral tablet (20 sources)BiguanideStart: 52-94-1498Uqkwu: 11-16-2024 End: 32-30-6590Ivvqwwlqh 1,000 mg tablet Discontinued 0 .ROUTE .COMPLEX 180 November 16, 2024 8:56am December 13, 2024 1:14pm TAKE 1 TABLET TWICE A DAYStart: 08-07-2024 End: 46-48-7405Dzcshuhfp 1,000 mg tablet Discontinued 500 MG PO Twice daily August 07, 2024 1:24pm November 1658:56amStart: 05-28-2024 End: 54-82-5419Djzxcznwp 1,000 mg tablet Discontinued 0 .ROUTE .COMPLEX 180 May 28, 2024 6:00pm August 07, 2024 1:25pm TAKE 1 TABLET TWICE A DAYStart: 07-06-2023 End: 52-54-4453zhbv 1 tablet by mouth once dailyMetformin 1,000 mg tablet Discontinued 1000 MG PO Daily July 19, 2023 11:06am May 2856:00pm FreeTextSi tablet with a meal Orally Once a day; Note: Source Status: Continue; Provider: Jose De Jesus Hall 0.5 tablet by mouth in the morning metFORMIN (GLUCOPHAGE) 1000 mg tablet Apply 0.5 tablets (500 mg total) to the mouth or throat in the morning and 0.5 tablets (500 mg total) in the evening. Apply with meals. 250mg in am, 250mg in pm.Activetake 1 tablet by mouth every twenty-four hoursmetFORMIN HCl 1000 mg 1 tablet with a meal Orally Once a day Activetake 1 tablet by mouth twice dailymetFORMIN HCl 1000 mg TAKE 1 (ONE) TABLET BY MOUTH TWO TIMES DAILY for 90 Activemetoprolol tartrate 25 mg oral tablet (12 sources)beta-Adrenergic Blockertake 1 tablet by mouth every twelve hours Metoprolol Tartrate 25 MG 1 tablet with food Orally Twice a day Active montelukast 10 mg oral tablet (20 sources)Leukotriene Receptor AntagonistStart: 07-06-2023 End: 63-08-8776plft 1 tablet by mouth once dailyMontelukast (Singulair) 10 mg tablet Active 10 MG PO Daily September 29, 2023 1:39pm Complies with drugtherapytake 1 tablet by mouth every twenty-four hoursSingulair 10 MG 1 tablet Orally Once a day ActiveNitro Sublingual 0.4 0.4mg (20 sources)Nitro Sublingual 0.4 0.4mg 1 Sublingual Tablet As Needed for 30 days Not-Taking/PRNNitro Sublingual 0.4 0.4mg 1 Sublingual Tablet As Needed for 30 days ActiveNitro Sublingual 0.4 0.4mg 1 Sublingual Every 5min x3 for 30 days ActiveNitro Sublingual 0.4 0.4mg 1 Sublingual Every 5min x3 ActiveOneTouch Verio - (12 sources)OneTouch Verio - USE ONE STRIP FOUR TIMES A DAY ActiveOneTouch Verio - USE ONE STRIP FOUR TIMES A DAY for 30 days ActiveOneTouch Verio - USE ONE STRIP FOUR TIMES A DAY for 30 Activesimethicone 125 mg oral capsule (20 sources)Start: 67-59-7918Hrhivrzjsgd (Gas-X Extra Strength) 125 mg capsule Active 250 MG PO Daily at bedtime as needed September 29, 2023 1:39pm Complies with drug therapyStart: 07-28-2023 End: 65-31-0515Btbiiltissu (Gas-X Extra Strength) 125 mg capsule Discontinued 125 MG PO 1 to 2 times per day as needed July 28, 2023 12:00am September 29, 2023 1:40pmsulfamethoxazole 800 mg / trimethoprim 160 mg oral tablet (1 source)Dihydrofolate Reductase Inhibitor Antibacterial, Sulfonamide AntimicrobialStart: 85-52-4457dplq 1 tablet by mouth once in the morning sulfamethoxazole-trimethoprim (BACTRIM DS) 800-160 mg per tablet Take 1 tablet by mouth in the morning and 1 tablet before bedtime. 06/07/2024 Active Completed/Discontinued Medications MedicationDrug Class(es)DatesSig (Normalized)Sig (Original)acetaminophen 325 mg / HYDROcodone bitartrate 5 mg oral tablet (2 sources)Opioid AgonistStart: 08-23-2024 End: 95-03-9438fqur 1 tablet by mouth every six hours as neededHydrocodone- Acetaminophen 5-325 mg tablet Discontinued 1 TAB PO Every 6 hours as needed July 12:00am December 13, 2024 1:10pmazithromycin 250 mg oral tablet (18 sources)Macrolide AntimicrobialStart: 17-72-0681Yoznwqulzvdt 250 MG as directed Orally 2 tabs po today, then 1 tab daily x 4 more days for 5 Jun, Not-Taking/PRNBlood-Glucose Meter,Continuous (Freestyle Carmine 3 Anselmo) misc (16 sources)Start: 07-28-2023 End: 18-48-6019Pwkkd-Glucose Meter,Continuous (Freestyle Carmine 3 Anselmo) misc Discontinued EACH .ROUTE .MEDSUPPLY July 27, 2023 11:00pm December 13, 2023 12:09pm As directedStart: 07-28-2023 End: 23-78-4141Osekd-Glucose Meter,Continuous (Freestyle Carmine 3 Anselmo) misc Discontinued EACH .ROUTE .MEDSUPPLY July 28, 2023 12:00am December 13, 2023 1:09pm As directedStart: 14-45-5691Rmpyd-Glucose Meter,Continuous (Freestyle Carmine 3 Anselmo) misc Active EACH .ROUTE .MEDSUPPLY July 28, 2023 12:00am As directedBlood-Glucose Sensor (Freestyle Carmine 3 Sensor) device (17 sources)Start: 07-28-2023 End: 59-66-8283Vtjow-Glucose Sensor (Freestyle Carmine 3 Sensor) device Discontinued EACH .ROUTE .MEDSUPPLY July 27, 2023 11:00pm December 13, 2023 12:09pm As directedStart: 07-28-2023 End: 05-63-0621Kbbaj-Glucose Sensor (Freestyle Carmine 3 Sensor) device Dis[facility] July 28, 2023 12:00am December 13, 2023 1:09pm As directedStart: 71-97-7296Pdkxy-Glucose Sensor (Freestyle Carmine 3 Sensor) device Active EACH .ROUTE .MEDSUPPLY July 28, 2023 12:00am As directedBlood-Glucose,Good Humor Vendor,Cont (Freestyle Carmine 3 Anselmo) misc (1 source)Start: 07-28-2023 End: 88-19-3810Hmexc-Glucose,Good Humor Vendor,Cont (Freestyle Carmine 3 Anselmo) misc Discontinued EACH .ROUTE .MEDSUPPLY July 28, 2023 12:00am December 13, 2023 1:09pm As directedEsomeprazole Magnesium 40 mg capsule,delayed release(DR/EC) (5 sources)Start: 02-06-2024 End: 20-01-2026ssgy 1 capsule by mouth once dailyEsomeprazole Magnesium 40 mg capsule,delayed release(DR/EC) Discontinued 0 .ROUTE .COMPLEX 90 February 06, 2024 9:00am March 09, 2024 10:43am TAKE ONE CAPSULE BY MOUTH DAILYStart: 02-06-2024 End: 04-71-0862avtr 1 capsule by mouth once dailyEsomeprazole Magnesium 40 mg capsule,delayed release(DR/EC) Discontinued 0 .ROUTE .COMPLEX February 06, 2024 8:00am March 09, 2024 9:43am TAKE ONE CAPSULE BY MOUTH DAILYfamotidine 20 mg oral tablet (20 sources)Histamine-2 Receptor AntagonistStart: 07-09-2024 End: 66-05-6580kkfb 1 tablet by mouth once daily at bedtimeFamotidine 20 mg tablet Discontinued 0 .ROUTE .COMPLEX November 16, 2024 8:55am December 13, 2024 1:09pm TAKE 1 TABLET BY MOUTH DAILY AT BEDTIMEStart: 08-22-2023 End: 85-99-2584lunn 1 tablet by mouth once daily at bedtime as neededFamotidine 20 mg tablet Discontinued 20 MG PO Daily at bedtime as needed September 29, 2023 1:37pm March 09, 2024 10:43amglipiZIDE 10 mg oral tablet (20 sources)SulfonylureaStart: 08-24-2023 End: 34-48-3553elin 5 mg by mouth twice daily, then take 2 tablets by mouth at mealtimeGlipizide 10 mg tablet Discontinued 5 MG PO Twice daily 60 March 08, 2024 1:53pm June 06, 2024 9:23am take 5 mg with 2 largest mealsStart: 30-32-3788bzxk 5 mg by mouth twice daily at mealtimeGlipizide Active 5 MG PO Twice daily August 24, 2023 2:14pm FreeTextSig: take 5 mg twice daily with meals; Note: Source Status: Continue; Provider: Sam Livetart: 07-06-2023 End: 58-87-0431avxf 1 tablet by mouth twice daily at mealtimeGlipizide 10 mg tablet Discontinued 10 MG PO Twice daily July 06, 2023 1:00am August 24, 2023 2:15pm FreeTextSig: take 1 tablet twice daily with meals; Note: Source Status: Continue; Provider: Jose De Jesus Hall 2 tablets by mouth twice dailyglipiZIDE 10 mg TAKE 2 (TWO) TABLET BY MOUTH TWO TIMES DAILY for 90 ActiveInsulin Aspart U-100 (Novolog Flexpen U-100 Insulin) 100 unit/mL (3 mL) insulin pen (17 sources)Start: 07-12-2023 End: 02-63-9576zkfaok 1 dose by subcutaneous injection once dailyInsulin Aspart U-100 (Novolog Flexpen U-100 Insulin) 100 unit/mL (3 mL) insulin pen Discontinued 1 sliding scale dose SUBCUT Use as Directed July 11, 2023 11:00pm July 19, 2023 10:10am ICR 1:5, ISS 1:10, expect up to 100 u per day. Did not tolerate LisproStart: 07-12-2023 End: 49-22-5358sdrywv 1 dose by subcutaneous injection once dailyInsulin Aspart U-100 (Novolog Flexpen U-100 Insulin) 100 unit/mL (3 mL) insulin pen Discontinued 1 sliding scale dose SUBCUT Use as Directed July 12, 2023 12:00am July 19, 2023 11:10am ICR 1:5, ISS 1:10, expect up to 100 u per day. Did not tolerate Lispro3 ml insulin aspart, human 100 unt/ml pen injector (1 source)Insulin AnalogStart: 07-12-2023 End: 38-26-7444wmchgb 1 dose by subcutaneous injection once dailyInsulin Aspart U-100 (Novolog Flexpen U-100 Insulin) 100 unit/mL (3 mL) insulin pen Discontinued 1 sliding scale dose SUBCUT Use as Directed July 12, 2023 12:00am July 19, 2023 11:10am ICR 1:5, ISS 1:10, expect up to 100 u per day. Did not tolerate LisproInsulin Glargine U-300 Conc (Toujeo Solostar U-300 Insulin) 300 unit/mL (1.5 mL) insulin pen (20 sources)Start: 02-23-2024 End: 06-27-6784Mchtigb Glargine U-300 Conc (Toujeo Solostar U-300 Insulin) 300 unit/mL (1.5 mL) insulin pen Discontinued 84 UNIT SUBCUT Daily February 23, 2024 1:21pm May 30, 2024 12:00pmStart: 02-23-2024 End: 32-60-8182Btncwda Glargine U-300 Conc (Toujeo Solostar U-300 Insulin) 300 unit/mL (1.5 mL) insulin pen Discontinued 84 UNIT SUBCUT Daily February 23, 2024 12:21pm May 30, 2024 11:00amStart: 98-10-1529Oufcjvj Glargine U-300 Conc (Toujeo Solostar U-300 Insulin) 300 unit/mL (1.5 mL) insulin pen Bafftr46 UNIT SUBCUT Daily February 23, 2024 12:21pmStart: 02-04-8307Hmymqet Glargine U- 300 Conc (Toujeo Solostar U-300 Insulin) 300 unit/mL (1.5 mL) insulin pen Active 84 UNIT SUBCUT Daily February 23, 2024 1:21pmStart: 12-13-2023 End: 82-98-1977Qqiwlnj Glargine U-300 Conc (Toujeo Solostar U-300 Insulin) 300 unit/mL (1.5 mL) insulin pen Discontinued 80 UNIT SUBCUT Daily December 13, 2023 12:08pm February 23, 2024 12:22pmStart: 12-13-2023 End: 86-93-2006Ayagfbl Glargine U-300 Conc (Toujeo Solostar U-300 Insulin) 300 unit/mL (1.5 mL) insulin pen Discontinued 80 UNIT SUBCUT Daily December 13, 2023 1:08pm February 23, 2024 1:pmStart: 75-35-4472Yqrhfmw Glargine U-300 Conc (Toujeo Solostar U-300 Insulin) 300 unit/mL (1.5 mL) insulin pen Lbhzhk39 UNIT SUBCUT Daily December 13, 2023 1:08pmStart: 08-24-2023 End: 65-71-3621Qqaxfti Glargine U-300 Conc (Toujeo Solostar U-300 Insulin) 300 unit/mL (1.5 mL) insulin pen Discontinued 76 UNIT SUBCUT Daily August 24, 2023 1:13pm December 13, 2023 12:15pmStart: 08-24-2023 End: 86-93-3893Ydkpmhp Glargine U-300 Conc (Toujeo Solostar U-300 Insulin) 300 unit/mL (1.5 mL) insulin pen Discontinued 76 UNIT SUBCUT Daily August 24, 2023 2:13pm December 13, 2023 1:15pmStart: 98-97-9451Oiodzue Glargine U-300 Conc (Toujeo Solostar U-300 Insulin) 300 unit/mL (1.5 mL) insulin pen Qcnzxg70 UNIT SUBCUT Daily August 24, 2023 2:13pmStart: 07-28-2023 End: 61-69-1385Zdruqww Glargine U-300 Conc (Toujeo Solostar U-300 Insulin) 300 unit/mL (1.5 mL) insulin pen Discontinued 78 UNIT SUBCUT Daily July 28, 2023 11:38am August 24, 2023 1:15pmStart: 07-28-2023 End: 96-53-1429Iywouec Glargine U-300 Conc (Toujeo Solostar U-300 Insulin) 300 unit/mL (1.5 mL) insulin pen Discontinued 78 UNIT SUBCUT Daily July 28, 2023 12:38pm August 24, 2023 2:15pmStart: 09-06-4700Hxfpvmx Glargine U-300 Conc (Toujeo Solostar U-300 Insulin) 300 unit/mL (1.5 mL) insulin pen Gpcyte43 UNIT SUBCUT Daily July 28, 2023 12:38pmStart: 07-06-2023 End: 98-70-0454Rthonmu Glargine U-300 Conc (Toujeo Solostar U-300 Insulin) 300 unit/mL (1.5 mL) insulin pen Discontinued UNIT SUBCUT July 06, 2023 12:00am July 28, 2023 11:43am FreeTextSi u Subcutaneous daily; Note: Source Status: Continue; Provider: Jose De Jesus Lucas EStart: 07-06-2023 End: 78-06-5861Vklhoqe Glargine U-300 Conc (Toujeo Solostar U-300 Insulin) 300 unit/mL (1.5 mL) insulin pen Discontinued UNIT SUBCUT July 06, 2023 1:00am July 28, 2023 12:43pm FreeTextSi u Subcutaneous daily; Note: Source Status: Continue; Provider: Jose De Jesus Lucas EStart: 16-50-8023Gvptqbp Glargine U- 300 Conc (Toujeo Solostar U-300 Insulin) 300 unit/mL (1.5 mL) insulin pen Active UNIT SUBCUT July 06, 2023 1:00am FreeTextSi u Subcutaneous daily; Note: Source Status: Continue; Provider: Jose De Jesus Lucas E3 ml insulin lispro 200 unt/ml pen injector (20 sources)Insulin AnalogStart: 09-19-2023 End: 58-56-6325Xpatvle Lispro (Humalog Kwikpen Insulin) 200 unit/mL (3 mL) insulin pen Discontinued 0 SUBCUT Use as Directed February 23, 2024 1:21pm March 07, 2024 6:26pm 1:3 ICR ac TID plus 1:10 Corrective scale ac(hs if >200 half dose) SQ, 90-day (expect up to 190 units/day)Start: 07-28-2023 End: 67-21-2761omlvnq 1 dose by subcutaneous injection once before mealtime Insulin Lispro (Humalog Kwikpen Insulin) 100 unit/mL insulin pen Discontinued 1 sliding scale dose SUBCUT 3x/Day before meals & bedtime July 28, 2023 12:39pm September 19, 2023 10:58amStart: 07-08-2023 End: 27-93-2275Aqteosm Lispro (Humalog Kwikpen Insulin) 100 unit/mL insulin pen Discontinued SUBCUT July 08, 2023 10:01am July 28, 2023 12:43pmStart: 07-08-2023 End: 91-26-9610Eaglviy Lispro (Humalog Kwikpen Insulin) 200 unit/mL (3 mL) insulin pen Discontinued 1 sliding scale dose SUBCUT Use as Directed 90 90 July 08, 2023 1:00am July 19, 2023 11:11am icr 1:5, iss 1:10, EXPECT UP TO 100 U PER DAY, HAS WRITTEN INSTRUCTIONSStart: 07-06-2023 End: 97-87-2377Lkxawej Lispro (Humalog Kwikpen Insulin) 100 unit/mL insulin pen Discontinued SUBCUT July 06, 2023 1:00am July 08, 2023 10:08am FreeTextSig: ISS 1:10 and ICF 1:5 Subcutaneous 4 x daily; Note: Source Status: ContinueExpect up to 120 u per day; Provider: Sam Shah KwikPen 100 UNIT/ML ISS 1:10 and ICF 1:5 Subcutaneous 4 x daily for 90 days Expect up to 120 u per day ActiveInsulin Lispro (Humalog Kwikpen Insulin) 100 unit/mL insulin pen (20 sources)Start: 07-28-2023 End: 36-15-3816dvemje 1 dose by subcutaneous injection once before mealtime Insulin Lispro (Humalog Kwikpen Insulin) 100 unit/mL insulin pen Discontinued 1 sliding scale dose SUBCUT 3x/Day before meals & bedtime July 28, 2023 11:39am September 19, 2023 9:58amStart: 07-28-2023 End: 37-30-0106iyekmu 1 dose by subcutaneous injection once before mealtime Insulin Lispro (Humalog Kwikpen Insulin) 100 unit/mL insulin pen Discontinued 1 sliding scale dose SUBCUT 3x/Day before meals & bedtime July 28, 2023 12:39pm September 19, 2023 10:58amStart: 75-91-5715knxjti 1 dose by subcutaneous injection once before mealtimeInsulin Lispro (Humalog Kwikpen Insulin) 100 unit/mL insulin pen Active 1 sliding scale dose LYNTUZ2y/Day before meals & bedtime July 28, 2023 12:39pmStart: 07-08-2023 End: 57-95-5705Oycnmey Lispro (Humalog Kwikpen Insulin) 100 unit/mL insulin pen Discontinued SUBCUT July 08, 2023 9:01am July 28, 2023 11:43amStart: 07-08-2023 End: 43-08-8688Qxrukhl Lispro (Humalog Kwikpen Insulin) 100 unit/mL insulin pen Discontinued SUBCUT July 08, 2023 10:01am July 28, 2023 12:43pmStart: 40-12-1830Ryyaxqk Lispro (Humalog Kwikpen Insulin) 100 unit/mL insulin pen Active SUBCUT July 08, 2023 10:01amStart: 07-06-2023 End: 62-79-4880Azpcldp Lispro (Humalog Kwikpen Insulin) 100 unit/mL insulin pen Discontinued SUBCUT July 06, 2023 12:00am July 08, 2023 9:08am FreeTextSig: ISS 1:10 and ICF 1:5 Subcutaneous 4 x daily; Note: Source Status: ContinueExpect up to 120 u per day; Provider: Sam Brand CStart: 07-06-2023 End: 11-80-7468Apcwlxh Lispro (Humalog Kwikpen Insulin) 100 unit/mL insulin pen Discontinued SUBCUT July 06, 2023 1:00am July 08, 2023 10:08am FreeTextSig: ISS 1:10 and ICF 1:5 Subcutaneous 4 x daily; Note: Source Status: ContinueExpect up to 120 u per day; Provider: Sam Brand Closartan potassium 25 mg oral tablet (20 sources)Angiotensin 2 Receptor BlockerStart: 07-28-2023 End: 06-33-0724jtnk 1 tablet by mouth once dailyLosartan 25 mg tablet Discontinued 25 MG PO Daily October 11, 2023 8:39am March 09, 2024 10:43am Start: 07-06-2023 End: 24-06-3046ooyz 1 tablet by mouth once dailyLosartan 25 mg tablet Discontinued 1 TAB PO Daily July 06, 2023 1:00am July 19, 2023 11:12am Fr eeTextSi tablet Orally Once a day; Note: Source Status: Taking; Provider: Sam Brand ( )meloxicam 15 mg oral tablet (13 sources)Nonsteroidal Anti-inflammatory DrugStart: 09-29-2023 End: 62-59-3195stib 1 tablet by mouth once dailyMeloxicam 15 mg tablet Discontinued 15 MG PO Daily September 29, 2023 12:00am December 05, 2023 11:28am Semaglutide (16 sources)Start: 07-28-2023 End: 90-52-1857Hhykliqfxkm (Ozempic) 0.25 mg or 0.5 mg (2 mg/3 mL) pen injector Discontinued 0.25 MG SUBCUT every week 1.84 July 27, 2023 11:00pm August 19, 2023 9:52am for 4 weeksStart: 07-28-2023 End: 36-17-9674Gjuqxzhmxgr (Ozempic) 0.25 mg or 0.5 mg (2 mg/3 mL) pen injector Discontinued 0.25 MG SUBCUT every week 1.84 30 July 28, 2023 12:00am August 19, 2023 10:52am for 4 weekssimvastatin 20 mg oral tablet (20 sources)HMG-CoA Reductase InhibitorStart: 07-06-2023 End: 19-26-5467dorv 1 tablet by mouth once daily in the eveningSimvastatin 20 mg tablet Discontinued 1 TAB PO Daily July 06, 2023 1:00am July 19, 2023 11:07am FreeTextSi tablet in the evening Orally Once a day; Note: Source Status: Not-TakingundefinedPRN; Provider: Sam Brand ( ) tiZANidine 4 mg oral tablet (20 sources)Central alpha-2 Adrenergic AgonistStart: 07-06-2023 End: 11-59-8692vlad 1 tablet by mouth three times daily as neededTizanidine 4 mg tablet Discontinued 4 MG PO Three times daily July 06, 2023 1:00am July 19, 2023 11:08am FreeTextSi tablet as needed Orally Three times a day; Note: Source Status: Not-TakingundefinedPRN; Provider: Sam Brand ( )take 1 tablet by mouth every eight hourstiZANidine HCl 4 MG 1 tablet as needed Orally Three times a day Not-Taking/PRN Problems Active Problems Problem ClassificationProblemDateDocumented DateEpisodic/ChronicAcquired foot deformities (18 sources)Acquired deformity of toe of left foot; Translations: [Acquired deformities of toe(s), unspecified,left foot]EpisodicAcquired foot deformities (18 sources)Acquired deformity of toe; Translations: [Acquired deformities of toe(s), unspecified, right foot]EpisodicAdministrative/social admission (20 sources)Dietary counseling and surveillance; Translations: [Patient encounter status]EpisodicAsthma (19 sources)Intermittent asthma; Translations: [Mild intermittent asthma, uncomplicated]Onset: 19-13-6946RmvwohsMfubrevz atherosclerosis and other heart disease (20 sources)Atherosclerosis of coronary artery without angina pectoris; Translations: [Atherosclerotic heart disease of [place] coronary artery without angina pectoris]Onset: 51-09-5888JgzobwrFoozyaio mellitus with complications (20 sources)Hyperglycemia due to type 2 diabetes mellitus; Translations: [Type 2 diabetes mellitus with hyperglycemia]Onset: 77-61-3758QvkvbjhYohhbrvj mellitus without complication (20 sources)Type 2 diabetes mellitus without complications; Translations: [Type 2 diabetes mellitus]Onset: 020664-97-2848WyjprcfPheyqwyxj of lipid metabolism (20 sources)Dyslipidemia; Translations: [Hyperlipidemia, unspecified]Onset: 24-75-1977VsxpovoIzdxhaxcho disorders (20 sources)Gastroesophageal reflux disease; Translations: [Gastro-esophageal reflux disease without esophagitis]Onset: 703512-32-5447IiwjxotXtnzdignh hypertension (20 sources)Essential (primary) hypertension; Translations: [Hypertensive disorder]Onset: 96-27-4309DlkfpbxNtgqpjvm of upper limb (20 sources)Fracture at wrist and/or hand level; Translations: [Fracture of unspecified carpal bone, right wrist, initial encounter for closed fracture] 58-30-2440JlqvaexlRkvlecyw (3 sources)Gangrene of toe of left foot; Translations: [Gangrene, not elsewhere classified]Onset: 772711-32-9461DvtzukeuVbprsaj (18 sources)Candidiasis of mouth; Translations: [Candidal stomatitis]Episodic Nutritional deficiencies (20 sources)Vitamin D deficiency; Translations: [Vitamin D deficiency, unspecified]Onset: 05-92-3405GdhghghCenueqyydlehch (1 source)Unspecified osteoarthritis, unspecified site; Translations: [UNSPECIFIED OSTEOARTHRITIS UNS SITE]Onset: 86-49-9228BsmcedgLenwu aftercare (20 sources)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; Translations: [Long-term (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 of insulin]Onset: 95-00-8868FxabulpcCgxfd aftercare (20 sources)Long-term current use of insulin; Translations: [FCI (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 of insulin]10-24-1806DycyukblNfwwc connective tissue disease (20 sources)Pain in limb; Translations: [Pain in right toe(s)]EpisodicOther connective tissue disease (5 sources)Pain in left foot; Translations: [PAIN IN LEFT FOOT]Onset: 04-14-2022 EpisodicOther connective tissue disease (6 sources)Pain in right toe(s); Translations: [PAIN IN RIGHT TOES]Onset: 98-40-6625JzljwgieMgial connective tissue disease (1 source)Tendinitis of right gluteal tendon; Translations: [Gluteal tendinitis, right hip]14-76-8219YnwmzdqeNqseh injuries and conditions due to external causes (17 sources)Fracture of bone; Translations: [Other injury of unspecified body region, initial encounter]04-48-0337UldfjxmgQsbki non-traumatic joint disorders (5 sources)Shoulder pain; Translations: [Pain in left shoulder]EpisodicOther non-traumatic joint disorders (13 sources)Pain in left shoulder; Translations: [Left shoulder pain]Episodic Other non-traumatic joint disorders (13 sources)Ankle pain; Translations: [Pain in right ankle and joints of right foot]89-72-3969FkxyexkeTmalg non-traumatic joint disorders (3 sources)Pain in right ankle and joints of right foot; Translations: [Pain in joint, ankle and foot]74-00-7924SgebyrusJpyrz nutritional; endocrine; and metabolic disorders (18 sources)Obesity; Translations: [Obesity, unspecified]ChronicOther nutritional; endocrine; and metabolic disorders (3 sources)Obese class II; Translations: [Body mass index (BMI) 37.0-37.9, adult]ChronicOther nutritional; endocrine; and metabolic disorders (17 sources)Body mass index (BMI) 37.0-37.9, adult; Translations: [Body Mass Index 37.0-37.9, adult]ChronicOther nutritional; endocrine; and metabolic disorders (18 sources)Body mass index 30+ - obesity; Translations: [Body mass index (BMI) 37.0-37.9, adult]41-84-5112MwnyteoXckcz nutritional; endocrine; and metabolic disorders (1 source)Severe obesity; Translations: [Class 3 severe obesity with body mass index (BMI) of 40.0 to 44.9 inadult]69-27-6477JlxujsqDbhll screening for suspected conditions (not mental disorders or infectious disease) (20 sources)Encounter for screening mammogram for malignant neoplasm of breast; Translations: [Patient encounter status]Onset: 67-51-6128EqlwttkvMrabc upper respiratory infections (1 source)Acute maxillary sinusitis, unspecifiedEpisodicSpondylosis; intervertebral disc disorders; other back problems (18 sources)Pain in thoracic spine; Translations: [Pain in thoracic spine] EpisodicUnclassified (1 source)left 2nd, 3rd, 4th toes discolored, painfulOnset: 82-54-1514Fqxma infection (18 sources)Herpes labialis; Translations: [Herpesviral vesicular dermatitis] Episodic Past or Other Problems Problem ClassificationProblemDateDocumented DateEpisodic/ChronicAcute and chronic tonsillitis (1 source)Acute tonsillitis, unspecified; Translations: [ACUTE TONSILLITIS UNSPECIFIED]Onset: 88-97-7419ChqzqcpdM Codes: Natural/environment (1 source)Other and unspecified overexertion or strenuous movements or postures, initial encounter; Translations: [OTH AND UNS OVREXRT/STRN MVMT/POS INT]Onset: 72-30-1758GrzehxuoOcbihzzuyzytb symptoms and ill-defined conditions (1 source)Personal history of urinary (tract) infections; Translations: [PERS HX URINARY TRACT INFECTIONS]Onset: 17-68-9208JhosuptxCwidq aftercare (1 source)FCI (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; Translations: [SKILLED NURSING CURRENT USE OF ASPIRIN]Onset: 87-93-0757XrvmtvpzAymaf aftercare (1 source)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; Translations: [SKILLED NURSING USE ORAL HYPOGLYCEMIC DX]Onset: 58-73-9367XgumocqxFnigo aftercare (1 source)Other nursing home (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 therapy; Translations: [OTH SKILLED NURSING CURRENT DRUG THERAPY]Onset: 96-63-6365FzndvfnaRfafv non-traumatic joint disorders (4 sources)Pain in right hip; Translations: [PAIN IN RIGHT HIP]Onset: 04-06-2022 EpisodicOther upper respiratory disease (4 sources)Pain in throat; Translations: [PAIN IN THROAT]Onset: 11-05-2021 EpisodicPhlebitis; thrombophlebitis and thromboembolism (1 source)Personal history of other venous thrombosis and embolism; Translations: [PERS HX OTH VENOUS THROMBOSIS AND EMBO]Onset: 40-24-3788Cstoxfbb Residual codes; unclassified (1 source)Acquired absence of other specified parts of digestive tract; Translations: [ACQ ABSENCE OTH PART DIGESTV TRACT]Onset: 09-75-3366Kcveajgz Sprains and strains (1 source)Strain of muscle, fascia and tendon of right hip, initial encounter; Translations: [STRAIN MUSC FASC TENDON RT HIP INIT]Onset: 88-94-9248Pradacdy Results Test NameValueInterpretationReference FfocqKwwauuloUmK2h HPLC (Bld) [Mass fraction]on [id number] (Bld) [Mass fraction]Hemoglobin A1c/Hemoglobin.total in Blood by [facility] HospitalNo Panel Informationon 66-57-4447Fwtqcpq Zgyrptj12CvwphrjywAdams County Regional Medical CenterPathology study report documentOrdered By: Tejal Church on 46-03-8530Mjhmixdgi studyAdams County Regional Medical Center Other lon 07-05-2024 Specimen: [id number] Received: 07/06/24 Status: SAM Muir Num: [id number] Spec Type: Surgical Subm Dr: Jordyn Sanchez,DPM, MS Tissues: A DIGIT AMPUTATION (2ND LEFT TOE PARTIAL) B DIGIT AMPUTATION (3RD LEFT TOE) Procedures: HE/5, Gross/Micro L4/2, Decalcification/2 Age/ Patient Sex Location Account Attending Physician Zoila Ramos 54/F [facility] [id number] Jordyn Sanchez DPM, MS SPEC NUM: [id number] RECD: 07/06/24 STATUS: SAM MUIR NUM: [id number] JESSICA: 07/05/[address] [facility] DR: Jordyn Sanchez DPM, MS ENTERED: 07/06/24 [facility] DR: Robert,Lab SPEC TYPE: Surgical DEPT: AVERY [...] ulcer, left second and third toes Specimen: [id number] Received: 07/06/24 Status: SAM Muir Num: [id number] Spec Type: Surgical Subm Dr: Jordyn Sanchez,DPM, MS Tissues: A DIGIT AMPUTATION (2ND LEFT TOE PARTIAL) B DIGIT AMPUTATION (3RD LEFT TOE) Procedures: HE/5, Gross/Micro L4/2, Decalcification/2 Patient: Zoila Ramos [id number] (Continued) Specimen: [id number] Received: 07/06/24 (Continued) Signed (signature on file) Tejal Church MD 07/10/24 1438 Specimen: [id number] Received: 07/06/24 Status: SAM Muir Num: [id number] Spec Type: Surgical Subm Dr: Jordyn Sanchez,DPM, MS Tissues: A DIGIT AMPUTATION (2ND LEFT TOE PARTIAL) B DIGIT AMPUTATION (3RD LEFT TOE) Procedures: HE/5, Gross/Micro L4/2, Decalcification/2 Patient: RichardZoila crook Thea [id number] (Continued) Specimen: [id number] Received: 07/06/24 (Continued) Gross Description Part A [...] x 1 x 0.4 cm. Cassettes: A1 Rocket Motor Mechanic section of the wound with underlying central second phalangeal bone, decalcified A2 Tangential sections of proximal skin margin A3 Detached skin ( 3, , [id number] A)JG Part B is received in formalin [...] Tangential sections of proximal skin margin with logistics service representative sec (more content not included)...NormalThe [facility] Providence Physician GroupOrders Onlyon 91-02-7709Jkcjhg [id number] Zoila Ramos 1970 F Date Provider Department Center 06/25/2024 928-[facility] No family history on fileNormalUniversity of St. Joseph Medical CenterActivated partial thromboplastin time (aPTT) in platelet poor plasma by coagulation aon 13-16-1853sIKG Coag (PPP) [Time]Activated partial thromboplastin time (aPTT) in platelet poor plasma by coagulation a22.3-36.2FVan [facility] Hospital Basophils Auto (Bld) [#/Vol]on 99-92-1002Trqcmxspx (Bld) [#/Vol]Automated basophil count0.0-0.1FVan Wert County HospitalBasophils/100 WBC Auto (Bld)on 55-93-0675Dwjrupkey/100 WBC (Bld)Automated basophil %0.2-2.0[facility] CenterEosinophils/100 WBC Auto (Bld)on 06-19-2024 Eosinophils/100 WBC (Bld)Automated eosinophil %0.9-7.0[facility] CenterErythrocyte distribution width Auto (RBC) [Ratio]on 83-56-5888Zfmopviemih distribution width (RBC) [Ratio]Erythrocyte distribution width [Ratio] by Automated count11.0-15.0[facility] CenterEstimated glomerular filtration rate (GFR) non- Americanon 38-72-0707HBZ/1.73 sq M.predicted among non-blacks MDRD (S/P/Bld) [Vol rate/Area]Estimated glomerular filtration rate (GFR) non->=60 mL/min/1.73m 2FVan Wert County HospitalGlobulin Calc (S) [Mass/Vol]on 05-98-7889Mlhjqclo (S) [Mass/Vol]Serum globulin measurement by calculation (mass/volume)[facility] CenterHematocrit Auto (Bld) [Volume fraction]on 21-49-0817Kmhccbjgcb (Bld) [Volume fraction]Hematocrit [Volume Fraction] of Blood by Automated count 36.0-48.0[facility] CenterHemoglobin [Mass/volume] in Bloodon 65-18-3764Xlztjnfvjv (Bld) [Mass/Vol]Hemoglobin [Mass/volume] in Blood12.0-16.0 [facility] CenterINR in Platelet poor plasma by Coagulation assayon 61-38-1031CQW Coag (PPP) [Relative time]INR in Platelet poor plasma by Coagulation assayAdams County Regional Medical CenterComment on above:DESIRED INR:2.0-3.0 CONDITIONS NOT LISTED BELOW2.5-3.5 FOR PROSTHETIC HEART VALVE REPLACEMENT2.5-3.5 RECURRENT THROMBOSISLaboratory - Chemistry and Chemistry - challengeon 67-61-0269Morjwao [Mass/Vol]3.3 g/dLLow3.4-5.0[facility] CenterALP [Catalytic activity/Vol]110 U/D70-216CvzkwdqbhAdams County Regional Medical CenterALT [Catalytic activity/Vol]44 U/J64-39HktidecowAdams County Regional Medical CenterAST [Catalytic activity/Vol]23 U/E38-73MydcfqnvxAd[facility] Center Bilirubin [Mass/Vol]0.3 mg/dL0.2-1.0[facility] CenterCalcium [Mass/Vol]9.3 mg/dL8.5-10.1FVan Wert County HospitalChloride [Moles/Vol] 102 mmol/N38-195LxymisdqnAdams County Regional Medical CenterCO2 [Moles/Vol]27.9 mmol/L 21.0-32.0[facility] CenterCreatinine [Mass/Vol]0.88 mg/dL 0.55-1.02[facility] CenterGFR/1.73 sq M.predicted MDRD (S/P/Bld) [Vol rate/Area]mL/min/{1.73_m2}>=60 mL/min/1.73m 2FVan Wert County HospitalGlucose [Mass/Vol]175 mg/yPGlhk11-728ZincbhmvzAd[facility] Center Lipase [Catalytic activity/Vol]28.0 U/L16.0-77.0[facility] CenterPotassium [Moles/Vol]4.2 mmol/L3.5-5.1FVan Wert County Hospital Protein [Mass/Vol]7.6 g/dL6.4-8.2FMercy Health Fairfield Hospitalodium [Moles/Vol]137 mmol/R827-358EwvfmubnmAdams County Regional Medical CenterUrea nitrogen [Mass/Vol]12.0 mg/dL7.0-18.0[facility] CenterUrea nitrogen/Creatinine [Mass ratio]13.6 mg/mgAdams County Regional Medical Center Laboratory - Hematology and Cell countson 15-46-3314Ykmmlwrs granulocytes/100 WBC (Bld)0.1 %0.0-0.5FVan Wert County HospitalLeukocytes [#/volume] corrected for nucleated erythrocytes in Blood by Automated counon 92-98-4001VHY corrected for nucl RBC Auto (Bld) [#/Vol]Leukocytes [#/volume] corrected for nucleated erythrocytes in Blood by Automated coun4.0-11.0[facility] CenterLymphocytes Auto (Bld) [#/Vol]on 22-49-9850Ulibmuymzlf (Bld) [#/Vol]Lymphocytes [#/volume] in Blood by Automated count1.2-3.8[facility] CenterLymphocytes/100 WBC Auto (Bld)on 06-19-2024 Lymphocytes/100 WBC (Bld)Lymphocytes/100 leukocytes in Blood by Automated count 20.5-60.0[facility] CenterMCH Auto (RBC) [Entitic mass]on 40-56-6316HDN (RBC) [Entitic mass]MCH [Entitic mass] by Automated count26.7-34.0 [facility] CenterMCHC Auto (RBC) [Mass/Vol]on 31-67-3369FTNX (RBC) [Mass/Vol]MCHC [Mass/volume] by Automated count29.9-35.2FVan Wert County HospitalMCV Auto (RBC) [Entitic vol]on 62-62-1871AUJ (RBC) [Entitic vol] MCV [Entitic volume] by Automated count81.0-99.0[facility] CenterMonocytes Auto (Bld) [#/Vol]on 32-21-5313Rsyqtzqwc (Bld) [#/Vol]Automated blood monocyte count0.3-0.8[facility] CenterMonocytes/100 WBC Auto (Bld)on 00-12-8466Fgpthpjvc/100 WBC (Bld)Automated monocyte %1.7-12.0 [facility] CenterNeutrophils Auto (Bld) [#/Vol]on 06-19-2024 Neutrophils (Bld) [#/Vol]Neutrophils [#/volume] in Blood by Automated count 1.4-6.5FVan Wert County HospitalNeutrophils/100 WBC Auto (Bld)on 63-86-2996Nsppajjdwhu/100 WBC (Bld)Automated neutrophil %43.0-75.0[facility] CenterNo Panel Informationon 43-75-0108Pfyabzzggtl # (Auto)0.2 10 3/uL0.0-0.7FVan Wert County HospitalImmature Granulocyte # (Auto)0.01 10 3/uL0.00-0.03[facility] CenterOffice Visiton 06-19-2024 Follow-up [id number] Zoila Ramos 1970 F Date Provider Department Center 06/19/2024 Jay8-[facility] No family history on file Level of Service:45296 [place] OFFICE/OUTPATIENT ESTABLISHED MOD MDM 30 [facility] ShawPlatelet mean volume Auto (Bld) [Entitic vol] on 60-29-1074Fugwmtou mean volume (Bld) [Entitic vol]Platelet mean volume [Entitic volume] in Blood by Automated count9.5-13.5FVan Wert County HospitalPlatelets Auto (Bld) [#/Vol]on 07-29-8952Oabrrxxea (Bld) [#/Vol]Platelets [#/volume] in Blood by Automated exydg509-884BqenpjexyAdams County Regional Medical Center Prothrombin time (PT)on 76-73-4835TE Coag (PPP) [Time]Prothrombin time (PT) 9.0-11.6FVan Wert County HospitalRBC Auto (Bld) [#/Vol]on 59-64-9811JIZ (Bld) [#/Vol]Erythrocytes [#/volume] in Blood by Automated count4.20-5.40 [facility] Hospitalerum or plasma albumin/globulin mass ratioon 91-00-5774Dauexgf/Globulin [Mass ratio]Serum or plasma albumin/globulin mass ratioKeenan Private Hospitalerum or plasma anion gap determinationon 03-72-1685Pvqok gap [Moles/Vol]Serum or plasma anion gap determinationAdams County Regional Medical CenterCholesterol in LDL Calc [Mass/Vol]on 06-12-2024 Cholesterol in LDL [Mass/Vol]Cholesterol in LDL [Mass/volume] in Serum or Plasma by calculationAdams County Regional Medical CenterComment on above:<100 mg/dl LNJVEBO376-352 mg/dl NEAR OR ABOVE PYCQITX580-638 mg/dl BORDERLINE JUQY826-426 mg/dl HIGH>190 mg/dl VERY HIGHCholesterol in VLDL Calc [Mass/Vol]on 06-12-2024 Cholesterol in VLDL [Mass/Vol]Cholesterol in VLDL [Mass/volume] in Serum or Plasma by calculationAdams County Regional Medical CenterEstimated glomerular filtration rate (GFR) non- Americanon 84-50-5731GEM/1.73 sq M.predicted among non-blacks MDRD (S/P/Bld) [Vol rate/Area]Estimated glomerular filtration rate (GFR) non->=60 mL/min/1.73m 2FVan Wert County HospitalGlobulin Calc (S) [Mass/Vol]on 64-93-7131Zuwesyec (S) [Mass/Vol]Serum globulin measurement by calculation (mass/volume)[facility] CenterLaboratory - Chemistry and Chemistry - challengeon 99-39-2421Yeljtlh [Mass/Vol]3.1 g/dLLow3.4-5.0[facility] CenterALP [Catalytic activity/Vol]118 U/PCchc54-953ZqqpwbpygAdams County Regional Medical CenterALT [Catalytic activity/Vol]36 U/I68-01LsqavtnziAdams County Regional Medical CenterAST [Catalytic activity/Vol]18 U/K19-25SpzmgmbgiAdams County Regional Medical CenterBilirubin [Mass/Vol]0.3 mg/dL0.2-1.0[facility] CenterCalcium [Mass/Vol]9.1 mg/dL 8.5-10.1FVan Wert County HospitalChloride [Moles/Vol]102 mmol/L98-107 [facility] CenterCholesterol [Mass/Vol]124 mg/dL<=200[facility] CenterCholesterol in HDL [Mass/Vol]43 mg/dV85-99CouxbrjjiAdams County Regional Medical CenterComment on above:> or =60 mg/dl - LOW CARDIOVASCULAR RISK<40 mg/dl - HIGH CARDIOVASCULAR RISKCO2 [Moles/Vol]28.4 mmol/L21.0-32.0 [facility] CenterCobalamin (Vitamin B12) [Mass/Vol]998 pg/mL 232-1245[facility] CenterComment on above:Performed at: [facility] [address] [id number] Director: Gerald Jacobs PhD, Phone: [phone] [Mass/Vol]0.87 mg/dL0.55-1.02 [facility] CenterGFR/1.73 sq M.predicted MDRD (S/P/Bld) [Vol rate/Area]mL/min/{1.73_m2}>=60 mL/min/1.73m 2FVan Wert County Hospital Glucose [Mass/Vol]197 mg/oOCsoe53-947QimsrbgnuAd[facility] County Regional Medical CenterPotassium [Moles/Vol]4.5 mmol/L3.5-5.1FVan Wert County HospitalProtein [Mass/Vol] 7.3 g/dL6.4-8.2FMercy Health Fairfield Hospitalodium [Moles/Vol]142 mmol/L 136-145[facility] CenterTriglyceride [Mass/Vol]68 mg/dL<=150 [facility] CenterUrea nitrogen [Mass/Vol]11.0 mg/dL7.0-18.0 [facility] CenterUrea nitrogen/Creatinine [Mass ratio]12.6 mg/mg [facility] CenterNo Panel Informationon 471941-Yilczln Vitamin D Total44.6 ng/mLAdams County Regional Medical CenterComment on above:<20 ng/mL Vit D ikdswptmy65-<30 ng/mL Vit D isyxhlclqhxz84-056 ng/mL Vit D sufficient>100 ng/mL Potential ToxicitySerum or plasma albumin/globulin mass ratioon 38-36-8651Cnzfaah/Globulin [Mass ratio]Serum or plasma albumin/globulin mass ratioKeenan Private Hospitalerum or plasma anion gap determinationon 19-30-7496Ixwkr gap [Moles/Vol]Serum or plasma anion gap determinationKeenan Private Hospitalerum or plasma total cholesterol/high density lipoprotein (HDL) cholesterol mass jaun 06-12-2024 Cholesterol.total/Cholesterol in HDL [Mass ratio]Serum or plasma total cholesterol/high density lipoprotein (HDL) cholesterol mass ratAdams County Regional Medical CenterComment on above:3.3 - 4.4 LOW RISK4.4 - 7.1 AVERAGE RISK7.1 - 11.0 MODERATE RISK>11.0 HIGH RISKBasophils Auto (Bld) [#/Vol]on 27-14-6258Ygwgtjcso (Bld) [#/Vol]Automated basophil count0.0-0.1FVan Wert County HospitalBasophils/100 WBC Auto (Bld)on 22-16-5329Zsjeeufvy/100 WBC (Bld)Automated basophil %0.2-2.0[facility] Eosinophils/100 WBC Auto (Bld)on 13-42-5007Wupguyydabl/100 WBC (Bld)Automated eosinophil %0.9-7.0[facility] CenterErythrocyte distribution width Auto (RBC) [Ratio]on 52-17-1094Nanforpoosi distribution width (RBC) [Ratio]Erythrocyte distribution width [Ratio] by Automated count11.0-15.0 [facility] CenterEstimated glomerular filtration rate (GFR) non- Americanon 87-23-1108KYX/1.73 sq M.predicted among non-blacks MDRD (S/P/Bld) [Vol rate/Area]Estimated glomerular filtration rate (GFR) non->=60 mL/min/1.73m 2FVan Wert County HospitalGlobulin Calc (S) [Mass/Vol]on 88-84-2156Zijkonro (S) [Mass/Vol]Serum globulin measurement by calculation (mass/volume)[facility] CenterHematocrit Auto (Bld) [Volume fraction]on 07-18-1720Idgjxtkjyo (Bld) [Volume fraction]Hematocrit [Volume Fraction] of Blood by Automated count36.0-48.0[facility] CenterHemoglobin [Mass/volume] in Bloodon 28-26-2198Wghvnqthgk (Bld) [Mass/Vol] Hemoglobin [Mass/volume] in Blood12.0-16.0[facility] Laboratory - Chemistry and Chemistry - challengeon 56-83-7917Ugvdexj [Moles/Vol] 1.9 mmol/L0.4-2.0[facility] CenterAlbumin [Mass/Vol]3.3 g/dLLow 3.4-5.0[facility] CenterALP [Catalytic activity/Vol]115 U/L 46-116[facility] CenterALT [Catalytic activity/Vol]39 U/L14-59 [facility] CenterAST [Catalytic activity/Vol]16 U/L15-37 [facility] CenterBilirubin [Mass/Vol]0.2 mg/dL0.2-1.0[facility] CenterCalcium [Mass/Vol]9.4 mg/dL8.5-10.1FVan Wert County HospitalChloride [Moles/Vol]104 mmol/K85-435RhnfddbrhAdams County Regional Medical CenterCO2 [Moles/Vol]27.1 mmol/L21.0-32.0[facility] Creatinine [Mass/Vol]0.86 mg/dL0.55-1.02[facility] GFR/1.73 sq M.predicted MDRD (S/P/Bld) [Vol rate/Area]mL/min/{1.73_m2}>=60 mL/min/1.[address]m [address] [place], [place] [address]Glucose [Mass/Vol]157 mg/dLHigh 74-106[facility] CenterPotassium [Moles/Vol]4.4 mmol/L3.5-5.1 [facility] CenterProtein [Mass/Vol]7.3 g/dL6.4-8.2FMercy Health Fairfield Hospitalodium [Moles/Vol]142 mmol/J358-856WdmmkszbwAdams County Regional Medical CenterUrea nitrogen [Mass/Vol]23.0 mg/dLHigh7.0-18.0[facility] CenterUrea nitrogen/Creatinine [Mass ratio]26.7 mg/mgAdams County Regional Medical CenterLaboratory - Hematology and Cell countson 64-94-4565GWA (Bld) [Velocity]41 mm/hHigh<=30[facility] CenterImmature granulocytes/100 WBC (Bld)0.2 %0.0-0.5FVan Wert County Hospital Leukocytes [#/volume] corrected for nucleated erythrocytes in Blood by Automated counon 35-06-4848MXC corrected for nucl RBC Auto (Bld) [#/Vol]Leukocytes [#/volume] corrected for nucleated erythrocytes in Blood by Automated coun 4.0-11.0[facility] CenterLymphocytes Auto (Bld) [#/Vol]on 93-42-5762Tczcvscahon (Bld) [#/Vol]Lymphocytes [#/volume] in Blood by Automated count1.2-3.8[facility] CenterLymphocytes/100 WBC Auto (Bld)on 97-19-7368Ovrkggccrta/100 WBC (Bld)Lymphocytes/100 leukocytes in Blood by Automated count20.5-60.0[facility] CenterMCH Auto (RBC) [Entitic mass]on 82-47-5927JMC (RBC) [Entitic mass]MCH [Entitic mass] by Automated count 26.7-34.0[facility] CenterMCHC Auto (RBC) [Mass/Vol]on 72-33-5158TDDY (RBC) [Mass/Vol]MCHC [Mass/volume] by Automated count29.9-35.2 [facility] CenterMCV Auto (RBC) [Entitic vol]on 85-41-6375VCI (RBC) [Entitic vol]MCV [Entitic volume] by Automated count81.0-99.0[facility] CenterMonocytes Auto (Bld) [#/Vol]on 49-43-1870Kycpprmej (Bld) [#/Vol]Automated blood monocyte count0.3-0.8[facility] Monocytes/100 WBC Auto (Bld)on 85-03-3802Mewjecgxg/100 WBC (Bld)Automated monocyte %1.7-12.0[facility] CenterNeutrophils Auto (Bld) [#/Vol]on 92-08-2541Izoivokbezp (Bld) [#/Vol]Neutrophils [#/volume] in Blood by Automated count1.4-6.5FVan Wert County HospitalNeutrophils/100 WBC Auto (Bld)on 46-60-8720Stlufvndojx/100 WBC (Bld)Automated neutrophil %43.0-75.0 [facility] CenterNo Panel Informationon 39-71-5544D-Reactive Protein, Quantitative1.46 mg/dLHigh<=0.50[facility] Eosinophils # (Auto)0.3 10 3/uL0.0-0.7FVan Wert County HospitalImmature Granulocyte # (Auto)0.02 10 3/uL0.00-0.03[facility] Platelet mean volume Auto (Bld) [Entitic vol]on 13-95-1242Amwvilua mean volume (Bld) [Entitic vol]Platelet mean volume [Entitic volume] in Blood by Automated count9.5-13.5FVan Wert County HospitalPlatelets Auto (Bld) [#/Vol]on 42-75-0764Sxaoabtig (Bld) [#/Vol]Platelets [#/volume] in Blood by Automated huzpb540-430JyjxnofvfAdams County Regional Medical CenterRBC Auto (Bld) [#/Vol]on 06-07-2024 RBC (Bld) [#/Vol]Erythrocytes [#/volume] in Blood by Automated count4.20-5.40 [facility] Hospitalerum or plasma albumin/globulin mass ratioon 85-55-9261Aluoyjn/Globulin [Mass ratio]Serum or plasma albumin/globulin mass ratioFirelands Regional Medical CenterSerum or plasma anion gap determinationon 07-62-9109Ymjjx gap [Moles/Vol]Serum or plasma anion gap determinationAdams County Regional Medical CenterBasophils Auto (Bld) [#/Vol]on 07-71-1612Ywbipcwax (Bld) [#/Vol]Automated basophil count0.0-0.1FVan Wert County Hospital Basophils/100 WBC Auto (Bld)on 33-71-8622Slnqxioki/100 WBC (Bld)Automated basophil %0.2-2.0[facility] CenterEosinophils/100 WBC Auto (Bld) on 71-76-1188Ohpepketapg/100 WBC (Bld)Automated eosinophil %0.9-7.0[facility] CenterErythrocyte distribution width Auto (RBC) [Ratio]on 04-70-3114Lgbuxbkwccx distribution width (RBC) [Ratio]Erythrocyte distribution width [Ratio] by Automated count11.0-15.0[facility] Estimated glomerular filtration rate (GFR) non- Americanon 06-01-2024 GFR/1.73 sq M.predicted among non-blacks MDRD (S/P/Bld) [Vol rate/Area]Estimated glomerular filtration rate (GFR) non- AmericanLow>=60 mL/min/1.73m 2 [facility] CenterHematocrit Auto (Bld) [Volume fraction]on 00-06-6466Adjnimrrss (Bld) [Volume fraction]Hematocrit [Volume Fraction] of Blood by Automated count36.0-48.0[facility] CenterHemoglobin [Mass/volume] in Bloodon 52-54-3450Dwwjgsrnyo (Bld) [Mass/Vol]Hemoglobin [Mass/volume] in Blood12.0-16.0[facility] CenterLaboratory - Chemistry and Chemistry - challengeon 07-11-7803Ewznovg [Mass/Vol]9.0 mg/dL 8.5-10.1FVan Wert County HospitalChloride [Moles/Vol]105 mmol/L98-107 [facility] CenterCO2 [Moles/Vol]29.8 mmol/L21.0-32.0[facility] CenterCreatinine [Mass/Vol]1.01 mg/dL0.55-1.02[facility] CenterGFR/1.73 sq M.predicted MDRD (S/P/Bld) [Vol rate/Area] mL/min/{1.73_m2}>=60 mL/min/1.73m 2FVan Wert County HospitalGlucose [Mass/Vol]171 mg/kBGtkf70-433JmlyrfeyrAd[facility] Medical CenterPotassium [Moles/Vol]4.6 mmol/L3.5-5.1FMercy Health Fairfield Hospitalodium [Moles/Vol] 140 mmol/S063-269ZsdufjzwbAdams County Regional Medical CenterUrea nitrogen [Mass/Vol]15.0 mg/dL7.0-18.0[facility] CenterUrea nitrogen/Creatinine [Mass ratio]14.9 mg/mgAdams County Regional Medical CenterLaboratory - Hematology and Cell countson 87-09-4197Xwbhfdyd granulocytes/100 WBC (Bld)0.3 %0.0-0.5FVan Wert County HospitalLeukocytes [#/volume] corrected for nucleated erythrocytes in Blood by Automated counon 78-03-0423MCH corrected for nucl RBC Auto (Bld) [#/Vol]Leukocytes [#/volume] corrected for nucleated erythrocytes in Blood by Automated coun4.0-11.0[facility] CenterLymphocytes Auto (Bld) [#/Vol]on 72-23-8995Dmytlikobsc (Bld) [#/Vol]Lymphocytes [#/volume] in Blood by Automated count1.2-3.8[facility] CenterLymphocytes/100 WBC Auto (Bld)on 24-59-0702Jobbqlacyhi/100 WBC (Bld)Lymphocytes/100 leukocytes in Blood by Automated count20.5-60.0[facility] CenterMCH Auto (RBC) [Entitic mass]on 48-15-0779NXM (RBC) [Entitic mass]MCH [Entitic mass] by Automated count26.7-34.0[facility] CenterMCHC Auto (RBC) [Mass/Vol]on 06-52-4007NHIC (RBC) [Mass/Vol]MCHC [Mass/volume] by Automated count29.9-35.2FVan Wert County HospitalMCV Auto (RBC) [Entitic vol]on 74-61-7563IQH (RBC) [Entitic vol]MCV [Entitic volume] by Automated count 81.0-99.0[facility] CenterMonocytes Auto (Bld) [#/Vol]on 76-91-3662Csbyjmcrq (Bld) [#/Vol]Automated blood monocyte count0.3-0.8[facility] CenterMonocytes/100 WBC Auto (Bld)on 84-99-8687Wzqrzhera/100 WBC (Bld)Automated monocyte %1.7-12.0[facility] Neutrophils Auto (Bld) [#/Vol]on 67-36-9066Emrlsnlvprb (Bld) [#/Vol]Neutrophils [#/volume] in Blood by Automated count1.4-6.5FVan Wert County Hospital Neutrophils/100 WBC Auto (Bld)on 45-71-6741Ttikewbfmqv/100 WBC (Bld)Automated neutrophil %43.0-75.0[facility] CenterNo Panel Informationon 81-60-2338Ixsjzwtawxe # (Auto)0.2 10 3/uL0.0-0.7FVan Wert County HospitalImmature Granulocyte # (Auto)0.02 10 3/uL0.00-0.03[facility] CenterPlatelet mean volume Auto (Bld) [Entitic vol]on 63-12-8016Hqsvlqqr mean volume (Bld) [Entitic vol]Platelet mean volume [Entitic volume] in Blood by Automated count9.5-13.5FVan Wert County HospitalPlatelets Auto (Bld) [#/Vol]on 84-92-2932Hslhjrzss (Bld) [#/Vol]Platelets [#/volume] in Blood by Automated rbepv530-707DlknueptkAdams County Regional Medical CenterRBC Auto (Bld) [#/Vol]on 96-46-3930RSG (Bld) [#/Vol]Erythrocytes [#/volume] in Blood by Automated count 4.20-5.40[facility] Private Hospitalerum or plasma anion gap determinationon 61-15-5562Mcydb gap [Moles/Vol]Serum or plasma anion gap determinationFirelands Regional Medical CenterBasophils Auto (Bld) [#/Vol]on 43-60-1063Iplavitsm (Bld) [#/Vol]Automated basophil count0.0-0.1FVan Wert County HospitalBasophils/100 WBC Auto (Bld)on 30-78-2011Unapwjqsq/100 WBC (Bld)Automated basophil %0.2-2.0[facility] Eosinophils/100 WBC Auto (Bld)on 58-26-5544Nwpfkgkezzt/100 WBC (Bld)Automated eosinophil %0.9-7.0[facility] CenterErythrocyte distribution width Auto (RBC) [Ratio]on 29-31-4656Urtjjxqwhog distribution width (RBC) [Ratio]Erythrocyte distribution width [Ratio] by Automated count11.0-15.0 [facility] CenterEstimated glomerular filtration rate (GFR) non- Americanon 57-73-4342QOF/1.73 sq M.predicted among non-blacks MDRD (S/P/Bld) [Vol rate/Area]Estimated glomerular filtration rate (GFR) non- AmericanLow>=60 mL/min/1.73m 2FVan Wert County HospitalHematocrit Auto (Bld) [Volume fraction]on 34-74-1058Cnxmbdvedc (Bld) [Volume fraction]Hematocrit [Volume Fraction] of Blood by Automated count36.0-48.0[facility] CenterHemoglobin [Mass/volume] in Bloodon 27-33-6440Kpwbpzawoh (Bld) [Mass/Vol] Hemoglobin [Mass/volume] in Blood12.0-16.0[facility] Laboratory - Chemistry and Chemistry - challengeon 65-30-1740Widvveb [Mass/Vol] 9.1 mg/dL8.5-10.1FVan Wert County HospitalChloride [Moles/Vol]104 mmol/L 98-107[facility] CenterCO2 [Moles/Vol]30.6 mmol/L21.0-32.0 [facility] CenterCreatinine [Mass/Vol]1.01 mg/dL0.55-1.02 [facility] CenterGFR/1.73 sq M.predicted MDRD (S/P/Bld) [Vol rate/Area]mL/min/{1.73_m2}>=60 mL/min/1.73m 2FVan Wert County Hospital Glucose [Mass/Vol]206 mg/iAWjrq35-726JthuwgbirAdams County Regional Medical CenterPotassium [Moles/Vol]5.1 mmol/L3.5-5.1FMercy Health Fairfield Hospitalodium [Moles/Vol] 141 mmol/G546-042IyqlhrjpoAdams County Regional Medical CenterUrea nitrogen [Mass/Vol]12.0 mg/dL7.0-18.0[facility] CenterUrea nitrogen/Creatinine [Mass ratio]11.9 mg/mgAdams County Regional Medical CenterLaboratory - Hematology and Cell countson 47-68-0473PSN (Bld) [Velocity]28 mm/h<=30[facility] CenterImmature granulocytes/100 WBC (Bld)0.3 %0.0-0.5FVan Wert County HospitalLeukocytes [#/volume] corrected for nucleated erythrocytes in Blood by Automated counon 52-28-6488HHO corrected for nucl RBC Auto (Bld) [#/Vol]Leukocytes [#/volume] corrected for nucleated erythrocytes in Blood by Automated coun4.0-11.0[facility] CenterLymphocytes Auto (Bld) [#/Vol]on 86-53-1415Zqtzhudwrzw (Bld) [#/Vol]Lymphocytes [#/volume] in Blood by Automated count1.2-3.8[facility] CenterLymphocytes/100 WBC Auto (Bld)on 63-42-0725Wmakesybkkl/100 WBC (Bld)Lymphocytes/100 leukocytes in Blood by Automated count20.5-60.0[facility] CenterMCH Auto (RBC) [Entitic mass]on 09-01-7448DLL (RBC) [Entitic mass]MCH [Entitic mass] by Automated count26.7-34.0[facility] CenterHC Auto (RBC) [Mass/Vol]on 25-67-3247UTTJ (RBC) [Mass/Vol]MCHC [Mass/volume] by Automated count29.9-35.2FVan Wert County HospitalMCV Auto (RBC) [Entitic vol]on 27-48-8141FDX (RBC) [Entitic vol]MCV [Entitic volume] by Automated count 81.0-99.0[facility] CenterMonocytes Auto (Bld) [#/Vol]on 33-11-6091Elejmojvz (Bld) [#/Vol]Automated blood monocyte count0.3-0.8[facility] CenterMonocytes/100 WBC Auto (Bld)on 91-50-3435Wawffmtwj/100 WBC (Bld)Automated monocyte %1.7-12.0[facility] Neutrophils Auto (Bld) [#/Vol]on 17-58-0888Naujpbselfu (Bld) [#/Vol]Neutrophils [#/volume] in Blood by Automated count1.4-6.5FVan Wert County Hospital Neutrophils/100 WBC Auto (Bld)on 59-21-0945Xmrdejefptq/100 WBC (Bld)Automated neutrophil %43.0-75.0[facility] CenterNo Panel Informationon 77-20-5087E-Reactive Protein, Quantitative1.26 mg/dLHigh<=0.50[facility] CenterEosinophils # (Auto)0.3 10 3/uL0.0-0.7FVan Wert County HospitalImmature Granulocyte # (Auto)0.02 10 3/uL0.00-0.03[facility] CenterPlatelet mean volume Auto (Bld) [Entitic vol]on 24-60-0411Jxuscton mean volume (Bld) [Entitic vol]Platelet mean volume [Entitic volume] in Blood by Automated count9.5-13.5FVan Wert County HospitalPlatelets Auto (Bld) [#/Vol]on 41-15-6437Mtrbkxluc (Bld) [#/Vol]Platelets [#/volume] in Blood by Automated apgpc169-306LfalvtqacAdams County Regional Medical CenterRBC Auto (Bld) [#/Vol]on 72-62-6463OYZ (Bld) [#/Vol]Erythrocytes [#/volume] in Blood by Automated count 4.20-5.40[facility] Private Hospitalerum or plasma anion gap determinationon 87-57-5302Bvlvs gap [Moles/Vol]Serum or plasma anion gap determinationAdams County Regional Medical CenterCreatinine [Mass/volume] in Urine Ordered By: Cathie Vargas on 82-51-7859Rapuzqjwta (U) [Mass/Vol]28.00 mg/dL [facility] CenterComment on above:No reference range established MicroAlb Creat Ratio,Uon 25-17-7220Hahccyuzhd, Urine (Random)28.00 mg/dLNormal The [facility] Physician GroupComment on above:Result Comment: No reference range establishedPerformed By: #### URMACRERAT #### [facility] [address] [place] [address] USAMicroalbumin/Creatinine RatioNot performedNormal0.0-30.0 [facility] CenterComment on above:Result Comment: PERFORMED BY: [place] [id number] PATHOLOGIST TUBULAR RIVETER RUBINA RICCI M.D.Performed By: #### URMACRERAT #### [facility] [address] [place], [place] [id number] USAMicroalbumin [Mass/volume] in UrineOrdered By: Cathie Vargas on 05-81-5286Twvodtm DL <= 20 mg/L (U) [Mass/Vol]mg/dLNormal0.0-1.8 [facility] CenterComment on above:Performed By: #### URMACRERAT #### [facility] [address] [place], [place] [address] USAUrine microalbumin/creatinine mass ratioOrdered By: Cathie Vargas on 99-60-2785Dmilqib/Creatinine DL <= 20 mg/L (U) [Mass ratio]TNP [facility] CenterComment on above:Test not jzgjgijjoOhW5x HPLC (Bld) [Mass fraction]on 88-85-6694TbE4w (Bld) [Mass fraction]9.9 %[facility] CenterNo Panel Informationon 05-60-2734Ujrfynd Plloqxp432 [facility] CenterNo Panel Informationon 08-08-7490Ohfjfhc Tvlkryj278DhtzkmimtAdams County Regional Medical CenterHbA1c HPLC (Bld) [Mass fraction]on 69-76-6547JmZ7s (Bld) [Mass fraction]10.3 %[facility] CenterNo Panel Informationon 32-10-3540Adqukax Mmgmgou249CxmwbpkmsAdams County Regional Medical CenterBasophils Auto (Bld) [#/Vol]on 91-63-7919Hvwhbsuwl (Bld) [#/Vol]0.0 10 3/uL0.0-0.1FVan Wert County HospitalBasophils/100 WBC Auto (Bld)on 40-22-1030Uyeyllcqm/100 WBC (Bld)0.5 %0.2-2.0[facility] Eosinophils/100 WBC Auto (Bld)on 53-76-0900Epvakzqnixc/100 WBC (Bld)1.5 %0.9-7.0 [facility] CenterErythrocyte distribution width Auto (RBC) [Ratio]on 23-78-6707Ijkoylasxdq distribution width (RBC) [Ratio]12.7 %11.0-15.0 [facility] CenterEstimated glomerular filtration rate (GFR) non- Americanon 64-09-7206JCI/1.73 sq M.predicted among non-blacks MDRD (S/P/Bld) [Vol rate/Area]mL/min/{1.73_m2}>=60[facility] Hematocrit Auto (Bld) [Volume fraction]on 46-93-1175Bmllibclvo (Bld) [Volume fraction]42.8 %36.0-48.0[facility] CenterHemoglobin [Mass/volume] in Bloodon 42-82-4716Mkwcbaufvk (Bld) [Mass/Vol]14.3 g/dL12.0-16.0 [facility] CenterLaboratory - Chemistry and Chemistry - challengeon 48-77-7675Pebsgid [Mass/Vol]9.1 mg/dL8.5-10.1FVan Wert County HospitalChloride [Moles/Vol]100 mmol/S15-261HsdywvgpjAdams County Regional Medical CenterCO2 [Moles/Vol]26.1 mmol/L21.0-32.0[facility] Creatinine [Mass/Vol]0.78 mg/dL0.55-1.02[facility] GFR/1.73 sq M.predicted MDRD (S/P/Bld) [Vol rate/Area]mL/min/{1.73_m2}>=60 [facility] CenterGlucose [Mass/Vol]215 mg/sD33-847RmhbklmyoAd[facility] County Regional Medical CenterPotassium [Moles/Vol]4.0 mmol/L3.5-5.1FMercy Health Fairfield Hospitalodium [Moles/Vol]137 mmol/H790-662GcpfkxkdeAdams County Regional Medical CenterUrea nitrogen [Mass/Vol]12.0 mg/dL7.0-18.0[facility] CenterUrea nitrogen/Creatinine [Mass ratio]15.4 mg/mgAdams County Regional Medical CenterLaboratory - Hematology and Cell countson 54-37-4473Boaiowjf granulocytes/100 WBC (Bld)0.1 %0.0-0.5FVan Wert County Hospital Leukocytes [#/volume] corrected for nucleated erythrocytes in Blood by Automated counon 12-97-2052HXQ corrected for nucl RBC Auto (Bld) [#/Vol]7.8 10 3/uL 4.0-11.0[facility] CenterLymphocytes Auto (Bld) [#/Vol]on 20-92-8611Ouwzczbgdva (Bld) [#/Vol]2.7 10 3/uL1.2-3.8[facility] CenterLymphocytes/100 WBC Auto (Bld)on 03-23-0661Amiotzjjmpu/100 WBC (Bld)34.1 % 20.5-60.0[facility] CenterMCH Auto (RBC) [Entitic mass]on 58-83-9309OYY (RBC) [Entitic mass]29.2 pg26.7-34.0[facility] CenterMCHC Auto (RBC) [Mass/Vol]on 34-69-0085ZCPG (RBC) [Mass/Vol]33.4 g/dL 29.9-35.2FVan Wert County HospitalMCV Auto (RBC) [Entitic vol]on 82-17-0375OIR (RBC) [Entitic vol]87.5 fL81.0-99.0[facility] CenterMonocytes Auto (Bld) [#/Vol]on 33-00-2642Uzvrcgdve (Bld) [#/Vol]0.5 10 3/uL0.3-0.8[facility] CenterMonocytes/100 WBC Auto (Bld)on 28-49-9454Cywmovncd/100 WBC (Bld)6.4 %1.7-12.0[facility] Neutrophils Auto (Bld) [#/Vol]on 98-88-6608Iqrddehkcys (Bld) [#/Vol]4.5 10 3/uL 1.4-6.5FVan Wert County HospitalNeutrophils/100 WBC Auto (Bld)on 23-40-8118Vuqlcznkgzc/100 WBC (Bld)57.4 %43.0-75.0[facility] CenterNo Panel Informationon 21-84-7468Colzjsikczo # (Auto)0.1 10 3/uL0.0-0.7 [facility] CenterImmature Granulocyte # (Auto)0.01 10 3/uL 0.00-0.03[facility] CenterPlatelet mean volume Auto (Bld) [Entitic vol]on 04-44-0248Bgqiluds mean volume (Bld) [Entitic vol]10.9 fL 9.5-13.5FVan Wert County HospitalPlatelets Auto (Bld) [#/Vol]on 85-01-1016Gthcszmyq (Bld) [#/Vol]259 10 3/pB783-511ZgjmriegcAdams County Regional Medical CenterRBC Auto (Bld) [#/Vol]on 08-82-6499FEV (Bld) [#/Vol]4.89 10 6/uL4.20-5.40 [facility] Hospitalerum or plasma anion gap determinationon 44-25-5282Ewztz gap [Moles/Vol]14.9 mmol/LFVan Wert County Hospital Glucose - FINGER STICKon 38-78-2374Nwfybsq [Mass/Vol]360 mg/dLNort Frontier pte Other cbc AUTO DIFFon 45-74-3430MAOZ #0.0 103/ulNormal 0.0-0.1The [facility] CenterComment on above:Performed By: #### CBC #### [facility] [address] [place] [address] Dr. Sarah ChurchBasophils/100 WBC (Bld)0.5 %Normal0.2-2.0The [facility] Comment on above:Performed By: #### CBC #### [facility] [address] [place] [address] Dr. Sarah Marie #0.2 103/ulNormal0.0-0.7The [facility] CenterComment on above: Performed By: #### CBC #### [facility] [address] [place] [address] Dr. Sarah Camejoosinophils/100 WBC (Bld)2.2 %Normal0.9-7.0The [facility] Comment on above:Performed By: #### CBC #### [facility] [address] [place] [address] Dr. Sarah Camejorythrocyte distribution width (RBC) [Ratio]12.5 %Zdfzeg96.0-15.0 The [facility] CenterComment on above:Performed By: #### CBC #### [facility] [address] [place] [address] Dr. Sarah ChurchHematocrit (Bld) [Volume fraction]44.1 %Gssjgl37.0-48.0The [facility] CenterComment on above:Performed By: #### CBC #### [facility] [address] [place] [address] Dr. Sarah ChurchHemoglobin (Bld) [Mass/Vol]15.1 g/nERtgjro73.0-16.0The [facility] CenterComment on above:Performed By: #### CBC #### [facility] [address] [place] [address] Dr. Sarah uHynh #0.02 10e3/ulNormal0.00-0.03The [facility] CenterComment on above:Performed By: #### CBC #### [facility] [address] [place] [address] Dr. Sarah Huynh %0.2 %Normal0.0-0.5The [facility] CenterComment on above: Performed By: #### CBC #### [facility] [address] [place] [address] Dr. Sarah Vera #2.9 103/ulNormal1.2-3.8The [facility] CenterComment on above:Performed By: #### CBC #### [facility] [address] [place] [address] Dr. Sarah Hadleyhocytes/100 WBC (Bld)33.4 %Tdirck67.5-60.0The [facility] CenterComment on above:Performed By: #### CBC #### [facility] [address] [place] [address] Dr. Sarah Schulz DIFF REQNONormalThe [facility] CenterComment on above: Performed By: #### CBC #### [facility] [address] [place] [address] Dr. Sarah Luke (RBC) [Entitic mass]29.1 eqThzpyr35.7-34.0The [facility] CenterComment on above:Performed By: #### CBC #### [facility] [address] [place] [address] Dr. Sarah Rao (RBC) [Mass/Vol]34.2 g/kGBniyws15.9-35.2The [facility] CenterComment on above:Performed By: #### CBC #### [facility] [address] [place] [address] Dr. Sarha Norman (RBC) [Entitic vol]85.0 rUBnwlrm79.0-99.0The [facility] CenterComment on above:Performed By: #### CBC #### [facility] [address] [place] [address] Dr. Sarah Reza #0.6 103/ulNormal0.3-0.8The [facility] CenterComment on above:Performed By: #### CBC #### [facility] [address] [place] [address] Dr. Sarah Caalocytes/100 WBC (Bld)6.8 %Normal1.7-12.0The [facility] Comment on above:Performed By: #### CBC #### [facility] [address] [place] [address] Dr. Sarah Beard #4.9 103/ulNormal1.4-6.5The [facility] CenterComment on above:Performed By: #### CBC #### [facility] [address] [place] [address] Dr. Sarah Rizviutrophils/100 WBC (Bld)56.9 %Yowbtx85.0-75.0The [facility] CenterComment on above:Performed By: #### CBC #### [facility] [address] [place] [address] Dr. Sarah ChurchPlatelet mean volume (Bld) [Entitic vol]10.8 fLNormal9.5-13.5The [facility] CenterComment on above:Performed By: #### CBC #### [facility] [address] [place] [address] Dr. Sarah ChurchPLT276 103/vbKuufxj520-437Hxo [facility] CenterComment on above: Performed By: #### CBC #### [facility] [address] [place] [address] Dr. Sarah ChurchRBC5.19 106/ulNormal4.20-5.40The [facility] CenterComment on above:Performed By: #### CBC #### [facility] [address] [place] [address] Dr. Sarah ChurchWBC8.6 103/ulNormal4.0-11.0The [facility] CenterComment on above: Performed By: #### CBC #### [facility] [address] [place] [address] Dr. Sarah ChurchLIPID PROFILEon 38-00-3812ZYYF-HDL RATIO NORMSEE BELOWUC HealthComment on above:Result Comment: 3.3 - 4.4 LOW RISK 4.4 - 7.1 AVERAGE RISK 7.1 - 11.0 MODERATE RISK >11.0 HIGH RISKPerformed By: #### LIPID, CMP #### [facility] [address] [address] [address] Sarah ChurchCholesterol [Mass/Vol]110 mg/dLNormal<=200[facility] Comment on above:Performed By: #### LIPID, CMP #### [facility] [address] [address] [address] Sarah ChurchCholesterol in HDL [Mass/Vol]33 mg/dLCritically ewr46-90FknSt. John Of God HospitalComment on above:Performed By: #### LIPID, CMP #### [facility] [address] [place] [address] Dr. Sarah ChurchCholesterol in LDL [Mass/Vol]58.0 mg/dLUC HealthComment on above:Performed By: #### LIPID, CMP #### [facility] [address] [place] [address] Dr. Sarah Ngoesterjulius.total/Cholesterol in HDL [Mass ratio]3.3 {ratio} NormalSt. John Of God HospitalComment on above:Performed By: #### LIPID, CMP #### [facility] [address] [place] [address] Dr. Sarah Mondragon NORMAL> or = 60 mg/dl - LOW CARDIOVASCULAR RISK <40 mg/dl - HIGH CARDIOVASCULAR RISKUC HealthComment on above:Performed By: #### LIPID, CMP #### [facility] [address] [place] [address] Dr. Sarah ChurchLDL CALC NORMALSEE BELOWUC HealthComment on above:Result Comment: <100 mg/dl OPTIMAL 100 - 129 mg/dl NEAR OR ABOVE OPTIMAL 130 - 159 mg/dl BORDERLINE HIGH 160 - 189 mg/dl HIGH >190 mg/dl VERY HIGH Performed By: #### LIPID, CMP #### [facility] [address] [place] [address] Dr. Sarah ChurchTriglyceride [Mass/Vol]95 mg/dLNormal<=150[facility] Comment on above:Performed By: #### LIPID, CMP #### [facility] [address] [address] [address] Sarah ChurchVLDL CALC19.0 mg/dLNormalThe [facility] CenterComment on above: Performed By: #### LIPID, CMP #### [facility] [address] [address] [address] Sarah ChurchPROF 14(COMP METB)on 35-28-5105Icxepqm [Mass/Vol]3.3 g/dL Critically low3.4-5.0The [facility] CenterComment on above:Performed By: #### LIPID, CMP #### [facility] [address] [address] [address] Sarah ChurchAlbumin/Globulin [Mass ratio]0.8 {ratio}NormalThe [facility] CenterComment on above:Performed By: #### LIPID, CMP #### [facility] [address] [place] [address] Dr. Sarah Sorenson [Catalytic activity/Vol]100 U/PTieclm05-333Oyc [facility] CenterComment on above:Performed By: #### LIPID, CMP #### [facility] [address] [place] [address] Dr. Sarah Arias [Catalytic activity/Vol]74 U/LCritically lsqr11-59Pog [facility] CenterComment on above:Performed By: #### LIPID, CMP #### [facility] [address] [place] [address] Dr. Sarah Nobles gap [Moles/Vol]13.2 mmol/LNormalThe [facility] Comment on above:Performed By: #### LIPID, CMP #### [facility] [address] [place] [address] Dr. Sarah Gorman [Catalytic activity/Vol]42 U/LCritically jicq58-89Vfd [facility] CenterComment on above:Performed By: #### LIPID, CMP #### [facility] [address] [place] [address] Dr. Sarah ChurchBilirubin [Mass/Vol]0.4 mg/dLNormal0.2-1.0The [facility] Comment on above:Performed By: #### LIPID, CMP #### [facility] [address] [address] [address] Sarah ChurchCalcium [Mass/Vol]9.2 mg/dLNormal8.5-10.1The [facility] Comment on above:Performed By: #### LIPID, CMP #### [facility] [address] [address] [address] Sarah ChurchChloride [Moles/Vol]99 mmol/QBlihup97-959Vjg [facility] Comment on above:Performed By: #### LIPID, CMP #### [facility] [address] [address] [address] Sarah ChurchCO2 [Moles/Vol]30.4 mmol/AKwwbcg53.0-32.0The [facility] Comment on above:Performed By: #### LIPID, CMP #### [facility] [address] [place] [address] Dr. Sarah ChurchCreatinine [Mass/Vol]0.78 mg/dLNormal0.55-1.02St. [facility] HospitalComment on above:Performed By: #### LIPID, CMP #### [facility] [address] [address] [address] Sarah CamejoGFR-AF MEXICAN>60Normal>=60The [facility] CenterComment on above:Performed By: #### LIPID, CMP #### [facility] [address] [address] [address] Sarah Barrios-NON AF MEXICAN>60Normal>=60The [facility] CenterComment on above:Performed By: #### LIPID, CMP #### [facility] [address] [address] [address] Sarah ChurchGlobulin (S) [Mass/Vol]4.0 g/dLNormalThe [facility] CenterComment on above:Performed By: #### LIPID, CMP #### [facility] [address] [address] [address] Sarah ChurchGlucose [Mass/Vol]255 mg/dLCritically logo49-464Vkw [facility] CenterComment on above:Performed By: #### LIPID, CMP #### [facility] [address] [address] [address] Sarah ChurchPotassium [Moles/Vol]3.6 mmol/LNormal3.5-5.1The [facility] Comment on above:Performed By: #### LIPID, CMP #### [facility] [address] [address] [address] Sarah ChurchProtein [Mass/Vol]7.3 g/dLNormal6.4-8.2[facility] Comment on above:Performed By: #### LIPID, CMP #### [facility] [address] [address] [address] Sarah ChurchSodium [Moles/Vol]139 mmol/ZJpanbw671-763GlxSt. John Of God Hospital Comment on above:Performed By: #### LIPID, CMP #### [facility] [address] [address] [address] Sarah ChurchUrea nitrogen [Mass/Vol]8.0 mg/dLNormal7.0-18.0St. [facility] HospitalComment on above:Performed By: #### LIPID, CMP #### [facility] [address] [address] [address] Sarah Russell nitrogen/Creatinine [Mass ratio]10.3 mg/mgNormalThe [facility] CenterComment on above:Performed By: #### LIPID, CMP #### [facility] [address] [address] [address] Sarah ChurchMG MAMM SCREEN 3D ROB CADon [id number] MAMM SCREEN 3D ROB CAD Patient: ZOILA RAMOS Exam Date: 07/20/2022 : 1970 Gender:F Ordering : DR SUKH DELA CRUZ M.D. Admission #: [id number] Family : Order #: [id number] CLICK HERE TO VIEW EXAM RADIOLOGY REPORT PROCEDURE: MAMMOGRAM SCREENING 3D BILATERAL CAD COMPARISON: MAMMO ROB SCREEN W CAD DIG, 05/16/2012. INDICATIONS: Screening mammography Calculator Name NCI Breast Cancer Risk Assessment Tool 5 Year Breast Cancer Risk 1.20% Lifetime Breast Cancer Risk 10.80% Personal Breast Cancer No Personal Ovarian Cancer No Treatments None Family Cancers None LOCATION: [facility] BREAST COMPOSITION: Almost entirely fatty. [...] PALPABLE LUMP SHOULD BE BIOPSIED. Dictated by: Colten Tirado M.D. on 07/21/2022 at 08:22 Approved by: Colten Tirado M.D. on 07/21/2022 at 08:24UC HealthPROF CHEM 8 (BAS METB)on 53-15-5985Qczhk gap [Moles/Vol]14.5 mmol/L NormalSt. John Of God HospitalComment on above:Performed By: #### BMP #### [facility] [address] [address] [address] Sarah ChurchCalcium [Mass/Vol]9.8 mg/dLNormal8.5-10.1[facility] Comment on above:Performed By: #### BMP #### [facility] [address] [address] [address] Sarah ChurchChloride [Moles/Vol]99 mmol/QPakbuw11-280PvtSt. John Of God Hospital Comment on above:Performed By: #### BMP #### [facility] [address] [address] [address] Sarah ChurchCO2 [Moles/Vol]27.2 mmol/YHqmnae55.0-32.0[facility] Comment on above:Performed By: #### BMP #### [facility] [address] [address] [address] Sarah ChurchCreatinine [Mass/Vol]0.80 mg/dLNormal0.55-1.02St. [facility] Of God HospitalComment on above:Performed By: #### BMP #### [facility] [address] [address] [address] Smith ChangEGFR-AF MEXICAN>60Normal>=60The [facility]edo Hospitalment on above:Performed By: #### BMP #### [facility] [address] [address] [address] Sarah CamejoGFR-NON AF MEXICAN>60Normal>=60The [facility] CenterComment on above:Performed By: #### BMP #### [facility] [address] [address] [address] Sarah ChurchGlucose [Mass/Vol]458 mg/dLCritically trfh34-267Idz [facility] on above:Performed By: #### BMP #### [facility] [address] [address] [address] Sarah ChurchPotassium [Moles/Vol]4.7 mmol/LNormal3.5-5.1[facility] Comment on above:Performed By: #### BMP #### [facility] [address] [address] [address] Sarah ChurchSodium [Moles/Vol]136 mmol/PNqfaul322-819LtoSt. John Of God Hospital Comment on above:Performed By: #### BMP #### [facility] [address] [address] [address] Sarah ChurchUrea nitrogen [Mass/Vol]15.0 mg/dLNormal7.0-18.0[facility] on above:Performed By: #### BMP #### [facility] [address] [address] [address] Sarah ChurchUrea nitrogen/Creatinine [Mass ratio]18.8 mg/mgNormalThe [facility] CenterComment on above:Performed By: #### BMP #### [facility] [address] [address] [address] Sarah ChurchGLYCOHEMOGLOBIN A1Con 88-46-3493BVZ RECOMMENDATIONSEE BELOWNormal [facility] on above:Result Comment: ADA RECOMMENDED LIMIT 4.0 - 6.0 ADA THERAPEUTIC TARGET < 7.0 ACTION SUGGESTED > 7.0Performed By: #### A1C ####[facility] [address] [address]. Sarah ChurchGlucose [Mass/Vol]266 mg/dLNormalThMount St. Mary HospitalComment on above:Performed By: #### A1C ####[facility] [address] [address]Dr.Yilan ChurchHbA1c (Bld) [Mass fraction]10.9 % Critically high4.5-6.2St. [facility] Of God HospitalComment on above:Performed By: #### A1C ####[facility] [address] [address]. Smith ChangXR HIP RT 2 3V W PELVISon [id number] HIP RT 2 3V W PELVISEXAM: XR HIP RT 2 3V W PELVIS HISTORY: Pain in right hip joint COMPARISON: None. TECHNIQUE: 2 views of the right hip FINDINGS: No acute fracture seen. Joint alignment is normal. Joint spaces are preserved. Soft tissues appear unremarkable. IMPRESSION: No acute fracture or malalignment. Electronically authenticated by: JAVAD ROB Date: 2022-04-06 21:15NormalKettering Health Dayton AUTO DIFFon [id number] #0.1 103/ulNormal0.0-0.1St. [facility] Of God HospitalComment on above:Performed By: #### CBC #### [facility] [address] [place] [address] Dr. Sarah ChurchBasophils/100 WBC (Bld)0.4 %Normal0.2-2.0[facility] Comment on above:Performed By: #### CBC #### [facility] [address] [address] [address] Sarah Marie #0.2 103/ulNormal0.0-0.7The [facility] CenterComment on above: Performed By: #### CBC #### [facility] [address] [address] [address] Sarah Camejoosinophils/100 WBC (Bld)1.3 %Normal0.9-7.0[facility] Comment on above:Performed By: #### CBC #### [facility] [address] [address] [address] Sarah Camejorythrocyte distribution width (RBC) [Ratio]12.3 %Nfrgbc75.0-15.0 [facility] on above:Performed By: #### CBC #### [facility] [address] [place] [address] Dr. Sarah ChurchHematocrit (Bld) [Volume fraction]43.1 %Xvxvxc68.0-48.0The [facility] CenterComment on above:Performed By: #### CBC #### [facility] [address] [place] [address] Dr. Sarah ChurchHemoglobin (Bld) [Mass/Vol]14.6 g/gYCixwsy15.0-16.0The [facility] CenterComment on above:Performed By: #### CBC #### [facility] [address] [place] [address] Dr. Sarah Huynh #0.04 10e3/ulCritically high0.00-0.03The [facility] Comment on above:Performed By: #### CBC #### [facility] [address] [place] [address] Dr. Sarah ChurchIG %0.3 %Normal0.0-0.5The [facility] CenterComment on above: Performed By: #### CBC #### [facility] [address] [place] [address] Dr. Sarah Vera #1.6 103/ulNormal1.2-3.8The [facility] CenterComment on above:Performed By: #### CBC #### [facility] [address] [place] [address] Dr. Sarah Hadleyhocytes/100 WBC (Bld)12.5 %Critically low20.5-60.0The [facility] CenterComment on above:Performed By: #### CBC #### [facility] [address] [place] [address] Dr. Sarah ArmstrongUAL DIFF REQNONormalThe [facility] CenterComment on above: Performed By: #### CBC #### [facility] [address] [place] [address] Dr. Sarah Luke (RBC) [Entitic mass]29.4 ggAlnozm83.7-34.0The [facility] CenterComment on above:Performed By: #### CBC #### [facility] [address] [place] [address] Dr. Sarah Rao (RBC) [Mass/Vol]33.9 g/lTTitntv00.9-35.2The [facility] CenterComment on above:Performed By: #### CBC #### [facility] [address] [place] [address] Dr. Sarah Rao (RBC) [Entitic vol]86.7 cYQnujyh23.0-99.0The [facility] CenterComment on above:Performed By: #### CBC #### [facility] [address] [place] [address] Dr. Sarah Reza #1.0 103/ulCritically high0.3-0.8The [facility] Comment on above:Performed By: #### CBC #### [facility] [address] [place] [address] Dr. Sarah Caalocytes/100 WBC (Bld)7.7 %Normal1.7-12.0[facility] Comment on above:Performed By: #### CBC #### [facility] [address] [place] [address] Dr. Sarah Beard #9.6 103/ulCritically high1.4-6.5The [facility] Comment on above:Performed By: #### CBC #### [facility] [address] [place] [address] Dr. Sarah Rizviutrophils/100 WBC (Bld)77.8 %Critically high43.0-75.0The [facility] CenterComment on above:Performed By: #### CBC #### [facility] [address] [place] [address] Dr. Sarah Shipleylet mean volume (Bld) [Entitic vol]11.0 fLNormal9.5-13.5The [facility] CenterComment on above:Performed By: #### CBC #### [facility] [address] [address] [address] Sarah ChurchPLT220 103/siThfwbs554-757Hfy [facility] CenterComment on above: Performed By: #### CBC #### [facility] [address] [address] [address] Sarah ChurchRBC4.97 106/ulNormal4.20-5.40The [facility] CenterComment on above:Performed By: #### CBC #### [facility] [address] [address] [address] Sarah ChurchWBC12.4 103/ulCritically high4.0-11.0The [facility] CenterComment on above:Performed By: #### CBC #### [facility] [address] [place] [address] Dr. Sarah Krishnamurthy A STREP CULTUREon 11-05-2021. pyogenes Ag Ql (Unsp spec) Culture Observations: NEGATIVE FOR GROUP A STREPTOCOCCUS.NormalThe [facility] CenterComment on above: Performed By: #### GRASTCX, SSCRN ####[facility] [address] [address]Dr. Sarah [facility]PI[facility] GLU[facility]SEon 11-05-2021 Glucose [Mass/Vol]214 mg/dLCritically zjxp59-238Tsp [facility] on above:Performed By: #### POCGLUC #### [facility] [address] [address] [address] Sarah ChurchSTREPT SCREENon [id number] SCREEN ANegativeNormalNEGATIVEThe [facility] CenterComveterans affairs [facility] on above:Performed By: #### GRASTCX, SSCRN ####[facility] [address] [address]Dr. Sarah Vines AUTO DIFFon [id number] #0.1 103/ulNormal0.0-0.1The [facility] CenterComveter[facility] on above:Performed By: #### CBC #### [facility] [address] [place] [address] Dr. Sarah ChurchBasophils/100 WBC (Bld)0.8 %Normal0.2-2.0The [facility] Comment on above:Performed By: #### CBC #### [facility] [address] [place] [address] Dr. Sarah Marie #0.3 103/ulNormal0.0-0.7The [facility] CenterComment on above: Performed By: #### CBC #### [facility] [address] [place] [address] Dr. Sarah Camejoosinophils/100 WBC (Bld)3.4 %Normal0.9-7.0The [facility] Comment on above:Performed By: #### CBC #### [facility] [address] [place] [address] Dr. Sarah Camejorythrocyte distribution width (RBC) [Ratio]12.6 %Hlzbpl80.0-15.0 The [facility] CenterComment on above:Performed By: #### CBC #### [facility] [address] [place] [address] Dr. Sarah ChurchHematocrit (Bld) [Volume fraction]45.4 %Cyxizp28.0-48.0The [facility] CenterComment on above:Performed By: #### CBC #### [facility] [address] [place] [address] Dr. Sarah ChurchHemoglobin (Bld) [Mass/Vol]15.0 g/iFDuqrji89.0-16.0The [facility] CenterComment on above:Performed By: #### CBC #### [facility] [address] [place] [address] Dr. Sarah Huynh #0.02 10e3/ulNormal0.00-0.03The [facility] CenterComment on above:Performed By: #### CBC #### [facility] [address] [place] [address] Dr. Sarah Huynh %0.2 %Normal0.0-0.5The [facility] CenterComment on above: Performed By: #### CBC #### [facility] [address] [place] [address] Dr. Sarah Vera #2.7 103/ulNormal1.2-3.8The [facility] CenterComment on above:Performed By: #### CBC #### [facility] [address] [place] [address] Dr. Sarah Hadleyhocytes/100 WBC (Bld)31.0 %Diygeq24.5-60.0The [facility] CenterComment on above:Performed By: #### CBC #### [facility] [address] [place] [address] Dr. Sarah Schulz DIFF REQNONormalThe [facility] CenterComment on above: Performed By: #### CBC #### [facility] [address] [place] [address] Dr. Sarah Rao (RBC) [Entitic mass]29.3 upShorpf13.7-34.0The [facility] CenterComment on above:Performed By: #### CBC #### [facility] [address] [place] [address] Dr. Sarah Rao (RBC) [Mass/Vol]33.0 g/mYGyeyen64.9-35.2The [facility] CenterComment on above:Performed By: #### CBC #### [facility] [address] [place] [address] Dr. Sarah Rao (RBC) [Entitic vol]88.7 dYCzziyk29.0-99.0The [facility] CenterComment on above:Performed By: #### CBC #### [facility] [address] [place] [address] Dr. Sarah Reza #0.6 103/ulNormal0.3-0.8The [facility] CenterComment on above:Performed By: #### CBC #### [facility] [address] [place] [address] Dr. Sarah Caalocytes/100 WBC (Bld)6.5 %Normal1.7-12.0The [facility] Comment on above:Performed By: #### CBC #### [facility] [address] [address] [address] Sarah RizviUT #5.0 103/ulNormal1.4-6.5The [facility] on above:Performed By: #### CBC #### [facility] [address] [address] [address] Sarah Rizviutrophils/100 WBC (Bld)58.1 %Covawg56.0-75.0The [facility] on above:Performed By: #### CBC #### [facility] [address] [address] [address] Sarah ChurchPlatelet mean volume (Bld) [Entitic vol]11.0 fLNormal9.5-13.5The [facility] on above:Performed By: #### CBC #### [facility] [address] [address] [address] Sarah ChurchPLT226 103/wqHygcga209-076Low [facility] on above: Performed By: #### CBC #### [facility] [address] [address] [address] Sarah ChurchRBC5.12 106/ulNormal4.20-5.40The [facility] on above:Performed By: #### CBC #### [facility] [address] [address] [address] Sarah ChurchWBC8.6 103/ulNormal4.0-11.0The [facility] on above: Performed By: #### CBC #### [facility] [address] [address] [address] Sarah ChurchGLYCOHEMOGLOBIN A1Con 17-11-3434YXV RECOMMENDATIONSEE BELOWNormal St[facility] HospitalComveter[facility] on above:Result Comment: ADA RECOMMENDED LIMIT 4.0 - 6.0 ADA THERAPEUTIC TARGET < 7.0 ACTION SUGGESTED > 7.0Performed By: #### A1C ####[facility] [address] [address]Dr. Sarah ChurchGlucose [Mass/Vol]275 mg/dLNormalThe Robert HospitalComment on above:Performed By: #### A1C ####[facility] [address] [address]Dr.Sarah OhjqfQvM6w (Bld) [Mass fraction]11.2 % Critically high4.5-6.2The [facility] Hospitalment on above:Performed By: #### A1C ####[facility] [address] [address]Dr. Yilan ChangLIPID PROFILEon [id number]-HDL RATIO NORMSEE BELOWUC HealthComment on above:Result Comment: 3.3 - 4.4 LOW RISK 4.4 - 7.1 AVERAGE RISK 7.1 - 11.0 MODERATE RISK >11.0 HIGH RISKPerformed By: #### LIPID, CMP ####[facility] [address] [address]Dr. Yilan ChangCholesterol [Mass/Vol]159 mg/dLNormal<=200The [facility] Comment on above:Performed By: #### LIPID, CMP ####[facility] [address] [address]Dr. Yilan ChangCholesterol in HDL [Mass/Vol]41 mg/fQHufhng22-61Rdf [facility] on above: Performed By: #### LIPID, CMP ####[facility] [address] [address]Dr. Yilan ChangCholesterol in LDL [Mass/Vol]102.6 mg/dLCleveland Clinic Avon Hospital on above:Performed By: #### LIPID, CMP ####[facility] [address] [id number]. Yilan ChangCholesterol.total/Cholesterol in HDL [Mass ratio]3.9 {ratio}NormalThe [facility] Hospitalment on above:Performed By: #### LIPID, CMP ####[facility] [address] [id number]. Yilan ChangHDL NORMAL> or = 60 mg/dl - LOW CARDIOVASCULAR RISK <40 mg/dl - HIGH CARDIOVASCULAR RISKUC HealthComment on above:Performed By: #### LIPID, CMP ####[facility] [address] [address]Dr. Sarah ChangLDL CALC NORMALSEE BELOWUC HealthComment on above: Result Comment: <100 mg/dl OPTIMAL 100 - 129 mg/dl NEAR OR ABOVE OPTIMAL 130 - 159 mg/dl BORDERLINE HIGH 160 - 189 mg/dl HIGH >190 mg/dl VERY HIGHPerformed By: #### LIPID, CMP ####[facility] [address] [address]Dr. Sarah ChurchTriglyceride [Mass/Vol]77 mg/dLNormal<=150The [facility] CenterComment on above:Performed By: #### LIPID, CMP ####[facility] [address] [address]Dr. Sarah ChangVLDL CALC15.4 mg/dLNoTwin City HospitalComment on above:Performed By: #### LIPID, CMP ####[facility] [address] [address]Dr. Sarah ChurchMICROALBUMIN, RAND URon 36-96-4927yDPL2.0 mg/LNormal<=30.0The [facility] on above:Performed By: #### MALBR #### [facility] [address] [address] [address] Sarah ChurchPROF 14(COMP METB)on 28-18-2915Shrxdqz [Mass/Vol]3.5 g/dLNormal 3.4-5.0The [facility] CenterComment on above:Performed By: #### LIPID, CMP ####[facility] [address] [address]Dr. Sarah ChurchAlbumin/Globulin [Mass ratio]0.8 {ratio}NormalThe [facility] Comment on above:Performed By: #### LIPID, CMP ####[facility] [address] [address]Dr. Sarah ChurchALP [Catalytic activity/Vol]85 U/FRwlrre00-994Urd [facility] HospitalComment on above:Performed By: #### LIPID, CMP ####[facility] [address] [id number]. Yilan ChangALT [Catalytic activity/Vol]59 U/L Cethhm08-45Bda [facility] CenterComment on above:Performed By: #### LIPID, CMP ####[facility] [address] [id number]. Yilan ChangAnion gap [Moles/Vol]15.1 mmol/LNormalThe [facility] CenterComment on above:Performed By: #### LIPID, CMP ####[facility] [address] [address]Dr. Yilan ChangAST [Catalytic activity/Vol]32 U/L Exfbwi70-65Rsc [facility] CenterComment on above:Performed By: #### LIPID, CMP ####[facility] [address] [place], [place] [address]Dr. Yilan ChangBilirubin [Mass/Vol]0.4 mg/dLNormal0.2-1.0The [facility] Comment on above:Performed By: #### LIPID, CMP ####[facility] [address] [place], [place] [address]Dr. Yilan ChangCalcium [Mass/Vol]9.0 mg/dLNormal8.5-10.1The [facility] CenterComment on above:Performed By: #### LIPID, CMP ####[facility] [address] [place], [place] [address]Dr. Yilan ChangChloride [Moles/Vol]102 mmol/LNormal 98-107The [facility] CenterComment on above:Performed By: #### LIPID, CMP ####[facility] [address] [place], [place] [address]Dr. Yilan ChangCO2 [Moles/Vol]30.2 mmol/KTxdtul63.0-32.0The [facility] CenterComment on above:Performed By: #### LIPID, CMP ####[facility] [address] [place], [place] [address]Dr. Yilan ChangCreatinine [Mass/Vol]0.81 mg/dLNormal0.55-1.02The [facility] CenterComment on above:Performed By: #### LIPID, CMP ####[facility] Dhcot[address] [place], [place] [address]Dr. Yilan ChangEGFR-AF MEXICAN>60Normal>=60The [facility] CenterComment on above:Performed By: #### LIPID, CMP ####[facility] Y[address] [place], [place] [address]Dr. Yilan ChangEGFR-NON AF MEXICAN>60Normal>=60 The [facility] CenterComment on above:Performed By: #### LIPID, CMP ####[facility] Xqujorpd[address] [place], [place] [address]Dr. Yilan Church Globulin (S) [Mass/Vol]3.9 g/dLNormalThe [facility] CenterComment on above: Performed By: #### LIPID, CMP ####[facility] [address]rsthq[address]rf[address] [place], [place] [address]Dr. Yilan ChangGlucose [Mass/Vol]218 mg/dLCritically exsc50-712Wlb [facility] CenterComment on above:Performed By: #### LIPID, CMP ####[facility] [address] [place], [place] [address]Dr. Yilan ChangPotassium [Moles/Vol]4.3 mmol/LNormal3.5-5.1The [facility] Comment on above:Performed By: #### LIPID, CMP ####[facility] [address] [place], [place] [address]Dr. Yilan ChangProtein [Mass/Vol]7.4 g/dLNormal6.4-8.2The [facility] CenterComment on above:Performed By: #### LIPID, CMP ####[facility] Aoc[address] [place], [place] [address]Dr. Yilan ChangSodium [Moles/Vol]143 mmol/LNormal 136-145The [facility] CenterComment on above:Performed By: #### LIPID, CMP ####[facility] Scwax[address] [place], [place] [address]Dr. Yilan ChangUrea nitrogen [Mass/Vol]14.0 mg/dLNormal7.0-18.0[facility] Comment on above:Performed By: #### LIPID, CMP ####[facility] [address] [place], [place] [address]Um. Sarah ChangUrea nitrogen/Creatinine [Mass ratio]17.2 mg/mgNormalThMount St. Mary HospitalComment on above:Performed By: #### LIPID, CMP ####[facility] [address] [place], [place] [address]Ra. Sarah Church Vital Signs Date TimeVital SignValuePerforming QsqurjwodMgvimtaq14-30-8413 13:07-0400Body xnuxgu345.48 cmSukh Dela Cruz MD Work Phone: [phone]08-14-2025 13:07-0400 Diastolic blood ovooxibu93 mm[Hg]Sukh Dela Cruz MD Work Phone: [phone])[address]08-14-2025 13:07-0400 Heart rate81 /Ilene Dela Cruz MD Work Phone: [phone])[address]08-14-2025 13:07-0400 Respiratory rate18 /Ilene Dela Cruz MD Work Phone: [phone]08-14-2025 13:07-0400 Systolic blood omjacxrw786 mm[Hg]Sukh Dela Cruz MD Work Phone: 1([phone] [place], [place] [address]004-24-2025 13:43-0400 Body .48 cmSukh Dela Cruz MD Work Phone: [phone]04-24-2025 13:43-0400 Body mass index (BMI) [Ratio]40 kg/z0ObqlmzSukh Dela Cruz MD Work Phone: [phone]04-24-2025 13:43-0400 Body aqhrgx25.33 kgSukh Dela Cruz MD Work Phone: [phone])[address]04-24-2025 13:43-0400 Diastolic blood mm[Hg]Sukh Dela Cruz MD Work Phone: [phone]04-24-2025 13:43-0400 Heart rate89 /Ilene Dela Cruz MD Work Phone: [phone] [place], [place] [address]004-24-2025 13:43-0400 Systolic blood jejizxum663 mm[Hg]Sukh Dela Cruz MD Work Phone: [phone]04-08-2025 13:09-0400 Body wmdaqa430.48 cmSukh Dela Cruz MD Work Phone: [phone]04-08-2025 13:09-0400 Diastolic blood xvrsjkay49 mm[Hg]Sukh Dela Cruz MD Work Phone: [phone]04-08-2025 13:09-0400 Heart rate85 /Ilene Dela Cruz MD Work Phone: [phone]04-08-2025 13:09-0400 Respiratory rate18 /Ilene Dela Cruz MD Work Phone: [phone]04-08-2025 13:09-0400 SaO2% (BldA) [Mass fraction]96 %Sukh Dela Cruz MD Work Phone: [phone]04-08-2025 13:09-0400 Systolic blood cuugypal703 mm[Hg]Sukh Dela Cruz MD Work Phone: [phone]02-13-2025 10:050 Body ginxra099.5 cmNacho Patiño MD Work Phone: [phone]02-13-2025 10:050Body mass index (BMI) [Ratio]38.59 kg/i2CfbxaliNacho Patiño MD Work Phone: [phone])[facility]02-13-2025 10:050Body .3 [degF]Nacho Patiño MD Work Phone: [phone]02-13-2025 10:050Body txyhve35.71 kgNacho Patiño MD Work Phone: [phone]02-13-2025 10:21-0500Diastolic blood abuedkpi54 mm[Hg]Nacho Patiño MD Work Phone: [phone]02-13-2025 10:21-0500Heart rate 88 /Dioni Patiño MD Work Phone: [phone]02-13-2025 10:21-3428HeJ6% (BldA) [Mass fraction]97 %Nacho Patiño MD Work Phone: [phone]02-13-2025 10:21-0500Systolic blood yonihkwl993 mm[Hg]Nacho Patiño MD Work Phone: [phone]01-29-2025 10:48-0500Body xsjuzs950.48 cmAd[facility]01-29-2025 10:48-0500Body mass index (BMI) [Ratio]38.5 kg/p6RncdwalsiAdams County [facility] Center01-29-2025 10:48-0500Body qovbla63.7 kgAd[facility] Center01-29-2025 10:48-0500Diastolic blood imefglhh95 mm[Hg][facility] 05-30-2024 10:48-0500Heart rate80 /[facility] 05-30-2024 10:48-0500Systolic blood ogswrtdb364 mm[Hg][facility]10-24-2024 13:23-0400Body vtpdvu183.48 cmAd[facility] Center10-24-2024 13:23-0400Body mass index (BMI) [Ratio]38 kg/j3QccrjequkAdams County [facility] Center10-24-2024 13:23-0400Body yivsrm42.37 kgAd[facility] County Regional Medical Center10-24-2024 13:23-0400Diastolic blood xgpybxfe07 mm[Hg] [facility]10-24-2024 13:23-0400Heart rate75 /[facility]10-24-2024 13:23-0400Respiratory rate18 /[facility]10-24-2024 13:23-3465BhA8% (BldA) [Mass fraction]97 % [facility]10-24-2024 13:0400Systolic blood uxojxrlp662 mm[Hg][facility]08-13-2024 13:030400Body nbwpsa573.48 cm [facility]08-13-2024 13:030400Body mass index (BMI) [Ratio]37.1 kg/a7TotlcoerjAdams County Regional Medical Center08-13-2024 13:0400Body feqotg34.07 kgAd[facility] County Regional [facility] Center08-13-2024 13:0400Diastolic blood rcygsyec76 mm[Hg][facility]08-13-2024 13:0400 Heart rate78 /[facility]08-13-2024 13:0400 Respiratory rate18 /[facility]08-13-2024 13:03-0400 SaO2% (BldA) [Mass fraction]96 %[facility]08-13-2024 13:030400Systolic blood pqoofxfn110 mm[Hg][facility] 12-05-2023 11:240400Body mfxefe150.48 cmAd[facility] 12-05-2023 11:240400Body mass index (BMI) [Ratio]36.9 kg/k4KxerxrzfrAdams County Regional Medical Center08-05-2024 11:0400Body .62 kgAd[facility] County Regional [facility] Center08-05-2024 11:240400Diastolic blood kepilvvs36 mm[Hg][facility]08-05-2024 11:24-0400Heart rate80 /[facility]08-05-2024 11:24-0400Systolic blood ahuqdzsd219 mm[Hg][facility]05-30-2024 13:44-0400Diastolic blood udinokor64 mm[Hg][facility]05-30-2024 13:44-0400Systolic blood vkhsytio962 mm[Hg] [facility]05-30-2024 13:19-0400Body tyruxz203.48 cm [facility]05-30-2024 13:19-0400Body mass index (BMI) [Ratio]38.7 kg/w8GlhsiwnorAdams County Regional Medical Center05-30-2024 13:040Body .9 kgAd[facility] County Regional Medical Center05-30-2024 13:0400Heart rate89 /[facility]05-30-2024 13:Respiratory rate18 /[facility]05-30-2024 13:198954MvW2% (BldA) [Mass fraction]98 %[facility]05-07-2024 11:08-0400Body height 157.48 cmAd[facility] County [facility] Center05-07-2024 11:08-0400Body mass index (BMI) [Ratio]37.6 kg/t4PpludstjtAdams County Regional [facility] Center05-07-2024 11:08-0400 Body wepraj59.44 [facility]05-07-2024 11:08-0400 Diastolic blood uvtjwnuf38 mm[Hg][facility]05-07-2024 11:08-0400Heart rate89 /[facility]05-07-2024 11:08-0400Systolic blood ivnymjbv507 mm[Hg][facility] 08-24-2023 15:08-0400Body huxwyj383.48 cmAd[facility] 08-24-2023 15:08-0400Body mass index (BMI) [Ratio]37.5 kg/q5XjsyirzaiAdams County Regional Medical Center04-24-2024 15:08-0400Body kibpsz36.21 kgAd[facility] County Regional [facility] Center04-19-2024 10:43-0400Body mloqqk401.48 cmMD Sukh Dela Cruz Work Phone: [facility]04-19-2024 10:43-0400 Body mass index (BMI) [Ratio]37.5 kg/m2MD Sukh Dela Cruz Work Phone: [facility]04-19-2024 10:43-0400 Body .09 kgMD Sukh Dela Cruz Work Phone: [facility]04-19-2024 10:43-0400 Diastolic blood qmlirvtw52 mm[Hg]MD Sukh Dela Cruz Work Phone: [phone]04-19-2024 10:43-0400 Heart rate83 /minMD Sukh Dela Cruz Work Phone: [phone]09[facility]04-19-2024 10:43-0400 Systolic blood muufolkr703 mm[Hg]MD Sukh Dela Cruz Work Phone: [phone]03-28-2024 14:22-0400 Body xrhmyv409.48 cmMD Sukh Dela Cruz Work Phone: [phone])[address]03-28-2024 14:22-0400 Body mass index (BMI) [Ratio]37.6 kg/m2MD Sukh Dela Cruz Work Phone: [phone])[address]03-28-2024 14:22-0400 Body cnsnle00.44 kgMD Sukh Dela Cruz Work Phone: [phone] [address]03-28-2024 14:22-0400 Diastolic blood myvnznmx67 mm[Hg]MD Sukh Dela Cruz Work Phone: [phone] [place], [place] 4537003-28-2024 14:22-0400 Heart rate83 /minMD Sukh Dela Cruz Work Phone: [phone] [place], [place] 4537003-28-2024 14:22-0400 Respiratory rate18 /minMD Sukh Dela Cruz Work Phone: 1([phone] [place], [place] 4537003-28-2024 14:22-0400 SaO2% (BldA) [Mass fraction]97 %MD Sukh Dela Cruz Work Phone: [phone]03-28-2024 14:22-0400 Systolic blood mm[Hg]MD Sukh Dela Cruz Work Phone: [phone]03-19-2024 10:57-0400 Body tomcdj042.48 cmMD Sukh Dela Cruz Work Phone: 1(366)057-[address] [place], [place] 4537003-19-2024 10:57-0400 Body mass index (BMI) [Ratio]37.1 kg/m2MD Sukh Dela Cruz Work Phone: [facility]03-19-2024 10:57-0400 Body okbatv65.07 kgMD Sukh Dela Cruz Work Phone: [facility]03-19-2024 10:57-0400 Diastolic blood mm[Hg]MD Sukh Dela Cruz Work Phone: [facility]03-19-2024 10:57-0400 Heart rate89 /minMD Sukh Dela Cruz Work Phone: [facility]03-19-2024 10:57-0400 Systolic blood qxwhqoha995 mm[Hg]MD Sukh Dela Cruz Work Phone: [facility]01-24-2024 11:00-0500 Body .48 cmDeborah Scally Other [facility]01-24-2024 11:00-0500 Body mass index (BMI) [Ratio]37.23 kg/b5Skisaup Scally Other [employer] Other [id number] 11:00-0500Body .35 kgDeborah Scally Other [facility]01-24-2024 11:00-0500 Diastolic blood xrrlgvov72 mm[Hg]Cathie Scally Other [facility]01-24-2024 11:00-0500 Respiratory rate18 /minDeborah Scally Other [employer] Other [id number] 11:00-4892VqU1% (BldA) [Mass fraction]95 % Cathie Scally Other [employer] Other 01-24-2024 11:00-0500Systolic blood ezokroet571 mm[Hg] Cathie Scally Other [facility]12-15-2023 11:00-0500 Body eolgzw022.48 cmSukh Jose De Jesus Other [facility]12-15-2023 11:00-0500 Body mass index (BMI) [Ratio]37.49 kg/p1Fpqxcceduardo Dela Cruz Other [employer] Other [id number] 11:00-0500Body rcoxgw68.99 kgSukh Jose De Jesus Other [employer] Other 12-15-2023 11:00-0500Body pkjawe29.98 kgMD Sukh Dela Cruz Work Phone: [facility]12-15-2023 11:00-0500 Diastolic blood ertvwxpd34 mm[Hg]Sukh Dela Cruz Other [facility]12-15-2023 11:00-0500 Systolic blood jmfvuxif608 mm[Hg]Sukh Dela Cruz Other [facility]02-21-2023 13:30-0500 Body vvdfug242.48 cmSukh Jose De Jesus Other [employer] Other 02-21-2023 13:30-0500Body mass index (BMI) [Ratio] 36.94 kg/l4UretxmSukh Dela Cruz Other [employer] Other 02-21-2023 13:30-0500Body wkpgmy77.63 kgSukh Dela Cruz Other [employer] Other 02-21-2023 13:30-0500Diastolic blood mm[Hg] Sukh Dela Cruz Other [employer] Other 02-21-2023 13:30-1293VuP7% (BldA) [Mass fraction]97 % Sukh Dela Cruz Other [employer] Other 02-21-2023 13:30-0500Systolic blood rtdfljsa499 mm[Hg] Sukh Dela Cruz Other [employer] Other Encounters Encounter DateEncounter TypeCare ProviderFacilityStart: 12-13-2024 End: 70-56-6975blclgpowgpPsgnzn E Braun MD Work Phone: [facility] Work Phone: Start: 12-13-2024 End: 12-72-5779Rqjzqcq encounter procedureNathansophie Calvillo Sam [facility] Work Phone: Start: 08-23-2024 End: 31-93-1798esdcvvgxgyKqrecf E Braun MD Work Phone: [facility] Work Phone: Start: 08-23-2024 End: 32-12-4528Ytcbeay encounter procedureSukh Dela Cruz MD Work Phone: [facility] Work Phone: Start: 51-19-3573Nfp-patient / Non-visitSukh Dela Cruz MD Work Phone: [facility] Work Phone: Start: 08-07-2024 End: 14-87-0900nauvavullqIsectz E Braun MD Work Phone: [facility] Work Phone: Start: 08-07-2024 End: 08-70-3218Bgdxnqj encounter procedureSukh Dela Cruz MD Work Phone: [facility] Work Phone: Start: 98-32-8632Gnj-patient / Non-visitSukh Dela Cruz MD Work Phone: [facility] Work Phone: Start: 07-05-2024 End: 18-56-3960uilmcpaiheMrwctb E Braun MD Work Phone: [facility] Work Phone: Start: 07-05-2024 End: 77-73-4879Wqfasnwk ReferredSukh Dela Cruz MD Work Phone: [facility] Path Spec [place] HospStart: 79-60-1969Avf-patient / Non-visitSukh Dela Cruz MD Work Phone: [facility] Work Phone: Start: 51-67-4083Otv-patient / Non-visitSukh Dela Cruz MD Work Phone: [facility] Work Phone: Start: 06-19-2024 End: 54-52-9691zcikitqbmoPWUDEVE [facility] Start: 87-83-4564Nnk-patient / Non-visitSukh Dela Cruz MD Work Phone: [facility] Work Phone: Start: 06-14-2024 End: 60-77-7804Leewwq outpatient new 30 minutesMohamed Ashley Patiño MD Work Phone: [phone] Vascular SurgeryComment on above:Gangrene of toe of left foot ([facility]) (Primary Dx)Start: 06-14-2024 End: 26-91-1803sjdqgbszdnTHSTATG F OSMANWood County Hospital Ambulatory PPGStart: 00-86-8147Kgu-patient / Non-visitSukh Dela Cruz MD Work Phone: [facility] Work Phone: Start: 48-51-9294Lwh-patient / Non-visitSukh Dela Cruz MD Work Phone: [facility] Work Phone: Start: 11-47-8119Gqm-patient / Non-visitSukh Dela Cruz MD Work Phone: [facility] Work Phone: Start: 16-43-7067Cqf-patient / Non-visitSukh Dela Cruz MD Work Phone: [facility] Work Phone: Start: 12-77-0649Snquplg encounter statusSukh Dela Cruz MD Work Phone: [facility] 05-30-2024 End: 94-12-8976ctautgzagiUixuwmjfwUniversity [facility]als [facility] Work Phone: Start: 05-30-2024 End: 59-32-9116Lsiodfkma for general adult medical examination without abnormal findingsSukh Dela Cruz MD Work Phone: [facility]: 05-30-2024 End: 06-58-3153Bmoxxyl encounter procedureAt[facility]ician [facility] Work Phone: Start: 05-24-2024 End: 11-92-4579djambdqfewDmeorvvgzUniversity [facility]als [facility] Work Phone: Start: 05-24-2024 End: 27-04-1493Ynfvafg encounter procedureAt[facility] Physician [facility] Work Phone: Start: 96-93-3784Qrz-patient / Non-visitFirlifepoint health Physician [facility] Work Phone: Start: 96-61-2545Zyb-patient / Non-visitFirlifepoint health Physician GroupMain [facility] Work Phone: Start: 04-19-2024 End: 46-59-1271Slavben encounter procedureAt[facility]ician [facility] Work Phone: Start: 46-02-7981Lgx-patient / Non-visitFircole [facility]ician [facility] Work Phone: Start: 02-23-2024 End: 60-92-3460ugsxbwhehoCfzlbvs C [facility]enoircinthyaSum[facility] Work Phone: Start: 02-23-2024 End: 27-50-2367Hdobobb encounter procedureFATEMEH Vargas Work Phone: [facility] Work Phone: Start: 02-23-2024 End: 68-97-6988mkfknpbhovDjeilcqloSt. Mary's Medical Center Work Phone: Start: 02-23-2024 End: 87-45-4699Vyxmszx encounter procedureFirkimberlys Physician Group-[facility] Work Phone: Start: 01-17-2024 End: 42-49-8430crcdceimudSniqzghwkSt. Mary's Medical Center Work Phone: Start: 01-17-2024 End: 24-13-6936Kqqmelb encounter procedureFirkimberlys Physician Group-[facility] Work Phone: Start: 12-13-2023 End: 26-98-6816rdnhmxcaioYnrqcgkwjUniversity Hospitals [facility] Work Phone: Start: 12-13-2023 End: 67-93-0253Aokpqii encounter procedureFirkimberlys Physician Group-[facility] Work Phone: Start: 12-05-2023 End: 22-72-0364lqbsupmlnqPekhaqplgUniversity Hospitals [facility] Work Phone: Start: 12-05-2023 End: 77-99-0384Akkpmyp encounter procedureFirkimberlys Physician Group-[facility] Work Phone: Start: 11-07-2023 End: 38-55-9011gnpcikhjabCglipqkmvSt. Mary's Medical Center Work Phone: Start: 11-07-2023 End: 79-68-8719Ukcanft encounter procedureFirlifepoint health Physician [facility] Work Phone: Start: 09-29-2023 End: 75-23-7171xylazziwilQygadseipSt. Mary's Medical Center Work Phone: Start: 09-29-2023 End: 29-46-2908Sfzyzza encounter procedureFirlifepoint health Physician [facility] Work Phone: Start: 09-06-2023 End: 93-27-7207xayqeiplkgCipmknqduSt. Mary's Medical Center Work Phone: Start: 09-06-2023 End: 50-24-9933Sgrpzmm encounter procedureAt[facility] Physician [facility] Work Phone: Start: 08-24-2023 End: 61-09-4950zzttozprkkWojeomwtdSt. Mary's Medical Center Work Phone: Start: 08-24-2023 End: 55-56-1361Uyrjqob encounter procedureAt[facility] Health [facility] Physician [facility] Work Phone: Start: 08-19-2023 End: 90-34-9678lmvurlxdsiVM Marcia E Braun Work Phone: [facility] Work Phone: Start: 08-19-2023 End: 12-97-3036Xgsxbrs encounter procedureMD Sukh Dela Cruz Work Phone: [facility] GroupMain [facility] Work Phone: Start: 07-28-2023 End: 01-54-9223gqgrfzkimdWS Marcia E Braun Work Phone: [facility] Work Phone: Start: 07-28-2023 End: 71-82-7318Eczvcyf encounter procedureMD Sukh Dela Cruz Work Phone: [facility]ician [facility] Work Phone: Start: 07-19-2023 End: 57-58-3309yhrseydvpbCZ Marcia E Braun Work Phone: [facility] Work Phone: Start: 07-19-2023 End: 59-88-7804Snylcxt encounter procedure Sukh Jose De Jesus Work Phone: [facility] Work Phone: Start: 03-46-0494Ftj-patient / Non-visitMD Sukh Dela Cruz Work Phone: [facility] Professional [employer] Work Phone: Start: 06-14-2023 End: 42-53-6072unfhemqdlpZS Marcia E Braun Work Phone: [facility] Work Phone: Start: 06-14-2023 End: 69-01-6852Xahwvtp encounter procedureMD Sukh Dela Cruz Work Phone: [facility] GroupTHE [facility] Work Phone: Start: 06-06-2023 End: 94-52-7695unxdtnqsufJpziiq Jose De Jesus Other [employer] Other Start: 38-35-9963Tjtssyxxw encounterSukh Dela CruzSelect Medical [facility] Clinic [facility] Hospital, Avontart: 97-55-2481KSQD visit new patientWernersville [facility] ClinicStart: 05-25-2023 End: 54-31-5802uvdsunenjxIJ Sukh Amy Jose De Jesus Work Phone: [employer] Other Start: 05-25-2023 End: 37-94-2629Jenwltlgsl RecurringMD Sukh Dela Cruz Work Phone: [facility] Work Phone: Start: 00-37-7117Wfvtsmdvca RecurringMD Sukh Dela Cruz Work Phone: [facility]Di[facility] Work Phone: Start: 05-25-2023 End: 17-21-2897Bhcqeiu encounter procedureMD Sukh Jose De Jesus Work Phone: [facility]-Start: 05-12-2023 End: 43-81-7002vvkmhwubgeZvehbu Braun Other [employer] Other Start: 09-11-8464Moattaoey encounterMareduardo Abel [facility] ClinicStart: 05-10-2023 End: 86-82-5957opmebyghqpObrbya Braun Other [employer] Other Start: 90-01-5784Hyqlrrook encounterMareduardo Abel [facility] ClinicStart: 04-22-2023 End: 84-43-0862cunwhuwsjcLuvack Braun Other [employer] Other Start: 80-36-6321Evrlmgygp encounterMareduardo Abel [facility] ClinicStart: 04-20-2023 End: 31-07-7433cssnrhmaiaJywz Fitt Other [employer] Other Start: 84-58-5674Fmciztaxa encounterDawn [facility] ClinicStart: 04-18-2023 End: 03-71-1588rfnwyhyeyuZkuh Fitt Other [employer] Other Start: 95-95-7735Pxrkajtzm encounterDawn [facility] ClinicStart: 04-15-2023 End: 62-23-7431ryiiuzgqjpWevqga Braun Other [employer] Other Start: 23-17-7104Kamdct outpatient visit 15 minutes Sukh Jose De JesusSNEHA Abel [facility] ClinicStart: 04-15-2023 End: 80-51-5727Zmbikkz encounter procedureMD Sukh Dela Cruz Work Phone: [facility] Work Phone: Start: 04-06-2023 End: 09-34-3966zpybpjoqdoSanrvt Dela Cruz Other [facility] [employer] Other Start: 94-27-9996Bsawqmbst encounterMarcia [facility] Centertart: 02-25-2023 End: 87-95-7644bvuuqooyniUntgas Dela Cruz Other [facility] [employer] Other Start: 52-49-2511Eqpeymmks encounterMarcia [facility] Centertart: 10-29-2022 End: 88-05-9762llghjfjlrzDvyieu Dela Cruz Other [facility] [employer] Other Start: 84-59-9254Wkgmqyypw encounterMarcia [facility] Centertart: 08-27-2022 End: 97-82-1079pcuywphzbzIZ SUKH E BRAUNFacility:L4Gfbwa: 07-20-2022 End: 88-03-4479xoomiatfjkZP SUKH E BRAUNFacility:C7Dpqot: 07-19-2022 End: 83-65-9878cjzvwsptrgWqsupx Dela Cruz Other [facility] [employer] Other Start: 71-25-3283Wilbuqdpu encounterMarcia [facility] Centertart: 07-12-2022 End: 90-25-8272qmmkqmndopMF SUKH E BRAUNFacility:E7Gdyfq: 07-05-2022 End: 25-71-0307kaiosvbfscTqsepn Dela Cruz Other [employer] Other Start: 97-88-4877Ssfwuylls encounterMarcia [facility] Centertart: 06-28-2022 End: 16-35-2145uutpssiaotPnekkc Dela Cruz Other [employer] Other Start: 15-54-5972Bgiiohbwm encounterSukh Abel [facility] Hospitaltart: 06-22-2022 End: 10-14-7572vtgojqnxczJgzaiq Dela Cruz Other [employer] Other Start: 56-82-0868Zspsmh outpatient visit 15 minutes Sukh [facility] Hospitaltart: 05-27-2022 End: 38-98-3239rozxikyydiWgocqc Dela Cruz Other [employer] Other Start: 38-73-8279Zjbrrlzmi encounterSukh Giordano [facility] Hospitaltart: 05-19-2022 End: 70-74-4224sxvwbkhqwgWI SUKH DELA CRUZFacility:F0Vjsbo: 04-14-2022 End: 56-47-9994vrleayfnooRQLEA D PRAIRIE RIDGE HEALTHFacility:M9Pxsuh: 04-06-2022 End: 86-00-4245jcfaaptetmWI SUKH DELA CRUZFacility:X1Ljeri: 01-11-2022 End: 82-92-7118skeyahuulzUB MARCIA E BRAUNFacility:Z2Synsx: 11-05-2021 End: 07-55-1216ofwufythlbPX SHIRIN WOLFE .Facility:C6Ezaho: 10-16-2021 End: 16-90-2191vvgkeetgpuBS SUKH DELA CRUZFacility:D9Xsltz: 05-10-2017 End: 17-63-2372IpicoxobymOSMWUTP PHYSICIANFacility:[facility]ITALtart: 05-05-2017 End: 03-86-2383SxjzpwtwyfJNDGLCD PHYSICIANFacility:[facility] Procedures DateProcedureProcedure DetailPerforming ClinicianHistory of amputation of lesser toeH/O amputation of lesser toeSukh Dela Cruz MD Work Phone: Comment on above:left foot Plan of Treatment DateCare ActivityDetailAuthorStart: 11-50-0117Fmajnpzga vaccinationInfluenza VaccineProProvidence Hospitalca Health SystemStart: 90-86-6259Nvkjneowmuymrz of varicella zoster vaccineZoster (Shingles) Vaccine (1 of [address])[facility] SystemStart: 76-07-8697Okftokctw for malignant neoplasm of cervixPap SmearProLancaster Municipal Hospital SystemStart: 17-84-1161OFsX,Tdap and Td Vaccines (1 - Tdap)DTaP,Tdap and Td Vaccines (1 - Tdap)[facility] SystemStart: 45-38-7148Parao BMI Screening Adult BMI ScreeningProLancaster Municipal Hospital SystemStart: 07-16-3234Eqsoytjhtq Screening Depression ScreeningWilson Street Hospital SystemStart: 73-16-5398Ldvjiys Screening Tobacco ScreeningTrinity Health System [facility] CenterComprehensive metabolic 2000 panel - Serum or PlasmaAd[facility] Regional Medical CenterMG Breast - bilateral Screening [facility] Immunizations Immunization DateImmunizationNotesCare YnvgbjllYjainwat16-85-2112wioiveqnw virus vaccine, split virus (incl. purified surface antigen)Sukh Dela Cruz Other [place] [employer] Other [id number] virus vaccine, unspecified formulationMD Sukh Dela Cruz Work Phone: [facility] Payers DatePayer CategoryPayerPolicy [id number] H[employer] MEDICARE [id number] 2018MedicaidMEDICAID ID [id number] [id number] 2.0.1.504290.3.57[id number] 2.0.1.238128.3.57[id number] 2..1.060065.3.57[id number] 2.0.1.031839.3.57[id number] 2.0.1.692557.3.57[id number] 2..1.603937.3.57[id number] 2..1.106700.3.57[id number] 2.840.1.149932.3.57[id number] 2..1.992361.3.57[id number] 2.0.1.196073.3.579.2.1286 [id number] 2..[id number] [id number] 2..[id number] [id number] Social History DateTypeDetailFacilityUnknown if ever smokedNort [employer] Other Start: 95-20-1932Gus Assigned At BirthNort [employer] Other Start: 53-99-2953Ihq Assigned At BirthFeWVUMedicine Barnesville Hospitaltart: 07-19-2023 End: 05-01-9512Pfyhhtk smoking status NHISNever smoked tobacco (finding) [facility]: 05-24-2024 End: 92-13-4565FpzXqxjgf (finding)[facility]: 85-29-4755Isvuhuw use and exposureSmokeless tobacco non-userProProvidence HospitalWindar Photonics SystemStart: 83-07-0924Nwjtuamwy beverage intakeLifetime non-drinker (finding) [facility] HospitalMashery SystemStart: 14-57-0024Pwayhfn of Social functionProProvidence HospitalWindar Photonics SystemWithin the past 12 months we worried whether our food would run out before we got money to buy more.Never TrueProNiblitz SystemStart: 63-96-5429Vwp assigned at birthNot on fileSt. Albans HospitalNiblitz SystemNEGATED: Highlighted rowAdams County Regional Medical Center Medical Equipment Procedure CodeEquipment CodeEquipment Original TextEquipment IdentifierDatesPen Needle, Diabetic (Bd Ultra-Fine Mini Pen Needle) 31 gauge x 3/16 needleStart: 65-04-3271Sis Needle, Diabetic (Bd Ultra-Fine Mini Pen Needle) 31 gauge x 3/16 needleStart: 81-69-9946Hnv Needle, Diabetic (Bd Ultra-Fine Mini Pen Needle) 31 gauge x 3/16 needleStart: 46-84-4232Knh Needle, Diabetic (Bd Ultra-Fine Mini Pen Needle) 31 gauge x 3/16 needleStart: 07-28-2023 End: 12-71-5670Ryv Needle, Diabetic (Bd Ultra-Fine Mini Pen Needle) 31 gauge x 3/16 needleStart: 82-72-5311Bzp Needle, Diabetic (Bd Ultra-Fine Mini Pen Needle) 31 gauge x 3/16 needleStart: 07-28-2023 End: 09-38-8882Zub Needle, Diabetic (Bd Ultra-Fine Mini Pen Needle) 31 gauge x 3/16 needleStart: 74-90-6864Qrn Needle, Diabetic (Bd Ultra-Fine Mini Pen Needle) 31 gauge x 3/16 needleStart: 07-28-2023 End: 84-80-1810Fti Needle, Diabetic (Bd Ultra-Fine Mini Pen Needle) 31 gauge x 3/16 needleStart: 91-65-5789Wxp Needle, Diabetic (Bd Ultra-Fine Mini Pen Needle) 31 gauge x 3/16 needleStart: 07-28-2023 End: 11-02-0236Ewp Needle, Diabetic (Bd Ultra-Fine Mini Pen Needle) 31 gauge x 3/16 needleStart: 75-76-7747Rqr Needle, Diabetic (Bd Ultra-Fine Mini Pen Needle) 31 gauge x 3/16 needleStart: 07-28-2023 End: 27-11-2742Yvs Needle, Diabetic (Bd Ultra-Fine Mini Pen Needle) 31 gauge x 3/16 needleStart: 24-88-8609Fbr Needle, Diabetic (Bd Ultra-Fine Mini Pen Needle) 31 gauge x 3/16 needleStart: 07-28-2023 End: 87-93-7142Nzsrn Sugar Diagnostic (Onet[employer] Verio Test Strips) stripStart: 93-54-2421EpoxhgeCtrdo: 18-34-1742Sdt Needle, Diabetic (Bd Ultra-Fine Mini Pen Needle) 31 gauge x 3/16 needleStart: 33-00-4586Cstuj Sugar Diagnostic ([employer] Verio Test Strips) stripStart: 12-23-2023 End: 11-37-2391YkcbgatYnbzq: 12-23-2023 End: 45-01-6580Ptc Needle, Diabetic (Bd Ultra-Fine Mini Pen Needle) 31 gauge x 3/16 needleStart: 07-28-2023 End: 77-84-7049Ofami Sugar Diagnostic ([employer] Verio Test Strips) stripStart: 17-21-9141InrfqggUmigt: 72-28-4202Ijo Needle, Diabetic (Bd Ultra-Fine Mini Pen Needle) 31 gauge x 3/16 needleStart: 11-65-6022Rzter Sugar Diagnostic (Onetouch Verio Test Strips) stripStart: 12-23-2023 End: 89-89-3318OhteblvHaess: 12-23-2023 End: 80-90-5599Gam Needle, Diabetic (Bd Ultra-Fine Mini Pen Needle) 31 gauge x 3/16 needleStart: 07-28-2023 End: 53-33-8928Uvpwg Sugar Diagnostic (Onetouch Verio Test Strips) stripStart: 56-60-8124CdezmpgUkuae: 21-54-6265Zmx Needle, Diabetic (Bd Ultra-Fine Mini Pen Needle) 31 gauge x 3/16 needleStart: 03-22-1926Aqerw Sugar Diagnostic (On[employer] Verio Test Strips) stripStart: 12-23-2023 End: 48-43-8445XqzddlfLhbgz: 12-23-2023 End: 19-13-2038Fog Needle, Diabetic (Bd Ultra-Fine Mini Pen Needle) 31 gauge x 3/16 needleStart: 07-28-2023 End: 82-72-9027Ojodj Sugar Diagnostic (Onetouch Verio Test Strips) stripStart: 70-87-6811Tjknfhq miscStart: 22-23-9553Euf Needle, Diabetic (Bd Ultra-Fine Mini Pen Needle) 31 gauge x 3/16 needleStart: 18-44-4384Vlypn Sugar Diagnostic ([employer] Verio Test Strips) stripStart: 12-23-2023 End: 04-84-9367Zphdpax miscStart: 12-23-2023 End: 83-83-4828Xyv Needle, Diabetic (Bd Ultra-Fine Mini Pen Needle) 31 gauge x 3/16 needleStart: 07-28-2023 End: 75-17-4287Yzazn Sugar Diagnostic (Onetouch Verio Test Strips) stripStart: 63-54-0249Emgbsas miscStart: 18-36-4857Jvs Needle, Diabetic (Bd Ultra-Fine Mini Pen Needle) 31 gauge x 3/16 needleStart: 73-87-9799Vlhch Sugar Diagnostic (Onetouch Verio Test Strips) stripStart: 12-23-2023 End: 14-73-6644Fmuhtjr miscStart: 12-23-2023 End: 06-56-0457Qwn Needle, Diabetic (Bd Ultra-Fine Mini Pen Needle) 31 gauge x 3/16 needleStart: 07-28-2023 End: 73-30-3622Deivi Sugar Diagnostic (Onetouch Verio Test Strips) stripStart: 84-20-7966Wcyszez miscStart: 77-28-0618Efl Needle, Diabetic (Bd Ultra-Fine Mini Pen Needle) 31 gauge x 3/16 needleStart: 26-92-0767Tiiuq Sugar Diagnostic (Onetouch Verio Test Strips) stripStart: 12-23-2023 End: 93-98-3104Cvmhkfk miscStart: 12-23-2023 End: 96-28-8213Has Needle, Diabetic (Bd Ultra-Fine Mini Pen Needle) 31 gauge x 3/16 needleStart: 07-28-2023 End: 53-06-8532Iazzh Sugar Diagnostic (Onetouch Verio Test Strips) stripStart: 90-62-9628Mybhbxp miscStart: 97-23-0586Aws Needle, Diabetic 31 gauge x 3/16 needleStart: 19-20-2511Zaoeq Sugar Diagnostic ([employer] Verio Test Strips) strip Start: 12-23-2023 End: 48-09-8177Vfcrlgb miscStart: 12-23-2023 End: 49-14-8053Orz Needle, Diabetic (Bd Ultra-Fine Mini Pen Needle) 31 gauge x 3/16 needleStart: 08-23-2023 End: 20-75-8065Cbe Needle, Diabetic (Bd Ultra-Fine Mini Pen Needle) 31 gauge x 3/16 needleStart: 07-28-2023 End: 42-33-5882Bjule Sugar Diagnostic (Onetouch Verio Test Strips) stripStart: 71-41-7173Omjimen miscStart: 59-01-3148Ccr Needle, Diabetic 31 gauge x 3/16 needleStart: 03-27-0513Cztxn Sugar Diagnostic (Onetouch Verio Test Strips) strip Start: 12-23-2023 End: 63-14-4029Grqpyex miscStart: 12-23-2023 End: 63-40-1642Uzc Needle, Diabetic (Bd Ultra-Fine Mini Pen Needle) 31 gauge x 3/16 needleStart: 08-23-2023 End: 06-96-3195Kch Needle, Diabetic (Bd Ultra-Fine Mini Pen Needle) 31 gauge x 3/16 needleStart: 07-28-2023 End: 54-24-2426Trywm Sugar Diagnostic (Onetouch Verio Test Strips) stripStart: 59-71-0745Besrwue miscStart: 62-83-3187Lyw Needle, Diabetic 31 gauge x 3/16 needleStart: 41-00-5466Abxoq Sugar Diagnostic (Onetouch Verio Test Strips) strip Start: 12-23-2023 End: 23-85-0400Nfwrxoq miscStart: 12-23-2023 End: 03-61-9437Kmf Needle, Diabetic (Bd Ultra-Fine Mini Pen Needle) 31 gauge x 3/16 needleStart: 08-23-2023 End: 76-61-4815Cby Needle, Diabetic (Bd Ultra-Fine Mini Pen Needle) 31 gauge x 3/16 needleStart: 07-28-2023 End: 08-23-2023 Clinical Notes 01-11-2022 to 06-19-2024 Note Date & [id number] NoteCardiology Clinic Note Patient here for 1.5 year follow up CAD, hypertension, and hyperlipidemia. She also needs cleared for toe amputation. This is scheduled for 06/21/[address] Sanchez at [facility]. She had EKG, CXR, and [...] This is scheduled for 06/21/[address] Sanchez at [facility]. She had EKG, CXR, and [...] Active Problem List Diagnosis Coronary arteriosclerosis in [place] artery Old myocardial infarction Sinusitis Type 1 [...] IVC is normal sized. (more content not included)...[facility]02-13-2025 Evaluation + Plan note* Assessment & Plan Note - Nacho Patiño MD - 06/14/2024 11:11 AM ESTAssociated Problem(s): Gangrene of toe of left foot ([facility]) Osteomyelitis and gangrenous changes of the left second and third and may be the fourth toe.She hasnormal PVR with toe pressure and normal HIEU and toe pressure index.I discussed with her that there is no VASc intervention needed at this time. She needs his aggressive blood sugar control IV antibiotics likely toe amputation by podiatry and risk factors modification. [facility]02-13-2025 Miscellaneous Notes* Assessment & Plan Note - Nacho Patiño MD - 06/14/2024 11:11 AM ESTAssociated Problem(s): Gangrene of toe of left foot ([facility]) Osteomyelitis and gangrenous changes of [...] and risk factors modification. [facility] History of Present illness Narrative* Nacho Patiño MD - 06/14/2024 10:10 AM EST Images from the original note were not included. To: No primary care provider on file. HPI: Zoila Ramos is a 54 y.o. female with Osteomyelitis of the second and third toes under the care ofpodiatry. She was sent to us for vascular [...] nasal spray Administer 2 sprays into each nostrilin the morning. glipiZIDE (GLUCOTROL) 10 mg tablet Take 1 tablet (10 mg total) by mouth in the morning and 1 tablet(10 mg total) in the evening. Take before meals. losartan (COZAAR) 25 mg tablet Take 1 tablet (25 mg total) by mouth in the morning and 1 tablet (25mg total) before bedtime. metFORMIN (GLUCOPHAGE) 1000 mg [...] Past Medical History: Diagnosis Date Diabetes mellitus ([facility]) Past Surgical History: No past surgical history [...] Interpersonal Safety: Unknown (06/23/2023) Received from [facility] Safety & Environment Fear of [...] List Gangrene of toe of left foot ([facility]) - Primary Current Assessment & Plan Osteomyelitis [...] visit: Gangrene of toe of left foot ([facility]) Nacho Patiño MD, SELMA, RPVI, FSVS, FACS [facility] This note was created with the assistance of a speech recognition program. While intending to generate a timely document that accurately reflects the content of the visit, no guarantee can be provided that every grammatical or spelling mistake has been or will be identified or corrected. Thank you for your understanding. documented in this encounterTr[facility] Evaluation note* Diagnosis Onset Date Resolution Status Admit Date Colon cancer screening acuteJanuary 2024 10:42amLong-term insulin useacuteJanuary 2024 10:42amType 2 diabetes mellitusacuteJanuary 2024 10:42amWellness examinationacuteJanuary 2024 10:42amBMI 37.0-37.9, adultacuteApril 2024 1:05pmDietary counseling and surveillanceacuteApril 2024 1:05pmHistory of myocardial infarctionacuteApril 2024 1:05pmHTN (hypertension)acuteApril 2024 1:05pmHyperlipidemiaacuteApril 2024 1:05pmLong-term insulin use acuteApril 2024 1:05pmType 2 diabetes mellitusacuteApril 2024 1:05pm Vitamin D deficiencyacuteApril 2024 1:05pm [facility] Work Phone: 1(331) 828-592901-23-2025 Evaluation note* Diagnosis Onset Date Resolution Status Admit Date Type 2 diabetes mellitus acuteJanuary 2024 12:54pmColon cancer screeningacuteJanuary 2024 10:42amLong-term insulin useacuteJanuary 2024 10:42amType 2 diabetes mellitusacuteJanuary 2024 10:42amWellness examinationacuteJanuary 2024 10:42amBMI 37.0-37.9, adultacuteApril 2024 1:05pmDietary counseling and surveillanceacuteApril 2024 1:05pmHistory of myocardial infarctionacute August 07, 2024 1:05pmHTN (hypertension)acuteApril 2024 1:05pm HyperlipidemiaacuteApr2024 1:05pmLong-term insulin useacuteApril 2024 1:05pmType 2 diabetes mellitusacuteApril 2024 1:05pmVitamin D deficiencyacuteApr2024 1:05pm [facility] Work Phone: 1(125) 754-700012-19-2024 Evaluation note* Diagnosis Onset Date Resolution Status Admit Date Type 2 diabetes mellitus acuteDecember 2023 2:03pm [facility] Work Phone: 1(212) 916-784012-19-2024 Evaluation note* Diagnosis Onset Date Resolution Status Admit Date Type 2 diabetes mellitus acuteDecember 2023 2:03pmType 2 diabetes mellitusacuteJanuary 2024 12:54pm [facility] Work Phone: 1(426) 499-791512-19-2024 Evaluation note* Diagnosis Onset Date Resolution Status Admit Date Type 2 diabetes mellitus acuteDecember 2023 2:03pmType 2 diabetes mellitusacuteJanuary 2024 12:54pmColon cancer screeningacuteJanuary 2024 10:42amLong-term insulin useacuteMayuary 2024 10:42amType 2 diabetes mellitusacuteJanuary 2024 10:42amWellness examinationacuteJanuary 2024 10:42am [facility] Work Phone: 1(608) 851-453102-05-2024 Evaluation note* Encounter Date Diagnosis Assessment Notes Treatment Notes Treatment Clinical Notes Jun, Controlled type 2 di abetes mellitus with hyperglycemia, unspecified whether nursing home insulin use (ICD-10 - E11.65) [facility] Other 01-24-2024 Evaluation note* Encounter Date Diagnosis Assessment Notes Treatment Notes Treatment Clinical Notes May, Type 2 diabetes mellitus with hy perglycemia (ICD-10 - E11.65) ASSESSMENT: 1. Uncontrolled, a [...] easily identify amounts of insulin for each scenario.We did review signs and symptoms of hypoglycemia.Will [...] return to clinic in 10 days for downloadand further optimization. Follow-up with provider in 8 [...] diabetes, progressive beta cell , concepts of basal/bolus/corrective insulin requirements. Basal: The goal is fasting [...] or sores that do not appear to behealing. 4. Meter: Plan to check blood glucose: [...] 6. Prescriptions: New patient 05-25-2023 uses [facility]. May,Vitamin D deficiency (ICD-10 - E55.9)Learning About Vitamin D material was published to portal May,ietary counseling and surveillance (ICD-10 - Z71.3)Learning About Healthy Weight material was published to portal May,Hyperlipidemia (ICD-10 - E78.5)Learning About High Cholesterol material was published to portal May,HTN (hypertension) (ICD-10 - I10)High Blood Pressure: Care Instructions material was published to portal May,Long term current use of insulin (ICD-10 - Z79.4) May,MI 37.0-37.9, adult (ICD-10 - Z68.37) May,Other05/25/2023 The patient was given a Dexcom G7 sensor sample and an [employer] Loaner Anselmo. She was taught how to use the [...] spent educating the patient by Nguyễn Norwood RN,[facility]. [employer] Other 12-15-2023 Evaluation note* Encounter Date Diagnosis Assessment Notes Treatment Notes Treatment Clinical Notes Apr, Type 2 diabetes mellitus with hy perglycemia (ICD-10 - E11.65) Rx handwritten for diabetic shoes. Pt agrees to referral to specialty clinic. Continue present medsand discussed healthy diet in meantime. Apr,Long term (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 of insulin (ICD-10 - Z79.4) [employer] Other 02-21-2023 Evaluation note* Encounter Date Diagnosis Assessment Notes Treatment Notes Treatment Clinical Notes Jun, Acute non-recurrent maxillary si nusitis (ICD-10 - J01.00) Jun,ontrolled type 2 diabetes mellitus with hyperglycemia, unspecified whether nursing home insulin use (ICD-10 - E11.65)Once again advised management at diabetes clinic. She declines and will continue meds, followup in 3 months, and recheck labs at that time. She is eating more of a keto diet and is certain that is helping her A1C improve. Jun,Screening mammogram for breast cancer (ICD-10 - Z12.31)Zoila will call for an appt [employer] Other 12-15-2022 NotePROCEDURE: XR FOOT LT MIN [...] Mild degenerative joint disease. Electronically authenticated by: COLTEN TIRADO Date: 2022-04-15 06:08[facility]09-12-2022 NotePROCEDURE: XR TOES RT MIN 2 V HISTORY: Pain of toe of right foot ; first toe pain following injury COMPARISON: None. FINDINGS: BONES:No fracture, acute abnormality, or significant arthropathy. SOFT TISSUES:No visible soft tissue swelling. EFFUSION:None visible. OTHER: Negative. IMPRESSION: 1. No acute bone abnormality. 2. Mild degenerative joint disease. Electronically authenticated by: COLTEN TIRADO Date: 2022-01-11 18:48[facility]+Reason for visit Narrative* Chief Complaint 3 Month Follow Up Referral Dr. Negro LAGUERRE download [facility] Work Phone: chief complaint+Reason for visit Narrative* Chief Complaint 3 Month Follow Up Referral Dr. Negro LAGUERRE downloadReason for VisitType 2 diabetes mellitus [facility] Work Phone: chief complaint+Reason for visit Narrative* Chief Complaint Referral Dr. Negro LAGUERRE download 3 Month Check upReason for VisitType 2 diabetes mellitus [facility] Work Phone: chief complaint+Reason for visit Narrative* Chief Complaint Referral Dr. Negro LAGUERRE download 3 Month 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Reason for VisitType 2 diabetes mellitus Right wrist fracture Type 2 diabetes mellitus [facility] Work Phone: chief complaint+Reason for visit Narrative* Chief Complaint Referral Dr. Negro LAGUERRE download 3 Month 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 Gastroesophageal reflux disease (GERD)Reason for VisitType 2 diabetes mellitus Right wrist fracture Type 2 diabetes mellitus BMI 37.0-37.9, adult Dietary counseling and surveillance History of myocardial infarction HTN (hypertension) Hyperlipidemia Long-term insulin use Type 2 diabetes mellitus Vitamin D deficiency Gastroesophageal reflux disease [facility] Work Phone: Evaluation noteNo [facility] Other Evaluation noteNo assessment information available [facility] Work Phone: Evaluation note* Diagnosis Onset Date Resolution Status Type 2 diabetes mellitus acute [facility] Work Phone: Evaluation note* Diagnosis Onset Date Resolution Status Type 2 diabetes mellitus acuteRight wrist fractureacuteType 2 diabetes mellitusacute [facility] Work Phone: Evaluation note* Diagnosis Onset Date Resolution Status Type 2 diabetes mellitus acuteRight wrist fractureacuteType 2 diabetes mellitusacuteBMI 37.0-37.9, adult acuteDietary counseling and surveillanceacuteHistory of myocardial infarction acuteHTN (hypertension)acuteHyperlipidemiaacuteLong-term insulin useacuteType 2 diabetes mellitusacuteVitamin D deficiencyacuteGastroesophageal reflux disease acute [facility] Work Phone: Evaluation note* Diagnosis Onset Date Resolution Status Type 2 diabetes mellitus acuteRight wrist fractureacuteType 2 diabetes mellitusacuteBMI 37.0-37.9, adult acuteDietary counseling and surveillanceacuteHistory of myocardial infarction acuteHTN (hypertension)acuteHyperlipidemiaacuteLong-term insulin useacuteType 2 diabetes mellitusacuteVitamin D deficiencyacuteGastroesophageal reflux disease acuteType 2 diabetes mellitusacute [facility] Work Phone: Evaluation note* Diagnosis Onset Date Resolution Status Right wrist fracture acuteType 2 diabetes mellitusacuteBMI 37.0-37.9, adultacuteDietary counseling and surveillanceacuteHistory of myocardial infarctionacuteHTN (hypertension) acuteHyperlipidemiaacuteLong-term insulin useacuteType 2 diabetes mellitusacute Vitamin D deficiencyacuteGastroesophageal reflux diseaseacuteType 2 diabetes mellitusacuteGastroesophageal reflux diseaseacuteRight ankle painacuteType 2 diabetes mellitusacute [facility] Work Phone: Evaluation note* Diagnosis Onset Date Resolution Status Gastroesophageal reflux disease acuteType 2 diabetes mellitusacuteGastroesophageal reflux diseaseacuteRight ankle painacuteType 2 diabetes mellitusacuteBMI 37.0-37.9, adultacuteDietary counseling and surveillanceacuteHistory of myocardial infarctionacuteHTN (hypertension)acuteHyperlipidemiaacuteLong-term insulin useacuteType 2 diabetes mellitusacuteVitamin D deficiencyacuteType 2 diabetes mellitusacute [facility] Work Phone: Evaluation note* Diagnosis Onset Date Resolution Status Gastroesophageal reflux disease acuteRight ankle painacuteType 2 diabetes mellitusacuteBMI 37.0-37.9, adultacute Dietary counseling and surveillanceacuteHistory of myocardial infarctionacuteHTN (hypertension)acuteHyperlipidemiaacuteLong-term insulin useacuteType 2 diabetes mellitusacuteVitamin D deficiencyacuteType 2 diabetes mellitusacuteScreening mammogram for breast canceracute [facility] Work Phone: Evaluation note* Diagnosis Onset Date Resolution Status BMI 37.0-37.9, adult acuteDietary counseling and surveillanceacuteHistory of myocardial infarction acuteHTN (hypertension)acuteHyperlipidemiaacuteLong-term insulin useacuteType 2 diabetes mellitusacuteVitamin D deficiencyacuteType 2 diabetes mellitusacute Gastroesophageal reflux diseaseacuteScreening mammogram for breast canceracute Type 2 diabetes mellitusacuteBMI 37.0-37.9, adultacuteDietary counseling and surveillanceacuteHistory of myocardial infarctionacuteHTN (hypertension)acute HyperlipidemiaacuteLong-term insulin useacuteType 2 diabetes mellitusacute Vitamin D deficiencyacute [facility] Work Phone: Evaluation note* Diagnosis Onset Date Resolution Status Type 2 diabetes mellitus acuteGastroesophageal reflux diseaseacuteScreening mammogram for breast cancer acuteType 2 diabetes mellitusacuteBMI 37.0-37.9, adultacuteDietary counseling and surveillanceacuteHistory of myocardial infarctionacuteHTN (hypertension) acuteHyperlipidemiaacuteLong-term insulin useacuteType 2 diabetes mellitusacute Vitamin D deficiencyacuteType 2 diabetes mellitusacute [facility] Work Phone: Evaluation note* Diagnosis Onset Date Resolution Status Gastroesophageal reflux disease acuteScreening mammogram for breast canceracuteType 2 diabetes mellitusacuteBMI 37.0-37.9, adultacuteDietary counseling and surveillanceacuteHistory of myocardial infarctionacuteHTN (hypertension)acuteHyperlipidemiaacuteLong-term insulin useacuteType 2 diabetes mellitusacuteVitamin D deficiencyacuteType 2 diabetes mellitusacuteBMI 37.0-37.9, adultacuteDietary counseling and surveillanceacuteHistory of myocardial infarctionacuteHTN (hypertension)acute HyperlipidemiaacuteLong-term insulin useacuteType 2 diabetes mellitusacute Vitamin D deficiencyacute [facility] Work Phone: Evaluation note* Diagnosis Gangrene of toe of left foot ([facility] Primary [facility] Diagnosis Onset Date Resolution Status Admit Date BMI 37.0-37.9, adult acuteAugust 2024 12:40pmDietary counseling and surveillanceacuteAugust 2024 12:40pmHistory of myocardial infarctionacuteAugust 2024 12:40pm HTN (hypertension)acuteAugust 2024 12:40pmHyperlipidemiaacuteAugust 2024 12:40pmLong-term insulin useacuteAugust 2024 12:40pmType 2 diabetes mellitusacuteAugust 2024 12:40pmVitamin D deficiencyacuteAugust 2024 12:40pm [facility] Work Phone: Hiszsxk general Narrative - Reported* Type Description Date Medical History Herpes labialis Medical HistoryCandidiasis of mouthMedical HistoryType 2 diabetes mellitus with diabetic polyneuropathy, unspecified whether emt intermediate insulin useMedical HistoryControlled type 2 diabetes mellitus with hyperglycemia, unspecified whether nursing home insulin useMedical HistoryObesityMedical HistoryDyslipidemia Medical HistoryCAD in [place] arteryMedical HistoryAsthma, intermittentMedical HistoryGastroesophageal reflux diseaseMedical HistoryAcquired deformities of toe(s), unspecified, right footMedical HistoryAcquired deformity of left toe Medical HistoryLeft shoulder painMedical HistoryBack pain, thoracicMedical HistoryPain of left footMedical HistoryToe pain, rightMedical History HypertensionSurgical Historyright shoulder arthroscopySurgical History cholecystectomySurgical HistoryappendectomySurgical History7 [id number] Style on Screen Other History general Narrative - Reported* Type Description Date Medical History Herpes labialis Medical HistoryCandidiasis of mouthMedical HistoryType 2 diabetes mellitus with diabetic polyneuropathy, unspecified whether nursing home insulin useMedical HistoryControlled type 2 diabetes mellitus with hyperglycemia, unspecified whether emt intermediate insulin useMedical HistoryObesityMedical HistoryDyslipidemia Medical HistoryCAD in [place] arteryMedical HistoryAsthma, intermittentMedical HistoryGastroesophageal reflux diseaseMedical HistoryAcquired deformities of toe(s), unspecified, right footMedical HistoryAcquired deformity of left toe Medical HistoryLeft shoulder painMedical HistoryBack pain, thoracicMedical HistoryPain of left footMedical HistoryToe pain, rightMedical History HypertensionSurgical Historyright shoulder arthroscopySurgical History cholecystectomySurgical HistoryappendectomySurgical History7 [id number] Hospitalization Historysee surgical history Style on Screen Other History general Narrative - Reported* Type Description Date Medical History Herpes labialis Medical HistoryCandidiasis of mouthMedical HistoryType 2 diabetes mellitus with diabetic polyneuropathy, unspecified whether emt intermediate insulin useMedical HistoryControlled type 2 diabetes mellitus with hyperglycemia, unspecified whether emt intermediate insulin useMedical HistoryObesityMedical HistoryDyslipidemia Medical HistoryCAD in [place] arteryMedical HistoryAsthma, intermittentMedical HistoryGastroesophageal reflux diseaseMedical HistoryAcquired deformities of toe(s), unspecified, right footMedical HistoryAcquired deformity of left toe Medical HistoryLeft shoulder painMedical HistoryBack pain, thoracicMedical HistoryPain of left footMedical HistoryToe pain, rightMedical History HypertensionMedical HistoryRight writ fracture 05-26-4400Dfbbofxt Historyright shoulder arthroscopySurgical HistorycholecystectomySurgical Historyappendectomy Surgical History7 stents, [id number] Historysee surgical history Style on Screen Other InstructionsNot on filedocumented in this encounter [facility] CenterReason for referral (narrative)No reason for referral information availableDayton Va Medical Center Work Phone: Summary Purpose Family History Relationship Condition Age at Onset Recorded Date/T matt father Diabetes mellitus Unknown Heart diseaseUnknownDeceasedUnknownfamily memberFamily history of other conditionUnknownNot SpecifiedDeceasedUnknownDiabetes mellitusUnknown Relationship Condition Age at Onset Recorded Date/T matt father Diabetes mellitus Unknown Heart diseaseUnknownDeceasedUnknownfamily memberFamily history of other conditionUnknownmotherDeceasedUnknownDiabetes mellitusUnknown Advance Directives Advance Directive Response Recorded Date/ [...] itus with hyperglycemia (E11.65) Referral Organization [facility] Referring Provider First Name Sukh Referring Provider Last Name Jose De Jesus Referring Provider Specialty [facility] Referred Organization [facility] Referred Provider Marcia Mendes Referred Address [address],[place], [place],[address] Referred Provider Specialty Nurse Huey saldaña Referral Priority Routine General Notes Heather Jenkins 01:25:59 PM >received today, notes locked, insurance attached, referral faxed Chief Complaint and Reason for Visit Chief Complaint download 3 Month 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 Gastroesophageal reflux disease (GERD) 4 week DL per DS/ libreReason for VisitType 2 diabetes mellitus Right wrist fracture Type 2 diabetes mellitus BMI 37.0-37.9, adult Dietary counseling and surveillance History of myocardial infarction HTN (hypertension) Hyperlipidemia Long-term insulin use Type 2 diabetes mellitus Vitamin D deficiency Gastroesophageal reflux disease Type 2 diabetes mellitus Chief Complaint download 3 Month 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 Gastroesophageal reflux disease (GERD) 4 week DL per DS/ carmine follow upReason for VisitType 2 diabetes mellitus Right wrist fracture Type 2 diabetes mellitus BMI 37.0-37.9, adult Dietary counseling and surveillance History of myocardial infarction HTN (hypertension) Hyperlipidemia Long-term insulin use Type 2 diabetes mellitus Vitamin D deficiency Gastroesophageal reflux disease Type 2 diabetes mellitus Chief Complaint 3 Month 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 Gastroesophageal reflux disease (GERD) 4 week DL per DS/ carmine follow up DMN f/u / carmine readerReason for VisitRight wrist fracture Type 2 diabetes mellitus BMI 37.0-37.9, adult Dietary counseling and surveillance History of myocardial infarction HTN (hypertension) Hyperlipidemia Long-term insulin use Type 2 diabetes mellitus Vitamin D deficiency Gastroesophageal reflux disease Type 2 diabetes mellitus Gastroesophageal reflux disease Right ankle pain Type 2 diabetes mellitus Chief Complaint Gastroesophageal ref lux disease (GERD) 4 week DL per DS/ carmine follow up DMN f/u / carmine reader DL 5 weekReason for VisitGastroesophageal reflux disease Type 2 diabetes mellitus Gastroesophageal reflux disease Right ankle pain Type 2 diabetes mellitus BMI 37.0-37.9, adult Dietary counseling and surveillance History of myocardial infarction HTN (hypertension) Hyperlipidemia Long-term insulin use Type 2 diabetes mellitus Vitamin D deficiency Type 2 diabetes mellitus Chief Complaint follow up DMN f/u / carmine reader DL 5 week 3 month f/uReason for VisitGastroesophageal reflux disease Right ankle pain Type 2 diabetes mellitus BMI 37.0-37.9, adult Dietary counseling and surveillance History of myocardial infarction HTN (hypertension) Hyperlipidemia Long-term insulin use Type 2 diabetes mellitus Vitamin D deficiency Type 2 diabetes mellitus Screening mammogram for breast cancer Chief Complaint DMN f/u / carmine read er DL 5 week 3 month f/u 10 week f/u DMN f/uReason for VisitBMI 37.0-37.9, adult Dietary counseling and surveillance History [...] f/u 10 week f/u DMN f/u 5 weekReason for VisitType 2 diabetes mellitus Gastroesophageal reflux disease Screening mammogram for breast cancer Type 2 diabetes mellitus BMI 37.0-37.9, adult Dietary counseling and surveillance History of myocardial infarction HTN (hypertension) Hyperlipidemia Long-term insulin use Type 2 diabetes mellitus Vitamin D deficiency Type 2 diabetes mellitus Chief Complaint 3 month f/u 10 week f/u DMN f/u 5 week 10 week f/u-DMN f/u /dexcom on phoneReason for VisitGastroesophageal reflux disease Screening mammogram for breast cancer [...] phone Vitamin D deficiency Hyperlipidemia Type 2 diabeteReason for Visit Gastroesophageal reflux disease Screening mammogram for breast [...] and content) DATE CREATED AUTHOR 10/25/2017 [facility] DATE CREATED AUTHOR AUTHOR'S ORGANIZ ATION 09/03/2022 [facility] [facility] DATE CREATED AUTHOR AUTHOR'S ORGANIZ ATION 06/16/2024 [facility] DATE CREATED AUTHOR AUTHOR'S ORGANIZ ATION 06/30/2024 [facility] DATE CREATED AUTHOR AUTHOR'S ORGANIZ ATION 07/13/2024 [facility] REASON FOR VISIT (unrecogniz ed section and content) ReasonCommentsleft 2nd, 3rd, 4th toes discolored, painfulPain improved from yesterday Care Teams (unrecognized sec tion and content) Team Status: Active Member Role Status Dates Sukh Dela Cruz MD Primary Care Provider Active Team Status: Inactive Member Role Status Dates PHYSICIAN NO FAMILY Primary Care Provider Active Start: May 30, 2024 End: May 30, 2024uSkh Dela Cruz MDAttending ProviderActiveStart: May 30, 2024 End: May 30, 2024 Team Status: Active Member Role Status Dates PHYSICIAN NO FAMILY Primary Care Provider Active Start: June 01, 2024 SHAY San-CAttending ProviderActiveStart: June 01, 2024 Team Status: Active Member Role Status Dates PHYSICIAN NO FAMILY Primary Care Provider Active Start: June 07, 2024 Ashanti Ashraf ProviderActiveStart: June 07, 2024 Team Status: Active Member Role Status Dates PHYSICIAN NO FAMILY Primary Care Provider Active Start: June 12, 2024 Cathie Vargas , Timothy ProviderActiveStart: June 12, 2024 Team Status: Active Member Role Status Dates PHYSICIAN NO FAMILY Primary Care Provider Active Start: June 13, 2024 Brittney Drummond CMAAttending ProviderActiveStart: June 13, 2024 Team Status: Active Member Role Status Dates PHYSICIAN NO FAMILY Primary Care Provider Active Start: June 19, 2024 Jordyn Sanchez DPM MSAttending ProviderActiveStart: June 19, 2024 Team Status: Active Member Role Status Dates PHYSICIAN NO FAMILY Primary Care Provider Active Start: June 20, 2024 Husam Abel DOAttending ProviderActiveStart: June 20, 2024 Team Status: Active Member Role Status Dates PHYSICIAN NO FAMILY Primary Care Provider Active Start: June 21, 2024 Brittney Drummond CMAAttending ProviderActiveStart: June 21, 2024 Team Status: Inactive Member Role Status Dates Sukh Dela Cruz MD Primary Care Provider Active Start: July 05, 2024 End: July 05, 2024Jordyn Sanchez DPM MSAttending ProviderActiveStart: July 05, 2024 End: July 05, 2024 Team Status: Active Member Role Status Dates Sukh Dela Cruz MD Primary Care Provider Active Start: July 19, 2024 Alfredo Carpenterending ProviderActiveStart: July 19, 2024 Team Status: Inactive Member Role Status Dates Sukh Dela Cruz MD Primary Care Provider Active Start: August 07, 2024 End: August 07, 2024Timothy Mcmillan ProviderActiveStart: August 07, 2024 End: August 07, 2024 Team Status: Active Member Role Status Dates Sukh Dela Cruz MD Primary Care Provider Active Start: August 20, 2024 Brittney Drummond CMAAttending ProviderActiveStart: August 20, 2024 Team Status: Inactive Member Role Status Dates Sukh Dela Cruz MD Primary Care Provide r, Attending Provider Active Start: August 23, 2024 End: August 23, 2024 Team Status: Active Member Role Status Dates PHYSICIAN NO FAMILY Primary Care Provider Active Start: May 16, 2024 Jordyn Sanchez DPM MSAttending ProviderActiveStart: May 16, 2024 Team Status: Inactive Member Role Status Dates PHYSICIAN NO FAMILY Primary Care Provider Active Start: May 24, 2024 End: May 24, 2024Curtis Norwood RNAttending ProviderActiveStart: May 24, 2024 End: May 24, 2024Deborsophie C Scally , APRNActiveStart: May 24, 2024 End: May 24, 2024 Team Status: Active Member Role Status Dates PHYSICIAN NO FAMILY Primary Care Provider Active Team Status: Inactive Member Role Status Dates Brittani Collier RN Attending Provider Active Start: April 19, 2024 End: April 19eboralos C Scally , APRNActiveStart: April 19, 2024 End: April 19HYSICIAN NO FAMILYPrimary Care ProviderActiveStart: April 19, 2024 End: April 19, 2024 Team Status: Active Member Role Status Dates PHYSICIAN NO FAMILY Primary Care Provider Active Start: May 07, 2024 Brittney Drummond CMAAttending ProviderActiveStart: May 07, 2024 Team Status: Inactive Member Role Status Dates Sukh Dela Cruz MD Primary Care Provide r, Attending Provider Active Start: August 19, 2023 End: August 19, 2023 Team Status: Inactive Member Role Status Dates Sukh Dela Cruz MD Primary Care Provider Active Start: August 24, 2023 End: August 23CAYETANO Devlinttending ProviderActiveStart: August 24, 2023 End: August 23eborah C Scally , APRNActiveStart: August 24, 2023 End: August 24, 2023 Team Status: Inactive Member Role Status Dates Sukh Dela Cruz MD Primary Care Provide r, Attending Provider Active Start: September 06, 2023 End: September 06, 2023 Team Status: Inactive Member Role Status Dates Sukh Dela Cruz MD Primary Care Provider Active Start: September 29, 2023 End: September 28eborah C Scally , APRNAttending ProviderActiveStart: September 29, 2023 End: September 29, 2023 Team Status: Inactive Member Role Status Dates Sukh Dela Cruz MD Primary Care Provider Active Start: November 07, 2023 End: November 07, 2023Curtis Norwood RNAttending ProviderActiveStart: November 07, 2023 End: November 06eborah C Scally , APRNActiveStart: November 07, 2023 End: November 07, 2023 Team Status: Active Member Role Status Dates Sukh Dela Cruz MD Primary Care Provide r, Attending Provider Active Start: July 12, 2023 Team Status: Inactive Member Role Status Susan Dela Cruz MD Primary Care Provide r, Attending Provider Active Start: July 19, 2023 End: July 19, 2023 Team Status: Inactive Member Role Status Susan Dela Cruz MD Primary Care Provider Active Start: July 28, 2023 End: July 27ebedinsonh C Adelely , APRNAttending ProviderActiveStart: July 28, 2023 End: July 28, 2023 Team Status: Inactive Member Role Status Susan Dela Cruz MD Attending Provider Active St art: April 15, 2023 End: April 15, 2023 Team Status: Inactive Member Role Status Dates Cathie Vargas , DRYWALL CARRIER Attending Provider Active Start: May 25, 2023 End: May 25, 2023 Team Status: Active Member Role Status Susan Dela Cruz MD Primary Care Provide r, Attending Provider Active Start: May 25, 2023 Team Status: Inactive Member Role Status Susan Dela Cruz MD Primary Care Provider Active Start: June 14, 2023 End: June 14sherman Collier RNAttending ProviderActiveStart: June 14, 2023 End: June 14ebedinsonh C Scally , APRNActiveStart: June 14, 2023 End: June 14, 2023 [...] Team Status: Inactive Member Role Status Dates Sukh Dela Cruz MD Primary Care Provider Active Start: December 13, 2023 End: December 12eborah C Scally , APRNAttending ProviderActiveStart: December 13, 2023 End: December 13, 2023 Team Status: Inactive Member Role Status Dates Sukh Dela Cruz MD Primary Care Provider Active Start: January 17, 2024 End: January 16eborah C Adelely , APRNActiveStart: January 17, 2024 End: January 16rittany Frangella , RNAttending ProviderActiveStart: January 17, 2024 End: January 17, 2024 Team Status: Inactive Member Role Status Dates Sukh Dela Cruz MD Primary Care Provider Active Start: February 23, 2024 End: February 22eborah C Scally , APRNAttending ProviderActiveStart: February 23, 2024 End: February 23, 2024 Team Status: Inactive Member Role Status Dates Cathie Vargas , DRYWALL CARRIER Attending Provider Active Start: February 23, 2024 End: February 23, 2024 Team Status: Active Member Role Status Dates Brittney Drummond CMA Attending Provider Active Start: February 28, 2024 Team Status: Inactive Member Role Status Dates Sukh Dela Cruz MD Primary Care Provider Active Start: December 13, 2024 End: December 13, 2024Deborah C Adelely , APRNAttending ProviderActiveStart: December 13, 2024 End: December 13, 2024 [...] BE BASED ON THE PRIMARY CLINICAL RECORDS. [facility]. provides no warranty or guarantee of the accuracy or completeness of information in this document.
== END 2025-03-07 09:41 | disposition home or self-care (01) ==
LOC: RAD 09:40
PROVIDERS: PCP Family Medicine; Visit Provider Podiatrist Foot & Ankle Surgery
DX: M79.672 Pain in left foot (principal); M85.88 Other specified disorders of bone density and structure, other site
CPT/HCPCS: 73630

== ENCOUNTER 2025-04-18 10:54 | Outpatient (OUT) | payer MEDICARE, MEDICAID, SELFPAY ==
--- OUTSIDE RECORDS SUMMARY | 2025-04-05 13:45 | XMS_ITS | Encounter Summary ---
Author Organization [facility] Address [address] [place] [address] Care Team Providers Care Hotel Desk Clerk Name Role Phone Shayy Ly MD Primary Care Provider [phone] Encounter Details DateTypeDepartmentCare Team (Latest Contact Info)Abqbndpgrqt38/05/2025 1:45 PM ESTOffice Visit [facility] [address] [place] [address] Zane Navarrete MD [address] [facility] [address] [facility] [place] [address] Coronary artery disease involving [place] coronary artery of [place] heart without angina pectoris (Primary Dx); Primary hypertension; Mixed hyperlipidemia Social History Tobacco UseTypesPacks/DayYears UsedDateSmoking Tobacco: NeverSmokeless Tobacco: NeverAlcohol UseStandard Drinks/WeekCommentsNot Currently0 (1 standard drink = 0.6 oz pure alcohol)[place] Safety & EnvironmentAnswerDate RecordedFear of Current or Ex-PartnerNot on file06/23/2023Emotionally AbusedNot on file06/23/2023hysically AbusedNot on file06/23/2023Sexually AbusedNot on file06/23/2023hysically or Sexually AbusedNot on file06/23/2023CommentsUnknownSex and Gender InformationValueDate RecordedSex Assigned at AafnnJzhsly24/30/2025 10:51 AM EDT Legal NzhQalqfk60/29/2022 10:02 PM EDTGender XzstzndsFowjfe13/30/2025 10:51 AM EDTSexual OrientationHeterosexual or Ivyphdau12/30/2025 10:51 AM EDTdocumented as of this encounter Last Filed Vital Signs Vital SignReadingTime TakenCommentsBlood Zsfvvple837/7504/05/2025 1:52 PM EST Qxyhk296904/05/2025 1:52 PM ESTTemperature--Respiratory Rate--Oxygen Csuxwegozc60% 04/05/2025 1:52 PM ESTInhaled Oxygen Concentration--Etjruh834 kg (225 lb) 04/05/2025 1:52 PM IAOMhihty465.5 cm (5' 2 )04/05/2025 1:52 PM ESTBody Mass Index41.15106/06/2024 1:52 PM ESTdocumented in this encounter Progress Notes * Zane Navarrete MD - 04/05/2025 1:45 PM EST Images from the original note were not included. [place] [facility] Subjective Zoila Ramos is a 55 y.o. year old female patient being seen for a 6 month follow up, to establish care with a new attending. Patient had a a toe and a half removed and is still having lots of pain. Patient denies chest pain, SOB/VILLAGOMEZ, dizziness/lightheaded, racing heart/palpitations. Problem List[1] Family History[2] Social History[3] HPI Zoila is seen in follow-up. This is the first time I meet her. She used to follow with Dr. Nacho Christensen from our group. She is a 55-year-old woman with history of coronary artery disease, hypertension and hyperlipidemia. She had stenting of the proximal RCA and mid circumflex in 2004. she denies chest pain, shortness of breath, palpitations, dizziness, syncope and leg edema. she hasgood exercise tolerance. There is no claudication. Her main limitation is from being in a wheelchair due to having had surgeries on her toe after sustaining an infection that happened after wearing new shoes. Review of Systems Constitutional: Negative. Objective Visit Vitals BP 128/75 (BP Location: Right arm, Patient Position: Sitting) Pulse 88 Ht 1.575 m (5' 2 ) Wt 102 kg (225 lb) SpO2 96% BMI 41.15 kg/m?? Smoking Status Never BSA 2.11 m?? Physical Exam Constitutional: Appearance: She is well-developed. She is obese. She is not ill-appearing. HENT: Head: Normocephalic and atraumatic. Nose: Nose normal. Eyes: General: No scleral icterus. Pupils: Pupils are equal, round, and reactive to light. Neck: Thyroid: No thyromegaly. Vascular: No JVD. Cardiovascular: Rate and Rhythm: Normal rate and regular rhythm. Pulses: Radial pulses are 2+ on the right side and 2+ on the left side. Heart sounds: Normal heart sounds. No murmur heard. No friction rub. No gallop. Pulmonary: Effort: Pulmonary effort is normal. No respiratory distress. Breath sounds: Normal breath sounds. No wheezing or rales. Chest: Chest wall: No tenderness. Abdominal: General: Bowel sounds are normal. There is no distension. Palpations: Abdomen is soft. Tenderness: There is no abdominal tenderness. Musculoskeletal: General: No swelling. Cervical back: Neck supple. Comments: in wheelchair Feet: Comments: Left foot in cast Skin: General: Skin is warm and dry. Neurological: General: No focal deficit present. Mental Status: She is alert and oriented to person, place, and time. Psychiatric: Mood and Affect: Mood normal. Behavior: Behavior is cooperative. Judgment: Judgment normal. Allergies Allergies[4] Medications Current Medications[5] Recent Labs Blood testing 08/19/2024: Hemoglobin 13.1, platelets 273, Potassium 4.1, BUN 13, creatinine 0.77, eGFR more than 70, LFTs normal. blood testing 06/12/2024: Triglycerides 68, cholesterol 124, LDL 67, HDL 43 Imaging and other tests Echocardiogram 06/26/2024: CONCLUSION: 1. Normal left ventricular size with hyperdynamic systolic function. LVEF is 75%. 2. Lumason contrast was administered for better endocardial border definition. Echocardiogram 06/21/2024: 1. Global left ventricular systolic function is at the lower limits of normal. Estimated LVEF is 50%. There is hypokinesis of the distal anterior septum and apex. Echocardiographic contrast can provide better visualization of segmental wall motion. 2. Normal right ventricular size and systolic function. 3. No significant valvular dysfunction. 4. Unable to assess right-sided pressures due to lack of measurable tricuspid regurgitation. Echocardiogram: 05/05/2017 Left Ventricle: Global left ventricular systolic function is normal (Visually estimated EF 65-70%).The left ventricle is normal size. No regional wall motion abnormality. Interventricular septal thickness is increased in the proximal portion. Right Ventricle: The right ventricle is normal in size. Normal right ventricular systolic function.Doppler studies suggest normal right sided pressures. Left [...] The root is normal in size. The ascending aorta is normal in size. The aortic arch is normal in size. The descending aorta is normal in size. Pericardium: No pericardial effusion. Coronary angiography: 07/05/2009 Left ventricle: Ejection fraction is 60%. There is 1+ mitral regurgitation. Regional wall motion isnormal. Coronary arteries: Left main coronary artery: No significant stenosis Left anterior descending coronary artery: This is a moderate sized vessel with diffuse luminal irregularities. Left circumflex coronary artery: This is a moderate sized vessel with diffuse luminal irregularities. A previously placed stent in the mid segment is patent. Right coronary artery: This is a moderatesized vessel with diffuse luminal irregularities. The previously placed proximal stent is patent there does appear to be a 20% in-stent restenosis in the distal stent Coronary angiography: 03/22/2005 Severe, hemodynamically significant, single-vessel coronary artery disease. Successful angioplasty and stent placement in the right coronary artery Normal left ventricular systolic function Assessment/Plan Diagnoses and all orders for this visit: Coronary artery disease involving [place] coronary artery of [place] heart without angina pectoris Primary hypertension Mixed hyperlipidemia she is doing well from a cardiac perspective. She has no angina no heart failure symptoms. Her blood pressure and heart rate are well-controlled. Her most recent lipid in June 2024 shows LDL adequately controlled. I reassured her. I will continue current cardiac medications. We will see her in follow-up in 1 year. Follow up in about 1 year (around 04/05/2026). Zane Navarrete MD [1] Patient Active Problem List Diagnosis Coronary arteriosclerosis in [place] artery Old myocardial infarction Sinusitis Type 1 diabetes mellitus (CMS/HCC) Infarction of lung due to iatrogenic pulmonary embolism (CMS/HCC) Asthma Coronary atherosclerosis Essential hypertension Mixed hyperlipidemia Gangrene of toe of left foot (CMS/HCC) Other fracture of lower end of right ulna, subsequent encounter for closed fracture with routine healing BMI 37.0-37.9, adult Class 3 severe obesity with body mass index (BMI) of 40.0 to 44.9 in adult (CMS/HCC) Fracture Gastroesophageal reflux disease Gluteal tendinitis, right hip H/O amputation of lesser toe History of myocardial infarction Long-term insulin use (CMS/HCC) Right ankle pain Right wrist fracture Vitamin D deficiency Dietary counseling and surveillance Amputation stump pain (CMS/HCC) Gangrene (CMS/HCC) Other acute osteomyelitis, left ankle and foot ([facility]/HCC) Other chronic osteomyelitis, left ankle and foot (CMS/HCC) Polyneuropathy due to type 2 diabetes mellitus ([facility]/HCC) Type 2 diabetes mellitus with foot ulcer ([facility]/HCC) Ulcer of left foot ([facility]) [2] No family history on file. [3] Social History Tobacco Use Smoking status: Never Smokeless tobacco: Never Substance Use Topics Alcohol use: Not Currently Drug use: Never [4] Allergies Allergen Reactions Cat Dander Unknown Codeine Dog Dander Unknown Latex Other Semaglutide Unknown Tomato Other Tomato sauce Insulin Lispro Rash [5] Current Outpatient Medications: albuterol 90 mcg/actuation inhaler, INHALE TWO PUFFS EVERY FOUR HOURS, NEEDED, Disp: , Rfl: aspirin 81 mg EC tablet, Take 1 tablet every day by oral route as directed for 90 days., Disp: , Rfl: atorvastatin (Lipitor) 40 mg tablet, Take 1 tablet (40 mg) by mouth in the morning., Disp: 90 tablet, Rfl: 3 carvedilol (Coreg) 6.25 mg tablet, Take 1 tablet (6.25 mg) by mouth with breakfast and with eveningmeal., Disp: 180 tablet, Rfl: 3 esomeprazole (NexIUM) [address] capsule, Take 1 capsule by mouth in the morning., Disp: , Rfl: famotidine (Pepcid) 20 mg tablet, Take 20 mg by mouth at bedtime. (Patient taking differently: Take20 mg by mouth if needed.), Disp: , Rfl: fluticasone (Flonase) 50 mcg/actuation nasal spray, Administer 2 sprays into each nostril in the morning., Disp: , Rfl: glipiZIDE (Glucotrol) 10 mg tablet, TAKE 2 (TWO) TABLET BY MOUTH TWO TIMES DAILY (Patient taking differently: 10 mg. 5 mg am 5 mg pm), Disp: , Rfl: HumaLOG KwikPen Insulin 200 unit/mL (3 mL) insulin pen injection pen, PLEASE SEE ATTACHED FOR DETAILED DIRECTIONS, Disp: , Rfl: ibuprofen 600 mg tablet, Take 1 tablet by mouth every 8 (eight) hours if needed for pain., Disp: , Rfl: insulin glargine (Toujeo SoloStar [...] MOUTH TWO TIMES DAILY, Disp: , Rfl: montelukast (Singulair) 10 mg tablet, Take 1 tablet every day by oral route for 30 days., Disp: , Rfl: nitroglycerin (Nitrostat) 0.4 mg SL tablet, Place 1 tablet (0.4 mg) under the tongue every 5 (five)minutes if needed for chest pain. PLACE 1 TABLET UNDER TONGUE EVERY 5 MINS, UP TO 3 DOSES NEEDEDFOR CHEST PAIN, Disp: 75 tablet, Rfl: 2 budesonide-formoteroL (Symbicort) 160-4.5 mcg/actuation inhaler, , Disp: , Rfl: hydroCHLOROthiazide (Microzide) 12.5 mg capsule, TAKE 1 CAPSULE (12.5 MG) BY MOUTH IN THE MORNING. (Patient not taking: Reported on 04/05/2025), Disp: 90 capsule, Rfl: 3 metoprolol tartrate (Lopressor) 25 mg tablet, Take 1 tablet (25 mg) by mouth in the morning and at bedtime. (Patient not taking: Reported on 04/05/2025), Disp: 180 tablet, Rfl: 3 documented in this encounter Plan of Treatment Not on file documented as of this encounter Visit Diagnoses Diagnosis Coronary artery disease involving [place] coronary artery of [place] heart without angina pectoris- Primary Primary hypertension Unspecified essential hypertension Mixed hyperlipidemia documented in this encounter Care Teams Team MemberRelationshipSpecialtyStart DateEnd Date Shayy Ly MD [address] [place] [address] #A PCP - General05/19/22documented as of this encounter
--- OUTSIDE RECORDS SUMMARY | 2025-04-18 11:02 | XMS_ITS | Clinical Summary ---
Author Organization [facility] Address [address] [place] [address] Care Team Providers Care Stamp Presser Name Role Phone Shayy Ly MD Primary Care Provider [phone] Allergies Active AllergyReactionsCriticalityNoted DateCommentsCat JzzrywDrgryby34/14/2025 Lhmcnwi15/23/2022Dog QukudzGxjuthj57/14/2025Insulin DqnrviBhodIqy88/13/2025Latex Other04/19/20142883DcqkhbvuvsnLsfximt91/25/8472SiupayFglbt39/13/2025 Tomato sauce Medications MedicationSigDispense QuantityRefillsLast FilledStart DateEnd [...] (Lopressor) 25 mg tablet Indications:Coronary arteriosclerosis in [place] artery,Essential hypertension Take 1 tablet (25 mg) by mouth in the morning and at bedtime. 180 tablet 3Active Additional Information Patient not taking.Reported on 04/05/2025 atorvastatin (Lipitor) 40 mg tablet Indications:Atherosclerosis of [place] coronary artery of [place] heart without angina pectoris,Mixed hyperlipidemiaTake 1 tablet (40 mg) by mouth in the morning. 90 tablet 3Active magnesium oxide (Mag-Ox) 400 mg tablet 400 mg in the morning.Active hydroCHLOROthiazide (Microzide) 12.5 mg capsule Indications:Essential hypertensionTAKE 1 CAPSULE (12.5 MG) BY MOUTH IN THE MORNING. 90 capsule 3Active Additional Information Patient not taking.Reported on 04/05/2025 famotidine (Pepcid) 20 mg tablet Take 20 mg by mouth at bedtime.4Active ibuprofen 600 mg tablet Take 1 tablet by mouth every 8 (eight) hours if needed for pain.4Active HumaLOG KwikPen Insulin 200 unit/mL (3 mL) insulin pen injection pen PLEASE SEE ATTACHED FOR DETAILED MRSGFNWNCI80/13/2025Active carvedilol (Coreg) 6.25 mg tablet Indications:Essential hypertensionTake [...] NEEDED FOR CHEST PAIN 75 tablet 5Active fluticasone (Flonase) 50 mcg/actuation nasal spray Administer 2 sprays into each nostril in the morning.5Active Active Problems ProblemNoted DateDiagnosed DateAmputation stump pain04/05/20258245Dsfxssxd36/05/2025 Other acute osteomyelitis, left ankle and foot04/05/2025Other chronic osteomyelitis, left ankle and foot04/05/2025Polyneuropathy due to type 2 diabetes lwppuout55/05/2025Type 2 diabetes mellitus with foot ulcer04/05/2025 Ulcer of left foot04/05/2025MI 37.0-37.9, adult02/28/2025lass 3 severe obesity with body mass index (BMI) of 40.0 to 44.9 in adult02/28/20254840Kzgolvcb27/30/2025 Gastroesophageal reflux erfermv3102/28/2025Gluteal tendinitis, right hip02/28/2025 H/O amputation of lesser toe02/28/2025 Overview (02/28/2025): left foot History of myocardial hapcqgihwc55/30/2025Long-term insulin use02/28/2025Right ankle pain02/28/2025Right wrist wsbplcaf96/30/2025Vitamin D mdpfaqbjib06/30/2025 Dietary counseling and pwkclmccxuxh02/30/2025Other fracture of lower end of right ulna, subsequent encounter for closed fracture with routine healing 06/19/2024Gangrene of toe of left foot06/14/2024Mixed bsgpcmemwgqvlr77/31/2023 Essential vwvplhntevkb31/18/2023 Overview (05/19/2022): Images from the original note were not included. Trig 77 Assessment & Plan (05/19/2022 10:44 AM EST): Hypertension is uncontrolled, Will add lisinopril 5 mg po daily, and continue metoprolol Goal b/p 130/80 or less, monitor for dry persistent cough- call office for any concerns, repeat BMPin 1 week RTC 1 month to review B/P log Qopqmrxdz82/23/2022oronary arteriosclerosis in [place] mujmfi6706/30/2012 Assessment & Plan (05/19/2022 10:43 AM EST): Coronary artery disease is stable, no concerning symptoms continue risk factor modifications- heart healthy diet, regular exercise as tolerated and continue all medications. Old myocardial sposkzvdkh17/01/2013Type 1 diabetes ykszmjvs85/01/2013Infarction of lung due to iatrogenic pulmonary ajyciddf91/01/7528Dbwdlp16/01/2013Coronary bmelbtphopaojmt40/01/2013 Encounters DateTypeDepartmentCare ThkqOipcjnzgltb96/05/2025 1:45 PM ESTOffice Visit [facility] [place] [address] [place] [address] Zane Navarrete MD Coronary artery disease involving [place] coronary artery of [place] heart without angina pectoris (Primary Dx); Primary hypertension; Mixed ccwjpwlntrvyew00/07/2025Refill [facility] [address] [place] [id number] Becka Christensen MD Chest pain, unspecified typefrom Last 3 Months Family History RelationNameStatusCommentsFatherDeceasedMotherDeceased Social History Tobacco UseTypesPacks/DayYears UsedDateSmoking Tobacco: NeverSmokeless Tobacco: Never Tobacco Cessation:Counseling Given: Not Answered Alcohol UseStandard Drinks/WeekCommentsNot Currently0 (1 standard drink = 0.6 oz pure alcohol)AL Safety & EnvironmentAnswerDate RecordedFear of Current or Ex-PartnerNot on file06/23/2023Emotionally AbusedNot on file06/23/2023hysically AbusedNot on file06/23/2023Sexually AbusedNot on file06/23/2023hysically or Sexually AbusedNot on file06/23/2023CommentsUnknownSex and Gender InformationValueDate RecordedSex Assigned at XkklhPlauei62/30/2025 10:51 AM EDT Legal YrvNljeym88/29/2022 10:02 PM EDTGender WexeclslEvuoav84/30/2025 10:51 AM EDTSexual OrientationHeterosexual or Ebcdrvkw66/30/2025 10:51 AM EDT Last Filed Vital Signs Vital SignReadingTime TakenCommentsBlood Tgnzqrdh631/7504/05/2025 1:52 PM EST Zugsz229704/05/2025 1:52 PM ESTTemperature--Respiratory Rate--Oxygen Abzavxsmyd34% 04/05/2025 1:52 PM ESTInhaled Oxygen Concentration--Fkafgu834 kg (225 lb) 04/05/2025 1:52 PM JSWEjqrhq009.5 cm (5' 2 )04/05/2025 1:52 PM ESTBody Mass Index41.15106/06/2024 1:52 PM EST Plan of Treatment Health MaintenanceDue DateLast DoneCommentsCT Qofrjhhgmrij1972Colonoscopy 1972Diabetes: Hemoglobin A1C1972FOBT1972Medicare Annual Wellness (AWV)1970 9157Xtfnbeikhwbag1972Diabetes: Retinopathy Screening 01/15/1982Depression Ddvkbvbbq66/16/1984Diabetes: Urine Protein Screening 01/15/1991Hepatitis B Vaccines (1 of 3 - 19+ 3-dose series)01/15/1991Pap Smear 01/15/1993Cervical Cancer Caehuysfa02/16/2002HPV/Bqvrbt5101/15/2002Mammogram 2012Pneumococcal Vaccine: Pediatrics (0 to 5 Years) and At-Risk Patients (6 to 64 Years) (2 of 2 - PPSV23, PCV20, or PCV21)/04/2015Zoster Vaccines (1 of 2)2COVID-19 Vaccine (2 - season)2024 10/21/2020Influenza Vaccine (#1)/05/2023, 02/14/2023, 02/01/2022, Additional history yngtxkCZK69/05/716807/5Colorectal Cancer Screening 06/06/2027FIT-DNA06/06/365971/5Adult Cwucwzj28/05/2024HIB VaccinesAged OutNo longer eligible based on patient's [...] age to complete this [place] [address] Care Teams Team MemberRelationshipSpecialtyStart DateEnd Date Shayy Ly MD [address] [place] [address] #A PCP - General05/19/22
--- OUTSIDE RECORDS SUMMARY | 2025-04-18 11:02 | XMS_ITS | Clinical Summary ---
Author Organization [employer] Address [id number] [address] [place] [address] Care Team Providers Care Silver Solution Mixer Name Role Phone Unavailable Primary Care Provider Unavailabl e Allergies Active AllergyReactionsCriticalityNoted ThvvIdjwbdbzYzdlyxj39/13/2025Insulin SsmnuxMtiiNsn86/13/5915Nwqgv81/13/0992Acwjxr23/13/2025 Tomato sauce Medications MedicationSigDispense QuantityRefillsLast FilledStart DateEnd [...] RecordedSex Assigned at BirthNot on fileLegal Sex Lapbki0806/13/2024 2:03 PM ESTGender IdentityNot on fileSexual OrientationNot on file Last Filed Vital Signs Vital SignReadingTime TakenCommentsBlood Nfuxnrzj963/8206/14/2024 10:21 AM EST Rfbdt335806/14/2024 10:21 AM JACBsmjnnlogti22.3 ??C (97.3 ??F)06/14/2024 10:21 AM ESTRespiratory Rate--Oxygen Ngtdijdjcm19%06/14/2024 10:21 AM ESTInhaled Oxygen Concentration--Qamlep95.7 kg (211 lb)06/14/2024 10:21 AM ELNQhaqkl227.5 cm (5' 2 )06/14/2024 10:21 AM ESTBody Mass Index38.59006/14/2024 10:21 AM EST Plan of Treatment Health MaintenanceDue DateLast DoneCommentsDepression Nqimhkart62/16/1984Tobacco Twnupntqz06/16/1984Adult BMI Follow Up Plan01/15/1990DTaP,Tdap and Td Vaccines (1 - Tdap)01/15/1991Pap Smear01/15/1993Zoster (Shingles) Vaccine (1 of 2) 01/15/2022Influenza Kuhzzck1412/31/2024dult BMI Haahnwpzq38 [employer] [place] [address] [place] [address]
--- OUTSIDE RECORDS SUMMARY | 2025-04-18 11:02 | XMS_ITS | Clinical Summary ---
Author Organization [facility] Address [address] [place] [address] Care Team Providers Care Passenger Car Upholsterer Apprentice Name Role Phone Unavailable Primary Care Provider Unavailabl e Family History Medical HistoryRelationNameCommentsDiabetesFatherHeart diseaseFatherHypertension FatherArthritisMotherDiabetesMotherHypertensionMotherRelationNameStatusComments FatherDeceasedMotherDeceased Social History Tobacco UseTypesPacks/DayYears UsedDateSmoking Tobacco: Never Assessed CommentsUnknownSex and Gender InformationValueDate RecordedSex Assigned at Not on fileLegal XxoLpqrhq58/15/2023 6:57 PM EDTGender IdentityNot on fileSexual OrientationNot on file Last Filed Vital Signs Vital SignReadingTime TakenCommentsBlood Vqrabnpq057/7404/ 12:00 PM EDT Pulse--Temperature--Respiratory Rate--Oxygen Saturation--Inhaled Oxygen Concentration--Wmwrou70.3 kg (210 lb)09/02/2022 12:00 PM COFPwyccd989.5 cm (5' 2 )09/02/2022 12:00 PM EDTBody Mass Index38.41009/02/2022 12:00 PM EDT Plan of Treatment Not on file Insurance
--- NOTE | 2025-04-18 11:06 | XR_ITS ---
The [address] [address] Patient Name: COLETTE DINH MRN: [id number] date: 1970 Sex: F Assigned Patient Location: [facility] Current Patient Location: [facility] Accession/Order Number: [id number] Exam Date: 04/18/2025 11:15 Report Date: 04/18/2025 11:43 At the request of: JORDYN SANCHEZ DPNegro Procedure: XR foot LT min 3V LEFT FOOT - 3 views CLINICAL DATA: Chronic left foot pain. Prior surgery COMPARISON: 03/07/2025 Weightbearing AP, lateral and oblique views were obtained. There is osteopenia. There is prior amputation of the second toe at the head of the proximal phalanx. There is also amputation of the third toe at the base of the proximal phalanx. There is no acute fracture or dislocation. Pes planus deformity is again noted with similar Charcot changes in the tarsal metatarsal region. There are no significant soft tissue abnormalities. XR/XR foot LT min 3V IMPRESSION: STABLE CHRONIC BONY CHANGES NO ACUTE BONY FINDINGS. Impression dictated by: Aliyah Nicole M.D. 04/18/2025 11:43 AM Dictation Location: [place] [address] Electronically authenticated by: [id number] Y Date: 04/18/2025 11:43
== END 2025-04-18 10:55 | disposition home or self-care (01) ==
LOC: RAD 11:00
PROVIDERS: PCP Family Medicine; Visit Provider Podiatrist Foot & Ankle Surgery
DX: M79.672 Pain in left foot (principal)
CPT/HCPCS: 73630